=== PATIENT | female | born 1955 | race Caucasian/White ===

== ENCOUNTER 2022-04-11 09:14 | Emergency (ER) | payer MEDICARE, SELFPAY ==
[2022-04-11 09:29] VITALS: PULSE 70; RESP 18; TEMP 36.8; O2SAT 95
[2022-04-11 09:30] VITALS: BP 130/41; PULSE 67; RESP 17; O2SAT 93
[2022-04-11] MEDS: dexamethasone 10 mg/mL INJ IM (09:41)
[2022-04-11] MEDS: orphenadrine 30 mg/mL Inj 2 mL 60 MG IM (09:41)
[2022-04-11] MEDS: ketorolac 30 mg/mL INJ IM (09:41)
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
[2022-04-11 11:31] VITALS: BP 104/49; PULSE 55; RESP 16; O2SAT 93
[2022-04-11 11:36] VITALS: PULSE 64; RESP 16; O2SAT 97
--- NOTE | 2022-04-14 10:33 | DCPLANNER ---
education general manager had message to speak with patient about getting established with a primary care physician. education general manager unable to reach patient at this time.
== END 2022-04-11 11:38 | disposition home or self-care (01) ==
PROVIDERS: Emergency Provider Family Medicine
DX: S39.012A Strain of muscle, fascia and tendon of lower back, initial encounter (principal); X50.0XXA Overexertion from strenuous movement or load, initial encounter; Z87.891 Personal history of nicotine dependence
CPT/HCPCS: 96372; 99284; J1100; J1885; J2360

== ENCOUNTER 2022-04-13 01:51 | Inpatient (IN) | payer MEDICARE, OTHER, SELFPAY ==
[2022-04-13] VITALS (47 sets, daily range): BP systolic 67–132; BP diastolic 40–94; PULSE 38–93; RESP 8–24; TEMP 36.8; O2SAT 81–99; BMI 24.9
--- NOTE | 2022-04-13 01:52 | XRR_ITS ---
PROCEDURE INFORMATION: Exam: XR Chest Exam date and time: 04/13/2022 2:44 AM Age: 67 years old Clinical indication: Pain; Chest pressure; Additional info: Cp TECHNIQUE: Imaging protocol: Radiologic exam of the chest. Views: 1 view. COMPARISON: No relevant prior studies available. FINDINGS: Lungs: Suggestion of mild peribronchial cuffing. Scattered fluffy pulmonary infiltrates concerning for pneumonia or pulmonary lesions. Mild bibasilar opacities may represent superimposition of breast shadows, inflammation, or infection. Pleural spaces: No large pleural effusion. No pneumothorax. Heart/Mediastinum: The cardiomediastinal silhouette appears grossly unremarkable. Vasculature: The thoracic aorta is tortuous and atherosclerotic. Bones/joints: Unremarkable. Other findings: No consolidative opacity. XR/XR chest 1V portable [id number] IMPRESSION: 1. Suggestion of mild peribronchial cuffing. 2. Scattered pulmonary infiltrates may represent pneumonia or pulmonary lesions. 3. Otherwise, no acute radiographic findings in the chest.
--- NOTE | 2022-04-13 01:52 | ECG_ITS ---
[facility] Test Date: 2022-04-13 Pat Name: Tosha Perry Department: Room: Gender: Female Area Development Consultant: : 1955 Requested By: Coral Oconnor Order Number: [id number] Mirela MD: Sherine Greene M.D. Measurements Intervals [place] Rate: 73 P: 75 OR: 154 QRS: 64 QRSD: 90 T: 54 QT: 402 QTc: 444 Interpretive Statements SINUS RHYTHM WITH OCCASIONAL SUPRAVENTRICULAR PREMATURE COMPLEXES No previous ECG available for comparison Electronically Signed On 04-14-2022 9:22:31 INDUSTRIAL MANUFACTURING TECHNICIAN by Sherine Greene M.D. [id number]
--- NOTE | 2022-04-13 01:57 | ED_ITS ---
HPI - Chest Pain General: Chief Complaint: Chest Pain Stated Complaint: CP, SOB Time Seen by Provider: 04/13/22 01:51 Source: patient and EMS Mode of arrival: EMS Limitations: no limitations History of Present Illness: 67-year-old female who is here by EMS she states she had chest pain along with back pain and a slight cough she does have chronic back pain and recently moved here does not have any pain management here. She denies any worsening proving factors she had some slight hypoxia here she is writhing around in bed yelling and has pain everywhere its hard to really distinguish where her pains actually at. Associated symptoms: Reports dyspnea; Deny abdominal pain, fever(s), nausea or vomiting Review of Systems Const: Denies: fever(s), chills, body aches or change in appetite Eyes: Denies: blurry vision or eye discomfort ENMT: Denies: throat pain or dental pain Card: Reports: chest pain Resp: Reports: dyspnea and non-productive cough GI: Denies: abdominal pain, nausea, vomiting or diarrhea : Denies: dysuria Musc: Denies: neck pain or back pain Skin/Breast: Denies: rash Neuro: Denies: headache(s) Psych: Denies: depression Jl/Lymph: Denies: easy bruising All/Imm: Denies: urticaria PFSH ED PFSH: Medical History Chronic back pain Social History Smoking and tobacco status: former smoker Alcohol intake: current Alcohol intake frequency: holidays/special occasions only Physical Exam Const: COMMON NORMALS: no acute distress and patient oriented x3 GENERAL APPEARANCE: anxious and ill appearing HENMT: COMMON NORMALS: normocephalic and atraumatic HEAD & SCALP: normocephalic and atraumatic Eye: COMMON NORMALS: Equal, round and reactive pupils present and EOMs intact bilaterally PUPIL: Yes Equal, round and reactive pupils present Neck/C-Spine: COMMON NORMALS: full ROM and supple Chest: COMMONS NORMALS: normal inspection of the chest and normal palpation of entire chest wall Resp: COMMON NORMALS: No retractions and No use of accessory muscles EFFORT & INSPECTION: Yes labored AUSCULTATION: rales Cardio: COMMON NORMALS: regular rate, regular rhythm and No murmurs present (Cardio) RATE: regular rate RHYTHM: regular rhythm GI: COMMON NORMALS: Normal to inspection, nondistended, normoactive bowel sounds present, Soft to palpation, non-tender and no masses PALPATION: Yes Soft to palpation Extremity: COMMON NORMALS: normal to inspection and full ROM Neuro: COMMON NORMALS: patient oriented x3, moves all extremities and no focal motor deficits Psych: COMMON NORMALS: mental status grossly normal, Normal thought process present and cooperative THOUGHT PROCESS: Normal thought process present Skin: COMMON NORMALS: no rashes or lesions noted and no wounds GENERAL SKIN EXAM: no rashes or lesions noted Course Vital Signs: Vital signs: Vital Signs Pulse Rate 69 04/13/22 05:11 Respiratory Rate 22 H 04/13/22 05:11 Blood Pressure 67/40 04/13/22 05:11 Pulse Oximetry 94 04/13/22 05:11 Oxygen Delivery Me thod 04/13/22 05:11 Oxygen Flow Rate 6 04/13/22 05:11 MDM - Chest Pain Medical Decision Making Patient presents here with chest and back pain originally patient was flopping in the bed and was unable to stay still for any IV placement I did have to sedate her for IV placement and then billable CT scanner had to give her Haldol as she was still screaming and moving in the room CT scan shows a multifocal pneumonia she is COVID-positive likely causing this she does have hypoxia spoke to the hospitalist will admit to ICU. Lab Data 04/13/22 03:56 04/13/22 02:06 Radiology Impressions Chest X-Ray 04/13/22 01:52 IMPRESSION: 1. Suggestion of mild peribronchial cuffing. 2. Scattered pulmonary infiltrates may represent pneumonia or pulmonary lesions. 3. Otherwise, no acute radiographic findings in the chest. Chest/Abdomen/Pelvis CT 04/13/22 02:47 IMPRESSION: 1. Scattered pulmonary infiltrates in both lungs compatible with multifocal pneumonia. 2. Small nodular opacities are noted, more prominent in the left lower lobe measuring approximally 1.1 cm. A short-term follow-up within 3 months is recommended for further evaluation according to Fleischner criteria. 3. Coronary atherosclerosis and small pericardial effusion. 4. Cardiomegaly. IMPRESSION: 1. Status post cholecystectomy. 2. Gastric distension. Please correlate with prior imaging and endoscopy if clinically warranted. 3. Thickening of the duodenal and the proximal bowel mehta may represent duodenitis and or enteritis in the appropriate clinical setting. 4. Suspected small left adrenal nodule. 5. Atherosclerotic calcifications of the abdominal aorta and its branches. 6. Distended urinary bladder. 7. Post kyphoplasty of the L4 and L5 vertebral bodies. Laboratory Results WBC 5.2 10^3/uL (4.0-10.0) 04/13/22 04:49 Corrected WBC Cancelled 04/13/22 03:56 RBC 3.69 10^6/uL (4.1-5.3) L 04/13/22 04:49 Hgb 9.0 g/dL (11.5-15.3) L 04/13/22 04:49 Hct 29.8 % (37.0-47.0) L 04/13/22 04:49 MCV 80.8 fl (81-99) L 04/13/22 04:49 MCH 24.4 pg (28.0-34.0) L 04/13/22 04:49 MCHC 30.2 g/dL (30.0-36.0) 04/13/22 04:49 RDW 17.7 % (12.1-15.1) H 04/13/22 04:49 Plt Count 257 10^3/cmm (130-400) 04/13/22 04:49 MPV 9.7 fL (7.4-10.4) 04/13/22 04:49 Gran % Cancelled 04/13/22 03:56 Neut % (Auto) 79.7 % 04/13/22 04:49 Lymph % (Auto) 16.4 % 04/13/22 04:49 [place] % (Auto) 3.5 % 04/13/22 04:49 Eos % (Auto) 0.2 % 04/13/22 04:49 Baso % (Auto) 0.0 % 04/13/22 04:49 Neut # (Auto) 4.14 10^3/uL (1.8-7.7) 04/13/22 04:49 Lymph # (Auto) 0.9 10^3/uL (0.8-4.8) 04/13/22 04:49 [place] # (Auto) 0.2 10^3/uL (0.2-0.9) 04/13/22 04:49 Eos # (Auto) 0.0 10^3/uL (0.0-0.8) 04/13/22 04:49 Baso # (Auto) 0.0 10^3/uL (0.0-0.1) 04/13/22 04:49 Absolute Gran (auto) Cancelled 04/13/22 03:56 Nucleated RBC % (auto) 0 % 04/13/22 04:49 Nucleated RBCs # 0.0 /100WBC 04/13/22 04:49 PT 12.50 SECONDS (12.1-14.9) 04/13/22 03:56 INR 0.90 (0.8-1.2) 04/13/22 03:56 Specimen Type Arterial 04/13/22 04:51 Sample Site Brachial, right 04/13/22 04:51 ABG pH 7.37 (7.35-7.45) 04/13/22 04:51 ABG pCO2 42.1 mmHg (35-45) 04/13/22 04:51 ABG pO2 62.8 mmHg (80.0-100.0) L 04/13/22 04:51 ABG HCO3 24.3 mmol/L (22-26) 04/13/22 04:51 ABG Base Excess -1.0 mmol/L (-2.0-2.0) 04/13/22 04:51 Shahzad Test N/a 04/13/22 04:51 Hematocrit 26.4 % (37-47) L 04/13/22 04:51 O2 Delivery Device Nc 04/13/22 04:51 O2 Liters/Min 6.0 % 04/13/22 04:51 FiO2 45.0 % 04/13/22 04:51 Secondary School Registrar ID Alewe 04/13/22 04:51 Sodium 140 mmol/L (136-145) 04/13/22 02:06 Potassium 3.3 mmol/L (3.5-5.1) L 04/13/22 02:06 Chloride 101 mmol/L (98-107) 04/13/22 02:06 Carbon Dioxide 23 mmol/L (22-29) 04/13/22 02:06 Anion Gap 19.3 (5-19) H 04/13/22 02:06 BUN 45 mg/dL (8-23) H 04/13/22 02:06 Creatinine 2.4 mg/dL (0.5-0.9) H 04/13/22 02:06 GFR Calculation 20.1 mL/min (90-130) L 04/13/22 02:06 Glucose 95 mg/dL (65-115) 04/13/22 02:06 Calculated Osmolality 301 mOsm/kg (285-295) H 04/13/22 02:06 Calcium 8.4 mg/dL (8.5-10.5) L 04/13/22 02:06 Total Bilirubin 0.2 mg/dL (0.15-1.2) 04/13/22 02:06 AST 33 U/L (0-32) H 04/13/22 02:06 ALT 16 U/L (0-33) 04/13/22 02:06 Alkaline Phosphatase 99 U/L (35-105) 04/13/22 02:06 Troponin T Baseline 31 ng/L (0-10) H 04/13/22 02:06 NT-Pro-B Natriuret Pep 2247 pg/mL (0-125) H 04/13/22 02:56 Total Protein 7.1 g/dL (6.6-8.7) 04/13/22 02:06 Albumin 3.8 g/dL (3.5-5.2) 04/13/22 02:06 Globulin 3.3 g/dL (1.3-4.6) 04/13/22 02:06 Influenza Type A Ag negative (Negative) 04/13/22 04:15 Influenza Type B Ag negative (Negative) 04/13/22 04:15 SARS-CoV-2 Ag (Rapid) positive (Negative) 04/13/22 04:15 Critical Care Time Critical Care Time: Critical Care Time: Yes Total Critical Care Time: 35 Attestation: The high probability of a clinically significant, sudden or life threatening deterioration of the patient's resp system(s) required my full and direct attention, intervention and personal management. The critical care time is as shown. This time is in addition to time spent performing any reported procedures but includes the following: [x] Data and vital sign review and interpretation [x] Patient assessment, examination and intervention [x] Documentation [x] Medication orders and management Discharge Plan Discharge Patient Disposition: Admitted As Inpatient Admit Provider: Bernard Ray Clinical Impression: COVID-19, Acute respiratory failure with hypoxemia Condition: Stable Coding Level of Care Code ED Dietitian for Chg Fwd Exam Comprehensive
[2022-04-13] MEDS: LORazepam 2 mg/mL INJ 1 mL IM (02:11)
[2022-04-13] MEDS: ondansetron 2 mg/ML SDV 2 mL 4 MG IVP (02:19)
[2022-04-13] MEDS: HYDROmorphone 1 mg/mL INJ 1 mL 0.5 MG IVP (02:30)
[2022-04-13 02:33] LABS: Alanine Aminotransferase 16 U/L (0-33); Albumin Level 3.8 g/dL (3.5-5.2); Alkaline Phosphatase 99 U/L (35-105); Anion Gap 19.3 (5-19); Aspartate Amino Transferase 33 U/L (0-32); Blood Urea Nitrogen 45 mg/dL (8-23); Calcium 8.4 mg/dL (8.5-10.5); Carbon Dioxide 23 mmol/L (22-29); Chloride 101 mmol/L (98-107); Globulin 3.3 g/dL (1.3-4.6); Glomerular Filtration Rate 20.1 mL/min (90-130); Glucose 95 mg/dL (65-115); Osmolality Calculated 301 mOsm/kg (285-295); Potassium 3.3 mmol/L (3.5-5.1); Sodium 140 mmol/L (136-145); Total Bilirubin 0.2 mg/dL (0.15-1.2); Total Protein 7.1 g/dL (6.6-8.7)
[2022-04-13 02:35] LABS: Troponin(5th) Baseline 31 ng/L (0-10)
--- NOTE | 2022-04-13 02:47 | CTR_ITS ---
PROCEDURE INFORMATION: Exam: CT Chest Without Contrast; Diagnostic Exam date and time: 04/13/2022 3:00 AM Age: 67 years old Clinical indication: Abdominal pain; Generalized; Chest pressure; Patient HX: W/o contrast - creat 2.4. PT sedated due to combativeness. New PT - HX unknown; Additional info: Cp TECHNIQUE: Imaging protocol: Diagnostic computed tomography of the chest without contrast. Radiation optimization: All CT scans at this facility use at least one of these dose optimization techniques: automated exposure control; mA and/or kV adjustment per patient size (includes targeted exams where dose is matched to clinical indication); or iterative reconstruction. COMPARISON: CR (CHEST, ) 04/13/2022 2:44 AM RADIATION DOSE METRICS: Total DLP (mGy-cm): 817.12 FINDINGS: Lungs: Diffuse small pulmonary infiltrates throughout both lungs compatible with multifocal pneumonia. There is a more prominent nodular opacity in the left lower lobe measuring approximately 1.1 cm, (series 3, image 36). Pleural spaces: Unremarkable. No pneumothorax. No pleural effusion. Heart: Small pericardial effusion measuring 4 mm, (series 3, image 38). There is cardiomegaly and left atrial enlargement. Coronary arteries: Extensive atherosclerotic disease of the coronary arteries. Lymph nodes: Small mediastinal lymph nodes are nonspecific. Vasculature: There are atherosclerotic calcifications of the aortic arch and origin of the arch vessels. Mild calcifications of the aortic root and aortic valve leaflets. The thoracic aorta is tortuous and atherosclerotic. Bones/joints: There are degenerative changes of the thoracic spine. There are degenerative changes of the shoulder joints. Soft tissues: Unremarkable. PROCEDURE INFORMATION: Exam: CT Abdomen And Pelvis Without Contrast Exam date and time: 04/13/2022 3:00 AM Age: 67 years old Clinical indication: Abdominal pain; Generalized; Chest pressure; Patient HX: W/o contrast - creat 2.4. PT sedated due to combativeness. New PT - HX unknown; Additional info: Cp TECHNIQUE: Imaging protocol: Computed tomography of the abdomen and pelvis without contrast. Radiation optimization: All CT scans at this facility use at least one of these dose optimization techniques: automated exposure control; mA and/or kV adjustment per patient size (includes targeted exams where dose is matched to clinical indication); or iterative reconstruction. COMPARISON: CR (CHEST, ) 04/13/2022 2:44 AM RADIATION DOSE METRICS: Total DLP (mGy-cm): 817.12 FINDINGS: Liver: Mild fatty changes of the liver. No hepatic focal lesions. Gallbladder and bile ducts: Status post cholecystectomy. Pancreas: Mild atrophy of the pancreas. Spleen: The spleen appears grossly unremarkable. Adrenal glands: The adrenal glands appear grossly unremarkable although there is a suspected left adrenal nodule measuring approximately 1.6 by 1.1 cm, (series 9, image 44). Kidneys and ureters: Normal. No hydronephrosis. Stomach and bowel: The stomach is distended with food particles and fluid. The proximal small bowel contains fluid but no evidence of significant small-bowel dilation. Mild thickening of the duodenal mehta. Mild thickening of the proximal bowel mehta. The large bowel is nondistended. Appendix: No evidence of appendicitis. Intraperitoneal space: Unremarkable. No free air. No significant fluid collection. Vasculature: There are atherosclerotic calcifications of the abdominal aorta and its branches. Lymph nodes: Unremarkable. No enlarged lymph nodes. Urinary bladder: Markedly distended urinary bladder. Reproductive: The uterus is not visualized. Bones/joints: There are advanced degenerative changes of the lumbar spine, worse at L2-L3 where there is mild retrolisthesis of L2 on L3 and decreased disc space height and disc vacuum phenomenon. Kyphoplasty changes noted at L4 and L5 vertebral bodies. Soft tissues: Unremarkable. CT/[place] [id number] IMPRESSION: 1. Scattered pulmonary infiltrates in both lungs compatible with multifocal pneumonia. 2. Small nodular opacities are noted, more prominent in the left lower lobe measuring approximally 1.1 cm. A short-term follow-up within 3 months is recommended for further evaluation according to Fleischner criteria. 3. Coronary atherosclerosis and small pericardial effusion. 4. Cardiomegaly. IMPRESSION: 1. Status post cholecystectomy. 2. Gastric distension. Please correlate with prior imaging and endoscopy if clinically warranted. 3. Thickening of the duodenal and the proximal bowel mehta may represent duodenitis and or enteritis in the appropriate clinical setting. 4. Suspected small left adrenal nodule. 5. Atherosclerotic calcifications of the abdominal aorta and its branches. 6. Distended urinary bladder. 7. Post kyphoplasty of the L4 and L5 vertebral bodies.
[2022-04-13] MEDS: sodium chloride 0.9% 1,000 ML 999 ML IV (03:00)
[2022-04-13] MEDS: haloperidol inj 5 mg/mL INJ 1 mL IVP (03:00)
[2022-04-13 03:55] LABS: NT Pro B Type Natriuretic Pept 2247 pg/mL (0-125)
--- NOTE | 2022-04-13 04:32 | ECG_ITS ---
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 Measurements Intervals [place] Rate: 77 P: 79 MI: 150 QRS: 77 QRSD: 88 T: 73 QT: 378 QTc: 428 Interpretive Statements SINUS RHYTHM WITH SINUS ARRHYTHMIA Compared to ECG 04/13/2022 02:08:45 No significant changes Electronically Signed On 04-14-2022 20:39:16 ASPHALT DISTRIBUTOR OPERATOR by Sherine Greene M.D. [email or web address] ohio regional [email or web address]/store/OM/[id number]
[2022-04-13 04:39] LABS: Influenza A by IFA negative (Negative); Influenza B by IFA negative (Negative)
[2022-04-13 04:40] LABS: SARS Covid-2 Antigen positive (Negative)
[2022-04-13 04:55] LABS: Eosinophils % 0.2 %; Hematocrit 29.8 % (37.0-47.0); Lymphocytes # 0.9 10^3/uL (0.8-4.8); Lymphocytes % 16.4 %; Mean Corpuscular HGB Conc 30.2 g/dL (30.0-36.0); Mean Corpuscular Hemoglobin 24.4 pg (28.0-34.0); Mean Corpuscular Volume 80.8 fl (81-99); Mean Platelet Volume 9.7 fL (7.4-10.4); Monocytes # 0.2 10^3/uL (0.2-0.9); Monocytes % 3.5 %; Neutrophils # 4.14 10^3/uL (1.8-7.7); Neutrophils % 79.7 %; Nucleated Red Blood Cells % 0 %; Platelet Count 257 10^3/cmm (130-400); Red Blood Count 3.69 10^6/uL (4.1-5.3); Red Cell Distribution Width 17.7 % (12.1-15.1); White Blood Count 5.2 10^3/uL (4.0-10.0)
[2022-04-13] MEDS: cefTRIAXone 1,000 MG in sodium chloride 0.9% (plus) 50 ML 100 MG IV (05:02)
[2022-04-13 05:03] LABS: ABG PCO2 42.1 mmHg (35-45); ABG PH Result 7.37 (7.35-7.45); Arterial Blood Gas Hematocrit 26.4 % (37-47); Blood Gas Sample Site Brachial, right; Blood Gas Sample Type Arterial; HCO3 ABG 24.3 mmol/L (22-26); Oxygen Device NC; PO2 ABG 62.8 mmHg (80.0-100.0)
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
[2022-04-13] MEDS: azithromycin 500 MG in sodium chloride 0.9% 250 ML 250 MG IV (05:59)
[2022-04-13 06:08] LABS: NT Pro B Type Natriuretic Pept 2121 pg/mL (0-125); Procalcitonin 0.37 ng/mL (0-0.5)
[2022-04-13 06:18] LABS: C Reactive Protein 10.4 mg/L (0.0-4.9)
[2022-04-13 06:40] LABS: Troponin 5 2HR 32.12 ng/L (0-10)
[2022-04-13 06:42] LABS: Troponin 5 2HR Delta 1.12 ABS# (0-10)
[2022-04-13 06:54] LABS: Erythrocyte Sedimentation Rate 35 mm/hr (0-15)
[2022-04-13 07:12] LABS: Chol HDL Ratio 4.13 mg/dL (0.0-4.40); Cholesterol 223 mg/dL (0-200); Ferritin 62 ng/mL (15-150); HDL Cholesterol 54 mg/dL (60-100); Iron 14 ug/dL (37-145); LDL Cholesterol Calculated 135 mg/dL (50-129); Percent Saturation 3.9 % (20-50); Total Iron Binding Capacity 358 mcg/dl; Triglycerides 170 mg/dL (0-150); Unsaturated Iron Binding 344 ug/dL (112-347); Vitamin B12 727 pg/mL (232-1245)
[2022-04-13 07:13] LABS: Acetaminophen < 5.0 ug/mL (10-30); Alcohol Level < 10 mg/dL (0-10); Salicylate < 0.3 mg/dL (3-10)
[2022-04-13 07:29] LABS: Estmated Average Glucose 120; Hemoglobin A1C 5.8 % (4.0-6.0)
[2022-04-13] MEDS: dexamethasone 10 mg/mL INJ 6 MG IVP (07:32)
[2022-04-13] MEDS: pantoprazole 40 mg SDV IVP (07:32)
[2022-04-13] MEDS: sodium chloride 0.9% 1,000 ML 125 ML IV ×3 (07:33→23:41)
[2022-04-13 07:37] LABS: Folate Level > 20.0 ng/mL (4.8-37.3)
[2022-04-13] MEDS: albuterol 2.5 mg/3 mL Neb 3 MG INHALATION ×5 (08:20→23:57)
[2022-04-13] MEDS: budesonide 0.5 mg/2 mL Neb INHALATION ×2 (08:20→19:52)
[2022-04-13] MEDS: ipratropium 0.5 mg/2.5 mL Neb 3 MG INHALATION ×5 (08:21→23:58)
[2022-04-13 08:32] LABS: Add Urine Microscopic? NO; Charge for UA Resulting for Rev
--- NOTE | 2022-04-13 08:32 | ECG_ITS ---
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 Measurements Intervals [place] Rate: 75 P: 0 OR: 0 QRS: 69 QRSD: 88 T: 62 QT: 405 QTc: 455 Interpretive Statements Multifocal atrial rhythm ABNORMAL RHYTHM ECG Compared to ECG 04/13/2022 04:32:57 Sinus rhythm no longer present Sinus arrhythmia no longer present Electronically Signed On 04-14-2022 20:39:41 TRADE SALES ASSISTANT by Sherine Greene M.D. [id number]
[2022-04-13 08:40] LABS: Urine Appearance Clear (CLEAR); Urine Color Colorless (Yellow); pH Urine 6 (5-7)
[2022-04-13 08:41] LABS: Bilirubin Urine Neg (Negative); Blood Urine Neg (Negative); Glucose Urine UA Norm (Normal); Ketones Urine Negative (Negative); Leukocyte Esterase Urine Negative (Negative); Nitrate Urine Negative (Negative); Protein Urine Neg (Negative); Urobilinogen Urine Norm (Negative)
[2022-04-13 08:48] LABS: Amphetamines Screen Urine Negative (Negative); Barbiturates Screen Urine Negative (Negative); Benzodiazepines Screen Urine Negative (Negative); Cocaine Screen Urine Negative (Negative); Opiate Screen Urine Positive (Negative); PCP Screen Urine Negative (Negative); THC Screen Urine Positive (Negative)
[2022-04-13] MEDS: enoxaparin 40 mg/0.4 mL Syringe SUBCUT (08:52)
--- NOTE | 2022-04-13 09:02 | PC.PHAR ---
pt, pts boyfriend and [facility]ts medications-pt states she was taking 80mg lasix daily [facility] 04/06/22 40mg daily pt didnt have medication bottle with her-pt brought in med bottle dated 01/15/22 14d/s for doxycycline mono 100mg bid states she restarted taking it-pt didnt bring in med bottle for kcl 10meq bid prn [facility] states last filled 04/03/22 30d/s and prozac 20mg daily last filled 04/03/22-[facility] states they filled a oxycodone ir 5mg bid prn on 02/13/22 30d/s states not filled since-[facility] also states norco 5/325mg 1-2 tabs q4-6h prn states only dispensed 20 tabs-notes are made in the pharmacy comments
[2022-04-13] MEDS: dexmedetomidine 400 MCG in sodium chloride 0.9% (100 ml) 100 ML 11.97 MCG IV (09:43)
[2022-04-13 10:38] LABS: Lactate (Lactic Acid level) 1.6 mmol/L (0.5-2.2)
[2022-04-13 10:39] LABS: Troponin 5 6HR 30.18 ng/L (0-10)
[2022-04-13 10:40] LABS: Troponin 5 6HR Delta -0.82 ng/L (0-12)
[2022-04-13] MEDS: levothyroxine 100 mcg SDV 75 MCG IVP (11:10)
[2022-04-13] MEDS: LORazepam 2 mg/mL INJ 1 mL IVP ×2 (11:58→17:32)
--- NOTE | 2022-04-13 12:34 | PC.SLP ---
Multiple attempts made to assess patient per orders. Patient is unable to be aroused to participate in an evaluation. Will continue to monitor and assess when appropriate.
[2022-04-13] MEDS: lidocaine 1% 5 ML in potassium chloride premix 100 ML 50 ML IV (14:08)
--- NOTE | 2022-04-13 14:18 | PM.ACPR ---
Procedure/Consent Time out: Time Out Performed: Yes Consent: Consent for Procedure: Consent obtained from other (indicate) Acute Procedures Central Line Placement: Right Femoral: Time out performed: Yes Patient placed on monitor/pulse ox: Yes MD prep: mask, gown and gloves Central line prep: Chlorhexidine scrub and sterile drapes applied Local anesthesia used: lidocaine 1% Amount of anesthesia used (ml): 10 Ultrasound used for placement: Yes Central line lumen inserted: triple Post procedure: sutured in place, good blood return, all ports aspirated, flushed, capped and sterile dressing applied Patient tolerated procedure: well and no complications Complications: none Epistaxis Control: Time out performed: Yes
--- NOTE | 2022-04-13 14:21 | P.PN_ITS ---
Subjective Medications: Medication Review Details: Generic Name Dose Route Start Last Admin Trade Name Freq PRN Reason Stop Dose Admin Albuterol Sulfate 3 mg 04/13/22 08:00 04/13/22 11:17 Albuterol 2.5 Mg /3 Ml Neb INHALATION 3 mg Q4H.RESPIRATORY S CH Administration Budesonide 0.5 mg 04/13/22 08:00 04/13/22 08:20 Budesonide 0.5 M g/2 Ml Neb INHALATION 0.5 mg BID.RESPIRATORY S CH Administration Dexamethasone 6 mg 04/13/22 07:00 04/13/22 07:32 Dexamethasone 10 Mg/Ml Inj IVP 6 mg Q24H KIM Administration Enoxaparin Sodium 40 mg 04/13/22 08:00 04/13/22 08:52 Enoxaparin 40 Mg /0.4 Ml Syringe SUBCUT 40 mg Q24H KIM Administration Sodium Chloride 1,000 mls @ 75 ml s/hr 04/13/22 06:22 04/13/22 07:33 Sodium Chloride 0.9% IV 125 mls/hr .[id number] KIM Administration Dexmedetomidine HC l 400 mcg/ 104 mls @ 0 mls/h r 04/13/22 09:15 04/13/22 09:43 Sodium Chloride IV 0.7 mcg/kg/hr .Q0M KIM 11.97 mls/hr Administration Protocol Per Protocol Ipratropium Bromid e 3 mg 04/13/22 08:00 04/13/22 11:16 Ipratropium 0.5 Mg/2.5 Ml Neb INHALATION 3 mg Q4H.RESPIRATORY S CH Administration Levothyroxine Sodi um 75 mcg 04/13/22 09:15 04/13/22 11:10 Levothyroxine 10 0 Mcg Sdv IVP 75 mcg DAILY KIM Administration Lorazepam 2 mg 04/13/22 11:25 04/13/22 11:58 Lorazepam 2 Mg/M l Inj 1 Ml IVP 2 mg Q4H PRN Administration ANXIETY Pantoprazole Sodiu m 40 mg 04/13/22 07:00 04/13/22 07:32 Pantoprazole 40 Mg Sdv IVP 40 mg Q12H KIM Administration Sucralfate 1 gm 04/13/22 07:00 04/13/22 07:33 Sucralfate 1 Gm Tablet PO Not Given BIDAC KIM Vitals/I&O/Wt Last Vital Signs Temp 98.2 F 04/13/22 07:47 Pulse 47 L 04/13/22 14:00 Resp 15 04/13/22 14:00 BP 108/50 04/13/22 14:00 Pulse Ox 90 04/13/22 12:00 O2 Del Method 04/13/22 11:20 O2 Flow Rate 6 04/13/22 11:20 04/12/22 04/13/22 04/13/22 22:59 06:59 14:59 Intake Total 1311.811 / 1311.811 Output Total 3850 / 3850 Balance 1311.811 / 1311.811 -3850 / -3850 Weight last 48 hrs Weight 65.771 kg Physical Exam Narrative: Patient is currently sedated on precedex,as well as has received a dose of ativan. HENMT: COMMON NORMALS: normocephalic and atraumatic HEAD & SCALP: normocephalic and atraumatic Resp: COMMON NORMALS: clear to auscultation bilaterally EFFORT & INSPECTION: Yes symmetric chest movement AUSCULTATION: clear to auscultation bilaterally Cardio: COMMON NORMALS: regular rate, regular rhythm, S1 normal heart sound present, S2 normal heart sound present, No gallops present (Cardio), No murmurs present (Cardio), No rub (Cardio) and Peripheral pulses 2+ throughout RATE: regular rate RHYTHM: regular rhythm HEART SOUNDS: S1 normal heart sound present and S2 normal heart sound present PERIPHERAL PULSES: Peripheral pulses 2+ throughout GI: COMMON NORMALS: Normal to inspection, nondistended, normoactive bowel sounds present, Soft to palpation, non-tender, No hepatosplenomegaly present and no masses AUSCULTATION: Yes normoactive bowel sounds PALPATION: Yes Soft to palpation and Yes No hepatosplenomegaly present RECTAL EXAM: deferred Extremity: COMMON NORMALS: no clubbing, cyanosis or edema and no pedal edema Data 04/13/22 04:49 04/13/22 02:06 Micro: Microbiology 04/13/22 08:21 MRSA Culture - Final Nose 04/13/22 04:53 Blood Culture - Preliminary Blood SPECIMEN COLLECTED 04/13/22 04:50 Blood Culture - Preliminary Blood SPECIMEN COLLECTED A&P Assessment and plan (1) Multifocal pneumonia: (2) Hypotension: (3) AMS (altered mental status): (4) COVID-19: Plan 67 year old female with a past medical history of chronic low back pain, who presents to [facility] due to complaints of chest pain, shortness of breath.Patient was extremely restless when she came in for which she received 5 mg of Haldol, 2 mg of Ativan, 0.5 mg of Dilaudid.Which likely dropped her blood pressure.Patient received fluid bolus as well as was placed on levophed drip. On arrival she was alert and oriented, following commands, very restless, very agitated, complaining of back pain. Currently she is being managed for: Assessment : Acute Metabolic encephalopathy 2/2 Drug use, PNA,ZAHRA, Dehydration COVID -19-PNA Hypoxia secondary to COVID-19 pneumonia ZAHRA ON CKD likely Prerenal ZAHRA 2/2 Dehydration, currently in polyuric phase Dehydration Hypovolemic Shock 2/2 Dehydration Anemia Chronic Back Pain Lt Lower Lobe Pulmonary Nodule : 1.1 Cm: Follow Up repeat C.T Chest in 3 Months. Plan : CT chest abdpel wo?: Scattered pulmonary infiltrates in both lungs compatible with multifocal pneumonia. Small nodular opacities are noted, more prominent in the left lower lobe measuring approximally 1.1 cm. Blood Culture : D-dimer ESR:35 CRP: MRSA :PCR :Negative Sputum gram stain and culture TSH: 0.7 Will possibly do C/T Head without Contrast : Random urine sodium Random urine creatinine Random urine protein Fena Monitor x-ray chest Monitor ABG My clinical suspicion for sepsis is low: Hypotension is due to dehydration, ZAHRA as well, her lactic acid is normal, procalcitonin is normal, has no white count,AMS is likely due to medication effect as well as due to drug use: utox is positive for marijuana.With possible contributions from [facility]. Continue dexamethasone 6 milligrams IV daily Continue DuoNebs, budesonide inhaler, Currently on ceftriaxone azithromycin Continue levothyroxine IV for now, will switch to p.o. once he is able to take oral Continue IV hydration with normal saline 75 cc an hour Monitor intake output charting. Avoid nephrotoxic's. Patient had distended bladder on CT scan, post Brandt catheter placement, 900 cc urine was drained. Currently she is maintaining a robust urine output. Patient needed, Precedex as well as 1 dose of Ativan, for restlessness, and agitation.Precedex drip was later turned off As she became bradycardic, she had to also be given 0.5 mg atropine one-time dose, as the heart rate was dipping into the 30s, fortunately she was maintaining a decent MAP at that time.Post atropine dose heart rate picked up. CODE STATUS: Full code DVT prophylaxis on Lovenox Attestations Medical Necessity Statement*: Patient is to be in hospital for management of altered mental status. Time Spent in Patient Care: Greater than 35 minutes (>than 50% of time spent in counselling and/or direct pt care on unit) . Critical Care Time: The high probability of a clinically significant, sudden or life threatening deterioration of the patient's [] system(s) required my full and direct attention, intervention and personal management. The critical care time is as shown. This time is in addition to time spent performing any reported procedures but includes the following: [x] Data and vital sign review and interpretation [x] Patient assessment, examination and intervention [x] Documentation [x] Medication orders and management Critical Care Time (min): 60 Coding Level of Care Code Acute Big Data Developer for g Fwd Exam Detailed Diagnoses Multifocal pneumonia J18.9 Hypotension I95.9 AMS (altered mental status) R41.82 COVID-19 U07.1
[2022-04-13] MEDS: atropine 0.1 mg/mL Syr 10 mL 0.5 MG IVP (15:19)
[2022-04-13] MEDS: sodium chloride 0.9% 500 ML IV (15:19)
[2022-04-14] VITALS (40 sets, daily range): BP systolic 89–147; BP diastolic 44–84; PULSE 36–90; RESP 12–36; TEMP 35.8–36.7; O2SAT 84–100
[2022-04-14] MEDS: albuterol 2.5 mg/3 mL Neb 3 MG INHALATION ×3 (03:28→12:21)
[2022-04-14] MEDS: ipratropium 0.5 mg/2.5 mL Neb 3 MG INHALATION ×3 (03:28→12:20)
[2022-04-14 05:19] LABS: Hematocrit 27.3 % (37.0-47.0); Hemoglobin 8.3 g/dL (11.5-15.3); Mean Corpuscular HGB Conc 30.4 g/dL (30.0-36.0); Mean Corpuscular Hemoglobin 24.3 pg (28.0-34.0); Mean Corpuscular Volume 80.1 fl (81-99); Mean Platelet Volume 9.9 fL (7.4-10.4); Platelet Count 235 10^3/cmm (130-400); Red Blood Count 3.41 10^6/uL (4.1-5.3); Red Cell Distribution Width 17.8 % (12.1-15.1); White Blood Count 13.5 10^3/uL (4.0-10.0)
[2022-04-14] MEDS: azithromycin 500 MG in sodium chloride 0.9% 250 ML 250 MG IV (05:22)
[2022-04-14 05:26] LABS: D Dimer 2.97 ug/mIFEU (0-0.59)
[2022-04-14] MEDS: cefTRIAXone 1,000 MG in sodium chloride 0.9% (plus) 50 ML 100 MG IV (05:26)
[2022-04-14 05:33] LABS: Alanine Aminotransferase 12 U/L (0-33); Albumin Level 3.3 g/dL (3.5-5.2); Alkaline Phosphatase 89 U/L (35-105); Anion Gap 14.7 (5-19); Aspartate Amino Transferase 23 U/L (0-32); Blood Urea Nitrogen 33 mg/dL (8-23); C Reactive Protein 172.9 mg/L (0.0-4.9); Calcium 8.1 mg/dL (8.5-10.5); Carbon Dioxide 24 mmol/L (22-29); Chloride 116 mmol/L (98-107); Globulin 3.1 g/dL (1.3-4.6); Glomerular Filtration Rate 44.7 mL/min (90-130); Glucose 115 mg/dL (65-115); Osmolality Calculated 320 mOsm/kg (285-295); Potassium 3.7 mmol/L (3.5-5.1); Sodium 151 mmol/L (136-145); Total Bilirubin 0.2 mg/dL (0.15-1.2); Total Protein 6.4 g/dL (6.6-8.7)
[2022-04-14] MEDS: LORazepam 2 mg/mL INJ 1 mL IVP (05:36)
[2022-04-14 06:05] LABS: Absolute Segmented Neutrophil 11.2 10/cmm (1.6-7.1); Band Neutrophils Absolute 1.4 10^3/cmm (0.0-1.2); Eosinophils 0 %; Lymphocytes 4 %; Lymphocytes Absolute 0.5 10^3/cmm (1.2-3.4); Monocytes Absolute 0.4 10^3/cmm (0.1-0.6); Segmented Neutrophils 83 %; Total Cells Counted 100 (0-100)
[2022-04-14 06:06] LABS: Absolute Neutrophil 12.6 10^3/cmm (1.4-6.5); Anisocytosis 2+; Microcytosis 1+; Ovalocytes 1+; Platelet Estimate Normal (Normal)
[2022-04-14] MEDS: dexamethasone 10 mg/mL INJ 6 MG IVP (07:40)
[2022-04-14] MEDS: enoxaparin 40 mg/0.4 mL Syringe SUBCUT (07:40)
[2022-04-14] MEDS: levothyroxine 100 mcg SDV 75 MCG IVP (08:28)
[2022-04-14] MEDS: pantoprazole 40 mg SDV IVP (08:28)
[2022-04-14] MEDS: dextrose 5% 1,000 ML 100 ML IV ×2 (08:48→16:53)
[2022-04-14] MEDS: budesonide 0.5 mg/2 mL Neb INHALATION ×2 (09:09→21:26)
[2022-04-14] MEDS: gabapentin 100 mg Capsule 200 MG PO ×3 (09:39→23:32)
[2022-04-14] MEDS: fixodent 39 gm Tube 1 APPLIC DENTAL (10:27)
--- NOTE | 2022-04-14 12:26 | PC.CHAP ---
Pastoral Care Encounter/Spiritual Assessment Type of Contact [] Declined textile coating machine operator visit [] Patient/Family/Request visit [] Outpatient visit [] Follow-up visit [] Physician referral [] Code/Alert [x] Routine visit [] Staff referral [] Actively dying [] Patient sleeping [] Family support [] [] Out of room [] Palliative care [] [] Receiving care in room [] Pre-surgical visit [] Trauma [] Long length of stay [x] ICU visit [] Other: Relational/Emotional Strength [] Patient feels connected with others/family/visitors/staff [] Distress [] Loneliness/isolation [] Abandonment Spirituality of Patient [] Person of Shaina [] Attends Confucianist of their Shaina [] Believes in Prayer [] Reads Bible or Anglican materials [] There are Spiritual issues to be addressed Blade Grinder Interventions [x] Prayer [] Active listening [] Non-anxious presence [] Spiritual/emotional support [] Crisis/trauma care [] Spiritual counseling [] Bereavement support [] Provided bereavement packet [] Provided Bible/devotional materials [] Provided toy/stuffed animal, coloring book to patient or family member [] Provided Communion [] Anointing/Placida [] Salvation [x] Completed spiritual assessment [] Other: Impact on Illness or Injury [] Angry [] Fearful [] Anxious [] Often cries [] Exhaustion [] Unable to work [] Unable to attend judaism [] Unable to walk/stand [] Unable to read [] Unable to drive [] Unable to eat/drink [] Unable to sleep [] Unable to be with family [] Patient intubated [] Other: Summary Time spent with patient
[2022-04-14] MEDS: ipratropium-albuterol 3 mL Neb INHALATION ×2 (15:31→21:26)
[2022-04-14] MEDS: oxyCODONE-APAP 5-325 mg Tablet 1 TAB PO ×2 (15:35→23:33)
--- NOTE | 2022-04-14 16:13 | PC.NURSE ---
Transfer Note Patient transferred to med-surg room 258 from ICU via bed. Handoff report given to Kiley. Patient oriented to environment and equipment. Covering service notified. Orders reviewed and will continue to monitor. Family and/or registered representative notified. Patient alert/oriented on room air at time of transfer. No wounds or skin issues noted at this time. All belongings transferred with patient and placed at bedside.
[2022-04-14] MEDS: sucralfate 1 gm Tablet PO (16:53)
--- NOTE | 2022-04-14 17:40 | P.PN_ITS ---
Subjective Subjective: Patient was seen and examined this morning much more alert awake oriented holding good communication complaining of back pain wants her pain medication to be restarted. Robust urine output, hypernatremic this morning.Saturating well on minimal supplemental oxygen. Medications: Medication Review Details: Generic Name Dose Route Start Last Admin Trade Name Freq PRN Reason Stop Dose Admin Albuterol/Ipratrop ium 3 ml 04/14/22 16:00 04/14/22 15:31 Ipratropium-Albu terol 3 Ml Neb INHALATION 3 ml Q4H.RESPIRATORY S CH Administration Budesonide 0.5 mg 04/13/22 08:00 04/14/22 09:09 Budesonide 0.5 M g/2 Ml Neb INHALATION 0.5 mg BID.RESPIRATORY S CH Administration Denture Adhesive 1 applic 04/14/22 10:22 04/14/22 10:27 Fixodent 39 Gm T ube DENTAL 1 applic PRN PRN Administration denture adhesive Dexamethasone 6 mg 04/13/22 07:00 04/14/22 07:40 Dexamethasone 10 Mg/Ml Inj IVP 6 mg Q24H KIM Administration Enoxaparin Sodium 40 mg 04/13/22 08:00 04/14/22 07:40 Enoxaparin 40 Mg /0.4 Ml Syringe SUBCUT 40 mg Q24H KIM Administration Gabapentin 200 mg 04/14/22 09:00 04/14/22 15:35 Gabapentin 100 M g Capsule PO 200 mg TID KIM Administration Ceftriaxone Sodium 1,000 mg/ 50 mls @ 100 mls/ hr 04/14/22 06:00 04/14/22 06:31 Sodium Chloride IV Infused Q24H KIM Infusion Protocol Azithromycin 500 m g/ Sodium 250 mls @ 250 mls /hr 04/14/22 05:00 04/14/22 06:31 Chloride IV Infused Q24H KIM Infusion Protocol Dexmedetomidine HC l 400 mcg/ 104 mls @ 0 mls/h r 04/13/22 09:15 04/14/22 07:33 Sodium Chloride IV Infused .Q0M KIM Titration Protocol Per Protocol Dextrose 1,000 mls @ 100 m ls/hr 04/14/22 08:30 04/14/22 16:53 D5w IV 100 mls/hr .Q10H KIM Administration Levothyroxine Sodi um 75 mcg 04/13/22 09:15 04/14/22 08:28 Levothyroxine 10 0 Mcg Sdv IVP 75 mcg DAILY KIM Administration Lorazepam 2 mg 04/13/22 11:25 04/14/22 05:36 Lorazepam 2 Mg/M l Inj 1 Ml IVP 2 mg Q4H PRN Administration ANXIETY Oxycodone/Acetamin ophen 1 tab 04/14/22 12:23 04/14/22 15:35 Oxycodone-Apap 5 -325 Mg Tablet PO 1 tab Q6H PRN Administration MODERATE PAIN Pantoprazole Sodiu m 40 mg 04/14/22 09:00 04/14/22 08:28 Pantoprazole 40 Mg Sdv IVP 40 mg DAILY KIM Administration Sucralfate 1 gm 04/13/22 07:00 04/14/22 16:53 Sucralfate 1 Gm Tablet PO 1 gm BIDAC KIM Administration Vitals/I&O/Wt Last Vital Signs Temp 97.6 F 04/14/22 08:00 Pulse 70 04/14/22 15:40 Resp 16 04/14/22 15:35 BP 126/69 04/14/22 16:00 Pulse Ox 94 04/14/22 15:35 O2 Del Method 04/14/22 15:35 O2 Flow Rate 3 04/14/22 09:00 04/14/22 04/14/22 04/14/22 06:59 14:59 22:59 Intake Total 1300 / 3159.407 0 / 0 1108.333 / 1108.333 Output Total 900 / 6200 650 / 650 Balance 400 / -3040.593 0 / 0 458.333 / 458.333 Weight last 48 hrs Weight 65.771 kg Physical Exam Narrative: Much more alert awake oriented holding good conversation HENMT: COMMON NORMALS: normocephalic and atraumatic HEAD & SCALP: normocephalic and atraumatic Resp: COMMON NORMALS: clear to auscultation bilaterally EFFORT & INSPECTION: Yes symmetric chest movement AUSCULTATION: clear to auscultation bilaterally Cardio: COMMON NORMALS: regular rate, regular rhythm, S1 normal heart sound present, S2 normal heart sound present, No gallops present (Cardio), No murmurs present (Cardio), No rub (Cardio) and Peripheral pulses 2+ throughout RATE: regular rate RHYTHM: regular rhythm HEART SOUNDS: S1 normal heart sound present and S2 normal heart sound present PERIPHERAL PULSES: Peripheral pulses 2+ throughout GI: COMMON NORMALS: Normal to inspection, nondistended, normoactive bowel sounds present, Soft to palpation, non-tender, No hepatosplenomegaly present and no masses AUSCULTATION: Yes normoactive bowel sounds PALPATION: Yes Soft to palpation and Yes No hepatosplenomegaly present RECTAL EXAM: deferred Extremity: COMMON NORMALS: no clubbing, cyanosis or edema and no pedal edema Urinary Catheter Management: Brandt: Cath Placed During This Visit: no Reason for Continuing Indwelling Catheter: Accurate Measurement of Urinary Output in Critically Ill Patients Data 04/14/22 04:24 04/14/22 04:24 Micro: Microbiology 04/13/22 04:53 Blood Culture - Preliminary Blood NEGATIVE TO DATE 04/13/22 04:50 Blood Culture - Preliminary Blood 04/13/22 08:21 MRSA Culture - Final Nose A&P Assessment and plan (1) Multifocal pneumonia: (2) Hypotension: (3) AMS (altered mental status): (4) COVID-19: Plan 67 year old female with a past medical history of chronic low back pain, who presents to [facility] due to complaints of chest pain, shortness of breath.Patient was extremely restless when she came in for which she received 5 mg of Haldol, 2 mg of Ativan, 0.5 mg of Dilaudid.Which likely dropped her blood pressure.Patient received fluid bolus as well as was placed on levophed drip. On arrival she was alert and oriented, following commands, very restless, very agitated, complaining of back pain. Currently she is being managed for: Assessment : Acute Metabolic encephalopathy 2/2 Drug use, PNA,ZAHRA, Dehydration COVID -19-PNA Hypoxia secondary to COVID-19 pneumonia ZAHRA ON CKD likely Prerenal ZAHRA 2/2 Dehydration, currently in polyuric phase Dehydration Hypovolemic Shock 2/2 Dehydration Hypernatremia Anemia Chronic Back Pain Lt Lower Lobe Pulmonary Nodule : 1.1 Cm: Follow Up repeat C.T Chest in 3 Months. Plan : CT chest abdpel wo?: Scattered pulmonary infiltrates in both lungs compatible with multifocal pneumonia. Small nodular opacities are noted, more prominent in the left lower lobe measuring approximally 1.1 cm. Blood Culture : D-dimer ESR:35 CRP: MRSA :PCR :Negative Sputum gram stain and culture TSH: 0.7 Will possibly do C/T Head without Contrast : Random urine sodium Random urine creatinine Random urine protein Fena Monitor x-ray chest Monitor ABG My clinical suspicion for sepsis is low: Hypotension is due to dehydration, ZAHRA as well, her lactic acid is normal, procalcitonin is normal, has no white count,AMS is likely due to medication effect as well as due to drug use: utox is positive for marijuana.With possible contributions from [facility]. Continue dexamethasone 6 milligrams IV daily Continue DuoNebs, budesonide inhaler, Currently on ceftriaxone azithromycin Continue levothyroxine IV for now, will switch to p.o. once he is able to take oral Continue IV hydration with normal saline 75 cc an hour Monitor intake output charting. Avoid nephrotoxic's. Patient had distended bladder on CT scan, post Brandt catheter placement, 900 cc urine was drained. Currently she is maintaining a robust urine output. Patient needed, Precedex as well as 1 dose of Ativan, for restlessness, and agitation.Precedex drip was later turned off As she became bradycardic, she had to also be given 0.5 mg atropine one-time dose, as the heart rate was dipping into the 30s, fortunately she was maintaining a decent MAP at that time.Post atropine dose heart rate picked up. CODE STATUS: Full code DVT prophylaxis on Lovenox Attestations Medical Necessity Statement*: Patient is to be in hospital for continued IV fluids. Coding Level of Care Code Acute Triple Valve Mechanic for [facility] Fw Diagnoses Multifocal pneumonia J18.9 Hypotension I95.9 AMS (altered mental status) R41.82 COVID-19 U07.1
[2022-04-15] VITALS (8 sets, daily range): BP systolic 142–171; BP diastolic 68–82; PULSE 62–76; RESP 16–19; TEMP 36.5–37; O2SAT 92–98
[2022-04-15] MEDS: LORazepam 2 mg/mL INJ 1 mL IVP (01:53)
[2022-04-15] MEDS: dextrose 5% 1,000 ML 100 ML IV (02:42)
[2022-04-15 04:28] LABS: Basophils % 0.1 %; Eosinophils % 0.1 %; Hematocrit 26.3 % (37.0-47.0); Hemoglobin 8.1 g/dL (11.5-15.3); Lymphocytes # 1.1 10^3/uL (0.8-4.8); Lymphocytes % 7.9 %; Mean Corpuscular HGB Conc 30.8 g/dL (30.0-36.0); Mean Corpuscular Hemoglobin 24.3 pg (28.0-34.0); Mean Corpuscular Volume 78.7 fl (81-99); Mean Platelet Volume 10.4 fL (7.4-10.4); Monocytes # 0.5 10^3/uL (0.2-0.9); Monocytes % 3.9 %; Neutrophils # 12.11 10^3/uL (1.8-7.7); Neutrophils % 86.6 %; Nucleated Red Blood Cells % 0 %; Platelet Count 273 10^3/cmm (130-400); Red Blood Count 3.34 10^6/uL (4.1-5.3); Red Cell Distribution Width 18.3 % (12.1-15.1)
[2022-04-15] MEDS: azithromycin 500 MG in sodium chloride 0.9% 250 ML 250 MG IV (04:40)
[2022-04-15 04:47] LABS: Alanine Aminotransferase 12 U/L (0-33); Albumin Level 3.3 g/dL (3.5-5.2); Alkaline Phosphatase 78 U/L (35-105); Anion Gap 16.5 (5-19); Blood Urea Nitrogen 26 mg/dL (8-23); Calcium 8.3 mg/dL (8.5-10.5); Carbon Dioxide 23 mmol/L (22-29); Chloride 107 mmol/L (98-107); Globulin 3.2 g/dL (1.3-4.6); Glomerular Filtration Rate 55.1 mL/min (90-130); Glucose 125 mg/dL (65-115); Osmolality Calculated 302 mOsm/kg (285-295); Sodium 143 mmol/L (136-145); Total Bilirubin 0.2 mg/dL (0.15-1.2); Total Protein 6.5 g/dL (6.6-8.7)
[2022-04-15 04:48] LABS: Aspartate Amino Transferase 23 U/L (0-32); Potassium 3.5 mmol/L (3.5-5.1)
[2022-04-15] MEDS: cefTRIAXone 1,000 MG in sodium chloride 0.9% (plus) 50 ML 100 MG IV (06:40)
[2022-04-15] MEDS: dexamethasone 10 mg/mL INJ 6 MG IVP (07:00)
[2022-04-15] MEDS: sucralfate 1 gm Tablet PO (07:36)
[2022-04-15] MEDS: enoxaparin 40 mg/0.4 mL Syringe SUBCUT (08:09)
[2022-04-15] MEDS: gabapentin 100 mg Capsule 200 MG PO ×2 (08:10→15:49)
[2022-04-15] MEDS: levothyroxine 100 mcg SDV 75 MCG IVP (08:10)
[2022-04-15] MEDS: pantoprazole 40 mg SDV IVP (08:10)
--- NOTE | 2022-04-15 09:37 | USCV_ITS ---
Tosha Perry Age: 67 Gender: F : 1955 Exam Date: 04/15/2022 09:54 Ordering Phys: Puneet Go MD Technologist: BRISEYDA [place] [facility] [place]: R/O D[place] HISTORY: RT knee pain PROCEDURES: Venous duplex imaging was performed in bilateral lower extremities. The following venous structures were evaluated: common femoral vein, profunda vein, proximal portion of the greater saphenous vein, superficial femoral vein, and the popliteal vein. In addition, the posterior tibial and peroneal trunk were evaluated. Bilaterally, the common femoral, superficial femoral, profunda femoral, popliteal, posterior tibial, greater saphenous veins, and the peroneal trunk were identified and interrogated in the standard fashion. These veins were found to be easily compressible with spontaneous blood flow. No evidence of insufficiency or thrombus noted. Serial compression, augmentation maneuvers, and spectral Doppler flow evaluation were performed. FINDINGS: No evidence of DVT seen in any vessel visualized at this time. GSV is not seen at HC, BK in bilateral legs. GSV at RT ankle is seen with clot within. LT GSV ankle not visualized CONCLUSIONS No evidence of DVT Bilateral lower extremities Superficial thrombus visualized in the Right GSV at the ankle No other suspicious findings Notified Dr. Go at 1340 on 04/15/22 Medardo Agarwal MD (Electronically Signed) Final Date: 15 April 2022 13:41 S
--- NOTE | 2022-04-15 13:26 | PM.DCS ---
Discharge Providers Date of Admission: 04/13/22 05:13 Date of Discharge: April 15, 2022 Attending Provider at Admission: Bernard Ray MD Attending Provider at Discharge: Puneet Go MD Diagnoses at Discharge Discharge Diagnosis (1) Multifocal pneumonia: Status: Acute (2) Hypotension: Status: Acute (3) AMS (altered mental status): Status: Acute (4) COVID-19: Status: Acute Reason for Visit Reason for Visit: CP, SOB Hospital Course Hospital Course 67 year old female with a past medical history of chronic low back pain, who presents to [facility] due to complaints of chest pain, shortness of breath.Patient was extremely restless when she came in. She was admitted for the management of acute metabolic encephalopathy secondary to COVID-19 pneumonia ZAHRA dehydration, possible drug/polypharmacy, acute hypoxia secondary to COVID-19 pneumonia, hypovolemic shock secondary to dehydration, prerenal ZAHRA, hypernatremia, chronic low back pain, left lower lobe pulmonary nodule 1.1 cm which needs repeat follow-up CT chest in [address] chest abdomen pelvis done during hospital stay showed:?Scattered pulmonary infiltrates in both lungs compatible with multifocal pneumonia. Small nodular opacities are noted, more prominent in the left lower lobe measuring approximally 1.1 cm. Blood culture was negative, MRSA PCR was negative.Patient was kept on dexamethasone, empirically on ceftriaxone azithromycin, DuoNebs, budesonide inhaler, she was also kept on IV hydration, intake output was charted nephrotoxic's were avoided, patient responded well to above management, at the time of discharge, his kidney function had more or less normalized, hypotension was resolved, she was alert awake oriented x3, Brandt catheter was removed prior to discharge, She responded well to above medical management, at the time of discharge she was saturating well on room air. She was afebrile hemodynamically stable, she was discharged on p.o. Augmentin for additional 5 days, to complete the course of possible superimposed bacterial pneumonia.Patient was also discharged on albuterol inhaler as needed.Patient was also diagnosed with , Superficial thrombus visualized in the Right GSV at the ankle, she was discharged on p.o. aspirin for the same.Brandt was removed prior to the discharge, she voided prior to the discharge. Overall patient has responded well to above medical management, she will follow primary care physician as outpatient. Physical Exam Narrative: Alert awake oriented x3 HENMT: COMMON NORMALS: normocephalic and atraumatic HEAD & SCALP: normocephalic and atraumatic Resp: COMMON NORMALS: clear to auscultation bilaterally EFFORT & INSPECTION: Yes symmetric chest movement AUSCULTATION: clear to auscultation bilaterally Cardio: COMMON NORMALS: regular rate, regular rhythm, S1 normal heart sound present, S2 normal heart sound present, No gallops present (Cardio), No murmurs present (Cardio), No rub (Cardio) and Peripheral pulses 2+ throughout RATE: regular rate RHYTHM: regular rhythm HEART SOUNDS: S1 normal heart sound present and S2 normal heart sound present PERIPHERAL PULSES: Peripheral pulses 2+ throughout GI: COMMON NORMALS: Normal to inspection, nondistended, normoactive bowel sounds present, Soft to palpation, non-tender, No hepatosplenomegaly present and no masses AUSCULTATION: Yes normoactive bowel sounds PALPATION: Yes Soft to palpation and Yes No hepatosplenomegaly present RECTAL EXAM: deferred Extremity: COMMON NORMALS: no clubbing, cyanosis or edema and no pedal edema Urinary Catheter Management: Brandt: Cath Placed During This Visit: no Reason for Continuing Indwelling Catheter: Accurate Measurement of Urinary Output in Critically Ill Patients Discharge Data Studies Completed and Pending Completed Studies During Hospitalization Category [place] [id number] Stat Cat Scan 04/13/22 02:47 Completed XR chest 1V portable [id number] Stat Exams 04/13/22 01:52 Completed Pending at discharge Category Date Time Status Blood Culture Stat Lab 04/13/22 04:53 Results CBC Auto Diff [Complete Blood Count w/Auto] AM LABS Lab 04/16/22 04:00 Ordered CMP [Comprehensive Metabolic Panel] AM LABS Lab 04/16/22 04:00 Ordered Clostridioides Difficile PCR Routine Lab 04/13/22 06:22 Ordered Enteric Bacterial Panel by PCR Routine Lab 04/13/22 06:22 Ordered Enteric Parasite Panel by PCR Routine Lab 04/13/22 06:22 Ordered Immunochemical Fecal OCB Routine Lab 04/13/22 06:22 Ordered Lactoferrin Routine Lab 04/13/22 06:22 Ordered Sputum Culture and Gram Stain Stat Lab 04/13/22 08:27 Ordered US venous duplex lower extremity bilat [CV venous Ultrasound 04/15/22 09:37 [place] [id number]] Routine Radiology Impressions Chest X-Ray 04/13/22 01:52 IMPRESSION: 1. Suggestion of mild peribronchial cuffing. 2. Scattered pulmonary infiltrates may represent pneumonia or pulmonary lesions. 3. Otherwise, no acute radiographic findings in the chest. Chest/Abdomen/Pelvis CT 04/13/22 02:47 IMPRESSION: 1. Scattered pulmonary infiltrates in both lungs compatible with multifocal pneumonia. 2. Small nodular opacities are noted, more prominent in the left lower lobe measuring approximally 1.1 cm. A short-term follow-up within 3 months is recommended for further evaluation according to Fleischner criteria. 3. Coronary atherosclerosis and small pericardial effusion. 4. Cardiomegaly. IMPRESSION: 1. Status post cholecystectomy. 2. Gastric distension. Please correlate with prior imaging and endoscopy if clinically warranted. 3. Thickening of the duodenal and the proximal bowel mehta may represent duodenitis and or enteritis in the appropriate clinical setting. 4. Suspected small left adrenal nodule. 5. Atherosclerotic calcifications of the abdominal aorta and its branches. 6. Distended urinary bladder. 7. Post kyphoplasty of the L4 and L5 vertebral bodies. Laboratory Results WBC 14.0 10^3/uL (4.0-10.0) H 04/15/22 04:00 Corrected WBC Cancelled 04/13/22 03:56 RBC 3.34 10^6/uL (4.1-5.3) L 04/15/22 04:00 Hgb 8.1 g/dL (11.5-15.3) L 04/15/22 04:00 Hct 26.3 % (37.0-47.0) L 04/15/22 04:00 MCV 78.7 fl (81-99) L 04/15/22 04:00 MCH 24.3 pg (28.0-34.0) L 04/15/22 04:00 MCHC 30.8 g/dL (30.0-36.0) 04/15/22 04:00 RDW 18.3 % (12.1-15.1) H 04/15/22 04:00 Plt Count 273 10^3/cmm (130-400) 04/15/22 04:00 MPV 10.4 fL (7.4-10.4) 04/15/22 04:00 Gran % Cancelled 04/13/22 03:56 Neut % (Auto) 86.6 % 04/15/22 04:00 Lymph % (Auto) 7.9 % 04/15/22 04:00 [place] % (Auto) 3.9 % 04/15/22 04:00 Eos % (Auto) 0.1 % 04/15/22 04:00 Baso % (Auto) 0.1 % 04/15/22 04:00 Neut # (Auto) 12.11 10^3/uL (1.8-7.7) H 04/15/22 04:00 Lymph # (Auto) 1.1 10^3/uL (0.8-4.8) 04/15/22 04:00 [place] # (Auto) 0.5 10^3/uL (0.2-0.9) 04/15/22 04:00 Eos # (Auto) 0.0 10^3/uL (0.0-0.8) 04/15/22 04:00 Baso # (Auto) 0.0 10^3/uL (0.0-0.1) 04/15/22 04:00 Absolute Gran (auto) Cancelled 04/13/22 03:56 Nucleated RBC % (auto) 0 % 04/15/22 04:00 Total Counted 100 (0-100) 04/14/22 04:24 Atypical Lymphs % 0.0 % (0-5) 04/14/22 04:24 Absolute Neutrophils 12.6 10^3/cmm (1.4-6.5) H 04/14/22 04:24 Segmented Neutrophils 83 % 04/14/22 04:24 Abs Segm Neuts (Man) 11.2 10/cmm (1.6-7.1) H 04/14/22 04:24 Band Neutrophils 10.0 % 04/14/22 04:24 Abs Band Neuts (Man) 1.4 10^3/cmm (0.0-1.2) H 04/14/22 04:24 Absolute Lymphocytes 0.5 10^3/cmm (1.2-3.4) L 04/14/22 04:24 Lymphocytes (Manual) 4 % 04/14/22 04:24 Monocytes (Manual) 3.0 % 04/14/22 04:24 Absolute Monocytes 0.4 10^3/cmm (0.1-0.6) 04/14/22 04:24 Eosinophils (Manual) 0 % 04/14/22 04:24 Absolute Eosinophils 0.0 10^3/cmm (0.0-0.7) 04/14/22 04:24 Basophils (Manual) 0.0 % 04/14/22 04:24 Absolute Basophils 0.0 10^3/cmm (0.0-0.2) 04/14/22 04:24 Nucleated RBCs # 0.0 /100WBC 04/15/22 04:00 Platelet Estimate Normal (Normal) 04/14/22 04:24 Anisocytosis 2+ H 04/14/22 04:24 Microcytosis 1+ H 04/14/22 04:24 Ovalocytes 1+ H 04/14/22 04:24 ESR 35 mm/hr (0-15) H 04/13/22 04:50 PT 12.50 SECONDS (12.1-14.9) 04/13/22 03:56 INR 0.90 (0.8-1.2) 04/13/22 03:56 D-Dimer 2.97 ug/mIFEU (0-0.59) H 04/14/22 04:24 Specimen Type Arterial 04/13/22 04:51 Sample Site Brachial, right 04/13/22 04:51 ABG pH 7.37 (7.35-7.45) 04/13/22 04:51 ABG pCO2 42.1 mmHg (35-45) 04/13/22 04:51 ABG pO2 62.8 mmHg (80.0-100.0) L 04/13/22 04:51 ABG HCO3 24.3 mmol/L (22-26) 04/13/22 04:51 ABG Base Excess -1.0 mmol/L (-2.0-2.0) 04/13/22 04:51 Shahzad Test N/a 04/13/22 04:51 Hematocrit 26.4 % (37-47) L 04/13/22 04:51 O2 Delivery Device Nc 04/13/22 04:51 O2 Liters/Min 6.0 % 04/13/22 04:51 FiO2 45.0 % 04/13/22 04:51 Montessori Lead Teacher ID Shira 04/13/22 04:51 Sodium 143 mmol/L (136-145) 04/15/22 04:00 Potassium 3.5 mmol/L (3.5-5.1) 04/15/22 04:00 Chloride 107 mmol/L (98-107) 04/15/22 04:00 Carbon Dioxide 23 mmol/L (22-29) 04/15/22 04:00 Anion Gap 16.5 (5-19) 04/15/22 04:00 BUN 26 mg/dL (8-23) H 04/15/22 04:00 Creatinine 1.0 mg/dL (0.5-0.9) H 04/15/22 04:00 GFR Calculation 55.1 mL/min (90-130) L 04/15/22 04:00 Glucose 125 mg/dL (65-115) H 04/15/22 04:00 Estimat Average Glucose 120 04/13/22 04:50 Hemoglobin A1c 5.8 % (4.0-6.0) 04/13/22 04:50 Calculated Osmolality 302 mOsm/kg (285-295) H 04/15/22 04:00 Lactate 1.6 mmol/L (0.5-2.2) 04/13/22 10:01 Calcium 8.3 mg/dL (8.5-10.5) L 04/15/22 04:00 Iron 14 ug/dL (37-145) L 04/13/22 04:50 TIBC 358 mcg/dl 04/13/22 04:50 % Saturation 3.9 % (20-50) L 04/13/22 04:50 Unsat Iron Binding 344 ug/dL (112-347) 04/13/22 04:50 Ferritin 62 ng/mL (15-150) 04/13/22 04:50 Total Bilirubin 0.2 mg/dL (0.15-1.2) 04/15/22 04:00 AST 23 U/L (0-32) 04/15/22 04:00 ALT 12 U/L (0-33) 04/15/22 04:00 Alkaline Phosphatase 78 U/L (35-105) 04/15/22 04:00 Troponin T Baseline 31 ng/L (0-10) H 04/13/22 02:06 Troponin T 120 Minute 32.12 ng/L (0-10) H 04/13/22 04:50 Delta Troponin T 1.12 ABS# (0-10) 04/13/22 04:50 Troponin T Hi Sens 6Hr 30.18 ng/L (0-10) H 04/13/22 10:01 Troponin T Hi Sens 6Hr Delta -0.82 ng/L (0-12) L 04/13/22 10:01 C-Reactive Protein 172.9 mg/L (0.0-4.9) H 04/14/22 04:24 NT-Pro-B Natriuret Pep 2121 pg/mL (0-125) H 04/13/22 04:50 Total Protein 6.5 g/dL (6.6-8.7) L 04/15/22 04:00 Albumin 3.3 g/dL (3.5-5.2) L 04/15/22 04:00 Globulin 3.2 g/dL (1.3-4.6) 04/15/22 04:00 Triglycerides 170 mg/dL (0-150) H 04/13/22 04:50 Cholesterol 223 mg/dL (0-200) H 04/13/22 04:50 LDL Cholesterol, Calc 135 mg/dL (50-129) H 04/13/22 04:50 HDL Cholesterol 54 mg/dL (60-100) L 04/13/22 04:50 LDL/HDL Ratio 2.50 RATIO (0.00-3.22) 04/13/22 04:50 Cholesterol/HDL Ratio 4.13 mg/dL (0.0-4.40) 04/13/22 04:50 Vitamin B12 727 pg/mL (232-1245) 04/13/22 04:50 Folate > 20.0 ng/mL (4.8-37.3) 04/13/22 02:06 Procalcitonin 0.37 ng/mL (0-0.5) 04/13/22 04:50 TSH 0.70 uIU/mL (0.27-4.20) 04/13/22 04:50 Urine Color Colorless (Yellow) 04/13/22 08:21 Urine Appearance Clear (CLEAR) 04/13/22 08:21 Urine pH 6 (5-7) 04/13/22 08:21 Ur Specific [place] 1.010 (1.005-1.030) 04/13/22 08:21 Urine Protein Neg (Negative) 04/13/22 08:21 Urine Glucose (UA) Norm (Normal) 04/13/22 08:21 Urine Ketones Negative (Negative) 04/13/22 08:21 Urine Blood Neg (Negative) 04/13/22 08:21 Urine Nitrate Negative (Negative) 04/13/22 08:21 Urine Bilirubin Neg (Negative) 04/13/22 08:21 Urine Urobilinogen Norm mg/dL (Negative) 04/13/22 08:21 Ur Leukocyte Esterase Negative (Negative) 04/13/22 08:21 Salicylates < 0.3 mg/dL (3-10) L 04/13/22 04:50 Urine Opiates Screen Cancelled 04/13/22 08:21 Urine Opiates Screen Positive ng/mL (Negative) H 04/13/22 08:21 Acetaminophen < 5.0 ug/mL (10-30) L 04/13/22 04:50 Ur Barbiturates Screen Cancelled 04/13/22 08:21 Ur Barbiturates Screen Negative ng/mL (Negative) 04/13/22 08:21 Ur Phencyclidine Scrn Cancelled 04/13/22 08:21 Ur Phencyclidine Scrn Negative ng/mL (Negative) 04/13/22 08:21 Ur Amphetamines Screen Cancelled 04/13/22 08:21 Ur Amphetamines Screen Negative ng/mL (Negative) 04/13/22 08:21 U Benzodiazepines Scrn Cancelled 04/13/22 08:21 U Benzodiazepines Scrn Negative ng/mL (Negative) 04/13/22 08:21 Urine Cocaine Screen Cancelled 04/13/22 08:21 Urine Cocaine Screen Negative ng/mL (Negative) 04/13/22 08:21 U Marijuana (THC) Screen Cancelled 04/13/22 08:21 U Marijuana (THC) Screen Positive ng/mL (Negative) H 04/13/22 08:21 Ethyl Alcohol < 10 mg/dL (0-10) 04/13/22 04:50 Influenza Type A Ag negative (Negative) 04/13/22 04:15 Influenza Type B Ag negative (Negative) 04/13/22 04:15 SARS-CoV-2 Ag (Rapid) positive (Negative) 04/13/22 04:15 Vitals Last Vital Signs Temp 97.7 F 04/15/22 12:00 Pulse 62 04/15/22 12:00 Resp 17 04/15/22 12:00 BP 171/80 04/15/22 12:00 Pulse Ox 98 04/15/22 12:00 O2 Del Method 04/15/22 12:00 O2 Flow Rate 3 04/14/22 09:00 Discharge Plan Discharge Patient Disposition: Home Condition: Stable Prescriptions: New Augmentin 500-125 mg tablet 1 tab PO BID Qty: 10 0RF Proventil HFA 90 mcg/actuation HFA aerosol inhaler 1 inh inhalation Q6H PRN (Reason: shortness of breath or wheezing) Qty: 6.7 0RF aspirin 81 mg Tablet,Chewable 162 mg PO DAILY 30 Days Qty: 30 2RF Continued tizanidine 4 mg capsule 4 mg PO Q8H PRN (Reason: muscle spasticity) Qty: 30 0RF diclofenac sodium 75 mg tablet,delayed release (DR/EC) 75 mg PO Q12H PRN (Reason: pain) Qty: 20 0RF ondansetron HCl 4 mg Tablet 4 mg PO DAILY PRN (Reason: Nausea And Vomiting) clonazepam 1 mg Tablet 1 mg PO DAILY PRN (Reason: Anxiety) baclofen 10 mg Tablet 10 mg PO BID PRN (Reason: Muscle Spasm) Protonix 40 mg Tablet,Delayed Release (Dr/Ec) 40 mg PO DAILY gabapentin 300 mg Capsule 300 mg PO TID ropinirole 5 mg Tablet 5 mg PO TID PRN (Reason: Restless Leg(S)) Prozac 20 mg Capsule 20 mg PO DAILY levothyroxine 112 mcg Tablet 112 mcg PO QAM Held Lasix 40 mg Tablet 40 mg PO DAILY Hold Instructions: Resume on 04/29/22. potassium chloride 10 mEq Tablet Extended Release 10 meq PO BID PRN (Reason: unknown) Hold Instructions: Resume on 04/29/22. Discontinued prednisone 20 mg Tablet See Rx Instructions .ROUTE .COMPLEX Rx Instructions: 20mg po tid for 3 days, 20mg po bid for 2 days, 20mg po daily for 2 days doxycycline monohydrate 100 mg Capsule 100 mg PO BID Discharge Orders: Discharge Order (Routine); Ordered 04/15/22 Ordered By: Puneet Go Referrals: Jose Angel DO [Physician] - 04/22/22 1:00 pm Patient Instructions: Opioid Safety Discharge Attestations Time Spent in Discharge Care*: greater than 30 min Quality Metrics Clinical Quality Measures [ No reported AMI, CVA or VTE this stay] Coding Level of Care Code Acute Chg FW DC note Exam Detailed Diagnoses Multifocal pneumonia J18.9 Hypotension I95.9 AMS (altered mental status) R41.82 COVID-19 U07.1
[2022-04-15] MEDS: oxyCODONE-APAP 5-325 mg Tablet 1 TAB PO (15:49)
== END 2022-04-15 17:23 | disposition home or self-care (01) | DRG 177 ==
LOC: ER 04:56 → ICU 05:13 → MEDSURG 04-14 16:01
PROVIDERS: Admitting Provider Family Medicine; Emergency Provider Emergency Medicine; Visit Provider Internal Medicine
DX: U07.1 COVID-19 (principal); G93.41 Metabolic encephalopathy; J12.82 Pneumonia due to coronavirus disease 2019; J15.9 Unspecified bacterial pneumonia; J96.01 Acute respiratory failure with hypoxia; N17.9 Acute kidney failure, unspecified; I82.811 Embolism and thrombosis of superficial veins of right lower extremity; G89.29 Other chronic pain; M54.50 Low back pain, unspecified; E86.0 Dehydration; Z87.891 Personal history of nicotine dependence; I95.9 Hypotension, unspecified; D63.1 Anemia in chronic kidney disease; N18.9 Chronic kidney disease, unspecified; R91.8 Other nonspecific abnormal finding of lung field
CPT/HCPCS: 36415; 36592; 36600; 51702; 71045; 71250; 74176; 80053; 80061; 80306; 80307; 81003; 82607; 82728; 82746; 82803; 83036; 83540; 83550; 83605; 83880; 84145; 84443; 84484; 85007; 85025; 85378; 85610; 85651; 86140; 87040; 87205; 87426; 87641; 87804; 92523; 92610; 93005; 93970; 94640; 94760; 96365; 96367; 96372; 96375; 99284; 99285; C9113; J0456; J0461; J0696; J1100; J1170; J1630; J1650; J1885; J2060; J2360; J2405; J3480; J3490; J7030; J7040; J7050; J7060; J7070; J7613; J7626; J7644

== ENCOUNTER 2022-04-22 14:20 | Outpatient (CLI) | payer MEDICARE, OTHER, SELFPAY ==
[2022-04-22 15:30] LABS: Add Urine Microscopic? NO; Charge for UA Resulting for Rev
[2022-04-22 15:50] LABS: Bilirubin Urine Neg (Negative); Blood Urine Neg (Negative); Glucose Urine UA Norm (Normal); Ketones Urine Negative (Negative); Leukocyte Esterase Urine Negative (Negative); Nitrate Urine Negative (Negative); Protein Urine Neg (Negative); Urine Appearance Clear (CLEAR); Urine Color Yellow (Yellow); Urobilinogen Urine Norm (Negative); pH Urine 6 (5-7)
[2022-04-22 16:12] LABS: Basophils % 0.4 %; Eosinophils # 0.1 10^3/uL (0.0-0.8); Eosinophils % 1.1 %; Hematocrit 28.6 % (37.0-47.0); Hemoglobin 8.7 g/dL (11.5-15.3); Lymphocytes # 2.1 10^3/uL (0.8-4.8); Lymphocytes % 20.6 %; Mean Corpuscular HGB Conc 30.4 g/dL (30.0-36.0); Mean Platelet Volume 10.6 fL (7.4-10.4); Monocytes # 0.7 10^3/uL (0.2-0.9); Monocytes % 6.6 %; Neutrophils # 7.11 10^3/uL (1.8-7.7); Neutrophils % 69.9 %; Nucleated Red Blood Cells % 0 %; Platelet Count 457 10^3/cmm (130-400); Red Blood Count 3.62 10^6/uL (4.1-5.3); Red Cell Distribution Width 17.3 % (12.1-15.1); White Blood Count 10.2 10^3/uL (4.0-10.0)
[2022-04-22 16:44] LABS: Albumin Level 4.1 g/dL (3.5-5.2); Alkaline Phosphatase 130 U/L (35-105); Anion Gap 17.8 (5-19); Aspartate Amino Transferase 17 U/L (0-32); Blood Urea Nitrogen 18 mg/dL (8-23); C Reactive Protein 130.5 mg/L (0.0-4.9); Calcium 9.1 mg/dL (8.5-10.5); Carbon Dioxide 29 mmol/L (22-29); Chloride 93 mmol/L (98-107); Globulin 4.4 g/dL (1.3-4.6); Glomerular Filtration Rate 55.1 mL/min (90-130); Glucose 102 mg/dL (65-115); Osmolality Calculated 284 mOsm/kg (285-295); Potassium 3.8 mmol/L (3.5-5.1); Sodium 136 mmol/L (136-145); Total Bilirubin 0.3 mg/dL (0.15-1.2); Total Protein 8.5 g/dL (6.6-8.7)
[2022-04-22 17:21] LABS: Alanine Aminotransferase 10 U/L (0-33)
[2022-04-23 12:49] LABS: Cyclic Citrullinated Peptide >250 UNITS
[2022-04-23 15:55] LABS: Anti-Double Strand DNA AB 1 IU/mL; Jo-1 Antibody <1.0 NEG AI (<1.0 NEG); SM/RNP Antibodies <1.0 NEG AI (<1.0 NEG); SS-B/LA IGG <1.0 NEG AI (<1.0 NEG); Scleroderma Ab(Scl-70) Ab <1.0 NEG AI (<1.0 NEG); Ss-A/Ro Igg <1.0 NEG AI (<1.0 NEG)
[2022-04-28 15:20] LABS: Erythrocyte Sedimentation Rate 130 mm/hr (0-15)
== END 2022-04-22 14:21 | disposition home or self-care (01) ==
LOC: LAB 14:24
PROVIDERS: Visit Provider Family Medicine
DX: K21.00 Gastro-esophageal reflux disease with esophagitis, without bleeding (principal); K44.9 Diaphragmatic hernia without obstruction or gangrene; M06.9 Rheumatoid arthritis, unspecified
CPT/HCPCS: 36415; 80053; 81003; 85025; 85651; 86140; 86200; 86225; 86235; 86431

== ENCOUNTER → 2022-05-05 13:38 | Outpatient (BNVA) | payer MEDICARE, OTHER, SELFPAY | PROVIDERS: Referring Provider Family Medicine; Visit Provider Physician Assistant | DX: M43.16 Spondylolisthesis, lumbar region (principal); M48.062 Spinal stenosis, lumbar region with neurogenic claudication | CPT/HCPCS: 72110; 99203 ==

== ENCOUNTER 2022-05-08 10:41 | Outpatient (RCR) | payer MEDICARE, OTHER, SELFPAY | END 2022-05-12 23:59 | disposition home or self-care (01) | LOC: SPT 10:41 | PROVIDERS: Visit Provider Family Medicine | DX: M54.2 Cervicalgia (principal); G89.29 Other chronic pain; M54.9 Dorsalgia, unspecified | CPT/HCPCS: 97161 ==

== ENCOUNTER 2022-05-13 06:00 | Outpatient (RCR) | payer MEDICARE, OTHER, SELFPAY | END 2022-06-09 23:59 | disposition home or self-care (01) | LOC: SPT 06:00 | PROVIDERS: Visit Provider Family Medicine | DX: M54.2 Cervicalgia (principal); M54.9 Dorsalgia, unspecified; G89.29 Other chronic pain | CPT/HCPCS: 97110 ==

== ENCOUNTER → 2022-05-14 08:34 | Outpatient (BNVA) | payer MEDICARE, OTHER, SELFPAY | PROVIDERS: Referring Provider Family Medicine; Visit Provider Nurse Practitioner Family | DX: M25.512 Pain in left shoulder (principal); Z76.89 Persons encountering health services in other specified circumstances; G89.29 Other chronic pain | CPT/HCPCS: 73030; 99214 ==

== ENCOUNTER 2022-05-18 07:51 | Outpatient (CLI) | payer MEDICARE, OTHER, SELFPAY ==
--- NOTE | 2022-05-18 08:00 | MR_ITS ---
WS: [id number] MRI LUMBAR SPINE NONCONTRAST HISTORY: lower back pain COMPARISON: Radiograph 05/05/2022 TECHNIQUE: Sagittal and axial multisequence imaging is submitted. Mild degenerative disc disease at narrowing of the central cervical canal from C3-4 through C5-6. Mild increase in the lumbar lordosis. L2 retrolisthesis by 4 mm. L3 retrolisthesis by 2 mm and L4 ret rolisthesis by 3.5 mm. No marrow edema or fracture. Prior vertebroplasties at L4 and L5. Disc spaces are narrowed and desiccated most significant at L2-3. Vertebral body osteophytosis is mos t significant at L2-3. Conus terminates normally at L1-2 disc level. T11-12: Small central disc protrusion. L1-L2: Mild annular disc bulging with ligamentum flavum hypertrophy and facet arthritis. Mild bilater al subarticular recess encroachment, LEFT greater than RIGHT. L2-L3: Marked annular disc bulging. Disc is asymmetric to the LEFT and there is a LEFT subarticular r ecess disc protrusion. There is deformity of the thecal sac by the disc protrusion mild central steno sis. Moderate bilateral subarticular recess stenosis, LEFT greater than RIGHT with displacement of th e traversing LEFT L3 nerve root. Mild foraminal stenosis. L3-L4: Marked annular disc bulging with ligamentum flavum hypertrophy and facet arthritis. Disc exten ds asymmetrically to the LEFT there is likely a disc protrusion extending into the LEFT foramen causi ng significant stenosis and contacting the LEFT L3 and L4 nerve roots. Mild RIGHT subarticular recess and foraminal stenosis. Moderate central stenosis. L4-L5: Diffuse annular disc bulging with moderate ligamentum flavum hypertrophy and facet arthritis. Embedded within the RIGHT ligamentum flavum is an 11 x 7 mm T2 bright nodule which may be an osteophy te or complex facet joint cyst. Causing mass effect upon the RIGHT lateral thecal sac. Contributing t o moderate stenosis of the central canal and moderate bilateral subarticular recess and foraminal cindy nosis. L5-S1: Diffuse annular disc bulging with marked ligamentum flavum hypertrophy and facet arthritis. Mi ld bilateral foraminal stenosis. Atherosclerotic changes within the abdominal aorta. Small cortical renal cysts. MR/MR lumbar spine wo con* [id number] IMPRESSION: 1. Advanced degenerative disc and facet arthritis throughout the lumbar spine. 2. Prior vertebroplasties at L4 and L5. 3. Retrolisthesis of L2, L3 and L4. Most significant involving L2 by 4 mm. 4. Moderate central, bilateral subarticular recess and foraminal stenosis at L 4-5. Embedded within the RIGHT ligamentum flavum is an 11 x 7 mm mixed signal i ntensity nodule which may be facet joint cyst or osteophyte. This is contributi ng to the stenosis and deforming the RIGHT lateral thecal sac. 5. Diffuse annular disc bulging with a moderate-sized LEFT subarticular disc p rotrusion at L2-3. Moderate bilateral subarticular recess stenosis, LEFT greate r than RIGHT with encroachment upon the traversing LEFT L3 nerve root. Mild tang tral and bilateral foraminal stenosis. 6. LEFT foraminal stenosis with a disc protrusion contacting the LEFT L3 and L 4 nerve roots. Moderate central and RIGHT subarticular recess and foraminal cindy nosis at L3-4. 7. Mild bilateral foraminal stenosis at L5-S1. 8. Mild bilateral subarticular recess stenosis at L1-2.
== END 2022-05-18 07:52 | disposition home or self-care (01) ==
LOC: RAD 07:52
PROVIDERS: Visit Provider Physician Assistant
DX: G89.29 Other chronic pain (principal); M48.061 Spinal stenosis, lumbar region without neurogenic claudication; M48.07 Spinal stenosis, lumbosacral region; M47.816 Spondylosis without myelopathy or radiculopathy, lumbar region; M51.26 Other intervertebral disc displacement, lumbar region
CPT/HCPCS: 72148

== ENCOUNTER → 2022-05-28 14:44 | Outpatient (BNVA) | payer MEDICARE, OTHER, SELFPAY | PROVIDERS: PCP Family Medicine Adult Medicine; Visit Provider Physician Assistant | DX: M48.062 Spinal stenosis, lumbar region with neurogenic claudication (principal); M54.12 Radiculopathy, cervical region; M25.512 Pain in left shoulder | CPT/HCPCS: 72040; 99213 ==

== ENCOUNTER 2022-06-17 11:43 | Inpatient (IN) | payer MEDICARE, OTHER, SELFPAY ==
[2022-06-17] VITALS (12 sets, daily range): BP systolic 96–129; BP diastolic 43–66; PULSE 42–78; RESP 16–24; TEMP 36.4–37.7; O2SAT 94–98; BMI 24.0; BMI 25.2
--- NOTE | 2022-06-17 12:09 | ECG_ITS ---
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 Measurements Intervals [place] Rate: 75 P: 64 ID: [id number] QRS: 50 QRSD: 80 T: 57 QT: 386 QTc: 433 Interpretive Statements SINUS RHYTHM WITH OCCASIONAL SUPRAVENTRICULAR PREMATURE COMPLEXES LOW QRS VOLTAGE IN PRECORDIAL LEADS [QRS DEFLECTION < 1.0 mV IN CHEST LEADS] Compared to ECG 04/13/2022 08:32:15 Low QRS voltage now present Electronically Signed On 06-17-2022 15:07:20 PLUMBING DESIGNER by Feliciano Fields M.D. [email or web address]
--- NOTE | 2022-06-17 12:16 | ED_ITS ---
HPI - SOB/Dyspnea General: Chief Complaint: ER Hold Stated Complaint: sob Time Seen by Provider: 06/17/22 12:16 History of Present Illness: HPI Narrative: Ms. Perry is a 67-year-old lady with history of COVID in April, CKD, prediabetes, denies history of lung disease though room smells like cigarette smoke presented to the emergency department for shortness of breath and generalized malaise. She notes onset of symptoms over the past few days gradually with shortness of breath and productive cough. She has a frontal headache and denies frequent history of headaches. She reports fevers. Associated generalized malaise. Intensity symptoms is moderate to severe. Course has persisted. No other specific changes in health, exacerbating, or alleviating factors identified. Onset (ago): day(s) Timing: progressively worsening Severity: severe Exacerbating factors: exertion Associated symptoms: Reports chest congestion, cough, fever(s), nausea, vomiting and other Review of Systems General: Reports: 10 or more systems reviewed and unremarkable except in HPI and below Const: Reports: fever(s) Resp: Reports: chest congestion GI: Reports: nausea and vomiting PFSH ED PFSH: Medical History (Updated 06/29/22 @ 12:10 by Nick Pan MD) Abnormal movements Abnormal toxicological findings Acute encephalopathy Acute renal failure Acute respiratory failure with hypoxemia Adjustment insomnia ZAHRA (acute kidney injury) Altered mental status AMS (altered mental status) Anemia Anxiety about health Aspiration into airway Bilateral lower extremity edema Chronic back pain CKD (chronic kidney disease) stage 3, GFR 30-59 ml/min Coffee ground emesis COVID-19 Depression determined by examination Extrapyramidal and movement disorder High risk medication use Hyperlipidemia Hypokalemia Hypomagnesemia Hypothyroidism Immunization counseling Iron deficiency anemia Lung nodule, solitary Multifocal pneumonia Prediabetes Prolonged QT interval Rheumatoid arthritis Sepsis Seropositive rheumatoid arthritis of multiple sites Surgical History (Updated 06/29/22 @ 12:10 by Nick Pan MD) History of ankle surgery left History of appendectomy History of delivery History of cholecystectomy History of hysterectomy with bilateral oophorectomy Previous back surgery Social History Smoking and tobacco status: former smoker Alcohol intake: current Alcohol intake frequency: holidays/special occasions only Physical Exam Const: COMMON NORMALS: alert GENERAL APPEARANCE: cooperative, well developed and ill appearing HENMT: COMMON NORMALS: normocephalic and atraumatic HEAD & SCALP: normocephalic and atraumatic Eye: COMMON NORMALS: conjunctivae normal CONJUNCTIVA: Yes conjunctivae normal SCLERA: sclerae normal Neck/C-Spine: COMMON NORMALS: supple GENERAL: Yes trachea midline Resp: EFFORT & INSPECTION: Yes able to speak in complete sentences and Yes tachypneic AUSCULTATION: diminished lung sounds Cardio: COMMON NORMALS: regular rate and regular rhythm RATE: regular rate RHYTHM: regular rhythm GI: COMMON NORMALS: Soft to palpation PALPATION: Yes Soft to palpation and No Tenderness to palpation present (GI) PERCUSSION: normal to percussion Extremity: GENERAL: Yes normal exam except as noted and No edema Neuro: COMMON NORMALS: moves all extremities SENSORIUM/ORIENTATION: Yes alert and No Orientation impaired Psych: COMMON NORMALS: mental status grossly normal and Normal thought process present THOUGHT PROCESS: Normal thought process present Course Vital Signs: Vital signs: Vital Signs Temperature 99.6 F 06/21/22 12:26 Pulse Rate 72 06/21/22 12:26 Respiratory Rate 26 H 06/21/22 12:26 Blood Pressure 157/80 06/21/22 12:26 Pulse Oximetry 95 06/21/22 12:26 Oxygen Delivery Me thod 06/21/22 11:52 Oxygen Flow Rate 2 06/19/22 02:38 MDM - SOB/Dyspnea Medical Decision Making 67-year-old lady presenting with respiratory symptoms. Patient has new oxygen requirement. She is nontoxic in appearance. EKG notable for sinus rhythm, normal axis and intervals, no STEMI. Labs notable for leukocytosis, microcytic anemia, normal platelet count. Metabolic panel with mild evidence of intravascular dehydration, hypokalemia noted. Lactic acid is elevated negative range 2-hour delta troponin. ABG with hypoxemia and respiratory alkalosis. Chest x-ray with no lobar consolidation or pneumothorax. Overall unimpressive given severity of illness and additional imaging is felt to be appropriate. CT head negative for acute intracranial pathology.. CT chest abdomen pelvis with multifocal pneumonia. During ED course patient treated with steroids, analgesia, RT treatment, fluids, broad-spectrum antibiotics. Most likely etiology of patient's symptoms is pneumonia and sepsis. The results of ED evaluation were discussed with the patient including plan for admission due to requirement for level of care not available if discharged to prevent significant worsening/deterioration. Patient agreeable with plan. Discussed with hospitalist service who was agreeable to admit patient. Medical Records I reviewed the patient's medical records. Lab Data I reviewed the patient's lab results. 06/21/22 04:50 06/21/22 04:50 Labs/Radiology: Radiology Impressions Chest/Abdomen/Pelvis CT 06/17/22 14:26 IMPRESSION: 1. Progressed nodular infiltrates in the RIGHT lower lobe and about the RIGHT hilum have developed since the prior examination April 13, 2022 suspicious for multifocal pneumonia. Recommend follow-up to resolution to exclude metastatic disease. 2. Chronic emphysematous changes with interstitial thickening and diffuse nodular interstitial infiltrates in the RIGHT greater than LEFT upper lobe similar to previous. 3. Prominent LEFT AP window lymph node measuring 14 mm 4. No evidence of pulmonary embolus. 5. Moderate esophageal hiatal hernia appears progressed compared to previous. Suspected associated distal esophagitis with gastritis and duodenitis. 6. Cardiomegaly. 7. No acute findings in the abdomen or pelvis. Chest X-Ray 06/19/22 15:28 Impression: Atherosclerosis. Head CT 06/20/22 11:59 IMPRESSION: No acute intracranial abnormality. Laboratory Results WBC 19.8 10^3/uL (4.0-10.0) H 06/17/22 13:45 RBC 3.83 10^6/uL (4.1-5.3) L 06/17/22 13:45 Hgb 8.5 g/dL (11.5-15.3) L 06/17/22 13:45 Hct 28.4 % (37.0-47.0) L 06/17/22 13:45 MCV 74.2 fl (81-99) L 06/17/22 13:45 MCH 22.2 pg (28.0-34.0) L 06/17/22 13:45 MCHC 29.9 g/dL (30.0-36.0) L 06/17/22 13:45 RDW 16.9 % (12.1-15.1) H 06/17/22 13:45 Plt Count 322 10^3/cmm (130-400) 06/17/22 13:45 MPV 9.7 fL (7.4-10.4) 06/17/22 13:45 Neut % (Auto) 82.9 % 06/17/22 13:45 Lymph % (Auto) 8.3 % 06/17/22 13:45 Buchanan % (Auto) 7.9 % 06/17/22 13:45 Eos % (Auto) 0.0 % 06/17/22 13:45 Baso % (Auto) 0.3 % 06/17/22 13:45 Neut # (Auto) 16.38 10^3/uL (1.8-7.7) H 06/17/22 13:45 Lymph # (Auto) 1.6 10^3/uL (0.8-4.8) 06/17/22 13:45 Buchanan # (Auto) 1.6 10^3/uL (0.2-0.9) H 06/17/22 13:45 Eos # (Auto) 0.0 10^3/uL (0.0-0.8) 06/17/22 13:45 Baso # (Auto) 0.1 10^3/uL (0.0-0.1) 06/17/22 13:45 Nucleated RBC % (auto) 0 % 06/17/22 13:45 Nucleated RBCs # 0.0 /100WBC 06/17/22 13:45 ESR 40 mm/hr (0-15) H 06/17/22 13:35 Specimen Type Arterial 06/17/22 12:35 Sample Site Radial, left 06/17/22 12:35 ABG pH 7.54 (7.35-7.45) H 06/17/22 12:35 ABG pCO2 30.7 mmHg (35-45) L 06/17/22 12:35 ABG pO2 55.0 mmHg (80.0-100.0) L 06/17/22 12:35 ABG HCO3 26.0 mmol/L (22-26) 06/17/22 12:35 ABG Base Excess 3.4 mmol/L (-2.0-2.0) H 06/17/22 12:35 Shahzad Test Pos 06/17/22 12:35 Hematocrit 26.4 % (37-47) L 06/17/22 12:35 Hgb O2 Saturation 88.3 % (95-100) L 06/17/22 12:35 Carboxyhemoglobin 2.4 %THgb (0.4-20.1) 06/17/22 12:35 Methemoglobin 0.3 % (0.4-1.5) L 06/17/22 12:35 Total Hemoglobin 8.6 g/dL (12-16) L 06/17/22 12:35 O2 Delivery Device Room air 06/17/22 12:35 FiO2 21.0 % 06/17/22 12:35 Sales Representative Printing ID Cak 06/17/22 12:35 Sodium 134 mmol/L (136-145) L 06/17/22 13:45 Potassium 3.2 mmol/L (3.5-5.1) L 06/17/22 13:45 Chloride 94 mmol/L (98-107) L 06/17/22 13:45 Carbon Dioxide 24 mmol/L (22-29) 06/17/22 13:45 Anion Gap 19.2 (5-19) H 06/17/22 13:45 BUN 15 mg/dL (8-23) 06/17/22 13:45 Creatinine 1.1 mg/dL (0.5-0.9) H 06/17/22 13:45 GFR Calculation 49.4 mL/min (90-130) L 06/17/22 13:45 Glucose 127 mg/dL (65-115) H 06/17/22 13:45 Calculated Osmolality 280 mOsm/kg (285-295) L 06/17/22 13:45 Lactic Acid 2.9 mmol/L (0.5-2.2) H 06/17/22 13:45 Calcium 8.9 mg/dL (8.5-10.5) 06/17/22 13:45 Total Bilirubin 0.6 mg/dL (0.15-1.2) 06/17/22 13:45 AST 20 U/L (0-32) 06/17/22 13:45 ALT 7 U/L (0-33) 06/17/22 13:45 Alkaline Phosphatase 127 U/L (35-105) H 06/17/22 13:45 Troponin T Baseline 21 ng/L (0-10) H 06/17/22 13:45 Troponin T 120 Minute 22.30 ng/L (0-10) H 06/17/22 15:43 Delta Troponin T 1.30 ABS# (0-10) 06/17/22 15:43 C-Reactive Protein 75.8 mg/L (0.0-4.9) H 06/17/22 13:46 NT-Pro-B Natriuret Pep 1916 pg/mL (0-125) H 06/17/22 13:45 Total Protein 7.6 g/dL (6.6-8.7) 06/17/22 13:45 Albumin 3.7 g/dL (3.5-5.2) 06/17/22 13:45 Globulin 3.9 g/dL (1.3-4.6) 06/17/22 13:45 Vitamin B12 544 pg/mL (232-1245) 06/17/22 15:43 Folate 14.3 ng/mL (4.8-37.3) 06/17/22 13:30 Procalcitonin 35.02 ng/mL (0-0.5) H 06/17/22 13:46 Coronavirus 229E (PCR) Not detected (NOT DETECT) 06/17/22 12:55 SARS-CoV-2 (PCR) Not detected (NOT DETECT) 06/17/22 12:55 Discharge Plan Discharge Patient Disposition: Admitted As Inpatient Admit Provider: Claudy Castañeda Clinical Impression: Pneumonia, Sepsis Condition: Stable Discharge Diet: Cardiac Discharge Activity: Resume usual activity and Increase activity as tolerated Coding Level of Care Code ED Retail Assistant for Maribel Sweet
--- NOTE | 2022-06-17 12:24 | XR_ITS ---
WS: [id number] Portable AP upright chest, 06/17/2022 Clinical Data: sob Comparison: Portable chest, 04/13/2022 Findings: No nodules, masses or effusions are seen. The heart is normal. The pulmonary vascularity is not increased. No pneumonia or pneumothorax is seen. The aortic arch and descending thoracic aorta s how tortuosity. The patient is rotated to the right. XR/XR chest 1V portable [id number] Impression: Atherosclerosis.
--- NOTE | 2022-06-17 12:24 | ECG_ITS ---
[facility] Test Date: 2022-06-17 Pat Name: Tosha Perry Department: Room: Gender: Female Rn Hospice: : 1955 Requested By: Matty Ding Order Number: [id number] Mirela MD: Feliciano Fields M.D. Measurements Intervals [place] Rate: 72 P: 67 SC: 151 QRS: 60 QRSD: 99 T: 61 QT: 428 QTc: 471 Interpretive Statements SINUS RHYTHM WITH OCCASIONAL SUPRAVENTRICULAR PREMATURE COMPLEXES LOW QRS VOLTAGE IN PRECORDIAL LEADS [QRS DEFLECTION < 1.0 mV IN CHEST LEADS] Compared to ECG 06/17/2022 12:09:29 No significant changes Electronically Signed On 06-17-2022 15:07:44 HATCHERY SUPERVISOR by Feliciano Fields M.D. [id number]
[2022-06-17] MEDS: ipratropium-albuterol 3 mL Neb INHALATION ×2 (12:33→20:36)
--- NOTE | 2022-06-17 12:45 | PC.NURSE ---
pt on bedside alarm security or surveillance monitor
[2022-06-17 12:46] LABS: ABG PCO2 30.7 mmHg (35-45); ABG PH Result 7.54 (7.35-7.45); Arterial Blood Gas Hematocrit 26.4 % (37-47); Base Excess ABG 3.4 mmol/L (-2.0-2.0); Blood Gas Allen Test Pos; Blood Gas Operator Identificat CAK; Blood Gas Sample Site Radial, left; Blood Gas Sample Type Arterial; Carboxyhemoglobin 2.4 %THgb (0.4-20.1); HGB O2 Sat 88.3 % (95-100); Methemoglobin 0.3 % (0.4-1.5); Oxygen Device ROOM AIR; Total Hemoglobin 8.6 g/dL (12-16)
[2022-06-17] MEDS: acetaminophen 500 mg Tablet 1000 MG PO (13:13)
[2022-06-17] MEDS: ketorolac 30 mg/mL INJ 15 MG IVP (13:40)
--- NOTE | 2022-06-17 13:45 | PC.PHAR ---
Addendum entered by Sabra Gonzales 06/17/22 13:49: pt state the dr increased her lasix to 80mg daily prn ext med history shows last filled 05/03/22 90d/s 40mg daily prn Original Note: pt states she takes care of her own medications-pt states she has fluoxetine 40mg daily prn but doesnt really take ext med history shows last filled 04/28/22 90d/s for 40mg daily-pt states she no longer takes iron 324mg bid written on 05/25/22 pt states not taken for a month-notes are made in the pharmacy comments
[2022-06-17 13:57] LABS: Basophils # 0.1 10^3/uL (0.0-0.1); Basophils % 0.3 %; Hematocrit 28.4 % (37.0-47.0); Hemoglobin 8.5 g/dL (11.5-15.3); Lymphocytes # 1.6 10^3/uL (0.8-4.8); Lymphocytes % 8.3 %; Mean Corpuscular HGB Conc 29.9 g/dL (30.0-36.0); Mean Corpuscular Hemoglobin 22.2 pg (28.0-34.0); Mean Corpuscular Volume 74.2 fl (81-99); Mean Platelet Volume 9.7 fL (7.4-10.4); Monocytes # 1.6 10^3/uL (0.2-0.9); Monocytes % 7.9 %; Neutrophils # 16.38 10^3/uL (1.8-7.7); Neutrophils % 82.9 %; Nucleated Red Blood Cells % 0 %; Platelet Count 322 10^3/cmm (130-400); Red Blood Count 3.83 10^6/uL (4.1-5.3); Red Cell Distribution Width 16.9 % (12.1-15.1); White Blood Count 19.8 10^3/uL (4.0-10.0)
[2022-06-17] MEDS: sodium chloride 0.9% 1,000 ML 999 ML IV ×2 (14:20→16:17)
[2022-06-17 14:22] LABS: Lactic Sepsis W/Reflex 2.9 mmol/L (0.5-2.2)
--- NOTE | 2022-06-17 14:24 | ECG_ITS ---
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 Measurements Intervals [place] Rate: 70 P: 61 DE: 161 QRS: 31 QRSD: 110 T: 42 QT: 434 QTc: 468 Interpretive Statements SINUS RHYTHM WITH OCCASIONAL SUPRAVENTRICULAR PREMATURE COMPLEXES Compared to ECG 06/17/2022 13:06:16 No significant changes Electronically Signed On 06-17-2022 15:13:19 ALFALFA DEHYDRATOR OPERATOR by Feliciano Fields M.D. [id number]
--- NOTE | 2022-06-17 14:26 | CT_ITS ---
WS: [id number] CTA CHEST FOLLOWED BY ABDOMEN AND PELVIS TECHNIQUE: Contrast enhanced CTA of the chest and abdomen pelvis with coronal and sagittal reformatte d images and additional MIP Images. CLINICAL INFORMATION: sob, cough, SIRS, diarrhea ?source of infection COMPARISON: April 13, 2022 DLP: 795.[address] scans at [facility] use at least one of these dose optimization techniques: automated e xposure control; mA and/or kV adjustment per patient size (includes targeted exams where dose is matc hed to clinical indication); or iterative reconstruction. FINDINGS: Multifocal nodular infiltrates in the RIGHT lower lobe have progressed compared to previous. This ext ends about the RIGHT hilum. Diffuse interstitial infiltrates in both lungs similar to previous with n odularity. No significant pleural fluid. Recommend follow-up to resolution. Bronchovascular thickenin g along both anjali. A few reactive anterior mediastinal lymph nodes. Enlarged AP window lymph node samuel suring 1.4 CM. No axillary lymphadenopathy. Proximal main pulmonary arteries are normal. Normal segmental and subsegmental pulmonary arteries. No evidence of pulmonary embolus. Normal caliber thoracic aorta. Moderate esophageal hiatal hernia. Mod erate thoracic kyphosis. Diffuse fatty infiltration the liver. Hepatomegaly. Cholecystectomy. Normal portal vein and splenic v ein. Normal spleen. Fatty atrophy of the pancreas. Moderate esophageal hiatal hernia. Air-fluid level in the duodenum. No evidence of high-grade obstruction. Normal caliber abdominal aorta. Celiac and S MA are patent. Mild aortic calcification. No periaortic or peritoneal lymphadenopathy. Adrenal glands are normal. Normal renal parenchymal enhancement. No hydronephrosis. Tiny LEFT renal cyst. Sigmoid diverticulosis. No evidence of acute diverticulitis. Tiny fat-containing umbilical hernia. Ce liac and SMA are patent. Post kyphoplasty changes L4-L5.No acute findings in the abdomen or pelvis. CT/CT angio chest w abd pel w con IMPRESSION: 1. Progressed nodular infiltrates in the RIGHT lower lobe and about the RIGHT hilum have developed since the prior examination April 13, 2022 suspicious fo r multifocal pneumonia. Recommend follow-up to resolution to exclude metastatic disease. 2. Chronic emphysematous changes with interstitial thickening and diffuse nodu lar interstitial infiltrates in the RIGHT greater than LEFT upper lobe similar to previous. 3. Prominent LEFT AP window lymph node measuring 14 mm 4. No evidence of pulmonary embolus. 5. Moderate esophageal hiatal hernia appears progressed compared to previous. Suspected associated distal esophagitis with gastritis and duodenitis. 6. Cardiomegaly. 7. No acute findings in the abdomen or pelvis.
--- NOTE | 2022-06-17 14:26 | CT_ITS ---
WS: [id number] CT HEAD TECHNIQUE: Noncontrast CT of the head obtained from the skullbase to the vertex. CLINICAL INFORMATION: headache COMPARISON: None. DLP: 1092.[address] scans at [facility] use at least one of these dose optimization techniques: automated e xposure control; mA and/or kV adjustment per patient size (includes targeted exams where dose is matc hed to clinical indication); or iterative reconstruction. FINDINGS: No evidence of intracranial hemorrhage or mass effect. Ventricular system and basal cisterns are yeboah nt. Mild small vessel changes with mild parenchymal volume loss. Vascular calcification. Benign incid ental basal ganglia calcifications. No extra-axial fluid collections. No evidence of mass or mass eff ect. Paranasal sinuses and mastoid air cells are well aerated. .Normal visualized soft tissues. Normal pos terior nasopharynx. CT/CT head wo con* [id number] IMPRESSION: 1. No evidence of intracranial hemorrhage or mass effect. 2. No acute intracranial findings.
[2022-06-17 14:27] LABS: C Reactive Protein 75.8 mg/L (0.0-4.9)
[2022-06-17 14:32] LABS: Alanine Aminotransferase 7 U/L (0-33); Albumin Level 3.7 g/dL (3.5-5.2); Alkaline Phosphatase 127 U/L (35-105); Anion Gap 19.2 (5-19); Aspartate Amino Transferase 20 U/L (0-32); Blood Urea Nitrogen 15 mg/dL (8-23); Calcium 8.9 mg/dL (8.5-10.5); Carbon Dioxide 24 mmol/L (22-29); Chloride 94 mmol/L (98-107); Globulin 3.9 g/dL (1.3-4.6); Glomerular Filtration Rate 49.4 mL/min (90-130); Glucose 127 mg/dL (65-115); NT Pro B Type Natriuretic Pept 1916 pg/mL (0-125); Osmolality Calculated 280 mOsm/kg (285-295); Potassium 3.2 mmol/L (3.5-5.1); Sodium 134 mmol/L (136-145); Total Bilirubin 0.6 mg/dL (0.15-1.2); Total Protein 7.6 g/dL (6.6-8.7)
[2022-06-17 14:34] LABS: Procalcitonin 35.02 ng/mL (0-0.5)
[2022-06-17 14:47] LABS: Adenovirus Not Detected (NOT DETECT); Chlamydia Pneumoniae Not Detected (NOT DETECT); Coronavirus 229E,HKU1,NL63,OC4 Not Detected (NOT DETECT); Human Metapneumovirus Not Detected (NOT DETECT); Human Rhinovirus/Enterovirus Not Detected (NOT DETECT); Influenza A Not Detected (NOT DETECT); Influenza A H1 Not Detected (NOT DETECT); Influenza A H1-2009 Not Detected (NOT DETECT); Influenza A H3 Not Detected (NOT DETECT); Influenza B Not Detected (NOT DETECT); Mycoplasma Pneumoniae Not Detected (NOT DETECT); Parainfluenza Virus Type 1 Not Detected (NOT DETECT); Parainfluenza Virus Type 2 Not Detected (NOT DETECT); Parainfluenza Virus Type 3 Not Detected (NOT DETECT); Parainfluenza Virus Type 4 Not Detected (NOT DETECT); Respiratory Syncytial Virus A Not Detected (NOT DETECT); Respiratory Syncytial Virus B Not Detected (NOT DETECT); SARS-COV-2 Not Detected (NOT DETECT)
[2022-06-17] MEDS: piperacillin-tazobactam 4.5 GM in sodium chloride 0.9% (plus) 50 ML IV (14:49)
[2022-06-17] MEDS: morphine 4 mg/mL SDV 1 mL IVP (14:50)
[2022-06-17 15:15] LABS: Troponin(5th) Baseline 21 ng/L (0-10)
[2022-06-17] MEDS: iohexol 350 mg/mL 500 mL Btl (per mL) IV (15:34)
[2022-06-17 15:42] LABS: Reflex Lactate Order REFLEX LACTIC ORDERD
--- NOTE | 2022-06-17 16:53 | USCV_ITS ---
Tosha Perry Age: 67 Gender: F : 1955 Exam Date: 06/17/2022 19:27 Ordering Phys: Claudy Castañeda MD Technologist: LAILA [place] [facility] [place]ication: CHF SOB long-term smoker, continues smoking. No history of cardiac intervention per patient. BP: 96 / 43 HR: 48 Rhythm: Sinus bradycardia Technical Quality: Adequate MEASUREMENTS (Male / Female) Normal Values 2D ECHO LV Diastolic Diameter PLAX 3.8 cm 4.2 - 5.9 / 3.9 - 5.3 cm LV Systolic Diameter PLAX 2.4 cm IVS Diastolic Thickness 1.0 cm 0.6 - 1.0 / 0.6 - 0.9 cm IVS Systolic Thickness 1.8 cm LVPW Diastolic Thickness 1.2 cm 0.6 - 1.0 / 0.6 - 0.9 cm LVPW Systolic Thickness 1.1 cm LVOT Diameter 1.8 cm LV Ejection Fraction 2D Teich 66.8 % LV Ejection Fraction MOD 2C 61.1 % LV Ejection Fraction 2C AL 60.7 % LA Diameter 4.1 cm LA Width 3.3 cm LA Height 5.7 cm RA Width 4.0 cm RA Height 5.1 cm Aorta at Sinotubular Diameter 2.6 cm IVC Diameter 2.3 cm M-MODE Aortic Annulus Diameter 3.1 cm LA Ao Ratio MM 1.3 MV E Point Septal Separation 0.3 cm DOPPLER AV Peak Velocity 149.0 cm/s LVOT Peak Velocity 102.0 cm/s AV Area Cont Eq vti 1.8 cm squared AV Area Cont Eq pk 1.8 cm squared MV Peak Velocity 162.0 cm/s MV Area PHT 2.7 cm squared Mitral E to A Ratio 1.6 MV E' Velocity 79.0 cm/s Mitral E to MV E' Ratio 11.5 Mitral E to LV E' Lateral Ratio 10.9 Mitral E to LV E' Septal Ratio 12.2 TR Peak Velocity 287.3 cm/s TR Peak Gradient 33.0 mmHg TV Peak E Velocity 74.0 cm/s Right Atrial Pressure 10.0 mmHg Pulmonary Artery Systolic Pressu 43.0 mmHg PV Peak Velocity 97.0 cm/s RV Acceleration Time 0.2 s RV Ejection Time 0.4 s RV AcT/ET 0.4 FINDINGS Left Ventricle Normal left ventricular size and systolic function, EF 63 %. No regional wall motion abnormalities. Mild left ventricular hypertrophy. Right Ventricle The right ventricle is normal in size and function. Right Atrium The right atrium is normal in size. Left Atrium Mildly increased left atrial size. Mitral Valve Trace mitral valve regurgitation. Aortic Valve Thickened aortic valve. Tricuspid Valve Moderate tricuspid valve regurgitation. Mild pulmonary hypertension with estimated pulmonary artery peak systolic pressure of 43 mmHg Pulmonic Valve Trace pulmonary valve regurgitation. Pericardium Normal pericardium without effusion. Aorta Normal ascending aorta dimension. IVC Dilated IVC with decreased respiratory variation. CONCLUSIONS Normal left ventricular size and systolic function, EF 63 %. No regional wall motion abnormalities. Mild left ventricular hypertrophy. Mildly increased left atrial size. Moderate tricuspid valve regurgitation. Mild pulmonary hypertension with estimated pulmonary artery peak systolic pressure of 43 mmHg. Thickened aortic valve. Trace mitral valve regurgitation. There is no pericardial effusion. There are no intracardiac masses. No similar previous studies are available for comparison Dr Sherine Greene MD FACC (Electronically Signed) Final Date: 17 June 2022 23:08 S
--- NOTE | 2022-06-17 17:04 | P.HP_ITS ---
Providers/Chief Complaint Admitting Physician: Claudy Castañeda MD Primary Care Provider: Kaiser Lisa MD Chief Complaint: sob History of Present Illness Tosha Perry is a 67 year old female with past medical history of rheumatoid arthritis previously on methotrexate which she is not taking currently, CKD stage III with baseline creatinine of around 1-1.2 with recent history of COVID- 19 in April 2022 leading to hypoxic respiratory failure and hypovolemic shock requiring pressors and ICU, prediabetes, hypothyroidism who presents to the hospital because of difficulty in breathing along with cough and expectoration which is more than usual and high-grade fever for the last 2 days. Patient states she was at her baseline health with cough and expectoration still yesterday morning when her symptoms are aggravated. Right now she is also complaining of headache. Denies any sick contacts or recent travels. Complaining of nausea, vomiting and diarrhea. Blood work in the ER showed a white count 19,000, hemoglobin of 8.5, ABG showing a pH of 7.54 with PCO2 30, PO2 of 55, chemistry showing a sodium of 134, potassium 3.2, BUN of 15, creatinine of 1.1 with a lactate of 2.9, alkaline phosphatase of 127, baseline troponin of 21 with delta of 1.3 in 2 hours, CRP of 75 with proBNP of 1916 and procalcitonin of 35. Patient underwent CT chest abdomen pelvis with results as below. Review of Systems General: Reports: 10 or more systems reviewed and unremarkable except in HPI and below Const: Denies: fever(s), chills, body aches, change in appetite, change in we ight, malaise, night sweats, diaphoresis, change in sleep pattern, daytime sleepiness or snoring Eyes: Denies: change in vision, blurry vision, photophobia, eye discomfort or eye discharge ENMT: Denies: throat pain, enlarged tonsils, hoarseness, mouth pain, oral sores, dry mouth, tinnitus, nasal congestion or post nasal drip Card: Denies: chest pain, palpitations, irregular heart rhythm, edema, swelling of feet/ankles, lightheadedness, syncope, pre-syncope, dyspnea on exertion, orthopnea, leg pain with exertion or acrocyanosis Resp: Denies: dyspnea, productive cough, non-productive cough, wheezing, stridor, pain on inspiration, change in phlegm color, hemoptysis or chest congestion GI: Denies: abdominal pain, nausea, vomiting, hematemesis, coffee ground emesis, dysphagia, heartburn, diarrhea, constipation, bloating, GI cramping, change in bowel habits, pain on defecation, hematochezia or melena : Denies: flank pain, dysuria, urinary frequency, urinary urgency, urinary hesitancy, nocturia or hematuria Musc: Denies: neck pain, back pain, extremity pain, joint pain, joint sw elling, joint redness, joint stiffness or limited range of motion Neuro: Denies: headache(s), numbness in extremities, weakness in extremities, sensory changes, lack of coordination, difficulty walking, frequent falls, dizziness, vertigo, confusion, Slurred speech present, difficulty communicating thoughts or seizure-like activity Psych: Denies: anxiety, depression, mood swings, panic attacks, hopelessness or irritability Endo: Denies: polyuria, polydipsia, tired all the time, cold intolerance, excessive sweating, flushing or heat intolerance Jl/Lymph: Denies: easy bruising or easy bleeding All/Imm: Denies: tongue swelling, facial swelling or acute wheezing Medications/Allergies Home Medications Medication Instructions Recorded Confirmed Last Taken Type ondansetron HCl 4 mg tablet 4 mg PO DAILY PRN Nausea And 04/13/22 06/17/22 Unknown History Vomiting potassium chloride 10 mEq 10 meq PO BID PRN unknown 04/13/22 06/17/22 Unknown History tablet,extended release aspirin 81 mg chewable tablet 162 mg PO DAILY 30 days #30 tabs 04/15/22 06/17/22 06/16/22 Rx dexlansoprazole 30 mg 30 mg PO DAILY #90 caps 04/22/22 06/17/22 06/16/22 Rx capsule,biphase delayed release (Dexilant) albuterol sulfate 90 mcg/actuation 1 inh inhalation Q6H PRN shortness 04/27/22 06/17/22 Unknown Rx aerosol inhaler (Proventil HFA) of breath or wheezing #6.7 grams gabapentin 300 mg capsule 300 mg PO TID chronic pain #90 caps 04/27/22 06/17/22 06/16/22 Rx levothyroxine 112 mcg tablet 112 mcg PO QAM low thyroid #90 tabs 04/27/22 06/17/22 06/16/22 Rx ropinirole 5 mg tablet 5 mg PO TID PRN Restless Leg(S) 04/27/22 06/17/22 Unknown Rx #90 tabs tizanidine 4 mg capsule 4 mg PO Q8H PRN muscle spasticity 04/27/22 06/17/22 Unknown Rx #90 caps clonazepam 1 mg tablet 1 mg PO DAILY PRN Anxiety/sleep 30 05/04/22 06/17/22 06/16/22 Rx days #30 tabs oxycodone 5 mg tablet 5 mg PO TID PRN pain 30 days #90 05/29/22 06/17/22 Unknown Rx tabs fluoxetine 40 mg capsule 40 mg PO DAILY PRN mood 06/17/22 06/17/22 Unknown History furosemide 40 mg tablet (Lasix) 80 mg PO DAILY PRN edema 06/17/22 06/17/22 Unknown History latanoprost 0.005 % eye drops 1 drp ophthalmic (eye) QPM 06/17/22 06/17/22 Unknown History Allergies Allergy/AdvReac Type Severity Reaction Status Date / Time amitriptyline Allergy ADR-Agitate Verified 06/17/22 13:35 d diphenhydramine Allergy ADR-Agitate Verified 06/17/22 13:35 [From Benadryl] d PFSH Acute PFSH: Medical History Acute renal failure Acute respiratory failure with hypoxemia Adjustment insomnia AMS (altered mental status) Anxiety about health Bilateral lower extremity edema Chronic back pain CKD (chronic kidney disease) stage 3, GFR 30-59 ml/min COVID-19 Depression determined by examination Hyperlipidemia Hypothyroidism Iron deficiency anemia Lung nodule, solitary Multifocal pneumonia Prediabetes Sepsis Social History Smoking and tobacco status: former smoker Alcohol intake: current Alcohol intake frequency: holidays/special occasions only Vitals/I&O/Wt Last Vital Signs Temp 100 F H 06/17/22 13:17 Pulse 66 06/17/22 15:00 Resp 16 06/17/22 15:00 BP 107/52 06/17/22 15:00 Pulse Ox 98 06/17/22 15:00 O2 Del Method 06/17/22 15:00 06/17/22 06/17/22 06/17/22 06:59 14:59 22:59 Intake Total 1050 / 1050 Balance 1050 / 1050 Weight last 48 hrs Weight 63.503 kg Physical Exam Narrative: EXAM NARRATIVE: General: No acute distress, AO x3, NC oxygen supplementation, sick appearing HEENT: PERRLA, pupils bilaterally equal and reactive Chest: Normal vesicular breath sounds bilaterally all over lung [place], coarse crackles and rhonchi present in right upper and lower zone, mild decreased air entry bilaterally lower zone CVS: S1-S2 regular, no murmurs, no tachycardia, no gallops, no rubs Abdomen: Soft, nontender, no organomegaly, bowel sounds present, morbidly obese Neuro: No focal deficits, no facial deformity, AO x3, power 5/5 in all limbs Sepsis: Date exam was performed: 06/17/22 Time exam was performed: 17:41 Data 06/17/22 13:45 06/17/22 13:45 Micro: Microbiology 06/17/22 13:45 Blood Culture - Preliminary Blood SPECIMEN COLLECTED 06/17/22 13:45 Blood Culture - Preliminary Blood SPECIMEN COLLECTED A&P Assessment and plan (1) Acute respiratory failure with hypoxemia: Most likely secondary to multifocal pneumonia in setting of recent COVID-19 along with mild COPD exacerbation. Given history of rheumatoid arthritis not on methotrexate anymore cannot rule out rheumatoid lung. Patient does have significant nodules. Oxygen supplementation keeping oxygen saturation over 88%. DuoNebs every 6 hour, budesonide twice daily. Solu-Medrol 40 mg every 8 hourly. Strict and proper charting, daily weights. (2) Sepsis: Check blood culture, urine culture, urinalysis, urine Legionella, bacterial antigen, sputum culture, MRSA swab. Start patient empirically on vancomycin and Zosyn. Will de-escalate antibiotics as per culture results. Keep mean artery pressure over 65. Normal saline with 20 meq of potassium at 75 cc/h for 1 bag. (3) Multifocal pneumonia: As seen on CT chest. High concerns for aspiration pneumonia. Treatment as above. Pulmonary toilet with incentive spirometry. (4) CKD (chronic kidney disease) stage 3, GFR 30-59 ml/min: Medical reconstruction done for nephrotoxic drugs. Creatinine baseline. (5) Hyperlipidemia: (6) Iron deficiency anemia: Check iron panel, vitamin B12, folate level. Monitor hemoglobin daily. (7) Hypothyroidism: Continue home dose of levothyroxine. (8) Prediabetes: (9) Rheumatoid arthritis: Does have history of rheumatoid arthritis in the past. Not on methotrexate anymore. Cannot rule out rheumatoid lung. Check ESR, CRP. Steroid should help with the same. We will continue to monitor. If patient has prolonged hospital course or slow recovery can get pulmonology involved for possible lung biopsy through bronchoscopy. Qualifiers: Rheumatoid arthritis location: multiple sites Rheumatoid factor presence: with rheumatoid factor Qualified Code(s): M05.79 - Rheumatoid arthritis with rheumatoid factor of multiple sites without organ or systems involvement Plan Analgesia: Tylenol as needed, oxycodone IR 5 mg 3 times daily as needed as home dose Glycemic control: Not needed. Nutrition: Cardiac diet CODE STATUS: Full code PUD prophylaxis: Protonix DVT prophylaxis: Heparin 5000 every 12 hourly Discharge planning: Home with caregiver once medically stable. Admit to [facility] with telemetry. This documentation was created by [employer] office equipment technician software. Every effort was made to ensure accuracy of office equipment technician. Any obvious errors or omissions should be clarified with the author of the document. Attestations Medical Necessity Statement*: Admission for more than 2 midnights for management of sepsis secondary to multifocal pneumonia in a patient with recent COVID-19 with a high risk of bacterial pneumonia Diagnoses Acute respiratory failure with hypoxemia J96.01 Sepsis A41.9 Multifocal pneumonia J18.9 CKD (chronic kidney disease) stage 3, GFR 30-59 ml/min N18.30 Hyperlipidemia E78.5 Iron deficiency anemia D50.9 Hypothyroidism E03.9 Prediabetes R73.03 Rheumatoid arthritis M05.79 Rheumatoid arthritis location: multiple sites Rheumatoid factor presence: with rheumatoid factor
[2022-06-17 17:28] LABS: Erythrocyte Sedimentation Rate 40 mm/hr (0-15)
[2022-06-17 18:03] LABS: Vitamin B12 544 pg/mL (232-1245)
[2022-06-17 18:04] LABS: Folate Level 14.3 ng/mL (4.8-37.3)
[2022-06-17 18:17] LABS: Lactic Acid level (Lactate) 1.8 mmol/L (0.5-2.2)
[2022-06-17] MEDS: sodium chlor 0.9% + KCl 20 mEq 20 MEQ/1,000 ML BAG 75 MEQ IV (18:21)
[2022-06-17] MEDS: ferrous gluconate 324 mg Tablet PO (18:22)
[2022-06-17] MEDS: docusate sodium 100 mg Capsule PO (18:22)
[2022-06-17] MEDS: oxyCODONE 5 mg IR Tab/Cap PO (18:23)
[2022-06-17] MEDS: heparin 5,000 unit/mL INJ 1 mL 5000 UNIT SUBCUT (18:23)
--- NOTE | 2022-06-17 18:24 | ECG_ITS ---
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 Measurements Intervals [place] Rate: 58 P: 61 [place]: 160 QRS: 39 QRSD: 93 T: 35 QT: 467 QTc: 463 Interpretive Statements SINUS BRADYCARDIA LOW QRS VOLTAGE IN PRECORDIAL LEADS [QRS DEFLECTION < 1.0 mV IN CHEST LEADS] Compared to ECG 06/17/2022 14:42:08 Low QRS voltage now present Sinus rhythm no longer present Electronically Signed On 06-18-2022 23:45:26 METAL BONDING ASSEMBLER by Sherine Greene M.D. [email or web address] Technologiesnov[facility].[employer]/store/[id number]
--- NOTE | 2022-06-17 19:41 | PC.PHAR ---
Pharmacy to dose vancomycin (PolicyStat ID [id number]) Standard dosing requested (target trough 10-15) but diagnosis of sepsis usually requires higher values (15-20) Calculated dose (rounded) 20 mg/kg = 1500 mg but eval pt age, ht, wt used lower dose of 1250mg (17 mg/kg) Estimated frequency: q 24 hours is conservatively dosed to expected values higher than >13. more frequent doses may yield >20 Pt received dose of 2,000mg in ER, delayed start time until 1800 06/18/22 Trough values drawn before 3-5: entered before 4th dose 06/20/22@1700
[2022-06-17] MEDS: benzonatate 100 mg Capsule PO (20:05)
[2022-06-17] MEDS: sennosides 8.6 mg Tablet 17.2 MG PO (20:05)
[2022-06-17] MEDS: gabapentin 300 mg Capsule PO (20:06)
[2022-06-17] MEDS: piperacillin-tazobactam 3.375 GM in sodium chloride 0.9% (plus) 50 ML IV (20:06)
[2022-06-17] MEDS: ropinirole 2 mg Tablet 5 MG PO (20:10)
[2022-06-17 21:50] LABS: Troponin 5 6HR 15.75 ng/L (0-10)
[2022-06-17 22:03] LABS: Troponin 5 6HR Delta -5.25 ng/L (0-12)
[2022-06-18] VITALS (16 sets, daily range): BP systolic 112–126; BP diastolic 55–63; PULSE 40–70; RESP 15–23; TEMP 36.4–36.8; O2SAT 63–97
[2022-06-18] MEDS: ondansetron 2 mg/ML SDV 2 mL 4 MG IVP
[2022-06-18] MEDS: ipratropium-albuterol 3 mL Neb INHALATION ×3 (01:17→20:55)
[2022-06-18] MEDS: heparin 5,000 unit/mL INJ 1 mL 5000 UNIT SUBCUT ×3 (02:57→17:20)
[2022-06-18] MEDS: morphine 4 mg/mL SDV 1 mL 2 MG IVP ×2 (05:34)
[2022-06-18] MEDS: levothyroxine 112 mcg Tablet PO (05:34)
[2022-06-18 05:35] LABS: Basophils % 0.2 %; Hematocrit 27.1 % (37.0-47.0); Hemoglobin 7.8 g/dL (11.5-15.3); Lymphocytes # 1.1 10^3/uL (0.8-4.8); Lymphocytes % 5.7 %; Mean Corpuscular HGB Conc 28.8 g/dL (30.0-36.0); Mean Corpuscular Volume 76.3 fl (81-99); Mean Platelet Volume 10.3 fL (7.4-10.4); Monocytes # 0.4 10^3/uL (0.2-0.9); Neutrophils # 17.63 10^3/uL (1.8-7.7); Neutrophils % 90.8 %; Nucleated Red Blood Cells % 0 %; Platelet Count 293 10^3/cmm (130-400); Red Blood Count 3.55 10^6/uL (4.1-5.3); Red Cell Distribution Width 17.1 % (12.1-15.1); White Blood Count 19.4 10^3/uL (4.0-10.0)
[2022-06-18] MEDS: piperacillin-tazobactam 3.375 GM in sodium chloride 0.9% (plus) 50 ML IV ×3 (05:35→20:55)
[2022-06-18 05:52] LABS: Alanine Aminotransferase 9 U/L (0-33); Albumin Level 3.2 g/dL (3.5-5.2); Alkaline Phosphatase 119 U/L (35-105); Anion Gap 16.7 (5-19); Aspartate Amino Transferase 18 U/L (0-32); Blood Urea Nitrogen 21 mg/dL (8-23); Calcium 8.8 mg/dL (8.5-10.5); Carbon Dioxide 22 mmol/L (22-29); Chloride 99 mmol/L (98-107); Chol HDL Ratio 2.81 mg/dL (0.0-4.40); Cholesterol 160 mg/dL (0-200); Globulin 3.6 g/dL (1.3-4.6); Glomerular Filtration Rate 55.1 mL/min (90-130); Glucose 206 mg/dL (65-115); HDL Cholesterol 57 mg/dL (60-100); LDL Cholesterol Calculated 93 mg/dL (50-129); Magnesium 1.9 mg/dL (1.7-2.3); Osmolality Calculated 287 mOsm/kg (285-295); Phosphorus 2.7 mg/dL (2.5-4.5); Potassium 3.7 mmol/L (3.5-5.1); Sodium 134 mmol/L (136-145); Total Bilirubin 0.3 mg/dL (0.15-1.2); Total Protein 6.8 g/dL (6.6-8.7); Triglycerides 49 mg/dL (0-150); VLDL Cholestrol Calculation 10 mg/dL (0-30)
[2022-06-18 05:55] LABS: Estmated Average Glucose 105; Hemoglobin A1C 5.3 % (4.0-6.0)
--- NOTE | 2022-06-18 08:01 | ECG_ITS ---
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 Measurements Intervals [place] Rate: 38 P: 58 [place]: 167 QRS: 21 QRSD: 89 T: 13 QT: 560 QTc: 450 Interpretive Statements SINUS BRADYCARDIA PROLONGED QT INTERVAL CRITICAL TEST RESULT INTERPRETATION BASED ON A DEFAULT AGE OF 40 YEARS Compared to ECG 06/17/2022 18:12:23 Prolonged QT interval now present Electronically Signed On 06-18-2022 23:37:15 HEARING CONSULTANT by Sherine Greene M.D. [email or web address] grenadaINTERNET BUSINESS TRADERtrinity health system west campus.[employer]/store/NU/[id number] f
--- NOTE | 2022-06-18 08:24 | PC.RESP ---
Pt in consult with , having apparent cardiac issues,treatment requested to be held.
[2022-06-18] MEDS: promethazine 25 mg/mL SDV 1 mL 12.5 MG IM (08:29)
[2022-06-18] MEDS: magnesium sulfate premix 2 GM/50 ML PIGGYBACK IV (08:45)
[2022-06-18 08:54] LABS: Hemoglobin 7.7 g/dL (11.5-15.3)
[2022-06-18 09:13] LABS: Lactate (Lactic Acid level) 2.6 mmol/L (0.5-2.2); Troponin T (5th) Once 11 ng/L (0-10)
[2022-06-18] MEDS: pantoprazole DR 40 mg Tablet PO (09:14)
[2022-06-18] MEDS: gabapentin 300 mg Capsule PO (09:14)
[2022-06-18] MEDS: ferrous gluconate 324 mg Tablet PO ×2 (09:15→17:19)
[2022-06-18 09:22] LABS: Phosphorus 2.6 mg/dL (2.5-4.5); Thyroid Stimulating Hormone 0.55 uIU/mL (0.27-4.20)
--- NOTE | 2022-06-18 10:31 | PC.CHAP ---
Pastoral Care Encounter/Spiritual Assessment Type of Contact [] Declined tunnel elastic operator chainstitch visit [] Patient/Family/Request visit [] Outpatient visit [] Follow-up visit [] Physician referral [] Code/Alert [x] Routine visit [] Staff referral [] Actively dying [] Patient sleeping [] Family support [] [] Out of room [] Palliative care [] [x] Receiving care in room [] Pre-surgical visit [] Trauma [] Long length of stay [] ICU visit [] Other: Relational/Emotional Strength [x] Patient feels connected with others/family/visitors/staff [] Distress [] Loneliness/isolation [] Abandonment Spirituality of Patient [x] Person of Shaina [] Attends Adventist of their Shaina [x] Believes in Prayer [] Reads Bible or Amish materials [] There are Spiritual issues to be addressed Deboning Team Leader Interventions [x] Prayer [x] Active listening [x] Non-anxious presence [x] Spiritual/emotional support [] Crisis/trauma care [x] Spiritual counseling [] Bereavement support [] Provided bereavement packet [] Provided Bible/devotional materials [] Provided toy/stuffed animal, coloring book to patient or family member [] Provided Communion [] Anointing/Russian Mission [] Salvation [x] Completed spiritual assessment [] Other: Impact on Illness or Injury [] Angry [] Fearful [] Anxious [] Often cries [] Exhaustion [] Unable to work [] Unable to attend yazidi [] Unable to walk/stand [] Unable to read [] Unable to drive [] Unable to eat/drink [] Unable to sleep [] Unable to be with family [] Patient intubated [] Other: Summary senior heart had tests waiting results has a good attitude well go home Time spent with patient 10 mins
[2022-06-18] MEDS: oxyCODONE 5 mg IR Tab/Cap PO ×2 (13:09→20:50)
--- NOTE | 2022-06-18 13:36 | PC.NURSE ---
received from 2nd floor into room 108 at 1330.report recieved.pr is alert and oriented x 4.sinus paige on monitor.bp stable.denies pain at present.oriented to room environment.instructed to please ask for assistance when needs to get out of bed..and instructed to notify staff for any sob,cp,pain or for any concerns at all.pt verb understanding of instructions
[2022-06-18] MEDS: gabapentin 100 mg Capsule 200 MG PO ×2 (14:27→20:50)
[2022-06-18] MEDS: pantoprazole 40 mg SDV IVP (15:09)
--- NOTE | 2022-06-18 15:45 | P.PN_ITS ---
Subjective Subjective: Seen multiple times during the day. No acute events overnight. Earlier today morning got a call from nurse because of bradycardia. As per review it seems patient has been bradycardic with heart rate running in low 40s since last night. Patient denies any nausea, vomiting. States she is slightly sleepy more than usual. Complaining of dizziness but states dizziness has been ongoing since recent COVID. Complaining of mild fullness in the chest radiating to neck which she states is new today morning. Patient is awake and alert with family at bedside and able to have complete conversation. Complaining of headache. EKG was done which showed sinus bradycardia with prolonged QTc. Patient received 1 mg of IV magnesium after which heart rate improved to 50s. Troponin was checked which was reported to be 11. Patient has remained on 3 L and has remained afebrile. Vitals/I&O/Wt Last Vital Signs Temp 98.0 F 06/18/22 12:00 Pulse 50 L 06/18/22 13:56 Resp 16 06/18/22 13:56 BP 116/56 06/18/22 12:00 Pulse Ox 94 06/18/22 13:56 O2 Del Method 06/18/22 13:56 O2 Flow Rate 3 06/18/22 13:56 06/18/22 06/18/22 06/18/22 06:59 14:59 22:59 Intake Total 1368.75 / 4158.75 170 / 170 Balance 1368.75 / 4158.75 170 / 170 Weight last 48 hrs Weight 67.217 kg Weight 71.078 kg Weight 63.503 kg Physical Exam Narrative: EXAM NARRATIVE: General: No acute distress, AO x3, NC oxygen supplementation, sick appearing HEENT: PERRLA, pupils bilaterally equal and reactive Chest: Normal vesicular breath sounds bilaterally all over lung [place], coarse crackles and rhonchi present in right upper and lower zone, mild decreased air entry bilaterally lower zone CVS: S1-S2 regular, no murmurs, no tachycardia, no gallops, no rubs Abdomen: Soft, nontender, no organomegaly, bowel sounds present, morbidly obese Neuro: No focal deficits, no facial deformity, AO x3, power 5/5 in all limbs Data 06/18/22 08:39 06/18/22 05:22 Micro: Microbiology 06/17/22 16:53 Bacterial Antigens - Final Urine Kidney 06/17/22 13:45 Blood Culture - Preliminary Blood NEGATIVE TO DATE 06/17/22 13:45 Blood Culture - Preliminary Blood NEGATIVE TO DATE 06/18/22 06:40 Legionella Urinary Antigen - Final Unknown Source A&P Assessment and plan (1) Acute respiratory failure with hypoxemia: Most likely secondary to multifocal pneumonia in setting of recent COVID-19 along with mild COPD exacerbation. Given history of rheumatoid arthritis not on methotrexate anymore cannot rule out rheumatoid lung versus atypical infections like Aspergillus, histoplasma or coccidiomycosis especially given the significant lung nodules and hilar lymphadenopathy. Oxygen supplementation keeping oxygen saturation over 88%. DuoNebs every 6 hour, budesonide twice daily. Solu-Medrol 40 mg every 8 hourly. Strict intake and output charting, daily weights. (2) Sepsis: Check blood culture, urine culture, urinalysis, urine Legionella, bacterial antigen, sputum culture, MRSA swab. Check histoplasma urine antigen, Aspergillus serum antigen, histoplasma serum antibody, coccidio serum antibodies Start patient empirically on vancomycin and Zosyn. Will de-escalate antibiotics as per culture results. Keep mean artery pressure over 65. (3) Multifocal pneumonia: As seen on CT chest. High concerns for aspiration pneumonia. Treatment as above. Pulmonary toilet with incentive spirometry and flutter valve. Out of bed to chair. (4) Bradycardia: New. Significant. Possibly symptomatic though difficult to state as she is complaining of dizziness weakness since COVID earlier in the year. Does complain of sleepiness but patient did get morphine early in the morning. Continue to monitor. Telemetry. Repeat troponin in afternoon. Repeat EKG in AM. Medical reconciliation done for culprit medications. Keep magnesium around 2, potassium over 4. (5) Prolonged QT interval: (6) CKD (chronic kidney disease) stage 3, GFR 30-59 ml/min: Medical reconstruction done for nephrotoxic drugs. Creatinine baseline. (7) Hyperlipidemia: (8) Iron deficiency anemia: Check iron panel, vitamin B12, folate level. Monitor hemoglobin daily. (9) Hypothyroidism: Continue home dose of levothyroxine. (10) Prediabetes: (11) Rheumatoid arthritis: Does have history of rheumatoid arthritis in the past. Not on methotrexate anymore. Cannot rule out rheumatoid lung. Check ESR, CRP. Steroid should help with the same. We will continue to monitor. If patient has prolonged hospital course or slow recovery can get pulmonology involved for possible lung biopsy through bronchoscopy. Qualifiers: Rheumatoid arthritis location: multiple sites Rheumatoid factor presence: with rheumatoid factor Qualified Code(s): M05.79 - Rheumatoid arthritis with rheumatoid factor of multiple sites without organ or systems involvement (12) Head ache: Tramadol 50 as needed, Tylenol as needed. Hold off on morphine for now (13) Dizziness: Chronic. States has been going on since COVID-19. CT head negative for any stroke. ED evaluation. Out of bed to chair. Plan Analgesia: Tylenol as needed, oxycodone IR 5 mg 3 times daily as needed as home dose Glycemic control: Not needed. Nutrition: Cardiac diet CODE STATUS: Full code PUD prophylaxis: Protonix DVT prophylaxis: Heparin 5000 every 12 hourly Discharge planning: Home with caregiver once medically stable. Transfer to [facility]. Patient's care discussed in detail with patient and patient's family at bedside. Medical reconciliation done with the patient. She takes gabapentin 200 mg 3 times a day, Requip twice daily and tizanidine as needed. Medication changed in the system. States she does not take fluoxetine. Takes clonazepam once every 2 to 3 days as needed. This documentation was created by [employer] immigration investigator software. Every effort was made to ensure accuracy of immigration investigator. Any obvious errors or omissions should be clarified with the author of the document. Attestations Medical Necessity Statement*: Patient requires further hospitalization for management of hypoxic respiratory failure in setting of pneumonia with recent history of COVID-19, significant bradycardia with prolonged QT Coding Level of Care Code Critical Care >/= 30 minutes Critical care time (in minutes): 70 The high probability of a clinically significant, sudden or life threatening deterioration, as referenced in this documentation, required my full and direct attention, intervention and personal management. The critical care time shown is in addition to time spent performing any reported separately billable procedures and includes the following: [x] Data and vital sign review and interpretation [x ] Patient assessment, examination and intervention [x] Medication orders and management [x] Patient/Family updates as able [x] Care Coordination and Documentation. Diagnoses Acute respiratory failure with hypoxemia J96.01 Sepsis A41.9 Multifocal pneumonia J18.9 Bradycardia R00.1 Prolonged QT interval R94.31 CKD (chronic kidney disease) stage 3, GFR 30-59 ml/min N18.30 Hyperlipidemia E78.5 Iron deficiency anemia D50.9 Hypothyroidism E03.9 Prediabetes R73.03 Rheumatoid arthritis M05.79 Rheumatoid arthritis location: multiple sites Rheumatoid factor presence: with rheumatoid factor Head ache R51.9 Dizziness R42
--- NOTE | 2022-06-18 15:55 | ECG_ITS ---
[facility] Test Date: 2022-06-18 Pat Name: Tosha Perry Department: Room: 108 Gender: Female Administrator Health Care Facility: : 1955 Requested By: Claudy Castañeda Order Number: [id number] Mirela MD: Sherine Greene M.D. Measurements Intervals [place] Rate: 64 P: 72 [place]: 166 QRS: 39 QRSD: 92 T: 15 QT: 422 QTc: 437 Interpretive Statements SINUS RHYTHM WITH SINUS ARRHYTHMIA Compared to ECG 06/18/2022 07:58:49 Sinus bradycardia no longer present Prolonged QT interval no longer present Electronically Signed On 06-18-2022 23:55:23 ASSISTANT PROFESSOR OF BIOCHEMISTRY by Sherine Greene M.D. [email or web address].[employer]/store/[id number]
[2022-06-18] MEDS: TRAMadol 50 mg Tablet PO (16:10)
[2022-06-18 16:18] LABS: Troponin T (5th) Once 9 ng/L (0-10)
[2022-06-18 16:28] LABS: Add Urine Microscopic? YES; Bilirubin Urine Neg (Negative); Blood Urine Neg (Negative); Glucose Urine UA Norm (Normal); Ketones Urine Negative (Negative); Leukocyte Esterase Urine Negative (Negative); Nitrate Urine Negative (Negative); Protein Urine Neg (Negative); Specific Gravity, Urine 1.005 (1.005-1.030); Urine Appearance Hazy (CLEAR); Urine Color Yellow (Yellow); Urobilinogen Urine Neg (Negative); pH Urine 6.5 (5-7)
[2022-06-18 16:29] LABS: Add Urine Culture? No; Amorphous Sediment Urine 1+ /hpf; Bacteria Urine TRACE /hpf; Squamous Epithelial Cell Urine 0-4 /hpf (0-5); WBC Urine 0-4 /hpf (0-5)
[2022-06-18] MEDS: calcium carbonate 500 mg Chew Tablet 1000 MG PO (17:19)
[2022-06-18] MEDS: ropinirole 2 mg Tablet 5 MG PO (17:20)
[2022-06-18] MEDS: vancomycin 1,250 MG/250 ML PIGGYBACK 250 MG IV (17:20)
[2022-06-18] MEDS: docusate sodium 100 mg Capsule PO (17:21)
[2022-06-18] MEDS: sennosides 8.6 mg Tablet 17.2 MG PO (20:49)
[2022-06-18] MEDS: budesonide 0.5 mg/2 mL Neb INHALATION (20:55)
[2022-06-19] VITALS (116 sets, daily range): BP systolic 116–182; BP diastolic 60–89; PULSE 34–64; RESP 12–25; TEMP 36.1–37.2; O2SAT 89–98
[2022-06-19] MEDS: heparin 5,000 unit/mL INJ 1 mL 5000 UNIT SUBCUT ×3 (01:23→19:12)
[2022-06-19] MEDS: oxyCODONE 5 mg IR Tab/Cap PO ×3 (03:07→20:29)
[2022-06-19 05:16] LABS: Basophils % 0.1 %; Hematocrit 25.2 % (37.0-47.0); Hemoglobin 7.3 g/dL (11.5-15.3); Lymphocytes # 0.9 10^3/uL (0.8-4.8); Lymphocytes % 5.5 %; Mean Corpuscular Volume 75.9 fl (81-99); Mean Platelet Volume 10.6 fL (7.4-10.4); Monocytes # 0.7 10^3/uL (0.2-0.9); Monocytes % 4.1 %; Neutrophils # 14.93 10^3/uL (1.8-7.7); Nucleated Red Blood Cells % 0 %; Platelet Count 327 10^3/cmm (130-400); Red Blood Count 3.32 10^6/uL (4.1-5.3); Red Cell Distribution Width 17.3 % (12.1-15.1); White Blood Count 16.8 10^3/uL (4.0-10.0)
[2022-06-19] MEDS: levothyroxine 112 mcg Tablet PO (05:35)
[2022-06-19] MEDS: piperacillin-tazobactam 3.375 GM in sodium chloride 0.9% (plus) 50 ML IV ×3 (05:36→20:41)
[2022-06-19 05:41] LABS: Procalcitonin 17.88 ng/mL (0-0.5)
[2022-06-19 05:46] LABS: Alanine Aminotransferase 29 U/L (0-33); Albumin Level 3.3 g/dL (3.5-5.2); Alkaline Phosphatase 128 U/L (35-105); Anion Gap 17.9 (5-19); Aspartate Amino Transferase 54 U/L (0-32); Blood Urea Nitrogen 20 mg/dL (8-23); Calcium 9.2 mg/dL (8.5-10.5); Carbon Dioxide 21 mmol/L (22-29); Chloride 101 mmol/L (98-107); Globulin 3.4 g/dL (1.3-4.6); Glomerular Filtration Rate 55.1 mL/min (90-130); Glucose 179 mg/dL (65-115); Osmolality Calculated 289 mOsm/kg (285-295); Potassium 3.9 mmol/L (3.5-5.1); Sodium 136 mmol/L (136-145); Total Bilirubin 0.2 mg/dL (0.15-1.2); Total Protein 6.7 g/dL (6.6-8.7)
[2022-06-19 05:55] LABS: Magnesium 2.3 mg/dL (1.7-2.3)
[2022-06-19] MEDS: ferrous gluconate 324 mg Tablet PO ×2 (07:38→19:12)
[2022-06-19] MEDS: TRAMadol 50 mg Tablet PO (07:38)
[2022-06-19] MEDS: ondansetron 2 mg/ML SDV 2 mL 4 MG IVP ×2 (07:41→21:02)
--- NOTE | 2022-06-19 08:55 | ECG_ITS ---
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 Measurements Intervals [place] Rate: 34 P: 0 [place]: 0 QRS: 40 QRSD: 98 T: 25 QT: 541 QTc: 410 Interpretive Statements SUPRAVENTRICULAR BRADYCARDIA LOW QRS VOLTAGE IN PRECORDIAL LEADS [QRS DEFLECTION < 1.0 mV IN CHEST LEADS] CRITICAL TEST RESULT Compared to ECG 06/18/2022 16:49:14 Low QRS voltage now present Sinus rhythm no longer present Sinus arrhythmia no longer present Electronically Signed On 06-19-2022 15:13:04 QUALITY CONTROL INSPECTOR HEADING by Feliciano Fields M.D. [email or web address].[address]/store/[id number]
[2022-06-19] MEDS: docusate sodium 100 mg Capsule PO ×2 (09:34→19:12)
[2022-06-19] MEDS: pantoprazole DR 40 mg Tablet PO (09:34)
[2022-06-19] MEDS: aspirin 81 mg Chew Tablet PO (09:34)
[2022-06-19] MEDS: ropinirole 2 mg Tablet 5 MG PO ×2 (09:34→19:12)
[2022-06-19] MEDS: gabapentin 100 mg Capsule 200 MG PO ×3 (09:34→20:29)
--- NOTE | 2022-06-19 12:46 | PC.PT ---
Nursing requestes hold. HGB is below therapy cut off values. I followed up to see if this was chronic in nature and it was a new development. Nursing requests to hold on behalf of physician due to needing blood transfusions and having not recieved them yet.
[2022-06-19] MEDS: ipratropium-albuterol 3 mL Neb INHALATION (14:01)
--- NOTE | 2022-06-19 15:28 | XR_ITS ---
WS: [id number] Portable AP upright chest, 06/19/2022 Clinical Data: sob Comparison: Portable chest, 06/17/2022 Findings: No nodules, masses or effusions are seen. The heart is normal. The pulmonary vascularity is not increased. No pneumonia or pneumothorax is seen. The aortic arch and descending thoracic aorta s how minimal calcification and tortuosity. There are monitor leads on the chest wall. XR/XR chest 1V portable [id number] Impression: Atherosclerosis.
--- NOTE | 2022-06-19 15:29 | PM.PN ---
Subjective Subjective: Today morning seen in [facility]. Patient states she is feeling a lot better. Patient is off oxygen. Saturating well over 90%. She looks more active and alert. Denies any nausea, vomiting, headache. Overnight patient's heart rate has dipped down to mid 30s. Today morning on examination also patient's heart rate ranging from 38-42. During examination patient is having IV line placed and even with pain her heart rate is going up only to 45. Documented urine output of around 98 cc in last 24 hours. Patient states she is concerned that she is gaining weight and she is not getting her home dose of Lasix. Vitals/I&O/Wt Last Vital Signs Temp 97.1 F L 06/19/22 14:34 Pulse 54 L 06/19/22 14:34 Resp 19 H 06/19/22 14:34 BP 135/63 06/19/22 14:19 Pulse Ox 92 06/19/22 14:34 O2 Del Method 06/19/22 14:00 O2 Flow Rate 2 06/19/22 02:38 06/19/22 06/19/22 06/19/22 06:59 14:59 22:59 Intake Total 1010 / 2070 530 / 530 620 / 1150 Output Total 600 / 600 240 / 240 Balance 410 / 1470 530 / 530 380 / 910 Weight last 48 hrs Weight 70.505 kg Weight 70.171 kg Weight 67.217 kg Weight 71.078 kg Physical Exam Narrative: EXAM NARRATIVE: General: No acute distress, AO x3, NC oxygen supplementation, sick appearing HEENT: PERRLA, pupils bilaterally equal and reactive Chest: Normal vesicular breath sounds bilaterally all over lung [place], coarse crackles and rhonchi present in right upper and lower zone, mild decreased air entry bilaterally lower zone CVS: S1-S2 regular, no murmurs, no tachycardia, no gallops, no rubs Abdomen: Soft, nontender, no organomegaly, bowel sounds present, morbidly obese Neuro: No focal deficits, no facial deformity, AO x3, power 5/5 in all limbs Data 06/19/22 04:32 06/19/22 04:32 Micro: Microbiology 06/17/22 16:53 Bacterial Antigens - Final Urine Kidney 06/17/22 13:45 Blood Culture - Preliminary Blood NEGATIVE TO DATE 06/17/22 13:45 Blood Culture - Preliminary Blood NEGATIVE TO DATE A&P Assessment and plan (1) Acute respiratory failure with hypoxemia: Most likely secondary to multifocal pneumonia in setting of recent COVID-19 along with mild COPD exacerbation. Given history of rheumatoid arthritis not on methotrexate anymore cannot rule out rheumatoid lung versus atypical infections like Aspergillus, histoplasma or coccidiomycosis especially given the significant lung nodules and hilar lymphadenopathy. Oxygen supplementation keeping oxygen saturation over 88%. DuoNebs every 6 hour, budesonide twice daily. Wean down Solu-Medrol 40 mg daily. IV Lasix 40 mg 1 time per day. Strict intake and output charting, daily weights. (2) Sepsis: Present on admission. Source likely pneumonia with endorgan dysfunction of cardiac and pulmonary leading to bradycardia and hypoxia. Ruled in with leukocytosis, tachycardia, fever of 100 Fahrenheit. Blood cultures so far negative, urine Legionella, bacterial antigen negative. Sputum culture awaited. MRSA swab pending. Check histoplasma urine antigen, Aspergillus serum antigen, histoplasma serum antibody, coccidio serum antibodies Start patient empirically on vancomycin and Zosyn. Will de-escalate antibiotics as per culture results. If MRSA is negative can discontinue vancomycin. Keep mean artery pressure over 65. (3) Multifocal pneumonia: As seen on CT chest. High concerns for aspiration pneumonia. Treatment as above. Pulmonary toilet with incentive spirometry and flutter valve. Out of bed to chair. (4) Bradycardia: New. Significant. Possibly symptomatic though difficult to state as she is complaining of dizziness weakness since COVID earlier in the year. Does complain of sleepiness but patient did get morphine early in the morning. Continue to monitor. Telemetry. Patient continues to have bradycardia on telemetry. Still complaining of occasional episodes of dizziness and woozy. Keep magnesium around 2, potassium around 4. Will consult cardiology for further recommendations. Repeat EKG on 06/19 shows rate of 34 with QTc of 410. (5) Prolonged QT interval: Improving. Patient getting Lasix today we will monitor potassium. (6) CKD (chronic kidney disease) stage 3, GFR 30-59 ml/min: Medical reconstruction done for nephrotoxic drugs. Creatinine at baseline. (7) Hyperlipidemia: (8) Iron deficiency anemia: Iron panel appreciated. Started on oral iron supplementation. Vitamin B12 and folate levels within normal limits. Target hemoglobin around 8. Will transfuse 1 unit of PRBC today. Monitor hemoglobin daily for now. (9) Hypothyroidism: Continue home dose of levothyroxine. (10) Prediabetes: A1c checked at 5.3. Prediabetes rule out. (11) Rheumatoid arthritis: Does have history of rheumatoid arthritis in the past. Not on methotrexate anymore. Cannot rule out rheumatoid lung. Appreciate ESR to be slightly elevated. Steroid should help with the same. We will continue to monitor. If patient has prolonged hospital course or slow recovery can get pulmonology involved for possible lung biopsy through bronchoscopy. Qualifiers: Rheumatoid arthritis location: multiple sites Rheumatoid factor presence: with rheumatoid factor Qualified Code(s): M05.79 - Rheumatoid arthritis with rheumatoid factor of multiple sites without organ or systems involvement (12) Head ache: Tramadol 50 as needed, Tylenol as needed. Hold off on morphine for now (13) Dizziness: Chronic. States has been going on since COVID-19. Cannot rule out secondary to bradycardia. CT head negative for any stroke. PT evaluation. Out of bed to chair. Plan Analgesia: Tylenol as needed, oxycodone IR 5 mg 3 times daily as needed as home dose Glycemic control: Not needed. Nutrition: Cardiac diet CODE STATUS: Full code PUD prophylaxis: Protonix DVT prophylaxis: Heparin 5000 every 12 hourly Discharge planning: Home with caregiver once medically stable. Transfer to [facility]. Patient's care discussed in detail with patient and patient's family at bedside. Medical reconciliation done with the patient. She takes gabapentin 200 mg 3 times a day, Requip twice daily and tizanidine as needed. Medication changed in the system. States she does not take fluoxetine. Takes clonazepam once every 2 to 3 days as needed. This documentation was created by [employer] store clerk cashier software. Every effort was made to ensure accuracy of store clerk cashier. Any obvious errors or omissions should be clarified with the author of the document. Attestations Medical Necessity Statement*: Requires further hospitalization for management of sepsis in setting of multifocal pneumonia, symptomatic bradycardia while safe discharge planning is sought Diagnoses Acute respiratory failure with hypoxemia J96.01 Sepsis A41.9 Multifocal pneumonia J18.9 Bradycardia R00.1 Prolonged QT interval R94.31 CKD (chronic kidney disease) stage 3, GFR 30-59 ml/min N18.30 Hyperlipidemia E78.5 Iron deficiency anemia D50.9 Hypothyroidism E03.9 Prediabetes R73.03 Rheumatoid arthritis M05.79 Rheumatoid arthritis location: multiple sites Rheumatoid factor presence: with rheumatoid factor Head ache R51.9 Dizziness R42
[2022-06-19] MEDS: FUROsemide 10 mg/mL SDV 4mL 40 MG IVP (15:43)
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
[2022-06-19] MEDS: vancomycin 1,250 MG/250 ML PIGGYBACK 250 MG IV (19:13)
--- NOTE | 2022-06-19 20:02 | PC.NURSE ---
Bedside report given to Emilee Elise RN in room with patient alert and oriented.
[2022-06-19] MEDS: sennosides 8.6 mg Tablet 17.2 MG PO (20:29)
[2022-06-19] MEDS: CLONazepam 1 mg Tablet PO (20:34)
--- NOTE | 2022-06-19 23:10 | PC.NURSE ---
Patient reports continuing nausea and headache. Zofran given at 2100. Message sent to Dr. Octaviano chawla.
[2022-06-20] VITALS (13 sets, daily range): BP systolic 127–196; BP diastolic 63–89; PULSE 36–61; RESP 14–22; TEMP 36.5–37.3; O2SAT 91–100
[2022-06-20] MEDS: tizanidine 4 mg Tablet PO (01:39)
[2022-06-20] MEDS: heparin 5,000 unit/mL INJ 1 mL 5000 UNIT SUBCUT ×3 (01:39→17:29)
--- NOTE | 2022-06-20 02:47 | PC.NURSE ---
senior coldfusion developer called to report that protocol for CT chest with contrast dye is prohibited in patients with a history of nephrectomy. Msg sent to Dr. Brumfield.
[2022-06-20] MEDS: ondansetron 2 mg/ML SDV 2 mL 4 MG IVP ×3 (05:04→20:28)
[2022-06-20] MEDS: piperacillin-tazobactam 3.375 GM in sodium chloride 0.9% (plus) 50 ML IV ×3 (05:06→20:23)
[2022-06-20] MEDS: levothyroxine 112 mcg Tablet PO (06:05)
[2022-06-20 06:35] LABS: Basophils % 0.2 %; Hematocrit 38.6 % (37.0-47.0); Lymphocytes # 2.3 10^3/uL (0.8-4.8); Lymphocytes % 14.2 %; Mean Corpuscular HGB Conc 28.8 g/dL (30.0-36.0); Mean Corpuscular Volume 79.9 fl (81-99); Mean Platelet Volume 10.8 fL (7.4-10.4); Monocytes # 1.2 10^3/uL (0.2-0.9); Monocytes % 7.8 %; Neutrophils # 12.17 10^3/uL (1.8-7.7); Neutrophils % 76.9 %; Nucleated Red Blood Cells % 0 %; Platelet Count 333 10^3/cmm (130-400); Red Blood Count 4.83 10^6/uL (4.1-5.3); Red Cell Distribution Width 17.7 % (12.1-15.1); White Blood Count 15.8 10^3/uL (4.0-10.0)
[2022-06-20 06:40] LABS: Hemoglobin 11.1 g/dL (11.5-15.3)
[2022-06-20 07:06] LABS: Alanine Aminotransferase 38 U/L (0-33); Albumin Level 3.9 g/dL (3.5-5.2); Alkaline Phosphatase 156 U/L (35-105); Blood Urea Nitrogen 25 mg/dL (8-23); Calcium 9.7 mg/dL (8.5-10.5); Carbon Dioxide 20 mmol/L (22-29); Chloride 98 mmol/L (98-107); Creatinine Clr Calc Pharmacy 53.4534; Globulin 3.5 g/dL (1.3-4.6); Glomerular Filtration Rate 55.1 mL/min (90-130); Glucose 193 mg/dL (65-115); Magnesium 1.9 mg/dL (1.7-2.3); Osmolality Calculated 294 mOsm/kg (285-295); Sodium 137 mmol/L (136-145); Total Bilirubin 0.2 mg/dL (0.15-1.2); Total Protein 7.4 g/dL (6.6-8.7)
[2022-06-20 07:13] LABS: Anion Gap 22.7 (5-19); Aspartate Amino Transferase 51 U/L (0-32); Potassium 3.7 mmol/L (3.5-5.1)
[2022-06-20] MEDS: docusate sodium 100 mg Capsule PO ×2 (09:15→17:30)
[2022-06-20] MEDS: ropinirole 2 mg Tablet 5 MG PO ×2 (09:15→17:29)
[2022-06-20] MEDS: ferrous gluconate 324 mg Tablet PO ×2 (09:15→17:30)
[2022-06-20] MEDS: aspirin 81 mg Chew Tablet PO (09:16)
[2022-06-20] MEDS: pantoprazole DR 40 mg Tablet PO (09:16)
[2022-06-20] MEDS: gabapentin 100 mg Capsule 200 MG PO ×3 (09:16→20:23)
--- NOTE | 2022-06-20 09:24 | PC.SOCIAL ---
IMM update IMM updated with patient and . Verbalized an understanding. Copy PG 2 provided. Initialled, dated, timed, and placed in chart.
[2022-06-20] MEDS: atropine 1 mg/mL SDV 1 mL IVP (09:41)
--- NOTE | 2022-06-20 09:58 | PC.NURSE ---
1mg of atropine ordered per Dr. Greene, patient tolerated well. Patient went from mid 30s to mid 60s.
[2022-06-20] MEDS: amlodipine 5 mg Tablet PO (10:42)
--- NOTE | 2022-06-20 10:56 | PC.NURSE ---
Patient reporting severe nausea. Zofran given. She states this morning she felt like she was having a stroke because she was slurring her words. No sign of stroke present. She was given Zanaflex which made her very disoriented.
--- NOTE | 2022-06-20 11:46 | PM.PN ---
Subjective Subjective: Patient was found to be bradycardic with a heart rate in the upper 30s on the monitor. The patient was sleeping at that time. She responded appropriate to IV atropine. The rhythm was found to be sinus bradycardia with sinus arrhythmia and junctional escape. Medications: Medication Review Details: Current Medications Acetaminophen (Acetaminophen 325 Mg Tablet) 650 mg PO Q6H PRN PRN Reason: Mild/Mod Pain Or Temp >/= 101 Albuterol/Ipratropium (Ipratropium-Albuterol 3 Ml Neb) 3 ml INHALATION Q6H.RESP [facility] Last Admin: 06/20/22 08:27 Dose: Not Given Aspirin (Aspirin 81 Mg Chew Tablet) 81 mg PO DAILY [facility] Last Admin: 06/20/22 09:16 Dose: 81 mg Benzonatate (Benzonatate 100 Mg Capsule) 100 mg PO TID [facility] Last Admin: 06/20/22 09:16 Dose: Not Given Budesonide (Budesonide 0.5 Mg/2 Ml Neb) 0.5 mg INHALATION BID.RESPIRATORY [facility] Last Admin: 06/20/22 08:27 Dose: Not Given Calcium Carbonate (Calcium Carbonate 500 Mg Chew Tablet) 1,000 mg PO Q4H PRN PRN Reason: DYSPEPSI Last Admin: 06/18/22 17:19 Dose: 1,000 mg Clonazepam (Clonazepam 1 Mg Tablet) 1 mg PO DAILY PRN PRN Reason: Anxiety/sleep Last Admin: 06/19/22 20:34 Dose: 1 mg Docusate Sodium (Docusate Sodium 100 Mg Capsule) 100 mg PO BID [facility] Last Admin: 06/20/22 09:15 Dose: 100 mg Ferrous Gluconate (Ferrous Gluconate 324 Mg Tablet) 324 mg PO BIDWM [facility] Last Admin: 06/20/22 09:15 Dose: 324 mg Gabapentin (Gabapentin 100 Mg Capsule) 200 mg PO TID [facility] Last Admin: 06/20/22 09:16 Dose: 200 mg Heparin Sodium (Porcine) (Heparin 5,000 Unit/Ml Inj 1 Ml) 5,000 unit SUBCUT Q8H [facility] Last Admin: 06/20/22 10:42 Dose: 5,000 unit Piperacillin Sod/Tazobactam (Sod 3.375 gm/ Sodium Chloride) 50 mls @ 12.5 mls/hr IV Q8H [facility] Last Infusion: 06/20/22 10:57 Dose: Infused Vancomycin/PEG/NADA/Lysine/Water (Vancocin) 1,250 mg in 250 mls @ 250 mls/hr IV Q24H [facility] Last Infusion: 06/20/22 10:57 Dose: Infused Levothyroxine Sodium (Levothyroxine 112 Mcg Tablet) 112 mcg PO QAM [facility] Last Admin: 06/20/22 06:05 Dose: 112 mcg Methylprednisolone Sodium Succinate (Methylprednisolone Sod Succ 40 Mg/Ml Inj) 40 mg IVP DAILY [facility] Last Admin: 06/20/22 09:16 Dose: 40 mg Metoclopramide HCl (Metoclopramide 5 Mg/Ml Sdv 2 Ml) 5 mg IVP Q8H PRN PRN Reason: NAUSEA AND VOMITING Naloxone HCl (Naloxone 0.4 Mg/Ml Sdv) 0.1 mg IVP Q2M PRN PRN Reason: OPIATERV Ondansetron HCl (Ondansetron 2 Mg/Ml Sdv 2 Ml) 4 mg IVP Q8H PRN PRN Reason: vomiting, or N/V if npo Last Admin: 06/20/22 10:43 Dose: 4 mg Oxycodone HCl (Oxycodone 5 Mg Ir Tab/Cap) 5 mg PO TID PRN PRN Reason: SEVERE pain Last Admin: 06/19/22 20:29 Dose: 5 mg Pantoprazole Sodium (Pantoprazole Dr 40 Mg Tablet) 40 mg PO DAILY [facility] Last Admin: 06/20/22 09:16 Dose: 40 mg Ropinirole HCl (Ropinirole 2 Mg Tablet) 5 mg PO BID [facility] Last Admin: 06/20/22 09:15 Dose: 5 mg Senna (Sennosides 8.6 Mg Tablet) 17.2 mg PO BEDTIME [facility] Last Admin: 06/19/22 20:29 Dose: 17.2 mg Tizanidine HCl (Tizanidine 4 Mg Tablet) 4 mg PO QPM PRN PRN Reason: muscle spasticity Last Admin: 06/20/22 01:39 Dose: 4 mg Tramadol HCl (Tramadol 50 Mg Tablet) 50 mg PO Q6H PRN PRN Reason: MODERATE PAIN Last Admin: 06/19/22 07:38 Dose: 50 mg Vitals/I&O/Wt Last Vital Signs Temp 98.6 F 06/20/22 11:09 Pulse 57 L 06/20/22 11:09 Resp 18 06/20/22 11:09 BP 188/89 06/20/22 11:09 Pulse Ox 91 06/20/22 11:09 O2 Del Method 06/20/22 11:09 O2 Flow Rate 2 06/19/22 02:38 06/19/22 06/20/22 06/20/22 22:59 06:59 14:59 Intake Total 1670 / 2200 690 / 2890 500 / 500 Output Total 1560 / 1560 800 / 2360 Balance 110 / 640 -110 / 530 500 / 500 Weight last 48 hrs Weight 150 lb 8 oz Weight 155 lb 7 oz Weight 154 lb 11.2 oz Physical Exam Narrative: GENERAL: The patient is alert and oriented times three. Not in any acute distress. HEENT: No significant pallor, icterus or lymphadenopathy.Oral cavity: There are no mucous membrane lesions. NECK: Trachea appears to be central. No masses noted. No JVD or thyromegaly appreciated. RESPIRATORY: Chest is symmetrical. No intercostals muscle retraction or any accessory muscle activation. There is no chest wall tenderness. Breath sounds are heard bilaterally. No rales or rhonchi heard. No evidence of any consolidation. BREASTS: Deferred. HEART: The heart sounds are normal. No S3 or S4. No significant murmurs. No pericardial rub ABDOMEN: No vessel pulsations or distention. No tenderness. No organomegaly appreciated. Bowel sounds are normally heard. : Deferred. RECTAL: Deferred. LYMPHATIC: No lymphadenopathy noted in the neck. EXTREMITIES: No edema or cyanosis. No clubbing. MUSCULOSKELETAL: No acute joint deformities or swelling SKIN: There are no significant rashes or ecchymosis NEUROPSYCHIATRIC: The patient is alert and oriented x3. Appears to be in a good mood. No tremors or rigidity noted. Data 06/20/22 06:19 06/20/22 06:19 Other Labs: Laboratory Last Values WBC 15.8 10^3/uL (4.0-10.0) H 06/20/22 06:19 RBC 4.83 10^6/uL (4.1-5.3) 06/20/22 06:19 Hgb 11.1 g/dL (11.5-15.3) L D 06/20/22 06:19 Hct 38.6 % (37.0-47.0) D 06/20/22 06:19 MCV 79.9 fl (81-99) L D 06/20/22 06:19 MCH 23.0 pg (28.0-34.0) L 06/20/22 06:19 MCHC 28.8 g/dL (30.0-36.0) L 06/20/22 06:19 RDW 17.7 % (12.1-15.1) H 06/20/22 06:19 Plt Count 333 10^3/cmm (130-400) 06/20/22 06:19 MPV 10.8 fL (7.4-10.4) H 06/20/22 06:19 Neut % (Auto) 76.9 % 06/20/22 06:19 Lymph % (Auto) 14.2 % 06/20/22 06:19 [place] % (Auto) 7.8 % 06/20/22 06:19 Eos % (Auto) 0.0 % 06/20/22 06:19 Baso % (Auto) 0.2 % 06/20/22 06:19 Neut # (Auto) 12.17 10^3/uL (1.8-7.7) H 06/20/22 06:19 Lymph # (Auto) 2.3 10^3/uL (0.8-4.8) 06/20/22 06:19 [place] # (Auto) 1.2 10^3/uL (0.2-0.9) H 06/20/22 06:19 Eos # (Auto) 0.0 10^3/uL (0.0-0.8) 06/20/22 06:19 Baso # (Auto) 0.0 10^3/uL (0.0-0.1) 06/20/22 06:19 Nucleated RBC % (auto) 0 % 06/20/22 06:19 Nucleated RBCs # 0.0 /100WBC 06/20/22 06:19 ESR 40 mm/hr (0-15) H 06/17/22 13:35 Specimen Type Arterial 06/17/22 12:35 Sample Site Radial, left 06/17/22 12:35 ABG pH 7.54 (7.35-7.45) H 06/17/22 12:35 ABG pCO2 30.7 mmHg (35-45) L 06/17/22 12:35 ABG pO2 55.0 mmHg (80.0-100.0) L 06/17/22 12:35 ABG HCO3 26.0 mmol/L (22-26) 06/17/22 12:35 ABG Base Excess 3.4 mmol/L (-2.0-2.0) H 06/17/22 12:35 Shahzad Test Pos 06/17/22 12:35 Hematocrit 26.4 % (37-47) L 06/17/22 12:35 Hgb O2 Saturation 88.3 % (95-100) L 06/17/22 12:35 Carboxyhemoglobin 2.4 %THgb (0.4-20.1) 06/17/22 12:35 Methemoglobin 0.3 % (0.4-1.5) L 06/17/22 12:35 Total Hemoglobin 8.6 g/dL (12-16) L 06/17/22 12:35 O2 Delivery Device Room air 06/17/22 12:35 FiO2 21.0 % 06/17/22 12:35 Forepart [place] ID Cak 06/17/22 12:35 Sodium 137 mmol/L (136-145) 06/20/22 06:19 Potassium 3.7 mmol/L (3.5-5.1) 06/20/22 06:19 Chloride 98 mmol/L (98-107) 06/20/22 06:19 Carbon Dioxide 20 mmol/L (22-29) L 06/20/22 06:19 Anion Gap 22.7 (5-19) H 06/20/22 06:19 BUN 25 mg/dL (8-23) H 06/20/22 06:19 Creatinine 1.0 mg/dL (0.5-0.9) H 06/20/22 06:19 GFR Calculation 55.1 mL/min (90-130) L 06/20/22 06:19 Glucose 193 mg/dL (65-115) H 06/20/22 06:19 Estimat Average Glucose 105 06/18/22 05:22 Hemoglobin A1c 5.3 % (4.0-6.0) 06/18/22 05:22 Calculated Osmolality 294 mOsm/kg (285-295) 06/20/22 06:19 Lactic Acid 2.9 mmol/L (0.5-2.2) H 06/17/22 13:45 Lactic Acid (Sepsis) 1.8 mmol/L (0.5-2.2) 06/17/22 17:53 Lactate 2.6 mmol/L (0.5-2.2) H 06/18/22 08:39 Calcium 9.7 mg/dL (8.5-10.5) 06/20/22 06:19 Phosphorus 2.6 mg/dL (2.5-4.5) 06/18/22 08:39 Magnesium 1.9 mg/dL (1.7-2.3) 06/20/22 06:19 Total Bilirubin 0.2 mg/dL (0.15-1.2) 06/20/22 06:19 AST 51 U/L (0-32) H 06/20/22 06:19 ALT 38 U/L (0-33) H 06/20/22 06:19 Alkaline Phosphatase 156 U/L (35-105) H 06/20/22 06:19 Troponin T Gen 5 ng/L 9 ng/L (0-10) 06/18/22 15:40 Troponin T Baseline 21 ng/L (0-10) H 06/17/22 13:45 Troponin T 120 Minute 22.30 ng/L (0-10) H 06/17/22 15:43 Delta Troponin T 1.30 ABS# (0-10) 06/17/22 15:43 Troponin T Hi Sens 6Hr 15.75 ng/L (0-10) H 06/17/22 21:25 Troponin T Hi Sens 6Hr Delta -5.25 ng/L (0-12) L 06/17/22 21:25 C-Reactive Protein 75.8 mg/L (0.0-4.9) H 06/17/22 13:46 NT-Pro-B Natriuret Pep 1916 pg/mL (0-125) H 06/17/22 13:45 Total Protein 7.4 g/dL (6.6-8.7) 06/20/22 06:19 Albumin 3.9 g/dL (3.5-5.2) 06/20/22 06:19 Globulin 3.5 g/dL (1.3-4.6) 06/20/22 06:19 Triglycerides 49 mg/dL (0-150) 06/18/22 05:22 Cholesterol 160 mg/dL (0-200) 06/18/22 05:22 LDL Cholesterol, Calc 93 mg/dL (50-129) 06/18/22 05:22 Total VLDL Cholesterol 10 mg/dL (0-30) 06/18/22 05:22 HDL Cholesterol 57 mg/dL (60-100) L 06/18/22 05:22 Cholesterol/HDL Ratio 2.81 mg/dL (0.0-4.40) 06/18/22 05:22 Vitamin B12 544 pg/mL (232-1245) 06/17/22 15:43 Folate 14.3 ng/mL (4.8-37.3) 06/17/22 13:30 Procalcitonin 17.88 ng/mL (0-0.5) H 06/19/22 04:32 TSH 0.55 uIU/mL (0.27-4.20) 06/18/22 08:39 Urine Color Yellow (Yellow) 06/18/22 Unknown Urine Appearance Hazy (CLEAR) A 06/18/22 Unknown Urine pH 6.5 (5-7) 06/18/22 Unknown Ur Specific [place] 1.005 (1.005-1.030) 06/18/22 Unknown Urine Protein Neg (Negative) 06/18/22 Unknown Urine Glucose (UA) Norm (Normal) 06/18/22 Unknown Urine Ketones Negative (Negative) 06/18/22 Unknown Urine Blood Neg (Negative) 06/18/22 Unknown Urine Nitrate Negative (Negative) 06/18/22 Unknown Urine Bilirubin Neg (Negative) 06/18/22 Unknown Urine Urobilinogen Neg mg/dL (Negative) 06/18/22 Unknown Ur Leukocyte Esterase Negative (Negative) 06/18/22 Unknown Urine RBC None /hpf (0-2) 06/18/22 Unknown Urine WBC 0-4 /hpf (0-5) H 06/18/22 Unknown Ur Squamous Epith Cells 0-4 /hpf (0-5) H 06/18/22 Unknown Amorphous Sediment 1+ /hpf 06/18/22 Unknown Urine Bacteria Trace /hpf (NONE) 06/18/22 Unknown Coronavirus 229E (PCR) Not detected (NOT DETECT) 06/17/22 12:55 SARS-CoV-2 (PCR) Not detected (NOT DETECT) 06/17/22 12:55 Blood Type O Positive 06/18/22 08:39 Rho(D) Type Positive 06/18/22 08:39 Antibody Screen Not Reportable 06/18/22 08:39 PEG Antibody Screen Negative 06/18/22 08:39 Crossmatch See Detail 06/18/22 08:39 Micro: Microbiology 06/18/22 16:00 MRSA Culture - Final Nose A&P Assessment and plan (1) Bradycardia: Patient is currently asymptomatic. I may hold off on intervention at this point. Continue monitoring. (2) Multifocal pneumonia: Antibiotic management as per the primary. (3) Rheumatoid arthritis: May continue on the current treatment. Qualifiers: Rheumatoid arthritis location: multiple sites Rheumatoid factor presence: with rheumatoid factor Qualified Code(s): M05.79 - Rheumatoid arthritis with rheumatoid factor of multiple sites without organ or systems involvement (4) Acute respiratory failure with hypoxemia: The respiratory status seems to be improving. (5) Iron deficiency anemia: Patient may require a bone marrow study sometime down the line. She does not seem to have any obvious bleed. (6) Hypothyroidism: Her TSH was within normal limits, on 06/18/2022. Clinically seems to be euthyroid. Plan Her other problems are Chronic musculoskeletal pain Rheumatoid arthritis Dyslipidemia History of acute kidney injury, currently the kidney function seems to be almost back to baseline Moderate tricuspid regurgitation Mild pulmonary hypertension If the patient continues to remain stable, we may hold off on any intervention. she may go home with an event monitor. Based on the event monitor findings, further recommendations will be made. May encourage ambulation on telemetry before discharge Attestations Medical Necessity Statement*: Deferred to the primary Coding Level of Care Code 83832 Diagnoses Bradycardia R00.1 Multifocal pneumonia J18.9 Rheumatoid arthritis M05.79 Rheumatoid arthritis location: multiple sites Rheumatoid factor presence: with rheumatoid factor Acute respiratory failure with hypoxemia J96.01 Iron deficiency anemia D50.9 Hypothyroidism E03.9
--- NOTE | 2022-06-20 11:59 | CTR_ITS ---
PROCEDURE INFORMATION: Exam: CT Head Without Contrast Exam date and time: 06/20/2022 1:55 PM Age: 67 years old Clinical indication: Pain; Headache TECHNIQUE: Imaging protocol: Computed tomography of the head without contrast. Radiation optimization: All CT scans at this facility use at least one of these dose optimization techniques: automated exposure control; mA and/or kV adjustment per patient size (includes targeted exams where dose is matched to clinical indication); or iterative reconstruction. REPORTING DATA: Count of CT and Cardiac NM exams in prior 12 months: This patient has received 3 known CTs and 0 known cardiac nuclear medicine studies in the 12 months prior to the current study. COMPARISON: CT head wo con* [id number] 06/17/2022 3:06 PM RADIATION DOSE METRICS: Total DLP (mGy-cm): 1018.98 FINDINGS: Brain: No acute intracranial hemorrhage. No edema. No mass effect. No focal abnormality in brain parenchyma. Cerebral ventricles: No ventriculomegaly. Paranasal sinuses: Visualized sinuses are unremarkable. No fluid levels. Mastoid air cells: No mastoid effusion. Bones/joints: No acute fracture. No suspicious lytic or sclerotic bone lesions. Soft tissues: Unremarkable. CT/CT head wo con* [id number] IMPRESSION: No acute intracranial abnormality.
[2022-06-20] MEDS: hyDRALAzine 20 mg/mL INJ 1 mL 10 MG IVP (12:16)
[2022-06-20] MEDS: HYDROmorphone 1 mg/mL INJ 1 mL 0.4 MG IVP ×2 (12:23→19:40)
[2022-06-20] MEDS: ipratropium-albuterol 3 mL Neb INHALATION (14:29)
--- NOTE | 2022-06-20 17:54 | P.PN_ITS ---
Subjective Subjective: Today morning seen in [facility]. Patient remains off oxygen. Heart improving when awake but going to high 30 when sleeping. c/o headache with nausea but no vomiting. Blood pressure elevated today going [id number] systolics. Worked with PT. Vitals/I&O/Wt Last Vital Signs Temp 99.6 F 06/21/22 12:26 Pulse 72 06/21/22 12:26 Resp 26 H 06/21/22 12:26 BP 157/80 06/21/22 12:26 Pulse Ox 95 06/21/22 12:26 O2 Del Method 06/21/22 11:52 O2 Flow Rate 2 06/19/22 02:38 06/21/22 06/21/22 06/21/22 06:59 14:59 22:59 Intake Total 170 / 170 Output Total Balance 170 / 170 Weight last 48 hrs Weight 68.674 kg Weight 68.266 kg Physical Exam Narrative: General:In distress due to headache, AO x3, on room air HEENT: PERRLA, pupils bilaterally equal and reactive Chest: Normal vesicular breath sounds bilaterally all over lung [place], coarse crackles and rhonchi present in right upper and lower zone, mild decreased air entry bilaterally lower zone CVS: S1-S2 regular, no murmurs, no tachycardia, no gallops, no rubs Abdomen: Soft, nontender, no organomegaly, bowel sounds present, morbidly obese Neuro: No focal deficits, no facial deformity, AO x3, power 5/5 in all limbs Data 06/21/22 04:50 06/21/22 04:50 Micro: Microbiology 06/19/22 16:28 Gram Stain - Final Sputum - Expectorated Sputum Sputum Culture - Preliminary A&P Assessment and plan (1) Bradycardia: New. Significant. Possibly symptomatic though difficult to state as she is complaining of dizziness weakness since COVID earlier in the year. Does complain of sleepiness but patient did get morphine early in the morning. Continue to monitor. Telemetry. Patient continues to have bradycardia on telemetry. Still complaining of occasional episodes of dizziness and woozy. Keep magnesium around 2, potassium around 4. Will consult cardiology for further recommendations. Repeat EKG on 06/19 shows rate of 34 with QTc of 410. (2) Multifocal pneumonia: As seen on CT chest. High concerns for aspiration pneumonia. Treatment as above. Pulmonary toilet with incentive spirometry and flutter valve. Out of bed to chair. (3) Rheumatoid arthritis: Does have history of rheumatoid arthritis in the past. Not on methotrexate anymore. Cannot rule out rheumatoid lung. Appreciate ESR to be slightly elevated. Steroid should help with the same. We will continue to monitor. If patient has prolonged hospital course or slow recovery can get pulmonology involved for possible lung biopsy through bronchoscopy. Qualifiers: Rheumatoid arthritis location: multiple sites Rheumatoid factor presence: with rheumatoid factor Qualified Code(s): M05.79 - Rheumatoid arthritis with rheumatoid factor of multiple sites without organ or systems involvement (4) Acute respiratory failure with hypoxemia: Most likely secondary to multifocal pneumonia in setting of recent COVID-19 along with mild COPD exacerbation. Given history of rheumatoid arthritis not on methotrexate anymore cannot rule out rheumatoid lung versus atypical infections like Aspergillus, histoplasma or coccidiomycosis especially given the significant lung nodules and hilar lymphadenopathy. Oxygen supplementation keeping oxygen saturation over 88%. DuoNebs every 6 hour, budesonide twice daily. Wean down Solu-Medrol 40 mg daily. IV Lasix 40 mg 1 time per day. Strict intake and output charting, daily weights. (5) Iron deficiency anemia: Iron panel appreciated. Started on oral iron supplementation. Vitamin B12 and folate levels within normal limits. Target hemoglobin around 8. Will transfuse 1 unit of PRBC today. Monitor hemoglobin daily for now. (6) Hypothyroidism: Continue home dose of levothyroxine. Plan Analgesia: Tylenol as needed, oxycodone IR 5 mg 3 times daily as needed as home dose Glycemic control: Not needed. Nutrition: Cardiac diet CODE STATUS: Full code PUD prophylaxis: Protonix DVT prophylaxis: Heparin 5000 every 12 hourly Discharge planning: Home with caregiver once medically stable. Continue with [facility]SU. plan for the day: start on amlo 5 mg daily. hydralazine iv 10 q6h as needed for sbp of more than 170 ct head to r/on bleed telemetry PT. out of bed to chair c/w abx, O2 supplementation keeping over 90% Tramadol for headache Patient's care discussed in detail with patient and patient's family at bedside. Medical reconciliation done with the patient. She takes gabapentin 200 mg 3 times a day, Requip twice daily and tizanidine as needed. Medication changed in the system. States she does not take fluoxetine. Takes clonazepam once every 2 to 3 days as needed. This documentation was created by [employer] sheet metal shop helper software. Every effort was made to ensure accuracy of sheet metal shop helper. Any obvious errors or omissions should be clarified with the author of the document. Attestations Medical Necessity Statement*: needs to stay for sepsis with hypoxia, significant paige due to sepsis, high blood pressure while antihypertensive is started. Diagnoses Bradycardia R00.1 Multifocal pneumonia J18.9 Rheumatoid arthritis M05.79 Rheumatoid arthritis location: multiple sites Rheumatoid factor presence: with rheumatoid factor Acute respiratory failure with hypoxemia J96.01 Iron deficiency anemia D50.9 Hypothyroidism E03.9
[2022-06-20] MEDS: vancomycin 1,250 MG/250 ML PIGGYBACK 250 MG IV (19:23)
[2022-06-20] MEDS: CLONazepam 1 mg Tablet PO (20:22)
[2022-06-20] MEDS: sennosides 8.6 mg Tablet 17.2 MG PO (20:23)
[2022-06-20] MEDS: calcium carbonate 500 mg Chew Tablet 1000 MG PO (20:23)
[2022-06-21] VITALS (9 sets, daily range): BP systolic 126–157; BP diastolic 63–80; PULSE 46–72; RESP 16–26; TEMP 37.1–37.6; O2SAT 92–97
[2022-06-21] MEDS: heparin 5,000 unit/mL INJ 1 mL 5000 UNIT SUBCUT ×2 (03:35→10:14)
[2022-06-21] MEDS: piperacillin-tazobactam 3.375 GM in sodium chloride 0.9% (plus) 50 ML IV (04:29)
[2022-06-21 05:16] LABS: Basophils % 0.3 %; Eosinophils % 0.3 %; Hematocrit 34.7 % (37.0-47.0); Hemoglobin 10.6 g/dL (11.5-15.3); Lymphocytes # 2.4 10^3/uL (0.8-4.8); Lymphocytes % 21.2 %; Mean Corpuscular HGB Conc 30.5 g/dL (30.0-36.0); Mean Corpuscular Hemoglobin 23.4 pg (28.0-34.0); Mean Corpuscular Volume 76.6 fl (81-99); Monocytes % 9.1 %; Neutrophils # 7.23 10^3/uL (1.8-7.7); Neutrophils % 65.4 %; Nucleated Red Blood Cells % 0 %; Platelet Count 375 10^3/cmm (130-400); Red Blood Count 4.53 10^6/uL (4.1-5.3); Red Cell Distribution Width 17.8 % (12.1-15.1); White Blood Count 11.1 10^3/uL (4.0-10.0)
[2022-06-21] MEDS: levothyroxine 112 mcg Tablet PO (05:28)
[2022-06-21] MEDS: HYDROmorphone 1 mg/mL INJ 1 mL 0.4 MG IVP (05:28)
[2022-06-21 05:38] LABS: Alanine Aminotransferase 26 U/L (0-33); Albumin Level 3.4 g/dL (3.5-5.2); Alkaline Phosphatase 130 U/L (35-105); Anion Gap 16.8 (5-19); Aspartate Amino Transferase 21 U/L (0-32); Blood Urea Nitrogen 24 mg/dL (8-23); Calcium 9.4 mg/dL (8.5-10.5); Carbon Dioxide 23 mmol/L (22-29); Chloride 100 mmol/L (98-107); Globulin 3.7 g/dL (1.3-4.6); Glomerular Filtration Rate 49.4 mL/min (90-130); Glucose 102 mg/dL (65-115); Osmolality Calculated 286 mOsm/kg (285-295); Potassium 3.8 mmol/L (3.5-5.1); Sodium 136 mmol/L (136-145); Total Bilirubin 0.2 mg/dL (0.15-1.2); Total Protein 7.1 g/dL (6.6-8.7)
[2022-06-21] MEDS: ferrous gluconate 324 mg Tablet PO (08:17)
[2022-06-21] MEDS: gabapentin 100 mg Capsule 200 MG PO (08:18)
[2022-06-21] MEDS: pantoprazole DR 40 mg Tablet PO (08:18)
[2022-06-21] MEDS: aspirin 81 mg Chew Tablet PO (08:19)
[2022-06-21] MEDS: amlodipine 10 mg Tablet PO (08:19)
[2022-06-21] MEDS: ropinirole 2 mg Tablet 5 MG PO (08:19)
--- NOTE | 2022-06-21 11:36 | PM.DCS ---
Discharge Providers Date of Admission: 06/17/22 16:21 Date of Discharge: June 21, 2022 Attending Provider at Admission: Claudy Castañeda MD Attending Provider at Discharge: Claudy Castañeda MD Primary Care Provider: Kaiser Lisa MD Diagnoses at Discharge Discharge Diagnosis (1) Bradycardia: Status: Acute (2) Multifocal pneumonia: Status: Acute (3) Rheumatoid arthritis: Status: Acute Qualifiers: Rheumatoid arthritis location: multiple sites Rheumatoid factor presence: with rheumatoid factor Qualified Code(s): M05.79 - Rheumatoid arthritis with rheumatoid factor of multiple sites without organ or systems involvement (4) Acute respiratory failure with hypoxemia: Status: Acute (5) Iron deficiency anemia: Status: Acute (6) Hypothyroidism: Status: Acute Reason for Visit Reason for Visit: sob Hospital Course Hospital Course Tosha Perry is a 67 year old female with past medical history of rheumatoid arthritis previously on methotrexate which she is not taking currently, CKD stage III with baseline creatinine of around 1-1.2 with recent history of COVID-19 in April 2022 leading to hypoxic respiratory failure and hypovolemic shock requiring pressors and ICU, prediabetes, hypothyroidism who presents to the hospital because of difficulty in breathing along with cough and expectoration which is more than usual and high-grade fever for the last 2 days.? Patient states she was at her baseline health with cough and expectoration still yesterday morning when her symptoms are aggravated.? Right now she is also complaining of headache.? Denies any sick contacts or recent travels.? Complaining of nausea, vomiting and diarrhea. Blood work in the ER showed a white count 19,000, hemoglobin of 8.5, ABG showing a pH of 7.54 with PCO2 30, PO2 of 55, chemistry showing a sodium of 134, potassium 3.2, BUN of 15, creatinine of 1.1 with a lactate of 2.9, alkaline phosphatase of 127, baseline troponin of 21 with delta of 1.3 in 2 hours, CRP of 75 with proBNP of 1916 and procalcitonin of 35. Patient underwent CT chest abdomen pelvis with results as below. Patient was admitted to hospital for evaluation and management of sepsis and hypoxia in view of pneumonia. She was started on treatment with broad-spectrum empiric antibiotics along with inhalation treatment and IV steroids. On admission patient was found to be slightly dehydrated for which she started on IV fluids. Patient's hospitalization was complicated by her developing bradycardia which is symptomatic with patient developing dizziness, weakness along with episodes of hypertensive urgency. On admission and during hospitalization ACS was ruled out with negative troponins. Orthostatics were negative. She was started on antihypertensives after her blood pressures are well controlled. For symptomatic bradycardia cardiology was consulted and is believed her bradycardia is secondary to SA node dysfunction in view of sepsis. As her sepsis resolved her heart rate also steadily improved. Patient is not symptomatic anymore but heart rates are occasionally dipping down to high 40s. Patient is able to ambulate in the [place] without oxygen by herself. She has been discharged hemodynamically stable condition on new antihypertensives, oral Augmentin and Levaquin for next 5 days, steroid taper and event monitor for further evaluation and management of bradycardia. She is to follow-up with a primary care provider within next [address] Greene in next 1 month. She is to check her blood pressure daily at home and maintain a blood pressure diary. Care was discussed in detail with the patient and she verbalized understanding. Physical Exam Narrative: EXAM NARRATIVE: General: No acute distress, AO x3, on room air HEENT: PERRLA, pupils bilaterally equal and reactive Chest: Normal vesicular breath sounds bilaterally all over lung [place], coarse crackles and rhonchi present in right upper and lower zone, mild decreased air entry bilaterally lower zone CVS: S1-S2 regular, no murmurs, no tachycardia, no gallops, no rubs Abdomen: Soft, nontender, no organomegaly, bowel sounds present, morbidly obese Neuro: No focal deficits, no facial deformity, AO x3, power 5/5 in all limbs Discharge Data Studies Completed and Pending Completed Studies During Hospitalization Category Date Time Status CT head wo con* [id number] Routine Cat Scan 06/20/22 11:[address] head wo con* [id number] Stat Cat Scan 06/17/22 14:[address] abdomen pelvis [CT angio chest w abd pel w Cat Scan 06/17/22 14:26 Completed con] Stat XR chest 1V portable [id number] Routine Exams 06/19/22 15:28 Completed XR chest 1V portable [id number] Stat Exams 06/17/22 12:24 Completed CV. echo complete* [id number] Routine Ultrasound 06/17/22 16:53 Completed Pending at discharge Category Date Time Status Aspergillus AG,EIA,Serum Stat Lab 06/17/22 17:52 Received Blood Culture Stat Lab 06/17/22 13:45 Results Clostridioides Difficile PCR Routine Lab 06/19/22 04:57 Ordered Coccidioides AB Immunodiffusio Routine Lab 06/18/22 05:22 Received Enteric Bacterial Panel by PCR Routine Lab 06/19/22 04:57 Ordered Enteric Parasite Panel by PCR Routine Lab 06/19/22 04:57 Ordered Histoplasma Antibody Immunodif Routine Lab 06/18/22 08:39 Stop Req Histoplasma Quantitative AG Routine Lab 06/18/22 Received Immunochemical Fecal OCB Routine Lab 06/19/22 04:57 Ordered Lactoferrin Routine Lab 06/19/22 04:57 Ordered Pneumocystis PCP [Pneumocystis jiroveci Qual PCR] Lab 06/17/22 17:52 Received Routine Sputum Culture and Gram Stain Stat Lab 06/19/22 16:28 Results Vancomycin Trough Timed Lab 06/20/22 17:00 Ordered Radiology Impressions Chest/Abdomen/Pelvis CT 06/17/22 14:26 IMPRESSION: 1. Progressed nodular infiltrates in the RIGHT lower lobe and about the RIGHT hilum have developed since the prior examination April 13, 2022 suspicious for multifocal pneumonia. Recommend follow-up to resolution to exclude metastatic disease. 2. Chronic emphysematous changes with interstitial thickening and diffuse nodular interstitial infiltrates in the RIGHT greater than LEFT upper lobe similar to previous. 3. Prominent LEFT AP window lymph node measuring 14 mm 4. No evidence of pulmonary embolus. 5. Moderate esophageal hiatal hernia appears progressed compared to previous. Suspected associated distal esophagitis with gastritis and duodenitis. 6. Cardiomegaly. 7. No acute findings in the abdomen or pelvis. Chest X-Ray 06/19/22 15:28 Impression: Atherosclerosis. Head CT 06/20/22 11:59 IMPRESSION: No acute intracranial abnormality. Laboratory Results WBC 11.1 10^3/uL (4.0-10.0) H 06/21/22 04:50 RBC 4.53 10^6/uL (4.1-5.3) 06/21/22 04:50 Hgb 10.6 g/dL (11.5-15.3) L 06/21/22 04:50 Hct 34.7 % (37.0-47.0) L 06/21/22 04:50 MCV 76.6 fl (81-99) L 06/21/22 04:50 MCH 23.4 pg (28.0-34.0) L 06/21/22 04:50 MCHC 30.5 g/dL (30.0-36.0) D 06/21/22 04:50 RDW 17.8 % (12.1-15.1) H 06/21/22 04:50 Plt Count 375 10^3/cmm (130-400) 06/21/22 04:50 MPV 10.0 fL (7.4-10.4) 06/21/22 04:50 Neut % (Auto) 65.4 % 06/21/22 04:50 Lymph % (Auto) 21.2 % 06/21/22 04:50 [place] % (Auto) 9.1 % 06/21/22 04:50 Eos % (Auto) 0.3 % 06/21/22 04:50 Baso % (Auto) 0.3 % 06/21/22 04:50 Neut # (Auto) 7.23 10^3/uL (1.8-7.7) 06/21/22 04:50 Lymph # (Auto) 2.4 10^3/uL (0.8-4.8) 06/21/22 04:50 [place] # (Auto) 1.0 10^3/uL (0.2-0.9) H 06/21/22 04:50 Eos # (Auto) 0.0 10^3/uL (0.0-0.8) 06/21/22 04:50 Baso # (Auto) 0.0 10^3/uL (0.0-0.1) 06/21/22 04:50 Nucleated RBC % (auto) 0 % 06/21/22 04:50 Nucleated RBCs # 0.0 /100WBC 06/21/22 04:50 ESR 40 mm/hr (0-15) H 06/17/22 13:35 Specimen Type Arterial 06/17/22 12:35 Sample Site Radial, left 06/17/22 12:35 ABG pH 7.54 (7.35-7.45) H 06/17/22 12:35 ABG pCO2 30.7 mmHg (35-45) L 06/17/22 12:35 ABG pO2 55.0 mmHg (80.0-100.0) L 06/17/22 12:35 ABG HCO3 26.0 mmol/L (22-26) 06/17/22 12:35 ABG Base Excess 3.4 mmol/L (-2.0-2.0) H 06/17/22 12:35 Shahzad Test Pos 06/17/22 12:35 Hematocrit 26.4 % (37-47) L 06/17/22 12:35 Hgb O2 Saturation 88.3 % (95-100) L 06/17/22 12:35 Carboxyhemoglobin 2.4 %THgb (0.4-20.1) 06/17/22 12:35 Methemoglobin 0.3 % (0.4-1.5) L 06/17/22 12:35 Total Hemoglobin 8.6 g/dL (12-16) L 06/17/22 12:35 O2 Delivery Device Room air 06/17/22 12:35 FiO2 21.0 % 06/17/22 12:35 Nurses' Registry Director ID Cak 06/17/22 12:35 Sodium 136 mmol/L (136-145) 06/21/22 04:50 Potassium 3.8 mmol/L (3.5-5.1) 06/21/22 04:50 Chloride 100 mmol/L (98-107) 06/21/22 04:50 Carbon Dioxide 23 mmol/L (22-29) 06/21/22 04:50 Anion Gap 16.8 (5-19) 06/21/22 04:50 BUN 24 mg/dL (8-23) H 06/21/22 04:50 Creatinine 1.1 mg/dL (0.5-0.9) H 06/21/22 04:50 GFR Calculation 49.4 mL/min (90-130) L 06/21/22 04:50 Glucose 102 mg/dL (65-115) 06/21/22 04:50 Estimat Average Glucose 105 06/18/22 05:22 Hemoglobin A1c 5.3 % (4.0-6.0) 06/18/22 05:22 Calculated Osmolality 286 mOsm/kg (285-295) 06/21/22 04:50 Lactic Acid 2.9 mmol/L (0.5-2.2) H 06/17/22 13:45 Lactic Acid (Sepsis) 1.8 mmol/L (0.5-2.2) 06/17/22 17:53 Lactate 2.6 mmol/L (0.5-2.2) H 06/18/22 08:39 Calcium 9.4 mg/dL (8.5-10.5) 06/21/22 04:50 Phosphorus 2.6 mg/dL (2.5-4.5) 06/18/22 08:39 Magnesium 2.0 mg/dL (1.7-2.3) 06/21/22 04:50 Total Bilirubin 0.2 mg/dL (0.15-1.2) 06/21/22 04:50 AST 21 U/L (0-32) 06/21/22 04:50 ALT 26 U/L (0-33) 06/21/22 04:50 Alkaline Phosphatase 130 U/L (35-105) H 06/21/22 04:50 Troponin T Gen 5 ng/L 9 ng/L (0-10) 06/18/22 15:40 Troponin T Baseline 21 ng/L (0-10) H 06/17/22 13:45 Troponin T 120 Minute 22.30 ng/L (0-10) H 06/17/22 15:43 Delta Troponin T 1.30 ABS# (0-10) 06/17/22 15:43 Troponin T Hi Sens 6Hr 15.75 ng/L (0-10) H 06/17/22 21:25 Troponin T Hi Sens 6Hr Delta -5.25 ng/L (0-12) L 06/17/22 21:25 C-Reactive Protein 75.8 mg/L (0.0-4.9) H 06/17/22 13:46 NT-Pro-B Natriuret Pep 1916 pg/mL (0-125) H 06/17/22 13:45 Total Protein 7.1 g/dL (6.6-8.7) 06/21/22 04:50 Albumin 3.4 g/dL (3.5-5.2) L 06/21/22 04:50 Globulin 3.7 g/dL (1.3-4.6) 06/21/22 04:50 Triglycerides 49 mg/dL (0-150) 06/18/22 05:22 Cholesterol 160 mg/dL (0-200) 06/18/22 05:22 LDL Cholesterol, Calc 93 mg/dL (50-129) 06/18/22 05:22 Total VLDL Cholesterol 10 mg/dL (0-30) 06/18/22 05:22 HDL Cholesterol 57 mg/dL (60-100) L 06/18/22 05:22 Cholesterol/HDL Ratio 2.81 mg/dL (0.0-4.40) 06/18/22 05:22 Vitamin B12 544 pg/mL (232-1245) 06/17/22 15:43 Folate 14.3 ng/mL (4.8-37.3) 06/17/22 13:30 Procalcitonin 17.88 ng/mL (0-0.5) H 06/19/22 04:32 TSH 0.55 uIU/mL (0.27-4.20) 06/18/22 08:39 Urine Color Yellow (Yellow) 06/18/22 Unknown Urine Appearance Hazy (CLEAR) A 06/18/22 Unknown Urine pH 6.5 (5-7) 06/18/22 Unknown Ur Specific [place] 1.005 (1.005-1.030) 06/18/22 Unknown Urine Protein Neg (Negative) 06/18/22 Unknown Urine Glucose (UA) Norm (Normal) 06/18/22 Unknown Urine Ketones Negative (Negative) 06/18/22 Unknown Urine Blood Neg (Negative) 06/18/22 Unknown Urine Nitrate Negative (Negative) 06/18/22 Unknown Urine Bilirubin Neg (Negative) 06/18/22 Unknown Urine Urobilinogen Neg mg/dL (Negative) 06/18/22 Unknown Ur Leukocyte Esterase Negative (Negative) 06/18/22 Unknown Urine RBC None /hpf (0-2) 06/18/22 Unknown Urine WBC 0-4 /hpf (0-5) H 06/18/22 Unknown Ur Squamous Epith Cells 0-4 /hpf (0-5) H 06/18/22 Unknown Amorphous Sediment 1+ /hpf 06/18/22 Unknown Urine Bacteria Trace /hpf (NONE) 06/18/22 Unknown Random Vancomycin 24.0 ug/mL (20.0-40.0) 06/21/22 04:50 Coronavirus 229E (PCR) Not detected (NOT DETECT) 06/17/22 12:55 SARS-CoV-2 (PCR) Not detected (NOT DETECT) 06/17/22 12:55 Blood Type O Positive 06/18/22 08:39 Rho(D) Type Positive 06/18/22 08:39 Antibody Screen Not Reportable 06/18/22 08:39 PEG Antibody Screen Negative 06/18/22 08:39 Crossmatch See Detail 06/18/22 08:39 Vitals Last Vital Signs Temp 99.1 F 06/21/22 07:49 Pulse 64 06/21/22 07:49 Resp 21 H 06/21/22 07:49 BP 146/65 06/21/22 07:49 Pulse Ox 92 06/21/22 07:49 O2 Del Method 06/21/22 07:49 O2 Flow Rate 2 06/19/22 02:38 Discharge Plan Discharge Patient Disposition: Home Condition: Stable Prescriptions: New amlodipine 10 mg Tablet 10 mg PO DAILY Qty: 30 0RF ferrous gluconate 324 mg (37.5 mg iron) Tablet 324 mg PO BIDWM Qty: 60 0RF hydrochlorothiazide 12.5 mg tablet 12.5 mg PO DAILY Qty: 30 0RF amoxicillin-pot clavulanate 875-125 mg tablet 1 tab PO Q12H Qty: 10 0RF levofloxacin 750 mg tablet 750 mg PO Q24H 5 Days Qty: 5 0RF prednisone 10 mg tablet See Taper PO DIRECTED Qty: 30 0RF Taper: predniSONE 60-10 50 mg Daily for 2 Days and 0 Hour 40 mg Daily for 2 Days and 0 Hour 30 mg Daily for 2 Days and 0 Hour 20 mg Daily for 2 Days and 0 Hour 10 mg Daily for 2 Days and 0 Hour Rx Instructions: see taper instructions nystatin 100,000 unit/mL suspension 1 ml PO QID 14 Days Qty: 56 0RF Rx Instructions: swish and swallow Continued Proventil HFA 90 mcg/actuation HFA aerosol inhaler 1 inh inhalation Q6H PRN (Reason: shortness of breath or wheezing) Qty: 6.7 5RF tizanidine 4 mg capsule 4 mg PO Q8H PRN (Reason: muscle spasticity) Qty: 90 1RF ropinirole 5 mg tablet 5 mg PO TID PRN (Reason: Restless Leg(S)) Qty: 90 1RF levothyroxine 112 mcg tablet 112 mcg PO QAM Qty: 90 1RF gabapentin 300 mg capsule 300 mg PO TID Qty: 90 5RF dexlansoprazole [Dexilant] 30 mg capsule,biphase delayed releas 30 mg PO DAILY Qty: 90 1RF clonazepam 1 mg tablet 1 mg PO DAILY PRN (Reason: Anxiety/sleep) 30 Days Qty: 30 3RF oxycodone 5 mg tablet 5 mg PO TID PRN (Reason: pain) 30 Days Qty: 90 0RF Rx Instructions: Refill on or after 30-day interval. latanoprost 0.005 % drops 1 drp ophthalmic (eye) QPM fluoxetine 40 mg capsule 40 mg PO DAILY PRN (Reason: mood) Lasix 40 mg tablet 80 mg PO DAILY PRN (Reason: edema) ondansetron HCl 4 mg Tablet 4 mg PO DAILY PRN (Reason: Nausea And Vomiting) potassium chloride 10 mEq Tablet Extended Release 10 meq PO BID PRN (Reason: unknown) Hold Instructions: Resume on 04/29/22. aspirin 81 mg Tablet,Chewable 162 mg PO DAILY 30 Days Qty: 30 2RF Discharge Orders: Discharge Order (Routine); Ordered 06/21/22 Ordered By: Claudy Castañeda Other Ambulatory Orders: MCT/Event Monitor 21 Days (Routine) Timeframe: 1 Week Facility: [facility] - Location: Radiology Ordered By: Claudy Castañeda Referrals: [facility] [Provider Group] (Please call [facility] on Wednesday at [phone] to schedule an appointment for a 21 day event monitor. Thank you.) Kaiser Lisa MD [Primary Care Provider] - 1 week (Please call Dr. Gilbert's Office on Wednesday at [phone] to schedule a follow up appointment for 1 week. Thank you.) Discharge Diet: Cardiac Discharge Activity: Resume usual activity and Increase activity as tolerated Patient Instructions: Iron Supplements (By mouth) (Duofer, Fe-20, Bifera, Kash-Iron), Hydrochlorothiazide (By mouth) (Hydrocot, Microzide), Prednisone (By mouth) (predniSONE Intensol, Prednicot, Deltasone, Therese), Nystatin (By mouth) (First - Perry's Mouthwash, First - Cristel's..., Amoxicillin/Clavulanate Potassium (By mouth) (Augmentin, Augmentin..., Amlodipine (By mouth) (Hypertenipine-2.5, Norvasc, Norliqva), Levofloxacin (By mouth) (Levaquin, Levaquin Leva-priscilla), Opioid Safety Activity Restrictions/Additional Instructions: Take Augmentin and Levaquin which are the antibiotics for next 5 days. Augmentin is twice daily and Levaquin once daily. Please follow-up with a primary care provider within next 1 week for repeat BMP. Please check your blood pressure daily at home and maintain a blood pressure diary and follow-up with a primary care provider. You will be on prednisone which is to be taper as directed. You will also be on nystatin swish and swallow for the next 2 weeks. Please call the central scheduling tomorrow morning Wednesday for appointment for event monitor. Please follow-up with cardiology within next 1 month. Discharge Attestations Time Spent in Discharge Care*: greater than 30 min Specific Discharge Activities: educating patient, educating and/or supporting family/caregiver, discussing with pcp/other providers, discussing with registered nurse hh case manager/social workers/dc planners, documenting/other paperwork and evaluating patient/reviewing data Status at Discharge: Cognitive status at discharge: cognitively intact, Behavioral status at discharge: cooperative, Functional status at discharge: independent ambulation, Overall status at discharge: patient is back to baseline Quality Metrics Clinical Quality Measures [ No reported AMI, CVA or VTE this stay] Coding Level of Care Code 74800 Total time (in minutes) for Discharge: 65 Diagnoses Bradycardia R00.1 Multifocal pneumonia J18.9 Rheumatoid arthritis M05.79 Rheumatoid arthritis location: multiple sites Rheumatoid factor presence: with rheumatoid factor Acute respiratory failure with hypoxemia J96.01 Iron deficiency anemia D50.9 Hypothyroidism E03.9
--- NOTE | 2022-06-21 11:53 | PC.NURSE ---
Temp was 99.6 oral, retook and it was 98.7 oral retook one more time and it was 99.3 oral. Nurse alerted.
--- NOTE | 2022-06-21 12:42 | PM.PN ---
Subjective Subjective: The patient is feeling okay with no new symptoms. Vitals remained stable. Medications: Medication Review Details: Current Medications Acetaminophen (Acetaminophen 325 Mg Tablet) 650 mg PO Q6H PRN PRN Reason: Mild/Mod Pain Or Temp >/= 101 Albuterol/Ipratropium (Ipratropium-Albuterol 3 Ml Neb) 3 ml INHALATION Q6H.RESP [facility] Last Admin: 06/21/22 09:02 Dose: Not Given Amlodipine Besylate (Amlodipine 10 Mg Tablet) 10 mg PO DAILY [facility] Last Admin: 06/21/22 08:19 Dose: 10 mg Aspirin (Aspirin 81 Mg Chew Tablet) 81 mg PO DAILY [facility] Last Admin: 06/21/22 08:19 Dose: 81 mg Benzonatate (Benzonatate 100 Mg Capsule) 100 mg PO TID [facility] Last Admin: 06/21/22 08:25 Dose: Not Given Budesonide (Budesonide 0.5 Mg/2 Ml Neb) 0.5 mg INHALATION BID.RESPIRATORY [facility] Last Admin: 06/21/22 09:02 Dose: Not Given Calcium Carbonate (Calcium Carbonate 500 Mg Chew Tablet) 1,000 mg PO Q4H PRN PRN Reason: DYSPEPSI Last Admin: 06/20/22 20:23 Dose: 1,000 mg Clonazepam (Clonazepam 1 Mg Tablet) 1 mg PO DAILY PRN PRN Reason: Anxiety/sleep Last Admin: 06/20/22 20:22 Dose: 1 mg Docusate Sodium (Docusate Sodium 100 Mg Capsule) 100 mg PO BID [facility] Last Admin: 06/21/22 08:25 Dose: Not Given Ferrous Gluconate (Ferrous Gluconate 324 Mg Tablet) 324 mg PO BIDWM [facility] Last Admin: 06/21/22 08:17 Dose: 324 mg Gabapentin (Gabapentin 100 Mg Capsule) 200 mg PO TID [facility] Last Admin: 06/21/22 08:18 Dose: 200 mg Heparin Sodium (Porcine) (Heparin 5,000 Unit/Ml Inj 1 Ml) 5,000 unit SUBCUT Q8H [facility] Last Admin: 06/21/22 10:14 Dose: 5,000 unit Hydralazine HCl (Hydralazine 20 Mg/Ml Inj 1 Ml) 10 mg IVP Q4H PRN PRN Reason: pain scale 6-10 Last Admin: 06/20/22 12:16 Dose: 10 mg Hydromorphone HCl (Hydromorphone 1 Mg/Ml Inj 1 Ml) 0.4 mg IVP Q6H PRN PRN Reason: ps 6-10 Last Admin: 06/21/22 05:28 Dose: 0.4 mg Piperacillin Sod/Tazobactam (Sod 3.375 gm/ Sodium Chloride) 50 mls @ 12.5 mls/hr IV Q8H [facility] Last Infusion: 06/21/22 08:26 Dose: Infused Vancomycin/PEG/NADA/Lysine/Water (Vancocin) 1,250 mg in 250 mls @ 250 mls/hr IV Q24H [facility] Last Infusion: 06/20/22 20:29 Dose: Infused Levothyroxine Sodium (Levothyroxine 112 Mcg Tablet) 112 mcg PO QAM [facility] Last Admin: 06/21/22 05:28 Dose: 112 mcg Methylprednisolone Sodium Succinate (Methylprednisolone Sod Succ 40 Mg/Ml Inj) 40 mg IVP DAILY [facility] Last Admin: 06/21/22 08:20 Dose: 40 mg Metoclopramide HCl (Metoclopramide 5 Mg/Ml Sdv 2 Ml) 5 mg IVP Q8H PRN PRN Reason: NAUSEA AND VOMITING Naloxone HCl (Naloxone 0.4 Mg/Ml Sdv) 0.1 mg IVP Q2M PRN PRN Reason: OPIATERV Ondansetron HCl (Ondansetron 2 Mg/Ml Sdv 2 Ml) 4 mg IVP Q8H PRN PRN Reason: vomiting, or N/V if npo Last Admin: 06/20/22 20:28 Dose: 4 mg Oxycodone HCl (Oxycodone 5 Mg Ir Tab/Cap) 5 mg PO TID PRN PRN Reason: SEVERE pain Last Admin: 06/19/22 20:29 Dose: 5 mg Pantoprazole Sodium (Pantoprazole Dr 40 Mg Tablet) 40 mg PO DAILY [facility] Last Admin: 06/21/22 08:18 Dose: 40 mg Ropinirole HCl (Ropinirole 2 Mg Tablet) 5 mg PO BID [facility] Last Admin: 06/21/22 08:19 Dose: 5 mg Senna (Sennosides 8.6 Mg Tablet) 17.2 mg PO BEDTIME [facility] Last Admin: 06/20/22 20:23 Dose: 17.2 mg Tizanidine HCl (Tizanidine 4 Mg Tablet) 4 mg PO QPM PRN PRN Reason: muscle spasticity Last Admin: 06/20/22 01:39 Dose: 4 mg Tramadol HCl (Tramadol 50 Mg Tablet) 50 mg PO Q6H PRN PRN Reason: MODERATE PAIN Last Admin: 06/19/22 07:38 Dose: 50 mg Vitals/I&O/Wt Last Vital Signs Temp 99.6 F 06/21/22 12:26 Pulse 72 06/21/22 12:26 Resp 26 H 06/21/22 12:26 BP 157/80 06/21/22 12:26 Pulse Ox 95 06/21/22 12:26 O2 Del Method 06/21/22 11:52 O2 Flow Rate 2 06/19/22 02:38 06/20/22 06/21/22 06/21/22 21:59 06:59 14:59 Intake Total 170 / 170 Output Total Balance 170 / 170 Weight last 48 hrs Weight 151 lb 6.4 oz Weight 150 lb 8 oz Physical Exam Narrative: GENERAL: The patient is alert and oriented times three. Not in any acute distress. HEENT: No significant pallor, icterus or lymphadenopathy.Oral cavity: There are no mucous membrane lesions. NECK: Trachea appears to be central. No masses noted. No JVD or thyromegaly appreciated. RESPIRATORY: Chest is symmetrical. No intercostals muscle retraction or any accessory muscle activation. There is no chest wall tenderness. Breath sounds are heard bilaterally. No rales or rhonchi heard. No evidence of any consolidation. BREASTS: Deferred. HEART: The heart sounds are normal. No S3 or S4. No significant murmurs. No pericardial rub ABDOMEN: No vessel pulsations or distention. No tenderness. No organomegaly appreciated. Bowel sounds are normally heard. : Deferred. RECTAL: Deferred. LYMPHATIC: No lymphadenopathy noted in the neck. EXTREMITIES: No edema or cyanosis. No clubbing. MUSCULOSKELETAL: No acute joint deformities or swelling SKIN: There are no significant rashes or ecchymosis NEUROPSYCHIATRIC: The patient is alert and oriented x3. Appears to be in a good mood. No tremors or rigidity noted. Data 06/21/22 04:50 06/21/22 04:50 Other Labs: Laboratory Last Values WBC 11.1 10^3/uL (4.0-10.0) H 06/21/22 04:50 RBC 4.53 10^6/uL (4.1-5.3) 06/21/22 04:50 Hgb 10.6 g/dL (11.5-15.3) L 06/21/22 04:50 Hct 34.7 % (37.0-47.0) L 06/21/22 04:50 MCV 76.6 fl (81-99) L 06/21/22 04:50 MCH 23.4 pg (28.0-34.0) L 06/21/22 04:50 MCHC 30.5 g/dL (30.0-36.0) D 06/21/22 04:50 RDW 17.8 % (12.1-15.1) H 06/21/22 04:50 Plt Count 375 10^3/cmm (130-400) 06/21/22 04:50 MPV 10.0 fL (7.4-10.4) 06/21/22 04:50 Neut % (Auto) 65.4 % 06/21/22 04:50 Lymph % (Auto) 21.2 % 06/21/22 04:50 [place] % (Auto) 9.1 % 06/21/22 04:50 Eos % (Auto) 0.3 % 06/21/22 04:50 Baso % (Auto) 0.3 % 06/21/22 04:50 Neut # (Auto) 7.23 10^3/uL (1.8-7.7) 06/21/22 04:50 Lymph # (Auto) 2.4 10^3/uL (0.8-4.8) 06/21/22 04:50 [place] # (Auto) 1.0 10^3/uL (0.2-0.9) H 06/21/22 04:50 Eos # (Auto) 0.0 10^3/uL (0.0-0.8) 06/21/22 04:50 Baso # (Auto) 0.0 10^3/uL (0.0-0.1) 06/21/22 04:50 Nucleated RBC % (auto) 0 % 06/21/22 04:50 Nucleated RBCs # 0.0 /100WBC 06/21/22 04:50 ESR 40 mm/hr (0-15) H 06/17/22 13:35 Specimen Type Arterial 06/17/22 12:35 Sample Site Radial, left 06/17/22 12:35 ABG pH 7.54 (7.35-7.45) H 06/17/22 12:35 ABG pCO2 30.7 mmHg (35-45) L 06/17/22 12:35 ABG pO2 55.0 mmHg (80.0-100.0) L 06/17/22 12:35 ABG HCO3 26.0 mmol/L (22-26) 06/17/22 12:35 ABG Base Excess 3.4 mmol/L (-2.0-2.0) H 06/17/22 12:35 Shahzad Test Pos 06/17/22 12:35 Hematocrit 26.4 % (37-47) L 06/17/22 12:35 Hgb O2 Saturation 88.3 % (95-100) L 06/17/22 12:35 Carboxyhemoglobin 2.4 %THgb (0.4-20.1) 06/17/22 12:35 Methemoglobin 0.3 % (0.4-1.5) L 06/17/22 12:35 Total Hemoglobin 8.6 g/dL (12-16) L 06/17/22 12:35 O2 Delivery Device Room air 06/17/22 12:35 FiO2 21.0 % 06/17/22 12:35 Pharmacy Picking Technician ID Cak 06/17/22 12:35 Sodium 136 mmol/L (136-145) 06/21/22 04:50 Potassium 3.8 mmol/L (3.5-5.1) 06/21/22 04:50 Chloride 100 mmol/L (98-107) 06/21/22 04:50 Carbon Dioxide 23 mmol/L (22-29) 06/21/22 04:50 Anion Gap 16.8 (5-19) 06/21/22 04:50 BUN 24 mg/dL (8-23) H 06/21/22 04:50 Creatinine 1.1 mg/dL (0.5-0.9) H 06/21/22 04:50 GFR Calculation 49.4 mL/min (90-130) L 06/21/22 04:50 Glucose 102 mg/dL (65-115) 06/21/22 04:50 Estimat Average Glucose 105 06/18/22 05:22 Hemoglobin A1c 5.3 % (4.0-6.0) 06/18/22 05:22 Calculated Osmolality 286 mOsm/kg (285-295) 06/21/22 04:50 Lactic Acid 2.9 mmol/L (0.5-2.2) H 06/17/22 13:45 Lactic Acid (Sepsis) 1.8 mmol/L (0.5-2.2) 06/17/22 17:53 Lactate 2.6 mmol/L (0.5-2.2) H 06/18/22 08:39 Calcium 9.4 mg/dL (8.5-10.5) 06/21/22 04:50 Phosphorus 2.6 mg/dL (2.5-4.5) 06/18/22 08:39 Magnesium 2.0 mg/dL (1.7-2.3) 06/21/22 04:50 Total Bilirubin 0.2 mg/dL (0.15-1.2) 06/21/22 04:50 AST 21 U/L (0-32) 06/21/22 04:50 ALT 26 U/L (0-33) 06/21/22 04:50 Alkaline Phosphatase 130 U/L (35-105) H 06/21/22 04:50 Troponin T Gen 5 ng/L 9 ng/L (0-10) 06/18/22 15:40 Troponin T Baseline 21 ng/L (0-10) H 06/17/22 13:45 Troponin T 120 Minute 22.30 ng/L (0-10) H 06/17/22 15:43 Delta Troponin T 1.30 ABS# (0-10) 06/17/22 15:43 Troponin T Hi Sens 6Hr 15.75 ng/L (0-10) H 06/17/22 21:25 Troponin T Hi Sens 6Hr Delta -5.25 ng/L (0-12) L 06/17/22 21:25 C-Reactive Protein 75.8 mg/L (0.0-4.9) H 06/17/22 13:46 NT-Pro-B Natriuret Pep 1916 pg/mL (0-125) H 06/17/22 13:45 Total Protein 7.1 g/dL (6.6-8.7) 06/21/22 04:50 Albumin 3.4 g/dL (3.5-5.2) L 06/21/22 04:50 Globulin 3.7 g/dL (1.3-4.6) 06/21/22 04:50 Triglycerides 49 mg/dL (0-150) 06/18/22 05:22 Cholesterol 160 mg/dL (0-200) 06/18/22 05:22 LDL Cholesterol, Calc 93 mg/dL (50-129) 06/18/22 05:22 Total VLDL Cholesterol 10 mg/dL (0-30) 06/18/22 05:22 HDL Cholesterol 57 mg/dL (60-100) L 06/18/22 05:22 Cholesterol/HDL Ratio 2.81 mg/dL (0.0-4.40) 06/18/22 05:22 Vitamin B12 544 pg/mL (232-1245) 06/17/22 15:43 Folate 14.3 ng/mL (4.8-37.3) 06/17/22 13:30 Procalcitonin 17.88 ng/mL (0-0.5) H 06/19/22 04:32 TSH 0.55 uIU/mL (0.27-4.20) 06/18/22 08:39 Urine Color Yellow (Yellow) 06/18/22 Unknown Urine Appearance Hazy (CLEAR) A 06/18/22 Unknown Urine pH 6.5 (5-7) 06/18/22 Unknown Ur Specific [place] 1.005 (1.005-1.030) 06/18/22 Unknown Urine Protein Neg (Negative) 06/18/22 Unknown Urine Glucose (UA) Norm (Normal) 06/18/22 Unknown Urine Ketones Negative (Negative) 06/18/22 Unknown Urine Blood Neg (Negative) 06/18/22 Unknown Urine Nitrate Negative (Negative) 06/18/22 Unknown Urine Bilirubin Neg (Negative) 06/18/22 Unknown Urine Urobilinogen Neg mg/dL (Negative) 06/18/22 Unknown Ur Leukocyte Esterase Negative (Negative) 06/18/22 Unknown Urine RBC None /hpf (0-2) 06/18/22 Unknown Urine WBC 0-4 /hpf (0-5) H 06/18/22 Unknown Ur Squamous Epith Cells 0-4 /hpf (0-5) H 06/18/22 Unknown Amorphous Sediment 1+ /hpf 06/18/22 Unknown Urine Bacteria Trace /hpf (NONE) 06/18/22 Unknown Random Vancomycin 24.0 ug/mL (20.0-40.0) 06/21/22 04:50 Coronavirus 229E (PCR) Not detected (NOT DETECT) 06/17/22 12:55 SARS-CoV-2 (PCR) Not detected (NOT DETECT) 06/17/22 12:55 Blood Type O Positive 06/18/22 08:39 Rho(D) Type Positive 06/18/22 08:39 Antibody Screen Not Reportable 06/18/22 08:39 PEG Antibody Screen Negative 06/18/22 08:39 Crossmatch See Detail 06/18/22 08:39 Micro: Microbiology 06/19/22 16:28 Gram Stain - Final Sputum - Expectorated Sputum Sputum Culture - Preliminary A&P Assessment and plan (1) Bradycardia: Patient is currently asymptomatic. I may hold off any intervention at this point. Continue monitoring. (2) Multifocal pneumonia: Antibiotic management as per the primary. (3) Rheumatoid arthritis: May continue on the current treatment. Qualifiers: Rheumatoid arthritis location: multiple sites Rheumatoid factor presence: with rheumatoid factor Qualified Code(s): M05.79 - Rheumatoid arthritis with rheumatoid factor of multiple sites without organ or systems involvement (4) Acute respiratory failure with hypoxemia: The respiratory status seems to be improving. (5) Iron deficiency anemia: Patient may require a bone marrow study sometime down the line. She does not seem to have any obvious bleed. (6) Hypothyroidism: Her TSH was within normal limits, on 06/18/2022. Clinically seems to be euthyroid. Plan Her other problems are Chronic musculoskeletal pain Rheumatoid arthritis Dyslipidemia History of acute kidney injury, currently the kidney function seems to be almost back to baseline Moderate tricuspid regurgitation Mild pulmonary hypertension If the patient continues to remain stable, we may hold off on any intervention. she may go home with an event monitor. Based on the event monitor findings, further recommendations will be made. May encourage ambulation on telemetry before discharge Attestations Medical Necessity Statement*: Disposition as per the primary Coding Level of Care Code 79936 Diagnoses Bradycardia R00.1 Multifocal pneumonia J18.9 Rheumatoid arthritis M05.79 Rheumatoid arthritis location: multiple sites Rheumatoid factor presence: with rheumatoid factor Acute respiratory failure with hypoxemia J96.01 Iron deficiency anemia D50.9 Hypothyroidism E03.9
[2022-06-23 20:14] LABS: Aspergillus AG,EIA,Serum NOT DETECTED; Aspergillus Galactomannan Inde <0.50
[2022-06-25 07:10] LABS: Histoplasma Antigen (Quant) NONE DETECTED; Histoplasma Antigen Interpreta NEGATIVE; Histoplasma Antigen Specimen URINE
[2022-06-25 16:50] LABS: Histoplasma capsulatum H Ab NEGATIVE; Histoplasma capsulatum M Ab NEGATIVE
[2022-06-25 16:50] LABS: Coccidioides IgG Antibody NEGATIVE; Coccidioides IgM Antibody NEGATIVE
== END 2022-06-21 13:26 | disposition home health service (06) | DRG 871 ==
LOC: ER 16:31 → ER IP 16:40 → MEDSURG 16:53 → CSU 06-18 13:54
PROVIDERS: Family Medicine; Admitting Provider Student in an Organized Health Care Education/Training Program; Emergency Provider Emergency Medicine; PCP Family Medicine Adult Medicine; Visit Provider Student in an Organized Health Care Education/Training Program
DX: A41.9 Sepsis, unspecified organism (principal); J18.9 Pneumonia, unspecified organism; J96.01 Acute respiratory failure with hypoxia; J44.1 Chronic obstructive pulmonary disease with (acute) exacerbation; J44.0 Chronic obstructive pulmonary disease with (acute) lower respiratory infection; N17.9 Acute kidney failure, unspecified; E86.0 Dehydration; M05.9 Rheumatoid arthritis with rheumatoid factor, unspecified; R73.03 Prediabetes; N18.30 Chronic kidney disease, stage 3 unspecified; Z86.16 Personal history of COVID-19; E03.9 Hypothyroidism, unspecified; I16.0 Hypertensive urgency; Z79.51 Long term (current) use of inhaled steroids; Z79.82 Long term (current) use of aspirin; Z79.891 Long term (current) use of opiate analgesic; D50.9 Iron deficiency anemia, unspecified; F51.02 Adjustment insomnia; Z87.891 Personal history of nicotine dependence; I07.1 Rheumatic tricuspid insufficiency; R42 Dizziness and giddiness; E78.5 Hyperlipidemia, unspecified; G89.29 Other chronic pain; M54.9 Dorsalgia, unspecified; F06.4 Anxiety disorder due to known physiological condition; F32.A Depression, unspecified
CPT/HCPCS: 36415; 36430; 36600; 51701; 51702; 70450; 71045; 71275; 74177; 80053; 80061; 80202; 80306; 80307; 81001; 81003; 82274; 82550; 82607; 82746; 82805; 83036; 83605; 83630; 83735; 83880; 84100; 84145; 84443; 84484; 85018; 85025; 85651; 86140; 86403; 86635; 86698; 86850; 86900; 86920; 87040; 87070; 87205; 87305; 87385; 87449; 87493; 87506; 87635; 87641; 87798; 93005; 93306; 94640; 94664; 96365; 96367; 96372; 96375; 96376; 97116; 97162; 99285; A9270; C9113; G0378; J0360; J0461; J0515; J1170; J1450; J1630; J1644; J1885; J1940; J2060; J2270; J2405; J2543; J2550; J2920; J2930; J3010; J3370; J3475; J3480; J7030; J7040; J7120; J7626; P9016; Q9967

== ENCOUNTER 2022-06-23 18:57 | Inpatient (IN) | payer MEDICARE, OTHER, SELFPAY ==
[2022-06-23] VITALS (9 sets, daily range): BP systolic 96–153; BP diastolic 51–66; PULSE 62–90; RESP 14–20; TEMP 36.9–37.1; O2SAT 93–99; BMI 23.5
--- NOTE | 2022-06-23 18:58 | ED_ITS ---
HPI - Altered Mental Status General: Chief Complaint: Altered Mental Status Stated Complaint: AMS Time Seen by Provider: 06/23/22 18:58 History of Present Illness: Mr. Perry is a 67-year-old lady with recent hospitalization for sepsis with hypoxemia in the context of pneumonia with co mplex hospital course presenting to the emergency department for altered mental status. She provides somewhat limited history. Initially EMS was called for possible seizure-like activity. The patient seems agitated and is writhing around in bed. She was covered in stool and urine. EMS administered benzodiazepines without significant improvement. The patient herself reports pain everywhere but otherwise is unsure of the cause of her symptoms. Intensity is moderate to severe. No other specific changes in health, exacerbating, or alleviating factors identified. Onset (ago): unknown Severity: severe Consistency of symptoms: Unknown Review of Systems General: Reports: 10 or more systems reviewed and unremarkable except in HPI and below PFSH ED PFSH: Medical History Acute renal failure Acute respiratory failure with hypoxemia Adjustment insomnia AMS (altered mental status) Anxiety about health Bilateral lower extremity edema Chronic back pain CKD (chronic kidney disease) stage 3, GFR 30-59 ml/min COVID-19 Depression determined by examination Hyperlipidemia Hypothyroidism Iron deficiency anemia Lung nodule, solitary Multifocal pneumonia Prediabetes Rheumatoid arthritis Sepsis Social History Smoking and tobacco status: former smoker Alcohol intake: current Alcohol intake frequency: holidays/special occasions only Physical Exam Const: COMMON NORMALS: alert GENERAL APPEARANCE: cooperative and well developed HENMT: COMMON NORMALS: normocephalic and atraumatic HEAD & SCALP: n ormocephalic and atraumatic Eye: COMMON NORMALS: conjunctivae normal CONJUNCTIVA: Yes conjunctivae normal SCLERA: sclerae normal Neck/C-Spine: COMMON NORMALS: supple GENERAL: Yes trachea midline Resp: COMMON NORMALS: normal respiratory effort EFFORT & INSPECTION: Yes able to speak in complete sentences Cardio: COMMON NORMALS: regular rate and regular rhythm RATE: regular rate RHYTHM: regular rhythm GI: COMMON NORMALS: Soft to palpation PALPATION: Yes Soft to palpation and No Tenderness to palpation present (GI) PERCUSSION: normal to percussion Extremity: GENERAL: Yes normal exam except as noted and No edema Neuro: COMMON NORMALS: moves all extremities SENSORIUM/ORIENTATION: Yes alert and No Orientation impaired OTHER: Akathisia type movements Psych: COMMON NORMALS: mental status grossly normal and Normal thought process present THOUGHT PROCESS: Normal thought process present Course Vital Signs: Vital signs: Vital Signs Temperature 98.5 F 06/24/22 00:51 Pulse Rate 78 06/23/22 23:55 Respiratory Rate 19 H 06/23/22 23:55 Blood Pressure 96/52 06/23/22 23:55 Pulse Oximetry 93 06/23/22 23:55 Oxygen Delivery Me thod 06/23/22 23:37 MDM - Altered Mental Status Medical Decision Making 67-year-old lady with complex history including recent hospitalization presen ting for mental status change with questionable seizure like activity. Patient has nonfocal neurologic exam however does appear clinically abnormal with abnormal writhing motions. I do not appreciate any sort of rigidity. She reports that this is due to pain however appearance is certainly atypical. Labs notable for mild leukocytosis, near baseline microcytic anemia, normal platelet count. Metabolic panel with perhaps mild evidence of dehydration with hypokalemia and hypomagnesemia. Negative range 2-hour delta troponin. Urinalysis not concerning for urinary tract infection. Toxic ingestions are negative. UDS positive for THC and opioids. Chest x-ray improved from prior with no lobar consolidation or pneumothorax. Head CT negative for acute intracranial pathology. Initially attempted to treat the patient with benztropine as she has a diphenhydramine allergy listed. This did not improve symptoms particularly. Fentanyl had mild improvement and morphine had no improvement. Additional dose of fentanyl and low-dose haloperidol resulted in patient resting comfortably. In her sleep she does not have any abnormal movements. Most likely etiology of patient's symptoms is unclear however given lack of etiology identified on ED evaluation I believe the patient is appropriate for inpatient observation with possibility of adverse medication reaction being etiology of symptoms. The results of ED evaluation were discussed with the patient including plan for admission due to requirement for level of care not available if discharged to prevent significant worsening/deterioration. Patient agreeable with plan. Discussed with hospitalist service who was agreeable to admit patient. Medical Records I reviewed the patient's medical records. Lab Data I reviewed the patient's lab results. 06/23/22 19:17 06/23/22 19:17 Radiology Impressions Chest X-Ray 06/23/22 19:05 IMPRESSION: 1. No acute cardiopulmonary process. 2. Incidental/nonacute findings are listed in the report. Head CT 06/23/22 19:05 IMPRESSION: No acute intracranial abnormality. Laboratory Results WBC 14.2 10^3/uL (4.0-10.0) H 06/23/22 19:17 RBC 4.50 10^6/uL (4.1-5.3) 06/23/22 19:17 Hgb 10.5 g/dL (11.5-15.3) L 06/23/22 19:17 Hct 33.9 % (37.0-47.0) L 06/23/22 19:17 MCV 75.3 fl (81-99) L 06/23/22 19:17 MCH 23.3 pg (28.0-34.0) L 06/23/22 19:17 MCHC 31.0 g/dL (30.0-36.0) 06/23/22 19:17 RDW 17.9 % (12.1-15.1) H 06/23/22 19:17 Plt Count 369 10^3/cmm (130-400) 06/23/22 19:17 MPV 9.6 fL (7.4-10.4) 06/23/22 19:17 Neut % (Auto) 78.2 % 06/23/22 19:17 Lymph % (Auto) 9.5 % 06/23/22 19:17 [place] % (Auto) 8.7 % 06/23/22 19:17 Eos % (Auto) 1.1 % 06/23/22 19:17 Baso % (Auto) 0.1 % 06/23/22 19:17 Neut # (Auto) 11.08 10^3/uL (1.8-7.7) H 06/23/22 19:17 Lymph # (Auto) 1.4 10^3/uL (0.8-4.8) 06/23/22 19:17 [place] # (Auto) 1.2 10^3/uL (0.2-0.9) H 06/23/22 19:17 Eos # (Auto) 0.2 10^3/uL (0.0-0.8) 06/23/22 19:17 Baso # (Auto) 0.0 10^3/uL (0.0-0.1) 06/23/22 19:17 Nucleated RBC % (auto) 0 % 06/23/22 19:17 Nucleated RBCs # 0.0 /100WBC 06/23/22 19:17 Sodium 137 mmol/L (136-145) 06/23/22 19:17 Potassium 3.3 mmol/L (3.5-5.1) L 06/23/22 19:17 Chloride 96 mmol/L (98-107) L 06/23/22 19:17 Carbon Dioxide 25 mmol/L (22-29) 06/23/22 19:17 Anion Gap 19.3 (5-19) H 06/23/22 19:17 BUN 25 mg/dL (8-23) H 06/23/22 19:17 Creatinine 1.3 mg/dL (0.5-0.9) H 06/23/22 19:17 GFR Calculation 40.7 mL/min (90-130) L 06/23/22 19:17 Glucose 94 mg/dL (65-115) 06/23/22 19:17 Calculated Osmolality 288 mOsm/kg (285-295) 06/23/22 19:17 Calcium 9.1 mg/dL (8.5-10.5) 06/23/22 19:17 Magnesium 1.6 mg/dL (1.7-2.3) L 06/23/22 19:53 Total Bilirubin 0.4 mg/dL (0.15-1.2) 06/23/22 19:17 AST 14 U/L (0-32) 06/23/22 19:17 ALT 14 U/L (0-33) 06/23/22 19:17 Alkaline Phosphatase 129 U/L (35-105) H 06/23/22 19:17 Troponin T Baseline 16 ng/L (0-10) H 06/23/22 19:53 Troponin T 120 Minute 14.87 ng/L (0-10) H 06/23/22 22:00 Delta Troponin T -1.13 ABS# (0-10) L 06/23/22 22:00 Total Protein 7.2 g/dL (6.6-8.7) 06/23/22 19:17 Albumin 3.7 g/dL (3.5-5.2) 06/23/22 19:17 Globulin 3.5 g/dL (1.3-4.6) 06/23/22 19:17 TSH 1.19 uIU/mL (0.27-4.20) 06/23/22 19:17 Urine Color Yellow (Yellow) 06/23/22 20:54 Urine Appearance Clear (CLEAR) 06/23/22 20:54 Urine pH 6 (5-7) 06/23/22 20:54 Ur Specific [place] 1.010 (1.005-1.030) 06/23/22 20:54 Urine Protein Neg (Negative) 06/23/22 20:54 Urine Glucose (UA) Norm (Normal) 06/23/22 20:54 Urine Ketones Negative (Negative) 06/23/22 20:54 Urine Blood Neg (Negative) 06/23/22 20:54 Urine Nitrate Negative (Negative) 06/23/22 20:54 Urine Bilirubin Neg (Negative) 06/23/22 20:54 Urine Urobilinogen Norm mg/dL (Negative) 06/23/22 20:54 Ur Leukocyte Esterase Negative (Negative) 06/23/22 20:54 Salicylates < 0.3 mg/dL (3-10) L 06/23/22 19:17 Urine Opiates Screen Positive ng/mL (Negative) H 06/23/22 20:54 Acetaminophen < 5.0 ug/mL (10-30) L 06/23/22 19:17 Ur Barbiturates Screen Negative ng/mL (Negative) 06/23/22 20:54 Ur Phencyclidine Scrn Negative ng/mL (Negative) 06/23/22 20:54 Ur Amphetamines Screen Negative ng/mL (Negative) 06/23/22 20:54 U Benzodiazepines Scrn Negative ng/mL (Negative) 06/23/22 20:54 Urine Cocaine Screen Negative ng/mL (Negative) 06/23/22 20:54 U Marijuana (THC) Screen Positive ng/mL (Negative) H 06/23/22 20:54 Ethyl Alcohol < 10 mg/dL (0-10) 06/23/22 19:17 Discharge Plan Discharge Patient Disposition: Placed in Observation Admit Provider: Perico Gonzalez Clinical Impression: Altered mental status, Abnormal movements Coding Level of Care Code ED Photo Mask Processor for Maribel Sweet
--- NOTE | 2022-06-23 19:04 | ECG_ITS ---
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[id number] Requested By: Matty Ding Order Number: [id number] Reading MD: TESSA AZEVEDO Measurements Intervals [place] Rate: 76 P: 62 KS: 150 QRS: 15 QRSD: 90 T: 34 QT: 422 QTc: 476 Interpretive Statements SINUS RHYTHM WITH OCCASIONAL SUPRAVENTRICULAR PREMATURE COMPLEXES POSSIBLE LEFT ATRIAL ENLARGEMENT [-0.1mV P-WAVE IN V1/V2] LOW QRS VOLTAGE IN PRECORDIAL LEADS [QRS DEFLECTION < 1.0 mV IN CHEST LEADS] MINIMAL ST DEPRESSION [0.025+ mV ST DEPRESSION] Compared to ECG 06/19/2022 08:55:11 ST (T wave) deviation now present Electronically Signed On 06-24-2022 20:32:32 CDT by TESSA AZEVEDO [email or web address]
--- NOTE | 2022-06-23 19:05 | XRR_ITS ---
PROCEDURE INFORMATION: Exam: XR Chest Exam date and time: 06/23/2022 7:12 PM Age: 67 years old Clinical indication: Other: AMS TECHNIQUE: Imaging protocol: Radiologic exam of the chest. Views: 1 view. COMPARISON: CR XR chest 1V portable [id number] 06/19/2022 3:36 PM FINDINGS: Lungs: Lungs are clear bilaterally. Pleural spaces: No pleural effusion. No pneumothorax. Heart/Mediastinum: Stable moderate enlargement of the cardiac silhouette. Mediastinal contours are unremarkable. Vasculature: Stable vascular calcifications in the aorta. Bones/joints: Unremarkable for age. XR/XR chest 1V portable [id number] IMPRESSION: 1. No acute cardiopulmonary process. 2. Incidental/nonacute findings are listed in the report.
--- NOTE | 2022-06-23 19:05 | CTR_ITS ---
PROCEDURE INFORMATION: Exam: CT Head Without Contrast Exam date and time: 06/23/2022 8:42 PM Age: 67 years old Clinical indication: Altered mental status/memory loss; Confusion or disorientation; Additional info: AMS TECHNIQUE: Imaging protocol: Computed tomography of the head without contrast. Radiation optimization: All CT scans at this facility use at least one of these dose optimization techniques: automated exposure control; mA and/or kV adjustment per patient size (includes targeted exams where dose is matched to clinical indication); or iterative reconstruction. REPORTING DATA: Count of CT and Cardiac NM exams in prior 12 months: This patient has received 4 known CTs and 0 known cardiac nuclear medicine studies in the 12 months prior to the current study. COMPARISON: 1. CT head wo con* [id number] 2022-06-20 13:[address] head wo con* [id number] 2022-06-17 15:06 RADIATION DOSE METRICS: Total DLP (mGy-cm): 725.68 FINDINGS: Brain: Normal. No hemorrhage. Unremarkable white matter. No mass effect. Cerebral ventricles: No ventriculomegaly. Paranasal sinuses: Visualized sinuses are unremarkable. No fluid levels. Mastoid air cells: Visualized mastoid air cells are well aerated. Bones/joints: Unremarkable. No acute fracture. Soft tissues: Unremarkable. CT/CT head wo con* [id number] IMPRESSION: No acute intracranial abnormality.
[2022-06-23] MEDS: benztropine 1 mg/mL SDV 2 mL IM (19:17)
[2022-06-23] MEDS: fentaNYL 50 mcg/mL INJ 2mL 25 MCG IVP (19:51)
[2022-06-23 20:06] LABS: Basophils % 0.1 %; Eosinophils # 0.2 10^3/uL (0.0-0.8); Eosinophils % 1.1 %; Hematocrit 33.9 % (37.0-47.0); Hemoglobin 10.5 g/dL (11.5-15.3); Lymphocytes # 1.4 10^3/uL (0.8-4.8); Lymphocytes % 9.5 %; Mean Corpuscular Hemoglobin 23.3 pg (28.0-34.0); Mean Corpuscular Volume 75.3 fl (81-99); Mean Platelet Volume 9.6 fL (7.4-10.4); Monocytes # 1.2 10^3/uL (0.2-0.9); Monocytes % 8.7 %; Neutrophils # 11.08 10^3/uL (1.8-7.7); Neutrophils % 78.2 %; Nucleated Red Blood Cells % 0 %; Platelet Count 369 10^3/cmm (130-400); Red Cell Distribution Width 17.9 % (12.1-15.1); White Blood Count 14.2 10^3/uL (4.0-10.0)
[2022-06-23 20:27] LABS: Troponin(5th) Baseline 16 ng/L (0-10)
[2022-06-23 20:34] LABS: Alanine Aminotransferase 14 U/L (0-33); Albumin Level 3.7 g/dL (3.5-5.2); Alkaline Phosphatase 129 U/L (35-105); Anion Gap 19.3 (5-19); Aspartate Amino Transferase 14 U/L (0-32); Blood Urea Nitrogen 25 mg/dL (8-23); Calcium 9.1 mg/dL (8.5-10.5); Carbon Dioxide 25 mmol/L (22-29); Chloride 96 mmol/L (98-107); Globulin 3.5 g/dL (1.3-4.6); Glomerular Filtration Rate 40.7 mL/min (90-130); Glucose 94 mg/dL (65-115); Osmolality Calculated 288 mOsm/kg (285-295); Potassium 3.3 mmol/L (3.5-5.1); Sodium 137 mmol/L (136-145); Thyroid Stimulating Hormone 1.19 uIU/mL (0.27-4.20); Total Bilirubin 0.4 mg/dL (0.15-1.2); Total Protein 7.2 g/dL (6.6-8.7)
[2022-06-23 20:37] LABS: Acetaminophen < 5.0 ug/mL (10-30); Alcohol Level < 10 mg/dL (0-10); Salicylate < 0.3 mg/dL (3-10)
[2022-06-23] MEDS: morphine 4 mg/mL SDV 1 mL IVP (20:48)
[2022-06-23 20:59] LABS: Add Urine Microscopic? NO; Charge for UA Resulting for Rev
[2022-06-23 21:02] LABS: Bilirubin Urine Neg (Negative); Blood Urine Neg (Negative); Glucose Urine UA Norm (Normal); Ketones Urine Negative (Negative); Leukocyte Esterase Urine Negative (Negative); Nitrate Urine Negative (Negative); Protein Urine Neg (Negative); Urine Appearance Clear (CLEAR); Urine Color Yellow (Yellow); Urobilinogen Urine Norm (Negative); pH Urine 6 (5-7)
[2022-06-23 21:06] LABS: Magnesium 1.6 mg/dL (1.7-2.3)
[2022-06-23 21:14] LABS: Amphetamines Screen Urine Negative (Negative); Barbiturates Screen Urine Negative (Negative); Benzodiazepines Screen Urine Negative (Negative); Cocaine Screen Urine Negative (Negative); Opiate Screen Urine Positive (Negative); PCP Screen Urine Negative (Negative); THC Screen Urine Positive (Negative)
[2022-06-23] MEDS: haloperidol inj 5 mg/mL INJ 1 mL 1 MG IVP (21:36)
[2022-06-23] MEDS: fentaNYL 50 mcg/mL INJ 2mL IVP (21:36)
[2022-06-23] MEDS: magnesium sulfate premix 2 GM/50 ML PIGGYBACK IV (21:36)
[2022-06-23] MEDS: potassium chloride ER 20 mEq Tablet 40 MEQ PO (21:57)
[2022-06-23 22:44] LABS: Troponin 5 2HR 14.87 ng/L (0-10)
[2022-06-23 22:47] LABS: Troponin 5 2HR Delta -1.13 ABS# (0-10)
--- NOTE | 2022-06-23 23:08 | PC.NURSE ---
REPORT TAKEN FROM . PT RESTING IN BED WITH EYES CLOSED EVEN RESPIRATIONS. SITTER AT BEDSIDE.
--- NOTE | 2022-06-23 23:33 | PC.NURSE ---
REPORT CALLED TO FRANCHESCA ON MED SURG.
[2022-06-24] VITALS (11 sets, daily range): BP systolic 93–112; BP diastolic 56–68; PULSE 57–92; RESP 15–19; TEMP 36.7–37.6; O2SAT 93–97
--- NOTE | 2022-06-24 00:29 | PC.NURSE ---
Shortly after patient arrived to the floor, patient noted to have brown colored secretions on pillow by mouth. Upon further assessment, it appeared to be coffee ground secretions in mouth. Patient's suctioned. Dr. Gonzalez notified.
[2022-06-24] MEDS: pantoprazole 40 mg SDV IVP ×2 (00:37→11:38)
--- NOTE | 2022-06-24 00:48 | PC.NURSE ---
Dr. Gonzalez notified that patient's lung sounds very course. Ordered to keep patient NPO.
--- NOTE | 2022-06-24 01:04 | ECG_ITS ---
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[id number] Requested By: Matty Ding Order Number: [id number] Reading MD: TESSA AZEVEDO Measurements Intervals [place] Rate: 61 P: 60 LA: 162 QRS: 54 QRSD: 85 T: 69 QT: 444 QTc: 449 Interpretive Statements SINUS RHYTHM POSSIBLE LEFT ATRIAL ENLARGEMENT [-0.1mV P-WAVE IN V1/V2] NONSPECIFIC ST & T-WAVE ABNORMALITY Compared to ECG 06/23/2022 21:52:25 T-wave abnormality now present ST (T wave) deviation no longer present Electronically Signed On 06-24-2022 20:33:22 CDT by TESSA AZEVEDO [id number]
[2022-06-24] MEDS: fluconazole premix 200 MG/100 ML PREMIX 100 MG IV (01:18)
--- NOTE | 2022-06-24 01:28 | P.HP_ITS ---
Providers/Chief Complaint Admitting Physician: Perico Gonzalez Primary Care Provider: Kaisre Lisa MD Chief Complaint: AMS History of Present Illness 67-year-old lady recently admitted and treated for sepsis, pneumonia, received treatment with antibiotics and steroids, discharged on Levaquin, Augmentin, prednisone taper, was brought into ER for evaluation due to finding of alt eration of mental status, initially concern for possible seizure-like activity, but on finding the patient she was noted confused, agitated, writhing around in bed, covered in stool and urine. She received benzodiazepines in route. In ER reported found without any focal deficits, no seizure-like activity. Without meningeal signs. Additionally received benztropine at first, but without improvement, subsequently also received Haldol, as well as morphine and fentanyl. Subsequently sleeping. Currently moves around spontaneously in bed to voice, shoulder touch. Unable to provide any history or cooperate with exam. She is afebrile. Noted persistent leukocytosis 14.2. Received replacement for mild hypokalemia, and hypomagnesemia. Noted BUN 25, creatinine 1.3. Baseline troponin 16, 2-hour troponin 14.87. TSH 1.19. Liver parameters unremarkable apart from mild elevation of alk phos 129 although this does not appear new. Urine tox screen positive for opiates but also marijuana. CT head without acute abnormality. Chest x-ray with lungs clear bilaterally, stable moderate enlargement of cardiac silhouette. Stable vascular calcification in aorta. Review of Systems General: Reports: ROS unobtainable due to mental status Medications/Allergies Home Medications Medication Instructions Recorded Confirmed Last Taken Type ondansetron HCl 4 mg tablet 4 mg PO DAILY PRN Nausea And 04/13/22 06/22/22 Unknown History Vomiting potassium chloride 10 mEq 10 meq PO BID PRN unknown 04/13/22 06/22/22 Unknown History tablet,extended release aspirin 81 mg chewable tablet 162 mg PO DAILY 30 days #30 tabs 04/15/22 06/22/22 06/16/22 Rx dexlansoprazole 30 mg 30 mg PO DAILY #90 caps 04/22/22 06/24/22 06/16/22 Rx capsule,biphase delayed release (Dexilant) albuterol sulfate 90 mcg/actuation 1 inh inhalation Q6H PRN shortness 04/27/22 06/22/22 Unknown Rx aerosol inhaler (Proventil HFA) of breath or wheezing #6.7 grams gabapentin 300 mg capsule 300 mg PO TID chronic pain #90 caps 04/27/22 06/24/22 06/16/22 Rx levothyroxine 112 mcg tablet 112 mcg PO QAM low thyroid #90 tabs 04/27/22 06/24/22 06/16/22 Rx clonazepam 1 mg tablet 1 mg PO DAILY PRN Anxiety/sleep 30 05/04/22 06/24/22 06/16/22 Rx days #30 tabs oxycodone 5 mg tablet 5 mg PO TID PRN pain 30 days #90 05/29/22 06/24/22 Unknown Rx tabs fluoxetine 40 mg capsule 40 mg PO DAILY PRN mood 06/17/22 06/22/22 Unknown History furosemide 40 mg tablet (Lasix) 40 mg PO DAILY PRN edema 06/17/22 06/24/22 Unknown History latanoprost 0.005 % eye drops 1 drp ophthalmic (eye) QPM 06/17/22 06/22/22 Unknown History amlodipine 10 mg tablet 10 mg PO DAILY #30 tabs 06/21/22 06/24/22 Unknown Rx amoxicillin 875 mg-potassium 1 tab PO Q12H #10 tabs 06/21/22 06/24/22 Unknown Rx clavulanate 125 mg tablet ferrous gluconate 324 mg (37.5 mg 324 mg PO BIDWM #60 tabs 06/21/22 06/22/22 Unknown Rx iron) tablet hydrochlorothiazide 12.5 mg tablet 12.5 mg PO DAILY #30 tabs 06/21/22 06/24/22 Unknown Rx nystatin 100,000 unit/mL oral 1 ml PO QID 14 days #56 mL 06/21/22 06/24/22 Unknown Rx suspension prednisone 10 mg tablet See Taper PO DIRECTED #30 tabs 06/21/22 06/22/22 Unknown Rx tizanidine 4 mg capsule 4 mg PO Q8H PRN muscle spasticity 06/23/22 06/24/22 Unknown Rx #270 caps baclofen 10 mg tablet 10 mg PO BID PRN Muscle Spasm 06/24/22 06/24/22 Unknown History levofloxacin 750 mg tablet 750 mg PO DAILY 06/24/22 06/24/22 Unknown History ropinirole 5 mg tablet 5 mg PO TID 06/24/22 06/24/22 Unknown History Allergies Allergy/AdvReac Type Severity Reaction Status Date / Time amitriptyline Allergy ADR-Agitate Verified 06/17/22 13:35 d diphenhydramine Allergy ADR-Agitate Verified 06/17/22 13:35 [From Benadryl] d PFSH Acute PFSH: Medical History Acute renal failure Acute respiratory failure with hypoxemia Adjustment insomnia AMS (altered mental status) Anxiety about health Bilateral lower extremity edema Chronic back pain CKD (chronic kidney disease) stage 3, GFR 30-59 ml/min COVID-19 Depression determined by examination Hyperlipidemia Hypothyroidism Iron deficiency anemia Lung nodule, solitary Multifocal pneumonia Prediabetes Rheumatoid arthritis Sepsis Social History Smoking and tobacco status: former smoker Alcohol intake: current Alcohol intake frequency: holidays/special occasions only Vitals/I&O/Wt Last Vital Signs Temp 98.5 F 06/24/22 00:51 Pulse 78 06/23/22 23:55 Resp 19 H 06/23/22 23:55 BP 96/52 06/23/22 23:55 Pulse Ox 93 06/23/22 23:55 O2 Del Method 06/23/22 23:37 06/23/22 06/23/22 06/24/22 14:59 22:59 06:59 Intake Total 50 / 50 Balance 50 / 50 Weight last 48 hrs Weight 64.093 kg Weight 68.039 kg Physical Exam Const: COMMON NORMALS: negative for patient oriented x3 and negative for alert GENERAL APPEARANCE: not cooperative ORIENTATION/CONSCIOUSNESS: Yes confused and Yes lethargic HENMT: COMMON NORMALS: oropharynx normal Eye: OTHER: Pupils symmetric Neck/C-Spine: COMMON NORMALS: no JVD Resp: COMMON NORMALS: normal respiratory effort and clear to auscultation bilaterally AUSCULTATION: clear to auscultation bilaterally Cardio: COMMON NORMALS: no JVD, regular rhythm, S1 normal heart sound present, S2 normal heart sound present and No murmurs present (Cardio) RHYTHM: regular rhythm HEART SOUNDS: S1 normal heart sound present and S2 normal heart sound present GI: COMMON NORMALS: Normal to inspection, nondistended, normoactive bowel yamila nds present, Soft to palpation and non-tender PALPATION: Yes Soft to palp ation Extremity: COMMON NORMALS: no joint enlargement and no pedal edema Neuro: COMMON NORMALS: patient oriented x3 and moves all extremities SENSORIUM/ORIENTATION: Yes alert OTHER: No rigidity. No myoclonus. Skin: COMMON NORMALS: no rashes or lesions noted GENERAL SKIN EXAM: no rashes or lesions noted Data 06/23/22 19:17 06/23/22 19:17 A&P Assessment and plan (1) Acute encephalopathy: Acute encephalopathy, unclear etiology, suspected toxic encephalopathy possibly secondary to medications, is on ropinirole, tizanidine and baclofen at home, currently also with ZAHRA. Additionally could be steroid-induced psychosis. Additionally U tox tested positive for marijuana, unclear if could be some unintended admixture that could be contributing to this. At home patient is also on Klonopin as well as gabapentin. Oxycodone. Currently hold medications that may be contributing. Please review medications once her condition improves, consider tapering off nonessential medications due to significant polypharmacy with a number of high risk medications. Stop steroid. One-to-one sitter. Continuous pulse ox. NPO. Hold off additional meds patient's for now, she is currently with lethargy after Haldol, pain medications. Discussed with ER physician, history obtained from ER physician and records as she is unable to provide any history, no family at bedside, reviewed ER documentation. Reviewed prior admission summary documentation. Noted CT CT head without acute abnormality. TSH unremarkable. Sodium 137. Additionally recent pneumonia, and currently with possible additional asp iration. Empirically start Zosyn. Noted recent Kayley growth in sputum culture. Noted was discharged on nystatin swish and swallow, possibly secondary to thrush. For now Diflucan added empirically. (2) Aspiration into airway: Possible aspiration encephalopathy, have rhonchi. Continuous pulse ox. NPO. Empirically Zosyn. Chest x-ray clear, repeat imaging in the morning requested. (3) Coffee ground emesis: Noted some coffee-ground appearing secretions from her mouth by her nurse on medical surgical floor. Stop steroid. Add pantoprazole 40 mg IV every 12 hours. Follow-up hemoglobin requested. Hold aspirin for now. Possible upper GI bleeding. Follow blood counts. If otherwise recovering, consider further evaluation with endoscopy, timing may depend on her clinical condition course. (4) ZAHRA (acute kidney injury): Hold losartan. We will give gentle fluid challenge. Reassess renal function. (5) Hypokalemia: Received replacement. Follow-up potassium and magnesium levels. (6) Hypomagnesemia: Received replacement, follow-up magnesium level. (7) Abnormal toxicological findings: Marijuana on COVID-19 urine tox screen. If possible inadvertent administration, could be contributing to her current presentation. Plan Recent respiratory failure, pneumonia Given recent admission episode of bradycardia HTN: Hold antihypertensives for now as blood pressure soft. CKD Depression HLD Hypothyroidism SHAUNNA Prediabetes RA Other medical problems Attestations Medical Necessity Statement*: Admission of over 2 midnights is anticipated for assessment management of acute encephalopathy, possible aspiration, possible upper GI bleeding, ZAHRA, polypharmacy. Diagnoses Acute encephalopathy G93.40 Aspiration into airway T17.908A Coffee ground emesis K92.0 ZAHRA (acute kidney injury) N17.9 Hypokalemia E87.6 Hypomagnesemia E83.42 Abnormal toxicological findings R89.2
[2022-06-24 01:39] LABS: Troponin 5 6HR 14.45 ng/L (0-10)
[2022-06-24 01:40] LABS: Hemoglobin 10.3 g/dL (11.5-15.3); Troponin 5 6HR Delta -1.55 ng/L (0-12)
[2022-06-24] MEDS: piperacillin-tazobactam 3.375 GM in sodium chloride 0.9% (plus) 50 ML IV ×3 (03:05→20:28)
[2022-06-24 03:31] LABS: Creatine Phosphokinase 94 U/L (26-192)
[2022-06-24] MEDS: lactated ringers 1,000 ML 75 ML IV ×2 (04:16→18:53)
--- NOTE | 2022-06-24 04:50 | PC.NURSE ---
IV leaking and needs to be removed. IV fluids currently paused due to no IV access. IV access attempted by two RNs. ED nurse coming up to start US IV.
[2022-06-24 05:14] LABS: Basophils % 0.2 %; Eosinophils # 0.2 10^3/uL (0.0-0.8); Hematocrit 34.1 % (37.0-47.0); Hemoglobin 10.2 g/dL (11.5-15.3); Lymphocytes # 2.3 10^3/uL (0.8-4.8); Lymphocytes % 24.1 %; Mean Corpuscular HGB Conc 29.9 g/dL (30.0-36.0); Mean Corpuscular Hemoglobin 22.9 pg (28.0-34.0); Mean Corpuscular Volume 76.6 fl (81-99); Mean Platelet Volume 10.3 fL (7.4-10.4); Monocytes % 10.6 %; Neutrophils # 5.72 10^3/uL (1.8-7.7); Neutrophils % 60.2 %; Nucleated Red Blood Cells % 0 %; Platelet Count 373 10^3/cmm (130-400); Red Blood Count 4.45 10^6/uL (4.1-5.3); Red Cell Distribution Width 18.4 % (12.1-15.1); White Blood Count 9.5 10^3/uL (4.0-10.0)
[2022-06-24 05:36] LABS: Alanine Aminotransferase 15 U/L (0-33); Albumin Level 3.4 g/dL (3.5-5.2); Alkaline Phosphatase 117 U/L (35-105); Anion Gap 18.5 (5-19); Aspartate Amino Transferase 16 U/L (0-32); Blood Urea Nitrogen 22 mg/dL (8-23); Calcium 8.8 mg/dL (8.5-10.5); Carbon Dioxide 25 mmol/L (22-29); Chloride 103 mmol/L (98-107); Globulin 3.4 g/dL (1.3-4.6); Glomerular Filtration Rate 49.4 mL/min (90-130); Glucose 80 mg/dL (65-115); Osmolality Calculated 298 mOsm/kg (285-295); Potassium 3.5 mmol/L (3.5-5.1); Sodium 143 mmol/L (136-145); Total Bilirubin 0.4 mg/dL (0.15-1.2); Total Protein 6.8 g/dL (6.6-8.7)
--- NOTE | 2022-06-24 05:58 | PC.NURSE ---
Patient dry heaving and demanding pain medications. Charge nurse notified Dr. Gonzalez. Patient's US guided IV infiltrated. Patient currently does not have IV access. Patient refusing Zofran.
[2022-06-24] MEDS: morphine 4 mg/mL SDV 1 mL IM (06:57)
[2022-06-24] MEDS: ondansetron 2 mg/ML SDV 2 mL 4 MG IVP ×2 (08:31→22:07)
[2022-06-24] MEDS: LORazepam 2 mg/mL INJ 1 mL 0.5 MG IVP (10:01)
--- NOTE | 2022-06-24 10:51 | PM.MISC ---
Miscellaneous Note Note: Patient had a bradycardic event on this time her troponins are trending down Reviewed her medications She seems to have extrapyramidal symptoms We will give her diphenhydramine, Benadryl We will give her benzodiazepines Patient is very restless Choreoathetosis Abdomen soft Looks dehydrated Significant other at the bedside Currently on room air Patient complained of chest pain, troponins with negative delta EKG unremarkable Hemodynamically stable We will treat her for extrapyramidal symptoms, hold antipsychotics Will give Benadryl, benzodiazepines, diphenhydramine Patient is taking medical marijuana she is stating that her doctor in [place] prescribed marijuana for her Electrolytes: Replenished Possible aspiration pneumonia currently on antibiotics Patient is on room air, afebrile, might discontinue by tomorrow Start patient on mechanical soft diet
[2022-06-24] MEDS: gabapentin 300 mg Capsule PO ×2 (15:48→20:34)
[2022-06-24] MEDS: ropinirole 2 mg Tablet 4 MG PO (20:34)
[2022-06-24] MEDS: ropinirole 1 mg Tablet PO (20:34)
[2022-06-24] MEDS: oxyCODONE 5 mg IR Tab/Cap PO (21:48)
[2022-06-24] MEDS: baclofen 10 mg Tablet PO (21:59)
[2022-06-25] VITALS (9 sets, daily range): BP systolic 116–138; BP diastolic 65–73; PULSE 59–80; RESP 12–19; TEMP 36.7–37.2; O2SAT 93–98
[2022-06-25] MEDS: pantoprazole 40 mg SDV IVP (00:33)
[2022-06-25] MEDS: fluconazole premix 200 MG/100 ML PREMIX 100 MG IV (00:33)
[2022-06-25] MEDS: CLONazepam 1 mg Tablet PO (02:29)
[2022-06-25] MEDS: piperacillin-tazobactam 3.375 GM in sodium chloride 0.9% (plus) 50 ML IV (03:59)
[2022-06-25] MEDS: levothyroxine 112 mcg Tablet PO (05:37)
--- NOTE | 2022-06-25 05:45 | P.PN_ITS ---
Subjective Subjective: Patient still very anxious asking for dilaudid Vitals/I&O/Wt Last Vital Signs Temp 98.6 F 06/25/22 04:00 Pulse 65 06/25/22 04:00 Resp 17 06/25/22 04:00 BP 138/70 06/25/22 04:00 Pulse Ox 95 06/25/22 04:00 O2 Del Method 06/24/22 16:00 O2 Flow Rate 2 06/24/22 07:21 06/24/22 06/24/22 06/25/22 14:59 22:59 06:59 Intake Total 120 / 120 2009 270 / 2400 Output Total 1750 / 1750 Balance 120 / 120 260 / 380 270 / 650 Weight last 48 hrs Weight 67.631 kg Weight 64.093 kg Weight 68.039 kg Physical Exam Narrative: Patient is euvolemic On room air Hemodynamically stable Afebrile No signs of meningitis Nonfocal neuro exam S1, S2 Abdomen soft GCS 15 AOx3 Choreoathetoid movement Urinary Catheter Management: Brandt: Cath Placed During This Visit: yes Reason for Continuing Indwelling Catheter: Other Urinary Catheter Date of Insertion: 06/24/22 Data 06/24/22 04:24 06/24/22 04:24 A&P Assessment and plan (1) Abnormal toxicological findings: (2) Hypomagnesemia: (3) Hypokalemia: (4) ZAHRA (acute kidney injury): (5) Coffee ground emesis: (6) Aspiration into airway: (7) Acute encephalopathy: (8) Altered mental status: (9) Abnormal movements: (10) Prolonged QT interval: (11) Extrapyramidal and movement disorder: Plan 67-year-old female who was recently discharged from the hospital presented back with akathisia, metabolic encephalopathy, she was also on steroids, tested positive for marijuana patient is claiming she has been prescribed medical marijuana by a physician in [place], my suspicion is high for extrapyramidal symptoms, polypharmacy Extrapyramidal symptoms: She has been given Benadryl, diphenhydramine and antimuscarinic agents She has significant restless leg syndrome and requiring ropinirole 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 and use of dopaminergic agonist ropinirole Akathisia Benzodiazepines for now Metabolic encephalopathy: Resolved No signs of stroke Afebrile No signs of neuroleptic malignant syndrome Monitor QT interval Bradycardia on previous admission It was related to sinus node dysfunction due to sepsis She was diagnosed with pneumonia and was discharged on Levaquin She has history of rheumatoid arthritis finished methotrexate in the past Not on methotrexate because of chronic kidney disease anymore Only a couple of episode of bradycardia noted during this admission She has remained hemodynamically stable She contracted COVID-19 in April this year Polypharmacy with side effects Patient will need extensive discharge med rec Full code Cardiac diet DVT prophylaxis on board Attestations Medical Necessity Statement*: Continue hospitalization Diagnoses Abnormal toxicological findings R89.2 Hypomagnesemia E83.42 Hypokalemia E87.6 ZAHRA (acute kidney injury) N17.9 Coffee ground emesis K92.0 Aspiration into airway T17.908A Acute encephalopathy G93.40 Altered mental status R41.82 Abnormal movements R25.9 Prolonged QT interval R94.31 Extrapyramidal and movement disorder G25.9
[2022-06-25 07:08] LABS: Basophils % 0.3 %; Eosinophils # 0.5 10^3/uL (0.0-0.8); Eosinophils % 4.5 %; Hematocrit 33.6 % (37.0-47.0); Hemoglobin 10.4 g/dL (11.5-15.3); Lymphocytes # 2.3 10^3/uL (0.8-4.8); Lymphocytes % 23.3 %; Mean Corpuscular Hemoglobin 23.9 pg (28.0-34.0); Mean Corpuscular Volume 77.1 fl (81-99); Mean Platelet Volume 9.8 fL (7.4-10.4); Monocytes # 0.8 10^3/uL (0.2-0.9); Monocytes % 8.2 %; Neutrophils # 6.18 10^3/uL (1.8-7.7); Neutrophils % 62.2 %; Nucleated Red Blood Cells % 0 %; Platelet Count 382 10^3/cmm (130-400); Red Blood Count 4.36 10^6/uL (4.1-5.3); Red Cell Distribution Width 19.2 % (12.1-15.1)
[2022-06-25 07:27] LABS: Alanine Aminotransferase 16 U/L (0-33); Albumin Level 3.5 g/dL (3.5-5.2); Alkaline Phosphatase 107 U/L (35-105); Anion Gap 14.4 (5-19); Aspartate Amino Transferase 21 U/L (0-32); Blood Urea Nitrogen 19 mg/dL (8-23); Calcium 9.3 mg/dL (8.5-10.5); Carbon Dioxide 25 mmol/L (22-29); Chloride 103 mmol/L (98-107); Globulin 3.5 g/dL (1.3-4.6); Glomerular Filtration Rate 49.4 mL/min (90-130); Glucose 126 mg/dL (65-115); Magnesium 1.9 mg/dL (1.7-2.3); Osmolality Calculated 292 mOsm/kg (285-295); Potassium 3.4 mmol/L (3.5-5.1); Sodium 139 mmol/L (136-145); Total Bilirubin 0.3 mg/dL (0.15-1.2)
[2022-06-25] MEDS: ropinirole 2 mg Tablet 4 MG PO (07:59)
[2022-06-25] MEDS: gabapentin 300 mg Capsule PO ×3 (07:59→20:49)
[2022-06-25] MEDS: ropinirole 1 mg Tablet PO (07:59)
[2022-06-25] MEDS: oxyCODONE 5 mg IR Tab/Cap PO (07:59)
--- NOTE | 2022-06-25 10:26 | PC.CHAP ---
Pastoral Care Encounter/Spiritual Assessment Type of Contact [] Declined apprentice cosmetologist visit [] Patient/Family/Request visit [] Outpatient visit [] Follow-up visit [] Physician referral [] Code/Alert [x] Routine visit [] Staff referral [] Actively dying [] Patient sleeping [] Family support [] [] Out of room [] Palliative care [] [x] Receiving care in room [] Pre-surgical visit [] Trauma [] Long length of stay [] ICU visit [] Other: Relational/Emotional Strength [x] Patient feels connected with others/family/visitors/staff [] Distress [] Loneliness/isolation [] Abandonment Spirituality of Patient [x] Person of Shaina [] Attends Zoroastrianism of their Shaina [x] Believes in Prayer [] Reads Bible or Buddhist materials [] There are Spiritual issues to be addressed Lab Clerk Interventions [x] Prayer [x] Active listening [x] Non-anxious presence [x] Spiritual/emotional support [] Crisis/trauma care [x] Spiritual counseling [] Bereavement support [] Provided bereavement packet [] Provided Bible/devotional materials [] Provided toy/stuffed animal, coloring book to patient or family member [] Provided Communion [] Anointing/[place] [] Salvation [x] Completed spiritual assessment [] Other: Impact on Illness or Injury [] Angry [] Fearful [] Anxious [] Often cries [] Exhaustion [] Unable to work [] Unable to attend yazidism [] Unable to walk/stand [] Unable to read [] Unable to drive [] Unable to eat/drink [] Unable to sleep [] Unable to be with family [] Patient intubated [] Other: Summary senior kenney and heart Alia P is doing much better has a good attitude + 1 family well be going home Time spent with patient 10 mins
--- NOTE | 2022-06-25 13:37 | PC.NURSE ---
Patient insisted on sitting up in chair during bath. Patient left comfortable with call light and belongs with in their reach.
[2022-06-25] MEDS: LORazepam 2 mg/mL INJ 1 mL 1 MG IVP (17:13)
[2022-06-25] MEDS: ropinirole 2 mg Tablet 5 MG PO (20:49)
[2022-06-26 00:21] VITALS: BP 98/58; PULSE 64; RESP 19; TEMP 37.1; O2SAT 94
[2022-06-26] MEDS: pantoprazole 40 mg SDV IVP (00:47)
[2022-06-26] MEDS: LORazepam 2 mg/mL INJ 1 mL 1 MG IVP ×2 (01:12→08:23)
[2022-06-26 04:14] VITALS: BP 104/57; PULSE 60; RESP 19; TEMP 36.6; O2SAT 94
[2022-06-26 04:16] LABS: Basophils % 0.2 %; Eosinophils # 0.3 10^3/uL (0.0-0.8); Eosinophils % 3.3 %; Hematocrit 32.2 % (37.0-47.0); Hemoglobin 9.2 g/dL (11.5-15.3); Lymphocytes # 1.9 10^3/uL (0.8-4.8); Lymphocytes % 21.5 %; Mean Corpuscular HGB Conc 28.6 g/dL (30.0-36.0); Mean Corpuscular Hemoglobin 22.7 pg (28.0-34.0); Mean Corpuscular Volume 79.3 fl (81-99); Mean Platelet Volume 9.8 fL (7.4-10.4); Monocytes # 0.8 10^3/uL (0.2-0.9); Monocytes % 8.9 %; Neutrophils # 5.73 10^3/uL (1.8-7.7); Nucleated Red Blood Cells % 0 %; Platelet Count 338 10^3/cmm (130-400); Red Blood Count 4.06 10^6/uL (4.1-5.3); Red Cell Distribution Width 19.4 % (12.1-15.1); White Blood Count 8.8 10^3/uL (4.0-10.0)
[2022-06-26 04:37] LABS: Alanine Aminotransferase 13 U/L (0-33); Albumin Level 3.2 g/dL (3.5-5.2); Alkaline Phosphatase 90 U/L (35-105); Anion Gap 16.4 (5-19); Aspartate Amino Transferase 15 U/L (0-32); Blood Urea Nitrogen 11 mg/dL (8-23); Calcium 8.8 mg/dL (8.5-10.5); Carbon Dioxide 23 mmol/L (22-29); Chloride 104 mmol/L (98-107); Globulin 3.3 g/dL (1.3-4.6); Glomerular Filtration Rate 55.1 mL/min (90-130); Glucose 122 mg/dL (65-115); Osmolality Calculated 291 mOsm/kg (285-295); Potassium 3.4 mmol/L (3.5-5.1); Sodium 140 mmol/L (136-145); Total Bilirubin 0.4 mg/dL (0.15-1.2); Total Protein 6.5 g/dL (6.6-8.7)
[2022-06-26 04:52] VITALS: RESP 19; O2SAT 94
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
[2022-06-26 06:00] VITALS: PULSE 60
[2022-06-26] MEDS: levothyroxine 112 mcg Tablet PO (06:11)
[2022-06-26 08:00] VITALS: BP 118/69; PULSE 58; RESP 18; TEMP 36.6; O2SAT 93
[2022-06-26] MEDS: gabapentin 300 mg Capsule PO ×2 (08:23→14:20)
[2022-06-26 12:00] VITALS: BP 122/58; PULSE 64; RESP 18; TEMP 36.7; O2SAT 94
--- NOTE | 2022-06-26 13:00 | PM.DCS ---
Discharge Providers Date of Admission: 06/24/22 05:56 Date of Discharge: June 26, 2022 Attending Provider at Admission: Perico Gonzalez Attending Provider at Discharge: Bernard Ray MD Primary Care Provider: Kaiser Lisa MD Diagnoses at Discharge Discharge Diagnosis (1) Abnormal toxicological findings: Status: Acute (2) Hypomagnesemia: Status: Acute (3) Hypokalemia: Status: Acute (4) ZAHRA (acute kidney injury): Status: Acute (5) Coffee ground emesis: Status: Acute (6) Aspiration into airway: Status: Acute (7) Acute encephalopathy: Status: Acute (8) Altered mental status: Status: Acute (9) Abnormal movements: Status: Acute (10) Prolonged QT interval: Status: Acute (11) Extrapyramidal and movement disorder: Status: Acute Reason for Visit Reason for Visit: AMS Hospital Course Hospital Course 7-year-old lady recently admitted and treated for sepsis, pneumonia, received treatment with antibiotics and steroids, discharged on Levaquin, Augmentin, prednisone taper, was brought into ER for evaluation due to finding of alteration of mental status, initially concern for possible seizure-like activity, but on finding the patient she was noted confused, agitated, writhing around in bed, covered in stool and urine.? She received benzodiazepines in route.? In ER reported found without any focal deficits, no seizure-like activity.? Without meningeal signs.? Additionally received benztropine at first, but without improvement, subsequently also received Haldol, as well as morphine and fentanyl.? Subsequently sleeping.? Currently moves around spontaneously in bed to voice, shoulder touch.? Unable to provide any history or cooperate with exam. She is afebrile.? Noted persistent leukocytosis 14.2.? Received replacement for mild hypokalemia, and hypomagnesemia.? Noted BUN 25, creatinine 1.3. Baseline troponin 16, 2-hour troponin 14.87.? TSH 1.19.? Liver parameters unremarkable apart from mild elevation of alk phos 129 although this does not appear new.? Urine tox screen positive for opiates but also marijuana. CT head without acute abnormality. Chest x-ray with lungs clear bilaterally, stable moderate enlargement of cardiac silhouette.? Stable vascular calcification in aorta. Patient was admitted to [facility] for akathsia, metabolic encephalopathy, extraparametal symptoms, secondary to polypharmacy, altered mental status secondary polypharmacy. Her medications were adjusted here in the hospital, overall clinical condition improved, discharged home with close follow-up with primary care provider as outpatient In terms of her akathsia, overall her clinical condition improved, she tells me that her clonazepam does not help for her anxiety and sleep I have recommended against its use. She asked me if Ativan was an option as it worked here in the hospital, I strongly recommend against its use, due to polypharmacy, and morbidity and mortality associate with benzodiazepines. She voiced understanding, all questions answered, for now continue to monitor In terms of her medication doses, I have decreased her baclofen dose to 5 mg twice daily as needed for muscle spasms. She did admit, that her accidentally gave her tizanidine in addition to her baclofen. I have recommended for her to completely stop and discard tizanidine. In terms of her restless leg syndrome -I reviewed her blood work, her ferritin is low normal, and her iron levels are low -Likely iron deficiency anemia is the etiology behind her severe restless leg syndrome -I gave her a dose of IV iron here in the hospital -Continue p.o. iron as outpatient -However I am going to have her see hematology oncology as outpatient for consideration of IV iron replacement -In addition I will have her follow-up with general surgery for consideration of EGD and colonoscopy -Monitor for bloody or black stools, if so go to the emergency room -She has been hospitalized for multifocal pneumonia, sepsis, COVID this could be a reason why she is anemic, from bone marrow suppression but nonetheless follow-up with hematology oncology -She is on very high doses of ropinirole, 5 mg 3 times daily for restless leg syndrome, I advised her that the maximum daily dose for ropinirole for restless leg syndrome is 4 mg daily and that dose should be divided to minimize the risk of side effects and I have recommended against such a high dose use especially as she has been admitted for extraparametal symptoms, akathsia, and altered mental status second to polypharmacy. Due to her hospitalization I have decreased her dose of ropinirole to 1 mg nightly In terms of her pain control, she takes oxycodone 5 mg 3 times daily as needed, she was given 90 pills May 30, so she would be due for refill yesterday, she tells me that she only has 5 pills remaining, I am going to give her 4 days supply enough so that she can see pain management tomorrow. I have strongly advised her to use the medication as prescribed, do not drive or operate heavy machinery or drink taking medication, do not take with baclofen, or Requip, or any other medications, discussed morbidity and mortality associated with narcotic medications, she voiced understanding, all questions answered, agreed to proceed She had bradycardia during her last hospitalization, she had episodes of bradycardia in this hospitalization, asymptomatic, thought during her last hospitalization and secondary sinus node dysfunction, during this hospitalization likely secondary polypharmacy as above I have ordered an event monitor on discharge, follow-up with Dr. Greene I have been in detail going over all her medications with her -I have strongly implored her to not take any more medications than prescribed Physical Exam Const: COMMON NORMALS: no acute distress and patient oriented x3 Resp: COMMON NORMALS: normal respiratory effort, No retractions, No use of accessory muscles and clear to auscultation bilaterally AUSCULTATION: clear to auscultation bilaterally Cardio: COMMON NORMALS: regular rate, regular rhythm, S1 normal heart sound present and S2 normal heart sound present RATE: regular rate RHYTHM: regular rhythm HEART SOUNDS: S1 normal heart sound present and S2 normal heart sound present GI: COMMON NORMALS: Normal to inspection, nondistended, normoactive bowel sounds present and non-tender Extremity: COMMON NORMALS: no pedal edema Neuro: COMMON NORMALS: patient oriented x3 Psych: COMMON NORMALS: mental status grossly normal Urinary Catheter Management: Brandt: Cath Placed During This Visit: yes Reason for Continuing Indwelling Catheter: Other Urinary Catheter Date of Insertion: 06/24/22 Discharge Data Studies Completed and Pending Completed Studies During Hospitalization Category Date Time Status CT head wo con* [id number] Stat Cat Scan 06/23/22 19:05 Completed XR chest 1V portable [id number] Stat Exams 06/23/22 19:05 Completed Pending at discharge Category Date Time Status Complete Blood Count w/Auto AM LABS Lab 06/27/22 04:00 Ordered Comprehensive Metabolic Panel AM LABS Lab 06/27/22 04:00 Ordered Radiology Impressions Chest X-Ray 06/23/22 19:05 IMPRESSION: 1. No acute cardiopulmonary process. 2. Incidental/nonacute findings are listed in the report. Head CT 06/23/22 19:05 IMPRESSION: No acute intracranial abnormality. Laboratory Results WBC 8.8 10^3/uL (4.0-10.0) 06/26/22 03:59 RBC 4.06 10^6/uL (4.1-5.3) L 06/26/22 03:59 Hgb 9.2 g/dL (11.5-15.3) L 06/26/22 03:59 Hct 32.2 % (37.0-47.0) L 06/26/22 03:59 MCV 79.3 fl (81-99) L 06/26/22 03:59 MCH 22.7 pg (28.0-34.0) L 06/26/22 03:59 MCHC 28.6 g/dL (30.0-36.0) L D 06/26/22 03:59 RDW 19.4 % (12.1-15.1) H 06/26/22 03:59 Plt Count 338 10^3/cmm (130-400) 06/26/22 03:59 MPV 9.8 fL (7.4-10.4) 06/26/22 03:59 Neut % (Auto) 65.0 % 06/26/22 03:59 Lymph % (Auto) 21.5 % 06/26/22 03:59 [place] % (Auto) 8.9 % 06/26/22 03:59 Eos % (Auto) 3.3 % 06/26/22 03:59 Baso % (Auto) 0.2 % 06/26/22 03:59 Neut # (Auto) 5.73 10^3/uL (1.8-7.7) 06/26/22 03:59 Lymph # (Auto) 1.9 10^3/uL (0.8-4.8) 06/26/22 03:59 [place] # (Auto) 0.8 10^3/uL (0.2-0.9) 06/26/22 03:59 Eos # (Auto) 0.3 10^3/uL (0.0-0.8) 06/26/22 03:59 Baso # (Auto) 0.0 10^3/uL (0.0-0.1) 06/26/22 03:59 Nucleated RBC % (auto) 0 % 06/26/22 03:59 Nucleated RBCs # 0.0 /100WBC 06/26/22 03:59 Sodium 140 mmol/L (136-145) 06/26/22 03:59 Potassium 3.4 mmol/L (3.5-5.1) L 06/26/22 03:59 Chloride 104 mmol/L (98-107) 06/26/22 03:59 Carbon Dioxide 23 mmol/L (22-29) 06/26/22 03:59 Anion Gap 16.4 (5-19) 06/26/22 03:59 BUN 11 mg/dL (8-23) 06/26/22 03:59 Creatinine 1.0 mg/dL (0.5-0.9) H 06/26/22 03:59 GFR Calculation 55.1 mL/min (90-130) L 06/26/22 03:59 Glucose 122 mg/dL (65-115) H 06/26/22 03:59 Calculated Osmolality 291 mOsm/kg (285-295) 06/26/22 03:59 Calcium 8.8 mg/dL (8.5-10.5) 06/26/22 03:59 Magnesium 1.9 mg/dL (1.7-2.3) 06/25/22 06:38 Total Bilirubin 0.4 mg/dL (0.15-1.2) 06/26/22 03:59 AST 15 U/L (0-32) 06/26/22 03:59 ALT 13 U/L (0-33) 06/26/22 03:59 Alkaline Phosphatase 90 U/L (35-105) 06/26/22 03:59 Creatine Kinase 94 U/L (26-192) 06/24/22 01:17 Troponin T Baseline 16 ng/L (0-10) H 06/23/22 19:53 Troponin T 120 Minute 14.87 ng/L (0-10) H 06/23/22 22:00 Delta Troponin T -1.13 ABS# (0-10) L 06/23/22 22:00 Troponin T Hi Sens 6Hr 14.45 ng/L (0-10) H 06/24/22 01:17 Troponin T Hi Sens 6Hr Delta -1.55 ng/L (0-12) L 06/24/22 01:17 Total Protein 6.5 g/dL (6.6-8.7) L 06/26/22 03:59 Albumin 3.2 g/dL (3.5-5.2) L 06/26/22 03:59 Globulin 3.3 g/dL (1.3-4.6) 06/26/22 03:59 TSH 1.19 uIU/mL (0.27-4.20) 06/23/22 19:17 Urine Color Yellow (Yellow) 06/23/22 20:54 Urine Appearance Clear (CLEAR) 06/23/22 20:54 Urine pH 6 (5-7) 06/23/22 20:54 Ur Specific Stone 1.010 (1.005-1.030) 06/23/22 20:54 Urine Protein Neg (Negative) 06/23/22 20:54 Urine Glucose (UA) Norm (Normal) 06/23/22 20:54 Urine Ketones Negative (Negative) 06/23/22 20:54 Urine Blood Neg (Negative) 06/23/22 20:54 Urine Nitrate Negative (Negative) 06/23/22 20:54 Urine Bilirubin Neg (Negative) 06/23/22 20:54 Urine Urobilinogen Norm mg/dL (Negative) 06/23/22 20:54 Ur Leukocyte Esterase Negative (Negative) 06/23/22 20:54 Salicylates < 0.3 mg/dL (3-10) L 06/23/22 19:17 Urine Opiates Screen Positive ng/mL (Negative) H 06/23/22 20:54 Acetaminophen < 5.0 ug/mL (10-30) L 06/23/22 19:17 Ur Barbiturates Screen Negative ng/mL (Negative) 06/23/22 20:54 Ur Phencyclidine Scrn Negative ng/mL (Negative) 06/23/22 20:54 Ur Amphetamines Screen Negative ng/mL (Negative) 06/23/22 20:54 U Benzodiazepines Scrn Negative ng/mL (Negative) 06/23/22 20:54 Urine Cocaine Screen Negative ng/mL (Negative) 06/23/22 20:54 U Marijuana (THC) Screen Positive ng/mL (Negative) H 06/23/22 20:54 Ethyl Alcohol < 10 mg/dL (0-10) 06/23/22 19:17 Vitals Last Vital Signs Temp 98.0 F 06/26/22 12:00 Pulse 64 06/26/22 12:00 Resp 18 06/26/22 12:00 BP 122/58 06/26/22 12:00 Pulse Ox 94 06/26/22 12:00 O2 Del Method 06/26/22 12:00 O2 Flow Rate 2 06/24/22 07:21 Discharge Plan Discharge Patient Disposition: Home Health Service Condition: Stable Prescriptions: New ropinirole 1 mg tablet 1 mg PO .nightly 30 Days Qty: 30 0RF Continued Proventil HFA 90 mcg/actuation HFA aerosol inhaler 1 inh inhalation Q6H PRN (Reason: shortness of breath or wheezing) Qty: 6.7 5RF levothyroxine 112 mcg tablet 112 mcg PO QAM Qty: 90 1RF gabapentin 300 mg capsule 300 mg PO TID Qty: 90 5RF dexlansoprazole [Dexilant] 30 mg capsule,biphase delayed releas 30 mg PO DAILY Qty: 90 1RF latanoprost 0.005 % drops 1 drp ophthalmic (eye) QPM fluoxetine 40 mg capsule 40 mg PO DAILY PRN (Reason: mood) furosemide [Lasix] 40 mg tablet 40 mg PO DAILY PRN (Reason: edema) ferrous gluconate 324 mg (37.5 mg iron) Tablet 324 mg PO BIDWM Qty: 60 0RF hydrochlorothiazide 12.5 mg tablet 12.5 mg PO DAILY Qty: 30 0RF ondansetron HCl 4 mg Tablet 4 mg PO DAILY PRN (Reason: Nausea And Vomiting) potassium chloride 10 mEq Tablet Extended Release 10 meq PO BID PRN (Reason: unknown) Hold Instructions: Resume on 04/29/22. aspirin 81 mg Tablet,Chewable 162 mg PO DAILY 30 Days Qty: 30 2RF oxycodone 5 mg tablet 5 mg PO TID PRN (Reason: pain) 7 Days Qty: 21 0RF Rx Instructions: Refill on or after 30-day interval. Changed baclofen 10 mg Tablet 5 mg PO BID PRN (Reason: Muscle Spasm) 30 Days Qty: 30 0RF Discontinued clonazepam 1 mg tablet 1 mg PO DAILY PRN (Reason: Anxiety/sleep) 30 Days Qty: 30 3RF tizanidine 4 mg capsule 4 mg PO Q8H PRN (Reason: muscle spasticity) Qty: 270 1RF amlodipine 10 mg Tablet 10 mg PO DAILY Qty: 30 0RF amoxicillin-pot clavulanate 875-125 mg tablet 1 tab PO Q12H Qty: 10 0RF prednisone 10 mg tablet See Taper PO DIRECTED Qty: 30 0RF Taper: predniSONE 60-10 50 mg Daily for 2 Days and 0 Hour 40 mg Daily for 2 Days and 0 Hour 30 mg Daily for 2 Days and 0 Hour 20 mg Daily for 2 Days and 0 Hour 10 mg Daily for 2 Days and 0 Hour Rx Instructions: see taper instructions nystatin 100,000 unit/mL suspension 1 ml PO QID 14 Days Qty: 56 0RF Rx Instructions: swish and swallow for 14 days filled 12th levofloxacin 750 mg tablet 750 mg PO DAILY Rx Instructions: for 5 days filled 12th ropinirole 5 mg tablet 5 mg PO TID Discharge Orders: Discharge Order (Routine); Ordered 06/26/22 Ordered By: Bernard Ray Other Ambulatory Orders: MCT/Event Monitor 21 Days (Routine) Timeframe: 1 Day Facility: [facility] - Location: Radiology Ordered By: Bernard Ray Referrals: [facility] [place] Home Care ([facility]) [Outside] David Ruiz DO [Physician] - 1 month (colonoscopy for fe defeciency) Kaiser Lisa MD [Primary Care Provider] - 4-7 days Sherine Greene MD [Physician] - 7-10 days Ilda Stein MD [Staff Physician] - 2 weeks (fe defeciency, need iv iron,, due to severe rls) Discharge Diet: Cardiac Discharge Activity: Resume usual activity Patient Instructions: Opioid Safety Activity Restrictions/Additional Instructions: - Please take Requip as prescribed -Please take baclofen as prescribed -Please use oxycodone sparingly -Please follow-up with general surgery for consideration of EGD and colonoscopy in 1 month -Please follow-up with hematology for consideration of IV iron infusions Discharge Attestations Time Spent in Discharge Care*: greater than 30 min Status at Discharge: Cognitive status at discharge: cognitively intact, Behavioral status at discharge: cooperative, Quality Metrics Clinical Quality Measures [ No reported AMI, CVA or VTE this stay] Coding Level of Care Code 77369 Total time (in minutes) for Discharge: 50 Diagnoses Abnormal toxicological findings R89.2 Hypomagnesemia E83.42 Hypokalemia E87.6 ZAHRA (acute kidney injury) N17.9 Coffee ground emesis K92.0 Aspiration into airway T17.908A Acute encephalopathy G93.40 Altered mental status R41.82 Abnormal movements R25.9 Prolonged QT interval R94.31 Extrapyramidal and movement disorder G25.9
--- NOTE | 2022-06-26 13:59 | PC.NURSE ---
Discharge delayed pending Iron transfusion then patient may dc.
--- NOTE | 2022-06-26 14:55 | PC.NURSE ---
Per Dr. Ray patient can discharge without receiving iron infusion d/t infiltrated IV.
== END 2022-06-26 15:30 | disposition home health service (06) | DRG 91 ==
LOC: ER 23:23 → MEDSURG 23:36
PROVIDERS: Admitting Provider Internal Medicine; Emergency Provider Emergency Medicine; PCP Family Medicine Adult Medicine; Visit Provider Family Medicine
DX: G92.8 Other toxic encephalopathy (principal); G93.41 Metabolic encephalopathy; N17.9 Acute kidney failure, unspecified; G25.71 Drug induced akathisia; Z87.01 Personal history of pneumonia (recurrent); E87.6 Hypokalemia; E83.42 Hypomagnesemia; F12.90 Cannabis use, unspecified, uncomplicated; Z79.891 Long term (current) use of opiate analgesic; G25.81 Restless legs syndrome; D50.9 Iron deficiency anemia, unspecified; Z86.16 Personal history of COVID-19; Z79.51 Long term (current) use of inhaled steroids; Z79.82 Long term (current) use of aspirin; F06.4 Anxiety disorder due to known physiological condition; E03.9 Hypothyroidism, unspecified; R94.31 Abnormal electrocardiogram [ECG] [EKG]; F32.A Depression, unspecified; E11.22 Type 2 diabetes mellitus with diabetic chronic kidney disease; I12.9 Hypertensive chronic kidney disease with stage 1 through stage 4 chronic kidney disease, or unspecified chronic kidney disease; N18.9 Chronic kidney disease, unspecified; F09 Unspecified mental disorder due to known physiological condition; T38.0X5A Adverse effect of glucocorticoids and synthetic analogues, initial encounter; Z87.891 Personal history of nicotine dependence; M06.9 Rheumatoid arthritis, unspecified
CPT/HCPCS: 36415; 51701; 51702; 70450; 71045; 80053; 80306; 80307; 81003; 82550; 83735; 84443; 84484; 85018; 85025; 93005; 96365; 96372; 96375; 96376; 99285; C9113; G0378; J0515; J1450; J1630; J2060; J2270; J2405; J2543; J3010; J3475; J7120

== ENCOUNTER → 2022-06-29 10:25 | Outpatient (BNVA) | payer MEDICARE, OTHER, SELFPAY | PROVIDERS: PCP Family Medicine Adult Medicine; Visit Provider Internal Medicine Rheumatology | DX: M05.79 Rheumatoid arthritis with rheumatoid factor of multiple sites without organ or systems involvement (principal); Z79.899 Other long term (current) drug therapy; M19.90 Unspecified osteoarthritis, unspecified site; Z71.85 Encounter for immunization safety counseling; D64.9 Anemia, unspecified | CPT/HCPCS: 73130; 73630; 99204; 99205 ==

== ENCOUNTER → 2022-07-02 08:26 | Outpatient (BNVA) | payer MEDICARE, OTHER, SELFPAY | PROVIDERS: PCP Family Medicine Adult Medicine; Visit Provider Physician Assistant | DX: M75.41 Impingement syndrome of right shoulder (principal); M25.511 Pain in right shoulder | CPT/HCPCS: 20610; 73030; 99213; J1100; J2795; J3301 ==

== ENCOUNTER → 2022-07-09 12:53 | Outpatient (BNVA) | payer MEDICARE, OTHER, SELFPAY | PROVIDERS: PCP Family Medicine Adult Medicine; Visit Provider Anesthesiology Pain Medicine | DX: M54.16 Radiculopathy, lumbar region (principal); M48.062 Spinal stenosis, lumbar region with neurogenic claudication | CPT/HCPCS: 64483; 64484; J1100; J3490 ==

== ENCOUNTER → 2022-07-13 08:05 | Outpatient (BNVA) | payer MEDICARE, OTHER, SELFPAY | PROVIDERS: PCP Family Medicine Adult Medicine; Visit Provider Nurse Practitioner Family | DX: R00.1 Bradycardia, unspecified (principal) | CPT/HCPCS: 99213 ==

== ENCOUNTER 2022-07-22 06:56 | Outpatient (CLI) | payer MEDICARE, OTHER, SELFPAY ==
--- NOTE | 2022-07-22 07:11 | MR_ITS ---
WS: [id number] MRI CERVICAL SPINE NONCONTRAST HISTORY: M54.12 - Radiculopathy, cervical region COMPARISON: None available. Technique: Multiplanar, multisequence noncontrast imaging of the cervical spine. Very slight increase in cervical lordosis. Less than 2 mm retrolisthesis of C3. Disc spaces are narrowed throughout the cervical spine. Signal within the cord is normal. Craniocervical junction, C1 and C2 relationship, odontoid process and soft tissues are normal. C2-C3: Tiny central disc protrusion with no stenosis. C3-C4: Osteophytic ridging and mild facet arthritis. No disc protrusions. Osteophytes encroach upon t he ventral thecal sac. Moderate central and bilateral foraminal stenosis. C4-C5: Diffuse annular disc bulging with osteophytic ridging. There is a very small central disc prot rusion. Effacement of CSF resulting in moderate to severe central and RIGHT foraminal stenosis. Moder ate LEFT foraminal stenosis. Nerve root in the RIGHT foramen are being displaced posteriorly by osteo phyte disease. C5-C6: Diffuse mild annular disc bulging with osteophytic ridging. Mild facet joint arthritis. Modera te central with severe bilateral foraminal stenosis. C6-C7: Mild annular disc bulge and osteophytic ridging. Mild facet arthritis. Mild central with moder ate to severe bilateral foraminal stenosis. C7-T1: Normal. There are additional small disc protrusions and osteophytes at T1-2 and T2-3 which do not contact the thoracic cord. MR/MR cervical spin wo con* [id number] IMPRESSION: 1. 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 2. Moderate central and bilateral foraminal stenosis at C3-4. 3. Severe central and RIGHT foraminal stenosis at C4-5 and moderate LEFT christopher inal stenosis. RIGHT nerve roots are being displaced by osteophytes. 4. Moderate central with severe bilateral foraminal stenosis at C5-6. 5. Mild central with moderate to severe bilateral foraminal stenosis at C6-7. 6. No myelomalacia identified.
== END 2022-07-22 06:57 | disposition home or self-care (01) ==
LOC: RAD 06:59
PROVIDERS: PCP Family Medicine Adult Medicine; Visit Provider Physician Assistant
DX: M54.12 Radiculopathy, cervical region (principal); M48.02 Spinal stenosis, cervical region
CPT/HCPCS: 72141

== ENCOUNTER 2022-07-27 00:46 | Emergency (ER) | payer MEDICARE, OTHER, SELFPAY ==
[2022-07-27 00:48] VITALS: BP 122/75; PULSE 72; RESP 18; TEMP 36.3; O2SAT 96; BMI 21.9
--- NOTE | 2022-07-27 01:00 | CTR_ITS ---
PROCEDURE INFORMATION: Exam: CT Abdomen And Pelvis With Contrast Exam date and time: 07/27/2022 2:58 AM Age: 67 years old Clinical indication: Vomiting; Abdominal pain; Localized; Right; Prior surgery; Surgery date: 6+ months; Surgery type: Cholecystectomy, appendectomy, hysterectomy; Additional info: Abd pain, blood in emesis TECHNIQUE: Imaging protocol: Computed tomography of the abdomen and pelvis with contrast. Radiation optimization: All CT scans at this facility use at least one of these dose optimization techniques: automated exposure control; mA and/or kV adjustment per patient size (includes targeted exams where dose is matched to clinical indication); or iterative reconstruction. Contrast material: OMNI 350; Contrast volume: 75 ml; Contrast route: INTRAVENOUS (IV); REPORTING DATA: Count of CT and Cardiac NM exams in prior 12 months: This patient has received 5 known CTs and 0 known cardiac nuclear medicine studies in the 12 months prior to the current study. COMPARISON: [place] [id number] 04/13/2022 3:00 AM RADIATION DOSE METRICS: Total DLP (mGy-cm): 464.98 FINDINGS: Diaphragm: There is a small hiatal hernia present. Liver: Normal. No mass. Gallbladder and bile ducts: Status post cholecystectomy. Common bile duct is prominent measuring 14.5 mm in diameter is midportion tapering to normal caliber near the ampulla. Pancreas: Normal. No ductal dilation. Spleen: Normal. No splenomegaly. Adrenal glands: Normal. No mass. Kidneys and ureters: Normal. No hydronephrosis. Stomach and bowel: Unremarkable. No obstruction. No mucosal thickening. Appendix: Status post appendectomy. Intraperitoneal space: Unremarkable. No free air. No significant fluid collection. Vasculature: Unremarkable. No abdominal aortic aneurysm. Lymph nodes: Unremarkable. No enlarged lymph nodes. Urinary bladder: Unremarkable as visualized. Reproductive: Status post hysterectomy. Bones/joints: Severe loss of disc height is seen at the L2-L3 level with vacuum disc phenomenon present. There is posterior disc bulging seen left at this level. Status post vertebroplasty L4 and L5 vertebral bodies. Soft tissues: Unremarkable. CT/CT abdomen pelvis w con* [id number] IMPRESSION: 1. Small hiatal hernia 2. Prominent common bile duct measuring 14.5 mm in diameter is midportion likely compensatory to cholecystectomy.
--- NOTE | 2022-07-27 01:04 | ED_ITS ---
Documented by User: MALIK Kurtz 07/27/22 02:54 HPI - Abdominal Pain General: Chief Complaint: Abdominal Pain Stated Complaint: ABD Pain Time Seen by Provider: 07/27/22 01:00 History of Present Illness: 67-year-old female comes in today for complaints of some epigastric abdominal pain with 1 episode of emesis yesterday. Patient does have a history of recurrent abdominal pain. Patient appears nontoxic. Patient appears in mild to moderate pain. Patient did report a little bit of blood in her emesis yesterday. Patient reports that she has had a history of this before in the past. Patient has been scoped before in the past. Patient's had multiple abdominal surgeries with removal of her gallbladder, appendix, and and a hysterectomy, along with hernia repair and C-sections. Associated Symptoms: Reports constipation (Occasional), diarrhea (Occasional) and vomiting (X1); Denies fever(s) Review of Systems General: Reports: 10 or more systems reviewed and unremarkable except in HPI and below Const: Denies: fever(s) Eyes: Denies: change in vision ENMT: Denies: throat pain Card: Denies: chest pain Resp: Denies: dyspnea GI: Reports: abdominal pain, vomiting (X1), diarrhea (Occasional) and constipation (Occasional) Musc: Denies: extremity pain Skin/Breast: Denies: rash Neuro: Denies: headache(s) PFSH ED PFSH: Medical History Abnormal movements Abnormal toxicological findings Acute encephalopathy Acute renal failure Acute respiratory failure with hypoxemia Adjustment insomnia ZAHRA (acute kidney injury) Altered mental status AMS (altered mental status) Anemia Anxiety and depression Aspiration into airway Bilateral lower extremity edema Chronic back pain CKD (chronic kidney disease) stage 3, GFR 30-59 ml/min Coffee ground emesis COVID-19 Extrapyramidal and movement disorder High risk medication use Hyperlipidemia Hypokalemia Hypomagnesemia Hypothyroidism Immunization counseling Iron deficiency anemia Lung nodule, solitary Multifocal pneumonia Prediabetes Prolonged QT interval Rheumatoid arthritis Seropositive rheumatoid arthritis of multiple sites Substance or medication-induced sleep disorder, insomnia type Surgical History History of ankle surgery left History of appendectomy History of delivery History of cholecystectomy History of hysterectomy with bilateral oophorectomy Previous back surgery Social History Smoking and tobacco status: former smoker Alcohol intake: current Alcohol intake frequency: holidays/special occasions only Physical Exam Const: COMMON NORMALS: alert HENMT: COMMON NORMALS: normocephalic HEAD & SCALP: normocephalic Neck/C-Spine: COMMON NORMALS: full ROM Resp: COMMON NORMALS: normal respiratory effort and clear to auscultation bilaterally AUSCULTATION: clear to auscultation bilaterally Cardio: COMMON NORMALS: regular rate RATE: regular rate GI: COMMON NORMALS: Soft to palpation AUSCULTATION: Yes normoactive bowel sounds PALPATION: Yes Soft to palpation and Yes Tenderness to palpation present (GI) (Midepigastric) Extremity: COMMON NORMALS: full ROM Neuro: SENSORIUM/ORIENTATION: Yes alert Skin: COMMON NORMALS: turgor normal GENERAL SKIN EXAM: turgor normal Course ED course: 0255, patient reported some improvement of pain. Reviewed patient with Dr. Bragg who will assume care of my patient at the end of my shift. Vital Signs: Vital signs: Vital Signs Temperature 97.3 F L 07/27/22 00:48 Pulse Rate 72 07/27/22 00:48 Respiratory Rate 17 07/27/22 01:57 Blood Pressure 122/75 07/27/22 00:48 Pulse Oximetry 97 07/27/22 03:30 Oxygen Delivery Me thod Room Air 07/27/22 03:30 MDM - Abdominal Pain Medical Decision Making 67-year-old female comes in today for complaints of midepigastric abdominal pain for 2 to 3 days. Patient has a history of recurrent abdominal pain. Patient appears nontoxic. Abdomen soft with some midepigastric tenderness. Skin is warm and dry. Vital signs are normal. Differential diagnosis includes but not limited to gastritis, GERD, pancreatitis. Lab Data 07/27/22 02:18 07/27/22 02:18 Labs/Radiology: Radiology Impressions Abdomen/Pelvis CT 07/27/22 01:00 IMPRESSION: 1. Small hiatal hernia 2. Prominent common bile duct measuring 14.5 mm in diameter is midportion likely compensatory to cholecystectomy. Laboratory Results WBC 6.7 10^3/uL (4.0-10.0) 07/27/22 02:18 RBC 4.80 10^6/uL (4.1-5.3) 07/27/22 02:18 Hgb 11.3 g/dL (11.5-15.3) L 07/27/22 02:18 Hct 37.6 % (37.0-47.0) 07/27/22 02:18 MCV 78.3 fl (81-99) L 07/27/22 02:18 MCH 23.5 pg (28.0-34.0) L 07/27/22 02:18 MCHC 30.1 g/dL (30.0-36.0) 07/27/22 02:18 RDW 21.5 % (12.1-15.1) H 07/27/22 02:18 Plt Count 265 10^3/cmm (130-400) 07/27/22 02:18 MPV 8.8 fL (7.4-10.4) 07/27/22 02:18 Neut % (Auto) 62.9 % 07/27/22 02:18 Lymph % (Auto) 27.4 % 07/27/22 02:18 [place] % (Auto) 7.3 % 07/27/22 02:18 Eos % (Auto) 1.6 % 07/27/22 02:18 Baso % (Auto) 0.4 % 07/27/22 02:18 Neut # (Auto) 4.19 10^3/uL (1.8-7.7) 07/27/22 02:18 Lymph # (Auto) 1.8 10^3/uL (0.8-4.8) 07/27/22 02:18 [place] # (Auto) 0.5 10^3/uL (0.2-0.9) 07/27/22 02:18 Eos # (Auto) 0.1 10^3/uL (0.0-0.8) 07/27/22 02:18 Baso # (Auto) 0.0 10^3/uL (0.0-0.1) 07/27/22 02:18 Nucleated RBC % (auto) 0 % 07/27/22 02:18 Nucleated RBCs # 0.0 /100WBC 07/27/22 02:18 Sodium 134 mmol/L (136-145) L 07/27/22 02:18 Potassium 3.1 mmol/L (3.5-5.1) L 07/27/22 02:18 Chloride 90 mmol/L (98-107) L 07/27/22 02:18 Carbon Dioxide 32 mmol/L (22-29) H 07/27/22 02:18 Anion Gap 15.1 (5-19) 07/27/22 02:18 BUN 18 mg/dL (8-23) 07/27/22 02:18 Creatinine 1.0 mg/dL (0.5-0.9) H 07/27/22 02:18 GFR Calculation 55.1 mL/min (90-130) L 07/27/22 02:18 Glucose 97 mg/dL (65-115) 07/27/22 02:18 Calculated Osmolality 280 mOsm/kg (285-295) L 07/27/22 02:18 Calcium 8.9 mg/dL (8.5-10.5) 07/27/22 02:18 Total Bilirubin 0.2 mg/dL (0.15-1.2) 07/27/22 02:18 AST 21 U/L (0-32) 07/27/22 02:18 ALT 14 U/L (0-33) 07/27/22 02:18 Alkaline Phosphatase 112 U/L (35-105) H 07/27/22 02:18 Total Protein 7.2 g/dL (6.6-8.7) 07/27/22 02:18 Albumin 3.8 g/dL (3.5-5.2) 07/27/22 02:18 Globulin 3.4 g/dL (1.3-4.6) 07/27/22 02:18 Lipase 60 U/L (13-60) 07/27/22 02:18 Discharge Plan Discharge Patient Disposition: Home Clinical Impression: GERD with esophagitis Condition: Stable Prescriptions: New Carafate 1 gram tablet 1 g PO BID 28 Days Qty: 56 0RF No Action Proventil HFA 90 mcg/actuation HFA aerosol inhaler 1 inh inhalation Q6H PRN (Reason: shortness of breath or wheezing) Qty: 6.7 5RF levothyroxine 112 mcg tablet 112 mcg PO QAM Qty: 90 1RF gabapentin 300 mg capsule 300 mg PO TID Qty: 90 5RF ropinirole 1 mg tablet 5 mg PO TID dexlansoprazole [Dexilant] 30 mg capsule,biphase delayed releas 30 mg PO DAILY Qty: 90 1RF leflunomide 20 mg tablet 20 mg PO DAILY Qty: 30 3RF prednisone 10 mg tablet See Rx Instructions PO .COMPLEX Qty: 90 1RF Rx Instructions: 4tabs daily x3day take 3tabs daily x3days, then 2 tabs daily x5days, 1 tab daily x1week then stay on 0.5 tab daily baclofen 10 mg tablet 10 mg PO BID PRN (Reason: Muscle Spasm) 30 Days Qty: 30 0RF mirtazapine 15 mg tablet 15 mg PO .qhs Qty: 30 1RF Rx Instructions: 1/2 tab for 6 days then one at bedtime doxepin 6 mg tablet 6 mg PO .q hs PRN (Reason: sleep) Qty: 30 3RF oxycodone 5 mg tablet 5 mg PO TID PRN (Reason: pain) 30 Days Qty: 90 0RF Rx Instructions: Refill on or after 30-day interval. latanoprost 0.005 % drops 1 drp ophthalmic (eye) QPM furosemide [Lasix] 40 mg tablet 80 mg PO DAILY PRN (Reason: edema) ondansetron HCl 4 mg Tablet 4 mg PO DAILY PRN (Reason: Nausea And Vomiting) potassium chloride 10 mEq Tablet Extended Release 10 meq PO BID PRN (Reason: unknown) Hold Instructions: Resume on 04/29/22. Discharge Orders: Discharge ED (Routine); Ordered 07/27/22 Ordered By: Ty Bragg Referrals: Kaiser Lisa MD [Primary Care Provider] - 1-3 days Patient Instructions: GERD (Gastroesophageal Reflux Disease) (ED), Opioid Safety, Pain Management Activity Restrictions/Additional Instructions: Add new medication to your normal medications as directed use it 30 minutes prior to meals. Return for fever greater than 100, vomiting liquids or medications despite treatment, worsening pain despite treatment, other concerning symptoms Coding Level of Care Code ED Scientist Propagator for Maribel Sweet Documented by User: Ty Bragg DO 07/27/22 04:07 HPI - Abdominal Pain General: Chief Complaint: Abdominal Pain Stated Complaint: ABD Pain Time Seen by Provider: 07/27/22 01:00 [facility] ED PFSH: Medical History Abnormal movements Abnormal toxicological findings Acute encephalopathy Acute renal failure Acute respiratory failure with hypoxemia Adjustment insomnia ZAHRA (acute kidney injury) Altered mental status AMS (altered mental status) Anemia Anxiety and depression Aspiration into airway Bilateral lower extremity edema Chronic back pain CKD (chronic kidney disease) stage 3, GFR 30-59 ml/min Coffee ground emesis COVID-19 Extrapyramidal and movement disorder High risk medication use Hyperlipidemia Hypokalemia Hypomagnesemia Hypothyroidism Immunization counseling Iron deficiency anemia Lung nodule, solitary Multifocal pneumonia Prediabetes Prolonged QT interval Rheumatoid arthritis Seropositive rheumatoid arthritis of multiple sites Substance or medication-induced sleep disorder, insomnia type Surgical History History of ankle surgery left History of appendectomy History of delivery History of cholecystectomy History of hysterectomy with bilateral oophorectomy Previous back surgery Social History Smoking and tobacco status: former smoker Alcohol intake: current Alcohol intake frequency: holidays/special occasions only Course Vital Signs: Vital signs: Vital Signs Temperature 97.3 F L 07/27/22 00:48 Pulse Rate 72 07/27/22 00:48 Respiratory Rate 17 07/27/22 01:57 Blood Pressure 122/75 07/27/22 00:48 Pulse Oximetry 97 07/27/22 03:30 Oxygen Delivery Nj thod Room Air 07/27/22 03:30 MDM - Abdominal Pain Medical Decision Making 67-year-old female comes in today for complaints of midepigastric abdominal pain for 2 to 3 days. Patient has a history of recurrent abdominal pain. Patient appears nontoxic. Abdomen soft with some midepigastric tenderness. Skin is warm and dry. Vital signs are normal. Differential diagnosis includes but not limited to gastritis, GERD, pancreatitis. This patient was originally seen by MLAIK Saleem.? I agree with his history, evaluation, and treatment. Patient checked out to me at shift change. Patient has mild hypokalemia. Hemoglobin is 11. White blood cell count is normal. Liver enzymes are normal. Abdominal CT shows small hiatal hernia and a mildly prominent common bile duct likely the result of prior cholecystectomy. Patient is now asking to eat. She will be allowed discharge home. Lab Data 07/27/22 02:18 07/27/22 02:18 Labs/Radiology: Radiology Impressions Abdomen/Pelvis CT 07/27/22 01:00
[2022-07-27 01:57] VITALS: RESP 17; O2SAT 98
[2022-07-27] MEDS: ondansetron 2 mg/ML SDV 2 mL 4 MG IVP ×2 (02:19→04:39)
[2022-07-27] MEDS: sodium chloride 0.9% 500 ML 999 ML IV (02:19)
[2022-07-27] MEDS: morphine 4 mg/mL SDV 1 mL IVP ×2 (02:19→04:39)
[2022-07-27 02:27] LABS: Basophils % 0.4 %; Eosinophils # 0.1 10^3/uL (0.0-0.8); Eosinophils % 1.6 %; Hematocrit 37.6 % (37.0-47.0); Hemoglobin 11.3 g/dL (11.5-15.3); Lymphocytes # 1.8 10^3/uL (0.8-4.8); Lymphocytes % 27.4 %; Mean Corpuscular HGB Conc 30.1 g/dL (30.0-36.0); Mean Corpuscular Hemoglobin 23.5 pg (28.0-34.0); Mean Corpuscular Volume 78.3 fl (81-99); Mean Platelet Volume 8.8 fL (7.4-10.4); Monocytes # 0.5 10^3/uL (0.2-0.9); Monocytes % 7.3 %; Neutrophils # 4.19 10^3/uL (1.8-7.7); Neutrophils % 62.9 %; Nucleated Red Blood Cells % 0 %; Platelet Count 265 10^3/cmm (130-400); Red Cell Distribution Width 21.5 % (12.1-15.1); White Blood Count 6.7 10^3/uL (4.0-10.0)
[2022-07-27 02:43] LABS: Alanine Aminotransferase 14 U/L (0-33); Albumin Level 3.8 g/dL (3.5-5.2); Alkaline Phosphatase 112 U/L (35-105); Anion Gap 15.1 (5-19); Aspartate Amino Transferase 21 U/L (0-32); Blood Urea Nitrogen 18 mg/dL (8-23); Calcium 8.9 mg/dL (8.5-10.5); Carbon Dioxide 32 mmol/L (22-29); Chloride 90 mmol/L (98-107); Globulin 3.4 g/dL (1.3-4.6); Glomerular Filtration Rate 55.1 mL/min (90-130); Glucose 97 mg/dL (65-115); Lipase 60 U/L (13-60); Osmolality Calculated 280 mOsm/kg (285-295); Potassium 3.1 mmol/L (3.5-5.1); Sodium 134 mmol/L (136-145); Total Bilirubin 0.2 mg/dL (0.15-1.2); Total Protein 7.2 g/dL (6.6-8.7)
[2022-07-27] MEDS: iohexol 350 mg/mL 500 mL Btl (per mL) IV (03:01)
[2022-07-27 03:30] VITALS: O2SAT 97
[2022-07-27 04:16] VITALS: PULSE 56; RESP 16; O2SAT 96
== END 2022-07-27 04:49 | disposition home or self-care (01) ==
PROVIDERS: Nurse Practitioner Family; Emergency Provider Emergency Medicine; PCP Family Medicine Adult Medicine
DX: K21.00 Gastro-esophageal reflux disease with esophagitis, without bleeding (principal); Z87.891 Personal history of nicotine dependence; N18.30 Chronic kidney disease, stage 3 unspecified; E78.5 Hyperlipidemia, unspecified
CPT/HCPCS: 74177; 80053; 83690; 85025; 96361; 96374; 96375; 96376; 99285; J2270; J2405; J7040; Q9967

== ENCOUNTER 2022-08-02 09:56 | Observation (INO) | payer MEDICARE, OTHER, SELFPAY ==
[2022-08-02] VITALS (16 sets, daily range): BP systolic 87–148; BP diastolic 42–74; PULSE 51–75; RESP 10–22; TEMP 36.6–36.8; O2SAT 90–99; BMI 21.7
--- NOTE | 2022-08-02 10:52 | W.ED.ABDPA2 ---
Documented by User: Mario James DO 08/02/22 17:57 HPI - Abdominal Pain General: Chief Complaint: Abdominal Pain Stated Complaint: vomiting blood Time Seen by Provider: 08/02/22 10:10 History of Present Illness: Patient presents to the ER with complaints of right upper quadrant abdominal pain nausea vomiting, and even vomiting some blood yesterday. Patient said this been going on for about 3 weeks. She was seen here about a week ago where they did test and eventually sent her home. This never resolved with and started getting worse. Patient does have a history of this before. Patient has been scoped for and has had multiple abdominal surgeries with removal of her gallbladder appendix hysterectomy along with a hernia repair and MD elicited complaint: abdominal pain Pertinent past history: gastritis Onset (ago): week(s) (About 3 weeks ago) Pain Consistency: colicky Location: Epigastric and RUQ Severity: moderate Quality: aching Exacerbating factors: nothing Relieving factors: nothing Associated Symptoms: Reports nausea and vomiting; Denies chills, dysuria and fever(s) Review of Systems General: Reports: 10 or more systems reviewed and unremarkable except in HPI and below Const: Denies: fever(s) or chills Eyes: Denies: change in vision or photophobia ENMT: Denies: throat pain or odynophagia Card: Denies: chest pain, palpitations or irregular heart rhythm Resp: Denies: dyspnea, productive cough or non-productive cough GI: Reports: nausea and vomiting : Denies: flank pain, difficulty voiding or dysuria Musc: Denies: neck pain or back pain Skin/Breast: Denies: rash or pruritus Neuro: Denies: headache(s), numbness in extremities or weakness in extremities PFSH ED PFSH: Medical History Abnormal movements Abnormal toxicological findings Acute encephalopathy Acute renal failure Acute respiratory failure with hypoxemia Adjustment insomnia ZAHRA (acute kidney injury) Altered mental status AMS (altered mental status) Anemia Anxiety and depression Aspiration into airway Bilateral lower extremity edema Chronic back pain Chronic upper abdominal pain CKD (chronic kidney disease) stage 3, GFR 30-59 ml/min Coffee ground emesis COVID-19 Extrapyramidal and movement disorder High risk medication use Hyperlipidemia Hypokalemia Hypomagnesemia Hypothyroidism Iron deficiency anemia Lung nodule, solitary Multifocal pneumonia Prediabetes Prolonged QT interval Rheumatoid arthritis Seropositive rheumatoid arthritis of multiple sites Substance or medication-induced sleep disorder, insomnia type Surgical History History of ankle surgery left History of appendectomy History of delivery History of cholecystectomy History of hysterectomy with bilateral oophorectomy Previous back surgery Social History Smoking and tobacco status: former smoker Alcohol intake: current Alcohol intake frequency: holidays/special occasions only Physical Exam Const: COMMON NORMALS: no acute distress, average body habitus, patient oriented x3, no limitations, healthy appearing, alert and well nourished HENMT: COMMON NORMALS: normocephalic, atraumatic, hearing grossly normal bilaterally, external ears normal, Normal external nose present and moist oral mucous membranes HEAD & SCALP: normocephalic and atraumatic NOSE: Normal external nose present EXTERNAL EAR: Yes external ears normal Eye: COMMON NORMALS: Equal, round and reactive pupils present, EOMs intact bilaterally, conjunctivae normal and no scleral icterus CONJUNCTIVA: Yes conjunctivae normal PUPIL: Yes Equal, round and reactive pupils present Neck/C-Spine: COMMON NORMALS: full ROM, no lymphadenopathy, supple, no meningeal signs, no JVD and Thyroid normal THYROID: Thyroid normal Chest: COMMONS NORMALS: normal inspection of the chest and normal palpation of entire chest wall Resp: COMMON NORMALS: normal respiratory effort, No retractions, No use of accessory muscles and clear to auscultation bilaterally AUSCULTATION: clear to auscultation bilaterally Cardio: COMMON NORMALS: no JVD, regular rate, regular rhythm, S1 normal heart sound present and S2 normal heart sound present RATE: regular rate RHYTHM: regular rhythm HEART SOUNDS: S1 normal heart sound present and S2 normal heart sound present GI: OTHER: Soft nondistended positive bowel sounds all 4 quadrants no rebound guarding rigidity positive tenderness to palpation over epigastric and right upper quadrant regions. Neuro: COMMON NORMALS: patient oriented x3 SENSORIUM/ORIENTATION: Yes alert MENINGEAL SIGNS: Yes no meningeal signs Course Vital Signs: Vital signs: Vital Signs Temperature 98 F 08/02/22 09:58 Pulse Rate 72 08/02/22 18:10 Respiratory Rate 18 08/02/22 18:10 Blood Pressure 100/58 08/02/22 18:10 Pulse Oximetry 92 08/02/22 18:10 Oxygen Delivery Me thod Room Air 08/02/22 18:10 MDM - Abdominal Pain Medical Decision Making Patient presents to the ER with complaints of right upper quadrant pain. Patient was seen here recently had a CT scan lab work and was diagnosed with biliary colic. This is the same type of pain. Pain is 8 out of 10 that is intermittent. Patient was given several doses of narcotic pain medicine as well as fluid and Bentyl. Patient's lab work did reveal her potassium was low at 2.4 as well as sodium low 129. KUB was unremarkable. Patient will be discharged home on oral potassium, pain medicine, and antiemetic. Patient should follow-up with her primary care practitioner over the next week as needed. Differential Diagnosis Likely abdominal pain; Unlikely acute appendicitis, constipation, diverticulitis, pancreatitis or small bowel obstruction Medical Records I reviewed the patient's medical records. Lab Data I reviewed the patient's lab results. 08/02/22 11:05 08/02/22 11:05 Labs/Radiology: Radiology Impressions KUB X-Ray 08/02/22 15:26 IMPRESSION: 1. No acute GI abnormality. 2. Cholecystectomy 3. Lumbar spine kyphosis L4 and L5 Laboratory Results WBC 6.3 10^3/uL (4.0-10.0) 08/02/22 11:05 RBC 4.47 10^6/uL (4.1-5.3) 08/02/22 11:05 Hgb 10.7 g/dL (11.5-15.3) L 08/02/22 11:05 Hct 34.4 % (37.0-47.0) L 08/02/22 11:05 MCV 77.0 fl (81-99) L 08/02/22 11:05 MCH 23.9 pg (28.0-34.0) L 08/02/22 11:05 MCHC 31.1 g/dL (30.0-36.0) 08/02/22 11:05 RDW 21.4 % (12.1-15.1) H 08/02/22 11:05 Plt Count 285 10^3/cmm (130-400) 08/02/22 11:05 MPV 9.0 fL (7.4-10.4) 08/02/22 11:05 Neut % (Auto) 63.1 % 08/02/22 11:05 Lymph % (Auto) 24.3 % 08/02/22 11:05 [place] % (Auto) 10.0 % 08/02/22 11:05 Eos % (Auto) 2.1 % 08/02/22 11:05 Baso % (Auto) 0.3 % 08/02/22 11:05 Neut # (Auto) 4.00 10^3/uL (1.8-7.7) 08/02/22 11:05 Lymph # (Auto) 1.5 10^3/uL (0.8-4.8) 08/02/22 11:05 [place] # (Auto) 0.6 10^3/uL (0.2-0.9) 08/02/22 11:05 Eos # (Auto) 0.1 10^3/uL (0.0-0.8) 08/02/22 11:05 Baso # (Auto) 0.0 10^3/uL (0.0-0.1) 08/02/22 11:05 Nucleated RBC % (auto) 0 % 08/02/22 11:05 Nucleated RBCs # 0.0 /100WBC 08/02/22 11:05 PT 12.80 SECONDS (12.1-14.9) 08/02/22 11:05 INR 0.94 (0.8-1.2) 08/02/22 11:05 APTT 27.3 SECONDS (23.9-36.7) 08/02/22 11:05 Sodium 129 mmol/L (136-145) L 08/02/22 11:05 Potassium 2.4 mmol/L (3.5-5.1) L* 08/02/22 11:05 Chloride 87 mmol/L (98-107) L 08/02/22 11:05 Carbon Dioxide 33 mmol/L (22-29) H 08/02/22 11:05 Anion Gap 11.4 (5-19) 08/02/22 11:05 BUN 15 mg/dL (8-23) 08/02/22 11:05 Creatinine 0.9 mg/dL (0.5-0.9) 08/02/22 11:05 GFR Calculation 62.3 mL/min (90-130) L 08/02/22 11:05 Glucose 100 mg/dL (65-115) 08/02/22 11:05 Calculated Osmolality 269 mOsm/kg (285-295) L 08/02/22 11:05 Calcium 8.5 mg/dL (8.5-10.5) 08/02/22 11:05 Total Bilirubin 0.2 mg/dL (0.15-1.2) 08/02/22 11:05 AST 16 U/L (0-32) 08/02/22 11:05 ALT 10 U/L (0-33) 08/02/22 11:05 Alkaline Phosphatase 125 U/L (35-105) H 08/02/22 11:05 Total Protein 7.3 g/dL (6.6-8.7) 08/02/22 11:05 Albumin 3.9 g/dL (3.5-5.2) 08/02/22 11:05 Globulin 3.4 g/dL (1.3-4.6) 08/02/22 11:05 Lipase 34 U/L (13-60) 08/02/22 11:05 Urine Color Yellow (Yellow) 08/02/22 18:20 Urine Appearance Sl hazy (CLEAR) A 08/02/22 18:20 Urine pH 7 (5-7) 08/02/22 18:20 Ur Specific [place] 1.010 (1.005-1.030) 08/02/22 18:20 Urine Protein Neg (Negative) 08/02/22 18:20 Urine Glucose (UA) Norm (Normal) 08/02/22 18:20 Urine Ketones Negative (Negative) 08/02/22 18:20 Urine Blood Neg (Negative) 08/02/22 18:20 Urine Nitrate Negative (Negative) 08/02/22 18:20 Urine Bilirubin Neg (Negative) 08/02/22 18:20 Urine Urobilinogen Norm mg/dL (Negative) 08/02/22 18:20 Ur Leukocyte Esterase 1+ (Negative) H 08/02/22 18:20 Urine RBC 0-4 /hpf (0-2) H 08/02/22 18:20 Urine WBC 10-15 /hpf (0-5) H 08/02/22 18:20 Ur Squamous Epith Cells 10-15 /hpf (0-5) H 08/02/22 18:20 Amorphous Sediment Not Reportable 08/02/22 18:20 Urine Bacteria 1+ /hpf (NONE) H 08/02/22 18:20 Discharge Plan Discharge Patient Disposition: Admitted As Inpatient Clinical Impression: Colic, biliary, Acute hypokalemia, Nausea & vomiting Condition: Stable Prescriptions: New Pepcid 40 mg tablet 40 mg PO DAILY Qty: 30 0RF dicyclomine 20 mg tablet 20 mg PO TID PRN (Reason: pain ) Qty: 30 0RF ondansetron 4 mg tablet,disintegrating 4 mg PO TID PRN (Reason: nausea and vomiting) Qty: 30 0RF oxycodone 5 mg tablet 5 mg PO Q8H PRN (Reason: pain) Qty: 10 0RF No Action Proventil HFA 90 mcg/actuation HFA aerosol inhaler 1 inh inhalation Q6H PRN (Reason: shortness of breath or wheezing) Qty: 6.7 5RF levothyroxine 112 mcg tablet 112 mcg PO QAM Qty: 90 1RF gabapentin 300 mg capsule 300 mg PO TID Qty: 90 5RF baclofen 10 mg tablet 10 mg PO BID PRN (Reason: Muscle Spasm) 30 Days Qty: 30 0RF oxycodone 5 mg tablet 5 mg PO TID PRN (Reason: pain) 30 Days Qty: 90 0RF Rx Instructions: Refill on or after 30-day interval. latanoprost 0.005 % drops 1 drp ophthalmic (eye) QPM furosemide [Lasix] 40 mg tablet 80 mg PO DAILY PRN (Reason: edema) clonazepam 1 mg tablet 1 mg PO DAILY PRN (Reason: Anxiety) ropinirole 5 mg tablet 5 mg PO TID ondansetron 4 mg tablet,disintegrating 4 mg PO DAILY PRN (Reason: Nausea And Vomiting) prednisone 10 mg tablet 10 mg PO QAM leflunomide 20 mg tablet 20 mg PO QAM mirtazapine 15 mg tablet 15 mg PO BEDTIME Dexilant 30 mg capsule,biphase delayed releas 30 mg PO BEDTIME doxepin 6 mg tablet 6 mg PO BEDTIME PRN (Reason: sleep) potassium chloride 10 mEq Tablet Extended Release 20 meq PO DAILY PRN (Reason: when takes lasix) Hold Instructions: Resume on 04/29/22. sucralfate [Carafate] 1 gram tablet 1 g PO BID 28 Days Qty: 56 0RF Referrals: Kaiser Lisa MD [Primary Care Provider] - 1 week Patient Instructions: Abdominal Pain (ED), Opioid Safety, Pain Management Coding Level of Care Code ED Radio Mechanic for Chg Fwd Documented by User: Ty Bragg DO 08/02/22 20:29 HPI - Abdominal Pain General: Chief Complaint: Abdominal Pain Stated Complaint: vomiting blood Time Seen by Provider: 08/02/22 10:10 PFSH ED PFSH: Medical History Abnormal movements Abnormal toxicological findings Acute encephalopathy Acute renal failure Acute respiratory failure with hypoxemia Adjustment insomnia ZAHRA (acute kidney injury) Altered mental status AMS (altered mental status) Anemia Anxiety and depression Aspiration into airway Bilateral lower extremity edema Chronic back pain Chronic upper abdominal pain CKD (chronic kidney disease) stage 3, GFR 30-59 ml/min Coffee ground emesis COVID-19 Extrapyramidal and movement disorder High risk medication use Hyperlipidemia Hypokalemia Hypomagnesemia Hypothyroidism Iron deficiency anemia Lung nodule, solitary Multifocal pneumonia Prediabetes Prolonged QT interval Rheumatoid arthritis Seropositive rheumatoid arthritis of multiple sites Substance or medication-induced sleep disorder, insomnia type Surgical History History of ankle surgery left History of appendectomy History of delivery History of cholecystectomy History of hysterectomy with bilateral oophorectomy Previous back surgery Social History Smoking and tobacco status: former smoker Alcohol intake: current Alcohol intake frequency: holidays/special occasions only Course Consultations: Consultation #1: Flor Vital Signs: Vital signs: Vital Signs Temperature 98 F 08/02/22 09:58 Pulse Rate 72 08/02/22 18:10 Respiratory Rate 18 08/02/22 18:10 Blood Pressure 100/58 08/02/22 18:10 Pulse Oximetry 92 08/02/22 18:10 Oxygen Delivery Me thod Room Air 08/02/22 18:10 MDM - Abdominal Pain Medical Decision Making Patient presents to the ER with complaints of right upper quadrant pain. Patient was seen here recently had a CT scan lab work and was diagnosed with biliary colic. This is the same type of pain. Pain is 8 out of 10 that is intermittent. Patient was given several doses of narcotic pain medicine as well as fluid and Bentyl. Patient's lab work did reveal her potassium was low at 2.4 as well as sodium low 129. KUB was unremarkable. Patient will be discharged home on oral potassium, pain medicine, and antiemetic. Patient should follow-up with her primary care practitioner over the next week as needed. 67-year-old female checked out to me by the previous physician at shift change. This lady had failed her oral food challenge and fluid challenge here in the ER. Her potassium was 2.4, and she threw up her oral potassium. Her blood pressure is mildly low 90/50. She will be admitted for IV fluid resuscitation, potassium replacement, etc. Hospitalist has seen the patient in the ER. Lab Data 08/02/22 11:05 08/02/22 11:05 Labs/Radiology: Radiology Impressions KUB X-Ray 08/02/22 15:26 IMPRESSION: 1. No acute GI abnormality. 2. Cholecystectomy 3. Lumbar spine kyphosis L4 and L5 Laboratory Results WBC 6.3 10^3/uL (4.0-10.0) 08/02/22 11:05 RBC 4.47 10^6/uL (4.1-5.3) 08/02/22 11:05 Hgb 10.7 g/dL (11.5-15.3) L 08/02/22 11:05 Hct 34.4 % (37.0-47.0) L 08/02/22 11:05 MCV 77.0 fl (81-99) L 08/02/22 11:05 MCH 23.9 pg (28.0-34.0) L 08/02/22 11:05 MCHC 31.1 g/dL (30.0-36.0) 08/02/22 11:05 RDW 21.4 % (12.1-15.1) H 08/02/22 11:05 Plt Count 285 10^3/cmm (130-400) 08/02/22 11:05 MPV 9.0 fL (7.4-10.4) 08/02/22 11:05 Neut % (Auto) 63.1 % 08/02/22 11:05 Lymph % (Auto) 24.3 % 08/02/22 11:05 [place] % (Auto) 10.0 % 08/02/22 11:05 Eos % (Auto) 2.1 % 08/02/22 11:05 Baso % (Auto) 0.3 % 08/02/22 11:05 Neut # (Auto) 4.00 10^3/uL (1.8-7.7) 08/02/22 11:05 Lymph # (Auto) 1.5 10^3/uL (0.8-4.8) 08/02/22 11:05 [place] # (Auto) 0.6 10^3/uL (0.2-0.9) 08/02/22 11:05 Eos # (Auto) 0.1 10^3/uL (0.0-0.8) 08/02/22 11:05 Baso # (Auto) 0.0 10^3/uL (0.0-0.1) 08/02/22 11:05 Nucleated RBC % (auto) 0 % 08/02/22 11:05 Nucleated RBCs # 0.0 /100WBC 08/02/22 11:05 PT 12.80 SECONDS (12.1-14.9) 08/02/22 11:05 INR 0.94 (0.8-1.2) 08/02/22 11:05 APTT 27.3 SECONDS (23.9-36.7) 08/02/22 11:05 Sodium 129 mmol/L (136-145) L 08/02/22 11:05 Potassium 2.4 mmol/L (3.5-5.1) L* 08/02/22 11:05 Chloride 87 mmol/L (98-107) L 08/02/22 11:05 Carbon Dioxide 33 mmol/L (22-29) H 08/02/22 11:05 Anion Gap 11.4 (5-19) 08/02/22 11:05 BUN 15 mg/dL (8-23) 08/02/22 11:05 Creatinine 0.9 mg/dL (0.5-0.9) 08/02/22 11:05 GFR Calculation 62.3 mL/min (90-130) L 08/02/22 11:05 Glucose 100 mg/dL (65-115) 08/02/22 11:05 Calculated Osmolality 269 mOsm/kg (285-295) L 08/02/22 11:05 Calcium 8.5 mg/dL (8.5-10.5) 08/02/22 11:05 Total Bilirubin 0.2 mg/dL (0.15-1.2) 08/02/22 11:05 AST 16 U/L (0-32) 08/02/22 11:05 ALT 10 U/L (0-33) 08/02/22 11:05 Alkaline Phosphatase 125 U/L (35-105) H 08/02/22 11:05 Total Protein 7.3 g/dL (6.6-8.7) 08/02/22 11:05 Albumin 3.9 g/dL (3.5-5.2) 08/02/22 11:05 Globulin 3.4 g/dL (1.3-4.6) 08/02/22 11:05 Lipase 34 U/L (13-60) 08/02/22 11:05 Urine Color Yellow (Yellow) 08/02/22 18:20 Urine Appearance Sl hazy (CLEAR) A 08/02/22 18:20 Urine pH 7 (5-7) 08/02/22 18:20 Ur Specific [place] 1.010 (1.005-1.030) 08/02/22 18:20 Urine Protein Neg (Negative) 08/02/22 18:20 Urine Glucose (UA) Norm (Normal) 08/02/22 18:20 Urine Ketones Negative (Negative) 08/02/22 18:20 Urine Blood Neg (Negative) 08/02/22 18:20 Urine Nitrate Negative (Negative) 08/02/22 18:20 Urine Bilirubin Neg (Negative) 08/02/22 18:20 Urine Urobilinogen Norm mg/dL (Negative) 08/02/22 18:20 Ur Leukocyte Esterase 1+ (Negative) H 08/02/22 18:20 Urine RBC 0-4 /hpf (0-2) H 08/02/22 18:20 Urine WBC 10-15 /hpf (0-5) H 08/02/22 18:20 Ur Squamous Epith Cells 10-15 /hpf (0-5) H 08/02/22 18:20 Amorphous Sediment Not Reportable 08/02/22 18:20 Urine Bacteria 1+ /hpf (NONE) H 08/02/22 18:20 Discharge Plan Discharge Patient Disposition: Admitted As Inpatient Clinical Impression: Colic, biliary, Acute hypokalemia, Nausea & vomiting Condition: Stable Prescriptions: New Pepcid 40 mg tablet 40 mg PO DAILY Qty: 30 0RF dicyclomine 20 mg tablet 20 mg PO TID PRN (Reason: pain ) Qty: 30 0RF ondansetron 4 mg tablet,disintegrating 4 mg PO TID PRN (Reason: nausea and vomiting) Qty: 30 0RF oxycodone 5 mg tablet 5 mg PO Q8H PRN (Reason: pain) Qty: 10 0RF No Action Proventil HFA 90 mcg/actuation HFA aerosol inhaler 1 inh inhalation Q6H PRN (Reason: shortness of breath or wheezing) Qty: 6.7 5RF levothyroxine 112 mcg tablet 112 mcg PO QAM Qty: 90 1RF gabapentin 300 mg capsule 300 mg PO TID Qty: 90 5RF baclofen 10 mg tablet 10 mg PO BID PRN (Reason: Muscle Spasm) 30 Days Qty: 30 0RF oxycodone 5 mg tablet 5 mg PO TID PRN (Reason: pain) 30 Days Qty: 90 0RF Rx Instructions: Refill on or after 30-day interval. latanoprost 0.005 % drops 1 drp ophthalmic (eye) QPM furosemide [Lasix] 40 mg tablet 80 mg PO DAILY PRN (Reason: edema) clonazepam 1 mg tablet 1 mg PO DAILY PRN (Reason: Anxiety) ropinirole 5 mg tablet 5 mg PO TID ondansetron 4 mg tablet,disintegrating 4 mg PO DAILY PRN (Reason: Nausea And Vomiting) prednisone 10 mg tablet 10 mg PO QAM leflunomide 20 mg tablet 20 mg PO QAM mirtazapine 15 mg tablet 15 mg PO BEDTIME Dexilant 30 mg capsule,biphase delayed releas 30 mg PO BEDTIME doxepin 6 mg tablet 6 mg PO BEDTIME PRN (Reason: sleep) potassium chloride 10 mEq Tablet Extended Release 20 meq PO DAILY PRN (Reason: when takes lasix) Hold Instructions: Resume on 04/29/22. sucralfate [Carafate] 1 gram tablet 1 g PO BID 28 Days Qty: 56 0RF Referrals: Kaiser Lisa MD [Primary Care Provider] - 1 week Patient Instructions: Abdominal Pain (ED), Opioid Safety, Pain Management Coding Level of Care Code ED Radio Mechanic for Maribel Sweet
[2022-08-02 11:15] LABS: Basophils % 0.3 %; Eosinophils # 0.1 10^3/uL (0.0-0.8); Eosinophils % 2.1 %; Hematocrit 34.4 % (37.0-47.0); Hemoglobin 10.7 g/dL (11.5-15.3); Lymphocytes # 1.5 10^3/uL (0.8-4.8); Lymphocytes % 24.3 %; Mean Corpuscular HGB Conc 31.1 g/dL (30.0-36.0); Mean Corpuscular Hemoglobin 23.9 pg (28.0-34.0); Monocytes # 0.6 10^3/uL (0.2-0.9); Neutrophils % 63.1 %; Nucleated Red Blood Cells % 0 %; Platelet Count 285 10^3/cmm (130-400); Red Blood Count 4.47 10^6/uL (4.1-5.3); Red Cell Distribution Width 21.4 % (12.1-15.1); White Blood Count 6.3 10^3/uL (4.0-10.0)
[2022-08-02] MEDS: ondansetron 2 mg/ML SDV 2 mL 4 MG IVP ×2 (11:15→18:29)
[2022-08-02] MEDS: famotidine 20 mg/2 mL INJ 40 MG IVP (11:15)
[2022-08-02] MEDS: sodium chloride 0.9% 1,000 ML 999 ML IV ×2 (11:20→13:12)
[2022-08-02] MEDS: morphine 4 mg/mL SDV 1 mL IVP ×3 (11:26→18:27)
[2022-08-02 11:32] LABS: INR 0.94 (0.8-1.2)
[2022-08-02 11:33] LABS: Partial Thromboplastin Time 27.3 SECONDS (23.9-36.7)
[2022-08-02 11:44] LABS: Alanine Aminotransferase 10 U/L (0-33); Albumin Level 3.9 g/dL (3.5-5.2); Alkaline Phosphatase 125 U/L (35-105); Anion Gap 11.4 (5-19); Aspartate Amino Transferase 16 U/L (0-32); Blood Urea Nitrogen 15 mg/dL (8-23); Calcium 8.5 mg/dL (8.5-10.5); Carbon Dioxide 33 mmol/L (22-29); Chloride 87 mmol/L (98-107); Creatinine Clr Calc Pharmacy 56.7366; Globulin 3.4 g/dL (1.3-4.6); Glomerular Filtration Rate 62.3 mL/min (90-130); Glucose 100 mg/dL (65-115); Lipase 34 U/L (13-60); Osmolality Calculated 269 mOsm/kg (285-295); Sodium 129 mmol/L (136-145); Total Bilirubin 0.2 mg/dL (0.15-1.2); Total Protein 7.3 g/dL (6.6-8.7)
[2022-08-02 11:46] LABS: Potassium 2.4 mmol/L (3.5-5.1)
[2022-08-02] MEDS: potassium chloride ER 20 mEq Tablet 40 MEQ PO (12:19)
[2022-08-02] MEDS: lidocaine 2% viscous 15 ML, aluminum-mag hydrox-simethicon 30 ML, sucralfate oral liq 1 GM PO (12:51)
--- NOTE | 2022-08-02 15:26 | XRR_ITS ---
PROCEDURE INFORMATION: Exam: XR Abdomen Exam date and time: 08/02/2022 3:37 PM Age: 67 years old Clinical indication: Abdominal pain; Generalized; Prior surgery; Surgery type: Appy; Vanessa; C-sec; Hyst; Hernia; L-sp; Additional info: Abd pain TECHNIQUE: Imaging protocol: Radiologic exam of the abdomen. Views: Frontal supine view of the abdomen. 1 View. COMPARISON: CT abdomen pelvis w con* [id number] 07/27/2022 2:58 AM FINDINGS: Gastrointestinal tract: Normal. No bowel dilation. There is evidence of cholecystectomy. Bones/joints: Kyphoplasty is seen L4 and L5 vertebral bodies XR/XR KUB [id number] IMPRESSION: 1. No acute GI abnormality. 2. Cholecystectomy 3. Lumbar spine kyphosis L4 and L5
[2022-08-02] MEDS: oxyCODONE 5 mg IR Tab/Cap PO (15:32)
[2022-08-02] MEDS: dicyclomine 20 mg Tablet PO (15:32)
--- NOTE | 2022-08-02 17:21 | PC.PHAR ---
pt states she takes care of her own medications-pt states she hasnt taken prozac 40mg daily for a month ext shows last filled 07/22/22 90d/s-pt states the tizanidine 4mg q8h prn was dced ext shows last filled 07/23/22 90d/s-notes are made in the pharmacy comments
[2022-08-02 18:45] LABS: Add Urine Microscopic? YES; Bilirubin Urine Neg (Negative); Blood Urine Neg (Negative); Glucose Urine UA Norm (Normal); Ketones Urine Negative (Negative); Leukocyte Esterase Urine 1+ (Negative); Nitrate Urine Negative (Negative); Protein Urine Neg (Negative); Urine Appearance SL Hazy (CLEAR); Urine Color Yellow (Yellow); Urobilinogen Urine Norm (Negative); pH Urine 7 (5-7)
[2022-08-02 18:46] LABS: Bacteria Urine 1+ /hpf; RBC Urine 0-4 /hpf (0-2)
--- NOTE | 2022-08-02 18:58 | PC.NURSE ---
Recieved report from Kimberley CABRALES. Rounded on pt, pt lying in bed. Pt does not appear to be in apparent distress. Pt denies needs at this time.
[2022-08-02] MEDS: potassium chloride premix 100 ML 25 MEQ IV (19:15)
[2022-08-02] MEDS: sodium chloride 0.9% 500 ML 999 ML IV (20:34)
[2022-08-02] MEDS: HYDROmorphone 1 mg/mL INJ 1 mL 0.5 MG IVP (20:35)
--- NOTE | 2022-08-02 20:43 | CTR_ITS ---
PROCEDURE INFORMATION: Exam: CT Abdomen And Pelvis With Contrast Exam date and time: 08/02/2022 10:08 PM Age: 67 years old Clinical indication: Abdominal pain; Generalized; Prior surgery; Surgery date: 6+ months; Surgery type: Appendectomy, cholecystectomy, , kypoplasty x2; Additional info: Abdominal; Pain TECHNIQUE: Imaging protocol: Computed tomography of the abdomen and pelvis with contrast. Radiation optimization: All CT scans at this facility use at least one of these dose optimization techniques: automated exposure control; mA and/or kV adjustment per patient size (includes targeted exams where dose is matched to clinical indication); or iterative reconstruction. Contrast material: OMNI 350; Contrast volume: 75 ml; Contrast route: INTRAVENOUS (IV); REPORTING DATA: Count of CT and Cardiac NM exams in prior 12 months: This patient has received 6 known CTs and 0 known cardiac nuclear medicine studies in the 12 months prior to the current study. COMPARISON: CT abdomen pelvis w con* [id number] 07/27/2022 2:58 AM RADIATION DOSE METRICS: Total DLP (mGy-cm): 380.12 FINDINGS: Lungs: Bibasilar atelectasis. Diaphragm: Moderate hiatal hernia. Liver: Normal. No mass. Gallbladder and bile ducts: Common bile duct dilation, decreased compared to prior exam, may be secondary to prior cholecystectomy. Cholecystectomy. Pancreas: Normal. No ductal dilation. Spleen: Normal. No splenomegaly. Adrenal glands: Normal. No mass. Kidneys and ureters: Left kidney cyst, negative for follow-up advised. Stomach and bowel: Diverticulosis without diverticulitis. Constipation. Appendix: No evidence of appendicitis. Intraperitoneal space: Unremarkable. No free air. No significant fluid collection. Vasculature: Unremarkable. No abdominal aortic aneurysm. Lymph nodes: Unremarkable. No enlarged lymph nodes. Urinary bladder: Unremarkable as visualized. Reproductive: Unremarkable as visualized. Bones/joints: L4 and L5 vertebroplasty changes. Soft tissues: Unremarkable. CT/CT abdomen pelvis w con* [id number] IMPRESSION: 1. Negative for acute inflammatory process in the abdomen or pelvis. 2. Common bile duct dilation, decreased compared to prior exam, may be secondary to prior cholecystectomy. 3. Bibasilar atelectasis. 4. Moderate hiatal hernia. 5. Cholecystectomy. 6. Diverticulosis without diverticulitis. 7. Constipation. 8. L4 and L5 vertebroplasty changes. 9. Left kidney cyst, negative for follow-up advised.
--- NOTE | 2022-08-02 20:44 | PM.HP ---
Providers/Chief Complaint Admitting Physician: Bernard Ray MD Primary Care Provider: Kaiser Lisa MD Chief Complaint: vomiting blood History of Present Illness Tosha Perry is a 67 year old female with a past medical history of sepsis, pneumonia, history of extraparametal syndromes, history of chronic pain history of chronic renal failure, hyperlipidemia, hypothyroidism, iron deficiency anemia who presents [facility] due to 3-week history of nausea, vomiting, diarrhea, right upper quadrant pain. She tells me that she has chronic right upper quadrant pain, she has a history of chronic CBD dilatation and has had multiple MRCP's which potentially have shown stones but no surgeon has been able to retrieve them according to retrieve stone, she has been dealing this for a long time, but for the last 3 weeks she has had right upper quadrant pain, nausea, vomiting, which for the last 24 hours has become very severe she is not able to keep anything down Review of Systems Const: Denies: fever(s) or chills Card: Denies: chest pain Resp: Denies: dyspnea GI: Reports: abdominal pain, nausea, vomiting and diarrhea : Denies: flank pain or difficulty voiding Neuro: Denies: headache(s) Medications/Allergies Home Medications Medication Instructions Recorded Confirmed Last Taken Type potassium chloride 10 mEq 20 meq PO DAILY PRN when takes 04/13/22 08/02/22 Unknown History tablet,extended release lasix albuterol sulfate 90 mcg/actuation 1 inh inhalation Q6H PRN shortness 04/27/22 08/02/22 Unknown Rx aerosol inhaler (Proventil HFA) of breath or wheezing #6.7 grams gabapentin 300 mg capsule 300 mg PO TID chronic pain #90 caps 04/27/22 08/02/22 08/01/22 Rx levothyroxine 112 mcg tablet 112 mcg PO QAM low thyroid #90 tabs 04/27/22 08/02/22 08/01/22 Rx latanoprost 0.005 % eye drops 1 drp ophthalmic (eye) QPM 06/17/22 08/02/22 08/01/22 History baclofen 10 mg tablet 10 mg PO BID PRN Muscle Spasm 30 07/01/22 08/02/22 Unknown Rx days #30 tabs oxycodone 5 mg tablet 5 mg PO TID PRN pain 30 days #90 07/10/22 08/02/22 Unknown Rx tabs furosemide 40 mg tablet (Lasix) 80 mg PO DAILY PRN edema 07/13/22 08/02/22 Unknown History sucralfate 1 gram tablet (Carafate) 1 g PO BID 4 weeks #56 tabs 07/27/22 08/02/22 08/01/22 Rx clonazepam 1 mg tablet 1 mg PO DAILY PRN Anxiety 08/02/22 08/02/22 Unknown History dexlansoprazole 30 mg 30 mg PO BEDTIME 08/02/22 08/02/22 08/01/22 History capsule,biphase delayed release (Dexilant) dicyclomine 20 mg tablet 20 mg PO TID PRN pain #30 tabs 08/02/22 Unknown Rx doxepin 6 mg tablet 6 mg PO BEDTIME PRN sleep 08/02/22 08/02/22 Unknown History famotidine 40 mg tablet (Pepcid) 40 mg PO DAILY #30 tabs 08/02/22 Unknown Rx leflunomide 20 mg tablet 20 mg PO QAM 08/02/22 08/02/22 08/01/22 History mirtazapine 15 mg tablet 15 mg PO BEDTIME mental health 08/02/22 08/02/22 08/01/22 History ondansetron 4 mg disintegrating 4 mg PO DAILY PRN Nausea And 08/02/22 08/02/22 Unknown History tablet Vomiting ondansetron 4 mg disintegrating 4 mg PO TID PRN nausea and 08/02/22 Unknown Rx tablet vomiting #30 tabs oxycodone 5 mg tablet 5 mg PO Q8H PRN pain #10 tabs 08/02/22 Unknown Rx prednisone 10 mg tablet 10 mg PO QAM joint pain 08/02/22 08/02/22 08/01/22 History ropinirole 5 mg tablet 5 mg PO TID 08/02/22 08/02/22 08/01/22 History Allergies Allergy/AdvReac Type Severity Reaction Status Date / Time methotrexate Allergy Unknown Unknown Verified 08/02/22 17:10 tizanidine Allergy Unknown Unknown Verified 08/02/22 17:10 amitriptyline Allergy ADR-Agitate Verified 08/02/22 17:10 d diphenhydramine Allergy ADR-Agitate Verified 08/02/22 17:10 [From Benadryl] d PFSH Acute PFSH: Medical History Abnormal movements Abnormal toxicological findings Acute encephalopathy Acute renal failure Acute respiratory failure with hypoxemia Adjustment insomnia ZAHRA (acute kidney injury) Altered mental status AMS (altered mental status) Anemia Anxiety and depression Aspiration into airway Bilateral lower extremity edema Chronic back pain Chronic upper abdominal pain CKD (chronic kidney disease) stage 3, GFR 30-59 ml/min Coffee ground emesis COVID-19 Extrapyramidal and movement disorder High risk medication use Hyperlipidemia Hypokalemia Hypomagnesemia Hypothyroidism Iron deficiency anemia Lung nodule, solitary Multifocal pneumonia Prediabetes Prolonged QT interval Rheumatoid arthritis Seropositive rheumatoid arthritis of multiple sites Substance or medication-induced sleep disorder, insomnia type Surgical History History of ankle surgery left History of appendectomy History of delivery History of cholecystectomy History of hysterectomy with bilateral oophorectomy Previous back surgery Social History Smoking and tobacco status: former smoker Alcohol intake: current Alcohol intake frequency: holidays/special occasions only Vitals/I&O/Wt Last Vital Signs Temp 98 F 08/02/22 09:58 Pulse 61 08/02/22 19:01 Resp 22 H 08/02/22 19:01 BP 113/43 08/02/22 19:01 Pulse Ox 94 08/02/22 19:01 O2 Del Method Room Air 08/02/22 19:01 08/02/22 08/02/22 08/02/22 06:59 14:59 22:59 Intake Total 1999 Balance 1999 Weight last 48 hrs Weight 61.235 kg Physical Exam Const: COMMON NORMALS: no acute distress and patient oriented x3 HENMT: COMMON NORMALS: normocephalic HEAD & SCALP: normocephalic Eye: COMMON NORMALS: Equal, round and reactive pupils present and EOMs intact bilaterally Neck/C-Spine: COMMON NORMALS: no JVD Lymph: LYMPHATIC: no lymphadenopathy noted Resp: COMMON NORMALS: normal respiratory effort, No retractions, No use of accessory muscles and clear to auscultation bilaterally AUSCULTATION: clear to auscultation bilaterally Cardio: COMMON NORMALS: regular rate, regular rhythm, S1 normal heart sound present and S2 normal heart sound present RATE: regular rate RHYTHM: regular rhythm HEART SOUNDS: S1 normal heart sound present and S2 normal heart sound present GI: COMMON NORMALS: Normal to inspection, nondistended, normoactive bowel sounds present, Soft to palpation and non-tender PALPATION: Yes Soft to palpation : COMMON NORMALS: Yes no CVA tenderness Extremity: COMMON NORMALS: no pedal edema Neuro: COMMON NORMALS: patient oriented x3, CN's II-XII intact bilaterally, moves all extremities and no focal motor deficits Psych: COMMON NORMALS: mental status grossly normal Data 08/02/22 11:05 08/02/22 11:05 A&P Assessment and plan (1) Colic, biliary: (2) Acute hypokalemia: (3) Nausea & vomiting: Qualifiers: Vomiting type: unspecified Qualified Code(s): R11.2 - Nausea with vomiting, unspecified (4) Chronic upper abdominal pain: (5) Hyponatremia: (6) UTI (urinary tract infection): Plan Hyponatremia, likely secondary dehydration IV fluids Hypokalemia secondary to nausea, chronic diarrhea, IV replacement and recheck in a.m. Check magnesium levels, phosphorus levels Chronic right upper quadrant abdominal pain -We will repeat CT scan abdomen pelvis, consider MRCP UTI, Rocephin Blood cultures, TSH, GGT, amylase Full code Lovenox Attestations Medical Necessity Statement*: Patient requires hospitalization, outpatient with observation, hypokalemia, hyponatremia, dehydration, retching Diagnoses Colic, biliary K80.50 Acute hypokalemia E87.6 Nausea & vomiting R11.2 Vomiting type: unspecified Chronic upper abdominal pain R10.10; G89.29 Hyponatremia E87.1 UTI (urinary tract infection) N39.0
[2022-08-02 21:48] LABS: Estmated Average Glucose 123; Hemoglobin A1C 5.9 % (4.0-6.0)
[2022-08-02] MEDS: iohexol 350 mg/mL 500 mL Btl (per mL) IV (22:03)
[2022-08-02 22:06] LABS: Procalcitonin 0.07 ng/mL (0-0.5); Thyroid Stimulating Hormone 1.37 uIU/mL (0.27-4.20)
[2022-08-02 22:17] LABS: Amylase 78 U/L (28-100); C Reactive Protein 26.6 mg/L (0.0-4.9); Chol HDL Ratio 5.37 mg/dL (0.0-4.40); Cholesterol 263 mg/dL (0-200); Gamma Glutamyl Transferase 21 U/L (5-36); HDL Cholesterol 49 mg/dL (60-100); LDL Cholesterol Calculated 185 mg/dL (50-129); LDL HDL Ratio 3.78 RATIO (0.00-3.22); Magnesium 1.7 mg/dL (1.7-2.3); Phosphorus 2.2 mg/dL (2.5-4.5); Triglycerides 145 mg/dL (0-150)
[2022-08-02] MEDS: sucralfate 1 gm Tablet PO (22:25)
[2022-08-02] MEDS: mirtazapine 15 mg Tablet PO (22:26)
[2022-08-02] MEDS: gabapentin 300 mg Capsule PO (22:26)
[2022-08-02] MEDS: pantoprazole 40 mg SDV IVP (22:30)
[2022-08-02] MEDS: enoxaparin 40 mg/0.4 mL Syringe SUBCUT (22:30)
[2022-08-02] MEDS: morphine 4 mg/mL SDV 1 mL 2 MG IVP (23:41)
[2022-08-03] VITALS (9 sets, daily range): BP systolic 104–125; BP diastolic 63–67; PULSE 49–56; RESP 15–18; TEMP 36.5–36.9; O2SAT 94–97
[2022-08-03] MEDS: lidocaine 1% 5 ML in potassium chloride premix 100 ML 25 ML IV (00:08)
[2022-08-03] MEDS: ropinirole 2 mg Tablet 5 MG PO ×3 (00:19→14:48)
[2022-08-03] MEDS: cefTRIAXone 1,000 MG in sodium chloride 0.9% (plus) 50 ML 100 MG IV (00:21)
[2022-08-03] MEDS: dextrose 5%-sod chloride 0.9% 1,000 ML 125 ML IV ×2 (04:25→13:28)
[2022-08-03 04:53] LABS: Basophils % 0.5 %; Eosinophils # 0.2 10^3/uL (0.0-0.8); Eosinophils % 3.4 %; Hematocrit 28.3 % (37.0-47.0); Hemoglobin 8.7 g/dL (11.5-15.3); Lymphocytes # 1.4 10^3/uL (0.8-4.8); Lymphocytes % 31.3 %; Mean Corpuscular HGB Conc 30.7 g/dL (30.0-36.0); Mean Corpuscular Hemoglobin 24.4 pg (28.0-34.0); Mean Corpuscular Volume 79.5 fl (81-99); Mean Platelet Volume 9.1 fL (7.4-10.4); Monocytes # 0.5 10^3/uL (0.2-0.9); Monocytes % 11.5 %; Neutrophils # 2.35 10^3/uL (1.8-7.7); Neutrophils % 52.8 %; Nucleated Red Blood Cells % 0 %; Platelet Count 184 10^3/cmm (130-400); Red Blood Count 3.56 10^6/uL (4.1-5.3); Red Cell Distribution Width 21.7 % (12.1-15.1); White Blood Count 4.4 10^3/uL (4.0-10.0)
[2022-08-03] MEDS: levothyroxine 112 mcg Tablet PO (04:59)
[2022-08-03] MEDS: predniSONE 10 mg Tablet PO (05:00)
[2022-08-03 05:15] LABS: Alanine Aminotransferase 8 U/L (0-33); Albumin Level 2.7 g/dL (3.5-5.2); Alkaline Phosphatase 96 U/L (35-105); Blood Urea Nitrogen 7 mg/dL (8-23); Calcium 7.6 mg/dL (8.5-10.5); Carbon Dioxide 23 mmol/L (22-29); Chloride 106 mmol/L (98-107); Globulin 2.3 g/dL (1.3-4.6); Glomerular Filtration Rate 83.2 mL/min (90-130); Glucose 86 mg/dL (65-115); Magnesium 1.7 mg/dL (1.7-2.3); Osmolality Calculated 283 mOsm/kg (285-295); Phosphorus 1.9 mg/dL (2.5-4.5); Sodium 138 mmol/L (136-145); Total Bilirubin 0.2 mg/dL (0.15-1.2)
[2022-08-03 05:19] LABS: Lactic Sepsis W/Reflex 0.8 mmol/L (0.5-2.2)
[2022-08-03 05:22] LABS: Anion Gap 13.6 (5-19); Aspartate Amino Transferase 23 U/L (0-32); Potassium 4.6 mmol/L (3.5-5.1)
[2022-08-03] MEDS: morphine 4 mg/mL SDV 1 mL 2 MG IVP ×2 (07:34→11:50)
[2022-08-03 08:12] LABS: Basophils % 0.7 %; Eosinophils # 0.2 10^3/uL (0.0-0.8); Eosinophils % 4.3 %; Hematocrit 32.1 % (37.0-47.0); Hemoglobin 9.5 g/dL (11.5-15.3); Lymphocytes # 0.9 10^3/uL (0.8-4.8); Lymphocytes % 20.4 %; Mean Corpuscular HGB Conc 29.6 g/dL (30.0-36.0); Mean Corpuscular Hemoglobin 24.8 pg (28.0-34.0); Mean Corpuscular Volume 83.8 fl (81-99); Mean Platelet Volume 9.4 fL (7.4-10.4); Monocytes # 0.4 10^3/uL (0.2-0.9); Monocytes % 9.9 %; Neutrophils # 2.88 10^3/uL (1.8-7.7); Neutrophils % 64.5 %; Nucleated Red Blood Cells % 0 %; Platelet Count 210 10^3/cmm (130-400); Red Blood Count 3.83 10^6/uL (4.1-5.3); White Blood Count 4.5 10^3/uL (4.0-10.0)
[2022-08-03] MEDS: sucralfate 1 gm Tablet PO (08:55)
[2022-08-03] MEDS: magnesium hydroxide 30 mL UDC PO (08:55)
[2022-08-03] MEDS: gabapentin 300 mg Capsule PO ×2 (08:55→14:49)
[2022-08-03] MEDS: pantoprazole 40 mg SDV IVP (08:56)
[2022-08-03] MEDS: oxyCODONE 5 mg IR Tab/Cap PO (13:28)
--- NOTE | 2022-08-03 14:47 | PM.DCS ---
Discharge Providers Date of Admission: 08/02/22 20:31 Date of Discharge: August 03, 2022 Attending Provider at Admission: Bernard Ray MD Attending Provider at Discharge: Lisa No MD Primary Care Provider: Kaiser Lisa MD Diagnoses at Discharge Discharge Diagnosis (1) Colic, biliary: Details from hospital stay: Improved Status: Acute (2) Acute hypokalemia: Details from hospital stay: resolved Status: Resolved (3) Hyponatremia: Details from hospital stay: resolved Status: Resolved (4) Nausea & vomiting: Details from hospital stay: resolved Status: Resolved (5) Chronic upper abdominal pain: Details from hospital stay: chronic Status: Acute (6) UTI (urinary tract infection): Details from hospital stay: ruled out, contaminated specimen received rocephin empirically Status: Resolved (7) Constipation: Details from hospital stay: likely a contributor to #1 and #4 Status: Acute Reason for Visit Reason for Visit: vomiting blood Brief History: Per Dr Ray: Tosha Perry is a 67 year old female with a past medical history of sepsis, pneumonia, history of extraparametal syndromes, history of chronic pain history of chronic renal failure, hyperlipidemia, hypothyroidism, iron deficiency anemia who presents [facility] due to 3-week history of nausea, vomiting, diarrhea, right upper quadrant pain.? She tells me that she has chronic right upper quadrant pain, she has a history of chronic CBD dilatation and has had multiple MRCP's which potentially have shown stones but no surgeon has been able to retrieve them according to retrieve stone, she has been dealing this for a long time, but for the last 3 weeks she has had right upper quadrant pain, nausea, vomiting, which for the last 24 hours has become very severe she is not able to keep anything down Hospital Course Hospital Course Mrs. Perry was admitted to a medical bed. She received IV fluids, potassium replacement, antiemetics and pain medications. CT of the abdomen showed that the common bile duct was not as dilated as it had been previously. It did show significant amount of stooling. Discussed with patient fiber laxatives and prunes or prune juice which she states have worked well for her in the past. Labs normalized by the morning after admission. Patient's Lasix dose has been decreased from 80 mg daily to 40 mg when needed. Encourage patient to make sure she takes potassium when she does take Lasix also. There was some concern about possibility of urinary tract infection but specimen appeared contaminated. She did receive empiric treatment with Rocephin but no antibiotics have been continued at discharge. She is to follow-up with her primary care provider. Recommend repeat electrolytes in a week along with blood pressure. On the day of discharge patient was awake and alert. She tolerated advance diet and did not have significant abdominal pain. Vital signs were stable. Discharge Data Studies Completed and Pending Completed Studies During Hospitalization Category Date Time Status CT abdomen pelvis w con* [id number] Stat Cat Scan 08/02/22 20:43 Completed XR KUB [id number] Stat Exams 08/02/22 15:26 Completed Radiology Impressions KUB X-Ray 08/02/22 15:26 IMPRESSION: 1. No acute GI abnormality. 2. Cholecystectomy 3. Lumbar spine kyphosis L4 and L5 Abdomen/Pelvis CT 08/02/22 20:43 IMPRESSION: 1. Negative for acute inflammatory process in the abdomen or pelvis. 2. Common bile duct dilation, decreased compared to prior exam, may be secondary to prior cholecystectomy. 3. Bibasilar atelectasis. 4. Moderate hiatal hernia. 5. Cholecystectomy. 6. Diverticulosis without diverticulitis. 7. Constipation. 8. L4 and L5 vertebroplasty changes. 9. Left kidney cyst, negative for follow-up advised. Laboratory Results WBC 4.5 10^3/uL (4.0-10.0) 08/03/22 08:00 RBC 3.83 10^6/uL (4.1-5.3) L 08/03/22 08:00 Hgb 9.5 g/dL (11.5-15.3) L 08/03/22 08:00 Hct 32.1 % (37.0-47.0) L 08/03/22 08:00 MCV 83.8 fl (81-99) D 08/03/22 08:00 MCH 24.8 pg (28.0-34.0) L 08/03/22 08:00 MCHC 29.6 g/dL (30.0-36.0) L 08/03/22 08:00 RDW 22.0 % (12.1-15.1) H 08/03/22 08:00 Plt Count 210 10^3/cmm (130-400) 08/03/22 08:00 MPV 9.4 fL (7.4-10.4) 08/03/22 08:00 Neut % (Auto) 64.5 % 08/03/22 08:00 Lymph % (Auto) 20.4 % 08/03/22 08:00 Hardy % (Auto) 9.9 % 08/03/22 08:00 Eos % (Auto) 4.3 % 08/03/22 08:00 Baso % (Auto) 0.7 % 08/03/22 08:00 Neut # (Auto) 2.88 10^3/uL (1.8-7.7) 08/03/22 08:00 Lymph # (Auto) 0.9 10^3/uL (0.8-4.8) 08/03/22 08:00 Hardy # (Auto) 0.4 10^3/uL (0.2-0.9) 08/03/22 08:00 Eos # (Auto) 0.2 10^3/uL (0.0-0.8) 08/03/22 08:00 Baso # (Auto) 0.0 10^3/uL (0.0-0.1) 08/03/22 08:00 Nucleated RBC % (auto) 0 % 08/03/22 08:00 Nucleated RBCs # 0.0 /100WBC 08/03/22 08:00 PT 12.80 SECONDS (12.1-14.9) 08/02/22 11:05 INR 0.94 (0.8-1.2) 08/02/22 11:05 APTT 27.3 SECONDS (23.9-36.7) 08/02/22 11:05 Sodium 138 mmol/L (136-145) 08/03/22 04:45 Potassium 4.6 mmol/L (3.5-5.1) 08/03/22 04:45 Chloride 106 mmol/L (98-107) 08/03/22 04:45 Carbon Dioxide 23 mmol/L (22-29) 08/03/22 04:45 Anion Gap 13.6 (5-19) 08/03/22 04:45 BUN 7 mg/dL (8-23) L 08/03/22 04:45 Creatinine 0.7 mg/dL (0.5-0.9) 08/03/22 04:45 GFR Calculation 83.2 mL/min (90-130) L 08/03/22 04:45 Glucose 86 mg/dL (65-115) 08/03/22 04:45 Estimat Average Glucose 123 08/02/22 11:05 Hemoglobin A1c 5.9 % (4.0-6.0) 08/02/22 11:05 Calculated Osmolality 283 mOsm/kg (285-295) L 08/03/22 04:45 Lactic Acid 0.8 mmol/L (0.5-2.2) 08/03/22 04:45 Calcium 7.6 mg/dL (8.5-10.5) L 08/03/22 04:45 Phosphorus 1.9 mg/dL (2.5-4.5) L 08/03/22 04:45 Magnesium 1.7 mg/dL (1.7-2.3) 08/03/22 04:45 Total Bilirubin 0.2 mg/dL (0.15-1.2) 08/03/22 04:45 GGT 21 U/L (5-36) 08/02/22 11:07 AST 23 U/L (0-32) 08/03/22 04:45 ALT 8 U/L (0-33) 08/03/22 04:45 Alkaline Phosphatase 96 U/L (35-105) 08/03/22 04:45 C-Reactive Protein 26.6 mg/L (0.0-4.9) H 08/02/22 11:07 Total Protein 5.0 g/dL (6.6-8.7) L D 08/03/22 04:45 Albumin 2.7 g/dL (3.5-5.2) L 08/03/22 04:45 Globulin 2.3 g/dL (1.3-4.6) 08/03/22 04:45 Triglycerides 145 mg/dL (0-150) 08/02/22 11:07 Cholesterol 263 mg/dL (0-200) H 08/02/22 11:07 LDL Cholesterol, Calc 185 mg/dL (50-129) H 08/02/22 11:07 HDL Cholesterol 49 mg/dL (60-100) L 08/02/22 11:07 LDL/HDL Ratio 3.78 RATIO (0.00-3.22) H 08/02/22 11:07 Cholesterol/HDL Ratio 5.37 mg/dL (0.0-4.40) H 08/02/22 11:07 Amylase 78 U/L (28-100) 08/02/22 11:07 Lipase 34 U/L (13-60) 08/02/22 11:05 Procalcitonin 0.07 ng/mL (0-0.5) 08/02/22 11:07 TSH 1.37 uIU/mL (0.27-4.20) 08/02/22 11:07 Urine Color Yellow (Yellow) 08/02/22 18:20 Urine Appearance Sl hazy (CLEAR) A 08/02/22 18:20 Urine pH 7 (5-7) 08/02/22 18:20 Ur Specific Spelter 1.010 (1.005-1.030) 08/02/22 18:20 Urine Protein Neg (Negative) 08/02/22 18:20 Urine Glucose (UA) Norm (Normal) 08/02/22 18:20 Urine Ketones Negative (Negative) 08/02/22 18:20 Urine Blood Neg (Negative) 08/02/22 18:20 Urine Nitrate Negative (Negative) 08/02/22 18:20 Urine Bilirubin Neg (Negative) 08/02/22 18:20 Urine Urobilinogen Norm mg/dL (Negative) 08/02/22 18:20 Ur Leukocyte Esterase 1+ (Negative) H 08/02/22 18:20 Urine RBC 0-4 /hpf (0-2) H 08/02/22 18:20 Urine WBC 10-15 /hpf (0-5) H 08/02/22 18:20 Ur Squamous Epith Cells 10-15 /hpf (0-5) H 08/02/22 18:20 Amorphous Sediment Not Reportable 08/02/22 18:20 Urine Bacteria 1+ /hpf (NONE) H 08/02/22 18:20 Vitals Last Vital Signs Temp 98.3 F 08/03/22 12:00 Pulse 50 L 08/03/22 12:00 Resp 18 08/03/22 13:28 BP 125/67 08/03/22 12:00 Pulse Ox 97 08/03/22 12:00 O2 Del Method Room Air 08/03/22 12:00 Discharge Plan Discharge Patient Disposition: Home Condition: Stable Prescriptions: Continued Proventil HFA 90 mcg/actuation HFA aerosol inhaler 1 inh inhalation Q6H PRN (Reason: shortness of breath or wheezing) Qty: 6.7 5RF levothyroxine 112 mcg tablet 112 mcg PO QAM Qty: 90 1RF gabapentin 300 mg capsule 300 mg PO TID Qty: 90 5RF baclofen 10 mg tablet 10 mg PO BID PRN (Reason: Muscle Spasm) 30 Days Qty: 30 0RF oxycodone 5 mg tablet 5 mg PO TID PRN (Reason: pain) 30 Days Qty: 90 0RF Rx Instructions: Refill on or after 30-day interval. latanoprost 0.005 % drops 1 drp ophthalmic (eye) QPM prednisone 10 mg tablet 10 mg PO QAM leflunomide 20 mg tablet 20 mg PO QAM mirtazapine 15 mg tablet 15 mg PO BEDTIME Dexilant 30 mg capsule,biphase delayed releas 30 mg PO BEDTIME doxepin 6 mg tablet 6 mg PO BEDTIME PRN (Reason: sleep) ondansetron 4 mg tablet,disintegrating 4 mg PO DAILY PRN (Reason: Nausea And Vomiting) Qty: 20 0RF potassium chloride 10 mEq Tablet Extended Release 20 meq PO DAILY PRN (Reason: when takes lasix) Hold Instructions: Resume on 04/29/22. sucralfate [Carafate] 1 gram tablet 1 g PO BID 28 Days Qty: 56 0RF Changed Lasix 40 mg tablet 40 mg PO DAILY PRN (Reason: edema) Qty: 1 0RF Rx Instructions: only take 40 mg as needed for edema rather than 80mg No Action ropinirole 1 mg tablet 5 mg PO .q hs 30 Days Qty: 30 3RF ferrous sulfate 324 mg (65 mg iron) tablet,delayed release (DR/EC) 324 mg PO BID Qty: 60 2RF Discharge Orders: Discharge Order (Routine); Ordered 08/03/22 Ordered By: Lisa No Other Ambulatory Orders: Basic Metabolic Panel (Routine) Timeframe: 1 Week Facility: [facility] - Location: Lab - Main Lab Ordered By: Lisa No Referrals: Kaiser Lisa MD [Primary Care Provider] - 08/06/22 9:00 am Discharge Diet: Advance as tolerated Discharge Activity: Increase activity as tolerated Patient Instructions: Constipation (DC), Biliary Colic (GEN), Abdominal Pain (ED), Opioid Safety, Pain Management Activity Restrictions/Additional Instructions: You presented with abdominal pain, nausea and vomiting. CT of your abdomen actually showed your common bile duct was not as dilated as it has been in the past. You did have evidence of constipation. As we discussed consider fiber laxatives and prune juice or prunes to help you have regular bowel movements. You were admitted because you were dehydrated and had very low potassium. Labs have normalized at the time of discharge. I have recommended you decrease the usual as needed dose of Lasix that you take from 80 to 40 mg. Make sure you take potassium if you take Lasix. Your phosphorus is a little low but I expect that will improve as your appetite improves. There was concern you may have a urinary tract infection and you did receive a dose of Rocephin. There is no need to continue antibiotics at this time. Follow-up with your primary care provider as scheduled. Recommend repeating electrolytes in a week or so. Discharge Attestations Time Spent in Discharge Care*: greater than 30 min Status at Discharge: Cognitive status at discharge: cognitively intact, Behavioral status at discharge: cooperative, Quality Metrics Clinical Quality Measures [ No reported AMI, CVA or VTE this stay] Coding Level of Care Code 35254 Diagnoses Colic, biliary K80.50 Acute hypokalemia E87.6 Hyponatremia E87.1 Nausea & vomiting R11.2 Chronic upper abdominal pain R10.10; G89.29 UTI (urinary tract infection) N39.0 Constipation K59.00
== END 2022-08-03 15:40 | disposition home or self-care (01) ==
LOC: ER 20:29 → MEDSURG 20:46
PROVIDERS: Emergency Medicine; Admitting Provider Family Medicine; Emergency Provider Emergency Medicine; PCP Family Medicine Adult Medicine; Visit Provider Hospitalist
DX: K80.50 Calculus of bile duct without cholangitis or cholecystitis without obstruction (principal); E87.6 Hypokalemia; E87.1 Hypo-osmolality and hyponatremia; E86.0 Dehydration; R11.2 Nausea with vomiting, unspecified; R10.11 Right upper quadrant pain; G89.29 Other chronic pain; N39.0 Urinary tract infection, site not specified; E78.5 Hyperlipidemia, unspecified; N18.30 Chronic kidney disease, stage 3 unspecified; E03.9 Hypothyroidism, unspecified; R19.7 Diarrhea, unspecified; K59.00 Constipation, unspecified; Z79.899 Other long term (current) drug therapy; Z87.891 Personal history of nicotine dependence; Z86.16 Personal history of COVID-19
CPT/HCPCS: 36415; 74018; 74177; 80053; 80061; 81001; 82150; 82977; 83036; 83605; 83690; 83735; 84100; 84145; 84443; 85025; 85610; 85730; 86140; 94664; 96365; 96366; 96372; 96375; 96376; 99285; C9113; G0378; J0696; J1170; J1650; J2270; J2405; J3480; J3490; J7030; J7040; J7042; J7512; Q9967

== ENCOUNTER → 2022-08-20 13:37 | Outpatient (BNVA) | payer MEDICARE, OTHER, SELFPAY | PROVIDERS: PCP Family Medicine Adult Medicine; Visit Provider Orthopaedic Surgery | DX: M54.12 Radiculopathy, cervical region (principal); M47.12 Other spondylosis with myelopathy, cervical region | CPT/HCPCS: 99214 ==

== ENCOUNTER → 2022-09-09 12:57 | Outpatient (BNVA) | payer MEDICARE, OTHER, SELFPAY | PROVIDERS: PCP Family Medicine Adult Medicine; Visit Provider Internal Medicine Rheumatology | DX: M05.79 Rheumatoid arthritis with rheumatoid factor of multiple sites without organ or systems involvement (principal); Z79.899 Other long term (current) drug therapy; Z71.85 Encounter for immunization safety counseling | CPT/HCPCS: 99214 ==

== ENCOUNTER 2022-09-12 11:31 | Emergency (ER) | payer MEDICARE, OTHER, SELFPAY ==
[2022-09-12 11:37] VITALS: PULSE 77; RESP 18; TEMP 36.8; O2SAT 97
--- NOTE | 2022-09-12 12:00 | CTR_ITS ---
PROCEDURE INFORMATION: Exam: CT Abdomen And Pelvis With Contrast Exam date and time: 09/12/2022 1:48 PM Age: 67 years old Clinical indication: Abdominal pain; Localized; Right; Additional info: Right sided abdominal tenderness, n/v/d TECHNIQUE: Imaging protocol: Computed tomography of the abdomen and pelvis with contrast. Radiation optimization: All CT scans at this facility use at least one of these dose optimization techniques: automated exposure control; mA and/or kV adjustment per patient size (includes targeted exams where dose is matched to clinical indication); or iterative reconstruction. Contrast material: OMNI 350; Contrast volume: 100 ml; Contrast route: INTRAVENOUS (IV); REPORTING DATA: Count of CT and Cardiac NM exams in prior 12 months: This patient has received 7 known CTs and 0 known cardiac nuclear medicine studies in the 12 months prior to the current study. COMPARISON: 1. [place] [id number] 04/13/2022 3:[address] abdomen pelvis w con* [id number] 08/02/2022 10:08 PM RADIATION DOSE METRICS: Total DLP (mGy-cm): 378.53 FINDINGS: Lungs: There is subsegmental atelectasis in the right middle lobe. There are multiple noncalcified pulmonary nodules in the right lower lobe measuring up to 10 mm on series 4, image 17. The nodules are new since 04/13/2022 and stable since 08/02/2022. The ill-defined opacity in the mid to lower lungs seen on 04/13/2022 has resolved. Diaphragm: There is a moderate size sliding-type hiatal hernia. Liver: The liver is normal. Gallbladder and bile ducts: The gallbladder is absent. There is moderate dilation of the common bile duct and central intrahepatic ducts which may represent reservoir effect from cholecystectomy. Pancreas: The pancreas is unremarkable. Spleen: The spleen is unremarkable. Adrenal glands: The adrenal glands are unremarkable. Kidneys and ureters: The kidneys are unremarkable. No hydronephrosis or stones. No ureteral dilation. Stomach and bowel: The stomach is decompressed, preventing meaningful evaluation of wall thickness. There is mild fluid distention of proximal to mid small bowel gradually tapering distally to the decompressed terminal ileum. There is no transition point to suggest obstruction. There is mild diffuse mucosal hyperemia in the small bowel. No bowel wall thickening or perienteric edema. The colon is decompressed limiting assessment of wall thickness. The ascending and transverse colon contain a small volume of fluid. The descending and sigmoid colon are decompressed, limiting assessment of wall thickness. There is no sign of colonic inflammation. Appendix: The appendix is not visible. Intraperitoneal space: There is no free air or significant intraperitoneal free fluid. Vasculature: There is moderate aortic atherosclerotic disease. The portal, splenic and superior mesenteric veins are patent. Lymph nodes: There is no lymphadenopathy in the retroperitoneum, mesentery, pelvis or inguinal regions. Urinary bladder: The urinary bladder is unremarkable. Reproductive: The uterus is absent. There is no adnexal mass or large cyst. Bones/joints: There is moderate degenerative disease in the lower lumbar spine. There is a mild stable inferior endplate compression fracture at L4. There is vertebroplasty cement in the L4 and L5 vertebra. The pelvis and hips are unremarkable. Soft tissues: The abdominal wall is intact. CT/CT abdomen pelvis w con* [id number] IMPRESSION: 1. Nonspecific findings in the small bowel are suggestive of diffuse enteritis. There is no sign of obstruction. 2. Right lower lung nodules measuring up to 10 mm.For patients at low risk (minimal or absent history of smoking and of other known risk factors), recommend CT Chest at 3-6 months, then consider CT Chest at 18-24 months. For patients at high risk (history of smoking or of other known risk factors), recommend CT Chest at 3-6 months, then CT Chest at 18-24 months. (Reference: Ran) 3. Incidental findings above. REFERENCES: Ran Burciaga, et al. Guidelines for Management of Incidental Pulmonary Nodules Detected on CT Images: From the Fleischner Society 2017. Radiology. 2017;284(1):228-243.
--- NOTE | 2022-09-12 12:02 | ED_ITS ---
HPI - Abdominal Pain General: Chief Complaint: Abdominal Pain Stated Complaint: N/V/D Abd Pain Time Seen by Provider: 09/12/22 11:55 History of Present Illness: Patient is a 67-year-old female comes to the ED with abdominal pain. Patient has a past medical history of cholecystectomy, appendectomy and pancreatitis. Symptoms started at 4 AM this morning. She reports having intense abdominal pain on the right side of her abdomen. Endorses nausea vomiting and diarrhea as well. Patient says she has had symptoms like this before. Denies any fevers, dysuria or hematuria. Associated Symptoms: Reports diarrhea, nausea and vomiting; Denies chills, constipation, dysuria, fever(s), hematochezia and hematuria Review of Systems Const: Denies: fever(s), chills or fatigue Eyes: Denies: change in vision or eye discomfort ENMT: Denies: throat pain, odynophagia, nasal discharge or nasal congestion Card: Denies: chest pain, palpitations, edema, swelling of feet/ankles, dyspnea on exertion or orthopnea Resp: Denies: dyspnea, productive cough or non-productive cough GI: Reports: abdominal pain, nausea, vomiting and diarrhea; Denies: constipation or hematochezia : Denies: flank pain, dysuria or hematuria Musc: Denies: neck pain, back pain or extremity swelling Skin/Breast: Denies: rash or new lesions Neuro: Denies: headache(s), numbness in extremities or weakness in extremities PFS ED PFSH: Medical History Abnormal movements Abnormal toxicological findings Acute encephalopathy Acute renal failure Acute respiratory failure with hypoxemia Adjustment insomnia ZAHRA (acute kidney injury) Altered mental status AMS (altered mental status) Anemia Anxiety and depression Aspiration into airway Bilateral lower extremity edema Bradycardia Chronic back pain Chronic upper abdominal pain CKD (chronic kidney disease) stage 3, GFR 30-59 ml/min Coffee ground emesis COVID-19 Extrapyramidal and movement disorder High risk medication use Hyperlipidemia Hypokalemia Hypomagnesemia Hypothyroidism Iron deficiency anemia Lung nodule, solitary Multifocal pneumonia Prediabetes Prolonged QT interval Rheumatoid arthritis RLS (restless legs syndrome) Seropositive rheumatoid arthritis of multiple sites Substance or medication-induced sleep disorder, insomnia type Surgical History History of ankle surgery left History of appendectomy History of delivery History of cholecystectomy History of hysterectomy with bilateral oophorectomy Previous back surgery Social History Smoking and tobacco status: former smoker Alcohol intake: current Alcohol intake frequency: holidays/special occasions only Physical Exam Const: COMMON NORMALS: patient oriented x3 and alert GENERAL APPEARANCE: cooperative and comfortable HENMT: COMMON NORMALS: normocephalic HEAD & SCALP: normocephalic MOUTH: Normal oral and palatal mucosa present THROAT: posterior oropharynx normal and uvula midline Neck/C-Spine: COMMON NORMALS: supple GENERAL: Yes normal visual inspection Resp: COMMON NORMALS: normal respiratory effort, No retractions, No use of accessory muscles and clear to auscultation bilaterally AUSCULTATION: clear to auscultation bilaterally Cardio: COMMON NORMALS: regular rate, regular rhythm, S1 normal heart sound present, S2 normal heart sound present, No gallops present (Cardio), No clicks present (Cardio), No murmurs present (Cardio) and Peripheral pulses 2+ throughout RATE: regular rate RHYTHM: regular rhythm HEART SOUNDS: S1 normal heart sound present and S2 normal heart sound present PERIPHERAL PULS ES: Peripheral pulses 2+ throughout GI: COMMON NORMALS: Normal to inspection, nondistended, normoactive bowel sounds present, Soft to palpation and no masses PALPATION: Yes Soft to palpation and Yes Tenderness to palpation present (GI) Details: RLQ and RUQ : COMMON NORMALS: Yes no CVA tenderness BLADDER/KIDNEY EXAM: Yes no CVA tenderness Back/Pelvis: COMMON NORMALS: no CVA tenderness Extremity: COMMON NORMALS: normal to inspection Neuro: COMMON NORMALS: patient oriented x3 SENSORIUM/ORIENTATION: Yes alert GAIT: Yes Normal gait present Skin: GENERAL SKIN EXAM: dry skin Course Vital Signs: Vital signs: Vital Signs Temperature 98.2 F 09/12/22 11:37 Pulse Rate 56 L 09/12/22 13:32 Respiratory Rate 16 09/12/22 13:32 Blood Pressure 145/78 09/12/22 13:32 Pulse Oximetry 99 09/12/22 13:32 Oxygen Delivery Me thod Room Air 09/12/22 13:32 MDM - Abdominal Pain Medical Decision Making Patient is a 67-year-old female comes to the ED with abdominal pain. Patient has a past medical history of cholecystectomy, appendectomy and pancreatitis. Symptoms started at 4 AM this morning. She reports having intense abdominal pain on the right side of her abdomen. Endorses nausea vomiting and diarrhea as well. Patient says she has had symptoms like this before. Denies any fevers, dysuria or hematuria. Vitals are stable. Patient appears nontoxic in no acute distress. He has right-sided abdominal tenderness. Rest of exam is benign. CBC, CMP and lipase were all unremarkable. CT of abdomen pelvis is pending. Patient was given a liter of IV fluids and nausea and pain meds and her symptoms resolved. Patient was ready to go home and wanted to sign out AMA. I told patient that I do not have the CT results and that she could have something more serious going on and patient still wanted to leave and said she will sign AMA form. Patient was discharged home AMA and sent with a prescription for nausea med. Follow-up with PCP in the next week for reevaluation. Return ED precau tions given. Lab Data I reviewed the patient's lab results. 09/12/22 11:25 09/12/22 11:25 Labs/Radiology: Radiology Impressions Abdomen/Pelvis CT 09/12/22 12:00 IMPRESSION: 1. Nonspecific findings in the small bowel are suggestive of diffuse enteritis. There is no sign of obstruction. 2. Right lower lung nodules measuring up to 10 mm.For patients at low risk (minimal or absent history of smoking and of other known risk factors), recommend CT Chest at 3-6 months, then consider CT Chest at 18-24 months. For patients at high risk (history of smoking or of other known risk factors), recommend CT Chest at 3-6 months, then CT Chest at 18-24 months. (Reference: Ran) 3. Incidental findings above. REFERENCES: Ran Burciaga, et al. Guidelines for Management of Incidental Pulmonary Nodules Detected on CT Images: From the Fleischner Society 2017. Radiology. 2017;284(1):228-243. Laboratory Results WBC 6.2 10^3/uL (4.0-10.0) 09/12/22 11:25 RBC 4.42 10^6/uL (4.1-5.3) 09/12/22 11:25 Hgb 10.9 g/dL (11.5-15.3) L 09/12/22 11:25 Hct 35.5 % (37.0-47.0) L 09/12/22 11:25 MCV 80.3 fl (81-99) L 09/12/22 11:25 MCH 24.7 pg (28.0-34.0) L 09/12/22 11:25 MCHC 30.7 g/dL (30.0-36.0) 09/12/22 11:25 RDW 19.2 % (12.1-15.1) H 09/12/22 11:25 Plt Count 357 10^3/cmm (130-400) 09/12/22 11:25 MPV 9.8 fL (7.4-10.4) 09/12/22 11:25 Neut % (Auto) 59.7 % 09/12/22 11:25 Lymph % (Auto) 28.0 % 09/12/22 11:25 [place] % (Auto) 9.2 % 09/12/22 11:25 Eos % (Auto) 2.3 % 09/12/22 11:25 Baso % (Auto) 0.5 % 09/12/22 11:25 Neut # (Auto) 3.72 10^3/uL (1.8-7.7) 09/12/22 11:25 Lymph # (Auto) 1.7 10^3/uL (0.8-4.8) 09/12/22 11:25 [place] # (Auto) 0.6 10^3/uL (0.2-0.9) 09/12/22 11:25 Eos # (Auto) 0.1 10^3/uL (0.0-0.8) 09/12/22 11:25 Baso # (Auto) 0.0 10^3/uL (0.0-0.1) 09/12/22 11:25 Nucleated RBC % (auto) 0 % 09/12/22 11:25 Nucleated RBCs # 0.0 /100WBC 09/12/22 11:25 Sodium 138 mmol/L (136-145) 09/12/22 11:25 Potassium 3.3 mmol/L (3.5-5.1) L 09/12/22 11:25 Chloride 100 mmol/L (98-107) 09/12/22 11:25 Carbon Dioxide 24 mmol/L (22-29) 09/12/22 11:25 Anion Gap 17.3 (5-19) 09/12/22 11:25 BUN 13 mg/dL (8-23) 09/12/22 11:25 Creatinine 0.7 mg/dL (0.5-0.9) 09/12/22 11:25 GFR Calculation 83.2 mL/min (90-130) L 09/12/22 11:25 Glucose 85 mg/dL (65-115) 09/12/22 11:25 Calculated Osmolality 285 mOsm/kg (285-295) 09/12/22 11:25 Calcium 9.4 mg/dL (8.5-10.5) 09/12/22 11:25 Total Bilirubin 0.2 mg/dL (0.15-1.2) 09/12/22 11:25 AST 16 U/L (0-32) 09/12/22 11:25 ALT 7 U/L (0-33) 09/12/22 11:25 Alkaline Phosphatase 126 U/L (35-105) H 09/12/22 11:25 Total Protein 7.6 g/dL (6.6-8.7) 09/12/22 11:25 Albumin 3.8 g/dL (3.5-5.2) 09/12/22 11:25 Globulin 3.8 g/dL (1.3-4.6) 09/12/22 11:25 Lipase 74 U/L (13-60) H 09/12/22 11:25 Discharge Plan Discharge Patient Disposition: Left Against Medical Advice Clinical Impression: Abdominal pain, Nausea & vomiting Condition: Stable Prescriptions: New metoclopramide HCl 10 mg tablet 10 mg PO Q6H PRN (Reason: nausea and vomiting) Qty: 15 0RF No Action Proventil HFA 90 mcg/actuation HFA aerosol inhaler 1 inh inhalation Q6H PRN (Reason: shortness of breath or wheezing) Qty: 6.7 5RF levothyroxine 112 mcg tablet 112 mcg PO QAM Qty: 90 1RF gabapentin 300 mg capsule 300 mg PO TID Qty: 90 5RF dexlansoprazole [Dexilant] 30 mg capsule,biphase delayed releas 30 mg PO BEDTIME Qty: 90 1RF sulfasalazine 500 mg tablet 0.5 g PO BID Qty: 60 3RF Rx Instructions: Take 1 tab daily x1wk then stay on 1 tab twice daily.... give with food (meal/snack) leflunomide 20 mg tablet 20 mg PO QAM Qty: 90 0RF prednisone 10 mg tablet See Rx Instructions PO .COMPLEX Qty: 90 1RF Rx Instructions: take 3tabs QD x5days, then 2tabs QD x5days, 1.5tabs QD x5days, 1 tab QD [id number] then stay on 0.5tab daily orally; baclofen 10 mg tablet 10 mg PO BID PRN (Reason: Muscle Spasm) 30 Days Qty: 30 0RF ropinirole 1 mg tablet 5 mg PO .q hs 30 Days Qty: 30 3RF ferrous sulfate 324 mg (65 mg iron) tablet,delayed release (DR/EC) 324 mg PO BID Qty: 60 2RF ondansetron 4 mg tablet,disintegrating 4 mg PO DAILY PRN (Reason: Nausea And Vomiting) Qty: 30 2RF oxycodone 5 mg tablet 5 mg PO TID PRN (Reason: pain) 30 Days Qty: 90 0RF Rx Instructions: Refill on or after 30-day interval. latanoprost 0.005 % drops 1 drp ophthalmic (eye) QPM mirtazapine 15 mg tablet 15 mg PO BEDTIME doxepin 6 mg tablet 6 mg PO BEDTIME PRN (Reason: sleep) Lasix 40 mg tablet 40 mg PO DAILY PRN (Reason: edema) Qty: 1 0RF Rx Instructions: only take 40 mg as needed for edema rather than 80mg potassium chloride 10 mEq Tablet Extended Release 20 meq PO DAILY PRN (Reason: when takes lasix) Hold Instructions: Resume on 04/29/22. Referrals: Kaiser Lisa MD [Primary Care Provider] - Discharge Diet: Advance as tolerated Discharge Activity: Increase activity as tolerated Patient Instructions: Abdominal Pain (ED) Activity Restrictions/Additional Instructions: Follow-up with medical provider as directed. Take medications as prescribed. Return to the ER or your medical provider if condition worsens. Please read and understand discharge instructions. Thank you for choosing [facility] for your healthcare needs today. Please realize this is an emergency room and that we are providing you with a medical screening exam and this may not be complete and all inclusive of all the testing and or work up that you may need to determine your ailment or severity of your illness. It is very important that you follow up as instructed or that you return to the Emergency Department should you have concerns or if your condition changes or worsens in any way. Coding Level of Care Code ED Upholstery Covers Inspector for Maribel Sweet
[2022-09-12 12:29] VITALS: BP 145/78; PULSE 65; RESP 16; O2SAT 96
[2022-09-12 12:37] LABS: Basophils % 0.5 %; Eosinophils # 0.1 10^3/uL (0.0-0.8); Eosinophils % 2.3 %; Hematocrit 35.5 % (37.0-47.0); Hemoglobin 10.9 g/dL (11.5-15.3); Lymphocytes # 1.7 10^3/uL (0.8-4.8); Mean Corpuscular HGB Conc 30.7 g/dL (30.0-36.0); Mean Corpuscular Hemoglobin 24.7 pg (28.0-34.0); Mean Corpuscular Volume 80.3 fl (81-99); Mean Platelet Volume 9.8 fL (7.4-10.4); Monocytes # 0.6 10^3/uL (0.2-0.9); Monocytes % 9.2 %; Neutrophils # 3.72 10^3/uL (1.8-7.7); Neutrophils % 59.7 %; Nucleated Red Blood Cells % 0 %; Platelet Count 357 10^3/cmm (130-400); Red Blood Count 4.42 10^6/uL (4.1-5.3); Red Cell Distribution Width 19.2 % (12.1-15.1); White Blood Count 6.2 10^3/uL (4.0-10.0)
[2022-09-12 12:44] VITALS: RESP 18
[2022-09-12] MEDS: morphine 4 mg/mL SDV 1 mL IVP (12:44)
[2022-09-12] MEDS: sodium chloride 0.9% 1,000 ML 999 ML IV (12:44)
[2022-09-12] MEDS: metoclopramide 5 mg/mL SDV 2 mL 10 MG IVP (12:45)
[2022-09-12 13:32] VITALS: BP 145/78; PULSE 56; RESP 16; O2SAT 99
[2022-09-12 13:40] LABS: Alanine Aminotransferase 7 U/L (0-33); Albumin Level 3.8 g/dL (3.5-5.2); Alkaline Phosphatase 126 U/L (35-105); Anion Gap 17.3 (5-19); Aspartate Amino Transferase 16 U/L (0-32); Blood Urea Nitrogen 13 mg/dL (8-23); Calcium 9.4 mg/dL (8.5-10.5); Carbon Dioxide 24 mmol/L (22-29); Chloride 100 mmol/L (98-107); Globulin 3.8 g/dL (1.3-4.6); Glomerular Filtration Rate 83.2 mL/min (90-130); Glucose 85 mg/dL (65-115); Lipase 74 U/L (13-60); Osmolality Calculated 285 mOsm/kg (285-295); Potassium 3.3 mmol/L (3.5-5.1); Sodium 138 mmol/L (136-145); Total Bilirubin 0.2 mg/dL (0.15-1.2); Total Protein 7.6 g/dL (6.6-8.7)
== END 2022-09-12 14:36 | disposition left against medical advice (07) ==
PROVIDERS: Emergency Medicine; Emergency Provider Physician Assistant; PCP Family Medicine Adult Medicine
DX: R10.9 Unspecified abdominal pain (principal); R11.2 Nausea with vomiting, unspecified; Z53.21 Procedure and treatment not carried out due to patient leaving prior to being seen by health care provider; N18.30 Chronic kidney disease, stage 3 unspecified; E78.5 Hyperlipidemia, unspecified; Z87.891 Personal history of nicotine dependence
CPT/HCPCS: 74177; 80053; 83690; 85025; 96374; 96375; 99285; J2270; J2765; J7030; Q9967

== ENCOUNTER → 2022-09-21 10:31 | Outpatient (BNVA) | payer MEDICARE, OTHER, SELFPAY | PROVIDERS: PCP Family Medicine Adult Medicine; Visit Provider Anesthesiology Pain Medicine | DX: M48.062 Spinal stenosis, lumbar region with neurogenic claudication (principal); M54.12 Radiculopathy, cervical region; M25.512 Pain in left shoulder | CPT/HCPCS: 99214 ==

== ENCOUNTER 2022-10-06 07:44 | Outpatient (CLI) | payer MEDICARE, OTHER, SELFPAY ==
--- NOTE | 2022-10-06 07:56 | XR_ITS ---
WS: [id number] Exam: XR wrist RT min 3V* [id number] Date/Time of Exam: 10/06/2022 7:57 AM Reason For Exam: fall rt shoulder, rt wrist pain No acute fracture or dislocation noted. Degenerative change at the articulation of the scaphoid and g reater and lesser multangular as well as the CMC joint of the thumb. Soft tissue thickening along the ulnar aspect of the wrist and distal forearm. XR/XR wrist RT min 3V* [id number] IMPRESSION: 1. No acute fracture or dislocation. Degenerative changes as above. 2. Soft tissue thickening and/or edema along the ulnar aspect of the wrist and distal forearm.
--- NOTE | 2022-10-06 07:56 | XR_ITS ---
WS: [id number] Exam: XR shoulder RT min 2V* [id number] Date/Time of Exam: 10/06/2022 7:57 AM Reason For Exam: fall rt wrist and rt shoulder pain Comparison 07/02/2022. No acute fracture or dislocation. Mild degenerative change of the AC joint and glenohumeral joint. No rmal soft tissues. XR/XR shoulder RT min 2V* [id number] IMPRESSION: 1. Mild degenerative changes. No fracture or other significant finding.
== END 2022-10-06 07:45 | disposition home or self-care (01) ==
LOC: RAD 07:48
PROVIDERS: PCP Family Medicine Adult Medicine; Visit Provider Family Medicine Adult Medicine
DX: S49.91XA Unspecified injury of right shoulder and upper arm, initial encounter (principal); S69.91XA Unspecified injury of right wrist, hand and finger(s), initial encounter; W18.30XA Fall on same level, unspecified, initial encounter; Y93.9 Activity, unspecified; Y92.009 Unspecified place in unspecified non-institutional (private) residence as the place of occurrence of the external cause; Y99.9 Unspecified external cause status; M25.511 Pain in right shoulder; M25.531 Pain in right wrist
CPT/HCPCS: 73030; 73110

== ENCOUNTER → 2022-10-08 13:48 | Outpatient (BNVA) | payer MEDICARE, OTHER, SELFPAY | PROVIDERS: PCP Family Medicine Adult Medicine; Visit Provider Anesthesiology Pain Medicine | DX: M47.812 Spondylosis without myelopathy or radiculopathy, cervical region (principal); M54.12 Radiculopathy, cervical region; M25.512 Pain in left shoulder; M48.062 Spinal stenosis, lumbar region with neurogenic claudication | CPT/HCPCS: 64490; 64491; 64492; J3490 ==

== ENCOUNTER → 2022-10-27 13:11 | Outpatient (BNVA) | payer MEDICARE, OTHER, SELFPAY | PROVIDERS: PCP Family Medicine Adult Medicine; Visit Provider Nurse Practitioner Family | DX: M19.011 Primary osteoarthritis, right shoulder (principal); G56.21 Lesion of ulnar nerve, right upper limb | CPT/HCPCS: 20610; 99213; J1100; J2795; J3301 ==

== ENCOUNTER 2022-11-09 10:00 | Oncology outpatient (recurring) (ONCR) | payer MEDICARE, OTHER, SELFPAY ==
[2022-11-09 12:44] LABS: Basophils # 0.1 10^3/uL (0.0-0.1); Basophils % 0.5 %; Eosinophils # 0.2 10^3/uL (0.0-0.8); Eosinophils % 1.7 %; Lymphocytes # 1.5 10^3/uL (0.8-4.8); Lymphocytes % 15.6 %; Mean Corpuscular HGB Conc 31.3 g/dL (30.0-36.0); Mean Corpuscular Volume 83.1 fl (81-99); Mean Platelet Volume 9.2 fL (7.4-10.4); Monocytes % 10.1 %; Neutrophils # 6.96 10^3/uL (1.8-7.7); Neutrophils % 71.4 %; Nucleated Red Blood Cells % 0 %; Platelet Count 339 10^3/cmm (130-400); Red Blood Count 3.85 10^6/uL (4.1-5.3); Red Cell Distribution Width 17.7 % (12.1-15.1); White Blood Count 9.8 10^3/uL (4.0-10.0)
[2022-11-09 12:45] LABS: Reticulocyte % 1.5 % (0.5-2.0)
[2022-11-09 12:51] LABS: Erythrocyte Sedimentation Rate 47 mm/hr (0-15)
[2022-11-09 13:10] LABS: Alanine Aminotransferase 9 U/L (0-33); Alkaline Phosphatase 109 U/L (35-105); Anion Gap 14.7 (5-19); Aspartate Amino Transferase 17 U/L (0-32); Blood Urea Nitrogen 20 mg/dL (8-23); Calcium 9.4 mg/dL (8.5-10.5); Carbon Dioxide 28 mmol/L (22-29); Chloride 98 mmol/L (98-107); Ferritin 54 ng/mL (15-150); Globulin 2.8 g/dL (1.3-4.6); Glomerular Filtration Rate 83.2 mL/min (90-130); Glucose 94 mg/dL (65-115); Iron 30 ug/dL (37-145); Osmolality Calculated 286 mOsm/kg (285-295); Potassium 3.7 mmol/L (3.5-5.1); Sodium 137 mmol/L (136-145); Total Bilirubin 0.3 mg/dL (0.15-1.2); Total Protein 6.8 g/dL (6.6-8.7)
[2022-11-13 13:13] LABS: Soluble Transferrin Receptor 1.77 mg/L (0.76-1.76)
== END 2022-11-09 23:59 | disposition home or self-care (01) ==
PROVIDERS: Internal Medicine Medical Oncology; PCP Family Medicine Adult Medicine; Visit Provider Internal Medicine Medical Oncology
DX: D50.9 Iron deficiency anemia, unspecified (principal)
CPT/HCPCS: 36415; 80053; 82668; 82728; 83540; 84238; 85025; 85045; 85651; 99203

== ENCOUNTER → 2022-11-11 14:50 | Outpatient (BNVA) | payer MEDICARE, OTHER, SELFPAY | PROVIDERS: PCP Family Medicine Adult Medicine; Visit Provider Internal Medicine Rheumatology | DX: M05.79 Rheumatoid arthritis with rheumatoid factor of multiple sites without organ or systems involvement; Z79.899 Other long term (current) drug therapy; Z71.85 Encounter for immunization safety counseling; M79.641 Pain in right hand | CPT/HCPCS: 99214; J1885 ==

== ENCOUNTER 2022-11-12 08:29 | Emergency (ER) | payer MEDICARE, OTHER, SELFPAY ==
--- NOTE | 2022-11-12 08:33 | XR_ITS ---
WS: [id number] Right wrist, 3 views, 11/12/2022 Clinical Data: pain Comparison: Right wrist, 10/06/2022 Findings: No fractures or dislocations are seen. The carpal bones are intact. Mild osteoarthritis at the base o f the first metacarpal articulation with the trapezium is present. There is minimal soft tissue swell ing over the dorsal ulnar side of the right wrist. The distal radius and ulna are not remarkable. XR/XR wrist RT min 3V* [id number] Impression: 1. 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 2. Unchanged soft tissue swelling over the dorsal ulnar side of the wrist.
[2022-11-12 08:37] VITALS: BP 136/114; PULSE 63; RESP 18; TEMP 36.4; O2SAT 97
[2022-11-12] MEDS: HYDROcodone-acetaminophen 5-325 mg Tablet 1 TAB PO (09:04)
--- NOTE | 2022-11-12 09:07 | W.ED.EXTPRO ---
HPI - Extremity Problem General: Chief complaint: Extremity Injury, Upper Stated complaint: Right arm/wrist pain Time Seen by Provider: 11/12/22 08:30 Source: patient Mode of arrival: ambulatory History of Present Illness: 59-year-old female comes in complaining of right wrist pain. She had a garden tool fall as she was trying to lift it off of a rack and hit her wrist a couple of days ago she has a history of rheumatoid arthritis she has some bruising progressive worsening of discomfort last few days. Patient has a history of rheumatoid arthritis she actually fell in September and also had wrist pain x-ray at that time was negative MD Complaint: joint pain Onset (ago): minute(s) Pain Consistency: constant Location: left (wrist) and upper extremity Quality: sharp Radiation: proximal Relieving factors: immobilization Exacerbating factors: range of motion and palpation Associated symptoms: Deny chest pain, fever(s) or rash Review of Systems Const: Denies: fever(s), chills, body aches, change in appetite, fatigue or malaise ENMT: Denies: throat pain, ear or mastoid pain, nasal discharge or nasal congestion Card: Denies: chest pain, edema, dyspnea on exertion or orthopnea Resp: Denies: dyspnea, productive cough or non-productive cough GI: Denies: abdominal pain, nausea, vomiting, hematemesis, coffee ground emesis, diarrhea, constipation, bloating, hematochezia or melena : Denies: flank pain, difficulty voiding, dysuria, urinary frequency or urinary urgency Skin/Breast: Denies: rash or pruritus PFSH ED PFSH: Medical History Abnormal toxicological findings Acute encephalopathy Allergic rhinitis due to allergen Anxiety and depression Chronic back pain Chronic upper abdominal pain CKD (chronic kidney disease) stage 3, GFR 30-59 ml/min COVID-19 Extrapyramidal and movement disorder Fall as cause of accidental injury in home as place of occurrence Hand injury High risk medication use Hyperlipidemia Hypothyroidism Iron deficiency anemia Lung nodule, solitary Prediabetes Prolonged QT interval RLS (restless legs syndrome) Seropositive rheumatoid arthritis of multiple sites Strain of muscle, fascia and tendon at neck level, initial encounter Substance or medication-induced sleep disorder, insomnia type Surgical History History of ankle surgery left History of appendectomy History of delivery History of cholecystectomy History of hysterectomy with bilateral oophorectomy Previous back surgery Social History Smoking and tobacco status: former smoker Quit status (tobacco): has quit using tobacco Year quit tobacco: 2009 Former quit date comment: Smoked for 9 months Alcohol intake: current Alcohol intake frequency: holidays/special occasions only Substance/Drug Use: never Physical Exam Const: COMMON NORMALS: no acute distress GENERAL APPEARANCE: cooperative and comfortable ORIENTATION/CONSCIOUSNESS: Yes awake, Yes oriented to person, Yes oriented to place and Yes oriented to time HENMT: COMMON NORMALS: normocephalic, atraumatic and hearing grossly normal bilaterally HEAD & SCALP: normocephalic and atraumatic Resp: COMMON NORMALS: normal respiratory effort, No retractions, No use of accessory muscles and clear to auscultation bilaterally AUSCULTATION: clear to auscultation bilaterally Cardio: COMMON NORMALS: regular rate, regular rhythm and No murmurs present (Cardio) RATE: regular rate RHYTHM: regular rhythm GI: COMMON NORMALS: Soft to palpation and No hepatosplenomegaly present AUSCULTATION: Yes normoactive bowel sounds PALPATION: Yes Soft to palpation, No Tenderness to palpation present (GI), No Guarding due to palpation present (GI) and Yes No hepatosplenomegaly present Extremity: OTHER: Mild swelling and ecchymosis over the right wrist. Mildly deformed patient reports previous fracture to that wrist. Neurovascularly intact examination of the elbow and shoulder on the right are normal when isolating out the wrist. Neuro: SENSORIUM/ORIENTATION: Yes oriented to person, Yes oriented to place and Yes oriented to time Skin: COMMON NORMALS: no rashes or lesions noted GENERAL SKIN EXAM: no rashes or lesions noted Course Vital Signs: Vital signs: Vital Signs Temperature 97.5 F L 11/12/22 08:37 Pulse Rate 64 11/12/22 10:57 Respiratory Rate 18 11/12/22 08:37 Blood Pressure 143/70 11/12/22 10:57 Pulse Oximetry 96 11/12/22 10:57 Oxygen Delivery Me thod Room Air 11/12/22 08:37 MDM - Extremity (Nontraumatic) Medical Decision Making No acute fracture. Patient was seen yesterday in rheumatology office given ketorolac. She is demanding narcotics for the pain. Intermittently she demands to be admitted and knocked out . Contacted Dr. Panchal's office, they did not feel they had anything more to offer the patient than what they had instructed her yesterday. Patient is very angry at her narcotics were not refilled and that she has not been giving narcotics now. Gave her a short course of oxycodone increased her steroids and have her follow-up with rheumatology or her primary care doctor. Explained to the patient they were increasing the dose steroids compared to what she was on previously. Medical Records I reviewed the patient's medical records. Lab Data I reviewed the patient's lab results. Radiology Impressions Wrist X-Ray 11/12/22 08:33 Impression: 1. 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 2. Unchanged soft tissue swelling over the dorsal ulnar side of the wrist. Discharge Plan Discharge Patient Disposition: Home Clinical Impression: Sprain and strain of wrist, Rheumatoid arthritis flare Condition: Stable Prescriptions: New prednisone 20 mg tablet 20 mg PO TID Qty: 15 0RF Rx Instructions: 1 p.o. 3 times daily x3 days, 1 p.o. twice daily x2 days, 1 p.o. daily x2 days oxycodone 5 mg tablet 5 mg PO TID PRN (Reason: pain) Qty: 15 0RF No Action Proventil HFA 90 mcg/actuation HFA aerosol inhaler 1 inh inhalation Q6H PRN (Reason: shortness of breath or wheezing) Qty: 6.7 5RF dexlansoprazole [Dexilant] 30 mg capsule,biphase delayed releas 30 mg PO BEDTIME Qty: 90 1RF leflunomide 20 mg tablet 20 mg PO DAILY Qty: 30 3RF prednisone 5 mg tablet See Rx Instructions PO DAILY Qty: 90 0RF Rx Instructions: alternate 10mg today c 5mg the next day for 10 days then stay on 5mg daily orally daily; baclofen 10 mg tablet 10 mg PO BID PRN (Reason: Muscle Spasm) 30 Days Qty: 30 0RF gabapentin 300 mg capsule 300 mg PO TID Qty: 90 5RF Lasix 40 mg tablet 40 mg PO DAILY PRN (Reason: edema) 30 Days Qty: 30 5RF Rx Instructions: only take 40 mg as needed for edema ropinirole 1 mg tablet 4 mg PO TID ondansetron 4 mg tablet,disintegrating 4 mg PO DAILY PRN (Reason: Nausea And Vomiting) Qty: 30 2RF oxycodone 5 mg tablet 5 mg PO TID PRN (Reason: pain) 30 Days Qty: 90 0RF Rx Instructions: Refill on or after 30-day interval. mirtazapine 15 mg tablet 15 mg PO BEDTIME Qty: 30 1RF levothyroxine 112 mcg tablet 112 mcg PO QAM Qty: 90 1RF latanoprost 0.005 % drops 1 drp ophthalmic (eye) QPM doxepin 6 mg tablet 6 mg PO BEDTIME PRN (Reason: sleep) potassium chloride 10 mEq Tablet Extended Release 20 meq PO DAILY PRN (Reason: when takes lasix) Hold Instructions: Resume on 04/29/22. Discharge Orders: Discharge ED (Routine); Ordered 11/12/22 Ordered By: Sammy Plaza Referrals: Kaiser Lisa MD [Primary Care Provider] - Discharge Diet: Usual diet Discharge Activity: Increase activity as tolerated Patient Instructions: Opioid Safety, Pain Management Coding Level of Care Code ED Senior It Specialist for Maribel Sweet
[2022-11-12 09:36] VITALS: BP 143/70; PULSE 64; O2SAT 96
[2022-11-12] MEDS: dexamethasone 10 mg/mL INJ IM (09:53)
[2022-11-12] MEDS: ondansetron 2 mg/ML SDV 2 mL 4 MG IM (10:35)
[2022-11-12] MEDS: morphine 4 mg/mL SDV 1 mL IM (10:35)
[2022-11-12 10:57] VITALS: BP 143/70; PULSE 64; O2SAT 96
== END 2022-11-12 10:58 | disposition home or self-care (01) ==
PROVIDERS: Emergency Provider Family Medicine; PCP Family Medicine Adult Medicine
DX: S63.501A Unspecified sprain of right wrist, initial encounter (principal); S66.911A Strain of unspecified muscle, fascia and tendon at wrist and hand level, right hand, initial encounter; M06.9 Rheumatoid arthritis, unspecified; N18.30 Chronic kidney disease, stage 3 unspecified; E78.5 Hyperlipidemia, unspecified; Z87.891 Personal history of nicotine dependence; W20.8XXA Other cause of strike by thrown, projected or falling object, initial encounter
CPT/HCPCS: 73110; 96372; 99284; J1100; J2270; J2405

== ENCOUNTER 2022-11-27 05:00 | Emergency (ER) | payer MEDICARE, OTHER, SELFPAY ==
[2022-11-27] VITALS (49 sets, daily range): BP systolic 112–185; BP diastolic 49–101; PULSE 62–78; RESP 7–35; TEMP 36.4; O2SAT 94–100; BMI 21.6
[2022-11-27] MEDS: sodium chloride 0.9% 1,000 ML 999 ML IV (05:34)
[2022-11-27] MEDS: ondansetron 2 mg/ML SDV 2 mL 4 MG IVP (05:34)
[2022-11-27 05:59] LABS: Basophils % 0.5 %; Hematocrit 36.2 % (37.0-47.0); Hemoglobin 11.6 g/dL (11.5-15.3); Lymphocytes % 12.9 %; Mean Platelet Volume 9.7 fL (7.4-10.4); Monocytes # 0.8 10^3/uL (0.2-0.9); Monocytes % 11.4 %; Neutrophils # 5.48 10^3/uL (1.8-7.7); Neutrophils % 74.8 %; Nucleated Red Blood Cells % 0 %; Platelet Count 356 10^3/cmm (130-400); Red Blood Count 4.47 10^6/uL (4.1-5.3); Red Cell Distribution Width 17.2 % (12.1-15.1); White Blood Count 7.3 10^3/uL (4.0-10.0)
[2022-11-27 06:16] LABS: Alanine Aminotransferase 8 U/L (0-33); Albumin Level 3.9 g/dL (3.5-5.2); Alkaline Phosphatase 142 U/L (35-105); Aspartate Amino Transferase 16 U/L (0-32); Blood Urea Nitrogen 13 mg/dL (8-23); Calcium 9.6 mg/dL (8.5-10.5); Carbon Dioxide 24 mmol/L (22-29); Globulin 3.7 g/dL (1.3-4.6); Glomerular Filtration Rate 62.3 mL/min (90-130); Glucose 165 mg/dL (65-115); Lipase 29 U/L (13-60); Total Bilirubin 0.3 mg/dL (0.15-1.2); Total Protein 7.6 g/dL (6.6-8.7)
[2022-11-27] MEDS: morphine 4 mg/mL SDV 1 mL IVP ×2 (06:23→09:43)
[2022-11-27 06:27] LABS: Anion Gap 20.7 (5-19); Chloride 98 mmol/L (98-107); Osmolality Calculated 294 mOsm/kg (285-295); Sodium 140 mmol/L (136-145)
--- NOTE | 2022-11-27 06:27 | CTR_ITS ---
PROCEDURE INFORMATION: Exam: CT Abdomen And Pelvis With Contrast Exam date and time: 11/27/2022 6:40 AM Age: 67 years old Clinical indication: Abdominal pain; Prior surgery; Surgery date: 6+ months; Surgery type: Gb hysto appy; Patient HX: Smoked weed at 0400 and then ate fried chicken. She then became nauseated and vomited, shes having pain in the chest and back. Has cardiac HX. Pain started last night around 2200; Additional info: Severe abdominal pain TECHNIQUE: Imaging protocol: Computed tomography of the abdomen and pelvis with contrast. Radiation optimization: All CT scans at this facility use at least one of these dose optimization techniques: automated exposure control; mA and/or kV adjustment per patient size (includes targeted exams where dose is matched to clinical indication); or iterative reconstruction. Contrast material: OMNI 350; Contrast volume: 100 ml; Contrast route: INTRAVENOUS (IV); REPORTING DATA: Count of CT and Cardiac NM exams in prior 12 months: This patient has received 8 known CTs and 0 known cardiac nuclear medicine studies in the 12 months prior to the current study. COMPARISON: CT abdomen pelvis w con* [id number] 09/12/2022 1:48 PM RADIATION DOSE METRICS: Total DLP (mGy-cm): 368.23 FINDINGS: Lungs: Hyperinflation with pleuroparenchymal scarring/thickening of lower lungs. 0.5 cm nodule right lung at the fissural confluence. Diaphragm: Hiatal hernia with questionable distal esophageal wall thickening. Gastric wall thickening versus nondistention. Liver: Normal. No mass. Gallbladder and bile ducts: Postoperative cholecystectomy. Pancreas: Normal. No ductal dilation. Spleen: Normal. No splenomegaly. Adrenal glands: Normal. No mass. Kidneys and ureters: Small cyst within the left kidney. Stomach and bowel: Colonic minor diverticulosis distally. Partial fluid-filled small bowel. Appendix: No evidence of appendicitis. Intraperitoneal space: Unremarkable. No free air. No significant fluid collection. Vasculature: On the uppermost image acquired there is concern for potential subtle vascular dissection at the lower thoracic aorta with adjacent eccentric calcification although focal non calcified plaque could be a consideration. Prominent pelvic branching vascular calcification. Lymph nodes: Unremarkable. No enlarged lymph nodes. Urinary bladder: Unremarkable as visualized. Reproductive: Postoperative hysterectomy. Bones/joints: Degenerative change of the spine. Prior L4 and L5 vertebroplasty. Soft tissues: Unremarkable. CT/CT abdomen pelvis w con* [id number] IMPRESSION: 1. Equivocal linear eccentric vascular dissection appearance versus shelf like noncalcified plaque within the distal thoracic aorta. Irregular artifact is a consideration. Consider CTA of the aorta for complete exclusion of dissection. 2. Prominent pelvic branching atherosclerotic vascular calcification. 3. Distal esophageal wall thickening and small hiatal hernia. 4. Accentuation of the gastric wall which could be on the basis of thickening or nondistention. 5. Left renal cyst. No follow-up is required. 6. Accentuated paraspinal branching hyperdense serpiginous structures which could reflect partial extravasation of material secondary to L4 and L5 vertebroplasty with linear branch extension to the inferior vena cava. 7. Fluid-filled small bowel which may reflect reactive ileus or enteritis. 8. Nodule right lower lung.For patients at low risk (minimal or absent history of smoking and of other known risk factors), no routine follow-up is indicated. For patients at high risk (history of smoking or of other known risk factors), consider optional CT Chest at 12 months. (Reference: Ran) COMMENTS: Consistent with the [employer]'s Incidental Findings Committee white paper (J Am Ananth Radiol 2018): Any incidental renal lesion less than 1 cm or classified as too small to characterize, or any incidental cystic renal lesion characterized as simple-appearing, is likely benign. No follow-up imaging is recommended for these lesions per consensus recommendations based on imaging criteria. REFERENCES: Ran Burciaga et al. Guidelines for Management of Incidental Pulmonary Nodules Detected on CT Images: From the Fleischner Society 2017. Radiology. 2017;284(1):228-243.
[2022-11-27 06:29] LABS: Potassium 2.7 mmol/L (3.5-5.1)
[2022-11-27] MEDS: iohexol 350 mg/mL 500 mL Btl (per mL) IV ×2 (06:44→08:26)
--- NOTE | 2022-11-27 07:14 | W.ED.NAVMDI ---
HPI - Nausea/Vomiting/Diarrhea General: Chief complaint: Nausea/Vomiting/Diarrhea Stated complaint: N/V Time Seen by Provider: 11/27/22 05:10 History of Present Illness: 67 years old female presents emergency room with nausea, vomiting, diarrhea and abdominal pain that started around 10 PM yesterday. Describes the abdominal pain as cramping sensation with severity of 7/10 diffusely denies any sick contact or recent foreign travel. Fever, chills, dysuria, hematuria urine frequency. Associated nausea: Yes Associated symtoms: Reports nausea; Denies fecal incontinence Review of Systems General: Reports: 10 or more systems reviewed and unremarkable except in HPI and below GI: Reports: abdominal pain, nausea, vomiting and diarrhea; Denies: hematemesis, GI cramping, belching, excessive flatus or fecal incontinence [facility] ED PFSH: Medical History Abnormal toxicological findings Acute encephalopathy Allergic rhinitis due to allergen Anxiety and depression Chronic back pain Chronic upper abdominal pain CKD (chronic kidney disease) stage 3, GFR 30-59 ml/min COVID-19 Extrapyramidal and movement disorder Fall as cause of accidental injury in home as place of occurrence Hand injury High risk medication use Hyperlipidemia Hypothyroidism Iron deficiency anemia Lung nodule, solitary Prediabetes Prolonged QT interval RLS (restless legs syndrome) Seropositive rheumatoid arthritis of multiple sites Strain of muscle, fascia and tendon at neck level, initial encounter Substance or medication-induced sleep disorder, insomnia type Surgical History History of ankle surgery left History of appendectomy History of delivery History of cholecystectomy History of hysterectomy with bilateral oophorectomy Previous back surgery Social History Smoking and tobacco status: former smoker Quit status (tobacco): has quit using tobacco Year quit tobacco: 2009 Former quit date comment: Smoked for 9 months Alcohol intake: current Alcohol intake frequency: holidays/special occasions only Substance/Drug Use: never Physical Exam Const: COMMON NORMALS: no acute distress, average body habitus, patient oriented x3, no limitations, healthy appearing, alert and well nourished HENMT: COMMON NORMALS: normocephalic, atraumatic, hearing grossly normal bilaterally, external ears normal, EAC's normal, TM's normal bilaterally, Normal external nose present, Normal nasal mucous membranes and turbinates present, moist oral mucous membranes, oropharynx normal, dentition normal and gingiva normal HEAD & SCALP: normocephalic and atraumatic NOSE: Normal external nose present and Normal nasal mucous membranes and turbinates present EXTERNAL EAR: Yes external ears normal EXTERNAL AUDITORY CANAL: EAC's normal TYMPANIC MEMBRANE: TM's normal bilaterally Neck/C-Spine: COMMON NORMALS: no JVD Chest: COMMONS NORMALS: normal inspection of the chest, normal palpation of entire chest wall, normal inspection of the breasts and normal palpation of the breasts Breast/axilla inspection: Yes normal inspection of the breasts BREAST/AXILLA PALPATION: Yes normal palpation of the breasts Resp: COMMON NORMALS: normal respiratory effort, No retractions, No use of accessory muscles, clear to auscultation bilaterally and percussion normal AUSCULTATION: clear to auscultation bilaterally PERCUSSION: percussion normal Cardio: COMMON NORMALS: no JVD, regular rate, regular rhythm, S1 normal heart sound present, S2 normal heart sound present, No gallops present (Cardio), No clicks present (Cardio), No murmurs present (Cardio), No rub (Cardio) and Peripheral pulses 2+ throughout RATE: regular rate RHYTHM: regular rhythm HEART SOUNDS: S1 normal heart sound present and S2 normal heart sound present PERIPHERAL PULSES: Peripheral pulses 2+ throughout GI: COMMON NORMALS: Soft to palpation INSPECTION: Yes normal to inspection AUSCULTATION: Yes normoactive bowel sounds PALPATION: Yes Soft to palpation and Yes Tenderness to palpation present (GI) (Diffuse tenderness on palpation. No guarding or rebound tenderness.) Neuro: COMMON NORMALS: patient oriented x3 SENSORIUM/ORIENTATION: Yes alert Course Reevaluation(s): Reevaluation #1: Patient was found to be hypokalemic and was started some IV potassium. Consultations: Consultation #1: At 7:[address] finding with the radiologist. Reviewed possible abnormalities of the CT and recommended CT a chest and abdomen to rule out dissection. Vital Signs: Vital signs: Vital Signs Temperature 97.6 F 11/27/22 05:01 Pulse Rate 68 11/27/22 07:13 Respiratory Rate 16 11/27/22 07:13 Blood Pressure 112/49 11/27/22 07:13 Pulse Oximetry 99 11/27/22 07:13 Oxygen Delivery Me thod Room Air 11/27/22 07:13 MDM - Nausea/Vomiting/Diarrhea Medical Decision Making Patient made comfortable emergency room. Patient was given IV fluid, IV pain medication, IV nausea medication, scan, CBC CMP and lipase ordered. Discussed patient with radiologist. Care transferred to Dr. Nice pending CT scan and disposition. Differential Diagnosis Likely traveler's diarrhea, food poisoning, gastroenteritis, clostridium difficile infection, drug-induced nausea and vomiting and dehydration Lab Data 11/27/22 05:53 11/27/22 05:53 Laboratory Results WBC 7.3 10^3/uL (4.0-10.0) 11/27/22 05:53 RBC 4.47 10^6/uL (4.1-5.3) 11/27/22 05:53 Hgb 11.6 g/dL (11.5-15.3) 11/27/22 05:53 Hct 36.2 % (37.0-47.0) L 11/27/22 05:53 MCV 81.0 fl (81-99) 11/27/22 05:53 MCH 26.0 pg (28.0-34.0) L 11/27/22 05:53 MCHC 32.0 g/dL (30.0-36.0) 11/27/22 05:53 RDW 17.2 % (12.1-15.1) H 11/27/22 05:53 Plt Count 356 10^3/cmm (130-400) 11/27/22 05:53 MPV 9.7 fL (7.4-10.4) 11/27/22 05:53 Neut % (Auto) 74.8 % 11/27/22 05:53 Lymph % (Auto) 12.9 % 11/27/22 05:53 [place] % (Auto) 11.4 % 11/27/22 05:53 Eos % (Auto) 0.0 % 11/27/22 05:53 Baso % (Auto) 0.5 % 11/27/22 05:53 Neut # (Auto) 5.48 10^3/uL (1.8-7.7) 11/27/22 05:53 Lymph # (Auto) 1.0 10^3/uL (0.8-4.8) 11/27/22 05:53 [place] # (Auto) 0.8 10^3/uL (0.2-0.9) 11/27/22 05:53 Eos # (Auto) 0.0 10^3/uL (0.0-0.8) 11/27/22 05:53 Baso # (Auto) 0.0 10^3/uL (0.0-0.1) 11/27/22 05:53 Nucleated RBC % (auto) 0 % 11/27/22 05:53 Nucleated RBCs # 0.0 /100WBC 11/27/22 05:53 Sodium 140 mmol/L (136-145) 11/27/22 05:53 Potassium 2.7 mmol/L (3.5-5.1) L* 11/27/22 05:53 Chloride 98 mmol/L (98-107) 11/27/22 05:53 Carbon Dioxide 24 mmol/L (22-29) 11/27/22 05:53 Anion Gap 20.7 (5-19) H 11/27/22 05:53 BUN 13 mg/dL (8-23) 11/27/22 05:53 Creatinine 0.9 mg/dL (0.5-0.9) 11/27/22 05:53 GFR Calculation 62.3 mL/min (90-130) L 11/27/22 05:53 Glucose 165 mg/dL (65-115) H 11/27/22 05:53 Calculated Osmolality 294 mOsm/kg (285-295) 11/27/22 05:53 Calcium 9.6 mg/dL (8.5-10.5) 11/27/22 05:53 Total Bilirubin 0.3 mg/dL (0.15-1.2) 11/27/22 05:53 AST 16 U/L (0-32) 11/27/22 05:53 ALT 8 U/L (0-33) 11/27/22 05:53 Alkaline Phosphatase 142 U/L (35-105) H 11/27/22 05:53 Total Protein 7.6 g/dL (6.6-8.7) 11/27/22 05:53 Albumin 3.9 g/dL (3.5-5.2) 11/27/22 05:53 Globulin 3.7 g/dL (1.3-4.6) 11/27/22 05:53 Lipase 29 U/L (13-60) 11/27/22 05:53 Critical Care Time Critical Care Time: Critical Care Time: Yes Total Critical Care Time: 45 Attestation: Patient was given IV potassium. He was monitored here for several hours and reexamined after each treatment. Time spent discussing patient with radiologist time spent reviewing past medical history and records. Discharge Plan Discharge Clinical Impression: Nausea vomiting and diarrhea, Acute hypokalemia, Abdominal pain Condition: Stable Prescriptions: No Action Proventil HFA 90 mcg/actuation HFA aerosol inhaler 1 inh inhalation Q6H PRN (Reason: shortness of breath or wheezing) Qty: 6.7 5RF leflunomide 20 mg tablet 20 mg PO DAILY Qty: 30 3RF prednisone 5 mg tablet See Rx Instructions PO DAILY Qty: 90 0RF Rx Instructions: alternate 10mg today c 5mg the next day for 10 days then stay on 5mg daily orally daily; baclofen 10 mg tablet 10 mg PO BID PRN (Reason: Muscle Spasm) 30 Days Qty: 30 0RF gabapentin 300 mg capsule 300 mg PO TID Qty: 90 5RF ropinirole 1 mg tablet 4 mg PO TID ondansetron 4 mg tablet,disintegrating 4 mg PO DAILY PRN (Reason: Nausea And Vomiting) Qty: 30 2RF oxycodone 5 mg tablet 5 mg PO TID PRN (Reason: pain) 30 Days Qty: 90 0RF Rx Instructions: Refill on or after 30-day interval. mirtazapine 15 mg tablet 15 mg PO BEDTIME Qty: 30 1RF levothyroxine 112 mcg tablet 112 mcg PO QAM Qty: 90 1RF Lasix 40 mg tablet 40 mg PO DAILY PRN (Reason: edema) 30 Days Qty: 90 1RF Rx Instructions: only take 40 mg as needed for edema dexlansoprazole [Dexilant] 30 mg capsule,biphase delayed releas 30 mg PO BEDTIME Qty: 90 1RF latanoprost 0.005 % drops 1 drp ophthalmic (eye) QPM doxepin 6 mg tablet 6 mg PO BEDTIME PRN (Reason: sleep) prednisone 20 mg tablet 20 mg PO TID Qty: 15 0RF Rx Instructions: 1 p.o. 3 times daily x3 days, 1 p.o. twice daily x2 days, 1 p.o. daily x2 days oxycodone 5 mg tablet 5 mg PO TID PRN (Reason: pain) Qty: 15 0RF potassium chloride 10 mEq Tablet Extended Release 20 meq PO DAILY PRN (Reason: when takes lasix) Hold Instructions: Resume on 04/29/22. Referrals: Kaiser Lisa MD [Primary Care Provider] - Patient Instructions: Abdominal Pain (ED) Coding Level of Care Code ED [facility] for Maribel Sweet
--- NOTE | 2022-11-27 07:30 | CTR_ITS ---
PROCEDURE INFORMATION: Exam: CTA Chest With Contrast CTA Abdomen and Pelvis With Contrast Exam date and time: 11/27/2022 8:17 AM Age: 67 years old Clinical indication: Abdominal pain; Generalized; Prior surgery; Surgery date: 6+ months; Surgery type: Gb hysto; Additional info: Abnormal CT to rule out dissection TECHNIQUE: Imaging protocol: Computed tomographic angiography of the chest with contrast. Exam focused on the arteries. Computed tomographic angiography of the abdomen and pelvis with contrast. Exam focused on the arteries. 3D rendering (Not supervised by radiologist): MIP and/or 3D reconstructed images were created by the technologist. Radiation optimization: All CT scans at this facility use at least one of these dose optimization techniques: automated exposure control; mA and/or kV adjustment per patient size (includes targeted exams where dose is matched to clinical indication); or iterative reconstruction. Contrast material: OMNI 350; Contrast volume: 100 ml; Contrast route: INTRAVENOUS (IV); REPORTING DATA: Count of CT and Cardiac NM exams in prior 12 months: This patient has received 8 known CTs and 0 known cardiac nuclear medicine studies in the 12 months prior to the current study. COMPARISON: CT angio chest w abd pel w con 06/17/2022 3:10 PM RADIATION DOSE METRICS: Total DLP (mGy-cm): 948.16 FINDINGS: VASCULATURE: Pulmonary arteries: No visualized pulmonary embolus. Aorta: Thoracic aorta vascular calcification. Small focal irregular most likely eccentric noncalcified plaque in the distal aorta with a rim of mural thrombus. No definite intravascular dissection. No aneurysmal dilatation. Celiac trunk and mesenteric arteries: No occlusion or significant stenosis. Renal arteries: Atherosclerotic plaque with mild to moderate narrowing of the non ostial proximal right main renal artery. Right iliac arteries: No occlusion or significant stenosis. Left iliac arteries: No occlusion or significant stenosis. Extensive venous collateral vasculature within the upper chest and right chest wall suggest significant central venous occlusion or stenosis. CHEST: Lungs: Subpleural 0.2 cm nodule right upper lobe posteriorly. 0.6 cm nodule right upper lobe medially. Nodule right lower lobe measures 0.7 cm. Nodules right lower lobe medially measure 0.7 and 0.5 cm. Hyperinflation. Minor pleuroparenchymal scarring throughout both lungs. Pleural spaces: Unremarkable. No pneumothorax. No pleural effusion. Heart: Normal right to left ventricular ratio. Minimal pericardial effusion. Coronary arteries: Calcification distribution of coronary arteries. Mediastinal space: Mid to distal esophageal wall thickening. Small hiatal hernia. ABDOMEN AND PELVIS: Liver: No mass. Gallbladder and bile ducts: Postoperative cholecystectomy. Mildly accentuated extrahepatic bile ducts which may be on the basis of cholecystectomy. Pancreas: Unremarkable. No mass. No ductal dilation. Spleen: Unremarkable. No splenomegaly. Adrenal glands: Unremarkable. No mass. Kidneys and ureters: Cyst left kidney. Excretion within collecting structures of both kidneys without hydronephrosis. Stomach and bowel: Accentuation of the gastric wall. Appendix: No evidence of appendicitis. Intraperitoneal space: Unremarkable. No free air. No significant fluid collection. Urinary bladder: Unremarkable. No mass. Reproductive: Unremarkable as visualized. Lymph nodes: Small mediastinal lymph nodes. Bones/joints: Degenerative change of the spine. Prior vertebroplasty L4 and L5. Soft tissues: Unremarkable. Other findings: Prominent pelvic branching vascular calcification. CT/CT [facility] [id number] IMPRESSION: 1. Diffuse atherosclerosis thoracic and abdominal aorta without dissection. Finding on CT of the abdomen and pelvis within the distal thoracic aorta most likely reflects focal irregular noncalcified plaque within adjacent rim of mural thrombus. 2. Non ostial mild to moderate narrowing of the proximal dominant right main renal artery. 3. Mid to distal esophageal wall thickening with small hiatal hernia. 4. Accentuation of the gastric wall which could reflect wall thickening or nondistention. 5. Cyst left kidney. No follow-up is required. 6. Multiple bilateral pulmonary nodules largest measuring 0.7 cm.For patients at low risk (minimal or absent history of smoking and of other known risk factors), recommend CT Chest at 3-6 months, then consider CT Chest at 18-24 months. For patients at high risk (history of smoking or of other known risk factors), recommend CT Chest at 3-6 months, then CT Chest at 18-24 months. (Reference: Ran) 7. Extensive venous collateral vasculature within the chest most noted on the right suggestive of significant central venous vascular stenosis or occlusion. COMMENTS: Consistent with the [place] [employer]'s Incidental Findings Committee white paper (J Am Ananth Radiol 2018): Any incidental renal lesion less than 1 cm or classified as too small to characterize, or any incidental cystic renal lesion characterized as simple-appearing, is likely benign. No follow-up imaging is recommended for these lesions per consensus recommendations based on imaging criteria. REFERENCES: Ran Burciaga, et al. Guidelines for Management of Incidental Pulmonary Nodules Detected on CT Images: From the Fleischner Society 2017. Radiology. 2017;284(1):228-243.
[2022-11-27] MEDS: HYDROmorphone 1 mg/mL INJ 1 mL IVP (07:46)
[2022-11-27] MEDS: potassium chloride premix 100 ML 50 MEQ IV (07:52)
[2022-11-27] MEDS: sodium chloride 0.9% 500 ML 999 ML IV ×2 (08:04→09:42)
[2022-11-27] MEDS: haloperidol inj 5 mg/mL INJ 1 mL 2 MG IVP (08:08)
[2022-11-27] MEDS: lidocaine 1% INJ 10 mL (per mL) 5 ML XX (08:31)
--- NOTE | 2022-11-27 09:04 | PC.PHAR ---
pt states she takes care of her own medications-pt states she is still taking her 5mg daily prednisone and the titrating dose of prednisone filled 11/25/22 5d/s-
[2022-11-27] MEDS: potassium chloride oral liq 20 mEq/15 mL UDC 40 MEQ PO (09:42)
== END 2022-11-27 11:30 | disposition home or self-care (01) ==
PROVIDERS: Family Medicine; Emergency Provider Family Medicine; PCP Family Medicine Adult Medicine
DX: R11.2 Nausea with vomiting, unspecified (principal); R19.7 Diarrhea, unspecified; E87.6 Hypokalemia; R10.9 Unspecified abdominal pain; Z87.891 Personal history of nicotine dependence; N18.30 Chronic kidney disease, stage 3 unspecified; E78.5 Hyperlipidemia, unspecified
CPT/HCPCS: 71275; 74174; 74177; 80053; 83690; 85025; 96374; 96375; 96376; 99285; J1170; J1630; J2270; J2405; J2765; J3480; J7030; J7040; Q9967

== ENCOUNTER 2022-12-03 09:40 | Inpatient (IN) | payer MEDICARE, OTHER, SELFPAY ==
[2022-12-03] VITALS (59 sets, daily range): BP systolic 98–154; BP diastolic 55–79; PULSE 52–81; RESP 13–35; TEMP 36.6–37.3; O2SAT 91–99
--- NOTE | 2022-12-03 11:06 | ED_ITS ---
HPI - Nausea/Vomiting/Diarrhea General: Chief complaint: Nausea/Vomiting/Diarrhea Stated complaint: vomiting, diarrea, weakness Time Seen by Provider: 12/03/22 10:08 Source: patient Mode of arrival: ambulatory History of Present Illness: 67-year-old female presents emergency room with complaint of hematemesis and coffee-ground emesis began this morning around 430. She had several episodes of coffee-ground emesis and then some bright red blood and some darker blood she had been seen last week with complaints of nausea vomiting and no blood at that time work-up was negative. MD elicited complaint: nausea and vomiting Onset (ago): hour(s) Description of vomiting: bloody and coffee grounds Associated nausea: Yes Associated abdominal pain: Yes Location of pain: Epigastric and RUQ Severity: moderate Quality: stabbing Exacerbating factors: none Relieving factors: none Associated symtoms: Reports fatigue, anorexia, malaise and nausea; Denies altered mental status, anxiety, bloating, change in vision, chest pain, cough, diaphoresis, decreased urine output, dizziness, dysuria, epistaxis, fecal incontinence, fevers/chills, headache(s), myalgias, numbness, palpitations, rash, short of breath, syncope, tenesmus, tinnitus or weakness Review of Systems Const: Reports: fatigue and malaise; Denies: fever(s), chills or diaphoresis Eyes: Denies: change in vision ENMT: Denies: tinnitus or epistaxis Card: Denies: chest pain, palpitations or syncope Resp: Denies: dyspnea, productive cough or non-productive cough GI: Reports: abdominal pain, nausea, vomiting, hematemesis and coffee ground emesis; Denies: bloating or fecal incontinence : Denies: dysuria, urinary frequency or urinary urgency Skin/Breast: Denies: rash or pruritus Neuro: Denies: headache(s) or dizziness Psych: Denies: anxiety PFSH ED PFSH: Medical History Abnormal toxicological findings Acute encephalopathy Allergic rhinitis due to allergen Anxiety and depression Chronic back pain Chronic upper abdominal pain CKD (chronic kidney disease) stage 3, GFR 30-59 ml/min COVID-19 Extrapyramidal and movement disorder Fall as cause of accidental injury in home as place of occurrence Hand injury High risk medication use Hyperlipidemia Hypothyroidism Iron deficiency anemia Lung nodule, solitary Prediabetes Prolonged QT interval RLS (restless legs syndrome) Seropositive rheumatoid arthritis of multiple sites Strain of muscle, fascia and tendon at neck level, initial encounter Substance or medication-induced sleep disorder, insomnia type Surgical History History of ankle surgery left History of appendectomy History of delivery History of cholecystectomy History of hysterectomy with bilateral oophorectomy Previous back surgery Social History Smoking and tobacco status: former smoker Quit status (tobacco): has quit using tobacco Year quit tobacco: 2009 Former quit date comment: Smoked for 9 months Alcohol intake: current Alcohol intake frequency: holidays/special occasions only Substance/Drug Use: never Physical Exam Const: COMMON NORMALS: no acute distress EXAM LIMITATIONS: no altered mental status GENERAL APPEARANCE: cooperative and comfortable ORIENTATION/CONSCIOUSNESS: Yes awake, Yes oriented to person, Yes oriented to place and Yes oriented to time HENMT: COMMON NORMALS: normocephalic, atraumatic and hearing grossly normal bilaterally HEAD & SCALP: normocephalic and atraumatic Resp: COMMON NORMALS: normal respiratory effort, No retractions, No use of accessory muscles and clear to auscultation bilaterally AUSCULTATION: clear to auscultation bilaterally Cardio: COMMON NORMALS: regular rate, regular rhythm and No murmurs present (Cardio) RATE: regular rate RHYTHM: regular rhythm GI: COMMON NORMALS: No hepatosplenomegaly present AUSCULTATION: Yes normoactive bowel sounds PALPATION: Yes Tenderness to palpation present (GI) Details: RUQ, No Guarding due to palpation present (GI) and Yes No hepatosplenomegaly present Extremity: COMMON NORMALS: normal to inspection, capillary refill normal, no clubbing, cyanosis or edema, no calf tenderness and no pedal edema Neuro: SENSORIUM/ORIENTATION: Yes oriented to person, Yes oriented to place and Yes oriented to time Skin: COMMON NORMALS: no rashes or lesions noted GENERAL SKIN EXAM: no rashes or lesions noted Course Vital Signs: Vital signs: Vital Signs Temperature 98.3 F 12/03/22 09:46 Pulse Rate 61 12/03/22 14:30 Respiratory Rate 20 H 12/03/22 14:30 Blood Pressure 154/75 12/03/22 14:30 Pulse Oximetry 93 12/03/22 14:25 Oxygen Delivery Me thod Room Air 12/03/22 13:08 MDM - Nausea/Vomiting/Diarrhea Medical Decision Making Labs and imaging reviewed no acute findings on the CT hemoglobin is actually imani e out patient is reporting bright red blood vomitus several times earlier today. She is given Protonix she developed chest and abdominal pain later in the visit EKGs did not show any acute changes troponins trending normal. She had several visits for abdominal pain will place on observation consult surgery for possible EGD in the morning patient n.p.o. for that now. Medical Records I reviewed the patient's medical records. Lab Data I reviewed the patient's lab results. 12/03/22 11:36 12/03/22 11:36 Radiology Impressions Abdomen/Pelvis CT 12/03/22 11:06 IMPRESSION: 1. No acute findings within the abdomen or pelvis. 2. Prior cholecystectomy with stable dilatation the common bile duct. 3. Additional chronic findings as above. COMMENTS: For patients with an IVC filter, recommend assessment for a management plan for the patient's IVC filter. If there is no established management plan, recommend referral to an interventional clinician on a nonemergent basis for evaluation. Laboratory Results WBC 8.77 10^3/uL (3.29-11.43) 12/03/22 11:36 RBC 4.86 10^6/uL (3.85-5.65) 12/03/22 11:36 Hgb 12.50 g/dL (11.27-16.99) 12/03/22 11:36 Hct 39.3 % (36-47) 12/03/22 11:36 MCV 80.9 fl (85-98) L 12/03/22 11:36 MCH 25.7 pg (27-33) L 12/03/22 11:36 MCHC 31.8 g/dL (30-55) 12/03/22 11:36 RDW 17.1 % (12.1-15.1) H 12/03/22 11:36 Plt Count 447 10^3/cmm (157-399) H 12/03/22 11:36 MPV 9.3 fL (7.4-10.4) 12/03/22 11:36 Neut % (Auto) 71.2 % 12/03/22 11:36 Lymph % (Auto) 17.7 % 12/03/22 11:36 [place] % (Auto) 10.0 % 12/03/22 11:36 Eos % (Auto) 0.3 % 12/03/22 11:36 Baso % (Auto) 0.5 % 12/03/22 11:36 Neut # (Auto) 6.24 10^3/uL (1.8-7.7) 12/03/22 11:36 Lymph # (Auto) 1.6 10^3/uL (0.8-4.8) 12/03/22 11:36 [place] # (Auto) 0.9 10^3/uL (0.2-0.9) 12/03/22 11:36 Eos # (Auto) 0.0 10^3/uL (0.0-0.8) 12/03/22 11:36 Baso # (Auto) 0.0 10^3/uL (0.0-0.1) 12/03/22 11:36 Nucleated RBC % (auto) 0 % 12/03/22 11:36 Nucleated RBCs # 0.0 /100WBC 12/03/22 11:36 PT 13.40 SECONDS (12.1-14.9) 12/03/22 11:36 INR 0.99 (0.8-1.2) 12/03/22 11:36 APTT 32.4 SECONDS (23.9-36.7) 12/03/22 11:36 Sodium 139 mmol/L (136-145) 12/03/22 11:36 Potassium 2.9 mmol/L (3.5-5.1) L 12/03/22 11:36 Chloride 96 mmol/L (98-107) L 12/03/22 11:36 Carbon Dioxide 29 mmol/L (22-29) 12/03/22 11:36 Anion Gap 16.9 (5-19) 12/03/22 11:36 BUN 14 mg/dL (8-23) 12/03/22 11:36 Creatinine 0.8 mg/dL (0.5-0.9) 12/03/22 11:36 GFR Calculation 71.3 mL/min (90-130) L 12/03/22 11:36 Glucose 127 mg/dL (65-115) H 12/03/22 11:36 Calculated Osmolality 290 mOsm/kg (285-295) 12/03/22 11:36 Calcium 9.7 mg/dL (8.5-10.5) 12/03/22 11:36 Total Bilirubin 0.2 mg/dL (0.15-1.2) 12/03/22 11:36 AST 15 U/L (0-32) 12/03/22 11:36 ALT 7 U/L (0-33) 12/03/22 11:36 Alkaline Phosphatase 140 U/L (35-105) H 12/03/22 11:36 Troponin T Baseline 13 ng/L (0-10) H 12/03/22 11:36 Troponin T 120 Minute 14.34 ng/L (0-10) H 12/03/22 14:12 Delta Troponin T 1.34 ABS# (0-10) 12/03/22 14:12 Total Protein 8.1 g/dL (6.6-8.7) 12/03/22 11:36 Albumin 4.4 g/dL (3.5-5.2) 12/03/22 11:36 Globulin 3.7 g/dL (1.3-4.6) 12/03/22 11:36 Lipase 15 U/L (13-60) 12/03/22 11:36 Urine Color Yellow (Yellow) 12/03/22 11:07 Urine Appearance Cloudy (CLEAR) A 12/03/22 11:07 Urine pH 6 (5-7) 12/03/22 11:07 Ur Specific [place] 1.020 (1.005-1.030) 12/03/22 11:07 Urine Protein 2+ (Negative) H 12/03/22 11:07 Urine Glucose (UA) Norm (Normal) 12/03/22 11:07 Urine Ketones 1+ (Negative) H 12/03/22 11:07 Urine Blood Trace (Negative) H 12/03/22 11:07 Urine Nitrate Negative (Negative) 12/03/22 11:07 Urine Bilirubin 1+ (Negative) H 12/03/22 11:07 Urine Urobilinogen 1 mg/dL (Negative) H 12/03/22 11:07 Ur Leukocyte Esterase 2+ (Negative) H 12/03/22 11:07 Urine RBC 0-4 /hpf (0-2) H 12/03/22 11:07 Urine WBC 25-40 /hpf (0-5) H 12/03/22 11:07 Ur Squamous Epith Cells 0-4 /hpf (0-5) H 12/03/22 11:07 Amorphous Sediment 1+ /hpf 12/03/22 11:07 Urine Bacteria 2+ /hpf (NONE) H 12/03/22 11:07 Urine Mucus 4+ /hpf 12/03/22 11:07 Discharge Plan Discharge Condition: Stable Prescriptions: No Action Proventil HFA 90 mcg/actuation HFA aerosol inhaler 1 inh inhalation Q6H PRN (Reason: shortness of breath or wheezing) Qty: 6.7 5RF baclofen 10 mg tablet 10 mg PO BID PRN (Reason: Muscle Spasm) 30 Days Qty: 30 0RF gabapentin 300 mg capsule 300 mg PO TID Qty: 90 5RF ondansetron 4 mg tablet,disintegrating 4 mg PO DAILY PRN (Reason: Nausea And Vomiting) Qty: 30 2RF oxycodone 5 mg tablet 5 mg PO TID PRN (Reason: pain) 30 Days Qty: 90 0RF Rx Instructions: Refill on or after 30-day interval. mirtazapine 15 mg tablet 15 mg PO BEDTIME Qty: 30 1RF levothyroxine 112 mcg tablet 112 mcg PO QAM Qty: 90 1RF dexlansoprazole [Dexilant] 30 mg capsule,biphase delayed releas 30 mg PO BEDTIME Qty: 90 1RF latanoprost 0.005 % drops 1 drp ophthalmic (eye) QPM doxepin 6 mg tablet 6 mg PO BEDTIME PRN (Reason: sleep) ropinirole 5 mg tablet 5 mg PO TID PRN (Reason: Restless Leg(S)) leflunomide 20 mg tablet 20 mg PO QAM promethazine 25 mg tablet 25 mg PO Q6H PRN (Reason: nausea and vomiting) Qty: 20 0RF potassium chloride 20 mEq tablet extended release 20 meq PO DAILY Qty: 7 0RF prednisone 10 mg tablet 10 mg PO TID Referrals: Kaiser Lisa MD [Primary Care Provider] - Coding Level of Care Code ED Care Management Specialist for Ch[facility] Micki
--- NOTE | 2022-12-03 11:06 | CTR_ITS ---
PROCEDURE INFORMATION: Exam: CT Abdomen And Pelvis With Contrast Exam date and time: 12/03/2022 12:52 PM Age: 67 years old Clinical indication: Abdominal pain; Additional info: Abd pain TECHNIQUE: Imaging protocol: Computed tomography of the abdomen and pelvis with contrast. Radiation optimization: All CT scans at this facility use at least one of these dose optimization techniques: automated exposure control; mA and/or kV adjustment per patient size (includes targeted exams where dose is matched to clinical indication); or iterative reconstruction. Contrast material: OMNI 350; Contrast volume: 100 ml; Contrast route: INTRAVENOUS (IV); REPORTING DATA: Count of CT and Cardiac NM exams in prior 12 months: This patient has received 10 known CTs and 0 known cardiac nuclear medicine studies in the 12 months prior to the current study. COMPARISON: CT abdomen pelvis w con* [id number] 11/27/2022 6:40 AM Jasmine annually 2022 RADIATION DOSE METRICS: Total DLP (mGy-cm): 393.09 FINDINGS: Lungs: Lung bases are clear. Diaphragm: Small hiatal hernia. Liver: Normal. No mass. Gallbladder and bile ducts: Gallbladder has been removed. There is moderate dilatation of the common bile duct unchanged. Pancreas: Unremarkable. Main pancreatic duct is not significantly dilated. Spleen: Normal. No splenomegaly. Adrenal glands: Normal. No mass. Kidneys and ureters: There are few small cortical cysts both kidneys too small to adequately characterize otherwise kidneys are unremarkable. Stomach and bowel: Scattered diverticuli large bowel without evidence of diverticulitis. Appendix: No evidence of appendicitis. Intraperitoneal space: Unremarkable. No free air. No significant fluid collection. Vasculature: Abdominal aorta and iliac vessels are diffusely calcified. There is no aortic aneurysm. There is again demonstrated a linear shaped density that may be metallic in nature extending from the infrarenal portion of the IVC medially adjacent to the anterior margin of L4 vertebral body crossing the midline, unchanged from April 2022 etiology of which is unclear. It may have represented a migrated IVC filter which should be correlated with patient's history. Lymph nodes: Unremarkable. No enlarged lymph nodes. Urinary bladder: Unremarkable as visualized. Reproductive: Uterus has been removed. Bones/joints: Moderate degenerative endplate changes L2-L3, stable. Chronic compression fracture L4 treated with vertebroplasty unchanged. Additional vertebroplasty L5 unchanged. No acute bony abnormalities. Soft tissues: Unremarkable. Other findings: TheLung bases are clear. CT/CT abdomen pelvis w con* [id number] IMPRESSION: 1. No acute findings within the abdomen or pelvis. 2. Prior cholecystectomy with stable dilatation the common bile duct. 3. Additional chronic findings as above. COMMENTS: For patients with an IVC filter, recommend assessment for a management plan for the patient's IVC filter. If there is no established management plan, recommend referral to an interventional clinician on a nonemergent basis for evaluation.
[2022-12-03 11:48] LABS: Basophils % 0.5 %; Eosinophils % 0.3 %; Hematocrit 39.3 % (36-47); Lymphocytes # 1.6 10^3/uL (0.8-4.8); Lymphocytes % 17.7 %; Mean Corpuscular HGB Conc 31.8 g/dL (30-55); Mean Corpuscular Hemoglobin 25.7 pg (27-33); Mean Corpuscular Volume 80.9 fl (85-98); Mean Platelet Volume 9.3 fL (7.4-10.4); Monocytes # 0.9 10^3/uL (0.2-0.9); Neutrophils # 6.24 10^3/uL (1.8-7.7); Neutrophils % 71.2 %; Nucleated Red Blood Cells % 0 %; Platelet Count 447 10^3/cmm (157-399); Red Blood Count 4.86 10^6/uL (3.85-5.65); Red Cell Distribution Width 17.1 % (12.1-15.1); White Blood Count 8.77 10^3/uL (3.29-11.43)
[2022-12-03 12:00] LABS: Urine Appearance Cloudy (CLEAR); Urine Color Yellow (Yellow); pH Urine 6 (5-7)
[2022-12-03 12:01] LABS: Add Urine Microscopic? YES; Bilirubin Urine 1+ (Negative); Blood Urine Trace (Negative); Glucose Urine UA Norm (Normal); Ketones Urine 1+ (Negative); Leukocyte Esterase Urine 2+ (Negative); Nitrate Urine Negative (Negative); Protein Urine 2+ (Negative); Urobilinogen Urine 1 mg/dL (Negative)
[2022-12-03 12:02] LABS: INR 0.99 (0.8-1.2)
[2022-12-03 12:02] LABS: Add Urine Culture? Yes; Amorphous Sediment Urine 1+ /hpf; Bacteria Urine 2+ /hpf; Mucus Urine 4+ /hpf; RBC Urine 0-4 /hpf (0-2); Squamous Epithelial Cell Urine 0-4 /hpf (0-5); WBC Urine 25-40 /hpf (0-5)
[2022-12-03 12:03] LABS: Partial Thromboplastin Time 32.4 SECONDS (23.9-36.7)
[2022-12-03 12:10] LABS: Alanine Aminotransferase 7 U/L (0-33); Albumin Level 4.4 g/dL (3.5-5.2); Alkaline Phosphatase 140 U/L (35-105); Anion Gap 16.9 (5-19); Aspartate Amino Transferase 15 U/L (0-32); Blood Urea Nitrogen 14 mg/dL (8-23); Calcium 9.7 mg/dL (8.5-10.5); Carbon Dioxide 29 mmol/L (22-29); Chloride 96 mmol/L (98-107); Globulin 3.7 g/dL (1.3-4.6); Glomerular Filtration Rate 71.3 mL/min (90-130); Glucose 127 mg/dL (65-115); Lipase 15 U/L (13-60); Osmolality Calculated 290 mOsm/kg (285-295); Sodium 139 mmol/L (136-145); Total Bilirubin 0.2 mg/dL (0.15-1.2); Total Protein 8.1 g/dL (6.6-8.7)
[2022-12-03 12:14] LABS: Potassium 2.9 mmol/L (3.5-5.1)
[2022-12-03] MEDS: pantoprazole 40 mg SDV IVP ×2 (12:36→19:42)
[2022-12-03] MEDS: cefTRIAXone 1,000 MG in sodium chloride 0.9% (plus) 50 ML 100 MG IV (12:36)
[2022-12-03] MEDS: morphine 4 mg/mL SDV 1 mL 2 MG IVP ×3 (12:46→19:42)
[2022-12-03] MEDS: iohexol 350 mg/mL 500 mL Btl (per mL) IV (12:58)
--- NOTE | 2022-12-03 14:13 | ECG_ITS ---
[facility] Test Date: 2022-12-03 Pat Name: Tosha Perry Department: Room: Gender: Female Cook Manager: : 1955 Requested By: Sammy Khoury Order Number: [id number] Mirela MD: Chava Mckinley M.D. Measurements Intervals [place] Rate: 53 P: 0 WI: 0 QRS: 33 QRSD: 83 T: 32 QT: 449 QTc: 423 Interpretive Statements ATRIAL FIBRILLATION WITH SLOW VENTRICULAR RESPONSE ST DEVIATION AND MODERATE T-WAVE ABNORMALITY, CONSIDER ANTEROLATERAL ISCHEMIA [-0.1+ mV T-WAVE IN V3-V6] Compared to ECG 06/24/2022 03:17:38 Possible ischemia now present Sinus rhythm no longer present T-wave abnormality still present Electronically Signed On 12-03-2022 15:15:25 CDT by Chava Mckinley M.D. [email or web address]
[2022-12-03 14:36] LABS: Troponin(5th) Baseline 13 ng/L (0-10)
[2022-12-03 14:39] LABS: Troponin 5 2HR 14.34 ng/L (0-10)
[2022-12-03 14:43] LABS: Troponin 5 2HR Delta 1.34 ABS# (0-10)
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
--- NOTE | 2022-12-03 17:47 | PM.HP ---
Providers/Chief Complaint Admitting Physician: Althea Brumfield MD Primary Care Provider: Kaiser Lisa MD Chief Complaint: vomiting, diarrea, weakness History of Present Illness Tosha Perry is a 67 year old female with a past medical history of seropositive rheumatoid arthritis, currently on leflunomide prednisone 10 mg daily, she has had 3 ER visits in the past month due to complaints of recurrent nausea vomiting diarrhea and abdominal pain. On 818 she had presented to the emergency room with the above symptoms. CT of the chest abdomen and pelvis was performed on this day which showed no evidence of dissection, mid to distal esophageal wall thickening with a small hiatal hernia, accentuation of the gastric wall which could reflect wall thickening or nondistention and multiple bilateral subcentimeter lung nodules. Extensive venous collateral vasculature was noted within the chest on the right side suggestive of significant central venous vascular stenosis or occlusion. Patient is known to have a chronically dilated biliary duct. She was diagnosed with possible traveler's diarrhea versus gastroenteritis, received supportive treatment and was discharged home. She returns today complaining of hematemesis and coffee-ground emesis that began this morning at around 2:30 AM. Initially she saw coffee-ground emesis and thereafter saw more bright red blood and was concerned to present to the emergency room. Hemoglobin today stable at 12.5. Noted again his hypokalemia as on previous visits. CT of the abdomen pelvis was negative for any acute findings. Review of Systems General: Reports: 10 or more systems reviewed and unremarkable except in HPI and below Const: Denies: fever(s), chills or body aches Eyes: Denies: change in vision, blurry vision or photophobia ENMT: Reports: hoarseness; Denies: throat pain, enlarged tonsils, odynophagia or nasal congestion Card: Denies: chest pain, palpitations, irregular heart rhythm, edema, swelling of feet/ankles, lightheadedness, pre-syncope, dyspnea on exertion or orthopnea Resp: Denies: dyspnea, productive cough, non-productive cough, wheezing, stridor, pain on inspiration, change in phlegm color, hemoptysis or chest congestion GI: Denies: abdominal pain, nausea, vomiting, hematemesis, coffee ground emesis, dysphagia, heartburn, diarrhea, constipation, GI cramping, change in stool character, hematochezia or melena : Denies: flank pain, difficulty voiding, dysuria, urinary frequency, urinary urgency, urinary hesitancy or hematuria Musc: Denies: neck pain, back pain, extremity pain, joint swelling, joint warmth or deformity Neuro: Denies: headache(s), numbness in extremities, weakness in extremities, sensory changes, difficulty walking, frequent falls, dizziness, vertigo, behavioral changes, Slurred speech present or seizure-like activity Psych: Denies: anxiety, depression, suicidal ideation or homicidal ideation Endo: Denies: polyuria, polydipsia, tired all the time, cold intolerance or hot flashes Jl/Lymph: Denies: easy bruising or easy bleeding Medications/Allergies Home Medications Medication Instructions Recorded Confirmed Last Taken Type albuterol sulfate 90 mcg/actuation 1 inh inhalation Q6H PRN shortness 04/27/22 12/03/22 Unknown Rx aerosol inhaler (Proventil HFA) of breath or wheezing #6.7 grams latanoprost 0.005 % eye drops 1 drp ophthalmic (eye) QPM 06/17/22 12/03/22 11/11/22 History doxepin 6 mg tablet 6 mg PO BEDTIME PRN sleep 08/02/22 12/03/22 Unknown History ondansetron 4 mg disintegrating 4 mg PO DAILY PRN Nausea And 08/13/22 12/03/22 12/02/22 Rx tablet Vomiting #30 tabs oxycodone 5 mg tablet 5 mg PO TID PRN pain 30 days #90 10/07/22 12/03/22 Unknown Rx tabs mirtazapine 15 mg tablet 15 mg PO BEDTIME mental health #30 10/14/22 12/03/22 11/11/22 Rx tabs levothyroxine 112 mcg tablet 112 mcg PO QAM low thyroid #90 tabs 10/15/22 12/03/22 11/12/22 Rx baclofen 10 mg tablet 10 mg PO BID PRN Muscle Spasm 30 10/22/22 12/03/22 Unknown Rx days #30 tabs gabapentin 300 mg capsule 300 mg PO TID chronic pain #90 caps 10/22/22 12/03/22 11/11/22 Rx dexlansoprazole 30 mg 30 mg PO BEDTIME #90 caps 11/26/22 12/03/22 Unknown Rx capsule,biphase delayed release (Dexilant) leflunomide 20 mg tablet 20 mg PO QAM 11/27/22 12/03/22 Unknown History potassium chloride 20 mEq 20 meq PO DAILY #7 tabs 11/27/22 12/03/22 Unknown Rx tablet,extended release promethazine 25 mg tablet 25 mg PO Q6H PRN nausea and 11/27/22 12/03/22 12/02/22 Rx vomiting #20 tabs ropinirole 5 mg tablet 5 mg PO TID PRN Restless Leg(S) 11/27/22 12/03/22 Unknown History prednisone 10 mg tablet 10 mg PO TID 12/03/22 12/03/22 Unknown History Allergies Allergy/AdvReac Type Severity Reaction Status Date / Time methotrexate Allergy Unknown Unknown Verified 12/03/22 09:54 tizanidine Allergy Unknown Unknown Verified 12/03/22 09:54 amitriptyline Allergy ADR-Agitate Verified 12/03/22 09:54 d diphenhydramine Allergy ADR-Agitate Verified 12/03/22 09:54 [From Benadryl] d sulfasalazine AdvReac Intermediate ADR-Nausea Verified 12/03/22 09:54 and acid reflux PFSH Acute PFSH: Medical History Abnormal toxicological findings Acute encephalopathy Allergic rhinitis due to allergen Anxiety and depression Chronic back pain Chronic upper abdominal pain CKD (chronic kidney disease) stage 3, GFR 30-59 ml/min COVID-19 Extrapyramidal and movement disorder Fall as cause of accidental injury in home as place of occurrence Hand injury High risk medication use Hyperlipidemia Hypothyroidism Iron deficiency anemia Lung nodule, solitary Prediabetes Prolonged QT interval RLS (restless legs syndrome) Seropositive rheumatoid arthritis of multiple sites Strain of muscle, fascia and tendon at neck level, initial encounter Substance or medication-induced sleep disorder, insomnia type Surgical History History of ankle surgery left History of appendectomy History of delivery History of cholecystectomy History of hysterectomy with bilateral oophorectomy Previous back surgery Social History Smoking and tobacco status: former smoker Quit status (tobacco): has quit using tobacco Year quit tobacco: 2009 Former quit date comment: Smoked for 9 months Alcohol intake: current Alcohol intake frequency: holidays/special occasions only Substance/Drug Use: never Vitals/I&O/Wt Last Vital Signs Temp 98.3 F 12/03/22 09:46 Pulse 73 12/03/22 17:30 Resp 21 H 12/03/22 17:30 BP 128/55 12/03/22 17:30 Pulse Ox 94 12/03/22 17:30 O2 Del Method Room Air 12/03/22 13:08 12/03/22 12/03/22 12/03/22 06:59 14:59 22:59 Intake Total 50 / 50 Balance 50 / 50 Weight last 48 hrs Weight 57.153 kg Physical Exam Narrative: General: No acute distress, AO x3 HEENT: PERRLA, pupils bilaterally equal and reactive, pallors not present Chest: Normal vesicular breath sounds, no added sounds, equal good air entry bilaterally CVS: S1-S2 regular, no murmurs, no tachycardia, no gallops, no rubs Abdomen: Soft, nontender, no organomegaly, bowel sounds present Neuro: No focal deficits, no facial deformity, AO x3, power 5/5 in all limbs Data 12/03/22 11:36 12/03/22 11:36 Other Labs: Radiology Impressions Abdomen/Pelvis CT 12/03/22 11:06 IMPRESSION: 1. No acute findings within the abdomen or pelvis. 2. Prior cholecystectomy with stable dilatation the common bile duct. 3. Additional chronic findings as above. COMMENTS: For patients with an IVC filter, recommend assessment for a management plan for the patient's IVC filter. If there is no established management plan, recommend referral to an interventional clinician on a nonemergent basis for evaluation. Laboratory Results WBC 8.77 10^3/uL (3.29-11.43) 12/03/22 11:36 RBC 4.86 10^6/uL (3.85-5.65) 12/03/22 11:36 Hgb 12.50 g/dL (11.27-16.99) 12/03/22 11:36 Hct 39.3 % (36-47) 12/03/22 11:36 MCV 80.9 fl (85-98) L 12/03/22 11:36 MCH 25.7 pg (27-33) L 12/03/22 11:36 MCHC 31.8 g/dL (30-55) 12/03/22 11:36 RDW 17.1 % (12.1-15.1) H 12/03/22 11:36 Plt Count 447 10^3/cmm (157-399) H 12/03/22 11:36 MPV 9.3 fL (7.4-10.4) 12/03/22 11:36 Neut % (Auto) 71.2 % 12/03/22 11:36 Lymph % (Auto) 17.7 % 12/03/22 11:36 [place] % (Auto) 10.0 % 12/03/22 11:36 Eos % (Auto) 0.3 % 12/03/22 11:36 Baso % (Auto) 0.5 % 12/03/22 11:36 Neut # (Auto) 6.24 10^3/uL (1.8-7.7) 12/03/22 11:36 Lymph # (Auto) 1.6 10^3/uL (0.8-4.8) 12/03/22 11:36 [place] # (Auto) 0.9 10^3/uL (0.2-0.9) 12/03/22 11:36 Eos # (Auto) 0.0 10^3/uL (0.0-0.8) 12/03/22 11:36 Baso # (Auto) 0.0 10^3/uL (0.0-0.1) 12/03/22 11:36 Nucleated RBC % (auto) 0 % 12/03/22 11:36 Nucleated RBCs # 0.0 /100WBC 12/03/22 11:36 PT 13.40 SECONDS (12.1-14.9) 12/03/22 11:36 INR 0.99 (0.8-1.2) 12/03/22 11:36 APTT 32.4 SECONDS (23.9-36.7) 12/03/22 11:36 Sodium 139 mmol/L (136-145) 12/03/22 11:36 Potassium 2.9 mmol/L (3.5-5.1) L 12/03/22 11:36 Chloride 96 mmol/L (98-107) L 12/03/22 11:36 Carbon Dioxide 29 mmol/L (22-29) 12/03/22 11:36 Anion Gap 16.9 (5-19) 12/03/22 11:36 BUN 14 mg/dL (8-23) 12/03/22 11:36 Creatinine 0.8 mg/dL (0.5-0.9) 12/03/22 11:36 GFR Calculation 71.3 mL/min (90-130) L 12/03/22 11:36 Glucose 127 mg/dL (65-115) H 12/03/22 11:36 Calculated Osmolality 290 mOsm/kg (285-295) 12/03/22 11:36 Calcium 9.7 mg/dL (8.5-10.5) 12/03/22 11:36 Total Bilirubin 0.2 mg/dL (0.15-1.2) 12/03/22 11:36 AST 15 U/L (0-32) 12/03/22 11:36 ALT 7 U/L (0-33) 12/03/22 11:36 Alkaline Phosphatase 140 U/L (35-105) H 12/03/22 11:36 Troponin T Baseline 13 ng/L (0-10) H 12/03/22 11:36 Troponin T 120 Minute 14.34 ng/L (0-10) H 12/03/22 14:12 Delta Troponin T 1.34 ABS# (0-10) 12/03/22 14:12 Total Protein 8.1 g/dL (6.6-8.7) 12/03/22 11:36 Albumin 4.4 g/dL (3.5-5.2) 12/03/22 11:36 Globulin 3.7 g/dL (1.3-4.6) 12/03/22 11:36 Lipase 15 U/L (13-60) 12/03/22 11:36 Urine Color Yellow (Yellow) 12/03/22 11:07 Urine Appearance Cloudy (CLEAR) A 12/03/22 11:07 Urine pH 6 (5-7) 12/03/22 11:07 Ur Specific [place] 1.020 (1.005-1.030) 12/03/22 11:07 Urine Protein 2+ (Negative) H 12/03/22 11:07 Urine Glucose (UA) Norm (Normal) 12/03/22 11:07 Urine Ketones 1+ (Negative) H 12/03/22 11:07 Urine Blood Trace (Negative) H 12/03/22 11:07 Urine Nitrate Negative (Negative) 12/03/22 11:07 Urine Bilirubin 1+ (Negative) H 12/03/22 11:07 Urine Urobilinogen 1 mg/dL (Negative) H 12/03/22 11:07 Ur Leukocyte Esterase 2+ (Negative) H 12/03/22 11:07 Urine RBC 0-4 /hpf (0-2) H 12/03/22 11:07 Urine WBC 25-40 /hpf (0-5) H 12/03/22 11:07 Ur Squamous Epith Cells 0-4 /hpf (0-5) H 12/03/22 11:07 Amorphous Sediment 1+ /hpf 12/03/22 11:07 Urine Bacteria 2+ /hpf (NONE) H 12/03/22 11:07 Urine Mucus 4+ /hpf 12/03/22 11:07 A&P Assessment and plan (1) Upper GI bleed: Presenting as hematemesis today. On recent CTA of the chest abdomen and pelvis there was noted to be mid to lower esophageal thickening. Suspect cause may be related to esophagitis versus gastritis related to chronic steroid or KCl use. Given persistent of symptoms would likely be prudent to proceed with endoscopic evaluation General surgery has been consulted from the emergency room. Currently hemodynamically stable Hemoglobin is at 12. Hypokalemia with potassium of 2.9, supplement with 40 mEq IV, likely related to GI losses. Holding steroid and NSAIDs for now. (2) Nausea vomiting and diarrhea: As needed Zofran, promethazine for symptomatic management. (3) Acute hypokalemia: Related to GI losses Replete with IV as above Plan DVT prophylaxis: SCDs only, no anticoagulation given GI bleeding Full code This documentation was created by [employer] document image technician software. Every effort was made to ensure accuracy of document image technician. Any obvious errors or omissions should be clarified with the author of the document. Attestations Medical Necessity Statement*: Anticipate greater than 2 midnight admission for upper GI bleed, close monitoring, anticipate endoscopic evaluation Coding Level of Care Code Acute Code for Chg Fwd Diagnoses Upper GI bleed K92.2 Nausea vomiting and diarrhea R11.2; R19.7 Acute hypokalemia E87.6
[2022-12-03] MEDS: D5-NS 0.45% + KCL 20 mEq 20 MEQ/1,000 ML BAG 125 MEQ IV (18:05)
[2022-12-03] MEDS: lidocaine 1% 5 ML in potassium chloride premix 100 ML 26.25 ML IV (19:07)
--- NOTE | 2022-12-03 19:51 | ECG_ITS ---
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 Measurements Intervals [place] Rate: 62 P: 72 WI: 163 QRS: 18 QRSD: 92 T: 31 QT: 429 QTc: 438 Interpretive Statements SINUS RHYTHM WITH FREQUENT SUPRAVENTRICULAR PREMATURE COMPLEXES MODERATE T-WAVE ABNORMALITY, CONSIDER ANTEROLATERAL ISCHEMIA [-0.1+ mV T-WAVE IN V3-V6] MODERATE T-WAVE ABNORMALITY, CONSIDER INFERIOR ISCHEMIA [-0.1+ mV T-WAVE IN II/aVF] Compared to ECG 12/03/2022 14:13:41 Atrial fibrillation no longer present T-wave abnormality still present Possible ischemia still present Electronically Signed On 12-04-2022 18:18:42 CDT by Sherine Greene M.D. [id number]
[2022-12-03 19:55] LABS: Troponin 5 6HR 14.13 ng/L (0-10)
[2022-12-03 20:02] LABS: Troponin 5 6HR Delta 1.13 ng/L (0-12)
[2022-12-03] MEDS: ropinirole 2 mg Tablet 4 MG PO (20:07)
[2022-12-03] MEDS: mirtazapine 15 mg Tablet PO (20:07)
[2022-12-03] MEDS: gabapentin 300 mg Capsule PO (20:07)
[2022-12-03] MEDS: ropinirole 1 mg Tablet PO (20:08)
[2022-12-03] MEDS: oxyCODONE 5 mg IR Tab/Cap PO (23:14)
[2022-12-04] VITALS (21 sets, daily range): BP systolic 88–139; BP diastolic 55–79; PULSE 50–101; RESP 14–18; TEMP 36.3–37.2; O2SAT 91–97
[2022-12-04] MEDS: morphine 4 mg/mL SDV 1 mL 2 MG IVP (01:19)
[2022-12-04] MEDS: D5-NS 0.45% + KCL 20 mEq 20 MEQ/1,000 ML BAG 125 MEQ IV ×3 (02:20→22:20)
[2022-12-04] MEDS: HYDROmorphone 1 mg/mL INJ 1 mL 0.5 MG IVP ×5 (05:13→23:34)
[2022-12-04] MEDS: levothyroxine 112 mcg Tablet PO (05:15)
[2022-12-04 05:32] LABS: Basophils % 0.4 %; Eosinophils # 0.1 10^3/uL (0.0-0.8); Eosinophils % 2.1 %; Hematocrit 34.3 % (36-47); Lymphocytes # 1.9 10^3/uL (0.8-4.8); Lymphocytes % 32.7 %; Mean Corpuscular HGB Conc 30.9 g/dL (30-55); Mean Corpuscular Hemoglobin 25.6 pg (27-33); Mean Corpuscular Volume 82.9 fl (85-98); Mean Platelet Volume 9.7 fL (7.4-10.4); Monocytes # 0.6 10^3/uL (0.2-0.9); Monocytes % 10.8 %; Neutrophils # 3.03 10^3/uL (1.8-7.7); Neutrophils % 53.6 %; Nucleated Red Blood Cells % 0 %; Platelet Count 335 10^3/cmm (157-399); Red Blood Count 4.14 10^6/uL (3.85-5.65); Red Cell Distribution Width 17.4 % (12.1-15.1); White Blood Count 5.65 10^3/uL (3.29-11.43)
[2022-12-04 05:50] LABS: Alanine Aminotransferase < 5 U/L (0-33); Albumin Level 3.5 g/dL (3.5-5.2); Alkaline Phosphatase 116 U/L (35-105); Anion Gap 12.4 (5-19); Aspartate Amino Transferase 15 U/L (0-32); Blood Urea Nitrogen 10 mg/dL (8-23); Calcium 8.5 mg/dL (8.5-10.5); Carbon Dioxide 28 mmol/L (22-29); Chloride 105 mmol/L (98-107); Globulin 3.1 g/dL (1.3-4.6); Glomerular Filtration Rate 71.3 mL/min (90-130); Glucose 119 mg/dL (65-115); Osmolality Calculated 294 mOsm/kg (285-295); Potassium 3.4 mmol/L (3.5-5.1); Sodium 142 mmol/L (136-145); Total Bilirubin 0.2 mg/dL (0.15-1.2); Total Protein 6.6 g/dL (6.6-8.7)
[2022-12-04] MEDS: ropinirole 2 mg Tablet 4 MG PO ×2 (08:31→19:09)
[2022-12-04] MEDS: oxyCODONE 5 mg IR Tab/Cap PO ×2 (08:36→19:09)
[2022-12-04] MEDS: gabapentin 300 mg Capsule PO ×3 (08:38→20:29)
[2022-12-04] MEDS: pantoprazole 40 mg SDV IVP ×2 (08:56→20:29)
--- NOTE | 2022-12-04 09:02 | PC.CHAP ---
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 [] Patient/Family/Request visit [] Outpatient visit [] Follow-up visit [] Physician referral [] Code/Alert [x] Routine visit [] Staff referral [] Actively dying [] Patient sleeping [x] Family support [] [] Out of room [] Palliative care [] [] Receiving care in room [] Pre-surgical visit [] Trauma [] Long length of stay [] ICU visit [] Other: Relational/Emotional Strength [x] Patient feels connected with others/family/visitors/staff [] Distress [] Loneliness/isolation [] Abandonment Spirituality of Patient [x] Person of Shaina [] Attends Church of their Shaina [x] Believes in Prayer [] Reads Bible or Sabianism materials [] There are Spiritual issues to be addressed Bill Collector Interventions [x Prayer [x] Active listening [] Non-anxious presence [x] Spiritual/emotional support [] Crisis/trauma care [] Spiritual counseling [] Bereavement support [] Provided bereavement packet [] Provided Bible/devotional materials [] Provided toy/stuffed animal, coloring book to patient or family member [] Provided Communion [] Anointing/[place] [] Salvation [x] Completed spiritual assessment [] Other: Impact on Illness or Injury [] Angry [] Fearful [] Anxious [] Often cries [] Exhaustion [] Unable to work [] Unable to attend yarsanism [] Unable to walk/stand [] Unable to read [] Unable to drive [] Unable to eat/drink [] Unable to sleep [] Unable to be with family [] Patient intubated [] Other: Summary Time spent with patient 5 min
[2022-12-04] MEDS: sodium chloride 0.9% 1,000 ML 30 ML IV (10:18)
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
--- NOTE | 2022-12-04 15:09 | ANE.PACU2 ---
Inpatient post-anesthesia follow up: Airway intact: Yes Vital signs: Temperature 97.4 F Pulse Rate 61 Respiratory Rate 17 Blood Pressure 139/67 Pulse Oximetry 97 Oxygen Delivery Me thod Room Air Oxygen Flow Rate Fraction of Inspir ed Oxygen Hydration adequate: Yes Nausea and vomiting: No Pain level: 1 Mental status: Baseline
--- NOTE | 2022-12-04 16:40 | PM.PN ---
Subjective Subjective: No further episodes of hematemesis. Completed endoscopy this morning which showed thickening at the pylorus for which biopsy was taken. Also evidence of esophagitis without any active bleeding. Pylorus was unable to be traversed through the regular scope, will likely lead additional endoscopy as an outpatient with pediatric scopes. We will give her an outpatient referral to GI since otherwise appears to have stabilized today. Complains of some persisting nausea today, and also has some abdominal epigastric discomfort. Does not feel comfortable going to home today. Medications: Reviewed: Yes Vitals/I&O/Wt Last Vital Signs Temp 97.4 F L 12/04/22 12:20 Pulse 60 12/04/22 14:00 Resp 17 12/04/22 14:09 BP 139/67 12/04/22 12:20 Pulse Ox 97 12/04/22 12:20 O2 Del Method Room Air 12/04/22 12:20 12/04/22 12/04/22 12/04/22 06:59 14:59 22:59 Intake Total 998.75 / 1136.25 1200 / 1200 Balance 998.75 / 1136.25 1200 / 1200 Weight last 48 hrs Weight 57.153 kg Physical Exam Narrative: General: No acute distress, AO x3 HEENT: PERRLA, pupils bilaterally equal and reactive, pallors not present Chest: Normal vesicular breath sounds, no added sounds, equal good air entry bilaterally CVS: S1-S2 regular, no murmurs, no tachycardia, no gallops, no rubs Abdomen: Soft, nontender, no organomegaly, bowel sounds present Neuro: No focal deficits, no facial deformity, AO x3, power 5/5 in all limbs Data 12/04/22 05:20 12/04/22 05:20 Micro: Microbiology 12/03/22 11:07 Urine Culture - Preliminary Urine,Clean Catch A&P Assessment and plan (1) Upper GI bleed: Presenting as hematemesis status post endoscopy , findings as above endoscopic evaluation 10, down from Hemoglobin is at 10, down from 12. Hypokalemia improving Continue protonix today and start carafate 1g BID trend Hb in am as dropped today 12--10 , if stable anticipate discharge in am (2) Nausea vomiting and diarrhea: As needed Zofran, promethazine for symptomatic management. (3) Acute hypokalemia: Related to GI losses Replete with IV as above Plan DVT prophylaxis: SCDs only, no anticoagulation given GI bleeding Full code This documentation was created by [employer] glaze supervisor software. Every effort was made to ensure accuracy of glaze supervisor. Any obvious errors or omissions should be clarified with the author of the document. Attestations Medical Necessity Statement*: Status post endoscopy today, add Carafate, pain management, anticipate discharge over the next 24 hours if hemoglobin remains stable Coding Level of Care Code Acute Code for Chg Fwd Diagnoses Upper GI bleed K92.2 Nausea vomiting and diarrhea R11.2; R19.7 Acute hypokalemia E87.6
[2022-12-04] MEDS: aluminum-mag hydrox-simethicon 30 ML, sucralfate oral liq 1 GM PO (17:27)
[2022-12-04] MEDS: baclofen 10 mg Tablet PO (19:09)
[2022-12-04] MEDS: sucralfate 1 gm Tablet PO (20:29)
[2022-12-04] MEDS: mirtazapine 15 mg Tablet PO (20:29)
[2022-12-05] VITALS (14 sets, daily range): BP systolic 107–126; BP diastolic 54–71; PULSE 48–65; RESP 15–53; TEMP 36.4–36.9; O2SAT 94–96
[2022-12-05 05:47] LABS: Basophils % 0.7 %; Eosinophils # 0.1 10^3/uL (0.0-0.8); Eosinophils % 2.4 %; Hematocrit 31.9 % (36-47); Lymphocytes # 1.8 10^3/uL (0.8-4.8); Mean Corpuscular HGB Conc 30.1 g/dL (30-55); Mean Corpuscular Hemoglobin 25.4 pg (27-33); Mean Corpuscular Volume 84.4 fl (85-98); Mean Platelet Volume 9.7 fL (7.4-10.4); Monocytes # 0.5 10^3/uL (0.2-0.9); Monocytes % 11.9 %; Neutrophils % 41.3 %; Nucleated Red Blood Cells % 0 %; Platelet Count 287 10^3/cmm (157-399); Red Blood Count 3.78 10^6/uL (3.85-5.65); Red Cell Distribution Width 17.8 % (12.1-15.1); White Blood Count 4.12 10^3/uL (3.29-11.43)
[2022-12-05] MEDS: ondansetron 2 mg/ML SDV 2 mL 4 MG IVP (05:47)
[2022-12-05] MEDS: levothyroxine 112 mcg Tablet PO (05:55)
[2022-12-05] MEDS: oxyCODONE 5 mg IR Tab/Cap 7.5 MG PO ×3 (05:55→23:49)
[2022-12-05] MEDS: sucralfate 1 gm Tablet PO ×4 (05:59→21:14)
--- NOTE | 2022-12-05 06:00 | PC.NURSE ---
Patient was requesting dilaudid but heart rate was 45-50, patient refused oxycodone 5. Patient was stating she was in severe pain and that wouldn't help. Dr. Ray notified and order received for oxycodone 7.5 TID.
[2022-12-05] MEDS: D5-NS 0.45% + KCL 20 mEq 20 MEQ/1,000 ML BAG 125 MEQ IV (06:10)
[2022-12-05 06:12] LABS: Alanine Aminotransferase < 5 U/L (0-33); Albumin Level 3.2 g/dL (3.5-5.2); Alkaline Phosphatase 101 U/L (35-105); Anion Gap 12.4 (5-19); Aspartate Amino Transferase 14 U/L (0-32); Blood Urea Nitrogen 7 mg/dL (8-23); Calcium 8.7 mg/dL (8.5-10.5); Carbon Dioxide 23 mmol/L (22-29); Chloride 105 mmol/L (98-107); Globulin 2.7 g/dL (1.3-4.6); Glomerular Filtration Rate 83.2 mL/min (90-130); Glucose 117 mg/dL (65-115); Osmolality Calculated 283 mOsm/kg (285-295); Potassium 3.4 mmol/L (3.5-5.1); Sodium 137 mmol/L (136-145); Total Bilirubin 0.2 mg/dL (0.15-1.2); Total Protein 5.9 g/dL (6.6-8.7)
[2022-12-05] MEDS: pantoprazole 40 mg SDV IVP (08:11)
[2022-12-05] MEDS: gabapentin 300 mg Capsule PO ×3 (08:11→20:37)
[2022-12-05] MEDS: HYDROmorphone 1 mg/mL INJ 1 mL 0.5 MG IVP ×2 (09:10→13:31)
--- NOTE | 2022-12-05 09:52 | ECG_ITS ---
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 Measurements Intervals [place] Rate: 50 P: 64 [place]: 180 QRS: 10 QRSD: 72 T: 25 QT: 404 QTc: 371 Interpretive Statements SINUS BRADYCARDIA WITH OCCASIONAL SUPRAVENTRICULAR PREMATURE COMPLEXES LOW QRS VOLTAGE IN PRECORDIAL LEADS [QRS DEFLECTION < 1.0 mV IN CHEST LEADS] Compared to ECG 12/03/2022 18:34:11 Low QRS voltage now present Sinus rhythm no longer present T-wave abnormality no longer present Possible ischemia no longer present Electronically Signed On 12-05-2022 14:41:30 CDT by Chava Mckinley M.D. [id number]
[2022-12-05 11:03] LABS: Troponin(5th) Baseline 11 ng/L (0-10)
--- NOTE | 2022-12-05 11:09 | PC.NURSE ---
Patients spouse brought a [employer] breakfast sandwich to eat. Not compliant with diet
[2022-12-05] MEDS: baclofen 10 mg Tablet PO (11:57)
--- NOTE | 2022-12-05 12:13 | ECG_ITS ---
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 Measurements Intervals [place] Rate: 68 P: 51 [place]: 159 QRS: 5 QRSD: 89 T: 16 QT: 391 QTc: 417 Interpretive Statements SINUS RHYTHM WITH FREQUENT SUPRAVENTRICULAR PREMATURE COMPLEXES LOW QRS VOLTAGE IN PRECORDIAL LEADS [QRS DEFLECTION < 1.0 mV IN CHEST LEADS] Compared to ECG 12/05/2022 10:04:10 Sinus bradycardia no longer present Electronically Signed On 12-05-2022 14:45:04 CDT by Chava Mckinley M.D. [email or web address] [facility] [email or web address].[employer]/store/[id number]
[2022-12-05 12:49] LABS: D Dimer 2.31 ug/mLFEU (0-0.59)
[2022-12-05 13:10] LABS: Troponin 5 2HR 11.48 ng/L (0-10)
[2022-12-05 13:13] LABS: Troponin 5 2HR Delta 0.48 ABS# (0-10)
--- NOTE | 2022-12-05 16:13 | ECG_ITS ---
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 Measurements Intervals [place] Rate: 57 P: -2 [place]: 166 QRS: 37 QRSD: 89 T: 36 QT: 397 QTc: 387 Interpretive Statements SINUS BRADYCARDIA LOW QRS VOLTAGE IN PRECORDIAL LEADS [QRS DEFLECTION < 1.0 mV IN CHEST LEADS] Compared to ECG 12/05/2022 12:12:01 Sinus rhythm no longer present Electronically Signed On 12-05-2022 17:11:48 CDT by Chava Mckinley M.D. [email or web address].The [address]/store/[id number]
--- NOTE | 2022-12-05 17:13 | P.PN_ITS ---
Subjective Subjective: Patient complaining of persisting pain in the back, additionally reports worsened chest pain today. Overnight heart rate baseline with sinus bradycardia 55 bpm, did not receive doses of IV Dilaudid overnight. She is quite upset this morning about the same. Medications: Reviewed: Yes Vitals/I&O/Wt Last Vital Signs Temp 98.0 F 12/05/22 15:47 Pulse 65 12/05/22 15:47 Resp 17 12/05/22 15:47 BP 107/60 12/05/22 15:47 Pulse Ox 96 12/05/22 15:47 O2 Del Method Room Air 12/05/22 08:00 12/05/22 12/05/22 12/05/22 06:59 14:59 22:59 Intake Total 979.167 / 3419.167 360 / 360 Balance 979.167 / 3419.167 360 / 360 Physical Exam Narrative: General: No acute distress, AO x3 HEENT: PERRLA, pupils bilaterally equal and reactive, pallors not present Chest: Normal vesicular breath sounds, no added sounds, equal good air entry bilaterally CVS: S1-S2 regular, no murmurs, no tachycardia, no gallops, no rubs Abdomen: Soft, nontender, no organomegaly, bowel sounds present Neuro: No focal deficits, no facial deformity, AO x3, power 5/5 in all limbs Data 12/05/22 05:32 12/05/22 05:32 Micro: Microbiology 12/03/22 11:07 Urine Culture - Final Urine,Clean Catch A&P Assessment and plan (1) Upper GI bleed: Presenting as hematemesis Hemoglobin currently at 9.6, down from 12 upon admission. No further episodes of hematemesis. Likely as a result of the hematemesis episode that occurred on day of admission. status post endoscopy , findings of esophagitis. Continue protonix 40mg iv q12h and continue carafate 1g BID (2) Chest pain: Patient complains of chest pain and upper back discomfort today. This has been somewhat of a chronic complaint for her and likely related to the esophagitis that has now been discovered on endoscopy evaluation. However there is severe anxiety related to this. Check EKG and troponin series. Baseline EKG does not show any acute ST-T wave changes. Baseline troponin currently at 11, 2-hour trend at 11.48, delta is not significant. Low concern for cardiac event. She has a remote history of lower extremity DVT. States that she had a severe reaction to anticoagulation, though unable to specify the nature of this yuliet ction. She has an IVC filter in place, appears to be surprised to learn about this. Low suspicion for PE, however given pertinent past history of DVT, she was screened with a D-dimer. D-dimer returned at 2.31, down from 2.97 in April this year. Recent CTA of the chest on November 27, 2022 when she had presented with similar complaints had shown no evidence of PE or dissection. Diffuse atherosclerosis was noted. Low suspicion for PE currently. She is saturating well on room air, she is not tachypneic or dyspneic. Able to talk in complete sentences. She is asking for increased dose of opiates and wanting to continue this as IV. Discussed with her extensively that she needs optimization of her pain medication regimen as outpatient including opiates, however optimization of pain medication is limited on an inpatient stay due to lack of availability at availability of pain management services inpatient at the hospital. We will provide her with appropriate referrals at discharge. Also discussed with her that we would like to start replicating her home medication regimen while in the hospital which cannot include IV opiates therefore would use it very minimally. Discussed adding Cymbalta. She is not willing to try other SSRIs as previously she did not react well to fluoxetine again unable to tell me the exact reaction. (3) Nausea vomiting and diarrhea: now resolved (4) Acute hypokalemia: Related to GI losses Plan DVT prophylaxis: SCDs only, no anticoagulation given GI bleeding Full code This documentation was created by [employer] extraction supervisor software. Every effort was made to ensure accuracy of extraction supervisor. Any obvious errors or omissions should be clarified with the author of the document. Attestations Medical Necessity Statement*: Optimize pain regimen today. Oxycodone increased to 7.5 mg 3 times daily overnight. We will continue same. Add Cymbalta. Coding Level of Care Code Acute Code for Chg Fwd Diagnoses Upper GI bleed K92.2 Chest pain R07.9 Nausea vomiting and diarrhea R11.2; R19.7 Acute hypokalemia E87.6
--- NOTE | 2022-12-05 18:08 | PC.NURSE ---
Carafate late due to starting an IV two other patients.
[2022-12-05 20:28] LABS: Troponin 5 6HR 10.23 ng/L (0-10)
[2022-12-05 20:31] LABS: Troponin 5 6HR Delta -0.77 ng/L (0-12)
[2022-12-05] MEDS: ropinirole 1 mg Tablet PO (20:37)
[2022-12-05] MEDS: ropinirole 2 mg Tablet 4 MG PO (20:37)
[2022-12-05] MEDS: oxyCODONE 5 mg IR Tab/Cap 3.75 MG PO ×2 (20:38→21:14)
[2022-12-05] MEDS: mirtazapine 15 mg Tablet PO (20:38)
--- NOTE | 2022-12-05 20:57 | PC.NURSE ---
Patient lost IV access, multiple attempts between day shift and night time nanny, night time nanny charge nurse and warehouse foreman attempted and were unsuccessful. Patient is complaining of severe pain Po oxycodone not avaliable yet. Dr. Ray contacted regarding alternate pain medication options. Order received for 3.75 Oxycodone one time.Patient recieved dose but is complaining of severe pain and would like to take something else. Dr. Ray contacted again and told that IV access is still unsuccessful and patient is requesting dilaudid. Dr. Ray said do not give any dilaudid, order recieved for an additional dose of 3.75 oxycodone and then give her oxycodone as ordered and to monitor for respiratiory depression and signs of opioid overdose.
[2022-12-06] VITALS (7 sets, daily range): BP systolic 111–149; BP diastolic 66–78; PULSE 52–58; RESP 16–18; TEMP 36.5–36.8; O2SAT 93–96
[2022-12-06] MEDS: levothyroxine 112 mcg Tablet PO (06:03)
[2022-12-06] MEDS: sucralfate 1 gm Tablet PO (06:03)
[2022-12-06] MEDS: oxyCODONE 5 mg IR Tab/Cap 7.5 MG PO (08:01)
[2022-12-06] MEDS: baclofen 10 mg Tablet PO (08:32)
[2022-12-06] MEDS: gabapentin 300 mg Capsule PO (08:32)
[2022-12-06] MEDS: duloxetine 30 mg Capsule PO (08:33)
[2022-12-06] MEDS: ropinirole 1 mg Tablet PO (08:38)
[2022-12-06] MEDS: ropinirole 2 mg Tablet 4 MG PO (08:38)
--- NOTE | 2022-12-06 10:28 | ECG_ITS ---
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 Measurements Intervals [place] Rate: 54 P: 0 [place]: 0 QRS: 18 QRSD: 75 T: 33 QT: 400 QTc: 380 Interpretive Statements SINUS BRADYCARDIA WITH 2:1 AV block LOW QRS VOLTAGE IN PRECORDIAL LEADS [QRS DEFLECTION < 1.0 mV IN CHEST LEADS] Compared to ECG 12/05/2022 16:28:47 No significant changes Electronically Signed On 12-06-2022 15:15:34 CDT by Chava Mckinley M.D. [email or web address].[employer]store/[id number]
--- NOTE | 2022-12-06 18:59 | PM.DCS ---
Discharge Providers Date of Admission: 12/03/22 15:20 Date of Discharge: December 06, 2022 Attending Provider at Admission: Althea Brumfield MD Attending Provider at Discharge: Althea Brumfield MD Primary Care Provider: Kaiser Lisa MD Diagnoses at Discharge Discharge Diagnosis (1) Upper GI bleed: Status: Acute (2) Chest pain: Status: Acute (3) Nausea vomiting and diarrhea: Status: Inactive (4) Acute hypokalemia: Status: Inactive Reason for Visit Reason for Visit: vomiting, diarrea, weakness Brief History: Tosha Perry is a 67 year old female with a past medical history of seropositive rheumatoid arthritis, currently on leflunomide prednisone 10 mg daily, she has had 3 ER visits in the past month due to complaints of recurrent nausea vomiting diarrhea and abdominal pain.?Currently she was admitted on 12/03 with hematemesis. Hospital course as below: (1) Upper GI bleed: Presenting as hematemesis Hemoglobin stabilized at 9.6 No further episodes of hematemesis in the hospital.? status post endoscopy , findings of esophagitis and thickened pylorus. Scope was unable to be traversed through the pylorus. Will need further endoscopic evaluation. Referral has been provided to Dr. Guzman, from gastroenterology in [place]. Continue protonix 40mg po q12h and?add carafate 1g BID (2) Chest pain on 12/05: Patient had transient c/o chest pain and upper back discomfort on 12/05.? This has been somewhat of a chronic complaint for her and likely related to the esophagitis that has now been discovered on endoscopy evaluation. troponin series without any remarkable trend 11--> 11--> 10 Baseline EKG does not show any acute ST-T wave changes. Intermittently on telemetry patient was noted to have what appeared to be multiple VPCs versus intermittent 2 is to 1 AV block. 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 She had an event monitor placed in July which had shown a baseline sinus rhythm with average heart rate of 68 bpm. There was 39% episodes of sinus bradycardia noted to be occasional ventricular ectopics and frequent supraventricular ectopics. She had bradycardia recorded down to 37 bpm at its lowest point. She has an upcoming appointment with Dr. Greene in early December to review results of this event monitor. Her chest pain is completely resolved on 12/06/2022 after increasing oxycodone from 5 mg 3 times daily to 7.5 mg 3 times daily. She feels well today on the day of discharge and wishes to return home. Low suspicion for PE, however given pertinent past history of DVT, she was screened with a D-dimer.? D-dimer returned at 2.31, down from 2.97 in April this year. She remained on room air, no complaints of dyspnea or tachypnea. Recent CTA of the chest on November 27, 2022 when she had presented with similar complaints had shown no evidence of PE or dissection.? Diffuse atherosclerosis was noted.? Low suspicion for PE currently.? Discussed with her extensively that she needs optimization of her pain medication regimen as outpatient including opiates, however optimization of pain medication is limited on an inpatient stay due to lack of availability of pain management services inpatient at the hospital.? She already follows with Dr. Powell from pain management, however specifically would like to be set up with pain management for opiate management. I am uncertain if Dr. Powell' office offers opiate management services, since today is the weekend (Wednesday), unable to place calls to the office to verify the same. She is encouraged to call the office on Wednesday. Additional local resources provided regarding Suboxone clinic should patient wish to wean off opiates. Discussed adding Cymbalta, however deferred for now since she is already on doxepin- defer to PCP regarding change in medications.? (3) Nausea vomiting and diarrhea: now resolved (4) Acute hypokalemia: Related to GI losses, improved, K resumed at discharge alongside proronix and carafate Physical Exam Narrative: General: No acute distress, AO x3 HEENT: PERRLA, pupils bilaterally equal and reactive, pallors not present Chest: Normal vesicular breath sounds, no added sounds, equal good air entry bilaterally CVS: S1-S2 regular, no murmurs, no tachycardia, no gallops, no rubs Abdomen: Soft, nontender, no organomegaly, bowel sounds present Neuro: No focal deficits, no facial deformity, AO x3, power 5/5 in all limbs Discharge Data Studies Completed and Pending Completed Studies During Hospitalization Category Date Time Status CT abdomen pelvis w con* [id number] Stat Cat Scan 12/03/22 11:06 Completed Pending at discharge Category Date Time Status Gastricult Occult BLD Stat Lab 12/03/22 11:05 Ordered Pathology: Surgical [PTH] Routine Pth 12/04/22 11:57 Received Radiology Impressions Abdomen/Pelvis CT 12/03/22 11:06 IMPRESSION: 1. No acute findings within the abdomen or pelvis. 2. Prior cholecystectomy with stable dilatation the common bile duct. 3. Additional chronic findings as above. COMMENTS: For patients with an IVC filter, recommend assessment for a management plan for the patient's IVC filter. If there is no established management plan, recommend referral to an interventional clinician on a nonemergent basis for evaluation. Laboratory Results WBC 4.12 10^3/uL (3.29-11.43) 12/05/22 05:32 RBC 3.78 10^6/uL (3.85-5.65) L 12/05/22 05:32 Hgb 9.60 g/dL (11.27-16.99) L 12/05/22 05:32 Hct 31.9 % (36-47) L 12/05/22 05:32 MCV 84.4 fl (85-98) L 12/05/22 05:32 MCH 25.4 pg (27-33) L 12/05/22 05:32 MCHC 30.1 g/dL (30-55) 12/05/22 05:32 RDW 17.8 % (12.1-15.1) H 12/05/22 05:32 Plt Count 287 10^3/cmm (157-399) 12/05/22 05:32 MPV 9.7 fL (7.4-10.4) 12/05/22 05:32 Neut % (Auto) 41.3 % 12/05/22 05:32 Lymph % (Auto) 43.0 % 12/05/22 05:32 Brantley % (Auto) 11.9 % 12/05/22 05:32 Eos % (Auto) 2.4 % 12/05/22 05:32 Baso % (Auto) 0.7 % 12/05/22 05:32 Neut # (Auto) 1.70 10^3/uL (1.8-7.7) L 12/05/22 05:32 Lymph # (Auto) 1.8 10^3/uL (0.8-4.8) 12/05/22 05:32 Br[place]ley # (Auto) 0.5 10^3/uL (0.2-0.9) 12/05/22 05:32 Eos # (Auto) 0.1 10^3/uL (0.0-0.8) 12/05/22 05:32 Baso # (Auto) 0.0 10^3/uL (0.0-0.1) 12/05/22 05:32 Nucleated RBC % (auto) 0 % 12/05/22 05:32 Nucleated RBCs # 0.0 /100WBC 12/05/22 05:32 PT 13.40 SECONDS (12.1-14.9) 12/03/22 11:36 INR 0.99 (0.8-1.2) 12/03/22 11:36 APTT 32.4 SECONDS (23.9-36.7) 12/03/22 11:36 D-Dimer 2.31 ug/mLFEU (0-0.59) H 12/05/22 05:32 Sodium 137 mmol/L (136-145) 12/05/22 05:32 Potassium 3.4 mmol/L (3.5-5.1) L 12/05/22 05:32 Chloride 105 mmol/L (98-107) 12/05/22 05:32 Carbon Dioxide 23 mmol/L (22-29) 12/05/22 05:32 Anion Gap 12.4 (5-19) 12/05/22 05:32 BUN 7 mg/dL (8-23) L 12/05/22 05:32 Creatinine 0.7 mg/dL (0.5-0.9) 12/05/22 05:32 GFR Calculation 83.2 mL/min (90-130) L 12/05/22 05:32 Glucose 117 mg/dL (65-115) H 12/05/22 05:32 Calculated Osmolality 283 mOsm/kg (285-295) L 12/05/22 05:32 Calcium 8.7 mg/dL (8.5-10.5) 12/05/22 05:32 Total Bilirubin 0.2 mg/dL (0.15-1.2) 12/05/22 05:32 AST 14 U/L (0-32) 12/05/22 05:32 ALT < 5 U/L (0-33) 12/05/22 05:32 Alkaline Phosphatase 101 U/L (35-105) 12/05/22 05:32 Troponin T Baseline 11 ng/L (0-10) H 12/05/22 10:29 Troponin T 120 Minute 11.48 ng/L (0-10) H 12/05/22 12:35 Delta Troponin T 0.48 ABS# (0-10) 12/05/22 12:35 Troponin T Hi Sens 6Hr 10.23 ng/L (0-10) H 12/05/22 19:50 Troponin T Hi Sens 6Hr Delta -0.77 ng/L (0-12) L 12/05/22 19:50 Total Protein 5.9 g/dL (6.6-8.7) L 12/05/22 05:32 Albumin 3.2 g/dL (3.5-5.2) L 12/05/22 05:32 Globulin 2.7 g/dL (1.3-4.6) 12/05/22 05:32 Lipase 15 U/L (13-60) 12/03/22 11:36 Urine Color Yellow (Yellow) 12/03/22 11:07 Urine Appearance Cloudy (CLEAR) A 12/03/22 11:07 Urine pH 6 (5-7) 12/03/22 11:07 Ur Specific [place] 1.020 (1.005-1.030) 12/03/22 11:07 Urine Protein 2+ (Negative) H 12/03/22 11:07 Urine Glucose (UA) Norm (Normal) 12/03/22 11:07 Urine Ketones 1+ (Negative) H 12/03/22 11:07 Urine Blood Trace (Negative) H 12/03/22 11:07 Urine Nitrate Negative (Negative) 12/03/22 11:07 Urine Bilirubin 1+ (Negative) H 12/03/22 11:07 Urine Urobilinogen 1 mg/dL (Negative) H 12/03/22 11:07 Ur Leukocyte Esterase 2+ (Negative) H 12/03/22 11:07 Urine RBC 0-4 /hpf (0-2) H 12/03/22 11:07 Urine WBC 25-40 /hpf (0-5) H 12/03/22 11:07 Ur Squamous Epith Cells 0-4 /hpf (0-5) H 12/03/22 11:07 Amorphous Sediment 1+ /hpf 12/03/22 11:07 Urine Bacteria 2+ /hpf (NONE) H 12/03/22 11:07 Urine Mucus 4+ /hpf 12/03/22 11:07 Vitals Last Vital Signs Temp 97.8 F 12/06/22 12:23 Pulse 56 L 12/06/22 12:23 Resp 16 12/06/22 12:23 BP 111/68 12/06/22 12:23 Pulse Ox 95 12/06/22 12:23 O2 Del Method Room Air 12/06/22 10:55 Discharge Plan Discharge Patient Disposition: Home Condition: Stable Prescriptions: New sucralfate 1 gram Tablet 1 g PO AC&BEDTIME 30 Days Qty: 60 0RF Protonix 40 mg tablet,delayed release (DR/EC) 40 mg PO Q12H 30 Days Qty: 60 0RF oxycodone 5 mg tablet 7.5 mg PO TID PRN (Reason: pain) 7 Days Qty: 21 0RF Continued Proventil HFA 90 mcg/actuation HFA aerosol inhaler 1 inh inhalation Q6H PRN (Reason: shortness of breath or wheezing) Qty: 6.7 5RF baclofen 10 mg tablet 10 mg PO BID PRN (Reason: Muscle Spasm) 30 Days Qty: 30 0RF gabapentin 300 mg capsule 300 mg PO TID Qty: 90 5RF ondansetron 4 mg tablet,disintegrating 4 mg PO DAILY PRN (Reason: Nausea And Vomiting) Qty: 30 2RF mirtazapine 15 mg tablet 15 mg PO BEDTIME Qty: 30 1RF levothyroxine 112 mcg tablet 112 mcg PO QAM Qty: 90 1RF latanoprost 0.005 % drops 1 drp ophthalmic (eye) QPM doxepin 6 mg tablet 6 mg PO BEDTIME PRN (Reason: sleep) ropinirole 5 mg tablet 5 mg PO TID PRN (Reason: Restless Leg(S)) leflunomide 20 mg tablet 20 mg PO QAM promethazine 25 mg tablet 25 mg PO Q6H PRN (Reason: nausea and vomiting) Qty: 20 0RF potassium chloride 20 mEq tablet extended release 20 meq PO DAILY Qty: 7 0RF prednisone 10 mg tablet 10 mg PO TID Discontinued oxycodone 5 mg tablet 5 mg PO TID PRN (Reason: pain) 30 Days Qty: 90 0RF Rx Instructions: Refill on or after 30-day interval. dexlansoprazole [Dexilant] 30 mg capsule,biphase delayed releas 30 mg PO BEDTIME Qty: 90 1RF Discharge Orders: Discharge Order (Routine); Ordered 12/06/22 Ordered By: Althea Brumfield Referrals: Paxton Guzman Sr., MD [Other] - 3 weeks Kaiser Lisa MD [Primary Care Provider] - 7-10 days Discharge Diet: Usual diet Patient Instructions: Sucralfate (By mouth), Pantoprazole (By mouth) (Protonix), GI Discharge Instructions, Opioid Safety Activity Restrictions/Additional Instructions: Potential opiate management clinics [facility] [address] , [place] [address] [facility] [address] [place], [place] [id number] Discharge Attestations Time Spent in Discharge Care*: greater than 30 min Status at Discharge: Cognitive status at discharge: cognitively intact, Behavioral status at discharge: cooperative, Quality Metrics Clinical Quality Measures [ No reported AMI, CVA or VTE this stay] Coding Level of Care Code Acute Code for [facility] Fwd Diagnoses Upper GI bleed K92.2 Chest pain R07.9 Nausea vomiting and diarrhea R11.2; R19.7 Acute hypokalemia E87.6
== END 2022-12-06 12:12 | disposition home or self-care (01) | DRG 379 ==
LOC: ER 11:10 → MEDSURG 16:34
PROVIDERS: Surgery; Admitting Provider Student in an Organized Health Care Education/Training Program; Emergency Provider Family Medicine; PCP Family Medicine Adult Medicine; Visit Provider Student in an Organized Health Care Education/Training Program
PROC: 0DJ08ZZ Inspection of Upper Intestinal Tract, Via Natural or Artificial Opening Endoscopic (ICD-10-PCS; CPT 43235; principal; 2022-12-04 10:40)
DX: K92.0 Hematemesis (principal); M05.9 Rheumatoid arthritis with rheumatoid factor, unspecified; Z79.52 Long term (current) use of systemic steroids; K20.90 Esophagitis, unspecified without bleeding; Z95.828 Presence of other vascular implants and grafts; F41.9 Anxiety disorder, unspecified; F32.A Depression, unspecified; N18.30 Chronic kidney disease, stage 3 unspecified; Z86.16 Personal history of COVID-19; E78.5 Hyperlipidemia, unspecified; E03.9 Hypothyroidism, unspecified; D50.9 Iron deficiency anemia, unspecified; D63.1 Anemia in chronic kidney disease; G25.81 Restless legs syndrome; Z87.891 Personal history of nicotine dependence; E87.6 Hypokalemia; G89.29 Other chronic pain; M54.9 Dorsalgia, unspecified; I25.10 Atherosclerotic heart disease of native coronary artery without angina pectoris; Z86.718 Personal history of other venous thrombosis and embolism
CPT/HCPCS: 36415; 43235; 74177; 76937; 80053; 81001; 83690; 84484; 85025; 85378; 85610; 85730; 87086; 88305; 93005; 96365; 96375; 96376; 99285; C9113; J0696; J1170; J2270; J2405; J2704; J3480; J7030; Q9967

== ENCOUNTER → 2023-01-21 13:49 | Outpatient (BNVA) | payer MEDICARE, OTHER, SELFPAY | PROVIDERS: PCP Family Medicine Adult Medicine; Visit Provider Orthopaedic Surgery | DX: M47.12 Other spondylosis with myelopathy, cervical region (principal); M48.02 Spinal stenosis, cervical region | CPT/HCPCS: 36415; 72040; 80053; 81001; 85025; 87086; 99214 ==

== ENCOUNTER → 2023-02-03 10:00 | Outpatient (BNVA) | payer MEDICARE, OTHER, SELFPAY | PROVIDERS: PCP Family Medicine Adult Medicine; Visit Provider Family Medicine | DX: Z01.818 Encounter for other preprocedural examination (principal); Z79.899 Other long term (current) drug therapy | CPT/HCPCS: 80048; 81003; 87086 ==

== ENCOUNTER 2023-02-08 14:30 | Inpatient (IN) | payer MEDICARE, OTHER, SELFPAY ==
[2023-02-08] VITALS (22 sets, daily range): BP systolic 92–150; BP diastolic 51–77; PULSE 54–73; RESP 10–25; TEMP 36–36.6; O2SAT 93–100; BMI 21.3
--- NOTE | 2023-02-08 | XR_ITS ---
WS: [id number] C-ARM RADIOGRAPHS CERVICAL SPINE; 6 IMAGES HISTORY: C3-7 ACDF, or pic COMPARISON: None available. Intraoperative imaging during anterior cervical fusion. Cervical hardware extends from C3-C7. Patient is intubated. IMPRESSION: Intraoperative imaging during anterior cervical fusion.
[2023-02-08] MEDS: scopolamine 1.5 Patch 1 PATCH TRANSDERMA (10:10)
--- NOTE | 2023-02-08 10:34 | W.PM.OPSUD ---
Surgery/Procedure H&P Update DATE OF PROCEDURE: February 08, 2023 DATE H&P PERFORMED: 02/03/23 H&P UPDATE INFORMATION: I have reviewed H&P completed within last 30 days, I have examined patient prior to procedure and No changes to prior documentation PREOP DIAGNOSIS: DDD cervical, Cervical Spondylosis w/Myelopathy PLANNED PROCEDURE: Operation Date: 02/08/23 11:20 Proposed Procedures p Anterior Cervical Discectomy & Fusion ACDF w/ Anterior Interbody Fusion w/ Cage w/ Instrumentation w/ Allograft w/ Navigation(Not Applicable) - Ryan Hung DO
[2023-02-08] MEDS: sodium chloride 0.9% 1,000 ML 30 ML IV (11:04)
[2023-02-08] MEDS: ondansetron 2 mg/ML SDV 2 mL 4 MG IVP (11:06)
--- NOTE | 2023-02-08 11:15 | ANES.PREANE2 ---
Pre-Anesthetic Assessment Height/Weight: Height 1.68 m Weight 59.874 kg Temp Pulse Resp BP Pulse Ox O2 Del Method 97 F L 71 18 107/51 98 Room Air 02/08/23 10:26 02/08/23 10:26 02/08/23 10:26 02/08/23 10:26 02/08/23 10:26 02/08/23 10:32 Preop Diagnosis: DDD cervical, Cervical Spondylosis w/Myelopathy Operation Date: 02/08/23 11:20 Proposed Procedures p Anterior Cervical Discectomy & Fusion ACDF w/ Anterior Interbody Fusion w/ Cage w/ Instrumentation w/ Allograft w/ Navigation(Not Applicable) - Ryan Hung, DO Familial anesthetic complications: Occassional PONV Was Beta Karlos taken within 24 hours: N/A Was Clonidine taken within 24 hours: N/A Last intake: Intake Last Liquid Date 02/07/23 Last Liquid Time 23:59 Last Solid Date 02/07/23 Last Solid Time 23:59 Social No alcohol and No tobacco Exam alert, oriented x 3, clear to auscultation bilaterally and regular rate & rhythm Airway Mallampati: Class III Dentition: false Pulmonary hx frequent pneumonia Chronic Renal Insufficiency GI Gastroesophageal Reflux Disease Gi bleed Metabolic Thyroid Disease pre DM [facility] Rheumatoid Arthritis (on prednisone) Neuropsych Seizure Anesthetic Plan ASA status: 3 Anesthesia: General Risk of > 500 ml blood loss (7ml/kg in children): No Medications/Allergies Home Medications Medication Instructions Recorded Confirmed Last Taken Type latanoprost 0.005 % eye drops 1 drp ophthalmic (eye) QPM 06/17/22 02/05/23 02/07/23 History doxepin 6 mg tablet 6 mg PO BEDTIME PRN sleep 08/02/22 02/05/23 02/07/23 History ondansetron 4 mg disintegrating 4 mg PO DAILY PRN Nausea And 08/13/22 02/05/23 12/02/22 Rx tablet Vomiting #30 tabs mirtazapine 15 mg tablet 15 mg PO BEDTIME mental health #30 10/14/22 02/05/23 02/07/23 Rx tabs levothyroxine 112 mcg tablet 112 mcg PO QAM low thyroid #90 tabs 10/15/22 02/05/23 02/08/23 08:30 Rx gabapentin 300 mg capsule 300 mg PO TID chronic pain #90 caps 10/22/22 02/05/23 02/07/23 Rx leflunomide 20 mg tablet 20 mg PO QAM 11/27/22 02/05/23 02/08/23 08:30 History albuterol sulfate 90 mcg/actuation 1 inh inhalation Q6H PRN shortness 12/22/22 02/05/23 02/07/23 Rx aerosol inhaler (Proventil HFA) of breath or wheezing #6.7 grams baclofen 10 mg tablet 10 mg PO BID PRN Muscle Spasm 30 01/20/23 02/05/23 02/07/23 Rx days #30 tabs ropinirole 5 mg tablet 5 mg PO TID PRN Restless Leg(S) 01/21/23 02/05/23 02/07/23 Rx #270 tabs Bone growth stimulator #1 ea 01/22/23 Unknown Rx oxycodone 5 mg tablet 7.5 mg PO TID PRN pain 30 days #60 02/03/23 02/05/23 02/07/23 Rx tabs prednisone 10 mg tablet 10 mg PO DAILY 02/03/23 02/05/23 02/07/23 History Bone growth stimulator #1 ea 02/05/23 Unknown Rx furosemide 40 mg tablet 40 mg PO DAILY PRN Edema 02/08/23 02/08/23 02/07/23 History Allergies Allergy/AdvReac Type Severity Reaction Status Date / Time methotrexate Allergy Unknown Unknown Verified 02/03/23 10:14 tizanidine Allergy Unknown Unknown Verified 02/03/23 10:14 amitriptyline Allergy ADR-Agitate Verified 02/03/23 10:14 d diphenhydramine Allergy ADR-Agitate Verified 02/03/23 10:14 [From Benadryl] d sulfasalazine AdvReac Intermediate ADR-Nausea Verified 02/03/23 10:14 and acid reflux Current Medications Generic Name Dose Route Start Last Admin Trade Name Freq PRN Reason Stop Dose Admin Sodium Chloride 1,000 mls @ 30 mls/hr 02/08/23 09:45 02/08/23 11:04 Sodium Chloride 0.9% IV 02/09/23 09:44 30 mls/hr .Q24H KIM Administration Ondansetron HCl 4 mg 02/08/23 09:42 02/08/23 11:06 Ondansetron 2 Mg/Ml Sdv 2 Ml IVP 4 mg ONCE PRN Administration NAUSEA AND VOMITING PFSH Anesthesia Medical History Allergic rhinitis due to allergen Anxiety and depression CKD (chronic kidney disease) stage 3, GFR 30-59 ml/min Extrapyramidal and movement disorder High risk medication use Hyperlipidemia Hypothyroidism Iron deficiency anemia Lung nodule, solitary Prediabetes RLS (restless legs syndrome) Seropositive rheumatoid arthritis of multiple sites Substance or medication-induced sleep disorder, insomnia type Surgical History History of ankle surgery left History of appendectomy History of delivery History of cholecystectomy History of hysterectomy with bilateral oophorectomy Previous back surgery Social History Smoking and tobacco/nicotine status: former use of tobacco/nicotine Quit status (tobacco/nicotine): has quit using Year quit tobacco: 2009 Former quit date comment: Smoked for 9 months Alcohol intake: current Alcohol intake frequency: holidays/special occasions only Substance/Drug Use: never Data Anesthesia Cardiac Studies: Echocardiogram 06/17/22 Cardiac Event Monitor 07/13/22
[2023-02-08] MEDS: ceFAZolin 2,000 MG in sodium chloride 0.9% (plus) 50 ML 100 MG IV (11:47)
[2023-02-08] MEDS: ceFAZolin 1,000 MG in sodium chloride 0.9% (plus) 50 ML 100 MG IV (12:37)
[2023-02-08] MEDS: lidocaine-epi 2% 20 mL INJ INJECTION (12:54)
--- NOTE | 2023-02-08 14:31 | P.OP_ITS ---
Operative Report Date of procedure: February 08, 2023 Pre-op diagnosis: Cervical spondylosis with radiculopathy Post-op diagnosis: same Procedure done: 1. anterior diskectomy C3/4 2. anterior diskectomy C4/5 3. Anterior diskectomy C5/6 4. Anterior discectomy C6/7 5. Insertion of cage C3/4 6. Insertion of cage C4/5 7. Insertion of cage C5/6 8. Insertion of Cage C6/7 9. Instrumentation with anterior plate from C3-C7 10. Use of allograft Surgeon: Ryan Hung DO Recreation Therapy Aides Teacher: Delano Miguel Recreation Therapy Aides Teacher: The critical care physician assistant, Delano Miguel, PAC was needed for his expertise under the microscope. He was important and necessary throughout the procedure to complete in a safe and timely manner. He assisted with patient positioning prepping and draping tissue retraction suctioning of the operative field protection of the dural sac and tissue closure Estimated blood loss (mL): 50 Procedure: 1. anterior diskectomy C3/4 2. anterior diskectomy C4/5 3. Anterior diskectomy C5/6 4. Anterior discectomy C6/7 5. Insertion of cage C3/4 6. Insertion of cage C4/5 7. Insertion of cage C5/6 8. Insertion of Cage C6/7 9. Instrumentation with anterior plate from C3-C7 10. Use of allograft The patient was taken to the operating room, where he underwent general endotracheal anesthesia without complications. He was then positioned supine on the operating table, and all areas of impingement were well padded. The arms were carefully padded and tucked at his sides. A roll was placed between the shoulder blades.. An x-ray was done to determine the appropriate level for the skin incision. The entire neck was then sterilely prepped and draped in the usual fashion. Neuromonitoring was attached prior to prepping. A transverse skin incision was made and carried down to the platysma muscle. This was then split in line with its fibers. Blunt dissection was carried down medial to the carotid sheath and lateral to the trachea and esophagus until the anterior cervical spine was visualized. A needle was placed into a disc and an x-ray was done to determine its location. The longus colli muscles were then elevated bilaterally with the electrocautery unit. Self-retaining retractors were placed deep to the longus colli muscle. Attention was brought to the C3/4 level that was confirmed on x-ray. A caspar pin was placed into the C3 vertebrae and the C4 vertebrae. The disk space was then distracted. The microscope was then brought in. A radical anterior discectomies were performed at C3/4. This included complete removal of the anterior annulus, nucleus, and posterior annulus. The posterior longitudinal ligament was removed as were the posterior osteophytes. Foraminotomies were then accomplished bilaterally. This was done using a high speed demetrice, kerrison rongeurs and curretes Once all of this was accomplished, the curved currette was used to check for any residual compression. The central canal was wide open as were the foramen. A high-speed bur was used to remove the cartilaginous endplates above and below the interspace. Bleeding cancellous bone was exposed. The disc space were measured and appropriate size cage were placed sterilely onto the field. Allograft graft was packed into the cages. The cage was then placed and there was good juxtaposition against the bleeding decorticated surfaces and good distraction of each interspace. Attention was brought to the next interspace. The [place] pins were removed. Bone wax was used to prevent any bleeding from occurring at the pin sites. Attention was brought to the C4/5 level that was confirmed on x-ray. A caspar pin was placed into the C4 vertebrae and the C5 vertebrae. The disk space was then distracted. The microscope was then brought in. A radical anterior discectomies were performed at C4/5. This included complete removal of the anterior annulus, nucleus, and posterior annulus. The posterior longitudinal ligament was removed as were the posterior osteophytes. Foraminotomies were then accomplished bilaterally. This was done using a high speed demetrice, kerrison rongeurs and curretes Once all of this was accomplished, the curved currette was used to check for any residual compression. The central canal was wide open as were the foramen. A high-speed bur was used to remove the cartilaginous endplates above and below the interspace. Bleeding cancellous bone was exposed. The disc space were measured and appropriate size cage were placed sterilely onto the field. Allograft graft was packed into the cages. The cage was then placed and there was good juxtaposition against the bleeding decorticated surfaces and good distraction of each interspace. Attention was brought to the next interspace. The [place] pins were removed. Bone wax was used to prevent any bleeding from occurring at the pin sites. Attention was brought to the C5/6 level that was confirmed on x-ray. A caspar pin was placed into the C5 vertebrae and the C6 vertebrae. The disk space was then distracted. The microscope was then brought in. A radical anterior discectomies were performed at C5/6. This included complete removal of the anterior annulus, nucleus, and posterior annulus. The posterior longitudinal ligament was removed as were the posterior osteophytes. Foraminotomies were then accomplished bilaterally. This was done using a high speed demetrice, kerrison rongeurs and curretes Once all of this was accomplished, the curved currette was used to check for any residual compression. The central canal was wide open as were the foramen. A high-speed bur was used to remove the cartilaginous endplates above and below the interspace. Bleeding cancellous bone was exposed. The disc space were measured and appropriate size cage were placed sterilely onto the field. Allograft graft was packed into the cages. The cage was then placed and there was good juxtaposition against the bleeding decorticated surfaces and good distraction of each interspace. Attention was brought to the next interspace. The [place] pins were removed. Bone wax was used to prevent any bleeding from occurring at the pin sites. Attention was brought to the C6/7 level that was confirmed on x-ray. A caspar pin was placed into the C6 vertebrae and the C7 vertebrae. The disk space was then distracted. The microscope was then brought in. A radical anterior discectomies were performed at C6/7. This included complete removal of the anterior annulus, nucleus, and posterior annulus. The posterior longitudinal ligament was removed as were the posterior osteophytes. Foraminotomies were then accomplished bilaterally. This was done using a high speed demetrice, kerrison rongeurs and curretes Once all of this was accomplished, the curved currette was used to check for any residual compression. The central canal was wide open as were the foramen. A high-speed bur was used to remove the cartilaginous endplates above and below the interspace. Bleeding cancellous bone was exposed. The disc space were measured and appropriate size cage were placed sterilely onto the field. Allograft graft was packed into the cages. The cage was then placed and there was good juxtaposition against the bleeding decorticated surfaces and good distraction of each interspace. Attention was brought to the next interspace. The [place] pins were removed. Bone wax was used to prevent any bleeding from occurring at the pin sites. The appropriate size anterior cervical locking plate was chosen and bent into gentle lordosis. Two screws were then placed into each of the vertebral bodies at C3, C4, C5, C6 and C7. There was excellent purchase. A final x-ray was done confirming good position of the hardware and Cages. The locking screws were then applied, also with excellent purchase. Following a final copious irrigation, there was good hemostasis and no dural leaks. The carotid pulse was strong. The wounds were then closed in layers using 2-0 Vicryl suture for the platysma muscle, 2-0 Vicryl suture for the subcutaneous tissue, and 4-0 monocryl suture in a subcuticular skin closure. Glue was placed followed by application of a sterile dressing. The drain was hooked to bulb suction. A soft collar was applied. The patient was then carefully returned to the supine position on his hospital bed where he was reversed and extubated and taken to the recovery room having tolerated the procedure well.
[2023-02-08] MEDS: fentaNYL 50 mcg/mL INJ 2mL IVP ×2 (14:47→15:09)
--- NOTE | 2023-02-08 15:04 | PC.NURSE ---
0504 - ANKLE BRACELET GIVEN TO PER THIS NURSE
--- NOTE | 2023-02-08 15:20 | ANE.PACU2 ---
Inpatient post-anesthesia follow up: Airway intact: Yes Vital signs: Temperature 98.2 F Pulse Rate 51 Respiratory Rate 17 Blood Pressure 117/65 Pulse Oximetry 96 Oxygen Delivery Me thod Room Air Oxygen Flow Rate 1 Fraction of Inspir ed Oxygen Hydration adequate: Yes Nausea and vomiting: No Mental status: Baseline
[2023-02-08] MEDS: oxyCODONE-APAP 10-325 mg Tablet PO ×2 (17:38→21:36)
[2023-02-08] MEDS: ketorolac 30 mg/mL INJ IVP (17:39)
[2023-02-08] MEDS: gabapentin 300 mg Capsule PO ×2 (17:39→21:04)
[2023-02-08] MEDS: lactated ringers 1,000 ML 90 ML IV (17:48)
[2023-02-08] MEDS: docusate sodium 100 mg Capsule PO (17:49)
[2023-02-08] MEDS: baclofen 10 mg Tablet PO (19:17)
[2023-02-08] MEDS: mirtazapine 15 mg Tablet PO (21:04)
[2023-02-09] VITALS (14 sets, daily range): BP systolic 97–120; BP diastolic 52–65; PULSE 49–68; RESP 15–18; TEMP 36.6–36.8; O2SAT 94–98
[2023-02-09] MEDS: oxyCODONE-APAP 10-325 mg Tablet PO ×4 (01:51→17:24)
[2023-02-09] MEDS: ketorolac 30 mg/mL INJ IVP ×2 (04:34→22:33)
[2023-02-09] MEDS: HYDROmorphone 1 mg/mL INJ 1 mL 0.5 MG IVP (05:47)
[2023-02-09] MEDS: levothyroxine 112 mcg Tablet PO (05:57)
[2023-02-09] MEDS: ondansetron 2 mg/ML SDV 2 mL 4 MG IVP ×2 (06:20→19:00)
--- NOTE | 2023-02-09 07:41 | P.PN_ITS ---
Subjective Subjective: POD 1 Patient resting comfortably. States the arms have improved. Denies swallowing difficulties or voice changes. Denies chest pain shortness of breath or headaches. Vitals/I&O/Wt Last Vital Signs Temp 98.2 F 02/09/23 07:10 Pulse 51 L 02/09/23 07:10 Resp 17 02/09/23 07:10 BP 117/65 02/09/23 07:10 Pulse Ox 96 02/09/23 07:10 O2 Del Method Room Air 02/09/23 07:10 O2 Flow Rate 1 02/08/23 16:50 02/08/23 02/09/23 02/09/23 22:59 06:59 14:59 Intake Total 121.5 / 271.5 50 / 321.5 Output Total 600 / 650 200 / 850 Balance -478.5 / -378.5 -150 / -528.5 Weight last 48 hrs Weight 132 lb Physical Exam Narrative: Patient is alert and oriented x3 with a good general appearance normal mood and affect. Nontender with palpation about the incisional site. Incision appears to be clean and dry with Hemovac drain intact without signs of erythema or drainage. No signs of infection. Good motor strength throughout both upper extremities. Appears to fire in all motor groups with 5/5 strength. Hands are warm good cap refill in all digits. Normal sensation to light touch in all dermatomal areas. Urinary Catheter Management: Brandt: Cath Placed During This Visit: yes Reason for Continuing Indwelling Catheter: Acute Urinary Retention or Obstruction Urinary Catheter Date of Insertion: 02/08/23 Urinary Catheter Time of Insertion: 12:20 A&P Assessment and plan (1) Status post cervical spinal fusion: Discussed with the nurse to discontinue Hemovac drain and Brandt catheter. Patient is wanting health social work professor for evaluation of going to rehab. Encouraged her to continue walking program. Continue incentive spirometer for pulmonary toilet. Attestations Medical Necessity Statement*: Patient is wanting to go to a rehab Coding Level of Care Code Acute Code for Chg Fwd Diagnoses Status post cervical spinal fusion Z98.1
[2023-02-09] MEDS: ceFAZolin 2,000 MG in sodium chloride 0.9% (plus) 50 ML 100 MG IV ×3 (08:03→16:59)
[2023-02-09] MEDS: docusate sodium 100 mg Capsule PO ×2 (08:04→17:25)
[2023-02-09] MEDS: predniSONE 10 mg Tablet PO (08:04)
[2023-02-09] MEDS: gabapentin 300 mg Capsule PO ×2 (08:04→16:59)
[2023-02-09] MEDS: ropinirole 2 mg Tablet 5 MG PO ×2 (08:48→17:25)
--- NOTE | 2023-02-09 08:56 | PC.CHAP ---
Pastoral Care Encounter/Spiritual Assessment Type of Contact [] Declined performance reporter visit [] Patient/Family/Request visit [] Outpatient visit [] Follow-up visit [] Physician referral [] Code/Alert [x] Routine visit [] Staff referral [] Actively dying [] Patient sleeping [x] Family support [] [] Out of room [] Palliative care [] [] Receiving care in room [] Pre-surgical visit [] Trauma [] Long length of stay [] ICU visit [] Other: Relational/Emotional Strength [x] Patient feels connected with others/family/visitors/staff [] Distress [] Loneliness/isolation [] Abandonment Spirituality of Patient [x] Person of Shaina [] Attends Christian of their Shaina [x] Believes in Prayer [] Reads Bible or Spiritism materials [] There are Spiritual issues to be addressed It Security Analyst Interventions [x] Prayer [x] Active listening [] Non-anxious presence [x] Spiritual/emotional support [] Crisis/trauma care [] Spiritual counseling [] Bereavement support [] Provided bereavement packet [] Provided Bible/devotional materials [] Provided toy/stuffed animal, coloring book to patient or family member [] Provided Communion [] Anointing/[place] [] Salvation [x] Completed spiritual assessment [] Other: Impact on Illness or Injury [] Angry [] Fearful [] Anxious [] Often cries [] Exhaustion [] Unable to work [] Unable to attend buddhist [] Unable to walk/stand [] Unable to read [] Unable to drive [] Unable to eat/drink [] Unable to sleep [] Unable to be with family [] Patient intubated [] Other: Summary Time spent with patient 5 min
--- NOTE | 2023-02-09 09:57 | PC.NURSE ---
Hemovac drain discontinued at this time. Drain intact. New Silverlon dressing applied to anterior neck.
[2023-02-09] MEDS: lactated ringers 1,000 ML 90 ML IV ×2 (10:34→23:32)
[2023-02-09] MEDS: latanoprost 0.005% Op Soln 2.5 mL Btl 1 DROP EYE-BOTH (17:24)
--- NOTE | 2023-02-09 18:28 | PC.NURSE ---
Pt. unable to void after kim removed. Pt. sat on the toilet for some time attempting to void with no success. SHIV Page notified with orders received to bladder scan and straight cath if indicated. Bladder scan shows 243 residual. Straight cath performed with 250ml clear yellow urine evacuated from bladder.
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
[2023-02-09] MEDS: promethazine 25 mg/mL SDV 1 mL IM (20:18)
[2023-02-09] MEDS: HYDROmorphone 1 mg/mL INJ 1 mL IVP (20:34)
[2023-02-10] VITALS (16 sets, daily range): BP systolic 107–157; BP diastolic 54–72; PULSE 56–80; RESP 16–20; TEMP 36.1–36.8; O2SAT 93–100
[2023-02-10] MEDS: HYDROmorphone 1 mg/mL INJ 1 mL IVP ×5 (00:32→20:40)
--- NOTE | 2023-02-10 00:57 | PC.NURSE ---
bladder scan showed 230 ml, straight cath with 275 output
[2023-02-10] MEDS: levothyroxine 112 mcg Tablet PO (05:02)
--- NOTE | 2023-02-10 06:59 | PM.PN ---
Subjective Subjective: POD 2 Patient complaining of nausea through the night states she was throwing up blood. Vitals/I&O/Wt Last Vital Signs Temp 97.8 F 02/10/23 04:19 Pulse 66 02/10/23 04:19 Resp 16 02/10/23 04:51 BP 132/68 02/10/23 04:19 Pulse Ox 94 02/10/23 04:19 O2 Del Method Room Air 02/10/23 04:19 O2 Flow Rate 1 02/08/23 16:50 02/09/23 02/09/23 02/10/23 14:59 22:59 06:59 Intake Total 1408.5 / 1408.5 1760 / 3168.5 30 / 3198.5 Output Total 0 / 0 275 / 275 Balance 1408.5 / 1408.5 1760 / 3168.5 -245 / 2923.5 Weight last 48 hrs Weight 132 lb Physical Exam Narrative: Patient is alert and oriented x3 with a good general appearance normal mood and affect.? Nontender with palpation about the incisional site.? Incision appears to be clean and dry with Hemovac drain intact without signs of erythema or drainage.? No signs of infection.? Good motor strength throughout both upper extremities.? Appears to fire in all motor groups with 5/5 strength.? Hands are warm good cap refill in all digits.? Normal sensation to light touch in all dermatomal areas. Urinary Catheter Management: Brandt: Cath Placed During This Visit: yes, but has since been removed by the nurse Reason for Continuing Indwelling Catheter: Perioperative Use in Selected Surgeries Urinary Catheter Date of Insertion: 02/08/23 Urinary Catheter Time of Insertion: 12:20 Date Urinary Catheter Removed: 02/09/23 Time Urinary Catheter Discontinued: 09:56 A&P Assessment and plan (1) Status post cervical spinal fusion: Confirm with the nurse she stated that there was coffee-ground emesis. Patient has a history of pancreatitis. Continue to work on mobilization. We will consult GI. building services coordinator to continue to work with placement. Physical therapy to continue to mobilize. High risk of bleeding will continue with SCDs for DVT prophylaxis. Attestations Medical Necessity Statement*: Await consultation based on GI bleed Coding Level of Care Code Acute Code for Chg Fwd Diagnoses Status post cervical spinal fusion Z98.1
[2023-02-10] MEDS: albuterol 2.5 mg/3 mL Neb INHALATION (08:22)
[2023-02-10] MEDS: docusate sodium 100 mg Capsule PO ×2 (08:34→17:29)
[2023-02-10] MEDS: predniSONE 10 mg Tablet PO (08:34)
[2023-02-10] MEDS: gabapentin 300 mg Capsule PO ×2 (08:34→20:28)
[2023-02-10] MEDS: ondansetron 2 mg/ML SDV 2 mL 4 MG IVP (09:21)
[2023-02-10] MEDS: sodium chloride 0.9% 1,000 ML 30 ML IV (11:33)
--- NOTE | 2023-02-10 11:40 | P.ANESASSM_ITS ---
Pre-Anesthetic Assessment Height/Weight: Height 1.68 m Weight 59.874 kg Temp Pulse Resp BP Pulse Ox O2 Del Method O2 Flow Rate 98.2 F 64 17 148/72 93 Room Air 1 02/10/23 11:22 02/10/23 11:22 02/10/23 11:22 02/10/23 11:22 02/10/23 11:22 02/10/23 11:22 02/08/23 16:50 Preop Diagnosis: GI Bleed Operation Date: 02/08/23 11:20 Proposed Procedures p Anterior Cervical Discectomy & Fusion ACDF w/ Anterior Interbody Fusion w/ Cage w/ Instrumentation w/ Allograft w/ Navigation(Not Applicable) - Ryan Hung DO Operation Date: 02/10/23 12:15 Proposed Procedures p EGD(Not Applicable) - David Ruiz, Familial anesthetic complications: PONV ACDF on 02/08/[address] Last intake: Intake Last Liquid Date 02/07/23 Last Liquid Time 23:59 Last Solid Date 02/07/23 Last Solid Time 23:59 Social No alcohol vape cannibas Exam alert, oriented x 3, clear to auscultation bilaterally and regular rate & rhythm Airway Submandibular: within normal limits Cervical ROM: Other (cervical collar in place recent ACDF) Mallampati: Class III Dentition: false Pulmonary Chronic Obstructive Pulmonary Disease CV/HEM Congestive Heart Failure, Deep Vein Thrombosis (UE 2009) and Palpitations Chronic Renal Insufficiency Hepatic None reported GI Gastroesophageal Reflux Disease FREQUENT GI BLEEDS. KNOWN STOMACH MASS PER PATIENT. she reported moving here from [place] and not following up surgical intervention advised previously. Metabolic Diabetes Mellitus (prediabetic), Hyperlipidemia and Thyroid Disease [facility] [place] Osteoarthritis/DJD and Rheumatoid Arthritis Neuropsych Anxiety, Depression and Seizure (2014, no antiseizure meds pt. says concussion caused it.) Anesthetic Plan ASA status: 3 Anesthesia: General Other: RSI- with glidescope Medications/Allergies Home Medications Medication Instructions Recorded Confirmed Last Taken Type latanoprost 0.005 % eye drops 1 drp ophthalmic (eye) QPM 06/17/22 02/05/23 02/07/23 History doxepin 6 mg tablet 6 mg PO BEDTIME PRN sleep 08/02/22 02/05/23 02/07/23 History ondansetron 4 mg disintegrating 4 mg PO DAILY PRN Nausea And 08/13/22 02/05/23 12/02/22 Rx tablet Vomiting #30 tabs mirtazapine 15 mg tablet 15 mg PO BEDTIME mental health #30 10/14/22 02/05/23 02/07/23 Rx tabs levothyroxine 112 mcg tablet 112 mcg PO QAM low thyroid #90 tabs 10/15/22 02/05/23 02/08/23 08:30 Rx gabapentin 300 mg capsule 300 mg PO TID chronic pain #90 caps 10/22/22 02/05/23 02/07/23 Rx leflunomide 20 mg tablet 20 mg PO QAM 11/27/22 02/05/23 02/08/23 08:30 History albuterol sulfate 90 mcg/actuation 1 inh inhalation Q6H PRN shortness 12/22/22 02/05/23 02/07/23 Rx aerosol inhaler (Proventil HFA) of breath or wheezing #6.7 grams ropinirole 5 mg tablet 5 mg PO TID PRN Restless Leg(S) 01/21/23 02/05/23 02/07/23 Rx #270 tabs Bone growth stimulator #1 ea 01/22/23 02/09/23 Unknown Rx oxycodone 5 mg tablet 7.5 mg PO TID PRN pain 30 days #60 02/03/23 02/05/23 02/07/23 Rx tabs prednisone 10 mg tablet 10 mg PO DAILY 02/03/23 02/05/23 02/07/23 History Bone growth stimulator #1 ea 02/05/23 02/09/23 Unknown Rx furosemide 40 mg tablet 40 mg PO DAILY PRN Edema 02/08/23 02/08/23 02/07/23 History baclofen 10 mg tablet 10 mg PO BID PRN Muscle Spasm 30 02/10/23 Unknown Rx days #30 tabs Allergies Allergy/AdvReac Type Severity Reaction Status Date / Time methotrexate Allergy Unknown Unknown Verified 02/03/23 10:14 tizanidine Allergy Unknown Unknown Verified 02/03/23 10:14 amitriptyline Allergy ADR-Agitate Verified 02/03/23 10:14 d diphenhydramine Allergy ADR-Agitate Verified 02/03/23 10:14 [From Benadryl] d sulfasalazine AdvReac Intermediate ADR-Nausea Verified 02/03/23 10:14 and acid reflux Current Medications Generic Name Dose Route Start Last Admin Trade Name Freq PRN Reason Stop Dose Admin Albuterol Sulfate 2.5 mg 02/08/23 15:33 02/10/23 08:22 Albuterol 2.5 Mg/3 Ml Neb INHALATION 2.5 mg Q6H PRN Administration shortness of breath or wheezing Baclofen 10 mg 02/08/23 14:28 02/08/23 19:17 Baclofen 10 Mg Tablet PO 10 mg BID PRN Administration Muscle Spasm Docusate Sodium 100 mg 02/08/23 18:00 02/10/23 08:34 Docusate Sodium 100 Mg Capsule PO 100 mg BID KIM Administration Gabapentin 300 mg 02/08/23 15:00 02/10/23 08:34 Gabapentin 300 Mg Capsule PO 300 mg TID KIM Administration Hydromorphone HCl 1 mg 02/09/23 19:59 02/10/23 09:14 Hydromorphone 1 Mg/Ml Inj 1 Ml IVP 1 mg Q4H PRN Administration SEVERE PAIN Lactated Ringer's 1,000 mls @ 90 mls/hr 02/08/23 14:30 02/09/23 23:32 Lactated Ringers IV 90 mls/hr .Q11H7M KIM Administration Sodium Chloride 1,000 mls @ 30 mls/hr 02/10/23 11:15 02/10/23 11:33 Sodium Chloride 0.9% IV 02/11/23 11:14 30 mls/hr .Q24H KIM Administration Ketorolac Tromethamine 30 mg 02/08/23 14:26 02/09/23 22:33 Ketorolac 30 Mg/Ml Inj IVP 30 mg Q6H PRN Administration BREAKTHROUGH PAIN Latanoprost 1 drop 02/08/23 18:00 02/09/23 17:24 Latanoprost 0.005% Op Soln 2.5 Ml Btl EYE-BOTH 1 drop QPM KIM Administration Levothyroxine Sodium 112 mcg 02/09/23 06:00 02/10/23 05:02 Levothyroxine 112 Mcg Tablet PO 112 mcg QAM KIM Administration Mirtazapine 15 mg 02/08/23 21:00 02/09/23 22:25 Mirtazapine 15 Mg Tablet PO Not Given BEDTIME KIM Non-Formulary Medication 20 mg 02/09/23 06:00 02/10/23 05:02 Leflunomide PO Not Given QAM KIM Ondansetron HCl 4 mg 02/08/23 14:26 02/10/23 09:21 Ondansetron 2 Mg/Ml Sdv 2 Ml IVP 4 mg Q6H PRN Administration NAUSEA AND VOMITING Oxycodone/Acetaminophen 1 - 2 tab 02/08/23 14:26 02/09/23 17:24 Oxycodone-Apap 10-325 Mg Tablet PO 2 tab Q4H PRN Administration MODERATE TO SEVERE PAIN Prednisone 10 mg 02/09/23 09:00 02/10/23 08:34 Prednisone 10 Mg Tablet PO 10 mg DAILY KIM Administration Promethazine HCl 25 mg 02/09/23 20:00 02/09/23 20:18 Promethazine 25 Mg/Ml Sdv 1 Ml IM 25 mg Q6H PRN Administration NAUSEA Ropinirole HCl 5 mg 02/09/23 08:10 02/09/23 17:25 Ropinirole 2 Mg Tablet PO 5 mg TID PRN Administration Restless Leg(S) [facility] Anesthesia Medical History Allergic rhinitis due to allergen Anxiety and depression CKD (chronic kidney disease) stage 3, GFR 30-59 ml/min Extrapyramidal and movement disorder High risk medication use Hyperlipidemia Hypothyroidism Iron deficiency anemia Lung nodule, solitary Prediabetes RLS (restless legs syndrome) Seropositive rheumatoid arthritis of multiple sites Substance or medication-induced sleep disorder, insomnia type Surgical History History of ankle surgery left History of appendectomy History of delivery History of cholecystectomy History of hysterectomy with bilateral oophorectomy Previous back surgery Social History Smoking and tobacco/nicotine status: former use of tobacco/nicotine Quit status (tobacco/nicotine): has quit using Year quit tobacco: 2009 Former quit date comment: Smoked for 9 months Alcohol intake: current Alcohol intake frequency: holidays/special occasions only Substance/Drug Use: never Data Anesthesia Cardiac Studies: Echocardiogram 06/17/22 Cardiac Event Monitor 07/13/22
--- NOTE | 2023-02-10 12:33 | PC.SOCIAL ---
IMM Update pg 2 of IMM updated and reviewed w/ patient. Copy provided and Copy dated, initialed and placed in chart.
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
--- NOTE | 2023-02-10 15:10 | ANE.PACU2 ---
Inpatient post-anesthesia follow up: Airway intact: Yes Vital signs: Temperature 97.6 F Pulse Rate 59 Respiratory Rate 16 Blood Pressure 184/73 Pulse Oximetry 99 Oxygen Delivery Me thod Room Air Oxygen Flow Rate 1 Fraction of Inspir ed Oxygen Hydration adequate: Yes Nausea and vomiting: No Pain level: 1 Mental status: Baseline
[2023-02-10] MEDS: ropinirole 2 mg Tablet 5 MG PO ×2 (16:00→21:19)
[2023-02-10] MEDS: lactated ringers 1,000 ML 90 ML IV (16:02)
[2023-02-10] MEDS: pantoprazole 40 mg SDV IVP (17:21)
[2023-02-10] MEDS: latanoprost 0.005% Op Soln 2.5 mL Btl 1 DROP EYE-BOTH (17:29)
[2023-02-10] MEDS: sucralfate 1 gm Tablet PO (17:29)
[2023-02-10] MEDS: mirtazapine 15 mg Tablet PO (20:27)
[2023-02-11 00:39] VITALS: RESP 20
[2023-02-11] MEDS: oxyCODONE-APAP 10-325 mg Tablet PO ×2 (00:39→05:03)
[2023-02-11] MEDS: pantoprazole 40 mg SDV IVP (03:36)
[2023-02-11 05:03] VITALS: RESP 20
[2023-02-11] MEDS: levothyroxine 112 mcg Tablet PO (05:03)
[2023-02-11 05:11] VITALS: BP 184/73; PULSE 59; RESP 16; TEMP 36.4; O2SAT 99
[2023-02-11 05:47] LABS: SARS Covid-2 Antigen negative (Negative)
[2023-02-11 06:00] VITALS: BP 158/81; PULSE 65; RESP 17; TEMP 37.1; O2SAT 97
[2023-02-11] MEDS: sucralfate 1 gm Tablet PO (06:14)
--- NOTE | 2023-02-11 07:13 | P.PN_ITS ---
Subjective Subjective: POD 3 Patient reports feeling much better today. Mild neck pain. Denies shortness of breath or chest pain. Vitals/I&O/Wt Last Vital Signs Temp 97.6 F 02/11/23 05:11 Pulse 59 L 02/11/23 05:11 Resp 16 02/11/23 05:11 BP 184/73 02/11/23 05:11 Pulse Ox 99 02/11/23 05:11 O2 Del Method Room Air 02/11/23 05:11 O2 Flow Rate 1 02/08/23 16:50 02/10/23 02/11/23 02/11/23 22:59 06:59 14:59 Intake Total 2484.5 Output Total 0 / 375 Balance 2109. Physical Exam Narrative: Patient is alert and oriented x3 with a good general appearance normal mood and affect.? Nontender with palpation about the incisional site.? Incision appears to be clean and dry without signs of erythema or drainage.? No signs of infection.? Good motor strength throughout both upper extremities.? Appears to fire in all motor groups with 5/5 strength.? Hands are warm good cap refill in all digits.? Normal sensation to light touch in all dermatomal areas. Urinary Catheter Management: Brandt: Cath Placed During This Visit: yes, but has since been removed by the nurse Reason for Continuing Indwelling Catheter: Perioperative Use in Selected Surgeries Urinary Catheter Date of Insertion: 02/08/23 Urinary Catheter Time of Insertion: 12:20 Date Urinary Catheter Removed: 02/09/23 Time Urinary Catheter Discontinued: 09:56 A&P Assessment and plan (1) Status post cervical spinal fusion: Patient ready for discharge. Continue incentive spirometer for pulmonary toilet. Continue [place] J collar. We will see her back in the office in 1 week's time for wound check. Attestations Medical Necessity Statement*: Discharge to [place] today. Coding Level of Care Code Acute Code for Chg Fwd Diagnoses Status post cervical spinal fusion Z98.1
[2023-02-11] MEDS: docusate sodium 100 mg Capsule PO (08:42)
[2023-02-11] MEDS: predniSONE 10 mg Tablet PO (08:42)
[2023-02-11] MEDS: gabapentin 300 mg Capsule PO (08:42)
[2023-02-11] MEDS: baclofen 10 mg Tablet PO (08:42)
--- NOTE | 2023-02-12 11:06 | PM.DCS ---
Discharge Providers Date of Admission: 02/08/23 14:30 Date of Discharge: February 11, 2023 Attending Provider at Admission: Ryan Hung DO Attending Provider at Discharge: Ryan Hung DO Primary Care Provider: Kaiser Lisa MD Diagnoses at Discharge Discharge Diagnosis (1) Status post cervical spinal fusion: Status: Acute Reason for Visit Reason for Visit: M47.12, M54.2 Physical Exam Urinary Catheter Management: Brandt: Cath Placed During This Visit: yes, but has since been removed by the nurse Reason for Continuing Indwelling Catheter: Perioperative Use in Selected Surgeries Urinary Catheter Date of Insertion: 02/08/23 Urinary Catheter Time of Insertion: 12:20 Date Urinary Catheter Removed: 02/09/23 Time Urinary Catheter Discontinued: 09:56 Discharge Data Studies Completed and Pending Completed Studies During Hospitalization Category Date Time Status XR cervical spine 3V* [id number] Routine Exams 02/08/23 Completed Pending at discharge Category Date Time Status Pathology: Surgical [PTH] Routine Pth 02/10/23 14:37 Received Laboratory Results SARS-CoV-2 Ag (Rapid) negative (Negative) 02/11/23 05:23 Vitals Last Vital Signs Temp 98.7 F 02/11/23 06:00 Pulse 65 02/11/23 06:00 Resp 17 02/11/23 06:00 BP 158/81 02/11/23 06:00 Pulse Ox 97 02/11/23 06:00 O2 Del Method Room Air 02/11/23 05:11 O2 Flow Rate 1 02/08/23 16:50 Discharge Plan Discharge Patient Disposition: Xfer SNF Condition: Stable Prescriptions: New oxycodone 5 mg tablet 5 mg PO Q4H PRN (Reason: pain) 7 Days Qty: 40 0RF oxycodone 5 mg tablet 5 mg PO Q4H PRN (Reason: pain) 7 Days Qty: 40 0RF Continued gabapentin 300 mg capsule 300 mg PO TID Qty: 90 5RF ondansetron 4 mg tablet,disintegrating 4 mg PO DAILY PRN (Reason: Nausea And Vomiting) Qty: 30 2RF mirtazapine 15 mg tablet 15 mg PO BEDTIME Qty: 30 1RF levothyroxine 112 mcg tablet 112 mcg PO QAM Qty: 90 1RF Proventil HFA 90 mcg/actuation HFA aerosol inhaler 1 inh inhalation Q6H PRN (Reason: shortness of breath or wheezing) Qty: 6.7 5RF ropinirole 5 mg tablet 5 mg PO TID PRN (Reason: Restless Leg(S)) Qty: 270 0RF (DME) Bone growth stimulator See Rx Instructions .Route .MEDSUPPLY Qty: 1 0RF Rx Instructions: As directed oxycodone 5 mg tablet 7.5 mg PO TID PRN (Reason: pain) 30 Days Qty: 60 0RF (DME) Bone growth stimulator See Rx Instructions .Route .MEDSUPPLY Qty: 1 0RF Rx Instructions: As directed baclofen 10 mg tablet 10 mg PO BID PRN (Reason: Muscle Spasm) 30 Days Qty: 30 0RF latanoprost 0.005 % drops 1 drp ophthalmic (eye) QPM doxepin 6 mg tablet 6 mg PO BEDTIME PRN (Reason: sleep) leflunomide 20 mg tablet 20 mg PO QAM prednisone 10 mg tablet 10 mg PO DAILY furosemide 40 mg tablet 40 mg PO DAILY PRN (Reason: Edema) Discharge Orders: Discharge Order (Routine); Ordered 02/11/23 Ordered By: Delano Miguel Referrals: [facility] [Outside] Ryan Hung DO [Physician] - 02/16/23 3:30 pm Discharge Diet: Advance as tolerated Discharge Activity: Limit activity as instructed Patient Instructions: Oxycodone, Rapid Release (By mouth), Gastrointestinal Bleeding (DC), Upper Endoscopy (DC), Anterior Cervical Discectomy (DC), Opioid Safety Activity Restrictions/Additional Instructions: Thank you for choosing [facility] for your care! The following is a list of instructions, from your provider, to follow upon your discharge to ensure you have the optimal recovery from your recent injury or surgery. Anterior Cervical Discectomy and Fusion: What to Expect at Home Your Recovery Follow-up care is a rapp part of your treatment and safety. Be sure to make and go to all appointments, and call your doctor if you are having problems. If you do not already have a follow-up appointment made, call office in the next 1-3 days to make follow up appointment for 1-2 weeks at [phone]. It is also a good idea to know your test results and keep a list of the medicines you take. You can expect your neck to feel stiff or sore after surgery. This should improve in the weeks after surgery. But it may take 4 to 6 months for you to get better completely. You may have trouble sitting or standing in one position for very long and may need pain medicine in the weeks after your surgery. It may take 4 to 6 weeks to get back to your usual activities, but it may depend on what kind of surgery you had. Your throat will feel sore and it may be difficult to swallow for the first 3 days after your surgery. As long as you can get liquids down without difficulty, this should slowly improve, otherwise call our office or seek medical attention if it becomes increasingly difficult to get anything down including liquids. Avoid hot liquids for first 3-5 days. Soothing foods/liquids such as jello, pudding, and luke warm soups are recommended until swallowing improves. Staying elevated will also help, it's advised you keep propped up at while sleeping to help reduce the swelling. You may use an ice pack directly on your incision or around it on the front of your neck, using a cloth to protect your skin; and a heating pad to the back of your neck as needed. Do not use over the counter anti-inflammatory medications (Ibuprofen, Motrin, Aleve, Advil, etc) Taking these meds after having a fusion can delay fusion rates, we recommend you avoid them for the first 3 months after your surgery[address] Dr. Hung may advise you to work with a physical therapist to strengthen the muscles around your neck and back - this will be discussed at your follow - up appointments. The pain or numbness you were having in your arms before surgery should get better or go away completely. This care sheet gives you a general idea about how long it will take for you to recover. But each person recovers at a different pace. Follow the steps below to get better as quickly as possible. How can you care for yourself at home? Activity ? Rest when you feel tired. Getting enough sleep will help you recover. ? Try to walk each day. Start by walking a little more than you did the day before. Bit by bit, increase the amount you walk. Walking boosts blood flow and helps prevent pneumonia and constipation. Walking may also decrease your muscle soreness after surgery. ? No lifting anything that is more that 5 pounds. This may include heavy grocery bags and milk containers, a heavy briefcase or backpack, cat litter or dog food bags, a child, or a vacuum paper cleaner. ? Avoid strenuous activities, such as bicycle riding, jogging, weightlifting, or aerobic exercise, until your doctor says it is okay. ? Do not drive until your follow-up visit after your surgery, or until your doctor says it isokay. ? Avoid taking long car trips for 2 to 4 weeks after surgery. Your neck may become tired and painful from sitting too long in one position. ? You will probably need to take 4 to 6 weeks off from work. It depends on the type of work you do and how you feel. ? You may have sex as soon as you feel able, but avoid positions that put stress on your neck or cause pain. Diet ? You can eat your normal diet. If your stomach is upset, try bland, low-fat foods like plain rice, broiled chicken, toast, and yogurt ? Drink plenty of fluids. If you have kidney, heart, or liver disease and have to limit fluids, talk with your doctor before you increase the amount of fluids you drink. ? You may notice that your bowel movements are not regular right after your surgery. This is common. Try to avoid constipation and straining with bowel movements. You may want to take a fiber supplement every day. If you have not had a bowel movement after a couple of days, ask your doctor about taking a mild laxative. Medicines ? Take pain medicines exactly as directed. 1. If Dr. Hung gave you a prescription medicine for pain, take lt as prescribed. 2. Do not take two or more pain medicines at the same time unless the doctor told you to. Many pain medicines have acetaminophen, which is Tylenol. Too much acetaminophen {Tylenol) can be harmful. 3. If you think your pain pill is making you sick to your stomach: 4. Take your pills after meals (unless your doctor has told you not to). 5. Ask your Dr. for a different pain pill. Incisioncare ? Remove your dressing 48 hours after your surgery. Ok to shower and get the incision wet. Do not overtly wash your incision. When done, pad dry, leave open to air thereafter. Avoid creams and ointments directly on your incision. ? Your sutures in the incision will dissolve and fall out on their own. ? Keep the area clean and dry. You may cover it with a gauze bandage if it weeps or rubs against clothing; if you choose to do this, change the dressing everyday. Other instructions ? Use a heating pad, hot water bottle, or gentle massage on your back to reduce stiffness. Avoid putting heat on your incision When should you call for help? ? Call 911 anytime you think you may need emergency care. For example, call if: ? You pass out (lose consciousness). ? You have sudden chest pain and shortness of breath, or you cough upblood. ? You cannot swallow. ? You have severe pain in your neck or back. ? Call your Dr. or seek immediate medical care if: ? You have pain that does not get better after you take pain pills. ? You have loose stitches, or your incision comes open. ? You have blood or fluid draining from the incision. ? You have signs of infection, such as: 1. Increased pain, swelling, warmth, or redness. 2. Red streaks leading from the site. 3. Pus draining from the site. 4. Swollen lymph nodes in your neck or armpits. 5. A fever. ? You have severe pain in your arms. ? You have new or increased weakness or numbness in your arms. ? Watch closely for any changes in your health, and be sure to contact your doctor if: ? You do not have a bowel movement after taking a laxative. Discharge Attestations Time Spent in Discharge Care*: less than 30 min Status at Discharge: Cognitive status at discharge: cognitively intact, Behavioral status at discharge: cooperative, Quality Metrics Clinical Quality Measures [ No reported AMI, CVA or VTE this stay] Coding Level of Care Code Acute Code for Chg Fwd Diagnoses Status post cervical spinal fusion Z98.1
== END 2023-02-11 09:50 | disposition skilled nursing facility (03) | DRG 471 ==
LOC: MEDSURG 14:33
PROVIDERS: Surgery; Admitting Provider Orthopaedic Surgery; PCP Family Medicine Adult Medicine; Visit Provider Orthopaedic Surgery
PROC: 0RB30ZZ Excision of Cervical Vertebral Disc, Open Approach (ICD-10-PCS; CPT 22551; principal; 2023-02-08 11:10)
PROC: 0DJ08ZZ Inspection of Upper Intestinal Tract, Via Natural or Artificial Opening Endoscopic (ICD-10-PCS; CPT 43235; principal; 2023-02-10 12:15)
DX: M47.12 Other spondylosis with myelopathy, cervical region (principal); K25.4 Chronic or unspecified gastric ulcer with hemorrhage; M50.11 Cervical disc disorder with radiculopathy, high cervical region; Z79.891 Long term (current) use of opiate analgesic; F41.9 Anxiety disorder, unspecified; F32.A Depression, unspecified; N18.30 Chronic kidney disease, stage 3 unspecified; E78.5 Hyperlipidemia, unspecified; E03.9 Hypothyroidism, unspecified; G25.81 Restless legs syndrome; M05.9 Rheumatoid arthritis with rheumatoid factor, unspecified; G47.00 Insomnia, unspecified; Z87.891 Personal history of nicotine dependence; Z11.52 Encounter for screening for COVID-19; K29.80 Duodenitis without bleeding
CPT/HCPCS: 43239; 51702; 51798; 72040; 76000; 76937; 87426; 88305; 88342; 94640; 96372; 97110; 97116; 97161; 97530; C1713; C1763; C9113; C9359; J0330; J0690; J1100; J1170; J1885; J2405; J2550; J2704; J2710; J3010; J3490; J7030; J7120; J7512; J7613

== ENCOUNTER → 2023-02-16 14:59 | Outpatient (BNVA) | payer OTHER, SELFPAY | PROVIDERS: PCP Family Medicine Adult Medicine; Visit Provider Orthopaedic Surgery | DX: Z98.1 Arthrodesis status (principal); Z47.89 Encounter for other orthopedic aftercare | CPT/HCPCS: 72040; 99024 ==

== ENCOUNTER 2023-02-27 16:25 | Emergency (ER) | payer MEDICARE, OTHER, SELFPAY ==
[2023-02-27 16:32] VITALS: BP 122/75; PULSE 86; RESP 18; TEMP 37.3; O2SAT 95; BMI 21.7
[2023-02-27 19:19] VITALS: BP 111/62; PULSE 77; RESP 16; O2SAT 98
--- NOTE | 2023-02-27 19:19 | XRR_ITS ---
PROCEDURE INFORMATION: Exam: XR Chest Exam date and time: 02/27/2023 7:45 PM Age: 68 years old Clinical indication: Cough and fever; Prior surgery; Surgery date: 1-6 months; Surgery type: Cervical fusion 2022; Patient HX: Cough with fever; Additional info: Fever cough post op TECHNIQUE: Imaging protocol: Radiologic exam of the chest. Views: 1 view. COMPARISON: [facility] [id number] 11/27/2022 8:17 AM FINDINGS: Lungs: No consolidation. Pleural spaces: No large pleural effusion. No pneumothorax. Heart/Mediastinum: Unremarkable cardiomediastinal silhouette. Bones/joints: Partially imaged ACDF hardware. XR/XR chest 1V portable [id number] IMPRESSION: No acute findings.
--- NOTE | 2023-02-27 19:19 | CTR_ITS ---
PROCEDURE INFORMATION: Exam: CT Abdomen And Pelvis With Contrast Exam date and time: 02/27/2023 7:53 PM Age: 68 years old Clinical indication: Fever and nausea and vomiting; Abdominal pain; Generalized; Prior surgery; Surgery date: 6+ months; Surgery type: Kyphoplasty. Gb. Appy. Full hysto. Csection. Patient HX: Abd pain with n/v and fever. ; Additional info: Abd pain, vomiting, fever TECHNIQUE: Imaging protocol: Computed tomography of the abdomen and pelvis with contrast. Radiation optimization: All CT scans at this facility use at least one of these dose optimization techniques: automated exposure control; mA and/or kV adjustment per patient size (includes targeted exams where dose is matched to clinical indication); or iterative reconstruction. Contrast material: OMNI 350; Contrast volume: 75 ml; Contrast route: INTRAVENOUS (IV); REPORTING DATA: Count of CT and Cardiac NM exams in prior 12 months: This patient has received 11 known CTs and 0 known cardiac nuclear medicine studies in the 12 months prior to the current study. COMPARISON: CT abdomen pelvis w con* [id number] 12/03/2022 12:52 PM RADIATION DOSE METRICS: Total DLP (mGy-cm): 377.9 FINDINGS: Lungs: Streaky subsegmental pleural-based opacity in the anterior right middle lobe, most likely atelectasis, but superimposed aspiration not excluded. Diaphragm: Small hiatal hernia. Liver: Unremarkable. Gallbladder and bile ducts: Cholecystectomy. Pancreas: Pancreatic atrophy. No main duct dilation. Spleen: Unremarkable. Adrenal glands: Unremarkable. Kidneys and ureters: Subcentimeter renal hypodensities, too small to characterize.No hydronephrosis or hydroureter. No renal or ureteral calculi. Stomach and bowel: Scattered colonic diverticula without evidence of acute diverticulitis. No bowel obstruction. Appendix: Status post appendectomy. Intraperitoneal space: Unremarkable. No free air. No significant fluid collection. Vasculature: Atherosclerosis. No aortic aneurysm. Lymph nodes: No enlarged lymph nodes. Urinary bladder: Unremarkable as visualized. Reproductive: Hysterectomy. Bones/joints: L4 and L5 kyphoplasty with some intravascular embolization of cement material at the L4 level extending partially into the IVC, unchanged. No acute fracture. Soft tissues: Unremarkable. CT/CT abdomen pelvis w con* [id number] IMPRESSION: 1. No acute findings in the abdomen/pelvis. 2. Streaky subsegmental pleural-based opacity in the anterior right middle lobe, could represent atelectasis and/or aspiration. COMMENTS: Consistent with the [employer]'s Incidental Findings Committee white paper (J Am Ananth Radiol 2018): Any incidental renal lesion less than 1 cm or classified as too small to characterize, or any incidental cystic renal lesion characterized as simple-appearing, is likely benign. No follow-up imaging is recommended for these lesions per consensus recommendations based on imaging criteria.
[2023-02-27] MEDS: iohexol 350 mg/mL 500 mL Btl (per mL) IV (19:56)
[2023-02-27 20:01] LABS: Basophils % 0.1 %; Eosinophils # 0.2 10^3/uL (0.0-0.8); Eosinophils % 2.2 %; Hematocrit 26.9 % (36-47); Lymphocytes # 1.2 10^3/uL (0.8-4.8); Lymphocytes % 15.3 %; Mean Corpuscular HGB Conc 30.5 g/dL (30-55); Mean Corpuscular Hemoglobin 25.8 pg (27-33); Mean Corpuscular Volume 84.6 fl (85-98); Mean Platelet Volume 9.5 fL (7.4-10.4); Monocytes # 0.8 10^3/uL (0.2-0.9); Monocytes % 9.6 %; Neutrophils # 5.72 10^3/uL (1.8-7.7); Neutrophils % 72.5 %; Nucleated Red Blood Cells % 0 %; Platelet Count 269 10^3/cmm (157-399); Red Blood Count 3.18 10^6/uL (3.85-5.65); Red Cell Distribution Width 16.9 % (12.1-15.1); White Blood Count 7.89 10^3/uL (3.29-11.43)
--- NOTE | 2023-02-27 20:17 | ECG_ITS ---
[facility] Test Date: 2023-02-27 Pat Name: Tosha Perry Department: Room: Gender: Female [employer] Machine: : [id number] Requested By: Ty Fall Order Number: [id number] Mirela MD: Sherine Greene M.D. Measurements Intervals [employer] Rate: 70 P: 59 VA: 162 QRS: 36 QRSD: 90 T: 61 QT: 366 QTc: 396 Interpretive Statements SINUS RHYTHM Compared to ECG 12/06/2022 10:33:25 Sinus bradycardia no longer present 2:1 AV block no longer present Electronically Signed On 02-28-2023 22:01:48 [employer] by Sherine Greene M.D. [email or web address]
[2023-02-27 20:19] LABS: Alanine Aminotransferase < 5 U/L (0-33); Albumin Level 3.4 g/dL (3.5-5.2); Alkaline Phosphatase 117 U/L (35-105); Anion Gap 15.1 (5-19); Aspartate Amino Transferase 15 U/L (0-32); Blood Urea Nitrogen 11 mg/dL (8-23); C Reactive Protein 72.8 mg/L (0.0-4.9); Calcium 8.7 mg/dL (8.5-10.5); Carbon Dioxide 22 mmol/L (22-29); Chloride 106 mmol/L (98-107); Globulin 3.6 g/dL (1.3-4.6); Glomerular Filtration Rate 71.1 mL/min (90-130); Glucose 96 mg/dL (65-115); Lipase 22 U/L (13-60); Osmolality Calculated 287 mOsm/kg (285-295); Potassium 4.1 mmol/L (3.5-5.1); Sodium 139 mmol/L (136-145); Total Bilirubin 0.2 mg/dL (0.15-1.2)
[2023-02-27 20:21] LABS: Add Urine Microscopic? YES; Bilirubin Urine 1+ (Negative); Blood Urine 2+ (Negative); Glucose Urine UA 3+ (Normal); Ketones Urine 1+ (Negative); Leukocyte Esterase Urine 2+ (Negative); Nitrate Urine Negative (Negative); Protein Urine Trace (Negative); Specific Gravity, Urine 1.005 (1.005-1.030); Urine Appearance Cloudy (CLEAR); Urine Color Yellow (Yellow); Urobilinogen Urine 1 mg/dL (Negative); WBC Urine >100 /hpf (0-5); pH Urine 7 (5-7)
[2023-02-27 20:22] LABS: Add Urine Culture? Yes; Amorphous Sediment Urine 1+ /hpf; Bacteria Urine 2+ /hpf
[2023-02-27] MEDS: ondansetron 2 mg/ML SDV 2 mL 4 MG IVP (20:36)
[2023-02-27] MEDS: sodium chloride 0.9% 1,000 ML 999 ML IV (20:37)
[2023-02-27] MEDS: HYDROmorphone 1 mg/mL INJ 1 mL IM (20:43)
[2023-02-27 20:48] VITALS: BP 96/52; PULSE 69; RESP 16; O2SAT 92
[2023-02-27 20:48] LABS: Lactic Sepsis W/Reflex 1.1 mmol/L (0.5-2.2)
[2023-02-27 21:00] VITALS: BP 101/55; PULSE 77; RESP 16; O2SAT 95
--- NOTE | 2023-02-27 21:11 | ED_ITS ---
HPI - Nausea/Vomiting/Diarrhea General: Chief complaint: Nausea/Vomiting/Diarrhea Stated complaint: reported fever, throwing up blood,cough Time Seen by Provider: 02/27/23 18:30 History of Present Illness: 68-year-old female here with vomiting, fever, and abdominal pain. She also has urinary tract symptoms, such as dysuria and frequency. She had surgery on her neck last month. Vomited a black substance night before last. She has not done this since. MD elicited complaint: nausea, vomiting and abdominal pain Associated nausea: Yes Associated symtoms: Reports nausea; Denies change in vision, chest pain or palpitations Review of Systems Const: Reports: fever(s), chills and body aches Eyes: Denies: change in vision ENMT: Denies: throat pain Card: Denies: chest pain or palpitations Resp: Reports: non-productive cough GI: Reports: abdominal pain, nausea and vomiting; Denies: diarrhea PFSH ED PFSH: Medical History Allergic rhinitis due to allergen Anxiety and depression CKD (chronic kidney disease) stage 3, GFR 30-59 ml/min Extrapyramidal and movement disorder High risk medication use Hyperlipidemia Hypothyroidism Iron deficiency anemia Lung nodule, solitary Prediabetes RLS (restless legs syndrome) Seropositive rheumatoid arthritis of multiple sites Substance or medication-induced sleep disorder, insomnia type Surgical History History of ankle surgery left History of appendectomy History of delivery History of cholecystectomy History of hysterectomy with bilateral oophorectomy Previous back surgery Social History Smoking and tobacco/nicotine status: former use of tobacco/nicotine Quit status (tobacco/nicotine): has quit using Year quit tobacco: 2009 Former quit date comment: Smoked for 9 months Alcohol intake: current Alcohol intake frequency: holidays/special occasions o nly Substance/Drug Use: never Physical Exam Const: COMMON NORMALS: no acute distress GENERAL APPEARANCE: cooperative and ill appearing (Mildly); not frail appearing ORIENTATION/CONSCIOUSNESS: Yes awake HENMT: COMMON NORMALS: normocephalic, atraumatic and Normal external nose present HEAD & SCALP: normocephalic and atraumatic FACE & SINUS: normal facial exam and face symmetric NOSE: Normal external nose present Eye: COMMON NORMALS: Equal, round and reactive pupils present and EOMs intact bilaterally PUPIL: Yes Equal, round and reactive pupils present Neck/C-Spine: GENERAL: Yes trachea midline Chest: CHEST: Yes Symmetrical chest wall rise Resp: COMMON NORMALS: normal respiratory effort, No retractions, No use of accessory muscles and clear to auscultation bilaterally AUSCULTATION: clear to auscultation bilaterally Cardio: COMMON NORMALS: regular rate and regular rhythm RATE: regular rate RHYTHM: regular rhythm GI: COMMON NORMALS: Normal to inspection, nondistended, normoactive bowel sounds present Extremity: COMMON NORMALS: no pedal edema Neuro: DORA COMA SCALE: document GCS findings [place] coma scale eye opening: Spontaneous Dora coma scale verbal response: Orientated Dora coma scale motor response: Obey commands [place] coma scale total score: 15 SENSORY EXAM: Yes extremities (intact) Psych: COMMON NORMALS: speech normal SPEECH: Yes normal speech Skin: COMMON NORMALS: no rashes or lesions noted GENERAL SKIN EXAM: no rashes or lesions noted Course Vital Signs: Vital signs: Vital Signs Temperature 99.2 F 02/27/23 23:55 Pulse Rate 77 02/27/23 23:55 Respiratory Rate 16 02/27/23 23:55 Blood Pressure 101/55 02/27/23 23:55 Pulse Oximetry 95 02/27/23 23:55 Oxygen Delivery Me thod Room Air 02/27/23 19:19 MDM - Nausea/Vomiting/Diarrhea Medical Decision Making 68-year-old female with multiple symptoms. Hemoglobin is 8.2, down from 10.2, but that was before her surgical spine surgery. CBC and BMP are otherwise not remarkable. C-reactive protein is 73, but this is chronically elevated in this patient. Patient is urinalysis shows greater than 100 whites, 2+ leukocyte Estrace, and 5-10 reds. 2+ bacteria. She is nitrate negative. CT shows no acute abnormality of the abdomen and pelvis with some streaky subsegmental pleural-based opacities in the right anterior middle lobe suggesting atelectasis. She is given IV Rocephin here for the urinary tract infection. She is stable otherwise. She will be placed on antibiotics and allowed home. She became upset on discharge, stating that she did not necessarily feel safe going home. She asked for pain medication. She was given pain medication twice while in the ER. She was informed that medically, we do not have a reason to keep her in the emergency department or in the hospital, as her condition is able to be treated as an outpatient. Lab Data 02/27/23 19:51 02/27/23 19:51 Radiology Impressions Abdomen/Pelvis CT 02/27/23 19:19 IMPRESSION: 1. No acute findings in the abdomen/pelvis. 2. Streaky subsegmental pleural-based opacity in the anterior right middle lobe, could represent atelectasis and/or aspiration. COMMENTS: Consistent with the [employer]'s Incidental Findings Committee white paper (J Am Ananth Radiol 2018): Any incidental renal lesion less than 1 cm or classified as too small to characterize, or any incidental cystic renal lesion characterized as simple-appearing, is likely benign. No follow-up imaging is recommended for these lesions per consensus recommendations based on imaging criteria. Chest X-Ray 02/27/23 19:19 IMPRESSION: No acute findings. Laboratory Results WBC 7.89 10^3/uL (3.29-11.43) 02/27/23 19:51 RBC 3.18 10^6/uL (3.85-5.65) L 02/27/23 19:51 Hgb 8.20 g/dL (11.27-16.99) L 02/27/23 19:51 Hct 26.9 % (36-47) L 02/27/23 19:51 MCV 84.6 fl (85-98) L 02/27/23 19:51 MCH 25.8 pg (27-33) L 02/27/23 19:51 MCHC 30.5 g/dL (30-55) 02/27/23 19:51 RDW 16.9 % (12.1-15.1) H 02/27/23 19:51 Plt Count 269 10^3/cmm (157-399) 02/27/23 19:51 MPV 9.5 fL (7.4-10.4) 02/27/23 19:51 Neut % (Auto) 72.5 % 02/27/23 19:51 Lymph % (Auto) 15.3 % 02/27/23 19:51 Simpson % (Auto) 9.6 % 02/27/23 19:51 Eos % (Auto) 2.2 % 02/27/23 19:51 Baso % (Auto) 0.1 % 02/27/23 19:51 Neut # (Auto) 5.72 10^3/uL (1.8-7.7) 02/27/23 19:51 Lymph # (Auto) 1.2 10^3/uL (0.8-4.8) 02/27/23 19:51 Simpson # (Auto) 0.8 10^3/uL (0.2-0.9) 02/27/23 19:51 Eos # (Auto) 0.2 10^3/uL (0.0-0.8) 02/27/23 19:51 Baso # (Auto) 0.0 10^3/uL (0.0-0.1) 02/27/23 19:51 Nucleated RBC % (auto) 0 % 02/27/23 19:51 Nucleated RBCs # 0.0 /100WBC 02/27/23 19:51 Sodium 139 mmol/L (136-145) 02/27/23 19:51 Potassium 4.1 mmol/L (3.5-5.1) 02/27/23 19:51 Chloride 106 mmol/L (98-107) 02/27/23 19:51 Carbon Dioxide 22 mmol/L (22-29) 02/27/23 19:51 Anion Gap 15.1 (5-19) 02/27/23 19:51 BUN 11 mg/dL (8-23) 02/27/23 19:51 Creatinine 0.8 mg/dL (0.5-0.9) 02/27/23 19:51 GFR Calculation 71.1 mL/min (90-130) L 02/27/23 19:51 Glucose 96 mg/dL (65-115) 02/27/23 19:51 Calculated Osmolality 287 mOsm/kg (285-295) 02/27/23 19:51 Lactic Acid 1.1 mmol/L (0.5-2.2) 02/27/23 20:17 Calcium 8.7 mg/dL (8.5-10.5) 02/27/23 19:51 Total Bilirubin 0.2 mg/dL (0.15-1.2) 02/27/23 19:51 AST 15 U/L (0-32) 02/27/23 19:51 ALT < 5 U/L (0-33) 02/27/23 19:51 Alkaline Phosphatase 117 U/L (35-105) H 02/27/23 19:51 C-Reactive Protein 72.8 mg/L (0.0-4.9) H 02/27/23 19:51 Total Protein 7.0 g/dL (6.6-8.7) 02/27/23 19:51 Albumin 3.4 g/dL (3.5-5.2) L 02/27/23 19:51 Globulin 3.6 g/dL (1.3-4.6) 02/27/23 19:51 Lipase 22 U/L (13-60) 02/27/23 19:51 Urine Color Yellow (Yellow) 02/27/23 19:25 Urine Appearance Cloudy (CLEAR) A 02/27/23 19:25 Urine pH 7 (5-7) 02/27/23 19:25 Ur Specific [place] 1.005 (1.005-1.030) 02/27/23 19:25 Urine Protein Trace (Negative) 02/27/23 19:25 Urine Glucose (UA) 3+ (Normal) H 02/27/23 19:25 Urine Ketones 1+ (Negative) H 02/27/23 19: Urine Blood 2+ (Negative) H 02/27/23 19:25 Urine Nitrate Negative (Negative) 02/27/23 19:25 Urine Bilirubin 1+ (Negative) H 02/27/23 19:25 Urine Urobilinogen 1 mg/dL (Negative) H 02/27/23 19:25 Ur Leukocyte Esterase 2+ (Negative) H 02/27/23 19:25 Urine RBC 5-10 /hpf (0-2) H 02/27/23 19:25 Urine WBC >100 /hpf (0-5) H 02/27/23 19:25 Ur Squamous Epith Cells 5-10 /hpf (0-5) H 02/27/23 19:25 Amorphous Sediment 1+ /hpf 02/27/23 19:25 Urine Bacteria 2+ /hpf (NONE) H 02/27/23 19:25 SARS-CoV-2 Ag (Rapid) negative (Negative) 02/27/23 20:45 All radiology interpretation(s) finalized by discharge Discharge Plan Discharge Patient Disposition: Home Clinical Impression: Urinary tract infection Condition: Stable Prescriptions: New ondansetron 4 mg film 4 mg PO DAILY PRN (Reason: nausea and vomiting) Qty: 15 0RF cefdinir 300 mg capsule 300 mg PO BID Qty: 14 0RF No Action gabapentin 300 mg capsule 300 mg PO TID Qty: 90 5RF oxycodone 5 mg tablet 7.5 mg PO TID PRN (Reason: pain) 30 Days Qty: 60 0RF ondansetron 4 mg tablet,disintegrating 4 mg PO DAILY PRN (Reason: Nausea And Vomiting) Qty: 30 2RF mirtazapine 15 mg tablet 15 mg PO BEDTIME Qty: 30 1RF levothyroxine 112 mcg tablet 112 mcg PO QAM Qty: 90 1RF Proventil HFA 90 mcg/actuation HFA aerosol inhaler 1 inh inhalation Q6H PRN (Reason: shortness of breath or wheezing) Qty: 6.7 5RF ropinirole 5 mg tablet 5 mg PO TID PRN (Reason: Restless Leg(S)) Qty: 270 0RF (DME) Bone growth stimulator See Rx Instructions .Route .MEDSUPPLY Qty: 1 0RF Rx Instructions: As directed (DME) Bone growth stimulator See Rx Instructions .Route .MEDSUPPLY Qty: 1 0RF Rx Instructions: As directed baclofen 10 mg tablet 10 mg PO BID PRN (Reason: Muscle Spasm) 30 Days Qty: 30 0RF latanoprost 0.005 % drops 1 drp ophthalmic (eye) QPM doxepin 6 mg tablet 6 mg PO BEDTIME PRN (Reason: sleep) leflunomide 20 mg tablet 20 mg PO QAM prednisone 10 mg tablet 10 mg PO DAILY furosemide 40 mg tablet 40 mg PO DAILY PRN (Reason: Edema) Discharge Orders: Discharge ED (Routine); Ordered 02/27/23 Ordered By: Ty Bragg Referrals: Kaiser Lisa MD [Primary Care Provider] - Patient Instructions: Urinary Tract Infection in Women (ED), Opioid Safety, Pain Management Activity Restrictions/Additional Instructions: Antibiotics as directed. Take nausea medication scheduled every 4 hours while awake for the first 24 hours, then as needed following. Follow a liquid diet for the first 12 hours, may increase as tolerated if no vomiting. Return for fever despite 2-3 doses of antibiotics, worsening pain despite treatment, vomiting liquids or medications, other concerning symptoms. Coding Level of Care Code ED Noc Engineer for Maribel Sweet
[2023-02-27] MEDS: cefTRIAXone 1,000 MG in sodium chloride 0.9% (plus) 50 ML 100 MG IV (21:12)
--- NOTE | 2023-02-27 21:21 | PC.NURSE ---
MD ordered 1 mg dilaudid. verbally informed RN to give 1/2 mg of dilaudid initially, wait 30 minutes, then administer the other 1/2 of dilaudid. At this time, 1 mg of dilaudid already drawn up in syringe. clinical specialist medical device informed. 1/2 of dilaudid administered at time indicated in JUN. 1/2 mg in syringe held and verified by smelter charger. At 2104, pt reported pain was at a 7/10. MD informed. instructed RN to administered other 1/2 of dilaudid. 1/2 mg of dilaudid administered at 2114. clinical specialist medical device informed.
[2023-02-27 21:34] LABS: SARS Covid-2 Antigen negative (Negative)
[2023-02-27 23:55] VITALS: BP 101/55; PULSE 77; RESP 16; TEMP 37.3; O2SAT 95
== END 2023-02-27 23:59 | disposition home or self-care (01) ==
PROVIDERS: Physician Assistant; Emergency Provider Emergency Medicine; PCP Family Medicine Adult Medicine
DX: N39.0 Urinary tract infection, site not specified (principal); Z11.52 Encounter for screening for COVID-19; N18.30 Chronic kidney disease, stage 3 unspecified; E78.5 Hyperlipidemia, unspecified; Z87.891 Personal history of nicotine dependence
CPT/HCPCS: 36415; 71045; 74177; 80053; 81001; 83605; 83690; 85025; 86140; 87040; 87086; 87426; 93005; 96365; 96366; 96375; 99285; J0696; J1170; J2405; J7030; Q9967

== ENCOUNTER 2023-03-01 08:00 | Emergency (ER) | payer MEDICARE, OTHER, SELFPAY ==
[2023-03-01] VITALS (8 sets, daily range): BP systolic 111–128; BP diastolic 47–82; PULSE 59–76; RESP 16–18; TEMP 37; O2SAT 94–99; BMI 20.8
--- NOTE | 2023-03-01 08:01 | XRR_ITS ---
PROCEDURE INFORMATION: Exam: XR Right Hip Exam date and time: 03/01/2023 8:17 AM Age: 68 years old Clinical indication: Injury or trauma; Fall; Blunt trauma (contusions or hematomas); Right; Hip TECHNIQUE: Imaging protocol: Radiologic exam of the right hip. Views: 1 view hip with pelvis when performed. COMPARISON: CT abdomen pelvis w con* [id number] 02/27/2023 7:53 PM FINDINGS: Bones/joints: Unremarkable. No acute fracture. No lytic or sclerotic bone lesion. Lower lumbar kyphoplasty. Soft tissues: Unremarkable. XR/XR hip RT 2-3V wo/w pel* [id number] IMPRESSION: No acute findings.
--- NOTE | 2023-03-01 08:06 | CT_ITS ---
WS: [id number] CT CERVICAL SPINE HISTORY: trauma TECHNIQUE: Contiguous 2.0 mm axial imaging performed through the entire cervical spine. Sagittal and coronal reformats also performed. All CT scans at [facility] use at least one of these dose o ptimization techniques: automated exposure control; mA and/or kV adjustment per patient size (include s targeted exams where dose is matched to clinical indication); or iterative reconstruction. DLP: 1317.08 mGy.cm COMPARISON: Radiograph 02/16/2023 Recent anterior cervical fusion extends from C3-C7 with interbody spacers. Very slight retraction of the C7 vertebral screw but also similar as identified on the prior radiographs. Does not appear to romeo ve changed as compared to 02/16/2023 radiograph. Craniocervical junction is normal. No acute vertebral body fracture. No hardware fracture. Facets are normally aligned. C2-C3: Normal. C3-C4: Facet arthritis. Mild to moderate foraminal stenosis. Mild central stenosis. C4-C5: Mild RIGHT foraminal stenosis due to osteophyte. C5-C6: Vertebral body osteophytes and facet arthritis. Moderate foraminal stenosis. C6-C7: Moderate foraminal stenosis due to osteophytes. C7-T1: Normal. Lung apices are clear. IMPRESSION: 1. Anterior cervical fusion with interbody spacers from C3-C7 appears intact. Slight retraction of th e C7 vertebral body screws. The radiograph from 02/16/2023 demonstrate a similar finding. 2. No fractures. 3. Multilevel foraminal narrowing predominately due to osteophyte disease.
--- NOTE | 2023-03-01 08:07 | CT_ITS ---
WS: [id number] CT HEAD NONCONTRAST HISTORY: trauma TECHNIQUE: Contiguous axial imaging performed through the brain in 2.5 mm imaging. Bone and soft tiss ue windows. Sagittal and coronal reformats reviewed. All CT scans at [facility] use at least one of these dose optimization techniques: automated exposure control; mA and/or kV adjustment per pa tient size (includes targeted exams where dose is matched to clinical indication); or iterative recon struction. DLP: 1317.08 mGy.cm COMPARISON: 06/23/2022 No acute intracranial hemorrhage, midline shift or mass effect. Mild atrophy and mild small vessel ischemic disease. Similar to the prior study. Benign calcification s in the basal ganglia. Ventricles: Ventricles are very mildly prominent on the basis of atrophy. No inferior displacement of the cerebellar tonsils. Moderate to severe distal vertebral and intracran ial carotid artery calcification. Paranasal sinuses: As visualized are clear. Mastoid air cells: Well pneumatized. Calvarium and scalp: Skull is intact with no soft tissue edema or swelling. IMPRESSION: 1. No acute intracranial hemorrhage or edema. 2. Mild cerebral atrophy and ventriculomegaly. 3. No skull fracture.
--- NOTE | 2023-03-01 08:08 | ED_ITS ---
HPI - General Adult General: Chief complaint: Fall Stated complaint: R hip pain/ Fall Time Seen by Provider: 03/01/23 08:01 Source: patient Mode of arrival: ambulatory History of Present Illness: 68-year-old female presents emergency room after a fall at home. She did mechanical ground-level fall. She earlier this month she had a ACDF she is still wearing a collar. She is not on any anticoagulants she is unsure whether or not she hit her head or lost consciousness there is no obvious injury to her head she does not tell the medics she hit her head when the medics said she actually denied it when I talked her she said she had. Denies any neck pain is complaining mostly of right hip pain. She was seen 2 days ago in the emergency room for a bladder infection and treated as an outpatient. No chest or abdominal pain at this time she did complain of abdominal pain when she was seen 2 days ago. Onset (ago): minute(s) Location: head and neck Relieving factors: none Exacerbating factors: none Associated symptoms: Deny chest pain, confusion, cough, diaphoresis, decreased appetite, dyspnea, fevers/chills, headache(s), malaise, nausea, rash, palpitations, seizures, short of breath, syncope, vomiting or weakness Review of Systems Const: Denies: fever(s), chills, fatigue, malaise or diaphoresis Card: Denies: chest pain, palpitations or syncope Resp: Denies: dyspnea GI: Denies: abdominal pain, nausea or vomiting : Denies: flank pain, dysuria, urinary frequency or urinary urgency Musc: Reports: joint pain; Denies: neck pain or back pain Skin/Breast: Denies: rash Neuro: Denies: headache(s) or confusion PFS ED PFSH: Medical History Allergic rhinitis due to allergen Anxiety and depression CKD (chronic kidney disease) stage 3, GFR 30-59 ml/min Extrapyramidal and movement disorder High risk medication use Hyperlipidemia Hypothyroidism Iron deficiency anemia Lung nodule, solitary Prediabetes RLS (restless legs syndrome) Seropositive rheumatoid arthritis of multiple sites Substance or medication-induced sleep disorder, insomnia type Surgical History History of ankle surgery left History of appendectomy History of delivery History of cholecystectomy History of hysterectomy with bilateral oophorectomy Previous back surgery Social History Smoking and tobacco/nicotine status: former use of tobacco/nicotine Quit status (tobacco/nicotine): has quit using Year quit tobacco: 2009 Former quit date comment: Smoked for 9 months Alcohol intake: current Alcohol intake frequency: holidays/special occasions only Substance/Drug Use: never Physical Exam Const: COMMON NORMALS: no acute distress GENERAL APPEARANCE: cooperative and comfortable ORIENTATION/CONSCIOUSNESS: Yes awake, Yes oriented to person, Yes oriented to place and Yes oriented to time HENMT: COMMON NORMALS: normocephalic, atraumatic and hearing grossly normal bilaterally HEAD & SCALP: normocephalic and atraumatic Resp: COMMON NORMALS: normal respiratory effort, No retractions, No use of accessory muscles and clear to auscultation bilaterally AUSCULTATION: clear to auscultation bilaterally Cardio: COMMON NORMALS: regular rate, regular rhythm and No murmurs present (Cardio) RATE: regular rate RHYTHM: regular rhythm GI: COMMON NORMALS: Soft to palpation and No hepatosplenomegaly present AUSCULTATION: Yes normoactive bowel sounds PALPATION: Yes Soft to palpation, No Tenderness to palpation present (GI), No Guarding due to palpation present (GI) and Yes No hepatosplenomegaly present Extremity: COMMON NORMALS: normal to inspection, capillary refill normal, no clubbing, cyanosis or edema, no calf tenderness and no pedal edema Neuro: SENSORIUM/ORIENTATION: Yes oriented to person, Yes oriented to place and Yes oriented to time Skin: COMMON NORMALS: no rashes or lesions noted GENERAL SKIN EXAM: no rashes or lesions noted Course Vital Signs: Vital signs: Vital Signs Temperature 98.6 F 03/01/23 08:06 Pulse Rate 61 03/01/23 13:00 Respiratory Rate 16 03/01/23 11:12 Blood Pressure 125/75 03/01/23 13:00 Pulse Oximetry 94 03/01/23 13:00 Oxygen Delivery Me thod Room Air 03/01/23 11:00 [facility] - General Adult Medical Decision Making CT of her head neck lumbar spine hip were all negative plain x-rays are unremarkable. She had a cystitis for looks like she pries chronic cystitis she grew out multiple contaminants again the most recent culture. I talked to Dr. Hung he did not really have anything reviewed admit her for reviewing her chart she recently had increased dose of oxycodone. At this point we do not have anything to admit for acute inpatient stay we did have case management and nursing work on getting her to the residential but there is some ingestible issues because of prior source and ultimately she decided not to go to the residential patient be discharged home continue same medications and re strictions as previously put in place by Dr. Hung follow-up with Dr. Hung primary care doctor. Medical Records I reviewed the patient's medical records. Lab Data I reviewed the patient's lab results. 03/01/23 08:45 03/01/23 08:45 Radiology Impressions Hip/Pelvis X-Ray 03/01/23 08:01 IMPRESSION: No acute findings. Laboratory Results WBC 3.63 10^3/uL (3.29-11.43) 03/01/23 08:45 RBC 3.31 10^6/uL (3.85-5.65) L 03/01/23 08:45 Hgb 8.40 g/dL (11.27-16.99) L 03/01/23 08:45 Hct 27.6 % (36-47) L 03/01/23 08:45 MCV 83.4 fl (85-98) L 03/01/23 08:45 MCH 25.4 pg (27-33) L 03/01/23 08:45 MCHC 30.4 g/dL (30-55) 03/01/23 08:45 RDW 16.5 % (12.1-15.1) H 03/01/23 08:45 Plt Count 261 10^3/cmm (157-399) 03/01/23 08:45 MPV 9.3 fL (7.4-10.4) 03/01/23 08:45 Neut % (Auto) 66.9 % 03/01/23 08:45 Lymph % (Auto) 17.6 % 03/01/23 08:45 [place] % (Auto) 13.8 % 03/01/23 08:45 Eos % (Auto) 1.1 % 03/01/23 08:45 Baso % (Auto) 0.3 % 03/01/23 08:45 Neut # (Auto) 2.43 10^3/uL (1.8-7.7) 03/01/23 08:45 Lymph # (Auto) 0.6 10^3/uL (0.8-4.8) L 03/01/23 08:45 [place] # (Auto) 0.5 10^3/uL (0.2-0.9) 03/01/23 08:45 Eos # (Auto) 0.0 10^3/uL (0.0-0.8) 03/01/23 08:45 Baso # (Auto) 0.0 10^3/uL (0.0-0.1) 03/01/23 08:45 Nucleated RBC % (auto) 0 % 03/01/23 08:45 Nucleated RBCs # 0.0 /100WBC 03/01/23 08:45 Sodium 136 mmol/L (136-145) 03/01/23 08:45 Potassium 3.5 mmol/L (3.5-5.1) 03/01/23 08:45 Chloride 102 mmol/L (98-107) 03/01/23 08:45 Carbon Dioxide 23 mmol/L (22-29) 03/01/23 08:45 Anion Gap 14.5 (5-19) 03/01/23 08:45 BUN 12 mg/dL (8-23) 03/01/23 08:45 Creatinine 1.1 mg/dL (0.5-0.9) H 03/01/23 08:45 GFR Calculation 49.2 mL/min (90-130) L 03/01/23 08:45 Glucose 113 mg/dL (65-115) 03/01/23 08:45 Calculated Osmolality 283 mOsm/kg (285-295) L 03/01/23 08:45 Calcium 9.1 mg/dL (8.5-10.5) 03/01/23 08:45 Total Bilirubin 0.2 mg/dL (0.15-1.2) 03/01/23 08:45 AST 18 U/L (0-32) 03/01/23 08:45 ALT < 5 U/L (0-33) 03/01/23 08:45 Alkaline Phosphatase 117 U/L (35-105) H 03/01/23 08:45 Total Protein 7.1 g/dL (6.6-8.7) 03/01/23 08:45 Albumin 3.7 g/dL (3.5-5.2) 03/01/23 08:45 Globulin 3.4 g/dL (1.3-4.6) 03/01/23 08:45 All radiology interpretation(s) finalized by discharge Discharge Plan Discharge Patient Disposition: Home Clinical Impression: Acute pain of right hip, Lung nodule, solitary, Seropositive rheumatoid arthritis of multiple sites, Urinary tract infection, Chronic low back pain Condition: Stable Prescriptions: No Action gabapentin 300 mg capsule 300 mg PO TID Qty: 90 5RF mirtazapine 15 mg tablet 15 mg PO BEDTIME Qty: 30 1RF levothyroxine 112 mcg tablet 112 mcg PO QAM Qty: 90 1RF (DME) Bone growth stimulator See Rx Instructions .Route .MEDSUPPLY Qty: 1 0RF Rx Instructions: As directed (DME) Bone growth stimulator See Rx Instructions .Route .MEDSUPPLY Qty: 1 0RF Rx Instructions: As directed baclofen 10 mg tablet 10 mg PO BID PRN (Reason: Muscle Spasm) 30 Days Qty: 30 0RF latanoprost 0.005 % drops 1 drp ophthalmic (eye) QPM doxepin 6 mg tablet 6 mg PO BEDTIME PRN (Reason: sleep) leflunomide 20 mg tablet 20 mg PO QAM cefdinir 300 mg capsule 300 mg PO BID Qty: 14 0RF Rx Instructions: rx written 02/27/23-pt didnt slate picker prednisone 10 mg tablet 5 mg PO DAILY furosemide 40 mg tablet 40 mg PO DAILY PRN (Reason: Edema) ondansetron HCl 4 mg tablet 4 mg PO Q8H PRN (Reason: Nausea And Vomiting) alprazolam 0.5 mg tablet 0.5 mg PO BID PRN (Reason: Anxiety) dexlansoprazole 30 mg capsule,biphase delayed releas 30 mg PO BEDTIME Ventolin HFA 90 mcg/actuation HFA aerosol inhaler 1 inh inhalation Q6H PRN (Reason: shortness of breath or wheezing) ropinirole 5 mg tablet 5 mg PO TID Bactrim DS 800-160 mg Tablet 1 tab PO BID Rx Instructions: rx filled 02/04/23 5d/s oxycodone 5 mg tablet 10 mg PO Q6H PRN (Reason: pain) Discharge Orders: Discharge ED (Routine); Ordered 03/01/23 Ordered By: Sammy Plaza Referrals: Kaiser Lisa MD [Primary Care Provider] - Discharge Diet: Usual diet Discharge Activity: Increase activity as tolerated Patient Instructions: Opioid Safety, Pain Management Activity Restrictions/Additional Instructions: Thank you for choosing [facility] for your healthcare needs today. Please realize this is an emergency room and that we are providing you with a medical screening exam and this may not be complete and all inclusive of all the testing and or work up that you may need to determine your ailment or severity of your illness. It is very important that you follow up as instructed or that you return to the Emergency Department should you have concerns or if your condition changes or worsens in any way. Extensive evaluation in the emergency room CT of your head neck lumbar spine and hip showed no acute fractures. There are changes of chronic arthritis and the recent surgery in your neck. There are old lumbar spine fractures which you had kyphoplasty. The urine culture that was done 2 days ago when you are in the emergency room shows contamination with no distinct bacteria. You should continue the antibiotics you are previously prescribed. We discussed your case with Dr. Hung who did your neck surgery at this point there is no new interventions to perform. Continue previously advised postop instructions and use previously prescribed pain medications. Complete the course of antibiotics Dr. Bragg given you. Coding Level of Care Code ED Flight Operation Coordinator for Maribel Sweet
[2023-03-01 08:57] LABS: Basophils % 0.3 %; Eosinophils % 1.1 %; Hematocrit 27.6 % (36-47); Lymphocytes # 0.6 10^3/uL (0.8-4.8); Lymphocytes % 17.6 %; Mean Corpuscular HGB Conc 30.4 g/dL (30-55); Mean Corpuscular Hemoglobin 25.4 pg (27-33); Mean Corpuscular Volume 83.4 fl (85-98); Mean Platelet Volume 9.3 fL (7.4-10.4); Monocytes # 0.5 10^3/uL (0.2-0.9); Monocytes % 13.8 %; Neutrophils # 2.43 10^3/uL (1.8-7.7); Neutrophils % 66.9 %; Nucleated Red Blood Cells % 0 %; Platelet Count 261 10^3/cmm (157-399); Red Blood Count 3.31 10^6/uL (3.85-5.65); Red Cell Distribution Width 16.5 % (12.1-15.1); White Blood Count 3.63 10^3/uL (3.29-11.43)
[2023-03-01 09:20] LABS: Alanine Aminotransferase < 5 U/L (0-33); Albumin Level 3.7 g/dL (3.5-5.2); Alkaline Phosphatase 117 U/L (35-105); Anion Gap 14.5 (5-19); Aspartate Amino Transferase 18 U/L (0-32); Blood Urea Nitrogen 12 mg/dL (8-23); Calcium 9.1 mg/dL (8.5-10.5); Carbon Dioxide 23 mmol/L (22-29); Chloride 102 mmol/L (98-107); Globulin 3.4 g/dL (1.3-4.6); Glomerular Filtration Rate 49.2 mL/min (90-130); Glucose 113 mg/dL (65-115); Osmolality Calculated 283 mOsm/kg (285-295); Potassium 3.5 mmol/L (3.5-5.1); Sodium 136 mmol/L (136-145); Total Bilirubin 0.2 mg/dL (0.15-1.2); Total Protein 7.1 g/dL (6.6-8.7)
--- NOTE | 2023-03-01 09:28 | CT_ITS ---
WS: [id number] CT LUMBAR SPINE, noncontrast. HISTORY: trauma TECHNIQUE: Contiguous 2.0 mm axial imaging are performed. Sagittal and coronal reformats are submitte d and reviewed. All CT scans at [facility] use at least one of these dose optimization techni ques: automated exposure control; mA and/or kV adjustment per patient size (includes targeted exams w here dose is matched to clinical indication); or iterative reconstruction. IV contrast: None DLP: 755.05 mGy.cm COMPARISON: 12/03/2022 CT Retrolisthesis of L2 and L3. Most significant retrolisthesis at L2 by 3.8 mm. Methylmethacrylate in L 4 and L5. No acute compression fractures. Disc spaces are narrowed and desiccated. L1-2: Diffuse annular disc bulging encroaching upon the thecal sac and foramina. L2-3: Mild retrolisthesis of L2 encroaching upon the ventral thecal sac with advanced diffuse disc bu lging and osteophytosis. Moderate central and bilateral subarticular recess stenosis. Most significan t disc encroachment extending into the LEFT subarticular recess and foramina. There is significant co ntact on the LEFT traversing L3 nerve root. L3-4: Marked annular disc bulging, ligamentum flavum and facet arthritis. Disc encroaches into the bernabe barticular recess. Severe central, bilateral subarticular recess and foraminal stenosis, LEFT greater than RIGHT. Disc protrudes inferior and posterior to L4. L4-5: Marked annular disc bulging with ligamentum flavum and facet arthritis. Severe central, bilater al subarticular recess and foraminal stenosis. L5-S1: Marked annular disc bulging with mild disc encroachment upon the S1 nerve roots. Heavy calcification in the aorta. No adrenal mass. Splenic artery calcification. IMPRESSION: 1. No acute lumbar spine fracture. 2. Prior vertebroplasties at L4 and L5. 3. Multilevel areas of central, bilateral foraminal and subarticular recess stenosis. 4. Most significant stenoses from L2-3 through L4-5. Severe central, subarticular recess and foramina l stenosis at L3-4 and L4-5. More moderate at L2-3. Disc protrusions and osteophyte contribute to the stenosis. 5. Disc protrusion extends into the LEFT subarticular recess and foramina at L2-3.
--- NOTE | 2023-03-01 09:28 | CT_ITS ---
WS: [id number] CT RIGHT HIP, NONCONTRAST. HISTORY: trauma Technique: All CT scans at [facility] use at least one of these dose optimization techniques: automated exposure control; mA and/or kV adjustment per patient size (includes targeted exams where dose is matched to clinical indication); or iterative reconstruction. DLP: 755.05 mGy.cm COMPARISON: None available. No fracture or dislocation involving the RIGHT hip. Normal symphysis pubis. No soft tissue mass or he matoma. Scattered calcifications in the femoral artery. IMPRESSION: No RIGHT hip fracture.
[2023-03-01] MEDS: morphine 4 mg/mL SDV 1 mL 2 MG IVP (09:43)
[2023-03-01] MEDS: ketorolac 30 mg/mL INJ 15 MG IVP (09:44)
--- NOTE | 2023-03-01 10:41 | PC.PHAR ---
pt states she is taking care of her own medications-pt states she never filled the cefdinir 300mg bid written 02/27/23 [facility] the [facility]-pt states she has been taking an old rx of bactrim ds 1 tab bid [facility] 02/04/23 #10 5d/s-pt states the dr increased to 10mg po q6h prn [facility] last /14/23 30d/s 7.5mg po tid prn-pt states she is still taking prednisone 10mg tab takes 1/2 tab 5mg daily rx written 02/03/23 10mg daily-notes are made in the pharmacy notes
[2023-03-01] MEDS: oxyCODONE 5 mg IR Tab/Cap PO (11:12)
--- NOTE | 2023-03-01 13:52 | PC.NURSE ---
PT STATES SHE IS UNABLE TO STAND OR BE ON HER FEET. PT FOUND STANDING IN HER ROOM KNOCKING ON ROOM DOOR ASKING FOR SANDWHICH. PT AMBULATES APPROPRIATELY WITHOUT HELP.
--- NOTE | 2023-03-01 14:24 | PC.SOCIAL ---
Medical Office Clerk Vi from ER calls to discuss patient as patient is requesting NH placement. DENISE reviewed previous record and patient was DC'd to [facility]. Provided Vi w/ [facility] phone number and she called and spoke to Maricarmen. Maricarmen reports that patient does have skilled days left and they would accept patient back. She reports that patient was doing better and chose to DC home w/ . New referral faxed to [facility] @ this time.
--- NOTE | 2023-03-01 15:18 | PC.SOCIAL ---
Social Service Maricarmen calls back and reports that after reviewing the documentation they do not feel that patient has skillable need and she would have to come private pay. She reports she has called the patient and patient reports she cannot walk. Maricarmen is requesting to talk w/ nursing to further discuss the patients current condition. DENISE called ER and provided [facility] phone number and requested that they call and speak to Maricarmen to discuss patients current level of functioning.
--- NOTE | 2023-03-01 15:58 | PC.SOCIAL ---
[employer] DENISE called and spoke to Maricarmen @ [facility] who reports that after discussing w/ the patient care nurse patient is not skillable if she would want SNF she would have to private pay. DENISE then called ER and spoke to Chantelle and updated so they could discuss w/ patient and if patient wants to private pay they can call [facility] back. She verbalized understanding.
--- NOTE | 2023-03-01 17:19 | PC.NURSE ---
I ASSISTED DR DAMON HIS WITNESS WHEN HE TOLD PT THERE WAS NOTHING ACUTELY WRONG WITH HER CONDITION FOR HER TO BE ADMITTED AND EVERYTHING WAS CHRONIC FROM THE PAST WITH A MIXTURE OF RA. PT REQUESTED TO GO TO [facility] SO DR DAMON ATTEMPTED TO GET HER SENT TO [facility]. THROUGHOUT STAY, WAITING TO HEAR FROM [facility], PT WAS ON HER CALL LIGHT SEVERAL TIMES REQUESTING VARIOUS THINGS. WHILE NURSES WERE CHARTING/BUSY WITH OTHER PATIENTS PT HAD HIT HER CALL LIGHT THEN STOOD UP AND WALKED TO HER ROOM DOOR TO KNOCK ON IT TO LET US KNOW SHE HAD HIT HER CALL LIGHT. PT WAS VERY RUDE DURING EVERY ENCOUNTER WITH MULTIPLE DIFFERENT NURSES INCLUDING FINANCIAL RETIREMENT PLAN SPECIALIST. PT YELLED AND SHOUTED AT ME PERSONALLY TELLING ME WHAT I WAS GOING TO DO FOR HER. ONE OF THE NURSES HELPING TAKE CARE OF HER HAD TALKED TO THE [facility] AND ANSWERED THEIR QUESTIONS ABOUT HER CARE. WHEN NURSE WAS ASKED IF SHE WAS AMBULATORY THE NURSE ANSWERED YES SINCE SHE HAD GOTTEN UP AND WALKED FROM HER BED TO THE ROOM DOOR. PT WAS THEN TOLD MULTIPLE TIMES THAT THE [facility] WILL ACCEPT HER IF SHE PRIVATE PAYS. PT DECLINED AND CONTINUED TO DEMAND TO SEE THE DOCTOR AND REFUSED TO LEAVE/ BE DISCHARGED BEFORE GOING HOME.
== END 2023-03-01 16:40 | disposition home or self-care (01) ==
PROVIDERS: Emergency Provider Family Medicine; PCP Family Medicine Adult Medicine
DX: G89.29 Other chronic pain (principal); M54.50 Low back pain, unspecified; M25.551 Pain in right hip; R91.1 Solitary pulmonary nodule; M05.9 Rheumatoid arthritis with rheumatoid factor, unspecified; N39.0 Urinary tract infection, site not specified; Z87.891 Personal history of nicotine dependence; N18.30 Chronic kidney disease, stage 3 unspecified; E78.5 Hyperlipidemia, unspecified
CPT/HCPCS: 70450; 72125; 72131; 73502; 73700; 80053; 85025; 96374; 96375; 99285; 99291; J1885; J2270

== ENCOUNTER → 2023-03-02 10:55 | Outpatient (BNVA) | payer MEDICARE, OTHER, SELFPAY | PROVIDERS: PCP Family Medicine Adult Medicine; Visit Provider Orthopaedic Surgery | DX: Z98.1 Arthrodesis status; Z47.89 Encounter for other orthopedic aftercare | CPT/HCPCS: 72040; 99024 ==

== ENCOUNTER → 2023-03-16 08:18 | Outpatient (BNVA) | payer MEDICARE, OTHER, SELFPAY | PROVIDERS: PCP Family Medicine Adult Medicine; Visit Provider Orthopaedic Surgery | DX: Z98.1 Arthrodesis status (principal); Z47.89 Encounter for other orthopedic aftercare; T84.216A Breakdown (mechanical) of internal fixation device of vertebrae, initial encounter; Y79.2 Prosthetic and other implants, materials and accessory orthopedic devices associated with adverse incidents | CPT/HCPCS: 72040; 99024 ==

== ENCOUNTER → 2023-04-08 10:50 | Outpatient (BNVA) | payer MEDICARE, OTHER, SELFPAY | PROVIDERS: PCP Family Medicine Adult Medicine; Visit Provider Physician Assistant | DX: Z47.89 Encounter for other orthopedic aftercare (principal); Z98.1 Arthrodesis status | CPT/HCPCS: 72040; 99213 ==

== ENCOUNTER 2023-04-22 14:33 | Outpatient (CLI) | payer MEDICARE, OTHER, SELFPAY ==
--- NOTE | 2023-04-22 15:00 | CTR_ITS ---
PROCEDURE INFORMATION: Exam: CT Cervical Spine Without Contrast Exam date and time: 04/22/2023 4:55 PM Age: 68 years old Clinical indication: Pain; Cervicalgia; Prior surgery; Surgery date: 1-6 months; Surgery type: Cspine in jan 2023. ; Additional info: Cervical pain TECHNIQUE: Imaging protocol: Computed tomography of the cervical spine without contrast. Radiation optimization: All CT scans at this facility use at least one of these dose optimization techniques: automated exposure control; mA and/or kV adjustment per patient size (includes targeted exams where dose is matched to clinical indication); or iterative reconstruction. COMPARISON: CT cervical spin wo con* [id number] 03/01/2023 8:27 AM RADIATION DOSE METRICS: Total DLP (mGy-cm): 185.87 FINDINGS: Bones/joints: C3 through C7 anterior fusion. Lucency surrounding the C3 screws is noted within the C3 vertebral body. This was not present on the prior study. The more left-sided C7 vertebral body screw is not flush with the screw plate as seen on the prior study. Slight retrolisthesis at C3-C4 and C4-C5 as seen on prior study. No acute fracture. Interbody grafts are located anteriorly within the disc spaces at C3-C4 and C4-C5 as previously. No bony canal stenosis. Multi level neural foraminal narrowing which is mild secondary to uncovertebral and facet hypertrophy. Lungs: Lung apices are normal. Soft tissues: Unremarkable. CT/CT cervical spin wo con* [id number] IMPRESSION: C3 through C7 fusion. There is a new finding of lucency surrounding the screws at C3 raising question of ongoing motion. Persistence slight retraction left-sided C7 screw. No canal stenosis. Scattered degenerative changes.
== END 2023-04-22 14:34 | disposition home or self-care (01) ==
LOC: RAD 14:34
PROVIDERS: PCP Family Medicine Adult Medicine; Visit Provider Physician Assistant
DX: Z98.1 Arthrodesis status (principal)
CPT/HCPCS: 72125

== ENCOUNTER → 2023-04-27 08:50 | Outpatient (BNVA) | payer MEDICARE, OTHER, SELFPAY | PROVIDERS: PCP Physician Assistant; Visit Provider Orthopaedic Surgery | DX: Z98.1 Arthrodesis status (principal); Z47.89 Encounter for other orthopedic aftercare; T84.216A Breakdown (mechanical) of internal fixation device of vertebrae, initial encounter; Y79.2 Prosthetic and other implants, materials and accessory orthopedic devices associated with adverse incidents | CPT/HCPCS: 36415; 80053; 81001; 85025; 99024 ==

== ENCOUNTER → 2023-05-04 14:05 | Outpatient (BNVA) | payer MEDICARE, OTHER, SELFPAY | PROVIDERS: PCP Physician Assistant; Visit Provider Internal Medicine Rheumatology | DX: Z79.899 Other long term (current) drug therapy (principal); M05.79 Rheumatoid arthritis with rheumatoid factor of multiple sites without organ or systems involvement; Z71.85 Encounter for immunization safety counseling | CPT/HCPCS: 99214 ==

== ENCOUNTER 2023-05-12 14:47 | Inpatient (IN) | payer MEDICARE, OTHER, SELFPAY ==
[2023-05-12] VITALS (22 sets, daily range): BP systolic 93–146; BP diastolic 54–90; PULSE 63–82; RESP 12–25; TEMP 36.3–36.9; O2SAT 90–99; BMI 20.4
[2023-05-12] MEDS: scopolamine 1.5 Patch 1 PATCH TRANSDERMA (09:34)
[2023-05-12] MEDS: sodium chloride 0.9% 1,000 ML 30 ML IV (09:34)
[2023-05-12] MEDS: fentaNYL 50 mcg/mL INJ 2mL IVP ×3 (10:48→15:11)
--- NOTE | 2023-05-12 10:48 | ANES.PREANE2 ---
Pre-Anesthetic Assessment Height/Weight: Height 1.63 m Weight 53.977 kg Temp Pulse Resp BP Pulse Ox O2 Del Method 98.1 F 80 16 137/77 97 Room Air 05/12/23 09:20 05/12/23 09:20 05/12/23 09:20 05/12/23 09:20 05/12/23 09:20 05/12/23 09:25 Preop Diagnosis: Loosening of cervical hardware Operation Date: 05/12/23 10:55 Proposed Procedures p Hardware Removal Cervical(Not Applicable) - Ryan Hung, DO Familial anesthetic complications: PONV Was Beta Karlos taken within 24 hours: N/A Was Clonidine taken within 24 hours: N/A Last intake: Intake Last Liquid Date 05/11/23 Last Liquid Time 23:00 Last Solid Date 05/11/23 Last Solid Time 23:00 Social Tobacco and No alcohol vapes Exam alert, oriented x 3, clear to auscultation bilaterally and regular rate & rhythm Airway Mallampati: Class II Dentition: false Comments: Comments: Cervical fusion C3-C7, Glidsescope RSI in past CV/HEM Congestive Heart Failure and Deep Vein Thrombosis Chronic Renal Insufficiency GI Gastroesophageal Reflux Disease stomach mass Metabolic Diabetes Mellitus and Thyroid Disease [facility] Rheumatoid Arthritis Neuropsych Seizure Anesthetic Plan ASA status: 3 Anesthesia: General Risk of > 500 ml blood loss (7ml/kg in children): No Medications/Allergies Home Medications Medication Instructions Recorded Confirmed Last Taken Type latanoprost 0.005 % eye drops 1 drp ophthalmic (eye) QPM 06/17/22 05/11/23 05/10/23 History levothyroxine 112 mcg tablet 112 mcg PO QAM low thyroid #90 tabs 10/15/22 05/11/23 05/12/23 02:00 Rx gabapentin 300 mg capsule 300 mg PO TID chronic pain #90 caps 10/22/22 05/11/23 05/11/23 Rx Bone growth stimulator #1 ea 01/22/23 05/04/23 Unknown Rx prednisone 10 mg tablet 5 mg PO DAILY 02/03/23 05/11/23 04/21/23 History Bone growth stimulator #1 ea 02/05/23 05/04/23 Unknown Rx furosemide 40 mg tablet 40 mg PO DAILY PRN Edema 02/08/23 05/12/23 05/05/23 History albuterol sulfate 90 mcg/actuation 1 inh inhalation Q6H PRN shortness 03/01/23 05/12/23 05/11/23 History aerosol inhaler (Ventolin HFA) of breath or wheezing ondansetron HCl 4 mg tablet 4 mg PO Q8H PRN Nausea And Vomiting 03/01/23 05/12/23 05/10/23 History ropinirole 5 mg tablet 5 mg PO TID 03/01/23 05/11/23 05/12/23 02:00 History baclofen 10 mg tablet 10 mg PO BID PRN Muscle Spasm 30 03/10/23 05/12/23 05/12/23 02:00 Rx days #30 tabs diazepam 5 mg tablet (Valium) 5 mg PO BID PRN anxiety #14 tabs 04/27/23 05/12/23 05/11/23 Rx folic acid 1 mg tablet 1 mg PO DAILY #90 tabs 05/04/23 05/11/23 05/11/23 Rx insulin syringes (disposable) 1 mL #25 ea 05/04/23 05/04/23 Unknown Rx methotrexate sodium 25 mg/mL 20 mg (0.8 mL) SUBCUT .Q7days #10 05/04/23 05/11/23 Unknown Rx injection solution mL oxycodone 5 mg tablet 10 mg (2 x 5 mg) PO Q6H PRN pain 7 05/04/23 05/12/23 05/12/23 02:00 Rx days #40 tabs promethazine 12.5 mg tablet 12.5 mg PO BID 05/04/23 05/11/23 05/11/23 History dexlansoprazole 30 mg See Rx Instructions .Route 05/12/23 05/12/23 04/28/23 Rx capsule,biphase delayed release .COMPLEX #90 caps Allergies Allergy/AdvReac Type Severity Reaction Status Date / Time tizanidine Allergy Unknown Unknown Verified 05/12/23 09:17 amitriptyline Allergy ADR-Agitate Verified 05/12/23 09:17 d diphenhydramine Allergy ADR-Agitate Verified 05/12/23 09:17 [From Benadryl] d prochlorperazine Allergy Unknown Verified 05/12/23 09:17 [From Compazine] leflunomide AdvReac Intermediate GI adverse Verified 05/12/23 09:17 reactions sulfasalazine AdvReac Intermediate ADR-Nausea Verified 05/12/23 09:17 and acid reflux Current Medications Generic Name Dose Route Start Last Admin Trade Name Christina PRN Reason Stop Dose Admin Sodium Chloride 1,000 mls @ 30 mls/hr 05/12/23 09:15 05/12/23 09:34 Sodium Chloride 0.9% IV 05/13/23 09:14 30 mls/hr .Q24H KIM Administration PFSH Anesthesia Medical History Allergic rhinitis due to allergen RLS (restless legs syndrome) Substance or medication-induced sleep disorder, insomnia type Anxiety and depression High risk medication use Seropositive rheumatoid arthritis of multiple sites Extrapyramidal and movement disorder CKD (chronic kidney disease) stage 3, GFR 30-59 ml/min Lung nodule, solitary Prediabetes Hyperlipidemia Iron deficiency anemia Hypothyroidism Surgical History History of cholecystectomy History of appendectomy History of delivery History of hysterectomy with bilateral oophorectomy History of ankle surgery left Previous back surgery Social History Smoking and tobacco/nicotine status: former use of tobacco/nicotine Quit status (tobacco/nicotine): has quit using Year quit tobacco: 2009 Former quit date comment: Smoked for 9 months Alcohol intake: current Alcohol intake frequency: holidays/special occasions only Substance/Drug Use: never Data Anesthesia Cardiac Studies: Echocardiogram 06/17/22 Cardiac Event Monitor 07/13/22
--- NOTE | 2023-05-12 11:03 | W.PM.OPSUD ---
Surgery/Procedure H&P Update DATE OF PROCEDURE: May 12, 2023 DATE H&P PERFORMED: 04/27/23 H&P UPDATE INFORMATION: I have reviewed H&P completed within last 30 days, I have examined patient prior to procedure and No changes to prior documentation PREOP DIAGNOSIS: Loosening of cervical hardware PLANNED PROCEDURE: Operation Date: 05/12/23 10:55 Proposed Procedures p Hardware Removal Cervical(Not Applicable) - Ryan Hung, DO
[2023-05-12] MEDS: ceFAZolin 2,000 MG in sodium chloride 0.9% (plus) 50 ML 100 MG IV ×2 (11:59→20:45)
[2023-05-12] MEDS: lidocaine-epi 1% 20 mL INJ INJECTION (12:40)
--- NOTE | 2023-05-12 14:51 | CTR_ITS ---
PROCEDURE INFORMATION: Exam: CT Cervical Spine Without Contrast Exam date and time: 05/12/2023 4:30 PM Age: 68 years old Clinical indication: Device placement; Internal orthopedic prosthetic device, implant or graft of neck; Prior surgery; Surgery date: Post-operative (0-2 days); Surgery type: C spine TECHNIQUE: Imaging protocol: Computed tomography of the cervical spine without contrast. Radiation optimization: All CT scans at this facility use at least one of these dose optimization techniques: automated exposure control; mA and/or kV adjustment per patient size (includes targeted exams where dose is matched to clinical indication); or iterative reconstruction. COMPARISON: CT cervical spin wo con* [id number] 04/22/2023 4:55 PM RADIATION DOSE METRICS: Total DLP (mGy-cm): 160.72 FINDINGS: Tubes, catheters and devices: . A surgical drain is present entering in the anterolateral right mid cervical level with the tip terminating in the prevertebral tissues at the level of the larynx. Mild to moderate surrounding soft tissue edema without obvious large fluid collection. Expected small amount of postsurgical air in the subcutaneous tissues of the right lower neck and supraclavicular region. Bones/joints: Interval revision and removal/replacement of anterior fusion hardware since 04/22/2023 CT. Vertebral body screws at C3, C4 and C5. The tip of the C4 and C5 screws project posterior to the margin of the vertebral body by up to 1 and 2 mm, respectively. Disc devices present at C5-C6 and C6-C7. Other anterior fusion hardware screws and plates have been removed from C5-C6 and C6-C7 . Portions of the disc spacer devices also appear to have been removed from C3-C4 and C4-C5. There is mild fragmentation/interval osseous resection of C3 and C4 vertebra compared to prior. Mild retrolisthesis of C3 over C4 is unchanged. No new vertebral height loss or wedge compression. No facet malalignment. No acute fracture identified in the pedicles or posterior elements. Moderate multilevel uncovertebral spurring is again demonstrated resulting in moderate foraminal stenosis at C3-C4, C4-C5 and C5-C6 bilaterally. Lungs: Lung apices are normal. Soft tissues: See Tubes, catheters and devices finding. CT/CT cervical spin wo con* [id number] IMPRESSION: 1. Interval anterior fusion hardware revision/replacement since 04/22/2023, hardware placement as described above. Slight protrusion of C4 on C5 screws beyond the posterior vertebral margin by 1-2 mm. 2. Surgical drain terminating in the right lower neck prevertebral tissues with mild surrounding edema but no large fluid collection.
--- NOTE | 2023-05-12 14:56 | PM.OP ---
Operative Report Date of procedure: May 12, 2023 Pre-op diagnosis: Nonunion cervical spine Post-op diagnosis: same Procedure done: 1. revision Anterior diskectomy C3/4 2. revision Anterior discectomy C4/5 3. Insertion of cage C3/4 4. Insertion of Cage C4/5 5. Instrumentation from C3-5 6. Use of allograft 7. Removal of plate from C3-C7 Surgeon: Ryan Hung DO Estimated blood loss (mL): 50 Procedure: 1. revision Anterior diskectomy C3/4 2. revision Anterior discectomy C4/5 3. Insertion of cage C3/4 4. Insertion of Cage C4/5 5. Instrumentation from C3-5 6. Use of allograft 7. Removal of plate from C3-C7 The patient was taken to the operating room, where he underwent general endotracheal anesthesia without complications. He was then positioned supine on the operating table, and all areas of impingement were well padded. The arms were carefully padded and tucked at his sides. A roll was placed between the shoulder blades.. An x-ray was done to determine the appropriate level for the skin incision. The entire neck was then sterilely prepped and draped in the usual fashion. A transverse skin incision was made and carried down to the platysma muscle. This there was significant scar tissue throughout the approach. This was then split in line with its fibers. Blunt dissection was carried down medial to the carotid sheath and lateral to the trachea and esophagus until the anterior cervical spine was visualized. A needle was placed into a disc and an x-ray was done to determine its location. The longus colli muscles were then elevated bilaterally with the electrocautery unit. Self-retaining retractors were placed deep to the longus colli muscle. The plate was identified. The tissue was taken down off of the plate. Screws were removed screw all the screws were significantly loose. Plate was removed. Then cages were tested the 3 4 and 4 5 cage were significantly loose this point I took them out. The 5 6 and 6 7 I had some stability to them therefore left of these in. At this point then started revising the ACDF's at C3-4 and C4-5 Attention was brought to the C3-4 level that was confirmed on x-ray. . The microscope was then brought in. A radical anterior discectomies were performed at C3-4 there is a lot of fibrous tissue for the cage had been. This was all drilled out.The posterior longitudinal ligament was removed that was left and had scar on it. Foramen were open with curved curettes and Kerrison rongeurs as were the posterior osteophytes. Foraminotomies were then accomplished bilaterally. This was done using a high speed demetrice, kerrison rongeurs and curretes Once all of this was accomplished, the curved currette was used to check for any residual compression. The central canal was wide open as were the foramen. A high-speed bur was used to remove the cartilaginous endplates above and below the interspace. Bleeding cancellous bone was exposed. The disc space were measured and appropriate size cage were placed sterilely onto the field. Allograft graft was packed into the cages. The cage was then placed and there was good juxtaposition against the bleeding decorticated surfaces and good distraction of each interspace. Attention was brought to the next interspace. Attention was brought to the C4/5 level that was confirmed on x-ray. The microscope was then brought in. Scar tissue was taken down C/5. This included complete removal of the anterior scar and bone was drilled down to the posterior longitudinal ligament the posterior longitudinal ligament was removed as were the posterior osteophytes. Foraminotomies were then accomplished bilaterally. This was done using a high speed demetrice, kerrison rongeurs and curretes Once all of this was accomplished, the curved currette was used to check for any residual compression. The central canal was wide open as were the foramen. A high-speed bur was used to remove the cartilaginous endplates above and below the interspace. Bleeding cancellous bone was exposed. The disc space were measured and appropriate size cage were placed sterilely onto the field. Allograft graft was packed into the cages. The cage was then placed and there was good juxtaposition against the bleeding decorticated surfaces and good distraction of each interspace. The appropriate size screws were placed into the cages both in C3-C4-C5 Two screws were then placed into each of the vertebral bodies at 1 screw was placed at C3. 2 screws were placed at C4 1 screw at C5. There was excellent purchase. A final x-ray was done confirming good position of the hardware and Cages. The locking screws were then applied, also with excellent purchase. Following a final copious irrigation, there was good hemostasis and no dural leaks. The carotid pulse was strong. The wounds were then closed in layers using 2-0 Vicryl suture for the platysma muscle, 2-0 Vicryl suture for the subcutaneous tissue, and 4-0 monocryl suture in a subcuticular skin closure. Glue was placed followed by application of a sterile dressing. The drain was hooked to bulb suction. A soft collar was applied. The patient was then carefully returned to the supine position on his hospital bed where he was reversed and extubated and taken to the recovery room having tolerated the procedure well.
--- NOTE | 2023-05-12 15:25 | ANE.PACU2 ---
Inpatient post-anesthesia follow up: Airway intact: Yes Vital signs: Temperature 98.4 F Pulse Rate 73 Respiratory Rate 18 Blood Pressure 132/64 Pulse Oximetry 97 Oxygen Delivery Me thod Room Air Oxygen Flow Rate Fraction of Inspir ed Oxygen Hydration adequate: Yes Nausea and vomiting: No Pain level: 1 Mental status: Baseline
[2023-05-12] MEDS: oxyCODONE-APAP 10-325 mg Tablet PO (15:59)
[2023-05-12] MEDS: gabapentin 300 mg Capsule PO ×2 (15:59→20:46)
[2023-05-12] MEDS: lactated ringers 1,000 ML 90 ML IV (15:59)
[2023-05-12] MEDS: latanoprost 0.005% Op Soln 2.5 mL Btl 1 DROP EYE-BOTH (16:52)
[2023-05-12] MEDS: promethazine 25 mg Tablet 12.5 MG PO (16:52)
[2023-05-12] MEDS: docusate sodium 100 mg Capsule PO (16:52)
[2023-05-12] MEDS: ropinirole 2 mg Tablet 5 MG PO (20:45)
[2023-05-12] MEDS: oxyCODONE 5 mg IR Tab/Cap PO (20:46)
[2023-05-12] MEDS: HYDROmorphone 1 mg/mL INJ 1 mL 0.5 MG IVP (22:59)
[2023-05-12] MEDS: ondansetron 2 mg/ML SDV 2 mL 4 MG IVP (22:59)
[2023-05-13] VITALS (25 sets, daily range): BP systolic 93–176; BP diastolic 45–87; PULSE 61–75; RESP 13–23; TEMP 37–37.8; O2SAT 92–98
--- NOTE | 2023-05-13 | XR_ITS ---
WS: [id number] Cervical spine, C-arm fluoroscopy views, 05/12/2023 Clinical Data: OR pic, cervical revision Comparison: Cervical spine, 04/08/2023 Findings: Dr. Hung revised the anterior cervical disc fusion. Impression: Revision of anterior cervical disc fusion.
[2023-05-13] MEDS: oxyCODONE 5 mg IR Tab/Cap PO ×2 (02:53→12:32)
[2023-05-13] MEDS: ketorolac 30 mg/mL INJ IVP ×2 (02:54→15:34)
[2023-05-13] MEDS: lactated ringers 1,000 ML 90 ML IV ×2 (02:55→12:33)
[2023-05-13] MEDS: ceFAZolin 2,000 MG in sodium chloride 0.9% (plus) 50 ML 100 MG IV ×3 (03:04→12:31)
[2023-05-13] MEDS: levothyroxine 112 mcg Tablet PO (05:20)
--- NOTE | 2023-05-13 07:50 | PM.PN ---
Subjective Subjective: Patient sitting up eating breakfast. Pain controlled. Discussed with the surgery told her that we need to do a posterior fusion to provide stability for her spine. I do want her to leave the hospital to get this stabilized. The bone quality anteriorly was poor the grafts were loose not fused at all. At this point need to stabilize her posteriorly to provide stability. I had an open and honest discussion with the patient about the risks, benefits and alternatives to both surgical and nonsurgical treatment. The patient verbalized understanding of the inherent unpredictability associated with surgery. Risk of surgery were discussed including, but not limited to, infection, bleeding, temporary and permanent nerve damage, continued pain, stiffness, incomplete healing, need for revision surgery, blood clot and other complications. The patient verbalized understanding that there is spine is elective in nature and if they find any of these risks to be unacceptable then they should choose not to have the surgery. The patient verbalized understanding of these risks and elected to proceed with the surgery. Vitals/I&O/Wt Last Vital Signs Temp 98.6 F 05/13/23 07:41 Pulse 62 05/13/23 07:41 Resp 17 05/13/23 07:41 BP 97/61 05/13/23 07:41 Pulse Ox 94 05/13/23 07:41 O2 Del Method Room Air 05/13/23 07:41 05/12/23 05/13/23 05/13/23 22:59 06:59 14:59 Intake Total 230 / 2029 1154 / 3184 Output Total 20 / 70 20 / 90 Balance 210 / 1960 1134 / 3094 Weight last 48 hrs Weight 119 lb Weight 119 lb Weight 119 lb Physical Exam Narrative: Numbness and tingling she was having before is improved. A&P Assessment and plan (1) Status post cervical spinal fusion: Patient is postop day #1 anterior fusion. Plan is to go tomorrow and do a posterior fusion to provide stability. Attestations Medical Necessity Statement*: Unstable cervical spine Coding Level of Care Code Acute Code for Chg Fwd Diagnoses Status post cervical spinal fusion Z98.1
[2023-05-13] MEDS: promethazine 25 mg Tablet 12.5 MG PO ×2 (08:55→18:00)
[2023-05-13] MEDS: folic acid 1 mg Tablet PO (08:56)
[2023-05-13] MEDS: predniSONE 10 mg Tablet 5 MG PO (08:56)
[2023-05-13] MEDS: gabapentin 300 mg Capsule PO ×2 (08:56→15:34)
[2023-05-13] MEDS: docusate sodium 100 mg Capsule PO ×2 (08:56→18:00)
[2023-05-13] MEDS: ropinirole 2 mg Tablet 5 MG PO ×2 (08:56→15:34)
[2023-05-13] MEDS: HYDROmorphone 1 mg/mL INJ 1 mL 0.5 MG IVP ×2 (08:58→13:50)
[2023-05-13] MEDS: diazePAM 5 mg Tablet PO (09:07)
--- NOTE | 2023-05-13 10:15 | MR_ITS ---
WS: [id number] MRI CERVICAL SPINE NONCONTRAST TECHNIQUE: Sagittal T1, T2 and STIR imaging. Axial T2, gradient, and fiesta imaging. CLINICAL INFORMATION: post surgical COMPARISON: CT 04/22/2023 and 05/12/2023 FINDINGS: Interval revision of the previously described anterior fusion described on the 04/22/2023 CT. Recent postoperative changes anterior fusion C3-C5 with interbody fusion grafts at C3-C4 C4-C5 C5-C6 and C6- C7. Hardware better evaluated and described on the recent CT from yesterday. Cord signal appears norm al. No visualized epidural hematoma or drainable fluid collection. Postoperative changes in the RIGHT anterior neck. Fluid in the posterior nasopharynx and hypopharynx. Mild residual central canal steno sis C3-C4 C4-C5 and C5-C6. Small shallow disc protrusions in the upper thoracic spine at T1-2 and T2-3. IMPRESSION: Susceptibly artifact from hardware degrades some images. 1. Recent postoperative changes interval revision of the previously described anterior fusion. Hardw are better evaluated on the CT from 05/12/2023. 2. Cord signal appears normal. No evidence of epidural hematoma. No evidence of drainable abscess or fluid collection. 3. Mild residual central canal stenosis C3-C5. 4. Postoperative prevertebral soft tissue edema from recent surgery. 5. No other new findings.
[2023-05-13] MEDS: latanoprost 0.005% Op Soln 2.5 mL Btl 1 DROP EYE-BOTH (18:00)
[2023-05-13] MEDS: HYDROmorphone 1 mg/mL INJ 1 mL IVP ×3 (18:01→21:51)
--- NOTE | 2023-05-13 19:42 | XRR_ITS ---
PROCEDURE INFORMATION: Exam: XR Chest Exam date and time: 05/13/2023 8:16 PM Age: 68 years old Clinical indication: Shortness of breath TECHNIQUE: Imaging protocol: Radiologic exam of the chest. Views: 1 view. COMPARISON: CR XR chest 1V portable [id number] 02/27/2023 7:45 PM FINDINGS: Lungs: Unremarkable. No consolidation. Pleural spaces: Unremarkable. No pleural effusion. No pneumothorax. Heart/Mediastinum: Unremarkable. No cardiomegaly. Bones/joints: Unremarkable. XR/XR chest 1V portable [id number] IMPRESSION: No acute findings.
--- NOTE | 2023-05-13 19:44 | ECG_ITS ---
[facility] Test Date: 2023-05-13 Pat Name: Tosha Perry Department: Room: 257 Gender: Female [employer] Supervisor: : 1955 Requested By: Bernard Ray Order Number: [id number] Mirela MD: Chava Mckinley M.D. 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 [id number]
--- NOTE | 2023-05-13 19:46 | USR_ITS ---
PROCEDURE INFORMATION: Exam: US Duplex Lower Extremity Veins, Bilateral Exam date and time: 05/13/2023 7:59 PM Age: 68 years old Clinical indication: Pain; Leg, lower; Right; Additional info: SOB TECHNIQUE: Imaging protocol: Real-time duplex ultrasound of the bilateral extremities with 2-D ayala scale, color Doppler flow and spectral waveform analysis including responses to compression and other maneuvers (when performed) with image documentation. Complete exam focused on the lower extremity veins. COMPARISON: CT hip RT wo con* [id number] 03/01/2023 9:59 AM FINDINGS: Right deep veins: Nonocclusive DVT seen within the mid and distal superficial femoral vein and popliteal vein. The common femoral, deep femoral, and visualized calf veins are patent. Left deep veins: Unremarkable. The common femoral, femoral, proximal profunda femoral and popliteal veins are patent without thrombus. Normal Doppler waveforms. Normal compressibility and/or augmentation response. Superficial veins: Bilateral saphenofemoral junctions are patent without thrombus. Soft tissues: Unremarkable. US/CV venous duplex [facility] [id number] IMPRESSION: Nonocclusive DVT within the mid and distal right superficial femoral vein and popliteal vein.
[2023-05-13 19:53] LABS: ABG PCO2 36.2 mmHg (35-45); ABG PH Result 7.43 (7.35-7.45); Alveolar-Arterial Oxygen Gradi 5.7 mmHg (5-10); Arterial Blood Gas Hematocrit 26.2 % (37-47); Base Excess ABG 0.1 mmol/L (-2.0-2.0); Blood Gas Allen Test Pos; Blood Gas Sample Site Radial, right; Blood Gas Sample Type Arterial; Carboxyhemoglobin 1.8 %THgb (0.4-20.1); HCO3 ABG 24.2 mmol/L (22-26); HGB O2 Sat 90.8 % (95-100); Ionized Calcium Level - ABG 1.2 mmol/L (1.1-1.4); Methemoglobin 0.9 % (0.4-1.5); Oxygen Saturation ABG 93.3; PO2 ABG 60.1 mmHg (80.0-100.0); PO2 FiO2 Ratio Arterial Blood 0; Potassium Level - ABG 3.7 mmol/L (3.5-5.0); Total Hemoglobin 8.5 g/dL (12-16)
--- NOTE | 2023-05-13 19:58 | PC.NURSE ---
Called report to SAMRA Cortez in ICU. zoning technician at bedside performing venous duplex.
[2023-05-13 20:08] LABS: Basophils % 0.4 %; Eosinophils % 0.6 %; Lymphocytes # 1.3 10^3/uL (0.8-4.8); Lymphocytes % 18.5 %; Mean Corpuscular HGB Conc 29.4 g/dL (30-55); Mean Corpuscular Hemoglobin 23.3 pg (27-33); Mean Corpuscular Volume 79.5 fl (85-98); Mean Platelet Volume 10.6 fL (7.4-10.4); Monocytes # 0.9 10^3/uL (0.2-0.9); Monocytes % 11.9 %; Neutrophils # 4.95 10^3/uL (1.8-7.7); Neutrophils % 68.3 %; Nucleated Red Blood Cells % 0 %; Platelet Count 267 10^3/cmm (157-399); Red Cell Distribution Width 17.9 % (12.1-15.1); White Blood Count 7.24 10^3/uL (3.29-11.43)
--- NOTE | 2023-05-13 20:21 | PC.NURSE ---
This nurse and SAMRA Clemente to bedside to perform bedside report at 1900. Tosha was sitting comfortably in bed, watching TV, and stated she had no complaints or concerns at the time. The patient was slightly hoarse but stated she had no trouble breathing. This nurse updated the whiteboard, ensured call light was in reach, and left the room with Chyna. At 1930 this nurse returned to Tosha's room to answer her call light. Tosha was throwing up repeatedly, gagging, and gasping for air. She stated multiple times that she felt like she couldn't breathe and that her throat was swelling. The emesis was rust colored in nature, then turning clear and frothy. Rapid response was called at 193. Vital signs were as follows: Spo2 94% on room air, systolic blood pressure 171 , RR 15(labored, gasping). Oxygen tubing and suction were set up in the room. Dr Ray arrived at bedside and gave verbal orders for 4mg zofran IVP now, 1mg dilaudid IVP now, NPO, stat chest xray, stat venous duplex, stat ekg, continuous pulse oximetry, stat labs, stat respiratory panel, 6mg decadron IVP Q24, Q4H breathing treatments, transfer to ICU.
[2023-05-13 20:24] LABS: Troponin(5th) Baseline 14 ng/L (0-10)
[2023-05-13 20:31] LABS: NT Pro B Type Natriuretic Pept 1075 pg/mL (0-125); Procalcitonin 0.06 ng/mL (0-0.5)
[2023-05-13] MEDS: dexamethasone 10 mg/mL INJ 6 MG IVP (20:34)
[2023-05-13] MEDS: pantoprazole 40 mg SDV IVP (20:34)
[2023-05-13 20:42] LABS: Alanine Aminotransferase < 5 U/L (0-33); Albumin Level 3.3 g/dL (3.5-5.2); Alkaline Phosphatase 104 U/L (35-105); Anion Gap 18.9 (5-19); Aspartate Amino Transferase 15 U/L (0-32); Blood Urea Nitrogen 12 mg/dL (8-23); Calcium 8.9 mg/dL (8.5-10.5); Carbon Dioxide 20 mmol/L (22-29); Chloride 103 mmol/L (98-107); Creatine Phosphokinase 40 U/L (26-192); Globulin 3.6 g/dL (1.3-4.6); Glucose 108 mg/dL (65-115); Magnesium 1.7 mg/dL (1.7-2.3); Osmolality Calculated 286 mOsm/kg (285-295); Potassium 3.9 mmol/L (3.5-5.1); Sodium 138 mmol/L (136-145); Total Bilirubin 0.2 mg/dL (0.15-1.2); Total Protein 6.9 g/dL (6.6-8.7)
--- NOTE | 2023-05-13 20:53 | CTR_ITS ---
PROCEDURE INFORMATION: Exam: CTA Chest With Contrast Exam date and time: 05/13/2023 10:00 PM Age: 68 years old Clinical indication: Shortness of breath; Additional info: SOB TECHNIQUE: Imaging protocol: Computed tomographic angiography of the chest with contrast. Exam focused on the arteries. 3D rendering (Not supervised by radiologist): MIP and/or 3D reconstructed images were created by the technologist. Radiation optimization: All CT scans at this facility use at least one of these dose optimization techniques: automated exposure control; mA and/or kV adjustment per patient size (includes targeted exams where dose is matched to clinical indication); or iterative reconstruction. Contrast material: OMNI 350; Contrast volume: 100 ml; Contrast route: INTRAVENOUS (IV); COMPARISON: CT ang ches abdpe [id number] 11/27/2022 8:17 AM RADIATION DOSE METRICS: Total DLP (mGy-cm): 411.72 FINDINGS: Pulmonary arteries: Normal. No pulmonary emboli. Aorta: No aortic aneurysm. No aortic dissection. Lungs: Curvilinear atelectasis or scarring at the lung bases. No consolidation. No masses. Pleural spaces: Unremarkable. No pneumothorax. No pleural effusion. Heart: Unremarkable. No cardiomegaly. No pericardial effusion. Lymph nodes: Unremarkable. No enlarged lymph nodes. Bones/joints: Unremarkable. No acute fracture. Soft tissues: Unremarkable. CT/CT angio chest PE protcl [id number] IMPRESSION: Negative for pulmonary embolism. No acute findings.
--- NOTE | 2023-05-13 20:53 | CTR_ITS ---
PROCEDURE INFORMATION: Exam: CT Neck Without Contrast Exam date and time: 05/13/2023 10:04 PM Age: 68 years old Clinical indication: Other: Swelling in neck TECHNIQUE: Imaging protocol: Computed tomography of the neck without contrast. Radiation optimization: All CT scans at this facility use at least one of these dose optimization techniques: automated exposure control; mA and/or kV adjustment per patient size (includes targeted exams where dose is matched to clinical indication); or iterative reconstruction. COMPARISON: MR cervical spin wo con* [id number] 05/13/2023 11:01 AM RADIATION DOSE METRICS: Total DLP (mGy-cm): 164.27 FINDINGS: Pharynx: Unremarkable. No significant tonsillar enlargement. Larynx: Unremarkable. Epiglottis is normal. Prevertebral and retropharyngeal spaces: Unremarkable. Salivary glands: Normal. Glands are normal in size. Thyroid: Normal. No enlarged or calcified nodules. Lymph nodes: Unremarkable. No lymphadenopathy. Trachea: Visualized trachea is unremarkable. Lungs: Unremarkable as visualized. Bones/joints: There is a loculated fluid collection extending along the prevertebral space extending from C3 through C7 measuring at least 7.2 x 1.9 x 3.7 cm concerning for abscess until proven otherwise. This has a enhancing thickened rim. There is bony resorption of the central inferior endplate of C3, C4 and central superior endplate of C5 concerning for osteomyelitis. Postsurgical changes along the anterior neck from recent anterior fusion C3-C4, C4-C5 and disc replacements at C5-C6 and C6-C7. Soft tissues: Unremarkable. No significant soft tissue swelling. CT/CT neck wo con [id number] IMPRESSION: 1. There is a loculated fluid collection with a thickened enhancing rim extending along the prevertebral space extending from C3 through C7 measuring at least 7.2 x 1.9 x 3.7 cm concerning for abscess until proven otherwise. 2. There is bony resorption of the central inferior endplate of C3, C4 and central superior endplate of C5 concerning for osteomyelitis. 3. Postsurgical changes along the anterior neck from recent anterior fusion C3-C4, C4-C5 and disc replacements at C5-C6 and C6-C7.
[2023-05-13] MEDS: ipratropium-albuterol 3 mL Neb INHALATION (21:06)
--- NOTE | 2023-05-13 21:06 | PC.NURSE ---
Patient transferred to ICU10 at 2054 by this nurse and LUCERO Sterling. SAMRA Cortez present at bedside, all questions answered. Attempted to contact Juan Macdonald to give update per patient request, left voicemail.
[2023-05-13] MEDS: scopolamine 1.5 Patch 1 PATCH TRANSDERMA (21:37)
--- NOTE | 2023-05-13 21:38 | PC.NURSE ---
Arrival to ICU 10: Pt arrived to ICU @2047. 2 episodes of black vomiting since arrival. 1 episode of frothy red tinged sputum. Dr. Ray made aware. New order to hold off on starting Heparin drip. Trip to CT delayed by need for IV access. Pt is NPO, no PO medications given at this time, Dr. Ray aware. Suction set up at bedside. Pt reporting 7/10 pain in her neck. Voice is horse, swelling in neck noted.
--- NOTE | 2023-05-13 22:02 | P.CONIM_ITS ---
Providers/Reason For Consult 2 Consulting Physician/Specialty*: orthopedic Reason for Consult*: Rapid response, hematemesis, shortness of breath, right lower extremity DVT, cervical hematoma Attending Physician: Ryan Hung DO Primary Care Provider: Diana Garcia History of Present Illness History of Present Illness Tosha Perry is a 68 year old female history of GI bleed, history of gastric ulcer, history of DVT, history of hypothyroidism, who presents to [facility] status post cervical spinal fusion, postop day 1, rapid response was called at roughly 7:20 PM, as patient was acutely short of breath, with hematemesis. During my examination, patient was alert oriented x 3, following all commands, normotensive, on room air, no active hemoptysis, she saturating in the high 90s on room air, she tells me that she feels very nauseous, she feels like she needs to vomit, she was complaining of feeling as if her neck was swollen, trouble catching her breath, no chest pain, no palpitations -ABG pH 7.43, pCO2 36.2, pO2 60.1 -Chest x-ray no focal consolidation, BNP elevated at thousand, patient did not appear to be fluid overloaded, lactic within normal limits -Patient was moved down to the ICU -Venous ultrasound was positive for right lower extremity DVT she has had DVT in the past, plan was to start anticoagulation until the CT of her neck and chest came back, as she has a history of GI bleeds, and she in the ICU continued to have episodes of hematemesis -CT angiogram of the chest was negative for PE -Spoke to Kamille about CT of the neck -Nurses advises me that patient's cervical drain accidentally got removed CT/CT neck wo con [id number] IMPRESSION: 1. There is a loculated fluid collection with a thickened enhancing rim extending along the prevertebral space extending from C3 through C7 measuring at least 7.2 x 1.9 x 3.7 cm concerning for abscess until proven otherwise. 2. There is bony resorption of the central inferior endplate of C3, C4 and central superior endplate of C5 concerning for osteomyelitis. 3. Postsurgical changes along the anterior neck from recent anterior fusion C3-C4, C4-C5 and disc replacements at C5-C6 and C6-C7. -Spoke spoke to V rad's, there were concerns for thick rim enhancement, patient had surgery about 24 hours ago, differential includes seroma versus hematoma versus abscess ? Will continue to monitor surgical site, placed on broad-spectrum antibiotic therapy vancomycin, Zosyn, ? Patient has a DVT of the right lower extremities CT angiogram is negative for PE however as there is concern for hematoma of the cervical spine and worried about what enhancement and enlargement of the hematoma if indeed that is what it proves to be, compromising her airway, so we will hold off on anticoagulation for now -Continue to monitor respiratory status closely in ICU, low threshold for intubation if she develops worsening respiratory failure neck pain ? As patient continues to have episodes of hematemesis, scant hemoptysis, nurses tell me that some of the hemoptysis is black and tarry this could be a GI bleed, given her hemoglobin down to 7.7, Protonix, Carafate, monitor hemoglobin closely, hold off on any blood thinners, monitor respiratory status closely, monitor hemoglobin closely Review of Systems 2 Const: Denies: fever(s) or chills Card: Denies: chest pain Resp: Reports: dyspnea GI: Reports: abdominal pain : Denies: flank pain Musc: Reports: neck pain Medications/Allergies Home Medications Medication Instructions Recorded Confirmed Last Taken Type latanoprost 0.005 % eye drops 1 drp ophthalmic (eye) QPM 06/17/22 05/13/23 05/10/23 History levothyroxine 112 mcg tablet 112 mcg PO QAM low thyroid #90 tabs 10/15/22 05/13/23 05/12/23 02:00 Rx gabapentin 300 mg capsule 300 mg PO TID chronic pain #90 caps 10/22/22 05/13/23 05/11/23 Rx Bone growth stimulator #1 ea 01/22/23 05/13/23 Unknown Rx prednisone 10 mg tablet 5 mg PO DAILY 02/03/23 05/11/23 04/21/23 History Bone growth stimulator #1 ea 02/05/23 05/13/23 Unknown Rx furosemide 40 mg tablet 40 mg PO DAILY PRN Edema 02/08/23 05/13/23 05/05/23 History albuterol sulfate 90 mcg/actuation 1 inh inhalation Q6H PRN shortness 03/01/23 05/13/23 05/11/23 History aerosol inhaler (Ventolin HFA) of breath or wheezing ropinirole 5 mg tablet 5 mg PO TID 03/01/23 05/13/23 05/12/23 02:00 History baclofen 10 mg tablet 10 mg PO BID PRN Muscle Spasm 30 03/10/23 05/13/23 05/12/23 02:00 Rx days #30 tabs diazepam 5 mg tablet (Valium) 5 mg PO BID PRN anxiety #14 tabs 04/27/23 05/13/23 05/11/23 Rx folic acid 1 mg tablet 1 mg PO DAILY #90 tabs 05/04/23 05/13/23 05/11/23 Rx insulin syringes (disposable) 1 mL #25 ea 05/04/23 05/13/23 Unknown Rx methotrexate sodium 25 mg/mL 20 mg (0.8 mL) SUBCUT .Q7days #10 05/04/23 05/11/23 Unknown Rx injection solution mL oxycodone 5 mg tablet 10 mg (2 x 5 mg) PO Q6H PRN pain 7 05/04/23 05/13/23 05/12/23 02:00 Rx days #40 tabs promethazine 12.5 mg tablet 12.5 mg PO BID 05/04/23 05/13/23 05/11/23 History dexlansoprazole 30 mg See Rx Instructions .Route 05/13/23 Unknown Rx capsule,biphase delayed release .COMPLEX #90 caps ondansetron 8 mg disintegrating 8 mg PO Q8H PRN nausea/vomiting 05/13/23 05/13/23 Unknown History tablet Allergies Allergy/AdvReac Type Severity Reaction Status Date / Time tizanidine Allergy Unknown Unknown Verified 05/12/23 09:17 amitriptyline Allergy ADR-Agitate Verified 05/12/23 09:17 d diphenhydramine Allergy ADR-Agitate Verified 05/12/23 09:17 [From Benadryl] d prochlorperazine Allergy Unknown Verified 05/12/23 09:17 [From Compazine] leflunomide AdvReac Intermediate GI adverse Verified 05/12/23 09:17 reactions sulfasalazine AdvReac Intermediate ADR-Nausea Verified 05/12/23 09:17 and acid reflux Current Medications Generic Name Dose Route Start Last Admin Trade Name Freq PRN Reason Stop Dose Admin Albuterol/Ipratropium 3 ml 05/13/23 20:00 05/13/23 21:06 Ipratropium-Albuterol 3 Ml Neb INHALATION 3 ml Q4H.RESPIRATORY KIM Administration Dexamethasone 6 mg 05/13/23 20:00 05/13/23 20:34 Dexamethasone 10 Mg/Ml Inj IVP 6 mg Q24H KIM Administration Diazepam 5 mg 05/12/23 14:49 05/13/23 09:07 Diazepam 5 Mg Tablet PO 5 mg BID PRN Administration anxiety Docusate Sodium 100 mg 05/12/23 18:00 05/13/23 18:00 Docusate Sodium 100 Mg Capsule PO 100 mg BID KIM Administration Folic Acid 1 mg 05/13/23 09:00 05/13/23 08:56 Folic Acid 1 Mg Tablet PO 1 mg DAILY KIM Administration Gabapentin 300 mg 05/12/23 15:00 05/13/23 21:21 Gabapentin 300 Mg Capsule PO Not Given TID KIM Hydromorphone HCl 1 mg 05/13/23 17:04 05/13/23 21:51 Hydromorphone 1 Mg/Ml Inj 1 Ml IVP 1 mg Q4H PRN Administration PAIN Lactated Ringer's 1,000 mls @ 90 mls/hr 05/12/23 15:00 05/13/23 21:17 Lactated Ringers IV 90 mls/hr .Q11H7M KIM Infusion Latanoprost 1 drop 05/12/23 18:00 05/13/23 18:00 Latanoprost 0.005% Op Soln 2.5 Ml Btl EYE-BOTH 1 drop QPM KIM Administration Levothyroxine Sodium 112 mcg 05/13/23 06:00 05/13/23 05:20 Levothyroxine 112 Mcg Tablet PO 112 mcg QAM KIM Administration Ondansetron HCl 4 mg 05/12/23 14:47 05/12/23 22:59 Ondansetron 2 Mg/Ml Sdv 2 Ml IVP 4 mg Q6H PRN Administration NAUSEA AND VOMITING Oxycodone HCl 5 - 10 mg 05/12/23 15:49 05/13/23 12:32 Oxycodone 5 Mg Ir Tab/Cap PO 10 mg Q6H PRN Administration MODERATE PAIN Pantoprazole Sodium 40 mg 05/13/23 20:00 05/13/23 20:34 Pantoprazole 40 Mg Sdv IVP 40 mg Q12H KIM Administration Prednisone 5 mg 05/13/23 09:00 05/13/23 08:56 Prednisone 10 Mg Tablet PO 5 mg DAILY KIM Administration Ropinirole HCl 5 mg 05/12/23 21:00 05/13/23 21:21 Ropinirole 2 Mg Tablet PO Not Given TID KIM Scopolamine 1 patch 05/13/23 21:30 05/13/23 21:37 Scopolamine 1.5 Patch TRANSDERMA 1 patch Q3D KIM Administration Sucralfate 1 gm 05/13/23 20:00 05/13/23 21:21 Sucralfate 1 Gm/10 Ml Oral Liq Udc PO Not Given Q6H KIM PFSH Acute 2 PFSH: Medical History Allergic rhinitis due to allergen RLS (restless legs syndrome) Substance or medication-induced sleep disorder, insomnia type Anxiety and depression High risk medication use Seropositive rheumatoid arthritis of multiple sites Extrapyramidal and movement disorder CKD (chronic kidney disease) stage 3, GFR 30-59 ml/min Lung nodule, solitary Prediabetes Hyperlipidemia Iron deficiency anemia Hypothyroidism Surgical History History of cholecystectomy History of appendectomy History of delivery History of hysterectomy with bilateral oophorectomy History of ankle surgery left Previous back surgery Social History Smoking and tobacco/nicotine status: former use of tobacco/nicotine Quit status (tobacco/nicotine): has quit using Year quit tobacco: 2009 Former quit date comment: Smoked for 9 months Alcohol intake: current Alcohol intake frequency: holidays/special occasions only Substance/Drug Use: never Vitals/I&O/Wt Last Vital Signs Temp 100.0 F H 05/13/23 16:24 Pulse 72 05/13/23 21:37 Resp 15 05/13/23 21:51 BP 116/80 05/13/23 21:37 Pulse Ox 93 05/13/23 21:51 O2 Del Method Room Air 05/13/23 21:11 05/13/23 05/13/23 05/13/23 06:59 14:59 22:59 Intake Total 1154 / 3184 1087 / 1087 1025 / 2112 Output Total Balance 1134 / 3094 1087 / 1087 1025 / 2112 Weight last 48 hrs Weight 53.977 kg Weight 53.977 kg Weight 53.977 kg Physical Exam 2 Const: COMMON NORMALS: no acute distress and patient oriented x3 Lymph: LYMPHATIC: no lymphadenopathy noted Resp: COMMON NORMALS: normal respiratory effort, No retractions, No use of accessory muscles and clear to auscultation bilaterally AUSCULTATION: clear to auscultation bilaterally Cardio: COMMON NORMALS: regular rate, regular rhythm, S1 normal heart sound present and S2 normal heart sound present RATE: regular rate RHYTHM: r egular rhythm HEART SOUNDS: S1 normal heart sound present and S2 normal heart sound present GI: COMMON NORMALS: Normal to inspection, nondistended, normoactive bowel sounds present and non-tender Extremity: COMMON NORMALS: no calf tenderness and no pedal edema Neuro: COMMON NORMALS: patient oriented x3, CN's II-XII intact bilaterally and moves all extremities Psych: COMMON NORMALS: mental status grossly normal Data 05/13/23 23:03 05/13/23 19:50 A&P Assessment and plan (1) Hypothyroidism: (2) Hyperlipidemia: (3) CKD (chronic kidney disease) stage 3, GFR 30-59 ml/min: (4) GI bleed: (5) Cervical adenopathy: (6) Hematoma complicating a procedure: (7) Acute anemia: (8) Pneumonia: Plan Upper GI bleed -History of upper GI bleed, EGD in February 2023, showed an antral gastric ulcer, nonbleeding -With hematemesis -Hemoglobin down to 7.7 -Here patient is not receiving any blood thinners, did receive Toradol, Plan -Given persistent episodes of hematemesis we will monitor in the ICU -Monitor hemoglobin every 4 hours -Transfuse if hemoglobin less than 4 -Protonix 40 IV twice daily, Carafate 1 g every 6 hours -Will keep n.p.o. -IV fluids Intractable nausea and vomiting -Please scopolamine patch -Reglan, Zofran, promethazine Acute anemia -As above Shortness of breath -Likely secondary to aspiration with upper GI bleed -CT angiogram negative for PE -Does have elevated BNP no significant radiographic evidence of pulmonary edema -Nonetheless we will place on Zosyn Right lower extremity DVT US/[place] [id number] IMPRESSION: Nonocclusive DVT within the mid and distal right superficial femoral vein and popliteal vein. -Has a history of DVT -Cannot anticoagulate given acute anemia, concerns for GI bleed, and cervical hematoma -Will will need to discuss with Dr. Jonas or cardiology in the morning about IVC filter placement Neck pain, neck swelling, shortness of breath -Patient is status post Procedure: 1. revision Anterior diskectomy C3/4 2. revision Anterior discectomy C4/5 3. Insertion of cage C3/4 4. Insertion of Cage C4/5 5. Instrumentation from C3-5 6. Use of allograft 7. Removal of plate from C3-C7 -Postop day 2 CT/CT neck wo con [id number] IMPRESSION: 1. There is a loculated fluid collection with a thickened enhancing rim extending along the prevertebral space extending from C3 through C7 measuring at least 7.2 x 1.9 x 3.7 cm concerning for abscess until proven otherwise. 2. There is bony resorption of the central inferior endplate of C3, C4 and central superior endplate of C5 concerning for osteomyelitis. -Spoke to Tad whitman, concerns for abscess versus seroma versus hematoma -CRP 81, Pro-Juan Carlos within normal limits -Spoke to Dr. Hnug, Plan -Monitor respiratory status closely in ICU, low threshold for intubation -For now hold off on anticoagulant therapy due to concerns of hematoma expansion of hematoma and compromise Dacian of airway -Monitor hemoglobin, INR -For now continue vancomycin, Zosyn -Keep n.p.o., for possible surgical invention in the morning Coding Level of Care Code Critical Care >/= 30 minutes Critical care time (in minutes): 45 The high probability of a clinically significant, sudden or life threatening deterioration, as referenced in this documentation, required my full and direct attention, intervention and personal management. The critical care time shown is in addition to time spent performing any reported separately billable procedures and includes the following: [x] Data and vital sign review and interpretation [x ] Patient assessment, examination and intervention [x] Medication orders and management [x] Patient/Family updates as able [x] Care Coordination and Documentation. Diagnoses Hypothyroidism E03.9 Hyperlipidemia E78.5 CKD (chronic kidney disease) stage 3, GFR 30-59 ml/min N18.30 GI bleed K92.2 Cervical adenopathy R59.0 Hematoma complicating a procedure Acute anemia D64.9 Pneumonia J18.9
[2023-05-13] MEDS: iohexol 350 mg/mL 500 mL Btl (per mL) IV (22:11)
[2023-05-13 22:19] LABS: INR 1.18 (0.8-1.2)
[2023-05-13 22:22] LABS: D Dimer 2.34 ug/mLFEU (0-0.59)
[2023-05-13 22:27] LABS: Troponin 5 2HR 12.36 ng/L (0-10); Troponin 5 2HR Delta -1.64 ABS# (0-10)
[2023-05-13 22:29] LABS: Lactic Sepsis W/Reflex 1.4 mmol/L (0.5-2.2)
[2023-05-13 23:32] LABS: Adenovirus Not Detected (NOT DETECT); Chlamydia Pneumoniae Not Detected (NOT DETECT); Coronavirus 229E,HKU1,NL63,OC4 Not Detected (NOT DETECT); Human Metapneumovirus Not Detected (NOT DETECT); Human Rhinovirus/Enterovirus Not Detected (NOT DETECT); Influenza A Not Detected (NOT DETECT); Influenza A H1 Not Detected (NOT DETECT); Influenza A H1-2009 Not Detected (NOT DETECT); Influenza A H3 Not Detected (NOT DETECT); Influenza B Not Detected (NOT DETECT); Mycoplasma Pneumoniae Not Detected (NOT DETECT); Parainfluenza Virus Type 1 Not Detected (NOT DETECT); Parainfluenza Virus Type 2 Not Detected (NOT DETECT); Parainfluenza Virus Type 3 Not Detected (NOT DETECT); Parainfluenza Virus Type 4 Not Detected (NOT DETECT); Respiratory Syncytial Virus A Not Detected (NOT DETECT); Respiratory Syncytial Virus B Not Detected (NOT DETECT); SARS-COV-2 Not Detected (NOT DETECT)
[2023-05-14] VITALS (55 sets, daily range): BP systolic 93–159; BP diastolic 56–117; PULSE 56–102; RESP 10–97; TEMP 36.3–36.6; O2SAT 90–100
[2023-05-14] MEDS: lactated ringers 1,000 ML 90 ML IV (00:07)
[2023-05-14] MEDS: vancomycin 1,000 MG in sodium chloride 0.9% 250 ML 250 MG IV ×2 (00:12→23:13)
[2023-05-14] MEDS: piperacillin-tazobactam 3.375 GM in sodium chloride 0.9% (plus) 50 ML IV ×3 (01:19→18:21)
[2023-05-14] MEDS: ipratropium-albuterol 3 mL Neb INHALATION ×2 (01:44→20:20)
[2023-05-14] MEDS: HYDROmorphone 1 mg/mL INJ 1 mL IVP ×7 (02:12→22:00)
--- NOTE | 2023-05-14 02:17 | PC.NURSE ---
Addendum entered by Paige Goodson RN 05/14/23 02:59: Crackles in lungs noted. Called Dr. Ray @1806. New order to place kim catheter and give 40mg IVP Lasix ONCE NOW. Original Note: Hoarse Voice: Pt hit call light and reported 10/10 neck pain. Pts voice is noted to be significantly more hoarse that earlier in the shift and seems slightly short of breath. Dr. Ray notified @0214. New order to continue to monitor respiratory status and to D/C IV fluids.
[2023-05-14 02:29] LABS: Basophils % 0.1 %; Hematocrit 24.9 % (36-47); Lymphocytes # 0.7 10^3/uL (0.8-4.8); Lymphocytes % 9.9 %; Mean Corpuscular HGB Conc 30.1 g/dL (30-55); Mean Corpuscular Hemoglobin 23.7 pg (27-33); Mean Corpuscular Volume 78.8 fl (85-98); Mean Platelet Volume 10.2 fL (7.4-10.4); Monocytes # 0.2 10^3/uL (0.2-0.9); Monocytes % 2.4 %; Neutrophils % 87.3 %; Nucleated Red Blood Cells % 0 %; Platelet Count 244 10^3/cmm (157-399); Red Blood Count 3.16 10^6/uL (3.85-5.65); White Blood Count 6.99 10^3/uL (3.29-11.43)
[2023-05-14 02:44] LABS: Troponin 5 6HR 10.91 ng/L (0-10)
[2023-05-14 02:45] LABS: Lactate (Lactic Acid level) 0.9 mmol/L (0.5-2.2); Troponin 5 6HR Delta -3.09 ng/L (0-12)
[2023-05-14 02:48] LABS: Alanine Aminotransferase < 5 U/L (0-33); Alkaline Phosphatase 93 U/L (35-105); Aspartate Amino Transferase 12 U/L (0-32); Blood Urea Nitrogen 18 mg/dL (8-23); Calcium 8.4 mg/dL (8.5-10.5); Carbon Dioxide 19 mmol/L (22-29); Chloride 107 mmol/L (98-107); Globulin 2.5 g/dL (1.3-4.6); Glucose 156 mg/dL (65-115); Magnesium 1.6 mg/dL (1.7-2.3); Osmolality Calculated 289 mOsm/kg (285-295); Phosphorus 2.9 mg/dL (2.5-4.5); Sodium 137 mmol/L (136-145); Total Bilirubin 0.2 mg/dL (0.15-1.2); Total Protein 5.5 g/dL (6.6-8.7)
[2023-05-14 03:04] LABS: Add Urine Microscopic? NO; Charge for UA Resulting for Rev
[2023-05-14 03:05] LABS: Bilirubin Urine Neg (Negative); Blood Urine Neg (Negative); Glucose Urine UA Norm (Normal); Ketones Urine Negative (Negative); Leukocyte Esterase Urine Negative (Negative); Nitrate Urine Negative (Negative); Protein Urine Neg (Negative); Specific Gravity, Urine 1.005 (1.005-1.030); Urine Appearance Clear (CLEAR); Urine Color Yellow (Yellow); Urobilinogen Urine Neg (Negative); pH Urine 7 (5-7)
[2023-05-14] MEDS: FUROsemide 10 mg/mL SDV 4mL 40 MG IVP (03:14)
--- NOTE | 2023-05-14 04:06 | PC.NURSE ---
Dr. aRy messaged to obtain ICU orders. Orders not received as of this time 0400
[2023-05-14 05:40] LABS: Creatine Phosphokinase 32 U/L (26-192); NT Pro B Type Natriuretic Pept 1124 pg/mL (0-125)
--- NOTE | 2023-05-14 06:30 | PC.NURSE ---
Dr. Hung at bedside to see pt, new order to change Dilaudid from Q4H to Q2H.
[2023-05-14] MEDS: pantoprazole 40 mg SDV IVP ×2 (07:18→19:56)
[2023-05-14 07:19] LABS: Hematocrit 26.2 % (36-47)
--- NOTE | 2023-05-14 07:26 | P.CONIM_ITS ---
Providers/Reason For Consult 2 Consulting Physician/Specialty*: Chava Mckinley MD/ Interventional cardiology Reason for Consult*: IVC filter placement/ cardiac clearance for spine surgery Requesting Physician: Dr Ray Attending Physician: Ryan Hung DO Primary Care Provider: Diana Garcia History of Present Illness History of Present Illness Tosha Perry is a 68 year old female with past medical history of DVT intolerant to anticoagulation, hypothyroidism who had spine surgery performed yesterday. She had blood loss and possible hematoma. She was found to have right lower extremity DVT and SFV and popliteal vein. As anticoagulation could not be given, we were consulted for IVC filter placement. Yesterday she also had chest discomfort. Troponin levels are not elevated. Primary team has asked for cardiac clearance for spine surgery. EKG not showing acute ST-T wave changes. Review of Systems 2 Const: Denies: fever(s) or chills Card: Denies: chest pain Resp: Reports: dyspnea GI: Reports: abdominal pain : Denies: flank pain Musc: Reports: neck pain Medications/Allergies Home Medications Medication Instructions Recorded Confirmed Last Taken Type latanoprost 0.005 % eye drops 1 drp ophthalmic (eye) QPM 06/17/22 05/13/23 05/10/23 History levothyroxine 112 mcg tablet 112 mcg PO QAM low thyroid #90 tabs 10/15/22 05/13/23 05/12/23 02:00 Rx gabapentin 300 mg capsule 300 mg PO TID chronic pain #90 caps 10/22/22 05/13/23 05/11/23 Rx Bone growth stimulator #1 ea 01/22/23 05/13/23 Unknown Rx prednisone 10 mg tablet 5 mg PO DAILY 02/03/23 05/11/23 04/21/23 History Bone growth stimulator #1 ea 02/05/23 05/13/23 Unknown Rx furosemide 40 mg tablet 40 mg PO DAILY PRN Edema 02/08/23 05/13/23 05/05/23 History albuterol sulfate 90 mcg/actuation 1 inh inhalation Q6H PRN shortness 03/01/23 05/13/23 05/11/23 History aerosol inhaler (Ventolin HFA) of breath or wheezing ropinirole 5 mg tablet 5 mg PO TID 03/01/23 05/13/23 05/12/23 02:00 History baclofen 10 mg tablet 10 mg PO BID PRN Muscle Spasm 30 03/10/23 05/13/23 05/12/23 02:00 Rx days #30 tabs diazepam 5 mg tablet (Valium) 5 mg PO BID PRN anxiety #14 tabs 04/27/23 05/13/23 05/11/23 Rx folic acid 1 mg tablet 1 mg PO DAILY #90 tabs 05/04/23 05/13/23 05/11/23 Rx insulin syringes (disposable) 1 mL #25 ea 05/04/23 05/13/23 Unknown Rx methotrexate sodium 25 mg/mL 20 mg (0.8 mL) SUBCUT .Q7days #10 05/04/23 05/11/23 Unknown Rx injection solution mL oxycodone 5 mg tablet 10 mg (2 x 5 mg) PO Q6H PRN pain 7 05/04/23 05/13/23 05/12/23 02:00 Rx days #40 tabs promethazine 12.5 mg tablet 12.5 mg PO BID 05/04/23 05/13/23 05/11/23 History dexlansoprazole 30 mg See Rx Instructions .Route 05/13/23 Unknown Rx capsule,biphase delayed release .COMPLEX #90 caps ondansetron 8 mg disintegrating 8 mg PO Q8H PRN nausea/vomiting 05/13/23 05/13/23 Unknown History tablet Allergies Allergy/AdvReac Type Severity Reaction Status Date / Time tizanidine Allergy Unknown Unknown Verified 05/12/23 09:17 amitriptyline Allergy ADR-Agitate Verified 05/12/23 09:17 d diphenhydramine Allergy ADR-Agitate Verified 05/12/23 09:17 [From Benadryl] d prochlorperazine Allergy Unknown Verified 05/12/23 09:17 [From Compazine] sucralfate [From Carafate] Allergy ALGY-Hives Verified 05/14/23 20:40 leflunomide AdvReac Intermediate GI adverse Verified 05/12/23 09:17 reactions sulfasalazine AdvReac Intermediate ADR-Nausea Verified 05/12/23 09:17 and acid reflux Current Medications Generic Name Dose Route Start Last Admin Trade Name Freq PRN Reason Stop Dose Admin Albuterol/Ipratropium 3 ml 05/13/23 20:00 05/14/23 04:09 Ipratropium-Albuterol 3 Ml Neb INHALATION Not Given Q4H.RESPIRATORY KIM Dexamethasone 6 mg 05/13/23 20:00 05/13/23 20:34 Dexamethasone 10 Mg/Ml Inj IVP 6 mg Q24H KIM Administration Diazepam 5 mg 05/12/23 14:49 05/13/23 09:07 Diazepam 5 Mg Tablet PO 5 mg BID PRN Administration anxiety Docusate Sodium 100 mg 05/12/23 18:00 05/13/23 18:00 Docusate Sodium 100 Mg Capsule PO 100 mg BID KIM Administration Folic Acid 1 mg 05/13/23 09:00 05/13/23 08:56 Folic Acid 1 Mg Tablet PO 1 mg DAILY KIM Administration Gabapentin 300 mg 05/12/23 15:00 05/13/23 21:21 Gabapentin 300 Mg Capsule PO Not Given TID KIM Vancomycin HCl 1,000 mg/ 250 mls @ 250 mls/hr 05/13/23 23:45 05/14/23 01:12 Sodium Chloride IV Infused Q24H [facility] Infusion Piperacillin Sod/Tazobactam 50 mls @ 12.5 mls/hr 05/14/23 02:00 05/14/23 05:50 Sod 3.375 gm/ Sodium Chloride IV Infused Q8H [facility] Infusion Latanoprost 1 drop 05/12/23 18:00 05/13/23 18:00 Latanoprost 0.005% Op Soln 2.5 Ml Btl EYE-BOTH 1 drop QPM KIM Administration Levothyroxine Sodium 112 mcg 05/13/23 06:00 05/14/23 05:11 Levothyroxine 112 Mcg Tablet PO Not Given QAM [facility] Ondansetron HCl 4 mg 05/12/23 14:47 05/12/23 22:59 Ondansetron 2 Mg/Ml Sdv 2 Ml IVP 4 mg Q6H PRN Administration NAUSEA AND VOMITING Oxycodone HCl 5 - 10 mg 05/12/23 15:49 05/13/23 12:32 Oxycodone 5 Mg Ir Tab/Cap PO 10 mg Q6H PRN Administration MODERATE PAIN Pantoprazole Sodium 40 mg 05/13/23 20:00 05/13/23 20:34 Pantoprazole 40 Mg Sdv IVP 40 mg Q12H [facility] Administration Prednisone 5 mg 02/01/24 09:00 05/13/23 08:56 Prednisone 10 Mg Tablet PO 5 mg DAILY KIM Administration Ropinirole HCl 5 mg 05/12/23 21:00 05/13/23 21:21 Ropinirole 2 Mg Tablet PO Not Given TID KIM Scopolamine 1 patch 05/13/23 21:30 05/13/23 21:37 Scopolamine 1.5 Patch TRANSDERMA 1 patch Q3D KIM Administration Sucralfate 1 gm 05/13/23 20:00 05/14/23 01:01 Sucralfate 1 Gm/10 Ml Oral Liq Udc PO Not Given Q6H KIM PFSH Acute 2 PFSH: Medical History Allergic rhinitis due to allergen RLS (restless legs syndrome) Substance or medication-induced sleep disorder, insomnia type Anxiety and depression High risk medication use Seropositive rheumatoid arthritis of multiple sites Extrapyramidal and movement disorder CKD (chronic kidney disease) stage 3, GFR 30-59 ml/min Lung nodule, solitary Prediabetes Hyperlipidemia Iron deficiency anemia Hypothyroidism Surgical History History of cholecystectomy History of appendectomy History of delivery History of hysterectomy with bilateral oophorectomy History of ankle surgery left Previous back surgery Social History Smoking and tobacco/nicotine status: former use of tobacco/nicotine Quit status (tobacco/nicotine): has quit using Year quit tobacco: 2009 Former quit date comment: Smoked for 9 months Alcohol intake: current Alcohol intake frequency: holidays/special occasions only Substance/Drug Use: never Vitals/I&O/Wt Last Vital Signs Temp 97.8 F 05/14/23 04:30 Pulse 64 05/14/23 06:00 Resp 16 05/14/23 06:00 BP 109/58 05/14/23 06:00 Pulse Ox 94 05/14/23 06:00 O2 Del Method Room Air 05/14/23 06:00 05/13/23 05/14/23 05/14/23 22:59 06:59 14:59 Intake Total 1026 / 2113 714 / 2827 Output Total 2400 / 2400 Balance 1026 / 2113 -1686 / 427 Weight last 48 hrs Weight 131 lb 1.6 oz Weight 132 lb 3.2 oz Weight 119 lb Weight 119 lb Weight 119 lb Physical Exam 2 Narrative: GENERAL: Patient is alert[] NECK: post op [] HEENT: No cyanosis. No icterus. No pallor. [] HEART: Regular S1 and S2. No murmur, rub or gallop. [] LUNGS: Clear to auscultate bilaterally. [] CENTRAL NERVOUS SYSTEM: Grossly nonfocal. [] EXTREMITIES: Lower extremities with no edema Urinary Catheter Management: Brandt: Cath Placed During This Visit: yes Reason for Continuing Indwelling Catheter: Accurate Measurement of Urinary Output in Critically Ill Patients Urinary Catheter Date of Insertion: 05/14/23 Urinary Catheter Time of Insertion: 02:58 Data 05/15/23 04:00 05/15/23 04:00 A&P Assessment and plan (1) DVT (deep venous thrombosis): (2) Pre-operative clearance: Plan Patient cannot be anticoagulated. Has a DVT in SFV and popliteal vein. Will proceed with IVC filter placement Will obtain echocardiogram. If EF is normal, with no active chest pain, normal troponin elevation and EKG without significant ischemic changes, she will be at acceptable cardiac risk to proceed with the surgery. Thank you for involving us with care of this patient. Will continue to follow. Please call with questions. Consult Attestations 2 Medical Necessity Statement: Care expected to cross 2 midnights. Coding Level of Care Code [facility] (deep [facility] thrombosis) I82.409 Pre-operative clearance Z01.818
--- NOTE | 2023-05-14 08:45 | USCV_ITS ---
Tosha Perry Age: 68 Gender: F : 1955 Exam Date: 05/14/2023 10:22 Ordering Phys: Bernard Ray MD Technologist: CT Exam Location: [facility] [place]_ Indication: cp, pre op BP: 130 / 79 HR: 61 Rhythm: Sinus Technical Quality: Adequate MEASUREMENTS (Male / Female) Normal Values 2D ECHO LVOT Diameter 2.0 cm LV Ejection Fraction MOD 2C 53.0 % LV Ejection Fraction 2C AL 52.6 % LA Diameter 4.2 cm Aorta at Sinotubular Diameter 2.5 cm IVC Diameter 1.3 cm M-MODE Aortic Annulus Diameter 3.4 cm LA Ao Ratio MM 1.4 MV E Point Septal Separation 0.6 cm DOPPLER AV Peak Velocity 166.0 cm/s LVOT Peak Velocity 94.0 cm/s AV Area Cont Eq vti 1.9 cm squared AV Area Cont Eq pk 1.9 cm squared MV Peak Velocity 89.0 cm/s MV E' Velocity 7.0 cm/s TR Peak Velocity 89.0 cm/s TR Peak Gradient 3.2 mmHg TV Peak E Velocity 77.0 cm/s Right Atrial Pressure 3.0 mmHg Pulmonary Artery Systolic Pressu 6.2 mmHg PV Peak Velocity 89.0 cm/s FINDINGS Left Ventricle Left ventricle is normal in size. LV systolic function is normal with EF 55 to 60%. No regional wall motion abnormalities are seen. Right Ventricle Normal in size and function Right Atrium Normal in size Left Atrium Normal in size Mitral Valve Mild mitral annular calcification is seen. Trace mitral regurgitation Aortic Valve Structurally normal aortic valve. No significant stenosis or regurgitation. Tricuspid Valve Mild tricuspid regurgitation. Insufficient TR jet to calculate RVSP. Pulmonic Valve Not well visualized Pericardium Normal Aorta Normal in size IVC Appears to be normal CONCLUSIONS LV systolic function is normal with EF 55 to 60%. Mild tricuspid regurgitation Mild mitral annular calcification is seen. Compared to prior echocardiogram from 2022, no significant changes are seen Chava Mckinley MD (Electronically Signed) Final Date: 14 May 2023 14:17 S
--- NOTE | 2023-05-14 08:49 | ECG_ITS ---
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 Measurements Intervals [place] Rate: 68 P: 70 WI: 165 QRS: 30 QRSD: 88 T: 46 QT: 420 QTc: 447 Interpretive Statements SINUS RHYTHM LOW QRS VOLTAGE IN PRECORDIAL LEADS [QRS DEFLECTION < 1.0 mV IN CHEST LEADS] Compared to ECG 05/13/2023 20:12:30 No significant changes Electronically Signed On 05-15-2023 23:15:40 RESEARCH ENVIRONMENTAL ENGINEER by Chvaa Mckinley M.D. [id number]
[2023-05-14] MEDS: docusate sodium 100 mg Capsule PO ×2 (09:25→21:08)
[2023-05-14] MEDS: predniSONE 10 mg Tablet 5 MG PO (09:25)
[2023-05-14] MEDS: folic acid 1 mg Tablet PO (09:25)
[2023-05-14] MEDS: gabapentin 300 mg Capsule PO ×2 (09:26→21:09)
[2023-05-14] MEDS: ropinirole 2 mg Tablet 5 MG PO ×2 (09:26→19:26)
[2023-05-14] MEDS: sucralfate 1 gm/10 mL Oral Liq UDC PO (09:28)
[2023-05-14] MEDS: LORazepam 2 mg/mL INJ 10 mL MDV 0.5 MG IVP ×3 (09:32→22:41)
[2023-05-14 10:14] LABS: Troponin(5th) Baseline 12 ng/L (0-10)
--- NOTE | 2023-05-14 10:49 | ECG_ITS ---
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 Measurements Intervals [place] Rate: 82 P: 74 MA: 178 QRS: 48 QRSD: 81 T: 35 QT: 384 QTc: 449 Interpretive Statements SINUS RHYTHM LOW QRS VOLTAGE IN PRECORDIAL LEADS [QRS DEFLECTION < 1.0 mV IN CHEST LEADS] NONSPECIFIC ST & T-WAVE ABNORMALITY Compared to ECG 05/14/2023 09:40:00 T-wave abnormality now present Electronically Signed On 05-15-2023 23:27:40 SPLICER HELPER by Chava Mckinley M.D. [id number]
[2023-05-14 11:09] LABS: Hematocrit 26.4 % (36-47)
--- NOTE | 2023-05-14 12:35 | W.PM.OPSFHP ---
Same Day Surgery H&P Indication for Procedure/HPI DATE OF PROCEDURE: May 14, 2023 CHIEF COMPLAINT/INDICATIONFOR SURGICAL PROCEDURE: Instability of cervical spine PREOP DIAGNOSIS: Loosening of cervical hardware PLANNED PROCEDURE: Operation Date: 05/12/23 10:55 Proposed Procedures p Hardware Removal Cervical(Not Applicable) - Ryan Hung DO Operation Date: 05/14/23 12:00 Proposed Procedures p cervical 2 to thoracic 2 posterior fusion w/ decompression(Not Applicable) - Ryan Hung DO Patient is being brought back to surgery due to the instability of her cervical spine. This past Wednesday I removed the hardware and the cages were still loose. I revised C3-4 and C4-5. C5-6 and C6-7 still had some stability to them however they are not fused. At this point I am doing posterior surgery in order to provide stability to her cervical spine. As well as decompress the stenosis distal present tween C3-C5. Medications/Allergies* Home Medications Medication Instructions Recorded Confirmed Type latanoprost 0.005 % eye drops 1 drp ophthalmic (eye) QPM 06/17/22 05/13/23 History prednisone 10 mg tablet 5 mg PO DAILY 02/03/23 05/11/23 History furosemide 40 mg tablet 40 mg PO DAILY PRN Edema 02/08/23 05/13/23 History albuterol sulfate 90 mcg/actuation 1 inh inhalation Q6H PRN shortness 03/01/23 05/13/23 History aerosol inhaler (Ventolin HFA) of breath or wheezing ropinirole 5 mg tablet 5 mg PO TID 03/01/23 05/13/23 History promethazine 12.5 mg tablet 12.5 mg PO BID 05/04/23 05/13/23 History ondansetron 8 mg disintegrating 8 mg PO Q8H PRN nausea/vomiting 05/13/23 05/13/23 History tablet Allergies/Adverse Reactions Allergy/AdvReac Type Severity Reaction Status Date / Time tizanidine Allergy Unknown Unknown Verified 05/12/23 09:17 amitriptyline Allergy ADR-Agitate Verified 05/12/23 09:17 d diphenhydramine Allergy ADR-Agitate Verified 05/12/23 09:17 [From Benadryl] d prochlorperazine Allergy Unknown Verified 05/12/23 09:17 [From Compazine] leflunomide AdvReac Intermediate GI adverse Verified 05/12/23 09:17 reactions sulfasalazine AdvReac Intermediate ADR-Nausea Verified 05/12/23 09:17 and acid reflux Current Medications: Generic Name Dose Route Start Last Admin Trade Name Freq PRN Reason Stop Dose Admin Albuterol/Ipratropium 3 ml 05/13/23 20:00 05/14/23 11:19 Ipratropium-Albuterol 3 Ml Neb INHALATION Not Given Q4H.RESPIRATORY KIM Dexamethasone 6 mg 05/13/23 20:00 05/13/23 20:34 Dexamethasone 10 Mg/Ml Inj IVP 6 mg Q24H KIM Administration Diazepam 5 mg 05/12/23 14:49 05/13/23 09:07 Diazepam 5 Mg Tablet PO 5 mg BID PRN Administration anxiety Docusate Sodium 100 mg 05/12/23 18:00 05/14/23 09:25 Docusate Sodium 100 Mg Capsule PO 100 mg BID KIM Administration Folic Acid 1 mg 05/13/23 09:00 05/14/23 09:25 Folic Acid 1 Mg Tablet PO 1 mg DAILY KIM Administration Gabapentin 300 mg 05/12/23 15:00 05/14/23 09:26 Gabapentin 300 Mg Capsule PO 300 mg TID KIM Administration Hydromorphone HCl 1 mg 05/14/23 06:30 05/14/23 10:57 Hydromorphone 1 Mg/Ml Inj 1 Ml IVP 1 mg Q2H PRN Administration PAIN Vancomycin HCl 1,000 mg/ 250 mls @ 250 mls/hr 05/13/23 23:45 05/14/23 01:12 Sodium Chloride IV Infused Q24H KIM Infusion Piperacillin Sod/Tazobactam 50 mls @ 12.5 mls/hr 05/14/23 02:00 05/14/23 09:33 Sod 3.375 gm/ Sodium Chloride IV 12.5 mls/hr Q8H KIM Administration Latanoprost 1 drop 05/12/23 18:00 05/13/23 18:00 Latanoprost 0.005% Op Soln 2.5 Ml Btl EYE-BOTH 1 drop QPM KIM Administration Levothyroxine Sodium 112 mcg 05/13/23 06:00 05/14/23 05:11 Levothyroxine 112 Mcg Tablet PO Not Given QAM KIM Lorazepam 0.5 mg 05/14/23 08:51 05/14/23 09:32 Lorazepam 2 Mg/Ml Inj 10 Ml Mdv IVP 0.5 mg TID PRN Administration ANXIETY Ondansetron HCl 4 mg 05/12/23 14:47 05/12/23 22:59 Ondansetron 2 Mg/Ml Sdv 2 Ml IVP 4 mg Q6H PRN Administration NAUSEA AND VOMITING Oxycodone HCl 5 - 10 mg 05/12/23 15:49 05/13/23 12:32 Oxycodone 5 Mg Ir Tab/Cap PO 10 mg Q6H PRN Administration MODERATE PAIN Pantoprazole Sodium 40 mg 05/13/23 20:00 05/14/23 07:18 Pantoprazole 40 Mg Sdv IVP 40 mg Q12H KIM Administration Prednisone 5 mg 05/13/23 09:00 05/14/23 09:25 Prednisone 10 Mg Tablet PO 5 mg DAILY KIM Administration Ropinirole HCl 5 mg 05/12/23 21:00 05/14/23 09:26 Ropinirole 2 Mg Tablet PO 5 mg TID KIM Administration Scopolamine 1 patch 05/13/23 21:30 05/13/23 21:37 Scopolamine 1.5 Patch TRANSDERMA 1 patch Q3D KIM Administration Sucralfate 1 gm 05/13/23 20:00 05/14/23 09:28 Sucralfate 1 Gm/10 Ml Oral Liq Udc PO 1 gm Q6H KIM Administration Pertinent History/Comorbid Conditions* Medical History (Updated 05/14/23 @ 00:55 by Bernard Ray MD) Allergic rhinitis due to allergen RLS (restless legs syndrome) Substance or medication-induced sleep disorder, insomnia type Anxiety and depression High risk medication use Seropositive rheumatoid arthritis of multiple sites Extrapyramidal and movement disorder CKD (chronic kidney disease) stage 3, GFR 30-59 ml/min Lung nodule, solitary Prediabetes Hyperlipidemia Iron deficiency anemia Hypothyroidism Surgical History (Updated 02/09/23 @ 07:42 by Delano Miguel PA-C) History of cholecystectomy History of appendectomy History of delivery History of hysterectomy with bilateral oophorectomy History of ankle surgery left Previous back surgery Social History Smoking and tobacco/nicotine status: former use of tobacco/nicotine Quit status (tobacco/nicotine): has quit using Year quit tobacco: 2009 Former quit date comment: Smoked for 9 months Alcohol intake: current Alcohol intake frequency: holidays/special occasions only Substance/Drug Use: never Pertinent Exam Findings alert and oriented x 3 Recommendations Surgery/Procedure today Coding Level of Care Code Acute Code for Chg Micki
[2023-05-14 12:41] LABS: Troponin 5 2HR 11.41 ng/L (0-10); Troponin 5 2HR Delta -0.59 ABS# (0-10)
--- NOTE | 2023-05-14 13:21 | PC.SOCIAL ---
IMM Update pg 2 of IMM updated and reviewed w/ patient. Copy provided and copy dated, initialed and placed in chart.
--- NOTE | 2023-05-14 13:24 | P.ANESASSM_ITS ---
Pre-Anesthetic Assessment Height/Weight: Height 1.63 m Weight 59.466 kg Temp Pulse Resp BP Pulse Ox O2 Del Method O2 Flow Rate 97.5 F L 89 14 115/69 95 Nasal Cannula 2 05/14/23 08:00 05/14/23 10:00 05/14/23 10:57 05/14/23 10:00 05/14/23 10:57 05/14/23 08:00 05/14/23 08:00 Preop Diagnosis: Loosening of cervical hardware Operation Date: 05/12/23 10:55 Proposed Procedures p Hardware Removal Cervical(Not Applicable) - Ryan Hung DO Operation Date: 05/14/23 12:00 Proposed Procedures p cervical 2 to thoracic 2 posterior fusion w/ decompression(Not Applicable) - Ryan Hung DO Last intake: Intake Last Liquid Date 05/13/23 Last Liquid Time 18:00 Last Solid Date 05/13/23 Last Solid Time 18:00 Exam alert and oriented x 3 weakness in shoulders and arms bilat Airway Cervical ROM: Other (c-collar in place) Mallampati: Class II CV/HEM None reported Neuropsych Anxiety Anesthetic Plan ASA status: 4 Anesthesia: Anesthesia Evaluation (possible post op vent. Arterial line discussed) and General Risk of > 500 ml blood loss (7ml/kg in children): Yes, adequate IV access and fluids planned Medications/Allergies Home Medications Medication Instructions Recorded Confirmed Last Taken Type latanoprost 0.005 % eye drops 1 drp ophthalmic (eye) QPM 06/17/22 05/13/23 05/10/23 History levothyroxine 112 mcg tablet 112 mcg PO QAM low thyroid #90 tabs 10/15/22 05/13/23 05/12/23 02:00 Rx gabapentin 300 mg capsule 300 mg PO TID chronic pain #90 caps 10/22/22 05/13/23 05/11/23 Rx Bone growth stimulator #1 ea 01/22/23 05/13/23 Unknown Rx prednisone 10 mg tablet 5 mg PO DAILY 02/03/23 05/11/23 04/21/23 History Bone growth stimulator #1 ea 02/05/23 05/13/23 Unknown Rx furosemide 40 mg tablet 40 mg PO DAILY PRN Edema 02/08/23 05/13/23 05/05/23 History albuterol sulfate 90 mcg/actuation 1 inh inhalation Q6H PRN shortness 03/01/23 05/13/23 05/11/23 History aerosol inhaler (Ventolin HFA) of breath or wheezing ropinirole 5 mg tablet 5 mg PO TID 03/01/23 05/13/23 05/12/23 02:00 History baclofen 10 mg tablet 10 mg PO BID PRN Muscle Spasm 30 03/10/23 05/13/23 05/12/23 02:00 Rx days #30 tabs diazepam 5 mg tablet (Valium) 5 mg PO BID PRN anxiety #14 tabs 04/27/23 05/13/23 05/11/23 Rx folic acid 1 mg tablet 1 mg PO DAILY #90 tabs 05/04/23 05/13/23 05/11/23 Rx insulin syringes (disposable) 1 mL #25 ea 05/04/23 05/13/23 Unknown Rx methotrexate sodium 25 mg/mL 20 mg (0.8 mL) SUBCUT .Q7days #10 05/04/23 05/11/23 Unknown Rx injection solution mL oxycodone 5 mg tablet 10 mg (2 x 5 mg) PO Q6H PRN pain 7 05/04/23 05/13/23 05/12/23 02:00 Rx days #40 tabs promethazine 12.5 mg tablet 12.5 mg PO BID 05/04/23 05/13/23 05/11/23 History dexlansoprazole 30 mg See Rx Instructions .Route 05/13/23 Unknown Rx capsule,biphase delayed release .COMPLEX #90 caps ondansetron 8 mg disintegrating 8 mg PO Q8H PRN nausea/vomiting 05/13/23 05/13/23 Unknown History tablet Allergies Allergy/AdvReac Type Severity Reaction Status Date / Time tizanidine Allergy Unknown Unknown Verified 05/12/23 09:17 amitriptyline Allergy ADR-Agitate Verified 05/12/23 09:17 d diphenhydramine Allergy ADR-Agitate Verified 05/12/23 09:17 [From Benadryl] d prochlorperazine Allergy Unknown Verified 05/12/23 09:17 [From Compazine] leflunomide AdvReac Intermediate GI adverse Verified 05/12/23 09:17 reactions sulfasalazine AdvReac Intermediate ADR-Nausea Verified 05/12/23 09:17 and acid reflux Current Medications Generic Name Dose Route Start Last Admin Trade Name Freq PRN Reason Stop Dose Admin Albuterol/Ipratropium 3 ml 05/13/23 20:00 05/14/23 11:19 Ipratropium-Albuterol 3 Ml Neb INHALATION Not Given Q4H.RESPIRATORY KIM Dexamethasone 6 mg 05/13/23 20:00 05/13/23 20:34 Dexamethasone 10 Mg/Ml Inj IVP 6 mg Q24H KIM Administration Diazepam 5 mg 05/12/23 14:49 05/13/23 09:07 Diazepam 5 Mg Tablet PO 5 mg BID PRN Administration anxiety Docusate Sodium 100 mg 05/12/23 18:00 05/14/23 09:25 Docusate Sodium 100 Mg Capsule PO 100 mg BID KIM Administration Folic Acid 1 mg 05/13/23 09:00 05/14/23 09:25 Folic Acid 1 Mg Tablet PO 1 mg DAILY KIM Administration Gabapentin 300 mg 05/12/23 15:00 05/14/23 09:26 Gabapentin 300 Mg Capsule PO 300 mg TID KIM Administration Hydromorphone HCl 1 mg 05/14/23 06:30 05/14/23 10:57 Hydromorphone 1 Mg/Ml Inj 1 Ml IVP 1 mg Q2H PRN Administration PAIN Vancomycin HCl 1,000 mg/ 250 mls @ 250 mls/hr 05/13/23 23:45 05/14/23 01:12 Sodium Chloride IV Infused Q24H KIM Infusion Piperacillin Sod/Tazobactam 50 mls @ 12.5 mls/hr 05/14/23 02:00 05/14/23 09:33 Sod 3.375 gm/ Sodium Chloride IV 12.5 mls/hr Q8H KIM Administration Latanoprost 1 drop 05/12/23 18:00 05/13/23 18:00 Latanoprost 0.005% Op Soln 2.5 Ml Btl EYE-BOTH 1 drop QPM KIM Administration Levothyroxine Sodium 112 mcg 05/13/23 06:00 05/14/23 05:11 Levothyroxine 112 Mcg Tablet PO Not Given QAM KIM Lorazepam 0.5 mg 05/14/23 08:51 05/14/23 09:32 Lorazepam 2 Mg/Ml Inj 10 Ml Mdv IVP 0.5 mg TID PRN Administration ANXIETY Ondansetron HCl 4 mg 05/12/23 14:47 05/12/23 22:59 Ondansetron 2 Mg/Ml Sdv 2 Ml IVP 4 mg Q6H PRN Administration NAUSEA AND VOMITING Oxycodone HCl 5 - 10 mg 05/12/23 15:49 05/13/23 12:32 Oxycodone 5 Mg Ir Tab/Cap PO 10 mg Q6H PRN Administration MODERATE PAIN Pantoprazole Sodium 40 mg 05/13/23 20:00 05/14/23 07:18 Pantoprazole 40 Mg Sdv IVP 40 mg Q12H KIM Administration Prednisone 5 mg 05/13/23 09:00 05/14/23 09:25 Prednisone 10 Mg Tablet PO 5 mg DAILY KIM Administration Ropinirole HCl 5 mg 05/12/23 21:00 05/14/23 09:26 Ropinirole 2 Mg Tablet PO 5 mg TID KIM Administration Scopolamine 1 patch 05/13/23 21:30 05/13/23 21:37 Scopolamine 1.5 Patch TRANSDERMA 1 patch Q3D KIM Administration Sucralfate 1 gm 05/13/23 20:00 05/14/23 09:28 Sucralfate 1 Gm/10 Ml Oral Liq Udc PO 1 gm Q6H KIM Administration PFSH Anesthesia Medical History Allergic rhinitis due to allergen RLS (restless legs syndrome) Substance or medication-induced sleep disorder, insomnia type Anxiety and depression High risk medication use Seropositive rheumatoid arthritis of multiple sites Extrapyramidal and movement disorder CKD (chronic kidney disease) stage 3, GFR 30-59 ml/min Lung nodule, solitary Prediabetes Hyperlipidemia Iron deficiency anemia Hypothyroidism Surgical History History of cholecystectomy History of appendectomy History of delivery History of hysterectomy with bilateral oophorectomy History of ankle surgery left Previous back surgery Social History Smoking and tobacco/nicotine status: former use of tobacco/nicotine Quit status (tobacco/nicotine): has quit using Year quit tobacco: 2009 Former quit date comment: Smoked for 9 months Alcohol intake: current Alcohol intake frequency: holidays/special occasions only Substance/Drug Use: never Data Anesthesia 05/14/23 09:31 05/14/23 02:09 Short CBC 05/13/23 05/13/23 05/14/23 Range/Units 19:50 23:03 02:09 WBC 7.24 6.99 (3.29-11.43) 10^3/uL Hgb 9.10 L 7.70 L 7.50 L (11.27-16.99) g/dL Hct 31.0 L 26.0 L 24.9 L (36-47) % MCV 79.5 L 78.8 L (85-98) fl Plt Count 267 244 (157-399) 10^3/cmm Neut % (Auto) 68.3 87.3 % Neut # (Auto) 4.95 6.10 (1.8-7.7) 10^3/uL 05/14/23 05/14/23 Range/Units 07:03 09:31 WBC (3.29-11.43) 10^3/uL Hgb 8.20 L 8.20 L (11.27-16.99) g/dL Hct 26.2 L 26.4 L (36-47) % MCV (85-98) fl Plt Count (157-399) 10^3/cmm Neut % (Auto) % Neut # (Auto) (1.8-7.7) 10^3/uL BMP 05/13/23 05/14/23 19:50 02:09 Sodium 138 137 Potassium 3.9 4.0 Chloride 103 107 Carbon Dioxide 20 L 19 L BUN 12 18 Creatinine 1.0 H 1.0 H Glucose 108 156 H Calcium 8.9 8.4 L Cardiac Enzymes 05/13/23 05/13/23 05/14/23 Range/Units 19:50 21:49 02:09 Creatine Kinase 40 32 (26-192) U/L Troponin T Baseline 14 H (0-10) ng/L Troponin T 120 Minute 12.36 H (0-10) ng/L Delta Troponin T -1.64 L (0-10) ABS# Troponin T Hi Sens 6Hr 10.91 H (0-10) ng/L Troponin T Hi Sens 6Hr Delta -3.09 L (0-12) ng/L NT-Pro-B Natriuret Pep 1075 H 1124 H (0-125) pg/mL 05/14/23 05/14/23 Range/Units 09:31 12:14 Creatine Kinase (26-192) U/L Troponin T Baseline 12 H (0-10) ng/L Troponin T 120 Minute 11.41 H (0-10) ng/L Delta Troponin T -0.59 L (0-10) ABS# Troponin T Hi Sens 6Hr (0-10) ng/L Troponin T Hi Sens 6Hr Delta (0-12) ng/L NT-Pro-B Natriuret Pep (0-125) pg/mL Liver Function 05/13/23 05/14/23 Range/Units 19:50 02:09 Total Bilirubin 0.2 0.2 (0.15-1.2) mg/dL AST 15 12 (0-32) U/L ALT < 5 < 5 (0-33) U/L Alkaline Phosphatase 104 93 (35-105) U/L Albumin 3.3 L 3.0 L (3.5-5.2) g/dL Urine 05/14/23 Range/Units 02:59 Urine Color Yellow (Yellow) Urine Appearance Clear (CLEAR) Urine pH 7 (5-7) Ur Specific [place] 1.005 (1.005-1.030) Urine Protein Neg (Negative) Urine Glucose (UA) Norm (Normal) Urine Ketones Negative (Negative) Urine Nitrate Negative (Negative) Urine Bilirubin Neg (Negative) Ur Leukocyte Esterase Negative (Negative) COVID Results 05/13/23 21:34 Coronavirus 229E (PCR) Not detected SARS-CoV-2 (PCR) Not detected Coags 05/13/23 05/13/23 05/14/23 19:50 21:49 02:09 PT 15.40 H 15.70 H INR 1.18 1.20 D-Dimer 2.34 H C-Reactive Protein 81.0 H ABG 05/13/23 19:43 Specimen Type Arterial Sample Site Radial, right ABG pH 7.43 ABG pCO2 36.2 ABG pO2 60.1 L ABG PO2/FiO2 Ratio 0 ABG HCO3 24.2 ABG O2 Saturation 93.3 ABG Base Excess 0.1 A-a O2 Gradient 5.7 O2 Delivery Device None FiO2 21.0 Cardiac Studies: 2 Echocardiogram 06/17/22 Cardiac Event Monitor 07/13/22
--- NOTE | 2023-05-14 14:19 | P.PN_ITS ---
Subjective 2 Subjective: Echo unremarkable Troponin with negative delta Patient going for surgery today with Dr. Hung Plan for IV CBC placement Dr. Mckinley tomorrow Hemoglobin stable at 8.2 Patient seems very anxious Given IV Ativan Vitals/I&O/Wt Last Vital Signs Temp 97.6 F 05/14/23 13:00 Pulse 79 05/14/23 13:00 Resp 21 H 05/14/23 13:00 BP 135/75 05/14/23 13:00 Pulse Ox 98 05/14/23 13:00 O2 Del Method Mechanical Ventilation 05/14/23 13:00 O2 Flow Rate 2 05/14/23 08:00 FiO2 35 05/14/23 13:00 05/13/23 05/14/23 05/14/23 22:59 06:59 14:59 Intake Total 1026 / 2113 714 / 2827 0 / 0 Output Total 2400 / 2400 2200 / 2200 Balance 1026 / 2113 -1686 / 427 -2200 / -2200 Weight last 48 hrs Weight 59.466 kg Weight 59.965 kg Weight 53.977 kg Weight 53.977 kg Physical Exam 2 Narrative: Awake and alert Dehydrated GCS 8 Abdomen soft Neck collar in place Hemodynamically stable Currently on room air Nonfocal neuroexam Urinary Catheter Management: Brandt: Cath Placed During This Visit: yes Reason for Continuing Indwelling Catheter: Accurate Measurement of Urinary Output in Critically Ill Patients Urinary Catheter Date of Insertion: 05/14/23 Urinary Catheter Time of Insertion: 02:58 Data 05/14/23 09:31 05/14/23 02:09 A&P Assessment and plan (1) Anxiety and depression: (2) Hypothyroidism: (3) GERD with esophagitis: (4) GI bleed: (5) CKD (chronic kidney disease) stage 3, GFR 30-59 ml/min: (6) Iron deficiency anemia: (7) Acute anemia: (8) Seropositive rheumatoid arthritis of multiple sites: (9) Osteoarthritis, shoulder: (10) Pneumonia: (11) Cervical adenopathy: (12) Hematoma complicating a procedure: Plan Patient has history of right arm DVT with a PICC line, she was on Coumadin at some point which was discontinued secondary to GI bleed Hematemesis Hemoglobin stable so far Not a candidate to be on anticoagulating agent with current DVT Dr. Ibarra to do IVC filter by tomorrow Patient is going for hematoma evacuation with Dr. Hung We will let her eat until midnight Agree with continuation of Decadron for swelling she is currently on antibiotics no active signs of meningitis Continue ICU management Monitor for any worsening of hematemesis Cardiac clearance was obtained for surgery today Spoke with Dr. Fred Hung Spoke with ICU nurse Attestations 2 Medical Necessity Statement*: Continue management in ICU Diagnoses Anxiety and depression F41.9; F32.A Hypothyroidism E03.9 Gastroesophageal reflux disease with esophagitis without hemorrhage K21.00 GI bleed K92.2 CKD (chronic kidney disease) stage 3, GFR 30-59 ml/min N18.30 Iron deficiency anemia D50.9 Acute anemia D64.9 Seropositive rheumatoid arthritis of multiple sites M05.79 Osteoarthritis, shoulder M19.019 Pneumonia J18.9 Cervical adenopathy R59.0 Hematoma complicating a procedure
[2023-05-14] MEDS: vancomycin 1,000 MG SDV 1000 MG INTRA-ARTI (14:25)
[2023-05-14] MEDS: lidocaine-epi 1% 20 mL INJ INJECTION (14:25)
--- NOTE | 2023-05-14 14:34 | SUR.OPER ---
called S.O. notified him of surgical start and progress.
--- NOTE | 2023-05-14 15:27 | SUR.OPER ---
S.O. notified of surgical progress.
--- NOTE | 2023-05-14 16:56 | P.OP_ITS ---
Operative Report Date of procedure: May 14, 2023 Pre-op diagnosis: Nonunion cervical spine Post-op diagnosis: same Procedure done: 1. C2-T2 posterior spine fusion 2. C2- T2 posterior instrumentation 3. C3/4 laminectomy with partial facetectomy 4. C4-5 laminectomy with partial facetectomy 5. C5-6 laminectomy with partial facetectomy 6. C6-7 laminectomy with partial facetectomy 7. Use of computer navigation stereotactic for spine. 8. Use of autograft 9. Use of allograft Surgeon: Ryan Hung DO Estimated blood loss (mL): 225 Procedure: 1. C2-T2 posterior spine fusion 2. C2- T2 posterior instrumentation 3. C3/4 laminectomy with partial facetectomy 4. C4-5 laminectomy with partial facetectomy 5. C5-6 laminectomy with partial facetectomy 6. C6-7 laminectomy with partial facetectomy 7. Use of computer navigation stereotactic for spine. 8. Use of autograft 9. Use of allograft Patient brought the operative suite after undergoing anesthesia was placed in the prone position. All areas impingement well-padded. Patient was prepped draped normal sterile fashion. Skin incision made midline from C2 down to T2. Subperiosteal dissection was made out to the lateral masses from C2 down to C7. And up to the transverse processes of T1 and T2. Once the exposure was complete Attention was then brought to the placement of the fiducial for the computer navigation. This was done using a clamp onto the T3 spinous process. The clamp was placed followed by placing the fiducial followed by bringing the C-arm. C- arm was brought in on the patient. The information from serum was then used to place the screws navigated. Next tension was brought to placing the CT to prior screws. This was done by using the computer navigated drill placing it up in through the pars. Avoiding the vertebral artery. This was done incrementally with a drill. Up to 18 mm. This was done bilaterally. And then the 18 mm screw was used. Next the lateral mass screws were placed. This was done by drilling from the center of the lateral mass out to the upper corner into the lateral mass this was done drilling then followed by the pedicle feeler. Followed by placement of screw. The screws were all size 14. This was done at C3 bilaterally, C4 bilaterally, C5 bilaterally, and C6 bilaterally. Attention was brought to placing the thoracic pedicle screws. This was done by drilling over the apex of the transverse process. Followed by using the computer navigated all. Followed by using the pedicle feeler followed by placement of screw. This was done at T1 and T2 bilaterally these are all size 28 screws. Next tension was brought to placing the rods. Rods were placed from C2 down through all the screws at C3 C4-C5-C6 T1 and T2. This was done bilaterally. Caps were then torqued and the place. Locked down. This was done bilaterally. She was brought to performing the laminectomies and partial facetectomies. Attention was first brought to the C5 lamina. High-speed bur was used to cut through the lamina bilaterally then this was done at C4 bilaterally. And then C3 bilaterally. The lamina were then pulled up after cutting the ligamentum flavum distally. And then the lamina were taken off as a whole at C5 C4 and C3. And then the ligamentum flavum was cut superiorly. The 3 laminas were then used for bone graft. Next attention was brought to the C3-4 facet joint. This was taken down medially bilaterally using Kerrison rongeur. This process was repeated at C4-5 C5-6 and C6-7 bilaterally. Completing the laminectomies and partial facetectomies at C3-4, C4-5, C5-6. The dura floated back and I felt that C6 need to be taken down. This point a laminectomy was performed at C6 as well. This was done by using the high-speed bur cutting the lamina bilaterally. And then taking down the medial aspect of the facet joint at C6-7 bilaterally. Completing the 4 level laminectomy with partial facetectomies. Next tension was brought to decorticating the lateral gutter with a high-speed bur as well as the lamina of C7-T1 and T2. OsteoMed bone graft was packed in the lateral gutters as well as around the thoracic lamina and lateral gutters. The allograft was packed on top of this. A deep drain was placed vancomycin powder was placed and the wound was closed in a layered fashion with 0 Vicryl 2- 0 Vicryl and Monocryl suture. Sterile dressings were applied and patient was transferred back to the ICU in stable condition.
[2023-05-14] MEDS: ondansetron 2 mg/ML SDV 2 mL 4 MG IVP (18:20)
[2023-05-14] MEDS: ceFAZolin 2,000 MG in sodium chloride 0.9% (plus) 50 ML 100 MG IV (18:23)
[2023-05-14] MEDS: ketorolac 30 mg/mL INJ IVP (18:34)
[2023-05-14] MEDS: latanoprost 0.005% Op Soln 2.5 mL Btl 1 DROP EYE-BOTH (18:36)
--- NOTE | 2023-05-14 19:04 | PC.NURSE ---
REceived patient from OR staff 171. Patient is lethargic, but oriented to person, place, time, and situation. 75mL of bloody drainage emptied from hemovac upon arrival. BP: 120/68, HR: 102, RR: 14, SPO2: 98%, Temp: 97.8. Patient is reporting pain 10/10, but has been easy to control with PRN hydrocodone, and a 1 time dose of toradol, and ativan for anxiety. Patient does have PO pain medication available, which she wants to use instead of the IV pain medication after her neck/throat pain is under control and it is easier for her to swallow.
[2023-05-14] MEDS: diazePAM 5 mg Tablet PO (19:26)
[2023-05-14] MEDS: dexamethasone 10 mg/mL INJ 6 MG IVP (19:56)
[2023-05-14 20:52] LABS: Troponin 5 6HR 21.51 ng/L (0-10)
[2023-05-14 21:05] LABS: Troponin 5 6HR Delta 9.51 ng/L (0-12)
[2023-05-14] MEDS: oxyCODONE 5 mg IR Tab/Cap PO (21:08)
[2023-05-14] MEDS: baclofen 10 mg Tablet PO (23:13)
[2023-05-15] VITALS (60 sets, daily range): BP systolic 94–170; BP diastolic 52–143; PULSE 61–90; RESP 10–28; TEMP 36.1–36.8; O2SAT 92–100; BMI 23.1
[2023-05-15] MEDS: ipratropium-albuterol 3 mL Neb INHALATION ×4 (00:15→11:55)
[2023-05-15] MEDS: ceFAZolin 2,000 MG in sodium chloride 0.9% (plus) 50 ML 100 MG IV ×2 (00:32→08:37)
[2023-05-15] MEDS: HYDROmorphone 1 mg/mL INJ 1 mL IVP ×5 (00:33→23:00)
[2023-05-15] MEDS: piperacillin-tazobactam 3.375 GM in sodium chloride 0.9% (plus) 50 ML IV ×3 (01:07→17:19)
[2023-05-15 01:08] LABS: Glucose Point of Care 150 mg/dL (70-110)
[2023-05-15] MEDS: oxyCODONE 5 mg IR Tab/Cap PO ×3 (03:32→19:37)
[2023-05-15 04:25] LABS: Basophils % 0.1 %; Hematocrit 24.7 % (36-47); Lymphocytes # 0.5 10^3/uL (0.8-4.8); Lymphocytes % 6.9 %; Mean Corpuscular HGB Conc 30.8 g/dL (30-55); Mean Corpuscular Volume 74.8 fl (85-98); Mean Platelet Volume 10.3 fL (7.4-10.4); Monocytes # 0.3 10^3/uL (0.2-0.9); Monocytes % 4.5 %; Neutrophils # 6.11 10^3/uL (1.8-7.7); Neutrophils % 87.9 %; Nucleated Red Blood Cells % 0 %; Platelet Count 241 10^3/cmm (157-399); Red Cell Distribution Width 18.8 % (12.1-15.1); White Blood Count 6.95 10^3/uL (3.29-11.43)
[2023-05-15 04:47] LABS: Alanine Aminotransferase < 5 U/L (0-33); Albumin Level 2.9 g/dL (3.5-5.2); Alkaline Phosphatase 96 U/L (35-105); Anion Gap 15.6 (5-19); Aspartate Amino Transferase 31 U/L (0-32); Blood Urea Nitrogen 18 mg/dL (8-23); Calcium 7.7 mg/dL (8.5-10.5); Carbon Dioxide 20 mmol/L (22-29); Chloride 111 mmol/L (98-107); Glucose 156 mg/dL (65-115); Osmolality Calculated 301 mOsm/kg (285-295); Potassium 3.6 mmol/L (3.5-5.1); Sodium 143 mmol/L (136-145); Total Bilirubin 0.2 mg/dL (0.15-1.2); Total Protein 5.9 g/dL (6.6-8.7)
--- NOTE | 2023-05-15 07:41 | XACV_ITS ---
Exam Room: [facility] Gender: Female : 1955 Any Known Allergies: Other Exam Priority: Routine Procedure(s): Procedure Description: Peripheral vascular Intervention Procedure Description: PV IVC Filter Placement Abdominal Interventional Findings INDICATION: DVT/ Contraindication to anticoagulation. Procedure details: IVC filter placement: We obtained access in left common femoral vein. 6 Pashto pigtail catheter was used to perform IVC venogram. Renal veins were identified. We then proceeded with placement of Cook Celect IVC filter under fluoroscopic guidance below the renal veins. At this time, sheath was removed and pressure was held to attain hemostasis.. Conclusions Successful placement of IVC filter under fluoroscopic guidance. Recommendations Transfer back to ICU. Outpatient cardiology follow up. Clinical Evaluation EBL: 5mL-10mL Procedural Details Pre-Procedure Time Out. Identified patient by full name and date of as verbalized by the patient/guarantor. Does the consent match the physician's order: Yes. Accurate & Complete Informed Consent: Yes. Inpatient/Outpatient History & Physical on Chart: Yes. If H&P is completed, is and addenduem needed: No; If yes, is the addendum complete: N/A. Visualize and Verify Site with Patient/Guarantor: N/A. Relevant Radiology Images available: Yes. Pre-op teaching completed and patient verbalized understanding. The risks, benefits, and alternatives of sedation and/or procedure were discussed by physician. The patient agrees to continue. Procedure started. Correct patient, site and procedure confirmed by cath team. PERRLA. Strong, equal hand physician office nurse bilaterally. Lungs clear x 5 lobes. Oxygen started at 2liters/min via nasal canula. bilateral groins was prepped with chloroprep then draped in the usual sterile fashion. Baseline sample Acquired. HR: 72 BPM. Physician arrived. Physician scrubbed in. Immediate Pre-Procedure Time Out. Correct Patient: Yes; Correct Procedure: Yes; Correct Site: Yes; Correct Patient Position: Yes; Correct Supplies: Yes; Dried Flammable Prep: Yes; Blood Products Available: N/A;. Procedure Delay: The P[place]ape[place] C-Arm wouldn't move. Had to reboot the system. Lidocaine 1% infiltrated to the left groin. Venous access obtained with a micropuncture set. A 5 prydeinig Angled Pig catheter in over wire. Abdominal aortogram performed in AP @ 10 mL/sec for a total of 30 mL. Catheter removed over the standard wire. The 6Fr sheath removed OTW. IVC filter sheath inserted OTW. IVC filter inserted and advanced. IVC filter sucessfully deployed. Deployment system removed. Lot# [id number]. Sheath(s) removed and manual pressure held until hemostasis was achieved. Sterile 4x4 and Op-site applied to the puncture site. No oozing or hematoma noted. Post sheath removal instructions were given and the patient verbalized understanding. Post Procedure: Pulses reassessed and unchanged. PERRLA. Strong, equal hand physician office nurse bilaterally. No VTE prophylaxis required. Medication's Wasted: Heparin = 1000 units. Total IV fluids: 35 mL. Complications: None. Estimated blood loss: 5mL-10mL. Responsiveness - Normal response to verbal stimuli; alert and oriented, PERRLA. Airway - Unaffected, no intervention required; spontaneous ventilation. Circulation: W/N/L, pulses unchanged. Nausea/Vomiting: No. Procedure completed. Patient transferred by bed to ICU. Vital chart was stopped. Access Site Site: Left Femoral vein Sheath Size: 6 Fr Hemostasis Success: Unsuccessful Procedure Medications Start: 9:28 AM Stop: 9:28 AM Medication: Versed Amount: 1 mg Route: I.V. Start: 9:29 AM Stop: 9:29 AM Medication: Fentanyl Amount: 50 mcg Route: I.V. Start: 9:37 AM Stop: 9:37 AM Medication: Versed Amount: 1 mg Route: I.V. Start: 9:43 AM Stop: 9:43 AM Medication: Fentanyl Amount: 50 mcg Route: I.V. I, the attending physician, have reviewed and verified all procedure medications. Yes, all medications given per verbal order History/Risk Factors Dyslipidemia: No Peripheral Arterial Disease (PAD): No Myocardial Infarction (PA): No Obesity: No Renal Disease: No Prior Interventions PCI: No CABG: No Valve Surgery: No Report Signatures Finalized by Chava Mckinley MD on 05/24/2023 12:31 PM
[2023-05-15] MEDS: pantoprazole 40 mg SDV IVP ×2 (07:44→19:35)
--- NOTE | 2023-05-15 09:26 | PC.NURSE ---
pt impulsive this am aware of where she is and of what is filter procedure for and doctor but anxious and restless attempt to remove brace and pull on drain redirects easily ... attempts to get out of bed sitter placed at bedside for assist
--- NOTE | 2023-05-15 09:28 | W.PM.OPSUD ---
Surgery/Procedure H&P Update DATE OF PROCEDURE: May 15, 2023 DATE H&P PERFORMED: 05/14/23 H&P UPDATE INFORMATION: I have reviewed H&P completed within last 30 days, I have examined patient prior to procedure and No changes to prior documentation PREOP DIAGNOSIS: Contraindication to anticoagulation/DVT PRIMARY INDICATION FOR PROCEDURE: Contraindication to anticoagulation/DVT PLANNED PROCEDURE: IVC filter placement PATIENT REASSESSED PRIOR TO SEDATION, WITH NO CHANGE NOTED: Yes PHYSICAL EXAM: alert, oriented x 3, clear to auscultation bilaterally and regular rate & rhythm AIRWAY EVAL/ANESTHESIA PLAN: normal airway, ASA III, Local Anesthesia, Risks, benefits & alternatives of sedation and/or procedure discussed and Patient agrees to continue as planned ADDITIONAL INFORMATION: Moderate sedation
--- NOTE | 2023-05-15 10:06 | P.PN_ITS ---
Subjective 2 Subjective: Patient had spine surgery yesterday. Got IVC filter today. Stable. Vitals/I&O/Wt Last Vital Signs Temp 97.6 F 05/15/23 08:00 Pulse 76 05/15/23 08:00 Resp 17 05/15/23 08:00 BP 131/67 05/15/23 08:00 Pulse Ox 95 05/15/23 08:00 O2 Del Method Room Air 05/15/23 07:47 O2 Flow Rate 2 05/14/23 18:30 FiO2 35 05/14/23 13:00 05/14/23 05/15/23 05/15/23 22:59 06:59 14:59 Intake Total 450 / 500 350 / 350 Output Total 600 / 2800 300 / 3100 Balance -150 / -2300 -300 / -2600 350 / 350 Weight last 48 hrs Weight 135 lb Weight 131 lb 1.6 oz Weight 132 lb 3.2 oz Physical Exam 2 Narrative: GENERAL: Patient is alert[] NECK: post op [] HEENT: No cyanosis. No icterus. No pallor. [] HEART: Regular S1 and S2. No murmur, rub or gallop. [] LUNGS: Clear to auscultate bilaterally. [] CENTRAL NERVOUS SYSTEM: Grossly nonfocal. [] EXTREMITIES: Lower extremities with no edema Urinary Catheter Management: Brandt: Cath Placed During This Visit: yes Reason for Continuing Indwelling Catheter: Accurate Measurement of Urinary Output in Critically Ill Patients Urinary Catheter Date of Insertion: 05/14/23 Urinary Catheter Time of Insertion: 02:58 Data 05/15/23 04:00 05/15/23 04:00 A&P Assessment and plan (1) DVT (deep venous thrombosis): (2) Pre-operative clearance: Plan IVC filter successfully placed. She may need stress test as outpatient. Medical management for now. Hgb is low. Monitor and transfuse as needed Thank you for involving us with care of this patient. Please call with questions. Attestations 2 Medical Necessity Statement*: Care expected to cross 2 midnights. Coding Level of Care Code Acute Code for [facility] Fwd Diagnoses DVT (deep venous thrombosis) I82.409 Pre-operative clearance Z01.818
--- NOTE | 2023-05-15 10:06 | PM.PROC ---
Procedure Note: Date of procedure: 05/15/23 Pre-procedure diagnosis: DVT/Severe anemia/contraindication to anticoagulation Post-procedure diagnosis: other (DVT/Severe anemia/contraindication to anticoagulation) Procedure: IVC filter placement: We obtained access in left common femoral vein.? 6 [place] pigtail catheter was used to perform IVC venogram.? Renal veins were identified.? We then proceeded with placement of Cook Celect IVC filter under fluoroscopic guidance below the renal veins. At this time, sheath was removed and pressure was held to attain hemostasis. Op report anesthesia: Local and Other (Moderate sedation) Performing Provider: Chava Mckinley Estimated blood loss (mL): 5 Complications: None Condition: stable Disposition: ICU Coding Level of Care Code Acute Code for [facility]
--- NOTE | 2023-05-15 10:20 | PC.NURSE ---
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
[2023-05-15 10:52] LABS: Hematocrit 24.1 % (36-47)
[2023-05-15] MEDS: predniSONE 10 mg Tablet 5 MG PO (12:04)
[2023-05-15] MEDS: docusate sodium 100 mg Capsule PO ×2 (12:04→17:41)
[2023-05-15] MEDS: gabapentin 300 mg Capsule PO ×2 (12:04→20:45)
[2023-05-15] MEDS: folic acid 1 mg Tablet PO (12:05)
[2023-05-15] MEDS: ropinirole 2 mg Tablet 5 MG PO ×2 (12:06→20:45)
--- NOTE | 2023-05-15 12:06 | P.PN_ITS ---
Subjective 2 Subjective: Patient is in bed little bit confused she has a sitter in the room. At this point pain is controlled. Vitals/I&O/Wt Last Vital Signs Temp 97.6 F 05/15/23 08:00 Pulse 68 05/15/23 11:56 Resp 17 05/15/23 11:45 BP 141/61 05/15/23 10:14 Pulse Ox 96 05/15/23 11:45 O2 Del Method Room Air 05/15/23 11:45 O2 Flow Rate 2 05/14/23 18:30 FiO2 35 05/14/23 13:00 05/14/23 05/15/23 05/15/23 22:59 06:59 14:59 Intake Total 450 / 500 400 / 400 Output Total 600 / 2800 300 / 3100 Balance -150 / -2300 -300 / -2600 400 / 400 Weight last 48 hrs Weight 135 lb Weight 131 lb 1.6 oz Weight 132 lb 3.2 oz Physical Exam 2 Narrative: Moving all extremities. Is able to swallow. Drain had about 75 out of it. Will keep in today. Urinary Catheter Management: Brandt: Cath Placed During This Visit: yes Reason for Continuing Indwelling Catheter: Accurate Measurement of Urinary Output in Critically Ill Patients Urinary Catheter Date of Insertion: 05/14/23 Urinary Catheter Time of Insertion: 02:58 Data 05/15/23 10:15 05/15/23 04:00 A&P Assessment and plan (1) Status post cervical spinal fusion: Patient is postop day #1 posterior cervical spine fusion. Attestations 2 Medical Necessity Statement*: Per primary service Coding Level of Care Code Acute Code for [facility] Fwd Diagnoses Status post cervical spinal fusion Z98.1
[2023-05-15] MEDS: levothyroxine 112 mcg Tablet PO (12:07)
--- NOTE | 2023-05-15 12:47 | P.PN_ITS ---
Subjective 2 Subjective: Patient is going for IVC filter placement today very anxious Repeat H&H which is showing hemoglobin 7.5 Will give her another unit of blood Creatinine 1.0 Adequate urine output Will keep her in ICU for today Vitals/I&O/Wt Last Vital Signs Temp 97.6 F 05/15/23 08:00 Pulse 68 05/15/23 11:56 Resp 17 05/15/23 11:45 BP 141/61 05/15/23 10:14 Pulse Ox 96 05/15/23 11:45 O2 Del Method Room Air 05/15/23 11:45 O2 Flow Rate 2 05/14/23 18:30 FiO2 35 05/14/23 13:00 05/14/23 05/15/23 05/15/23 22:59 06:59 14:59 Intake Total 450 / 500 400 / 400 Output Total 600 / 2800 300 / 3100 Balance -150 / -2300 -300 / -2600 400 / 400 Weight last 48 hrs Weight 61.235 kg Weight 59.466 kg Weight 59.965 kg Physical Exam 2 Narrative: Hemovac showing 100 mL Hemodynamically stable DC 50 Currently on room air Neck collar in place Very anxious S1, S2 No active shortness of breath Urinary Catheter Management: Brandt: Cath Placed During This Visit: yes Reason for Continuing Indwelling Catheter: Accurate Measurement of Urinary Output in Critically Ill Patients Urinary Catheter Date of Insertion: 05/14/23 Urinary Catheter Time of Insertion: 02:58 Data 05/15/23 10:15 05/15/23 04:00 A&P Assessment and plan (1) Pre-operative clearance: (2) RLS (restless legs syndrome): (3) Cervical spondylosis with myelopathy: (4) Seropositive rheumatoid arthritis of multiple sites: (5) CKD (chronic kidney disease) stage 3, GFR 30-59 ml/min: (6) GI bleed: (7) DVT (deep venous thrombosis): Plan I will give her 1 unit PRBC today Continue with DVT prophylaxis with SCDs Hemodynamic stable Currently on room air Anxiolytics for anxiety IVC filter placement Full code She will stay in ICU for next 24 hours Will follow along with cardiology and orthopedic service Continue bowel regimen along opioids Attestations 2 Medical Necessity Statement*: Continue ICU management Diagnoses Pre-operative clearance Z01.818 RLS (restless legs syndrome) G25.81 Cervical spondylosis with myelopathy M47.12 Seropositive rheumatoid arthritis of multiple sites M05.79 CKD (chronic kidney disease) stage 3, GFR 30-59 ml/min N18.30 GI bleed K92.2 DVT (deep venous thrombosis) I82.409
[2023-05-15] MEDS: sucralfate 1 gm/10 mL Oral Liq UDC PO ×2 (13:39→19:35)
--- NOTE | 2023-05-15 17:00 | PC.NURSE ---
pt awaken very loud and very agitated raising up in bed pulling lines demanding her boyfriend be here that he has not been here all day reminded that he was here twice today and had fed her lunch have called boyfriend several times yelling called doctor had given ativan and got order for zyprexa given
[2023-05-15] MEDS: latanoprost 0.005% Op Soln 2.5 mL Btl 1 DROP EYE-BOTH (17:42)
[2023-05-15] MEDS: OLANZapine 10 mg VIAL 5 MG IM ×2 (17:56→18:28)
--- NOTE | 2023-05-15 18:59 | PC.NURSE ---
Patient is behaving anxious and erratic stating that they are a drug dealer and that this nurse stole their stash of marijuana and vape pen. Second nurse and sitter where in room when the patient stated this.
[2023-05-15] MEDS: dexamethasone 10 mg/mL INJ 6 MG IVP (19:35)
[2023-05-15] MEDS: LORazepam 2 mg/mL INJ 10 mL MDV 0.5 MG IVP (19:36)
--- NOTE | 2023-05-15 20:35 | PC.NURSE ---
Patient is very anxious stating that they can hear their name being mentioned outside and that there is a lot of giggling. The patient states that they will get out of the bed and tell them that they should say it to their face . Patient verbally de escalated and explained to that there is no one making fun of her and if they are talking about her that is from a medical perspective. Patient understood and is more calm.
--- NOTE | 2023-05-15 21:14 | PC.NURSE ---
Addendum entered by Shelli Varela RN 05/16/23 00:40: Medication securement witnessed with SAMRA Skelton. Requip, oxycodone- 3 pills, and baclofen wrapped with tamper resistant tape, placed in a ziploc and locked in pyxis. Original Note: Patient was behaving very anxious stating that her medication was missing and that it was stolen. This nurse verbally de escalated the situation and helped them look through their purse. The medication was found and this nurse along with Barbara (RN) looked at the medication and placed it in the Pixys for securement. Patient was educated about where it was going to be and that it will be returned when they are discharged. Home medication was wrapped in tampering tape and zip locked and placed in the Pixys. Home medication listed below: Ropinirole Oxycodone- 3 pills Baclofen
[2023-05-15] MEDS: baclofen 10 mg Tablet PO (22:59)
[2023-05-15] MEDS: vancomycin 1,000 MG in sodium chloride 0.9% 250 ML 250 MG IV (22:59)
[2023-05-16] VITALS (38 sets, daily range): BP systolic 113–166; BP diastolic 53–104; PULSE 62–89; RESP 10–25; TEMP 36.3–36.7; O2SAT 94–100; BMI 24.0
[2023-05-16] MEDS: sucralfate 1 gm/10 mL Oral Liq UDC PO ×4 (01:55→19:41)
[2023-05-16] MEDS: piperacillin-tazobactam 3.375 GM in sodium chloride 0.9% (plus) 50 ML IV ×3 (01:55→17:32)
[2023-05-16] MEDS: HYDROmorphone 1 mg/mL INJ 1 mL IVP ×8 (01:55→19:41)
[2023-05-16 02:22] LABS: Basophils % 0.2 %; Hematocrit 26.4 % (36-47); Lymphocytes # 0.5 10^3/uL (0.8-4.8); Lymphocytes % 7.8 %; Mean Corpuscular HGB Conc 30.7 g/dL (30-55); Mean Corpuscular Hemoglobin 23.6 pg (27-33); Mean Platelet Volume 9.7 fL (7.4-10.4); Monocytes # 0.2 10^3/uL (0.2-0.9); Monocytes % 3.9 %; Neutrophils # 5.17 10^3/uL (1.8-7.7); Neutrophils % 87.4 %; Nucleated Red Blood Cells % 0 %; Platelet Count 264 10^3/cmm (157-399); Red Blood Count 3.43 10^6/uL (3.85-5.65); Red Cell Distribution Width 19.2 % (12.1-15.1); White Blood Count 5.91 10^3/uL (3.29-11.43)
--- NOTE | 2023-05-16 02:31 | PC.NURSE ---
There was a smell of marijuana coming from the patient's room. Patient stated that they had some marijuana in their purse along a vape pen. The patient stated that this nurse along another nurse Barbara could check their purse. There was a substance rolled in paper that was found along with a vape pen, 2 oxycodones, and one fluconazole pill. Patricia (housekeeping aid) and Michael (Security) were contacted and they both came down. The rolled up substance was flushed down the toilet by patricia and michael. The pills and vape pen were placed in the patient's pixys. Patient was educated about were their medication was and when they would be getting it back. Patient understood.
[2023-05-16] MEDS: ipratropium-albuterol 3 mL Neb INHALATION ×2 (03:30→07:46)
[2023-05-16 05:18] LABS: Alanine Aminotransferase < 5 U/L (0-33); Albumin Level 2.9 g/dL (3.5-5.2); Alkaline Phosphatase 89 U/L (35-105); Anion Gap 15.5 (5-19); Aspartate Amino Transferase 21 U/L (0-32); Blood Urea Nitrogen 16 mg/dL (8-23); Calcium 8.2 mg/dL (8.5-10.5); Carbon Dioxide 21 mmol/L (22-29); Chloride 111 mmol/L (98-107); Creatinine Clr Calc Pharmacy 60.0503; Globulin 3.1 g/dL (1.3-4.6); Glomerular Filtration Rate 71.1 mL/min (90-130); Glucose 216 mg/dL (65-115); Osmolality Calculated 306 mOsm/kg (285-295); Potassium 3.5 mmol/L (3.5-5.1); Sodium 144 mmol/L (136-145); Total Bilirubin 0.2 mg/dL (0.15-1.2)
[2023-05-16] MEDS: oxyCODONE 5 mg IR Tab/Cap PO ×2 (05:54→22:32)
[2023-05-16] MEDS: FUROsemide 40 mg Tablet PO (05:54)
[2023-05-16] MEDS: LORazepam 2 mg/mL INJ 10 mL MDV 0.5 MG IVP (05:55)
[2023-05-16] MEDS: levothyroxine 112 mcg Tablet PO (05:55)
[2023-05-16] MEDS: potassium chloride ER 20 mEq Tablet PO (06:35)
[2023-05-16] MEDS: pantoprazole 40 mg SDV IVP ×2 (08:46→19:40)
[2023-05-16] MEDS: gabapentin 300 mg Capsule PO ×3 (08:46→21:25)
[2023-05-16] MEDS: docusate sodium 100 mg Capsule PO ×2 (08:46→17:32)
[2023-05-16] MEDS: ropinirole 2 mg Tablet 5 MG PO ×3 (08:46→21:25)
[2023-05-16] MEDS: predniSONE 10 mg Tablet 5 MG PO (08:46)
[2023-05-16] MEDS: folic acid 1 mg Tablet PO (08:46)
--- NOTE | 2023-05-16 09:01 | P.PN_ITS ---
Subjective 2 Subjective: Patient is stable. No access site abnormalities. Vitals/I&O/Wt Last Vital Signs Temp 97.8 F 05/16/23 04:30 Pulse 83 05/16/23 08:00 Resp 22 H 05/16/23 08:00 BP 143/71 05/16/23 08:00 Pulse Ox 99 05/16/23 07:40 O2 Del Method Room Air 05/16/23 07:40 O2 Flow Rate 2 05/14/23 18:30 FiO2 35 05/14/23 13:00 05/15/23 05/16/23 05/16/23 22:59 06:59 14:59 Intake Total 450 / 1200 1020 / 2220 120 / 120 Output Total 1475 / 1475 275 / 1750 Balance -1025 / -275 745 / 470 120 / 120 Weight last 48 hrs Weight 140 lb Weight 135 lb Physical Exam 2 Narrative: GENERAL: Patient is alert[] NECK: post op [] HEENT: No cyanosis. No icterus. No pallor. [] HEART: Regular S1 and S2. No murmur, rub or gallop. [] LUNGS: Clear to auscultate bilaterally. [] CENTRAL NERVOUS SYSTEM: Grossly nonfocal. [] EXTREMITIES: Lower extremities with no edema Urinary Catheter Management: Brandt: Cath Placed During This Visit: yes Reason for Continuing Indwelling Catheter: Accurate Measurement of Urinary Output in Critically Ill Patients Urinary Catheter Date of Insertion: 05/14/23 Urinary Catheter Time of Insertion: 02:58 Data 05/17/23 04:54 05/17/23 04:54 A&P Assessment and plan (1) DVT (deep venous thrombosis): (2) Pre-operative clearance: Plan Status post successful IVC filter placement. No access site abnormalities. Thank you for involving us with care of this patient. Please call with questions. Attestations 2 Medical Necessity Statement*: Care expected to cross 2 midnights. Coding Level of Care Code Acute Code for [facility] Diagnoses DVT (deep venous thrombosis) I82.409 Pre-operative clearance Z01.818
--- NOTE | 2023-05-16 11:19 | PC.NURSE ---
Dr Hung here exam pt ... drain removed back of neck whole intact .. dressing intact
--- NOTE | 2023-05-16 11:20 | PM.PN ---
Subjective Subjective: Patient is doing well pain controlled. [facility] Vitals/I&O/Wt Last Vital Signs Temp 97.8 F 05/16/23 04:30 Pulse 75 05/16/23 10:00 Resp 14 05/16/23 10:00 BP 143/71 05/16/23 08:00 Pulse Ox 99 05/16/23 07:40 O2 Del Method Room Air 05/16/23 07:40 O2 Flow Rate 2 05/14/23 18:30 FiO2 35 05/14/23 13:00 05/15/23 05/16/23 05/16/23 22:59 06:59 14:59 Intake Total 450 / 1200 1020 / 2220 120 / 120 Output Total 1475 / 1475 275 / 1750 Balance -1025 / -275 745 / 470 120 / 120 Weight last 48 hrs Weight 140 lb Weight 135 lb Physical Exam Narrative: Wound clean dry and intact. Drain was pulled at bedside. Patient stated that her hands are feeling much better. Urinary Catheter Management: Brandt: Cath Placed During This Visit: yes Reason for Continuing Indwelling Catheter: Accurate Measurement of Urinary Output in Critically Ill Patients Urinary Catheter Date of Insertion: 05/14/23 Urinary Catheter Time of Insertion: 02:58 Data 05/16/23 02:03 05/16/23 04:36 A&P Assessment and plan (1) Status post cervical spinal fusion: Postop day #2 posterior cervical spine fusion. [facility] Discharge planning to shelter. Attestations Medical Necessity Statement*: Per primary service Coding Level of Care Code Acute Code for [facility] Fwd Diagnoses Status post cervical spinal fusion Z98.1
--- NOTE | 2023-05-16 13:10 | P.PN_ITS ---
Subjective 2 Subjective: Patient is doing much better today Anxiety improved She did not receive any blood yesterday Hemoglobin is 8.1 Stable No need of EGD or colonoscopy as of now I can transfer out of ICU to [facility] Vitals/I&O/Wt Last Vital Signs Temp 98.1 F 05/16/23 12:00 Pulse 66 05/16/23 12:00 Resp 24 H 05/16/23 12:45 BP 156/73 05/16/23 12:00 Pulse Ox 99 05/16/23 07:40 O2 Del Method Room Air 05/16/23 07:40 O2 Flow Rate 2 05/14/23 18:30 FiO2 35 05/14/23 13:00 05/15/23 05/16/23 05/16/23 22:59 06:59 14:59 Intake Total 450 / 1200 1020 / 2220 120 / 120 Output Total 1475 / 1475 275 / 1750 Balance -1025 / -275 745 / 470 120 / 120 Weight last 48 hrs Weight 63.503 kg Weight 61.235 kg Physical Exam 2 Narrative: Doing much better Euvolemic GCS 15 Currently on room air Pleasant cooperative Hemodynamically stable Abdomen soft Lower extremity no edema Hemovac in place Urinary Catheter Management: Brandt: Cath Placed During This Visit: yes Reason for Continuing Indwelling Catheter: Accurate Measurement of Urinary Output in Critically Ill Patients Urinary Catheter Date of Insertion: 05/14/23 Urinary Catheter Time of Insertion: 02:58 Data 05/16/23 02:03 05/16/23 04:36 A&P Assessment and plan (1) Anxiety and depression: (2) DVT (deep venous thrombosis): (3) GERD with esophagitis: (4) GI bleed: (5) CKD (chronic kidney disease) stage 3, GFR 30-59 ml/min: (6) Iron deficiency anemia: (7) Acute anemia: (8) Seropositive rheumatoid arthritis of multiple sites: (9) Osteoarthritis, shoulder: (10) Cervical spondylosis with myelopathy: Plan Hemoglobin has remained stable She did not receive blood yesterday Avoid DVT prophylaxis secondary to recent episode of GI bleed Can be transferred out of ICU to [facility] Currently doing well on room air I have discontinued her diazepam, would use Xanax for her anxiety Patient does use marijuana at home Patient endorsing feeling much better today Status post IVC filter placement DisContinue Decadron SCDs for DVT prophylaxis Continue vancomycin along Zosyn for now which can be de-escalated in next 24 to 48 hours Attestations 2 Medical Necessity Statement*: Transfer out of ICU to [facility] Diagnoses Anxiety and depression F41.9; F32.A DVT (deep venous thrombosis) I82.409 Gastroesophageal reflux disease with esophagitis without hemorrhage K21.00 GI bleed K92.2 CKD (chronic kidney disease) stage 3, GFR 30-59 ml/min N18.30 Iron deficiency anemia D50.9 Acute anemia D64.9 Seropositive rheumatoid arthritis of multiple sites M05.79 Osteoarthritis, shoulder M19.019 Cervical spondylosis with myelopathy M47.12
--- NOTE | 2023-05-16 15:06 | PC.NURSE ---
medication sent home with significant other per pt and his request signiture of both in room as he took meds to go home
--- NOTE | 2023-05-16 15:17 | PC.NURSE ---
report called and transfered to room 258
[2023-05-16] MEDS: pantoprazole DR 40 mg Tablet PO (17:32)
[2023-05-16] MEDS: latanoprost 0.005% Op Soln 2.5 mL Btl 1 DROP EYE-BOTH (17:56)
[2023-05-16] MEDS: baclofen 10 mg Tablet PO (19:41)
[2023-05-16] MEDS: sucralfate 1 gm Tablet PO (21:25)
[2023-05-16] MEDS: scopolamine 1.5 Patch 1 PATCH TRANSDERMA (21:29)
[2023-05-16 23:55] LABS: Vancomycin Trough 11.1 ug/mL (10-15)
[2023-05-17] VITALS (11 sets, daily range): BP systolic 171–186; BP diastolic 69–83; PULSE 73–88; RESP 16–20; TEMP 36.5–36.7; O2SAT 93–98
[2023-05-17] MEDS: vancomycin 1,000 MG in sodium chloride 0.9% 250 ML 250 MG IV (00:34)
[2023-05-17] MEDS: piperacillin-tazobactam 3.375 GM in sodium chloride 0.9% (plus) 50 ML IV ×2 (02:14→10:20)
[2023-05-17] MEDS: sucralfate 1 gm/10 mL Oral Liq UDC PO ×3 (03:18→16:06)
[2023-05-17] MEDS: HYDROmorphone 1 mg/mL INJ 1 mL IVP ×3 (03:19→15:01)
[2023-05-17] MEDS: LORazepam 2 mg/mL INJ 10 mL MDV 0.5 MG IVP (04:43)
[2023-05-17 05:48] LABS: Basophils % 0.3 %; Eosinophils # 0.2 10^3/uL (0.0-0.8); Hematocrit 26.2 % (36-47); Lymphocytes # 1.8 10^3/uL (0.8-4.8); Lymphocytes % 29.5 %; Mean Corpuscular HGB Conc 30.9 g/dL (30-55); Mean Corpuscular Volume 77.5 fl (85-98); Mean Platelet Volume 9.6 fL (7.4-10.4); Monocytes # 0.8 10^3/uL (0.2-0.9); Neutrophils # 3.35 10^3/uL (1.8-7.7); Neutrophils % 53.7 %; Nucleated Red Blood Cells % 0 %; Platelet Count 266 10^3/cmm (157-399); Red Blood Count 3.38 10^6/uL (3.85-5.65); Red Cell Distribution Width 19.3 % (12.1-15.1); White Blood Count 6.24 10^3/uL (3.29-11.43)
[2023-05-17] MEDS: levothyroxine 112 mcg Tablet PO (06:08)
[2023-05-17] MEDS: sucralfate 1 gm Tablet PO ×2 (06:08→11:43)
[2023-05-17] MEDS: oxyCODONE 5 mg IR Tab/Cap PO ×2 (06:08→10:21)
[2023-05-17 06:13] LABS: Blood Urea Nitrogen 12 mg/dL (8-23); Calcium 8.4 mg/dL (8.5-10.5); Carbon Dioxide 25 mmol/L (22-29); Chloride 106 mmol/L (98-107); Glucose 111 mg/dL (65-115); Osmolality Calculated 292 mOsm/kg (285-295); Sodium 141 mmol/L (136-145)
[2023-05-17 06:47] LABS: Anion Gap 12.8 (5-19); Potassium 2.8 mmol/L (3.5-5.1)
--- NOTE | 2023-05-17 06:47 | P.PN_ITS ---
Subjective 2 Subjective: Patient stated that she is having pain in the back of her neck when she moves it. Which is common shoulder with this type of surgery. Patient also stated that the vegetable grower wanted to stay in the hospital till Wednesday because of the IVC filter. Vitals/I&O/Wt Last Vital Signs Temp 98.1 F 05/17/23 00:00 Pulse 75 05/17/23 00:00 Resp 16 05/17/23 06:08 BP 177/69 05/17/23 00:00 Pulse Ox 98 05/17/23 00:00 O2 Del Method Room Air 05/17/23 00:00 O2 Flow Rate 2 05/14/23 18:30 FiO2 35 05/14/23 13:00 05/16/23 05/16/23 05/17/23 14:59 22:59 06:59 Intake Total 590 / 590 390 / 980 300 / 1280 Output Total 2500 / 2500 600 / 3100 450 / 3550 Balance -1910 / -1910 -210 / -2120 -150 / -2270 Weight last 48 hrs Weight 129 lb 9 oz Weight 140 lb Physical Exam 2 Narrative: Patient doing well sitting up in bed. Urinary Catheter Management: Brandt: Cath Placed During This Visit: yes Reason for Continuing Indwelling Catheter: Required Immobilization for Trauma or Surgery or Anesthesia Urinary Catheter Date of Insertion: 05/14/23 Urinary Catheter Time of Insertion: 02:58 Data 05/17/23 04:54 05/17/23 04:54 A&P Assessment and plan (1) Status post cervical spinal fusion: Postop day #3 history of spine fusion. Okay to discharge from orthopedic standpoint to retirement. Attestations 2 Medical Necessity Statement*: Per cardiology Coding Level of Care Code Acute Code for Chg Fwd Diagnoses Status post cervical spinal fusion Z98.1
[2023-05-17] MEDS: potassium chloride ER 20 mEq Tablet 40 MEQ PO (07:19)
--- NOTE | 2023-05-17 10:05 | W.PM.EVENTAC ---
Event Note Event Note: Hemoglobin is stable Brandt catheter removed Patient has been cleared from orthostatic standpoint to be discharged I will put in my discharge instructions and orders I will recommend 7 days of antibiotics, patient does not have any signs of infection or meningitis She will resume her sucralfate and Protonix for next 6 weeks at least Her opioids and anxiolytics could be resumed She is seen home Please note orthopedic service is the primary and we were consulted on this case Status post IVC filter
[2023-05-17] MEDS: lidocaine 1% 5 ML in potassium chloride premix 100 ML 26.25 ML IV (10:18)
[2023-05-17] MEDS: pantoprazole 40 mg SDV IVP (10:20)
[2023-05-17] MEDS: ropinirole 2 mg Tablet 5 MG PO ×2 (10:21→16:06)
[2023-05-17] MEDS: pantoprazole DR 40 mg Tablet PO (10:22)
[2023-05-17] MEDS: predniSONE 10 mg Tablet 5 MG PO (10:22)
[2023-05-17] MEDS: docusate sodium 100 mg Capsule PO (10:22)
[2023-05-17] MEDS: gabapentin 300 mg Capsule PO ×2 (10:23→16:06)
[2023-05-17] MEDS: folic acid 1 mg Tablet PO (10:23)
--- NOTE | 2023-05-17 11:17 | PC.SOCIAL ---
IMM Update pg 2 of IMM updated and reviewed w/ patient. Copy provided and copy dated, initialed and placed in chart.
--- NOTE | 2023-05-17 11:25 | PC.NURSE ---
Pt demanding IV K+, Dr. Bianchi changed order to po.
[2023-05-17] MEDS: potassium chloride ER 20 mEq Tablet 80 MEQ PO (11:43)
[2023-05-17] MEDS: baclofen 10 mg Tablet PO (11:43)
[2023-05-17 11:58] LABS: SARS Covid-2 Antigen negative (Negative)
--- NOTE | 2023-05-19 13:30 | P.DS_ITS ---
Discharge Providers Date of Admission: 05/12/23 14:47 Date of Discharge: May 17, 2023 Attending Provider at Admission: Ryan Hung DO Attending Provider at Discharge: Ryan Hung DO Primary Care Provider: Diana Garcia Diagnoses at Discharge Discharge Diagnosis (1) Status post cervical spinal fusion: Status: Inactive Reason for Visit Reason for Visit: Z98.1 Physical Exam Urinary Catheter Management: Brandt: Cath Placed During This Visit: yes Reason for Continuing Indwelling Catheter: Required Immobilization for Trauma or Surgery or Anesthesia Urinary Catheter Date of Insertion: 05/14/23 Urinary Catheter Time of Insertion: 02:58 Discharge Data Studies Completed and Pending Completed Studies During Hospitalization Category Date Time Status CT angio chest PE protcl [id number] Stat Cat Scan 05/13/23 20:[address] cervical spine wo con [CT cervical spin wo con* Cat Scan 05/12/23 14:51 Completed [id number]] Routine CT neck wo con [id number] Stat Cat Scan 05/13/23 20:53 Completed CXRP [XR chest 1V portable [id number]] Stat Exams 05/13/23 19:42 Completed XR cervical spine 3V* [id number] Routine Exams 05/13/23 Completed MR cervical spin wo con* [id number] Routine MRI 05/13/23 10:15 [place] [id number] Routine Ultrasound 05/13/23 19:46 Completed CV. echo complete* [id number] Stat Ultrasound 05/14/23 08:45 Completed Pending at discharge Category Date Time Status GRAIN ELEVATOR AGENT request for service Routine Exams 05/15/23 07:41 Taken Radiology Impressions Cervical Spine CT 05/12/23 14:51 IMPRESSION: 1. Interval anterior fusion hardware revision/replacement since 04/22/2023, hardware placement as described above. Slight protrusion of C4 on C5 screws beyond the posterior vertebral margin by 1-2 mm. 2. Surgical drain terminating in the right lower neck prevertebral tissues with mild surrounding edema but no large fluid collection. Chest X-Ray 05/13/23 19:42 IMPRESSION: No acute findings. Venous Duplex 05/13/23 19:46 IMPRESSION: Nonocclusive DVT within the mid and distal right superficial femoral vein and popliteal vein. Chest CTA 05/13/23 20:53 IMPRESSION: Negative for pulmonary embolism. No acute findings. Neck CT 05/13/23 20:53 IMPRESSION: 1. There is a loculated fluid collection with a thickened enhancing rim extending along the prevertebral space extending from C3 through C7 measuring at least 7.2 x 1.9 x 3.7 cm concerning for abscess until proven otherwise. 2. There is bony resorption of the central inferior endplate of C3, C4 and central superior endplate of C5 concerning for osteomyelitis. 3. Postsurgical changes along the anterior neck from recent anterior fusion C3-C4, C4-C5 and disc replacements at C5-C6 and C6-C7. ADDENDUM: 05/13/23 6950 THIS REPORT CONTAINS FINDINGS THAT MAY BE CRITICAL TO PATIENT CARE. The findings were verbally communicated via telephone conference with AMANDA Omalley at 10:53 PM CONTROL SYSTEMS DRAFTING OFFICER on 05/13/2023. The findings were acknowledged and understood. This loculated fluid collection measures 26 Hounsfield units which is inconsistent with CSF (10 Hounsfield units or less) and inconsistent with blood (typically over 35 Hounsfield units). A postoperative seroma typically has simple fluid attenuation (less than 20 Hounsfield units). Laboratory Results WBC 6.24 10^3/uL (3.29-11.43) 05/17/23 04:54 RBC 3.38 10^6/uL (3.85-5.65) L 05/17/23 04:54 Hgb 8.10 g/dL (11.27-16.99) L 05/17/23 04:54 Hct 26.2 % (36-47) L 05/17/23 04:54 MCV 77.5 fl (85-98) L 05/17/23 04:54 MCH 24.0 pg (27-33) L 05/17/23 04:54 MCHC 30.9 g/dL (30-55) 05/17/23 04:54 RDW 19.3 % (12.1-15.1) H 05/17/23 04:54 Plt Count 266 10^3/cmm (157-399) 05/17/23 04:54 MPV 9.6 fL (7.4-10.4) 05/17/23 04:54 Neut % (Auto) 53.7 % 05/17/23 04:54 Lymph % (Auto) 29.5 % 05/17/23 04:54 Todd % (Auto) 13.0 % 05/17/23 04:54 Eos % (Auto) 3.0 % 05/17/23 04:54 Baso % (Auto) 0.3 % 05/17/23 04:54 Neut # (Auto) 3.35 10^3/uL (1.8-7.7) 05/17/23 04:54 Lymph # (Auto) 1.8 10^3/uL (0.8-4.8) 05/17/23 04:54 Todd # (Auto) 0.8 10^3/uL (0.2-0.9) 05/17/23 04:54 Eos # (Auto) 0.2 10^3/uL (0.0-0.8) 05/17/23 04:54 Baso # (Auto) 0.0 10^3/uL (0.0-0.1) 05/17/23 04:54 Nucleated RBC % (auto) 0 % 05/17/23 04:54 Nucleated RBCs # 0.0 /100WBC 05/17/23 04:54 PT 15.70 SECONDS (12.1-14.9) H 05/14/23 02:09 INR 1.20 (0.8-1.2) 05/14/23 02:09 D-Dimer 2.34 ug/mLFEU (0-0.59) H 05/13/23 21:49 Specimen Type Arterial 05/13/23 19:43 Sample Site Radial, right 05/13/23 19:43 ABG pH 7.43 (7.35-7.45) 05/13/23 19:43 ABG pCO2 36.2 mmHg (35-45) 05/13/23 19:43 ABG pO2 60.1 mmHg (80.0-100.0) L 05/13/23 19:43 ABG PO2/FiO2 Ratio 0 05/13/23 19:43 ABG HCO3 24.2 mmol/L (22-26) 05/13/23 19:43 ABG O2 Saturation 93.3 05/13/23 19:43 ABG Base Excess 0.1 mmol/L (-2.0-2.0) 05/13/23 19:43 Shahzad Test Pos 05/13/23 19:43 A-a O2 Gradient 5.7 mmHg (5-10) 05/13/23 19:43 Hematocrit 26.2 % (37-47) L 05/13/23 19:43 Hgb O2 Saturation 90.8 % (95-100) L 05/13/23 19:43 Carboxyhemoglobin 1.8 %THgb (0.4-20.1) 05/13/23 19:43 Methemoglobin 0.9 % (0.4-1.5) 05/13/23 19:43 Total Hemoglobin 8.5 g/dL (12-16) L 05/13/23 19:43 Sodium 141.0 mmol/L (131-143) 05/13/23 19:43 Potassium 3.7 mmol/L (3.5-5.0) 05/13/23 19:43 Glucose 118.0 mg/dL (70-115) H 05/13/23 19:43 Ionized Calcium 1.2 mmol/L (1.1-1.4) 05/13/23 19:43 O2 Delivery Device None 05/13/23 19:43 FiO2 21.0 % 05/13/23 19:43 Casino Cage Supervisor ID [email or web address] 05/13/23 19:43 Sodium 141 mmol/L (136-145) 05/17/23 04:54 Potassium 2.8 mmol/L (3.5-5.1) L* 05/17/23 04:54 Chloride 106 mmol/L (98-107) 05/17/23 04:54 Carbon Dioxide 25 mmol/L (22-29) 05/17/23 04:54 Anion Gap 12.8 (5-19) 05/17/23 04:54 BUN 12 mg/dL (8-23) 05/17/23 04:54 Creatinine 0.7 mg/dL (0.5-0.9) 05/17/23 04:54 GFR Calculation 83.0 mL/min (90-130) L 05/17/23 04:54 Glucose 111 mg/dL (65-115) 05/17/23 04:54 POC Glucose 150 mg/dL (70-110) H 05/15/23 00:54 Calculated Osmolality 292 mOsm/kg (285-295) 05/17/23 04:54 Lactic Acid 1.4 mmol/L (0.5-2.2) 05/13/23 21:49 Lactate 0.9 mmol/L (0.5-2.2) 05/14/23 02:09 Calcium 8.4 mg/dL (8.5-10.5) L 05/17/23 04:54 Phosphorus 2.9 mg/dL (2.5-4.5) 05/14/23 02:09 Magnesium 1.6 mg/dL (1.7-2.3) L 05/14/23 02:09 Total Bilirubin 0.2 mg/dL (0.15-1.2) 05/16/23 04:36 AST 21 U/L (0-32) 05/16/23 04:36 ALT < 5 U/L (0-33) 05/16/23 04:36 Alkaline Phosphatase 89 U/L (35-105) 05/16/23 04:36 Creatine Kinase 32 U/L (26-192) 05/14/23 02:09 Troponin T Baseline 12 ng/L (0-10) H 05/14/23 09:31 Troponin T 120 Minute 11.41 ng/L (0-10) H 05/14/23 12:14 Delta Troponin T -0.59 ABS# (0-10) L 05/14/23 12:14 Troponin T Hi Sens 6Hr 21.51 ng/L (0-10) H 05/14/23 20:12 Troponin T Hi Sens 6Hr Delta 9.51 ng/L (0-12) 05/14/23 20:12 C-Reactive Protein 81.0 mg/L (0.0-4.9) H 05/13/23 19:50 NT-Pro-B Natriuret Pep 1124 pg/mL (0-125) H 05/14/23 02:09 Total Protein 6.0 g/dL (6.6-8.7) L 05/16/23 04:36 Albumin 2.9 g/dL (3.5-5.2) L 05/16/23 04:36 Globulin 3.1 g/dL (1.3-4.6) 05/16/23 04:36 Procalcitonin 0.06 ng/mL (0-0.5) 05/13/23 19:50 Urine Color Yellow (Yellow) 05/14/23 02:59 Urine Appearance Clear (CLEAR) 05/14/23 02:59 Urine pH 7 (5-7) 05/14/23 02:59 Ur Specific [place] 1.005 (1.005-1.030) 05/14/23 02:59 Urine Protein Neg (Negative) 05/14/23 02:59 Urine Glucose (UA) Norm (Normal) 05/14/23 02:59 Urine Ketones Negative (Negative) 05/14/23 02:59 Urine Blood Neg (Negative) 05/14/23 02:59 Urine Nitrate Negative (Negative) 05/14/23 02:59 Urine Bilirubin Neg (Negative) 05/14/23 02:59 Urine Urobilinogen Neg mg/dL (Negative) 05/14/23 02:59 Ur Leukocyte Esterase Negative (Negative) 05/14/23 02:59 Vancomycin Trough 11.1 ug/mL (10-15) 05/16/23 23:28 Adenovirus (PCR) Not detected (NOT DETECT) 05/13/23 21:34 C. pneumoniae DNA (PCR) Not detected (NOT DETECT) 05/13/23 21:34 Coronavirus 229E (PCR) Not detected (NOT DETECT) 05/13/23 21:34 Human Metapneumovir PCR Not detected (NOT DETECT) 05/13/23 21:34 Influenza A (H1) PCR Not detected (NOT DETECT) 05/13/23 21:34 Influ A (H1/09) PCR Not detected (NOT DETECT) 05/13/23 21:34 Influenza A (H3) PCR Not detected (NOT DETECT) 05/13/23 21:34 Influenza Type A (PCR) Not detected (NOT DETECT) 05/13/23 21:34 Influenza Type B (PCR) Not detected (NOT DETECT) 05/13/23 21:34 M. pneumoniae (PCR) Not detected (NOT DETECT) 05/13/23 21:34 Parainfluenza 1 (PCR) Not detected (NOT DETECT) 05/13/23 21:34 Parainfluenza 2 (PCR) Not detected (NOT DETECT) 05/13/23 21:34 Parainfluenza 3 (PCR) Not detected (NOT DETECT) 05/13/23 21:34 Parainfluenza 4 (PCR) Not detected (NOT DETECT) 05/13/23 21:34 RSV Type A (PCR) Not detected (NOT DETECT) 05/13/23 21:34 RSV Type B (PCR) Not detected (NOT DETECT) 05/13/23 21:34 Entero/Rhino (PCR) Not detected (NOT DETECT) 05/13/23 21:34 SARS-CoV-2 (PCR) Not detected (NOT DETECT) 05/13/23 21:34 SARS-CoV-2 Ag (Rapid) negative (Negative) 05/17/23 11:00 Blood Type O Positive 05/14/23 12:14 Rho(D) Type Rh positive 05/14/23 12:14 Antibody Screen Negative 05/14/23 12:14 Crossmatch See Detail 05/14/23 12:14 Vitals Last Vital Signs Temp 97.8 F 05/17/23 12:19 Pulse 73 05/17/23 12:19 Resp 17 05/17/23 16:22 BP 186/74 05/17/23 12:19 Pulse Ox 98 05/17/23 12:19 O2 Del Method Room Air 05/17/23 12:19 O2 Flow Rate 2 05/14/23 18:30 FiO2 35 05/14/23 13:00 Discharge Plan Discharge Patient Disposition: Xfer SNF Condition: Stable Prescriptions: New sucralfate 1 gram Tablet 1 g PO AC&BEDTIME Qty: 120 0RF pantoprazole 40 mg Tablet,Delayed Release (Dr/Ec) 40 mg PO BID Qty: 112 1RF doxycycline hyclate 100 mg tablet 100 mg PO BID 7 Days Qty: 14 0RF amoxicillin-pot clavulanate 875-125 mg tablet 1 tab PO BID Qty: 14 0RF magnesium 200 mg tablet 200 mg PO DAILY Qty: 10 0RF potassium chloride 10 mEq tablet extended release 10 meq PO DAILY Qty: 30 0RF escitalopram oxalate 20 mg tablet 20 mg PO DAILY Qty: 60 0RF Xanax 0.5 mg tablet 0.25 mg PO BID PRN (Reason: anxiety) Qty: 30 0RF Continued gabapentin 300 mg capsule 300 mg PO TID Qty: 90 5RF promethazine 12.5 mg tablet 12.5 mg PO BID methotrexate sodium 25 mg/mL solution 20 mg SUBCUT .Q7days Qty: 10 1RF folic acid 1 mg tablet 1 mg PO DAILY Qty: 90 3RF (DME) insulin syringes (disposable) 1 mL syringe See Rx Instructions .ROUTE .MEDSUPPLY Qty: 25 1RF Rx Instructions: As directed levothyroxine 112 mcg tablet 112 mcg PO QAM Qty: 90 1RF (DME) Bone growth stimulator See Rx Instructions .Route .MEDSUPPLY Qty: 1 0RF Rx Instructions: As directed (DME) Bone growth stimulator See Rx Instructions .Route .MEDSUPPLY Qty: 1 0RF Rx Instructions: As directed baclofen 10 mg tablet 10 mg PO BID PRN (Reason: Muscle Spasm) 30 Days Qty: 30 0RF oxycodone 5 mg tablet 10 mg PO Q6H PRN (Reason: pain) 7 Days Qty: 40 0RF latanoprost 0.005 % drops 1 drp ophthalmic (eye) QPM prednisone 10 mg tablet 5 mg PO DAILY furosemide 40 mg tablet 40 mg PO DAILY PRN (Reason: Edema) albuterol sulfate [Ventolin HFA] 90 mcg/actuation HFA aerosol inhaler 1 inh inhalation Q6H PRN (Reason: shortness of breath or wheezing) ropinirole 5 mg tablet 5 mg PO TID ondansetron 8 mg tablet,disintegrating 8 mg PO Q8H PRN (Reason: nausea/vomiting) Discontinued diazepam [Valium] 5 mg tablet 5 mg PO BID PRN (Reason: anxiety) Qty: 14 0RF Discharge Orders: Discharge Order (Routine); Ordered 05/17/23 Ordered By: Rika Bianchi Referrals: [facility] [Outside] Ryan Hung DO [Physician] - 05/28/23 9:15 am Discharge Diet: Advance as tolerated Discharge Activity: Limit activity as instructed Patient Instructions: Opioid Safety Activity Restrictions/Additional Instructions: Thank you for choosing [facility] for your care! The following is a list of instructions, from your provider, to follow upon your discharge to ensure you have the optimal recovery from your recent injury or surgery. Anterior Cervical Discectomy and Fusion: What to Expect at Home Your Recovery Follow-up care is a rapp part of your treatment and safety. Be sure to make and go to all appointments, and call your doctor if you are having problems. If you do not already have a follow-up appointment made, call office in the next 1-3 days to make follow up appointment for 2 weeks at [phone]. It is also a good idea to know your test results and keep a list of the medicines you take. You can expect your neck to feel stiff or sore after surgery. This should improve in the weeks after surgery. But it may take 4 to 6 months for you to get better completely. You may have trouble sitting or standing in one position for very long and may need pain medicine in the weeks after your surgery. It may take 4 to 6 weeks to get back to your usual activities, but it may depend on what kind of surgery you had. Your throat will feel sore and it may be difficult to swallow for the first 3 days after your surgery. As long as you can get liquids down without difficulty, this should slowly improve, otherwise call our office or seek medical attention if it becomes increasingly difficult to get anything down including liquids. Avoid hot liquids for first 3-5 days. Soothing foods/liquids such as jello, pudding, and luke warm soups are recommended until swallowing improves. Staying elevated will also help, it's advised you keep propped up at while sleeping to help reduce the swelling. You may use an ice pack directly on your incision or around it on the front of your neck, using a cloth to protect your skin; and a heating pad to the back of your neck as needed. Do not use over the counter anti-inflammatory medications (Ibuprofen, Motrin, Aleve, Advil, etc) Taking these meds after having a fusion can delay fusion rates, we recommend you avoid them for the first 3 months after your surgery[address] Dr. Hung may advise you to work with a physical therapist to strengthen the muscles around your neck and back - this will be discussed at your follow - up appointments. The pain or numbness you were having in your arms before surgery should get better or go away completely. This care sheet gives you a general idea about how long it will take for you to recover. But each person recovers at a different pace. Follow the steps below to get better as quickly as possible. How can you care for yourself at home? Activity ? Rest when you feel tired. Getting enough sleep will help you recover. ? Try to walk each day. Start by walking a little more than you did the day before. Bit by bit, increase the amount you walk. Walking boosts blood flow and helps prevent pneumonia and constipation. Walking may also decrease your muscle soreness after surgery. ? No lifting anything that is more that 5 pounds. This may include heavy grocery bags and milk containers, a heavy briefcase or backpack, cat litter or dog food bags, a child, or a vacuum finish cleaner. ? Avoid strenuous activities, such as bicycle riding, jogging, weightlifting, or aerobic exercise, until your doctor says it is okay. ? Do not drive until your follow-up visit after your surgery, or until your doctor says it isokay. ? Avoid taking long car trips for 2 to 4 weeks after surgery. Your neck may become tired and painful from sitting too long in one position. ? You will probably need to take 4 to 6 weeks off from work. It depends on the type of work you do and how you feel. ? You may have sex as soon as you feel able, but avoid positions that put stress on your neck or cause pain. Diet ? You can eat your normal diet. If your stomach is upset, try bland, l ow-fat foods like plain rice, broiled chicken, toast, and yogurt ? Drink plenty of fluids. If you have kidney, heart, or liver disease and have to limit fluids, talk with your doctor before you increase the amount of fluids you drink. ? You may notice that your bowel movements are not regular right after your surgery. This is common. Try to avoid constipation and straining with bowel movements. You may want to take a fiber supplement every day. If you have not had a bowel movement after a couple of days, ask your doctor about taking a mild laxative. Medicines ? Take pain medicines exactly as directed. 1. If Dr. Hung gave you a prescription medicine for pain, take lt as prescribed. 2. Do not take two or more pain medicines at the same time unless the doctor told you to. Many pain medicines have acetaminophen, which is Tylenol. Too much acetaminophen {Tylenol) can be harmful. 3. If you think your pain pill is making you sick to your stomach: 4. Take your pills after meals (unless your doctor has told you not to). 5. Ask your Dr. for a different pain pill. Incisioncare ? Remove your dressing 48hours after your surgery. Ok to shower and get the incision wet. Do not overtly wash your incision. When done, pad dry, leave open to air thereafter. Avoid creams and ointments directly on your incision. ? Your sutures in the incision will dissolve and fall out on their own. ? Keep the area clean and dry. You may cover it with a gauze bandage if it weeps or rubs against clothing; if you choose to do this, change the dressing everyday. Other instructions ? Use a heating pad, hot water bottle, or gentle massage on your back to reduce stiffness. Avoid putting heat on your incision When should you call for help? ? Call 911 anytime you think you may need emergency care. For example, call if: ? You pass out (lose consciousness). ? You have sudden chest pain and shortness of breath, or you cough upblood. ? You cannot swallow. ? You have severe pain in your neck or back. ? Call your Dr. or seek immediate medical care if: ? You have pain that does not get better after you take pain pills. ? You have loose stitches, or your incision comes open. ? You have blood or fluid draining from the incision. ? You have signs of infection, such as: 1. Increased pain, swelling, warmth, or redness. 2. Red streaks leading from the site. 3. Pus draining from the site. 4. Swollen lymph nodes in your neck or armpits. 5. A fever. ? You have severe pain in your arms. ? You have new or increased weakness or numbness in your arms. ? Watch closely for any changes in your health, and be sure to contact your doctor if: ? You do not have a bowel movement after taking a laxative. Discharge Attestations Time Spent in Discharge Care*: less than 30 min Status at Discharge: Cognitive status at discharge: cognitively intact , Behavioral status at discharge: cooperative , Quality Metrics Clinical Quality Measures [ No reported AMI, CVA or VTE this stay] Coding Level of Care Code Acute Code for Chg Fwd Diagnoses Status post cervical spinal fusion Z98.1
== END 2023-05-17 16:24 | disposition skilled nursing facility (03) | DRG 460 ==
LOC: MEDSURG 14:59 → ICU 05-13 20:43 → MEDSURG 05-16 15:25
PROVIDERS: Family Medicine; Internal Medicine; Admitting Provider Orthopaedic Surgery; PCP Physician Assistant; Visit Provider Orthopaedic Surgery
PROC: 0RG20A0 Fusion of 2 or more Cervical Vertebral Joints with Interbody Fusion Device, Anterior Approach, Anterior Column, Open Approach (ICD-10-PCS; principal; 2023-05-12 10:45)
PROC: 0RG607J Fusion of Thoracic Vertebral Joint with Autologous Tissue Substitute, Posterior Approach, Anterior Column, Open Approach (ICD-10-PCS; principal; 2023-05-14 11:30)
PROC: 06H03DZ Insertion of Intraluminal Device into Inferior Vena Cava, Percutaneous Approach (ICD-10-PCS; CPT 37191; principal; 2023-05-15 09:30)
DX: T84.226A Displacement of internal fixation device of vertebrae, initial encounter (principal); I82.411 Acute embolism and thrombosis of right femoral vein; M96.842 Postprocedural seroma of a musculoskeletal structure following a musculoskeletal system procedure; I82.431 Acute embolism and thrombosis of right popliteal vein; Y79.8 Miscellaneous orthopedic devices associated with adverse incidents, not elsewhere classified; K21.9 Gastro-esophageal reflux disease without esophagitis; E11.22 Type 2 diabetes mellitus with diabetic chronic kidney disease; N18.30 Chronic kidney disease, stage 3 unspecified; E03.9 Hypothyroidism, unspecified; M05.89 Other rheumatoid arthritis with rheumatoid factor of multiple sites; G25.81 Restless legs syndrome; F41.9 Anxiety disorder, unspecified; F32.A Depression, unspecified; E78.5 Hyperlipidemia, unspecified; D50.9 Iron deficiency anemia, unspecified; Z86.718 Personal history of other venous thrombosis and embolism; Z11.52 Encounter for screening for COVID-19; Z87.11 Personal history of peptic ulcer disease; Z87.891 Personal history of nicotine dependence
CPT/HCPCS: 36010; 36415; 36416; 37191; 51702; 70490; 71045; 71275; 72040; 72125; 72141; 76000; 80048; 80051; 80053; 80202; 81003; 82330; 82550; 82805; 82962; 83605; 83735; 83880; 84100; 84145; 84484; 85014; 85018; 85025; 85378; 85610; 86140; 86850; 86900; 86920; 87426; 87486; 87581; 87633; 93005; 93306; 93970; 94640; 96372; 96376; 97116; 97162; 97163; 97530; 99152; 99153; C1713; C1769; C1880; C1887; C1894; C9113; C9359; J0131; J0690; J1100; J1170; J1644; J1885; J1940; J2060; J2250; J2371; J2405; J2543; J2704; J3010; J3370; J3480; J3490; J7030; J7050; J7120; J7512; P9016; Q0169; Q9967

== ENCOUNTER → 2023-05-25 10:48 | Outpatient (BNVA) | payer MEDICARE, OTHER, SELFPAY | PROVIDERS: PCP Physician Assistant; Visit Provider Orthopaedic Surgery | DX: Z98.1 Arthrodesis status (principal); Z47.89 Encounter for other orthopedic aftercare; G89.18 Other acute postprocedural pain | CPT/HCPCS: 99024 ==

== ENCOUNTER 2023-05-29 08:51 | Emergency (ER) | payer MEDICARE, OTHER, SELFPAY ==
[2023-05-29 08:52] VITALS: BP 102/56; PULSE 79; RESP 16; TEMP 36.9; O2SAT 92
--- NOTE | 2023-05-29 08:55 | CTR_ITS ---
PROCEDURE INFORMATION: Exam: CT Head Without Contrast Exam date and time: 05/29/2023 9:16 AM Age: 68 years old Clinical indication: Injury or trauma; Fall; Blunt trauma (contusions or hematomas); Prior surgery; Surgery date: 1-6 months; Surgery type: Neck; Patient HX: Seizure; Additional info: Fall, head injury TECHNIQUE: Imaging protocol: Computed tomography of the head without contrast. Radiation optimization: All CT scans at this facility use at least one of these dose optimization techniques: automated exposure control; mA and/or kV adjustment per patient size (includes targeted exams where dose is matched to clinical indication); or iterative reconstruction. COMPARISON: CT head wo con* [id number] 03/01/2023 8:27 AM RADIATION DOSE METRICS: Total DLP (mGy-cm): 1053.08 FINDINGS: Brain: Mineralization of bilateral basal ganglia, age-related. Mild form of chronic ischemic small vessel disease. No intracranial bleed. No large territorial infarct. Cerebral ventricles: No ventriculomegaly. Pituitary gland and sella: There is a partially empty sella. Paranasal sinuses: Visualized sinuses are unremarkable. No fluid levels. Mastoid air cells: Visualized mastoid air cells are well aerated. Bones/joints: Unremarkable. No acute fracture. Soft tissues: Unremarkable. Vasculature: There are calcifications of the vertebral arteries and internal carotid arteries. Other findings: There is mild diffuse volume loss, age-related. CT/CT head wo con* [id number] IMPRESSION: No intracranial posttraumatic changes.
--- NOTE | 2023-05-29 08:55 | XRR_ITS ---
PROCEDURE INFORMATION: Exam: XR Abdomen Exam date and time: 05/29/2023 9:18 AM Age: 68 years old Clinical indication: Constipation; Prior surgery; Surgery date: 1-6 months; Surgery type: Neck and back; Additional info: Abdominal pain TECHNIQUE: Imaging protocol: Radiologic exam of the abdomen. Views: 3 or more views. COMPARISON: CT abdomen pelvis w con* [id number] 02/27/2023 7:53 PM FINDINGS: Gastrointestinal tract: Above average fecal loading in the colon. Intraperitoneal space: Normal. No free air. Organs: Cholecystectomy clips. Vasculature: IVC stent. Bones/joints: Cervical spine orthopedic hardware. Post vertebroplasty at L4 and L5. XR/XR acute abdomen series [id number] IMPRESSION: Above average fecal loading in the colon, suggestive of constipation. No bowel obstruction.
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
[2023-05-29 09:31] LABS: SARS Covid-2 Antigen negative (Negative)
[2023-05-29 09:34] LABS: Influenza A by IFA negative (Negative); Influenza B by IFA negative (Negative)
[2023-05-29 10:37] LABS: Basophils % 0.3 %; Eosinophils # 0.2 10^3/uL (0.0-0.8); Eosinophils % 2.8 %; Lymphocytes # 1.2 10^3/uL (0.8-4.8); Lymphocytes % 16.6 %; Mean Corpuscular HGB Conc 30.4 g/dL (30-55); Mean Corpuscular Hemoglobin 23.9 pg (27-33); Mean Corpuscular Volume 78.6 fl (85-98); Mean Platelet Volume 9.7 fL (7.4-10.4); Monocytes # 0.5 10^3/uL (0.2-0.9); Neutrophils # 5.38 10^3/uL (1.8-7.7); Neutrophils % 72.9 %; Nucleated Red Blood Cells % 0 %; Platelet Count 429 10^3/cmm (157-399); Red Blood Count 3.18 10^6/uL (3.85-5.65); Red Cell Distribution Width 18.6 % (12.1-15.1); White Blood Count 7.39 10^3/uL (3.29-11.43)
[2023-05-29 10:58] LABS: Alanine Aminotransferase < 5 U/L (0-33); Albumin Level 3.4 g/dL (3.5-5.2); Alkaline Phosphatase 130 U/L (35-105); Aspartate Amino Transferase 15 U/L (0-32); Blood Urea Nitrogen 12 mg/dL (8-23); C Reactive Protein 11.8 mg/L (0.0-4.9); Calcium 9.1 mg/dL (8.5-10.5); Carbon Dioxide 33 mmol/L (22-29); Chloride 96 mmol/L (98-107); Globulin 3.6 g/dL (1.3-4.6); Glomerular Filtration Rate 71.1 mL/min (90-130); Glucose 116 mg/dL (65-115); Lactic Sepsis W/Reflex 1.7 mmol/L (0.5-2.2); Osmolality Calculated 287 mOsm/kg (285-295); Sodium 138 mmol/L (136-145); Total Bilirubin 0.2 mg/dL (0.15-1.2)
[2023-05-29 11:30] VITALS: BP 103/57; PULSE 62; O2SAT 90
[2023-05-29] MEDS: ketorolac 30 mg/mL INJ 15 MG IVP (11:42)
[2023-05-29 12:00] VITALS: BP 104/60; PULSE 66; O2SAT 94
[2023-05-29 12:00] LABS: Urine Color Light yellow (Yellow)
[2023-05-29 12:01] LABS: Add Urine Culture? No; Bacteria Urine TRACE /hpf; Bilirubin Urine Neg (Negative); Blood Urine Neg (Negative); Glucose Urine UA Norm (Normal); Ketones Urine Negative (Negative); Leukocyte Esterase Urine Negative (Negative); Nitrate Urine Negative (Negative); Protein Urine Neg (Negative); Squamous Epithelial Cell Urine RARE /hpf (0-5); Sulfosalicylic Acid Urine Negative (Negative); Urine Appearance Clear (CLEAR); Urobilinogen Urine Norm (Negative); WBC Urine RARE /hpf (0-5); pH Urine 8 (5-7)
[2023-05-29] MEDS: HYDROmorphone 1 mg/mL INJ 1 mL IVP (12:17)
[2023-05-29] MEDS: LORazepam 2 mg/mL INJ 10 mL MDV 1 MG IV (12:17)
[2023-05-29 12:23] VITALS: BP 112/60; PULSE 61; O2SAT 91
[2023-05-29 12:31] VITALS: BP 112/60; PULSE 58; O2SAT 94
== END 2023-05-29 12:34 | disposition home or self-care (01) ==
PROVIDERS: Emergency Provider Emergency Medicine; PCP Physician Assistant
DX: R56.9 Unspecified convulsions (principal); K59.00 Constipation, unspecified; Z11.52 Encounter for screening for COVID-19; N18.30 Chronic kidney disease, stage 3 unspecified; E78.5 Hyperlipidemia, unspecified; Z87.891 Personal history of nicotine dependence
CPT/HCPCS: 51702; 70450; 74022; 80053; 81001; 83605; 85025; 86140; 87426; 87804; 96374; 96375; 99285; J1170; J1885; J2060

== ENCOUNTER 2023-05-31 02:01 | Emergency (ER) | payer MEDICARE, OTHER, SELFPAY ==
[2023-05-31 02:03] VITALS: BP 114/65; PULSE 74; RESP 16; TEMP 37.1; O2SAT 96; BMI 21.6
--- NOTE | 2023-05-31 02:15 | ECG_ITS ---
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 [email or web address]
--- NOTE | 2023-05-31 02:16 | W.ED.SEIZURE ---
HPI - Seizure General: Chief Complaint: Seizure Stated Complaint: SEIZURE Time Seen by Provider: 05/31/23 02:06 Source: patient and EMS Mode of arrival: EMS Limitations: no limitations History of Present Illness: HPI Narrative: 68-year-old female history of neck surgery on the to remove loose screws from a fall. Patient's been in rehab detention since then she has had chronic neck pain since then as well. Patient was seen recently for constipation she is brought here from the detention for possible seizure when EMS arrived she had no seizure-like activity she had a tremor which she has here as well she complains of neck pain denies any other headache or fever. Associated symptoms: Deny chest pain, chills or fever(s) Review of Systems Const: Denies: fever(s), chills, body aches or change in appetite Eyes: Denies: blurry vision or eye discomfort ENMT: Denies: throat pain or dental pain Card: Denies: chest pain Resp: Denies: dyspnea GI: Reports: constipation; Denies: abdominal pain, nausea, vomiting or diarrhea Musc: Reports: neck pain; Denies: back pain Skin/Breast: Denies: rash Neuro: Denies: headache(s) Psych: Denies: depression Jl/Lymph: Denies: easy bruising All/Imm: Denies: urticaria PFSH ED PFSH: Medical History Allergic rhinitis due to allergen RLS (restless legs syndrome) Substance or medication-induced sleep disorder, insomnia type Anxiety and depression High risk medication use Seropositive rheumatoid arthritis of multiple sites Extrapyramidal and movement disorder CKD (chronic kidney disease) stage 3, GFR 30-59 ml/min Lung nodule, solitary Prediabetes Hyperlipidemia Iron deficiency anemia Hypothyroidism Surgical History History of cholecystectomy History of appendectomy History of delivery History of hysterectomy with bilateral oophorectomy History of ankle surgery left Previous back surgery Social History Smoking and tobacco/nicotine status: former use of tobacco/nicotine Quit status (tobacco/nicotine): has quit using Year quit tobacco: 2009 Former quit date comment: Smoked for 9 months Alcohol intake: current Alcohol intake frequency: holidays/special occasions only Substance/Drug Use: never Physical Exam Const: COMMON NORMALS: no acute distress, patient oriented x3 and healthy appearing HENMT: COMMON NORMALS: normocephalic and atraumatic HEAD & SCALP: normocephalic and atraumatic Eye: COMMON NORMALS: Equal, round and reactive pupils present and EOMs intact bilaterally PUPIL: Yes Equal, round and reactive pupils present Neck/C-Spine: COMMON NORMALS: full ROM and supple Chest: COMMONS NORMALS: normal inspection of the chest and normal palpation of entire chest wall Resp: COMMON NORMALS: normal respiratory effort, No retractions, No use of accessory muscles and clear to auscultation bilaterally AUSCULTATION: clear to auscultation bilaterally Cardio: COMMON NORMALS: regular rate, regular rhythm and No murmurs present (Cardio) RATE: regular rate RHYTHM: regular rhythm GI: COMMON NORMALS: Normal to inspection, nondistended, normoactive bowel sounds present, Soft to palpation, non-tender and no masses PALPATION: Yes Soft to palpation Extremity: COMMON NORMALS: normal to inspection and full ROM Neuro: COMMON NORMALS: patient oriented x3, moves all extremities and no focal motor deficits Psych: COMMON NORMALS: mental status grossly normal, Normal thought process present and cooperative THOUGHT PROCESS: Normal thought process present Skin: COMMON NORMALS: no rashes or lesions noted and no wounds GENERAL SKIN EXAM: no rashes or lesions noted Course Vital Signs: Vital signs: Vital Signs Temperature 98.7 F 05/31/23 02:03 Pulse Rate 70 05/31/23 04:00 Respiratory Rate 17 05/31/23 04:00 Blood Pressure 99/65 05/31/23 04:00 Pulse Oximetry 93 05/31/23 04:00 Oxygen Delivery Me thod Room Air 05/31/23 04:00 MDM - Seizure MDM Narrative Medical decision making narrative: Patient presents with postop pain possible seizure-like activity in the detention she had no signs of seizure she did have a tremor her blood work here is normal she is stable for discharge back to the detention Lab Data 05/31/23 02:40 05/31/23 02:40 Labs: Laboratory Results WBC 6.24 10^3/uL (3.29-11.43) 05/31/23 02:40 RBC 3.09 10^6/uL (3.85-5.65) L 05/31/23 02:40 Hgb 7.30 g/dL (11.27-16.99) L 05/31/23 02:40 Hct 24.5 % (36-47) L 05/31/23 02:40 MCV 79.3 fl (85-98) L 05/31/23 02:40 MCH 23.6 pg (27-33) L 05/31/23 02:40 MCHC 29.8 g/dL (30-55) L 05/31/23 02:40 RDW 19.1 % (12.1-15.1) H 05/31/23 02:40 Plt Count 400 10^3/cmm (157-399) H 05/31/23 02:40 MPV 9.7 fL (7.4-10.4) 05/31/23 02:40 Neut % (Auto) 59.0 % 05/31/23 02:40 Lymph % (Auto) 29.0 % 05/31/23 02:40 [place] % (Auto) 8.7 % 05/31/23 02:40 Eos % (Auto) 2.7 % 05/31/23 02:40 Baso % (Auto) 0.3 % 05/31/23 02:40 Neut # (Auto) 3.68 10^3/uL (1.8-7.7) 05/31/23 02:40 Lymph # (Auto) 1.8 10^3/uL (0.8-4.8) 05/31/23 02:40 [place] # (Auto) 0.5 10^3/uL (0.2-0.9) 05/31/23 02:40 Eos # (Auto) 0.2 10^3/uL (0.0-0.8) 05/31/23 02:40 Baso # (Auto) 0.0 10^3/uL (0.0-0.1) 05/31/23 02:40 Nucleated RBC % (auto) 0 % 05/31/23 02:40 Nucleated RBCs # 0.0 /100WBC 05/31/23 02:40 Sodium 140 mmol/L (136-145) 05/31/23 02:40 Potassium 4.2 mmol/L (3.5-5.1) 05/31/23 02:40 Chloride 102 mmol/L (98-107) 05/31/23 02:40 Carbon Dioxide 29 mmol/L (22-29) 05/31/23 02:40 Anion Gap 13.2 (5-19) 05/31/23 02:40 BUN 15 mg/dL (8-23) 05/31/23 02:40 Creatinine 0.9 mg/dL (0.5-0.9) 05/31/23 02:40 GFR Calculation 62.1 mL/min (90-130) L 05/31/23 02:40 Glucose 103 mg/dL (65-115) 05/31/23 02:40 Calculated Osmolality 291 mOsm/kg (285-295) 05/31/23 02:40 Calcium 8.8 mg/dL (8.5-10.5) 05/31/23 02:40 Total Bilirubin 0.2 mg/dL (0.15-1.2) 05/31/23 02:40 AST 12 U/L (0-32) 05/31/23 02:40 ALT < 5 U/L (0-33) 05/31/23 02:40 Alkaline Phosphatase 118 U/L (35-105) H 05/31/23 02:40 Total Protein 6.6 g/dL (6.6-8.7) 05/31/23 02:40 Albumin 3.2 g/dL (3.5-5.2) L 05/31/23 02:40 Globulin 3.4 g/dL (1.3-4.6) 05/31/23 02:40 No radiology studies performed this visit EKG Data EKG 1: Attestation: I personally reviewed and interpreted this EKG as follows: EKG interpretation date: 05/31/23 EKG interpretation time: 03:16 Interpretation: nsr hr [address] or t wave abnormalities qrs 82 qtc 388 Discharge Plan Discharge Patient Disposition: Home Clinical Impression: Neck pain Condition: Stable Prescriptions: No Action gabapentin 300 mg capsule 300 mg PO TID Qty: 90 5RF promethazine 12.5 mg tablet 12.5 mg PO BID methotrexate sodium 25 mg/mL solution 20 mg SUBCUT .Q7days Qty: 10 1RF Rx Instructions: ON MONDAYS (DME) insulin syringes (disposable) 1 mL syringe See Rx Instructions .ROUTE .MEDSUPPLY Qty: 25 1RF Rx Instructions: As directed levothyroxine 112 mcg tablet 112 mcg PO QAM Qty: 90 1RF (DME) Bone growth stimulator See Rx Instructions .Route .MEDSUPPLY Qty: 1 0RF Rx Instructions: As directed (DME) Bone growth stimulator See Rx Instructions .Route .MEDSUPPLY Qty: 1 0RF Rx Instructions: As directed baclofen 10 mg tablet 10 mg PO BID PRN (Reason: Muscle Spasm) 30 Days Qty: 30 0RF ropinirole 5 mg tablet 5 mg PO TID Qty: 270 0RF latanoprost 0.005 % drops 1 drp ophthalmic (eye) BEDTIME albuterol sulfate [Ventolin HFA] 90 mcg/actuation HFA aerosol inhaler 1 inh inhalation Q6H PRN (Reason: shortness of breath or wheezing) ondansetron 8 mg tablet,disintegrating 8 mg PO Q8H PRN (Reason: nausea/vomiting) sucralfate 1 gram Tablet 1 g PO AC&BEDTIME Qty: 120 0RF pantoprazole 40 mg Tablet,Delayed Release (Dr/Ec) 40 mg PO BID Qty: 112 1RF acetaminophen 325 mg Tablet 650 mg PO Q6H PRN (Reason: pain/increased temp) prednisone 5 mg Tablet 5 mg PO DAILY Milk of Magnesia 400 mg/5 mL Suspension See Rx Instructions .ROUTE .COMPLEX PRN (Reason: Constipation) Rx Instructions: Take 30 mL orally every 72 hours as needed if no bm in 3 days. Do not give to renal patients, go to dulcolax orders. Dulcolax (bisacodyl) 10 mg Suppository See Rx Instructions .ROUTE .COMPLEX PRN (Reason: Constipation) Rx Instructions: Give 10 mg rectally daily as needed,if can't take tablets by mouth if no results from milk of magnesia. Fleet Enema 19-7 gram/118 mL Enema See Rx Instructions .ROUTE .COMPLEX PRN (Reason: Constipation) Rx Instructions: Give 118 mL rectally once daily as needed if no results from milk of magnesia or dulcolax. morphine 15 mg tablet extended release 15 mg PO BID Dulcolax (bisacodyl) 5 mg Tablet,Delayed Release (Dr/Ec) See Rx Instructions .ROUTE .COMPLEX PRN (Reason: Constipation) Rx Instructions: Take 10 mg by mouth daily as needed if no results from milk of magnesia. scopolamine base 1 mg over 3 days patch 3 day 1 patch topical Q3D PRN (Reason: nausea/motinon sickness) dexlansoprazole 30 mg capsule,biphase delayed releas 30 mg PO BEDTIME Xanax 0.5 mg tablet 0.5 mg PO BID PRN (Reason: anxiety) oxycodone 5 mg tablet 10 mg PO Q4H PRN (Reason: pain) folic acid 1 mg tablet 1 mg PO DAILY magnesium citrate Solution 296 ml PO ONCE Qty: 296 0RF Miralax 17 gram/dose powder 17 g PO DAILY Qty: 510 0RF Rx Instructions: Take 1-2 scoops daily for the next 3 months to keep stools soft glycerin (adult) Suppository 1 supp DC DAILY PRN (Reason: constipation) Qty: 12 0RF Discharge Orders: Discharge ED (Routine); Ordered 05/31/23 Ordered By: Coral Oconnor Referrals: Diana Garcia PA [Primary Care Provider] - 4-7 days Discharge Diet: Advance as tolerated Discharge Activity: Resume usual activity Patient Instructions: Neck Pain (ED) Coding Level of Care Code ED Jigger Machine Operator for Maribel Sweet
[2023-05-31 02:48] LABS: Basophils % 0.3 %; Eosinophils # 0.2 10^3/uL (0.0-0.8); Eosinophils % 2.7 %; Hematocrit 24.5 % (36-47); Lymphocytes # 1.8 10^3/uL (0.8-4.8); Mean Corpuscular HGB Conc 29.8 g/dL (30-55); Mean Corpuscular Hemoglobin 23.6 pg (27-33); Mean Corpuscular Volume 79.3 fl (85-98); Mean Platelet Volume 9.7 fL (7.4-10.4); Monocytes # 0.5 10^3/uL (0.2-0.9); Monocytes % 8.7 %; Neutrophils # 3.68 10^3/uL (1.8-7.7); Nucleated Red Blood Cells % 0 %; Platelet Count 400 10^3/cmm (157-399); Red Blood Count 3.09 10^6/uL (3.85-5.65); Red Cell Distribution Width 19.1 % (12.1-15.1); White Blood Count 6.24 10^3/uL (3.29-11.43)
[2023-05-31] MEDS: ondansetron 2 mg/ML SDV 2 mL 4 MG IVP (02:56)
[2023-05-31] MEDS: morphine 4 mg/mL SDV 1 mL IVP (03:02)
[2023-05-31 03:03] VITALS: BP 110/65; PULSE 67; RESP 20; O2SAT 95
[2023-05-31 03:10] LABS: Alanine Aminotransferase < 5 U/L (0-33); Albumin Level 3.2 g/dL (3.5-5.2); Alkaline Phosphatase 118 U/L (35-105); Aspartate Amino Transferase 12 U/L (0-32); Blood Urea Nitrogen 15 mg/dL (8-23); Calcium 8.8 mg/dL (8.5-10.5); Carbon Dioxide 29 mmol/L (22-29); Chloride 102 mmol/L (98-107); Globulin 3.4 g/dL (1.3-4.6); Glomerular Filtration Rate 62.1 mL/min (90-130); Glucose 103 mg/dL (65-115); Osmolality Calculated 291 mOsm/kg (285-295); Sodium 140 mmol/L (136-145); Total Bilirubin 0.2 mg/dL (0.15-1.2); Total Protein 6.6 g/dL (6.6-8.7)
[2023-05-31 03:13] LABS: Anion Gap 13.2 (5-19); Potassium 4.2 mmol/L (3.5-5.1)
[2023-05-31 04:00] VITALS: BP 99/65; PULSE 70; RESP 17; O2SAT 93
[2023-05-31] MEDS: HYDROmorphone 1 mg/mL INJ 1 mL 0.5 MG IVP (04:02)
[2023-05-31 05:00] VITALS: BP 114/93; PULSE 73; RESP 13; O2SAT 95
== END 2023-05-31 05:02 | disposition home or self-care (01) ==
PROVIDERS: Emergency Provider Emergency Medicine; PCP Physician Assistant
DX: M54.2 Cervicalgia (principal); Z87.891 Personal history of nicotine dependence; N18.30 Chronic kidney disease, stage 3 unspecified; E78.5 Hyperlipidemia, unspecified
CPT/HCPCS: 80053; 85025; 93005; 96374; 96375; 99284; J1170; J2270; J2405

== ENCOUNTER → 2023-06-08 12:46 | Outpatient (BNVA) | payer MEDICARE, OTHER, SELFPAY | PROVIDERS: PCP Physician Assistant; Visit Provider Orthopaedic Surgery | DX: Z98.1 Arthrodesis status (principal); Z47.89 Encounter for other orthopedic aftercare | CPT/HCPCS: 72040; 99024 ==

== ENCOUNTER 2023-06-13 08:55 | Emergency (ER) | payer MEDICARE, OTHER, SELFPAY ==
[2023-06-13 09:02] VITALS: BP 134/84; PULSE 70; TEMP 37.1; O2SAT 94; BMI 20.9
--- NOTE | 2023-06-13 09:11 | ED_ITS ---
HPI - Neck Pain/Injury 2 General: Chief Complaint: Neck Pain/Injury Stated Complaint: NECK PAIN S/P SURGERY Time Seen by Provider: 06/13/23 08:58 History of Present Illness: Patient presents to the ER with complaints of severe neck pain possible seizures today. Upon me entering the room patient is sound asleep with her at bedside. Patient's says she may have missed her nighttime dose of her oxycodone and took it about 7 AM this morning he thinks it may have to start kicking in now as she is sleeping. He says she does have a history of seizures about 3 weeks ago but they thought it was due to the morphine not agreeing with her otherwise she has no history of epileptic seizures. Upon my entering the room patient is lying on her right side sleeping soundly with her neck collar on. Review of Systems 2 General: Reports: 10 or more systems reviewed and unremarkable except in HPI and below PFSH ED 2 PFSH: Medical History Pre-operative clearance DVT (deep venous thrombosis) Pneumonia Acute anemia Hematoma complicating a procedure Cervical adenopathy GI bleed Osteoarthritis, shoulder Cervical spondylosis with myelopathy GERD with esophagitis Allergic rhinitis due to allergen RLS (restless legs syndrome) Substance or medication-induced sleep disorder, insomnia type Anxiety and depression High risk medication use Seropositive rheumatoid arthritis of multiple sites Extrapyramidal and movement disorder CKD (chronic kidney disease) stage 3, GFR 30-59 ml/min Lung nodule, solitary Prediabetes Hyperlipidemia Iron deficiency anemia Hypothyroidism Surgical History Status post cervical spinal fusion History of cholecystectomy History of appendectomy History of delivery History of hysterectomy with bilateral oophorectomy History of ankle surgery left Previous back surgery Social History Smoking and tobacco/nicotine status: former use of tobacco/nicotine Quit status (tobacco/nicotine): has quit using Year quit tobacco: 2009 Former quit date comment: Smoked for 9 months Alcohol intake: current Alcohol intake frequency: holidays/special occasions only Substance/Drug Use: never Physical Exam 2 Const: COMMON NORMALS: no acute distress, average body habitus, patient oriented x3, no limitations, healthy appearing, alert and well nourished HENMT: COMMON NORMALS: normocephalic, atraumatic, hearing grossly normal bilaterally, external ears normal, EAC's normal, Normal external nose present and moist oral mucous membranes HEAD & SCALP: normocephalic and atraumatic NOSE: Normal external nose present EXTERNAL EAR: Yes external ears normal EXTERNAL AUDITORY CANAL: EAC's normal Neck/C-Spine: COMMON NORMALS: no JVD OTHER: In cervical collar Chest: COMMONS NORMALS: normal inspection of the chest and normal palpation of entire chest wall Resp: COMMON NORMALS: normal respiratory effort, No retractions, No use of accessory muscles and clear to auscultation bilaterally AUSCULTATION: clear to auscultation bilaterally Cardio: COMMON NORMALS: no JVD, regular rate, regular rhythm, S1 normal heart sound present, S2 normal heart sound present, No gallops present (Cardio), No clicks present (Cardio), No murmurs present (Cardio) and No rub (Cardio) R ATE: regular rate RHYTHM: regular rhythm HEART SOUNDS: S1 normal heart sound present and S2 normal heart sound present GI: COMMON NORMALS: Normal to inspection, nondistended, normoactive bowel sounds present, Soft to palpation, non-tender, No hepatosplenomegaly present and no masses PALPATION: Yes Soft to palpation and Yes No hepatosplenomegaly present Neuro: COMMON NORMALS: patient oriented x3 SENSORIUM/ORIENTATION: Yes alert Course 2 ED course: Both times I went in to evaluate the patient she was sound asleep in no acute distress. The second time I went in there I did wake her up to perform a physical evaluation which then she started moaning and carrying on saying she was in 10 out of 10 pain that she just wants some pain medicine that she cannot swallow the pills and that the pills are not working and if were not going to do anything forward just to send her back to the [place] [facility]. Patient previously refused pain medicine when the nurse was in there and she was awake. Vital Signs: Vital signs: Vital Signs Temperature 98.8 F 06/13/23 09:02 Pulse Rate 88 06/13/23 11:10 Blood Pressure 134/84 06/13/23 09:02 Pulse Oximetry 96 06/13/23 11:10 Oxygen Delivery Me thod Room Air 06/13/23 09:02 MDM - Neck Pain/Injury Medical Decision Making Lab work was obtained that included CBC CMP magnesium and prolactin all of which was essentially benign. Patient was offered pain medicine several times but kept declining and asking for Dilaudid by name. Patient was sound asleep both times I went in there to perform physical exam and when woke up she began to carry on how she was in 10 out of 10 pain and none of her pain medicine has been working. Patient then said if you are not going to do anything for me just send me back to the [place] [facility]. Patient will be discharged back to the [place] [facility]. Per record review patient seen Dr. Phillip in approximately 06/08/2023 and he increased her pain medicine and muscle relaxer medicines back to presurgical dosages. Differential Diagnosis Unlikely vertebral artery dissection, torticollis, cervical spondylosis or strain of neck muscle Medical Records I reviewed the patient's medical records. Lab Data I reviewed the patient's lab results. 06/13/23 09:45 06/13/23 09:45 Laboratory Results WBC 6.24 10^3/uL (3.29-11.43) 06/13/23 09:45 RBC 3.43 10^6/uL (3.85-5.65) L 06/13/23 09:45 Hgb 8.00 g/dL (11.27-16.99) L 06/13/23 09:45 Hct 26.8 % (36-47) L 06/13/23 09:45 MCV 78.1 fl (85-98) L 06/13/23 09:45 MCH 23.3 pg (27-33) L 06/13/23 09:45 MCHC 29.9 g/dL (30-55) L 06/13/23 09:45 RDW 18.8 % (12.1-15.1) H 06/13/23 09:45 Plt Count 307 10^3/cmm (157-399) 06/13/23 09:45 MPV 9.6 fL (7.4-10.4) 06/13/23 09:45 Neut % (Auto) 58.2 % 06/13/23 09:45 Lymph % (Auto) 28.7 % 06/13/23 09:45 [place] % (Auto) 8.0 % 06/13/23 09:45 Eos % (Auto) 3.7 % 06/13/23 09:45 Baso % (Auto) 0.6 % 06/13/23 09:45 Neut # (Auto) 3.63 10^3/uL (1.8-7.7) 06/13/23 09:45 Lymph # (Auto) 1.8 10^3/uL (0.8-4.8) 06/13/23 09:45 [place] # (Auto) 0.5 10^3/uL (0.2-0.9) 06/13/23 09:45 Eos # (Auto) 0.2 10^3/uL (0.0-0.8) 06/13/23 09:45 Baso # (Auto) 0.0 10^3/uL (0.0-0.1) 06/13/23 09:45 Nucleated RBC % (auto) 0 % 06/13/23 09:45 Nucleated RBCs # 0.0 /100WBC 06/13/23 09:45 Sodium 140 mmol/L (136-145) 06/13/23 09:45 Potassium 3.8 mmol/L (3.5-5.1) 06/13/23 09:45 Chloride 103 mmol/L (98-107) 06/13/23 09:45 Carbon Dioxide 28 mmol/L (22-29) 06/13/23 09:45 Anion Gap 12.8 (5-19) 06/13/23 09:45 BUN 15 mg/dL (8-23) 06/13/23 09:45 Creatinine 0.9 mg/dL (0.5-0.9) 06/13/23 09:45 GFR Calculation 62.1 mL/min (90-130) L 06/13/23 09:45 Glucose 90 mg/dL (65-115) 06/13/23 09:45 Calculated Osmolality 290 mOsm/kg (285-295) 06/13/23 09:45 Calcium 9.3 mg/dL (8.5-10.5) 06/13/23 09:45 Magnesium 1.7 mg/dL (1.7-2.3) 06/13/23 09:45 Total Bilirubin 0.2 mg/dL (0.15-1.2) 06/13/23 09:45 AST 17 U/L (0-32) 06/13/23 09:45 ALT 7 U/L (0-33) 06/13/23 09:45 Alkaline Phosphatase 102 U/L (35-105) 06/13/23 09:45 Creatine Kinase 26 U/L (26-192) 06/13/23 09:45 Total Protein 6.8 g/dL (6.6-8.7) 06/13/23 09:45 Albumin 3.4 g/dL (3.5-5.2) L 06/13/23 09:45 Globulin 3.4 g/dL (1.3-4.6) 06/13/23 09:45 Prolactin 1.65 ng/mL (4.8-23.3) L 06/13/23 09:45 No radiology studies performed this visit Discharge Plan Discharge Patient Disposition: Home Clinical Impression: Neck pain Condition: Stable Prescriptions: No Action gabapentin 300 mg capsule 300 mg PO TID Qty: 90 5RF promethazine 12.5 mg tablet 12.5 mg PO BID methotrexate sodium 25 mg/mL solution 20 mg SUBCUT .Q7days Qty: 10 1RF Rx Instructions: ON MONDAYS (DME) insulin syringes (disposable) 1 mL syringe See Rx Instructions .ROUTE .MEDSUPPLY Qty: 25 1RF Rx Instructions: As directed levothyroxine 112 mcg tablet 112 mcg PO QAM Qty: 90 1RF (DME) Bone growth stimulator See Rx Instructions .Route .MEDSUPPLY Qty: 1 0RF Rx Instructions: As directed (DME) Bone growth stimulator See Rx Instructions .Route .MEDSUPPLY Qty: 1 0RF Rx Instructions: As directed baclofen 10 mg tablet 10 mg PO BID PRN (Reason: Muscle Spasm) 30 Days Qty: 30 0RF ropinirole 5 mg tablet 5 mg PO TID Qty: 270 0RF albuterol sulfate 90 mcg/actuation HFA aerosol inhaler See Rx Instructions .ROUTE .COMPLEX Qty: 8.5 5RF Dose Instruction: INHALE 1 PUFF BY MOUTH EVERY 6 HOURS NEEDED FOR SHORTNESS OF BREATH/WHEEZING Rx Instructions: INHALE 1 PUFF BY MOUTH EVERY 6 HOURS NEEDED FOR SHORTNESS OF BREATH/WHEEZING latanoprost 0.005 % drops 1 drp ophthalmic (eye) BEDTIME ondansetron 8 mg tablet,disintegrating 8 mg PO Q8H PRN (Reason: nausea/vomiting) sucralfate 1 gram Tablet 1 g PO AC&BEDTIME Qty: 120 0RF pantoprazole 40 mg Tablet,Delayed Release (Dr/Ec) 40 mg PO BID Qty: 112 1RF prednisone 5 mg Tablet 5 mg PO DAILY Milk of Magnesia 400 mg/5 mL Suspension See Rx Instructions .ROUTE .COMPLEX PRN (Reason: Constipation) Rx Instructions: Take 30 mL orally every 72 hours as needed if no bm in 3 days. Do not give to renal patients, go to dulcolax orders. Dulcolax (bisacodyl) 10 mg Suppository See Rx Instructions .ROUTE .COMPLEX PRN (Reason: Constipation) Rx Instructions: Give 10 mg rectally daily as needed,if can't take tablets by mouth if no results from milk of magnesia. Fleet Enema 19-7 gram/118 mL Enema See Rx Instructions .ROUTE .COMPLEX PRN (Reason: Constipation) Rx Instructions: Give 118 mL rectally once daily as needed if no results from milk of magnesia or dulcolax. Dulcolax (bisacodyl) 5 mg Tablet,Delayed Release (Dr/Ec) See Rx Instructions .ROUTE .COMPLEX PRN (Reason: Constipation) Rx Instructions: Take 10 mg by mouth daily as needed if no results from milk of magnesia. scopolamine base 1 mg over 3 days patch 3 day 1 patch topical Q3D PRN (Reason: nausea/motinon sickness) dexlansoprazole 30 mg capsule,biphase delayed releas 30 mg PO BEDTIME Xanax 0.5 mg tablet 0.5 mg PO BID PRN (Reason: anxiety) oxycodone 5 mg tablet 10 mg PO Q4H PRN (Reason: pain) folic acid 1 mg tablet 1 mg PO DAILY magnesium citrate Solution 296 ml PO ONCE Qty: 296 0RF Miralax 17 gram/dose powder 17 g PO DAILY Qty: 510 0RF Rx Instructions: Take 1-2 scoops daily for the next 3 months to keep stools soft glycerin (adult) Suppository 1 supp DC DAILY PRN (Reason: constipation) Qty: 12 0RF Discharge Orders: Discharge ED (Routine); Ordered 06/13/23 Ordered By: Mario James Referrals: Diana Garcia PA [Primary Care Provider] - 1 week Patient Instructions: Neck Pain (ED) Activity Restrictions/Additional Instructions: Please take all your pain medicine as directed. Please call Dr. Hung's office and discuss this postsurgical neck pain with him. Otherwise please follow-up with your family practice physician for further evaluation and treatment. Coding Level of Care Code ED It Business Analyst for Maribel Sweet
[2023-06-13 09:51] LABS: Basophils % 0.6 %; Eosinophils # 0.2 10^3/uL (0.0-0.8); Eosinophils % 3.7 %; Hematocrit 26.8 % (36-47); Lymphocytes # 1.8 10^3/uL (0.8-4.8); Lymphocytes % 28.7 %; Mean Corpuscular HGB Conc 29.9 g/dL (30-55); Mean Corpuscular Hemoglobin 23.3 pg (27-33); Mean Corpuscular Volume 78.1 fl (85-98); Mean Platelet Volume 9.6 fL (7.4-10.4); Monocytes # 0.5 10^3/uL (0.2-0.9); Neutrophils # 3.63 10^3/uL (1.8-7.7); Neutrophils % 58.2 %; Nucleated Red Blood Cells % 0 %; Platelet Count 307 10^3/cmm (157-399); Red Blood Count 3.43 10^6/uL (3.85-5.65); Red Cell Distribution Width 18.8 % (12.1-15.1); White Blood Count 6.24 10^3/uL (3.29-11.43)
--- NOTE | 2023-06-13 09:59 | PC.NURSE ---
Addendum entered by Usha Leonard RN 06/13/23 10:02: notified Original Note: PT requesting pain medication. PT was offered pain med orally and refused stating I cant swollow pills PT takes pills daily at [facility]. PT was offered IM morphine and refused stating I can only take diladid.
[2023-06-13 10:21] LABS: Alanine Aminotransferase 7 U/L (0-33); Albumin Level 3.4 g/dL (3.5-5.2); Alkaline Phosphatase 102 U/L (35-105); Anion Gap 12.8 (5-19); Aspartate Amino Transferase 17 U/L (0-32); Blood Urea Nitrogen 15 mg/dL (8-23); Calcium 9.3 mg/dL (8.5-10.5); Carbon Dioxide 28 mmol/L (22-29); Chloride 103 mmol/L (98-107); Creatine Phosphokinase 26 U/L (26-192); Creatinine Clr Calc Pharmacy 55.1036; Globulin 3.4 g/dL (1.3-4.6); Glomerular Filtration Rate 62.1 mL/min (90-130); Glucose 90 mg/dL (65-115); Magnesium 1.7 mg/dL (1.7-2.3); Osmolality Calculated 290 mOsm/kg (285-295); Potassium 3.8 mmol/L (3.5-5.1); Prolactin 1.65 ng/mL (4.8-23.3); Sodium 140 mmol/L (136-145); Total Bilirubin 0.2 mg/dL (0.15-1.2); Total Protein 6.8 g/dL (6.6-8.7)
[2023-06-13 10:41] VITALS: PULSE 55; O2SAT 96
--- NOTE | 2023-06-13 11:08 | PC.NURSE ---
pt refused to sign DC paperwork
[2023-06-13 11:10] VITALS: PULSE 88; O2SAT 96
== END 2023-06-13 11:41 | disposition home or self-care (01) ==
PROVIDERS: Emergency Provider Emergency Medicine; PCP Physician Assistant
DX: M54.2 Cervicalgia (principal); Z87.891 Personal history of nicotine dependence; N18.9 Chronic kidney disease, unspecified; E78.5 Hyperlipidemia, unspecified
CPT/HCPCS: 36415; 80053; 82550; 83735; 84146; 85025; 99283

== ENCOUNTER 2023-06-14 11:08 | Emergency (ER) | payer MEDICARE, OTHER, SELFPAY ==
[2023-06-14] VITALS (9 sets, daily range): BP systolic 108–144; BP diastolic 71–93; PULSE 51–90; RESP 16–18; TEMP 36.3; O2SAT 87–98; BMI 17.7
--- NOTE | 2023-06-14 11:14 | XRR_ITS ---
PROCEDURE INFORMATION: Exam: XR Chest Exam date and time: 06/14/2023 11:33 AM Age: 68 years old Clinical indication: Injury or trauma; Fall; Blunt trauma (contusions or hematomas) TECHNIQUE: Imaging protocol: Radiologic exam of the chest. Views: 1 view. COMPARISON: CT angio chest PE protcl [id number] 05/13/2023 10:00 PM FINDINGS: Lungs: No acute infiltrate detected. Pleural spaces: No significant pleural fluid. No pneumothorax detected. Heart/Mediastinum: Heart size is stable compared to prior exams. No pulmonary vascular congestion. Diaphragm: Very subtle elevation of left hemidiaphragm represents change from prior studies, nonspecific. Bones/joints: The bones appear diffusely osteopenic. Nondisplaced fracture may not be detectable. XR/XR chest 1V portable [id number] IMPRESSION: No focal consolidation or vascular congestion. Nonspecific subtle elevation of left hemidiaphragm compared to prior exams.
--- NOTE | 2023-06-14 11:14 | CT_ITS ---
WS: [id number] CT CERVICAL TRAUMA TECHNIQUE: Noncontrast CT of the cervical spine with coronal and sagittal reformatted images. CLINICAL INFORMATION: fall COMPARISON: CT 05/12/2023 and MRI 05/13/2023 DLP: 159.[address] scans at [facility] use at least one of these dose optimization techniques: automated e xposure control; mA and/or kV adjustment per patient size (includes targeted exams where dose is matc hed to clinical indication); or iterative reconstruction. FINDINGS: Images degraded due to beam hardening artifact from extensive hardware fusion. Alignment appears unchanged compared to the recent studies. Postoperative changes ACDF C3-C6. Dorsal pedicle screws and interconnecting rods extending from C2-T2. Interconnecting rods appear intact. Alden migue laminectomy defects C3-C6. Dorsal fusion is new since 05/12/2023. Previously described fluid colle ction in the anterior neck has essentially resolved. Expected postoperative changes in the laminectom y defects. Spinal canal appears patent where visualized. Lung apices are well aerated. Mastoid air cells are well aerated. Normal CT lung ring. Normal dens. IMPRESSION: No evidence of acute fracture or dislocation.
--- NOTE | 2023-06-14 11:26 | ED_ITS ---
HPI - Anxiety 2 General: Chief Complaint: Anxiety Stated Complaint: anxiety Time Seen by Provider: 06/14/23 11:09 Source: patient and EMS Mode of arrival: EMS Limitations: no limitations History of Present Illness: 68-year-old female who is here from a [facility] [place] [facility] she is status post cervical spine fusion month ago patient states she had a fall yesterday at the [place] [facility] she been having right rib pain and neck pain since that fall. She rates the pain a 9 out of 10 denies any head injury Associated symptoms: Reports chest pain; Deny chills, fever(s), headache(s), nausea or vomiting Review of Systems 2 Const: Denies: fever(s), chills, body aches or change in appetite ENMT: Denies: throat pain or dental pain Card: Reports: chest pain Resp: Denies: dyspnea GI: Denies: abdominal pain, nausea, vomiting or diarrhea Musc: Reports: neck pain; Denies: back pain Skin/Breast: Denies: rash Neuro: Denies: headache(s) PFSH ED 2 PFSH: Medical History Pre-operative clearance DVT (deep venous thrombosis) Pneumonia Acute anemia Hematoma complicating a procedure Cervical adenopathy GI bleed Osteoarthritis, shoulder Cervical spondylosis with myelopathy GERD with esophagitis Allergic rhinitis due to allergen RLS (restless legs syndrome) Substance or medication-induced sleep disorder, insomnia type Anxiety and depression High risk medication use Seropositive rheumatoid arthritis of multiple sites Extrapyramidal and movement disorder CKD (chronic kidney disease) stage 3, GFR 30-59 ml/min Lung nodule, solitary Prediabetes Hyperlipidemia Iron deficiency anemia Hypothyroidism Surgical History Status post cervical spinal fusion History of cholecystectomy History of appendectomy History of delivery History of hysterectomy with bilateral oophorectomy History of ankle surgery left Previous back surgery Social History Smoking and tobacco/nicotine status: former use of tobacco/nicotine Quit status (tobacco/nicotine): has quit using Year quit tobacco: 2009 Former quit date comment: Smoked for 9 months Alcohol intake: current Alcohol intake frequency: holidays/special occasions only Substance/Drug Use: never Physical Exam 2 Const: COMMON NORMALS: no acute distress, patient oriented x3 and healthy appearing HENMT: COMMON NORMALS: normocephalic and atraumatic HEAD & SCALP: n ormocephalic and atraumatic Eye: COMMON NORMALS: Equal, round and reactive pupils present and EOMs intact bilaterally PUPIL: Yes Equal, round and reactive pupils present Neck/C-Spine: OTHER: Patient's in c-collar from her surgery Chest: COMMONS NORMALS: normal inspection of the chest OTHER: Tenderness over right chest wall Resp: COMMON NORMALS: normal respiratory effort, No retractions, No use of accessory muscles and clear to auscultation bilaterally AUSCULTATION: clear to auscultation bilaterally Cardio: COMMON NORMALS: regular rate, regular rhythm and No murmurs present (Cardio) RATE: regular rate RHYTHM: regular rhythm GI: COMMON NORMALS: Normal to inspection, nondistended, normoactive bowel sounds present, Soft to palpation, non-tender and no masses PALPATION: Yes Soft to palpation Extremity: COMMON NORMALS: normal to inspection and full ROM Neuro: COMMON NORMALS: patient oriented x3, moves all extremities and no focal motor deficits Psych: COMMON NORMALS: mental status grossly normal, Normal thought process present and cooperative THOUGHT PROCESS: Normal thought process present Skin: COMMON NORMALS: no rashes or lesions noted and no wounds GENERAL SKIN EXAM: no rashes or lesions noted Course 2 Vital Signs: Vital signs: Vital Signs Temperature 97.4 F L 06/14/23 18:17 Pulse Rate 51 L 06/14/23 18:17 Respiratory Rate 16 06/14/23 18:17 Blood Pressure 108/93 06/14/23 18:17 Pulse Oximetry 98 06/14/23 18:17 Oxygen Delivery Me thod Room Air 06/14/23 16:49 MDM - Anxiety Medical Decision Making Patient presents with neck pain is chronic in nature she also some chest wall pain from a fall imaging here is normal blood work is normal she is stable for discharge back to the [place] [facility] she is follow-up with PCP and return if worsening. Medical Records I reviewed the patient's medical records. Lab Data I reviewed the patient's lab results. 06/14/23 12:32 06/14/23 12:48 Radiology Impressions Chest X-Ray 06/14/23 11:14 IMPRESSION: No focal consolidation or vascular congestion. Nonspecific subtle elevation of left hemidiaphragm compared to prior exams. Laboratory Results WBC 7.70 10^3/uL (3.29-11.43) 06/14/23 12:32 RBC 3.31 10^6/uL (3.85-5.65) L 06/14/23 12:32 Hgb 7.70 g/dL (11.27-16.99) L 06/14/23 12:32 Hct 26.4 % (36-47) L 06/14/23 12:32 MCV 79.8 fl (85-98) L 06/14/23 12:32 MCH 23.3 pg (27-33) L 06/14/23 12:32 MCHC 29.2 g/dL (30-55) L 06/14/23 12:32 RDW 18.8 % (12.1-15.1) H 06/14/23 12:32 Plt Count 306 10^3/cmm (157-399) 06/14/23 12:32 MPV 9.3 fL (7.4-10.4) 06/14/23 12:32 Neut % (Auto) 79.1 % 06/14/23 12:32 Lymph % (Auto) 13.5 % 06/14/23 12:32 [place] % (Auto) 5.1 % 06/14/23 12:32 Eos % (Auto) 1.2 % 06/14/23 12:32 Baso % (Auto) 0.6 % 06/14/23 12:32 Neut # (Auto) 6.09 10^3/uL (1.8-7.7) 06/14/23 12:32 Lymph # (Auto) 1.0 10^3/uL (0.8-4.8) 06/14/23 12:32 [place] # (Auto) 0.4 10^3/uL (0.2-0.9) 06/14/23 12:32 Eos # (Auto) 0.1 10^3/uL (0.0-0.8) 06/14/23 12:32 Baso # (Auto) 0.1 10^3/uL (0.0-0.1) 06/14/23 12:32 Nucleated RBC % (auto) 0 % 06/14/23 12:32 Nucleated RBCs # 0.0 /100WBC 06/14/23 12:32 Sodium 143 mmol/L (136-145) 06/14/23 12:48 Potassium 4.5 mmol/L (3.5-5.1) 06/14/23 12:48 Chloride 104 mmol/L (98-107) 06/14/23 12:48 Carbon Dioxide 26 mmol/L (22-29) 06/14/23 12:48 Anion Gap 17.5 (5-19) 06/14/23 12:48 BUN 16 mg/dL (8-23) 06/14/23 12:48 Creatinine 1.2 mg/dL (0.5-0.9) H 06/14/23 12:48 GFR Calculation 44.5 mL/min (90-130) L 06/14/23 12:48 Glucose 115 mg/dL (65-115) 06/14/23 12:48 Calculated Osmolality 298 mOsm/kg (285-295) H 06/14/23 12:48 Calcium 9.3 mg/dL (8.5-10.5) 06/14/23 12:48 Total Bilirubin 0.2 mg/dL (0.15-1.2) 06/14/23 12:48 AST 18 U/L (0-32) 06/14/23 12:48 ALT 8 U/L (0-33) 06/14/23 12:48 Alkaline Phosphatase 111 U/L (35-105) H 06/14/23 12:48 Total Protein 7.2 g/dL (6.6-8.7) 06/14/23 12:48 Albumin 3.6 g/dL (3.5-5.2) 06/14/23 12:48 Globulin 3.6 g/dL (1.3-4.6) 06/14/23 12:48 Lipase 16 U/L (13-60) 06/14/23 12:48 All radiology interpretation(s) finalized by discharge EKG Data EKG 1: I personally reviewed and interpreted this EKG as follows: EKG interpretation date: 06/14/23 EKG interpretation time: 13:59 Interpretation: Chest X-Ray 06/14/23 11:14 IMPRESSION: No focal consolidation or vascular congestion. Nonspecific subtle elevation of left hemidiaphragm compared to prior exams. nsr hr [address] or t wave abnormalities qrs 84 qtc 401 Other EKG comments: Chest X-Ray 06/14/23 11:14 IMPRESSION: No focal consolidation or vascular congestion. Nonspecific subtle elevation of left hemidiaphragm compared to prior exams. Discharge Plan Discharge Patient Disposition: Home Clinical Impression: Neck pain, Chest wall pain, Fall Condition: Stable Prescriptions: No Action promethazine 12.5 mg tablet 12.5 mg PO BID (DME) insulin syringes (disposable) 1 mL syringe See Rx Instructions .ROUTE .MEDSUPPLY Qty: 25 1RF Rx Instructions: As directed levothyroxine 112 mcg tablet 112 mcg PO QAM Qty: 90 1RF (DME) Bone growth stimulator See Rx Instructions .Route .MEDSUPPLY Qty: 1 0RF Rx Instructions: As directed (DME) Bone growth stimulator See Rx Instructions .Route .MEDSUPPLY Qty: 1 0RF Rx Instructions: As directed ropinirole 5 mg tablet 5 mg PO TID Qty: 270 0RF latanoprost 0.005 % drops 1 drp ophthalmic (eye) BEDTIME gabapentin 600 mg Tablet 600 mg PO TID baclofen 10 mg tablet 10 mg PO Q6H PRN (Reason: Muscle Spasm) albuterol sulfate 90 mcg/actuation HFA aerosol inhaler 1 puff inhalation Q6H PRN (Reason: Shortness Of Breath) Tylenol 325 mg Tablet 650 mg PO Q6H PRN (Reason: Pain) Percocet 5-325 mg Tablet 1 tab PO Q4H PRN (Reason: only utilize if out of oxycodone) lorazepam 2 mg/mL Syringe 0.5 mg IM .STAT ONE TIME ondansetron 8 mg tablet,disintegrating 8 mg PO Q8H PRN (Reason: nausea/vomiting) sucralfate 1 gram Tablet 1 g PO AC&BEDTIME Qty: 120 0RF pantoprazole 40 mg Tablet,Delayed Release (Dr/Ec) 40 mg PO BID Qty: 112 1RF prednisone 5 mg Tablet 5 mg PO DAILY magnesium hydroxide [Milk of Magnesia] 400 mg/5 mL Suspension See Rx Instructions .ROUTE .COMPLEX PRN (Reason: Constipation) Rx Instructions: Take 30 mL orally every 72 hours as needed if no bm in 3 days. Do not give to renal patients, go to dulcolax orders. bisacodyl [Dulcolax (bisacodyl)] 10 mg Suppository See Rx Instructions .ROUTE .COMPLEX PRN (Reason: Constipation) Rx Instructions: Give 10 mg rectally daily as needed,if can't take tablets by mouth if no results from milk of magnesia. Fleet Enema 19-7 gram/118 mL Enema See Rx Instructions .ROUTE .COMPLEX PRN (Reason: Constipation) Rx Instructions: Give 118 mL rectally once daily as needed if no results from milk of magnesia or dulcolax. bisacodyl [Dulcolax (bisacodyl)] 5 mg Tablet,Delayed Release (Dr/Ec) See Rx Instructions .ROUTE .COMPLEX PRN (Reason: Constipation) Rx Instructions: Take 10 mg by mouth daily as needed if no results from milk of magnesia. scopolamine base 1 mg over 3 days patch 3 day 1 patch topical Q3D PRN (Reason: nausea/motinon sickness) dexlansoprazole 30 mg capsule,biphase delayed releas 30 mg PO BEDTIME alprazolam [Xanax] 0.5 mg tablet 0.5 mg PO Q4H PRN (Reason: anxiety) oxycodone 5 mg tablet 5 - 10 mg PO Q4H PRN (Reason: pain) folic acid 1 mg tablet 1 mg PO DAILY polyethylene glycol 3350 [Miralax] 17 gram/dose powder 17 g PO DAILY Qty: 510 0RF Rx Instructions: Take 1-2 scoops daily for the next 3 months to keep stools soft glycerin (adult) Suppository 1 supp [place] DAILY PRN (Reason: constipation) Qty: 12 0RF Discharge Orders: Discharge ED (Routine); Ordered 06/14/23 Ordered By: Coral Oconnor Referrals: Diana Garcia PA [Primary Care Provider] - 1-3 days Discharge Diet: Advance as tolerated Discharge Activity: Resume usual activity Patient Instructions: Fall Prevention (ED), Chest Wall Pain (ED) Coding Level of Care Code ED Criminal Judge for Maribel Sweet
[2023-06-14] MEDS: HYDROmorphone 1 mg/mL INJ 1 mL IM (11:36)
[2023-06-14] MEDS: ondansetron 2 mg/ML SDV 2 mL 4 MG IM (11:38)
[2023-06-14 12:40] LABS: Basophils # 0.1 10^3/uL (0.0-0.1); Basophils % 0.6 %; Eosinophils # 0.1 10^3/uL (0.0-0.8); Eosinophils % 1.2 %; Hematocrit 26.4 % (36-47); Lymphocytes % 13.5 %; Mean Corpuscular HGB Conc 29.2 g/dL (30-55); Mean Corpuscular Hemoglobin 23.3 pg (27-33); Mean Corpuscular Volume 79.8 fl (85-98); Mean Platelet Volume 9.3 fL (7.4-10.4); Monocytes # 0.4 10^3/uL (0.2-0.9); Monocytes % 5.1 %; Neutrophils # 6.09 10^3/uL (1.8-7.7); Neutrophils % 79.1 %; Nucleated Red Blood Cells % 0 %; Platelet Count 306 10^3/cmm (157-399); Red Blood Count 3.31 10^6/uL (3.85-5.65); Red Cell Distribution Width 18.8 % (12.1-15.1)
--- NOTE | 2023-06-14 13:24 | PC.PHAR ---
pt is from [facility] medications entered are from the pts mar and tar that was sent
[2023-06-14 13:25] LABS: Alanine Aminotransferase 8 U/L (0-33); Albumin Level 3.6 g/dL (3.5-5.2); Alkaline Phosphatase 111 U/L (35-105); Anion Gap 17.5 (5-19); Aspartate Amino Transferase 18 U/L (0-32); Blood Urea Nitrogen 16 mg/dL (8-23); Calcium 9.3 mg/dL (8.5-10.5); Carbon Dioxide 26 mmol/L (22-29); Chloride 104 mmol/L (98-107); Globulin 3.6 g/dL (1.3-4.6); Glomerular Filtration Rate 44.5 mL/min (90-130); Glucose 115 mg/dL (65-115); Lipase 16 U/L (13-60); Osmolality Calculated 298 mOsm/kg (285-295); Potassium 4.5 mmol/L (3.5-5.1); Sodium 143 mmol/L (136-145); Total Bilirubin 0.2 mg/dL (0.15-1.2); Total Protein 7.2 g/dL (6.6-8.7)
[2023-06-14] MEDS: HYDROmorphone 1 mg/mL INJ 1 mL IVP (13:26)
[2023-06-14] MEDS: haloperidol inj 5 mg/mL INJ 1 mL IVP (13:51)
== END 2023-06-14 18:17 | disposition home or self-care (01) ==
PROVIDERS: Emergency Provider Emergency Medicine; PCP Physician Assistant
DX: M54.2 Cervicalgia (principal); R07.89 Other chest pain; N18.30 Chronic kidney disease, stage 3 unspecified; E78.5 Hyperlipidemia, unspecified; Z87.891 Personal history of nicotine dependence; W19.XXXA Unspecified fall, initial encounter; Y92.129 Unspecified place in nursing home as the place of occurrence of the external cause
CPT/HCPCS: 36415; 71045; 72125; 80053; 83690; 85025; 96372; 96374; 96375; 99285; J1170; J1630; J2405

== ENCOUNTER → 2023-07-06 14:00 | Outpatient (BNVA) | payer MEDICARE, OTHER, SELFPAY | PROVIDERS: PCP Physician Assistant; Visit Provider Orthopaedic Surgery | DX: Z98.1 Arthrodesis status (principal) | CPT/HCPCS: 72040; 99024 ==

== ENCOUNTER → 2023-08-17 08:07 | Outpatient (BNVA) | payer MEDICARE, OTHER, SELFPAY | PROVIDERS: PCP Physician Assistant; Visit Provider Orthopaedic Surgery | DX: Z98.1 Arthrodesis status (principal) | CPT/HCPCS: 72040; 99024 ==

== ENCOUNTER 2023-09-02 14:29 | Emergency (ER) | payer MEDICARE, OTHER, SELFPAY ==
[2023-09-02 14:38] VITALS: BP 128/59; PULSE 62; RESP 17; TEMP 36.3; O2SAT 100; BMI 21.8
--- NOTE | 2023-09-02 15:36 | W.ED.GENADLT ---
HPI - General Adult General: Chief complaint: General Medical Stated complaint: jose peterson Time Seen by Provider: 09/02/23 15:34 History of Present Illness: 68-year-old female comes in today for complaints of increased neck pain, bilateral leg pain, vomiting since yesterday, and white stools with abdominal cramping. Patient reports history of neck surgery in May and a diagnosis of DVT. Patient is unable to take anticoagulants due to history of GI bleed and has IVC screening in place. Patient's other surgeries include gallbladder, appendix removal, hysterectomy, hiatal hernia repair, and orthopedic surgeries rating to the back and neck. Patient has been a previous tobacco user but reports stopping in 2009. Patient does occasionally drink alcohol on special occasions. Associated symptoms: Reports nausea and vomiting; Deny dyspnea Review of Systems General: Reports: 10 or more systems reviewed and unremarkable except in HPI and below Const: Denies: fever(s) Resp: Denies: dyspnea GI: Reports: nausea, vomiting and change in stool character : Denies: difficulty voiding PFS ED PFSH: Medical History GERD (gastroesophageal reflux disease) Pre-operative clearance DVT (deep venous thrombosis) Pneumonia Acute anemia Hematoma complicating a procedure Cervical adenopathy GI bleed Osteoarthritis, shoulder Cervical spondylosis with myelopathy GERD with esophagitis Allergic rhinitis due to allergen RLS (restless legs syndrome) Substance or medication-induced sleep disorder, insomnia type Anxiety and depression High risk medication use Seropositive rheumatoid arthritis of multiple sites Extrapyramidal and movement disorder CKD (chronic kidney disease) stage 3, GFR 30-59 ml/min Lung nodule, solitary Prediabetes Hyperlipidemia Iron deficiency anemia Hypothyroidism Surgical History Status post cervical spinal fusion History of cholecystectomy History of appendectomy History of delivery History of hysterectomy with bilateral oophorectomy History of ankle surgery left Previous back surgery Social History Smoking and tobacco/nicotine status: former use of tobacco/nicotine Quit status (tobacco/nicotine): has quit using Year quit tobacco: 2009 Former quit date comment: Smoked for 9 months Alcohol intake: current Alcohol intake frequency: holidays/special occasions only Substance/Drug Use: never Physical Exam Const: COMMON NORMALS: alert HENMT: COMMON NORMALS: normocephalic HEAD & SCALP: normocephalic Neck/C-Spine: CERVICAL SPINE: Yes Paracervical muscle tenderness Resp: COMMON NORMALS: normal respiratory effort and clear to auscultation bilaterally AUSCULTATION: clear to auscultation bilaterally Cardio: COMMON NORMALS: regular rate RATE: regular rate GI: COMMON NORMALS: Soft to palpation PALPATION: Yes Soft to palpation Back/Pelvis: COMMON NORMALS: thoracic and lumbar spine normal to inspection Extremity: COMMON NORMALS: no pedal edema Neuro: SENSORIUM/ORIENTATION: Yes alert Skin: COMMON NORMALS: turgor normal GENERAL SKIN EXAM: turgor normal Course Vital Signs: Vital signs: Vital Signs Temperature 97.4 F L 09/02/23 14:38 Pulse Rate 53 L 09/02/23 17:11 Respiratory Rate 18 09/02/23 17:11 Blood Pressure 137/50 09/02/23 17:11 Pulse Oximetry 100 09/02/23 17:11 Oxygen Delivery Me thod Room Air 09/02/23 14:38 [facility] - General Adult Medical Decision Making 68-year-old female comes in today for complaints of neck pain, abdominal pain, and lower leg pain. Patient has a chronic history of neck and back pain. Patient reports today she has had some nausea and change in her stool character. Patient reports her stools are white. Patient has a history of DVT in the lower extremity but it is managed with IVC filter due to her poor tolerance for anticoagulation due to history of GI bleeding. Patient appears nontoxic. Patient appears in moderate pain. Vital signs are normal. Differential diagnosis includes not limited to bowel obstruction, viral syndrome, constipation, bowel obstruction, exacerbation of chronic pain, malingering. CBC noted a hemoglobin 9.1 which is actually better than her prior exams. CMP is normal. Except for a potassium of 3.4. KUB noted no bowel obstruction or significant abnormalities. Bilateral lower extremities and have no increased swelling or redness. Patient was given Zofran, 1 L of IV fluid, and 25 mics of fentanyl with minimal relief of pain. Patient was then medicated with 1 mg of hydromorphone with better control of pain. No sign of severe illness or injury was noted. Patient was stable. Patient did admit that her pain specialist take off her medication for pain and half and since then she has been unable to tolerate her chronic pain. I recommended following up with primary care or pain care trainer for further management. Lab Data 09/02/23 14:45 09/02/23 14:45 Radiology Impressions KUB X-Ray 09/02/23 15:48 IMPRESSION: No acute findings. COMMENTS: For patients with an IVC filter, recommend assessment for a management plan for the patient's IVC filter. If there is no established management plan, recommend referral to an interventional clinician on a nonemergent basis for evaluation. Laboratory Results WBC 6.73 10^3/uL (3.29-11.43) 09/02/23 14:45 RBC 4.04 10^6/uL (3.85-5.65) 09/02/23 14:45 Hgb 9.10 g/dL (11.27-16.99) L 09/02/23 14:45 Hct 30.3 % (36-47) L 09/02/23 14:45 MCV 75.0 fl (85-98) L 09/02/23 14:45 MCH 22.5 pg (27-33) L 09/02/23 14:45 MCHC 30.0 g/dL (30-55) 09/02/23 14:45 RDW 16.7 % (12.1-15.1) H 09/02/23 14:45 Plt Count 318 10^3/cmm (157-399) 09/02/23 14:45 MPV 9.3 fL (7.4-10.4) 09/02/23 14:45 Neut % (Auto) 55.3 % 09/02/23 14:45 Lymph % (Auto) 31.5 % 09/02/23 14:45 [place] % (Auto) 8.6 % 09/02/23 14:45 Eos % (Auto) 3.7 % 09/02/23 14:45 Baso % (Auto) 0.6 % 09/02/23 14:45 Neut # (Auto) 3.72 10^3/uL (1.8-7.7) 09/02/23 14:45 Lymph # (Auto) 2.1 10^3/uL (0.8-4.8) 09/02/23 14:45 [place] # (Auto) 0.6 10^3/uL (0.2-0.9) 09/02/23 14:45 Eos # (Auto) 0.3 10^3/uL (0.0-0.8) 09/02/23 14:45 Baso # (Auto) 0.0 10^3/uL (0.0-0.1) 09/02/23 14:45 Nucleated RBC % (auto) 0 % 09/02/23 14:45 Nucleated RBCs # 0.0 /100WBC 09/02/23 14:45 Sodium 136 mmol/L (136-145) 09/02/23 14:45 Potassium 3.4 mmol/L (3.5-5.1) L 09/02/23 14:45 Chloride 103 mmol/L (98-107) 09/02/23 14:45 Carbon Dioxide 22 mmol/L (22-29) 09/02/23 14:45 Anion Gap 14.4 (5-19) 09/02/23 14:45 BUN 13 mg/dL (8-23) 09/02/23 14:45 Creatinine 0.9 mg/dL (0.5-0.9) 09/02/23 14:45 GFR Calculation 62.1 mL/min (90-130) L 09/02/23 14:45 Glucose 83 mg/dL (65-115) 09/02/23 14:45 Calculated Osmolality 281 mOsm/kg (285-295) L 09/02/23 14:45 Calcium 9.0 mg/dL (8.5-10.5) 09/02/23 14:45 Total Bilirubin 0.2 mg/dL (0.15-1.2) 09/02/23 14:45 AST 37 U/L (0-32) H 09/02/23 14:45 ALT 23 U/L (0-33) 09/02/23 14:45 Alkaline Phosphatase 124 U/L (35-105) H 09/02/23 14:45 Total Protein 7.6 g/dL (6.6-8.7) 09/02/23 14:45 Albumin 3.9 g/dL (3.5-5.2) 09/02/23 14:45 Globulin 3.7 g/dL (1.3-4.6) 09/02/23 14:45 Lipase 38 U/L (13-60) 09/02/23 14:45 All radiology interpretation(s) finalized by discharge Discharge Plan Discharge Patient Disposition: Home Clinical Impression: Chronic neck and back pain Condition: Stable Prescriptions: No Action promethazine 12.5 mg tablet 12.5 mg PO BID (DME) insulin syringes (disposable) 1 mL syringe See Rx Instructions .ROUTE .MEDSUPPLY Qty: 25 1RF Rx Instructions: As directed alprazolam [Xanax] 0.5 mg tablet 0.5 mg PO Q4H PRN (Reason: anxiety) 7 Days Qty: 42 0RF levothyroxine 112 mcg tablet 112 mcg PO QAM Qty: 90 1RF (DME) Bone growth stimulator See Rx Instructions .Route .MEDSUPPLY Qty: 1 0RF Rx Instructions: As directed (DME) Bone growth stimulator See Rx Instructions .Route .MEDSUPPLY Qty: 1 0RF Rx Instructions: As directed methotrexate sodium 25 mg/mL solution 20 mg SUBCUT .Q7days Qty: 10 1RF Rx Instructions: ON MONDAYS oxycodone 5 mg capsule 5 mg PO Q4H MDD 6 PRN (Reason: pain) 14 Days Qty: 80 0RF ropinirole 5 mg tablet 5 mg PO TID Qty: 270 0RF omeprazole 40 mg capsule,delayed release(DR/EC) 40 mg PO BID Qty: 60 3RF latanoprost 0.005 % drops 1 drp ophthalmic (eye) BEDTIME gabapentin 600 mg Tablet 600 mg PO TID baclofen 10 mg tablet 10 mg PO Q6H PRN (Reason: Muscle Spasm) albuterol sulfate 90 mcg/actuation HFA aerosol inhaler 1 puff inhalation Q6H PRN (Reason: Shortness Of Breath) Tylenol 325 mg Tablet 650 mg PO Q6H PRN (Reason: Pain) lorazepam 2 mg/mL Syringe 0.5 mg IM .STAT ONE TIME ondansetron 8 mg tablet,disintegrating 8 mg PO Q8H PRN (Reason: nausea/vomiting) sucralfate 1 gram Tablet 1 g PO AC&BEDTIME Qty: 120 0RF prednisone 5 mg Tablet 5 mg PO DAILY magnesium hydroxide [Milk of Magnesia] 400 mg/5 mL Suspension See Rx Instructions .ROUTE .COMPLEX PRN (Reason: Constipation) Rx Instructions: Take 30 mL orally every 72 hours as needed if no bm in 3 days. Do not give to renal patients, go to dulcolax orders. bisacodyl [Dulcolax (bisacodyl)] 10 mg Suppository See Rx Instructions .ROUTE .COMPLEX PRN (Reason: Constipation) Rx Instructions: Give 10 mg rectally daily as needed,if can't take tablets by mouth if no results from milk of magnesia. Fleet Enema 19-7 gram/118 mL Enema See Rx Instructions .ROUTE .COMPLEX PRN (Reason: Constipation) Rx Instructions: Give 118 mL rectally once daily as needed if no results from milk of magnesia or dulcolax. bisacodyl [Dulcolax (bisacodyl)] 5 mg Tablet,Delayed Release (Dr/Ec) See Rx Instructions .ROUTE .COMPLEX PRN (Reason: Constipation) Rx Instructions: Take 10 mg by mouth daily as needed if no results from milk of magnesia. scopolamine base 1 mg over 3 days patch 3 day 1 patch topical Q3D PRN (Reason: nausea/motinon sickness) folic acid 1 mg tablet 1 mg PO DAILY polyethylene glycol 3350 [Miralax] 17 gram/dose powder 17 g PO DAILY Qty: 510 0RF Rx Instructions: Take 1-2 scoops daily for the next 3 months to keep stools soft glycerin (adult) Suppository 1 supp MD DAILY PRN (Reason: constipation) Qty: 12 0RF Discharge Orders: Discharge ED (Routine); Ordered 09/02/23 Ordered By: Paxton Camarillo Referrals: Diana Garcia PA [Primary Care Provider] - Discharge Diet: Usual diet Discharge Activity: Increase activity as tolerated Patient Instructions: Opioid Safety, Pain Management Activity Restrictions/Additional Instructions: Follow-up with pain care trainer or primary care for further recommendations of treatment and adjusting medicines for appropriate care to maintain better control of your pain. Return to ER for fever greater than 100.4, increased shortness of breath, or new concerns. Coding Level of Care Code ED Client Relations Representative for Maribel Sweet
--- NOTE | 2023-09-02 15:48 | XRR_ITS ---
PROCEDURE INFORMATION: Exam: XR Abdomen Exam date and time: 09/02/2023 3:58 PM Age: 68 years old Clinical indication: Abdominal pain; Generalized; Additional info: HX of bowel obstruction, change in stool TECHNIQUE: Imaging protocol: Radiologic exam of the abdomen. Views: Frontal supine view of the abdomen. 1 View. COMPARISON: CR XR acute abdomen series [id number] 05/29/2023 9:18 AM FINDINGS: Gastrointestinal tract: Normal. No bowel dilation. Normal stool amount. Vasculature: An IVC filter is noted in good position. Bones/joints: Old compression fractures at L4 and L5 undergone kyphoplasty. No acute bony abnormality noted. XR/XR KUB [id number] IMPRESSION: No acute findings. COMMENTS: For patients with an IVC filter, recommend assessment for a management plan for the patient's IVC filter. If there is no established management plan, recommend referral to an interventional clinician on a nonemergent basis for evaluation.
[2023-09-02 17:02] LABS: Basophils % 0.6 %; Eosinophils # 0.3 10^3/uL (0.0-0.8); Eosinophils % 3.7 %; Hematocrit 30.3 % (36-47); Lymphocytes # 2.1 10^3/uL (0.8-4.8); Lymphocytes % 31.5 %; Mean Corpuscular Hemoglobin 22.5 pg (27-33); Mean Platelet Volume 9.3 fL (7.4-10.4); Monocytes # 0.6 10^3/uL (0.2-0.9); Monocytes % 8.6 %; Neutrophils # 3.72 10^3/uL (1.8-7.7); Neutrophils % 55.3 %; Nucleated Red Blood Cells % 0 %; Platelet Count 318 10^3/cmm (157-399); Red Blood Count 4.04 10^6/uL (3.85-5.65); Red Cell Distribution Width 16.7 % (12.1-15.1); White Blood Count 6.73 10^3/uL (3.29-11.43)
[2023-09-02] MEDS: sodium chloride 0.9% 1,000 ML 999 ML IV (17:08)
[2023-09-02 17:11] VITALS: BP 137/50; PULSE 53; RESP 18; O2SAT 100
[2023-09-02] MEDS: fentaNYL 50 mcg/mL INJ 2mL 25 MCG IVP (17:11)
[2023-09-02] MEDS: ondansetron 2 mg/ML SDV 2 mL 4 MG IVP (17:11)
[2023-09-02 17:18] LABS: Alanine Aminotransferase 23 U/L (0-33); Albumin Level 3.9 g/dL (3.5-5.2); Alkaline Phosphatase 124 U/L (35-105); Anion Gap 14.4 (5-19); Aspartate Amino Transferase 37 U/L (0-32); Blood Urea Nitrogen 13 mg/dL (8-23); Carbon Dioxide 22 mmol/L (22-29); Chloride 103 mmol/L (98-107); Creatinine Clr Calc Pharmacy 52.0262; Globulin 3.7 g/dL (1.3-4.6); Glomerular Filtration Rate 62.1 mL/min (90-130); Glucose 83 mg/dL (65-115); Lipase 38 U/L (13-60); Osmolality Calculated 281 mOsm/kg (285-295); Potassium 3.4 mmol/L (3.5-5.1); Sodium 136 mmol/L (136-145); Total Bilirubin 0.2 mg/dL (0.15-1.2); Total Protein 7.6 g/dL (6.6-8.7)
[2023-09-02 18:14] LABS: Add Urine Microscopic? NO; Charge for UA Resulting for Rev
[2023-09-02 18:46] LABS: Bilirubin Urine Neg (Negative); Blood Urine Neg (Negative); Glucose Urine UA Norm (Normal); Ketones Urine Negative (Negative); Leukocyte Esterase Urine Negative (Negative); Nitrate Urine Negative (Negative); Protein Urine Neg (Negative); Specific Gravity, Urine 1.005 (1.005-1.030); Urine Appearance Clear (CLEAR); Urine Color Yellow (Yellow); Urobilinogen Urine Norm (Negative); pH Urine 7 (5-7)
[2023-09-02 19:00] VITALS: PULSE 56; RESP 18; O2SAT 97
[2023-09-02 19:14] VITALS: RESP 20; O2SAT 97
[2023-09-02] MEDS: HYDROmorphone 1 mg/mL INJ 1 mL IVP (19:14)
[2023-09-02 19:31] VITALS: BP 132/67; PULSE 52; RESP 15; O2SAT 97
== END 2023-09-02 19:18 | disposition home or self-care (01) ==
PROVIDERS: Emergency Medicine; Emergency Provider Nurse Practitioner Family; PCP Physician Assistant
DX: G89.29 Other chronic pain (principal); M54.2 Cervicalgia; M54.9 Dorsalgia, unspecified; N18.30 Chronic kidney disease, stage 3 unspecified; E78.5 Hyperlipidemia, unspecified; Z87.891 Personal history of nicotine dependence
CPT/HCPCS: 74018; 80053; 81003; 83690; 85025; 96374; 96375; 99284; J1170; J2405; J3010; J7030

== ENCOUNTER → 2023-09-09 14:24 | Outpatient (BNVA) | payer MEDICARE, OTHER, SELFPAY | PROVIDERS: PCP Physician Assistant; Visit Provider Orthopaedic Surgery | DX: M54.2 Cervicalgia (principal); M54.9 Dorsalgia, unspecified; G89.29 Other chronic pain | CPT/HCPCS: 72040; 99024 ==

== ENCOUNTER 2023-09-27 04:06 | Inpatient (IN) | payer MEDICARE, OTHER, SELFPAY ==
[2023-09-27] VITALS (23 sets, daily range): BP systolic 104–167; BP diastolic 49–83; PULSE 41–85; RESP 8–21; TEMP 36.4–36.6; O2SAT 91–100; BMI 22.4
--- NOTE | 2023-09-27 04:23 | XRR_ITS ---
PROCEDURE INFORMATION: Exam: XR Complete Acute Abdomen Series Including Chest Exam date and time: 09/27/2023 4:29 AM Age: 68 years old Clinical indication: Prior surgery; Surgery date: 6+ months; Surgery type: Cervical fusion. Gb. Appy. Kyphoplasty. Ivc filter. Csection. Hysterectomy. Patient HX: Cough with SOB and hypoxia. C/O of constipation. ; Additional info: Cough, constipation TECHNIQUE: Imaging protocol: Radiologic exam. Complete acute abdomen series, including 2 or more views of the abdomen and a single view chest. COMPARISON: CR XR KUB [id number] 09/02/2023 3:58 PM FINDINGS: Lungs: Interstitial prominence. Pleural spaces: Normal. No pleural effusions. No pneumothorax. Heart/Mediastinum: Hiatal hernia. Gastrointestinal tract: Nonspecific bowel gas pattern. Intraperitoneal space: Normal. No free air. Organs: Cholecystectomy. Vasculature: IVC filter. Mild cardiomegaly and uncoiling of the thoracic aorta. Bones/joints: Multilevel lumbar kyphoplasty. Posterior cervical fusion. Soft tissues: Normal. XR/XR acute abdomen series [id number] IMPRESSION: No acute findings. COMMENTS: For patients with an IVC filter, recommend assessment for a management plan for the patient's IVC filter. If there is no established management plan, recommend referral to an interventional clinician on a nonemergent basis for evaluation.
--- NOTE | 2023-09-27 04:23 | CTR_ITS ---
PROCEDURE INFORMATION: Exam: CT Head Without Contrast Exam date and time: 09/27/2023 5:18 AM Age: 68 years old Clinical indication: Alteration of consciousness; Somnolence (drowsiness); Patient HX: Patient very lethargic. ; Additional info: AMS TECHNIQUE: Imaging protocol: Computed tomography of the head without contrast. Radiation optimization: All CT scans at this facility use at least one of these dose optimization techniques: automated exposure control; mA and/or kV adjustment per patient size (includes targeted exams where dose is matched to clinical indication); or iterative reconstruction. COMPARISON: CT head wo con* [id number] 05/29/2023 9:16 AM RADIATION DOSE METRICS: Total DLP (mGy-cm): 1039.6 FINDINGS: Brain: Normal. No hemorrhage. Unremarkable white matter. No mass effect. Basal ganglion calcifications on each side. Cerebral ventricles: No ventriculomegaly. Mild ventricular prominence proportionate to the degree of atrophy observed. Paranasal sinuses: Visualized sinuses are unremarkable. No fluid levels. Mastoid air cells: Visualized mastoid air cells are well aerated. Bones: Unremarkable. No acute fracture. Soft tissues: Unremarkable. CT/CT head wo con* [id number] IMPRESSION: No acute intracranial abnormality.
--- NOTE | 2023-09-27 04:25 | ECG_ITS ---
[facility] Test Date: 2023-09-27 Pat Name: Tosha Perry Department: Room: Gender: Female Purchaser: : 1955 Requested By: Ty Fall Order Number: [id number] Dietz MD: Chava Mckinley M.D. Measurements Intervals [place] Rate: 45 P: 62 AL: 176 QRS: 30 QRSD: 92 T: 43 QT: 486 QTc: 421 Interpretive Statements SINUS BRADYCARDIA LOW QRS VOLTAGE IN PRECORDIAL LEADS [QRS DEFLECTION < 1.0 mV IN CHEST LEADS] Compared to ECG 05/31/2023 03:16:03 Low QRS voltage now present Sinus rhythm no longer present Electronically Signed On 09-27-2023 8:27:01 CDT by Chava Mckinley M.D. [id number]
[2023-09-27] MEDS: lactated ringers 1,000 ML 999 ML IV (04:38)
[2023-09-27] MEDS: fentaNYL 50 mcg/mL INJ 2mL IVP (04:41)
[2023-09-27 04:43] LABS: Erythrocyte Sedimentation Rate 33 mm/hr (0-15)
[2023-09-27 04:45] LABS: Basophils % 0.6 %; Eosinophils # 0.3 10^3/uL (0.0-0.8); Eosinophils % 3.9 %; Hematocrit 25.2 % (36-47); Lymphocytes # 1.6 10^3/uL (0.8-4.8); Lymphocytes % 22.3 %; Mean Corpuscular HGB Conc 29.4 g/dL (30-55); Mean Platelet Volume 9.5 fL (7.4-10.4); Monocytes # 0.8 10^3/uL (0.2-0.9); Monocytes % 11.7 %; Neutrophils # 4.43 10^3/uL (1.8-7.7); Neutrophils % 61.4 %; Nucleated Red Blood Cells % 0 %; Platelet Count 340 10^3/cmm (157-399); Red Blood Count 3.36 10^6/uL (3.85-5.65); Red Cell Distribution Width 17.9 % (12.1-15.1); White Blood Count 7.21 10^3/uL (3.29-11.43)
--- NOTE | 2023-09-27 05:04 | ED_ITS ---
HPI - Neck Pain/Injury 2 General: Chief Complaint: Neck Pain/Injury Stated Complaint: neck pain Time Seen by Provider: 09/27/23 04:09 History of Present Illness: 68-year-old female with chronic neck [place] n. She had surgery on her neck in May, C2-T2 fusion. She has had ongoing neck pain. She denies fever. She states that she is constipated. She was hurting worse last night, and took medication at home. She is evidently on oxycodone, baclofen, and has recently been prescribed alprazolam. She is still writhing and crying out in pain. She notes the pain is mainly on her right arm. She has spasms in the area. She has pain in both legs as well. She denies fever. No chills. Associated symptoms: Reports headache(s) and nausea Review of Systems 2 Const: Denies: fever(s) ENMT: Denies: throat pain Card: Denies: chest pain Resp: Denies: dyspnea GI: Reports: nausea; Denies: abdominal pain or vomiting Musc: Reports: neck pain Skin/Breast: Denies: rash Neuro: Reports: headache(s) Psych: Reports: anxiety PFSH ED 2 PFSH: Medical History GERD (gastroesophageal reflux disease) Pre-operative clearance DVT (deep venous thrombosis) Pneumonia Acute anemia Hematoma complicating a procedure Cervical adenopathy GI bleed Osteoarthritis, shoulder Cervical spondylosis with myelopathy GERD with esophagitis Allergic rhinitis due to allergen RLS (restless legs syndrome) Substance or medication-induced sleep disorder, insomnia type Anxiety and depression High risk medication use Seropositive rheumatoid arthritis of multiple sites Extrapyramidal and movement disorder CKD (chronic kidney disease) stage 3, GFR 30-59 ml/min Lung nodule, solitary Prediabetes Hyperlipidemia Iron deficiency anemia Hypothyroidism Surgical History Status post cervical spinal fusion History of cholecystectomy History of appendectomy History of delivery History of hysterectomy with bilateral oophorectomy History of ankle surgery left Previous back surgery Social History Smoking and tobacco/nicotine status: former use of tobacco/nicotine Quit status (tobacco/nicotine): has quit using Year quit tobacco: 2009 Former quit date comment: Smoked for 9 months Alcohol intake: current Alcohol intake frequency: holidays/special occasions only Substance/Drug Use: never Physical Exam 2 Const: GENERAL APPEARANCE: cooperative, lethargic and frail appearing (Mildly) ORIENTATION/CONSCIOUSNESS: Yes lethargic HENMT: COMMON NORMALS: normocephalic, hearing grossly normal bilaterally and Normal external nose present HEAD & SCALP: normocephalic FACE & SINUS: n ormal facial exam and face symmetric NOSE: Normal external nose present Eye: COMMON NORMALS: Equal, round and reactive pupils present and EOMs intact bilaterally PUPIL: Yes Equal, round and reactive pupils present Neck/C-Spine: GENERAL: Yes trachea midline CERVICAL SPINE: Yes pain with cervical ROM, Yes loss of normal cervical lordosis and Yes Cervical spine tenderness (Diffuse) Chest: CHEST: Yes Symmetrical chest wall rise Resp: COMMON NORMALS: normal respiratory effort, No use of accessory muscles and clear to auscultation bilaterally AUSCULTATION: clear to auscultation bilaterally Cardio: COMMON NORMALS: regular rate and regular rhythm RATE: regular rate RHYTHM: regular rhythm GI: COMMON NORMALS: Soft to palpation PALPATION: Yes Soft to palpation Neuro: DORA COMA SCALE: document GCS findings Aurora coma scale eye opening: To sound Dora coma scale verbal response: Orientated Dora coma scale motor response: Obey commands Aurora coma scale total score: 14 S ENSORIUM/ORIENTATION: Yes lethargic Course 2 Vital Signs: Vital signs: Vital Signs Temperature 97.5 F L 09/27/23 04:08 Pulse Rate 45 L 09/27/23 05:30 Respiratory Rate 10 L 09/27/23 05:30 Blood Pressure 108/59 09/27/23 05:30 Pulse Oximetry 100 09/27/23 05:30 Oxygen Delivery Me thod Nasal Cannula 09/27/23 05:30 Oxygen Flow Rate 4 09/27/23 05:30 MDM - Neck Pain/Injury Medical Decision Making Hemoglobin is 7.4. She is chronically anemic. Vitals have been stable. Acute abdominal series shows significant constipation. Creatinine is 1.3. CRP is only 6.6. Sed rate is 33, which is the lowest it has been. Lactic is 1.4. CT shows hardware is intact. No critical spinal stenosis. Head CT is negative. She is resting comfortably. Blood pressure is 108 systolic, heart rate is 45, she is satting 100%. She will be allowed home. Lab Data 09/27/23 04:39 09/27/23 04:[address] 09/27/23 04:23 IMPRESSION: No acute intracranial abnormality. Cervical Spine CT 09/27/23 05:37 IMPRESSION: Extensive postoperative findings. The Laboratory Results WBC 7.21 10^3/uL (3.29-11.43) 09/27/23 04:39 RBC 3.36 10^6/uL (3.85-5.65) L 09/27/23 04:39 Hgb 7.40 g/dL (11.27-16.99) L 09/27/23 04:39 Hct 25.2 % (36-47) L 09/27/23 04:39 MCV 75.0 fl (85-98) L 09/27/23 04:39 MCH 22.0 pg (27-33) L 09/27/23 04:39 MCHC 29.4 g/dL (30-55) L 09/27/23 04:39 RDW 17.9 % (12.1-15.1) H 09/27/23 04:39 Plt Count 340 10^3/cmm (157-399) 09/27/23 04:39 MPV 9.5 fL (7.4-10.4) 09/27/23 04:39 Neut % (Auto) 61.4 % 09/27/23 04:39 Lymph % (Auto) 22.3 % 09/27/23 04:39 Faulkner % (Auto) 11.7 % 09/27/23 04:39 Eos % (Auto) 3.9 % 09/27/23 04:39 Baso % (Auto) 0.6 % 09/27/23 04:39 Neut # (Auto) 4.43 10^3/uL (1.8-7.7) 09/27/23 04:39 Lymph # (Auto) 1.6 10^3/uL (0.8-4.8) 09/27/23 04:39 Faulkner # (Auto) 0.8 10^3/uL (0.2-0.9) 09/27/23 04:39 Eos # (Auto) 0.3 10^3/uL (0.0-0.8) 09/27/23 04:39 Baso # (Auto) 0.0 10^3/uL (0.0-0.1) 09/27/23 04:39 Nucleated RBC % (auto) 0 % 09/27/23 04:39 Nucleated RBCs # 0.0 /100WBC 09/27/23 04:39 ESR 33 mm/hr (0-15) H 09/27/23 04:39 Sodium 138 mmol/L (136-145) 09/27/23 04:39 Potassium 3.6 mmol/L (3.5-5.1) 09/27/23 04:39 Chloride 98 mmol/L (98-107) 09/27/23 04:39 Carbon Dioxide 29 mmol/L (22-29) 09/27/23 04:39 Anion Gap 14.6 (5-19) 09/27/23 04:39 BUN 28 mg/dL (8-23) H 09/27/23 04:39 Creatinine 1.3 mg/dL (0.5-0.9) H 09/27/23 04:39 GFR Calculation 40.6 mL/min (90-130) L 09/27/23 04:39 Glucose 99 mg/dL (65-115) 09/27/23 04:39 Calculated Osmolality 292 mOsm/kg (285-295) 09/27/23 04:39 Lactic Acid 1.4 mmol/L (0.5-2.2) 09/27/23 04:39 Calcium 9.3 mg/dL (8.5-10.5) 09/27/23 04:39 Total Bilirubin 0.2 mg/dL (0.15-1.2) 09/27/23 04:39 AST 21 U/L (0-32) 09/27/23 04:39 ALT 16 U/L (0-33) 09/27/23 04:39 Alkaline Phosphatase 130 U/L (35-105) H 09/27/23 04:39 Creatine Kinase 57 U/L (26-192) 09/27/23 04:39 C-Reactive Protein 6.6 mg/L (0.0-4.9) H 09/27/23 04:39 Total Protein 7.5 g/dL (6.6-8.7) 09/27/23 04:39 Albumin 3.8 g/dL (3.5-5.2) 09/27/23 04:39 Globulin 3.7 g/dL (1.3-4.6) 09/27/23 04:39 XR interpretation done by ED provider, pending radiology final review Discharge Plan Discharge Patient Disposition: Home Clinical Impression: Status post cervical spinal fusion, Chronic neck pain, Anemia, Constipation Condition: Stable Prescriptions: No Action promethazine 12.5 mg tablet 12.5 mg PO BID (DME) insulin syringes (disposable) 1 mL syringe See Rx Instructions .ROUTE .MEDSUPPLY Qty: 25 1RF Rx Instructions: As directed alprazolam [Xanax] 0.5 mg tablet 0.5 mg PO Q4H PRN (Reason: anxiety) 7 Days Qty: 42 0RF oxycodone 5 mg tablet 5 mg PO Q4H PRN (Reason: pain) 14 Days Qty: 84 0RF levothyroxine 112 mcg tablet 112 mcg PO QAM Qty: 90 1RF (DME) Bone growth stimulator See Rx Instructions .Route .MEDSUPPLY Qty: 1 0RF Rx Instructions: As directed (DME) Bone growth stimulator See Rx Instructions .Route .MEDSUPPLY Qty: 1 0RF Rx Instructions: As directed methotrexate sodium 25 mg/mL solution 20 mg SUBCUT .Q7days Qty: 10 1RF Rx Instructions: ON MONDAYS ropinirole 5 mg tablet 5 mg PO TID Qty: 270 0RF omeprazole 40 mg capsule,delayed release(DR/EC) 40 mg PO BID Qty: 60 3RF latanoprost 0.005 % drops 1 drp ophthalmic (eye) BEDTIME gabapentin 600 mg Tablet 600 mg PO TID baclofen 10 mg tablet 10 mg PO Q6H PRN (Reason: Muscle Spasm) albuterol sulfate 90 mcg/actuation HFA aerosol inhaler 1 puff inhalation Q6H PRN (Reason: Shortness Of Breath) Tylenol 325 mg Tablet 650 mg PO Q6H PRN (Reason: Pain) lorazepam 2 mg/mL Syringe 0.5 mg IM .STAT ONE TIME ondansetron 8 mg tablet,disintegrating 8 mg PO Q8H PRN (Reason: nausea/vomiting) sucralfate 1 gram Tablet 1 g PO AC&BEDTIME Qty: 120 0RF prednisone 5 mg Tablet 5 mg PO DAILY magnesium hydroxide [Milk of Magnesia] 400 mg/5 mL Suspension See Rx Instructions .ROUTE .COMPLEX PRN (Reason: Constipation) Rx Instructions: Take 30 mL orally every 72 hours as needed if no bm in 3 days. Do not give to renal patients, go to dulcolax orders. bisacodyl [Dulcolax (bisacodyl)] 10 mg Suppository See Rx Instructions .ROUTE .COMPLEX PRN (Reason: Constipation) Rx Instructions: Give 10 mg rectally daily as needed,if can't take tablets by mouth if no results from milk of magnesia. Fleet Enema 19-7 gram/118 mL Enema See Rx Instructions .ROUTE .COMPLEX PRN (Reason: Constipation) Rx Instructions: Give 118 mL rectally once daily as needed if no results from milk of magnesia or dulcolax. bisacodyl [Dulcolax (bisacodyl)] 5 mg Tablet,Delayed Release (Dr/Ec) See Rx Instructions .ROUTE .COMPLEX PRN (Reason: Constipation) Rx Instructions: Take 10 mg by mouth daily as needed if no results from milk of magnesia. scopolamine base 1 mg over 3 days patch 3 day 1 patch topical Q3D PRN (Reason: nausea/motinon sickness) folic acid 1 mg tablet 1 mg PO DAILY polyethylene glycol 3350 [Miralax] 17 gram/dose powder 17 g PO DAILY Qty: 510 0RF Rx Instructions: Take 1-2 scoops daily for the next 3 months to keep stools soft glycerin (adult) Suppository 1 supp MI DAILY PRN (Reason: constipation) Qty: 12 0RF Discharge Orders: Discharge ED (Routine); Ordered 09/27/23 Ordered By: Ty Bragg Patient Instructions: Chronic Neck Pain (DC), Opioid Safety, Pain Management Activity Restrictions/Additional Instructions: Call your doctor later today if your pain remains uncontrolled. Return to the emergency room for significant fever, greater than 100.4, worsening weakness, syncope or passing out, other concerning symptoms. Coding Level of Care Code ED Project Geophysicist for Maribel Sweet
[2023-09-27 05:05] LABS: Alanine Aminotransferase 16 U/L (0-33); Albumin Level 3.8 g/dL (3.5-5.2); Alkaline Phosphatase 130 U/L (35-105); Anion Gap 14.6 (5-19); Aspartate Amino Transferase 21 U/L (0-32); Blood Urea Nitrogen 28 mg/dL (8-23); C Reactive Protein 6.6 mg/L (0.0-4.9); Calcium 9.3 mg/dL (8.5-10.5); Carbon Dioxide 29 mmol/L (22-29); Chloride 98 mmol/L (98-107); Creatine Phosphokinase 57 U/L (26-192); Creatinine Clr Calc Pharmacy 36.4862; Globulin 3.7 g/dL (1.3-4.6); Glomerular Filtration Rate 40.6 mL/min (90-130); Glucose 99 mg/dL (65-115); Osmolality Calculated 292 mOsm/kg (285-295); Potassium 3.6 mmol/L (3.5-5.1); Sodium 138 mmol/L (136-145); Total Bilirubin 0.2 mg/dL (0.15-1.2); Total Protein 7.5 g/dL (6.6-8.7)
[2023-09-27 05:06] LABS: Lactic Sepsis W/Reflex 1.4 mmol/L (0.5-2.2)
--- NOTE | 2023-09-27 05:37 | CTR_ITS ---
PROCEDURE INFORMATION: Exam: CT Cervical Spine Without Contrast Exam date and time: 09/27/2023 5:20 AM Age: 68 years old Clinical indication: Neck pain and radicular pain (radiculopathy); Cervical region; Prior surgery; Surgery date: 1-6 months; Surgery type: Cervical thoracic fusion 05/2023; Patient HX: C/O severe neck pain with radiculopathy to RT extremity. ; Additional info: Neck pain, radicular left. HX of neck surgery 05/2023 TECHNIQUE: Imaging protocol: Computed tomography of the cervical spine without contrast. Radiation optimization: All CT scans at this facility use at least one of these dose optimization techniques: automated exposure control; mA and/or kV adjustment per patient size (includes targeted exams where dose is matched to clinical indication); or iterative reconstruction. COMPARISON: CT cervical spine w con [id number] 09/27/2023 5:20 AM RADIATION DOSE METRICS: Total DLP (mGy-cm): 719.17 FINDINGS: Tubes, catheters and devices: Image quality is degraded by patient motion and artifact caused by the large amount of hardware. Bones: No acute fracture. Anterior fusion C3 through C7 including multilevel laminectomy. Posterior fusion C2 through T2 pleural. Anatomic alignment. The hardware appears intact. Normal alignment. No significant disc bulge or herniation. No severe spinal canal stenosis. Multilevel foraminal narrowing. Lungs: Lung apices are normal. Soft tissues: Unremarkable. CT/CT cervical spin wo con* [id number] IMPRESSION: Extensive postoperative findings. The
[2023-09-27] MEDS: dexamethasone 10 mg/mL INJ IVP ×3 (06:16→16:40)
[2023-09-27] MEDS: magnesium citrate Btl 296 mL PO (06:16)
--- NOTE | 2023-09-27 07:12 | W.ED.NECK ---
HPI - Neck Pain/Injury General: Chief Complaint: Neck Pain/Injury Stated Complaint: neck pain Time Seen by Provider: 09/27/23 04:09 Source: patient Mode of arrival: EMS History of Present Illness: 68-year-old female who had presented to the emergency room earlier this morning when I came on shift Dr. Danielson had if seen her evaluate her medicated her for her neck pain CT was done as well as other x-rays she was found to be extremely constipated she is anemic with a hemoglobin of 7.4 but her vital signs of all been stable. She has a history of GI bleed. She also was noted to have a DVT in her right leg on 09/21/2013. In May of this year she had an extensive neck surgery -patient had a posterior fusion from C2-T2 with instrumentation. Dr. Bragg had done a CT instrumentation appears to be intact there is no fractures of any screws or rods or the apparent loosening on the CT. Patient has had difficulty with pain control as well as chronic constipation from regular narcotics use. According to notes from Dr. Hung's office visits he had begun managing her pain control on 09/09/2023. She is clinic complaining of persistent swelling in her right leg particularly as the day progresses it gets better when she gets her leg up. She is concerned because this is occurring despite using Lasix. Additionally she reports having acholic stools and having blood on them occasionally. Patient is chronically anemic Her hemoglobin today is 7.4 on 09/01 it was 9.1. She has on several occasions been in the range of 7 in the last few months. Reviewed in chart. She was transfused on May 15. Her vital signs today at the time when Dr. Bragg had arranged for discharge were all very stable she had a relative bradycardia blood pressure is normal at 124/80 and her oxygen sat has been stable. At times we are getting readings in the 80s but there is not a good waveform and believe it is fully accurate when she is awake and active and there is a good waveform or consistently getting sats in the mid to upper 90s. She does not develop any tachycardia during this. Patient was sleeping comfortably when aroused to be discharged when her arrived she began writhing in pain stating that if she was discharged home she was convinced that she would . I went and reevaluated the patient her exam does not show any signs acute. I reviewed her chart and work that been done up to this point with Dr. Bragg had seen her. complaint: neck pain and other (Right arm pain) Radiation: right upper extremity Associated symptoms: Reports nausea; Denies fevers/chills Review of Systems Const: Denies: fever(s) or chills Card: Denies: chest pain Resp: Denies: dyspnea GI: Reports: abdominal pain, nausea, constipation and hematochezia : Denies: dysuria, urinary frequency or urinary urgency Musc: Denies: neck pain or back pain Skin/Breast: Denies: rash PFSH ED PFSH: Medical History GERD (gastroesophageal reflux disease) Pre-operative clearance DVT (deep venous thrombosis) Pneumonia Acute anemia Hematoma complicating a procedure Cervical adenopathy GI bleed Osteoarthritis, shoulder Cervical spondylosis with myelopathy GERD with esophagitis Allergic rhinitis due to allergen RLS (restless legs syndrome) Substance or medication-induced sleep disorder, insomnia type Anxiety and depression High risk medication use Seropositive rheumatoid arthritis of multiple sites Extrapyramidal and movement disorder CKD (chronic kidney disease) stage 3, GFR 30-59 ml/min Lung nodule, solitary Prediabetes Hyperlipidemia Iron deficiency anemia Hypothyroidism Surgical History Status post cervical spinal fusion History of cholecystectomy History of appendectomy History of delivery History of hysterectomy with bilateral oophorectomy History of ankle surgery left Previous back surgery Social History Smoking and tobacco/nicotine status: former use of tobacco/nicotine Quit status (tobacco/nicotine): has quit using Year quit tobacco: 2009 Former quit date comment: Smoked for 9 months Alcohol intake: current Alcohol intake frequency: holidays/special occasions only Substance/Drug Use: never Physical Exam Const: GENERAL APPEARANCE: disheveled ORIENTATION/CONSCIOUSNESS: Yes awake, Yes oriented to person, Yes oriented to place and Yes oriented to time HENMT: COMMON NORMALS: normocephalic, atraumatic and hearing grossly normal bilaterally HEAD & SCALP: normocephalic and atraumatic Resp: COMMON NORMALS: normal respiratory effort, No retractions, No use of accessory muscles and clear to auscultation bilaterally AUSCULTATION: clear to auscultation bilaterally Cardio: COMMON NORMALS: regular rhythm and No murmurs present (Cardio) RATE: bradycardic RHYTHM: regular rhythm GI: COMMON NORMALS: No hepatosplenomegaly present AUSCULTATION: Yes normoactive bowel sounds PALPATION: Yes Tenderness to palpation present (GI) (Diffuse nonspecific), No Guarding due to palpation present (GI) and Yes No hepatosplenomegaly present : COMMON NORMALS: Yes no CVA tenderness BLADDER/KIDNEY EXAM: Yes no CVA tenderness Back/Pelvis: COMMON NORMALS: no CVA tenderness Extremity: COMMON NORMALS: normal to inspection, capillary refill normal, no clubbing, cyanosis or edema, no calf tenderness and no pedal edema Neuro: SENSORIUM/ORIENTATION: Yes oriented to person, Yes oriented to place and Yes oriented to time Skin: COMMON NORMALS: no rashes or lesions noted GENERAL SKIN EXAM: no rashes or lesions noted Course Vital Signs: Vital signs: Vital Signs Temperature 97.5 F L 09/27/23 04:08 Pulse Rate 45 L 09/27/23 06:00 Respiratory Rate 13 09/27/23 06:00 Blood Pressure 109/56 09/27/23 06:00 Pulse Oximetry 100 09/27/23 06:00 Oxygen Delivery Me thod Nasal Cannula 09/27/23 06:00 Oxygen Flow Rate 2 09/27/23 06:00 MDM - Neck Pain/Injury Medical Decision Making Patient continues to complain of severe pain in her neck and in her arm. Obviously the CT is somewhat limited previous CT neck done on May 13, 2023 noted a fluid collection anterior to C3-C7, this was shortly after surgery and was suspected to be a seroma. Subsequent CT of the cervical spine on June 14, 2023 showed resolution of that fluid collection. Today's CT shows extensive postsurgical changes and hardware with anterior fusion as well as posterior fusion. Good anatomical alignment and no disruption of the instrumentation. She is anemic but this is chronic typically with her vital signs stable and the known history of chronic anemia we will transfuse her as an outpatient. She is currently on omeprazole 40 twice a day. Believe her leg swelling is due to the DVT. She has no signs of acute congestive heart failure. She is significantly constipated. Because of her previous GI bleeds she has not been started on anticoagulation and has not IVC filter this was placed in May. I discussed her case with Dr. Hung who had done her surgery. He has agreed to place patient on observation for pain control. We did draw for a type and screen for possible transfusion. Patient will need a recheck of hemoglobin. Dr. Hung anticipates short hospital stay for pain control her anemia could be addressed on an outpatient basis. Reviewing her chart I do not see that she has had a colonoscopy I do find a previous EGD that did not show any signs of active bleeding. She has a pretty significant microcytic anemia and has been chronically anemic for some time now with her vital signs stable this could be managed as an outpatient. I did talk to her primary care provider Diana Garcia of [facility] she believes they may have had a colonoscopy done on her about 9 or 10 months ago she is going to check the records. There is a oncology visit to workup her anemia but it does not look like there is any follow-through on that suspect this patient will need iron infusions which is alluded to in the oncology note with the caveat that because of her RA and treatment for RA that her anemia is not likely to completely resolve. Discussed with Diana Garcia so that she can arrange for further outpatient follow-up after this hospitalization for pain control. Observation to Dr. Hung for pain control. Differential Diagnosis Likely cervical radiculopathy and strain of neck muscle Medical Records I reviewed the patient's medical records. Lab Data I reviewed the patient's lab results. 09/27/23 04:39 09/27/23 04:39 Radiology Impressions Chest/Abdomen X-ray 09/27/23 04:23 IMPRESSION: No acute findings. COMMENTS: For patients with an IVC filter, recommend assessment for a management plan for the patient's IVC filter. If there is no established management plan, recommend referral to an interventional clinician on a nonemergent basis for evaluation. Head CT 09/27/23 04:23 IMPRESSION: No acute intracranial abnormality. Cervical Spine CT 09/27/23 05:37 IMPRESSION: Extensive postoperative findings. The Laboratory Results WBC 7.21 10^3/uL (3.29-11.43) 09/27/23 04:39 RBC 3.36 10^6/uL (3.85-5.65) L 09/27/23 04:39 Hgb 7.40 g/dL (11.27-16.99) L 09/27/23 04:39 Hct 25.2 % (36-47) L 09/27/23 04:39 MCV 75.0 fl (85-98) L 09/27/23 04:39 MCH 22.0 pg (27-33) L 09/27/23 04:39 MCHC 29.4 g/dL (30-55) L 09/27/23 04:39 RDW 17.9 % (12.1-15.1) H 09/27/23 04:39 Plt Count 340 10^3/cmm (157-399) 09/27/23 04:39 MPV 9.5 fL (7.4-10.4) 09/27/23 04:39 Neut % (Auto) 61.4 % 09/27/23 04:39 Lymph % (Auto) 22.3 % 09/27/23 04:39 [place] % (Auto) 11.7 % 09/27/23 04:39 Eos % (Auto) 3.9 % 09/27/23 04:39 Baso % (Auto) 0.6 % 09/27/23 04:39 Neut # (Auto) 4.43 10^3/uL (1.8-7.7) 09/27/23 04:39 Lymph # (Auto) 1.6 10^3/uL (0.8-4.8) 09/27/23 04:39 [place] # (Auto) 0.8 10^3/uL (0.2-0.9) 09/27/23 04:39 Eos # (Auto) 0.3 10^3/uL (0.0-0.8) 09/27/23 04:39 Baso # (Auto) 0.0 10^3/uL (0.0-0.1) 09/27/23 04:39 Nucleated RBC % (auto) 0 % 09/27/23 04:39 Nucleated RBCs # 0.0 /100WBC 09/27/23 04:39 ESR 33 mm/hr (0-15) H 09/27/23 04:39 Sodium 138 mmol/L (136-145) 09/27/23 04:39 Potassium 3.6 mmol/L (3.5-5.1) 09/27/23 04:39 Chloride 98 mmol/L (98-107) 09/27/23 04:39 Carbon Dioxide 29 mmol/L (22-29) 09/27/23 04:39 Anion Gap 14.6 (5-19) 09/27/23 04:39 BUN 28 mg/dL (8-23) H 09/27/23 04:39 Creatinine 1.3 mg/dL (0.5-0.9) H 09/27/23 04:39 GFR Calculation 40.6 mL/min (90-130) L 09/27/23 04:39 Glucose 99 mg/dL (65-115) 09/27/23 04:39 Calculated Osmolality 292 mOsm/kg (285-295) 09/27/23 04:39 Lactic Acid 1.4 mmol/L (0.5-2.2) 09/27/23 04:39 Calcium 9.3 mg/dL (8.5-10.5) 09/27/23 04:39 Total Bilirubin 0.2 mg/dL (0.15-1.2) 09/27/23 04:39 AST 21 U/L (0-32) 09/27/23 04:39 ALT 16 U/L (0-33) 09/27/23 04:39 Alkaline Phosphatase 130 U/L (35-105) H 09/27/23 04:39 Creatine Kinase 57 U/L (26-192) 09/27/23 04:39 C-Reactive Protein 6.6 mg/L (0.0-4.9) H 09/27/23 04:39 Total Protein 7.5 g/dL (6.6-8.7) 09/27/23 04:39 Albumin 3.8 g/dL (3.5-5.2) 09/27/23 04:39 Globulin 3.7 g/dL (1.3-4.6) 09/27/23 04:39 All radiology interpretation(s) finalized by discharge Discharge Plan Discharge Patient Disposition: Placed in Observation Clinical Impression: Status post cervical spinal fusion, Chronic neck pain, Anemia, Constipation, Acute deep vein thrombosis (DVT) of right lower extremity Coding Level of Care Code ED [employer] Supervisor for Maribel Sweet
[2023-09-27] MEDS: HYDROmorphone 1 mg/mL INJ 1 mL 0.5 MG IVP ×3 (07:23→18:13)
--- NOTE | 2023-09-27 07:42 | PC.NURSE ---
At shift change, fast food shift supervisor nurse SAMRA Mota attempted to discharge patient and patient stated that she was not leaving due to she was still in pain and that Dr. Bragg had not figured out why she could not move her right arm. fast food shift supervisor charge nurse, Ella Lozano, spoke with Dr. Plaza (day shift doctor) in regards to him seeing the patient. Dr. Plaza asked me to join him in room 6 while he did his exam. While Dr. Plaza was attempting to do his exam patient continued to interrupt the physician stating I'm in pain, I can't use my arm, call Dr. Hung . Almost every time that Dr. Plaza tried to listen to the patients lungs or heart the patient would not stop talking and would talk over him. Dr. Plaza asked the patient several times to please stop talking so he could listen to her. The longer that Dr. Plaza was in the room, the more things the patient stated was wrong with her. The patient stated that she has been having blood in her stool and that she has double ear infections recently and that her legs have been swelling horribly. Dr. Plaza asked the patient if she had told Dr. Bragg any of these symptoms and she stated no, he wasn't in here long enough and because I was in too much pain . Patient kept repeating to Dr. Plaza I need dilaudid for the pain, I can't lift my arm, I need you to fix my arm . Dr. Plaza suggested that the patient might need to go to the detention for rehab and she stated that she needed a 3 night stay in the hospital to go to the detention and Dr. Plaza stated that was not true. Patient then stated that she really did not want to go to a detention she just wanted her arm fixed and her pain under control.
[2023-09-27 09:15] LABS: Add Urine Microscopic? NO; Charge for UA Resulting for Rev
[2023-09-27 09:20] LABS: Bilirubin Urine Neg (Negative); Blood Urine Neg (Negative); Glucose Urine UA Norm (Normal); Ketones Urine Negative (Negative); Leukocyte Esterase Urine Negative (Negative); Nitrate Urine Negative (Negative); Protein Urine Neg (Negative); Specific Gravity, Urine 1.005 (1.005-1.030); Urine Appearance Clear (CLEAR); Urine Color Yellow (Yellow); Urobilinogen Urine Neg (Negative); pH Urine 7 (5-7)
[2023-09-27 10:32] LABS: Amphetamines Screen Urine Negative (Negative); Barbiturates Screen Urine Negative (Negative); Benzodiazepines Screen Urine Positive (Negative); Cocaine Screen Urine Negative (Negative); Opiate Screen Urine Negative (Negative); PCP Screen Urine Negative (Negative); THC Screen Urine Positive (Negative)
[2023-09-27] MEDS: HYDROmorphone 1 mg/mL INJ 1 mL IVP (11:48)
--- NOTE | 2023-09-27 16:07 | P.HP_ITS ---
Providers/Chief Complaint 2 Admitting Physician: Ryan Hung DO Chief Complaint: neck pain History of Present Illness 68 female had posterior cervical fusion done approximately 3 months ago. At this point she is complaining of severe pain in her right arm and neck. CT scan of the neck shows hardware in good position no evidence of any compression. At this point however we will get an MRI to see if there is any further issues. Review of Systems 2 Const: Denies: fever(s) or chills Card: Denies: chest pain Resp: Denies: dyspnea GI: Reports: abdominal pain, nausea, constipation and hematochezia : Denies: dysuria, urinary frequency or urinary urgency Musc: Denies: neck pain or back pain Skin/Breast: Denies: rash Medications/Allergies Home Medications Medication Instructions Recorded Confirmed Last Taken Type levothyroxine 112 mcg tablet 112 mcg PO QAM low thyroid #90 tabs 10/15/22 09/27/23 05/29/23 Rx Bone growth stimulator #1 ea 01/22/23 09/27/23 Unknown Rx Bone growth stimulator #1 ea 02/05/23 09/27/23 Unknown Rx insulin syringes (disposable) 1 mL #25 ea 05/04/23 09/27/23 Unknown Rx promethazine 12.5 mg tablet 12.5 mg PO BID PRN Nausea 05/04/23 09/27/23 05/29/23 History ondansetron 8 mg disintegrating 8 mg PO Q8H PRN nausea/vomiting 05/13/23 09/27/23 05/29/23 History tablet sucralfate 1 gram tablet 1 g PO AC&BEDTIME #120 tabs 05/17/23 09/27/23 05/29/23 Rx bisacodyl 10 mg rectal suppository See Rx Instructions .Route 05/29/23 09/27/23 Unknown History (Dulcolax (bisacodyl)) .COMPLEX PRN Constipation bisacodyl 5 mg tablet,delayed See Rx Instructions .Route 05/29/23 09/27/23 05/28/23 History release (Dulcolax (bisacodyl)) .COMPLEX PRN Constipation folic acid 1 mg tablet 1 mg PO DAILY 05/29/23 09/27/23 05/29/23 History glycerin (adult) 1 supp ID DAILY PRN constipation 05/29/23 09/27/23 Unknown Rx #12 ea magnesium hydroxide 400 mg/5 mL See Rx Instructions .Route 05/29/23 09/27/23 Unknown History oral suspension (Milk of Magnesia) .COMPLEX PRN Constipation polyethylene glycol 3350 17 17 g PO DAILY #510 grams 05/29/23 09/27/23 Unknown Rx gram/dose oral powder (Miralax) sodium phosphates 19 gram-7 See Rx Instructions .Route 05/29/23 09/27/23 Unknown History gram/118 mL enema (Fleet Enema) .COMPLEX PRN Constipation acetaminophen 325 mg tablet 650 mg PO Q6H PRN Pain 06/14/23 09/27/23 Unknown History (Tylenol) albuterol sulfate 90 mcg/actuation 1 puff inhalation Q6H PRN 06/14/23 09/27/23 Unknown History aerosol inhaler Shortness Of Breath baclofen 10 mg tablet 10 mg PO Q6H PRN Muscle Spasm 06/14/23 09/27/23 Unknown History alprazolam 0.5 mg tablet (Xanax) 0.5 mg PO Q4H PRN anxiety 7 days 07/06/23 09/27/23 Unknown Rx #42 tabs methotrexate sodium 25 mg/mL 20 mg (0.8 mL) SUBCUT .Q7days #10 07/07/23 09/27/23 Unknown Rx injection solution mL omeprazole 40 mg capsule,delayed 40 mg PO BID #60 caps 08/10/23 09/27/23 Unknown Rx release ropinirole 5 mg tablet 5 mg PO TID #270 tabs 08/10/23 09/27/23 Unknown Rx oxycodone 5 mg tablet 5 mg PO Q4H PRN pain 14 days #84 09/09/23 09/27/23 Unknown Rx tabs fluticasone propionate 50 1 spray intranasal BID 09/27/23 09/27/23 Unknown History mcg/actuation nasal spray,suspension furosemide 40 mg tablet 40 mg PO DAILY PRN Edema 09/27/23 09/27/23 Unknown History gabapentin 300 mg capsule 300 mg PO TID 09/27/23 09/27/23 Unknown History Allergies Allergy/AdvReac Type Severity Reaction Status Date / Time ibuprofen Allergy Unknown ADR-Anxiety Verified 09/09/23 15:32 tizanidine Allergy Unknown Unknown Verified 09/09/23 15:32 acetaminophen Allergy ADR-Anxiety Verified 09/09/23 15:32 amitriptyline Allergy ADR-Agitate Verified 09/09/23 15:32 d diphenhydramine Allergy ADR-Agitate Verified 09/09/23 15:32 [From Benadryl] d morphine Allergy ADR-Halluci Verified 09/09/23 15:32 nating prochlorperazine Allergy Unknown Verified 09/09/23 15:32 [From Compazine] sucralfate [From Carafate] Allergy ALGY-Hives Verified 09/09/23 15:32 leflunomide AdvReac Intermediate GI adverse Verified 09/09/23 15:32 reactions sulfasalazine AdvReac Intermediate ADR-Nausea Verified 09/09/23 15:32 and acid reflux PFSH Acute 2 PFSH: Medical History GERD (gastroesophageal reflux disease) Pre-operative clearance DVT (deep venous thrombosis) Pneumonia Acute anemia Hematoma complicating a procedure Cervical adenopathy GI bleed Osteoarthritis, shoulder Cervical spondylosis with myelopathy GERD with esophagitis Allergic rhinitis due to allergen RLS (restless legs syndrome) Substance or medication-induced sleep disorder, insomnia type Anxiety and depression High risk medication use Seropositive rheumatoid arthritis of multiple sites Extrapyramidal and movement disorder CKD (chronic kidney disease) stage 3, GFR 30-59 ml/min Lung nodule, solitary Prediabetes Hyperlipidemia Iron deficiency anemia Hypothyroidism Surgical History Status post cervical spinal fusion History of cholecystectomy History of appendectomy History of delivery History of hysterectomy with bilateral oophorectomy History of ankle surgery left Previous back surgery Social History Smoking and tobacco/nicotine status: former use of tobacco/nicotine Quit status (tobacco/nicotine): has quit using Year quit tobacco: 2009 Former quit date comment: Smoked for 9 months Alcohol intake: current Alcohol intake frequency: holidays/special occasions only Substance/Drug Use: never Vitals/I&O/Wt Last Vital Signs Temp 97.5 F L 09/27/23 04:08 Pulse 56 L 09/27/23 11:30 Resp 17 09/27/23 13:59 BP 161/56 09/27/23 11:30 Pulse Ox 95 09/27/23 11:48 O2 Del Method Nasal Cannula 09/27/23 13:33 O2 Flow Rate 2 09/27/23 06:00 09/27/23 09/27/23 09/27/23 06:59 14:59 22:59 Intake Total 1000 / 1000 Balance 1000 / 1000 Weight last 48 hrs Weight 131 lb Weight 131 lb Physical Exam 2 Narrative: attempted to move her arm. Tricep is intact at point that she would not let me move her arm cannot get a good exam patient was not cooperative due to pain. Data 09/27/23 04:39 09/27/23 04:39 A&P Assessment and plan (1) Status post cervical spinal fusion: At this point we will get an MRI to see if there is anything compressing on the nerve to give this symptom of right arm pain. Attestations 2 Medical Necessity Statement*: Pain control Coding Level of Care Code Acute Code for Chg Fwd Diagnoses Status post cervical spinal fusion Z98.1
[2023-09-27] MEDS: oxyCODONE 5 mg IR Tab/Cap PO ×2 (16:39→21:12)
[2023-09-27] MEDS: lactated ringers 1,000 ML 90 ML IV (16:40)
[2023-09-27] MEDS: ALPRAZolam 0.5 mg Tablet PO (16:47)
--- NOTE | 2023-09-27 17:17 | P.CONIM_ITS ---
Providers/Reason For Consult 2 Consulting Physician/Specialty*: Pain management Reason for Consult*: Hospitalist Attending Physician: Ryan Hung, DO History of Present Illness History of Present Illness Tosha Perry is a 68 year old female with history of opiate dependence for significant back pain, currently is in the hospital for pain management, Dr. Hung has consulted hospital service as well because patient was complaining of seizure related activity. Patient was evaluated in the 276 room on [facility], she is eating her dinner there is no sign of seizure at all, I requested prolactin level she is already on high-dose opioids, she is suffering from opioid-induced constipation her last bowel movement was 10 days ago I have added lactulose. She is stating that right now her pain is under control, stating that earlier today she had couple episode of nausea and vomiting related to intractable pain. Patient is stating that she is following up with pain management clinic at [facility] for lidocaine injection and Dr. Hung is taking care of oral opioids prescription every 2 weeks Review of Systems 2 Const: Denies: fever(s) Eyes: Denies: change in vision ENMT: Denies: throat pain Card: Denies: chest pain Resp: Denies: dyspnea GI: Denies: abdominal pain : Denies: flank pain Medications/Allergies Home Medications Medication Instructions Recorded Confirmed Last Taken Type levothyroxine 112 mcg tablet 112 mcg PO QAM low thyroid #90 tabs 10/15/22 09/27/23 05/29/23 Rx Bone growth stimulator #1 ea 01/22/23 09/27/23 Unknown Rx Bone growth stimulator #1 ea 02/05/23 09/27/23 Unknown Rx insulin syringes (disposable) 1 mL #25 ea 05/04/23 09/27/23 Unknown Rx promethazine 12.5 mg tablet 12.5 mg PO BID PRN Nausea 05/04/23 09/27/23 05/29/23 History ondansetron 8 mg disintegrating 8 mg PO Q8H PRN nausea/vomiting 05/13/23 09/27/23 05/29/23 History tablet sucralfate 1 gram tablet 1 g PO AC&BEDTIME #120 tabs 05/17/23 09/27/23 05/29/23 Rx bisacodyl 10 mg rectal suppository See Rx Instructions .Route 05/29/23 09/27/23 Unknown History (Dulcolax (bisacodyl)) .COMPLEX PRN Constipation bisacodyl 5 mg tablet,delayed See Rx Instructions .Route 05/29/23 09/27/23 05/28/23 History release (Dulcolax (bisacodyl)) .COMPLEX PRN Constipation folic acid 1 mg tablet 1 mg PO DAILY 05/29/23 09/27/23 05/29/23 History glycerin (adult) 1 supp [place] DAILY PRN constipation 05/29/23 09/27/23 Unknown Rx #12 ea magnesium hydroxide 400 mg/5 mL See Rx Instructions .Route 05/29/23 09/27/23 Unknown History oral suspension (Milk of Magnesia) .COMPLEX PRN Constipation polyethylene glycol 3350 17 17 g PO DAILY #510 grams 05/29/23 09/27/23 Unknown Rx gram/dose oral powder (Miralax) sodium phosphates 19 gram-7 See Rx Instructions .Route 05/29/23 09/27/23 Unknown History gram/118 mL enema (Fleet Enema) .COMPLEX PRN Constipation acetaminophen 325 mg tablet 650 mg PO Q6H PRN Pain 06/14/23 09/27/23 Unknown History (Tylenol) albuterol sulfate 90 mcg/actuation 1 puff inhalation Q6H PRN 06/14/23 09/27/23 Unknown History aerosol inhaler Shortness Of Breath baclofen 10 mg tablet 10 mg PO Q6H PRN Muscle Spasm 06/14/23 09/27/23 Unknown History alprazolam 0.5 mg tablet (Xanax) 0.5 mg PO Q4H PRN anxiety 7 days 07/06/23 09/27/23 Unknown Rx #42 tabs methotrexate sodium 25 mg/mL 20 mg (0.8 mL) SUBCUT .Q7days #10 07/07/23 09/27/23 Unknown Rx injection solution mL omeprazole 40 mg capsule,delayed 40 mg PO BID #60 caps 08/10/23 09/27/23 Unknown Rx release ropinirole 5 mg tablet 5 mg PO TID #270 tabs 08/10/23 09/27/23 Unknown Rx oxycodone 5 mg tablet 5 mg PO Q4H PRN pain 14 days #84 09/09/23 09/27/23 Unknown Rx tabs fluticasone propionate 50 1 spray intranasal BID 09/27/23 09/27/23 Unknown History mcg/actuation nasal spray,suspension furosemide 40 mg tablet 40 mg PO DAILY PRN Edema 09/27/23 09/27/23 Unknown History gabapentin 300 mg capsule 300 mg PO TID 09/27/23 09/27/23 Unknown History Allergies Allergy/AdvReac Type Severity Reaction Status Date / Time ibuprofen Allergy Unknown ADR-Anxiety Verified 09/09/23 15:32 tizanidine Allergy Unknown Unknown Verified 09/09/23 15:32 acetaminophen Allergy ADR-Anxiety Verified 09/09/23 15:32 amitriptyline Allergy ADR-Agitate Verified 09/09/23 15:32 d diphenhydramine Allergy ADR-Agitate Verified 09/09/23 15:32 [From Benadryl] d morphine Allergy ADR-Halluci Verified 09/09/23 15:32 nating prochlorperazine Allergy Unknown Verified 09/09/23 15:32 [From Compazine] sucralfate [From Carafate] Allergy ALGY-Hives Verified 09/09/23 15:32 leflunomide AdvReac Intermediate GI adverse Verified 09/09/23 15:32 reactions sulfasalazine AdvReac Intermediate ADR-Nausea Verified 09/09/23 15:32 and acid reflux Current Medications Generic Name Dose Route Start Last Admin Trade Name Freq PRN Reason Stop Dose Admin Alprazolam 0.5 mg 09/27/23 16:01 09/27/23 16:47 Alprazolam 0.5 Mg Tablet PO 0.5 mg Q4H PRN Administration anxiety Dexamethasone 10 mg 09/27/23 16:00 09/27/23 16:40 Dexamethasone 10 Mg/Ml Inj IVP 10 mg Q6H KIM Administration Hydromorphone HCl 0.5 mg 09/27/23 13:50 09/27/23 13:59 Hydromorphone 1 Mg/Ml Inj 1 Ml IVP 0.5 mg Q4H PRN Administration SEVERE PAIN Lactated Ringer's 1,000 mls @ 90 mls/hr 09/27/23 16:00 09/27/23 16:40 Lactated Ringers IV 90 mls/hr .Q11H7M KIM Administration Oxycodone HCl 5 - 10 mg 09/27/23 15:58 09/27/23 16:39 Oxycodone 5 Mg Ir Tab/Cap PO 10 mg Q4H PRN Administration MODERATE PAIN PFSH Acute 2 PFSH: Medical History GERD (gastroesophageal reflux disease) Pre-operative clearance DVT (deep venous thrombosis) Pneumonia Acute anemia Hematoma complicating a procedure Cervical adenopathy GI bleed Osteoarthritis, shoulder Cervical spondylosis with myelopathy GERD with esophagitis Allergic rhinitis due to allergen RLS (restless legs syndrome) Substance or medication-induced sleep disorder, insomnia type Anxiety and depression High risk medication use Seropositive rheumatoid arthritis of multiple sites Extrapyramidal and movement disorder CKD (chronic kidney disease) stage 3, GFR 30-59 ml/min Lung nodule, solitary Prediabetes Hyperlipidemia Iron deficiency anemia Hypothyroidism Surgical History Status post cervical spinal fusion History of cholecystectomy History of appendectomy History of delivery History of hysterectomy with bilateral oophorectomy History of ankle surgery left Previous back surgery Social History Smoking and tobacco/nicotine status: former use of tobacco/nicotine Quit status (tobacco/nicotine): has quit using Year quit tobacco: 2009 Former quit date comment: Smoked for 9 months Alcohol intake: current Alcohol intake frequency: holidays/special occasions only Substance/Drug Use: never Vitals/I&O/Wt Last Vital Signs Temp 97.9 F 09/27/23 16:15 Pulse 66 09/27/23 16:15 Resp 18 09/27/23 16:39 BP 145/70 09/27/23 16:15 Pulse Ox 91 09/27/23 16:15 O2 Del Method Room Air 09/27/23 16:15 O2 Flow Rate 2 09/27/23 06:00 09/27/23 09/27/23 09/27/23 06:59 14:59 22:59 Intake Total 1000 / 1000 Balance 1000 / 1000 Weight last 48 hrs Weight 59.421 kg Weight 59.421 kg Physical Exam 2 Narrative: Patient is pleasant cooperative Eating her dinner Nonfocal neuroexam No sign of seizure On sign of postictal confusion Nonfocal neuroexam S1, S2 Euvolemic Mild right ankle swelling Currently she is on room air doing well is at the bedside Urinary Catheter Management: Brandt: Cath Placed During This Visit: yes Urinary Catheter Date of Insertion: 09/27/23 Urinary Catheter Time of Insertion: 13:55 Data 09/27/23 04:39 09/27/23 04:39 A&P Assessment and plan (1) Spinal stenosis, lumbar region, with neurogenic claudication: (2) Ulnar nerve abnormality: (3) Status post cervical spinal fusion: (4) Bilateral lower extremity edema: (5) Constipation: (6) Anemia: (7) Prediabetes: Plan Opioid-induced side effects such as constipation Patient is on high-dose steroids Would recommend de-escalating the dose of Decadron I will continue her current opiate regimen There is no sign of seizure or syncope Discontinue IV fluids she is tolerating her diet For right ankle swelling she is already on Lasix Continue anxiolytics as well Added lactulose for opioid-induced constipation, may benefit from methylnaltrexone/Relistor Full code Regular diet Consult Attestations 2 Medical Necessity Statement: As per orthopedics Diagnoses Spinal stenosis, lumbar region, with neurogenic claudication M48.062 Ulnar nerve abnormality G56.20 Status post cervical spinal fusion Z98.1 Bilateral lower extremity edema R60.0 Constipation K59.00 Anemia D64.9 Prediabetes R73.03
[2023-09-27] MEDS: sucralfate 1 gm Tablet PO ×2 (18:13→21:12)
[2023-09-27] MEDS: docusate sodium 100 mg Capsule PO (18:13)
[2023-09-27] MEDS: fluticasone nasal spray 16gm Btl 1 SPRAY INTRANASAL (18:14)
[2023-09-27] MEDS: Fleet Enema 133 mL Enema PR (18:25)
--- NOTE | 2023-09-27 18:33 | XRR_ITS ---
PROCEDURE INFORMATION: Exam: XR Abdomen Exam date and time: 09/27/2023 6:44 PM Age: 68 years old Clinical indication: Other: PT vomited; Additional info: Vomit TECHNIQUE: Imaging protocol: Radiologic exam of the abdomen. Views: Frontal supine view of the abdomen. 1 View. COMPARISON: CR (ABDOMEN, ) 09/27/2023 4:29 AM FINDINGS: Gastrointestinal tract: Moderate to severe constipation without bowel dilation to indicate obstruction. Intraperitoneal space: Right upper quadrant surgical clips. Vasculature: Inferior vena cava filter. Bones/joints: Vertebroplasty changes. XR/XR KUB portable [id number] IMPRESSION: 1. Moderate to severe constipation without bowel dilation to indicate obstruction. 2. Right upper quadrant surgical clips. 3. Inferior vena cava filter. 4. Vertebroplasty changes. COMMENTS: For patients with an IVC filter, recommend assessment for a management plan for the patient's IVC filter. If there is no established management plan, recommend referral to an interventional clinician on a nonemergent basis for evaluation.
[2023-09-27 20:46] LABS: Prolactin 0.593 ng/mL (4.8-23.3)
[2023-09-27] MEDS: gabapentin 300 mg Capsule PO (21:12)
[2023-09-27] MEDS: ropinirole 2 mg Tablet 5 MG PO (21:13)
[2023-09-27] MEDS: lactulose oral liq 20 gm/30 mL UDC PO (21:13)
[2023-09-28] VITALS (17 sets, daily range): BP systolic 111–145; BP diastolic 56–75; PULSE 50–60; RESP 16–20; TEMP 36.3–36.8; O2SAT 93–97
[2023-09-28] MEDS: ondansetron 2 mg/ML SDV 2 mL 4 MG IVP ×2 (01:11→23:02)
[2023-09-28] MEDS: HYDROmorphone 1 mg/mL INJ 1 mL 0.5 MG IVP ×4 (01:12→23:51)
[2023-09-28] MEDS: ALPRAZolam 0.5 mg Tablet PO ×4 (01:58→20:24)
[2023-09-28] MEDS: promethazine 25 mg Tablet 12.5 MG PO (04:48)
[2023-09-28 05:25] LABS: Basophils % 0.2 %; Lymphocytes # 0.8 10^3/uL (0.8-4.8); Lymphocytes % 14.9 %; Mean Corpuscular HGB Conc 28.8 g/dL (30-55); Mean Corpuscular Hemoglobin 21.8 pg (27-33); Mean Corpuscular Volume 75.6 fl (85-98); Mean Platelet Volume 10.3 fL (7.4-10.4); Monocytes # 0.4 10^3/uL (0.2-0.9); Monocytes % 7.8 %; Neutrophils # 4.21 10^3/uL (1.8-7.7); Neutrophils % 76.7 %; Nucleated Red Blood Cells % 0 %; Platelet Count 331 10^3/cmm (157-399); Red Blood Count 3.44 10^6/uL (3.85-5.65); Red Cell Distribution Width 17.9 % (12.1-15.1); White Blood Count 5.49 10^3/uL (3.29-11.43)
[2023-09-28] MEDS: levothyroxine 112 mcg Tablet PO (05:32)
[2023-09-28] MEDS: baclofen 10 mg Tablet PO (05:32)
[2023-09-28 05:47] LABS: Alanine Aminotransferase 12 U/L (0-33); Albumin Level 3.7 g/dL (3.5-5.2); Alkaline Phosphatase 129 U/L (35-105); Aspartate Amino Transferase 16 U/L (0-32); Blood Urea Nitrogen 27 mg/dL (8-23); Calcium 9.1 mg/dL (8.5-10.5); Carbon Dioxide 25 mmol/L (22-29); Chloride 102 mmol/L (98-107); Globulin 3.4 g/dL (1.3-4.6); Glomerular Filtration Rate 49.2 mL/min (90-130); Glucose 145 mg/dL (65-115); Osmolality Calculated 300 mOsm/kg (285-295); Sodium 141 mmol/L (136-145); Total Bilirubin 0.2 mg/dL (0.15-1.2); Total Protein 7.1 g/dL (6.6-8.7)
[2023-09-28 05:52] LABS: Anion Gap 17.7 (5-19); Creatinine Clr Calc Pharmacy 44.9864; Potassium 3.7 mmol/L (3.5-5.1)
[2023-09-28] MEDS: sucralfate 1 gm Tablet PO ×4 (06:16→20:20)
[2023-09-28] MEDS: ropinirole 2 mg Tablet 5 MG PO ×3 (08:06→20:20)
[2023-09-28] MEDS: lactulose oral liq 20 gm/30 mL UDC PO ×2 (08:06→20:20)
[2023-09-28] MEDS: dexamethasone 4 mg Tablet PO ×2 (08:07→13:17)
[2023-09-28] MEDS: fluticasone nasal spray 16gm Btl 1 SPRAY INTRANASAL ×2 (08:07→17:15)
[2023-09-28] MEDS: folic acid 1 mg Tablet PO (08:07)
[2023-09-28] MEDS: polyethylene glycol 3350 Pkt 17 gm PO (08:07)
[2023-09-28] MEDS: gabapentin 300 mg Capsule PO ×3 (08:07→20:19)
[2023-09-28] MEDS: pantoprazole DR 40 mg Tablet PO ×2 (08:07→17:16)
[2023-09-28] MEDS: docusate sodium 100 mg Capsule PO ×2 (08:07→17:16)
[2023-09-28] MEDS: methylnaltrexone 12 /0.6 mL INJ 12 MG SUBCUT (09:06)
--- NOTE | 2023-09-28 09:58 | PC.CHAP ---
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 [] Patient/Family/Request visit [] Outpatient visit [] Follow-up visit [] Physician referral [] Code/Alert [] Routine visit [] Staff referral [] Actively dying [] Patient sleeping [] Family support [] [] Out of room [] Palliative care [] [x] Receiving care in room [] Pre-surgical visit [] Trauma [] Long length of stay [] ICU visit [] Other: Relational/Emotional Strength [] Patient feels connected with others/family/visitors/staff [] Distress [] Loneliness/isolation [] Abandonment Spirituality of Patient [] Person of Shaina [] Attends Restorationism of their Shaina [] Believes in Prayer [] Reads Bible or Christian materials [] There are Spiritual issues to be addressed 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 Interventions [] Prayer [] Active listening [] Non-anxious presence [] Spiritual/emotional support [] Crisis/trauma care [] Spiritual counseling [] Bereavement support [] Provided bereavement packet [] Provided Bible/devotional materials [] Provided toy/stuffed animal, coloring book to patient or family member [] Provided Communion [] Anointing/Mcd[place]al [] Salvation [] Completed spiritual assessment [] Other: Impact on Illness or Injury [] Angry [] Fearful [] Anxious [] Often cries [] Exhaustion [] Unable to work [] Unable to attend jain [] Unable to walk/stand [] Unable to read [] Unable to drive [] Unable to eat/drink [] Unable to sleep [] Unable to be with family [] Patient intubated [] Other: Summary Time spent with patient
[2023-09-28] MEDS: oxyCODONE 5 mg IR Tab/Cap PO ×2 (11:42→20:31)
--- NOTE | 2023-09-28 12:55 | PM.DCS ---
Discharge Providers Date of Admission: 09/27/23 11:47 Date of Discharge: September 28, 2023 Attending Provider at Admission: Ryan Hung DO Attending Provider at Discharge: Ryan Hung DO Diagnoses at Discharge Discharge Diagnosis (1) Spinal stenosis, lumbar region, with neurogenic claudication: Status: Acute (2) Ulnar nerve abnormality: Status: Acute (3) Status post cervical spinal fusion: Status: Acute (4) Bilateral lower extremity edema: Status: Acute (5) Constipation: Status: Acute (6) Anemia: Status: Acute (7) Prediabetes: Status: Resolved Reason for Visit Reason for Visit: neck pain Physical Exam Narrative: Patient resting comfortably in bed Urinary Catheter Management: Brandt: Cath Placed During This Visit: yes Reason for Continuing Indwelling Catheter: Acute Urinary Retention or Obstruction Urinary Catheter Date of Insertion: 09/27/23 Urinary Catheter Time of Insertion: 13:55 Discharge Data Studies Completed and Pending Completed Studies During Hospitalization Category Date Time Status CT cervical spin wo con* [id number] Stat Cat Scan 09/27/23 05:[address] head wo con* [id number] Stat Cat Scan 09/27/23 04:23 Completed XR KUB portable [id number] Routine Exams 09/27/23 18:33 Completed XR acute abdomen series [id number] Stat Exams 09/27/23 04:23 Completed Pending at discharge Category Date Time Status CT cervical spine w con [id number] Stat Cat Scan 09/27/23 04:23 Taken Antibody Identification Routine Lab 09/27/23 07:25 Results Antigen Typing Patient Routine Lab 09/27/23 07:25 Results Leukocyte Reduced RBC Routine Lab 09/27/23 07:25 Results Type and Screen Routine Lab 09/27/23 07:25 Results Urinalysis Stat Lab 09/27/23 04:23 Uncollected MR cervical spin wo con* [id number] Routine MRI 09/28/23 09:30 Ordered Radiology Impressions Chest/Abdomen X-ray 09/27/23 04:23 IMPRESSION: No acute findings. COMMENTS: For patients with an IVC filter, recommend assessment for a management plan for the patient's IVC filter. If there is no established management plan, recommend referral to an interventional clinician on a nonemergent basis for evaluation. Head CT 09/27/23 04:23 IMPRESSION: No acute intracranial abnormality. Cervical Spine CT 09/27/23 05:37 IMPRESSION: Extensive postoperative findings. The KUB X-Ray 09/27/23 18:33 IMPRESSION: 1. Moderate to severe constipation without bowel dilation to indicate obstruction. 2. Right upper quadrant surgical clips. 3. Inferior vena cava filter. 4. Vertebroplasty changes. COMMENTS: For patients with an IVC filter, recommend assessment for a management plan for the patient's IVC filter. If there is no established management plan, recommend referral to an interventional clinician on a nonemergent basis for evaluation. Laboratory Results WBC 5.49 10^3/uL (3.29-11.43) 09/28/23 04:55 RBC 3.44 10^6/uL (3.85-5.65) L 09/28/23 04:55 Hgb 7.50 g/dL (11.27-16.99) L 09/28/23 04:55 Hct 26.0 % (36-47) L 09/28/23 04:55 MCV 75.6 fl (85-98) L 09/28/23 04:55 MCH 21.8 pg (27-33) L 09/28/23 04:55 MCHC 28.8 g/dL (30-55) L 09/28/23 04:55 RDW 17.9 % (12.1-15.1) H 09/28/23 04:55 Plt Count 331 10^3/cmm (157-399) 09/28/23 04:55 MPV 10.3 fL (7.4-10.4) 09/28/23 04:55 Neut % (Auto) 76.7 % 09/28/23 04:55 Lymph % (Auto) 14.9 % 09/28/23 04:55 [place] % (Auto) 7.8 % 09/28/23 04:55 Eos % (Auto) 0.0 % 09/28/23 04:55 Baso % (Auto) 0.2 % 09/28/23 04:55 Neut # (Auto) 4.21 10^3/uL (1.8-7.7) 09/28/23 04:55 Lymph # (Auto) 0.8 10^3/uL (0.8-4.8) 09/28/23 04:55 [place] # (Auto) 0.4 10^3/uL (0.2-0.9) 09/28/23 04:55 Eos # (Auto) 0.0 10^3/uL (0.0-0.8) 09/28/23 04:55 Baso # (Auto) 0.0 10^3/uL (0.0-0.1) 09/28/23 04:55 Nucleated RBC % (auto) 0 % 09/28/23 04:55 Nucleated RBCs # 0.0 /100WBC 09/28/23 04:55 ESR 33 mm/hr (0-15) H 09/27/23 04:39 Sodium 141 mmol/L (136-145) 09/28/23 04:55 Potassium 3.7 mmol/L (3.5-5.1) 09/28/23 04:55 Chloride 102 mmol/L (98-107) 09/28/23 04:55 Carbon Dioxide 25 mmol/L (22-29) 09/28/23 04:55 Anion Gap 17.7 (5-19) 09/28/23 04:55 BUN 27 mg/dL (8-23) H 09/28/23 04:55 Creatinine 1.1 mg/dL (0.5-0.9) H 09/28/23 04:55 GFR Calculation 49.2 mL/min (90-130) L 09/28/23 04:55 Glucose 145 mg/dL (65-115) H 09/28/23 04:55 Calculated Osmolality 300 mOsm/kg (285-295) H 09/28/23 04:55 Lactic Acid 1.4 mmol/L (0.5-2.2) 09/27/23 04:39 Calcium 9.1 mg/dL (8.5-10.5) 09/28/23 04:55 Total Bilirubin 0.2 mg/dL (0.15-1.2) 09/28/23 04:55 AST 16 U/L (0-32) 09/28/23 04:55 ALT 12 U/L (0-33) 09/28/23 04:55 Alkaline Phosphatase 129 U/L (35-105) H 09/28/23 04:55 Creatine Kinase 57 U/L (26-192) 09/27/23 04:39 C-Reactive Protein 6.6 mg/L (0.0-4.9) H 09/27/23 04:39 Total Protein 7.1 g/dL (6.6-8.7) 09/28/23 04:55 Albumin 3.7 g/dL (3.5-5.2) 09/28/23 04:55 Globulin 3.4 g/dL (1.3-4.6) 09/28/23 04:55 Prolactin 0.593 ng/mL (4.8-23.3) L 09/27/23 04:39 Urine Color Yellow (Yellow) 09/27/23 08:19 Urine Appearance Clear (CLEAR) 09/27/23 08:19 Urine pH 7 (5-7) 09/27/23 08:19 Ur Specific [place] 1.005 (1.005-1.030) 09/27/23 08:19 Urine Protein Neg (Negative) 09/27/23 08:19 Urine Glucose (UA) Norm (Normal) 09/27/23 08:19 Urine Ketones Negative (Negative) 09/27/23 08:19 Urine Blood Neg (Negative) 09/27/23 08:19 Urine Nitrate Negative (Negative) 09/27/23 08:19 Urine Bilirubin Neg (Negative) 09/27/23 08:19 Urine Urobilinogen Neg mg/dL (Negative) 09/27/23 08:19 Ur Leukocyte Esterase Negative (Negative) 09/27/23 08:19 Urine Opiates Screen Negative ng/mL (Negative) 09/27/23 08:19 Ur Barbiturates Screen Negative ng/mL (Negative) 09/27/23 08:19 Ur Phencyclidine Scrn Negative ng/mL (Negative) 09/27/23 08:19 Ur Amphetamines Screen Negative ng/mL (Negative) 09/27/23 08:19 U Benzodiazepines Scrn Positive ng/mL (Negative) H 09/27/23 08:19 Urine Cocaine Screen Negative ng/mL (Negative) 09/27/23 08:19 U Marijuana (THC) Screen Positive ng/mL (Negative) H 09/27/23 08:19 Blood Type O Positive 09/27/23 07:25 Rho(D) Type Rh positive 09/27/23 07:25 Antibody Screen Positive 09/27/23 07:25 Antibody Identification Anti-K 09/27/23 07:25 Antigen Identification K Antigen - NEGATIVE 09/27/23 07:25 Crossmatch See Detail 09/27/23 07:25 Vitals Last Vital Signs Temp 97.3 F L 09/28/23 11:50 Pulse 57 L 09/28/23 11:50 Resp 18 09/28/23 11:50 BP 145/75 09/28/23 11:50 Pulse Ox 97 09/28/23 11:50 O2 Del Method Room Air 09/28/23 08:50 O2 Flow Rate 2 09/27/23 06:00 Discharge Plan Discharge Patient Disposition: Home Condition: Stable Prescriptions: New oxycodone 5 mg tablet 5 mg PO Q4H PRN (Reason: pain) 7 Days Qty: 40 0RF Continued promethazine 12.5 mg tablet 12.5 mg PO BID PRN (Reason: Nausea) (DME) insulin syringes (disposable) 1 mL syringe See Rx Instructions .ROUTE .MEDSUPPLY Qty: 25 1RF Rx Instructions: As directed alprazolam [Xanax] 0.5 mg tablet 0.5 mg PO Q4H PRN (Reason: anxiety) 7 Days Qty: 42 0RF oxycodone 5 mg tablet 5 mg PO Q4H PRN (Reason: pain) 14 Days Qty: 84 0RF levothyroxine 112 mcg tablet 112 mcg PO QAM Qty: 90 1RF (DME) Bone growth stimulator See Rx Instructions .Route .MEDSUPPLY Qty: 1 0RF Rx Instructions: As directed (DME) Bone growth stimulator See Rx Instructions .Route .MEDSUPPLY Qty: 1 0RF Rx Instructions: As directed methotrexate sodium 25 mg/mL solution 20 mg SUBCUT .Q7days Qty: 10 1RF Rx Instructions: ON MONDAYS ropinirole 5 mg tablet 5 mg PO TID Qty: 270 0RF omeprazole 40 mg capsule,delayed release(DR/EC) 40 mg PO BID Qty: 60 3RF baclofen 10 mg tablet 10 mg PO Q6H PRN (Reason: Muscle Spasm) albuterol sulfate 90 mcg/actuation HFA aerosol inhaler 1 puff inhalation Q6H PRN (Reason: Shortness Of Breath) acetaminophen [Tylenol] 325 mg Tablet 650 mg PO Q6H PRN (Reason: Pain) ondansetron 8 mg tablet,disintegrating 8 mg PO Q8H PRN (Reason: nausea/vomiting) sucralfate 1 gram Tablet 1 g PO AC&BEDTIME Qty: 120 0RF magnesium hydroxide [Milk of Magnesia] 400 mg/5 mL Suspension See Rx Instructions .ROUTE .COMPLEX PRN (Reason: Constipation) Rx Instructions: Take 30 mL orally every 72 hours as needed if no bm in 3 days. Do not give to renal patients, go to dulcolax orders. bisacodyl [Dulcolax (bisacodyl)] 10 mg Suppository See Rx Instructions .ROUTE .COMPLEX PRN (Reason: Constipation) Rx Instructions: Give 10 mg rectally daily as needed,if can't take tablets by mouth if no results from milk of magnesia. Fleet Enema 19-7 gram/118 mL Enema See Rx Instructions .ROUTE .COMPLEX PRN (Reason: Constipation) Rx Instructions: Give 118 mL rectally once daily as needed if no results from milk of magnesia or dulcolax. bisacodyl [Dulcolax (bisacodyl)] 5 mg Tablet,Delayed Release (Dr/Ec) See Rx Instructions .ROUTE .COMPLEX PRN (Reason: Constipation) Rx Instructions: Take 10 mg by mouth daily as needed if no results from milk of magnesia. folic acid 1 mg tablet 1 mg PO DAILY polyethylene glycol 3350 [Miralax] 17 gram/dose powder 17 g PO DAILY Qty: 510 0RF Rx Instructions: Take 1-2 scoops daily for the next 3 months to keep stools soft glycerin (adult) Suppository 1 supp DE DAILY PRN (Reason: constipation) Qty: 12 0RF gabapentin 300 mg capsule 300 mg PO TID furosemide 40 mg tablet 40 mg PO DAILY PRN (Reason: Edema) fluticasone propionate 50 mcg/actuation spray,suspension 1 spray INTRANASAL BID Discharge Orders: Discharge Order (Routine); Ordered 09/28/23 Ordered By: Ryan Hung Discharge Diet: Advance as tolerated Discharge Activity: Limit activity as instructed Patient Instructions: Chronic Neck Pain (DC), Opioid Safety, Pain Management Activity Restrictions/Additional Instructions: Call your doctor later today if your pain remains uncontrolled. Return to the emergency room for significant fever, greater than 100.4, worsening weakness, syncope or passing out, other concerning symptoms. Discharge Attestations Time Spent in Discharge Care*: less than 30 min Status at Discharge: Cognitive status at discharge: cognitively intact, Behavioral status at discharge: cooperative, Quality Metrics Clinical Quality Measures [ No reported AMI, CVA or VTE this stay] Coding Level of Care Code Acute Code for Chg Fwd Diagnoses Spinal stenosis, lumbar region, with neurogenic claudication M48.062 Ulnar nerve abnormality G56.20 Status post cervical spinal fusion Z98.1 Bilateral lower extremity edema R60.0 Constipation K59.00 Anemia D64.9 Prediabetes R73.03
--- NOTE | 2023-09-28 13:51 | P.PN_ITS ---
Subjective 2 Subjective: Patient doing well on current opioid regimen Give her 1 unit PRBC after MRI Will give her Relistor for opioid-induced constipation Send constipation noted on KUB Vitals/I&O/Wt Last Vital Signs Temp 98.3 F 09/28/23 12:50 Pulse 55 L 09/28/23 12:50 Resp 18 09/28/23 12:50 BP 111/60 09/28/23 12:50 Pulse Ox 95 09/28/23 12:50 O2 Del Method Room Air 09/28/23 08:50 O2 Flow Rate 2 09/27/23 06:00 09/27/23 09/28/23 09/28/23 22:59 06:59 14:59 Intake Total 309.5 / 309.5 480 / 789.5 180 / 180 Output Total 350 / 350 250 / 600 Balance -40.5 / -40.5 230 / 189.5 180 / 180 Weight last 48 hrs Weight 65.544 kg Weight 59.421 kg Weight 59.421 kg Physical Exam 2 Narrative: Awake and alert Poor IV access GCS 15 Nonfocal neuroexam No active distress No active chest pain Abdomen soft Hemodynamically stable Currently on room air Urinary Catheter Management: Brandt: Cath Placed During This Visit: yes Reason for Continuing Indwelling Catheter: Acute Urinary Retention or Obstruction Urinary Catheter Date of Insertion: 09/27/23 Urinary Catheter Time of Insertion: 13:55 Data 09/28/23 04:55 09/28/23 04:55 A&P Assessment and plan (1) Postoperative anemia: (2) Prediabetes: (3) GERD (gastroesophageal reflux disease): (4) Constipation: (5) Anemia: (6) Chronic neck pain: (7) Spinal stenosis, lumbar region, with neurogenic claudication: (8) Status post cervical spinal fusion: (9) Bilateral lower extremity edema: Plan Postoperative anemia Will give 1 unit PRBC Patient is asking for long-term/rehab placement Chronic neck pain, opiate dependent, gets IV lidocaine ejection at [facility], Dr. Hung has been prescribing her oral opioids Currently doing well on current opioid regimen Opioid-induced constipation: No signs of obstruction Give her Relistor today Case management updated Full code Regular diet Attestations 2 Medical Necessity Statement*: Orthopedics Diagnoses Postoperative anemia D64.9 Prediabetes R73.03 GERD (gastroesophageal reflux disease) K21.9 Constipation K59.00 Anemia D64.9 Chronic neck pain M54.2; G89.29 Spinal stenosis, lumbar region, with neurogenic claudication M48.062 Status post cervical spinal fusion Z98.1 Bilateral lower extremity edema R60.0
[2023-09-29] VITALS (11 sets, daily range): BP systolic 111–159; BP diastolic 54–74; PULSE 47–58; RESP 16–20; TEMP 36.4–36.7; O2SAT 95–97
[2023-09-29] MEDS: promethazine 25 mg Tablet 12.5 MG PO (00:18)
[2023-09-29] MEDS: oxyCODONE 5 mg IR Tab/Cap PO ×4 (03:08→21:07)
[2023-09-29] MEDS: levothyroxine 112 mcg Tablet PO (06:02)
[2023-09-29] MEDS: sucralfate 1 gm Tablet PO ×3 (06:03→21:08)
[2023-09-29] MEDS: ropinirole 2 mg Tablet 5 MG PO ×3 (08:11→21:08)
[2023-09-29] MEDS: pantoprazole DR 40 mg Tablet PO ×2 (08:11→18:40)
[2023-09-29] MEDS: polyethylene glycol 3350 Pkt 17 gm PO (08:11)
[2023-09-29] MEDS: docusate sodium 100 mg Capsule PO ×2 (08:12→18:40)
[2023-09-29] MEDS: folic acid 1 mg Tablet PO (08:12)
[2023-09-29] MEDS: lactulose oral liq 20 gm/30 mL UDC PO ×2 (08:13→21:09)
[2023-09-29] MEDS: gabapentin 300 mg Capsule PO ×3 (08:21→21:09)
[2023-09-29] MEDS: fluticasone nasal spray 16gm Btl 1 SPRAY INTRANASAL ×2 (08:21→18:40)
[2023-09-29] MEDS: ondansetron 2 mg/ML SDV 2 mL 4 MG IVP ×3 (09:40→22:44)
--- NOTE | 2023-09-29 09:57 | CTR_ITS ---
PROCEDURE INFORMATION: Exam: CT Abdomen And Pelvis Without Contrast Exam date and time: 09/29/2023 10:23 AM Age: 68 years old Clinical indication: Nausea and vomiting; Prior surgery; Surgery date: 6+ months; Surgery type: Gb, back; Additional info: Vomit TECHNIQUE: Imaging protocol: Computed tomography of the abdomen and pelvis without contrast. Radiation optimization: All CT scans at this facility use at least one of these dose optimization techniques: automated exposure control; mA and/or kV adjustment per patient size (includes targeted exams where dose is matched to clinical indication); or iterative reconstruction. COMPARISON: CT abdomen pelvis w con* [id number] 02/27/2023 7:53 PM RADIATION DOSE METRICS: Total DLP (mGy-cm): 475.14 FINDINGS: Lungs: Bibasilar consolidations. Heart: Hypoattenuation of the cardiac blood pool relative to the myocardium, as can be seen in the setting of anemia. Diaphragm: Moderate hiatal hernia. Liver: Normal appearance of the liver. Gallbladder and bile ducts: Status post cholecystectomy. Pancreas: No ductal dilation. Spleen: Unremarkable. Adrenal glands: Unremarkable. Kidneys and ureters: No hydronephrosis. Stomach and bowel: No obstruction. No mucosal thickening. Appendix: No evidence of appendicitis. Intraperitoneal space: No free air. No significant fluid collection. Vasculature: IVC filter in place. Moderate atherosclerotic calcifications. Lymph nodes: No enlarged lymph nodes. Urinary bladder: The urinary bladder is decompressed with a Brandt catheter. Reproductive: Unremarkable as visualized. Bones/joints: L4 and L5 vertebroplasty. Soft tissues: Unremarkable. CT/CT abdomen pelvis wo con [id number] IMPRESSION: 1. Bibasilar consolidations, concerning for infection or aspiration. 2. No acute intraabdominal findings. COMMENTS: For patients with an IVC filter, recommend assessment for a management plan for the patient's IVC filter. If there is no established management plan, recommend referral to an interventional clinician on a nonemergent basis for evaluation.
[2023-09-29] MEDS: promethazine 25 mg/mL SDV 1 mL 12.5 MG IM (10:37)
[2023-09-29] MEDS: ALPRAZolam 0.5 mg Tablet PO ×2 (10:51→22:44)
[2023-09-29 10:59] LABS: Basophils % 0.3 %; Eosinophils # 0.1 10^3/uL (0.0-0.8); Eosinophils % 0.8 %; Hematocrit 30.1 % (36-47); Lymphocytes # 2.2 10^3/uL (0.8-4.8); Mean Corpuscular HGB Conc 29.2 g/dL (30-55); Mean Corpuscular Hemoglobin 22.9 pg (27-33); Mean Corpuscular Volume 78.4 fl (85-98); Mean Platelet Volume 9.8 fL (7.4-10.4); Monocytes # 0.7 10^3/uL (0.2-0.9); Monocytes % 9.1 %; Neutrophils # 4.75 10^3/uL (1.8-7.7); Neutrophils % 61.2 %; Nucleated Red Blood Cells % 0 %; Platelet Count 289 10^3/cmm (157-399); Red Blood Count 3.84 10^6/uL (3.85-5.65); Red Cell Distribution Width 18.6 % (12.1-15.1); White Blood Count 7.76 10^3/uL (3.29-11.43)
[2023-09-29 11:11] LABS: Alanine Aminotransferase 9 U/L (0-33); Albumin Level 3.5 g/dL (3.5-5.2); Alkaline Phosphatase 114 U/L (35-105); Anion Gap 15.4 (5-19); Aspartate Amino Transferase 15 U/L (0-32); Blood Urea Nitrogen 23 mg/dL (8-23); Calcium 8.8 mg/dL (8.5-10.5); Carbon Dioxide 23 mmol/L (22-29); Chloride 106 mmol/L (98-107); Creatinine Clr Calc Pharmacy 55.2366; Globulin 3.2 g/dL (1.3-4.6); Glomerular Filtration Rate 62.1 mL/min (90-130); Glucose 114 mg/dL (65-115); Osmolality Calculated 297 mOsm/kg (285-295); Potassium 3.4 mmol/L (3.5-5.1); Sodium 141 mmol/L (136-145); Total Bilirubin 0.2 mg/dL (0.15-1.2); Total Protein 6.7 g/dL (6.6-8.7)
--- NOTE | 2023-09-29 11:25 | PC.SOCIAL ---
IMM Update pg 2 of IMM updated and reviewed w/ patient. Copy provided and copy dated, initialed and placed in chart.
[2023-09-29] MEDS: baclofen 10 mg Tablet PO (12:33)
--- NOTE | 2023-09-29 13:15 | P.PN_ITS ---
Subjective 2 Subjective: Hemoglobin 8.8 Patient had couple bowel movements yesterday Complaining of nausea and vomiting today I requested CT abdomen pelvis on stat basis which did not show any sign of perforation Bibasilar atelectasis versus pneumonia No leukocytosis, afebrile Could not go for MRI because patient was experiencing some dizziness which I think are neuro conversion disorder related symptoms she did not have typical seizure related changes or syncopal events Patient was concerned that previous ear infection is probably causing this I do not see any active drainage around her right ear, right ear is nontender on examination Vitals/I&O/Wt Last Vital Signs Temp 98.1 F 09/29/23 12:00 Pulse 58 L 09/29/23 12:00 Resp 18 09/29/23 12:32 BP 111/67 09/29/23 12:00 Pulse Ox 96 09/29/23 12:00 O2 Del Method Room Air 09/29/23 08:18 O2 Flow Rate 2 09/27/23 06:00 09/28/23 09/29/23 09/29/23 22:59 06:59 14:59 Intake Total 300 / 480 700 / 1180 480 / 480 Output Total 900 / 900 Balance 300 / 480 -200 / 280 480 / 480 Weight last 48 hrs Weight 66.224 kg Weight 65.544 kg Weight 59.421 kg Physical Exam 2 Narrative: Awake and alert Vomiting improved Euvolemic Abdomen soft Hemodynamically stable Sinus bradycardia Awake and alert Nonfocal neuroexam No drainage noted around right ear Urinary Catheter Management: Brandt: Cath Placed During This Visit: yes Reason for Continuing Indwelling Catheter: Acute Urinary Retention or Obstruction Urinary Catheter Date of Insertion: 09/27/23 Urinary Catheter Time of Insertion: 13:55 Data 09/29/23 10:47 09/29/23 10:47 A&P Assessment and plan (1) High risk medication use: (2) GERD (gastroesophageal reflux disease): (3) Constipation: (4) Anemia: (5) Postoperative anemia: (6) Chronic neck pain: (7) Spinal stenosis, lumbar region, with neurogenic claudication: (8) Lung nodule, solitary: (9) Bilateral lower extremity edema: Plan Recurrent nausea vomiting No signs of perforation Had 2 bowel movement yesterday Opioid-induced constipation relieved with Relistor CT abdomen pelvis unremarkable other than bibasilar atelectasis, she is not requiring oxygen, afebrile, no leukocytosis I will put her on Augmentin for possible pneumonia Postoperative anemia: Improved after 1 unit PRBC The regimen prescribed by Dr. 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 I do not believe her syncope or presyncopal events are organic at this point Patient is hemodynamically stable I do not suspect any stroke related changes She does have CBD dilation MRCP requested which patient did not complete because of her: Possible syncopal event Add DVT prophylaxis Postop anemia: Resolved Attestations 2 Medical Necessity Statement*: Continue medical management Diagnoses High risk medication use Z79.899 GERD (gastroesophageal reflux disease) K21.9 Constipation K59.00 Anemia D64.9 Postoperative anemia D64.9 Chronic neck pain M54.2; G89.29 Spinal stenosis, lumbar region, with neurogenic claudication M48.062 Lung nodule, solitary R91.1 Bilateral lower extremity edema R60.0
--- NOTE | 2023-09-29 13:18 | P.PN_ITS ---
Subjective 2 Subjective: Patient seems more comfortable today when I walked in the room. Although she was sleeping yesterday when I walked in the room. At this point she went down the attempt to get an MRI but medical technologist prn felt she was passing out. At this point nothing further to add from the case. Vitals/I&O/Wt Last Vital Signs Temp 98.1 F 09/29/23 12:00 Pulse 58 L 09/29/23 12:00 Resp 18 09/29/23 12:32 BP 111/67 09/29/23 12:00 Pulse Ox 96 09/29/23 12:00 O2 Del Method Room Air 09/29/23 08:18 O2 Flow Rate 2 09/27/23 06:00 09/28/23 09/29/23 09/29/23 22:59 06:59 14:59 Intake Total 300 / 480 700 / 1180 480 / 480 Output Total 900 / 900 Balance 300 / 480 -200 / 280 480 / 480 Weight last 48 hrs Weight 146 lb Weight 144 lb 8 oz Weight 131 lb Physical Exam 2 Narrative: Patient sitting in bed comfortable Urinary Catheter Management: Brandt: Cath Placed During This Visit: yes Reason for Continuing Indwelling Catheter: Acute Urinary Retention or Obstruction Urinary Catheter Date of Insertion: 09/27/23 Urinary Catheter Time of Insertion: 13:55 Data 09/29/23 10:47 09/29/23 10:47 A&P Assessment and plan (1) Status post cervical spinal fusion: Patient's pain seems to be well-controlled. At this point if they can get the MRI done today she can get it done as an outpatient. She can discharge and follow-up in the clinic as an outpatient I have nothing further to add to the case. Attestations 2 Medical Necessity Statement*: Okay to discharge Coding Level of Care Code Acute Code for Chg Fwd Diagnoses Status post cervical spinal fusion Z98.1
[2023-09-29] MEDS: heparin 5,000 unit/mL INJ 1 mL 5000 UNIT SUBCUT (15:19)
[2023-09-29] MEDS: HYDROmorphone 1 mg/mL INJ 1 mL 0.5 MG IVP (16:37)
[2023-09-29] MEDS: amoxicillin-clav 875-125 mg Tablet 1 TAB PO (18:40)
[2023-09-30] VITALS (8 sets, daily range): BP systolic 103–172; BP diastolic 49–79; PULSE 50–60; RESP 16–18; TEMP 36.4–36.8; O2SAT 96–99; BMI 25.7
[2023-09-30] MEDS: HYDROmorphone 1 mg/mL INJ 1 mL 0.5 MG IVP (01:39)
[2023-09-30] MEDS: heparin 5,000 unit/mL INJ 1 mL 5000 UNIT SUBCUT (01:40)
[2023-09-30] MEDS: sucralfate 1 gm Tablet PO ×2 (05:40→11:29)
[2023-09-30] MEDS: oxyCODONE 5 mg IR Tab/Cap PO ×2 (05:40→11:18)
[2023-09-30] MEDS: levothyroxine 112 mcg Tablet PO (05:41)
[2023-09-30 06:20] LABS: Basophils # 0.1 10^3/uL (0.0-0.1); Basophils % 0.8 %; Eosinophils # 0.2 10^3/uL (0.0-0.8); Eosinophils % 3.5 %; Lymphocytes # 2.5 10^3/uL (0.8-4.8); Lymphocytes % 40.3 %; Mean Corpuscular HGB Conc 29.4 g/dL (30-55); Mean Corpuscular Hemoglobin 23.1 pg (27-33); Mean Corpuscular Volume 78.6 fl (85-98); Mean Platelet Volume 9.6 fL (7.4-10.4); Monocytes # 0.6 10^3/uL (0.2-0.9); Monocytes % 8.9 %; Neutrophils # 2.85 10^3/uL (1.8-7.7); Nucleated Red Blood Cells % 0 %; Platelet Count 266 10^3/cmm (157-399); Red Blood Count 4.07 10^6/uL (3.85-5.65)
[2023-09-30 06:37] LABS: Anion Gap 14.7 (5-19); Blood Urea Nitrogen 19 mg/dL (8-23); Calcium 8.5 mg/dL (8.5-10.5); Carbon Dioxide 23 mmol/L (22-29); Chloride 106 mmol/L (98-107); Glucose 108 mg/dL (65-115); Osmolality Calculated 293 mOsm/kg (285-295); Potassium 3.7 mmol/L (3.5-5.1); Sodium 140 mmol/L (136-145)
[2023-09-30 06:39] LABS: Creatinine Clr Calc Pharmacy 50.3215
--- NOTE | 2023-09-30 08:06 | P.PN_ITS ---
Subjective 2 Subjective: Patient is sleeping Vitals/I&O/Wt Last Vital Signs Temp 97.9 F 09/30/23 04:00 Pulse 50 L 09/30/23 04:00 Resp 17 09/30/23 05:40 BP 103/58 09/30/23 04:00 Pulse Ox 97 09/30/23 04:00 O2 Del Method Room Air 09/30/23 04:00 O2 Flow Rate 2 09/27/23 06:00 09/29/23 09/30/23 09/30/23 22:59 06:59 14:59 Intake Total 600 / 1080 360 / 1440 Output Total 900 / 900 Balance 600 / 1080 -540 / 540 Weight last 48 hrs Weight 150 lb Weight 146 lb Physical Exam 2 Narrative: Patient is sleeping Urinary Catheter Management: Brandt: Cath Placed During This Visit: yes Reason for Continuing Indwelling Catheter: Acute Urinary Retention or Obstruction Urinary Catheter Date of Insertion: 09/27/23 Urinary Catheter Time of Insertion: 13:55 Data 09/30/23 06:15 09/30/23 06:15 A&P Assessment and plan (1) Status post cervical spinal fusion: Okay to discharge She does not need to get a new MRI on this visit. She can get the MRI on outpatient basis. Attestations 2 Medical Necessity Statement*: Okay to discharge Coding Level of Care Code Acute Code for Chg Fwd Diagnoses Status post cervical spinal fusion Z98.1
[2023-09-30] MEDS: ondansetron 2 mg/ML SDV 2 mL 4 MG IVP (08:50)
[2023-09-30 09:35] LABS: SARS Covid-2 Antigen negative (Negative)
[2023-09-30] MEDS: baclofen 10 mg Tablet PO (10:41)
[2023-09-30] MEDS: ropinirole 2 mg Tablet 5 MG PO (10:41)
[2023-09-30] MEDS: polyethylene glycol 3350 Pkt 17 gm PO (10:42)
[2023-09-30] MEDS: folic acid 1 mg Tablet PO (10:42)
[2023-09-30] MEDS: amoxicillin-clav 875-125 mg Tablet 1 TAB PO (10:42)
[2023-09-30] MEDS: pantoprazole DR 40 mg Tablet PO (10:42)
[2023-09-30] MEDS: docusate sodium 100 mg Capsule PO (10:42)
[2023-09-30] MEDS: gabapentin 300 mg Capsule PO (10:42)
[2023-09-30] MEDS: lactulose oral liq 20 gm/30 mL UDC PO (10:43)
[2023-09-30] MEDS: ALPRAZolam 0.5 mg Tablet PO (11:29)
== END 2023-09-30 13:33 | disposition skilled nursing facility (03) | DRG 92 ==
LOC: ER 07:38 → MEDSURG 13:34
PROVIDERS: Emergency Medicine; Internal Medicine; Admitting Provider Orthopaedic Surgery; Emergency Provider Family Medicine; Visit Provider Orthopaedic Surgery
DX: G89.29 Other chronic pain (principal); F11.20 Opioid dependence, uncomplicated; M54.2 Cervicalgia; Z98.1 Arthrodesis status; K21.9 Gastro-esophageal reflux disease without esophagitis; Z86.718 Personal history of other venous thrombosis and embolism; G25.81 Restless legs syndrome; F41.9 Anxiety disorder, unspecified; F32.A Depression, unspecified; N18.30 Chronic kidney disease, stage 3 unspecified; R73.03 Prediabetes; E78.5 Hyperlipidemia, unspecified; E03.9 Hypothyroidism, unspecified; Z87.891 Personal history of nicotine dependence; D50.9 Iron deficiency anemia, unspecified; K59.03 Drug induced constipation; T40.2X5A Adverse effect of other opioids, initial encounter; M48.062 Spinal stenosis, lumbar region with neurogenic claudication; G56.20 Lesion of ulnar nerve, unspecified upper limb; R91.1 Solitary pulmonary nodule; R60.0 Localized edema
CPT/HCPCS: 36415; 51702; 70450; 72125; 72126; 74018; 74022; 74176; 80048; 80053; 80306; 80503; 81003; 82550; 83605; 84146; 85025; 85651; 86140; 86850; 86870; 86900; 86902; 86920; 87426; 93005; 96372; 96374; 96375; 96376; 97110; 97116; 97161; 99285; J1100; J1170; J1644; J2212; J2405; J2550; J3010; J7120; J8540; P9016; Q0169

== ENCOUNTER 2023-10-15 06:43 | Emergency (ER) | payer MEDICARE, OTHER, SELFPAY ==
[2023-10-15 06:47] VITALS: BP 140/69; PULSE 67; RESP 18; TEMP 36.7; O2SAT 94
--- NOTE | 2023-10-15 07:13 | ED_ITS ---
HPI - Nausea/Vomiting/Diarrhea 2 General: Chief complaint: Nausea/Vomiting/Diarrhea Stated complaint: constipation/N/V Time Seen by Provider: 10/15/23 06:47 History of Present Illness: This patient is a 68 year old presenting with abdominal pain, nausea, vomiting, constipation. 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 Since then she has not been able to have a bowel movement. The [facility] staff have been giving her everything but the kitchen sick and last night they did a suppository. This did result in a small bowel movement but she feels like the stool is hung up in there and she needs an enema. She says that she has an enlarged bile duct from an abdominal trauma in the past. She has had her gallbladder removed, a c section, tubal , appendix and hiatal hernia repair. She is from [place] and those surgeries were done there. She also notes that the NH ran out of her usual pain medicine and gave her hydrocodone instead. She also reports a history of pancreatitis and says that she has had a bowel obstruction in the past. PFSH ED 2 PFSH: Medical History GERD (gastroesophageal reflux disease) Pre-operative clearance DVT (deep venous thrombosis) Pneumonia Acute anemia Hematoma complicating a procedure Cervical adenopathy GI bleed Osteoarthritis, shoulder Cervical spondylosis with myelopathy GERD with esophagitis Allergic rhinitis due to allergen RLS (restless legs syndrome) Substance or medication-induced sleep disorder, insomnia type Anxiety and depression High risk medication use Seropositive rheumatoid arthritis of multiple sites Extrapyramidal and movement disorder CKD (chronic kidney disease) stage 3, GFR 30-59 ml/min Lung nodule, solitary Prediabetes Hyperlipidemia Iron deficiency anemia Hypothyroidism Surgical History Status post cervical spinal fusion History of cholecystectomy History of appendectomy History of delivery History of hysterectomy with bilateral oophorectomy History of ankle surgery left Previous back surgery Social History Smoking and tobacco/nicotine status: former use of tobacco/nicotine Quit status (tobacco/nicotine): has quit using Year quit tobacco: 2009 Former quit date comment: Smoked for 9 months Alcohol intake: current Alcohol intake frequency: holidays/special occasions only Substance/Drug Use: never Physical Exam 2 Const: OTHER: uncomfortable, sitting with a neck pillow, an emesis bag tucked into the pillow. Falling asleep during the history HENMT: HEAD & SCALP: normal to inspection FACE & SINUS: normal facial exam Eye: GENERAL EYE: appearance normal, both eyes and all related structures Neck/C-Spine: COMMON NORMALS: supple, no meningeal signs and no JVD Chest: COMMONS NORMALS: normal inspection of the chest Resp: COMMON NORMALS: normal respiratory effort, No use of accessory muscles and clear to auscultation bilaterally AUSCULTATION: clear to auscultation bilaterally Cardio: COMMON NORMALS: no JVD, regular rate, regular rhythm and No murmurs present (Cardio) RATE: regular rate RHYTHM: regular rhythm GI: AUSCULTATION: Yes Hypoactive bowel sounds present PALPATION: Yes Tenderness to palpation present (GI) (diffuse, but most in the RUQ and epigastric area) Details: RUQ Back/Pelvis: COMMON NORMALS: thoracic and lumbar spine normal to inspection Extremity: COMMON NORMALS: normal to inspection Neuro: COMMON NORMALS: moves all extremities, no focal motor deficits and no sensory deficits noted MENINGEAL SIGNS: Yes no meningeal signs Psych: COMMON NORMALS: mental status grossly normal, cooperative and normal affect Skin: COMMON NORMALS: no rashes or lesions noted and turgor normal GENERAL SKIN EXAM: no rashes or lesions noted and turgor normal Course 2 Vital Signs: Vital signs: Vital Signs Temperature 98.1 F 10/15/23 06:47 Pulse Rate 78 10/15/23 10:06 Respiratory Rate 16 10/15/23 08:16 Blood Pressure 112/58 10/15/23 10:06 Pulse Oximetry 91 10/15/23 10:06 Oxygen Delivery Me thod Room Air 10/15/23 06:47 MDM - Nausea/Vomiting/Diarrhea Medical Decision Making extensive medical and surgical history. Recent admission here was apparently for right arm pain - not actually paralysis. She believes that she was told the right shoulder pain was due to an enlarged common bile duct. On review of H and P, consult and discharge summary, I don't see any mention of her CBD. She did have mention of constipation related to opiate use. She has a history of neurogenic claudication and spinal stenosis - chronic pain - prior neck surgery. She had an MRI on her cervical spine while in hospital. Labs, consider CT for work up of abdominal pain. Reveiwed recent CT and US. With normal LFTs and WBC, I don't think she needs imaging. Enema given with decent results. She has follow up set up with GI in [place] next week. Lab Data 10/15/23 07:47 10/15/23 07:47 Laboratory Results WBC 5.20 10^3/uL (3.29-11.43) 10/15/23 07:47 RBC 3.89 10^6/uL (3.85-5.65) 10/15/23 07:47 Hgb 9.00 g/dL (11.27-16.99) L 10/15/23 07:47 Hct 30.1 % (36-47) L 10/15/23 07:47 MCV 77.4 fl (85-98) L 10/15/23 07:47 MCH 23.1 pg (27-33) L 10/15/23 07:47 MCHC 29.9 g/dL (30-55) L 10/15/23 07:47 RDW 19.1 % (12.1-15.1) H 10/15/23 07:47 Plt Count 356 10^3/cmm (157-399) 10/15/23 07:47 MPV 9.4 fL (7.4-10.4) 10/15/23 07:47 Neut % (Auto) 52.3 % 10/15/23 07:47 Lymph % (Auto) 27.5 % 10/15/23 07:47 Randolph % (Auto) 14.2 % 10/15/23 07:47 Eos % (Auto) 5.2 % 10/15/23 07:47 Baso % (Auto) 0.2 % 10/15/23 07:47 Neut # (Auto) 2.72 10^3/uL (1.8-7.7) 10/15/23 07:47 Lymph # (Auto) 1.4 10^3/uL (0.8-4.8) 10/15/23 07:47 Randolph # (Auto) 0.7 10^3/uL (0.2-0.9) 10/15/23 07:47 Eos # (Auto) 0.3 10^3/uL (0.0-0.8) 10/15/23 07:47 Baso # (Auto) 0.0 10^3/uL (0.0-0.1) 10/15/23 07:47 Nucleated RBC % (auto) 0 % 10/15/23 07:47 Nucleated RBCs # 0.0 /100WBC 10/15/23 07:47 Sodium 135 mmol/L (136-145) L 10/15/23 07:47 Potassium 4.0 mmol/L (3.5-5.1) 10/15/23 07:47 Chloride 99 mmol/L (98-107) 10/15/23 07:47 Carbon Dioxide 26 mmol/L (22-29) 10/15/23 07:47 Anion Gap 14.0 (5-19) 10/15/23 07:47 BUN 25 mg/dL (8-23) H 10/15/23 07:47 Creatinine 1.1 mg/dL (0.5-0.9) H 10/15/23 07:47 GFR Calculation 49.2 mL/min (90-130) L 10/15/23 07:47 Glucose 103 mg/dL (65-115) 10/15/23 07:47 Calculated Osmolality 285 mOsm/kg (285-295) 10/15/23 07:47 Lactic Acid 1.1 mmol/L (0.5-2.2) 10/15/23 07:47 Calcium 9.3 mg/dL (8.5-10.5) 10/15/23 07:47 Total Bilirubin 0.2 mg/dL (0.15-1.2) 10/15/23 07:47 AST 19 U/L (0-32) 10/15/23 07:47 ALT 6 U/L (0-33) 10/15/23 07:47 Alkaline Phosphatase 112 U/L (35-105) H 10/15/23 07:47 Ammonia 25 umol/L (11-51) 10/15/23 07:47 Total Protein 7.3 g/dL (6.6-8.7) 10/15/23 07:47 Albumin 3.5 g/dL (3.5-5.2) 07/05/24 07:47 Globulin 3.8 g/dL (1.3-4.6) 10/15/23 07:47 Lipase 29 U/L (13-60) 10/15/23 07:47 No radiology studies performed this visit Discharge Plan Discharge Patient Disposition: er [facility] Clinical Impression: Constipation, Chronic neck pain, Status post cervical spinal fusion, High risk medication use, Spinal stenosis, lumbar region, with neurogenic claudication Condition: Stable Discharge Orders: Discharge ED (Routine); Ordered 10/15/23 Ordered By: Deborah Saavedra Discharge Diet: Advance as tolerated Discharge Activity: Limit activity as instructed Coding Level of Care Code ED Equipment Detailer for Diamondg Micki
--- NOTE | 2023-10-15 07:15 | PC.PHAR ---
PT IS FROM [facility]
[2023-10-15 07:56] LABS: Basophils % 0.2 %; Eosinophils # 0.3 10^3/uL (0.0-0.8); Eosinophils % 5.2 %; Hematocrit 30.1 % (36-47); Lymphocytes # 1.4 10^3/uL (0.8-4.8); Lymphocytes % 27.5 %; Mean Corpuscular HGB Conc 29.9 g/dL (30-55); Mean Corpuscular Hemoglobin 23.1 pg (27-33); Mean Corpuscular Volume 77.4 fl (85-98); Mean Platelet Volume 9.4 fL (7.4-10.4); Monocytes # 0.7 10^3/uL (0.2-0.9); Monocytes % 14.2 %; Neutrophils # 2.72 10^3/uL (1.8-7.7); Neutrophils % 52.3 %; Nucleated Red Blood Cells % 0 %; Platelet Count 356 10^3/cmm (157-399); Red Blood Count 3.89 10^6/uL (3.85-5.65); Red Cell Distribution Width 19.1 % (12.1-15.1)
[2023-10-15] MEDS: fentaNYL 50 mcg/mL INJ 2mL IVP (08:13)
[2023-10-15] MEDS: sodium chloride 0.9% 500 ML 999 ML IV (08:13)
[2023-10-15] MEDS: ondansetron 2 mg/ML SDV 2 mL 4 MG IVP (08:13)
[2023-10-15 08:16] VITALS: BP 138/65; PULSE 70; RESP 16; O2SAT 99
[2023-10-15 08:17] LABS: Alanine Aminotransferase 6 U/L (0-33); Albumin Level 3.5 g/dL (3.5-5.2); Alkaline Phosphatase 112 U/L (35-105); Aspartate Amino Transferase 19 U/L (0-32); Blood Urea Nitrogen 25 mg/dL (8-23); Calcium 9.3 mg/dL (8.5-10.5); Carbon Dioxide 26 mmol/L (22-29); Chloride 99 mmol/L (98-107); Globulin 3.8 g/dL (1.3-4.6); Glomerular Filtration Rate 49.2 mL/min (90-130); Glucose 103 mg/dL (65-115); Lipase 29 U/L (13-60); Osmolality Calculated 285 mOsm/kg (285-295); Sodium 135 mmol/L (136-145); Total Bilirubin 0.2 mg/dL (0.15-1.2); Total Protein 7.3 g/dL (6.6-8.7)
[2023-10-15 08:18] LABS: Ammonia 25 umol/L (11-51); Lactic Sepsis W/Reflex 1.1 mmol/L (0.5-2.2)
[2023-10-15] MEDS: Fleet Enema 133 mL Enema PR (09:03)
[2023-10-15 10:06] VITALS: BP 112/58; PULSE 78; O2SAT 91
== END 2023-10-15 11:05 ==
PROVIDERS: Emergency Provider Emergency Medicine
DX: K59.00 Constipation, unspecified (principal); M54.2 Cervicalgia; M48.062 Spinal stenosis, lumbar region with neurogenic claudication; G89.29 Other chronic pain; E78.5 Hyperlipidemia, unspecified; N18.30 Chronic kidney disease, stage 3 unspecified; Z79.899 Other long term (current) drug therapy; Z86.718 Personal history of other venous thrombosis and embolism; Z87.891 Personal history of nicotine dependence; Z98.1 Arthrodesis status
CPT/HCPCS: 80053; 82140; 83605; 83690; 85025; 96361; 96374; 96375; 99284; J2405; J3010; J7040

== ENCOUNTER 2023-10-24 08:21 | Emergency (ER) | payer MEDICARE, OTHER, SELFPAY ==
[2023-10-24 08:24] VITALS: BP 154/75; PULSE 74; RESP 16; TEMP 37.4; O2SAT 93; BMI 23.1
--- NOTE | 2023-10-24 08:38 | ECG_ITS ---
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 Measurements Intervals [place] Rate: 67 P: 64 [place]: 165 QRS: 48 QRSD: 87 T: 66 QT: 371 QTc: 394 Interpretive Statements SINUS RHYTHM LOW QRS VOLTAGE IN PRECORDIAL LEADS [QRS DEFLECTION < 1.0 mV IN CHEST LEADS] INTERPRETATION BASED ON A DEFAULT AGE OF 40 YEARS Compared to ECG 09/27/2023 05:33:49 Sinus bradycardia no longer present Electronically Signed On 10-24-2023 13:21:38 CDT by Jasmin Elsie M.D. [email or web address]
--- NOTE | 2023-10-24 08:40 | W.ED.ABDPA2 ---
HPI - Abdominal Pain General: Chief Complaint: Abdominal Pain Stated Complaint: CHEST PAIN Time Seen by Provider: 10/24/23 08:24 Source: patient Mode of arrival: EMS Limitations: no limitations History of Present Illness: This patient presents to our emergency department from her home. She states that she had upper and lower endoscopy performed at [facility] in [place] on Wednesday. She states that last night she started having nausea and vomiting and continues to have abdominal pain. She denies any bloody emesis. She denies any blood or dark tarry stools. She states she has had previous episodes of upper GI bleeding. She states that she takes hydrocodone that she uses every 4 hours. She denies any known fevers or chills. She states that she has episodes where she goes in and out and feels like she goes on a trip. Had past medical history of medication overuse and requiring increased amounts of pain medication in the emergency department and requesting other interventions per previous medical records. MD elicited complaint: abdominal pain Associated Symptoms: Reports chills, nausea and vomiting; Denies dysuria and fever(s) Review of Systems Const: Reports: chills; Denies: fever(s) Eyes: Denies: change in vision ENMT: Denies: throat pain, odynophagia, nasal discharge, nasal congestion or nasal obstruction Card: Denies: chest pain, palpitations or irregular heart rhythm Resp: Denies: dyspnea, productive cough or non-productive cough GI: Reports: abdominal pain, nausea and vomiting : Denies: flank pain, difficulty voiding or dysuria Musc: Denies: neck pain, back pain or extremity pain Skin/Breast: Denies: rash Neuro: Denies: headache(s), numbness in extremities or weakness in extremities Psych: Denies: anxiety Jl/Lymph: Denies: easy bruising or easy bleeding PFS ED PFSH: Medical History GERD (gastroesophageal reflux disease) Pre-operative clearance DVT (deep venous thrombosis) Pneumonia Acute anemia Hematoma complicating a procedure Cervical adenopathy GI bleed Osteoarthritis, shoulder Cervical spondylosis with myelopathy GERD with esophagitis Allergic rhinitis due to allergen RLS (restless legs syndrome) Substance or medication-induced sleep disorder, insomnia type Anxiety and depression High risk medication use Seropositive rheumatoid arthritis of multiple sites Extrapyramidal and movement disorder CKD (chronic kidney disease) stage 3, GFR 30-59 ml/min Lung nodule, solitary Prediabetes Hyperlipidemia Iron deficiency anemia Hypothyroidism Surgical History Status post cervical spinal fusion History of cholecystectomy History of appendectomy History of delivery History of hysterectomy with bilateral oophorectomy History of ankle surgery left Previous back surgery Social History Smoking and tobacco/nicotine status: former use of tobacco/nicotine Quit status (tobacco/nicotine): has quit using Year quit tobacco: 2009 Former quit date comment: Smoked for 9 months Alcohol intake: current Alcohol intake frequency: holidays/special occasions only Substance/Drug Use: never Physical Exam Narrative: EXAM NARRATIVE: She makes eye contact intermittently but will intermittently close her eyes and then jerk. She does not answer questions in a goal-directed fashion when prompted. Const: COMMON NORMALS: patient oriented x3 and alert NUTRITIONAL APPEARANCE: overweight HENMT: COMMON NORMALS: normocephalic, Normal nasal mucous membranes and turbinates present, moist oral mucous membranes and oropharynx normal HEAD & SCALP: normocephalic NOSE: Normal nasal mucous membranes and turbinates present Eye: COMMON NORMALS: Equal, round and reactive pupils present, EOMs intact bilaterally, conjunctivae normal and normal visual [place] by confrontation CONJUNCTIVA: Yes conjunctivae normal PUPIL: Yes Equal, round and reactive pupils present Neck/C-Spine: COMMON NORMALS: full ROM and no lymphadenopathy Chest: COMMONS NORMALS: normal inspection of the chest Resp: COMMON NORMALS: normal respiratory effort, No retractions and clear to auscultation bilaterally AUSCULTATION: clear to auscultation bilaterally Cardio: COMMON NORMALS: regular rate, regular rhythm, No murmurs present (Cardio) and Peripheral pulses 2+ throughout RATE: regular rate RHYTHM: regular rhythm PERIPHERAL PULSES: Peripheral pulses 2+ throughout GI: OTHER: She complains of discomfort when palpated in any region of her abdomen. Goal to elici whether she has any significant objective tenderness given her subjective response. No palpable masses. : COMMON NORMALS: Yes no CVA tenderness BLADDER/KIDNEY EXAM: Yes no CVA tenderness Back/Pelvis: COMMON NORMALS: no CVA tenderness, thoraco-lumbar ROM normal and straight leg raise negative bilaterally Extremity: COMMON NORMALS: normal to inspection, full ROM, no calf tenderness and no pedal edema Neuro: COMMON NORMALS: patient oriented x3, moves all extremities and no focal motor deficits SENSORIUM/ORIENTATION: Yes alert Skin: COMMON NORMALS: no rashes or lesions noted and no wounds GENERAL SKIN EXAM: no rashes or lesions noted Course Reevaluation(s): Reevaluation #1: ABIs obtained her MADONNA on her right leg is 0.98 on her left leg is 0.70 Time: 13:00 Reevaluation #2: I have read examined the patient. She is much more comfortable and not complaining of abdominal pain her repeat examination reveals a few crackles at the bases. She has a soft nontender abdomen at this time. Her is now present states that she has been coughing for the last couple of days and he wonders if she might have a pneumonia. She has not had any fevers that he is aware. Time: 13:05 Reevaluation #3: Patient remains clinically stable. She does have chest x-ray findings that may suggest pneumonia which would go along with her clinical features of cough and congestion. She is certainly not hypoxic tachycardic or otherwise suggested that she requires inpatient care at this time-her pneumonia severity and port 65 score both put her at low risk and suitable for outpatient therapy. Her CT scan results were shared with her and she apparently has a vascular surgery appointment pending being arranged by her primary care doctor. No indication for additional treatment of this condition at this time and it is not compromised to limb threatening or other serious level at this time. Time: 14:54 Vital Signs: Vital signs: Vital Signs Temperature 99.4 F 10/24/23 08:24 Pulse Rate 64 10/24/23 13:30 Respiratory Rate 16 10/24/23 08:24 Blood Pressure 120/56 10/24/23 13:30 Pulse Oximetry 90 10/24/23 13:30 Oxygen Delivery Me thod Room Air 10/24/23 13:30 MDM - Abdominal Pain Medical Decision Making This patient presented to the emergency department as noted in the history of present illness. She had had recent both upper and lower endoscopy on Wednesday at [facility]. She has a history of recurrent abdominal pain as well as chronic deep feet venous thrombosis and is had recently had a Morris filter placed for that condition. Differential for her current presentation included possible acute intra-abdominal process related to her most recent endoscopy such as perforation etc. Certainly other intra-abdominal pathology such as bowel obstruction, acute surgical condition etc. also were considered. Laboratories and imaging were ordered to work through that differential. Patient also had abdominal pain but also apparently has a history of opiate overuse. For that reason we are reluctant to give her any opiates in the emergency department and controlled her symptoms with haloperidol quite well. She showed continued improvement, received hydration and laboratories were reassuring. She has chronic anemia and that is unchanged from previous laboratories. She also had incidental hypokalemia and she was orally repleted while in the emergency department. Later in the course her arrived and related that she has been coughing over the past several days and he was concerned about a possible lung infection. This information had not been relayed to us by the patient early in her course and therefore chest x-ray was obtained which showed potential lower lobe infiltrates. She had a low-grade temperature because of these 2 concomitant findings she was given antibiotics empirically IV and continued on oral antibiotics. She had a low risk pneumonia severity score and was suitable to be managed as an outpatient. She is currently clinically stable symptoms controlled and suitable for outpatient follow-up. She has a vascular surgery consult working according to her admission from her primary care doctor and there is no need to expedite that at this time. Lab Data I reviewed the patient's lab results. 10/24/23 10:08 10/24/23 10:08 Labs/Radiology: Radiology Impressions Abdomen/Pelvis CT 10/24/23 08:45 IMPRESSION: 1. Small pleural effusions with bibasilar infiltrates likely inflammatory. 2. Mild intra and extrahepatic biliary ductal dilatation. While this may be post cholecystectomy in nature, recommend clinical correlation. If there is a clinical concern for a ductal stone or ductal obstruction, recommend correlation with ERCP or MRCP. 3. Trace free fluid within the pelvis. No free air is identified. COMMENTS: 1. For patients with an IVC filter, recommend assessment for a management plan for the patient's IVC filter. If there is no established management plan, recommend referral to an interventional clinician on a nonemergent basis for evaluation. 2. Consistent with the [employer]'s Incidental Findings Committee white paper (J Am Ananth Radiol 2018): Any incidental renal lesion less than 1 cm or classified as too small to characterize, or any incidental cystic renal lesion characterized as simple-appearing, is likely benign. No follow-up imaging is recommended for these lesions per consensus recommendations based on imaging criteria. ADDENDUM: 10/24/23 1139 COMMENT: THIS REPORT CONTAINS FINDINGS THAT MAY BE CRITICAL TO PATIENT CARE. The exam findings were verbally communicated by me to JAMES BROWN via telephone conference at 11:37 AM CDT on 10/24/2023. The findings were acknowledged and understood. Chest X-Ray 10/24/23 13:05 IMPRESSION: Pulmonary vascular prominence with patchy hazy infiltrates which may be due to heart failure and edema though superimposed pneumonia should also be considered. Laboratory Results WBC 11.19 10^3/uL (3.29-11.43) 10/24/23 10:08 RBC 3.56 10^6/uL (3.85-5.65) L 10/24/23 10:08 Hgb 8.30 g/dL (11.27-16.99) L 10/24/23 10:08 Hct 27.6 % (36-47) L 10/24/23 10:08 MCV 77.5 fl (85-98) L 10/24/23 10:08 MCH 23.3 pg (27-33) L 10/24/23 10:08 MCHC 30.1 g/dL (30-55) 10/24/23 10:08 RDW 19.1 % (12.1-15.1) H 10/24/23 10:08 Plt Count 361 10^3/cmm (157-399) 10/24/23 10:08 MPV 9.7 fL (7.4-10.4) 10/24/23 10:08 Neut % (Auto) 78.2 % 10/24/23 10:08 Lymph % (Auto) 8.0 % 10/24/23 10:08 [place] % (Auto) 11.4 % 10/24/23 10:08 Eos % (Auto) 0.7 % 10/24/23 10:08 Baso % (Auto) 0.4 % 10/24/23 10:08 Neut # (Auto) 8.74 10^3/uL (1.8-7.7) H 10/24/23 10:08 Lymph # (Auto) 0.9 10^3/uL (0.8-4.8) 10/24/23 10:08 [place] # (Auto) 1.3 10^3/uL (0.2-0.9) H 10/24/23 10:08 Eos # (Auto) 0.1 10^3/uL (0.0-0.8) 10/24/23 10:08 Baso # (Auto) 0.0 10^3/uL (0.0-0.1) 10/24/23 10:08 Nucleated RBC % (auto) 0 % 10/24/23 10:08 Nucleated RBCs # 0.0 /100WBC 10/24/23 10:08 Sodium 139 mmol/L (136-145) 10/24/23 10:08 Potassium 2.9 mmol/L (3.5-5.1) L 10/24/23 10:08 Chloride 100 mmol/L (98-107) 10/24/23 10:08 Carbon Dioxide 24 mmol/L (22-29) 10/24/23 10:08 Anion Gap 17.9 (5-19) 10/24/23 10:08 BUN 18 mg/dL (8-23) 10/24/23 10:08 Creatinine 1.0 mg/dL (0.5-0.9) H 10/24/23 10:08 GFR Calculation 55.0 mL/min (90-130) L 10/24/23 10:08 Glucose 113 mg/dL (65-115) 10/24/23 10:08 Calculated Osmolality 291 mOsm/kg (285-295) 10/24/23 10:08 Calcium 8.7 mg/dL (8.5-10.5) 10/24/23 10:08 Total Bilirubin 0.3 mg/dL (0.15-1.2) 10/24/23 10:08 AST 17 U/L (0-32) 10/24/23 10:08 ALT 7 U/L (0-33) 10/24/23 10:08 Alkaline Phosphatase 105 U/L (35-105) 10/24/23 10:08 Total Protein 7.1 g/dL (6.6-8.7) 10/24/23 10:08 Albumin 3.2 g/dL (3.5-5.2) L 10/24/23 10:08 Globulin 3.9 g/dL (1.3-4.6) 10/24/23 10:08 Lipase 11 U/L (13-60) L 10/24/23 10:08 All radiology interpretation(s) finalized by discharge EKG Data EKG 1: I personally reviewed and interpreted this EKG as follows: Interpretation: Patient resting EKG was contemporaneously reviewed. She has a ventricular rate of 67 bpm. Normal [place] interval, normal QRS duration, normal corrected QT interval. Normal axis. He has low voltage across the precordial leads. These findings are essentially unchanged from prior tracings within the system. No acute ST-T wave changes. Discharge Plan Discharge Patient Disposition: Home Clinical Impression: Abdominal pain Qualifiers: Abdominal location: unspecified location Qualified Code(s): R10.9 - Unspecified abdominal pain Pneumonia Qualifiers: Pneumonia type: due to unspecified organism Laterality: bilateral Lung location: lower lobe of lung Qualified Code(s): J18.9 - Pneumonia, unspecified organism Chronic deep vein thrombosis (DVT) Qualifiers: DVT location: lower extremity Laterality: unspecified laterality Condition: Stable Prescriptions: New doxycycline hyclate 100 mg capsule 100 mg PO BID 7 Days Qty: 14 0RF Effer-K 20 mEq tablet, effervescent 20 meq PO DAILY Qty: 7 0RF No Action promethazine 12.5 mg tablet 12.5 mg PO BID PRN (Reason: Nausea) (DME) insulin syringes (disposable) 1 mL syringe See Rx Instructions .ROUTE .MEDSUPPLY Qty: 25 1RF Rx Instructions: As directed levothyroxine 112 mcg tablet 112 mcg PO QAM Qty: 90 1RF (DME) Bone growth stimulator See Rx Instructions .Route .MEDSUPPLY Qty: 1 0RF Rx Instructions: As directed (DME) Bone growth stimulator See Rx Instructions .Route .MEDSUPPLY Qty: 1 0RF Rx Instructions: As directed methotrexate sodium 25 mg/mL solution 20 mg SUBCUT .Q7days Qty: 10 1RF Rx Instructions: ON MONDAYS ropinirole 5 mg tablet 5 mg PO TID Qty: 270 0RF omeprazole 40 mg capsule,delayed release(DR/EC) 40 mg PO BID Qty: 60 3RF baclofen 10 mg tablet 10 mg PO Q6H PRN (Reason: Muscle Spasm) albuterol sulfate 90 mcg/actuation HFA aerosol inhaler 1 puff inhalation Q6H PRN (Reason: Shortness Of Breath) ondansetron 8 mg tablet,disintegrating 8 mg PO Q8H PRN (Reason: nausea/vomiting) sucralfate 1 gram Tablet 1 g PO AC&BEDTIME Qty: 120 0RF magnesium hydroxide [Milk of Magnesia] 400 mg/5 mL Suspension See Rx Instructions .ROUTE .COMPLEX PRN (Reason: Constipation) Rx Instructions: Take 30 mL orally every 72 hours as needed if no bm in 3 days. Do not give to renal patients, go to dulcolax orders. bisacodyl [Dulcolax (bisacodyl)] 10 mg Suppository See Rx Instructions .ROUTE .COMPLEX PRN (Reason: Constipation) Rx Instructions: Give 10 mg rectally daily as needed, if can't take tablets by mouth if no results from milk of magnesia. Fleet Enema 19-7 gram/118 mL Enema See Rx Instructions .ROUTE .COMPLEX PRN (Reason: Constipation) Rx Instructions: Give 118 mL rectally once daily as needed if no results from milk of magnesia or dulcolax. bisacodyl [Dulcolax (bisacodyl)] 5 mg Tablet,Delayed Release (Dr/Ec) See Rx Instructions .ROUTE .COMPLEX PRN (Reason: Constipation) Rx Instructions: Take 10 mg by mouth daily as needed if no results from milk of magnesia. folic acid 1 mg tablet 1 mg PO DAILY gabapentin 300 mg capsule 300 mg PO TID furosemide 40 mg tablet 40 mg PO DAILY fluticasone propionate 50 mcg/actuation spray,suspension 1 spray INTRANASAL BID lactulose 10 gram/15 mL solution 20 g PO DAILY Qty: 473 0RF Rx Instructions: (30ML) ondansetron HCl 4 mg tablet 4 mg PO DAILY Qty: 30 0RF Colace 100 mg Capsule 200 mg PO DAILY PRN (Reason: Constipation) nitrofurantoin monohyd/m-cryst 100 mg capsule 100 mg PO BID oxycodone-acetaminophen 5-325 mg tablet 1 - 2 tab PO Q4H PRN (Reason: Pain) Rx Instructions: UTILIZE ONLY WHEN OUT OF OXYCODONE 5MG promethazine 25 mg/mL solution 25 mg IM TID PRN (Reason: Nausea And Vomiting) Miralax 17 gram/dose powder 17 - 34 g PO DAILY Rx Instructions: Take 1-2 scoops daily for the next 3 months to keep stools soft oxycodone 5 mg tablet 5 - 10 mg PO Q4H PRN (Reason: pain) Discharge Orders: Discharge ED (Routine); Ordered 10/24/23 Ordered By: James Brown Discharge Diet: Usual diet Discharge Activity: Increase activity as tolerated Patient Instructions: Abdominal Pain (ED), Opioid Safety, Pain Management Activity Restrictions/Additional Instructions: As we discussed while you are in the emergency department your CT scan did not show any evidence of bowel obstruction, perforation or other concerning results. Your chest x-ray did suggest a possible lower lobe pneumonia and therefore we have started you on an IV antibiotic in the emergency department and were continuing an oral antibiotic for the next week. Your potassium was also slightly low in the emergency department we have given you oral potassium in the emergency department but also recommend that you take a dose of potassium over the next week. You also have the chronic clots in your legs that you are of your filter for but also need additional evaluation by vascular surgery. According to the information you provided in the emergency department your doctor is working towards that and we recommend that you have that follow-up done. If it anytime you have any new or worsening symptoms you are welcome to return to the emergency department at any time for reevaluation. Coding Level of Care Code ED Industrial Engineering Manager for Maribel Sweet
--- NOTE | 2023-10-24 08:45 | CTR_ITS ---
PROCEDURE INFORMATION: Exam: CT Abdomen And Pelvis With Contrast Exam date and time: 10/24/2023 10:57 AM Age: 68 years old Clinical indication: Abdominal pain; Generalized; Prior surgery; Surgery date: 6+ months; Surgery type: Back, ivc filter, gb; Additional info: Generalized pain and S/P upper+lower endo Wednesday TECHNIQUE: Imaging protocol: Computed tomography of the abdomen and pelvis with contrast. Radiation optimization: All CT scans at this facility use at least one of these dose optimization techniques: automated exposure control; mA and/or kV adjustment per patient size (includes targeted exams where dose is matched to clinical indication); or iterative reconstruction. Contrast material: OMNI 350; Contrast volume: 100 ml; Contrast route: INTRAVENOUS (IV); COMPARISON: CT abdomen pelvis wo con [id number] 09/29/2023 10:23 AM RADIATION DOSE METRICS: Total DLP (mGy-cm): 430.96 FINDINGS: Lungs: There are trace pleural effusions. Pleural spaces: There are trace pleural effusions with bibasilar infiltrates likely inflammatory in origin. There is a degree of nodularity involving the lung bases which was not present on prior exam and is likely inflammatory. Liver: Normal. No mass. Gallbladder and biliary ducts: There are surgical clips within the gallbladder fossa. There is mild intra and extrahepatic biliary ductal dilatation. The common bile duct measures a proximally 11 mm in size. This may be post cholecystectomy in nature. However, recommend clinical correlation and correlation with laboratory values. Previously the common bile duct measured 8.5 mm in size. Pancreas: Normal. No ductal dilation. Spleen: Normal. No splenomegaly. Adrenal glands: Normal. No mass. Kidneys and ureters: There are tiny benign-appearing renal cysts. No renal calculi are identified. No hydronephrosis is noted. Stomach and bowel: There are scattered colonic diverticula. No bowel wall thickening is appreciated. No dilated loops of large or small bowel is appreciated. Appendix: The appendix is not definitely identified. Intraperitoneal space: Small amount of nonspecific free fluid is seen within the pelvis. No free air is identified. Vasculature: The aorta is normal in caliber. There is calcified plaque involving the aorta and its branch vessels. There is an IVC filter present. The left common femoral artery 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 There also appears to be thrombus within the right common femoral vein. Lymph nodes: Unremarkable. No enlarged lymph nodes. Urinary bladder: Unremarkable as visualized. Reproductive: Unremarkable as visualized. Bones/joints: Post vertebroplasty changes are noted involving L4 and L5. No blastic or lytic bony lesions are appreciated.. Soft tissues: There is a small fat filled periumbilical hernia. CT/CT abdomen pelvis w con* [id number] IMPRESSION: 1. Small pleural effusions with bibasilar infiltrates likely inflammatory. 2. Mild intra and extrahepatic biliary ductal dilatation. While this may be post cholecystectomy in nature, recommend clinical correlation. If there is a clinical concern for a ductal stone or ductal obstruction, recommend correlation with ERCP or MRCP. 3. Trace free fluid within the pelvis. No free air is identified. COMMENTS: 1. For patients with an IVC filter, recommend assessment for a management plan for the patient's IVC filter. If there is no established management plan, recommend referral to an interventional clinician on a nonemergent basis for evaluation. 2. Consistent with the [employer] [employer]'s Incidental Findings Committee white paper (J Am Ananth Radiol 2018): Any incidental renal lesion less than 1 cm or classified as too small to characterize, or any incidental cystic renal lesion characterized as simple-appearing, is likely benign. No follow-up imaging is recommended for these lesions per consensus recommendations based on imaging criteria.
[2023-10-24] MEDS: sodium chloride 0.9% 1,000 ML 999 ML IV (09:36)
[2023-10-24 10:01] VITALS: PULSE 65; O2SAT 94
[2023-10-24 10:13] LABS: Basophils % 0.4 %; Eosinophils # 0.1 10^3/uL (0.0-0.8); Eosinophils % 0.7 %; Hematocrit 27.6 % (36-47); Lymphocytes # 0.9 10^3/uL (0.8-4.8); Mean Corpuscular HGB Conc 30.1 g/dL (30-55); Mean Corpuscular Hemoglobin 23.3 pg (27-33); Mean Corpuscular Volume 77.5 fl (85-98); Mean Platelet Volume 9.7 fL (7.4-10.4); Monocytes # 1.3 10^3/uL (0.2-0.9); Monocytes % 11.4 %; Neutrophils # 8.74 10^3/uL (1.8-7.7); Neutrophils % 78.2 %; Nucleated Red Blood Cells % 0 %; Platelet Count 361 10^3/cmm (157-399); Red Blood Count 3.56 10^6/uL (3.85-5.65); Red Cell Distribution Width 19.1 % (12.1-15.1); White Blood Count 11.19 10^3/uL (3.29-11.43)
[2023-10-24 10:30] VITALS: BP 123/64; PULSE 55; O2SAT 92
[2023-10-24 10:34] LABS: Alanine Aminotransferase 7 U/L (0-33); Albumin Level 3.2 g/dL (3.5-5.2); Alkaline Phosphatase 105 U/L (35-105); Anion Gap 17.9 (5-19); Aspartate Amino Transferase 17 U/L (0-32); Blood Urea Nitrogen 18 mg/dL (8-23); Calcium 8.7 mg/dL (8.5-10.5); Carbon Dioxide 24 mmol/L (22-29); Chloride 100 mmol/L (98-107); Globulin 3.9 g/dL (1.3-4.6); Glucose 113 mg/dL (65-115); Lipase 11 U/L (13-60); Osmolality Calculated 291 mOsm/kg (285-295); Sodium 139 mmol/L (136-145); Total Bilirubin 0.3 mg/dL (0.15-1.2); Total Protein 7.1 g/dL (6.6-8.7)
[2023-10-24 10:48] LABS: Creatinine Clr Calc Pharmacy 48.0403
[2023-10-24 10:49] LABS: Potassium 2.9 mmol/L (3.5-5.1)
[2023-10-24] MEDS: potassium bicarb 25 mEq Tablet 50 MEQ PO (11:08)
[2023-10-24] MEDS: lactated ringers 1,000 ML 999 ML IV (11:09)
[2023-10-24] MEDS: haloperidol inj 5 mg/mL INJ 1 mL 2.5 MG IVP (11:11)
[2023-10-24 12:30] VITALS: BP 123/59; PULSE 63; O2SAT 92
--- NOTE | 2023-10-24 13:05 | XRR_ITS ---
PROCEDURE INFORMATION: Exam: XR Chest Exam date and time: 10/24/2023 1:29 PM Age: 68 years old Clinical indication: Cough; Prior surgery; Surgery date: 6+ months; Surgery type: Cervical fusion; Patient HX: PT arrives via EMS with complaints of chest pain, abdominal pain, and back pain. PT had an upper and lower gi done on Wednesday at [facility]. PT has chronic nausea. PT has thick clear secreations. PT bg 127. PT states abdomen is sore to the touch. TECHNIQUE: Imaging protocol: Radiologic exam of the chest. Views: 1 view. COMPARISON: CR (ABDOMEN, ) 09/27/2023 4:29 AM FINDINGS: Lungs: There is pulmonary vascular prominence with patchy hazy perihilar and basilar infiltrates. Pulmonary findings may be due to edema from heart failure though superimposed pneumonia is not excluded. Pleural spaces: Unremarkable. No pleural effusion. No pneumothorax. Heart/Mediastinum: The cardiac silhouette is enlarged but unchanged. Bones/joints: Metal hardware is present in the cervical spine from surgical fusion. XR/XR chest 1V portable [id number] IMPRESSION: Pulmonary vascular prominence with patchy hazy infiltrates which may be due to heart failure and edema though superimposed pneumonia should also be considered.
[2023-10-24 13:30] VITALS: BP 120/56; PULSE 64; O2SAT 90
[2023-10-24] MEDS: cefTRIAXone 1,000 mg SDV 1000 MG IVP (14:56)
[2023-10-24 15:16] VITALS: BP 135/65; PULSE 77; O2SAT 92
== END 2023-10-24 15:45 | disposition home or self-care (01) ==
PROVIDERS: Emergency Provider Emergency Medicine
DX: R10.9 Unspecified abdominal pain (principal); J18.9 Pneumonia, unspecified organism; I82.409 Acute embolism and thrombosis of unspecified deep veins of unspecified lower extremity; N18.30 Chronic kidney disease, stage 3 unspecified; E03.9 Hypothyroidism, unspecified; Z79.899 Other long term (current) drug therapy; Z79.4 Long term (current) use of insulin; Z87.891 Personal history of nicotine dependence
CPT/HCPCS: 71045; 74177; 80053; 83690; 85025; 93005; 96361; 96374; 96375; 99285; J0696; J1630; J7030; J7120; Q9967

== ENCOUNTER → 2023-11-04 13:17 | Outpatient (BNVA) | payer MEDICARE, OTHER, SELFPAY | PROVIDERS: Visit Provider Orthopaedic Surgery | DX: M54.2 Cervicalgia (principal); M54.9 Dorsalgia, unspecified; G89.29 Other chronic pain; Z98.1 Arthrodesis status | CPT/HCPCS: 72040; 99213 ==

== ENCOUNTER 2023-11-11 07:38 | Oncology outpatient (recurring) (ONCR) | payer MEDICARE, OTHER, SELFPAY ==
[2023-11-11 08:04] VITALS: BP 117/68; PULSE 61; RESP 16; TEMP 36.4; O2SAT 96
[2023-11-11] MEDS: sodium chloride 0.9% 250 ML 75 ML IV (08:11)
[2023-11-11] MEDS: ferric carboxy (PYXIS) 750 MG in sodium chloride 0.9% (100 ml) 100 ML 345 MG IV (08:12)
[2023-11-11 09:07] VITALS: BP 117/64; PULSE 46; RESP 16; TEMP 36.4; O2SAT 94
== END 2023-12-16 08:51 | disposition home or self-care (01) ==
PROVIDERS: Visit Provider Physician Assistant
DX: D64.9 Anemia, unspecified (principal); Z79.899 Other long term (current) drug therapy
CPT/HCPCS: 96365; J1439; J7050

== ENCOUNTER 2023-11-18 08:20 | Emergency (ER) | payer MEDICARE, OTHER, SELFPAY ==
[2023-11-18] VITALS (18 sets, daily range): BP systolic 116–147; BP diastolic 58–73; PULSE 55–87; RESP 12–25; TEMP 36.1; O2SAT 95–99; BMI 22.6
--- NOTE | 2023-11-18 08:21 | CT_ITS ---
WS: [id number] CT HEAD NONCONTRAST HISTORY: Symptoms of acute stroke TECHNIQUE: Contiguous axial imaging performed through the brain in 2.5 mm imaging. Bone and soft tiss ue windows. Sagittal and coronal reformats reviewed. All CT scans at [facility] use at least one of these dose optimization techniques: automated exposure control; mA and/or kV adjustment per pa tient size (includes targeted exams where dose is matched to clinical indication); or iterative recon struction. DLP: 1091.18 mGy COMPARISON: 09/27/2023, 05/29/2023 No acute intracranial hemorrhage, midline shift or mass effect. Mild atrophy and mild small vessel disease. No acute infarct. Ventricles: Normal size with no hydrocephalus. No inferior displacement of the cerebellar tonsils. Paranasal sinuses: Mild mucoperiosteal thickening in the ethmoid air cells. Mastoid air cells: Well pneumatized. Calvarium and scalp: Skull is intact with no soft tissue edema or swelling. Dense calcification to the cavernous carotid arteries. CT/CT head thrombolytic [id number] IMPRESSION: 1. No acute intracranial hemorrhage or edema. 2. Mild atrophy and small vessel disease.
--- NOTE | 2023-11-18 08:21 | ECG_ITS ---
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 Measurements Intervals Burgess Rate: 67 P: 61 PA: 169 QRS: 45 QRSD: 94 T: 44 QT: 420 QTc: 446 Interpretive Statements SINUS RHYTHM Compared to ECG 10/24/2023 08:38:14 No significant changes Electronically Signed On 11-18-2023 9:56:56 CDT by Chava Mckinley M.D. [email or web address] mississippiWit Dot [employer] Incmercy health allen hospitalRipple Commerce/store/[id number]
--- NOTE | 2023-11-18 08:22 | ED_ITS ---
HPI - Neuro Symptoms/Deficit 2 General: Chief Complaint: Neuro Symptoms/Deficit Stated Complaint: stroke Time Seen by Provider: 11/18/23 08:20 History of Present Illness: Patient seen prior to arrival time in the chart because the wrong patient was first entered. I seen patient after they had moved here from the ambulance cot to the CT gurney in the CT suite at around 0816. 68-year-old female presents emergency ro om via EMS as a stroke alert from home. Her last known well was around 1130 last night she woke up this morning with left-sided deficits weakness and facial weakness. She is awake and answers questions. She is complaining of weakness on the left side her face or arm and leg. She does not participate significantly in stroke score testing. She denies any chest pain. She is outside the window for thrombolysis. Initially she has a history of acute/subacute DVT on 09/22/2023 was done as an outpatient but I do not see in her medicine list that she is ever started on any anticoagulants or contacting her doctor's office to see if they prescribed there are none [facility] clinic. Associated symptoms: Deny chest pain Review of Systems 2 Const: Denies: fever(s) or chills Card: Denies: chest pain Resp: Denies: dyspnea GI: Denies: abdominal pain : Denies: dysuria, urinary frequency or urinary urgency Musc: Denies: neck pain or back pain Skin/Breast: Denies: rash PFSH ED 2 PFSH: Medical History History of deep vein thrombosis GERD (gastroesophageal reflux disease) Pre-operative clearance DVT (deep venous thrombosis) Pneumonia Acute anemia Hematoma complicating a procedure Cervical adenopathy GI bleed Osteoarthritis, shoulder Cervical spondylosis with myelopathy GERD with esophagitis Allergic rhinitis due to allergen RLS (restless legs syndrome) Substance or medication-induced sleep disorder, insomnia type Anxiety and depression High risk medication use Seropositive rheumatoid arthritis of multiple sites Extrapyramidal and movement disorder CKD (chronic kidney disease) stage 3, GFR 30-59 ml/min Lung nodule, solitary Prediabetes Hyperlipidemia Iron deficiency anemia Hypothyroidism Surgical History S/P insertion of IVC (inferior vena caval) filter Status post cervical spinal fusion History of cholecystectomy History of appendectomy History of delivery History of hysterectomy with bilateral oophorectomy History of ankle surgery left Previous back surgery Social History Smoking and tobacco/nicotine status: never used tobacco/nicotine Quit status (tobacco/nicotine): has quit using Year quit tobacco: 2009 Former quit date comment: Smoked for 9 months Alcohol intake: current Alcohol intake frequency: holidays/special occasions only Substance/Drug Use: never NIH stroke score 2 NIHSS: Level Of Consciousness - 1a: 0 Level Of Consciousness Questions - 1b: Both Correct Level Of Consciousness Commands - 1c: Both Correct Best Gaze - 2: Normal Visual Castillo - 3: No Visual Loss Facial Palsy - 4: N ormal Motor Arm Right - 5: No Drift Motor Arm Left - 5: Drift Motor Leg Right - 6: No Drift Motor Leg Left - 6: No Effort Against [place] Limb Ataxia - 7: Present In One Limb Sensory - 8: Mild To Moderate Loss Best Language - 9: No Aphasia Dysarthia - 10: Normal Extinction And Inattention - 11: 0 Score: Total Score: 6 Physical Exam 2 Const: GENERAL APPEARANCE: cooperative ORIENTATION/CONSCIOUSNESS: Yes awake, Yes oriented to person, Yes oriented to place and Yes oriented to time HENMT: COMMON NORMALS: normocephalic, atraumatic and hearing grossly normal bilaterally HEAD & SCALP: normocephalic and atraumatic Resp: COMMON NORMALS: normal respiratory effort, No retractions, No use of accessory muscles and clear to auscultation bilaterally AUSCULTATION: clear to auscultation bilaterally Cardio: COMMON NORMALS: regular rate, regular rhythm and No murmurs present (Cardio) RATE: regular rate RHYTHM: regular rhythm GI: COMMON NORMALS: Soft to palpation and No hepatosplenomegaly present A USCULTATION: Yes normoactive bowel sounds PALPATION: Yes Soft to palpation, No Tenderness to palpation present (GI), No Guarding due to palpation present (GI) and Yes No hepatosplenomegaly present Extremity: COMMON NORMALS: normal to inspection, capillary refill normal, no clubbing, cyanosis or edema, no calf tenderness and no pedal edema Neuro: SENSORIUM/ORIENTATION: Yes oriented to person, Yes oriented to place and Yes oriented to time Skin: COMMON NORMALS: no rashes or lesions noted GENERAL SKIN EXAM: no rashes or lesions noted Course 2 Vital Signs: Vital signs: Vital Signs Temperature 97.0 F L 11/18/23 08:21 Pulse Rate 65 11/18/23 11:50 Respiratory Rate 19 H 11/18/23 11:50 Blood Pressure 146/63 11/18/23 11:50 Pulse Oximetry 98 11/18/23 11:50 Oxygen Delivery Me thod Room Air 11/18/23 08:21 MDM - Neuro Symptoms/Deficit Medical Decision Making All of your symptoms have resolved. She is no findings on repeat exam. She ambulates without difficulty. She was hospitalized recently had a similar episode determined to be a functional symptoms. Will go ahead and discharge the patient home. She is anemic with some mild chronic kidney disease follow-up with her primary care doctor regarding this. Reviewing her chart also found that she had previously had a DVT she is not on any anticoagulants but she did have an IVC placed shortly after the finding of the advanced of her DVT in her right leg. Medical Records I reviewed the patient's medical records. Lab Data I reviewed the patient's lab results. 11/18/23 08:44 11/18/23 08:[address] 11/18/23 08:21 IMPRESSION: 1. No acute intracranial hemorrhage or edema. 2. Mild atrophy and small vessel disease. Head/Neck CTA 11/18/23 08:33 IMPRESSION: 1. Less than 50% cervical carotid artery stenosis. 2. 50% stenosis, bilateral cavernous carotid arteries. 3. No [place] aneurysm or occlusion. No stenosis in the [place]. 4. Pulmonary nodules noted in the central lungs on a few images included on the CT angiogram. Suspect tree-in-bud airspace disease. Consider follow-up chest CT evaluation. 5. Unremarkable [place] of Kat. Laboratory Results WBC 6.92 10^3/uL (3.29-11.43) 11/18/23 08:44 RBC 3.89 10^6/uL (3.85-5.65) 11/18/23 08:44 Hgb 9.40 g/dL (11.27-16.99) L 11/18/23 08:44 Hct 31.2 % (36-47) L 11/18/23 08:44 MCV 80.2 fl (85-98) L 11/18/23 08:44 MCH 24.2 pg (27-33) L 11/18/23 08:44 MCHC 30.1 g/dL (30-55) 11/18/23 08:44 RDW 21.9 % (12.1-15.1) H 11/18/23 08:44 Plt Count 284 10^3/cmm (157-399) 11/18/23 08:44 MPV 9.2 fL (7.4-10.4) 11/18/23 08:44 Neut % (Auto) 58.3 % 11/18/23 08:44 Lymph % (Auto) 23.8 % 11/18/23 08:44 Runnels % (Auto) 10.4 % 11/18/23 08:44 Eos % (Auto) 7.1 % 11/18/23 08:44 Baso % (Auto) 0.3 % 11/18/23 08:44 Neut # (Auto) 4.03 10^3/uL (1.8-7.7) 11/18/23 08:44 Lymph # (Auto) 1.7 10^3/uL (0.8-4.8) 11/18/23 08:44 Runnels # (Auto) 0.7 10^3/uL (0.2-0.9) 11/18/23 08:44 Eos # (Auto) 0.5 10^3/uL (0.0-0.8) 11/18/23 08:44 Baso # (Auto) 0.0 10^3/uL (0.0-0.1) 11/18/23 08:44 Nucleated RBC % (auto) 0 % 11/18/23 08:44 Nucleated RBCs # 0.0 /100WBC 11/18/23 08:44 PT 13.90 SECONDS (12.1-14.9) 11/18/23 08:44 INR 1.04 (0.8-1.2) 11/18/23 08:44 APTT 37.7 SECONDS (23.9-36.7) H 11/18/23 08:44 Sodium 138 mmol/L (136-145) 11/18/23 08:44 Potassium 3.6 mmol/L (3.5-5.1) 11/18/23 08:44 Chloride 100 mmol/L (98-107) 11/18/23 08:44 Carbon Dioxide 25 mmol/L (22-29) 11/18/23 08:44 Anion Gap 16.6 (5-19) 11/18/23 08:44 BUN 17 mg/dL (8-23) 11/18/23 08:44 Creatinine 1.4 mg/dL (0.5-0.9) H 11/18/23 08:44 GFR Calculation 37.3 mL/min (90-130) L 11/18/23 08:44 Glucose 134 mg/dL (65-115) H 11/18/23 08:44 POC Glucose 129 mg/dL (70-110) H 11/18/23 08:33 Calculated Osmolality 290 mOsm/kg (285-295) 11/18/23 08:44 Calcium 9.4 mg/dL (8.5-10.5) 11/18/23 08:44 Total Bilirubin 0.3 mg/dL (0.15-1.2) 11/18/23 08:44 AST 18 U/L (0-32) 11/18/23 08:44 ALT 6 U/L (0-33) 11/18/23 08:44 Alkaline Phosphatase 126 U/L (35-105) H 11/18/23 08:44 Total Protein 7.9 g/dL (6.6-8.7) 11/18/23 08:44 Albumin 3.5 g/dL (3.5-5.2) 11/18/23 08:44 Globulin 4.4 g/dL (1.3-4.6) 11/18/23 08:44 Urine Color Yellow (Yellow) 11/18/23 10:11 Urine Appearance Clear (CLEAR) 11/18/23 10:11 Urine pH 8.0 (5-7) A 11/18/23 10:11 Ur Specific [place] 1.020 (1.005-1.030) 11/18/23 10:11 Urine Protein 1+ (Negative) A 11/18/23 10:11 Urine Glucose (UA) Negative (Normal) 11/18/23 10:11 Urine Ketones Negative (Negative) 11/18/23 10:11 Urine Blood Negative (Negative) 11/18/23 10:11 Urine Nitrate Negative (Negative) 11/18/23 10:11 Urine Bilirubin Negative (Negative) 11/18/23 10:11 Urine Urobilinogen 1.0 mg/dL (Negative) 11/18/23 10:11 Ur Leukocyte Esterase Negative (Negative) 11/18/23 10:11 Urine RBC 0-2 /hpf (0-2) 11/18/23 10:11 Urine WBC 0-5 /hpf (0-5) 11/18/23 10:11 Ur Squamous Epith Cells 0-5 /hpf (0-5) 11/18/23 10:11 Amorphous Sediment Not Reportable 11/18/23 10:11 Urine Bacteria None seen /hpf (NONE) 11/18/23 10:11 Hyaline Casts 0.40 /lpf 11/18/23 10:11 Salicylates < 0.3 mg/dL (3-10) L 11/18/23 08:44 Urine Opiates Screen Positive ng/mL (Negative) H 11/18/23 10:11 Acetaminophen < 5.0 ug/mL (10-30) L 11/18/23 08:44 Ur Barbiturates Screen Negative ng/mL (Negative) 11/18/23 10:11 Ur Phencyclidine Scrn Negative ng/mL (Negative) 11/18/23 10:11 Ur Amphetamines Screen Negative ng/mL (Negative) 11/18/23 10:11 U Benzodiazepines Scrn Positive ng/mL (Negative) H 11/18/23 10:11 Urine Cocaine Screen Negative ng/mL (Negative) 11/18/23 10:11 U Marijuana (THC) Screen Positive ng/mL (Negative) H 11/18/23 10:11 Ethyl Alcohol < 10 mg/dL (0-10) 11/18/23 08:44 All radiology interpretation(s) finalized by discharge Discharge Plan Discharge Patient Disposition: Home Clinical Impression: Neurologic complaint, functional, History of deep vein thrombosis, S/P insertion of IVC (inferior vena caval) filter Condition: Stable Prescriptions: No Action promethazine 12.5 mg tablet 12.5 mg PO BID PRN (Reason: Nausea) (DME) insulin syringes (disposable) 1 mL syringe See Rx Instructions .ROUTE .MEDSUPPLY Qty: 25 1RF Rx Instructions: As directed levothyroxine 112 mcg tablet 112 mcg PO QAM Qty: 90 1RF (DME) Bone growth stimulator See Rx Instructions .Route .MEDSUPPLY Qty: 1 0RF Rx Instructions: As directed (DME) Bone growth stimulator See Rx Instructions .Route .MEDSUPPLY Qty: 1 0RF Rx Instructions: As directed methotrexate sodium 25 mg/mL solution 20 mg SUBCUT .Q7days Qty: 10 1RF Rx Instructions: ON MONDAYS ropinirole 5 mg tablet 5 mg PO TID Qty: 270 0RF baclofen 10 mg tablet 10 mg PO Q6H PRN (Reason: Muscle Spasm) albuterol sulfate 90 mcg/actuation HFA aerosol inhaler 1 puff inhalation Q6H PRN (Reason: Shortness Of Breath) pantoprazole 40 mg tablet,delayed release (DR/EC) 40 mg PO BID Simbrinza 1-0.2 % drops,suspension 1 drp ophthalmic (eye) BID lactulose 10 gram/15 mL solution 30 ml PO DAILY PRN (Reason: Constipation) Effer-K 20 mEq tablet, effervescent 20 meq PO DAILY PRN (Reason: WHILE TAKING LASIX) oxycodone 10 mg tablet 10 mg PO Q8H PRN (Reason: Pain) ondansetron 8 mg tablet,disintegrating 8 mg PO Q8H PRN (Reason: nausea/vomiting) sucralfate 1 gram Tablet 1 g PO AC&BEDTIME Qty: 120 0RF bisacodyl [Dulcolax (bisacodyl)] 5 mg Tablet,Delayed Release (Dr/Ec) 10 mg PO DAILY PRN (Reason: Constipation) folic acid 1 mg tablet 1 mg PO DAILY gabapentin 300 mg capsule 300 mg PO TID furosemide 40 mg tablet 40 mg PO DAILY fluticasone propionate 50 mcg/actuation spray,suspension 1 spray INTRANASAL BID polyethylene glycol 3350 [Miralax] 17 gram/dose powder 17 - 34 g PO DAILY Rx Instructions: Take 1-2 scoops daily for the next 3 months to keep stools soft Discharge Orders: Discharge ED (Routine); Ordered 11/18/23 Ordered By: Sammy Plaza Discharge Diet: Usual diet Discharge Activity: Increase activity as tolerated Patient Instructions: Opioid Safety, Pain Management Activity Restrictions/Additional Instructions: Thank you for choosing [facility] for your healthcare needs today. It is very important that you follow up as instructed or that you return to the Emergency Department should you have concerns or if your condition changes or worsens in any way. Follow-up your primary care doctor within the next week. Coding Level of Care Code ED Advance Agent for Maribel Sweet
--- NOTE | 2023-11-18 08:33 | CT_ITS ---
WS: [id number] CT ANGIOGRAM CEREBRAL AND CAROTID ARTERIES HISTORY: acute left sided weakness TECHNIQUE: CT angiogram is performed of the carotid and cerebral arteries. During arterial injection imaging is obtained from the skull vertex to the aortic arch in 1.25 mm imaging. Coronal and sagittal reformats are submitted. Additional multi planar reformats of the carotid and cerebral arteries are submitted, MIP imaging also reviewed. NASCET criteria utilized. All CT scans at [employer] us e at least one of these dose optimization techniques: automated exposure control; mA and/or kV adjust ment per patient size (includes targeted exams where dose is matched to clinical indication); or iter ative reconstruction. CONTRAST: Omnipaque 350; 100 mL IV. DLP: 459.62 mGy.cm COMPARISON: CT head 11/18/2023 Carotid Angiogram: Right carotid: Common carotid artery: Arises normally from the innominate artery. No significant plaque or stenosis. Internal carotid artery: Very mild plaque. Mild intimal thickening with no stenosis. External carotid artery: Patent. Left carotid: Common carotid artery: Arises normally from the aorta. No significant plaque or stenosis. Internal carotid artery: Plaque and intimal thickening is slightly greater on the LEFT than the RIGHT at the bifurcation. No high-grade stenosis. External carotid artery: Patent. Right vertebral artery: Mild scattered plaque. Patent. Left vertebral artery: Normally arises from the LEFT subclavian artery. LEFT vertebral artery is mild ly dominant. Subclavian arteries: No stenosis or significant abnormality. Upper thorax: Hyperinflated lungs. There is small bilateral nodular opacifications noted in the centr al lungs seen on the first few images at the lung bases. Suspect this is probably tree-in-bud airspac e disease and nodular opacification from endobronchial pneumonia due to the branching pattern. Mild a therosclerosis aorta. Thyroid gland: Normal. Osseous structures: Extensive thoracic spine fusion hardware. CEREBRAL ANGIOGRAM: Intracranial vertebral arteries: Dominant LEFT vertebral artery. Both vertebral arteries are patent. Basilar artery: No significant stenosis or occlusion. No aneurysm. Intracranial Internal carotid arteries: Intracranial carotid artery calcification with stenosis estim ated near 50% bilaterally. Middle cerebral arteries: Normal. Anterior cerebral arteries and ACOM: Normal. Posterior cerebral arteries and PCOM's: Normal. Dural venous sinuses are normally enhancing. Mastoid air cells: Normal. Paranasal sinuses: Normal. Calvarium: Normal. CT/CT angio headneck* [id number] IMPRESSION: 1. Less than 50% cervical carotid artery stenosis. 2. 50% stenosis, bilateral cavernous carotid arteries. 3. No [place] of Kat aneurysm or occlusion. No stenosis in the [place] of [place] lis. 4. Pulmonary nodules noted in the central lungs on a few images included on e CT angiogram. Suspect tree-in-bud airspace disease. Consider follow-up chest CT evaluation. 5. Unremarkable [place] of Kat.
[2023-11-18 08:38] LABS: Glucose Point of Care 129 mg/dL (70-110)
[2023-11-18 08:51] LABS: Basophils % 0.3 %; Eosinophils # 0.5 10^3/uL (0.0-0.8); Eosinophils % 7.1 %; Hematocrit 31.2 % (36-47); Lymphocytes # 1.7 10^3/uL (0.8-4.8); Lymphocytes % 23.8 %; Mean Corpuscular HGB Conc 30.1 g/dL (30-55); Mean Corpuscular Hemoglobin 24.2 pg (27-33); Mean Corpuscular Volume 80.2 fl (85-98); Mean Platelet Volume 9.2 fL (7.4-10.4); Monocytes # 0.7 10^3/uL (0.2-0.9); Monocytes % 10.4 %; Neutrophils # 4.03 10^3/uL (1.8-7.7); Neutrophils % 58.3 %; Nucleated Red Blood Cells % 0 %; Platelet Count 284 10^3/cmm (157-399); Red Blood Count 3.89 10^6/uL (3.85-5.65); Red Cell Distribution Width 21.9 % (12.1-15.1); White Blood Count 6.92 10^3/uL (3.29-11.43)
[2023-11-18 09:00] LABS: INR 1.04 (0.8-1.2)
[2023-11-18 09:01] LABS: Partial Thromboplastin Time 37.7 SECONDS (23.9-36.7)
[2023-11-18 09:06] LABS: Alanine Aminotransferase 6 U/L (0-33); Albumin Level 3.5 g/dL (3.5-5.2); Alkaline Phosphatase 126 U/L (35-105); Anion Gap 16.6 (5-19); Aspartate Amino Transferase 18 U/L (0-32); Blood Urea Nitrogen 17 mg/dL (8-23); Calcium 9.4 mg/dL (8.5-10.5); Carbon Dioxide 25 mmol/L (22-29); Chloride 100 mmol/L (98-107); Globulin 4.4 g/dL (1.3-4.6); Glomerular Filtration Rate 37.3 mL/min (90-130); Glucose 134 mg/dL (65-115); Osmolality Calculated 290 mOsm/kg (285-295); Potassium 3.6 mmol/L (3.5-5.1); Sodium 138 mmol/L (136-145); Total Bilirubin 0.3 mg/dL (0.15-1.2); Total Protein 7.9 g/dL (6.6-8.7)
[2023-11-18 09:10] LABS: Acetaminophen < 5.0 ug/mL (10-30); Alcohol Level < 10 mg/dL (0-10); Creatinine Clr Calc Pharmacy 35.2494; Salicylate < 0.3 mg/dL (3-10)
--- NOTE | 2023-11-18 09:35 | PC.NURSE ---
pt had intermittent episodes of 32bpm on playground monitor, ZOLL pads placed on pt, adjusted cardiac leads, Dr. Plaza notified. pt HR currently 66bpm, returned to baseline before able to manually palpate pulse.
--- NOTE | 2023-11-18 09:39 | PC.PHAR ---
PT IS NO LONGER RESIDENT AT [facility]. 11/18/23
[2023-11-18] MEDS: iohexol 350 mg/mL 500 mL Btl (per mL) IV (10:03)
[2023-11-18 10:28] LABS: Charge for UA Resulting for Rev
[2023-11-18 10:32] LABS: Bilirubin Urine Negative (Negative); Blood Urine Negative (Negative); Glucose Urine UA Negative (Normal); Ketones Urine Negative (Negative); Leukocyte Esterase Urine Negative (Negative); Nitrate Urine Negative (Negative); Protein Urine 1+ (Negative); Urine Appearance Clear (CLEAR); Urine Color Yellow (Yellow)
[2023-11-18 10:34] LABS: Bacteria Urine None Seen /hpf; RBC Urine 0-2 /hpf (0-2); Squamous Epithelial Cell Urine 0-5 /hpf (0-5); WBC Urine 0-5 /hpf (0-5)
[2023-11-18 10:39] LABS: Amphetamines Screen Urine Negative (Negative); Barbiturates Screen Urine Negative (Negative); Benzodiazepines Screen Urine Positive (Negative); Cocaine Screen Urine Negative (Negative); Opiate Screen Urine Positive (Negative); PCP Screen Urine Negative (Negative); THC Screen Urine Positive (Negative)
== END 2023-11-18 12:00 | disposition home or self-care (01) ==
PROVIDERS: Emergency Provider Family Medicine
DX: F44.4 Conversion disorder with motor symptom or deficit (principal); Z86.718 Personal history of other venous thrombosis and embolism; Z98.890 Other specified postprocedural states; Z87.891 Personal history of nicotine dependence; N18.30 Chronic kidney disease, stage 3 unspecified; E78.5 Hyperlipidemia, unspecified
CPT/HCPCS: 36416; 70450; 70496; 70498; 80053; 80306; 80307; 81003; 81015; 82962; 85025; 85610; 85730; 93005; 99285; Q9967

== ENCOUNTER 2023-12-16 08:52 | Oncology outpatient (recurring) (ONCR) | payer MEDICARE, OTHER, SELFPAY ==
--- OUTSIDE RECORDS SUMMARY | 2023-12-18 08:04 | XMS_ITS | Patient Health Record ---
Author Name Unknown Organization [facility] Address [address] [place] [address] Care Team Providers Care Outreach Counselor Name Role Phone KareemMikeas Unavailable [phone] Andrea Bashir Unavailable [phone] Corby Mena Unavailable [phone] Judah Shelton Unavailable [phone] Reason For Referral Reason PVD - OZH 10/24/2023 : The left common femoral artery 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 Also thrombus within the right common femoral vein (IVC filter in place) Diagnosis 1 Peripheral vascular disease (I73.9) Referring Provider First Name Mode Referring Provider Last Name Irineo Referring Provider Speciality Interventi onal Pain Medicine Referred Organization [facility] [employer] Referred Provider Corby Mena Referred Address [address],[address],[place] Referred Provider Specialty Vascular [employer] General Notes Pamella Marlow 11/23/19 04:10:15 PM >Please schedule with Dr. Shelton or Wilmer Mena Brittany M 11/23/2023 04:37:14 PM >Called patient LVMWilmer Brittany M 11/29/2023 02:10:10 PM >Appointment scheduled on 12/01 @ 2[place] 12/09/2023 08:14:16 AM >patient canceled due to being sick and will rescheduleWilmer Brittany M 12/09/2023 11:24:41 AM >Called patient LVM Clinical Notes Hermelinda Genao 03:39:32 PM >More information to come, Hermelinda Genao 11/05/2023 09:04:39 AM >US and CT shows thrombus in right common femoral vein and IVC filter in place, 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 Referral Priority Routine Problems Problem Type SNOMED Code ICD Code Onset Dates Problem Status W/U Status Risk Notes Problem [id number] Peripheral vascular disease (I73.9) Active confirmed Encounters Encounter Location Date Provider Diagnosis [facility] [address] [place] [address] 12/09/2023 Judah Shelton [facility] [address] [place] [address] 11/05/2023 Andrea Bashir [facility] [address] [place] [address] 11/23/2023 Corby Mena Plan Of Treatment No Information Insurance Providers Payer Name Payer Address Payer Phone Subscriber Number Group Number Insured Name Patient Relationship to Insured Coverage Start Date Coverage End Date [place] [address] [place] [phone] [id number] Tosha Perry Self - patient is the insured [place] of [address] [employer] [place] [id number] Tosha Perry Self - patient is the insured
--- OUTSIDE RECORDS SUMMARY | 2023-12-18 08:04 | XMS_ITS ---
Author Name Unknown Organization [facility] Address [address] [place] [address] Care Team Providers Care Planning Associate Name Role Phone Rajesh Serna Unavailable [phone] Judah Shelton Unavailable [phone] REASON FOR VISIT Schedule appointment Encounters Encounter Location Date Provider Diagnosis [facility] [address] [place] [address] [address] [place] [address] 12/09/2023 Judah Shelton Plan Of Treatment No Information Progress Notes * Alireza VANB:1955 (68 yo F)Acc No.[id number]:12/09/2023 Patient:?Gray VANander :1955???Age:68 Y???Sex:Female Address:[address], [place], [address] * * Date:?
--- OUTSIDE RECORDS SUMMARY | 2023-12-18 08:04 | XMS_ITS ---
Author Name Unknown Organization [facility] Address [address] [place] [address] Care Team Providers Care [employer] Inspector Name Role Phone Rajesh Serna Unavailable [phone] Judah Shelton Unavailable [phone] REASON FOR VISIT PVD - OZH CT abd/pelvis 10/24/2023: The left common femoral artery 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 Also thrombus within the right common femoral vein (IVC filter in place) Encounters Encounter Location Date Provider Diagnosis [facility] [address] [place] [address] 12/02/2023 Judah Shelton Plan Of Treatment No Information Progress Notes * Carmen PERRYaDOB:1955 (68 yo F)Acc No.[id number]:12/02/2023 Progress Notes Patient:?Tosha PERRY Provider:?Judah Shelton MD :1955???Age:68 Y???Sex:Female D ate:12/02/2023 Address:[address], [place] Subjective: * Chief Complaints: * ???1. PVD - OZH CT abd/pelvi s 10/24/2023: The left common femoral artery 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 Also thrombus within the right common femoral vein (IVC filter in place). * Medical History:? Objective: * Vitals:? Assessment: Plan: * Treatment: Care Plan: * Problems:? * Billing Information: * Visit Code:? * Procedure Codes:? * Electronic signature of Trent Shelton MD on 12/18/2023 at 08:04 AM CDT Sign off status: Pending * Provider:?Judah Shelton MD Date:?12/01 Generated for Shen lindo/Sindy/Chandler on:?12/18/2023 08:04 AM CDT
--- OUTSIDE RECORDS SUMMARY | 2023-12-18 08:04 | XMS_ITS | Continuity of Care Document ---
Author Name Unknown Organization [facility] Address [address] [place] [address]- Care Team Providers Care Cellophaner Name Role Phone Diana Galvan Primary Care Physician Encounter [employer] Number [id number] Date(s): 11/29/23 - 11/29/23 [facility] [address] [place] [address] [phone] Encounter Diagnosis Chirinos's esophagus(Discharge Diagnosis) - 11/29/23 Discharge Disposition: .Discharge to Home (Routine) Attending Physician: Sofía Odell MD Admitting Physician: Sofía Odell MD Allergies, Adverse Reactions, Alerts Substance Reaction Severity Status sulfa drugs increased activity Mild Active ibuprofen gastric ulcer Moderate Active acetaminophen messes with my restless legs Mild Active Morphine Sulfate makes me nuts Mild Active prochlorperazine restless Mild Active amitriptyline hallucination Moderate Active Assessment and Plan Extracted from: Title:H&P Note Author:Sofía Odell MD Date: Orders: Sodium Chloride 0.9% intravenous solution 1,000 mL, Route: IV, Routine, Start Date: 11/29/23 11:45:00 CDT, 90 Days, Stop date 02/27/24 11:44:00 [employer], Rate= 15 ml/hr, hr, Total Vol ml = 1,000, Disp Location: [facility] PACU, Populate Charting Weight From Order sodium chloride flush, 5 mL, INJ, Route: IVP, Q12H, Start Date: 11/29/23 11:45:00 CDT, Duration: 90 Days, Stop date: 02/26/24 21:00:00 [employer], Routine, Disp Location: [facility] PACU, GEN DISP sodium chloride flush, 5 mL, INJ, Route: IVP, Q10Min, PRN, See Comment Note, Start Date: 11/29/23 11:45:00 CDT, Duration: 90 Days, Stop date: 02/27/24 10:44:00 [employer], Routine, Disp Location: [facility] PACU, GEN DISP Consent, Gastroscopy with possible dilatation and biopsies (Add RFA and EMR consent if needed) Consent, gastroscopy with possible dilatation and/or biopsy (add feeding tube placement as needed) Initiate Plan, Gastroscopy OP Pre Admit 1 Initiate Plan, Gastroscopy OP Pre Admit 2 Initiate Plan, Gastroscopy OP Pre Procedure Initiate Plan, IV Device Maintenance Protocol Adult IV Device Maintenance Protocol - Adult, Initiate IV Insertion, Place 20g cathlon. If patient has a port, access with appropriate needle. Notify Provider Nursing Communication Order, Initiate Anesthesia Pre/Post Orders (for MAC to General Anesthesia) Nursing Communication Order, If Anesthesia involved Initiate Anesthesia Pre- Admission 1 orders Nursing Communication Order, If Anesthesia involved Initiate Anesthesia Pre- Admission 2 orders Nursing Communication Order, If on Coumadin (Warfarin) in last 5 days, obtain STAT Protime. Order a urine test on all women between the ages of 10-55 unless the patient has had a hysterectomy, sterilization or has completed menopause/ceased menses for one calendar year. ?? 1. Esophagitis 2. Chirinos's esophagus ?? Proceed with EGD. Pending EGD will make??recommendations??on dosing of??PPI. ?? Risk of procedure including sedation related complication, bleeding perforation??were discussed with patient, and she agreed to proceed. ? Future Scheduled Tests Radiology* US VL Venous LE Bilateral 11/29/23 Medications albuterol 90 mcg/inh inhalation powder 2 puff, Inhalation, Q6H, Refill(s) 0 Start Date: 11/09/23 Status: Ordered ALPRAZolam 0.5 mg, By mouth, QID, PRN Anxiety, 30 tab, 0, Substitution Permitted Start Date: 10/07/23 Status: Ordered baclofen 10 mg oral tablet 10 mg = 1 tab, By mouth, Q6H, as needed, Refill(s) 0 Start Date: 10/07/23 Status: Ordered Dulcolax Laxative 5 mg oral tablet 10 mg = 2 tab, By mouth, Daily, as needed if no results from MOM, Refill(s) 0 Start Date: 10/11/23 Status: Ordered fluticasone 50 mcg/inh inhalation powder Inhalation, BID, Refill(s) 0 Start Date: 10/07/23 Status: Ordered folic acid 1 mg oral tablet 1 mg = 1 tab, By mouth, Daily, # 30 tab, Refill(s) 0 Start Date: 10/07/23 Status: Ordered gabapentin 300 mg oral capsule 300 mg = 1 cap, By mouth, TID, # 270 cap, Refill(s) 0 Start Date: 10/07/23 Status: Ordered Lasix 40 mg oral tablet 40 mg = 1 tab, By mouth, Daily, # 30 tab, Refill(s) 0 Start Date: 10/07/23 Status: Ordered levothyroxine 112 mcg (0.112 mg) oral capsule 112 mcg = 1 cap, By mouth, Daily, # 30 cap, Refill(s) 0 Start Date: 10/07/23 Status: Ordered methotrexate 25 mg/mL injectable solution 20 mg, SubQ, QMonday, # 10 mL, Refill(s) 0 Start Date: 10/11/23 Status: Ordered Movantik 12.5 mg oral tablet 12.5 mg = 1 tab, By mouth, QAM, # 30 tab, Refill(s) 1, Pharmacy: [facility]/pharmacy #[id number], [id number], 1 tab By mouth QAM, 61.4, 10/22/23 10:29:00 CDT, kg, Weight (kg) (Clinical) Start Date: 10/22/23 Status: Ordered oxyCODONE 1 mg, By mouth, Q8H, 0, 0, Substitution Permitted Start Date: 11/29/23 Status: Ordered oxyCODONE 5 mg oral capsule 10 mg, = 2 cap, By mouth, Q4H, PRN for pain, 1-2 cap as needed, 0, 0, Substitution Permitted Start Date: 10/07/23 Status: Ordered pantoprazole 40 mg oral delayed release tablet 40 mg = 1 tab, By mouth, BID, Take on empty stomach half hour before meals, # 180 tab, Refill(s) 2,Pharmacy: [facility]/pharmacy #[id number], [id number], 1 tab By mouth BID,x60 Days,Instr:Take on empty stomach half hour before meals, 61... Start Date: 10/22/23 Stop Date: 04/19/24 Status: Ordered potassium chloride 10 mEq oral capsule, extended release 10 mEq = 1 cap, By mouth, BID, Refill(s) 0 Start Date: 11/09/23 Status: Ordered promethazine 12.5 mg oral tablet 12.5 mg = 1 tab, By mouth, BID, as needed, Refill(s) 0 Start Date: 10/07/23 Status: Ordered rOPINIRole 5 mg oral tablet 5 mg = 1 tab, By mouth, TID, Refill(s) 0 Start Date: 10/07/23 Status: Ordered Problem List Condition Confirmation Course Effective Dates Status Health St atus Informant Ex-smoker Confirmed Active patient Procedures Procedure Date Related Diagnosis Body Site Status EGD TRANSORAL BIOPSY SINGLE/MULTIPLE 11/29/23 Completed Esophagogastroduodenoscopy - Endo with Anesthesia 1 11/29/23 Completed Esophagogastroduodenoscopy/C olonoscopy - Endo with Anesthesia (Biopsy) 2 10/22/23 Completed cervical fusion 05/17/23 Completed appendectomy Completed Completed cholecystectomy Completed hysterectomy Completed IVC filter Completed left ankle Completed 1auto-populated from documented surgical case 2auto-populated from documented surgical case Results Laboratory List Name Date BMP 11/29/23 Hemogram 11/29/23 Most recent to oldest [Reference Range]: 1 Anion Gap [2-15 mEq/L] 7 mEq/L (11/29/23 12:19 PM) eGFR CKD-EPI [>=61 mL/min/1.73 m2] 51 mL /min/1.73 m2 *LOW* (11/29/23 12:19 PM) Glucose, Serum/Plasma [70-100 mg/dL] 88 mg/dL (11/29/23 12:19 PM) WBC [4.8-10.8 Thous/mm3] 6.0 Thous/mm3 (11/29/23 12:19 PM) Hct [37.0-47.0 %] 32.3 % *LOW* (11/29/23 12:19 PM) Hgb [12.0-16.0 g/dL] 10.0 g/dL *LOW* (11/29/23 12:19 PM) RBC [4.20-5.40 Million/mm3] 3.98 Million /mm3 *LOW* (11/29/23 12:19 PM) MCV [80.0-100.0 fl] 81.2 fl (11/29/23 12: PM) MCH [26.0-34.0 pg] 25.1 pg *LOW* (11/29/23: PM) MCHC [31.0-36.5 g/dL] 31.0 g/dL (11/29/23 12:19 PM) RDW [10.4-14.4 %] 23.7 % *HI* (11/29/23: PM) Platelets [130-440 Thous/mm3] 367 Thous/ mm3 (11/29/23:19 PM) MPV [9.4-12.4 fl] 9.0 fl *LOW* (11/29/23: PM) Sodium [136-145 mEq/L] 142 mEq/L (11/29/23:19 PM) Potassium [3.5-5.1 mEq/L] 3.3 mEq/L *LOW* (11/29/23: PM) Chloride [98-107 mEq/L] 104 mEq/L (11/29/23: PM) CO2 [20-31 mEq/L] 31 mEq/L (11/29/23 12:19 PM) BUN [7-18 mg/dL] 17 mg/dL (11/29/23 12: PM) Creatinine [0.55-1.02 mg/dL] 1.16 mg/dL *HI* (11/29/23 12:19 PM) Calcium [8.3-10.6 mg/dL] 9.3 mg/dL (11/29/23 12:19 PM) Vital Signs Most recent to oldest [Reference Range]: 1 2 Blood Pressure 116/51mmHg (11/29/23 1:40 PM) Blood Pressure 87/48 *<LLOW* (11/29/23 1:21 PM) 96/50 (11/29/23 1:15 PM) Height (inches) (Clinical) 64 in (11/29/23 11:35 AM) Weight (kg) (Clinical) 60.5 kg (11/29/23 11:35 AM) BMI (Clinical) 22.8 kg/m2 (11/29/23 11:35 AM) Scale Type Standing (11/29/23 11:35 AM) Social History Social History Type Response Smoking Status Former smoker; Smoke less tobacco use: Never; Former smoker last 30 days Former smoker > 30 days; Has the patient smoked in the last 365 days, even once? No entered on: 10/13/23 Sex Female Surgical operation note * Sofía Odell MD: PERFORM Sofía Odell MD: PERFORM, SIGN Sofía Odell MD: SIGN, VERIFY Sofía Odell MD: VERIFY Event Display: Operative Report Authored Date: [id number] Patient: BARRY VAN Age: 68 years Sex: Female : 1955 Associated Diagnoses: None Author: Sofía Odell MD Images EGD Procedure note: DATE 11/29/2023 OPERATION/PROCEDURE Esophagogastroduodenoscopy INDICATIONS Esophagitis REFERRING PROVIDER Diana Garcia CONSENT FOR OPERATION OR PROCEDURE The risks, benefits, and alternatives of the procedure and sedation were discussed with the patient in detail today and all questions were answered. The patient elects to proceed with the procedure and sedation as outlined. HISTORY OF PRESENT ILLNESS See H&P ASA CATEGORY III PREOPERATIVE ANESTHESIA ASSESSMENT The sedation plan was discussed with the patient today and they are a satisfactory candidate to proceed with intravenous sedation. PROCEDURAL MEDICATIONS Per anesthesia DESCRIPTION OF OPERATION/PROCEDURE Prior to proceeding, the patient???s name, date of , and procedure to be undertaken was verified with a time out. The patient was then placed in the left lateral decubitus position. The patient was monitored continuously with pulse oximetry, blood pressure monitoring, and direct observations A bite-block was placed. An adult Olympus endoscope was then placed in the oropharynx and advanced.The?? esophagus was easily intubated. The endoscope was advanced to the third portion of the duodenum and then slowly withdrawn. The esophagus appeared endoscopically normal except for 1 cm salmon mucosal tongues extending between 29 and 30 cm, and circumferential salmon mucosa immediately proximal extending between 30-37 cm. No ulceration or nodularities. Top of the gastric folds were at 37 cm from the incisors. Diaphragmatic hiatus was at 39 cm. 2 cm hiatal hernia. Previously noted esophagitis appeared to have completelyhealed. The gastric body and retroflexed view of the fundus revealed no abnormalities. The antrum was normal. The pylorus was normal. The duodenum appeared endoscopically normal. Excess air was removed and the endoscope withdrawn. The patient was assessed and was in satisfactory condition at the termination of the procedure, then transferred to the recovery area. PHOTOGRAPHS Yes BIOPSY No COMPLICATIONS None immediately. IMPRESSION Complete healing of previously noted esophagitis. Endoscopic evidence for Chirinos's esophagus (Redmond [id number]), without ulceration or nodularity. Biopsies were not repeated as these were obtained recently PLAN Daily PPI therapy lifelong. Strict antireflux measures. Repeat surveillance EGD in 3 years for Chirinos's esophagus. Electronically signed by:Sofía Odell MD 11/29/23 13:25 History and physical note * Sofía Odell MD: PERFORM Event Display: History and Physicals Authored Date: [id number] Chief Complaint EGD WITH [facility] Team Primary Care Physician??- Jose CHANEY, Diana Jorge Admitting Physician - Sofía Odell MD Attending Physician - Sofía Odell MD Arrival Date/Time??- 11/29/2023 11:02:00 History of Present Illness Patient with nausea, vomiting, bowel habit??changes was seen??in clinic recently, and was??scheduled for EGD and colonoscopy.?? EGD??showed LA??grade??C esophagitis??as??well as long??segment Barretts esophagus. ?? Biopsies from Chirinos's??mucosa??revealed no dysplasia.?? She has be on b.i.d.??PPI,and??her nausea??has resolved.?? She is feeling??better, constipation has also??resolved on Movantik.?She is here??for repeat EGD to ensure healing??of esophagitis.? Review of Systems See HPI. All other ROS reviewed as negative or not pertinent. Physical Exam Vitals & Measurements T:??96.3?F?? HR:??61?? RR:??20?? BP:??116/70?? SpO2:??97%?? WT:??60.5??kg?? General: In no acute distress.?? HEENT: No scleral icterus, PERRLA CV: Regular rate and rhythm?? Chest: Respirations even and unlabored.?? No wheezing. Abdomen: No tenderness, non distended Skin: Warm and dry Musculoskeletal: no large joint swelling Neuro: AAOX3 ?? Assessment/Plan Orders: Sodium Chloride 0.9% intravenous solution 1,000 mL, Route: IV, Routine, Start Date: 11/29/23 11:45:00 CDT, 90 Days, Stop date 02/27/24 11:44:00 [employer], Rate= 15 ml/hr, hr, Total Vol ml = 1,000, Disp Location: [facility] - PACU, Populate Charting Weight From Order sodium chloride flush, 5 mL, INJ, Route: IVP, Q12H, Start Date: 11/29/23 11:45:00 CDT, Duration: 90Days, Stop date: 02/26/24 21:00:00 [employer], Routine, [facility], GEN DISP sodium chloride flush, 5 mL, INJ, Route: IVP, Q10Min, PRN, See Comment Note, Start Date: 11/29/23 11:45:00 CDT, Duration: 90 Days, Stop date: 02/27/24 10:44:00 [employer], Routine, Disp Location: [facility] - PACU, GEN DISP Consent, Gastroscopy with possible dilatation and biopsies (Add RFA and EMR consent if needed) Consent, gastroscopy with possible dilatation and/or biopsy (add feeding tube placement as needed) Initiate Plan, Gastroscopy OP Pre Admit 1 Initiate Plan, Gastroscopy OP Pre Admit 2 Initiate Plan, Gastroscopy OP Pre Procedure Initiate Plan, IV Device Maintenance Protocol Adult IV Device Maintenance Protocol - Adult, Initiate IV Insertion, Place 20g cathlon. If patient has a port, access with appropriate needle. Notify Provider Nursing Communication Order, Initiate Anesthesia Pre/Post Orders (for MAC to General Anesthesia) Nursing Communication Order, If Anesthesia involved Initiate Anesthesia Pre- Admission 1 orders Nursing Communication Order, If Anesthesia involved Initiate Anesthesia Pre- Admission 2 orders Nursing Communication Order, If on Coumadin (Warfarin) in last 5 days, obtain STAT Protime. Order aurine test on all women between the ages of 10-55 unless the patient has had a hysterectomy, sterilization or has completed menopause/ceased menses for one calendar year. ?? 1. Esophagitis 2. Chirinos's esophagus ?? Proceed with EGD. Pending EGD will make??recommendations??on dosing of??PPI. ?? Risk of procedure including sedation related complication, bleeding perforation??were discussed with patient, and she agreed to proceed. ?? Problem List/Past Medical History Ongoing Ex-smoker Historical No qualifying data Procedure/Surgical History ???Esophagogastroduodenoscopy/Colonoscopy - Endo with Anesthesia (Biopsy) (10/22/2023)???cervical fusion (05/17/2023)???appendectomy???c- section???cholecystectomy???hysterectomy???IVC filter???left ankle Medications Home Medications (17) Active albuterol 90 mcg/inh inhalation powder??2 puff, Inhalation, Q6H ALPRAZolam??0.5 mg, PRN, By mouth, QID baclofen 10 mg oral tablet??10 mg = 1 tab, By mouth, Q6H Dulcolax Laxative 5 mg oral tablet??10 mg = 2 tab, By mouth, Daily fluticasone 50 mcg/inh inhalation powder??, Inhalation, BID folic acid 1 mg oral tablet??1 mg = 1 tab, By mouth, Daily gabapentin 300 mg oral capsule??300 mg = 1 cap, By mouth, TID Lasix 40 mg oral tablet??40 mg = 1 tab, By mouth, Daily levothyroxine 112 mcg (0.112 mg) oral capsule??112 mcg = 1 cap, By mouth, Daily methotrexate 25 mg/mL injectable solution??20 mg, SubQ, QMonday Movantik 12.5 mg oral tablet??12.5 mg = 1 tab, By mouth, QAM oxyCODONE??1 mg, By mouth, Q8H oxyCODONE 5 mg oral capsule??10 mg = 2 cap, PRN, By mouth, Q4H pantoprazole 40 mg oral delayed release tablet??40 mg = 1 tab, By mouth, BID potassium chloride 10 mEq oral capsule, extended release??10 mEq = 1 cap, By mouth, BID promethazine 12.5 mg oral tablet??12.5 mg = 1 tab, By mouth, BID rOPINIRole 5 mg oral tablet??5 mg = 1 tab, By mouth, TID Allergies amitriptyline??(hallucination) ibuprofen??(gastric ulcer) Morphine Sulfate??( makes me nuts ) acetaminophen??( messes with my restless legs ) prochlorperazine??(restless) sulfa drugs??(increased activity) Social History Social History Alcohol ??Current, 1-2 times per year Substance Abuse ??Current, Type: Marijuana. ??Several times per day Tobacco ??Smoking Status: Former smoker. ??Smokeless tobacco use: Never. ??Former smoker last 30 days: Former smoker > 30 days. Family History Breast cancer: PGM. Diabetes mellitus: BROTHER. Heart disease: MOTHER, BROTHER, AUNT, MGM, PGF, PGM and UNCLE. Hypertension: MOTHER, BROTHER and MGM. Stroke: PGF and UNCLE. Lab Results Labs??(Last two charted values on this encounter) WBC 6.0 ??(NOV 28) ?? Hgb 10.0 ??(NOV 28) ?? Hct 32.3 ??(NOV 28) ?? Platelets 367 ??(NOV 28) ?? Diagnostic Results No clinical data available for specified time frame. Electronically signed by:Sofía Odell MD 11/29/23 12:59 Patient Care team information Care Team Personnel Name: Diana Galvan Position: 2 Restricted Providers Member Role: Primary Care Physician Address: Address: [address] [place] [address]- Name: Sofía Odell MD Position: PX Physician - Gastroenterology Med Service: Gastroenterology Member Role: Admitting Physician Address: [facility] [address] [place] [address]- Care Team Related Persons Name: SRIRAM Watson Name: SRIRAM TORRES Name: NONE, GIVEN
--- OUTSIDE RECORDS SUMMARY | 2023-12-18 08:04 | XMS_ITS | Continuity of Care Document ---
Author Name Unknown Organization [facility] Address [address] 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 Ballroom Dancer Name Role Phone Diana Galvan Primary Care Physician Encounter [employer] Number [id number] Date(s): 10/22/23 - 10/22/23 [facility] [address] [place] [phone] Encounter Diagnosis Colon cancer screening(Discharge Diagnosis) - 10/22/23 Gastric ulcer(Discharge Diagnosis) - 10/22/23 Discharge Disposition: .Discharge to Home (Routine) Attending Physician: Sofía Odell MD Admitting Physician: Sofía Odell MD Allergies, Adverse Reactions, Alerts Substance Reaction Severity Status sulfa drugs increased activity Mild Active ibuprofen gastric ulcer Moderate Active acetaminophen messes with my restless legs Mild Active amitriptyline hallucination Moderate Active prochlorperazine restless Mild Active Morphine Sulfate makes me nuts Mild Active Medications ALPRAZolam 0.5 mg, By mouth, QID, PRN Anxiety, 30 tab, 0, Substitution Permitted Start Date: 10/07/23 Status: Ordered baclofen 10 mg oral tablet 10 mg = 1 tab, By mouth, Q6H, as needed, Refill(s) 0 Start Date: 10/07/23 Status: Ordered Dulcolax Laxative 10 mg rectal suppository 10 mg = 1 supp, Rectally, Daily, PRN for constipation, # 10 supp, Refill(s) 0 Start Date: 10/07/23 Status: Ordered Dulcolax Laxative 5 mg oral tablet 10 mg = 2 tab, By mouth, Daily, as needed if no results from MOM, Refill(s) 0 Start Date: 10/11/23 Status: Ordered Fleet Enema Rectally, Daily, if no results from MOM or dulcolax, Refill(s) 0 Start Date: 10/07/23 Status: Ordered fluticasone 50 mcg/inh inhalation powder Inhalation, BID, Refill(s) 0 Start Date: 10/07/23 Status: Ordered folic acid 1 mg oral tablet 1 mg = 1 tab, By mouth, Daily, # 30 tab, Refill(s) 0 Start Date: 10/07/23 Status: Ordered gabapentin 300 mg oral capsule 300 mg = 1 cap, By mouth, TID, # 270 cap, Refill(s) 0 Start Date: 10/07/23 Status: Ordered lactulose 10 g/15 mL oral syrup 20 g = 30 mL, By mouth, Daily, # 480 mL, Refill(s) 6 Start Date: 10/07/23 Status: Ordered Lasix 40 [...] Refill(s) 0 Start Date: 10/11/23 Status: Ordered Milk of Magnesia 2,400 = mg, By mouth, Q3D, as needed if no BM in 3 days, Refill(s) 0 Start Date: 10/07/23 Status: Ordered Movantik 12.5 mg oral tablet 12.5 mg = 1 tab, By mouth, QAM, # 30 tab, Refill(s) 1, Pharmacy: [facility]/pharmacy #[id number], [id number], 1 tab By mouth QAM, 61.4, 10/22/23 10:29:00 CDT, kg, Weight (kg) (Clinical) Start Date: 10/22/23 Status: Ordered ondansetron 4 mg oral tablet 4 mg = 1 tab, By mouth, Daily, # 10 tab, Refill(s) 0 Start Date: 10/11/23 Status: Ordered ondansetron 4 mg oral tablet 8 mg = 2 tab, By mouth, Q8H, as needed n/v, Refill(s) 0 Start Date: 10/07/23 Status: Ordered oxyCODONE 5 mg oral capsule 5 mg, = 1 cap, By mouth, Q4H, PRN for pain, 1-2 cap as needed, 0, 0, Substitution Permitted Start Date: 10/07/23 Status: Ordered pantoprazole 40 mg oral delayed release tablet 40 mg = 1 tab, By mouth, BID, Take on empty stomach half hour before meals, # 180 tab, Refill(s) 2,Pharmacy: [facility]/pharmacy #[id number], [id number], 1 tab By mouth BID,x60 Days,Instr:Take on empty stomach half hour before meals, 61... Start Date: 10/22/23 Stop Date: 04/19/24 Status: Ordered Percocet 5/325 oral tablet 1 tab, By mouth, Q4H, PRN Pain Moderate, 1-2 tab as needed, 15 tab, 0, 0, Substitution Permitted Start Date: 10/11/23 Stop Date: 10/16/23 Status: Ordered polyethylene glycol 3350 (Miralax) 17 = g, By mouth, Daily, 1-2 scoops, Refill(s) 0 Start Date: 10/07/23 Status: Ordered promethazine 12.5 mg oral tablet 12.5 mg = 1 tab, By mouth, BID, as needed, Refill(s) 0 Start Date: 10/07/23 Status: Ordered rOPINIRole 5 mg oral tablet 5 mg = 1 tab, By mouth, TID, Refill(s) 0 Start Date: 10/07/23 Status: Ordered sucralfate 1 g oral tablet 1 g = 1 tab, By mouth, ACHS (before meals and at bedtime), Refill(s) 0 Start Date: 10/07/23 Status: Ordered Problem List Condition Confirmation Course Effective Dates Status [facility] Informant Ex-smoker Confirmed Active patient Procedures Procedure Date Related Diagnosis Body Site Status COLONOSCOPY FLX DX W/COLLJ S PEC WHEN PFRMD 10/22/23 Completed EGD ABLATE TUMOR POLYP/LESIO N W/DILATION& WIRE 10/22/23 Completed EGD TRANSORAL BIOPSY SINGLE/MULTIPLE 10/22/23 Completed Esophagogastroduodenoscopy/C olonoscopy - Endo with Anesthesia (Biopsy) 1 10/22/23 Completed cervical fusion 05/17/23 Completed appendectomy Completed Completed cholecystectomy Completed hysterectomy Completed IVC filter Completed left ankle Completed 1auto-populated from documented surgical case Results Laboratory List Name Date BMP 10/22/23 Hemogram 10/22/23 Most recent to oldest [Reference Range]: 1 iAnion Gap 15 1 (10/22/23 11:29 AM) iChloride 98 mEq/L 2 (10/22/23 11:29 AM) iCreatinine 2.0 mg/dL 3 (10/22/23 11:29 AM) iGlucose 145 mg/dL 4 (10/22/23 11:29 AM) iHematocrit 26.0 % 5 (10/22/23 11:29 AM) iHemoglobin 8.8 g/dL 6 (10/22/23 11:29 AM) iPotassium 2.9 mEq/L 7 (10/22/23 11:29 AM) iSodium 141 mEq/L 8 (10/22/23 11:29 AM) iBUN 31 mg/dL 9 (10/22/23 11:29 AM) Anion Gap [2-15 mEq/L] 9 mEq/L (10/22/23 11:29 AM) eGFR CKD-EPI [>=61 mL/min/1.73 m2] 32 mL /min/1.73 m2 *LOW* (10/22/23 11:29 AM) Glucose, Serum/Plasma [70-100 mg/dL] 139 mg/dL *HI* (10/22/23 11:29 AM) WBC [4.8-10.8 Thous/mm3] 9.4 Thous/mm3 (10/22/23 11:29 AM) Hct [37.0-47.0 %] 26.2 % *LOW* (10/22/23 11:29 AM) Hgb [12.0-16.0 g/dL] 8.1 g/dL *LOW* (10/22/23 11:29 AM) RBC [4.20-5.40 Million/mm3] 3.48 Million /mm3 *LOW* (10/22/23 11:29 AM) MCV [80.0-100.0 fl] 75.3 fl *LOW* (10/22/23 11: AM) MCH [26.0-34.0 pg] 23.3 pg *LOW* (10/22/23 AM) MCHC [31.0-36.5 g/dL] 30.9 g/dL *LOW* (10/22/23 11: AM) RDW [10.4-14.4 %] 19.1 % *HI* (10/22/23 AM) Platelets [130-440 Thous/mm3] 415 Thous/ mm3 (10/22/23 11: AM) MPV [9.4-12.4 fl] 9.7 fl (10/22/23: AM) Sodium [136-145 mEq/L] 141 mEq/L (10/22/23: AM) Potassium [3.5-5.1 mEq/L] 2.8 mEq/L *LOW* (10/22/23 AM) Chloride [98-107 mEq/L] 100 mEq/L (10/22/23: AM) CO2 [20-31 mEq/L] 32 mEq/L *HI* (10/22/23 11: AM) BUN [7-18 mg/dL] 33 mg/dL *HI* (10/22/23: AM) Creatinine [0.55-1.02 mg/dL] 1.71 mg/dL *HI* (10/22/23 11: AM) Calcium [8.3-10.6 mg/dL] 9.0 mg/dL (10/22/23 11: AM) 1Result Comment: Performed at:[facility], [facility] [place], [address] 2Result Comment: Performed at:[place] [address] [place], [address] Reference Ranges: 98 - 107 mEq/L 3Result Comment: Performed at:[facility], [facility] [place], [address] Reference Ranges: Males: 0.6 - 1.3 mg/dL Females: 0.6 - 1.2 mg/dL 4Result Comment: Performed at:[facility], [facility] [place], [address] Reference Ranges: Age 0 - 24 hours: 45 - 115 mg/dL Age 24 hours - 30 days: 55 - 115 mg/dL Age > 30 days: 70 - 100 mg/dL Critical Results Requiring Immediate Notification: Age <72 Hours: <40 or >350 mg/dL Age >72 Hours: <50 or >400 mg/dL 5Result Comment: Performed at:[place] [address] [place], [address] Reference Ranges: 38 - 51 % 6Result Comment: Performed at:[place] [address] [place], [address] Reference Ranges: 12 - 17 g/dL 7Result Comment: Performed at:[address], [address] Reference Ranges: 3.5 - 5.1 mEq/L 8Result Comment: Performed at:[place] [address] [facility] [address] Reference Ranges: 136 - 145 mEq/L 9Result Comment: Performed at:[place] [address] [place], [address] Reference Ranges: 7 - 18 mg/dL Vital Signs Most recent to oldest [Reference Range]: 1 2 3 Blood Pressure 122/74 (10/22/23 3:00 PM) 124/76 (10/22/23 2:30 PM) 113/70 (10/22/23 1:28 PM) Height (inches) (Clinical) 64 in (10/22/23 11:12 AM) 64 in (10/22/23 10:29 AM) Weight (kg) (Clinical) 61.4 kg (10/22/23 10:29 AM) BMI (Clinical) 0 kg/m2 (10/22/23 11:12 AM) 23.2 kg/m2 (10/22/23 10:29 AM) Scale Type Standing (10/22/23 10:29 AM) Social History Social History Type Response [...] VERIFY Event Display: Operative Report Authored Date: Patient: BARRY VAN Age: 68 years Sex: Female : 1955 Associated Diagnoses: None Author: Sofía Odell MD Images EGD and Colonoscopy Procedure Note Procedure Date: 10/22/2023 Procedure: 1. EGD with biopsies and ablation 2. Colonoscopy Indications: Esophagitis, history of gastric ulcer, high-risk screening due to history of polyps Referring Physician: Sofía Dixon Consent: The risks, benefits, indications, potential complications, and alternatives were explained to the patient and informed consent obtained. HISTORY: Family history of CRC or advanced adenomas: None Personal history of adenomas: Unknown Previous colonoscopy: (date/findings): Reportedly several years ago, at a different facility, records unavailable Interval history: Change in bowel habits, worsening constipation Preoperative Anesthesia Assessment: Based on the pre-procedure assessment, including review of the patient's medical history, medications, allergies, and review of systems, patient had been deemed not to be an appropriate candidate forconscious sedation; patient was therefore sedated with the medications listed below. Procedural Medications: Per Anesthesia Description of Procedure: The patient was placed in the left lateral decubitus position. The patient was monitored continuously with pulse oximetry, blood pressure monitoring, and direct observations. A bite-block was placed.An adult Olympus endoscope was then placed in the oropharynx and advanced. The esophagus was easilyintubated. The endoscope was advanced to the third portion of the duodenum and then slowly withdrawn. Excess air was removed and the endoscope withdrawn. Findings and interventions are described below. Patient was then repositioned for colonoscopy. A rectal examination was performed. The pediatric Olympus colonoscope was inserted into the rectum and advanced under direct vision to the cecum identified by ileocecal valve and appendiceal orifice. A careful inspection was made as the colonoscope was withdrawn, including a retroflexed view of the rectum; findings and interventions are described below. Quality of bowel preparation: Poor, lavaged to fair CECUM INTUBATED: Yes Withdrawal time: >8 minutes Photographs: Appropriate photodocumentation was obtained. Findings: The esophagus appeared endoscopically normal except for 1 cm salmon mucosal tongues extending between 29 and 30 cm, and circumferential salmon mucosa immediately proximal extending between 30-37 cm. No ulceration or nodularities. Biopsies were obtained from 30, 32, 34 and 36 cm. Top of the gastric folds were at 37 cm from the incisors. Diaphragmatic hiatus was at 39 cm. 2 cm hiatal hernia. There was moderate (LA grade C) esophagitis proximal to the Chirinos's mucosa. The gastric body and retroflexed view of the fundus revealed no abnormalities. The antrum was normal. Biopsies were obtained to rule out H pylori The pylorus was normal. The duodenum appeared endoscopically normal. There were 2 small angiectasias in the descending duodenal, 1 was actively bleeding, these were treated with APC Cecum: No abnormalities in the visualized mucosa Ascending colon: No abnormalities in the visualized mucosa Transverse colon: No abnormalities in the visualized mucosa Descending colon: No abnormalities in the visualized mucosa Sigmoid colon: Tortuous colon with diverticulosis. No abnormalities in the visualized mucosa Rectum: No mucosal abnormalities Complications: The patient tolerate the procedure well and no immediate complications were noted. Biopsy/Specimens: Yes Anatomic Pathology Results: PENDING Impression: Endoscopy evidence for Chirinos's esophagus ([place] C7M8), biopsies were obtained LA grade C esophagitis. No gastric ulcer or inflammation, biopsies were obtained to rule out H pylori. Duodenal angiectasias, treated with APC. Poor prep in the colon, lavaged to fair, no large mass or growth, sigmoid colon diverticulosis withtortuosity. Plan: Will send a script for Movantik for her chronic constipation. Continue rest of her bowel regimen. Ppi b.i.d. for 2 months then daily. Await histology. She will need a repeat colonoscopy in 3 years with 2 day bowel prep. Signature Electronically signed by:Sofía Odell MD 10/22/23 13:24 Patient Care team information Care Team Personnel Name: Diana Galvan Position: 2 Restricted Providers Member Role: Primary Care Physician Address: Address: [address] [place] [address]- Care Team Related Persons Name: SRIRAM TORRES
--- OUTSIDE RECORDS SUMMARY | 2023-12-18 08:04 | XMS_ITS ---
Author Name Unknown Organization [facility] Address [address] [facility] [place] [address] Care Team Providers Care Accountant Tax Name Role Phone Rajesh Serna Unavailable [phone] Corby Mena Unavailable [phone] REASON FOR VISIT Schedule appointment Encounters Encounter Location Date Provider Diagnosis [facility] [address] [place] [address] 11/23/2023 Corby Mena Plan Of Treatment No Information Progress Notes * MARGETAMIE CarmenaDOB:1955 (68 yo F)Acc No.[id number]:11/23/2023 Patient:?Tosha PERRY :1955???Age:68 Y???Sex:Female Address:[address], [place], [address] * true * Date:? Generated for Printi [email or web address]/[email or web address]/eTransmitting on:?12/18/2023 08:04 AM CDT
== END 2024-01-10 23:59 | disposition home or self-care (01) ==
LOC: ONCMED 12-17 06:15
PROVIDERS: PCP Physician Assistant; Visit Provider Physician Assistant
DX: M54.2 Cervicalgia; G89.29 Other chronic pain; Z98.1 Arthrodesis status
CPT/HCPCS: 72040; 99213

== ENCOUNTER 2023-12-29 09:50 | Inpatient (IN) | payer MEDICARE, OTHER, SELFPAY ==
[2023-12-29] VITALS (10 sets, daily range): BP systolic 89–145; BP diastolic 49–62; PULSE 52–67; RESP 16–20; TEMP 36.6–36.7; O2SAT 91–96; BMI 23.0; BMI 23.1
--- NOTE | 2023-12-29 09:54 | XRR_ITS ---
PROCEDURE INFORMATION: Exam: XR Right Shoulder Exam date and time: 12/29/2023 10:10 AM Age: 68 years old Clinical indication: Injury or trauma; Fall; Blunt trauma (contusions or hematomas); Shoulder; Right; Prior surgery; Surgery date: 6+ months; Surgery type: C-spine TECHNIQUE: Imaging protocol: Radiologic exam of the right shoulder. Views: 2 or more views. Total images: 3 COMPARISON: CR XR chest 1V portable [id number] 10/24/2023 1:29 PM FINDINGS: Bones/joints: Partially visualized spinal fusion hardware noted. No acute fracture nor subluxation. No osseous erosion nor periosteal reaction. Vasculature: Mild atherosclerotic disease burden is evident. Soft tissues: Normal. XR/XR shoulder RT min 2V* [id number] IMPRESSION: No acute osseous pathology.
--- NOTE | 2023-12-29 10:16 | USCV_ITS ---
Tosha Perry Age: 68 Gender: F : 1955 Exam Date: 12/29/2023 11:01 Ordering Phys: Coral Oconnor MD Technologist: Exam [place] [facility] [place]ication: rt arm pain and swelling PROCEDURES: Venous duplex imaging was performed in only the right upper extremity. The following venous structures were evaluated: internal jugular vein, subclavian vein, axillary vein, and brachial veins. In addition, the basilic vein, cephalic vein, radial vein, and ulnar vein. FINDINGS: No evidence of deep vein thrombosis or superficial thrombophlebitis in the right upper extremity. All other veins of the right upper extremity demonstrate normal flow dynamics with no evidence of deep vein thrombosis or superficial thrombophlebitis. CONCLUSIONS No right upper extremity DVT. Dr. Asia Duran DO (Electronically Signed) Final Date: 29 December 2023 13:34 S
--- NOTE | 2023-12-29 10:16 | CT_ITS ---
WS: [id number] CT ABDOMEN AND PELVIS NONCONTRAST HISTORY: abd pain TECHNIQUE: Imaging performed through the abdomen and pelvis. Coronal and sagittal reformats are submi tted. All CT scans at [facility] use at least one of these dose optimization techniques: auto mated exposure control; mA and/or kV adjustment per patient size (includes targeted exams where dose is matched to clinical indication); or iterative reconstruction. DLP: 458.39 mGy.cm COMPARISON: 10/24/2023 Lower thorax: Bibasilar mild atelectasis and mild bronchiectasis. Mild tree-in-bud airspace disease h as nearly completely resolved since 10/23/2013. Mild cardiomegaly. Large hiatal hernia. Liver: Artifact through the liver from patient's arms being placed across the abdomen. Gallbladder: Prior cholecystectomy. Common bile duct is mildly enlarged but probably on the basis of the cholecystectomy. Pancreas: Atrophy. Spleen: Normal. Adrenal glands: Normal. No mass. Right kidney: Normal size kidney with no mass or hydronephrosis. Left kidney: Normal size kidney with no mass or hydronephrosis. Aorta: Mild atherosclerosis abdominal aorta with no aneurysm. IVC filter is noted. No free fluid, intraperitoneal air or significant lymphadenopathy. GI tract: Prior appendectomy. Stomach is not distended. No small bowel obstruction. No colon obstruct ion or colitis. Abdominal wall: Negative. No hernia. Pelvis: Well-distended urinary bladder. No free fluid. Osseous structures: Osteopenia. Prior vertebroplasty at L4 and L5. CT/CT abdomen pelvis wo con [id number] IMPRESSION: 1. Prior cholecystectomy and hysterectomy. 2. Prior appendectomy. 3. No renal obstruction. 4. Moderate hiatal hernia. 5. Near complete resolution of the tree-in-bud airspace disease at the [facility] since 10/23/2013. 6. No GI tract obstruction.
--- NOTE | 2023-12-29 10:18 | XRR_ITS ---
PROCEDURE INFORMATION: Exam: XR Chest Exam date and time: 12/29/2023 10:23 AM Age: 68 years old Clinical indication: Injury or trauma; Fall; Blunt trauma (contusions or hematomas); Prior surgery; Surgery date: 6+ months; Surgery type: C-spine; Additional info: Cough TECHNIQUE: Imaging protocol: Radiologic exam of the chest. Views: 1 view. COMPARISON: CR XR chest 1V portable [id number] 10/24/2023 1:29 PM FINDINGS: Lungs: Chronic interstitial prominence. Hypoventilatory changes at the lung bases. Pleural spaces: Unremarkable. No pleural effusion. No pneumothorax. Heart/Mediastinum: Small hiatal hernia. Vasculature: Mild cardiomegaly and uncoiling of the thoracic aorta. Bones/joints: Anterior and posterior cervical and upper thoracic fusion. XR/XR chest 1V portable [id number] IMPRESSION: Bibasilar atelectasis.
--- NOTE | 2023-12-29 10:23 | ED_ITS ---
HPI - Extremity Problem 2 General: Chief complaint: Extremity Injury, Upper Stated complaint: rt. shoulder inj Time Seen by Provider: 12/29/23 09:54 Source: patient Mode of arrival: ambulatory Limitations: no limitations History of Present Illness: 68-year-old female with a history of chr onic neck pain states she been having right shoulder neck pain started last few days. States that pain sharp much worse with movement and palpation. States she has had some swelling in that limb as well as had a DVT is currently on blood thinners. States she is also had some pelvic pain. She denies any fever she has had a mild cough. Associated symptoms: Deny chest pain, fever(s) or rash Related Data Home Medications Medication Instructions Recorded Confirmed promethazine 12.5 mg tablet 12.5 mg PO BID PRN Nausea 05/04/23 12/29/23 ondansetron 8 mg disintegrating 8 mg PO Q8H PRN nausea/vomiting 05/13/23 12/29/23 tablet folic acid 1 mg tablet 1 mg PO DAILY PRN Edema 05/29/23 12/29/23 baclofen 10 mg tablet 10 mg PO Q6H PRN Muscle Spasm 06/14/23 12/29/23 fluticasone propionate 50 1 spray intranasal BID 09/27/23 12/29/23 mcg/actuation nasal spray,suspension furosemide 40 mg tablet 40 mg PO DAILY PRN Edema 09/27/23 12/29/23 gabapentin 300 mg capsule 300 mg PO TID 09/27/23 12/29/23 brinzolamide 1 %-brimonidine 0.2 % 1 drp ophthalmic (eye) BID 11/18/23 12/29/23 eye drops,suspension (Simbrinza) pantoprazole 40 mg tablet,delayed 40 mg PO BID 11/18/23 12/29/23 release potassium bicarbonate-citric acid 20 meq PO DAILY PRN WHILE TAKING 11/18/23 12/29/23 20 mEq effervescent tablet LASIX (Effer-K) alprazolam 0.5 mg tablet (Xanax) 0.5 mg PO BEDTIME 12/29/23 12/29/23 apixaban 2.5 mg tablet (Eliquis) 2.5 mg PO BID 12/29/23 12/29/23 naloxegol 12.5 mg tablet (Movantik) 12.5 mg PO QAM 12/29/23 12/29/23 oxycodone 10 mg tablet 10 mg PO Q8H PRN Pain 12/29/23 12/29/23 Previous Rx's Medication Instructions Recorded levothyroxine 112 mcg tablet 112 mcg PO QAM low thyroid #90 tabs 10/15/22 Bone growth stimulator #1 ea 01/22/23 Bone growth stimulator #1 ea 02/05/23 insulin syringes (disposable) 1 mL #25 ea 05/04/23 methotrexate sodium 25 mg/mL 20 mg (0.8 mL) SUBCUT .Q7days #10 07/07/23 injection solution mL ropinirole 5 mg tablet 5 mg PO TID #270 tabs 08/10/23 tens unit for cervical #1 ea 12/16/23 albuterol sulfate 90 mcg/actuation 1 puff inhalation Q6H PRN 12/20/23 aerosol inhaler Shortness Of Breath #6.7 grams Allergies Allergy/AdvReac Type Severity Reaction Status Date / Time ibuprofen Allergy Unknown ADR-Anxiety Verified 12/29/23 10:07 tizanidine Allergy Unknown Unknown Verified 12/29/23 10:07 acetaminophen Allergy ADR-Anxiety Verified 12/29/23 10:07 amitriptyline Allergy ADR-Agitate Verified 12/29/23 10:07 d diphenhydramine Allergy ADR-Agitate Verified 12/29/23 10:07 [From Benadryl] d morphine Allergy ADR-Halluci Verified 12/29/23 10:07 nating prochlorperazine Allergy Unknown Verified 12/29/23 10:07 [From Compazine] sucralfate [From Carafate] Allergy ALGY-Hives Verified 12/29/23 10:07 leflunomide AdvReac Intermediate GI adverse Verified 12/29/23 10:07 reactions sulfasalazine AdvReac Intermediate ADR-Nausea Verified 12/29/23 10:07 and acid reflux Review of Systems 2 Const: Denies: fever(s), chills, body aches or change in appetite ENMT: Denies: throat pain or dental pain Card: Denies: chest pain Resp: Denies: dyspnea GI: Reports: abdominal pain; Denies: nausea, vomiting or diarrhea Musc: Reports: neck pain; Denies: back pain Skin/Breast: Denies: rash Neuro: Denies: headache(s) PFSH ED 2 PFSH: Medical History (Updated 12/29/23 @ 17:53 by Claudy Castañeda MD) Acute GI bleeding History of deep vein thrombosis GERD (gastroesophageal reflux disease) Pre-operative clearance DVT (deep venous thrombosis) Pneumonia Acute anemia Hematoma complicating a procedure Cervical adenopathy GI bleed Osteoarthritis, shoulder Cervical spondylosis with myelopathy GERD with esophagitis Allergic rhinitis due to allergen RLS (restless legs syndrome) Substance or medication-induced sleep disorder, insomnia type Anxiety and depression High risk medication use Seropositive rheumatoid arthritis of multiple sites Extrapyramidal and movement disorder CKD (chronic kidney disease) stage 3, GFR 30-59 ml/min Lung nodule, solitary Prediabetes Hyperlipidemia Iron deficiency anemia Hypothyroidism Surgical History S/P insertion of IVC (inferior vena caval) filter Status post cervical spinal fusion History of cholecystectomy History of appendectomy History of delivery History of hysterectomy with bilateral oophorectomy History of ankle surgery left Previous back surgery Social History Smoking and tobacco/nicotine status: never used tobacco/nicotine Quit status (tobacco/nicotine): has quit using Year quit tobacco: 2009 Former quit date comment: Smoked for 9 months Alcohol intake: current Alcohol intake frequency: holidays/special occasions only Substance/Drug Use: never Course 2 Vital Signs: Vital signs: Vital Signs Temperature 97.8 F 12/29/23 10:07 Pulse Rate 62 12/29/23 17:00 Respiratory Rate 16 12/29/23 17:58 Blood Pressure 89/51 12/29/23 17:00 Pulse Oximetry 95 12/29/23 17:58 MDM - Extremity (Nontraumatic) Medical Decision Making Patient presents here with neck pain she is also had intractable vomiting here as well. Blood work CT abdomen here are normal she is continue with pain and vomiting spoke to the hospitalist will admit at this time. Medical Records I reviewed the patient's medical records. Lab Data I reviewed the patient's lab results. 12/29/23 18:40 12/29/23 12:00 Radiology Impressions Shoulder X-Ray 12/29/23 09:54 IMPRESSION: No acute osseous pathology. Abdomen/Pelvis CT 12/29/23 10:16 IMPRESSION: 1. Prior cholecystectomy and hysterectomy. 2. Prior appendectomy. 3. No renal obstruction. 4. Moderate hiatal hernia. 5. Near complete resolution of the tree-in-bud airspace disease at the lung bases since 10/23/2013. 6. No GI tract obstruction. Chest X-Ray 12/29/23 10:18 IMPRESSION: Bibasilar atelectasis. Laboratory Results WBC 4.42 10^3/uL (3.29-11.43) 12/29/23 12:00 RBC 4.76 10^6/uL (3.85-5.65) 12/29/23 12:00 Hgb 12.00 g/dL (11.27-16.99) 12/29/23 18:40 Hct 40.2 % (36-47) 12/29/23 18:40 MCV 84.9 fl (85-98) L 12/29/23 12:00 MCH 26.7 pg (27-33) L 12/29/23 12:00 MCHC 31.4 g/dL (30-55) 12/29/23 12:00 RDW 21.2 % (12.1-15.1) H 12/29/23 12:00 Plt Count 298 10^3/cmm (157-399) 12/29/23 12:00 MPV 10.3 fL (7.4-10.4) 12/29/23 12:00 Neut % (Auto) 42.8 % 12/29/23 12:00 Lymph % (Auto) 36.4 % 12/29/23 12:00 [place] % (Auto) 12.0 % 12/29/23 12:00 Eos % (Auto) 7.9 % 12/29/23 12:00 Baso % (Auto) 0.7 % 12/29/23 12:00 Neut # (Auto) 1.89 10^3/uL (1.8-7.7) 12/29/23 12:00 Lymph # (Auto) 1.6 10^3/uL (0.8-4.8) 12/29/23 12:00 [place] # (Auto) 0.5 10^3/uL (0.2-0.9) 12/29/23 12:00 Eos # (Auto) 0.4 10^3/uL (0.0-0.8) 12/29/23 12:00 Baso # (Auto) 0.0 10^3/uL (0.0-0.1) 12/29/23 12:00 Nucleated RBC % (auto) 0 % 12/29/23 12:00 Nucleated RBCs # 0.0 /100WBC 12/29/23 12:00 D-Dimer 2.48 ug/mLFEU (0-0.59) H 12/29/23 12:00 Sodium 139 mmol/L (136-145) 12/29/23 12:00 Potassium 3.8 mmol/L (3.5-5.1) 12/29/23 12:00 Chloride 97 mmol/L (98-107) L 12/29/23 12:00 Carbon Dioxide 30 mmol/L (22-29) H 12/29/23 12:00 Anion Gap 15.8 (5-19) 12/29/23 12:00 BUN 28 mg/dL (8-23) H 12/29/23 12:00 Creatinine 1.3 mg/dL (0.5-0.9) H 12/29/23 12:00 GFR Calculation 40.6 mL/min (90-130) L 12/29/23 12:00 Glucose 80 mg/dL (65-115) 12/29/23 12:00 Calculated Osmolality 292 mOsm/kg (285-295) 12/29/23 12:00 Calcium 9.9 mg/dL (8.5-10.5) 12/29/23 12:00 Iron 66 ug/dL (37-145) 12/29/23 12:00 TIBC 288 mcg/dl 12/29/23 12:00 % Saturation 22.9 % (20-50) 12/29/23 12:00 Unsat Iron Binding 222 ug/dL (112-347) 12/29/23 12:00 Total Bilirubin 0.4 mg/dL (0.15-1.2) 12/29/23 12:00 AST 27 U/L (0-32) 12/29/23 12:00 ALT 13 U/L (0-33) 12/29/23 12:00 Alkaline Phosphatase 167 U/L (35-105) H 12/29/23 12:00 Total Protein 8.9 g/dL (6.6-8.7) H 12/29/23 12:00 Albumin 4.1 g/dL (3.5-5.2) 12/29/23 12:00 Globulin 4.8 g/dL (1.3-4.6) H 12/29/23 12:00 Lipase 25 U/L (13-60) 12/29/23 12:00 Vitamin B12 320 pg/mL (232-1245) 12/29/23 12:00 Procalcitonin 0.09 ng/mL (0-0.5) 12/29/23 12:00 TSH 4.50 uIU/mL (0.27-4.20) H 12/29/23 12:00 Urine Color Yellow (Yellow) 12/29/23 13:36 Urine Appearance Clear (CLEAR) 12/29/23 13:36 Urine pH 7 (5-7) 12/29/23 13:36 Ur Specific [place] 1.005 (1.005-1.030) 12/29/23 13:36 Urine Protein Neg (Negative) 12/29/23 13:36 Urine Glucose (UA) Norm (Normal) 12/29/23 13:36 Urine Ketones Negative (Negative) 12/29/23 13:36 Urine Blood Neg (Negative) 12/29/23 13:36 Urine Nitrate Negative (Negative) 12/29/23 13:36 Urine Bilirubin Neg (Negative) 12/29/23 13:36 Urine Urobilinogen Norm mg/dL (Negative) 12/29/23 13:36 Ur Leukocyte Esterase Negative (Negative) 12/29/23 13:36 Amorphous Sediment Not Reportable 12/29/23 13:36 Gastric Occult Blood Positive (Negative) H 12/29/23 18:02 All radiology interpretation(s) finalized by discharge EKG Data EKG 1: I personally reviewed and interpreted this EKG as follows: EKG interpretation date: 12/29/23 EKG interpretation time: 15:07 Interpretation: nsr hr [address] elevation qrs 86 qtc 425 Discharge Plan Discharge Patient Disposition: Placed in Observation Admit Provider: Claudy Castañeda Clinical Impression: Neck pain, Abdominal pain Discharge Diet: Advance as tolerated Discharge Activity: Resume usual activity Coding Level of Care Code ED Traveling Passenger Agent for [facility] Micki
[2023-12-29] MEDS: ondansetron 2 mg/ML SDV 2 mL 4 MG IVP ×2 (11:39→12:28)
[2023-12-29] MEDS: HYDROmorphone 1 mg/mL INJ 1 mL 0.5 MG IVP ×3 (11:40→17:58)
[2023-12-29 13:09] LABS: Basophils % 0.7 %; Eosinophils # 0.4 10^3/uL (0.0-0.8); Eosinophils % 7.9 %; Hematocrit 40.4 % (36-47); Lymphocytes # 1.6 10^3/uL (0.8-4.8); Lymphocytes % 36.4 %; Mean Corpuscular HGB Conc 31.4 g/dL (30-55); Mean Corpuscular Hemoglobin 26.7 pg (27-33); Mean Corpuscular Volume 84.9 fl (85-98); Mean Platelet Volume 10.3 fL (7.4-10.4); Monocytes # 0.5 10^3/uL (0.2-0.9); Neutrophils # 1.89 10^3/uL (1.8-7.7); Neutrophils % 42.8 %; Nucleated Red Blood Cells % 0 %; Platelet Count 298 10^3/cmm (157-399); Red Blood Count 4.76 10^6/uL (3.85-5.65); Red Cell Distribution Width 21.2 % (12.1-15.1); White Blood Count 4.42 10^3/uL (3.29-11.43)
[2023-12-29 13:33] LABS: Alanine Aminotransferase 13 U/L (0-33); Albumin Level 4.1 g/dL (3.5-5.2); Alkaline Phosphatase 167 U/L (35-105); Anion Gap 15.8 (5-19); Aspartate Amino Transferase 27 U/L (0-32); Blood Urea Nitrogen 28 mg/dL (8-23); Calcium 9.9 mg/dL (8.5-10.5); Carbon Dioxide 30 mmol/L (22-29); Chloride 97 mmol/L (98-107); Globulin 4.8 g/dL (1.3-4.6); Glomerular Filtration Rate 40.6 mL/min (90-130); Glucose 80 mg/dL (65-115); Lipase 25 U/L (13-60); Osmolality Calculated 292 mOsm/kg (285-295); Potassium 3.8 mmol/L (3.5-5.1); Sodium 139 mmol/L (136-145); Total Bilirubin 0.4 mg/dL (0.15-1.2); Total Protein 8.9 g/dL (6.6-8.7)
[2023-12-29 13:47] LABS: Add Urine Microscopic? NO
[2023-12-29 13:56] LABS: Bilirubin Urine Neg (Negative); Blood Urine Neg (Negative); Glucose Urine UA Norm (Normal); Ketones Urine Negative (Negative); Leukocyte Esterase Urine Negative (Negative); Nitrate Urine Negative (Negative); Protein Urine Neg (Negative); Specific Gravity, Urine 1.005 (1.005-1.030); Urine Appearance Clear (CLEAR); Urine Color Yellow (Yellow); Urobilinogen Urine Norm (Negative); pH Urine 7 (5-7)
[2023-12-29 13:57] LABS: Charge for UA Resulting for Rev
--- NOTE | 2023-12-29 14:58 | ECG_ITS ---
[facility] Test Date: 2023-12-29 Pat Name: Tosha Perry Department: Room: Gender: Female Hod Carrier: : 1955 Requested By: Coral Oconnor Order Number: [id number] Mirela MD: Sherine Greene M.D. Measurements Intervals [place] Rate: 66 P: 53 KS: 178 QRS: 17 QRSD: 86 T: 31 QT: 412 QTc: 432 Interpretive Statements SINUS RHYTHM Compared to ECG 11/18/2023 08:46:07 No significant changes Electronically Signed On 12-30-2023 0:22:27 CDT by Sherine Greene M.D. [id number]
[2023-12-29] MEDS: LORazepam 2 mg/mL INJ 1 mL 1 MG IVP (15:43)
--- NOTE | 2023-12-29 17:04 | CTR_ITS ---
PROCEDURE INFORMATION: Exam: CT Cervical Spine Without Contrast Exam date and time: 12/29/2023 6:14 PM Age: 68 years old Clinical indication: Neck pain; Additional info: Post cervical fusion shoulder pain TECHNIQUE: Imaging protocol: Computed tomography of the cervical spine without contrast. Radiation optimization: All CT scans at this facility use at least one of these dose optimization techniques: automated exposure control; mA and/or kV adjustment per patient size (includes targeted exams where dose is matched to clinical indication); or iterative reconstruction. COMPARISON: CT cervical spin wo con* [id number] 09/27/2023 5:20 AM RADIATION DOSE METRICS: Total DLP (mGy-cm): 156 FINDINGS: Bones: Postsurgical change is seen related to posterior fusion C3 through T2 and with previous anterior fusion C3 through C7, as seen with prior exam. Some straightening of the cervical curvature noted and alignment is otherwise unremarkable. No acute fracture or vertebral compression deformity is seen. Disc space above the level of fusion at the C2-C3 level appears maintained. Disc space narrowing noted T1-T2 level. Spondylotic change of the facets. No severe spinal stenosis is seen. Multilevel neural foraminal narrowing is seen. Lungs: Visualized lung apices appear unremarkable. Vasculature: Carotid vascular calcification noted. Soft tissues: Paravertebral soft tissues show no significant abnormality. CT/CT cervical spin wo con* [id number] IMPRESSION: Extensive postoperative or postsurgical changes of the cervical spine, as noted above. No significant change or stable appearance with prior exam 09/27/2023.
--- NOTE | 2023-12-29 17:04 | CTR_ITS ---
PROCEDURE INFORMATION: Exam: CT Right Upper Extremity Without Contrast, Shoulder Exam date and time: 12/29/2023 6:17 PM Age: 68 years old Clinical indication: Pain; Shoulder; Right; Additional info: Pain, unable to move post op TECHNIQUE: Imaging protocol: Computed tomography of the right upper extremity without contrast. Exam focused on the shoulder. Radiation optimization: All CT scans at this facility use at least one of these dose optimization techniques: automated exposure control; mA and/or kV adjustment per patient size (includes targeted exams where dose is matched to clinical indication); or iterative reconstruction. COMPARISON: CR (CHEST, ) 12/29/2023 10:10 AM RADIATION DOSE METRICS: Total DLP (mGy-cm): 218 FINDINGS: Bones/joints: No fracture or dislocation is seen. Mild degenerative change about the right shoulder. No abnormal widening or separation of the right AC joint. No bone erosion or destruction or periosteal bone reaction. A subtle tiny calcification is seen adjacent to the superolateral humeral head, best seen on the coronal and sagittal reconstruction images. This could indicate minimal chronic calcific tendinitis. No significant fluid density or effusion. Soft tissues: No significant soft tissue abnormality. CT/CT shoulder RT wo con* [id number] IMPRESSION: 1. Mild degenerative change right shoulder and with subtle tiny calcification adjacent to the superolateral humeral head (on the coronal and sagittal reconstruction images) suggesting minimal chronic calcific tendinitis. 2. No fracture or dislocation or acute osseous abnormality.
--- NOTE | 2023-12-29 17:05 | PM.HP ---
Providers/Chief Complaint Primary Care Provider: Diana Garcia Chief Complaint: rt. shoulder inj History of Present Illness Tosha Perry is a 68 year old female with past medical history of upper GI bleed, lower limb DVT, neck pain post cervical disc fusion in May 2023, prediabetes who presented [facility] the [facility] at [facility] because of right shoulder pain. It seems patient has been having right shoulder pain getting worse since the operation for which she saw Dr. Iyer on 12/15 for which she was asked to continue with her physical therapy. Last physical therapy was over a week ago. Patient missed her therapy on Wednesday. For last 3 days her right shoulder pain has been getting worse. She is not able to lift her arm above 45 degrees without pain. She has been experiencing swelling in her fingers and she thinks this is from a blood clot in the arm. She gives history of blood clot in the lower limb after her neck surgery for which she was on Eliquis which was discontinued because of upper GI bleed. As per her she had an endoscopy done at [facility] 4 weeks ago after which her Eliquis was withheld and she was started on Protonix twice daily along with Carafate. She had repeat endoscopy around 2 weeks ago which showed healing of the ulcer and she was started back on Eliquis 2.5 mcg twice daily. In the ER multiple imagings were done which ruled out DVT of the arm, x-ray of the shoulder was negative. Patient complained of abdominal pain with episode of vomiting for which CT abdomen pelvis was done which showed no obstructive nephropathy or diverticulitis. On examination now patient is also complaining of coffee-ground emesis which has happened for the first time since starting her Eliquis. She is complaining of burning pain in her lower abdomen which is ongoing all the way from right to left. She denies any dysuria or diarrhea. Review of Systems General: Reports: 10 or more systems reviewed and unremarkable except in HPI and below Const: Denies: fever(s), chills, body aches, change in appetite, change in weight, malaise, night sweats, diaphoresis, change in sleep pattern, daytime sleepiness or snoring Eyes: Denies: change in vision, blurry vision, photophobia, eye discomfort or eye discharge ENMT: Denies: throat pain, enlarged tonsils, hoarseness, mouth pain, oral sores, dry mouth, tinnitus, nasal congestion or post nasal drip Card: Denies: chest pain, palpitations, irregular heart rhythm, edema, swelling of feet/ankles, lightheadedness, syncope, pre-syncope, dyspnea on exertion, orthopnea, leg pain with exertion or acrocyanosis Resp: Denies: dyspnea, productive cough, non-productive cough, wheezing, stridor, pain on inspiration, change in phlegm color, hemoptysis or chest congestion GI: Denies: abdominal pain, nausea, vomiting, hematemesis, coffee ground emesis, dysphagia, heartburn, diarrhea, constipation, bloating, GI cramping, change in bowel habits, pain on defecation, hematochezia or melena : Denies: flank pain, dysuria, urinary frequency, urinary urgency, urinary hesitancy, nocturia or hematuria Musc: Denies: neck pain, back pain, extremity pain, joint pain, joint swelling, joint redness, joint stiffness or limited range of motion Neuro: Denies: headache(s), numbness in extremities, weakness in extremities, sensory changes, lack of coordination, difficulty walking, frequent falls, dizziness, vertigo, confusion, Slurred speech present, difficulty communicating thoughts or seizure-like activity Psych: Denies: anxiety, depression, mood swings, panic attacks, hopelessness or irritability Endo: Denies: polyuria, polydipsia, tired all the time, cold intolerance, excessive sweating, flushing or heat intolerance Jl/Lymph: Denies: easy bruising or easy bleeding All/Imm: Denies: tongue swelling, facial swelling or acute wheezing Medications/Allergies Home Medications Medication Instructions Recorded Confirmed Last Taken Type levothyroxine 112 mcg tablet 112 mcg PO QAM low thyroid #90 tabs 10/15/22 12/29/23 12/29/23 Rx Bone growth stimulator #1 ea 01/22/23 12/29/23 Unknown Rx Bone growth stimulator #1 ea 02/05/23 12/29/23 Unknown Rx insulin syringes (disposable) 1 mL #25 ea 05/04/23 12/29/23 Unknown Rx promethazine 12.5 mg tablet 12.5 mg PO BID PRN Nausea 05/04/23 12/29/23 10/14/23 History ondansetron 8 mg disintegrating 8 mg PO Q8H PRN nausea/vomiting 05/13/23 12/29/23 10/06/23 History tablet folic acid 1 mg tablet 1 mg PO DAILY PRN Edema 05/29/23 12/29/23 11/17/23 History baclofen 10 mg tablet 10 mg PO Q6H PRN Muscle Spasm 06/14/23 12/29/23 10/15/23 History methotrexate sodium 25 mg/mL 20 mg (0.8 mL) SUBCUT .Q7days #10 07/07/23 12/29/23 10/11/23 Rx injection solution mL ropinirole 5 mg tablet 5 mg PO TID #270 tabs 08/10/23 12/29/23 12/29/23 Rx fluticasone propionate 50 1 spray intranasal BID 09/27/23 12/29/23 12/29/23 History mcg/actuation nasal spray,suspension furosemide 40 mg tablet 40 mg PO DAILY PRN Edema 09/27/23 12/29/23 10/14/23 History gabapentin 300 mg capsule 300 mg PO TID 09/27/23 12/29/23 12/29/23 History brinzolamide 1 %-brimonidine 0.2 % 1 drp ophthalmic (eye) BID 11/18/23 12/29/23 12/29/23 History eye drops,suspension (Simbrinza) pantoprazole 40 mg tablet,delayed 40 mg PO BID 11/18/23 12/29/23 12/29/23 History release potassium bicarbonate-citric acid 20 meq PO DAILY PRN WHILE TAKING 11/18/23 12/29/23 Unknown History 20 mEq effervescent tablet LASIX (Effer-K) tens unit for cervical #1 ea 12/16/23 12/29/23 Unknown Rx albuterol sulfate 90 mcg/actuation 1 puff inhalation Q6H PRN 12/20/23 12/29/23 Unknown Rx aerosol inhaler Shortness Of Breath #6.7 grams alprazolam 0.5 mg tablet (Xanax) 0.5 mg PO BEDTIME 12/29/23 12/29/23 12/28/23 History apixaban 2.5 mg tablet (Eliquis) 2.5 mg PO BID 12/29/23 12/29/23 12/29/23 History naloxegol 12.5 mg tablet (Movantik) 12.5 mg PO QAM 12/29/23 12/29/23 12/29/23 History oxycodone 10 mg tablet 10 mg PO Q8H PRN Pain 12/29/23 12/29/23 12/29/23 History Allergies Allergy/AdvReac Type Severity Reaction Status Date / Time ibuprofen Allergy Unknown ADR-Anxiety Verified 12/29/23 10:07 tizanidine Allergy Unknown Unknown Verified 12/29/23 10:07 acetaminophen Allergy ADR-Anxiety Verified 12/29/23 10:07 amitriptyline Allergy ADR-Agitate Verified 12/29/23 10:07 d diphenhydramine Allergy ADR-Agitate Verified 12/29/23 10:07 [From Benadryl] d morphine Allergy ADR-Halluci Verified 12/29/23 10:07 nating prochlorperazine Allergy Unknown Verified 12/29/23 10:07 [From Compazine] sucralfate [From Carafate] Allergy ALGY-Hives Verified 12/29/23 10:07 leflunomide AdvReac Intermediate GI adverse Verified 12/29/23 10:07 reactions sulfasalazine AdvReac Intermediate ADR-Nausea Verified 12/29/23 10:07 and acid reflux PFSH Acute PFSH: Medical History (Updated 12/29/23 @ 17:53 by Claudy Castañeda MD) Acute GI bleeding History of deep vein thrombosis GERD (gastroesophageal reflux disease) Pre-operative clearance DVT (deep venous thrombosis) Pneumonia Acute anemia Hematoma complicating a procedure Cervical adenopathy GI bleed Osteoarthritis, shoulder Cervical spondylosis with myelopathy GERD with esophagitis Allergic rhinitis due to allergen RLS (restless legs syndrome) Substance or medication-induced sleep disorder, insomnia type Anxiety and depression High risk medication use Seropositive rheumatoid arthritis of multiple sites Extrapyramidal and movement disorder CKD (chronic kidney disease) stage 3, GFR 30-59 ml/min Lung nodule, solitary Prediabetes Hyperlipidemia Iron deficiency anemia Hypothyroidism Surgical History S/P insertion of IVC (inferior vena caval) filter Status post cervical spinal fusion History of cholecystectomy History of appendectomy History of delivery History of hysterectomy with bilateral oophorectomy History of ankle surgery left Previous back surgery Social History Smoking and tobacco/nicotine status: never used tobacco/nicotine Quit status (tobacco/nicotine): has quit using Year quit tobacco: 2009 Former quit date comment: Smoked for 9 months Alcohol intake: current Alcohol intake frequency: holidays/special occasions only Substance/Drug Use: never Vitals/I&O/Wt Last Vital Signs Temp 97.8 F 12/29/23 10:07 Pulse 66 12/29/23 15:00 Resp 16 12/29/23 13:25 BP 129/62 12/29/23 15:00 Pulse Ox 94 12/29/23 15:00 Weight last 48 hrs Weight 60.781 kg Physical Exam Narrative: General: In distress because of shoulder pain, dehydrated, anxious, tearful HEENT: PERRLA, pupils bilaterally equal and reactive Chest: Normal vesicular breath sounds, no added sounds, equal good air entry bilaterally CVS: S1-S2 regular, no murmurs, no tachycardia, no gallops, no rubs Abdomen: Soft, nontender, no organomegaly, bowel sounds present Neuro: No focal deficits, no facial deformity, AO x3, power 5/5 in all limbs Data 12/29/23 12:00 12/29/23 12:00 A&P Assessment and plan (1) Right shoulder pain: Post cervical fusion. Patient has been on and off compliant with physical therapy. Follows up with Dr. Hung as an outpatient. Patient is currently requesting MRI of the shoulder for further evaluation. Appreciate x-ray of the shoulder done in the ER. Doppler negative for DVT. Will check CT shoulder for further evaluation. High concerns of frozen shoulder. Continue with home medication of 10 mg of oxycodone every 8 hours as needed. Add Dilaudid 0.4 mg every 4 hours as needed. Will try fentanyl patch 12.5 mg one-time. Physical therapy. (2) Status post cervical spinal fusion: Follows up with Dr. Hung as an outpatient. She states she is unable to move her arm. Will check CT of the cervical spine. Patient is requesting an MRI but for now we will hold off. (3) Nausea & vomiting: Recent history of upper GI bleed. Had endoscopy 6 weeks and 2 weeks ago at [facility]. 2 weeks ago she was told that her ulcer has healed up and she was started back on Eliquis. First episode of vomiting in the ER. Coffee ground in nature. Will check occult blood. Clear liquid diet Zofran and Phenergan as needed. Hold off on Eliquis. Protonix 40 mg twice daily. Add Carafate before meals and at bedtime. Did discuss with patient if occult blood is positive and hemoglobin is trending down patient might need to have a repeat endoscopy. Hemoglobin so far stable. Currently 12.7. On previous presentation to the ER it was 9.7. For now we will check hemoglobin and hematocrit every 6 hours. (4) GERD (gastroesophageal reflux disease): (5) Acute deep vein thrombosis (DVT) of right lower extremity: Recheck lower limb Dopplers for DVT. Patient also with history of peripheral vascular disease and a possible arterial thrombus. Will check lower limb arterial duplex. Check D-dimer. Eliquis plan as above. Plan Full code Clear liquid diet Protonix will be sufficient for PUD prophylaxis SCD for DVT prophylaxis Had a detailed discussion with the patient regarding treatment of plan. We discussed that there is a high concern for rebleeding from the ulcer for which we need to stop the anticoagulation and recheck the hemoglobin. We also discussed that the hemoglobin is trending down patient might need a repeat endoscopy. We also discussed while doing the same there is a concern and possibility of developing a PE. Patient verbalizes understanding and is okay with the above plan. She thinks she would want to be transferred to [facility] if needed for endoscopy. Also discussed about CT imaging of the shoulder. Discussed if CT imaging is negative most likely she will need to continue with physical therapy with pain control for improvement. Patient verbalized understanding and is agreeable. Attestations Medical Necessity Statement*: Admission for more than 2 midnights for management of nausea and vomiting with high concerns for upper GI bleed in a patient with recent upper GI bleed on Eliquis for lower limb DVT, right shoulder pain in a patient post cervical spinal fusion Diagnoses Right shoulder pain M25.511 Status post cervical spinal fusion Z98.1 Nausea & vomiting R11.2 GERD (gastroesophageal reflux disease) K21.9 Acute deep vein thrombosis (DVT) of right lower extremity I82.401
--- NOTE | 2023-12-29 17:07 | USCV_ITS ---
Tosha Perry Age: 68 Gender: F : 1955 Exam Date: 12/29/2023 17:28 Ordering Phys: Claudy Castañeda MD Technologist: LAILA [place]am Location[place] [facility] [place]: PROCEDURES: The venous duplex Doppler examination of both lower extremities was performed in the standard fashion. FINDINGS: Normal 2-D Doppler and augmentation and compressibility throughout the lower extremity venous structures. Additional imaging through the proximal calf veins also reveals no thrombus. Limited evaluation of the greater saphenous vein is patent with no thrombus. CONCLUSIONS No DVT bilateral lower extremities. Dr. Asia Duran DO (Electronically Signed) Final Date: 30 December 2023 14:15 S
[2023-12-29 17:19] LABS: D Dimer 2.48 ug/mLFEU (0-0.59)
[2023-12-29] MEDS: sodium chloride 0.9% 1,000 ML 75 ML IV (17:29)
[2023-12-29 17:40] LABS: Procalcitonin 0.09 ng/mL (0-0.5); Vitamin B12 320 pg/mL (232-1245)
[2023-12-29 17:50] LABS: Iron 66 ug/dL (37-145); Percent Saturation 22.9 % (20-50); Total Iron Binding Capacity 288 mcg/dl; Unsaturated Iron Binding 222 ug/dL (112-347)
--- NOTE | 2023-12-29 17:53 | CTR_ITS ---
PROCEDURE INFORMATION: Exam: CT Chest Without Contrast; Diagnostic Exam date and time: 12/29/2023 6:20 PM Age: 68 years old Clinical indication: Other: Hypoxia TECHNIQUE: Imaging protocol: Diagnostic computed tomography of the chest without contrast. Radiation optimization: All CT scans at this facility use at least one of these dose optimization techniques: automated exposure control; mA and/or kV adjustment per patient size (includes targeted exams where dose is matched to clinical indication); or iterative reconstruction. COMPARISON: CT angio chest PE protcl [id number] 05/13/2023 10:00 PM RADIATION DOSE METRICS: Total DLP (mGy-cm): 476 FINDINGS: Lungs: Lung windows demonstrate patchy infiltrate with nodular appearance mid and posterior mid and lower right lung and posterior mid and lower left lung. A component of basilar atelectasis also suggested. No significant consolidation. Pleural spaces: No pleural effusion or pneumothorax. Heart: No significant cardiomegaly. Extensive coronary artery calcification is seen. No pericardial effusion. Lymph nodes: No significant lymph node enlargement or lymphadenopathy. Vasculature: Arteriosclerosis of the thoracic aorta with mild tortuosity. Thoracic aorta and pulmonary arteries appear unremarkable otherwise for unenhanced exam. Diaphragm: [id number] hiatal hernia. Liver: Images through the visualized upper abdomen demonstrate previous cholecystectomy with prominence of the common hepatic/bile duct post cholecystectomy and partially visualized inferior vena cava filter. Bones/joints: Bone windows demonstrate spondylotic change within the visualized spine and partially visualized postsurgical fusion hardware lower cervical/upper thoracic spine posteriorly. Soft tissues: Unremarkable. CT/CT chest con [id number] IMPRESSION: 1. Lung windows demonstrate patchy infiltrate with nodular appearance mid and posterior mid and lower right lung plus posterior mid and lower left lung, along with basilar atelectasis. Findings suggest bilateral pneumonia. Given the nodular appearance, follow-up suggested. 2. Arteriosclerosis with mild tortuosity thoracic aorta and coronary artery calcification. 3. Phva-im-rhhkkyzt hiatal hernia.
--- NOTE | 2023-12-29 18:10 | PC.NURSE ---
pt requested pain medication, this RN informed patient that she had a fentanyl patch ordered and pt stated 'that shit dont work on me! dilaudid is the only thing that works'. this nurse educated the patient that she was having episodes where her oxygen would drop to 85% or 90%, i did not feel comfortable giving pt 1 mg of dilaudid d/t O2 dropping periodically. Dr. Tatum called in regards to the patient. provider was informed about pts O2 saturation dropping and nurse not feeling comfortable giving 1mg of dilaudid. provider edited order to 0.5mg and ordered nurse to give supplemental O2 to patient. patient given 0.5mg of dilaudid, respirations were 16 and even and 95% on 2L at the time of administration.
[2023-12-29 18:20] LABS: Gastricult Occult Blood Positive (Negative)
[2023-12-29 18:51] LABS: Hematocrit 40.2 % (36-47)
[2023-12-29] MEDS: pantoprazole 40 mg SDV IVP (19:14)
[2023-12-29] MEDS: promethazine 25 mg/mL SDV 1 mL 12.5 MG IM (19:19)
[2023-12-29] MEDS: ropinirole 1 mg Tablet 5 MG PO (21:26)
[2023-12-29] MEDS: fentaNYL 12 mcg Patch 1 PATCH TRANSDERMA (21:26)
[2023-12-29] MEDS: sucralfate 1 gm/10 mL Oral Liq UDC PO (21:26)
[2023-12-29] MEDS: gabapentin 300 mg Capsule PO (21:26)
--- OUTSIDE RECORDS SUMMARY | 2023-12-29 21:33 | XMS_ITS ---
Author Name Unknown Organization [facility] Address [address] [place] [address], [place] [address] Care Team Providers Care Crm Business Analyst Name Role Phone KareemMike servinas Unavailable [phone] Judah Shelton Unavailable [phone] REASON FOR VISIT Schedule appointment Encounters Encounter Location Date Provider Diagnosis [facility] [address] [place] [address] 12/09/2023 Judah Shelton Plan Of Treatment Next Appt Details Provider Name:Judah Shelton , 01/13/2024 02:30:00 PM, [address] [place] [address] [address], [place], [address], Progress Notes * Carmen PERRYaDOB:1955 (68 yo F)Acc No.[id number]:12/09/2023 Patient:?Tosha PERRY :1955???Age:68 Y???Sex:Female Address:[address], [place], [address] * true * Date:? Generated for Printi ng/Fabkg/eTransmitting on:?12/29/2023 09:33 PM CDT
--- OUTSIDE RECORDS SUMMARY | 2023-12-29 21:33 | XMS_ITS ---
Author Name Unknown Organization [facility] Address [address] [place] [address] Care Team Providers Care White Spooler Name Role Phone Rajesh Serna Unavailable [phone] Judah Shelton Unavailable [phone] REASON FOR VISIT PVD - OZH CT abd/pelvis 10/24/2023: The left common femoral artery 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 Also thrombus within the right common femoral vein (IVC filter in place) Encounters Encounter Location Date Provider Diagnosis [facility] [address] [place] [address] 12/02/2023 Judah Shelton Plan Of Treatment Next Appt Details Provider Name:Judah Shelton , 01/13/2024 02:30:00 PM, [address] [place] [address] [address], [place], [address], Progress Notes * Carmen PERRYaDOB:1955 (68 yo F)Acc No.[id number]:12/02/2023 Progress Notes Patient:?Tosha PERRY Provider:?Judah Shelton MD :1955???Age:68 Y???Sex:Female D ate:12/02/2023 Address:[address], [place] Subjective: * Chief Complaints: * ???1. PVD [...] Electronic signature of Trent Shelton MD on 12/29/2023 at 09:33 PM CDT Sign off status: Pending * Provider:?Judah Shelton MD Date:?12/01 Generated for Shen lindo/Sindy/Chandler on:?12/29/2023 09:33 PM CDT
--- OUTSIDE RECORDS SUMMARY | 2023-12-29 21:34 | XMS_ITS | Patient Health Record ---
Author Name Unknown Organization [facility] Address [address] [place] [address] Care Team Providers Care Theater Projectionist Name Role Phone Rajesh Serna Unavailable [phone] Andrea Bashir Unavailable [phone] Corby Mena Unavailable [phone] Judah Shelton Unavailable [phone] Reason For Referral No Information Problems Problem Type SNOMED Code ICD Code Onset Dates Problem Status W/U Status Risk Notes Problem 712921369 Peripheral vascular disease (I73.9) Active confirmed Encounters Encounter Location Date Provider Diagnosis [facility] [address] [place] [address] 11/05/2023 Andrea Bashir [facility] [address] [place] [address] 11/23/2023 Corby Mena [facility] [address] [place] [address] 12/09/2023 Judah Shelton Plan Of Treatment Next Appt Details Provider Name:Judah Shelton , 01/13/2024 02:30:00 PM, [address] [place] [address] [place], [address], Insurance Providers Payer Name Payer Address Payer Phone Subscriber Number Group Number Insured Name Patient Relationship to Insured Coverage Start Date Coverage End Date [place] Medicare [address] [place] [phone] [id number] Tosha Perry Self - patient is the insured [employer] [place] [address] [employer] [place] [id number] Tosha Perry Self - patient is the insured
--- OUTSIDE RECORDS SUMMARY | 2023-12-29 21:34 | XMS_ITS ---
Author Name Unknown Organization [facility] Address [address] [place] [address], [place] [address] Care Team Providers Care Nursing Home Director Name Role Phone Rajesh Serna Unavailable [phone] Corby Mena Unavailable [phone] REASON FOR VISIT Schedule appointment Encounters Encounter Location Date Provider Diagnosis [facility] [address] [place] [address] 11/23/2023 Corby Mena Plan Of Treatment Next Appt Details Provider Name:Judah Shelton , 01/13/2024 02:30:00 PM, [address] [place] [address] [address], [place], [address], Progress Notes * Carmen PERRYKaiB:1955 (68 yo F)Acc No.[id number]:11/23/2023 Patient:?Tosha PERRY :1955???Age:68 Y???Sex:Female Address:[address], [place], [address] * true * Date:? Generated for Printi ng/Faxing/eTransmitting on:?12/29/2023 09:33 PM CDT
--- NOTE | 2023-12-29 22:45 | PC.NURSE ---
Pt was administered a fentanyl 12mcg to left shoulder per orders from ER. Patient had initially refused the order stating that Fentanyl didn't resolve her pain. Charge explained that the fentanyl patch in conjunction with the hydromorphone might do well to relieve her pain and patient stated that she would try it.
[2023-12-30] VITALS (15 sets, daily range): BP systolic 92–169; BP diastolic 51–81; PULSE 52–76; RESP 12–18; TEMP 36.3–36.8; O2SAT 92–98; BMI 25.1
--- NOTE | 2023-12-30 00:05 | PC.NURSE ---
Fentanyl Patch: ER nurse called to say that the patient refused the fentanyl patch in the ER but they were unable to return it in the pyxis due to pharmacy having delivered the patch before they left for the day. Fentanyl patch was then placed in the [employer] [facility]. Shortly after arriving to the floor the patient spoke to financial underwriter and stated that she changed her mind about the patch. [facility] met [facility] was [facility] to the [facility].
[2023-12-30 01:23] LABS: Hematocrit 36.6 % (36-47)
[2023-12-30] MEDS: HYDROmorphone 1 mg/mL INJ 1 mL 0.5 MG IVP ×4 (01:23→15:37)
[2023-12-30] MEDS: ALPRAZolam 0.5 mg Tablet PO ×2 (02:59→20:52)
[2023-12-30] MEDS: pantoprazole 40 mg SDV IVP ×2 (05:34→17:07)
[2023-12-30] MEDS: levothyroxine 112 mcg Tablet PO (05:34)
[2023-12-30] MEDS: sucralfate 1 gm/10 mL Oral Liq UDC PO ×4 (06:21→20:52)
[2023-12-30 06:26] LABS: Basophils % 0.7 %; Eosinophils # 0.4 10^3/uL (0.0-0.8); Eosinophils % 7.9 %; Hematocrit 34.6 % (36-47); Lymphocytes # 1.6 10^3/uL (0.8-4.8); Lymphocytes % 35.4 %; Mean Corpuscular HGB Conc 31.5 g/dL (30-55); Mean Corpuscular Volume 85.9 fl (85-98); Mean Platelet Volume 9.6 fL (7.4-10.4); Monocytes # 0.6 10^3/uL (0.2-0.9); Monocytes % 13.5 %; Neutrophils # 1.94 10^3/uL (1.8-7.7); Neutrophils % 42.3 %; Nucleated Red Blood Cells % 0 %; Platelet Count 261 10^3/cmm (157-399); Red Blood Count 4.03 10^6/uL (3.85-5.65); White Blood Count 4.58 10^3/uL (3.29-11.43)
[2023-12-30 06:38] LABS: Estmated Average Glucose 114; Hemoglobin A1C 5.6 % (4.0-6.0)
[2023-12-30 06:43] LABS: Alanine Aminotransferase 10 U/L (0-33); Albumin Level 3.5 g/dL (3.5-5.2); Alkaline Phosphatase 138 U/L (35-105); Aspartate Amino Transferase 21 U/L (0-32); Blood Urea Nitrogen 23 mg/dL (8-23); Calcium 9.4 mg/dL (8.5-10.5); Carbon Dioxide 28 mmol/L (22-29); Chloride 102 mmol/L (98-107); Creatinine Clr Calc Pharmacy 34.7489; Globulin 3.9 g/dL (1.3-4.6); Glomerular Filtration Rate 37.3 mL/min (90-130); Glucose 108 mg/dL (65-115); Magnesium 1.9 mg/dL (1.7-2.3); Osmolality Calculated 296 mOsm/kg (285-295); Phosphorus 4.6 mg/dL (2.5-4.5); Sodium 141 mmol/L (136-145); Total Bilirubin 0.3 mg/dL (0.15-1.2); Total Protein 7.4 g/dL (6.6-8.7)
[2023-12-30 06:44] LABS: Cholesterol 228 mg/dL (0-200); HDL Cholesterol 43 mg/dL (60-100); LDL Cholesterol Calculated 160 mg/dL (50-129); LDL HDL Ratio 3.72 RATIO (0.00-3.22); Triglycerides 124 mg/dL (0-150)
[2023-12-30 07:07] LABS: Folate Level > 20.0 ng/mL (4.8-37.3)
[2023-12-30] MEDS: gabapentin 300 mg Capsule PO ×3 (08:30→20:52)
[2023-12-30] MEDS: ropinirole 1 mg Tablet 5 MG PO ×3 (08:31→20:51)
[2023-12-30] MEDS: sodium chloride 0.9% 1,000 ML 75 ML IV ×2 (10:40→23:56)
--- NOTE | 2023-12-30 11:38 | P.DS_ITS ---
Discharge Providers Date of Admission: 12/29/23 18:49 Date of Discharge: December 30, 2023 Attending Provider at Admission: Claudy Castañeda MD Attending Provider at Discharge: Claudy Castañeda MD Primary Care Provider: Diana Garcia Diagnoses at Discharge Discharge Diagnosis (1) Right shoulder pain: Status: Acute (2) Status post cervical spinal fusion: Status: Acute (3) Nausea & vomiting: Status: Acute (4) GERD (gastroesophageal reflux disease): Status: Acute (5) Acute deep vein thrombosis (DVT) of right lower extremity: Status: Acute Reason for Visit Reason for Visit: rt. shoulder inj Hospital Course Hospital Course Tosha Perry is a 68 year old female with past medical history of upper GI bleed, lower limb DVT, neck pain post cervical disc fusion in May 2023, prediabetes who [facility] at [facility] because of right shoulder p ain. It seems patient has been having right shoulder pain getting worse since the operation for which she saw Dr. Iyer on 12/15 for which she was asked to continue with her physical therapy. Last physical therapy was over a week ago. Patient missed her therapy on Wednesday. For last 3 days her right shoulder pain has been getting worse. She is not able to lift her arm above 45 degrees without pain. She has been experiencing swelling in her fingers and she thinks this is from a blood clot in the arm. She gives history of blood clot in the lower limb after her neck surgery for which she was on Eliquis which was discontinued because of upper GI bleed. As per her she had an endoscopy done at [facility] 4 weeks ago after which her Eliquis was withheld and she was started on Protonix twice daily along with Carafate. She had repeat endoscopy around 2 weeks ago which showed healing of the ulcer and she was started back on Eliquis 2.5 mcg twice daily. In the ER multiple imagings were done which ruled out DVT of the arm, x-ray of the shoulder was negative. Patient complained of abdominal pain with episode of vomiting for which CT abdomen pelvis was done which showed no obstructive nephropathy or diverticulitis. On examination now patient is also complaining of coffee-ground emesis which has happened for the first time since starting her Eliquis. She is complaining of burning pain in her lower abdomen which is ongoing all the way from right to left. She denies any dysuria or diarrhea. Patient was admitted to the hospital further evaluation and management. Multiple imaging were done which were consistent with calcific tendinitis of the right shoulder for which she is advised to follow-up with orthopedics as an outpatient and continue with extensive physical therapy. Patient might need a steroid injection in her shoulder if she does not improve with her physical therapy next 2 weeks. During hospitalization patient did not have any further episodes of nausea and vomiting. Her hemoglobin was checked every 6 hour and had trended down to 10.9 which is stable better than her baseline of 9.4. As patient did not have any further episode of nausea and vomiting and has been tolerating liquid diet well decision was made to continue with Protonix twice daily and Carafate 4 times a day while holding off on Eliquis. Upper limb duplex was negative for DVT. Lower limb duplex has been reported to be negative though formal report is currently not available. She has been advised to follow-up with a primary care provider within next 1 week while holding off on Eliquis, taking Carafate and Protonix as prescribed for repeat CBC. She is to follow-up with her outpatient senior principal process engineer and vascular surgeon as an outpatient at [facility]. She is to follow-up with orthopedic surgery within next 2 weeks if shoulder pain is not improving. She is to continue with extensive physical therapy as an outpatient. All discharge plan were discussed in detail with the patient and she was agreeable and verbalized understanding. Physical Exam Narrative: General: AOx3, not in acute distress today, not tearful, more relaxed HEENT: PERRLA, pupils bilaterally equal and reactive Chest: Normal vesicular breath sounds, no added sounds, equal good air entry bilaterally CVS: S1-S2 regular, no murmurs, no tachycardia, no gallops, no rubs Abdomen: Soft, nontender, no organomegaly, bowel sounds present Neuro: No focal deficits, no facial deformity, AO x3, power 5/5 in all limbs Discharge Data Studies Completed and Pending Completed Studies During Hospitalization Category Date Time Status CT abdomen pelvis wo con [id number] Stat Cat Scan 12/29/23 10:[address] cervical spin wo con* [id number] Stat Cat Scan 12/29/23 17:[address] chest wo con [id number] Stat Cat Scan 12/29/23 17:[address] shoulder RT wo con* [id number] Stat Cat Scan 12/29/23 17:04 Completed CXRP [XR chest 1V portable [id number]] Stat Exams 12/29/23 10:18 Completed XR shoulder RT min 2V* [id number] Stat Exams 12/29/23 09:54 Completed US venous duplex upper extremity RT [CV venous duplex Ultrasound 12/29/23 10:[place] [id number]] Stat Pending at discharge Category [place] [id number] Stat Ultrasound 12/30/23 17:07 [place] [id number] Stat Ultrasound 12/29/23 17:07 Taken Radiology Impressions Shoulder X-Ray 12/29/23 09:54 IMPRESSION: No acute osseous pathology. Abdomen/Pelvis CT 12/29/23 10:16 IMPRESSION: 1. Prior cholecystectomy and hysterectomy. 2. Prior appendectomy. 3. No renal obstruction. 4. Moderate hiatal hernia. 5. Near complete resolution of the tree-in-bud airspace disease at the lung bases since 10/23/2013. 6. No GI tract obstruction. Chest X-Ray 12/29/23 10:18 IMPRESSION: Bibasilar atelectasis. Cervical Spine CT 12/29/23 17:04 IMPRESSION: Extensive postoperative or postsurgical changes of the cervical spine, as noted above. No significant change or stable appearance with prior exam 09/27/2023. Shoulder CT 12/29/23 17:04 IMPRESSION: 1. Mild degenerative change right shoulder and with subtle tiny calcification adjacent to the superolateral humeral head (on the coronal and sagittal reconstruction images) suggesting minimal chronic calcific tendinitis. 2. No fracture or dislocation or acute osseous abnormality. Chest CT 12/29/23 17:53 IMPRESSION: 1. Lung windows demonstrate patchy infiltrate with nodular appearance mid and posterior mid and lower right lung plus posterior mid and lower left lung, along with basilar atelectasis. Findings suggest bilateral pneumonia. Given the nodular appearance, follow-up suggested. 2. Arteriosclerosis with mild tortuosity thoracic aorta and coronary artery calcification. 3. [id number] hiatal hernia. Laboratory Results WBC 4.58 10^3/uL (3.29-11.43) 12/30/23 06:16 RBC 4.03 10^6/uL (3.85-5.65) 12/30/23 06:16 Hgb 10.90 g/dL (11.27-16.99) L 12/30/23 06:16 Hct 34.6 % (36-47) L 12/30/23 06:16 MCV 85.9 fl (85-98) 12/30/23 06:16 MCH 27.0 pg (27-33) 12/30/23 06:16 MCHC 31.5 g/dL (30-55) 12/30/23 06:16 RDW 21.0 % (12.1-15.1) H 12/30/23 06:16 Plt Count 261 10^3/cmm (157-399) 12/30/23 06:16 MPV 9.6 fL (7.4-10.4) 12/30/23 06:16 Neut % (Auto) 42.3 % 12/30/23 06:16 Lymph % (Auto) 35.4 % 12/30/23 06:16 Walton % (Auto) 13.5 % 12/30/23 06:16 Eos % (Auto) 7.9 % 12/30/23 06:16 Baso % (Auto) 0.7 % 12/30/23 06:16 Neut # (Auto) 1.94 10^3/uL (1.8-7.7) 12/30/23 06:16 Lymph # (Auto) 1.6 10^3/uL (0.8-4.8) 12/30/23 06:16 Walton # (Auto) 0.6 10^3/uL (0.2-0.9) 12/30/23 06:16 Eos # (Auto) 0.4 10^3/uL (0.0-0.8) 12/30/23 06:16 Baso # (Auto) 0.0 10^3/uL (0.0-0.1) 12/30/23 06:16 Nucleated RBC % (auto) 0 % 12/30/23 06:16 Nucleated RBCs # 0.0 /100WBC 12/30/23 06:16 D-Dimer 2.48 ug/mLFEU (0-0.59) H 12/29/23 12:00 Sodium 141 mmol/L (136-145) 12/30/23 06:16 Potassium 4.0 mmol/L (3.5-5.1) 12/30/23 06:16 Chloride 102 mmol/L (98-107) 12/30/23 06:16 Carbon Dioxide 28 mmol/L (22-29) 12/30/23 06:16 Anion Gap 15.0 (5-19) 12/30/23 06:16 BUN 23 mg/dL (8-23) 12/30/23 06:16 Creatinine 1.4 mg/dL (0.5-0.9) H 12/30/23 06:16 GFR Calculation 37.3 mL/min (90-130) L 12/30/23 06:16 Glucose 108 mg/dL (65-115) 12/30/23 06:16 Estimat Average Glucose 114 12/30/23 06:16 Hemoglobin A1c 5.6 % (4.0-6.0) 12/30/23 06:16 Calculated Osmolality 296 mOsm/kg (285-295) H 12/30/23 06:16 Calcium 9.4 mg/dL (8.5-10.5) 12/30/23 06:16 Phosphorus 4.6 mg/dL (2.5-4.5) H 12/30/23 06:16 Magnesium 1.9 mg/dL (1.7-2.3) 12/30/23 06:16 Iron 66 ug/dL (37-145) 12/29/23 12:00 TIBC 288 mcg/dl 12/29/23 12:00 % Saturation 22.9 % (20-50) 12/29/23 12:00 Unsat Iron Binding 222 ug/dL (112-347) 12/29/23 12:00 Total Bilirubin 0.3 mg/dL (0.15-1.2) 12/30/23 06:16 AST 21 U/L (0-32) 12/30/23 06:16 ALT 10 U/L (0-33) 12/30/23 06:16 Alkaline Phosphatase 138 U/L (35-105) H 12/30/23 06:16 Total Protein 7.4 g/dL (6.6-8.7) 12/30/23 06:16 Albumin 3.5 g/dL (3.5-5.2) 12/30/23 06:16 Globulin 3.9 g/dL (1.3-4.6) 12/30/23 06:16 Triglycerides 124 mg/dL (0-150) 12/30/23 06:16 Cholesterol 228 mg/dL (0-200) H 12/30/23 06:16 LDL Cholesterol, Calc 160 mg/dL (50-129) H 12/30/23 06:16 HDL Cholesterol 43 mg/dL (60-100) L 12/30/23 06:16 LDL/HDL Ratio 3.72 RATIO (0.00-3.22) H 12/30/23 06:16 Cholesterol/HDL Ratio 5.30 mg/dL (0.0-4.40) H 12/30/23 06:16 Lipase 25 U/L (13-60) 12/29/23 12:00 Vitamin B12 320 pg/mL (232-1245) 12/29/23 12:00 Folate > 20.0 ng/mL (4.8-37.3) 12/30/23 06:16 Procalcitonin 0.09 ng/mL (0-0.5) 12/29/23 12:00 TSH 4.50 uIU/mL (0.27-4.20) H 12/29/23 12:00 Urine Color Yellow (Yellow) 12/29/23 13:36 Urine Appearance Clear (CLEAR) 12/29/23 13:36 Urine pH 7 (5-7) 12/29/23 13:36 Ur Specific [place] 1.005 (1.005-1.030) 12/29/23 13:36 Urine Protein Neg (Negative) 12/29/23 13:36 Urine Glucose (UA) Norm (Normal) 12/29/23 13:36 Urine Ketones Negative (Negative) 12/29/23 13:36 Urine Blood Neg (Negative) 12/29/23 13:36 Urine Nitrate Negative (Negative) 12/29/23 13:36 Urine Bilirubin Neg (Negative) 12/29/23 13:36 Urine Urobilinogen Norm mg/dL (Negative) 12/29/23 13:36 Ur Leukocyte Esterase Negative (Negative) 12/29/23 13:36 Amorphous Sediment Not Reportable 12/29/23 13:36 Gastric Occult Blood Positive (Negative) H 12/29/23 18:02 Vitals Last Vital Signs Temp 98.3 F 12/30/23 07:54 Pulse 58 L 12/30/23 10:53 Resp 17 12/30/23 10:34 BP 108/68 12/30/23 07:54 Pulse Ox 92 12/30/23 10:53 O2 Del Method Room Air 12/30/23 10:53 O2 Flow Rate 2 12/30/23 02:15 Discharge Plan Discharge Patient Disposition: Home Condition: Stable Prescriptions: New sucralfate 100 mg/mL Suspension 1 g PO AC&BEDTIME 28 Days Qty: 1000 0RF Continued (DME) tens unit for cervical See Rx Instructions .Route .MEDSUPPLY Qty: 1 0RF Rx Instructions: As directed promethazine 12.5 mg tablet 12.5 mg PO BID PRN (Reason: Nausea) (DME) insulin syringes (disposable) 1 mL syringe See Rx Instructions .ROUTE .MEDSUPPLY Qty: 25 1RF Rx Instructions: As directed levothyroxine 112 mcg tablet 112 mcg PO QAM Qty: 90 1RF (DME) Bone growth stimulator See Rx Instructions .Route .MEDSUPPLY Qty: 1 0RF Rx Instructions: As directed (DME) Bone growth stimulator See Rx Instructions .Route .MEDSUPPLY Qty: 1 0RF Rx Instructions: As directed methotrexate sodium 25 mg/mL solution 20 mg SUBCUT .Q7days Qty: 10 1RF Rx Instructions: ON MONDAYS ropinirole 5 mg tablet 5 mg PO TID Qty: 270 0RF albuterol sulfate 90 mcg/actuation HFA aerosol inhaler 1 puff inhalation Q6H PRN (Reason: Shortness Of Breath) Qty: 6.7 0RF baclofen 10 mg tablet 10 mg PO Q6H PRN (Reason: Muscle Spasm) Simbrinza 1-0.2 % drops,suspension 1 drp ophthalmic (eye) BID Effer-K 20 mEq tablet, effervescent 20 meq PO DAILY PRN (Reason: WHILE TAKING LASIX) oxycodone 10 mg tablet 10 mg PO Q8H PRN (Reason: Pain) Movantik 12.5 mg tablet 12.5 mg PO QAM Xanax 0.5 mg tablet 0.5 mg PO BEDTIME pantoprazole 40 mg tablet,delayed release (DR/EC) 40 mg PO BID Qty: 60 0RF ondansetron 8 mg tablet,disintegrating 8 mg PO Q8H PRN (Reason: nausea/vomiting) folic acid 1 mg tablet 1 mg PO DAILY PRN (Reason: Edema) gabapentin 300 mg capsule 300 mg PO TID furosemide 40 mg tablet 40 mg PO DAILY PRN (Reason: Edema) fluticasone propionate 50 mcg/actuation spray,suspension 1 spray INTRANASAL BID Discontinued Eliquis 2.5 mg tablet 2.5 mg PO BID Discharge Orders: Discharge Order (Routine); Ordered 12/30/23 Ordered By: Claudy Castañeda Referrals: Diana Garcia PA [Primary Care Provider] - 01/06/24 10:40 am (You have an appointment to see Dr. Garcia on January 05 at 1040 am. ) Ryan Hung DO [Physician] - 2 weeks Discharge Diet: Advance as tolerated Discharge Activity: Resume usual activity Patient Instructions: Abdominal Pain (ED), Neck Pain (ED), Opioid Safety Activity Restrictions/Additional Instructions: Follow-up with a primary care provider within next 1 week for repeat CBC. Do not take Eliquis for now. Take Protonix twice daily along with Carafate 4 times a day. He should follow-up with your outpatient senior principal process engineer and vascular surgeon at the earliest. Continue with physical therapy of shoulder as prescribed before. Follow-up with Dr. Hung as an outpatient for possible steroid injection in the shoulder. Discharge Attestations Time Spent in Discharge Care*: greater than 30 min Specific Discharge Activities: educating patient, discussing with pcp/other providers, discussing with block and case maker/social workers/dc planners, documenting/other paperwork and evaluating patient/reviewing data Status at Discharge: Cognitive status at discharge: cognitively intact , Behavioral status at discharge: cooperative , Functional status at discharge: independent ambulation , Overall status at discharge: patient is back to baseline Quality Metrics Clinical Quality Measures [ No reported AMI, CVA or VTE this stay] Coding Level of Care Code 19643 Total time (in minutes) for Discharge: 60 Diagnoses Right shoulder pain M25.511 Status post cervical spinal fusion Z98.1 Nausea & vomiting R11.2 GERD (gastroesophageal reflux disease) K21.9 Acute deep vein thrombosis (DVT) of right lower extremity I82.401
[2023-12-30] MEDS: promethazine 25 mg/mL SDV 1 mL 12.5 MG IM (13:46)
--- NOTE | 2023-12-30 17:07 | USCV_ITS ---
Tosha Perry Age: 68 Gender: F : 1955 Exam Date: 12/30/2023 03:51 Ordering Phys: Claudy Castañeda MD Technologist: LAILA Exam Location: [facility] [place] Indication: pvd Patient is poor historian. Admits to smoking up until 2004 when she switched to vaping. Denies DM. Risk Factors: pvd Patient is poor historian. Admits to smoking up until 2004 when she switched to vaping. Denies DM. Previous Vascular Surgery: None RIGHT LEFT BP: / BP: 115.0/ 67.00 0 Waveform Velocity (cm/s) Velocity (cm/s) Waveform Triphasic 152.0 Iliac Prox 138.0 Biphasic Triphasic 167.0 Iliac Mid 131.0 Triphasic Triphasic 160.0 Iliac Distal 110.0 Triphasic Triphasic 126.0 MIDDLE SCHOOL PROFESSIONAL 122.0 Triphasic Triphasic 119.0 SFA Prox 27.0 Monophasic Triphasic 136.0 SFA Mid 39.0 Biphasic Triphasic 120.0 SFA Dist 26.0 Monophasic Triphasic 84.0 POP 45.0 Biphasic Monophasic 23.0 DEBONE SUPERVISOR 49.0 Biphasic Biphasic 61.0 DPA 23.0 Monophasic 1.1 MADONNA 0.8 FINDINGS Minimal scattered plaques in the iliac, femoral and popliteal arteries on the right side. Low amplitude monophasic waveform in the right posterior tibial artery. Monophasic and monophasic low amplitude waveforms at and below the level of distal SFA on the left side Moderate heterogenous diffuse plaques in the left popliteal artery CONCLUSIONS 1. Normal resting MADONNA 1.1 on the right side. 2. Diminished resting MADONNA of 0.8 on the left side, suggesting mild to moderate peripheral artery disease. 3. Abnormal Doppler waveforms suggesting hemodynamically significant stenosis at the level of the distal SFA on the left side and posterior tibial artery on the right side . 4. Recommend CTA or peripheral angiogram, to better evaluate the peripheral arteries. No similar previous studies are available for comparison Dr Sherine Greene MD [facility] (Electronically Signed) Final Date: 31 December 2023 08:32 S
[2023-12-30] MEDS: oxyCODONE 5 mg IR Tab/Cap 10 MG PO (17:36)
[2023-12-30] MEDS: HYDROmorphone 1 mg/mL INJ 1 mL 0.2 MG IVP (21:09)
[2023-12-31] VITALS (8 sets, daily range): BP systolic 102–127; BP diastolic 58–64; PULSE 56–72; RESP 16–18; TEMP 36.4–37; O2SAT 90–96; BMI 25.3
[2023-12-31] MEDS: oxyCODONE 5 mg IR Tab/Cap 10 MG PO ×2 (01:41→10:29)
[2023-12-31] MEDS: pantoprazole 40 mg SDV IVP (04:58)
--- NOTE | 2023-12-31 05:09 | PC.NURSE ---
Nurse was in another patients room when DOPE HEATER came to get the nurse for assistance. DOPE HEATER told the nurse that a vape pen fell out of the patients bed. Nurse picked it up and it said marijuana on the side of the vape pen. Charge nurse Zoila was notified and vat house laborer was also notified. Nurse and charge nurse spoke with the patient and the patient denied ever using it while in the hospital and stated that is almost empty. Charge nurse is currently speaking with the vat house laborer where to put the vape pen at this moment in time.
[2023-12-31 05:27] LABS: Basophils % 0.4 %; Eosinophils # 0.4 10^3/uL (0.0-0.8); Eosinophils % 8.3 %; Hematocrit 36.1 % (36-47); Lymphocytes # 1.4 10^3/uL (0.8-4.8); Lymphocytes % 32.2 %; Mean Corpuscular HGB Conc 30.5 g/dL (30-55); Mean Corpuscular Volume 88.7 fl (85-98); Mean Platelet Volume 9.8 fL (7.4-10.4); Monocytes # 0.6 10^3/uL (0.2-0.9); Monocytes % 13.9 %; Neutrophils # 2.01 10^3/uL (1.8-7.7); Nucleated Red Blood Cells % 0 %; Platelet Count 220 10^3/cmm (157-399); Red Blood Count 4.07 10^6/uL (3.85-5.65); Red Cell Distribution Width 20.5 % (12.1-15.1); White Blood Count 4.47 10^3/uL (3.29-11.43)
[2023-12-31] MEDS: HYDROmorphone 1 mg/mL INJ 1 mL 0.2 MG IVP (05:27)
[2023-12-31 05:50] LABS: Alanine Aminotransferase 9 U/L (0-33); Albumin Level 3.4 g/dL (3.5-5.2); Alkaline Phosphatase 133 U/L (35-105); Anion Gap 12.6 (5-19); Aspartate Amino Transferase 20 U/L (0-32); Blood Urea Nitrogen 16 mg/dL (8-23); Carbon Dioxide 26 mmol/L (22-29); Chloride 103 mmol/L (98-107); Creatinine Clr Calc Pharmacy 46.3689; Globulin 3.8 g/dL (1.3-4.6); Glomerular Filtration Rate 49.2 mL/min (90-130); Glucose 93 mg/dL (65-115); Osmolality Calculated 287 mOsm/kg (285-295); Potassium 3.6 mmol/L (3.5-5.1); Sodium 138 mmol/L (136-145); Total Bilirubin 0.3 mg/dL (0.15-1.2); Total Protein 7.2 g/dL (6.6-8.7)
[2023-12-31] MEDS: sucralfate 1 gm/10 mL Oral Liq UDC PO ×2 (05:58→11:47)
[2023-12-31] MEDS: levothyroxine 112 mcg Tablet PO (05:58)
[2023-12-31] MEDS: gabapentin 300 mg Capsule PO (08:44)
[2023-12-31] MEDS: ropinirole 1 mg Tablet 5 MG PO (08:44)
--- NOTE | 2023-12-31 16:44 | PM.PN ---
Subjective Subjective: Patient was discharged yesterday but she refused and declined discharge. Today morning seen laying comfortably in bed. Denies any nausea, ting, headache. Does complain of mild difficulty in breathing but has remained more than 95% on room air and hemodynamically stable. Able to tolerate oral diet. Asking for more solid food. Vitals/I&O/Wt Last Vital Signs Temp 98.6 F 12/31/23 13:06 Pulse 58 L 12/31/23 13:06 Resp 16 12/31/23 13:06 BP 127/62 12/31/23 13:06 Pulse Ox 96 12/31/23 13:06 O2 Del Method Room Air 12/31/23 00:00 O2 Flow Rate 2 12/30/23 02:15 12/31/23 12/31/23 12/31/23 06:59 14:59 22:59 Intake Total 1000 / 1480 860 / 860 Balance 1000 / 1480 860 / 860 Weight last 48 hrs Weight 67.041 kg Weight 70.08 kg Weight 66.497 kg Weight 63.049 kg Weight 61.235 kg Physical Exam Narrative: General: AOx3, not in acute distress today, not tearful, more relaxed HEENT: PERRLA, pupils bilaterally equal and reactive Chest: Normal vesicular breath sounds, no added sounds, equal good air entry bilaterally CVS: S1-S2 regular, no murmurs, no tachycardia, no gallops, no rubs Abdomen: Soft, nontender, no organomegaly, bowel sounds present Neuro: No focal deficits, no facial deformity, AO x3, power 5/5 in all limbs Data 12/31/23 04:54 12/31/23 04:54 A&P Assessment and plan (1) Right shoulder pain: Post cervical fusion. Patient has been on and off compliant with physical therapy. Follows up with Dr. Hung as an outpatient. Patient is currently requesting MRI of the shoulder for further evaluation. Appreciate x-ray of the shoulder done in the ER. Doppler negative for DVT. Will check CT shoulder for further evaluation. High concerns of frozen shoulder. Continue with home medication of 10 mg of oxycodone every 8 hours as needed. Add Dilaudid 0.4 mg every 4 hours as needed. Will try fentanyl patch 12.5 mg one-time. Physical therapy. (2) Status post cervical spinal fusion: Follows up with Dr. Hung as an outpatient. She states she is unable to move her arm. Will check CT of the cervical spine. Patient is requesting an MRI but for now we will hold off. (3) Nausea & vomiting: Recent history of upper GI bleed. Had endoscopy 6 weeks and 2 weeks ago at [facility]. 2 weeks ago she was told that her ulcer has healed up and she was started back on Eliquis. First episode of vomiting in the ER. Coffee ground in nature. Will check occult blood. Clear liquid diet Zofran and Phenergan as needed. Hold off on Eliquis. Protonix 40 mg twice daily. Add Carafate before meals and at bedtime. Did discuss with patient if occult blood is positive and hemoglobin is trending down patient might need to have a repeat endoscopy. Hemoglobin so far stable. Currently 12.7. On previous presentation to the ER it was 9.7. For now we will check hemoglobin and hematocrit every 6 hours. (4) GERD (gastroesophageal reflux disease): (5) Acute deep vein thrombosis (DVT) of right lower extremity: Recheck lower limb Dopplers for DVT. Patient also with history of peripheral vascular disease and a possible arterial thrombus. Will check lower limb arterial duplex. Check D-dimer. Eliquis plan as above. Plan Full code Clear liquid diet Protonix will be sufficient for PUD prophylaxis SCD for DVT prophylaxis We discussed in detail that her hemoglobin has remained stable and currently at 11. She has not had any further episodes of vomiting so there is a very low concern for ongoing GI bleed. We also discussed during examination she has had multiple duplexes which is ruled out DVT of bilateral lower limb and right upper limb. Discussed for now most likely she does not need to be on Eliquis. Discussed that she needs to be on Protonix twice daily along with Carafate ACHS for next 4 weeks and follow-up with outpatient radial drill press operator for plastic. Patient states she has a biliary duct obstruction for which she needs to have a stenting. Again we discussed that as an outpatient procedure for now she does not have any acute tenderness because of the reduction obstruction and her liver function for now stable for which she will need to follow-up as an outpatient with a radial drill press operator for plastic. Also discussed arterial duplex showed diminished MADONNA on the left side suggesting of mild to moderate peripheral artery disease but for that she is to follow-up with vascular surgeon for injections. Appointment in February for further treatment. Discussed she has chronic calcific tendinitis of the shoulder for which she will need to follow-up as an outpatient with extensive physical therapy and with an orthopedist and for possible steroid shots. Discussed long-term she will need to be on oral pain medications and IV pain medications will not help her. She states her PCP Diana Garcia is not able to provide her with her long-term Xanax which she takes 3 times a day along with pain pills. For last 1 month they will being refilled by her orthopedist and with unfortunately she cannot get medications from them anymore which is causing her to move stress. We discussed I cannot give her more than 10-day supply of the pain medications and Xanax 1 time as needed but for that going forward she will have to have further medications from her PCP if they deem it necessary. She requested transfer to SNF but we again discussed for now I do not have any medical reason for her to stay in the hospital but she can again discuss the same with her PCP for possible placement. Patient verbalized understanding and is agreeable for discharge. Plan: Patient is good for discharge. Will add Advair for evaluation treatment for possible COPD. Will request PFT with her outpatient physician. Xanax 0.5 nightly as needed. Continue with current pain medications add tramadol 50 mg every 6 hours as needed for 14 tablets. Attestations Medical Necessity Statement*: Patient has been discharged Diagnoses Right shoulder pain M25.511 Status post cervical spinal fusion Z98.1 Nausea & vomiting R11.2 GERD (gastroesophageal reflux disease) K21.9 Acute deep vein thrombosis (DVT) of right lower extremity I82.401
== END 2023-12-31 13:00 | disposition home or self-care (01) | DRG 558 ==
LOC: ER 16:14 → MEDSURG 21:04
PROVIDERS: Admitting Provider Student in an Organized Health Care Education/Training Program; Emergency Provider Emergency Medicine; PCP Physician Assistant; Visit Provider Student in an Organized Health Care Education/Training Program
DX: M75.31 Calcific tendinitis of right shoulder (principal); K21.9 Gastro-esophageal reflux disease without esophagitis; G25.81 Restless legs syndrome; E78.5 Hyperlipidemia, unspecified; E03.9 Hypothyroidism, unspecified; N18.30 Chronic kidney disease, stage 3 unspecified; F41.9 Anxiety disorder, unspecified; I73.9 Peripheral vascular disease, unspecified; F32.A Depression, unspecified; Z98.1 Arthrodesis status; Z79.01 Long term (current) use of anticoagulants; Z79.899 Other long term (current) drug therapy; Z79.890 Hormone replacement therapy; Z79.4 Long term (current) use of insulin; Z88.5 Allergy status to narcotic agent; Z88.8 Allergy status to other drugs, medicaments and biological substances; Z87.01 Personal history of pneumonia (recurrent); Z87.891 Personal history of nicotine dependence; Z86.718 Personal history of other venous thrombosis and embolism
CPT/HCPCS: 36415; 71045; 71250; 72125; 73030; 73200; 74176; 80053; 80061; 81003; 82271; 82607; 82746; 83036; 83540; 83550; 83690; 83735; 84100; 84145; 84443; 85014; 85018; 85025; 85378; 93005; 93925; 93970; 93971; 94664; 96372; 96374; 96375; 96376; 99285; J1170; J2060; J2405; J2470; J2550; J7030

== ENCOUNTER 2024-02-03 07:55 | Outpatient (CLI) | payer MEDICARE, OTHER, SELFPAY ==
--- NOTE | 2024-02-03 08:00 | MR_ITS ---
WS: [id number] MRI CERVICAL SPINE NONCONTRAST HISTORY: CERVICAL RADICULOPATHY COMPARISON: CT cervical spine 12/29/2023, MRI 05/13/2023 Technique: Multiplanar, multisequence noncontrast imaging of the cervical spine. Extensive postsurgical changes are noted throughout the cervical spine. Posterior fusion from C3-T2. Prior anterior fusion from C3-C7. Interbody spacers at C3-4, C4-5, C5-6 and C6-7. Signal within the cervical cord is normal. Visualized posterior fossa is unremarkable. Craniocervical junction, C1 and C2 relationship, odontoid process and soft tissues are normal. Extensive artifact throughout the cervical spine obscuring the central canal and foramina. C2-C3: No stenosis. C3-C4: Mild disc bulging. No stenosis. C4-C5: Poorly visualized foramina. No central stenosis. C5-C6: Poorly visualized foramina. No central stenosis. C6-C7: Poorly visualized foramina. No central stenosis. C7-T1: Normal. T2-3: Small central disc protrusion. Paraspinal soft tissue are normal. MR/MR cervical spin wo con* [id number] IMPRESSION: 1. Status post extensive anterior and posterior cervical fusion with interbody disc spacers. No interval change since the CT of 12/29/2023 is apparent by MRI. 2. Foramina at multiple levels are being obscured by artifact. 3. No signal abnormality within the cord. 4. No central stenosis.
== END 2024-02-03 07:56 | disposition home or self-care (01) ==
LOC: RAD 07:56
PROVIDERS: PCP Physician Assistant; Visit Provider Physician Assistant
DX: M54.12 Radiculopathy, cervical region (principal); M43.22 Fusion of spine, cervical region
CPT/HCPCS: 72141

== ENCOUNTER → 2024-02-09 14:30 | Outpatient (BNVA) | payer MEDICARE, OTHER, SELFPAY | PROVIDERS: PCP Physician Assistant; Referring Provider Physician Assistant; Visit Provider Internal Medicine Rheumatology | DX: Z79.899 Other long term (current) drug therapy (principal); M05.79 Rheumatoid arthritis with rheumatoid factor of multiple sites without organ or systems involvement; Z71.85 Encounter for immunization safety counseling | CPT/HCPCS: 99214 ==

== ENCOUNTER 2024-03-23 22:38 | Emergency (ER) | payer MEDICARE, OTHER, SELFPAY ==
[2024-03-23 22:46] VITALS: BP 136/60; PULSE 66; RESP 14; TEMP 36.6; O2SAT 97; BMI 28.8
--- NOTE | 2024-03-23 22:50 | XRR_ITS ---
PROCEDURE INFORMATION: Exam: XR Chest Exam date and time: 03/23/2024 11:05 PM Age: 69 years old Clinical indication: Shortness of breath; Prior surgery; Surgery date: 6+ months; Surgery type: Neck TECHNIQUE: Imaging protocol: Radiologic exam of the chest. Views: 1 view. COMPARISON: CT chest con [id number] 12/29/2023 6:20 PM FINDINGS: Tubes, catheters and devices: Posterior instrumentation hardware of the lower cervical spine. Lungs: Bibasilar atelectasis. No focal consolidation. Pleural spaces: Unremarkable. No pleural effusion. No pneumothorax. Heart/Mediastinum: There is cardiomegaly. Vasculature: Aortic arch calcifications. Unfolding of the thoracic aorta. Bones/joints: Chronic fracture deformity of the right 8th rib. XR/XR chest 1V portable [id number] IMPRESSION: No acute cardiopulmonary process.
--- NOTE | 2024-03-23 22:50 | XRR_ITS ---
PROCEDURE INFORMATION: Exam: XR Cervical Spine Exam date and time: 03/23/2024 11:07 PM Age: 69 years old Clinical indication: Cervicalgia and neck pain and radicular pain (radiculopathy); Cervical region; Prior surgery; Surgery date: 6+ months; Additional info: Pain no trauma history of surgeries TECHNIQUE: Imaging protocol: Radiologic exam of the cervical spine. Views: 2 or 3 views. COMPARISON: MR cervical spin wo con* [id number] 02/03/2024 8:11 AM FINDINGS: Tubes, catheters and devices: Posterior cervical instrumentation hardware at C2-T2 levels and ACDF hardware at C3-C4 and C4-C5 levels. Bones/joints: There is a 1 mm lucency surrounding bilateral T2 screws. No hardware fracture. Disc cage seen at C5-C6 level. Soft tissues: Unremarkable. XR/XR cervical spine 3V* [id number] IMPRESSION: Post cervical spine instrumentation with no hardware complications.
--- NOTE | 2024-03-23 22:53 | ED_ITS ---
HPI - Neck Pain/Injury 2 General: Chief Complaint: Neck Pain/Injury Stated Complaint: Resp Distress Time Seen by Provider: 03/23/24 22:42 History of Present Illness: EMS brought patient in with initial complaint shortness of breath however she was satting 99% on room air and her complaints of them was neck pain it feels like a shooting electrical shocks down into her fingers. She has chronic neck pain has had multiple neck surgeries. She takes oxycodone and prednisone for this. She has not missed any doses. Denies any injury. Also complains of bilateral leg pain. Patient appears in no acute distress and is nontoxic in appearance upon arrival Related Data Home Medications Medication Instructions Recorded Confirmed promethazine 12.5 mg tablet 12.5 mg PO BID PRN Nausea 05/04/23 02/09/24 baclofen 10 mg tablet 10 mg PO Q6H PRN Muscle Spasm 06/14/23 02/09/24 fluticasone propionate 50 1 spray intranasal BID 09/27/23 02/09/24 mcg/actuation nasal spray,suspension furosemide 40 mg tablet 40 mg PO DAILY PRN Edema 09/27/23 02/09/24 gabapentin 300 mg capsule 300 mg PO TID 09/27/23 02/09/24 brinzolamide 1 %-brimonidine 0.2 % 1 drp ophthalmic (eye) BID 11/18/23 02/09/24 eye drops,suspension (Simbrinza) potassium bicarbonate-citric acid 20 meq PO DAILY PRN WHILE TAKING 11/18/23 02/09/24 20 mEq effervescent tablet LASIX (Effer-K) naloxegol 12.5 mg tablet (Movantik) 12.5 mg PO QAM 12/29/23 02/09/24 oxycodone 10 mg tablet 10 mg PO Q8H PRN Pain 12/29/23 02/09/24 Previous Rx's Medication Instructions Recorded levothyroxine 112 mcg tablet 112 mcg PO QAM low thyroid #90 tabs 10/15/22 Bone growth stimulator #1 ea 01/22/23 Bone growth stimulator #1 ea 02/05/23 ropinirole 5 mg tablet 5 mg PO TID #270 tabs 08/10/23 tens unit for cervical #1 ea 12/16/23 albuterol sulfate 90 mcg/actuation 1 puff inhalation Q6H PRN 12/20/23 aerosol inhaler Shortness Of Breath #6.7 grams pantoprazole 40 mg tablet,delayed 40 mg PO BID #60 tabs 12/30/23 release fluticasone furoate 100 1 inh inhalation DAILY #60 ea 12/31/23 mcg-vilanterol 25 mcg/dose inhalation powder (Breo Ellipta) folic acid 1 mg tablet 1 mg PO DAILY PRN Edema #90 tabs 02/09/24 insulin syringes (disposable) 1 mL #25 ea 02/09/24 prednisone 20 mg tablet See Rx Instructions PO .COMPLEX 02/09/24 PRN joint pain flare #30 tabs methotrexate sodium 25 mg/mL 20 mg (0.8 mL) SUBCUT .Q7days #10 02/28/24 injection solution mL Allergies Allergy/AdvReac Type Severity Reaction Status Date / Time ibuprofen Allergy Unknown ADR-Anxiety Verified 03/23/24 22:50 tizanidine Allergy Unknown Unknown Verified 03/23/24 22:50 acetaminophen Allergy ADR-Anxiety Verified 03/23/24 22:50 amitriptyline Allergy ADR-Agitate Verified 03/23/24 22:50 d diphenhydramine Allergy ADR-Agitate Verified 03/23/24 22:50 [From Benadryl] d morphine Allergy ADR-Halluci Verified 03/23/24 22:50 nating prochlorperazine Allergy Unknown Verified 03/23/24 22:50 [From Compazine] leflunomide AdvReac Intermediate GI adverse Verified 03/23/24 22:50 reactions sulfasalazine AdvReac Intermediate ADR-Nausea Verified 03/23/24 22:50 and acid reflux Review of Systems 2 General: Reports: 10 or more systems reviewed and unremarkable except in HPI and below PFSH ED 2 PFSH: Medical History Acute GI bleeding History of deep vein thrombosis GERD (gastroesophageal reflux disease) Pre-operative clearance DVT (deep venous thrombosis) Pneumonia Acute anemia Hematoma complicating a procedure Cervical adenopathy GI bleed Osteoarthritis, shoulder Cervical spondylosis with myelopathy GERD with esophagitis Allergic rhinitis due to allergen RLS (restless legs syndrome) Substance or medication-induced sleep disorder, insomnia type Anxiety and depression High risk medication use Seropositive rheumatoid arthritis of multiple sites Extrapyramidal and movement disorder CKD (chronic kidney disease) stage 3, GFR 30-59 ml/min Lung nodule, solitary Prediabetes Hyperlipidemia Iron deficiency anemia Hypothyroidism Surgical History S/P insertion of IVC (inferior vena caval) filter Status post cervical spinal fusion History of cholecystectomy History of appendectomy History of delivery History of hysterectomy with bilateral oophorectomy History of ankle surgery left Previous back surgery Social History Smoking and tobacco/nicotine status: never used tobacco/nicotine Quit status (tobacco/nicotine): has quit using Year quit tobacco: 2009 Former quit date comment: Smoked for 9 months Alcohol intake: current Alcohol intake frequency: holidays/special occasions only Substance/Drug Use: never Physical Exam 2 Const: COMMON NORMALS: no acute distress, patient oriented x3, no limitations, healthy appearing, alert and well nourished HENMT: COMMON NORMALS: normocephalic, atraumatic, hearing grossly normal bilaterally, external ears normal, Normal external nose present and moist oral mucous membranes HEAD & SCALP: normocephalic and atraumatic NOSE: Normal external nose present EXTERNAL EAR: Yes external ears normal Neck/C-Spine: COMMON NORMALS: full ROM, no lymphadenopathy, supple, no meningeal signs, no JVD and Thyroid normal THYROID: Thyroid normal Chest: COMMONS NORMALS: normal inspection of the chest and normal palpation of entire chest wall Resp: COMMON NORMALS: normal respiratory effort, No retractions, No use of accessory muscles and clear to auscultation bilaterally AUSCULTATION: clear to auscultation bilaterally Cardio: COMMON NORMALS: no JVD, regular rate, regular rhythm, S1 normal heart sound present, S2 normal heart sound present, No gallops present (Cardio), No clicks present (Cardio) and No murmurs present (Cardio) RATE: regular rate RHYTHM: regular rhythm HEART SOUNDS: S1 normal heart sound present and S2 normal heart sound present GI: COMMON NORMALS: Normal to inspection, nondistended, normoactive bowel sounds present, Soft to palpation, non-tender and no masses PALPATION: Yes Soft to palpation Neuro: COMMON NORMALS: patient oriented x3 SENSORIUM/ORIENTATION: Yes alert MENINGEAL SIGNS: Yes no meningeal signs Course 2 Vital Signs: Vital signs: Vital Signs Temperature 97.8 F 12/12/24 22:46 Pulse Rate 54 L 03/23/24 23:33 Respiratory Rate 16 03/23/24 23:33 Blood Pressure 100/52 03/23/24 23:33 Pulse Oximetry 94 03/23/24 23:33 Oxygen Delivery Me thod Room Air 03/23/24 23:33 MDM - Neck Pain/Injury Medical Decision Making Lab work was obtained which was similar to past lab work except potassium low at 3.1, C-spine x-ray and chest x-ray were negative, patient was given 40 mEq of oral potassium here patient is already on potassium at home. Patient will be discharged follow-up with PCP within next 7 days for further eval and treatment Medical Records I reviewed the patient's medical records. Lab Data I reviewed the patient's lab results. 03/23/24 23:25 03/23/24 23:25 Radiology Impressions Cervical Spine X-Ray 03/23/24 22:50 IMPRESSION: Post cervical spine instrumentation with no hardware complications. Chest X-Ray 03/23/24 22:50 IMPRESSION: No acute cardiopulmonary process. Laboratory Results WBC 5.27 10^3/uL (3.29-11.43) 03/23/24 23:25 RBC 3.82 10^6/uL (3.85-5.65) L 03/23/24 23:25 Hgb 10.90 g/dL (11.27-16.99) L 03/23/24 23:25 Hct 34.5 % (36-47) L 03/23/24 23:25 MCV 90.3 fl (85-98) 03/23/24 23:25 MCH 28.5 pg (27-33) 03/23/24 23:25 MCHC 31.6 g/dL (30-55) 03/23/24 23:25 RDW 14.8 % (12.1-15.1) 03/23/24 23:25 Plt Count 290 10^3/cmm (157-399) 03/23/24 23:25 MPV 9.5 fL (7.4-10.4) 03/23/24 23:25 Neut % (Auto) 53.4 % 03/23/24 23:25 Lymph % (Auto) 26.4 % 03/23/24 23:25 [place] % (Auto) 12.9 % 03/23/24 23:25 Eos % (Auto) 6.3 % 03/23/24 23:25 Baso % (Auto) 0.6 % 03/23/24 23:25 Neut # (Auto) 2.82 10^3/uL (1.8-7.7) 03/23/24 23:25 Lymph # (Auto) 1.4 10^3/uL (0.8-4.8) 03/23/24 23:25 [place] # (Auto) 0.7 10^3/uL (0.2-0.9) 03/23/24 23:25 Eos # (Auto) 0.3 10^3/uL (0.0-0.8) 03/23/24 23:25 Baso # (Auto) 0.0 10^3/uL (0.0-0.1) 03/23/24 23:25 Nucleated RBC % (auto) 0 % 03/23/24 23:25 Nucleated RBCs # 0.0 /100WBC 03/23/24 23:25 Sodium 142 mmol/L (136-145) 03/23/24 23:25 Potassium 3.1 mmol/L (3.5-5.1) L 03/23/24 23:25 Chloride 100 mmol/L (98-107) 03/23/24 23:25 Carbon Dioxide 29 mmol/L (22-29) 03/23/24 23:25 Anion Gap 16.1 (5-19) 03/23/24 23:25 BUN 15 mg/dL (8-23) 03/23/24 23:25 Creatinine 1.4 mg/dL (0.5-0.9) H 03/23/24 23:25 GFR Calculation 37.2 mL/min (90-130) L 03/23/24 23:25 Glucose 107 mg/dL (65-115) 03/23/24 23:25 Calculated Osmolality 295 mOsm/kg (285-295) 03/23/24 23:25 Calcium 9.4 mg/dL (8.5-10.5) 03/23/24 23:25 Total Bilirubin 0.2 mg/dL (0.15-1.2) 03/23/24 23:25 AST 19 U/L (0-32) 12/12/24 23:25 ALT 9 U/L (0-33) 03/23/24 23:25 Alkaline Phosphatase 157 U/L (35-105) H 03/23/24 23:25 Total Protein 7.4 g/dL (6.6-8.7) 03/23/24 23:25 Albumin 3.9 g/dL (3.5-5.2) 03/23/24 23:25 Globulin 3.5 g/dL (1.3-4.6) 03/23/24 23:25 All radiology interpretation(s) finalized by discharge Discharge Plan Discharge Patient Disposition: Home Clinical Impression: Acute hypokalemia, Acute neck pain Condition: Stable Prescriptions: No Action (DME) tens unit for cervical See Rx Instructions .Route .MEDSUPPLY Qty: 1 0RF Rx Instructions: As directed folic acid 1 mg tablet 1 mg PO DAILY PRN (Reason: Edema) Qty: 90 1RF (DME) insulin syringes (disposable) 1 mL syringe See Rx Instructions .ROUTE .MEDSUPPLY Qty: 25 3RF Rx Instructions: As directed prednisone 20 mg tablet See Rx Instructions PO .COMPLEX PRN (Reason: joint pain flare) Qty: 30 1RF Rx Instructions: take 1 or 2 tab daily for up to 7 days as needed for arthritis flare PO PRN; promethazine 12.5 mg tablet 12.5 mg PO BID PRN (Reason: Nausea) levothyroxine 112 mcg tablet 112 mcg PO QAM Qty: 90 1RF (DME) Bone growth stimulator See Rx Instructions .Route .MEDSUPPLY Qty: 1 0RF Rx Instructions: As directed (DME) Bone growth stimulator See Rx Instructions .Route .MEDSUPPLY Qty: 1 0RF Rx Instructions: As directed ropinirole 5 mg tablet 5 mg PO TID Qty: 270 0RF albuterol sulfate 90 mcg/actuation HFA aerosol inhaler 1 puff inhalation Q6H PRN (Reason: Shortness Of Breath) Qty: 6.7 0RF methotrexate sodium 25 mg/mL solution 20 mg SUBCUT .Q7days Qty: 10 1RF Rx Instructions: ON MONDAYS baclofen 10 mg tablet 10 mg PO Q6H PRN (Reason: Muscle Spasm) Simbrinza 1-0.2 % drops,suspension 1 drp ophthalmic (eye) BID Effer-K 20 mEq tablet, effervescent 20 meq PO DAILY PRN (Reason: WHILE TAKING LASIX) oxycodone 10 mg tablet 10 mg PO Q8H PRN (Reason: Pain) Movantik 12.5 mg tablet 12.5 mg PO QAM pantoprazole 40 mg tablet,delayed release (DR/EC) 40 mg PO BID Qty: 60 0RF Breo Ellipta 100-25 mcg/dose blister with device 1 inh inhalation DAILY Qty: 60 0RF gabapentin 300 mg capsule 300 mg PO TID furosemide 40 mg tablet 40 mg PO DAILY PRN (Reason: Edema) fluticasone propionate 50 mcg/actuation spray,suspension 1 spray INTRANASAL BID Discharge Orders: Discharge ED (Routine); Ordered 03/24/24 Ordered By: Mario James Referrals: Diana Garcia PA [Primary Care Provider] - 1 week Patient Instructions: Hypokalemia, Acute Neck Pain (ED) Activity Restrictions/Additional Instructions: Your evaluation in the ER that included x-rays of your neck your chest and lab work revealed your potassium is low at 3.1. We gave you additional dose of potassium. Please continue taking the potassium you are currently on. Please follow-up with your family practitioner in the next 7 days for recheck of your potassium and further evaluation and treatment. Coding Level of Care Code ED Gut Puller for Maribel Sweet
[2024-03-23 23:33] VITALS: BP 100/52; PULSE 54; RESP 16; O2SAT 94
[2024-03-23 23:36] LABS: Basophils % 0.6 %; Eosinophils # 0.3 10^3/uL (0.0-0.8); Eosinophils % 6.3 %; Hematocrit 34.5 % (36-47); Lymphocytes # 1.4 10^3/uL (0.8-4.8); Lymphocytes % 26.4 %; Mean Corpuscular HGB Conc 31.6 g/dL (30-55); Mean Corpuscular Hemoglobin 28.5 pg (27-33); Mean Corpuscular Volume 90.3 fl (85-98); Mean Platelet Volume 9.5 fL (7.4-10.4); Monocytes # 0.7 10^3/uL (0.2-0.9); Monocytes % 12.9 %; Neutrophils # 2.82 10^3/uL (1.8-7.7); Neutrophils % 53.4 %; Nucleated Red Blood Cells % 0 %; Platelet Count 290 10^3/cmm (157-399); Red Blood Count 3.82 10^6/uL (3.85-5.65); Red Cell Distribution Width 14.8 % (12.1-15.1); White Blood Count 5.27 10^3/uL (3.29-11.43)
[2024-03-23 23:51] LABS: Alanine Aminotransferase 9 U/L (0-33); Albumin Level 3.9 g/dL (3.5-5.2); Alkaline Phosphatase 157 U/L (35-105); Anion Gap 16.1 (5-19); Aspartate Amino Transferase 19 U/L (0-32); Blood Urea Nitrogen 15 mg/dL (8-23); Calcium 9.4 mg/dL (8.5-10.5); Carbon Dioxide 29 mmol/L (22-29); Chloride 100 mmol/L (98-107); Creatinine Clr Calc Pharmacy 40.1727; Globulin 3.5 g/dL (1.3-4.6); Glomerular Filtration Rate 37.2 mL/min (90-130); Glucose 107 mg/dL (65-115); Osmolality Calculated 295 mOsm/kg (285-295); Potassium 3.1 mmol/L (3.5-5.1); Sodium 142 mmol/L (136-145); Total Bilirubin 0.2 mg/dL (0.15-1.2); Total Protein 7.4 g/dL (6.6-8.7)
[2024-03-24] MEDS: potassium chloride ER 20 mEq Tablet 40 MEQ PO (00:37)
[2024-03-24 00:48] VITALS: BP 115/51; PULSE 65; RESP 16; O2SAT 93
== END 2024-03-24 00:51 | disposition home or self-care (01) ==
PROVIDERS: Emergency Provider Emergency Medicine; PCP Physician Assistant
DX: E87.6 Hypokalemia (principal); M54.2 Cervicalgia; Z87.891 Personal history of nicotine dependence; N18.30 Chronic kidney disease, stage 3 unspecified; E78.5 Hyperlipidemia, unspecified
CPT/HCPCS: 36415; 71045; 72040; 80053; 85025; 99284

== ENCOUNTER 2024-08-03 21:04 | Emergency (ER) | payer MEDICARE, OTHER, SELFPAY ==
--- NOTE | 2024-08-03 21:07 | ECG_ITS ---
[facility] Test Date: 2024-08-03 Pat Name: Tosha Perry Department: Room: Gender: Female Foam Tank Laminator: : 1955 Requested By: John Muñoz Order Number: [id number] Mirela MD: Sherine Greene M.D. Measurements Intervals [place] Rate: 92 P: 66 OR: 172 QRS: 44 QRSD: 90 T: 44 QT: 352 QTc: 436 Interpretive Statements SINUS RHYTHM POSSIBLE LEFT ATRIAL ENLARGEMENT [-0.1mV P-WAVE IN V1/V2] LOW QRS VOLTAGE IN PRECORDIAL LEADS [QRS DEFLECTION < 1.0 mV IN CHEST LEADS] INTERPRETATION BASED ON A DEFAULT AGE OF 40 YEARS Compared to ECG 12/29/2023 15:07:57 Low QRS voltage now present Electronically Signed On 08-04-2024 10:40:48 CDT by Sherine Greene M.D. [id number]
[2024-08-03 21:15] VITALS: BP 150/51; PULSE 92; RESP 16; TEMP 36.9; O2SAT 98; BMI 24.2
--- NOTE | 2024-08-03 21:39 | XRR_ITS ---
PROCEDURE INFORMATION: Exam: XR Chest Exam date and time: 08/03/2024 9:52 PM Age: 69 years old Clinical indication: Chest pressure and chest wall pain; Additional info: Chest pain TECHNIQUE: Imaging protocol: Radiologic exam of the chest. Views: 1 view. COMPARISON: CR XR chest 1V portable [id number] 03/23/2024 11:05 PM FINDINGS: Lungs: Unremarkable. No consolidation. Pleural spaces: Unremarkable. No pleural effusion. No pneumothorax. Heart/Mediastinum: Unremarkable. No cardiomegaly. Bones/joints: Unremarkable. XR/XR chest 1V portable [id number] IMPRESSION: No acute findings.
[2024-08-03 21:48] LABS: Basophils % 0.4 %; Eosinophils % 0.4 %; Hematocrit 30.9 % (36-47); Lymphocytes # 2.2 10^3/uL (0.8-4.8); Lymphocytes % 23.2 %; Mean Corpuscular HGB Conc 32.4 g/dL (30-55); Mean Corpuscular Hemoglobin 26.5 pg (27-33); Mean Corpuscular Volume 81.7 fl (85-98); Monocytes # 1.1 10^3/uL (0.2-0.9); Monocytes % 11.6 %; Neutrophils # 5.99 10^3/uL (1.8-7.7); Neutrophils % 64.1 %; Nucleated Red Blood Cells % 0 %; Platelet Count 394 10^3/cmm (157-399); Red Blood Count 3.78 10^6/uL (3.85-5.65); White Blood Count 9.35 10^3/uL (3.29-11.43)
[2024-08-03] MEDS: haloperidol inj 5 mg/mL INJ 1 mL 10 MG IVP (21:53)
--- NOTE | 2024-08-03 21:55 | ECG_ITS ---
[facility] Test Date: 2024-08-03 Pat Name: Tosha Perry Department: Room: Gender: Female Manager Of International: : 1955 Requested By: John uMñoz Order Number: [id number] Mirela MD: Sherine Greene M.D. Measurements Intervals [place] Rate: 82 P: 75 ND: 180 QRS: 56 QRSD: 93 T: 60 QT: 386 QTc: 453 Interpretive Statements SINUS RHYTHM LOW QRS VOLTAGE IN PRECORDIAL LEADS [QRS DEFLECTION < 1.0 mV IN CHEST LEADS] Compared to ECG 12/29/2023 15:07:57 Low QRS voltage now present Electronically Signed On 08-04-2024 10:34:53 CDT by Sherine Greene M.D. [email or web address] [id number]
[2024-08-03 21:57] LABS: D Dimer 0.96 ug/mLFEU (0-0.59)
[2024-08-03 21:59] LABS: Troponin(5th) Baseline 12 ng/L (0-10)
[2024-08-03 22:00] VITALS: BP 146/90; PULSE 84; O2SAT 92
[2024-08-03 22:00] LABS: Alanine Aminotransferase 11 U/L (0-33); Albumin Level 4.6 g/dL (3.5-5.2); Alkaline Phosphatase 232 U/L (35-105); Anion Gap 19.9 (5-19); Aspartate Amino Transferase 22 U/L (0-32); Blood Urea Nitrogen 34 mg/dL (8-23); Calcium 9.3 mg/dL (8.5-10.5); Carbon Dioxide 26 mmol/L (22-29); Chloride 95 mmol/L (98-107); Creatinine Clr Calc Pharmacy 32.4335; Globulin 3.4 g/dL (1.3-4.6); Glomerular Filtration Rate 31.9 mL/min (90-130); Glucose 131 mg/dL (65-115); Lipase 20 U/L (13-60); Osmolality Calculated 293 mOsm/kg (285-295); Potassium 3.9 mmol/L (3.5-5.1); Sodium 137 mmol/L (136-145); Total Bilirubin 0.4 mg/dL (0.15-1.2)
[2024-08-03 22:01] LABS: Alcohol Level < 10 mg/dL (0-10)
[2024-08-03 22:06] VITALS: BP 147/70; PULSE 75; RESP 21; O2SAT 94
[2024-08-03 22:16] LABS: Amphetamines Screen Urine Negative (Negative); Barbiturates Screen Urine Negative (Negative); Benzodiazepines Screen Urine Negative (Negative); Cocaine Screen Urine Negative (Negative); Opiate Screen Urine Negative (Negative); PCP Screen Urine Negative (Negative); THC Screen Urine Positive (Negative)
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
[2024-08-03 22:20] VITALS: BP 147/70; PULSE 72; O2SAT 95
[2024-08-03 23:58] VITALS: PULSE 60; RESP 16; O2SAT 99
[2024-08-04 00:19] VITALS: BP 100/63; PULSE 62; RESP 16; O2SAT 98
[2024-08-04 00:29] LABS: Troponin 5 2HR 12.14 ng/L (0-10); Troponin 5 2HR Delta 0.14 ABS# (0-10)
[2024-08-04 00:34] VITALS: BP 122/57; PULSE 58; RESP 16; O2SAT 99
[2024-08-04 01:00] VITALS: BP 122/57; PULSE 59; O2SAT 95
== END 2024-08-04 01:01 | disposition home or self-care (01) ==
PROVIDERS: Emergency Provider Student in an Organized Health Care Education/Training Program; PCP Physician Assistant
DX: M79.604 Pain in right leg (principal); F41.9 Anxiety disorder, unspecified; Z87.891 Personal history of nicotine dependence; E78.5 Hyperlipidemia, unspecified; N18.30 Chronic kidney disease, stage 3 unspecified
CPT/HCPCS: 71045; 80053; 80306; 80307; 83690; 84484; 85025; 85378; 93005; 96374; 96375; 99285; J1630

== ENCOUNTER → 2024-09-07 15:08 | Outpatient (BNVA) | payer MEDICARE, OTHER, SELFPAY | PROVIDERS: PCP Physician Assistant; Visit Provider Internal Medicine | DX: R07.9 Chest pain, unspecified (principal); Z86.718 Personal history of other venous thrombosis and embolism; Z87.891 Personal history of nicotine dependence | CPT/HCPCS: 99214 ==

== ENCOUNTER 2024-09-23 03:36 | Emergency (ER) | payer MEDICARE, OTHER, SELFPAY ==
[2024-09-23 03:44] VITALS: BP 155/60; PULSE 56; RESP 16; TEMP 36.9; O2SAT 96; BMI 20.9
[2024-09-23 03:53] VITALS: BP 115/70; PULSE 53; O2SAT 94
--- NOTE | 2024-09-23 04:19 | CTR_ITS ---
PROCEDURE INFORMATION: Exam: CT Head Without Contrast Exam date and time: 09/23/2024 5:10 AM Age: 69 years old Clinical indication: Pain; C/O severe diffuse headache. ; Additional info: Bad headache TECHNIQUE: Imaging protocol: Computed tomography of the head without contrast. Radiation optimization: All CT scans at this facility use at least one of these dose optimization techniques: automated exposure control; mA and/or kV adjustment per patient size (includes targeted exams where dose is matched to clinical indication); or iterative reconstruction. COMPARISON: CT angio headneck* [id number] 11/18/2023 9:51 AM RADIATION DOSE METRICS: Total DLP (mGy-cm): 1717.48 FINDINGS: Brain: There is no evidence of acute parenchymal hemorrhage, extra-axial collection, or acute infarction. There is no mass effect, midline shift, or downward herniation. Cerebral ventricles: No ventriculomegaly. Paranasal sinuses: Visualized sinuses are unremarkable. No fluid levels. Mastoid air cells: Visualized mastoid air cells are well aerated. Bones: Unremarkable. No acute fracture. Soft tissues: Unremarkable. CT/CT head wo con* [id number] IMPRESSION: No acute intracranial abnormality.
--- NOTE | 2024-09-23 04:21 | W.ED.HA ---
HPI - Headache General: Chief Complaint: Headache Stated Complaint: Headache, weakness Time Seen by Provider: 09/23/24 04:10 History of Present Illness: Patient presents with complaint of severe headache described as exploding. The headache is accompanied by nausea. Patient reports this is the worst headache they have experienced in some time. Patient also reports neck pain, which is noted to be chronic following neck surgery approximately two years ago. Patient mentions they were scheduled for a GI scope yesterday. Patient arrived via ambulance, and there have been difficulties establishing IV access due to what the patient describes as hard veins. Patient appears to be in significant discomfort during the encounter. Related Data Home Medications ?Medication ?Instructions ?Recorded ?Confirmed promethazine 12.5 mg tablet 12.5 mg PO BID PRN Nausea 05/04/23 09/07/24 baclofen 10 mg tablet 10 mg PO Q6H PRN Muscle Spasm 06/14/23 09/07/24 fluticasone propionate 50 1 spray intranasal BID 09/27/23 09/07/24 mcg/actuation nasal spray,suspension furosemide 40 mg tablet 40 mg PO DAILY PRN Edema 09/27/23 09/07/24 gabapentin 300 mg capsule 300 mg PO TID 09/27/23 09/07/24 brinzolamide 1 %-brimonidine 0.2 % 1 drp ophthalmic (eye) BID 11/18/23 09/07/24 eye drops,suspension (Simbrinza) potassium bicarbonate-citric acid 20 meq PO DAILY PRN WHILE TAKING 11/18/23 09/07/24 20 mEq effervescent tablet LASIX (Effer-K) naloxegol 12.5 mg tablet (Movantik) 12.5 mg PO QAM 12/29/23 09/07/24 oxycodone 10 mg tablet 10 mg PO Q8H PRN Pain 12/29/23 09/07/24 Previous Rx's ?Medication ?Instructions ?Recorded levothyroxine 112 mcg tablet 112 mcg PO QAM low thyroid #90 tabs 10/15/22 Bone growth stimulator #1 ea 01/22/23 Bone growth stimulator #1 ea 02/05/23 ropinirole 5 mg tablet 5 mg PO TID #270 tabs 08/10/23 tens unit for cervical #1 ea 12/16/23 albuterol sulfate 90 mcg/actuation 1 puff inhalation Q6H PRN 12/20/23 aerosol inhaler Shortness Of Breath #6.7 grams pantoprazole 40 mg tablet,delayed 40 mg PO BID #60 tabs 12/30/23 release fluticasone furoate 100 1 inh inhalation DAILY #60 ea 12/31/23 mcg-vilanterol 25 mcg/dose inhalation powder (Breo Ellipta) folic acid 1 mg tablet 1 mg PO DAILY PRN Edema #90 tabs 02/09/24 prednisone 20 mg tablet See Rx Instructions PO .COMPLEX 02/09/24 PRN joint pain flare #30 tabs insulin syringes (disposable) 1 mL #25 ea 05/30/24 methotrexate sodium 25 mg/mL 20 mg (0.8 mL) SUBCUT .Q7days #10 05/30/24 injection solution mL Allergies Allergy/AdvReac Type Severity Reaction Status Date / Time ibuprofen Allergy Unknown ADR-Anxiety Verified 09/23/24 04:24 tizanidine Allergy Unknown Unknown Verified 09/23/24 04:24 acetaminophen Allergy ADR-Anxiety Verified 09/23/24 04:24 amitriptyline Allergy ADR-Agitate Verified 09/23/24 04:24 d diphenhydramine (From Allergy ADR-Agitate Verified 09/23/24 04:24 Benadryl) d morphine Allergy ADR-Halluci Verified 09/23/24 04:24 nating prochlorperazine (From Allergy Unknown Verified 09/23/24 04:24 Compazine) leflunomide AdvReac Intermediate GI adverse Verified 09/23/24 04:24 reactions sulfasalazine AdvReac Intermediate ADR-Nausea Verified 09/23/24 04:24 and acid reflux Review of Systems General: Reports: 10 or more systems reviewed and unremarkable except in HPI and below PFS ED PFSH: Medical History (Updated 09/23/24 @ 06:01 by Indio Jesus DO) DVT (deep venous thrombosis) Acute GI bleeding History of deep vein thrombosis GERD (gastroesophageal reflux disease) Pre-operative clearance Pneumonia Acute anemia Hematoma complicating a procedure Cervical adenopathy GI bleed Osteoarthritis, shoulder Cervical spondylosis with myelopathy GERD with esophagitis Allergic rhinitis due to allergen RLS (restless legs syndrome) Substance or medication-induced sleep disorder, insomnia type Anxiety and depression High risk medication use Seropositive rheumatoid arthritis of multiple sites Extrapyramidal and movement disorder CKD (chronic kidney disease) stage 3, GFR 30-59 ml/min Lung nodule, solitary Prediabetes Hyperlipidemia Iron deficiency anemia Hypothyroidism Surgical History S/P insertion of IVC (inferior vena caval) filter Status post cervical spinal fusion History of cholecystectomy History of appendectomy History of delivery History of hysterectomy with bilateral oophorectomy History of ankle surgery left Previous back surgery Social History Smoking and tobacco/nicotine status: former use of tobacco/nicotine Quit status (tobacco/nicotine): has quit using Year quit tobacco: 2009 Former quit date comment: Smoked for 9 months Alcohol intake: current Alcohol intake frequency: holidays/special occasions only Substance/Drug Use: never Physical Exam Const: COMMON NORMALS: no acute distress, patient oriented x3, alert and well nourished HENMT: COMMON NORMALS: normocephalic HEAD & SCALP: normocephalic Eye: COMMON NORMALS: Equal, round and reactive pupils present, EOMs intact bilaterally and conjunctivae normal CONJUNCTIVA: Yes conjunctivae normal PUPIL: Yes Equal, round and reactive pupils present Neck/C-Spine: COMMON NORMALS: full ROM, no lymphadenopathy, supple, no meningeal signs, no JVD and Thyroid normal THYROID: Thyroid normal Chest: COMMONS NORMALS: normal inspection of the chest and normal palpation of entire chest wall Resp: COMMON NORMALS: normal respiratory effort, No retractions, No use of accessory muscles, clear to auscultation bilaterally and percussion normal AUSCULTATION: clear to auscultation bilaterally PERCUSSION: percussion normal Cardio: COMMON NORMALS: no JVD GI: COMMON NORMALS: Normal to inspection, nondistended, normoactive bowel sounds present, Soft to palpation, non-tender, No hepatosplenomegaly present, no masses and no bruits PALPATION: Yes Soft to palpation and Yes No hepatosplenomegaly present Extremity: COMMON NORMALS: normal to inspection, full ROM, capillary refill normal, no joint enlargement, no clubbing, cyanosis or edema, no calf tenderness and no pedal edema Neuro: COMMON NORMALS: patient oriented x3 SENSORIUM/ORIENTATION: Yes alert MENINGEAL SIGNS: Yes no meningeal signs Skin: COMMON NORMALS: no rashes or lesions noted, turgor normal and no jaundice GENERAL SKIN EXAM: no rashes or lesions noted and turgor normal Course Vital Signs: Vital signs: Vital Signs Temperature 98.4 F 09/23/24 03:44 Pulse Rate 57 L 09/23/24 05:00 Respiratory Rate 16 09/23/24 03:44 Blood Pressure 143/66 09/23/24 05:00 Pulse Oximetry 96 09/23/24 05:00 Oxygen Delivery Me thod Room Air 09/23/24 05:00 MDM - Headache Medical Decision Making 1. Acute Severe Headache: - Concerning for potential secondary headache given severity described as exploding and associated symptoms - Consider CT head to rule out intracranial pathology, check labs including ESR - Administer parenteral analgesics for pain control once IV access established - Consider antiemetics for associated nausea 2. Chronic Neck Pain: - History of neck surgery two years ago - Not new or changed - Consider relationship between neck pain and headache (possible cervicogenic component) 3. Nausea: - Likely secondary to severe headache - Administer antiemetics once IV access established 4. Difficult IV Access: - Consider ultrasound-guided IV placement - Alternative routes of medication administration if IV access cannot be established 5. Recent GI Procedure: - Obtain records from recent GI scope performed yesterday - Assess for any potential relationship to current symptoms Will continue to monitor patient closely and adjust treatment plan as needed based on clinical response and diagnostic findings. Patient is allergic to a variety of different medications many of which are commonly used for headaches she says the only thing that works for her is morphine or Dilaudid although she does list morphine as an allergy as well. She is very insistent on Phenergan and morphine or Dilaudid for headache. The workup here was for the most part nondiagnostic or unremarkable her head CT was showing no acute findings her sed rate and other labs were normal or nondiagnostic ultimately it was decided that we do a trial of intramuscular Phenergan and a small dose of Dilaudid and we would be able to discharge patient if she had response or partial response it did not appear that there was any sort of life-threatening or serious type of condition tonight. Return precautions follow-up instructions were given. Lab Data 09/23/24 04:29 09/23/24 04:[address] 09/23/24 04:19 IMPRESSION: No acute intracranial abnormality. Laboratory Results WBC 6.10 10^3/uL (3.29-11.43) 09/23/24 04: RBC 3.58 10^6/uL (3.85-5.65) L 09/23/24 04:29 Hgb 9.00 g/dL (11.27-16.99) L 09/23/24 04:29 Hct 29.6 % (36-47) L 09/23/24 04: MCV 82.7 fl (85-98) L 09/23/24 04:29 MCH 25.1 pg (27-33) L 09/23/24 04: MCHC 30.4 g/dL (30-55) 09/23/24 04: RDW 16.3 % (12.1-15.1) H 09/23/24 04:29 Plt Count 303 10^3/cmm (157-399) 09/23/24 04:29 MPV 9.9 fL (7.4-10.4) 09/23/24 04:29 Neut % (Auto) 51.3 % 09/23/24 04:29 Lymph % (Auto) 27.0 % 09/23/24 04:29 [place] % (Auto) 15.4 % 09/23/24 04:29 Eos % (Auto) 4.9 % 09/23/24 04:29 Baso % (Auto) 0.7 % 09/23/24 04:29 Neut # (Auto) 3.13 10^3/uL (1.8-7.7) 09/23/24 04:29 Lymph # (Auto) 1.7 10^3/uL (0.8-4.8) 09/23/24 04:29 [place] # (Auto) 0.9 10^3/uL (0.2-0.9) 09/23/24 04:29 Eos # (Auto) 0.3 10^3/uL (0.0-0.8) 09/23/24 04:29 Baso # (Auto) 0.0 10^3/uL (0.0-0.1) 09/23/24 04:29 Nucleated RBC % (auto) 0 % 09/23/24 04:29 Nucleated RBCs # 0.0 /100WBC 09/23/24 04:29 ESR 34 mm/hr (0-15) H 09/23/24 04:29 Sodium 143 mmol/L (136-145) 09/23/24 04:29 Potassium 3.3 mmol/L (3.5-5.1) L 09/23/24 04:29 Chloride 102 mmol/L (98-107) 09/23/24 04:29 Carbon Dioxide 27 mmol/L (22-29) 09/23/24 04:29 Anion Gap 17.3 (5-19) 09/23/24 04:29 BUN 18 mg/dL (8-23) 09/23/24 04:29 Creatinine 1.3 mg/dL (0.5-0.9) H 09/23/24 04:29 GFR Calculation 40.5 mL/min (90-130) L 09/23/24 04:29 Glucose 97 mg/dL (65-115) 09/23/24 04:29 Calculated Osmolality 298 mOsm/kg (285-295) H 09/23/24 04:29 Calcium 9.2 mg/dL (8.5-10.5) 09/23/24 04:29 All radiology interpretation(s) finalized by discharge ED provider radiology interpretation(s): No acute findings Discharge Plan Discharge Patient Disposition: Home Clinical Impression: Headache, Chronic neck pain Condition: Stable Prescriptions: No Action (DME) tens unit for cervical See Rx Instructions .Route .MEDSUPPLY Qty: 1 0RF Rx Instructions: As directed folic acid 1 mg tablet 1 mg PO DAILY PRN (Reason: Edema) Qty: 90 1RF prednisone 20 mg tablet See Rx Instructions PO .COMPLEX PRN (Reason: joint pain flare) Qty: 30 1RF Rx Instructions: take 1 or 2 tab daily for up to 7 days as needed for arthritis flare PO PRN; promethazine 12.5 mg tablet 12.5 mg PO BID PRN (Reason: Nausea) levothyroxine 112 mcg tablet 112 mcg PO QAM Qty: 90 1RF (DME) Bone growth stimulator See Rx Instructions .Route .MEDSUPPLY Qty: 1 0RF Rx Instructions: As directed (DME) Bone growth stimulator See Rx Instructions .Route .MEDSUPPLY Qty: 1 0RF Rx Instructions: As directed ropinirole 5 mg tablet 5 mg PO TID Qty: 270 0RF albuterol sulfate 90 mcg/actuation HFA aerosol inhaler 1 puff inhalation Q6H PRN (Reason: Shortness Of Breath) Qty: 6.7 0RF (DME) insulin syringes (disposable) 1 mL syringe See Rx Instructions .ROUTE .MEDSUPPLY Qty: 25 3RF Rx Instructions: As directed methotrexate sodium 25 mg/mL solution 20 mg SUBCUT .Q7days Qty: 10 1RF Rx Instructions: ON MONDAYS baclofen 10 mg tablet 10 mg PO Q6H PRN (Reason: Muscle Spasm) Simbrinza 1-0.2 % drops,suspension 1 drp ophthalmic (eye) BID Effer-K 20 mEq tablet, effervescent 20 meq PO DAILY PRN (Reason: WHILE TAKING LASIX) oxycodone 10 mg tablet 10 mg PO Q8H PRN (Reason: Pain) Movantik 12.5 mg tablet 12.5 mg PO QAM pantoprazole 40 mg tablet,delayed release (DR/EC) 40 mg PO BID Qty: 60 0RF Breo Ellipta 100-25 mcg/dose blister with device 1 inh inhalation DAILY Qty: 60 0RF gabapentin 300 mg capsule 300 mg PO TID furosemide 40 mg tablet 40 mg PO DAILY PRN (Reason: Edema) fluticasone propionate 50 mcg/actuation spray,suspension 1 spray INTRANASAL BID Discharge Orders: Discharge ED (Routine); Ordered 09/23/24 Ordered By: Indio Jesus Referrals: Diana Garcia PA [Primary Care Provider, [facility]] Discharge Diet: Advance as tolerated Discharge Activity: Resume usual activity Patient Instructions: Opioid Safety, Pain Management Activity Restrictions/Additional Instructions: 1. Rest, fluids take home medications as directed. Use Tylenol as directed continue to avoid NSAIDs. Follow-up with primary care for treatment and management of headaches. 2. Return to the emergency department for fever, intractable pain or vomiting or other new or worrisome symptoms. Print Language: Guyanese Coding Level of Care Code ED Resistor Testing Machine Operator for Maribel Sweet
[2024-09-23 04:46] LABS: Basophils % 0.7 %; Eosinophils # 0.3 10^3/uL (0.0-0.8); Eosinophils % 4.9 %; Hematocrit 29.6 % (36-47); Lymphocytes # 1.7 10^3/uL (0.8-4.8); Mean Corpuscular HGB Conc 30.4 g/dL (30-55); Mean Corpuscular Hemoglobin 25.1 pg (27-33); Mean Corpuscular Volume 82.7 fl (85-98); Mean Platelet Volume 9.9 fL (7.4-10.4); Monocytes # 0.9 10^3/uL (0.2-0.9); Monocytes % 15.4 %; Neutrophils # 3.13 10^3/uL (1.8-7.7); Neutrophils % 51.3 %; Nucleated Red Blood Cells % 0 %; Platelet Count 303 10^3/cmm (157-399); Red Blood Count 3.58 10^6/uL (3.85-5.65); Red Cell Distribution Width 16.3 % (12.1-15.1)
[2024-09-23 04:52] LABS: Anion Gap 17.3 (5-19); Blood Urea Nitrogen 18 mg/dL (8-23); Calcium 9.2 mg/dL (8.5-10.5); Carbon Dioxide 27 mmol/L (22-29); Chloride 102 mmol/L (98-107); Creatinine Clr Calc Pharmacy 37.6114; Glomerular Filtration Rate 40.5 mL/min (90-130); Glucose 97 mg/dL (65-115); Osmolality Calculated 298 mOsm/kg (285-295); Potassium 3.3 mmol/L (3.5-5.1); Sodium 143 mmol/L (136-145)
[2024-09-23 05:00] VITALS: BP 143/66; PULSE 57; O2SAT 96
[2024-09-23 05:02] LABS: Erythrocyte Sedimentation Rate 34 mm/hr (0-15)
--- NOTE | 2024-09-23 05:24 | PC.NURSE ---
Pt. is angry and refused morphine because she is allergic, allergic to benadryl , reglan upsets her restless legs. Pt. states I need a doctor , an actual damn good doctor Tell him if he isn't going to give me something for pain I will be angry . When offered toradol patient gets angry and states I have a GI bleeding problem , can he not read my fucking chart, He's just trying to do the bare minimum to get me out.
[2024-09-23] MEDS: HYDROmorphone 0.5 MG/0.5 ML INJ IVP (06:07)
[2024-09-23] MEDS: promethazine 25 mg/mL SDV 1 mL 50 MG IM ×2 (06:08→06:09)
[2024-09-23 06:31] VITALS: BP 86/45; PULSE 47; O2SAT 90
== END 2024-09-23 06:39 | disposition home or self-care (01) ==
PROVIDERS: Emergency Provider Family Medicine; PCP Physician Assistant
DX: R51.9 Headache, unspecified (principal); M54.2 Cervicalgia; Z87.891 Personal history of nicotine dependence; E78.5 Hyperlipidemia, unspecified; N18.9 Chronic kidney disease, unspecified
CPT/HCPCS: 70450; 80048; 85025; 85651; 96372; 96374; 99285; J1171; J2550

== ENCOUNTER 2024-10-23 14:42 | Observation (INO) | payer MEDICARE, OTHER, SELFPAY ==
--- OUTSIDE RECORDS SUMMARY | 2024-07-17 04:30 | XMS_ITS ---
Author Organization [facility] Address [address] [place] [address] Care Team Providers Care Vocational Rehabilitation Consultant Name Role Phone Diana Galvan Primary Care Provider Mode Leavitt Unavailable [phone] Paxton Nobles Unavailable [phone] REASON FOR VISIT wants new mri Encounters Encounter Location Date Provider Diagnosis [facility] [place] [address] [place] [address] 07/17/2024 Paxton Nobles Plan Of Treatment Next Appt Details Provider Name:Mode Cabello, 12/06/2024 09:40:00 AM, [address] [place], [address], Progress Notes * BARRY VAN SDOB:[birth year] (69 yo F)Acc No.[id number]:07/17/2024 Progress Notes Patient: BARRY LIVINGSTON Provider: Rosalia Nobles APRN :1955 A ge:69 Y S ex:Female Date:07/17/2024 Address:[address] [place] [address] [place] [phone] Pcp:SHIV Chong Subjective: * Chief Complaints: * W ants new mri Billing Information: * Procedure Codes: Care Plan Details* * Electronic signature of MALIK Alcazar on 10/23/2024 at 02:47 PM CDT Sign off status: Pending * Provider: Rosalia Nobles APRN Date: 0 07/17/2024 Generated for Shen Faith/Chandler on: 0 10/23/2024 02:47 PM CDT
[2024-10-23] VITALS (11 sets, daily range): BP systolic 105–151; BP diastolic 55–89; PULSE 45–60; RESP 16–18; TEMP 36.9; O2SAT 90–98; BMI 22.4
--- NOTE | 2024-10-23 14:42 | XR_ITS ---
WS: [id number] XR chest 1V portable [id number] REASON FOR EXAM: ams FINDINGS: Except for suboptimal inspiratory effort, the chest is unchanged compared to the examination of 08/03/2024. Presumed new medical tech overlying the left chest. There is moderate tortuosity and ectasia of the thoracic aorta. Heart size is at the upper limits of normal. No acute pulmonary parenchymal or pleural abnormality is seen. XR/XR chest 1V portable [id number] IMPRESSION: Stable chest without acute abnormality.
--- NOTE | 2024-10-23 14:42 | CTR_ITS ---
PROCEDURE INFORMATION: Exam: CT Head Without Contrast Exam date and time: 10/23/2024 4:25 PM Age: 69 years old Clinical indication: Other: Seizure activity; Prior surgery; Surgery date: 6+ months; Surgery type: Cervical fusion; Additional info: AMS TECHNIQUE: Imaging protocol: Computed tomography of the head without contrast. Radiation optimization: All CT scans at this facility use at least one of these dose optimization techniques: automated exposure control; mA and/or kV adjustment per patient size (includes targeted exams where dose is matched to clinical indication); or iterative reconstruction. COMPARISON: CT head wo con* [id number] 09/23/2024 5:10 AM RADIATION DOSE METRICS: Total DLP (mGy-cm): 1016.6 FINDINGS: Brain: Normal. No hemorrhage. Unremarkable white matter. No mass effect. Cerebral ventricles: No ventriculomegaly. Paranasal sinuses: Visualized sinuses are unremarkable. No fluid levels. Mastoid air cells: Visualized mastoid air cells are well aerated. Bones: Unremarkable. No acute fracture. Soft tissues: Unremarkable. CT/CT head wo con* [id number] IMPRESSION: No acute intracranial abnormality.
--- OUTSIDE RECORDS SUMMARY | 2024-10-23 14:47 | XMS_ITS | Patient Health Record ---
Author Organization [facility] [employer] Address [address] [facility] [address] [place] [address] Support Name Relationship Address Phone BARRY VAN Guarantor Unknown [phone] Allergies Allergen (clinical drug ingredient) Drug/Non Drug Allergy documented on EMR Reaction Allergy Type Onset Date Status diphenhydramine Benadryl Unknown Drug Allergy A ctive sumatriptan Imitrex Unknown Drug Allergy Activ e Compazine Unknown Drug Allergy Active Reason For Referral No Information Medications Medication SIG (Take, Route, Frequency, Duration) Notes Start Date End Date Status Potassium Chloride ER 10 MEQ TAKE 1 TABLET BY MOUTH TWICE A DAY WITH FOOD FOR 30 DAYS for 30 Active Levothyroxine Sodium 112 MCG TAKE 1 TABLET IN THE MORNING ON AN EMPTY STOMACH ORALLY ONCE A DAY for 30 Active Ondansetron HCl 4 MG TAKE 1 TABLET BY MO UTH EVERY DAY NEEDED FOR 30 DAYS for 30 Active clonazePAM 1 MG 1 tablet Orally Once a day Not-Taking FLUoxetine HCl 20 MG TAKE 1 CAPSULE BY MOUTH EVERY DAY for 30 Active Baclofen 10 MG TAKE 1 TABLET BY ANTHONY TH TWICE A DAY NEEDED FOR 30 DAYS Active Gabapentin 300 MG TAKE ONE CAPSULE BY MOUTH 3 TIMES A DAY for 30 Active oxyCODONE HCl 5 MG 1 tablet as needed Orally One bid Active rOPINIRole HCl 3 MG 1 tablet 1 to 3 hour s before bedtime Orally Once a day Active Furosemide 40 MG TAKE 1 TABLET BY ANTHONY TH EVERY DAY for 30 Active Pantoprazole Sodium 40 MG TAKE 1 TABLET BY MOUTH EVERY DAY FOR 30 DAYS for 90 Active Social History Tobacco Use: Social History Observation Description Date Details (start date - stop date) Never Smoker NA - NA Tobacco Use/Smoking Question Answer Notes Are you a nonsmoker Alcohol Screen (Audit-C) Question Answer Notes Did you have a drink containing alcohol in the p ast year? No Points 0 Interpretation Negative Problems Problem Type SNOMED Code ICD Code Onset Dates Problem Status W/U Status Risk Notes Problem 73770827 Other specified hypothyroidism (E03.8) Active confirmed Problem 239350873 Other chronic pancreatitis (K86.1) Active confirmed Problem 833278275424999 Lumbago with sciatica, right side (M54.41) Active confirmed Problem 049373825 Lumbago with sciatica, left side (M54.42) Active confirmed Problem 68233645 Anxiety (F41.9) Active confirmed Problem 09254430 PTSD (post-traumatic stress disorder) (F43.10) Active confirmed Problem 50747020 Other congestive heart failure (I50.9) Active confirmed Problem 153477274 Chronic pain aft er traumatic injury (G89.21) Active confirmed Plan Of Treatment Future Test Test Name Order Date Thyroxine (T4) Free, Direct, S 3 TSH 05/20/2022 CBC With Differential/Platelet 3 Triiodothyronine (T3), Free 05/20/2022 Lipid Panel With LDL/HDL Ratio 3 Comp. Metabolic Panel (14) 05/20/2022 Insurance Providers Payer Name Payer Address Payer Phone Subscriber Number Group Number Insured Name Patient Relationship to Insured Coverage Start Date Coverage End Date [place], [place] [address] [address] GABI BRIZUELA [phone] [id number] BARRY VAN Self - patient is the insured [employer] [address] [place] [address] [place] [id number] MARGEBARRY WILLETT Self - patient is the insured Medical (General) History Medical History History ICD Code Hypothyroidism head injury with seizures multiple traumatic injuries from [facility] back surgery pancreatitis cataract pneumonia depression GERD Surgical History Surgery Date(Month/Year) back surgery 2015 Hospitalization History Reason Date(Month/Year) Pneumonia and hand infection. 11/2021
--- OUTSIDE RECORDS SUMMARY | 2024-10-23 14:47 | XMS_ITS | Clinical Summary ---
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
--- OUTSIDE RECORDS SUMMARY | 2024-10-23 14:47 | XMS_ITS | Data Portability ---
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 Plan of Treatment Reminders Order Date Submit Date Provider Last Modified By Organization Details Last Modified Time Details Appointments None recorded. Lab vitamin B12, serum 2019 020 [email or web address] [facility], [address] [place] [address], [address], 0 22:21:02 HbA1c (hemoglobi n A1c), blood 2019 020 [email or web address] [facility], [address] [place] [address], [address], 0 22:21:18 spep + immunoglob ulins, serum 2019 020 [email or web address] [facility], [address] [place] [address], [address], 0 22:21:18 vitamin B6 (pyridoxin e), QL, blood 2019 020 [email or web address] [facility], [address] [place] [address], [address], 0 22:21:18 cryoglobul in, immunofixa tion, serum 2019 020 [facility], [address] [facility], [place], [address], 0 22:21:18 iron + TIBC + ferritin, serum 2019 [email or web address] [facility], [address] [facility], [address], [place], [address], 0 22:21:18 Referral None recorded. Procedures None recorded. Surgeries None recorded. Imaging None recorded. Medication Orders Requip 5 mg tablet 2019 INTERFACE [facility], [address] [place] [address], [address], 0 11:06:57 Neurontin 300 mg capsule 2019 INTERFACE [facility], [address] [place] [address], [address], 0 11:06:54 Requip 5 mg tablet 2019 INTERFACE [facility], [address] [place] [address], [address], 0 12:04:10 Neurontin 300 mg capsule 2019 INTERFACE [facility], [address] [place] [address], [address], 0 12:04:06 Patient TargetsNo targets recorded. Patient Instructions Encounter Date Encounter Id Patient Instructions Last Modified By Organization Details Last Modified Time 11/20/2019 [id number] Maintain proper hydration, sleep and nutrition. Avoid smoking, excessive caffeine and alcohol consumption. Any worsening symptoms or new symptoms advised to seek immediate medical attention. Fall precaution. [email or web address] Not available 11/20/2019 11:06:06 Reason for Referral None Reported. Results Created Date Observation Date Name Description Value Unit Range Abnormal Flag Note LastModifiedBy Organization Detail LastModifiedTime 11/17/19 20 12/04/2017 MRI, brain , w/wo contr ast No observ ation record ed. [email or web address] Not Available 2019 11:05:02 Result Notes None recorded. Problems Name Problem SNOMED Code Status Onset Date Resolution Date Notes Provider Name and Address Organization Details Recorded Time Chronic back pain 932868485 Active 2019 Mirta gustafson [place] - [facility] 0 10:56:11 Pain in bilateral legs 583690693147 53503 Active 2019 Mirta gustafson [place] - [facility] 0 10:56:19 Problem Notes None recorded. Procedures Surgical History Date Name Laterality Status Provider Name and Address Organization Details Recorded Time biopsy of breast completed Mirta VALENCIA - [facility] 05/19/2019 09:21:25 Cataract Surgery completed Mirta VALENCIA - [facility] 05/19/2019 09:21:39 Cholecystectomy completed Mirta VALENCIA - [facility] 05/19/2019 09:21:44 Hemorrhoidectomy completed Mirta VALENCIA - [facility] 05/19/2019 09:21:54 Hysterectomy completed Mirta VALENCIA - [facility] 05/19/2019 09:22:00 oophorectomy completed Mirta VALENCIA - [facility] 05/19/2019 09:22:09 Unlisted px accessory sinus completed Mirta VALENCIA - [facility] 05/19/2019 09:22:20 anal fissurectomy completed Mirta VALENCIA - [facility] 05/19/2019 09:22:32 Appendectomy completed Mirta VALENCIA - [facility] 05/19/2019 09:22:38 Caesarean Section completed Mirta VALENCIA - [facility] 05/19/2019 09:22:48 Dilation and Curettage completed Mirta VALENCIA - [facility] 05/19/2019 09:22:56 Imaging Results None recorded. Procedure Notes None recorded. Medical Equipment None Reported. Allergies Allergen ID Allergen Name Allergen Category Reaction Reaction Severity Criticality Documentation Date Start Date Code Code System Note Provider Name and Address Organization Details Recorded Time 3539 Imitrex medicatio n Not available Not available Not available 05/19/2019 08278 3 RxNorm Mirta gustafson [place] - [facility] 0 09:19:13 3540 Benadryl medicatio n Not available Not available Not available 05/19/201945355 7 RxNorm Mirta Jones janay, [facility] 0 09:19:18 3541 Reglan medicatio n Not available Not available Not available 05/19/2019 9230 RxNorm Mirta Jones janay, [facility] 0 09:19:25 3542 amitripty line medicatio n Not available Not available Not available 05/19/2019 704 RxNorm Mirta Jones janay, [facility] 0 09:19:29 Medications Name Sig Start Date Stop Date Status Note LastModified by Organization Details LastModified Time cyclobenzap rine 10 mg tablet Take 1 tablet every 8 hours by oral route as needed for 30 days. 07/30 completed Not Available Not Available Not Available amoxicillin 500 mg capsule 05/19 completed Not Available Not Available Not Available prednisone 10 mg tablet 05/19 completed Not Available Not Available Not Available gabapentin 600 mg tablet 05/19 completed Not Available Not Available Not Available alprazolam 1 mg tablet 05/19 completed Not Available Not Available Not Available tizanidine 4 mg tablet 05/19 completed Not Available Not Available Not Available hydrocodone 5 mg-acetamin ophen 325 mg tablet 11/19 completed Not Available Not Available Not Available Lasix 40 mg tablet Take 1 tablet every day by oral route. 11/19 completed Not Available Not Available Not Available prednisone 20 mg tablet 05/19 completed Not Available Not Available Not Available ropinirole 3 mg tablet Take 1 tablet 3 times a day by oral route for 30 days. 11/19 completed Not Available Not Available Not Available prednisone 5 mg tablet 05/19 completed Not Available Not Available Not Available potassium chloride ER 10 mEq tablet,exte nded release 05/19 completed Not Available Not Available Not Available acetaminoph en 300 mg-codeine 30 mg tablet 05/19 completed Not Available Not Available Not Available divalproex 500 mg tablet,carmen yed release 05/19 completed Not Available Not Available Not Available hydrocodone 10 mg-acetamin ophen 325 mg tablet 05/19 completed Not Available Not Available Not Available peg-electro lyte solution 420 gram oral solution 05/19 completed Not Available Not Available Not Available omeprazole 40 mg capsule,del ayed release 05/19 completed Not Available Not Available Not Available tramadol 50 mg tablet 05/19 completed Not Available Not Available Not Available ondansetron 8 mg disintegrat ing tablet 11/19 completed Not Available Not Available Not Available alprazolam 0.5 mg tablet 05/19 completed Not Available Not Available Not Available cephalexin 500 mg capsule 05/19 completed Not Available Not Available Not Available pantoprazol e 40 mg tablet,carmen yed release 11/19 completed Not Available Not Available Not Available simvastatin 20 mg tablet 05/19 completed Not Available Not Available Not Available promethazin e 25 mg tablet 05/19 completed Not Available Not Available Not Available gabapentin 300 mg capsule Take 2 capsules 3 times a day by oral route for 30 days. active Not Available Not Available No t Available folic acid 1 mg tablet 05/19 completed Not Available Not Available Not Available Synthroid 112 mcg tablet Take 1 tablet every day by oral route. active Not Available Not Available No t Available BD Tuberculin Syringe 1 mL 25 gauge x 08/17 completed Not Available Not Available Not Available ibuprofen 600 mg tablet 11/19 completed Not Available Not Available Not Available oxycodone-a cetaminophe n 7.5 mg-325 mg tablet 11/19 completed Not Available Not Available Not Available ropinirole 5 mg tablet Take 1 tablet 3 times a day by oral route for 30 days. active Not Available Not Available No t Available dicyclomine 10 mg capsule 11/19 completed Not Available Not Available Not Available naproxen 500 mg tablet 05/19 completed Not Available Not Available Not Available methotrexat e sodium (PF) 25 mg/mL injection solution as directed 07/30 completed Not Available Not Available Not Available Topamax 50 mg tablet Take 1 tablet twice a day by oral route. 07/30 completed Not Available Not Available Not Available nitrofurant oin monohydrate /macrocryst als 100 mg capsule 05/19 completed Not Available Not Available Not Available levetiracet am 1,000 mg tablet 05/19 completed Not Available Not Available Not Available ferrous sulfate 324 mg (65 mg iron) tablet,carmen yed release 05/19 completed Not Available Not Available Not Available Voltaren 1 % topical gel 05/19 completed Not Available Not Available Not Available Dexilant 60 mg capsule, delayed release Take 1 capsule every day by oral route for 7 days. 11/19 completed Not Available Not Available Not Available Vitals Date Recorded Body height Body mass index (BMI) Body weight Provider Name and Address Organization Details Last Updated DateTime 07/31/2019 167.64 cm 21 kg/m2 88540.01 g Mirta Jones [facility] 07/31/2019 11:39:03 Date Recorded Body height Body mass index (BMI) Body weight Heart rate Systolic And Diastolic Provider Name and Address Organization Details Last Updated DateTime 11/20/2019 167.64 cm 21 kg/m2 79491.01 g 85 /min 150/86 mm[Hg] Juliette Ashford [facility] 0 10:47:58 Social History Question Answer Notes LastModified by [employer] Details LastModified Time Tobacco Smoking Status Former Smoker Mirta gustafson [facility] [employer] 05/19/2019 10:56:27 What Is Your Level Of Caffeine Consumption? Moderate [email or web address] Information not available 05/19/2019 How Much Tobacco Do You Chew? None [email or web address] Information not available 05/19/2019 What Was The Date Of Your Most Recent Tobacco Screening? 11/20/2019 [email or web address] Information not available 11/20/2019 How Much Tobacco Do You Smoke? No [email or web address] Information not available 05/19/2019 On What Date Was Tobacco Cessation Counseling Provided? 11/20/2019 [email or web address] Information not available 11/20/2019 How Many Years Have You Smoked Tobacco? 1 Information not available 05/19/2019 Sex: Unknown Functional Status Question Answer Note LastModified by [employer] Details LastModified Time What is your level of alcohol consumption? None [email or web address] Information not available 05/19/2019 Do you or have you ever used smokeless tobacco? Never used smokeless tobacco [email or web address] Information not available 05/19/2019 Do you or have you ever used e-cigarettes or vape? Never used electronic cigarettes Information not available 05/19/2019 Mental Status None recorded. Family History Relationship Description Onset Age of this Age Resolved Age Notes LastModified by Organization Details LastModified Time Unspecified Relation Diabetes mellitus [email or web address] Not available 2019 10:58:42 Medical History Condition Response Anxiety Disorder Y Diabetes Y Arthritis Y Seizures/Epilepsy Y Hyperlipidemia Y Cancer N Stroke N Thyroid Problems Y Depression Y Epilepsy/Seizures Y Ulcers Y Heart Attack ([place]) N Headaches Y Hypertension Y Gynecological HistoryNo gynecological history recorded. Obstetrics History GPAL:G 0 P 0 0 0 0 Immunizations Vaccine Type Date Status Note Provider Nam e and Address Organization Details Recorded Time pneumococcal, unspecified formulation 0 [facility] 07/31/2019 11:45:23 Past Encounters Encounter ID Performer Location Encounter Start Date Encounter Closed Date Diagnosis/Indication Diagnosis SNOMED-CT Code Diagnosis ICD10 Code Diagnosis Note [id number] Monty Maharaj MD [address], [address] [place] [address] 05/19/2019 10:38:03 05/19/2019 11:28:20 Pain in lower limb 08482958 M79.604 M79.605 Pain in upper limb 62405 6003 M79.601 M79.602 Dizziness 035384836 R42 Syncope 472030274 R55 Restless legs 24836227 G 25.81 [id number] Monty Maharaj MD [address], [address] [place] [address] 05/22/2019 14:05:37 05/22/2019 15:23:16 Dizziness 045349976 R42 Benign par oxysmal positional vertigo 536629180 H81.12 [id number] Monty Maharaj MD [address], [address] [place] [address] 05/22/2019 14:07:24 05/22/2019 15:23:30 Dizziness 123459910 R42 Advised to see PCP for irregular heart rhythm. [id number] 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 Pain in lower limb 91088 006 M79.605 Neurontin changed to 2 tabs po tid. Polyneuropathy 43525677 G62.9 Moderate to severe axonal motor and sensory Dizziness 794470771 R42 Advised to see PCP for irregular heart rhythm. Benign par oxysmal positional vertigo 292007527 H81.12 PT recommende d. Restless legs 14393961 G 25.81 Requip changed to 5mg. [id number] Monty Maharaj MD [address], [address] [place] [address] 11/20/2019 10:37:24 11/20/2019 11:15:23 Dizziness 694524718 R42 Advised to see PCP for irregular heart rhythm. Benign par oxysmal positional vertigo 617271198 H81.12 PT recommende d. Ulnar neur opathy of left arm 6204313165 07381 G56.22 Sensory. Pain in lower limb 57020 006 M79.605 Neurontin changed to 2 tabs po tid. Polyneuropathy 61066748 G62.9 Moderate to severe axonal motor and sensory. Restless legs 13968725 G 25.81 Requip changed to 5mg. Health Concerns Section Related Observation LastModified by Organization Detai ls LastModified Time None Recorded Concern Status LastModified by Organization Details LastModified Time None Recorded Advance Directives Directive None Recorded Payers Insurance Date Sequence Insurance Name Policy Number Policy Rivera Covered Member ID Rivera Member ID Guarantor Name 07/07/2018 2 [place] Grayinda S Ranew [id number] Darinda S Ranew 05/18/2019 1 [employer] (MEDICARE REPLACEMENT/ ADVANTAGE - PPO) Darinda S Ranew [id number] Grayinda S Ranew 12/19/2019 1 [employer] (MEDICARE REPLACEMENT/ ADVANTAGE - PPO) [id number] Grayinda S Ranew [id number] Grayinda S Ranew Notes Date Note Type Note Provider Name and Address Organization Details Recorded Time 07/31/2019 text/html Due to COVID-19 national health emergency, social distancing guideline and governor Perez issued snf in place order the patient requested Telehealth visit which was performed today via Video and audio for the patient's safety, ongoing health care need and treatment. 64 year old came with upper, lower limb pain and numbness. Symptoms have been going on for months. The pain is dull, sharp, intermittent. Symptoms are intermittent, aggravates with exertion, walking, standing. Pain relieved with rest. bowel or bladder incontinence. Denies trauma. Dizziness has been going on for months. Since onset, symptoms have progressed. Dizziness is intermittent, moderate. Symptoms aggravates with standing, moving in certain position, relieved with lying down, associated with nausea. The patient denies fall, trauma, change in medicine. No syncope and seizure.RLS symptoms are better on requip. Monty Maharaj MD [address] [place], [address], [facility] - [facility] 07/31/2019 12:04:12 11/20/2019 text/html 64 year old came with upper, lower limb pain and numbness. Symptoms have been going on for months. The pain is dull, sharp, intermittent. Symptoms are intermittent, aggravates with exertion, walking, standing. Pain relieved with rest. bowel or bladder incontinence.RLS symptoms are better on requip.Dizziness has been going on for months. Dizziness is intermittent, moderate. Symptoms aggravates with standing, moving in certain position, relieved with lying down, associated with nausea. The patient denies fall, trauma, change in medicine. No syncope and seizure. Monty Maharaj MD [address] [place] [address], [address], [facility] - [facility] 11/20/2019 11:10:24 OBGyn Episode No OBEpisode recorded.
--- OUTSIDE RECORDS SUMMARY | 2024-10-23 14:47 | XMS_ITS | Patient Health Record ---
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 then SCS trial pending psych eval The patient continues with chronic pain requiring treatment to help restore function and improve quality of life. Risks of opioid therapy as well as interaction of opioids with alcohol, illicit drugs, muscle relaxers, and other sedative medications are reviewed briefly with patient again today. The patient has trialed all other reasonable treatment options and uses the medication to alleviate pain in order to remain active and rest with less pain. No clinically relevant medication side effects are noted. Last UDS and AR GRANT WRITER reviewed today. Patient is advised that best long-term goals include increased activity, core strengthening, proper weight management, coping strategies, avoidance of painful triggers, and targeted interventional therapy. We will see the patient for routine follow up in accordance with all clinic policies. We did remind patient today of current guidelines to decrease opioid when possible. We will continue to stress nonopioid treatment. 05/24/2024 Other cervical disc degeneration, unspecified cervical region (ICD-10 - M50.30) 06/05/2024 Other spondylosis with radiculopathy, cervical region (ICD-10 - M47.22) 06/22/2024 Chronic pain syndrome (ICD-10 - G89.4) I had a nice discussion with the patient today regarding her chronic pain complaints. She continues to await cervical spinal cord stimulator trial. We will check on this for her today. She had a rough time as the pharmacy messed something up with her medication last month but she did finally get it straightened out. She is following with a vascular surgeon due to a lot of swelling in her legs. She will keep us updated on that. She denies any other changes since we last seen her any untoward side effects of the medication. She will continue her medication at present level and return to clinic in 2 months to monitor for treatment effectiveness and compliance. 06/22/2024 Chronic pain syndrome (ICD-10 - G89.4) 08/24/2024 Chronic pain syndrome (ICD-10 - G89.4) I had a nice discussion with the patient today regarding her chronic pain complaints. She states she has been having some increased pain in her neck and shoulders lately. She states this has been going on for couple of days. Her last MRI was in January and she may want to discuss repeating another MRI. She states she has not been able to start her physical therapy as she has been too busy. Also discussed she is scheduled for her cervical spinal cord stimulator trial next week on the . After a long discussion of treatment options, the patient would like to go ahead and to proceed with a cervical spinal cord stimulator trial next week and see how that goes. If this does not help then she may want to look into things further. She is doing reasonably well on her current medication regimen so she will continue that at present level. She will return to clinic after procedure to monitor for treatment effectiveness and compliance. 08/24/2024 Other spondylosis with radiculopathy, cervical region (ICD-10 - M47.22) 01/31/2024 Arthrodesis status (ICD-10 - Z98.1) 01/31/2024 Cervical pain (neck) (ICD-10 - M54.2) 02/15/2024 Cervical radiculopathy (ICD-10 - M54.12) 02/15/2024 Cervical paraspinal muscle spasm (ICD-10 - M62.838) 03/30/2024 Chronic pain syndrome (ICD-10 - G89.4) I had a nice discussion with the patient today regarding her chronic pain complaints. She continues to have a lot of neck pain and is following with Dr. Serna. She states that she is scheduled for NCV/EMG soon and then is supposed to follow-up with Dr. Serna on April 17. She will keep us updated with all this. She had stent placement in her legs a couple of months ago. She reports she has been having a lot of lower extremity edema. I did advise her to get this looked into. Her feet and legs are very swollen today. One of her main complaint is she is experiencing severe anxiety lately and went to the ER due to anxiety. She states she was given Ativan in the ER. She is wanting to be able to take something for her anxiety. I did explain that she would need to talk to her PCP about something not in the benzodiazepine family. I did explain those types of medications in the benzodiazepine family can be a dangerous combination with her pain medication. She is doing well on her current medication regimen as far as her pain so we will continue that at present level and she will return to clinic in 1 month to monitor for treatment effectiveness and compliance. Note: She would like to see Dr. Cabello next time as she wants him to know how bad her anxiety has been lately. 03/30/2024 Other cervical disc degeneration, unspecified cervical region (ICD-10 - M50.30) 08/24/2024 Other spondylosis with radiculopathy, cervical region (ICD-10 - M47.22) 10/05/2024 Chronic pain syndrome (ICD-10 - G89.4) I had a nice discussion with the patient today regarding her chronic pain complaints. She continues with neck pain as well as radicular symptoms. She had to cancel her spinal cord stimulator due to being in the hospital in the ICU. She states she had a bleed in her esophagus. She also reports an esophageal stent. She states her heart rate dropped to 20 and she was taken to ICU. She reports she also continues to have these syncopal episodes. Sounds like they are doing a multitude of testing on her right now. She will keep us updated on everything. I did discuss we will hold off on the spinal cord stimulator until she gets her other health issues figured out. She is doing reasonably well on her current medication regimen so she will continue that at present level for now. She denies any other changes since we last seen her any untoward side effects the medication. I did discuss lifestyle modifications as well as a bowel regimen. She will return to clinic in 2 months to monitor for treatment effectiveness and compliance as well as for biannual appointment with Dr. Cabello. 10/05/2024 Other spondylosis with radiculopathy, cervical region (ICD-10 - M47.22) 10/05/2024 Other spondylosis with radiculopathy, cervical region (ICD-10 - M47.22) 08/24/2024 Myalgia of auxiliary muscles, head and neck (ICD-10 - M79.12) 02/15/2024 Arthrodesis status (ICD-10 - Z98.1) 03/30/2024 Other spondylosis with radiculopathy, cervical region (ICD-10 - M47.22) 01/31/2024 Degenerative disc disease, cervical (ICD-10 - M50.30) 06/22/2024 Other spondylosis with radiculopathy, cervical region (ICD-10 - M47.22) 05/04/2024 Degenerative disc disease, cervical (ICD-10 - M50.30) 06/22/2024 Other cervical disc degeneration, unspecified cervical region (ICD-10 - M50.30) 05/24/2024 Other spondylosis with radiculopathy, cervical region (ICD-10 - M47.22) 04/10/2024 Cervical radiculopathy (ICD-10 - M54.12) 04/26/2024 Other cervical disc degeneration, unspecified cervical region (ICD-10 - M50.30) 04/26/2024 Myalgia of auxiliary muscles, head and neck (ICD-10 - M79.12) 05/04/2024 Cervical radiculopathy (ICD-10 - M54.12) 05/24/2024 Myalgia of auxiliary muscles, head and neck (ICD-10 - M79.12) 06/22/2024 Other spondylosis with radiculopathy, cervical region (ICD-10 - M47.22) 08/24/2024 Unspecified abnormalities of gait and mobility (ICD-10 - R26.9) 01/31/2024 Facet arthropathy, cervical (ICD-10 - M46.92) 02/15/2024 Pain in right upper arm (ICD-10 - M79.621) 04/10/2024 Pain in left upper arm (ICD-10 - M79.622) 03/30/2024 Postlaminectomy syndrome, not elsewhere classified (ICD-10 - M96.1) 10/05/2024 Myalgia of auxiliary muscles, head and neck (ICD-10 - M79.12) 10/05/2024 Unspecified abnormalities of gait and mobility (ICD-10 - R26.9) 03/30/2024 Myalgia of auxiliary muscles, head and neck (ICD-10 - M79.12) 04/10/2024 Pain in right upper arm (ICD-10 - M79.621) 02/15/2024 Pain in left upper arm (ICD-10 - M79.622) 01/31/2024 Paraspinal muscle spasm (ICD-10 - M62.830) 06/22/2024 Myalgia of auxiliary muscles, head and neck (ICD-10 - M79.12) 08/24/2024 Postlaminectomy syndrome, not elsewhere classified (ICD-10 - M96.1) 05/24/2024 Postlaminectomy syndrome, not elsewhere classified (ICD-10 - M96.1) RECOMMEND SPINAL CORD STIMULATOR TRIAL A percutaneous spinal cord stimulator (SCS) trial is recommended for this patient who has failed all reasonable therapies, both operative and nonoperative, as noted in prior records. The patient has met all diagnostic criteria for consideration of this device, as above. We will schedule SCS trial after successful completion of a psychological evaluation by psychologist or psychiatrist. A thorough review of the indications and risks of spinal cord stimulator implantation has been discussed with the patient. If greater than 50-60% reduction in pain is achieved during the trial, a permanent implant will be considered. The trial period is five days as an outpatient. The procedure and risks were discussed with the patient including but not limited to infection, bleeding, neurological complications, side effects from medications, no change in pain, worsening of pain, or even . We also discussed conservative options, surgical options, and medical management with patient as well. The patient indicates understanding and wishes to proceed with the recommended treatment approach. The patient was given written information about the procedure and all questions were answered. 04/26/2024 Postlaminectomy syndrome, not elsewhere classified (ICD-10 - M96.1) 05/04/2024 Arthrodesis status (ICD-10 - Z98.1) 04/26/2024 Unspecified abnormalities of gait and mobility (ICD-10 - R26.9) 05/24/2024 Unspecified abnormalities of gait and mobility (ICD-10 - R26.9) 08/24/2024 Other cervical disc degeneration, unspecified cervical region (ICD-10 - M50.30) 06/22/2024 Postlaminectomy syndrome, not elsewhere classified (ICD-10 - M96.1) 02/15/2024 Loosening of hardware in spine (ICD-10 - T84.498A) 03/30/2024 Unspecified abnormalities of gait and mobility (ICD-10 - R26.9) 10/05/2024 Postlaminectomy syndrome, not elsewhere classified (ICD-10 - M96.1) 10/05/2024 Other cervical disc degeneration, unspecified cervical region (ICD-10 - M50.30) 03/30/2024 group home (current) use of opiate analgesic (ICD-10 - Z79.891) 06/22/2024 Unspecified abnormalities of gait and mobility (ICD-10 - R26.9) 08/24/2024 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 Risks of opioid therapy as well as interaction of opioids with alcohol, illicit drugs, muscle relaxers, and other sedative medications are reviewed briefly with patient again today. The patient has trialed all other reasonable treatment options and uses the medication to alleviate pain in order to remain active and rest with less pain. No clinically relevant medication side effects are noted. Last UDS and AR GRANT WRITER reviewed today. Patient is advised that best long-term goals include increased activity, core strengthening, proper weight management, coping strategies, avoidance of painful triggers, and targeted interventional therapy. We will see the patient for routine follow up in accordance with all clinic policies. We did remind patient today of current guidelines to decrease opioid when possible. We will continue to stress nonopioid treatment. RECOMMEND URINE TESTING TODAY Urine drug screening will be performed today to monitor compliance with opioid therapy or to serve as a baseline screen for a patient who may be a candidate for opioid therapy in the future, pending UDS results. We will monitor with in-office testing (rapid testing) today and review the results prior to dispensing prescription. All positive results will be sent for quantitative analysis to ensure accuracy and quantify amounts. Any expected positive results that return negative will also be sent for quantitative analysis. Any questionable read or any medication we cannot test for in the office confidently will be sent for quantitative analysis, as well. Patient has been made aware of this policy and agrees to abide by our urine testing policy. 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 We will monitor with in-office testing (rapid testing) today and review the results prior to dispensing prescription. All positive results will be sent for quantitative analysis to ensure accuracy and quantify amounts. Any expected positive results that return negative will also be sent for quantitative analysis. Any questionable read or any medication we cannot test for in the office confidently will be sent for quantitative analysis, as well. Patient has been made aware of this policy and agrees to abide by our urine testing policy. 10/05/2024 group home (current) use of opiate analgesic (ICD-10 - Z79.891) 01/31/2024 Other 63 minutes spent with over 50% spent in consultation and coordination of care. Patient with overall complicated surgical history with multiple cervical spine surgeries. Patient with primary complaint of neck pain radiating to her bilateral upper extremities. She has advanced imaging of MRI scheduled for later this week. We we will obviously need to review this before making any decisions related to treatment. In the interim patient states that she has sufficient medications at home as well as current order for physical therapy. We will also plan to obtain cervical spine x-ray prior to her next appointment. She will plan to follow-up in [place] as per her request in approximately 2 weeks, patient is in agreement with this plan. 02/15/2024 Other The patient's symptoms and clinical findings were reviewed. The has a history of extensive cervical surgery. She is having increased neck pain, bilateral upper extremity pain and paraspinal muscle spasms. The MRI of the cervical spine was reviewed and discussed with the patient. The screws at T1 and T2 appear to be loosening, otherwise the anterior and posterior fusion appears stable.The patient appears in obvious discomfort sitting in the exam room. I had a discussion with the patient concerning the surgery she's had. I explained the symptoms she is experiencing is not uncommon with a posterior surgery. The recovery is long and difficult due to the muscle distraction that takes place. I will order an EMG/NCV study of the bilateral upper extremities to assess the muscles and the nerves for additional information. She was encouraged not to roll her shoulder forward. I will write the patient a prescription today for a bilateral clavicle brace to assist in keeping her shoulder back. I recommended heat twice a day. I will see her back for a follow-up after the nerve conductions study is completed. I will make further recommendations at that time. The patient was reassured that if there is something I can help with, we will discuss on her follow up. She is in agreement. Of note, the patient says she is on blood thinners per Dr. Abhishek Canela, Vacular Surgeon in [place] after stent placement in the lower extremities. ROS reviewed I Alissa Mcconnell LPN am scribing for, and in the presence of Rajesh Serna MD. I, Rajesh Serna, personally performed the services described in this documentation, as scribed by Alissa Mcconnell LPN in my presence, and it is both accurate and complete. 04/26/2024 Other I, Michael Payne, am scribing for Dr. Mode Cabello. I, Dr. Mode Cabello, personally performed the services described in this documentation, as scribed by Michael Payne, and it is both accurate and complete. 05/04/2024 Other The patient continues with increased posterior neck pain and muscle spasms. The cervical imaging shows stable anterior and posterior fusions without hardware complications. I explained to the patient that the symptoms she is having are common with the posterior fusion. The pain she is having is from the muscle distraction. I recommended the patient discuss with Dr. Cabello the possibility of getting back on Gabapentin. She says he stopped the medication but wasn't sure why. We discussed treatment option. The patient has two options in my opinion. I can go back in with surgery to re-approximate the muscles and have her wear the clavicle brace for 8 weeks after to try and prevent further muscle distraction. The second option is for a cervical spinal cord stimulator. I recommended a referral back to the pain clinic for an evaluation for a cervical SCS. I told the patient that I believe she would be best served with a stimulator verses surgery. The process for the evaluation, trial and placement of the SCS was explained. Questions were asked and answered to the patient's satisfaction. SHe states her understanding and is in agreement to the referral to the pain clinic for the cervical spinal cord stimulator. If a stimulator proves not to be an option for her, she will call and return for another discussion. ROS reviewed I Alissa Mcconnell LPN am scribing for, and in the presence of Rajesh Serna MD. I, Rajesh Serna, personally performed the services described in this documentation, as scribed by Alissa Mcconnell LPN in my presence, and it is both accurate and complete. 05/24/2024 Other I, Michael Payne, am scribing for Dr. Mode Cabello. I, Dr. Mode Cabello, personally performed the services described in this documentation, as scribed by Michael Payne, and it is both accurate and complete. Plan Of Treatment Pending Test Test Name Order Date Cervical Spine AP/Lat 2-3 [id number] zzzCT Outside CD 06/20/2024 Schedule Confirmation 03/06/2024 Schedule Confirmation 03/06/2024 Schedule Confirmation 04/25/2024 Schedule Confirmation 04/25/2024 Future Test Test Name Order Date Implant Spinal Cord Stimulator Trial - 6 [id number] 05/25/2024 Next Appt Details Provider Name:Mode Cabello, 12/06/2024 09:40:00 AM, [address] [place], [address], Insurance Providers Payer Name Payer Address Payer Phone Subscriber Number Group Number Insured Name Patient Relationship to Insured Coverage Start Date Coverage End Date [place] [address] [place] [id number] BARRY VAN Self - patient is the insured [employer] [place] [address] [place] [id number] [phone] [id number] BARRY VAN Self - patient is the [place] [address] [address] [place] [address] [phone] [id number] BARRY VAN Self - patient is the insured Medical (General) History Surgical History Surgery Date(Month/Year) appendectomy Breast biopsy section Hernia surgery Hysterectomy Jaw surgeries left ankle surgery Neck surgeries
--- OUTSIDE RECORDS SUMMARY | 2024-10-23 14:47 | XMS_ITS | Data Portability ---
Author Organization [facility], *[id number] Address [address] [place] [address] Care Team Providers Care Packaging Designer Name Role Phone GARTH WARD Referring Provider SHARON PATEL Primary Care Provider Assessment Encounter Date Assessment Date Assessment LastModified by Organization Details LastModified Time 08/18/2018 08/18/2018 Radiologic evaluation shows retrolisthesis of L2-3 and L3-4 as well as multilevel degenerative changes I will have the patient increase her gabapentin to 300 mg 3 times daily and bring her MRIs from [facility]. She will return for follow-up in [address] Melgoza after she obtains her imaging and have advised her to call with worsening symptoms. [email or web address] Not available 08/18/2018 16:23:17 02/06/2019 02/06/2019 Radiologic evaluation: MRI of the lumbar spine performed at [facility] shows severe degenerative disc disease at L to 3 with a grade 1 spondylolisthesis . There is mild to moderate bilateral foraminal narrowing at this level. In regards to the patient's significant degenerative changes in the spine, I have discussed facet injections with pain management physician and the patient has shown interest in this. In regards to her radiculopathy, I do not see on MRI with the cause of this may be done like to go ahead and order a bilateral lower extremity EMG. I will go ahead and have her discontinue the Flexeril and prescribe tizanidine. She will follow-up with Dr. Melgoza after the EMG is complete. [email or web address] Not available 02/06/2019 16:31:47 Plan of Treatment Reminders Order Date Submit Date Provider Last Modified By Organization Details Last Modified Time Details Appointments None recorded. Lab None recorded. Referral None recorded. Procedures None recorded. Surgeries None recorded. Imaging XR, lumbosacra l spine, 4 or more view 2018 019 [email or web address] [facility], [address] [place], [address], 9 16:20:48 Medication Orders tizanidine 4 mg tablet 2018 INTERFACE [facility], [address] [place] [address], [address], 16:34:10 gabapentin 300 mg capsule 2018 019 INTERFACE [facility], [address] [place] [address], [address], 9 16:31:29 Patient TargetsNo targets recorded. Patient InstructionsNo instructions recorded. Reason for Referral None Reported. Results Created Date Observation Date Name Description Value Unit Range Abnormal Flag Note LastModifiedBy Organization Detail LastModifiedTime 08/19/19 19 08/18/2018 XR, lumbo sacra l spine , 4 or more view No observ ation record ed. INTERFACE [facility] [address] [place], [address], 08/18/2018 15:59:41 02/09/20 19 06/04/2018 MRI, lumba r spine , w/o contr ast No observ ation record ed. [email or web address] Not Available 2018 16:43:44 06/06/19 20 elect romyo gram + nerve condu ction study No observ ation record ed. [email or web address] [facility] [address] [place], [address], 06/06/2019 16:26:41 Result Notes None recorded. Problems Name Problem SNOMED Code Status Onset Date Resolution Date Notes Provider Name and Address Organization Details Recorded Time Localized, primary osteoarthriti s of the ankle and/or foot 751435106 Active 2014 Not Available [facility] 8 12:40:29 Tibial nerve lesion 030477581 Active 2014 Not Available [facility] 8 12:40:29 Plantar nerve lesion 425166967 Active 2014 Not Available [facility] 8 02:16:31 Primary osteoarthriti s of ankle 060136169 Active 2014 Not Available [facility] 8 02:16:31 Problem Notes None recorded. Procedures Surgical History Date Name Laterality Status Provider Name and Address Organization Details Recorded Time General Surgery completed SHIV BLANC [address], [place], [address], [facility] 08/18/2018 15:48:03 Ankle/Foot Surgery completed SHIV WATSON [address], [place], [address], [facility] 08/18/2018 15:48:03 Appendectomy completed SHIV WATSON [address], [place], [address], [facility] 08/18/2018 15:48:04 Gallbladder Surgery completed SHIV WATSON [address], [place], [address], [facility] 08/18/2018 15:48:04 Fracture Surgery completed SHIV BIRD [address], [place], [address], [facility] 08/18/2018 15:48:04 Imaging Results None recorded. Procedure Notes None recorded. Medical Equipment None Reported. Allergies Allergen ID Allergen Name Allergen Category Reaction Reaction Severity Criticality Documentation Date Start Date Code Code System Note Provider Name and Address Organization Details Recorded Time [id number] amitripty line hydrochlo ride medicatio n Not available Not available Not available 05/28/2017201416 8 RxNorm Sever ity: Unkno wn; Not Available [facility] 8 03:09:39 025901 Benadryl medicatio n Not available Not available Not available 05/28/2017201445 7 RxNorm Sever ity: Unkno wn; Not Available [facility] 8 03:09:39 086638 Celebrex medicatio n Not available Not available Not available 05/28/20172014 59907 7 RxNorm Sever ity: Unkno wn; Not Available [facility] 8 03:09:39 362883 Imitrex medicatio n Not available Not available Not available 05/28/20172014 25911 3 RxNorm Sever ity: Unkno wn; Not Available [facility] 8 03:09:39 252792 amitripty line / perphenaz ine medicatio n Not available Not available Not available 10/26/20172014 76951 60 RxNorm Sever ity: Unkno wn; Not Available [facility] 8 11:17:13 Medications Name Sig Start Date Stop Date Status Note LastModified by Organization Details LastModified Time cyclobenzaprine 10 mg tablet active Not Available Not Available Not Available amoxicillin 500 mg capsule active Not Available Not Available N ot Available furosemide 40 mg tablet Take 1 tablet every day by oral route. active Not Available Not Available No t Available prednisone 10 mg tablet active Not Available Not Available No t Available gabapentin 600 mg tablet active Not Available Not Available No t Available alprazolam 1 mg tablet active Not Available Not Available Not Available tizanidine 4 mg tablet Take 1 tablet(s ) EVERY 8 HOURS by oral route prn spasm active Not Available Not Available No t Available hydrocodone 5 mg-acetaminophe n 325 mg tablet active Not Available Not Availa ble Not Available ondansetron HCl 4 mg tablet active Not Available Not Available Not Available prednisone 20 mg tablet active Not Available Not Available No t Available ropinirole 3 mg tablet Take 1 tablet 3 times a day by oral route. active Not Available Not Available No t Available prednisone 5 mg tablet Take 1 tablet every day by oral route. active Not Available Not Available No t Available Zocor 10 mg tablet Take 1 tablet every day by oral route. active Not Available Not Available No t Available potassium chloride ER 10 mEq tablet,extended release active Not Available Not Available Not Available acetaminophen 300 mg-codeine 30 mg tablet active Not Available Not Available Not Available divalproex 500 mg tablet,delayed release active Not Available Not Available Not Available peg-electrolyte solution 420 gram oral solution active Not Available Not Available Not Available omeprazole 40 mg capsule,delayed release active Not Available Not Available Not Available tramadol 50 mg tablet active Not Available Not Available Not Available spironolactone 25 mg tablet active Not Available Not Available Not Available oxycodone-aceta minophen 5 mg-325 mg tablet active Not Available Not Available Not Available alprazolam 0.5 mg tablet active Not Available Not Available No t Available oxycodone-aceta minophen 10 mg-325 mg tablet active Not Available Not Available Not Available dicyclomine 20 mg tablet active Not Available Not Available No t Available cephalexin 500 mg capsule active Not Available Not Available N ot Available pantoprazole 40 mg tablet,delayed release active Not Available Not Available Not Available simvastatin 20 mg tablet active Not Available Not Available No t Available promethazine 25 mg tablet active Not Available Not Available No t Available gabapentin 300 mg capsule Take 1 capsule 3 times a day by oral route as directed . active Not Available Not Available No t Available folic acid 1 mg tablet Take 1 tablet every day by oral route. active Not Available Not Available No t Available BD Tuberculin Syringe 1 mL 25 gauge x 5/8 active Not Available Not Available Not Available methylprednisol one 4 mg tablets in a dose pack active Not Available Not Available No t Available naproxen 500 mg tablet active Not Available Not Available Not Available levothyroxine 112 mcg tablet Take 1 tablet every day by oral route. active Not Available Not Available No t Available methotrexate sodium (PF) 25 mg/mL injection solution active Not Available Not Available Not Available topiramate 50 mg tablet active Not Available Not Available No t Available nitrofurantoin monohydrate/mac rocrystals 100 mg capsule active Not Available Not Available N ot Available methotrexate active Not Available Not Available Not Available levetiracetam 1,000 mg tablet active Not Available Not Availa ble Not Available ferrous sulfate 324 mg (65 mg iron) tablet,delayed release active Not Available Not Available Not Available Dexilant 60 mg capsule, delayed release Take 1 capsule every day by oral route for 56 days. active Not Available Not Available No t Available Vitals None Recorded Social History Question Answer Notes LastModified by Organizat ion Details LastModified Time Tobacco Smoking Status Former Smoker [facility] 08/18/2018 15:08:33 How Much Tobacco Do You Chew? None [email or web address] Information not available 08/18/2018 Which Of Your Hands Is Dominant? Right [email or web address] Information not available 08/18/2018 Marital Status [email or web address] Informatio n not available 08/18/2018 What Was The Date Of Your Most Recent Tobacco Screening? 08/18/2018 Information not available 11/03/2018 Has Tobacco Cessation Counseling Been Provided? No [email or web address] Information not available 08/18/2018 Sex: Unknown Functional Status Question Answer Note LastModified by Organization D etails LastModified Time What is your level of alcohol consumption? None [email or web address] Information not available 08/18/2018 Are you able to walk? NODEP [email or web address] Information not available 08/18/2018 Are you able to care for yourself? Yes [email or web address] Information n ot available 08/18/2018 Mental Status None recorded. Family History Relationship Description Onset Age of this Age Resolved Age Notes LastModified by Organization Details LastModified Time Mother Disorder of thyroid gland [email or web address] Not available 08/18 15:47:01 Mother Arthritis [email or web address] Not availa ble 08/18/2018 15:47:01 Mother Back problem Not [email or web address] ilable 08/18/2018 15:47:01 Medical History Condition Response Coronary Artery Disease N Anxiety/Depression N sports induced asthma N Thyroid Disease N Blood Transfusion N COPD N Anemia N Anesthesia Complications N Headaches/Migraines N Diabetes N Bleeding Disorder N Arthritis N Head Injury/Concussion N Blood Clot N AIDS/HIV N Cancer N Stroke N High Cholesterol/Hyperlipidemia N Gout/Fibromyalgia N Asthma N Peripheral Vascular Disease N Epilepsy/Seizures Y Polio N Heart Attack ([place])/Heart Arrhythmia/Heart Disease N Liver Disease N Rheumatoid Arthritis N Pulmonary Embolism N Hypertension N Osteoporosis N Kidney Disease N Gynecological HistoryNo gynecological history recorded. Obstetrics History GPAL:G 0 P 0 0 0 0 Past Encounters Encounter ID Performer Location Encounter Start Date Encounter Closed Date Diagnosis/Indication Diagnosis SNOMED-CT Code Diagnosis ICD10 Code Diagnosis Note [id number] MD MERISSA WARREN [facility] [address] [place] [address] 08/18/2018 15:10:42 08/18/2018 16:20:48 Low back pain 162648639 M54.5 Lumbar radiculopathy 128 264711 M54.16 [id number] MD MERISSA WARREN [facility] [address] [address] 02/06/2019 14:42:18 02/06/2019 17:13:16 Lumbar radiculopathy 963584104 M54.16 Health Concerns Section Related Observation LastModified by Organization Detai ls LastModified Time None Recorded Concern Status LastModified by Organization Details LastModified Time None Recorded Advance Directives Directive None Recorded Payers Insurance Date Sequence Insurance Name Policy Number Policy Rivera Covered Member ID Rivera Member ID Guarantor Name 08/21/2021 [employer] - GOLD [employer]US (MEDICARE REPLACEMENT/A DVANTAGE - HMO) Darinda S Ranew [id number] Darinda S Ranew 08/21/2021 [employer] (MEDICARE REPLACEMENT/A DVANTAGE - PPO) Darinda S Ranew [id number] Darinda S Ranew 08/21/2021 1 [place] Darinda S Ranew [id number] Darinda S Ranew 08/21/2021 1 [place] Darinda S Ranew [id number] Darinda S Ranew 08/21/2021 1 [employer] (PPO) Darinda S Ranew [id number] Darinda S Ranew Notes Date Note Type Note Provider Name and Address Organization Details Recorded Time 08/18/2018 text/html The patient presents with a 1 year history of pain located in her back that radiates down bilaterally into the posterior and anterior thighs and legs. She states is severe in nature and worse with prolonged standing or walking. She is tried gabapentin 300 mg nightly without relief. She is seen Dr. Russell who suggested a surgery, but she declined SHIV WATSON [address] [place], [address], [facility] 08/18/2018 16:30:13 02/06/2019 text/html The patient returns for follow-up for her lower back pain and left S1 radiculopathy. The patient's has not been able to follow-up due to a recent 1 month hospital stay for an abdominal issue. She follows up today with the MRI of the lumbar spine. SHIV WATSON [address] [place], [address], [facility] 02/06/2019 16:32:20 OBGyn Episode No OBEpisode recorded.
--- OUTSIDE RECORDS SUMMARY | 2024-10-23 14:47 | XMS_ITS | Continuity of Care Document ---
Author Organization [employer] ([facility]) Address [address] [place] [address] Insurance Providers Payer Plan Claims Address Claims Phone Policy Number Group Number Relation Employer Guarantor Name Guarantor Guarantor Address Guarantor Phone Medic are Osmel knowles [address], [place] [address] tel:[phone] Self Tosha Perry [address] [place] [address] [facility] SUPPL EMENT [address] [place] [address] tel:[phone] Self Tosha Perry [address] [place] [address] Problems Condition ICD9 code ICD10 code SNOMED code Start Date End Date S tatus Spinal stenosis, lumbar region with neurogenic claudication M48.062 09/30/2023 Active Lesion of ulnar nerve, unspecified upper limb G56.20 09/30/2023 Ac tive Rheumatoid arthritis with rheumatoid factor of multiple sites without organ or systems involvement M05.79 09/30/2023 Active Muscle weakness (generalized) M62.81 10/01/2023 Active prison (current) use of antimetabolite agent Z79.631 09/30/2023 A ctive Fusion of spine, cervical region M43.22 09/30/2023 Active Iron deficiency anemia, unspecified D50.9 09/30/2023 Active Urinary tract infection, site not specified N39.0 10/13/2023 Active Unspecified Escherichia coli [E. coli] as the cause of diseases classified elsewhere B96.20 10/13/2023 Acti ve Hyperlipidemia, unspecified E78.5 09/30/2023 Active Chronic kidney disease, stage 3 unspecified N18.30 09/30/2023 Activ e Hypothyroidism, unspecified E03.9 09/30/2023 Active Restless legs syndrome G25.81 09/30/2023 Active Anxiety disorder, unspecified F41.9 09/30/2023 Active Acute embolism and thrombosis of unspecified deep veins of right lower extremity I82.401 09/30/2023 Active Presence of other vascular implants and grafts Z95.828 09/30/2023 Active Prediabetes R73.03 09/30/2023 Active Drug induced constipation K59.03 09/30/2023 Active Adverse effect of other opioids, subsequent encounter T40.2X5D 09/30/2023 Active Allergic rhinitis, unspecified J30.9 09/30/2023 Active prison (current) use of inhaled steroids Z79.51 09/30/2023 Activ e Gastro-esophageal reflux disease with esophagitis, without bleeding K21.00 09/30/2023 Active Nausea with vomiting, unspecified R11.2 10/13/2023 Active Solitary pulmonary nodule R91.1 09/30/2023 Active Results No Results Allergies, adverse reactions, alerts Substance Reaction Date Status Type acetaminophen 10/02/2023 Non Drug sulfasalazine 05/17/2023 Non Drug Morphine Sulfate (MS) 09/30/2023 Non Drug amitriptyline 05/17/2023 Non Drug ibuprofen 09/30/2023 Non Drug prochlorperazine 05/17/2023 Non Drug Immunizations Vaccine Route Date Status COVID-19 Vaccine Unassigned Route of Administration Completed Influenza Vaccine Unassigned Route of Administration 0 05/18/2023 Refused RSV Vaccine Unassigned Route of Administration 2023 Completed Medications Medication Instructions Route Dosage Frequency Start Date Stop Date Indications Status acetaminophen 325 mg tablet (acetaminophen ) 2, oral, Every 6 Hours - PRN, Clinical Indication: Pain oral 1.0 6.0 h 10/01 Active albuterol sulfate 90 mcg/actuation HFA aerosol inhaler (albuterol sulfate) 1 puff, inhalation, Every 6 Hours - PRN, Clinical Indication: Dyspnea inhalation 1.0 6.0 h 10/01 Active alprazolam 0.5 mg tablet (alprazolam) 1, oral, Every 4 Hours - PRN, Clinical Indication: Anxiety oral 1.0 4.0 h 10/19 Active alprazolam 0.5 mg tablet (alprazolam) 1, oral, As Needed, Take 1 tab PO Q4 hours PRN Clinical Indication: Anxiety oral 1.0 1.0 d 10/19 Active baclofen 10 mg tablet (baclofen) 1, oral, Every 6 Hours - PRN, Clinical Indication: Muscle spasm oral 1.0 6.0 h 10/19 Active Calmoseptine (menthol-zinc oxide) 0.44-20.6 % ointment (Calmoseptine (menthol-zinc oxide)) 1 gm, topical, Twice A Day, Use baby oil to remove old calmoseptine, apply new BID to sacrum. topical 1.0 12.0 h 10/19 Active cefdinir 300 mg capsule (cefdinir) 1, oral, Twice A Day, Take one tablet PO BID x 5 days oral 1.0 12.0 h 10/12 Active Colace (docusate sodium) 100 mg capsule (Colace (docusate sodium)) 100mg, oral, Once - One Time, Colace 100mg give 2 caps x 1 now oral 1.0 10/19 Active Dulcolax (bisacodyl) (bisacodyl) 5 mg tablet,delayed release (DR/EC) (Dulcolax (bisacodyl) (bisacodyl)) 2 tabs/10mg, oral, Once A Day - PRN, Give if no results from MOM oral 1.0 1.0 d 10/19 Active Dulcolax (bisacodyl) (bisacodyl) 10 mg suppository (Dulcolax (bisacodyl) (bisacodyl)) 1 suppository, rectal, Once A Day - PRN, Give rectally if can't take p/o, if no results from MOM rectal 1.0 1.0 d 10/19 Active Fleet Enema (sodium phosphates) 19-7 gram/118 mL enema (Fleet Enema (sodium phosphates)) 1 application, rectal, Once A Day - PRN, Give fleets if no results from MOM and Dulcolax rectal 1.0 1.0 d 10/19 Active fluticasone propionate 50 mcg/actuation spray,suspensi on (fluticasone propionate) 1 spray, nasal, Twice A Day, 1 spray each nostril nasal 1.0 12.0 h 10/19 Active folic acid 1 mg tablet (folic acid) 1, oral, Once A Day oral 1.0 1.0 d 10/19 Active gabapentin 300 mg capsule (gabapentin) 1, oral, Three Times A Day oral 1.0 8.0 h 10/19 Active hydrocodone /apap 10/325 10/325mg tablet (hydrocodone /apap 10/325) 10/325mg, oral, Once - One Time oral 1.0 10/19 Active lactulose 10 gram/15 mL solution (lactulose) 30mL, oral, Once A Day, Take 30mL daily oral 1.0 1.0 d 10/19 Active Lasix (furosemide) 40 mg tablet (Lasix (furosemide)) 1, oral, Once A Day oral 1.0 1.0 d 10/19 Active levothyroxine 112 mcg capsule (levothyroxine ) 1, oral, Once A Day oral 1.0 1.0 d 10/19 Active Macrobid (nitrofurantoi n monohyd/m-abhay t) 100 mg capsule (Macrobid (nitrofurantoi n monohyd/m-abhay t)) 1, oral, Twice A Day oral 1.0 12.0 h 10/12 Active Macrobid (nitrofurantoi n monohyd/m-abhay t) 100 mg capsule (Macrobid (nitrofurantoi n monohyd/m-abhay t)) 1, oral, Twice A Day oral 1.0 12.0 h 10/19 Active methotrexate sodium 25 mg/mL solution (methotrexate sodium) 20mg, injection, Once A Day on Mon 1.0 1.0 d 10/19 Active Milk of Magnesia (magnesium hydroxide) 400 mg/5 mL suspension (Milk of Magnesia (magnesium hydroxide)) 30 ml, oral, Every 72 Hours - PRN, if no BM in 3 daysDO NOT GIVE TO RENAL PATIENTS--GO TO DULCOLAX ORDERS oral 1.0 72.0 h 10/19 Active omeprazole 40 mg capsule,delaye d release(DR/EC) (omeprazole) 1, oral, Twice A Day oral 1.0 12.0 h 10/19 Active ondansetron 8 mg tablet,disinte grating (ondansetron) 1, oral, Every 8 Hours - PRN, Clinical Indication: N/V oral 1.0 8.0 h 10/02 Active ondansetron 8 mg tablet,disinte grating (ondansetron) 1, oral, Every 8 Hours - PRN, Clinical Indication: N/V oral 1.0 8.0 h 10/19 Active ondansetron HCl 4 mg tablet (ondansetron HCl) 1 tab, oral, Once A Day, Take 1 tab PO daily for N/V oral 1.0 1.0 d 10/19 Active oxycodone 5 mg tablet (oxycodone) 1, oral, Every 4 Hours - PRN, Clinical Indication: Pain oral 1.0 4.0 h 09/30 Active oxycodone 5 mg tablet (oxycodone) 1-2, oral, As Needed, Take 1-2 tabs Q4 hours for moderate/ney re pain. oral 1.0 1.0 d 10/19 Active oxycodone-acet aminophen 5-325 mg tablet (oxycodone-viral taminophen) 1-2, oral, As Needed, 1-2 TABS Q4 HRS PRN. ONLY UTILIZE IF OUT OF OXY IR. USE CAUTIOUS WITH TYLENOL USAGE oral 1.0 1.0 d 10/19 Active polyethylene glycol 3350 17 gram/dose powder (polyethylene glycol 3350) 17 gram, oral, Once A Day, 1-2 scoops daily for the next 3 months to keep stools loose oral 1.0 1.0 d 10/19 Active promethazine 12.5 mg tablet (promethazine) 1, oral, Twice A Day - PRN, Clinical Indication N/V oral 1.0 12.0 h 10/19 Active promethazine 25 mg/mL solution (promethazine) 1 inj, injection, Three Times A Day - PRN, Clinical Indication: Nausea/vomiti ng 1.0 8.0 h 10/14 Active promethazine 25 mg/mL solution (promethazine) 1 ml, injection, Three Times A Day - PRN, Clinical Indication: Nausea/vomiti ng 1.0 8.0 h 10/19 Active ropinirole 5 mg tablet (ropinirole) 1, oral, Three Times A Day oral 1.0 8.0 h 10/19 Active sucralfate 1 gram tablet (sucralfate) 1, oral, Before Meals and At Bedtime oral 1.0 10/19 Active Tubersol (tuberculin ppd) 5 tub. unit /0.1 mL solution (Tubersol (tuberculin ppd)) 0.1ml, intradermal, Once - One Time, Administer the morning after admission intradermal 1.0 10/19 Active Tubersol (tuberculin ppd) 5 tub. unit /0.1 mL solution (Tubersol (tuberculin ppd)) 0.1ml, intradermal, Once - One Time, Administer on the day shift intradermal 1.0 10/19 Active Vital Signs Date Vital Result Comment 10/01/2023 02:08 PM Body Weight (08833-7) 144 [lb_av] Body Mass Index (92202-3) 23.96 kg/m2 10/05/2023 03:39 PM Body Height (8302-2) 65 [in_us] 10/06/2023 11:59 AM Body Weight (31701-0) 134 [lb_av] Body Mass Index (51416-3) 22.3 kg/m2 10/16/2023 01:13 AM Temperature (8310-5) 97.8 [degF] 10/19/2023 02:55 PM Temperature (8310-5) 97.7 [degF] Oxygen Saturation (41585-9) 96 % Respiratory Rate (9279-1) 19 /min Heart Rate (8867-4) 77 /min Blood Pressure Systolic (8480-6) 123 mm[Hg] Blood Pressure Diastolic (8462-4) 61 mm[Hg] 10/20/2023 07:12 AM Temperature (8310-5) 97 [degF] Oxygen Saturation (72663-8) 96 % Respiratory Rate (9279-1) 15 /min Heart Rate (8867-4) 79 /min Blood Pressure Systolic (8480-6) 124 mm[Hg] Blood Pressure Diastolic (8462-4) 68 mm[Hg] 10/16/2023 09:16 AM Temperature (8310-5) 99 [degF] Oxygen Saturation (78920-0) 98 % Respiratory Rate (9279-1) 18 /min Heart Rate (8867-4) 72 /min Blood Pressure Systolic (8480-6) 144 mm[Hg] Blood Pressure Diastolic (8462-4) 79 mm[Hg] 10/11/2023 03:07 PM Body Weight (80149-4) 135.8 [lb_av ] Body Mass Index (37751-5) 22.6 kg/m2 10/18/2023 08:35 PM Temperature (8310-5) 97.9 [degF] Oxygen Saturation (58481-6) 91 % Respiratory Rate (9279-1) 14 /min Heart Rate (8867-4) 71 /min Blood Pressure Systolic (8480-6) 118 mm[Hg] Blood Pressure Diastolic (8462-4) 64 mm[Hg] 10/18/2023 09:52 AM Temperature (8310-5) 98.8 [degF] Oxygen Saturation (32146-0) 93 % Respiratory Rate (9279-1) 17 /min Heart Rate (8867-4) 75 /min Blood Pressure Systolic (8480-6) 143 mm[Hg] Blood Pressure Diastolic (8462-4) 60 mm[Hg] 10/17/2023 09:22 AM Temperature (8310-5) 97.4 [degF] Oxygen Saturation (27177-7) 96 % Respiratory Rate (9279-1) 16 /min Heart Rate (8867-4) 60 /min Blood Pressure Systolic (8480-6) 137 mm[Hg] Blood Pressure Diastolic (8462-4) 68 mm[Hg] 10/17/2023 09:10 PM Temperature (8310-5) 99.3 [degF] Oxygen Saturation (33940-9) 97 % Respiratory Rate (9279-1) 21 /min Heart Rate (8867-4) 96 /min Blood Pressure Systolic (8480-6) 142 mm[Hg] Blood Pressure Diastolic (8462-4) 64 mm[Hg] 10/19/2023 08:17 PM Temperature (8310-5) 97.9 [degF] Oxygen Saturation (80574-5) 99 % Respiratory Rate (9279-1) 19 /min Heart Rate (8867-4) 84 /min Blood Pressure Systolic (8480-6) 140 mm[Hg] Blood Pressure Diastolic (8462-4) 75 mm[Hg] 10/13/2023 01:21 PM Body Weight (11267-2) 137 [lb_av] Body Mass Index (49008-0) 22.8 kg/m2 10/03/2023 01:26 PM Body Weight (76675-7) 136.8 [lb_av ] Body Mass Index (24482-2) 22.76 kg/m2 10/02/2023 01:03 PM Body Weight (14018-0) 142.2 [lb_av ] Body Mass Index (96896-7) 23.66 kg/m2 10/15/2023 11:03 PM Oxygen Saturation (24690-4) 97 % Respiratory Rate (9279-1) 16 /min Heart Rate (8867-4) 74 /min Blood Pressure Systolic (8480-6) 99 mm[Hg] Blood Pressure Diastolic (8462-4) 43 mm[Hg] 10/16/2023 10:36 PM Temperature (8310-5) 98.2 [degF] Oxygen Saturation (20369-9) 96 % Respiratory Rate (9279-1) 17 /min Heart Rate (8867-4) 67 /min Blood Pressure Systolic (8480-6) 115 mm[Hg] Blood Pressure Diastolic (8462-4) 65 mm[Hg] 09/30/2023 04:38 PM Body Weight (07417-2) 135.6 [lb_av ] Body Mass Index (22524-5) 22.56 kg/m2 Social History No smoking Hx information available Encounters Type CPT Code Date Location Provider Indication s encounter report 09/30/2023 03:4 3 PM - 10/20/2023 09:46 AM SRIRAM SOLIS MD 02 Advance Directives Directive Description Verification Date Supporting Document(s) Other Directive
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
--- OUTSIDE RECORDS SUMMARY | 2024-10-23 14:48 | XMS_ITS | Data Portability ---
Author Organization AL Yonis Thorne [facility], Job, [facility] Address [address] [facility] [address] [place] [address] Care Team Providers Care Bracelet Former Name Role Phone BOO GARCIA Primary Care Provider Unavailabl e Assessment No assessment recorded. Plan of Treatment Reminders Order Date Submit Date Provider Last Modified By Organization Details Last Modified Time Details Appointments HOSPITAL F/U 20 2024 10:00A Anny GARCIA PA-C Not available Not available Not available Lab BMP, serum or plasma 2024 025 [email or web address] [facility], [address] [facility] [address], [address], 06/08/2024 07:16:43 Referral cardiolog ist referral 2024 025 [place] [address] [facility], [address] [facility] [address], [address], 08/06/2024 16:58:39 physical therapist referral 2024 025 [facility], [address], [address], 07/18/2024 16:12:28 Procedures None recorded. Surgeries None recorded. Imaging XR, abdomen - KUB [address] ([facility]), [address] [place], [address], 05/25/2024 08:57:21 Medication Orders albuterol sulfate HFA 90 mcg/actua tion aerosol inhaler 2024 [facility][id number], [address], [place], [place], [id number], 07/24/2024 12:04:49 prednison e 20 mg tablet 2024 025 [facility] #[id number], [address], [place], [place], [id number], 08/10/2024 17:54:17 doxycycli ne hyclate 100 mg capsule 2024 025 [facility] #[id number], [address], [place], [place], [id number], 08/10/2024 17:54:06 ropinirol e 3 mg tablet [address] [place] [address] [facility] #99249, [address], [place], [place], [id number], 06/30/2024 14:07:29 prednison e 20 mg tablet [address] [place] [address] [facility] #55896, [address], [place], [place], [id number], 08/10/2024 17:54:06 furosemid e 80 mg tablet 2024 025 [facility] #[id number], [address], [facility], [place], [address], 05/24/2024 15:46:09 potassium chloride ER 20 mEq tablet,ex tended release 2024 025 [facility] #[id number], [address], [facility], [place], [address], 05/24/2024 15:46:10 ramelteon 8 mg tablet 2024 025 [id number], [address] [facility] [address], [address], 05/24/2024 15:46:10 ropinirol e 5 mg tablet 2024 025 [id number], [address] [facility] [address], [address], 05/24/2024 15:46:10 betametha sone valerate 0.1 % topical cream 2024 025 [id number], [address], [facility], [place], [address], 05/24/2024 15:46:10 Patient TargetsNo targets recorded. Patient InstructionsNo instructions recorded. 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 [email or web address] [facility] (Scheduling Orders) [address] [place], [address], 05/12/2024 16:39:58 05/25/1905/24/2024 XR, abdom en No observ ation record ed. [email or web address] [facility] [address] [place], [address], 05/25/2024 17:14:47 Result Notes None recorded. Problems Name Problem SNOMED Code Status Onset Date Resolution Date Notes Provider Name and Address Organization Details Recorded Time Hand pain 77441876 Completed 202205/14/2024 NICOLE CRANE null, [facility] 5 07:55:21 Hand pain 72362235 Completed 202205/14/2024 NICOLE CRANE null, [facility] 5 07:55:15 Low back pain 347902035 Completed 202305/14/2024 NICOLE CRANE null, [facility] 5 18:20:21 Chronic pain 59478419 Active 2023 NICOLE gustafson, [facility] 5 07:54:43 Deep venous thrombosi s of lower extremity 669337896 Completed 202305/14/2024 at [facility] non occlusi ve. IVC placed due to no able to take blood thinner s. NICOLE gustafson, [facility] 5 07:54:08 Hospital inpatient stay within past 30 days [id number] 06 Completed 202305/14/2024 NICOLE gustafson, [facility] 5 07:55:38 History of cervical spine fusion 68681572739 01 Completed 202305/14/2024 NICOLE CRANE null, [facility] 5 07:55:29 Hypothyro idism 83874278 Active 2023 NICOLE gustafson, [facility] 5 07:55:43 Depressiv e disorder 20708010 Active 2023 NICOLE gustafson, [facility] 5 07:54:53 Gastroeso phageal reflux disease without esophagit is 413761586 Active 2023 NICOLE HAEFFNER null, [facility] 5 07:55:09 Anxiety 58156858 Active 2023 NICOLE HAEFFNER null, [facility] 5 07:54:40 Rib pain 680183866 Completed 202305/14/2024 NICOLE HAEFFNER null, [facility] 5 07:57:21 Nausea 158285225 Completed 202305/14/2024 NICOLE HAEFFNER null, [facility] 5 07:55:56 Peptic ulcer 82722260 Completed 202305/14/2024 NICOLE HAEFFNER null, [facility] 5 07:57:13 Abdominal pain 38470242 Active 2023 NICOLE HAEFFNER null, [facility] 5 20:29:14 Pain in bilateral legs 60194363512 401841 Completed 202305/14/2024 NICOLE HAEFFNER null, [facility] 5 07:56:52 Pain in left lower limb 231207679 Completed 202305/14/2024 NICOLE HAEFFNER null, [facility] 5 07:57:01 Acquired dilation of bile duct 83932934808 18762 Completed 202305/14/2024 NICOLE HAEFFNER null, [facility] 5 07:54:30 Deep venous thrombosi s 676086587 Completed 202305/14/2024 NICOLE HADENISE null, [facility] 5 07:54:50 Anemia 925851044 Active 2023 NICOLE HAEFEMORY null, [facility] 5 07:54:37 Pain in right arm 565197002 Completed 202305/14/2024 NICOLE HALESLYFEDD null, [facility] 5 07:57:07 Right upper quadrant pain 915804872 Completed 202305/14/2024 NICOLE HADENISE null, [facility] 5 07:57:36 Nausea and vomiting 36729753 Completed 202305/14/2024 NICOLE HADENISE null, [facility] 5 07:56:02 Edema 939608880 Completed 202305/14/2024 NICOLE HADENISE null, [facility] 5 07:54:58 Rheumatoi d arthritis 87270188 Active 2024 NICOLE HADENISE null, [facility] 5 08:03:54 Chronic deep venous thrombosi s of lower extremity 49970651963 9106 Active 2024 NICOLE HALESLYFEDD null, [facility] 5 08:05:04 Low back pain 896659139 Active 2024 NICOLE HADENISE null, [facility] 5 18:20:21 Restless legs 40435841 Active 2024 NICOLE HALESLYFEDD null, [facility] 5 18:20:23 Chronic insomnia 420323021 Active 2024 [facility] 5 18:31:19 Problem Notes None recorded. Procedures Surgical History Date Name Laterality Status Provider Name and Address Organization Details Recorded Time 2023 insertion of arterial stent completed JER GARCIA PA-C [address] [place], [address], [facility] 4 15:12:39 2023 colonoscopy completed BOO GARCIA PA-C [address] [place], [address], [facility] 4 17:29:05 2023 esophagogastroduodenoscopy completed BOO GARCIA PA-C [address] [place], [address], [facility] 4 17:08:01 2023 ultrasonography of liver completed NICOLE CRANE [facility] 4 16:43:05 2023 primary posterior decompression cervical cord and fusion completed BOO GARCIA PA-C [address] [place], [address], [facility] 4 13:58:12 2023 insertion of inferior vena caval filter completed BOO GARCIA PA-C [address] [place], [address], [facility] 4 13:58:28 2022 primary fusion of cervical spine completed BOO GARCIA PA-C [address] [place], [address], [facility] 3 12:50:26 Imaging Results None recorded. Procedure Notes None recorded. Medical Equipment None Reported. Allergies Allergen ID Allergen Name Allergen Category Reaction Reaction Severity Criticality Documentation Date Start Date Code Code System Note Provider Name and Address Organization Details Recorded Time 34093 Benadryl medicatio n Not available Not available Not available 03/12/2023 00532 7 RxNorm NICOLE ROSA MARIA gusatfson [facility] 3 12:01:01 40708 amitripty line medicatio n Not available Not available Not available 03/12/2023 704 RxNorm NICOLE ROSA MARIA gustafson [facility] 3 12:01:37 27882 tizanidin e medicatio n Not available Not available Not available 03/12/2023 26201 RxNorm NICOLE gustafson [facility] 3 12:08:21 01097 morphine medicatio n confusion Not available [facility] 09/02/2023 7052 RxNorm BOO GARCIA PA-C [address] [place] [address], [address], [facility] 4 15:15:03 Medications Name Sig Start Date Stop Date Status Note LastModified by Organization Details LastModified Time fluoxetine 40 mg capsule TAKE 1 CAPSULE BY MOUTH EVERY MORNING 03/12 completed Not Available Not Available Not Available furosemide 40 mg tablet Take 1 tablet every day by oral route as needed. 05/24 completed Not Available Not Available Not Available latanopros t 0.005 % eye drops PLACE 1 DROP INTO BOTH EYES AT BEDTIME 12/13 completed Not Available Not Available Not Available fluconazol e 100 mg tablet TAKE 1 TABLET BY MOUTH EVERY DAY FOR 14 DAYS 06/02 completed Not Available Not Available Not Available prednisone 10 mg tablet 1 qod 04/15 completed Not Available Not Available Not Available venlafaxin e ER 75 mg capsule,ex tended release 24 hr TAKE 1 CAPSULE BY MOUTH DAILY ANXIETY AND CATAPLEXY active Not Available Not Available No t Available gabapentin 600 mg tablet 1 tid 08/02 completed Not Available Not Available Not Available doxycyclin e hyclate 100 mg capsule TAKE 1 CAPSULE BY MOUTH TWICE DAILY FOR 7 DAYS 08/10 completed Not Available Not Available Not Available ropinirole 1 mg tablet TAKE ONE TABLET BY MOUTH EVERY EVENING 03/12 completed Not Available Not Available Not Available sulfasalaz ine 500 mg tablet 03/12 completed Not Available Not Available Not Available tizanidine 4 mg tablet TAKE 1 TABLET BY MOUTH EVERY 8 HOURS NEEDED FOR MUSCLE SPASTICIT Y 03/12 completed Not Available Not Available Not Available sucralfate 100 mg/mL oral suspension 03/14 completed Not Available Not Available Not Available lorazepam 2 mg/mL injection solution 07/01 completed Not Available Not Available Not Available sucralfate 1 gram tablet TAKE 1 TABLET BY MOUTH BEFORE MEALS AND AT BEDTIME 10/25 completed Not Available Not Available Not Available promethazi ne 12.5 mg tablet TAKE 1 TABLET BY MOUTH EVERY 8 HOURS NEEDED active Not Available Not Available No t Available ondansetro n HCl 4 mg tablet TAKE 1 TABLET BY MOUTH EVERY 8 HOURS NEEDED FOR NAUSEA 10/25 completed Not Available Not Available Not Available famotidine 40 mg tablet TAKE 1 TABLET BY MOUTH DAILY 03/12 completed Not Available Not Available Not Available prednisone 20 mg tablet TAKE 2 TABLETS BY MOUTH EVERY DAY FOR 5 DAYS 08/10 completed Not Available Not Available Not Available ropinirole 3 mg tablet TAKE 1 TABLET BY MOUTH TWICE DAILY 06/30 completed Not Available Not Available Not Available prednisone 5 mg tablet 06/23 completed Not Available Not Available Not Available clonazepam 1 mg tablet TAKE 1 TABLET BY MOUTH EVERY DAY NEEDED 03/12 completed Not Available Not Available Not Available meclizine 12.5 mg tablet TAKE 1 TABLET BY MOUTH THREE TIMES DAILY NEEDED 10/25 completed Not Available Not Available Not Available potassium chloride ER 10 mEq tablet,ext ended release 04/11 completed Not Available Not Available Not Available clopidogre l 75 mg tablet TAKE 1 TABLET BY MOUTH DAILY active Not Available Not Available No t Available methotrexa te sodium 25 mg/mL injection solution INJECT 20 MG (0.8 ML) SUBCUTANE OUSLY EVERY 7 DAYS ON MONDAYS active Not Available Not Available No t Available sulfametho xazole 800 mg-trimeth oprim 160 mg tablet TAKE 1 TABLET BY MOUTH TWICE A DAY FOR 5 DAYS 03/12 completed Not Available Not Available Not Available hydrocodon e 10 mg-acetami nophen 325 mg tablet TAKE 1 TABLET BY MOUTH EVERY 4 HOURS NEEDED 12/13 completed Not Available Not Available Not Available omeprazole 40 mg capsule,de layed release 12/13 completed Not Available Not Available Not Available leflunomid e 20 mg tablet TAKE 1 TABLET BY MOUTH EVERY DAY 07/01 completed Not Available Not Available Not Available tramadol 50 mg tablet 02/07 completed Not Available Not Available Not Available triamcinol one acetonide 0.1 % topical cream APPLY THIN COAT TO AFFECTED AREA TWICE DAILY active Not Available Not Available No t Available ondansetro n 8 mg disintegra ting tablet Place 1 tablet every 8 hours by transling ual route as needed. 10/25 completed Not Available Not Available Not Available pantoprazo le 20 mg tablet,del ayed release 06/23 completed Not Available Not Available Not Available oxycodone- acetaminop hen 5 mg-325 mg tablet 1 TO 2 TAB ORALLY EVERY 4 HOURS NEEDED. *USE FROM EKIT* 10/25 completed Not Available Not Available Not Available alprazolam 0.5 mg tablet Take 1 tablet 3 times a day by oral route as needed for 30 days. 04/11 completed Not Available Not Available Not Available amoxicilli n 875 mg tablet TAKE 1 TABLET BY MOUTH EVERY 12 HOURS FOR 7 DAYS 09/19 completed Not Available Not Available Not Available alprazolam 0.25 mg tablet TAKE 1 TABLET BY MOUTH EVERY 8 HOURS NEEDED FOR ANXIETY FOR 3 DAY active Not Available Not Available No t Available furosemide 80 mg tablet TAKE 1 TABLET BY MOUTH EVERY DAY active Not Available Not Available No t Available dicyclomin e 20 mg tablet TAKE 1 TABLET BY MOUTH THREE TIMES DAILY NEEDED FOR PAIN 04/15 completed Not Available Not Available Not Available betamethas one valerate 0.1 % topical cream APPLY A THIN LAYER TO THE AFFECTED AREA(S) BY TOPICAL ROUTE ONCE DAILY 2024 active Not Available Not Available Not Avai lable baclofen 10 mg tablet TAKE 1 TABLET BY MOUTH THREE TIMES DAILY NEEDED active Not Available Not Available No t Available pantoprazo le 40 mg tablet,del ayed release Take 1 tablet every day by oral route. active Not Available Not Available No t Available levothyrox ine 125 mcg tablet TAKE 1 TABLET BY MOUTH EVERY DAY 2024 active Not Available Not Available Not Avai lable promethazi ne 25 mg/mL injection solution 10/25 completed Not Available Not Available Not Available promethazi ne 25 mg tablet 06/23 completed Not Available Not Available Not Available brimonidin e 0.2 % eye drops active Not Available Not Available No t Available BD Luer-Eloise Syringe 3 mL 25 gauge x 1 DIRECTED active Not Available Not Available No t Available docusate sodium 100 mg capsule 12/13 completed Not Available Not Available Not Available gabapentin 300 mg capsule TAKE 1 CAPSULE BY MOUTH THREE TIMES DAILY active Not Available Not Available No t Available omeprazole 20 mg capsule,de layed release 10/25 completed Not Available Not Available Not Available folic acid 1 mg tablet TAKE 1 TABLET BY MOUTH EVERY DAY NEEDED FOR EDEMA active Not Available Not Available No t Available morphine ER 15 mg tablet,ext ended release Take by oral route for 30 days. 07/01 completed Not Available Not Available Not Available mirtazapin e 15 mg tablet TAKE 1 TABLET BY MOUTH EVERYDAY AT BEDTIME active Not Available Not Available No t Available scopolamin e 1 mg over 3 days transderma l patch 07/01 completed Not Available Not Available Not Available albuterol sulfate HFA 90 mcg/actuat ion aerosol inhaler INHALE 2 PUFFS BY MOUTH EVERY 4 HOURS NEEDED active Not Available Not Available No t Available ropinirole 5 mg tablet TAKE 1 TABLET BY MOUTH TWICE DAILY 2024 active Not Available Not Available Not Avai lable ondansetro n 4 mg disintegra ting tablet DISSOLVE ONE TABLET BY MOUTH EVERY DAY NEEDED FOR NAUSEA AND VOMITING 03/12 completed Not Available Not Available Not Available cefdinir 300 mg capsule TAKE 1 CAPSULE BY MOUTH EVERY 12 HOURS F8D 02/07 completed Not Available Not Available Not Available fluticason e propionate 50 mcg/actuat ion nasal spray,susp ension INSTILL ONE (1) SPRAY IN EACH NOSTRIL TWICE DAILY active Not Available Not Available No t Available doxycyclin e hyclate 100 mg tablet 06/23 completed Not Available Not Available Not Available diazepam 5 mg tablet TAKE 1 TABLET BY MOUTH TWICE A DAY NEEDED FOR ANXIETY 06/30 completed Not Available Not Available Not Available levothyrox ine 112 mcg tablet Take 1 tablet every day by oral route for 90 days. 04/13 completed Not Available Not Available Not Available amoxicilli n 875 mg-potassi um clavulanat e 125 mg tablet 06/02 completed Not Available Not Available Not Available oxycodone 5 mg tablet TAKE 1 TO 2 TABLETS BY MOUTH EVERY 4 HOURS NEEDED FOR PAIN 02/07 completed Not Available Not Available Not Available Laxative (bisacodyl ) 5 mg tablet,del ayed release TAKE PER COLON PREP INSTRUCTI ONS 10/25 completed Not Available Not Available Not Available Fleet Glycerin (Adult) rectal suppositor y 06/30 completed Not Available Not Available Not Available nitrofuran toin monohydrat e/macrocry stals 100 mg capsule Take 1 capsule every 12 hours by oral route for 7 days. 10/25 completed Not Available Not Available Not Available lactulose 10 gram/15 mL oral solution Take 30 mL every 4 hours by oral route as needed for 30 days. 2024 active Not Available Not Available Not Avai lable ramelteon 8 mg tablet TAKE 1 TABLET BY MOUTH EVERY DAY AT BEDTIME active Not Available Not Available No t Available oxycodone 10 mg tablet TAKE 1 TABLET BY MOUTH EVERY 8 HOURS NEEDED. DO NOT EXCEED 3 PER DAY 30 DAYS active Not Available Not Available No t Available dexlansopr azole 30 mg capsule,bi phase delayed release TAKE 1 CAPSULE BY MOUTH AT BEDTIME 06/30 completed Not Available Not Available Not Available GaviLyte-G 236 gram-22.74 gram-6.74 gram-5.86 gram oral solution TAKE PER COLON PREP INSTRUCTI ONS 10/25 completed Not Available Not Available Not Available Calmosepti ne 0.44 %-20.6 % topical ointment 10/25 completed Not Available Not Available Not Available Dexilant 60 mg capsule, delayed release Take 1 capsule every day by oral route for 56 days. 12/13 completed Not Available Not Available Not Available doxepin 6 mg tablet TAKE 1 TABLET BY MOUTH EVERY DAY AT BEDTIME NEEDED FOR SLEEP 04/15 completed Not Available Not Available Not Available Eliquis 2.5 mg tablet TAKE 1 TABLET BY MOUTH TWICE DAILY 07/06 completed Not Available Not Available Not Available BD Insulin Syringe Ultra-Fine 1 mL 31 gauge x 5/16 USE DIRECTED active Not Available Not Available No t Available Simbrinza 1 %-0.2 % eye drops,susp ension 05/24 completed eyes swell Not Available Not Available Not Available potassium chloride ER 20 mEq tablet,ext ended release TAKE 1 TABLET BY MOUTH EVERY DAY FOR 30 DAYS active Not Available Not Available No t Available Movantik 12.5 mg tablet TAKE 1 TABLET BY MOUTH EVERY DAY IN THE MORNING 04/11 completed Not Available Not Available Not Available Movantik 25 mg tablet TAKE 1 TABLET BY MOUTH EVERY DAY active Not Available Not Available No t Available Vitals Date Recorded Body height Body mass index (BMI) Body weight Oxygen saturation Oxygen saturation in Arterial blood by Pulse oximetry Heart rate Respiratory rate Body temperature Systolic And Diastolic Provider Name and Address Organization Details Last Updated DateTime 5 163.83 cm 26 kg/m2 48543.2 2 g 97 % 97 % 78 /min 20 /min 97.7 [degF] 130/70 mm[Hg] [facility] 5 14:54:15 Date Recorded Body height Body mass index (BMI) Body weight Oxygen saturation Oxygen saturation in Arterial blood by Pulse oximetry Heart rate Respiratory rate Body temperature Systolic And Diastolic Provider Name and Address Organization Details Last Updated DateTime 5 163.83 cm 25.7 kg/m2 38057.0 4 g 98 % 98 % 80 /min 18 /min 98 [degF] 136/80 mm[Hg] [facility] 5 13:09:27 Date Recorded Body height Body mass index (BMI) Body weight Oxygen saturation Oxygen saturation in Arterial blood by Pulse oximetry Heart rate Respiratory rate Body temperature Systolic And Diastolic Provider Name and Address Organization Details Last Updated DateTime 5 163.83 cm 25.5 kg/m2 53557.4 5 g 95 % 95 % 78 /min 18 /min 97.9 [degF] 138/80 mm[Hg] [facility] 5 14:51:17 Date Recorded Body height Body mass index (BMI) Body weight Oxygen saturation Oxygen saturation in Arterial blood by Pulse oximetry Heart rate Respiratory rate Systolic And Diastolic Provider Name and Address Organization Details Last Updated DateTime 5 163.83 cm 24.5 kg/m2 31613.8 9 g 99 % 99 % 62 /min 19 /min 130/80 mm[Hg] MALENA VACA [facility] 5 11:50:04 Date Recorded Body height Body mass index (BMI) Body weight Oxygen saturation Oxygen saturation in Arterial blood by Pulse oximetry Heart rate Respiratory rate Body temperature Systolic And Diastolic Provider Name and Address Organization Details Last Updated DateTime 5 163.83 cm 23.8 kg/m2 91634.5 2 g 99 % 99 % 76 /min 18 /min 97 [degF] 136/80 mm[Hg] [facility] 5 14:52:39 Social History None recorded. Functional Status None recorded. Mental Status None recorded. Family History Nothing Reported. Medical History No medical history recorded. Gynecological HistoryNo gynecological history recorded. Obstetrics History GPAL:G 0 P 0 0 0 0 Immunizations Vaccine Type Date Status Note Provider Nam e and Address Organization Details Recorded Time COVID-19, mRNA, LNP-S, PF, errol-sucrose, 30 mcg/0.3 mL 4 completed [facility] 11/12/2023 15:11:33 Influenza, split virus, trivalent, PF 4 completed [facility] Available [facility] 08/23/[facility]24 14:47:59 Pneumococcal conjugate PCV20, polysaccharide LXT331 conjugate, adjuvant, PF 5 completed NICOLE CRANE [facility], Job 05/24/2024 16:17:51 Past Encounters Encounter ID Performer Location Encounter Start Date Encounter Closed Date Diagnosis/Indication Diagnosis SNOMED-CT Code Diagnosis ICD10 Code Diagnosis Note [id number] BOO GARCIA PA-C [facility] ([facility]) [address] [place] [address] 03/12/2023 11:51:10 03/15/2023 10:06:45 Pain in right hand 6389744489 84175 M79.641 Ganglion c yst of right wrist 2213966223 10274 M67.431 Acute urin albert tract infection 664864093 N39.0 Cervical spondylosis 387 225208 M47.812 C3/[address] Hung Feb 01 Chronic low back pain 27 1084710 M54.50 Gallstone pancreatitis 71585486 K85.10 Has enlarge CBD on CT 14.5 mm. GB is absent Administra tion of viral vaccine 22832424 Z23 Rheumatoid arthritis [address] Crabtree [employer] form filled out during today's office visit [id number] BOO GARCIA PA-C [facility] ([facility]) [address] [place] [address] 04/15/2023 14:41:58 04/15/2023 16:52:11 Neuropathy 370997770 G62.9 Candidiasis of mouth 797 58188 B37.0 will tx with oral meds with suspiscion she may have some esophageal candidiasi s. Nausea and vomiting 1692 1999 R11.2 Iron defic iency anemia 20229954 D50.9 Hypothyroidism 65106514 E03.9 Rheumatoid arthritis [address] Crabtree CCA form filled out during today's office visit Low back pain [id number] M54.50 [id number] BOO GARCIA PA-C [facility] ([facility]) [address] [place] [address] [phone] 5 05/19/2023 13:23:55 05/25/2023 12:39:49 History of cervical spine fusion [id number] 101 Z98.1 2.2.24 Posterior C2-T1 with Dr. Hung (3 neck surgeries in total) Upper gastrointestinal bleeding 65885209 K92.89 scope 03/[address] Ruiz. Deep venou s thrombosis 407400281 I82.409 found 2.2.24 not a candidate for anticoat due to recent GI bleed so IVC placed. Generalize d anxiety disorder 41853506 F41.1 monitor Benzo requests. Has several rxes xanax, valium and clonazepam from [facility] PCP, Dr. Hung ortho, and Dr. Gomes saw in SNF. Chronic pain syndrome 37 2450954 G89.4 Oxcontin 7.[address] Lisa. Recently increased to 10mg q 4 hrs from recent surgery. (temporary rx for [place] given waiting for Oxy to come in then d/margaret 2.8.24 KM) Anemia 175613998 D64.9 cbc, cmp on Wednesday [id number] Srinivasan Gomes DO [facility]) [address] [place] [address] 5 05/25/2023 08:03:34 05/31/2023 12:19:42 Hospital inpatient stay within past 30 days [id number] 106 Z76.89 History of cervical spine fusion 6088477770 101 Z98.1 Hypothyroidism 06676004 E03.9 Chronic pain 85270221 G8 9.29 Depressive disorder 3548 9007 F32.A Gastroesop hageal reflux disease without esophagitis 868635999 K21.9 [id number] Srinivasan Gomes DO [facility]) [address] [place] [address] [id number] 5 06/01/2023 09:36:24 06/09/2023 06:46:40 Anxiety 92720176 F41.9 Chronic pain 54494136 G8 9.29 History of cervical spine fusion 2417986639 101 Z98.1 [id number] Srinivasan Gomes DO [facility]) [address] [place] [address] 5 06/08/2023 08:37:13 06/10/2023 16:36:08 History of cervical spine fusion 2157775807 101 Z98.1 Anxiety 77669810 F41.9 Chronic pain 10783265 G8 9.29 Depressive disorder 3548 9007 F32.A [id number] Srinivasan Gomes DO [facility] ([facility]) [address] [place] [address] 68317-913 5 06/15/2023 09:21:43 06/28/2023 15:09:18 History of cervical spine fusion 9478428488 101 Z98.1 Low back pain 161901607 M54.50 Depressive disorder 0320 9964 F32.A [id number] Ulysses Rivera MD [facility] ([facility]) [address] [place] [address] [id number] 5 06/24/2023 12:59:38 06/27/2023 18:03:54 Anxiety 56928085 F41.9 Refill provided for medication . Rib pain 615489019 R07.8 1 Patient has pain along her right ribs. The patient has had workup through the emergency room for fractured ribs and x-rays were negative. However patient was informed that mild undisplace d rib fractures may be difficult to see. Encouraged patient to continue to use pain management , deep inspiratio ns, and relative rest. Anticipate that this will improve over the next 4 to 8 weeks. [id number] BOO GARCIA PA-C [facility] ([facility]) [address] [place] [address] 03363-059 5 07/02/2023 09:48:49 07/02/2023 10:43:55 Spinal stenosis in cervical region 56106706 M48.02 Hospital i npatient stay within past 30 days 5021159291 106 Z76.89 Generalize d anxiety disorder 87035024 F41.1 monitor Benzo requests. Has several rxes xanax, valium and clonazepam from [facility], Dr. Hung ortho, and Dr. Gomes saw in SNF. Opioid dependence 350234 00 F11.20 post cervical surgery 06/05. Getting in to Dr. Hung. [id number] BOO GARCIA PA-C [facility] ([facility]) [address] [place] [address] [id number] 5 08/03/2023 15:31:05 08/07/2023 08:56:13 Peptic ulcer 39536624 K27.9 EGD 11.1.23 neg H.pylori then Deep venou s thrombosis 305540028 I82.409 found 2.2.24 not a candidate for anticoat due to recent GI bleed so IVC placed. Abdominal pain 72022220 R10.9 Anemia 623769371 D64.9 Chronic pain 29285375 G8 9.29 dose drops from 600 to 300 to see if helps with her nausea [id number] BOO GARCIA PA-C [facility] ([facility]) [address] [place] [address] [id number] 5 09/02/2023 14:20:34 09/02/2023 17:34:26 Abdominal pain 75247970 R10.9 since pt is in the worst pain of her life I recommend she go to ER to get work up of her abd pain and get pain control for her chronic cervical stenosis with recent surgery that so far has not been helpful. Spinal cindy nosis in cervical region 37705450 M48.02 [id number] MALIK BRUSH [facility] ([facility]) [address] [place] [address] [id number] 5 09/05/2023 15:44:16 09/06/2023 13:27:43 Middle ear effusion 4911208763 H74.8X9 Discussed use of antibiotic the full 7 days. May take tylenol/mo rima for discomfort .Return if you develop worsening pain, drainage from the ear or concerns arise. Vertigo 371908960 R42 [id number] BOO GARCIA PA-C [facility] ([facility]) [address] [place] [address] [phone] 5 09/20/2023 11:54:13 09/20/2023 16:12:14 [id number] Williams Valerio DO [facility] ([facility]) [address] [place] [address] [phone] 5 09/20/2023 12:40:32 09/20/2023 13:56:13 Anxiety 66895595 F41.9 Acute sero us otitis media of bilateral ears 2376159510 579068 H65.03 [id number] BOO GARCIA PA-C [facility] ([facility]) [address] [place] [address] [phone] 5 09/22/2023 11:55:06 09/23/2023 12:29:54 [id number] Srinivasan Gomes DO [facility] ([facility]) [address] [place] [address] 5 10/05/2023 08:21:33 10/06/2023 08:39:15 [id number] BOO GARCIA PA-C [facility] ([facility]) [address] [place] [address] [id number] 5 10/06/2023 12:17:06 10/20/2023 08:37:19 Pain in right arm 164393542 M79.[address] HENRY, MRI , Anemia 279944810 D64.9 HEMOCCULT x3 due to persistant anemia. GI appt TOMORROW in [facility] Right uppe r quadrant pain 851878836 R10.11 [id number] CLAIRE KILLIAN APRN [facility] ([facility]) [address] [place] [address] [phone] 5 10/09/2023 14:01:50 10/09/2023 14:43:26 Dysuria 87896647 R30.0 Acute urin albert tract infection 065180935 N39.0 [id number] BOO GARCIA PA-C [facility] ([facility]) [address] [place] [address] 32904-153 5 10/13/2023 14:26:50 11/02/2023 17:06:17 Nausea and vomiting 88391574 R11.2 will see what GI finds on scopes Anemia 688968736 D64.9 INJECTIFER 750MG X 2, Acute urin albert tract infection 134645094 N39.0 MACROBID 100MG BID [id number] BOO GARCIA PA-C [facility] ([facility]) [address] [place] [address] [phone] 5 10/20/2023 11:55:15 10/20/2023 14:08:06 Low back pain 522098104 M54.50 d/c to home with current meds and out pt ordersF/U with me in office next week. Constipation 02417989 K5 9.00 Obstructio n of common bile duct 992767530 K83.1 thickening of CMB no CT and U/S. intermitan t emesis with white stools. [id number] BOO GARCIA PA-C [facility] ([facility]) [address] [place] [address] [phone] 5 10/26/2023 15:17:52 10/26/2023 17:51:16 Peripheral arterial occlusive disease 273470291 I73.9 Left common femoral artery occluded on CT scan with MADONNA .7 on the LeftHas an IVC filter in place.Toda y no evidence of critical limb ischemia. To ER if increased pain/numbn ess in leg, change in temperatur e or color Deep venou s thrombosis of lower extremity 208547045 I82.409 thrombus in R common femoral vein . IVC filter in place. Pt with recent GI bleed.Not able to anticoagul ate at this time. Iron defic iency anemia 49991282 D50.9 INJECTIFER 750MG X 2 doses 7 days apart.Hgb 8.3 at [facility] 7..24. recent EGD/colono scopy 10.22.23 with lavern Blanchard. Acute gastrointestinal hemorrhage 13504218 K92.2 cauterizat ion in small intestine on last EGD? per waiting on notes. Chronic pain 34761982 G8 9.29 Chronic neck pain 372974 6590 107 M54.2 Hospital i npatient stay within past 30 days 9926057301 106 Z76.89 meds reconciled . non changed today last ER records CT and labs reviewedSp juanita with Faith Morris MA and she is to fax us her records and we are to fax her last CT, U/S liver and labs. [id number] BOO GARCIA PA-C [facility] ([facility]) [address] [place] [address] 11/03/2023 14:57:45 11/03/2023 17:25:44 Iron deficiency anemia 18358658 D50.9 INJECTIFER 750MG X 2 doses 7 days apart.Hgb 8.3 at [facility] 7..24. recent EGD/colono scopy 10.22.23 with lavern Blanchard. Dysuria 68830068 R30.0 Tinnitus o f vascular origin 536107631 H93.A9 Deep venou s thrombosis of lower extremity 894375960 I82.409 thrombus in R common femoral vein . IVC filter in place. Pt with recent GI bleed.Not able to anticoagul ate at this time. Peripheral arterial occlusive disease 057443527 I73.9 Left common femoral artery occluded on CT scan with MADONNA .7 on the LeftHas an IVC filter in place.Toda y no evidence of critical limb ischemia. To ER if increased pain/numbn ess in leg, change in temperatur e or color [id number] BOO GARCIA PA-C [facility] ([facility]) [address] [place] [address] [phone] 5 11/09/2023 13:55:02 12/14/2023 07:04:25 Acquired cystic dilatation of common bile duct 501442061 K83.5 Iron defic iency anemia 81938757 D50.9 Set up for injectafer on for first dose.Hgb 8.3 at [facility] 7.14.24. recent EGD/colono scopy 10.22.23 with lavern Blanchard. [id number] BOO GARCIA PA-C [facility] ([facility]) [address] [place] [address] [phone] 5 11/10/2023 12:49:56 11/10/2023 17:31:37 [id number] BOO GARCIA PA-C [facility] ([facility]) [address] [place] [address] [id number] 5 11/25/2023 14:58:08 12/14/2023 07:10:16 Deep venous thrombosis of lower extremity 581111017 I82.409 thrombus in R common femoral vein . IVC filter in place. Pt with recent GI bleed Hgb are rising.I will have her to a hemoccult card. If Hgb going up and hemoccult Neg I think if ok with vascular, it would be time to try anticoagul ation with close monitoring of cbcs Iron defic iency anemia 25924494 D50.9 Set up for injectafer Hgb 8.3 at [facility] 7.14.24. recent EGD/colono scopy 10.22.23 with lavern Blanchard. [id number] BOO GARCIA PA-C [facility] ([facility]) [address] [place] [address] [id number] 5 12/14/2023 15:13:11 12/14/2023 17:27:18 Anemia 688672267 D64.9 Had one iron infusion needs to schedule her next one. Deep venou s thrombosis 717799988 I82.409 started Eliquis .. Restless legs 41678490 G 25.81 Hypothyroidism 41330798 E03.9 [id number] BOO GARCIA PA-C [facility] ([facility]) [address] [place] [address] [phone] 5 01/11/2024 11:50:16 01/17/2024 09:34:21 Cervical radiculitis 74084815 M54.12 Pain of ri ght shoulder joint 6379812930 4691252 M25.511 Peripheral vascular disease 387092681 I73.9 Dr. Dawn moreno managing her arterial disease on the L leg, her chronic DVT on the R leg and her richelle filter.1o. 05.05 he still wants her on low dose Eliquis Iron defic iency anemia 10357104 D50.9 Her injectafer is helping Last HGb 10.3 at [facility] 01/06/24.re cent EGD/colono scopy 10.22.23 with lavern Blanchard. fixed upper GI bleed. Repeat eGD 2 months later was resolved. Hospital i npatient stay within past 30 days 3315036329 106 Z76.89 meds reconciled . her eliquis was restarted. [id number] Ulysses Rivera MD [facility] ([facility]) [address] [place] [address] [phone] 5 01/20/2024 16:13:53 01/20/2024 16:54:14 [id number] BOO GARCIA PA-C [facility] ([facility]) [address] [place] [address] 34455-633 5 02/08/2024 14:21:48 02/08/2024 15:38:37 Hematemesis 6770141 K92.0 Peripheral vascular disease 501805629 I73.9 Dr. Dawn moreno managing her arterial disease on the L leg, her chronic DVT on the R leg and her richelle filter.keron faith stented her L left. check right leg. no clots. left filter in place and wants her on the Eliquis. Pneumonia 205173252 J18. 9 Hospital i npatient stay within past 30 days 1134382326 106 Z76.89 meds reconciled . her eliquis was restarted. Iron defic iency anemia 99684671 D50.9 Her injectafer is helping Last HGb 10.3 at [facility] 01/06/24.re cent EGD/colono scopy 10.22.23 with lavern Blanchard. fixed upper GI bleed. Repeat eGD 2 months later was resolved. [id number] BOO GARCIA PA-C [facility] ([facility]) [address] [place] [address] [phone] 5 03/14/2024 12:48:46 04/04/2024 12:28:10 Anemia 335439880 D64.9 Had one iron infusion needs to schedule her next one. Acquired d ilation of bile duct 9036720761 042500 K83.8 Peripheral vascular disease 328187009 I73.9 Dr. Dawn moreno managing her arterial disease on the L leg, her chronic DVT on the R leg and her richelle filter.keron cuevas stented her L left. check right leg. no clots. left filter in place and wants her on the Eliquis. Spinal cindy nosis in cervical region 92562682 M48.02 [id number] BOO GARCIA PA-C [facility] ([facility]) [address] [place] [address] 33808-485 5 04/11/2024 11:03:08 04/13/2024 12:31:09 Stasis dermatitis of lower limb due to chronic peripheral venous hypertension 669298777 I87.399 Drug-induc ed constipation 14965049 K59.03 Edema 197061750 R60.9 Idiopathic peripheral neuropathy 80321646 G60.9 Hypothyroidism 93874315 E03.9 [id number] BOO GARCIA PA-C [facility] ([facility]) [address] [place] [address] 15151-430 5 04/19/2024 14:34:02 04/24/2024 09:23:08 Obstruction of common bile duct 956088782 K83.1 thickening of CMB no CT and U/S. intermitan t emesis with white stools. Rheumatoid arthritis [address] Crabtree [employer] form filled out during today's office visit Opioid dependence 603515 00 F11.20 post cervical surgery 06/05. Getting in to Dr. Hung. Anemia 134170324 D64.9 Had one iron infusion needs to schedule her next one. Hypothyroidism 33696858 E03.9 Anxiety disorder 2885515 06 F41.9 Chronic pain syndrome 37 2177339 G89.4 Oxcontin 7.[address] Lisa. Recently increased to 10mg q 4 hrs from recent surgery. (temporary rx for [place] given waiting for Oxy to come in then d/margaret 2.8.24 KM) Peripheral vascular disease 383599427 I73.9 Dr. Dawn moreno managing her arterial disease on the L leg, her chronic DVT on the R leg and her richelle filter.keron faith stented her L left. check right leg. no clots. left filter in place and wants her on the Eliquis. [id number] BOO GARCIA PA-C [facility] ([facility]) [address] [place] [address] 93569-966 5 05/24/2024 14:51:15 05/24/2024 16:00:13 Chronic neck pain 8435726663 107 M54.2 getting nerve stim with DR. Grider in Jun 06 Atopic dermatitis 291812 01 L20.9 Obstructio n of common bile duct 924615387 K83.1 thickening of CMB no CT and U/S. intermitan t emesis with white stools. Administra tion of pneumococcal vaccine 12064391 Z23 Edema 175569008 R60.9 Restless legs 11038331 G 25.81 I looked up meds that can cause formicatio n and her requip is listed which she is on very high doses of. She agrees to back down from tid to bid. Chronic insomnia 6630629 04 F51.04 [id number] BOO GARCIA PA-C [facility] ([facility]) [address] [place] [address] [phone] 5 06/13/2024 12:25:24 06/16/2024 11:56:31 Atopic dermatitis 96133891 L20.9 lower legs. likely from venous stasus Restless legs 76204268 G 25.81 I looked up meds that can cause formicatio n and her requip is listed which she is on very high doses of. She agrees to back down from 5 mg tid to bid.06/13/24 drop her from 5 mg bid to 3 mg po bid. [id number] BOO GARCIA PA-C [facility] ([facility]) [address] [place] [address] 5 07/06/2024 14:47:05 07/10/2024 15:08:00 Peripheral venous insufficiency 84297024 I87.2 Lavern Tate Chronic neck pain 299832 5122 107 M54.2 getting nerve stim with DR. Grider Chest pain 66207608 R07. 9 Hx PAD. will refer to cardiology for consult and testing to see of she has CAD and stable angina [id number] MALIK BRUSH [facility] ([facility]) [address] [place] [address] 5 07/24/2024 11:36:22 07/24/2024 14:50:48 Wheezing 52188019 R06.2 Discussed use of prescribed medication s. VSS. If you develop new/worsen ing s/s then return for re-evaluat ion. [id number] BOO GARCIA PA-C [facility] ([facility]) [address] [place] [address] 5 08/23/2024 14:47:46 08/23/2024 15:42:54 Acute thoracic back pain 512541879 M54.6 30 min spent with pt Chronic neck pain 657167 2934 107 M54.2 G89.29 getting nerve stim with DR. Madison Grider tomorrow 08/24/24 Gastrointe stinal hemorrhage 67029215 K25.4 seeing GI next week for scopy and ERCP Dr. Chava puckett. Health Concerns Section Related Observation LastModified by Organization Detai ls LastModified Time None Recorded Concern Status LastModified by Organization Details LastModified Time None Recorded Advance Directives Directive None Recorded Payers Insurance Date Sequence Insurance Name Policy Number Policy Rivera Covered Member ID Rivera Member ID Guarantor Name 10/15/2024 [place]AB - [place] - [place] A - [facility] (MEDICARE) Tosha Perry [id number] Tosha Perry 10/16/2024 2 [employer] (MEDICARE SUPPLEMENT) Tosha Perry [id number] Tosha Perry 10/15/2024 1 [place] Tosha Perry [id number] Tosha Perry Notes Date Note Type Note Provider Name and Address Organization Details Recorded Time 05/24/2024 text/html Abdominal PainReported bypatient.Location:ge neralized Quality:aching;dull Severity:moderate Duration:intermittent Onset/Timing:sudden; wax/wane Aggravating Factors:movement; eating and drinking Associated Symptoms:no fever; no chills;nausea Dr Hester did MRCP with stent. Sludge built up in the ducts. Wants an x ray done over my pancreas (kub) to check on the stent he put in. eating and drinking. having normal BM I am taking 2 lasix every day can we make it 80mg? Dr. Grider wants to put a nerve stimulator in her neck. Jun 05 Psych eval first. Rash on ankles. I have a feeling of bugs crawling on me all the time and it is driving me crazy. Dr. Patterson put in a neuro referal for her. BOO GARCIA PA-C [address] [place], [address], [facility], L.LHarjeetCHarjeet 05/24/2024 15:52:07 06/13/2024 text/html Musculoskeletal PainReported bypatient.Location:bi lateral neck Quality:sharp;tinglin g;dull Severity:interferes with sleep;interferes with work/school Duration:present <1 month Timing:constant; pain at night Alleviating Factors:changing position Aggravating factors:movement/posi tioning; bending over; twisting having her pacreatic stent this friSeeing vascular surgeon next weekFeeling much better on the dose reduction of Requip. less twitchy and feeling like skin is crawling. BOO GARCIA PA-C [address] [place], [address], [facility], Do. 06/16/2024 10:53:56 07/06/2024 text/html DyspneaReported bypatient.Quality:pre ssure;can't catch breath;breathlessness ;inability to take a deep breath Severity:moderate Onset/Timing:with exertion Context:anxiety Alleviating Factors:rest; sitting up Aggravating Factors:activity Associated Symptoms:fatigue;weak ness;decrease in exercise capacityNotes:has been diuresising more the last 2 daysoccasional sharp mid chest pain.Noticing more dyspnea on exertion and decrease in exercise toleratnce. I have a new vascular surgeon with [facility]. Tate she stopped the eliquis. I am taking baclofen tid instead of bid boo said that was okVenous reflux CBD stent put in. clamped some varices and pantoprazole. Goes back in August. no cancer. sludge cleaned out of CBD BOO GARCIA PA-C [address] [place], [address], [facility], Job 07/10/2024 12:12:56 07/24/2024 text/html CoughReported bypatient.Severity:wo rsening; severe Onset/Timing:sudden Associated Symptoms:no fever;chest pain;wheezing;shortne ss of breath Patient presents with c/o cough and sob/wheezing that started yesterday. Has been using her inhalers and neb treatments at home. Feels like she can't get a full breath. Her chest hurts when coughing. Cough is mostly dry but sometimes productive of yellow sputum. denies fever. MALIK BRUSH [address] [place], [address], [facility], Job 07/24/2024 16:08:07 08/23/2024 text/html CoughReported bypatient.Quality:pro ductive Severity:worsening;pa in with cough; moderate Duration:subacute (3-8 weeks) Onset/Timing:sudden Context:history of bronchitis Associated Symptoms:agitation;wh eezing;shortness of breath;throat clearing;tiredness;de pressionMusculoskelet al PainReported bypatient.Location:bi lateral neck Quality:sharp;tinglin g;dull Severity:worsening Duration:present <1 month Timing:constant; pain at night; gradual Aggravating factors:movement/posi tioning; bending over; twisting Associated Symptoms:weak limbs ADLs Affected:walking; sweeping; mopping; bathing; dressing; climbing stairs HOSPITAL FOLLOW UP [facility], HAS AN APPT FOR COLONOSCOPY ON 09-01-24 IN [place], WORE BRACE FROM DR HENRY AND FELT SOMETHIING POP IN NECK NOW NECK HURTS.JUST FINISHED ANTIBIOTICS FROM THEM DOXY? seeing vascular 08/30seeing GI to check on clip in [place] 09/01 and be scoped again. lavern GARCIA PA-C [address] [place], [address], [facility] 08/23/2024 15:38:13 OBGyn Episode No OBEpisode recorded.
--- OUTSIDE RECORDS SUMMARY | 2024-10-23 14:48 | XMS_ITS | Data Portability ---
Author Organization [place], [place] In[facility] Address [address] [place] [address] Care Team Providers Care Waistline Joiner Overlock Name Role Phone FELIX KEN Referring Provider [facility] Care Provider PJ BERGERON Neurologist Assessment No assessment recorded. Plan of Treatment Reminders Order Date Submit Date Provider Last Modified By Organization Details Last Modified Time Details Appointments None recorded. Lab clostridium difficile Ag + toxin, stool 2019 020 CHRISTIANO [facility] (Lab), [address] [facility]/[place], [address], 1 05:33:25 Referral None recorded. Procedures None recorded. Surgeries None recorded. Imaging None recorded. Medication Orders None recorded. Patient TargetsNo targets recorded. Patient InstructionsNo instructions recorded. Reason for Referral None Reported. Results Created Date Observation Date Name Description Value Unit Range Abnormal Flag Note LastModifiedBy Organization Detail LastModifiedTime 09/18/19 20 09/15/2019 [place], modif ied jenn grace ow study No observ ation record ed. BARCODE Not Available 2019 09:51:11 Result Notes None recorded. Problems Name Problem SNOMED Code Status Onset Date Resolution Date Notes Provider Name and Address Organization Details Recorded Time Restless legs 04178922 Active Von gustafson, [facility] 0 14:41:51 Bradycardia 94181596 Active Von Jordan null, [facility] 0 14:41:51 Nausea and vomiting 65128981 Active Von Jordan null, [facility] 0 14:41:51 Hypomagnesemia 020114383 Active Von Alfaroner null, [facility] 0 14:41:52 Neuropathy 987785007 Active Von Alfaroner null, [facility] 0 14:41:52 Fracture of hand 47924021 Active Von Jordan null, [facility] 0 14:41:52 Discharge status 733500515 Active Von Jordan null, [facility] 0 14:41:52 Fall Active Von Alfaroner null, [facility] 0 14:41:52 Tremor 55626980 Active Von Jordan null, [facility] 0 14:41:52 Hypophosphatem ia 5437889 Active Von Jordan null, [facility] 0 14:41:52 Chronic pancreatitis 217138267 Active Von Jordan null, [facility] 0 14:41:52 Erosive esophagitis 58037888 Active Von Jordan null, [facility] 0 14:41:52 Acute renal impairment 541479033 Active Von Jordan null, [facility] 0 14:41:52 Nausea, vomiting and diarrhea 1850327 Active Von Jordan null, [facility] 0 14:41:52 Generalized anxiety disorder 42648304 Active Von Jordan null, [facility] 0 14:41:52 Anemia 398808572 Active Von Jordan null, [facility] 0 14:41:52 Moderate protein energy malnutrition 484140500 Active Von Jordan null, [facility] 0 14:41:52 Asthenia 37465138 Active Von Jordan null, [facility] 0 14:41:52 Pain in right lower limb 253395546 Active Von Jordan null, [facility] 0 14:41:52 Sprain of shoulder 5996831 Active Von Jordan null, [facility] 0 14:41:52 Chronic constipation 077052263 Active Von Jordan null, [facility] 0 14:41:52 Iron deficiency anemia 63171178 Active Von Jordan null, [facility] 0 14:41:52 Urinary tract infectious disease 95905253 Active Von Jordan null, [facility] 0 14:41:52 Sprain of wrist 34060520 Active Von Jordan null, [facility] 0 14:41:52 Headache disorder 850545158 Active Von Jordan null, [facility] 0 14:41:52 Hiatal hernia 51419545 Active Von Jordan null, [facility] 0 14:41:52 Epilepsy 73777924 Active Von Jordan null, [facility] 0 14:41:53 Seizure disorder 382473015 Active Von Jordan null, [facility] 0 14:41:53 Abdominal pain - cause unknown 081211896 Active Von Jordan null, [facility] 0 14:41:53 Low blood pressure 67717998 Active Von Jordan null, [facility] 0 14:41:53 Gastroesophage al reflux disease 083009507 Active Von Jordan null, [facility] 0 14:41:53 Fever 381976683 Active Von Jordan null, [facility] 0 14:41:53 Hypokalemia 91622282 Active Von Jordan null, [facility] 0 14:41:53 Epigastric pain 64888238 Active Von Jordan null, [facility] 0 14:41:53 Herpes labialis 8080660 Active Von Jordan null, [facility] 0 14:41:53 Hypothyroidism 22293310 Active Von Jordan null, [facility] 0 14:41:53 Paraesophageal hernia 1394333 Active [address], [place], [address], [facility] 0 15:20:43 Acute diarrhea 040494223 Active [address], [place], [address], [facility] 0 15:20:53 Problem Notes None recorded. Procedures Surgical History Date Name Laterality Status Provider Name and Address Organization Details Recorded Time Hysterectomy - Total completed [facility] 10/04/2019 15:10:57 section completed [facility] 10/04/2019 15:11:04 Ectopic completed [facility] 10/04/2019 15:11:22 Appendectomy completed [facility] 10/04/2019 15:11:32 Cholecystectomy (Gallbladder) completed [facility] 10/04/2019 15:11:39 procedure on ankle completed [facility] 10/04/2019 15:11:49 Breast Biopsy completed [facility] 10/04/2019 15:12:13 cataract surgery completed [facility] 10/04/2019 15:12:27 hernia repair completed [facility] 10/04/2019 15:13:15 Imaging Results None recorded. Procedure Notes None recorded. Medical Equipment None Reported. Allergies Allergen ID Allergen Name Allergen Category Reaction Reaction Severity Criticality Documentation Date Start Date Code Code System Note Provider Name and Address Organization Details Recorded Time 2248481 Benadryl medicatio n other Not available Not available 10/04/2019 58850 7 RxNorm restl ess legs Vonrosamaria Jordan [facility] 0 15:06:00 8456428 amitripty line medicatio n other Not available Not available 10/04/2019 704 RxNorm Restl ess legs Von Jordan [facility] 0 15:06:25 Medications Name Sig Start Date Stop Date Status Note LastModified by Organization Details LastModified Time cyclobenzap rine 10 mg tablet TK 1 T PO BID PRF MUSCLE SPASMS 10/03 completed Not Available Not Available Not Available furosemide 40 mg tablet 40 mg by oral route. 09/20 completed Not Available Not Available Not Available gabapentin 600 mg tablet 600 mg by oral route. 2018 active Not Available Not Available Not Avai lable alprazolam 1 mg tablet Take 1 mg by oral route. 10/03 completed Not Available Not Available Not Available hydrocodone 5 mg-acetamin ophen 325 mg tablet 1 tablet by oral route. 08/22 completed Not Available Not Available Not Available promethazin e 12.5 mg tablet 25 mg by oral route. 12/11 completed Not Available Not Available Not Available ropinirole 3 mg tablet TK 1 T PO TID 10/03 completed Not Available Not Available Not Available divalproex 500 mg tablet,carmen yed release TK 1 T PO BID 10/03 completed Not Available Not Available Not Available ondansetron 8 mg disintegrat ing tablet 8 mg by oral route. 2019 active Not Available Not Available Not Avai lable Zofran 4 mg tablet 4 mg by oral route. 12/11 completed Not Available Not Available Not Available oxycodone-a cetaminophe n 10 mg-325 mg tablet 1 tablet by oral route. 12/11 completed Not Available Not Available Not Available dicyclomine 20 mg tablet 20 mg by oral route. 12/11 completed Not Available Not Available Not Available pantoprazol e 40 mg tablet,carmen yed release 40 mg by oral route. 2019 active Not Available Not Available Not Avai lable levothyroxi ne 125 mcg tablet 0.125 mg by oral route. 2019 active Not Available Not Available Not Avai lable gabapentin 300 mg capsule 10/03 completed Not Available Not Available Not Available ibuprofen 600 mg tablet active Not Available Not Available Not Available oxycodone-a cetaminophe n 7.5 mg-325 mg tablet active Not Available Not Available Not Available ropinirole 5 mg tablet 5 mg by oral route. 2019 active Not Available Not Available Not Avai lable dicyclomine 10 mg capsule 10/03 completed Not Available Not Available Not Available levothyroxi ne 112 mcg tablet 112 microgram s by oral route. 09/20 completed Not Available Not Available Not Available topiramate 50 mg tablet TK 1 T PO BID 10/03 completed Not Available Not Available Not Available nitrofurant oin monohydrate /macrocryst als 100 mg capsule 100 mg by oral route. 12/21 completed Not Available Not Available Not Available levetiracet am 1,000 mg tablet 1000 mg by oral route. 12/21 completed Not Available Not Available Not Available dexlansopra zole 60 mg capsule,bip hase delayed release 60 mg by oral route. 09/20 completed Not Available Not Available Not Available lactulose 10 gram/15 mL (15 mL) oral solution 15 mL by oral route. 12/21 completed Not Available Not Available Not Available lipase-prot ease-amylas e 20,000-63,0 00-84,000 unit capsule, delayed rel 78989 unitss by oral route. 2019 active Not Available Not Available Not Avai lable Vitals Date Recorded Body height Body mass index (BMI) Body weight Oxygen saturation Oxygen saturation in Arterial blood by Pulse oximetry Heart rate Systolic And Diastolic Provider Name and Address Organization Details Last Updated DateTime 0 166.37 cm 22.8 kg/m2 58454.3 4 g 97 % 97 % 73 /min 112/72 mm[Hg] Von Alfaroner [employer] 0 15:15:36 Social History Question Answer Notes LastModified by Organizat ion Details LastModified Time Tobacco Smoking Status Former Smoker Von gustafson, [employer] 10/04/2019 15:09:56 Marital Status [email or web address] Informatio n not available 10/04/2019 How Many Years Have You Smoked Tobacco? 2 [email or web address] Information not available 10/04/2019 Sex: Unknown Functional Status Question Answer Note LastModified by Organizat ion Details LastModified Time What is your level of alcohol consumption? None [email or web address] Information not available 10/04/2019 Are you currently employed? No Information not available 10/04/2019 What is your occupation? Retired [employer] [email or web address] Information not available 10/04/2019 Mental Status None recorded. Family History Nothing Reported. Medical History No medical history recorded. Gynecological HistoryNo gynecological history recorded. Obstetrics History GPAL:G 0 P 0 0 0 0 Past Encounters Encounter ID Performer Location Encounter Start Date Encounter Closed Date Diagnosis/Indication Diagnosis SNOMED-CT Code Diagnosis ICD10 Code Diagnosis Note [id number] Stu Pickering MD [facility] [address] [facility] [address] [place] [address] 10/04/2019 14:25:56 10/04/2019 15:27:43 Paraesophageal hernia 1374485 K44.9 I have instructed the patient to resume normal activities and follow up with myself on an as needed basis. Patient states understand ing and agreement with the above plan. Patient is extremely pleased with their surgical care and results. Acute diarrhea 639646999 R19.7 Health Concerns Section Related Observation LastModified by Organization Detai ls LastModified Time None Recorded Concern Status LastModified by Organization Details LastModified Time None Recorded Advance Directives Directive None Recorded Payers Insurance Date Sequence Insurance Name Policy Number Policy Rivera Covered Member ID Rivera Member ID Guarantor Name 12/04/2021 1 [employer] ([employer] [id number] Tosha Perry [id number] Tosha Perry Notes Date Note Type Note Provider Name and Address Organization Details Recorded Time 10/04/2019 text/html Patient is statu s post laparoscopic paraesophageal hernia repair 09/20/2019. She presents for routine follow-up. She is doing well. She is eating normally. She does report belching at night and complains of diarrhea since being discharged from the hospital. Patient also complains of a large amount of flatulence. Her nausea and abdominal pain that she had prior to surgery have completely resolved. Stu Pickering MD [address], [place], [address], [facility] 10/04/2019 17:35:50 OBGyn Episode No OBEpisode recorded.
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
--- OUTSIDE RECORDS SUMMARY | 2024-10-23 14:49 | XMS_ITS | Patient Health Record ---
Author Organization [facility] Address [address] [place] [address] Care Team Providers Care Controls Designer Name Role Phone Desiree Gaming MD Primary Care Provider Unavailab Srinivasan Wilcox Unavailable [phone] Reason For Referral No Information Medications Medication SIG (Take, Route, Frequency, Duration) Notes Start Date End Date Status Ondansetron 8 MG Tablet Disintegrating TAKE 1 TABLET EVERY 6-8 HOURS PRN nausea Oral Active Omeprazole-Sodium Bicarbonate 40-1100 MG Capsule TK 1 C PO QD OES Oral 04/06/2017 Active Dexilant 60 MG Capsule Delayed Release TAKE 1 CAPSULE DAILY Oral 02/10/2018 Active Vimpat 50 MG Tablet Oral 03/23/2017 Active Creon 20242 UNIT Capsule Delayed Release Particles Oral 04/07/2017 Active Creon 93223 UNIT Capsule Delayed Release Particles Oral 02/18/2017 Active Omeprazole 40 MG Capsule Delayed Release Oral 02/11/2017 Active Gabapentin 600 MG Tablet TK 1 T PO TID Oral 09/02/2016 Active Nitrofurantoin Monohyd Macro 100 MG Capsule Oral 12/09/2017 Active BD TB Syringe 25G X 5/8 1 ML Does Not Apply *please review for potential update for e-prescription and drug interaction check* 02/03/2018 Active Gabapentin 300 MG Capsule TAKE 1 CAPSULE 3 TIMES DAILY. Oral Active rOPINIRole HCl 5 MG Tablet Oral 10/05/2019 Active Furosemide 40 MG Tablet Oral 03/02/2017 Active rOPINIRole HCl 3 MG Tablet TAKE 1 TABLET 3 TIMES DAILY. Oral Active Folic Acid 1 MG Tablet TAKE 1 TABLET DAILY. Oral Active Voltaren 1 % Gel Transdermal 07/13/2017 Active Ferrous Sulfate 324 (65 Fe) MG Tablet Delayed Release Oral 01/11/2018 Active Ferrous Sulfate 325 (65 Fe) MG Tablet TAKE 1 TABLET TWICE DAILY Oral Active Doxycycline Hyclate 100 MG Capsule Oral 05/23/2017 Active Naproxen 500 MG Tablet TK 1 T PO Q 8 H PRN P Oral 08/23/2017 Active methylPREDNISolone 4 MG Tablet Therapy Pack Oral 09/30/2018 Active Lumigan 0.01 % Solution Ophthalmic 06/28/2017 Active Levothyroxine Sodium 112 MCG Tablet TAKE 1 TABLET DAILY DIRECTED. Oral Active traMADol HCl 50 MG Tablet TAKE 1 TABLET BY MOUTH EVERY 6 HOURS NEEDED FOR PAIN Oral Active Divalproex Sodium 500 MG Tablet Delayed Release Oral 11/04/2017 Activ e Dicyclomine HCl 10 MG Capsule TAKE 1 CAPSULE EVERY 6 HOURS NEEDED. Oral 08/15/2019 Active Topiramate 50 MG Tablet TAKE 1 TABLET TWICE DAILY. Oral Active Dicyclomine HCl 20 MG Tablet Oral 11/25/2018 Active Depakote 500 MG Tablet Delayed Release TAKE 1 TABLET TWICE DAILY WITH MEALS. Oral Active tiZANidine HCl 4 MG Tablet TK 1 T PO TID PRN FOR MUSCLE SPASMS Oral 08/23/2017 Active Cyclobenzaprine HCl 10 MG Tablet TAKE 1 TABLET TWICE DAILY NEEDED. Oral Active Clindamycin HCl 300 MG Capsule Oral 06/21/2017 Active Citalopram Hydrobromide 40 MG Tablet Oral 03/02/2017 Active Cephalexin 500 MG Capsule Oral 07/13/2018 Active Spironolactone 25 MG Tablet Oral 03/02/2017 Active Simvastatin 20 MG Tablet TAKE 1/2 TABLET DAILY. Oral Active Azithromycin 250 MG Tablet Oral 04/20/2017 Active Atorvastatin Calcium 40 MG Tablet Oral 03/02/2017 Active Promethazine HCl 25 MG Tablet TAKE 1 TABLET EVERY 8 HOURS PRN nausea Oral Active predniSONE 5 MG Tablet Oral 06/02/2018 Active Amoxicillin 500 MG Capsule Oral 03/07/2018 Active predniSONE 10 MG Tablet Oral 02/03/2018 Active ALPRAZolam 0.5 MG Tablet Oral 11/04/2017 Active ALPRAZolam 1 MG Tablet TAKE 1 TABLET EVERY 12 HOURS NEEDED. Oral Active levETIRAcetam 1000 MG Tablet Oral 02/17/2017 Active predniSONE 20 MG Tablet Oral 05/23/2017 Active levETIRAcetam 500 MG Tablet Oral 02/11/2017 Active Lasix 40 MG Tablet TAKE 1 TABLET DAILY. Oral Active Allopurinol 300 MG Tablet Oral 03/02/2017 Active Ibuprofen 600 MG Tablet Oral 08/23/2019 Active Potassium Chloride 10 MEQ Tablet Extended Release TAKE 1 TABLET DAILY WITH FOOD. Oral *please review for potential update for e-prescription and drug interaction check* Active Phenytoin Sodium Extended 100 MG Capsule Oral 03/02/2017 Acti ve PEG 3350-KCl-Na Bicarb-NaCl 420 GM Solution Reconstituted Oral 05/06/2017 Activ e Pantoprazole Sodium 40 MG Tablet Delayed Release Oral 01/11/2018 Active Acetaminophen-Codeine #3 300-30 MG Tablet TK 1 T PO Q 6 H PRN P Oral 08/23/2017 Active oxyCODONE-Acetaminophen 7.5-325 MG Tablet Oral 09/21/2019 Active oxyCODONE-Acetaminophen 10-325 MG Tablet Oral 03/23/2017 Active Ondansetron HCl 4 MG Tablet Oral 11/25/2018 Active Ondansetron 4 MG Tablet Disintegrating Oral 04/06/2017 Active HYDROcodone-Acetaminophe n 5-325 MG Tablet Oral 07/08/2017 Active Potassium Chloride ER 10 MEQ Tablet Extended Release Oral 01/20/2018 Active HYDROcodone-Acetaminophe n 10-325 MG Tablet Oral 06/15/2017 Active Methotrexate Sodium (PF) 50 MG/2ML Solution Injection 02/03/2018 Active Plan Of Treatment No Information Insurance Providers Payer Name Payer Address Payer Phone Subscriber Number Group Number Insured Name Patient Relationship to Insured Coverage Start Date Coverage End Date Medicare [place] MC01 [address] [place] [address] [id number] BARRY VAN Self - patient is the insured Medical (General) History Surgical History Surgery Date(Month/Year) Hysterectomy ,Status : Resolved Breast Surgery ,Status : Resolved Gastric Surgery ,Status : Resolved Eye Surgery ,Status : Resolved Cholecystectomy ,Status : Resolved Appendectomy ,Status : Resolved Foot Surgery ,Status : Resolved Cataract Surgery ,Status : Resolved
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
--- OUTSIDE RECORDS SUMMARY | 2024-10-23 14:49 | XMS_ITS | Patient Health Record ---
Author Organization [facility] D[facility] Address [address] [place] [address] Care Team Providers Care Thermoforming Operator Name Role Phone VeeMadeline myersne Primary Care Provider El Brewer [phone] Allergies Allergen (clinical drug ingredient) Drug/Non Drug Allergy documented on EMR Reaction Allergy Type Onset Date Status IV Contrast (uncoded) Uticaria Allergy Active diphenhydramine Benadryl Hyperactivity Drug Allergy Active amitriptyline Amitriptyline Hyperactivity Drug Allergy Active Reason For Referral No Information Medications Medication SIG (Take, Route, Frequency, Duration) Notes Start Date End Date Status clonazePAM 0.5 MG 1 tablet by mouth tw ice a day as needed; Duration: 30 days Active Atorvastatin Calcium 40 MG 1 tablet by m outh once a day; Duration: 90 days Active Potassium Chloride ER 20 MEQ 1 tablet with a meal by mouth twice a day; Duration: 90 days Active Furosemide 80 MG 1 TABLET EVERY MORNI NG BY MOUTH ONCE A DAY; Duration: 90 Active Baclofen 5 MG 1 tablet as needed b y mouth Once a day Active oxyCODONE-Acetaminophen 5-325 MG 1 tablet by mouth every 6 hrs as needed Active Vitamin B-12 1000 MCG 1 tablet by mouth once a day; Duration: 30 day(s) 12/05/2020 Active rOPINIRole HCl 5 MG 1 TABLET BY MOUTH TH REE TIMES A DAY 30 DAYS by mouth every night, 1-3 hours before bedtime; Duration: 30 day(s) Active Gabapentin 300 MG 1 capsule by mouth t hree times a day Active Methotrexate 20 MG/0.8ML 0.8 Subcutaneou s once a month 10/25/2020 Active Social History Tobacco Use: Social History Observation Description Date Details (start date - stop date) Former Smoker NA - NA Tobacco Use/Smoking Question Answer Notes Are you a former smoker Problems Problem Type SNOMED Code ICD Code Onset Dates Problem Status W/U Status Risk Notes Problem Shortness of breath (576992663) Shortness of breath (R06.02) Active confirmed Problem Anxiety (09580274) Anxiety (F41.9) Active confirmed Problem Abnormal PFT: MV V reduced disproportionate to FEV1 (R94.2) Active confirmed Problem Peripheral edema (83363768) Peripheral edema (R60.9) Active confirmed Problem Restless legs syndrome (62226743) Restless leg syndrome (G25.81) Active confirmed Problem Pulmonary hypertension (38687133) Pulmonary hypertension (I27.20) Active confirmed Problem Benign neoplasm of cerebral meninges (28166326) Meningioma (D32.9) Active confirmed Problem Hypokalemia (73370766) 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) Active confirmed Problem 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 Plan Of Treatment Pending Test Test Name Order Date JAMES IFA SCREEN W/REFL TO KENY CABRALES, DAYANA 10/25/2020 Split Night Sleep Study 10/25/2020 Split Night Sleep Study 11/28/2020 Split Night Sleep Study 02/18/2021 Split Night Sleep Study 06/18/2021 MRI Brain with and without IV contrast 0 11/28/2020 Insurance Providers Payer Name Payer Address Payer Phone Subscriber Number Group Number Insured Name Patient Relationship to Insured Coverage Start Date Coverage End Date [employer] [place] [employer] [address] [address] [place], [place] [id number] [phone] [id number] Tosha Perry Self - [place] [address] [phone] [id number] Tosha Perry Self - patient is the insured Medical (General) History Medical History History ICD Code Allergies (seasonal type) Anemia Bronchiectasis Congestive heart failure (CHF) Glaucoma Gastroesophageal reflux disease (GERD) Hypothyroidism Hyperlipidemia Hypertension History of tobacco use Meningioma, right parietal lobe, with ri ght-sided hearing loss Pulmonary hypertension ? Pneumonia Restless leg syndrome Rheumatoid arthritis (RA) Surgical History Surgery Date(Month/Year) Appendectomy Cholecystectomy Hysterectomy Hospitalization History Reason Date(Month/Year) [facility]: Dysuria 01/2021
--- NOTE | 2024-10-23 15:04 | W.ED.SEIZURE ---
HPI - Seizure General: Chief Complaint: Seizure Stated Complaint: seizure activity Time Seen by Provider: 10/23/24 14:42 Source: patient, family and EMS Mode of arrival: EMS Limitations: no limitations History of Present Illness: HPI Narrative: 69-year-old female has been having episodes of jerking and tonic-clonic like movements over the last 3 to 4 weeks she had recently been admitted at [facility] for the same. Primus patient was having those episodes today with some unresponsiveness patient currently is awake does have some jerking states she is having some slight chest pain and headaches as well. She denies any fevers denies any vomiting. Seizure History: No Associated symptoms: Reports chest pain; Deny chills or fever(s) Related Data Home Medications ?Medication ?Instructions ?Recorded ?Confirmed promethazine 12.5 mg tablet 12.5 mg PO BID PRN Nausea 05/04/23 09/07/24 baclofen 10 mg tablet 10 mg PO Q6H PRN Muscle Spasm 06/14/23 09/07/24 fluticasone propionate 50 1 spray intranasal BID 09/27/23 09/07/24 mcg/actuation nasal spray,suspension furosemide 40 mg tablet 40 mg PO DAILY PRN Edema 09/27/23 09/07/24 gabapentin 300 mg capsule 300 mg PO TID 09/27/23 09/07/24 brinzolamide 1 %-brimonidine 0.2 % 1 drp ophthalmic (eye) BID 11/18/23 09/07/24 eye drops,suspension (Simbrinza) potassium bicarbonate-citric acid 20 meq PO DAILY PRN WHILE TAKING 11/18/23 09/07/24 20 mEq effervescent tablet LASIX (Effer-K) naloxegol 12.5 mg tablet (Movantik) 12.5 mg PO QAM 12/29/23 09/07/24 oxycodone 10 mg tablet 10 mg PO Q8H PRN Pain 12/29/23 09/07/24 Previous Rx's ?Medication ?Instructions ?Recorded levothyroxine 112 mcg tablet 112 mcg PO QAM low thyroid #90 tabs 10/15/22 Bone growth stimulator #1 ea 01/22/23 Bone growth stimulator #1 ea 02/05/23 ropinirole 5 mg tablet 5 mg PO TID #270 tabs 08/10/23 tens unit for cervical #1 ea 12/16/23 albuterol sulfate 90 mcg/actuation 1 puff inhalation Q6H PRN 12/20/23 aerosol inhaler Shortness Of Breath #6.7 grams pantoprazole 40 mg tablet,delayed 40 mg PO BID #60 tabs 12/30/23 release fluticasone furoate 100 1 inh inhalation DAILY #60 ea 12/31/23 mcg-vilanterol 25 mcg/dose inhalation powder (Breo Ellipta) folic acid 1 mg tablet 1 mg PO DAILY PRN Edema #90 tabs 02/09/24 prednisone 20 mg tablet See Rx Instructions PO .COMPLEX 02/09/24 PRN joint pain flare #30 tabs insulin syringes (disposable) 1 mL #25 ea 05/30/24 methotrexate sodium 25 mg/mL 20 mg (0.8 mL) SUBCUT .Q7days #10 05/30/24 injection solution mL Allergies Allergy/AdvReac Type Severity Reaction Status Date / Time ibuprofen Allergy Unknown ADR-Anxiety Verified 09/23/24 04:24 tizanidine Allergy Unknown Unknown Verified 09/23/24 04:24 acetaminophen Allergy ADR-Anxiety Verified 09/23/24 04:24 amitriptyline Allergy ADR-Agitate Verified 09/23/24 04:24 d diphenhydramine (From Allergy ADR-Agitate Verified 09/23/24 04:24 Benadryl) d morphine Allergy ADR-Halluci Verified 09/23/24 04:24 nating prochlorperazine (From Allergy Unknown Verified 09/23/24 04:24 Compazine) leflunomide AdvReac Intermediate GI adverse Verified 09/23/24 04:24 reactions sulfasalazine AdvReac Intermediate ADR-Nausea Verified 09/23/24 04:24 and acid reflux Review of Systems Const: Denies: fever(s), chills, body aches or change in appetite Eyes: Denies: blurry vision or eye discomfort ENMT: Denies: throat pain or dental pain Card: Reports: chest pain Resp: Denies: dyspnea GI: Denies: abdominal pain, nausea, vomiting or diarrhea Musc: Denies: neck pain or back pain Skin/Breast: Denies: rash Neuro: Reports: headache(s) PFS ED PFSH: Medical History (Updated 10/23/24 @ 21:26 by Coral Oconnor MD) DVT (deep venous thrombosis) Acute GI bleeding History of deep vein thrombosis GERD (gastroesophageal reflux disease) Pre-operative clearance Pneumonia Acute anemia Hematoma complicating a procedure Cervical adenopathy GI bleed Osteoarthritis, shoulder Cervical spondylosis with myelopathy GERD with esophagitis Allergic rhinitis due to allergen RLS (restless legs syndrome) Substance or medication-induced sleep disorder, insomnia type Anxiety and depression High risk medication use Seropositive rheumatoid arthritis of multiple sites Extrapyramidal and movement disorder CKD (chronic kidney disease) stage 3, GFR 30-59 ml/min Lung nodule, solitary Prediabetes Hyperlipidemia Iron deficiency anemia Hypothyroidism Surgical History S/P insertion of IVC (inferior vena caval) filter Status post cervical spinal fusion History of cholecystectomy History of appendectomy History of delivery History of hysterectomy with bilateral oophorectomy History of ankle surgery left Previous back surgery Social History Smoking and tobacco/nicotine status: former use of tobacco/nicotine Quit status (tobacco/nicotine): has quit using Year quit tobacco: 2009 Former quit date comment: Smoked for 9 months Alcohol intake: current Alcohol intake frequency: holidays/special occasions only Substance/Drug Use: never Physical Exam Const: COMMON NORMALS: no acute distress, patient oriented x3 and healthy appearing HENMT: COMMON NORMALS: normocephalic and atraumatic HEAD & SCALP: normocephalic and atraumatic Eye: COMMON NORMALS: Equal, round and reactive pupils present and EOMs intact bilaterally PUPIL: Yes Equal, round and reactive pupils present Neck/C-Spine: COMMON NORMALS: full ROM and supple Chest: COMMONS NORMALS: normal inspection of the chest and normal palpation of entire chest wall Resp: COMMON NORMALS: normal respiratory effort, No retractions, No use of accessory muscles and clear to auscultation bilaterally AUSCULTATION: clear to auscultation bilaterally Cardio: COMMON NORMALS: regular rate, regular rhythm and No murmurs present (Cardio) RATE: regular rate RHYTHM: regular rhythm GI: COMMON NORMALS: Normal to inspection, nondistended, normoactive bowel sounds present, Soft to palpation, non-tender and no masses PALPATION: Yes Soft to palpation Extremity: COMMON NORMALS: normal to inspection and full ROM Neuro: COMMON NORMALS: patient oriented x3, moves all extremities and no focal motor deficits Psych: COMMON NORMALS: mental status grossly normal, Normal thought process present and cooperative THOUGHT PROCESS: Normal thought process present Skin: COMMON NORMALS: no rashes or lesions noted and no wounds GENERAL SKIN EXAM: no rashes or lesions noted Course Vital Signs: Vital signs: Vital Signs Temperature 98.4 F 10/23/24 14:44 Pulse Rate 45 L 10/23/24 21:17 Respiratory Rate 16 10/23/24 20:49 Blood Pressure 105/55 10/23/24 20:49 Pulse Oximetry 92 10/23/24 20:49 Oxygen Delivery Me thod Room Air 10/23/24 17:44 MDM - Seizure MDM Narrative Medical decision making narrative: Patient presents here with syncopal events also having some generalized weakness. She has had some tremors here no seizure-like activity spoke to hospitalist will admit for her syncopal events. Lab Data 10/23/24 15:41 10/23/24 15:41 Labs: Radiology Impressions Chest X-Ray 10/23/24 14:42 IMPRESSION: Stable chest without acute abnormality. Head CT 10/23/24 14:42 IMPRESSION: No acute intracranial abnormality. Laboratory Results WBC 5.18 10^3/uL (3.29-11.43) 10/23/24 15:41 RBC 3.71 10^6/uL (3.85-5.65) L 10/23/24 15:41 Hgb 9.90 g/dL (11.27-16.99) L 10/23/24 15:41 Hct 31.5 % (36-47) L 10/23/24 15:41 MCV 84.9 fl (85-98) L 10/23/24 15:41 MCH 26.7 pg (27-33) L 10/23/24 15:41 MCHC 31.4 g/dL (30-55) 10/23/24 15:41 RDW 19.0 % (12.1-15.1) H 10/23/24 15:41 Plt Count 255 10^3/cmm (157-399) 10/23/24 15:41 MPV 9.5 fL (7.4-10.4) 10/23/24 15:41 Neut % (Auto) 65.7 % 10/23/24 15:41 Lymph % (Auto) 21.0 % 10/23/24 15:41 [place] % (Auto) 8.3 % 10/23/24 15:41 Eos % (Auto) 4.2 % 10/23/24 15:41 Baso % (Auto) 0.4 % 10/23/24 15:41 Neut # (Auto) 3.40 10^3/uL (1.8-7.7) 10/23/24 15:41 Lymph # (Auto) 1.1 10^3/uL (0.8-4.8) 10/23/24 15:41 [place] # (Auto) 0.4 10^3/uL (0.2-0.9) 10/23/24 15:41 Eos # (Auto) 0.2 10^3/uL (0.0-0.8) 10/23/24 15:41 Baso # (Auto) 0.0 10^3/uL (0.0-0.1) 10/23/24 15:41 Nucleated RBC % (auto) 0 % 10/23/24 15:41 Nucleated RBCs # 0.0 /100WBC 10/23/24 15:41 Sodium 142 mmol/L (136-145) 10/23/24 15:41 Potassium 3.5 mmol/L (3.5-5.1) 10/23/24 15:41 Chloride 100 mmol/L (98-107) 10/23/24 15:41 Carbon Dioxide 26 mmol/L (22-29) 10/23/24 15:41 Anion Gap 19.5 (5-19) H 10/23/24 15:41 BUN 21 mg/dL (8-23) 10/23/24 15:41 Creatinine 1.3 mg/dL (0.5-0.9) H 10/23/24 15:41 GFR Calculation 40.5 mL/min (90-130) L 10/23/24 15:41 Glucose 111 mg/dL (65-115) 10/23/24 15:41 POC Glucose 123 mg/dL (70-110) H 10/23/24 16:06 Calculated Osmolality 298 mOsm/kg (285-295) H 10/23/24 15:41 Calcium 9.6 mg/dL (8.5-10.5) 10/23/24 15:41 Magnesium 2.4 mg/dL (1.7-2.3) H 10/23/24 15:41 Total Bilirubin 0.3 mg/dL (0.15-1.2) 10/23/24 15:41 AST 28 U/L (0-32) 10/23/24 15:41 ALT 15 U/L (0-33) 10/23/24 15:41 Alkaline Phosphatase 156 U/L (35-105) H 10/23/24 15:41 Troponin T Baseline 13 ng/L (0-10) H 10/23/24 15:41 Troponin T 120 Minute 11.83 ng/L (0-10) H 10/23/24 17:31 Delta Troponin T -1.17 ABS# (0-10) L 10/23/24 17:31 Total Protein 7.4 g/dL (6.6-8.7) 10/23/24 15:41 Albumin 4.3 g/dL (3.5-5.2) 10/23/24 15:41 Globulin 3.1 g/dL (1.3-4.6) 10/23/24 15:41 Urine Color Yellow (Yellow) 10/23/24 16:20 Urine Appearance Clear (CLEAR) 10/23/24 16:20 Urine pH 6.5 (5-7) 10/23/24 16:20 Ur Specific [place] 1.015 (1.005-1.030) 10/23/24 16:20 Urine Protein Trace (Negative) A 10/23/24 16:20 Urine Glucose (UA) Negative (Normal) 10/23/24 16:20 Urine Ketones Negative (Negative) 10/23/24 16:20 Urine Blood Negative (Negative) 10/23/24 16:20 Urine Nitrate Negative (Negative) 10/23/24 16:20 Urine Bilirubin Negative (Negative) 10/23/24 16:20 Urine Urobilinogen 0.2 mg/dL (Negative) 10/23/24 16:20 Ur Leukocyte Esterase Negative (Negative) 10/23/24 16:20 Urine RBC 0-2 /hpf (0-2) 10/23/24 16:20 Urine WBC 0-5 /hpf (0-5) 10/23/24 16:20 Ur Squamous Epith Cells 0-5 /hpf (0-5) 10/23/24 16:20 Amorphous Sediment Not Reportable 10/23/24 16:20 Urine Bacteria None seen /hpf (NONE) 10/23/24 16:20 Hyaline Casts 4.95 /lpf 10/23/24 16:20 All radiology interpretation(s) finalized by discharge EKG Data EKG 1: Attestation: I personally reviewed and interpreted this EKG as follows: EKG interpretation date: 10/23/24 EKG interpretation time: 15:08 Interpretation: sinus paige hr [address] elevation qrs 86 qtc 405 Discharge Plan Discharge Patient Disposition: Admitted As Inpatient Clinical Impression: Syncope Condition: Stable Discharge Diet: Advance as tolerated Discharge Activity: Resume usual activity Coding Level of Care Code ED Human Services Program Specialist for Maribel Sweet
--- NOTE | 2024-10-23 15:08 | ECG_ITS ---
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 Measurements Intervals [place] Rate: 56 P: 71 [place]: 174 QRS: 27 QRSD: 86 T: 52 QT: 412 QTc: 401 Interpretive Statements SINUS BRADYCARDIA MINIMAL ST DEPRESSION [0.025+ mV ST DEPRESSION] Compared to ECG 08/03/2024 21:55:36 ST (T wave) deviation now present Sinus rhythm no longer present Heavy baseline artifacts; Need to repeat the study. Electronically Signed On 10-24-2024 09:50:41 CDT by Sherine Greene M.D. [email or web address]
[2024-10-23 15:52] LABS: Hematocrit 31.5 % (36-47); Hemoglobin 9.90 g/dL (11.27-16.99); Mean Corpuscular HGB Conc 31.4 g/dL (30-55); Mean Corpuscular Hemoglobin 26.7 pg (27-33); Mean Corpuscular Volume 84.9 fl (85-98); Nucleated Red Blood Cells % 0 %; Platelet Count 255 10^3/cmm (157-399); Red Blood Count 3.71 10^6/uL (3.85-5.65); White Blood Count 5.18 10^3/uL (3.29-11.43)
[2024-10-23 16:19] LABS: Alanine Aminotransferase 15 U/L (0-33); Albumin Level 4.3 g/dL (3.5-5.2); Alkaline Phosphatase 156 U/L (35-105); Anion Gap 19.5 (5-19); Aspartate Amino Transferase 28 U/L (0-32); Blood Urea Nitrogen 21 mg/dL (8-23); Calcium 9.6 mg/dL (8.5-10.5); Carbon Dioxide 26 mmol/L (22-29); Chloride 100 mmol/L (98-107); Creatinine Clr Calc Pharmacy 38.4879; Globulin 3.1 g/dL (1.3-4.6); Glucose 111 mg/dL (65-115); Magnesium 2.4 mg/dL (1.7-2.3); Osmolality Calculated 298 mOsm/kg (285-295); Potassium 3.5 mmol/L (3.5-5.1); Sodium 142 mmol/L (136-145); Total Protein 7.4 g/dL (6.6-8.7)
[2024-10-23 16:21] LABS: Troponin(5th) Baseline 13 ng/L (0-10)
[2024-10-23 16:33] LABS: Glucose Urine UA Negative (Normal); Nitrate Urine Negative (Negative); Specific Gravity, Urine 1.015 (1.005-1.030)
[2024-10-23 16:38] LABS: Add Urine Microscopic? YES
[2024-10-23] MEDS: HYDROmorphone 0.5 MG/0.5 ML INJ IVP (17:44)
--- NOTE | 2024-10-23 17:44 | ECG_ITS ---
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 Measurements Intervals [place] Rate: 54 P: 56 [place]: 168 QRS: 24 QRSD: 97 T: 44 QT: 470 QTc: 449 Interpretive Statements SINUS BRADYCARDIA Compared to ECG 10/23/2024 15:08:38 ST (T wave) deviation no longer present Electronically Signed On 10-24-2024 15:02:42 CDT by Chava Mckinley M.D. [email or web address]
[2024-10-23 17:59] LABS: Troponin 5 2HR 11.83 ng/L (0-10)
[2024-10-23 18:02] LABS: Troponin 5 2HR Delta -1.17 ABS# (0-10)
--- NOTE | 2024-10-23 20:09 | PM.HP ---
Providers/Chief Complaint Primary Care Provider: iDana Garcia Chief Complaint: seizure activity History of Present Illness Tosha Perry is a 69 year old patient with chronic kidney disease, prediabetes, hyperlipidemia, prior DVT, anemia, GERD, allergic rhinitis, anxiety/depression, seropositive rheumatoid arthritis, hypothyroidism, and restless leg syndrome presenting after several weeks of intermittent jerking episodes, light-headedness, and a collapse after showering today (while sitting up on a couch). They report new right-sided chest pain described as ?an elephant sitting,? worsened by deep inspiration and associated with cough producing brown sputum. The patient also endorses an excruciating headache, dry heaves, and prior dark-malodorous urine though current urinalysis is clear. Recent admission at [facility] evaluated similar events. CT head today is normal. Chest X-ray is without acute abnormality. Initial vitals: BP 122/76 mmHg, HR 48 bpm, T 98.4 ?F, SpO? 98% on room air. Labs: Hb 9.9 g/dL, creatinine 1.3 mg/dL, potassium 3.5 mEq/L, Alk Phos 156 U/L, remainder unremarkable. Home alprazolam (0.5 mg q8h) was stopped 48 h ago; the patient normally takes oxycodone for pain. They deny current alcohol use and quit smoking five years ago (previously ~1 pack every three weeks). Review of Systems Const: Denies: fever(s), chills, body aches or malaise ENMT: Denies: throat pain Card: Reports: chest pain; Denies: edema, pre-syncope or dyspnea on exertion Resp: Reports: dyspnea, productive cough and change in phlegm color; Denies: hemoptysis GI: Reports: nausea and other (Dry heaving); Denies: abdominal pain, vomiting, diarrhea, constipation, hematochezia or melena : Denies: flank pain, urinary frequency or hematuria Musc: Denies: back pain, joint swelling or joint redness Skin/Breast: Denies: rash or new lesions Neuro: Reports: headache(s) and involuntary movements; Denies: confusion Medications/Allergies Home Medications ?Medication ?Instructions ?Recorded ?Confirmed ?Last Taken ?Type levothyroxine 112 mcg tablet 112 mcg PO QAM low thyroid #90 tabs 10/15/22 09/07/24 12/29/23 Rx Bone growth stimulator #1 ea 01/22/23 09/07/24 Unknown Rx Bone growth stimulator #1 ea 02/05/23 09/07/24 Unknown Rx promethazine 12.5 mg tablet 12.5 mg PO BID PRN Nausea 05/04/23 09/07/24 10/14/23 History baclofen 10 mg tablet 10 mg PO Q6H PRN Muscle Spasm 06/14/23 09/07/24 10/15/23 History ropinirole 5 mg tablet 5 mg PO TID #270 tabs 08/10/23 09/07/24 12/29/23 Rx fluticasone propionate 50 1 spray intranasal BID 09/27/23 09/07/24 12/29/23 History mcg/actuation nasal spray,suspension furosemide 40 mg tablet 40 mg PO DAILY PRN Edema 09/27/23 09/07/24 10/14/23 History gabapentin 300 mg capsule 300 mg PO TID 09/27/23 09/07/24 12/29/23 History brinzolamide 1 %-brimonidine 0.2 % 1 drp ophthalmic (eye) BID 11/18/23 09/07/24 12/29/23 History eye drops,suspension (Simbrinza) potassium bicarbonate-citric acid 20 meq PO DAILY PRN WHILE TAKING 11/18/23 09/07/24 Unknown History 20 mEq effervescent tablet LASIX (Effer-K) tens unit for cervical #1 ea 12/16/23 09/07/24 Unknown Rx albuterol sulfate 90 mcg/actuation 1 puff inhalation Q6H PRN 12/20/23 09/07/24 Unknown Rx aerosol inhaler Shortness Of Breath #6.7 grams naloxegol 12.5 mg tablet (Movantik) 12.5 mg PO QAM 12/29/23 09/07/24 12/29/23 History oxycodone 10 mg tablet 10 mg PO Q8H PRN Pain 12/29/23 09/07/24 12/29/23 History pantoprazole 40 mg tablet,delayed 40 mg PO BID #60 tabs 12/30/23 09/07/24 Unknown Rx release fluticasone furoate 100 1 inh inhalation DAILY #60 ea 12/31/23 09/07/24 Unknown Rx mcg-vilanterol 25 mcg/dose inhalation powder (Breo Ellipta) folic acid 1 mg tablet 1 mg PO DAILY PRN Edema #90 tabs 02/09/24 09/07/24 Unknown Rx prednisone 20 mg tablet See Rx Instructions PO .COMPLEX 02/09/24 09/07/24 Unknown Rx PRN joint pain flare #30 tabs insulin syringes (disposable) 1 mL #25 ea 05/30/24 09/07/24 Unknown Rx methotrexate sodium 25 mg/mL 20 mg (0.8 mL) SUBCUT .Q7days #10 05/30/24 09/07/24 Unknown Rx injection solution mL Allergies Allergy/AdvReac Type Severity Reaction Status Date / Time ibuprofen Allergy Unknown ADR-Anxiety Verified 09/23/24 04:24 tizanidine Allergy Unknown Unknown Verified 09/23/24 04:24 acetaminophen Allergy ADR-Anxiety Verified 09/23/24 04:24 amitriptyline Allergy ADR-Agitate Verified 09/23/24 04:24 d diphenhydramine (From Allergy ADR-Agitate Verified 09/23/24 04:24 Benadryl) d morphine Allergy ADR-Halluci Verified 09/23/24 04:24 nating prochlorperazine (From Allergy Unknown Verified 09/23/24 04:24 Compazine) leflunomide AdvReac Intermediate GI adverse Verified 09/23/24 04:24 reactions sulfasalazine AdvReac Intermediate ADR-Nausea Verified 09/23/24 04:24 and acid reflux PFSH Acute PFSH: Medical History DVT (deep venous thrombosis) Acute GI bleeding History of deep vein thrombosis GERD (gastroesophageal reflux disease) Pre-operative clearance Pneumonia Acute anemia Hematoma complicating a procedure Cervical adenopathy GI bleed Osteoarthritis, shoulder Cervical spondylosis with myelopathy GERD with esophagitis Allergic rhinitis due to allergen RLS (restless legs syndrome) Substance or medication-induced sleep disorder, insomnia type Anxiety and depression High risk medication use Seropositive rheumatoid arthritis of multiple sites Extrapyramidal and movement disorder CKD (chronic kidney disease) stage 3, GFR 30-59 ml/min Lung nodule, solitary Prediabetes Hyperlipidemia Iron deficiency anemia Hypothyroidism Surgical History S/P insertion of IVC (inferior vena caval) filter Status post cervical spinal fusion History of cholecystectomy History of appendectomy History of delivery History of hysterectomy with bilateral oophorectomy History of ankle surgery left Previous back surgery Social History Smoking and tobacco/nicotine status: former use of tobacco/nicotine Quit status (tobacco/nicotine): has quit using Year quit tobacco: 2009 Former quit date comment: Smoked for 9 months Alcohol intake: current Alcohol intake frequency: holidays/special occasions only Substance/Drug Use: never Vitals/I&O/Wt Last Vital Signs Temp 98.4 F 10/23/24 14:44 Pulse 48 L 10/23/24 19:20 Resp 18 10/23/24 19:20 BP 122/76 10/23/24 19:20 Pulse Ox 98 10/23/24 19:20 O2 Del Method Room Air 10/23/24 17:44 10/23/24 10/23/24 10/23/24 06:59 14:59 22:59 Intake Total 1000 / 1000 Balance 1000 / 1000 Weight last 48 hrs Weight 62.414 kg Physical Exam Narrative: Accompanied by her Const: COMMON NORMALS: patient oriented x3 GENERAL APPEARANCE: cooperative ORIENTATION/CONSCIOUSNESS: Yes awake OTHER: Response with eyes closed. Shifting about in bed, trying to find a comfortable position. Intermittently holding onto the right side lower chest wall. HENMT: COMMON NORMALS: oropharynx normal Neck/C-Spine: COMMON NORMALS: no JVD Resp: COMMON NORMALS: normal respiratory effort and clear to auscultation bilaterally AUSCULTATION: clear to auscultation bilaterally Cardio: COMMON NORMALS: no JVD, regular rhythm, S1 normal heart sound present, S2 normal heart sound present and No murmurs present (Cardio) RHYTHM: regular rhythm HEART SOUNDS: S1 normal heart sound present and S2 normal heart sound present GI: COMMON NORMALS: Normal to inspection, nondistended, normoactive bowel sounds present, Soft to palpation and non-tender PALPATION: Yes Soft to palpation Extremity: COMMON NORMALS: no joint enlargement and no pedal edema Neuro: COMMON NORMALS: patient oriented x3 and moves all extremities SENSORIUM/ORIENTATION: Yes alert OTHER: Reviewed briefly with eyes closed falling asleep versus unresponsive, waking up shortly after with a single jerk of both arms. Responding right afterward. Heart rate on the monitor with sinus bradycardia without any pauses. Blood pressure varying between 115 and 96 systolic. Skin: COMMON NORMALS: no rashes or lesions noted GENERAL SKIN EXAM: no rashes or lesions noted Data 10/23/24 15:41 10/23/24 15:41 A&P Assessment and plan 1. Syncope and collapse: Recurrent light-headedness with standing/walking; BP 122/76 but bradycardic at 48 bpm; plan to assess for orthostatic hypotension and cardiac causes. Reviewed vitals, CBC, CMP, magnesium, troponin, UA, chest x-ray, head CT, EKG, ED provider note, discussed with ED provider. - Obtain orthostatic vital signs (lying, sitting, standing). - Repeat ECG and monitor telemetry. Complete troponin series. - Echocardiogram ordered to evaluate cardiac function. -Further assessment with D-dimer as below with history of DVT. - Requested records to be obtained from recent hospitalization at [facility] with discharge last Wednesday. - Fall precautions, bedrest to start pending further evaluation and reassessment. 2. Jerking movements of extremities: Episodes of jerking movements of the arms some episodes of unresponsiveness. Recent hospitalization, possible but patient has been stated these were unaddressed. She was started on a psychiatric medication for her anxiety at that time. However, she also states that she used to be consistently taking Xanax 0.5 mg 3 times daily but stopped 48 hours ago. Possible medication related encephalopathy versus withdrawal from Xanax. Brief episode in the ER with eyes closed woke up and had a single jerk of both arms. No pause on telemetry at the time. Blood pressure varying between left and systolic and 96 systolic. Resume Xanax at a lower dose 0.25 mg twice daily. Monitor CIWA protocol. Long-term will benefit from weaning down and off of Xanax as per discussion of risks of continued benzodiazepine especially in conjunction with opioid (she takes oxycodone), including risk of respiratory depression, risk of tolerance, dependence, withdrawal, other complications. This does not appear like seizure, but in case of very frequent or protracted episodes consider EEG. - Observe overnight on telemetry. - Review current/home medications for pro-convulsant effects. 3. Right-sided chest pain: Right-sided chest pain, rule out pulmonary embolism : Pleuritic right-sided pain in patient with prior DVT; cough with brown sputum; chest X-ray normal; PE considered. - Ordered D-dimer. - If D-dimer elevated, proceed to CT chest with contrast to evaluate for PE question with her and her . - Viral swab if infectious etiology suspected. With possible bronchitis will add flutter block, expectorant with Mucinex. No evidence for pneumonia. Rib injury/chest wall pain : Pain over right rib cage after recent fall; worsened with deep breaths; no obvious fracture on X-ray. - Apply lidocaine patch to affected area. - Provide incentive spirometer and instruct use every hour (goal >=200?300 mL) to prevent hypoventilation and pneumonia. - Resume home oxycodone for analgesia; avoid acetaminophen due to intolerance. 4. Severe headache: Excruciating headache; CT head negative; partial relief with ED medication. - She is intolerant of acetaminophen due to worsening restless leg syndrome. Continue analgesia with oxycodone as needed. - Monitor neurological status; reassess if headache worsens or focal deficits develop. 5. Benzodiazepine dependence: Home alprazolam 0.5 mg TID stopped 48 h ago; risk of withdrawal-related symptoms including seizures. - Restart alprazolam at a reduced dose (exact taper to be determined) to mitigate withdrawal. - Develop gradual taper schedule and coordinate with outpatient provider. 6. Chronic pain: Baseline pain managed with oxycodone at home; currently acute exacerbation due to rib injury. - Resume home oxycodone dosing while inpatient with monitoring. - Avoid combination with high-dose benzodiazepines; school adjustment counselor on risks. 7. Anemia: Baseline Hb 9.9 g/dL; prior iron therapy for presumed deficiency; etiology likely chronic disease with prior GI bleed. - Trend CBC during hospitalization. - Obtain records from [facility]. Patient reports that she has previously had upper and lower endoscopy done at [facility] within the last year. She had finding of several ulcers. Plan: History of biliary stent placed at [facility] one of the prior hospitalizations. Reviewed CMP, noted mild elevation of alk phos. Repeat. Will need to follow-up. Chest pain appears to be at the right side chest wall over the rib cage, reproducible with tenderness on even gentle palpation, more likely related to syncope and collapse possibly cough. Repeat CMP. Sinus bradycardia: Monitor on telemetry. She denies any jaz blocking medications. Avoid. PDMP PDMP Reviewed: Not Reviewed Attestations Medical Necessity Statement*: Place in observation for additional assessment management of episodes of unresponsiveness/syncope, collapse, jerking movements, right-sided chest pain, possible medication withdrawal, additional medical problems as above. and High MDM includes amount and/or complexity of data reviewed/ordered [ previous or external records, resulted lab(s)/test(s), ordered lab(s)/test(s), independent historian and other healthcare professional discussion] and described risk of complication, morbidity or mortality of management as documented Diagnoses Syncope and collapse R55 Jerking movements of extremities R25.2 Right-sided chest pain R07.9 Severe headache R51.9 Benzodiazepine dependence F13.20 Chronic pain G89.29 Anemia D64.9
--- NOTE | 2024-10-23 20:22 | USCV_ITS ---
Tosha Perry Age: 69 Gender: F : 1955 Exam Date: 10/23/2024 22:10 Ordering Phys: Perico Gonzalez MD Technologist: LAILA [place] [facility] [place]: syncopal episodes, chest pain BP: 122 / 76 HR: 47 Rhythm: Sinus bradycardia Technical Quality: Adequate MEASUREMENTS (Male / Female) Normal Values 2D ECHO LV Diastolic Diameter PLAX 3.6 cm 4.2 - 5.9 / 3.9 - 5.3 cm IVS Diastolic Thickness 1.3 cm 0.6 - 1.0 / 0.6 - 0.9 cm IVS Systolic Thickness 1.8 cm LVPW Diastolic Thickness 1.4 cm 0.6 - 1.0 / 0.6 - 0.9 cm LVPW Systolic Thickness 1.3 cm LVOT Diameter 1.8 cm LV Ejection Fraction 2D Teich 67.2 % LV Ejection Fraction MOD 4C 60.4 % LV Ejection Fraction MOD 2C 65.2 % LV Ejection Fraction 2C AL 65.7 % LA Diameter 3.5 cm Aorta at Sinotubular Diameter 2.8 cm IVC Diameter 2.1 cm M-MODE LA Ao Ratio MM 1.2 AV Cusp Separation MM 1.7 cm DOPPLER AV Peak Velocity 169.0 cm/s LVOT Peak Velocity 110.0 cm/s AV Area Cont Eq vti 1.7 cm squared AV Area Cont Eq pk 1.6 cm squared MV Peak Velocity 128.0 cm/s MV Area PHT 3.3 cm squared Mitral E to A Ratio 1.3 TV Peak Velocity 267.5 cm/s TR Peak Velocity 274.0 cm/s TR Peak Gradient 30.0 mmHg TV Peak E Velocity 53.0 cm/s PV Peak Velocity 95.0 cm/s FINDINGS Left Ventricle Normal left ventricular size and systolic function, EF 60%mild left ventricular hypertrophy. No regional wall motion abnormalities. Grade III/IV diastolic dysfunction (restrictive filling pattern), severely elevated filling pressures. Right Ventricle The right ventricle is normal in size and function. Right Atrium The right atrium is normal in size. Left Atrium Mildly increased left atrial size. Mitral Valve Thickened mitral valve. Mild mitral annular calcification. Aortic Valve Thickened aortic valve. Tricuspid Valve Mild tricuspid valve regurgitation. Estimated pulmonary artery peak systolic pressure 33 mmHg Pulmonic Valve No gross abnormalities noted Pericardium Normal pericardium without effusion. Aorta Normal ascending aorta dimension. IVC Normal inferior vena cava. CONCLUSIONS Normal left ventricular size and systolic function, EF 60%mild left ventricular hypertrophy. No regional wall motion abnormalities. Grade III/IV diastolic dysfunction (restrictive filling pattern), severely elevated filling pressures. Mildly increased left atrial size. Thickened mitral valve. Mild mitral annular calcification. Thickened aortic valve. Mild tricuspid valve regurgitation. Estimated pulmonary artery peak systolic pressure 33 mmHg. There is no pericardial effusion. There are no intracardiac masses. No similar previous studies are available for comparison Dr Sherine Greene MD [facility] (Electronically Signed) Final Date: 25 October 2024 00:42 S
--- NOTE | 2024-10-23 21:11 | ECG_ITS ---
[facility] Test Date: 2024-10-23 Pat Name: Tosha Perry Department: Room: Gender: Female Sampler Pickup: : 1955 Requested By: Coral Oconnor Order Number: [id number] Mirela MD: Chava Mckinley M.D. Measurements Intervals Parker Rate: 48 P: 38 GA: 193 QRS: 30 QRSD: 86 T: 39 QT: 436 QTc: 392 Interpretive Statements SINUS BRADYCARDIA Electronically Signed On 10-24-2024 15:02:32 CDT by Chava Mckinley M.D. [id number]
[2024-10-23 22:56] LABS: Troponin 5 6HR 12.16 ng/L (0-10)
[2024-10-23 22:57] LABS: Troponin 5 6HR Delta -0.84 ng/L (0-12)
[2024-10-23] MEDS: oxyCODONE 5 mg IR Tab/Cap 10 MG PO (23:35)
[2024-10-24] VITALS (11 sets, daily range): BP systolic 110–127; BP diastolic 50–66; PULSE 54–90; RESP 16–18; TEMP 36.3–37.3; O2SAT 92–97
[2024-10-24 01:32] LABS: Coronavirus 229E,HKU1,NL63,OC4 Not Detected (NOT DETECT); Parainfluenza Virus Type 1 Not Detected (NOT DETECT); Parainfluenza Virus Type 2 Not Detected (NOT DETECT); Parainfluenza Virus Type 3 Not Detected (NOT DETECT); Parainfluenza Virus Type 4 Not Detected (NOT DETECT); SARS-COV-2 Not Detected (NOT DETECT)
[2024-10-24 06:17] LABS: Hematocrit 28.1 % (36-47); Hemoglobin 8.60 g/dL (11.27-16.99); Mean Corpuscular HGB Conc 30.6 g/dL (30-55); Mean Corpuscular Hemoglobin 26.0 pg (27-33); Mean Corpuscular Volume 84.9 fl (85-98); Nucleated Red Blood Cells % 0 %; Platelet Count 226 10^3/cmm (157-399); Red Blood Count 3.31 10^6/uL (3.85-5.65); White Blood Count 3.99 10^3/uL (3.29-11.43)
[2024-10-24 06:36] LABS: Alanine Aminotransferase 11 U/L (0-33); Albumin Level 3.4 g/dL (3.5-5.2); Alkaline Phosphatase 124 U/L (35-105); Anion Gap 16.3 (5-19); Aspartate Amino Transferase 22 U/L (0-32); Blood Urea Nitrogen 14 mg/dL (8-23); Calcium 8.6 mg/dL (8.5-10.5); Carbon Dioxide 24 mmol/L (22-29); Chloride 103 mmol/L (98-107); Creatinine Clr Calc Pharmacy 50.5443; Globulin 3.0 g/dL (1.3-4.6); Glucose 130 mg/dL (65-115); Magnesium 2.0 mg/dL (1.7-2.3); Osmolality Calculated 292 mOsm/kg (285-295); Potassium 3.3 mmol/L (3.5-5.1); Sodium 140 mmol/L (136-145); Total Protein 6.4 g/dL (6.6-8.7)
[2024-10-24] MEDS: oxyCODONE 5 mg IR Tab/Cap 10 MG PO ×2 (08:35→16:58)
--- NOTE | 2024-10-24 09:10 | PC.CHAP ---
Pastoral Care Encounter/Spiritual Assessment Type of Contact [] Declined cost consultant visit [] Patient/Family/Request visit [] Outpatient visit [] Follow-up visit [] Physician referral [] Code/Alert [] Routine visit [] Staff referral [] Actively dying [x] Patient sleeping [] Family support [] [] Out of room [] Palliative care [] [] Receiving care in room [] Pre-surgical visit [] Trauma [] Long length of stay [] ICU visit [] Other: Relational/Emotional Strength [] Patient feels connected with others/family/visitors/staff [] Distress [] Loneliness/isolation [] Abandonment Spirituality of Patient [] Person of Shaina [] Attends Druze of their Shaina [] Believes in Prayer [] Reads Bible or Amish materials [] There are Spiritual issues to be addressed 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 Machine 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 Interventions [] Prayer [] Active listening [] Non-anxious presence [] Spiritual/emotional support [] Crisis/trauma care [] Spiritual counseling [] Bereavement support [] Provided bereavement packet [] Provided Bible/devotional materials [] Provided toy/stuffed animal, coloring book to patient or family member [] Provided Communion [] Anointing/[place] [] Salvation [] Completed spiritual assessment [] Other: Impact on Illness or Injury [] Angry [] Fearful [] Anxious [] Often cries [] Exhaustion [] Unable to work [] Unable to attend oriental orthodox [] Unable to walk/stand [] Unable to read [] Unable to drive [] Unable to eat/drink [] Unable to sleep [] Unable to be with family [] Patient intubated [] Other: Summary Time spent with patient
[2024-10-24] MEDS: fluticasone nasal spray 16gm Btl 1 SPRAY INTRANASAL (17:51)
--- NOTE | 2024-10-24 19:00 | PM.PN ---
Subjective Subjective: 69-year-old female with severe case of restless leg syndrome comes in with syncope. She states she will just be talking to somebody and then passed out. She hit her head and had to have's stitches once. She states she was admitted at [facility] recently and the other doctor thought she was on too many medications that were sedating and started her on Effexor. Taking the Effexor she was not passing out anymore but then she forgot to take it on Wednesday and passed out on Wednesday presenting here. Patient states that she was recently started on ramelteon and that was about when she started having the drop attacks. Vitals/I&O/Wt Last Vital Signs Temp 97.7 F 10/24/24 15:27 Pulse 62 10/24/24 15:27 Resp 17 10/24/24 16:58 BP 113/55 10/24/24 15:27 Pulse Ox 97 10/24/24 15:27 O2 Del Method Room Air 10/24/24 15:27 10/24/24 10/24/24 10/24/24 06:59 14:59 22:59 Intake Total 1000 / 2000 600 / 600 120 / 720 Balance 1000 / 2000 600 / 600 120 / 720 Weight last 48 hrs Weight 63.957 kg Weight 63.049 kg Weight 62.414 kg Physical Exam Narrative: General well-developed well-nourished female in no acute cardiopulmonary stress CV regular rate and rhythm Lungs clear to auscultation in the upper lung [place] crackles in the bases with deep breaths left side lung crackles resolved right side diminished but still present in the right base Abdomen positive bowel tones soft nontender Calves no tenderness cords pretrip edema Data 10/24/24 06:05 10/24/24 06:05 A&P Assessment and plan 1. Syncope and collapse: Patient was on too many psychoactive medications including baclofen, ramelteon, ropinirole. She is on only ropinirole 5 mg twice a day at 2 PM and 8 PM now but states that if she does not take it she gets severe restless legs. Ramelteon she is agreeable to stopping and baclofen she is agreeable to decreasing to 3 times a day. It is held for now 2. Jerking movements of extremities: Agree with restarting and weaning down the Xanax. Meds restarted selectively see orders 3. Right-sided chest pain: Right-sided chest pain, rule out pulmonary embolism : Pleuritic right-sided pain in patient with prior DVT; cough with brown sputum; chest X-ray normal; PE considered. - Ordered D-dimer. - If D-dimer elevated, proceed to CT chest with contrast to evaluate for PE question with her and her . - Viral swab if infectious etiology suspected. With possible bronchitis will add flutter block, expectorant with Mucinex. No evidence for pneumonia. Rib injury/chest wall pain : Pain over right rib cage after recent fall; worsened with deep breaths; no obvious fracture on X-ray. - Apply lidocaine patch to affected area. - Provide incentive spirometer and instruct use every hour (goal >=200?300 mL) to prevent hypoventilation and pneumonia. - Resume home oxycodone for analgesia; avoid acetaminophen due to intolerance. 4. Severe headache: Excruciating headache; CT head negative; partial relief with ED medication. - She is intolerant of acetaminophen due to worsening restless leg syndrome. Continue analgesia with oxycodone as needed. - Monitor neurological status; reassess if headache worsens or focal deficits develop. 5. Benzodiazepine dependence: Home alprazolam 0.5 mg TID stopped 48 h ago; risk of withdrawal-related symptoms including seizures. - Restart alprazolam at a reduced dose (exact taper to be determined) to mitigate withdrawal. - Develop gradual taper schedule and coordinate with outpatient provider. 6. Chronic pain: Baseline pain managed with oxycodone at home; currently acute exacerbation due to rib injury. - Resume home oxycodone dosing while inpatient with monitoring. - Avoid combination with high-dose benzodiazepines; awake overnight counselor on risks. 7. Anemia: Baseline Hb 9.9 g/dL; prior iron therapy for presumed deficiency; etiology likely chronic disease with prior GI bleed. - Trend CBC during hospitalization. - Obtain records from [facility]. Patient reports that she has previously had upper and lower endoscopy done at [facility] within the last year. She had finding of several ulcers. Plan: History of biliary stent placed at [facility] one of the prior hospitalizations. Reviewed CMP, noted mild elevation of alk phos. Repeat. Will need to follow-up. Chest pain appears to be at the right side chest wall over the rib cage, reproducible with tenderness on even gentle palpation, more likely related to syncope and collapse possibly cough. Repeat CMP. Sinus bradycardia: Monitor on telemetry. She denies any jaz blocking medications. Avoid. PDMP PDMP Reviewed: Not Reviewed Attestations Medical Necessity Statement*: Patient will be observed another night in the hospital and start physical therapy bradycardia improving Coding Level of Care Code 95781 Diagnoses Syncope and collapse R55 Jerking movements of extremities R25.2 Right-sided chest pain R07.9 Severe headache R51.9 Benzodiazepine dependence F13.20 Chronic pain G89.29 Anemia D64.9 Time Spent (min) 35
[2024-10-25] VITALS (8 sets, daily range): BP systolic 118–132; BP diastolic 59–78; PULSE 52–66; RESP 15–18; TEMP 36.6–37.2; O2SAT 94–98
[2024-10-25] MEDS: oxyCODONE 5 mg IR Tab/Cap 10 MG PO ×2 (05:52→14:19)
--- NOTE | 2024-10-25 09:44 | PC.CHAP ---
Pastoral Care Encounter/Spiritual Assessment Type of Contact [] Declined landing man visit [] Patient/Family/Request visit [] Outpatient visit [] Follow-up visit [] Physician referral [] Code/Alert [x] Routine visit [] Staff referral [] Actively dying [] Patient sleeping [] Family support [] [] Out of room [] Palliative care [] [] Receiving care in room [] Pre-surgical visit [] Trauma [] Long length of stay [] ICU visit [] Other: Relational/Emotional Strength [x] Patient feels connected with others/family/visitors/staff [x] Distress [] Loneliness/isolation [] Abandonment Spirituality of Patient [x] Person of Shaina [] Attends Yarsanism of their Shaina [x] Believes in Prayer [] Reads Bible or Congregation materials [] There are Spiritual issues to be addressed Tannery Gummer Interventions [x] Prayer [x] Active listening [x] Non-anxious presence [x] Spiritual/emotional support [] Crisis/trauma care [] Spiritual counseling [] Bereavement support [] Provided bereavement packet [] Provided Bible/devotional materials [] Provided toy/stuffed animal, coloring book to patient or family member [] Provided Communion [] Anointing/[place] [] Salvation [x] Completed spiritual assessment [] Other: Impact on Illness or Injury [] Angry [] Fearful [] Anxious [] Often cries [] Exhaustion [] Unable to work [] Unable to attend latter-day [] Unable to walk/stand [] Unable to read [] Unable to drive [] Unable to eat/drink [] Unable to sleep [] Unable to be with family [] Patient intubated [] Other: Summary Time spent with patient 5 min
[2024-10-25] MEDS: fluticasone nasal spray 16gm Btl 1 SPRAY INTRANASAL (10:17)
[2024-10-25] MEDS: venlafaxine ER (24HR) 75 mg Capsule PO (10:18)
--- NOTE | 2024-10-25 14:56 | P.DS_ITS ---
Discharge Providers Date of Admission: 10/23/24 22:08 Date of Discharge: October 25, 2024 Attending Provider at Admission: Perico Gonzalez Attending Provider at Discharge: Medardo Montgomery MD Primary Care Provider: Diana Garcia Diagnoses at Discharge Discharge Diagnosis 1. Syncope and collapse: Details from hospital stay: Attributable to overmedication with baclofen 10 mg 4 times a day, gabapentin, ramelteon and ropinirole. Ramelteon was stopped and baclofen was decreased to 5 mg 4 times a day. She is already taking ropinirole at 2 times a day 5 mg. 2. Jerking movements of extremities: Details from hospital stay: I think this related to the baclofen 3. Severe headache: Details from hospital stay: Treated with oxycodone here patient does not tolerate acetaminophen or ibuprofen 4. Benzodiazepine dependence: Details from hospital stay: She has been stopped on this medication prior to admission 5. Chronic pain: Details from hospital stay: Resume home meds 6. Anemia: Details from hospital stay: Follow-up with PCP for EGD and colonoscopy start PPI Reason for Visit Reason for Visit: seizure activity Brief History: Tosha Perry is a 69 year old patient with chronic kidney disease, prediabetes, hyperlipidemia, prior DVT, anemia, GERD, allergic rhinitis, anxiety/depression, seropositive rheumatoid arthritis, hypothyroidism, and restless leg syndrome presenting after several weeks of intermittent jerking episodes, light-headedness, and a collapse after showering today (while sitting up on a couch). They report new right-sided chest pain described as ?an elephant sitting,? worsened by deep inspiration and associated with cough producing brown sputum. The patient also endorses an excruciating headache, dry heaves, and prior dark-malodorous urine though current urinalysis is clear. Recent admission at [facility] evaluated similar events. CT head today is normal. Chest X-ray is without acute abnormality. Initial vitals: BP 122/76 mmHg, HR 48 bpm, T 98.4 ?F, SpO? 98% on room air. Labs: Hb 9.9 g/dL, creatinine 1.3 mg/dL, potassium 3.5 mEq/L, Alk Phos 156 U/L, remainder unremarkable. Home alprazolam (0.5 mg q8h) was stopped 48 h ago; the patient normally takes oxycodone for pain. They deny current alcohol use and quit smoking five years ago (previously ~1 pack every three weeks). Hospital Course Hospital Course Patient had telemetry which showed no worrisome pauses but she did have bradycardia 55-65. She did have 3 beat run of V. tach that was not sustained. She has been improved with no further syncope. She states she did not take her Effexor the day before her syncopal episode and that was started to prevent the absence type events. I counseled her that her multiple medications were sedating and caused syncope and dizziness. Patient was agreeable to discontinuing ramelteon and decreasing baclofen. Her ropinirole she is already only taking 5 mg at 2 PM and 8 PM but notably does her pretty big doses. She cannot do without it as her legs are restless to the point of rubbing blisters versus her bedsheet. Patient has had a headache that is not unusual for her but has not had neurologic symptoms Physical Exam Narrative: General well-developed well-nourished female in no acute cardiopulmonary stress CV regular rate and rhythm Lungs clear to auscultation bilaterally Abdomen positive bowel tones soft nontender Calves no tenderness cords pretrip edema Discharge Data Studies Completed and Pending Completed Studies During Hospitalization Category Date Time Status CT head wo con* [id number] Stat Cat Scan 10/23/24 14:42 Completed XR chest 1V portable [id number] Stat Exams 10/23/24 14:42 Completed CV. echo complete* [id number] Routine Ultrasound 10/23/24 20:22 Completed Radiology Impressions Chest X-Ray 10/23/24 14:42 IMPRESSION: Stable chest without acute abnormality. Head CT 10/23/24 14:42 IMPRESSION: No acute intracranial abnormality. Laboratory Results WBC 3.99 10^3/uL (3.29-11.43) 10/24/24 06:05 RBC 3.31 10^6/uL (3.85-5.65) L 10/24/24 06:05 Hgb 8.60 g/dL (11.27-16.99) L 10/24/24 06:05 Hct 28.1 % (36-47) L 10/24/24 06:05 MCV 84.9 fl (85-98) L 10/24/24 06:05 MCH 26.0 pg (27-33) L 10/24/24 06:05 MCHC 30.6 g/dL (30-55) 10/24/24 06:05 RDW 18.8 % (12.1-15.1) H 10/24/24 06:05 Plt Count 226 10^3/cmm (157-399) 10/24/24 06:05 MPV 9.6 fL (7.4-10.4) 10/24/24 06:05 Neut % (Auto) 59.3 % 10/24/24 06:05 Lymph % (Auto) 26.6 % 10/24/24 06:05 [place] % (Auto) 7.8 % 10/24/24 06:05 Eos % (Auto) 5.3 % 10/24/24 06:05 Baso % (Auto) 0.5 % 10/24/24 06:05 Neut # (Auto) 2.37 10^3/uL (1.8-7.7) 10/24/24 06:05 Lymph # (Auto) 1.1 10^3/uL (0.8-4.8) 10/24/24 06:05 [place] # (Auto) 0.3 10^3/uL (0.2-0.9) 10/24/24 06:05 Eos # (Auto) 0.2 10^3/uL (0.0-0.8) 10/24/24 06:05 Baso # (Auto) 0.0 10^3/uL (0.0-0.1) 10/24/24 06:05 Nucleated RBC % (auto) 0 % 10/24/24 06:05 Nucleated RBCs # 0.0 /100WBC 10/24/24 06:05 D-Dimer 1.26 ug/mLFEU (0-0.59) H 10/24/24 06:05 Sodium 140 mmol/L (136-145) 10/24/24 06:05 Potassium 3.3 mmol/L (3.5-5.1) L 10/24/24 06:05 Chloride 103 mmol/L (98-107) 10/24/24 06:05 Carbon Dioxide 24 mmol/L (22-29) 10/24/24 06:05 Anion Gap 16.3 (5-19) 10/24/24 06:05 BUN 14 mg/dL (8-23) 10/24/24 06:05 Creatinine 1.0 mg/dL (0.5-0.9) H 10/24/24 06:05 GFR Calculation 54.8 mL/min (90-130) L 10/24/24 06:05 Glucose 130 mg/dL (65-115) H 10/24/24 06:05 POC Glucose 123 mg/dL (70-110) H 10/23/24 16:06 Calculated Osmolality 292 mOsm/kg (285-295) 10/24/24 06:05 Calcium 8.6 mg/dL (8.5-10.5) 10/24/24 06:05 Magnesium 2.0 mg/dL (1.7-2.3) 10/24/24 06:05 Total Bilirubin 0.2 mg/dL (0.15-1.2) 10/24/24 06:05 AST 22 U/L (0-32) 10/24/24 06:05 ALT 11 U/L (0-33) 10/24/24 06:05 Alkaline Phosphatase 124 U/L (35-105) H 10/24/24 06:05 Troponin T Baseline 13 ng/L (0-10) H 10/23/24 15:41 Troponin T 120 Minute 11.83 ng/L (0-10) H 10/23/24 17:31 Delta Troponin T -1.17 ABS# (0-10) L 10/23/24 17:31 Troponin T Hi Sens 6Hr 12.16 ng/L (0-10) H 10/23/24 22:15 Troponin T Hi Sens 6Hr Delta -0.84 ng/L (0-12) L 10/23/24 22:15 Total Protein 6.4 g/dL (6.6-8.7) L 10/24/24 06:05 Albumin 3.4 g/dL (3.5-5.2) L 10/24/24 06:05 Globulin 3.0 g/dL (1.3-4.6) 10/24/24 06:05 Urine Color Yellow (Yellow) 10/23/24 16:20 Urine Appearance Clear (CLEAR) 10/23/24 16:20 Urine pH 6.5 (5-7) 10/23/24 16:20 Ur Specific [place] 1.015 (1.005-1.030) 10/23/24 16:20 Urine Protein Trace (Negative) A 10/23/24 16:20 Urine Glucose (UA) Negative (Normal) 10/23/24 16:20 Urine Ketones Negative (Negative) 10/23/24 16:20 Urine Blood Negative (Negative) 10/23/24 16:20 Urine Nitrate Negative (Negative) 10/23/24 16:20 Urine Bilirubin Negative (Negative) 10/23/24 16:20 Urine Urobilinogen 0.2 mg/dL (Negative) 10/23/24 16:20 Ur Leukocyte Esterase Negative (Negative) 10/23/24 16:20 Urine RBC 0-2 /hpf (0-2) 10/23/24 16:20 Urine WBC 0-5 /hpf (0-5) 10/23/24 16:20 Ur Squamous Epith Cells 0-5 /hpf (0-5) 10/23/24 16:20 Amorphous Sediment Not Reportable 10/23/24 16:20 Urine Bacteria None seen /hpf (NONE) 10/23/24 16:20 Hyaline Casts 4.95 /lpf 10/23/24 16:20 Adenovirus (PCR) Not detected (NOT DETECT) 10/23/24 23:40 C. pneumoniae DNA (PCR) Not detected (NOT DETECT) 10/23/24 23:40 Coronavirus 229E (PCR) Not detected (NOT DETECT) 10/23/24 23:40 Human Metapneumovir PCR Not detected (NOT DETECT) 10/23/24 23:40 Influenza A (H1) PCR Not detected (NOT DETECT) 10/23/24 23:40 Influ A (H1/09) PCR Not detected (NOT DETECT) 10/23/24 23:40 Influenza A (H3) PCR Not detected (NOT DETECT) 10/23/24 23:40 Influenza Type A (PCR) Not detected (NOT DETECT) 10/23/24 23:40 Influenza Type B (PCR) Not detected (NOT DETECT) 10/23/24 23:40 M. pneumoniae (PCR) Not detected (NOT DETECT) 10/23/24 23:40 Parainfluenza 1 (PCR) Not detected (NOT DETECT) 10/23/24 23:40 Parainfluenza 2 (PCR) Not detected (NOT DETECT) 10/23/24 23:40 Parainfluenza 3 (PCR) Not detected (NOT DETECT) 10/23/24 23:40 Parainfluenza 4 (PCR) Not detected (NOT DETECT) 10/23/24 23:40 RSV Type A (PCR) Not detected (NOT DETECT) 10/23/24 23:40 RSV Type B (PCR) Not detected (NOT DETECT) 10/23/24 23:40 Entero/Rhino (PCR) Not detected (NOT DETECT) 10/23/24 23:40 SARS-CoV-2 (PCR) Not detected (NOT DETECT) 10/23/24 23:40 Vitals Last Vital Signs Temp 97.9 F 10/25/24 10:37 Pulse 54 L 10/25/24 10:37 Resp 16 10/25/24 14:19 BP 132/67 10/25/24 10:37 Pulse Ox 98 10/25/24 10:37 O2 Del Method Room Air 10/25/24 10:37 Discharge Plan Discharge Patient Disposition: Home Condition: Stable Prescriptions: New omeprazole 40 mg capsule,delayed release(DR/EC) 40 mg PO DAILY 28 Days Qty: 30 0RF Continued (DME) tens unit for cervical See Rx Instructions .Route .MEDSUPPLY Qty: 1 0RF Rx Instructions: As directed folic acid 1 mg tablet 1 mg PO DAILY PRN (Reason: Edema) Qty: 90 1RF levothyroxine 112 mcg tablet 112 mcg PO QAM Qty: 90 1RF (DME) Bone growth stimulator See Rx Instructions .Route .MEDSUPPLY Qty: 1 0RF Rx Instructions: As directed (DME) Bone growth stimulator See Rx Instructions .Route .MEDSUPPLY Qty: 1 0RF Rx Instructions: As directed albuterol sulfate 90 mcg/actuation HFA aerosol inhaler 1 puff inhalation Q6H PRN (Reason: Shortness Of Breath) Qty: 6.7 0RF (DME) insulin syringes (disposable) 1 mL syringe See Rx Instructions .ROUTE .MEDSUPPLY Qty: 25 3RF Rx Instructions: As directed methotrexate sodium 25 mg/mL solution 20 mg SUBCUT .Q7days Qty: 10 1RF Rx Instructions: ON MONDAYS Simbrinza 1-0.2 % drops,suspension 1 drp ophthalmic (eye) BID oxycodone 10 mg tablet 10 mg PO Q8H PRN (Reason: Pain) furosemide 80 mg tablet 80 mg PO DAILY venlafaxine 75 mg capsule,extended release 24hr 75 mg PO DAILY gabapentin 300 mg capsule 300 mg PO TID fluticasone propionate 50 mcg/actuation spray,suspension 1 spray INTRANASAL BID Changed baclofen 10 mg tablet 5 mg PO Q6H PRN (Reason: Muscle Spasm) Qty: 30 0RF ropinirole 5 mg tablet 5 mg PO BID Qty: 270 0RF potassium chloride 20 mEq tablet extended release 40 meq PO DAILY Qty: 30 0RF Rx Instructions: take with your furosemide 80 mg Discontinued ramelteon 8 mg tablet 8 mg PO BEDTIME Discharge Order = DC NOW: Discharge Order (Routine); Ordered 10/25/24 Ordered By: Medardo Montgomery Referrals: Diana Garcia PA [Primary Care Provider, [facility]] - 11/02/24 1:40 pm Discharge Diet: Advance as tolerated Discharge Activity: Resume usual activity Patient Instructions: Syncope (GEN), Opioid Safety, Patient Portal & Cece Instructions, Seizures Activity Restrictions/Additional Instructions: Your ramelteon, ropinirole, gabapentin, baclofen and oxycodone all contribute to lethargy dizziness and potentially syncope which is losing consciousness while standing that you experience when you presented to the hospital. Your telemetry shows no worrisome arrhythmias. I recommend stop ramelteon completely and decrease ropinirole to 5 mg at 2 PM and 8 PM for restless legs. Decrease baclofen to 5 mg 4 times a day. Additionally your TSH is a little bit high in the past but we did not check it today and your heart rate runs low which suggest that your thyroid level is a little bit low. If you have not had this adjusted recently please discuss this with your primary care physician and have your TSH and free T4 checked Discharge Attestations Time Spent in Discharge Care*: greater than 30 min Status at Discharge: Cognitive status at discharge: cognitively intact , Behavioral status at discharge: cooperative , Quality Metrics Clinical Quality Measures [ No reported AMI, CVA or VTE this stay] Coding Level of Care Code 39910 Diagnoses Syncope and collapse R55 Jerking movements of extremities R25.2 Severe headache R51.9 Benzodiazepine dependence F13.20 Chronic pain G89.29 Anemia D64.9 Time Spent (min) 35
== END 2024-10-25 15:55 | disposition home or self-care (01) ==
LOC: ER 21:26 → MEDSURG 22:09
PROVIDERS: Admitting Provider Internal Medicine; Emergency Provider Emergency Medicine; PCP Physician Assistant; Visit Provider Internal Medicine
DX: R25.2 Cramp and spasm (principal); R55 Syncope and collapse; R51.9 Headache, unspecified; F13.20 Sedative, hypnotic or anxiolytic dependence, uncomplicated; G89.29 Other chronic pain; N18.30 Chronic kidney disease, stage 3 unspecified; Z86.718 Personal history of other venous thrombosis and embolism; R73.03 Prediabetes; E78.5 Hyperlipidemia, unspecified; D50.9 Iron deficiency anemia, unspecified; E03.9 Hypothyroidism, unspecified; M05.9 Rheumatoid arthritis with rheumatoid factor, unspecified; R91.1 Solitary pulmonary nodule; Z87.891 Personal history of nicotine dependence; R00.1 Bradycardia, unspecified; K21.9 Gastro-esophageal reflux disease without esophagitis
CPT/HCPCS: 36415; 36416; 70450; 71045; 80053; 81001; 82962; 83735; 84484; 85025; 85378; 87486; 87581; 87633; 93005; 93306; 96372; 96374; 97116; 97161; 97165; 99285; G0378; J1171; J1650; J7030; J9999

== ENCOUNTER 2024-11-04 03:45 | Inpatient (IN) | payer MEDICARE, OTHER, SELFPAY ==
--- OUTSIDE RECORDS SUMMARY | 2024-07-17 04:30 | XMS_ITS ---
Author Organization [facility] Address [address] [place] [address] Care Team Providers Care Medical Care Manager Name Role Phone Diana Galvan Primary Care Provider Mode Leavitt Unavailable [phone] Paxton Nobles Unavailable [phone] REASON FOR VISIT wants new mri Encounters Encounter Location Date Provider Diagnosis Replaced By [facility] [place] [address] [place] [address] 07/17/2024 Paxton Nobles Plan Of Treatment Next Appt Details Provider Name:Mode Cabello, 12/06/2024 09:40:00 AM, [address] [place], [address], Progress Notes * BARRY VAN SDOB:[birth year] (69 yo F)Acc No.[id number]:07/17/2024 Progress Notes Patient: BARRY LIVINGSTON Provider: Rosalia Nobles APRN :1955 A ge:69 Y S ex:Female Date:07/17/2024 Address:[address] [place] [address] [place] [phone] Pcp:SHIV Chong Subjective: * Chief Complaints: * W ants new mri Billing Information: * Procedure Codes: Care Plan Details* * Electronic signature of Will MALIK Donald on 11/04/2024 at 04:05 AM CDT Sign off status: Pending * Provider: Rosalia Nobles APRN Date: 0 07/17/2024 Generated for Shen lindo/Sindy/Chandler on: 0 11/04/2024 04:05 AM CDT
[2024-11-04] VITALS (25 sets, daily range): BP systolic 86–180; BP diastolic 33–118; PULSE 45–157; RESP 12–27; TEMP 36.3–36.9; O2SAT 92–99; BMI 23.1; BMI 23.3
--- NOTE | 2024-11-04 03:56 | ECG_ITS ---
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 Measurements Intervals [place] Rate: 68 P: 63 SD: 178 QRS: 33 QRSD: 89 T: 46 QT: 415 QTc: 442 Interpretive Statements SINUS RHYTHM WITH OCCASIONAL VENTRICULAR PREMATURE COMPLEXES LOW QRS VOLTAGE [QRS DEFLECTION < 0.5/1.0 mV IN LIMB/CHEST LEADS] Compared to ECG 10/23/2024 21:57:14 Ventricular premature complex(es) now present Low QRS voltage now present Sinus bradycardia no longer present Electronically Signed On 11-04-2024 08:40:48 CDT by Chava Mckinley M.D. [id number]
--- OUTSIDE RECORDS SUMMARY | 2024-11-04 04:05 | XMS_ITS | Patient Health Record ---
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) Active confirmed Problem Effusion, right wrist (M25.431) Active confirmed Problem 033558765 Dyslipidemia (E78.5) Active confirmed Problem 52802512 Seizures (R56.9) Active confirmed Problem 10807194 Heart murmur (R01.1) Active confirmed Problem 585209350 Diabetes mellitu s type 2 in nonobese (E11.9) Active confirmed Problem 141222116 GERD without esophagitis (K21.9) Active confirmed Problem 475145894 Hypothyroidism (acquired) (E03.9) Active confirmed Problem 5538731159613 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) Active confirmed Problem 89081603 Depression, unspecified depression type (F32.9) Active confirmed Problem 716398387 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) Active confirmed Problem 567973196 Cataract of left eye, unspecified cataract type (H26.9) Active confirmed Plan Of Treatment Pending Test Test Name Order Date Hemoglobin A1c ([id number]) 11/12/2016 MRI- BRAIN WO CONTRAST (22179)([facility]-BRA [facility]) 01/22/2017 XRAY- ABDOMEN-KUB 1V (85938)([facility]-ABDK1 ) 01/21/2017 Insurance Providers Payer Name Payer Address Payer Phone Subscriber Number Group Number Insured Name Patient Relationship to Insured Coverage Start Date Coverage End Date MEDICARE [place] PART B [address] [facility] [employer] [id number] Tosha Perry Self - patient is the insured [address] [place] [address] SUPPLEMENT [id number] [place], [place] [id number] Tosha Perry Self - patient is the [...]
--- OUTSIDE RECORDS SUMMARY | 2024-11-04 04:05 | XMS_ITS | Data Portability ---
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 Plan of Treatment Reminders Order Date Submit Date Provider Last Modified By Organization Details Last Modified Time Details Appointments None recorded. Lab vitamin B12, serum 2019 020 [email or web address] [facility], [address] [place] [address], [address], 0 22:21:02 HbA1c (hemoglobi n A1c), blood 2019 020 [email or web address] [facility], [address] [place] [address], [address], 0 22:21:18 spep + immunoglob ulins, serum 2019 020 [email or web address] [facility], [address] [place] [address], [address], 0 22:21:18 vitamin B6 (pyridoxin e), QL, blood 2019 020 [facility], [address] [place] [address], [address], 0 22:21:18 cryoglobul in, immunofixa tion, serum 2019 020 [facility], [address], [place], [address], 0 22:21:18 iron + TIBC + ferritin, serum 2019 [email or web address] [facility], [address], [place], [address], 0 22:21:18 Referral None recorded. Procedures None recorded. Surgeries None recorded. Imaging None recorded. Medication Orders Requip 5 mg tablet 2019 INTERFACE [facility], [address] [place] [address], [address], 0 11:06:57 Neurontin 300 mg capsule 2019 INTERFACE [facility], [address] [place] [address], [address], 0 11:06:54 Requip 5 mg tablet 2019 INTERFACE [facility], [address] [place] [address], [address], 0 12:04:10 Neurontin 300 mg capsule 2019 INTERFACE [facility], [address] [place] [address], [address], 0 12:04:06 Patient TargetsNo targets recorded. Patient Instructions Encounter Date Encounter Id Patient Instructions Last Modified By Organization Details Last Modified Time 11/20/2019 [id number] Maintain proper hydration, sleep and nutrition. Avoid smoking, excessive caffeine and alcohol consumption. Any worsening symptoms or new symptoms advised to seek immediate medical attention. Fall precaution. [email or web address] Not available 11/20/2019 11:06:06 Reason for Referral None Reported. Results Created Date Observation Date Name Description Value Unit Range Abnormal Flag Note LastModifiedBy Organization Detail LastModifiedTime 11/17/19 20 12/04/2017 MRI, brain , w/wo contr ast No observ ation record ed. [email or web address] Not Available 2019 11:05:02 Result Notes None recorded. Problems Name Problem SNOMED Code Status Onset Date Resolution Date Notes Provider Name and Address Organization Details Recorded Time Chronic back pain 757669182 Active 2019 Mirta gustafson [place] - [facility] 0 10:56:11 Pain in bilateral legs 313742380825 08223 Active 2019 Mirta gustafson [place] - Neurology [...] completed Mirta VALENCIA - [facility] 05/19/2019 09:21:54 Hysterectomy completed Mirta VALENCIA - [facility] 05/19/2019 09:22:00 oophorectomy completed Mirta VALENCIA - [facility] 05/19/2019 09:22:09 Unlisted px accessory sinus completed Mirta VALENCIA - [facility] 05/19/2019 09:22:20 anal fissurectomy completed Mirta VALENCIA - [facility] 05/19/2019 09:22:32 Appendectomy completed Mirta VALENCIA - [facility] 05/19/2019 09:22:38 Caesarean Section completed Mirta VALENCIA - [facility] 05/19/2019 09:22:48 Dilation and Curettage completed Mirta VALENCIA - [facility] 05/19/2019 09:22:56 Imaging Results None recorded. Procedure Notes None recorded. Medical Equipment None Reported. Allergies Allergen ID Allergen Name Allergen Category Reaction Reaction Severity Criticality Documentation Date Start Date Code Code System Note Provider Name and Address Organization Details Recorded Time 3539 Imitrex medicatio n Not available Not available Not available 05/19/2019 49053 3 RxNorm Mirta gustafson [place] - [facility] 0 09:19:13 3540 Benadryl medicatio n Not available Not available Not available 05/19/201931063 7 RxNorm Mirta Jones janay, [facility] 0 09:19:18 3541 Reglan medicatio n Not available Not available Not available 05/19/2019 9230 RxNorm Mirta Jones janay, [facility] 0 09:19:25 3542 amitripty line medicatio n Not available Not available Not available 05/19/2019 704 RxNorm Mirta Jones janay, [facility] 0 09:19:29 Medications Name Sig Start [...] Updated DateTime 07/31/2019 167.64 cm 21 kg/m2 78685.01 g Mirta Jones [facility] 07/31/2019 11:39:03 Date Recorded Body height Body mass index (BMI) Body weight Heart rate Systolic And Diastolic Provider Name and Address Organization Details Last Updated DateTime 11/20/2019 167.64 cm 21 kg/m2 07076.01 g 85 /min 150/86 mm[Hg] Juliette Ashford [facility] 0 10:47:58 Social History Question Answer Notes LastModified by Zaranga Details LastModified Time Tobacco Smoking Status Former Smoker Mirta gustafson [facility] 05/19/2019 10:56:27 What Is Your Level Of Caffeine Consumption? Moderate [email or web address] Information not available 05/19/2019 How Much Tobacco Do You Chew? None Information not available 05/19/2019 What Was The Date Of Your Most Recent Tobacco Screening? 11/20/2019 [email or web address] Information not available 11/20/2019 How Much Tobacco Do You Smoke? No [email or web address] Information not available 05/19/2019 On What Date Was Tobacco Cessation Counseling Provided? 11/20/2019 [email or web address] Information not available 11/20/2019 How Many Years Have You Smoked Tobacco? 1 [email or web address] Information not available 05/19/2019 Sex: Unknown Functional Status Question Answer Note LastModified by Zaranga Details LastModified Time What is your level of alcohol consumption? None [email or web address] Information not available 05/19/2019 Do you or have you ever used smokeless tobacco? Never used smokeless tobacco [email or web address] Information not available 05/19/2019 Do you or have you ever used e-cigarettes or vape? Never used electronic cigarettes [email or web address] Information not available 05/19/2019 Mental Status None recorded. Family History Relationship Description Onset Age of this Age Resolved Age Notes LastModified by Organization Details LastModified Time Unspecified Relation Diabetes mellitus Not available 2019 10:58:42 Medical History Condition Response Depression Y Anxiety Disorder Y Arthritis Y Cancer N Stroke N Headaches Y Ulcers Y Thyroid Problems Y Heart Attack (MD) N Diabetes Y Seizures/Epilepsy Y Hyperlipidemia Y Epilepsy/Seizures Y Hypertension Y Gynecological HistoryNo gynecological history recorded. Obstetrics History GPAL:G 0 P 0 0 0 0 Immunizations Vaccine Type Date Status Note Provider Nam e and Address Organization Details Recorded Time pneumococcal, unspecified formulation 0 completed [facility] 07/31/2019 11:45:23 Past Encounters Encounter ID Performer Location Encounter Start Date Encounter Closed Date Diagnosis/Indication Diagnosis SNOMED-CT Code Diagnosis ICD10 Code Diagnosis Note [id number] Monty Maharaj MD [address], [address] [place] [address] 05/19/2019 10:38:03 05/19/2019 11:28:20 Pain in lower limb 78730909 M79.604 M79.605 Pain in upper limb 80194 6003 M79.601 M79.602 Dizziness 835180360 R42 Syncope 445448313 R55 Restless legs 32941497 G 25.81 [id number] Monty Maharaj MD [address], [address] [place] [address] 05/22/2019 14:05:37 05/22/2019 15:23:16 Dizziness 162971774 R42 Benign par oxysmal positional vertigo 224415794 H81.12 [id number] Monty Maharaj MD [address], [address] [place] [address] 05/22/2019 14:07:24 05/22/2019 15:23:30 Dizziness 808855437 R42 Advised to see PCP for irregular heart rhythm. 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 Pain in lower limb 89546 006 M79.605 Neurontin changed to 2 tabs po tid. Polyneuropathy 18467978 G62.9 Moderate to severe axonal motor and sensory Dizziness 926264143 R42 Advised to see PCP for irregular heart rhythm. Benign par oxysmal positional vertigo 737818881 H81.12 PT recommende d. Restless legs 08430192 G 25.81 Requip changed to 5mg. [id number] Monty Maharaj MD [address], [address] [place] [address] 11/20/2019 10:37:24 11/20/2019 11:15:23 Dizziness 450480403 R42 Advised to see PCP for irregular heart rhythm. Benign par oxysmal positional vertigo 060618920 H81.12 PT recommende d. Ulnar neur opathy of left arm 7050756691 69530 G56.22 Sensory. Pain in lower limb 21443 006 M79.605 Neurontin changed to 2 tabs po tid. Polyneuropathy 17322216 G62.9 Moderate to severe axonal motor and sensory. Restless legs 05546434 G 25.81 Requip changed to 5mg. Health Concerns Section Related Observation LastModified by Organization Detai ls LastModified Time None Recorded Concern Status LastModified by Organization Details LastModified Time None Recorded Advance Directives Directive None Recorded Payers Insurance Date Sequence Insurance Name Policy Number Policy Rivera Covered Member ID Rivera Member ID Guarantor Name 07/07/2018 2 [place] Grayinda S Ranew [id number] Darinda S Ranew 05/18/2019 1 [employer] (MEDICARE REPLACEMENT/ ADVANTAGE - PPO) Darinda S Ranew [id number] Grayinda S Ranew 12/19/2019 1 [employer] (MEDICARE REPLACEMENT/ ADVANTAGE - PPO) [id number] Grayinda S Ranew [id number] Grayinda S Ranew Notes Date Note Type [...] better on requip. Monty Maharaj MD [address] [place], [address], [facility] 07/31/2019 12:04:12 [...] No syncope and seizure. Monty Maharaj MD [address] [place] [address], [address], [facility] - [facility] 11/20/2019 11:10:24 OBGyn Episode No OBEpisode recorded.
--- OUTSIDE RECORDS SUMMARY | 2024-11-04 04:05 | XMS_ITS | Patient Health Record ---
Author Organization [facility] [employer] Address [address] [facility] [address] [place] [address] Support Name Relationship Address Phone BARRY VAN Guarantor Unknown [phone] Allergies Allergen (clinical drug ingredient) Drug/Non Drug [...] Problem Status W/U Status Risk Notes Problem 10511898 Other specified hypothyroidism (E03.8) Active confirmed Problem 005695586 Other chronic pancreatitis (K86.1) Active confirmed Problem 589290132448971 Lumbago with sciatica, right side (M54.41) Active confirmed Problem 470821796 Lumbago with sciatica, left side (M54.42) Active confirmed Problem 40764791 Anxiety (F41.9) Active confirmed Problem 55764916 PTSD (post-traumatic stress disorder) (F43.10) Active confirmed Problem 82448905 Other congestive heart failure (I50.9) Active confirmed Problem 762670889 Chronic pain aft er traumatic injury (G89.21) [...] Date [place]ARE [place], [place] [address] [address] [place] [address] [phone] [id number] BARRY VAN Self - patient is the insured [employer] [address] [place] [address] [place] [id number] MARGEBARRY WILLETT Self - patient is the insured Medical (General) History Medical History History ICD Code Hypothyroidism head injury with seizures multiple traumatic injuries from [facility] back surgery pancreatitis cataract pneumonia depression GERD Surgical History Surgery Date(Month/Year) back surgery 2015 Hospitalization History Reason Date(Month/Year) Pneumonia and hand infection. 11/2021
--- OUTSIDE RECORDS SUMMARY | 2024-11-04 04:05 | XMS_ITS | Clinical Summary ---
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
--- OUTSIDE RECORDS SUMMARY | 2024-11-04 04:05 | XMS_ITS | Patient Health Record ---
Author Organization [facility] Address [address] [place] [address] Care Team Providers Care Technology Program Manager Name Role Phone Diana Galvan Primary Care Provider UnavailMode Estevez Unavailable [phone] Rajesh Serna Unavailable [phone] Paxton Nobles Unavailable [phone] Migration, Provider Unavailable Unavailable Andrea Bashir Unavailable [phone] Corby Mena Unavailable [phone] Judah Shelton Unavailable [phone] Desiree Cox Unavailable [phone] Deedee Villarreal Unavailable [phone] Allergies Allergen (clinical drug ingredient) Drug/Non Drug Allergy documented on EMR Reaction Allergy Type Onset Date Status diphenhydramine Benadryl Unknown Drug Allergy A ctive sumatriptan Imitrex Unknown Drug Allergy Activ e Results Component Value Reference Range Flag Notes Urine Drug Screen (cup read) - 99300 Reviewed date:06/22/2024 01:19:32 PM Interpretation:Positive Performing Lab: Notes/Report: Positive OXY + Urine Confirmation Panel (in strument) - 02628 Reviewed date:06/28/2024 02:49:57 PM Interpretation: Performing Lab: [...] the U.S. Food and Drug Administration. Gabapentin >81552 <225 ng/mL > This test was developed [...] by the U.S. Food and Drug Administration. Schedule Confirmation (Not y et reviewed by provider) Interpretation: Performing Lab: Notes/Report: Schedule Confirmation (Not y et reviewed by provider) Interpretation: Performing Lab: Notes/Report: IPMA Saliva Drug Screen Reviewed date:09/01/2024 10:27:02 AM Interpretation: Performing Lab: Notes/Report: Urine Drug Screen (cup read) - 31629 Reviewed date:10/05/2024 10:34:03 AM Interpretation: Performing Lab: Notes/Report: BZO + OPI + zzzUrine Drug Screen (confir mation by instrument) - 37458 Reviewed date:04/06/2024 12:03:00 PM Interpretation: Performing Lab: Notes/Report: Urine Drug Screen (cup read) - 86461 Reviewed date:03/30/2024 03:52:14 PM Interpretation: Performing Lab: Notes/Report: OXY + Tox Results Reviewed date:06/28/2024 02:49:57 PM Interpretation: Performing Lab: Notes/Report: zzzCT Outside CD (Not yet re viewed by provider) Interpretation: Performing Lab: Notes/Report: [id number] Schedule Confirmation (Not y et reviewed by provider) Interpretation: Performing Lab: Notes/Report: Schedule Confirmation (Not y et reviewed by provider) Interpretation: Performing Lab: Notes/Report: Reason For Referral Reason PVD - OZH 10/24/2023 : The left common femoral artery 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 Also thrombus within the right common femoral vein (IVC filter in place) Diagnosis 1 Peripheral vascular disease (I73.9) Referring Provider First Name Mode Referring Provider Last Name Irineo Referring Provider Speciality Interventi onal Pain Medicine Referred Organization [facility] Referred Provider Corby Mena Referred Address [address] [place] [address] [address], [place],[address], Referred Provider Specialty Vascular [employer] General Notes Pamella Marlow 11/23/19 24 04:10:15 PM >Please schedule with Dr. Shelton [...] 07:57:51 AM >being followed by a in [place] Clinical Notes Hermelinda Genao 03:39:32 PM >More information to come, Hermelinda Genao 11/05/2023 09:04:39 AM >US and CT shows thrombus in right common femoral vein and IVC filter in place, 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 Referral Priority Routine Reason Please order cervica l spine x-ray in [place] Diagnosis 1 Arthrodesis status ( Z98.1) Referral Organization [facility] [place] Referring Provider First Name Paxton Referring Provider Last Name Giuliano Referring Provider Speciality Neurosurge ry Referral Priority Routine Reason Dr Garcia / Sam Spine x ray Diagnosis 1 Cervical pain (neck) (M54.2) Referral Organization [facility] Referring Provider First Name Paxton Referring Provider Last Name Giuliano Referring Provider Speciality Neurosurge ry Referral Priority Routine Reason EMG/NCV study of the bilateral upper extremities Diagnosis 1 Pain in right upper arm (M79.621) Diagnosis 2 Pain in left upper a rm (M79.622) Diagnosis 3 Cervical radiculopat hy (M54.12) Diagnosis 4 Cervical paraspinal muscle spasm (M62.838) Referral Organization [facility] Referring Provider First Name Rajesh Referring Provider Last Name Kareem Referring Provider Speciality Neurosurge ry Referred Provider [facility] ([facility]) Referred Provider Specialty Physical The rapist Referral Priority Routine Reason EMG/NCV Bilateral Up per Extremities Diagnosis 1 Pain in right upper arm (M79.621) Diagnosis 2 Pain in left upper a rm (M79.622) Diagnosis 3 Cervical radiculopat hy (M54.12) Diagnosis 4 Degenerative disc di sease, cervical (M50.30) Diagnosis 5 Cervical paraspinal muscle spasm (M62.838) Referral Organization [facility] Referring Provider First Name Rajesh Referring Provider Last Name Kareem Referring Provider Speciality Neurosurge ry Referred Provider [facility] ([facility]) Referred Provider Specialty Physical The rapist Referral Priority Routine Reason Evaluation of a cerv ical spinal cord stimulator Diagnosis 1 Cervical paraspinal muscle spasm (M62.838) Diagnosis 2 Chronic pain syndrom e (G89.4) Diagnosis 3 Arthrodesis status ( Z98.1) Referring Provider First Name Rajesh Referring Provider Last Name Kareem Referring Provider Speciality Neurosurge tahmina Referred Organization [facility] Referred Provider Mode Cabello Referred Address [address] [place] [address],[place],[address], General Notes Alissa Myrick 0 05/19/2024 03:03:09 PM >ATC to schedule. Referral Priority Routine Reason Evaluation of a cerv ical spinal cord stimulator Diagnosis 1 Chronic pain syndrom e (G89.4) Diagnosis 2 Cervical paraspinal muscle spasm (M62.838) Diagnosis 3 Arthrodesis status ( Z98.1) Referral Organization [facility] Referring Provider First Name Rajesh Referring Provider [...] Status Risk Notes Problem Chronic pain syndrome (301355341) Chronic pain syndrome (G89.4) 09/15/19 Active confirmed Problem Cervical spondylosis without myelopathy (133911666) Other spondylosis with radiculopathy, cervical region (M47.22) 09/15/19 Active confirmed Problem Degeneration of cervical intervertebral disc (98126618) Other cervical disc degeneration, unspecified cervical region (M50.30) 09/15/19 Active confirmed Problem Post-laminectomy syndrome (44625870) Postlaminectomy syndrome, not elsewhere classified (M96.1) 09/15/19 Active confirmed Problem Abnormal gait (55339701) Unspecified abnormalities of gait and mobility (R26.9) 09/15/19 Active confirmed Problem High risk drug monitoring status (658985390) 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 (Z79.891) 09/15/19 Active confirmed Problem Cervical radiculopathy (04267530) Cervical radiculopathy (M54.12) Active confirmed Problem Degeneration of cervical intervertebral disc (55866515) Degenerative disc disease, cervical (M50.30) Active confirmed Problem 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29 kg/m2 10/05/2024 Encounters Encounter Location Date Provider Diagnosis [facility] [place] [address] [place] [address] 02/17/2024 Deedee Villarreal [facility] [place] [address] [place] [address] 10/05/2024 Deedee Villarreal Chronic pain syndrom e G89.4 ; Other spondylosis with radiculopathy, cervical region M47.22 ; Myalgia of auxiliary muscles, head and neck M79.12 ; Unspecified abnormalities of gait and mobility R26.9 ; Postlaminectomy syndrome, not elsewhere classified M96.1 ; Other cervical disc degeneration, unspecified cervical region M50.30 and 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 Z79.891 [facility] [place] [address] [place] [address] 08/24/2024 Deedee Villarreal Chronic pain syndrom e G89.4 ; Other spondylosis with radiculopathy, cervical region M47.22 ; Myalgia of auxiliary muscles, head and neck M79.12 ; Unspecified abnormalities of gait and mobility R26.9 ; Postlaminectomy syndrome, not elsewhere classified M96.1 ; Other cervical disc degeneration, unspecified cervical region M50.30 and 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 Z79.891 [facility] [place] [address] [place] [address] 06/22/2024 Deedee Villarreal Chronic pain syndrom e G89.4 ; Other cervical disc degeneration, unspecified cervical region M50.30 ; Other spondylosis with radiculopathy, cervical region M47.22 ; Myalgia of auxiliary muscles, head and neck M79.12 ; Postlaminectomy syndrome, not elsewhere classified M96.1 ; Unspecified abnormalities of gait and mobility R26.9 and 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 Z79.891 [facility] [place] [address] [place] [address] 05/24/2024 Mode Cabello Chronic pain syndrom e G89.4 ; Other cervical disc degeneration, unspecified cervical region M50.30 ; Other spondylosis with radiculopathy, cervical region M47.22 ; Myalgia of auxiliary muscles, head and neck M79.12 ; Postlaminectomy syndrome, not elsewhere classified M96.1 ; Unspecified abnormalities of gait and mobility R26.9 and 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 Z79.891 [facility] [address] [address] 05/04/2024 Rajesh Serna Cervical paraspinal muscle spasm M62.838 ; Chronic pain syndrome G89.4 ; Degenerative disc disease, cervical M50.30 ; Cervical radiculopathy M54.12 and Arthrodesis status Z98.1 [facility] [place] [address] [place] [address] 04/26/2024 Mode Cabello Chronic pain syndrom e G89.4 ; Other spondylosis with radiculopathy, cervical region M47.22 ; Other cervical disc degeneration, unspecified cervical region M50.30 ; Myalgia of auxiliary muscles, head and neck M79.12 ; Postlaminectomy syndrome, not elsewhere classified M96.1 ; Unspecified abnormalities of gait and mobility R26.9 and 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 Z79.891 [facility] [place] [address] [place] [address] 03/30/2024 Deedee Villarreal Chronic pain syndrom e G89.4 ; Other cervical disc degeneration, unspecified cervical region M50.30 ; Other spondylosis with radiculopathy, cervical region M47.22 ; Postlaminectomy syndrome, not elsewhere classified M96.1 ; Myalgia of auxiliary muscles, head and neck M79.12 ; Unspecified abnormalities of gait and mobility R26.9 and 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 Z79.891 [facility] [place] [address] [place] [address] 02/15/2024 Rajesh Serna Cervical radiculopathy M54.12 ; Cervical paraspinal muscle spasm M62.838 ; Arthrodesis status Z98.1 ; Pain in right upper arm M79.621 ; Pain in left upper arm M79.622 and Loosening of hardware in spine T84.498A [facility] [place] [address] [place] [address] 01/13/2024 Deedee [facility] [place] [address] [place] [address] 12/22/2023 Mode Poolmichelle [facility] [place] [address] [address] 01/31/2024 Paxton Nobles Arthrodesis status Z98.1 ; Cervical pain (neck) M54.2 ; Degenerative disc disease, cervical M50.30 ; Facet arthropathy, cervical M46.92 and Paraspinal muscle spasm M62.830 [facility] [place] [address] [place] [address] 11/25/2023 Deedee Villarreal [facility] [place] [address] [address] 04/10/2024 Rajesh Serna Cervical paraspinal muscle spasm M62.838 ; Degenerative disc disease, cervical M50.30 ; Cervical radiculopathy M54.12 ; Pain in left upper arm M79.622 and Pain in right upper arm M79.621 [facility] [address] [place] [address] 03/30/2024 Mode Cabello [facility] [address] [address] 03/30/2024 Rajesh Kareem [facility] [place] [address] [address] 02/08/2024 Paxton Nobles [facility] [address] [place] [address] 01/11/2024 Judah Shelton [facility] [address] [place] [address] 12/09/2023 Judah Shelton [facility] [address] [place] [address] 11/23/2023 Corby Mena [facility] [address] [place] [address] 11/05/2023 Andrea Nachtigal [facility] 0 0 02/06/2024 Provider Migration [facility] 0 0 02/05/2024 Provider Migration [facility] [address] [place] [place] [address] 05/30/2024 Deedee Villarreal [facility] [place] [address] [place] [place] [address] 04/14/2024 Mode Cabello [facility] [place] [address] [place] [address] 10/05/2024 Desiree [place] Other spondylosis with radiculopathy, cervical region M47.22 [facility] [place] [address] [place] [address] 08/24/2024 Mode Cabello Other spondylosis with radiculopathy, cervical region M47.22 [facility] [address] [place] [place] [address] 08/17/2024 Mode Cabello [facility] [place] [address] [place] [address] 07/10/2024 Deedee Villarreal [facility] [place] [address] [place] [address] 06/22/2024 Mode Cabello Chronic pain syndrom e G89.4 and Other spondylosis with radiculopathy, cervical region M47.22 [facility] [place] [address] [place] [place] [address] 06/05/2024 Mode Cabello Other spondylosis with radiculopathy, cervical region M47.22 [facility] [place] [address] [place] [place] [address] 05/17/2024 Mode Cabello Assessments Encounter Date Diagnosis (ICD Code) Assessment [...] Degenerative disc disease, cervical (ICD-10 - M50.30) 01/31/2024 Cervical pain (neck) (ICD-10 - M54.2) 02/15/2024 Cervical radiculopathy (ICD-10 - M54.12) 02/15/2024 Cervical paraspinal muscle spasm (ICD-10 - M62.838) 01/31/2024 Arthrodesis status (ICD-10 - Z98.1) 05/04/2024 Chronic pain syndrome (ICD-10 - G89.4) 05/04/2024 Cervical paraspinal muscle spasm (ICD-10 - M62.838) 08/24/2024 Other spondylosis with radiculopathy, cervical region [...] radiculopathy, cervical region (ICD-10 - M47.22) 08/24/2024 Chronic pain syndrome (ICD-10 - G89.4) [...] 06/22/2024 Chronic pain syndrome (ICD-10 - G89.4) 06/22/2024 Chronic pain syndrome (ICD-10 - G89.4) [...] to monitor for treatment effectiveness and compliance. 05/24/2024 Other cervical disc degeneration, unspecified cervical region (ICD-10 - M50.30) 06/05/2024 Other spondylosis with radiculopathy, cervical region (ICD-10 - M47.22) 05/24/2024 Chronic pain syndrome (ICD-10 - G89.4) [...] the cervical trial. This will be a RFinitytr[employer] device as we will try the closed-loop [...] effects are noted. Last UDS and [place] COMPOSER TEACHING ARTIST reviewed today. Patient is advised that best long-term goals include increased activity, core strengthening, proper weight management, coping strategies, avoidance of painful triggers, and targeted interventional therapy. We will see the patient for routine follow up in accordance with all clinic policies. We did remind patient today of current guidelines to decrease opioid when possible. We will continue to stress nonopioid treatment. 03/30/2024 Other cervical disc degeneration, unspecified cervical region (ICD-10 - M50.30) 03/30/2024 Chronic pain syndrome (ICD-10 - G89.4) [...] her anxiety has been lately. 03/30/2024 Other spondylosis with radiculopathy, cervical region (ICD-10 - M47.22) 05/24/2024 Other spondylosis with radiculopathy, cervical region (ICD-10 - M47.22) 06/22/2024 Other cervical disc degeneration, unspecified cervical region (ICD-10 - M50.30) 06/22/2024 Other spondylosis with radiculopathy, cervical region (ICD-10 - M47.22) 08/24/2024 Myalgia of auxiliary muscles, head and neck (ICD-10 - M79.12) 10/05/2024 Other spondylosis with radiculopathy, cervical region (ICD-10 - M47.22) 05/04/2024 Degenerative disc disease, cervical (ICD-10 - M50.30) 01/31/2024 Degenerative disc disease, cervical (ICD-10 - M50.30) 02/15/2024 Arthrodesis status (ICD-10 - Z98.1) 04/10/2024 Cervical radiculopathy (ICD-10 - M54.12) 04/26/2024 Other cervical disc degeneration, unspecified cervical region (ICD-10 - M50.30) 04/10/2024 Pain in left upper arm (ICD-10 - M79.622) 04/26/2024 Myalgia of auxiliary muscles, head and neck (ICD-10 - M79.12) 02/15/2024 Pain in right upper arm (ICD-10 - M79.621) 01/31/2024 Facet arthropathy, cervical (ICD-10 - M46.92) 05/04/2024 Cervical radiculopathy (ICD-10 - M54.12) 10/05/2024 Myalgia of auxiliary muscles, head and neck (ICD-10 - M79.12) 08/24/2024 Unspecified abnormalities of gait and mobility (ICD-10 - R26.9) 06/22/2024 Other spondylosis with radiculopathy, cervical region (ICD-10 - M47.22) 05/24/2024 Myalgia of auxiliary muscles, head and neck (ICD-10 - M79.12) 03/30/2024 Postlaminectomy syndrome, not elsewhere classified (ICD-10 - M96.1) 06/22/2024 Myalgia of auxiliary muscles, head and neck (ICD-10 - M79.12) 03/30/2024 Myalgia of auxiliary muscles, head and [...] the procedure and all questions were answered. 10/05/2024 Unspecified abnormalities of gait and mobility (ICD-10 - R26.9) 05/04/2024 Arthrodesis status (ICD-10 - Z98.1) 02/15/2024 Pain in left upper arm (ICD-10 - M79.622) 01/31/2024 Paraspinal muscle spasm (ICD-10 - M62.830) 04/10/2024 Pain in right upper arm (ICD-10 - M79.621) 04/26/2024 Postlaminectomy syndrome, not elsewhere classified (ICD-10 - M96.1) 04/26/2024 Unspecified abnormalities of gait and mobility (ICD-10 - R26.9) 02/15/2024 Loosening of hardware in spine (ICD-10 - T84.498A) 10/05/2024 Postlaminectomy syndrome, not elsewhere classified (ICD-10 - M96.1) 08/24/2024 Other cervical disc degeneration, unspecified cervical region (ICD-10 - M50.30) 05/24/2024 Unspecified abnormalities of gait and mobility (ICD-10 - R26.9) 06/22/2024 Postlaminectomy syndrome, not elsewhere classified (ICD-10 - M96.1) 03/30/2024 Unspecified abnormalities of gait and mobility (ICD-10 - R26.9) 03/30/2024 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 Last UDS and AR COMPOSER TEACHING ARTIST reviewed today. Patient is advised that best [...] abide by our urine testing policy. 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 01/31/2024 Other 63 minutes spent with over [...] appointment. She will plan to follow-up in [place] as per her request in approximately 2 [...] per Dr. Abhishek Canela, Vacular Surgeon in [place] after stent placement in the lower extremities. [...] Name Order Date Cervical Spine AP/Lat 2-3 Views-[id number] zzzCT Outside CD 06/20/2024 Schedule Confirmation 03/06/2024 Schedule Confirmation 03/06/2024 Schedule Confirmation 04/25/2024 Schedule Confirmation 04/25/2024 Future Test Test Name Order Date Implant Spinal Cord Stimulator Trial - 6 3650 05/25/2024 Next Appt Details Provider Name:Mode Cabello, 12/06/2024 09:40:00 AM, [address] [place], [address], Insurance Providers Payer Name Payer Address Payer Phone Subscriber Number Group Number Insured Name Patient Relationship to Insured Coverage Start Date Coverage End Date [place] Medicare [address] [place] [phone] [id number] BARRY VAN Self - patient is the insured [employer] [place] [address] [place] [address] [phone] [id number] BARRY VAN Self - patient is the insured [place] Medicare [address] [address] [place] [address] [phone] [id number] BARRY VAN Self - patient is the insured Medical (General) History Surgical History Surgery Date(Month/Year) Neck surgeries left ankle surgery Jaw surgeries Hysterectomy Hernia surgery section Breast biopsy appendectomy
--- OUTSIDE RECORDS SUMMARY | 2024-11-04 04:06 | XMS_ITS | Data Portability ---
Author Organization [place] [place] Address [address] [place] [address] Care Team Providers Care Switching Clerk Name Role Phone FELIX KEN Referring Provider [phone] [employer] Care Provider PJ BERGERON Neurologist Assessment No assessment recorded. Plan of Treatment Reminders Order Date Submit Date Provider Last Modified By Organization Details Last Modified Time Details Appointments None recorded. Lab clostridium difficile Ag + toxin, stool 2019 020 CHRISTIANO [facility] (Lab), [address] [facility]/[place], [address], 1 05:33:25 Referral None recorded. Procedures None [...] Address Organization Details Recorded Time Restless legs 89185149 Active Von gustafson, [facility] 0 14:41:51 Bradycardia 44067302 Active Von Jordan null, [facility] 0 14:41:51 Nausea and vomiting 43444095 Active Von Jordan null, [facility] 0 14:41:51 Hypomagnesemia 061620224 Active Von Alfaroner null, [facility] 0 14:41:52 Neuropathy 839193654 Active Von Alfaroner null, [facility] 0 14:41:52 Fracture of hand 21679597 Active Von Jordan null, [facility] 0 14:41:52 Discharge status 123600479 Active Von Jordan null, [facility] 0 14:41:52 Fall Active Von Alfaroner null, [facility] 0 14:41:52 Tremor 50956678 Active Von Jordan null, [facility] 0 14:41:52 Hypophosphatem ia 6339317 Active Von Jordan null, [facility] 0 14:41:52 Chronic pancreatitis 235418362 Active Von Jordan null, [facility] 0 14:41:52 Erosive esophagitis 83079015 Active Von Jordan null, [facility] 0 14:41:52 Acute renal impairment 613277948 Active Von Jordan null, [facility] 0 14:41:52 Nausea, vomiting and diarrhea 0733650 Active Von Jordan null, [facility] 0 14:41:52 Generalized anxiety disorder 67940719 Active Von Jordan null, [facility] 0 14:41:52 Anemia 331769201 Active Von Jordan null, [facility] 0 14:41:52 Moderate protein energy malnutrition 988427934 Active Von Jordan null, [facility] 0 14:41:52 Asthenia 64841955 Active Von Jordan null, [facility] 0 14:41:52 Pain in right lower limb 404378319 Active Von Jordan null, [facility] 0 14:41:52 Sprain of shoulder 5763009 Active Von Jordan null, [facility] 0 14:41:52 Chronic constipation 544403927 Active Von Jordan null, [facility] 0 14:41:52 Iron deficiency anemia 28866429 Active Von Jordan null, [facility] 0 14:41:52 Urinary tract infectious disease 10077394 Active Von Jordan null, [facility] 0 14:41:52 Sprain of wrist 68372381 Active Von Jordan null, [facility] 0 14:41:52 Headache disorder 278932240 Active Von Jordan null, [facility] 0 14:41:52 Hiatal hernia 02806444 Active Von Jordan null, [facility] 0 14:41:52 Epilepsy 25213263 Active Von Jordan null, [facility] 0 14:41:53 Seizure disorder 153880627 Active Von Jordan null, [facility] 0 14:41:53 Abdominal pain - cause unknown 916583785 Active Von Jordan null, [facility] 0 14:41:53 Low blood pressure 52323236 Active Von Jordan null, [facility] 0 14:41:53 Gastroesophage al reflux disease 173201686 Active Von Jordan null, [facility] 0 14:41:53 Fever 063919341 Active Von Jordan null, [facility] 0 14:41:53 Hypokalemia 84401095 Active Von Jordan null, [facility] 0 14:41:53 Epigastric pain 25344888 Active Von Jordan null, [facility] 0 14:41:53 Herpes labialis 5560356 Active Von Jordan null, [facility] 0 14:41:53 Hypothyroidism 03219422 Active Von Jordan null, [facility] 0 14:41:53 Paraesophageal hernia 6277533 Active [address], [place], [address], [facility] 0 15:20:43 Acute diarrhea 563718746 Active [address], [place], [address], [facility] 0 15:20:53 Problem Notes None recorded. Procedures Surgical History Date Name Laterality Status Provider Name and Address Organization Details Recorded Time Hysterectomy - Total completed [facility] 10/04/2019 15:10:57 section completed [facility] 10/04/2019 15:11:04 Ectopic completed [facility] 10/04/2019 15:11:22 Appendectomy completed [facility] 10/04/2019 15:11:32 Cholecystectomy (Gallbladder) completed [facility] 10/04/2019 15:11:39 procedure on ankle completed [facility] 10/04/2019 15:11:49 Breast Biopsy completed [facility] 10/04/2019 15:12:13 cataract surgery completed [facility] 10/04/2019 15:12:27 hernia repair completed [facility] 10/04/2019 15:13:15 Imaging Results None recorded. Procedure Notes None recorded. Medical Equipment None Reported. Allergies Allergen ID Allergen Name Allergen Category Reaction Reaction Severity Criticality Documentation Date Start Date Code Code System Note Provider Name and Address Organization Details Recorded Time 8720205 Benadryl medicatio n other Not available Not available 10/04/2019 01059 7 RxNorm restl ess legs Vonrosamaria Jordan [facility] 0 15:06:00 6074328 amitripty line medicatio n other Not available Not available 10/04/2019 704 RxNorm Restl ess legs Von Jordan [facility] 0 15:06:25 Medications Name Sig Start Date [...] e 20,000-63,0 00-84,000 [place] [address] unitss by oral route. 2019 active Not Available Not Available Not Avai lable Vitals Date Recorded Body height Body mass index (BMI) Body weight Oxygen saturation Oxygen saturation in Arterial blood by Pulse oximetry Heart rate Systolic And Diastolic Provider Name and Address Organization Details Last Updated DateTime 0 166.37 cm 22.8 kg/m2 00262.3 4 g 97 % 97 % 73 /min 112/72 mm[Hg] Von Alfaroner [email or web address] 0 15:15:36 Social History Question Answer Notes LastModified by Organizat ion Details LastModified Time Tobacco Smoking Status Former Smoker Von gsutafson, [email or web address] 10/04/2019 15:09:56 Marital Status [email or web address] Informatio n not available 10/04/2019 How Many Years Have You Smoked Tobacco? 2 [email or web address] Information not available 10/04/2019 Sex: Unknown Functional Status Question Answer Note LastModified by Organizat ion Details LastModified Time What is your level of alcohol consumption? None [email or web address] Information not available 10/04/2019 Are you currently employed? 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 Family History Nothing Reported. Medical History No medical history recorded. Gynecological HistoryNo gynecological history recorded. Obstetrics History GPAL:G 0 P 0 0 0 0 Past Encounters Encounter ID Performer Location Encounter Start Date Encounter Closed Date Diagnosis/Indication Diagnosis SNOMED-CT Code Diagnosis ICD10 Code Diagnosis Note [id number] Stu Pickering MD [facility] [address] [facility] [address] [place] [address] 10/04/2019 14:25:56 10/04/2019 15:27:43 Paraesophageal hernia 9336734 K44.9 I have instructed the patient to resume normal activities and follow up with myself on an as needed basis. Patient states understand ing and agreement with the above plan. Patient is extremely pleased with their surgical care and results. Acute diarrhea 074097784 R19.7 Health Concerns Section Related Observation LastModified by Organization Detai ls LastModified Time None Recorded Concern Status LastModified by Organization Details LastModified Time None Recorded Advance Directives Directive None Recorded Payers Insurance Date Sequence Insurance Name Policy Number Policy Rivera Covered Member ID Rivera Member ID Guarantor Name 12/04/2021 1 [employer] [id number] Tosha Perry [id number] Tosha Perry Notes Date Note Type Note Provider Name and Address Organization Details Recorded Time 10/04/2019 text/html ROS as noted in the HPI Patient is status post laparoscopic paraesophageal hernia repair 09/20/2019. She [...] Pickering MD [address], [place], [address], [facility] 10/04/2019 17:35:50 OBGyn Episode No OBEpisode recorded.
--- OUTSIDE RECORDS SUMMARY | 2024-11-04 04:06 | XMS_ITS | Data Portability ---
Author Organization [facility] [place] Mati [facility], Job, [facility] Address [address] [place] [address] Care Team Providers Care Restrooms Or Lounges Maid Name Role Phone BOO GARCIA Primary Care Provider Unavailabl e Assessment No assessment recorded. Plan of Treatment Reminders Order Date Submit Date Provider Last Modified By Organization Details Last Modified Time Details Appointments OFFICE VISIT 2024 01:40P Anny GARCIA PA-C Not available Not available Not available Lab None recorded. Referral cardiolog ist referral 2024 025 [place] [address] [facility], [address] [place] [address], [address], 08/06/2024 16:58:39 physical therapist referral 2024 025 [email or web address], [address], [address], 07/18/2024 16:12:28 Procedures None recorded. Surgeries None recorded. Imaging None recorded. Medication Orders albuterol sulfate HFA 90 mcg/actua tion aerosol inhaler 2024 025 [id number], [address], [place], [place], [id number], 07/24/2024 12:04:49 prednison e 20 mg tablet 2024 025 [id number], [address], [place], [place], [id number], 08/10/2024 17:54:17 doxycycli ne hyclate 100 mg capsule 2024 025 [facility][id number], [address], [place], [place], [id number], 08/10/2024 17:54:06 ropinirol e 3 mg tablet [address] [facility][id number], [address], [place], [place], [id number], 06/30/2024 14:07:29 prednison e 20 mg tablet [address] [id number], [address], [place], [place], [id number], 08/10/2024 17:54:06 Patient TargetsNo targets recorded. Patient InstructionsNo instructions recorded. Reason for Referral Physical Therapist Referral for Chronic neck pain Referring Physician: [facility], Encounter Date: 07/06/2024 [employer] Referral for Ch est pain Referring Physician: [facility], Encounter Date: 07/06/2024 Results Created Date Observation Date Name Description Value Unit Range Abnormal Flag Note LastModifiedBy Organization Detail LastModifiedTime 05/25/1905/24/2024 XR, abdom en No observ ation record ed. [address] [place], [address], 05/25/2024 17:14:47 Result Notes None recorded. Problems Name Problem SNOMED Code Status Onset Date Resolution Date Notes Provider Name and Address Organization Details Recorded Time Hand pain 67633564 Completed 202205/14/2024 [facility] Hand pain 86669970 Completed 202205/14/2024 NICOLE gustafson, [facility] 5 07:55:15 Low back pain 817492217 Completed 202305/14/2024 NICOEL gustafson, [facility] 5 18:20:21 Deep venous thrombosi s of lower extremity 172137608 Completed 202305/14/2024 at [facility] non occlusi ve. IVC placed due to no able to take blood thinner s. NICOLE gustafson, [facility] 5 07:54:08 Chronic pain 86861267 Active 2023 NICOLE gustafson, [facility] 5 07:54:43 Hospital inpatient stay within past 30 days 48842157444 06 Completed 202305/14/2024 NICOLE gustafson, [facility] 5 07:55:38 History of cervical spine fusion 50041023545 01 Completed 202305/14/2024 [facility] 5 07:55:29 Hypothyro idism 71224855 Active 2023 NICOLE gustafson, [facility] 5 07:55:43 Depressiv e disorder 00921492 Active 2023 NICOLE gustafson, [facility] 5 07:54:53 Gastroeso phageal reflux disease without esophagit is 321532875 Active 2023 NICOLE gustafson, [facility] 5 07:55:09 Anxiety 34789408 Active 2023 NICOLE HAEFFNER null, [facility] 5 07:54:40 Rib pain 357523531 Completed 202305/14/2024 NICOLE HAEFFNER null, [facility] 5 07:57:21 Nausea 462062330 Completed 202305/14/2024 NICOLE HAEFFNER null, [facility] 5 07:55:56 Peptic ulcer 49431820 Completed 202305/14/2024 NICOLE HAEFFEDD null, [facility] 5 07:57:13 Pain in bilateral legs 93404044043 191174 Completed 202305/14/2024 NICOLE HALESLYFEDD null, [facility] 5 07:56:52 Pain in left lower limb 209487281 Completed 202305/14/2024 NICOLE HAEFFNER null, [facility] 5 07:57:01 Acquired dilation of bile duct 30313207798 95867 Completed 202305/14/2024 NICOLE HALESLYFEDD null, [facility] 5 07:54:30 Deep venous thrombosi s 014749341 Completed 202305/14/2024 NICOLE HAEFFNER null, [facility] 5 07:54:50 Anemia 790149134 Active 2023 NICOLE HAEFFNER null, [facility] 5 07:54:37 Pain in right arm 486854662 Completed 202305/14/2024 NICOLE HAEFFNER null, [facility] 5 07:57:07 Right upper quadrant pain 752498411 Completed 202305/14/2024 NICOLE gustafson, [facility] 5 07:57:36 Nausea and vomiting 80951424 Completed 202305/14/2024 NICOLE gustafson, [facility] 5 07:56:02 Edema 090381871 Completed 202305/14/2024 NICOLE gustafson, [facility] 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 5 08:05:04 Low back pain 141567068 Active 2024 NICOLE gustafson, [facility] 5 18:20:21 Restless legs 45177998 Active 2024 NICOLE CRANE null, [facility] 5 18:20:23 Chronic insomnia 410242241 Active 2024 NICOLE gustafson, [facility] 5 18:31:19 Problem Notes None recorded. Procedures Surgical History Date Name Laterality Status Provider Name and Address Organization Details Recorded Time 2023 insertion of arterial stent completed JER GARCIA PA-C [address] [place] [address], [address], [facility] 4 15:12:39 2023 colonoscopy completed BOO GARCIA PA-C [address] [place], [address], [facility] 4 17:29:05 2023 esophagogastroduodenoscopy completed BOO GARCIA PA-C [address] [place], [address], [facility] 4 17:08:01 2023 ultrasonography of liver completed NICOLE CRANE [facility] 4 16:43:05 2023 primary posterior decompression cervical cord and fusion completed BOO GARCIA PA-C [address] [place], [address], [facility] 4 13:58:12 2023 insertion of inferior vena caval filter completed BOO GARCIA PA-C [address] [place], [address], [facility] 4 13:58:28 2022 primary fusion of cervical spine completed BOO GARCIA PA-C [address] [place], [address], [facility] 3 12:50:26 Imaging Results None recorded. Procedure Notes None recorded. Medical Equipment None Reported. Allergies Allergen ID Allergen Name Allergen Category Reaction Reaction Severity Criticality Documentation Date Start Date Code Code System Note Provider Name and Address Organization Details Recorded Time 72712 Benadryl medicatio n Not available Not available Not available 03/12/2023 11409 7 RxNorm NICOLE CRANE [facility] 3 12:01:01 58253 amitripty line medicatio n Not available Not available Not available 03/12/2023 704 RxNorm NICOLE gustafson [facility] 3 12:01:37 92160 tizanidin e medicatio n Not available Not available Not available 03/12/2023 78901 RxNorm NICOLE gustafson [facility] 3 12:08:21 93271 morphine medicatio n confusion Not available [facility] 09/02/2023 7052 RxNorm BOO GARCIA PA-C [address] [place] [address], [address], [facility] 4 15:15:03 Medications Name Sig Start Date [...] Available Not Available meclizine 12.5 mg tablet Take 1 tablet 3 times a day by oral route as needed. 2024 active Not Available Not Available Not Avai lable potassium chloride ER 10 mEq tablet,ext ended [...] HOURS NEEDED FOR ANXIETY FOR 3 DAY 10/30 completed Not Available Not Available Not Available furosemide 80 mg tablet TAKE 1 [...] TABLET BY MOUTH EVERY DAY AT BEDTIME 11/02 completed Not Available Not Available Not Available oxycodone 10 mg tablet TAKE [...] Syringe Ultra-Fine 1 mL 31 gauge x 08/25 USE DIRECTED active Not Available Not Available No t Available Simbrinza 1 %-0.2 % eye drops,susp ension 05/24 completed eyes swell Not Available Not Available Not Available potassium chloride ER 20 mEq tablet,ext ended release Take 1 tablet every day by oral route for 30 days. 2024 active Not Available Not Available Not Avai lable Movantik 12.5 mg tablet TAKE 1 TABLET BY MOUTH EVERY DAY IN THE MORNING 04/11 completed Not Available Not Available Not Available Movantik 25 mg tablet TAKE 1 TABLET BY MOUTH EVERY DAY 11/02 completed Not Available Not Available Not Available Vitals Date Recorded Body height Body mass index (BMI) Body weight Oxygen saturation Oxygen saturation in Arterial blood by Pulse oximetry Heart rate Respiratory rate Body temperature Systolic And Diastolic Provider Name and Address Organization Details Last Updated DateTime 5 163.83 cm 25.7 kg/m2 56219.0 4 g 98 % 98 % 80 /min 18 /min 98 [degF] 136/80 mm[Hg] NICOLE [facility] 5 13:09:27 Date Recorded Body height Body mass index (BMI) Body weight Oxygen saturation Oxygen saturation in Arterial blood by Pulse oximetry Heart rate Respiratory rate Body temperature Systolic And Diastolic Provider Name and Address Organization Details Last Updated DateTime 5 163.83 cm 25.5 kg/m2 40483.4 5 g 95 % 95 % 78 /min 18 /min 97.9 [degF] 138/80 mm[Hg] [facility] 14:51:17 Date Recorded Body height Body mass index (BMI) Body weight Oxygen saturation Oxygen saturation in Arterial blood by Pulse oximetry Heart rate Respiratory rate Systolic And Diastolic Provider Name and Address Organization Details Last Updated DateTime 5 163.83 cm 24.5 kg/m2 07327.8 9 g 99 % 99 % 62 /min 19 /min 130/80 mm[Hg] MALENA VACA [facility] 5 11:50:04 Date Recorded Body height Body mass index (BMI) Body weight Oxygen saturation Oxygen saturation in Arterial blood by Pulse oximetry Heart rate Respiratory rate Body temperature Systolic And Diastolic Provider Name and Address Organization Details Last Updated DateTime 163.83 cm 23.8 kg/m2 84163.5 2 g 99 % 99 % 76 /min 18 /min 97 [degF] 136/80 mm[Hg] NICOLE CRANE [facility] 14:52:39 Date Recorded Body height Body mass index (BMI) Body weight Oxygen saturation Oxygen saturation in Arterial blood by Pulse oximetry Heart rate Respiratory rate Body temperature Systolic And Diastolic Provider Name and Address Organization Details Last Updated DateTime 163.83 cm 24.2 kg/m2 97751.7 1 g 94 % 94 % 82 /min 20 /min 96.4 [degF] 114/60 mm[Hg] Meera Bowden [facility] 14:33:12 Social History Question Answer Notes LastModified by [place] Details LastModified Time Tobacco Smoking Status Former Smoker [facility] 09/05/2023 15:56:32 Which Illicit Or Recreational Drugs Have You Used? Leilani [email or web address] Information not available 11/02/2024 What Was The Date Of Your Most Recent Tobacco Screening? 11/02/2024 [email or web address] Information not available 11/02/2024 At What Age Did You Start Smoking Tobacco? 49 For 3 Weeks Only [email or web address] Information not available 11/02/2024 Sex: Unknown Functional Status Question Answer Note LastModified by [employer]at [employer] Details LastModified Time Do you use any illicit or recreational drugs? Yes [email or web address] Information not available 11/02/2024 What is your level of alcohol consumption? None [email or web address] Information not available 11/02/2024 Mental Status None recorded. Family History Nothing Reported. Medical History No medical history recorded. Gynecological HistoryNo gynecological history recorded. Obstetrics History GPAL:G 0 P 0 0 0 0 Immunizations Vaccine Type Date Status Note Provider Nam e and Address Organization Details Recorded Time COVID-19, mRNA, LNP-S, PF, errol-sucrose, 30 mcg/0.3 mL 4 completed Gracie gustafson, [facility] 11/12/2023 15:11:33 Influenza, split virus, trivalent, PF 4 completed [facility] Available [facility] 11/02/2024 14:26:27 Pneumococcal conjugate PCV20, polysaccharide [id number] conjugate, adjuvant, PF 5 completed NICOLE gustafson, [facility] 05/24/2024 16:17:51 Past Encounters Encounter ID Performer Location Encounter Start Date Encounter Closed Date Diagnosis/Indication Diagnosis SNOMED-CT Code Diagnosis ICD10 Code Diagnosis Note [id number] BOO GARCIA PA-C [facility] [address] [place] [phone] 03/12/2023 11:51:10 03/15/2023 10:06:45 Pain in right hand 1468833057 91950 M79.641 Ganglion c yst of right wrist 3329452059 65164 M67.431 Acute urin albert tract infection 455995752 N39.0 Cervical spondylosis 387 280948 M47.812 C3/[address] Hung Feb 01 Chronic low back pain 27 8043281 M54.50 Gallstone pancreatitis 49905802 K85.10 Has enlarge CBD on CT 14.5 mm. GB is absent Administra tion of viral vaccine 15480812 Z23 Rheumatoid arthritis [address] Crabtree CCA form filled out during today's office visit [id number] BOO GARCIA PA-C [facility] ([facility] [address] [place] [phone] 04/15/2023 14:41:58 04/15/2023 16:52:11 Neuropathy 976736165 G62.9 Candidiasis of mouth 797 00236 B37.0 will tx with oral meds with suspiscion she may have some esophageal candidiasi s. Nausea and vomiting 1691999 R11.2 Iron defic iency anemia 53841161 D50.9 Hypothyroidism 31316434 E03.9 Rheumatoid arthritis [address] Crabtree CCA form filled out during today's office visit Low back pain 983560272 M54.50 [id number] BOO GARCIA PA-C [facility] ([facility]) [address] [place] [phone] 05/19/2023 13:23:55 05/25/2023 12:39:49 History of cervical spine fusion 0304571668 101 Z98.1 2.2.24 Posterior C2-T1 with Dr. Hung (3 neck surgeries in total) Upper gastrointestinal bleeding 27546591 K92.89 scope 03/[address] Ruiz. Deep venou s thrombosis 199226564 I82.409 found 2.2.24 not a candidate for anticoat due to recent GI bleed so IVC placed. Generalize d anxiety disorder 61764303 F41.1 monitor Benzo requests. Has several rxes xanax, valium and clonazepam from [facility] PCP, Dr. Hung ortho, and Dr. Gomes saw in SNF. Chronic pain syndrome 37 0634766 G89.4 Oxcontin 7.[address] Lisa. Recently increased to 10mg q 4 hrs from recent surgery. (temporary rx for [place] given waiting for Oxy to come in then d/margaret 2.8.24 KM) Anemia 812750356 D64.9 cbc, cmp on Wednesday [id number] Srinivasan Gomes DO [facility] [address] [place] [phone] 05/25/2023 08:03:34 05/31/2023 12:19:42 Hospital inpatient stay within past 30 days 4019701974 106 Z76.89 History of cervical spine fusion 3089518385 101 Z98.1 Hypothyroidism 19844162 E03.9 Chronic pain 54320187 G8 9.29 Depressive disorder 3548 9007 F32.A Gastroesop hageal reflux disease without esophagitis 922679615 K21.9 [id number] Srinivasan Gomes DO [facility] [address] [place] [phone] 06/01/2023 09:36:24 06/09/2023 06:46:40 Anxiety 87107577 F41.9 Chronic pain 47554253 G8 9.29 History of cervical spine fusion 5174924755 101 Z98.1 [id number] Srinivasan Gomes DO [facility] [address] [place] [phone] 06/08/2023 08:37:13 06/10/2023 16:36:08 History of cervical spine fusion 0677760467 101 Z98.1 Anxiety 76775908 F41.9 Chronic pain 60208979 G8 9.29 Depressive disorder 3548 9007 F32.A [id number] Srinivasan Gomes DO [facility] [address] [place] [phone] 06/15/2023 09:21:43 06/28/2023 15:09:18 History of cervical spine fusion 9605318982 101 Z98.1 Low back pain 825563147 M54.50 Depressive disorder 3548 9007 F32.A [id number] Ulysses Rivera MD [facility] [address] [place] [phone] 06/24/2023 12:59:38 06/27/2023 18:03:54 Anxiety 65394505 F41.9 Refill provided for medication . Rib pain 272382393 R07.8 1 Patient has pain along her [...] over the next 4 to 8 weeks. [id number] BOO GARCIA PA-C [facility] [address] [place] [phone] 07/02/2023 09:48:49 07/02/2023 10:43:55 Spinal stenosis in cervical region 15360093 M48.02 Hospital i npatient stay within past 30 days 7388833186 106 Z76.89 Generalize d anxiety disorder 94902852 F41.1 monitor Benzo requests. Has several rxes xanax, valium and clonazepam from [facility] PCP, Dr. Anabell house, and Dr. Gomes saw in SNF. Opioid dependence 149486 00 F11.20 post cervical surgery 06/05. Getting in to Dr. Hung. [id number] BOO GARCIA PA-C [facility] [address] [place] [address] 08/03/2023 15:31:05 08/07/2023 08:56:13 Peptic ulcer 75903265 K27.9 EGD 11.1.23 neg H.pylori then Deep venou s thrombosis 583925003 I82.409 found 2.2.24 not a candidate for anticoat due to recent GI bleed so IVC placed. Abdominal pain 82359711 R10.9 Anemia 616100114 D64.9 Chronic pain 51709258 G8 9.29 dose drops from 600 to 300 to see if helps with her nausea [id number] BOO GARCIA PA-C [facility] [address] [place] [phone] 09/02/2023 14:20:34 09/02/2023 17:34:26 Abdominal pain 23115443 R10.9 since pt is in the worst pain of her life I recommend she go to ER to get work up of her abd pain and get pain control for her chronic cervical stenosis with recent surgery that so far has not been helpful. Spinal cindy nosis in cervical region 86558228 M48.02 [id number] MALIK BRUSH [facility] [address] [place] [id number] 09/05/2023 15:44:16 09/06/2023 13:27:43 Middle ear effusion 3057432574 H74.8X9 Discussed use of antibiotic the full 7 days. May take tylenol/mo rima for discomfort .Return if you develop worsening pain, drainage from the ear or concerns arise. Vertigo 581296772 R42 [id number] BOO GARCIA PA-C [facility] [address] [place] [phone] 09/20/2023 11:54:13 09/20/2023 16:12:14 [id number] Williams Valerio DO [facility] [address] [place] [phone] 09/20/2023 12:40:32 09/20/2023 13:56:13 Anxiety 71761554 F41.9 Acute sero us otitis media of bilateral ears 6308048785 591661 H65.03 [id number] BOO GARCIA PA-C [facility] [address] [place] [phone] 09/22/2023 11:55:06 09/23/2023 12:29:54 [id number] Srinivasan Gomes DO [facility] [address] [place] [phone] 10/05/2023 08:21:33 10/06/2023 08:39:15 [id number] BOO GARCIA PA-C [facility] [address] [place], [place] [phone] 10/06/2023 12:17:06 10/20/2023 08:37:19 Pain in right arm 751731467 M79.[address] HENRY, [facility] , Anemia 196591195 D64.9 HEMOCCULT x3 due to persistant anemia. GI appt TOMORROW in [facility] Right uppe r quadrant pain 687703445 R10.11 [id number] CLAIRE KILLIAN APRN [facility] [address] [place] [address] 10/09/2023 14:01:50 10/09/2023 14:43:26 Dysuria 42174147 R30.0 Acute urin albert tract infection 021108434 N39.0 [id number] BOO GARCIA PA-C [facility] [address] [place] [phone] 10/13/2023 14:26:50 11/02/2023 17:06:17 Nausea and vomiting 12003661 R11.2 will see what GI finds on scopes Anemia 893327660 D64.9 INJECTIFER 750MG X 2, Acute urin albert tract infection 589149679 N39.0 MACROBID 100MG BID [id number] BOO GARCIA PA-C [facility] [address] [place] [address] 10/20/2023 11:55:15 10/20/2023 14:08:06 Low back pain 432630296 M54.50 d/c to home with current meds and out pt ordersF/U with me in office next week. Constipation 53218278 K5 9.00 Obstructio n of common bile duct 089678563 K83.1 thickening of CMB no CT and U/S. intermitan t emesis with white stools. [id number] BOO GARCIA PA-C [facility] [address] [place] [phone] 10/26/2023 15:17:52 10/26/2023 17:51:16 Peripheral arterial occlusive disease 162401301 I73.9 Left common femoral artery occluded on CT scan with MADONNA .7 on the LeftHas an IVC filter in place.Toda y no evidence of critical limb ischemia. To ER if increased pain/numbn ess in leg, change in temperatur e or color Deep venou s thrombosis of lower extremity 274284369 I82.409 thrombus in R common femoral vein . IVC filter in place. Pt with recent GI bleed.Not able to anticoagul ate at this time. Iron defic iency anemia 59841846 D50.9 INJECTIFER 750MG X 2 doses 7 days apart.Hgb 8.3 at [facility] 7.24. recent EGD/colono scopy 7 with lavern Blanchard. Acute gastrointestinal hemorrhage 29219169 K92.2 cauterizat ion in small intestine on last EGD? per waiting on notes. Chronic pain 01494284 G8 9.29 Chronic neck pain 151443 3885 107 M54.2 Hospital i npatient stay within past 30 days 1169275129 106 Z76.89 meds reconciled . non changed today last ER records CT and labs reviewedSp juanita with Faith Morris MA and she is to fax us her records and we are to fax her last CT, U/S liver and labs. [id number] BOO GARCIA PA-C [facility] [address] [place] [phone] 11/03/2023 14:57:45 11/03/2023 17:25:44 Iron deficiency anemia 28571293 D50.9 INJECTIFER 750MG X 2 doses 7 days apart.Hgb 8.3 at [facility] 10.24.23. recent EGD/colono scopy 10.22.23 with lavern Blanchard. Dysuria 46589459 R30.0 Tinnitus o f vascular origin 349937766 H93.A9 Deep venou s thrombosis of lower extremity 506284373 I82.409 thrombus in R common femoral vein . IVC filter in place. Pt with recent GI bleed.Not able to anticoagul ate at this time. Peripheral arterial occlusive disease 293650155 I73.9 Left common femoral artery occluded on CT scan with MADONNA .7 on the LeftHas an IVC filter in place.Toda y no evidence of critical limb ischemia. To ER if increased pain/numbn ess in leg, change in temperatur e or color [id number] BOO GARCIA PA-C [facility] [address] [place] [phone] 11/09/2023 13:55:02 12/14/2023 07:04:25 Acquired cystic dilatation of common bile duct 435330938 K83.5 Iron defic iency anemia 03973753 D50.9 Set up for injectafer on for first dose.Hgb 8.3 at [facility] 10.24.23. recent EGD/colono scopy 10.22.23 with lavern Blanchard. [id number] BOO GARCIA PA-C [facility] [address] [place] [address] 11/10/2023 12:49:56 11/10/2023 17:31:37 [id number] BOO GARCIA PA-C [facility] ([facility] [address] [place] [address] 11/25/2023 14:58:08 12/14/2023 07:10:16 Deep venous thrombosis of lower extremity 619257006 I82.409 thrombus in R common femoral vein . IVC filter in place. Pt with recent GI bleed Hgb are rising.I will have her to a hemoccult card. If Hgb going up and hemoccult Neg I think if ok with vascular, it would be time to try anticoagul ation with close monitoring of cbcs Iron defic iency anemia 20109947 D50.9 Set up for injectafer Hgb 8.3 at [place] 10.24.23. recent EGD/colono scopy 10.22.23 with lavern Blanchard. [id number] BOO GARCIA PA-C [facility] ([facility]) [address] [place] [address] [phone] 5 12/14/2023 15:13:11 12/14/2023 17:27:18 Anemia 272531965 D64.9 Had one iron infusion needs to schedule her next one. Deep venou s thrombosis 017951385 I82.409 started Eliquis 11.30.23 Restless legs 16012530 G 25.81 Hypothyroidism 20200606 E03.9 [id number] BOO GARCIA PA-C [facility] ([facility]) [address] [place] [address] [phone] 5 01/11/2024 11:50:16 01/17/2024 09:34:21 Cervical radiculitis 50851428 M54.12 Pain of ri ght shoulder joint 1132370437 0194718 M25.511 Peripheral vascular disease 636317129 I73.9 Dr. Dawn moreno managing her arterial disease on the L leg, her chronic DVT on the R leg and her richelle filter.1o05.05 he still wants her on low dose Eliquis Iron defic iency anemia 36194481 D50.9 Her injectafer is helping Last HGb 10.3 at [place] 01/06/24.re cent EGD/colono scopy 10.22.23 with lavern Blanchard. fixed upper GI bleed. Repeat eGD 2 months later was resolved. Hospital i npatient stay within past 30 days [id number] 106 Z76.89 meds reconciled . her eliquis was restarted. [id number] Ulysses Rivera MD [facility] ([facility]) [address] [place] [address] [phone] 5 01/20/2024 16:13:53 01/20/2024 16:54:14 [id number] BOO GARCIA PA-C [facility] ([facility]) [address] [place] [address] [phone] 5 02/08/2024 14:21:48 02/08/2024 15:38:37 Hematemesis 9858358 K92.0 Peripheral vascular disease 707605360 I73.9 Dr. Dawn moreno managing her arterial disease on the L leg, her chronic DVT on the R leg and her richelle filter.keron faith stented her L left. check right leg. no clots. left filter in place and wants her on the Eliquis. Pneumonia 346073960 J18. 9 Hospital i npatient stay within past 30 days 3547071815 106 Z76.89 meds reconciled . her eliquis was restarted. Iron defic iency anemia 51376045 D50.9 Her injectafer is helping Last HGb 10.3 at [place] 01/06/24.re cent EGD/colono scopy 10.22.23 with lavern Blanchard. fixed upper GI bleed. Repeat eGD 2 months later was resolved. [id number] BOO GARCIA PA-C [facility] ([facility]) [address] [place] [address] [phone] 5 03/14/2024 12:48:46 04/04/2024 12:28:10 Anemia 290305579 D64.9 Had one iron infusion needs to schedule her next one. Acquired d ilation of bile duct [id number] 315730 K83.8 Peripheral vascular disease 184678666 I73.9 Dr. Dawn moreno managing her arterial disease on the L leg, her chronic DVT on the R leg and her richelle filter.keron faith stented her L left. check right leg. no clots. left filter in place and wants her on the Eliquis. Spinal cindy nosis in cervical region 32363977 M48.02 [id number] BOO GARCIA PA-C [facility] ([facility]) [address] [place] [address] 45497-755 5 04/11/2024 11:03:08 04/13/2024 12:31:09 Stasis dermatitis of lower limb due to chronic peripheral venous hypertension 369333750 I87.399 Drug-induc ed constipation 22442972 K59.03 Edema 723812716 R60.9 Idiopathic peripheral neuropathy 73421759 G60.9 Hypothyroidism 17673561 E03.9 [id number] BOO GARCIA PA-C [facility] ([facility]) [address] [place] [address] [phone] 5 04/19/2024 14:34:02 04/24/2024 09:23:08 Obstruction of common bile duct 500762681 K83.[address] and U/S. intermitan t emesis with white stools. Rheumatoid arthritis [address] Crabtree [employer] form filled out during today's office visit Opioid dependence 678195 00 F11.20 post cervical surgery 06/05. Getting in to Dr. Hung. Anemia 528408569 D64.9 Had one iron infusion needs to schedule her next one. Hypothyroidism 30787939 E03.9 Anxiety disorder 5601969 06 F41.9 Chronic pain syndrome 37 9370730 G89.4 Oxcontin 7.[address] Lisa. Recently increased to 10mg q 4 hrs from recent surgery. (temporary rx for [place] given waiting for Oxy to come in then d/margaret 2.8.24 KM) Peripheral vascular disease 403051028 I73.9 Dr. Dawn moreno managing her arterial disease on the L leg, her chronic DVT on the R leg and her richelle filter.keron faith stented her L left. check right leg. no clots. left filter in place [facility] [id number] BOO GARCIA PA-C [facility] ([facility]) [address] [place] [address] [phone] 5 05/24/2024 14:51:15 05/24/2024 16:00:13 Chronic neck pain 3010749967 107 M54.2 getting nerve stim with DR. Grider in Jun 06 Atopic dermatitis 887939 01 L20.9 Obstructio n of common bile duct 399760853 K83.[address] CT and U/S. intermitan t emesis with white stools. Administra tion of pneumococcal vaccine 70422687 Z23 Edema 672848484 R60.9 Restless legs 68189879 G 25.81 I looked up meds that can cause formicatio n and her requip is listed which she is on very high doses of. She agrees to back down from tid to bid. Chronic insomnia 4934188 04 F51.04 [id number] BOO GARCIA PA-C [facility] ([facility]) [address] [place] [address] [phone] 5 06/13/2024 12:25:24 06/16/2024 11:56:31 Atopic dermatitis 99125608 L20.9 lower legs. likely from venous stasus Restless legs 07175153 G 25.81 I looked up meds that can cause formicatio n and her requip is listed which she is on very high doses of. She agrees to back down from 5 mg tid to bid.06/13/24 drop her from 5 mg bid to 3 mg po bid. [id number] BOO GARCIA PA-C [facility] ([facility]) [address] [place] [address] [phone] 5 07/06/2024 14:47:05 07/10/2024 15:08:00 Peripheral venous insufficiency 18528722 I87.[address] Tate Chronic neck pain 091013 5221 107 M54.2 getting nerve stim with DR. Grider Chest pain 40897506 R07. 9 Hx PAD. will refer to cardiology for consult and testing to see of she has CAD and stable angina [id number] MALIK BRUSH [facility] ([facility]) [address] [place] [address] [phone] 5 07/24/2024 11:36:22 07/24/2024 14:50:48 Wheezing 41009045 R06.2 Discussed use of prescribed medication s. VSS. If you develop new/worsen ing s/s then return for re-evaluat ion. [id number] BOO GARCIA PA-C [facility] ([facility]) [address] [place] [address] [phone] 5 08/23/2024 14:47:46 08/23/2024 15:42:54 Acute thoracic back pain 689888702 M54.6 30 min spent with pt Chronic neck pain 019732 1184 107 M54.2 G89.29 getting nerve stim with DR. Madison Grider tomorrow 08/24/24 Gastrointe stinal hemorrhage 48473844 K25.4 seeing GI next week for scopy and ERCP Dr. Chava puckett. [id number] BOO GACRIA PA-C [facility] ([facility]) [address] [place] [address] 11/02/2024 14:26:10 11/02/2024 16:01:55 Health Concerns Section Related Observation LastModified by Organization Detai ls LastModified Time None Recorded Concern Status LastModified by Organization Details LastModified Time None Recorded Advance Directives Directive None Recorded Payers Insurance Date Sequence Insurance Name Policy Number Policy Rivera Covered Member ID Rivera Member ID Guarantor Name 10/15/2024 [place] - [place] - PART A - [facility] (MEDICARE) Darinda S Ranew [id number] Darinda Ranew 10/30/2024 2 [employer] (MEDICARE SUPPLEMENT) Darinda Ranew [id number] Darinda Ranew 10/15/2024 1 [place] Darinda S Ranew [id number] Darinda Rancary Notes Date Note Type Note Provider Name and Address Organization Details Recorded Time 06/14/19 25 text/htm l Musculoskeletal PainReported by PatientHPIFor quality, patient reportssharp,tingling, anddull. For severity, patient reportsinterferes with sleepandinterferes with work/school. For location, patient reportsbilateral neck. For duration, patient reportspresent <1 month. For timing, patient reportsconstantandpain at night. For alleviating factors, patient reportschanging position. For aggravating factors, patient reportsmovement/positioning ,bending over, andtwisting. having her pacreatic stent this friSeeing vascular surgeon next weekFeeling much better on the dose reduction of Requip. less twitchy and feeling like skin is crawling. BOO GARCIA PA-C [address] [place] [address], [phone], [facility] 06/16/2024 10:53:56 07/07/19 25 text/htm l DyspneaReported by PatientHPIFor quality, patient reportspressure,can't catch breath,breathlessness, andinability to take a deep breath. For context, patient reportsanxiety. For aggravating factors, patient reportsactivity. For associated symptoms, patient reportsfatigue,weakness, anddecrease in exercise capacity. For severity, patient reportsmoderate. For onset/timing, patient reportswith exertion. For alleviating factors, patient reportsrestandsitting up.has been diuresising more the last 2 daysoccasional sharp mid chest pain.Noticing more dyspnea on exertion and decrease in exercise toleratnce. I have a new vascular surgeon with [facility] she stopped the eliquis. I am taking baclofen tid instead of bid boo said that was okVenous reflux CBD stent put in. clamped some varices and pantoprazole. Goes back in August. no cancer. sludge cleaned out of CBD BOO GARCIA PA-C [address] [place], [address], [facility] 07/10/2024 12:12:56 07/25/19 25 text/htm l CoughReported by PatientHPIFor severity, patient reportsworseningbut reportssevere. For associated symptoms, patient reportschest pain,wheezing, andshortness of breathbut reportsno fever. For onset/timing, patient reportssudden.ROS as noted in the HPI Patient presents with c/o cough and sob/wheezing that started yesterday. Has been using her inhalers and neb treatments at home. Feels like she can't get a full breath. Her chest hurts when coughing. Cough is mostly dry but sometimes productive of yellow sputum. denies fever. MALIK BRUSH [address] [place], [address], [facility] 07/24/2024 16:08:07 08/24/19 25 text/htm l CoughReported by PatientHPIFor severity, patient reportsworseningandpain with coughbut reportsmoderate. For associated symptoms, patient reportsagitation,wheezing,s hortness of breath,throat clearing,tiredness, anddepression. For quality, patient reportsproductive. For duration, patient reportssubacute (3-8 weeks). For onset/timing, patient reportssudden. For context, patient reportshistory of bronchitis. Musculoskeletal PainReported by PatientHPIFor quality, patient reportssharp,tingling, anddull. For severity, patient reportsworsening. For associated symptoms, patient reportsweak limbs. For location, patient reportsbilateral neck. For duration, patient reportspresent <1 month. For timing, patient reportsconstant,pain at night, andgradual. For aggravating factors, patient reportsmovement/positioning ,bending over, andtwisting. For adls affected, patient reportswalking,sweeping,mop ping,bathing,dressing, andclimbing stairs. HOSPITAL FOLLOW UP [facility], HAS AN APPT FOR COLONOSCOPY ON 09-01-24 [place], WORE BRACE FROM DR HENRY AND FELT SOMETHIING POP IN NECK NOW NECK HURTS.JUST FINISHED ANTIBIOTICS FROM THEM DOXY? seeing vascular 08/30seeing GI to check on clip in [place] 09/01 and be scoped again. lavern GARCIA PA-C [address] [place], [address], [facility] 08/23/2024 15:38:13 11/03/19 25 text/htm l [place] f/u for jerking and passing outshe started the jerking after starting venlafaxine. she had been in [facility] for 13 days just prior to her ER visit Dr. Michele did a capusule endoscopy and Dr. Michele saw a espophagous Not Available Not Available Not Available OBGyn Episode No OBEpisode recorded.
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
--- OUTSIDE RECORDS SUMMARY | 2024-11-04 04:07 | XMS_ITS | Patient Health Record ---
Author Organization [facility] Address [address] [place] [address] Care Team Providers Care Oil Separator Name Role Phone Desiree Gaming MD Primary Care Provider Unavailab Srinivasan Wilcox Unavailable [phone] Reason For Referral No Information Medications Medication [...] 50 MG Tablet Oral 03/23/2017 Active Creon 52918 UNIT Capsule Delayed Release Particles Oral 04/07/2017 Active Creon 69580 UNIT Capsule Delayed Release Particles Oral 02/18/2017 [...] End Date Medicare [place] MC01 [address] [place] [address] [id number] BARRY VAN Self - patient is the insured Medical (General) History Surgical History Surgery Date(Month/Year) Foot Surgery ,Status : Resolved Appendectomy ,Status : Resolved Cataract Surgery ,Status : Resolved Cholecystectomy ,Status : Resolved Eye Surgery ,Status : Resolved Gastric Surgery ,Status : Resolved Breast Surgery ,Status : Resolved Hysterectomy ,Status : Resolved
--- OUTSIDE RECORDS SUMMARY | 2024-11-04 04:07 | XMS_ITS | Data Portability ---
Author Organization [facility] Physician Gurjit mancuso [facility] Internal Medicine Address [address] [place] [address] Assessment Encounter Date Assessment Date Assessment LastModified [...] Lab valproic acid, total, serum 2017 018 [place] Not available 8 13:00:18 levetirac etam, serum 2017 018 [place] Not available 8 05:45:48 Referral None recorded. Procedures None recorded. Surgeries None recorded. Imaging XR, wrist 2017 018 [facility] (Imaging Orders Only), [address], [place], [address], 8 15:08:13 XR, wrist 2017 018 [facility] (Imaging Orders Only), [address] [place], [address], 8 08:46:00 Medication Orders Keppra 1,000 mg tablet 2017 018 [email or web address] [facility]70318, [address] [place] [address], [id number], 8 11:06:21 Depakote 500 mg tablet,de layed release 2017 018 INTERFACE [facility] #39682, [address] [place] [address] [place], [id number], 8 11:29:55 Patient TargetsNo targets recorded. Patient InstructionsNo instructions recorded. Reason for Referral None Reported. Results Created Date Observation Date Name Description Value Unit Range Abnormal Flag Note LastModifiedBy Organization Detail LastModifiedTime 09/18/19 18 09/17/2017 valpr oic acid, total , serum valproic acid(depaken e) 94.9 ug/mL 50.0-1 00.0 Not Available [facility] (Lab Orders Only) [address] [place], [address], 09/17/2017 13:00:18 09/18/19 18 09/17/2017 levet irace [...] [facility] [place]. It has not been clear ed or appro anil by the U.S. Food and Drug Admin istra tion. This assay has been valid ated pursu ant to the CLIA regul ation s and is used for clini roselia purpo ses. TEST PERFO RMED AT: [facility] [address], [place] PETE LAM MD,P HD Not Available [facility] (Lab Orders Only) [address] [place], [address], 09/23/2017 05:45:48 09/16/19 18 09/01/2017 CT, head, w/o contr ast No observ ation record ed. [email or web address] Not Available 2017 09:41:26 09/18/19 18 09/17/2017 [...] KEYES MD Date: 2017 3:06 PM [email or web address] [facility] (Imaging Orders Only) [address] [place], [address], 09/28/2017 13:07:40 09/18/19 18 09/17/2017 XR, wrist [...] ALEXIS KEYES MD Date: 2017 3:[address] (Imaging Orders Only) [address] [facility] [place], [address], 09/28/2017 13:07:40 Result Notes Documentation Provider Name [...] 09/17/2017 3:06 PM DALLAS COLINDRES MD [address] [facility] [place] [place], [address], [facility] Physician Practices 09/28/2017 13:07:40 Xr, Wrist [...] Date: 09/17/2017 3:06 PM DALLAS COLINDRES MD [address] [place] [address], [address], [facility] Physician Practices 09/28/2017 13:07:40 Problems Name Problem SNOMED Code Status Onset Date Resolution Date Notes Provider Name and Address Organization Details Recorded Time Seizure 47273839 Active 2017 Vanessa Mendoza null, [facility] Physician Practices 8 10:44:08 Hypothyroidism 18048576 Active 2017 Vanessa Mendoza null, [facility] Physician Practices 8 10:44:30 Pancreatitis 92901197 Active 2017 Vanessa Mendoza null, [facility] Physician Practices 8 10:44:41 Problem Notes None recorded. Procedures Surgical History Date Name Laterality Status Provider Name and Address Organization Details Recorded Time Appendectomy completed Vanessa Mendoza [facility] Physician Practices 09/03/2017 10:45:36 Caesarean Section completed Vanessa Glove r [facility] Physician Practices 09/03/2017 10:45:40 Hysterectomy completed Vanessa Mendoza [facility] Physician Practices 09/03/2017 10:45:45 Breast Biopsy completed Vanessa Mendoza [facility] Physician Practices 09/03/2017 10:45:50 Ankle Surgery completed Vanessa Mendoza [facility] Physician Practices 09/03/2017 10:46:00 Gallbladder Surgery completed Vanessa Mendoza [facility] Physician Practices 09/03/2017 10:46:04 Imaging Results None recorded. Procedure Notes None recorded. Medical Equipment None Reported. Allergies Allergen ID Allergen Name Allergen Category Reaction Reaction Severity Criticality Documentation Date Start Date Code Code System Note Provider Name and Address Organization Details Recorded Time 44177 Benadryl medicatio n Not available Not available Not available 09/03/2017 36210 7 RxNorm Vanessa Mendoza null, [facility] Physician Practices 8 10:42:10 85068 Elavil medicatio n Not available Not available Not available 09/03/2017 94462 RxNorm Vanessa Mendoza null, [facility] Physician Practices 8 10:42:19 Medications Name Sig [...] Updated DateTime 8 170.18 cm 23.4 kg/m2 90258.4 2 g 68 /min 97 % 97 % 18 /min 131/78 mm[Hg] Vanessa Mendoza [place] - [facility] Physician Practices 8 10:41:51 Social History None recorded. Functional Status None recorded. Mental Status None recorded. Family History Relationship Description Onset Age of this Age Resolved Age Notes LastModified by Organization Details LastModified Time Mother Heart disease [email or web address] Not available 2017 10:45:05 Medical History Condition Response Hypotension Y Seizures/Epilepsy Y Gynecological HistoryNo gynecological history recorded. Obstetrics History GPAL:G 0 P 0 0 0 0 Past Encounters Encounter ID Performer Location Encounter Start Date Encounter Closed Date Diagnosis/Indication Diagnosis SNOMED-CT Code Diagnosis ICD10 Code Diagnosis Note [id number] DALLAS Youngblood MD [facility] [address] [place] [address] 09/03/2017 10:11:57 09/03/2017 11:07:42 CT of head abnormal 044977628 R93.0 [facility] - Radiology Report Patient Name: BARRY PERRY Date: 1955 Sex: F Exam Date : 09-01-2017 Accession Number: [id number] Procedure Code/Descr iption: 2208 / CT HEAD [...] pa rtial seizure with impairment of consciousness 9541654 R55 Pain of wrist region 566 43254 M25.532 M25.531 Long-term drug therapy 592752759 Z79.899 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 She states that she went to [facility] on 09/01/2017 and she was prescribed depakote. She states is also taking keppa 1000 mg twice a day. She states that she has dilantin in the past and she had to stop taking this medication d/t her liver enzymes being elevated. She states that she was been seeing Dr. Vikram Gunderson in [place], [place] until her recent move to [place]. the patient reports she was first started [...] seen a neurosurgeon at [facility] in [place] and he has opted not to do surgery at this time DALLAS COLINDRES MD [address] [place] [address], [address], [facility] Physician Practices 09/03/2017 11:10:06 OBGyn Episode No OBEpisode recorded.
--- OUTSIDE RECORDS SUMMARY | 2024-11-04 04:07 | XMS_ITS | Data Portability ---
Author Organization ANNIE Bao [facility], [facility] Address [address] [place] [address] Assessment Encounter Date Assessment Date Assessment LastModified [...] have provided her with a prescription for Rowlett 5 #20 with no refills. This will be the final pain medicine prescription given. If she does not improve, I would give consideration to further imaging with MRI. She will contact me if any problems or questions arise. The patient understands and is in agreement with the plan. All questions were addressed and answered. [email or web address] Not available 01/21/2022 12:06:18 Plan of Treatment Reminders Order Date Submit Date Provider Last Modified By Organization Details Last Modified Time Details Appointments None recorded. Lab drug screen, urine 2021 022 CHRISTIANO [facility], [address] [facility] [address], [place], [address], 22:35:46 Referral radiologist referral - MRI Lumbar Spine Without Contrast 2021 022 [email or web address] Not available 07:30:15 radiologist referral - MRI left Shoulder Without Contrast 2021 022 [email or web address] Not available 07:30:15 rheumatolog ist referral - Patient recently moved from [place] where she was being treated for RA. Needing to continue treatment. 2021 [email or web address] Not available 10:34:10 physical therapist referral 2021 [email or web address] Not available 12:14:46 Procedures None recorded. Surgeries None recorded. Imaging XR, lumbosacral spine, 2 or 3 view - RM 4 bring back to room 2021 [email or web address] [facility] [place], [address] [place], [address], 16:58:41 XR, shoulder, 2 or more view - c1 2021 [email or web address] [facility] [place], [address] [place], [address], 13:51:58 Medication Orders oxycodone 5 mg tablet 2021 022 [email or web address] Not available 10:00:06 hydrocodone 5 mg-acetamin ophen 325 mg tablet 2021 022 [email or web address] 4 Not available 09:49:06 Patient TargetsNo targets recorded. Patient Instructions Encounter Date Encounter Id Patient Instructions Last Modified By Organization Details Last Modified Time 01/20/2022 [id number] weight managemen t education [email or web address] Not available 01/20/2022 09:49:06 fall risk assessment* [email or web address] Not available 06/10/2022 16:22:54 Reason for Referral Physical Therapist Referral for Bilateral shoulder joint pain Referring Physician: Juan Yee, Orthopedic Surgery, Encounter Date: 01/20/2022 Radiologist Referral for Lum bar radiculopathy MRI Lumbar Spine Without Contrast Referring Physician: Jai Delaney, Pain Management, Encounter Date: 02/12/2022 Field Worker Referral for Rheumatoid arthritis Patient recently moved from [place] where she was being treated for RA. [...] on 7-ami noclo nazep am 174 EXPEC OTILIO ng/mg creat 7-ami noclo nazep am is an expec otilio metab olite of clona zepam . Sourc e of clona zepam is a sched uled presc ripti on medic ation . Modesto codon e 499 EXPEC OTILIO ng/mg creat [place] morph one 45 EXPEC OTILIO ng/mg creat Dihyd rocod eine 69 EXPEC OTILIO ng/mg creat Norhy droco done 1283 EXPEC OTILIO ng/mg creat Sourc es of hydro codon e inclu de sched uled presc ripti on medic ation s. Modesto morph one, dihyd rocod eine and norhy droco done are expec otilio metab olite s of hydro codon e. Modesto morph one and dihyd rocod eine are [...] medic ation s: Clona zepam Codei ne [place] codon e Oxyco done Not e: The [...] roselia consu ltati on, pleas e call [phone]. ===== ===== ===== ===== ===== ===== ===== ===== ===== ===== ===== ===== ===== === Not Available [facility] ([facility]) [address] [facility], [place], [address], 02/17/2022 22:35:46 02/13/20 22 02/17/2022 TOXAS SURE SELEC T 13 () pdf . Not Available [facility] ([facility]) [address], [place], [address], 02/17/2022 22:35:46 Result Notes None recorded. Procedures Surgical History Date Name Laterality Status Provider Name and Address Organization Details Recorded Time 01/21/20 22 INJ Left Subacromial Kenalog completed [facility] 01/21/2022 12:03:44 01/21/20 INJ Right Subacromial Kenalog completed [facility] 01/21/2022 12:03:23 Imaging Results None recorded. Procedure Notes None recorded. Medical Equipment None Reported. Allergies Allergen ID Allergen Name Allergen Category Reaction Reaction Severity Criticality Documentation Date Start Date Code Code System Note Provider Name and Address Organization Details Recorded Time 70433 Imitrex medicatio n Not available Not available Not available 01/20/2022 41237 3 RxNorm Juana Wisdom janay [facility] 2 09:19:22 67820 Benadryl medicatio n Not available Not available Not available 01/20/2022 90944 7 RxNorm Juana Molinamally gustafson [facility] 2 09:19:30 Medications Name Sig Start [...] Updated DateTime 01/20/2022 165.1 cm 23.1 kg/m2 28754.34 g Juana Wisdom [facility] 01/20/2022 09:19:12 Date Recorded Body height Body mass index (BMI) Body weight Provider Name and Address Organization Details Last Updated DateTime 02/12/2022 165.1 cm 23.1 kg/m2 28196.34 g Suzan Rigo [facility] 02/12/2022 08:57:38 Social History Question Answer Notes LastModified by [employer] Details LastModified Time Tobacco Smoking Status Former Smoker Juana gustafson [facility] 01/20/2022 09:22:50 What Was The Date Of Your Most Recent Tobacco Screening? 02/12/2022 [email or web address] Information not available 02/12/2022 Has Tobacco Cessation Counseling Been Provided? Yes [email or web address] Information not available 02/12/2022 On What Date Was Tobacco Cessation Counseling Provided? 02/12/2022 [email or web address] Information not available 02/12/2022 Sex: Unknown Functional Status Question Answer Note LastModified by [employer] Details LastModified Time Do you use any illicit or recreational drugs? No [email or web address] Information not available 02/12/2022 Do you or have you ever used any other forms of tobacco or nicotine? Yes [email or web address] Information not available 02/12/2022 Do you or have you ever used smokeless tobacco? Never used smokeless tobacco Information not available 02/12/2022 Do you or have you ever used e-cigarettes or vape? Never used electronic cigarettes [email or web address] Information not available 02/12/2022 Mental Status None [...] SNOMED-CT Code Diagnosis ICD10 Code Diagnosis Note [id number] MD Enrico [address] [place] [address] 01/20/2022 08:59:19 01/20/2022 13:51:58 Bilateral shoulder joint pain 0995176000 6220263 M25.511 M25.512 [id number] MD Enrico [address] [place] [address] 02/12/2022 08:46:46 02/12/2022 16:58:40 Low back pain 366390248 M54.59 x rays Lumbar radiculopathy 128 115761 M54.16 will get mri Chronic pain syndrome 37 0897477 G89.4 oxyocodone bid Long-term drug therapy 247550472 Z79.899 Z51.81 G89.4 Z79.891 uds Rheumatoid arthritis 698 73582 M06.9 refer to specialias t Pain of le ft shoulder joint 7163663222 8562065 M25.512 mri Health Concerns Section Related Observation LastModified by Organization Detai ls LastModified Time None Recorded Concern Status LastModified by Organization Details LastModified Time None Recorded Advance Directives Directive None Recorded Payers Insurance Date Sequence Insurance Name Policy Number Policy Rivera Covered Member ID Rivera Member ID Guarantor Name 09/18/2022 1 [place] Tosha Perry [id number] Tosha Geronimo [place] 09/15/2019 1 [employer] (MEDICARE REPLACEMENT/AD VANTAGE - PPO) Tosha Enamorado [place] [id number] Tosha Geronimo [place] 02/14/2022 2 UNSPECIFIED REMIT PAYOR Tosha Geronimo [place] 09/18/2022 2 [employer] [place] (MEDICARE SUPPLEMENT) Tosha Enamorado [place] [id number] Tosha Geronimo [place] 12/17/2021 1 [employer] (MEDICARE REPLACEMENT/AD VANTAGE - PPO) [id number] Tosha Geronimo [place] [id number] Tosha Ariascary Notes Date Note Type Note [...] flare in 5 years. Juan Yee MD [address] [place] [address], [address], [place] - [facility] 01/21/2022 12:20:15 02/12/2022 text/html Ms. Perry who [...] is appropriate. She has been taking some Rowlett. This is upset her stomach. She has taken oxycodone in the past which has been effective without side effects. She must stop her clonazepam. I hope to not be on opioids long-term. Jai Delaney MD [address] [place], [address], [facility] 02/12/2022 11:58:51 OBGyn Episode No OBEpisode recorded.
--- OUTSIDE RECORDS SUMMARY | 2024-11-04 04:07 | XMS_ITS | Patient Health Record ---
Author Organization El Gonsalves D.O., [facility] Address [address] [place] [address] Care Team Providers Care Obstetrics Gyn Physician Name Role Phone MariuszMadelinene Primary Care Provider El Brewer [phone] Allergies Allergen (clinical drug ingredient) Drug/Non Drug [...] Status Risk Notes Problem Shortness of breath (202502604) Shortness of breath (R06.02) Active confirmed Problem Anxiety (00927043) Anxiety (F41.9) Active confirmed Problem Abnormal PFT: MV V reduced disproportionate to FEV1 (R94.2) Active confirmed Problem Peripheral edema (61428076) Peripheral edema (R60.9) Active confirmed Problem Restless legs syndrome (76465940) Restless leg syndrome (G25.81) Active confirmed Problem Pulmonary hypertension (68400409) Pulmonary hypertension (I27.20) Active confirmed Problem Benign neoplasm of cerebral meninges (96236078) Meningioma (D32.9) Active confirmed Problem Hypokalemia (90603616) 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
--- NOTE | 2024-11-04 05:07 | XRR_ITS ---
PROCEDURE INFORMATION: Exam: XR Chest Exam date and time: 11/04/2024 5:07 AM Age: 69 years old Clinical indication: Chest pressure; Prior surgery; Surgery date: 6+ months; Surgery type: Cervical fusion. Gb; C/O chest pain. Hypertensive. ; Additional info: Cp TECHNIQUE: Imaging protocol: Radiologic exam of the chest. Views: 1 view. COMPARISON: CR XR chest 1V portable [id number] 10/23/2024 2:52 PM FINDINGS: Lungs: Unremarkable. No consolidation. Pleural spaces: Unremarkable. No pleural effusion. No pneumothorax. Heart/Mediastinum: Unremarkable. No cardiomegaly. Bones/joints: Prior cervicothoracic spine fusion. XR/XR chest 1V portable [id number] IMPRESSION: No acute findings.
--- NOTE | 2024-11-04 05:08 | W.ED.CHESTPA ---
Documented by User: Ty Fall Yemi, 11/04/24 15:24 HPI - Chest Pain General: Chief Complaint: Chest Pain Stated Complaint: CP Time Seen by Provider: 11/04/24 04:44 History of Present Illness: 69-year-old female well-known to the emergency department. She arrives by ambulance complaining of chest discomfort. She complains to me that she has had a cough with some phlegm production as well. No definite fever. She is resting comfortably on my exam and interview. She does have a history of COPD. She does not have known history of coronary disease. Related Data Home Medications ?Medication ?Instructions ?Recorded ?Confirmed fluticasone propionate 50 1 spray intranasal BID PRN 09/27/23 11/04/24 mcg/actuation nasal allergies spray,suspension gabapentin 300 mg capsule 300 mg PO TID 09/27/23 11/04/24 oxycodone 10 mg tablet 10 mg PO Q8H PRN Pain 12/29/23 11/04/24 furosemide 80 mg tablet 80 mg PO DAILY 10/24/24 11/04/24 venlafaxine 75 mg capsule,extended 75 mg PO DAILY 10/24/24 11/04/24 release 24 hr clopidogrel 75 mg tablet 75 mg PO DAILY 11/04/24 11/04/24 promethazine 12.5 mg tablet 12.5 mg PO Q8H PRN Nausea 11/04/24 11/04/24 Previous Rx's ?Medication ?Instructions ?Recorded levothyroxine 112 mcg tablet 112 mcg PO QAM low thyroid #90 tabs 10/15/22 Bone growth stimulator #1 ea 01/22/23 Bone growth stimulator #1 ea 02/05/23 tens unit for cervical #1 ea 12/16/23 albuterol sulfate 90 mcg/actuation 1 puff inhalation Q6H PRN 12/20/23 aerosol inhaler Shortness Of Breath #6.7 grams insulin syringes (disposable) 1 mL #25 ea 05/30/24 methotrexate sodium 25 mg/mL 20 mg (0.8 mL) SUBCUT .Q7days #10 05/30/24 injection solution mL baclofen 10 mg tablet 5 mg (1/2 x 10 mg) PO Q6H PRN 10/25/24 Muscle Spasm #30 tabs potassium chloride 20 mEq 40 meq (2 x 20 mEq) PO DAILY #30 10/25/24 tablet,extended release tabs ropinirole 5 mg tablet 5 mg PO BID #270 tabs 10/25/24 Allergies Allergy/AdvReac Type Severity Reaction Status Date / Time ibuprofen Allergy Unknown ADR-Anxiety Verified 09/23/24 04:24 tizanidine Allergy Unknown Unknown Verified 09/23/24 04:24 acetaminophen Allergy ADR-Anxiety Verified 09/23/24 04:24 amitriptyline Allergy ADR-Agitate Verified 09/23/24 04:24 d diphenhydramine (From Allergy ADR-Agitate Verified 09/23/24 04:24 Benadryl) d morphine Allergy ADR-Halluci Verified 09/23/24 04:24 nating prochlorperazine (From Allergy Unknown Verified 09/23/24 04:24 Compazine) leflunomide AdvReac Intermediate GI adverse Verified 09/23/24 04:24 reactions sulfasalazine AdvReac Intermediate ADR-Nausea Verified 09/23/24 04:24 and acid reflux [facility] ED PFSH: Medical History DVT (deep venous thrombosis) Acute GI bleeding History of deep vein thrombosis GERD (gastroesophageal reflux disease) Pre-operative clearance Pneumonia Acute anemia Hematoma complicating a procedure Cervical adenopathy GI bleed Osteoarthritis, shoulder Cervical spondylosis with myelopathy GERD with esophagitis Allergic rhinitis due to allergen RLS (restless legs syndrome) Substance or medication-induced sleep disorder, insomnia type Anxiety and depression High risk medication use Seropositive rheumatoid arthritis of multiple sites Extrapyramidal and movement disorder CKD (chronic kidney disease) stage 3, GFR 30-59 ml/min Lung nodule, solitary Prediabetes Hyperlipidemia Iron deficiency anemia Hypothyroidism Surgical History S/P insertion of IVC (inferior vena caval) filter Status post cervical spinal fusion History of cholecystectomy History of appendectomy History of delivery History of hysterectomy with bilateral oophorectomy History of ankle surgery left Previous back surgery Social History Smoking and tobacco/nicotine status: former use of tobacco/nicotine Quit status (tobacco/nicotine): has quit using Year quit tobacco: 2009 Former quit date comment: Smoked for 9 months Alcohol intake: current Alcohol intake frequency: holidays/special occasions only Substance/Drug Use: never Physical Exam Const: GENERAL APPEARANCE: cooperative HENMT: COMMON NORMALS: normocephalic, atraumatic and Normal external nose present HEAD & SCALP: normocephalic and atraumatic FACE & SINUS: normal facial exam and face symmetric NOSE: Normal external nose present Eye: COMMON NORMALS: Equal, round and reactive pupils present and EOMs intact bilaterally PUPIL: Yes Equal, round and reactive pupils present Neck/C-Spine: GENERAL: Yes trachea midline Chest: CHEST: Yes Symmetrical chest wall rise Resp: COMMON NORMALS: normal respiratory effort, No retractions, No use of accessory muscles and clear to auscultation bilaterally AUSCULTATION: clear to auscultation bilaterally Cardio: COMMON NORMALS: regular rate and regular rhythm RATE: regular rate RHYTHM: regular rhythm GI: COMMON NORMALS: Normal to inspection, nondistended, normoactive bowel sounds present Extremity: COMMON NORMALS: no pedal edema Neuro: DORA COMA SCALE: document GCS findings Dora coma scale eye opening: Spontaneous [place] coma scale verbal response: Orientated [place]ora coma scale motor response: Obey commands [place] coma scale total score: 15 SENSORY EXAM: Yes extremities (intact) Psych: COMMON NORMALS: speech normal SPEECH: Yes normal speech Skin: COMMON NORMALS: no rashes or lesions noted GENERAL SKIN EXAM: no rashes or lesions noted Course Vital Signs: Vital signs: Vital Signs Temperature 97.4 F L 11/04/24 12:00 Pulse Rate 45 L 11/04/24 12:00 Respiratory Rate 22 H 11/04/24 12:00 Blood Pressure 110/49 11/04/24 12:00 Pulse Oximetry 99 11/04/24 12:00 Oxygen Delivery Me thod Room Air 11/04/24 12:00 MDM - Chest Pain Medical Decision Making 69-year-old female complaining of chest discomfort and cough. Her chest x-ray is negative. Her hemoglobin is 7.7. She has chronic anemia. EKG shows no acute ST wave changes. Awaiting further labs. Lab Data 11/04/24 05:56 11/04/24 05:56 Radiology Impressions Chest X-Ray 11/04/24 05:07 IMPRESSION: No acute findings. Abdomen/Pelvis CT 11/04/24 07:58 IMPRESSION: 1. No acute abnormality identified . 2. Hiatal hernia. Thickened gastric wall which is nonspecific. 3. Status post cholecystectomy. 4. Status post hysterectomy. 5. Status post appendectomy COMMENTS: For patients with an IVC filter, recommend assessment for a management plan for the patient's IVC filter. If there is no established management plan, recommend referral to an interventional clinician on a nonemergent basis for evaluation. Head CT 11/04/24 10:26 IMPRESSION: No acute intracranial abnormality. Stable findings. Laboratory Results WBC 5.19 10^3/uL (3.29-11.43) 11/04/24 05:56 RBC 2.93 10^6/uL (3.85-5.65) L 11/04/24 05:56 Hgb 7.70 g/dL (11.27-16.99) L 11/04/24 05:56 Hct 25.5 % (36-47) L 11/04/24 05:56 MCV 87.0 fl (85-98) 11/04/24 05:56 MCH 26.3 pg (27-33) L 11/04/24 05:56 MCHC 30.2 g/dL (30-55) 11/04/24 05:56 RDW 21.0 % (12.1-15.1) H 11/04/24 05:56 Plt Count 345 10^3/cmm (157-399) 11/04/24 05:56 MPV 10.1 fL (7.4-10.4) 11/04/24 05:56 Neut % (Auto) 37.8 % 11/04/24 05:56 Lymph % (Auto) 35.6 % 11/04/24 05:56 Leon % (Auto) 20.8 % 11/04/24 05:56 Eos % (Auto) 5.0 % 11/04/24 05:56 Baso % (Auto) 0.4 % 11/04/24 05:56 Reticulocyte % (Auto) 3.6 % (0.5-2.0) H 11/04/24 05:56 Neut # (Auto) 1.96 10^3/uL (1.8-7.7) 11/04/24 05:56 Lymph # (Auto) 1.9 10^3/uL (0.8-4.8) 11/04/24 05:56 Leon # (Auto) 1.1 10^3/uL (0.2-0.9) H 11/04/24 05:56 Eos # (Auto) 0.3 10^3/uL (0.0-0.8) 11/04/24 05:56 Baso # (Auto) 0.0 10^3/uL (0.0-0.1) 11/04/24 05:56 Nucleated RBC % (auto) 0 % 11/04/24 05:56 Nucleated RBCs # 0.0 /100WBC 11/04/24 05:56 PT 14.70 SECONDS (12.1-14.9) 11/04/24 05:56 INR 1.07 (0.8-1.2) 11/04/24 05:56 APTT 38.9 SECONDS (23.9-36.7) H 11/04/24 05:56 Sodium 141 mmol/L (136-145) 11/04/24 05:56 Potassium 3.2 mmol/L (3.5-5.1) L 11/04/24 05:56 Chloride 101 mmol/L (98-107) 11/04/24 05:56 Carbon Dioxide 24 mmol/L (22-29) 11/04/24 05:56 Anion Gap 19.2 (5-19) H 11/04/24 05:56 BUN 27 mg/dL (8-23) H 11/04/24 05:56 Creatinine 1.6 mg/dL (0.5-0.9) H 11/04/24 05:56 GFR Calculation 31.9 mL/min (90-130) L 11/04/24 05:56 Glucose 94 mg/dL (65-115) 11/04/24 05:56 Estimat Average Glucose 120 11/04/24 05:56 Hemoglobin A1c 5.8 % (4.0-6.0) 11/04/24 05:56 Calculated Osmolality 297 mOsm/kg (285-295) H 11/04/24 05:56 Calcium 8.6 mg/dL (8.5-10.5) 11/04/24 05:56 Iron 32 ug/dL (37-145) L 11/04/24 05:56 TIBC 204 mcg/dl 11/04/24 05:56 % Saturation 15.6 % (20-50) L 11/04/24 05:56 Unsat Iron Binding 172 ug/dL (112-347) 11/04/24 05:56 Ferritin 854 ng/mL (15-150) H 11/04/24 05:56 Total Bilirubin 0.2 mg/dL (0.15-1.2) 11/04/24 05:56 AST 29 U/L (0-32) 11/04/24 05:56 ALT 12 U/L (0-33) 11/04/24 05:56 Alkaline Phosphatase 108 U/L (35-105) H 11/04/24 05:56 Troponin T Baseline 21 ng/L (0-10) H 11/04/24 05:56 Troponin T 120 Minute 19.46 ng/L (0-10) H 11/04/24 07:20 Delta Troponin T -1.54 ABS# (0-10) L 11/04/24 07:20 C-Reactive Protein 38.7 mg/L (0.0-4.9) H 11/04/24 05:56 NT-Pro-B Natriuret Pep 5072 pg/mL (0-125) H 11/04/24 05:56 Total Protein 6.4 g/dL (6.6-8.7) L 11/04/24 05:56 Albumin 3.6 g/dL (3.5-5.2) 11/04/24 05:56 Globulin 2.8 g/dL (1.3-4.6) 11/04/24 05:56 Triglycerides 116 mg/dL (0-150) 11/04/24 05:56 Cholesterol 150 mg/dL (0-200) 11/04/24 05:56 LDL Cholesterol, Calc 87 mg/dL (50-129) 11/04/24 05:56 HDL Cholesterol 40 mg/dL (60-100) L 11/04/24 05:56 LDL/HDL Ratio 2.18 RATIO (0.00-3.22) 11/04/24 05:56 Cholesterol/HDL Ratio 3.75 mg/dL (0.0-4.40) 11/04/24 05:56 Procalcitonin 0.16 ng/mL (0-0.5) 11/04/24 05:56 TSH 1.32 uIU/mL (0.27-4.20) 11/04/24 05:56 Urine Color Yellow (Yellow) 11/04/24 06:57 Urine Appearance Clear (CLEAR) 11/04/24 06:57 Urine pH 5.5 (5-7) 11/04/24 06:57 Ur Specific [place] 1.012 (1.005-1.030) 11/04/24 06:57 Urine Protein Neg (Negative) 11/04/24 06:57 Urine Glucose (UA) Norm (Normal) 11/04/24 06:57 Urine Ketones Negative (Negative) 11/04/24 06:57 Urine Blood Neg (Negative) 11/04/24 06:57 Urine Nitrate Negative (Negative) 11/04/24 06:57 Urine Bilirubin Neg (Negative) 11/04/24 06:57 Urine Urobilinogen 0.2 mg/dL (Negative) 11/04/24 06:57 Ur Leukocyte Esterase Trace (Negative) 11/04/24 06:57 Urine RBC 0-2 /hpf (0-2) 11/04/24 06:57 Urine WBC 21-50 /hpf (0-5) H 11/04/24 06:57 Ur Squamous Epith Cells 0-5 /hpf (0-5) 11/04/24 06:57 Amorphous Sediment Not Reportable 11/04/24 06:57 Urine Bacteria 4+ /hpf (NONE) H 11/04/24 06:57 Hyaline Casts 0.4 /lpf 11/04/24 06:57 Urine Opiates Screen Negative ng/mL (Negative) 11/04/24 06:57 Ur Barbiturates Screen Negative ng/mL (Negative) 11/04/24 06:57 Ur Phencyclidine Scrn Negative ng/mL (Negative) 11/04/24 06:57 Ur Amphetamines Screen Negative ng/mL (Negative) 11/04/24 06:57 U Benzodiazepines Scrn Positive ng/mL (Negative) H 11/04/24 06:57 Urine Cocaine Screen Negative ng/mL (Negative) 11/04/24 06:57 U Marijuana (THC) Screen Positive ng/mL (Negative) H 11/04/24 06:57 Blood Type O Positive 11/04/24 08:05 Rho(D) Type Rh positive 11/04/24 08:05 Antibody Screen Negative 11/04/24 08:05 Crossmatch See Detail 11/04/24 08:05 Discharge Plan Discharge Patient Disposition: Placed in Observation Admit Provider: Bernard Ray Clinical Impression: Chest pain, Anemia, Congestive heart failure, ZAHRA (acute kidney injury), Cystitis Sign Out Sign Out Data: Patient Sign Out occurred on 11/04/24 at 06:39. Patient's care was discussed, and care was transferred from Ty Bragg DO to Sammy Plaza DO. Coding Level of Care Code ED Paralegal for Chg Fwd Documented by User: Sammy Plaza DO 11/04/24 09:01 HPI - Chest Pain General: Chief Complaint: Chest Pain Stated Complaint: CP Time Seen by Provider: 11/04/24 04:44 Related Data Home Medications ?Medication ?Instructions ?Recorded ?Confirmed fluticasone propionate 50 1 spray intranasal BID PRN 09/27/23 11/04/24 mcg/actuation nasal allergies spray,suspension gabapentin 300 mg capsule 300 mg PO TID 09/27/23 11/04/24 oxycodone 10 mg tablet 10 mg PO Q8H PRN Pain 12/29/23 11/04/24 furosemide 80 mg tablet 80 mg PO DAILY 10/24/24 11/04/24 venlafaxine 75 mg capsule,extended 75 mg PO DAILY 10/24/24 11/04/24 release 24 hr clopidogrel 75 mg tablet 75 mg PO DAILY 11/04/24 11/04/24 promethazine 12.5 mg tablet 12.5 mg PO Q8H PRN Nausea 11/04/24 11/04/24 Previous Rx's ?Medication ?Instructions ?Recorded levothyroxine 112 mcg tablet 112 mcg PO QAM low thyroid #90 tabs 10/15/22 Bone growth stimulator #1 ea 01/22/23 Bone growth stimulator #1 ea 02/05/23 tens unit for cervical #1 ea 12/16/23 albuterol sulfate 90 mcg/actuation 1 puff inhalation Q6H PRN 12/20/23 aerosol inhaler Shortness Of Breath #6.7 grams insulin syringes (disposable) 1 mL #25 ea 05/30/24 methotrexate sodium 25 mg/mL 20 mg (0.8 mL) SUBCUT .Q7days #10 05/30/24 injection solution mL baclofen 10 mg tablet 5 mg (1/2 x 10 mg) PO Q6H PRN 10/25/24 Muscle Spasm #30 tabs potassium chloride 20 mEq 40 meq (2 x 20 mEq) PO DAILY #30 10/25/24 tablet,extended release tabs ropinirole 5 mg tablet 5 mg PO BID #270 tabs 10/25/24 Allergies Allergy/AdvReac Type Severity Reaction Status Date / Time ibuprofen Allergy Unknown ADR-Anxiety Verified 09/23/24 04:24 tizanidine Allergy Unknown Unknown Verified 09/23/24 04:24 acetaminophen Allergy ADR-Anxiety Verified 09/23/24 04:24 amitriptyline Allergy ADR-Agitate Verified 09/23/24 04:24 d diphenhydramine (From Allergy ADR-Agitate Verified 09/23/24 04:24 Benadryl) d morphine Allergy ADR-Halluci Verified 09/23/24 04:24 nating prochlorperazine (From Allergy Unknown Verified 09/23/24 04:24 Compazine) leflunomide AdvReac Intermediate GI adverse Verified 09/23/24 04:24 reactions sulfasalazine AdvReac Intermediate ADR-Nausea Verified 09/23/24 04:24 and acid reflux [facility] ED PFSH: Medical History DVT (deep venous thrombosis) Acute GI bleeding History of deep vein thrombosis GERD (gastroesophageal reflux disease) Pre-operative clearance Pneumonia Acute anemia Hematoma complicating a procedure Cervical adenopathy GI bleed Osteoarthritis, shoulder Cervical spondylosis with myelopathy GERD with esophagitis Allergic rhinitis due to allergen RLS (restless legs syndrome) Substance or medication-induced sleep disorder, insomnia type Anxiety and depression High risk medication use Seropositive rheumatoid arthritis of multiple sites Extrapyramidal and movement disorder CKD (chronic kidney disease) stage 3, GFR 30-59 ml/min Lung nodule, solitary Prediabetes Hyperlipidemia Iron deficiency anemia Hypothyroidism Surgical History S/P insertion of IVC (inferior vena caval) filter Status post cervical spinal fusion History of cholecystectomy History of appendectomy History of delivery History of hysterectomy with bilateral oophorectomy History of ankle surgery left Previous back surgery Social History Smoking and tobacco/nicotine status: former use of tobacco/nicotine Quit status (tobacco/nicotine): has quit using Year quit tobacco: 2009 Former quit date comment: Smoked for 9 months Alcohol intake: current Alcohol intake frequency: holidays/special occasions only Substance/Drug Use: never Physical Exam Neuro: DORA COMA SCALE: document GCS findings [place] coma scale total score: 15 Course Vital Signs: Vital signs: Vital Signs Temperature 97.4 F L 11/04/24 12:00 Pulse Rate 45 L 11/04/24 12:00 Respiratory Rate 22 H 11/04/24 12:00 Blood Pressure 110/49 11/04/24 12:00 Pulse Oximetry 99 11/04/24 12:00 Oxygen Delivery Me thod Room Air 11/04/24 12:00 MDM - Chest Pain Medical Decision Making 69-year-old female complaining of chest discomfort and cough. Her chest x-ray is negative. Her hemoglobin is 7.7. She has chronic anemia. EKG shows no acute ST wave changes. Awaiting further labs. Care assumed at change of shift patient further responsive now has been a little bit hypotensive given normal saline bolus of 500 blood pressure improved to 103 systolic. She also been bradycardic. Reevaluated patient. Exam is benign but sure if she is still not responsive bradycardic and mildly hypotensive. Her MAP is still above 65. Her troponins have trended negative. She is anemic which is been trending down throughout this month she is previously been on Eliquis for DVT is not currently on it but still is on Plavix. Secondary finding of a cystitis for which she was given Rocephin. Chest x-ray no acute findings. CT of the abdomen pelvis is still pending results for read. Prior to getting Zyprexa she was awake and interactive believe her sedation is and nonresponsiveness are due to the Zyprexa. Medical Records I reviewed the patient's medical records. Lab Data I reviewed the patient's lab results. 11/04/24 05:56 11/04/24 05:56 Radiology Impressions Chest X-Ray 11/04/24 05:07 IMPRESSION: No acute findings. Abdomen/Pelvis CT 11/04/24 07:58 IMPRESSION: 1. No acute abnormality identified . 2. Hiatal hernia. Thickened gastric wall which is nonspecific. 3. Status post cholecystectomy. 4. Status post hysterectomy. 5. Status post appendectomy COMMENTS: For patients with an IVC filter, recommend assessment for a management plan for the patient's IVC filter. If there is no established management plan, recommend referral to an interventional clinician on a nonemergent basis for evaluation. Head CT 11/04/24 10:26 IMPRESSION: No acute intracranial abnormality. Stable findings. Laboratory Results WBC 5.19 10^3/uL (3.29-11.43) 11/04/24 05:56 RBC 2.93 10^6/uL (3.85-5.65) L 11/04/24 05:56 Hgb 7.70 g/dL (11.27-16.99) L 11/04/24 05:56 Hct 25.5 % (36-47) L 11/04/24 05:56 MCV 87.0 fl (85-98) 11/04/24 05:56 MCH 26.3 pg (27-33) L 11/04/24 05:56 MCHC 30.2 g/dL (30-55) 11/04/24 05:56 RDW 21.0 % (12.1-15.1) H 11/04/24 05:56 Plt Count 345 10^3/cmm (157-399) 11/04/24 05:56 MPV 10.1 fL (7.4-10.4) 11/04/24 05:56 Neut % (Auto) 37.8 % 11/04/24 05:56 Lymph % (Auto) 35.6 % 11/04/24 05:56 Leon % (Auto) 20.8 % 11/04/24 05:56 Eos % (Auto) 5.0 % 11/04/24 05:56 Baso % (Auto) 0.4 % 11/04/24 05:56 Reticulocyte % (Auto) 3.6 % (0.5-2.0) H 11/04/24 05:56 Neut # (Auto) 1.96 10^3/uL (1.8-7.7) 11/04/24 05:56 Lymph # (Auto) 1.9 10^3/uL (0.8-4.8) 11/04/24 05:56 Leon # (Auto) 1.1 10^3/uL (0.2-0.9) H 11/04/24 05:56 Eos # (Auto) 0.3 10^3/uL (0.0-0.8) 11/04/24 05:56 Baso # (Auto) 0.0 10^3/uL (0.0-0.1) 11/04/24 05:56 Nucleated RBC % (auto) 0 % 11/04/24 05:56 Nucleated RBCs # 0.0 /100WBC 11/04/24 05:56 PT 14.70 SECONDS (12.1-14.9) 11/04/24 05:56 INR 1.07 (0.8-1.2) 11/04/24 05:56 APTT 38.9 SECONDS (23.9-36.7) H 11/04/24 05:56 Sodium 141 mmol/L (136-145) 11/04/24 05:56 Potassium 3.2 mmol/L (3.5-5.1) L 11/04/24 05:56 Chloride 101 mmol/L (98-107) 11/04/24 05:56 Carbon Dioxide 24 mmol/L (22-29) 11/04/24 05:56 Anion Gap 19.2 (5-19) H 11/04/24 05:56 BUN 27 mg/dL (8-23) H 11/04/24 05:56 Creatinine 1.6 mg/dL (0.5-0.9) H 11/04/24 05:56 GFR Calculation 31.9 mL/min (90-130) L 11/04/24 05:56 Glucose 94 mg/dL (65-115) 11/04/24 05:56 Estimat Average Glucose 120 11/04/24 05:56 Hemoglobin A1c 5.8 % (4.0-6.0) 11/04/24 05:56 Calculated Osmolality 297 mOsm/kg (285-295) H 11/04/24 05:56 Calcium 8.6 mg/dL (8.5-10.5) 11/04/24 05:56 Iron 32 ug/dL (37-145) L 11/04/24 05:56 TIBC 204 mcg/dl 11/04/24 05:56 % Saturation 15.6 % (20-50) L 11/04/24 05:56 Unsat Iron Binding 172 ug/dL (112-347) 11/04/24 05:56 Ferritin 854 ng/mL (15-150) H 11/04/24 05:56 Total Bilirubin 0.2 mg/dL (0.15-1.2) 11/04/24 05:56 AST 29 U/L (0-32) 11/04/24 05:56 ALT 12 U/L (0-33) 11/04/24 05:56 Alkaline Phosphatase 108 U/L (35-105) H 11/04/24 05:56 Troponin T Baseline 21 ng/L (0-10) H 11/04/24 05:56 Troponin T 120 Minute 19.46 ng/L (0-10) H 11/04/24 07:20 Delta Troponin T -1.54 ABS# (0-10) L 11/04/24 07:20 C-Reactive Protein 38.7 mg/L (0.0-4.9) H 11/04/24 05:56 NT-Pro-B Natriuret Pep 5072 pg/mL (0-125) H 11/04/24 05:56 Total Protein 6.4 g/dL (6.6-8.7) L 11/04/24 05:56 Albumin 3.6 g/dL (3.5-5.2) 11/04/24 05:56 Globulin 2.8 g/dL (1.3-4.6) 11/04/24 05:56 Triglycerides 116 mg/dL (0-150) 11/04/24 05:56 Cholesterol 150 mg/dL (0-200) 11/04/24 05:56 LDL Cholesterol, Calc 87 mg/dL (50-129) 11/04/24 05:56 HDL Cholesterol 40 mg/dL (60-100) L 11/04/24 05:56 LDL/HDL Ratio 2.18 RATIO (0.00-3.22) 11/04/24 05:56 Cholesterol/HDL Ratio 3.75 mg/dL (0.0-4.40) 11/04/24 05:56 Procalcitonin 0.16 ng/mL (0-0.5) 11/04/24 05:56 TSH 1.32 uIU/mL (0.27-4.20) 11/04/24 05:56 Urine Color Yellow (Yellow) 11/04/24 06:57 Urine Appearance Clear (CLEAR) 11/04/24 06:57 Urine pH 5.5 (5-7) 11/04/24 06:57 Ur Specific [place] 1.012 (1.005-1.030) 11/04/24 06:57 Urine Protein Neg (Negative) 11/04/24 06:57 Urine Glucose (UA) Norm (Normal) 11/04/24 06:57 Urine Ketones Negative (Negative) 11/04/24 06:57 Urine Blood Neg (Negative) 11/04/24 06:57 Urine Nitrate Negative (Negative) 11/04/24 06:57 Urine Bilirubin Neg (Negative) 11/04/24 06:57 Urine Urobilinogen 0.2 mg/dL (Negative) 11/04/24 06:57 Ur Leukocyte Esterase Trace (Negative) 11/04/24 06:57 Urine RBC 0-2 /hpf (0-2) 11/04/24 06:57 Urine WBC 21-50 /hpf (0-5) H 11/04/24 06:57 Ur Squamous Epith Cells 0-5 /hpf (0-5) 11/04/24 06:57 Amorphous Sediment Not Reportable 11/04/24 06:57 Urine Bacteria 4+ /hpf (NONE) H 11/04/24 06:57 Hyaline Casts 0.4 /lpf 11/04/24 06:57 Urine Opiates Screen Negative ng/mL (Negative) 11/04/24 06:57 Ur Barbiturates Screen Negative ng/mL (Negative) 11/04/24 06:57 Ur Phencyclidine Scrn Negative ng/mL (Negative) 11/04/24 06:57 Ur Amphetamines Screen Negative ng/mL (Negative) 11/04/24 06:57 U Benzodiazepines Scrn Positive ng/mL (Negative) H 11/04/24 06:57 Urine Cocaine Screen Negative ng/mL (Negative) 11/04/24 06:57 U Marijuana (THC) Screen Positive ng/mL (Negative) H 11/04/24 06:57 Blood Type O Positive 11/04/24 08:05 Rho(D) Type Rh positive 07/26/25 08:05 Antibody Screen Negative 11/04/24 08:05 Crossmatch See Detail 11/04/24 08:05 All radiology interpretation(s) finalized by discharge Discharge Plan Discharge Patient Disposition: Placed in Observation Admit Provider: Bernard Ray Clinical Impression: Chest pain, Anemia, Congestive heart failure, ZAHRA (acute kidney injury), Cystitis Sign Out Sign Out Data: Patient Sign Out occurred on 11/04/24 at 06:39. Patient's care was discussed, and care was transferred from Ty Bragg DO to Sammy Plaza DO. Coding Level of Care Code ED Paralegal for Maribel Sweet
[2024-11-04 06:02] LABS: Hematocrit 25.5 % (36-47); Hemoglobin 7.70 g/dL (11.27-16.99); Mean Corpuscular HGB Conc 30.2 g/dL (30-55); Mean Corpuscular Hemoglobin 26.3 pg (27-33); Mean Corpuscular Volume 87.0 fl (85-98); Nucleated Red Blood Cells % 0 %; Platelet Count 345 10^3/cmm (157-399); Red Blood Count 2.93 10^6/uL (3.85-5.65); White Blood Count 5.19 10^3/uL (3.29-11.43)
[2024-11-04 06:14] LABS: INR 1.07 (0.8-1.2); Prothrombin Time 14.70 SECONDS (12.1-14.9)
[2024-11-04 06:15] LABS: Partial Thromboplastin Time 38.9 SECONDS (23.9-36.7)
--- NOTE | 2024-11-04 06:19 | ECG_ITS ---
[facility] Pat Name: Tosha Perry Department: Room: Gender: Female [employer]: : 1955 Requested By: Ty Fall Order Number: [id number] Mirela MD: Chava Mckinley M.D. Measurements Intervals [place] Rate: 53 P: 60 NH: 178 QRS: 35 QRSD: 93 T: 51 QT: 474 QTc: 448 Interpretive Statements SINUS BRADYCARDIA LOW QRS VOLTAGE IN PRECORDIAL LEADS [QRS DEFLECTION < 1.0 mV IN CHEST LEADS] Compared to ECG 11/04/2024 03:58:02 Sinus rhythm no longer present Ventricular premature complex(es) no longer present Electronically Signed On 11-04-2024 08:42:27 CDT by Chava Mckinley M.D. [email or web address]
[2024-11-04 06:27] LABS: Troponin(5th) Baseline 21 ng/L (0-10)
[2024-11-04 06:34] LABS: Alanine Aminotransferase 12 U/L (0-33); Albumin Level 3.6 g/dL (3.5-5.2); Alkaline Phosphatase 108 U/L (35-105); Anion Gap 19.2 (5-19); Aspartate Amino Transferase 29 U/L (0-32); Blood Urea Nitrogen 27 mg/dL (8-23); Calcium 8.6 mg/dL (8.5-10.5); Carbon Dioxide 24 mmol/L (22-29); Chloride 101 mmol/L (98-107); Globulin 2.8 g/dL (1.3-4.6); Glucose 94 mg/dL (65-115); NT Pro B Type Natriuretic Pept 5072 pg/mL (0-125); Osmolality Calculated 297 mOsm/kg (285-295); Potassium 3.2 mmol/L (3.5-5.1); Sodium 141 mmol/L (136-145); Total Protein 6.4 g/dL (6.6-8.7)
[2024-11-04 06:35] LABS: Creatinine Clr Calc Pharmacy 30.6898
[2024-11-04 07:26] LABS: PCP Screen Urine Negative (Negative)
[2024-11-04 07:39] LABS: Glucose Urine UA Norm (Normal); Specific Gravity, Urine 1.012 (1.005-1.030)
[2024-11-04 07:40] LABS: Add Urine Microscopic? YES; Nitrate Urine Negative (Negative)
[2024-11-04 07:52] LABS: Troponin 5 2HR 19.46 ng/L (0-10)
--- NOTE | 2024-11-04 07:55 | PC.NURSE ---
pt b/p 86/42; 500mL NS bolus infused, Dr. Plaza notified
[2024-11-04 07:56] LABS: Troponin 5 2HR Delta -1.54 ABS# (0-10)
--- NOTE | 2024-11-04 07:58 | CTR_ITS ---
PROCEDURE INFORMATION: Exam: CT Abdomen And Pelvis Without Contrast Exam date and time: 11/04/2024 8:12 AM Age: 69 years old Clinical indication: Abdominal pain; Generalized TECHNIQUE: Imaging protocol: Computed tomography of the abdomen and pelvis without contrast. Radiation optimization: All CT scans at this facility use at least one of these dose optimization techniques: automated exposure control; mA and/or kV adjustment per patient size (includes targeted exams where dose is matched to clinical indication); or iterative reconstruction. COMPARISON: CT abdomen pelvis wo con [id number] 12/29/2023 2:00 PM RADIATION DOSE METRICS: Total DLP (mGy-cm): 430.06 FINDINGS: Lungs: There is mild interstitial prominence in the lung bases. Improved since the prior examination. Diaphragm: There is a hiatal hernia. Liver: Unremarkable. No mass. Gallbladder and biliary ducts: Status post cholecystectomy. Pancreas: There is atrophy of the pancreas. Spleen: Normal. No splenomegaly. Adrenal glands: Normal. No mass. Kidneys and ureters: Normal. No hydronephrosis. Stomach and bowel: The gastric wall is thickened. This is nonspecific as the stomach is not distended. No obstruction. No mucosal thickening. Appendix: No evidence of appendicitis. History of appendectomy. Intraperitoneal space: Unremarkable. No free air. No significant fluid collection. Vasculature: IVC filter is present with the tip at the level of the renal vessels. There is atherosclerosis of the aorta and branch vessels. There is a stent present in the left common femoral artery. Lymph nodes: Unremarkable. No enlarged lymph nodes. Urinary bladder: Unremarkable as visualized. Reproductive: The uterus is surgically absent. Bones/joints: Kyphoplasty changes are present in L4 and L5. Degenerative changes are present in the lumbar spine. There is a grade 1 retrolisthesis of L2 on L3. Significant disc space narrowing with marginal osteophytes is present. This is without significant change since prior examination. Soft tissues: Unremarkable. CT/CT abdomen pelvis wo con [id number] IMPRESSION: 1. No acute abnormality identified . 2. Hiatal hernia. Thickened gastric wall which is nonspecific. 3. Status post cholecystectomy. 4. Status post hysterectomy. 5. Status post appendectomy COMMENTS: For patients with an IVC filter, recommend assessment for a management plan for the patient's IVC filter. If there is no established management plan, recommend referral to an interventional clinician on a nonemergent basis for evaluation.
--- NOTE | 2024-11-04 09:06 | PC.NURSE ---
antibiotics delayed d/t pending blood cultures to be obtained
--- NOTE | 2024-11-04 10:00 | PC.NURSE ---
per Blood [facility], pt has a couple units of blood already available d/t hx of antibodies.
--- NOTE | 2024-11-04 10:05 | PC.NURSE ---
attempted report x2 times, Disbursing Officer took report; attempted to call CSU to take patient to floor x2 times, was told to bring patient, during transport CSU Account Specialist called and states to not bring patient, nurse was not ready. UC states pt's nurse was giving medication in another room.
--- NOTE | 2024-11-04 10:26 | CTR_ITS ---
PROCEDURE INFORMATION: Exam: CT Head Without Contrast Exam date and time: 11/04/2024 2:08 PM Age: 69 years old Clinical indication: Altered mental status/memory loss; Additional info: AMS TECHNIQUE: Imaging protocol: Computed tomography of the head without contrast. Radiation optimization: All CT scans at this facility use at least one of these dose optimization techniques: automated exposure control; mA and/or kV adjustment per patient size (includes targeted exams where dose is matched to clinical indication); or iterative reconstruction. COMPARISON: CT head wo con* [id number] 10/23/2024 4:25 PM RADIATION DOSE METRICS: Total DLP (mGy-cm): 1050.98 FINDINGS: Brain: Normal. No hemorrhage. Unremarkable white matter. No mass effect. Cerebral ventricles: No ventriculomegaly. Paranasal sinuses: Visualized sinuses are unremarkable. No fluid levels. Mastoid air cells: Visualized mastoid air cells are well aerated. Bones: Unremarkable. No acute fracture. Soft tissues: Unremarkable. CT/CT head wo con* [id number] IMPRESSION: No acute intracranial abnormality. Stable findings.
--- NOTE | 2024-11-04 10:57 | ECG_ITS ---
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 Measurements Intervals [place] Rate: 46 P: 62 CO: 185 QRS: 29 QRSD: 101 T: 51 QT: 543 QTc: 476 Interpretive Statements SINUS BRADYCARDIA LOW QRS VOLTAGE IN PRECORDIAL LEADS [QRS DEFLECTION < 1.0 mV IN CHEST LEADS] Compared to ECG 11/04/2024 06:03:50 QTC INTERVAL HAS MILDLY INCREASED Electronically Signed On 11-04-2024 14:26:39 CDT by Veronica [email or web address]
[2024-11-04 11:05] LABS: Estmated Average Glucose 120; Hemoglobin A1C 5.8 % (4.0-6.0)
[2024-11-04 11:07] LABS: Procalcitonin 0.16 ng/mL (0-0.5); Thyroid Stimulating Hormone 1.32 uIU/mL (0.27-4.20)
[2024-11-04 11:19] LABS: Cholesterol 150 mg/dL (0-200); Ferritin 854 ng/mL (15-150); HDL Cholesterol 40 mg/dL (60-100); Iron 32 ug/dL (37-145); Total Iron Binding Capacity 204 mcg/dl; Triglycerides 116 mg/dL (0-150); Unsaturated Iron Binding 172 ug/dL (112-347)
--- NOTE | 2024-11-04 11:49 | PM.HP ---
Providers/Chief Complaint Admitting Physician: Bernard Ray MD Primary Care Provider: Diana Garcia Chief Complaint: CP History of Present Illness Tosha Perry is a 69 year old female with a past medical history of anemia, history of GI bleed, history of DVT, history of IVC filter, history of restless leg syndrome,, history of hypothyroidism, is on multiple medications such as oxycodone/gabapentin/Requip, who presents [facility] for chest pain. Currently patient is alert to person, she knows that she is in the hospital does not oriented to time, per my conversation with her she easily falls back asleep, she is on room air, telemetry monitoring shows sinus bradycardia she is normotensive, no family members at bedside. Patient reports chest discomfort, but is not able to elaborate as during my conversation she falls back asleep, she denies any shortness of breath, no abdominal pain, no headache, unfortunately cannot get much history from her as she can be truly falls asleep during our conversation Review of Systems Const: Denies: fever(s) or chills Card: Reports: chest pain Resp: Reports: dyspnea Medications/Allergies Home Medications ?Medication ?Instructions ?Recorded ?Confirmed ?Last Taken ?Type levothyroxine 112 mcg tablet 112 mcg PO QAM low thyroid #90 tabs 10/15/22 11/04/24 11/03/24 Rx Bone growth stimulator #1 ea 01/22/23 11/04/24 Unknown Rx Bone growth stimulator #1 ea 02/05/23 11/04/24 Unknown Rx fluticasone propionate 50 1 spray intranasal BID PRN 09/27/23 11/04/24 12/29/23 History mcg/actuation nasal allergies spray,suspension gabapentin 300 mg capsule 300 mg PO TID 09/27/23 11/04/24 11/03/24 History tens unit for cervical #1 ea 12/16/23 11/04/24 Unknown Rx albuterol sulfate 90 mcg/actuation 1 puff inhalation Q6H PRN 12/20/23 11/04/24 Unknown Rx aerosol inhaler Shortness Of Breath #6.7 grams oxycodone 10 mg tablet 10 mg PO Q8H PRN Pain 12/29/23 11/04/24 11/03/24 History insulin syringes (disposable) 1 mL #25 ea 05/30/24 11/04/24 Unknown Rx methotrexate sodium 25 mg/mL 20 mg (0.8 mL) SUBCUT .Q7days #10 05/30/24 11/04/24 10/30/24 Rx injection solution mL furosemide 80 mg tablet 80 mg PO DAILY 10/24/24 11/04/24 11/03/24 History venlafaxine 75 mg capsule,extended 75 mg PO DAILY 10/24/24 11/04/24 11/03/24 History release 24 hr baclofen 10 mg tablet 5 mg (1/2 x 10 mg) PO Q6H PRN 10/25/24 11/04/24 10/21/24 Rx Muscle Spasm #30 tabs potassium chloride 20 mEq 40 meq (2 x 20 mEq) PO DAILY #30 10/25/24 11/04/24 11/03/24 Rx tablet,extended release tabs ropinirole 5 mg tablet 5 mg PO BID #270 tabs 10/25/24 11/04/24 11/03/24 Rx clopidogrel 75 mg tablet 75 mg PO DAILY 11/04/24 11/04/24 11/03/24 History promethazine 12.5 mg tablet 12.5 mg PO Q8H PRN Nausea 11/04/24 11/04/24 Unknown History Allergies Allergy/AdvReac Type Severity Reaction Status Date / Time ibuprofen Allergy Unknown ADR-Anxiety Verified 09/23/24 04:24 tizanidine Allergy Unknown Unknown Verified 09/23/24 04:24 acetaminophen Allergy ADR-Anxiety Verified 09/23/24 04:24 amitriptyline Allergy ADR-Agitate Verified 09/23/24 04:24 d diphenhydramine (From Allergy ADR-Agitate Verified 09/23/24 04:24 Benadryl) d morphine Allergy ADR-Halluci Verified 09/23/24 04:24 nating prochlorperazine (From Allergy Unknown Verified 09/23/24 04:24 Compazine) leflunomide AdvReac Intermediate GI adverse Verified 09/23/24 04:24 reactions sulfasalazine AdvReac Intermediate ADR-Nausea Verified 09/23/24 04:24 and acid reflux PFSH Acute PFSH: Medical History DVT (deep venous thrombosis) Acute GI bleeding History of deep vein thrombosis GERD (gastroesophageal reflux disease) Pre-operative clearance Pneumonia Acute anemia Hematoma complicating a procedure Cervical adenopathy GI bleed Osteoarthritis, shoulder Cervical spondylosis with myelopathy GERD with esophagitis Allergic rhinitis due to allergen RLS (restless legs syndrome) Substance or medication-induced sleep disorder, insomnia type Anxiety and depression High risk medication use Seropositive rheumatoid arthritis of multiple sites Extrapyramidal and movement disorder CKD (chronic kidney disease) stage 3, GFR 30-59 ml/min Lung nodule, solitary Prediabetes Hyperlipidemia Iron deficiency anemia Hypothyroidism Surgical History S/P insertion of IVC (inferior vena caval) filter Status post cervical spinal fusion History of cholecystectomy History of appendectomy History of delivery History of hysterectomy with bilateral oophorectomy History of ankle surgery left Previous back surgery Social History Smoking and tobacco/nicotine status: former use of tobacco/nicotine Quit status (tobacco/nicotine): has quit using Year quit tobacco: 2009 Former quit date comment: Smoked for 9 months Alcohol intake: current Alcohol intake frequency: holidays/special occasions only Substance/Drug Use: never Vitals/I&O/Wt Last Vital Signs Temp 97.4 F L 11/04/24 10:09 Pulse 60 11/04/24 10:09 Resp 18 11/04/24 10:09 BP 135/56 11/04/24 10:09 Pulse Ox 95 11/04/24 10:22 O2 Del Method Room Air 11/04/24 10:22 11/03/24 11/04/24 11/04/24 22:59 06:59 14:59 Intake Total 500 / 500 Output Total 700 / 700 Balance -200 / -200 Weight last 48 hrs Weight 63.049 kg Physical Exam Const: COMMON NORMALS: no acute distress ORIENTATION/CONSCIOUSNESS: Yes awake, Yes oriented to person, Yes oriented to place and Yes confused; not oriented to time HENMT: COMMON NORMALS: normocephalic HEAD & SCALP: normocephalic Eye: COMMON NORMALS: Equal, round and reactive pupils present Resp: COMMON NORMALS: normal respiratory effort, No retractions, No use of accessory muscles and clear to auscultation bilaterally AUSCULTATION: clear to auscultation bilaterally Cardio: COMMON NORMALS: no JVD, regular rate, regular rhythm, S1 normal heart sound present and S2 normal heart sound present RATE: regular rate RHYTHM: regular rhythm HEART SOUNDS: S1 normal heart sound present and S2 normal heart sound present GI: COMMON NORMALS: Normal to inspection, nondistended, normoactive bowel sounds present, Soft to palpation and non-tender Extremity: COMMON NORMALS: no calf tenderness and no pedal edema Neuro: COMMON NORMALS: moves all extremities and no focal motor deficits OTHER: Moves bilateral upper and lower extremities, spontaneously, withdraws from pain, localizes pain, but easily falls back asleep during conversations Psych: COMMON NORMALS: mental status grossly normal Data 11/04/24 05:56 11/04/24 05:56 Micro: Microbiology 11/04/24 09:31 Blood Culture - Preliminary Blood SPECIMEN COLLECTED 11/04/24 09:20 Blood Culture - Preliminary Blood SPECIMEN COLLECTED A&P Assessment and plan 1. DVT (deep venous thrombosis): 2. Chest pain: 3. GERD (gastroesophageal reflux disease): 4. Cystitis: 5. ZAHRA (acute kidney injury): 6. Anemia: 7. GI bleed: Plan: Acute encephalopathy - Etiology unclear - Component related to UTI - Component related to Zyprexa use - Component related to marijuana positivity in the urine, benzodiazepine positivity - Neurochecks - NIH stroke scale - Seizure precautions - Aspiration precautions - CT head - Ammonia levels Chest pain - Serial EKGs, serial troponins, telemetry monitoring Echocardiogram 10/29/2024 CONCLUSIONS Normal left ventricular size and systolic function, EF 60%mild left ventricular hypertrophy. No regional wall motion abnormalities. Grade III/IV diastolic dysfunction (restrictive filling pattern), severely elevated filling pressures. Mildly increased left atrial size. Thickened mitral valve. Mild mitral annular calcification. Thickened aortic valve. Mild tricuspid valve regurgitation. Estimated pulmonary artery peak systolic pressure 33 mmHg. There is no pericardial effusion. There are no intracardiac masses. No similar previous studies are available for comparison - Will hold off on Plavix given acute anemia - Statin -Nitro as needed - Continue monitoring for chest pain Acute anemia - History of GI bleed - History of IVC filter - History of requiring capsule endoscopy - Iron studies, ferritin, reticulocyte count - Hemoglobin 7.7 repeat this afternoon - Transfuse if hemoglobin less than 7 - Monitor hemoglobin every 6 hours - Protonix, Carafate Acute kidney injury, creatinine 1.6, monitor Urinary tract infection, IV Rocephin Multiple medications including propranolol, oxycodone, gabapentin PDMP PDMP Reviewed: Not Reviewed Attestations Medical Necessity Statement*: Patient requires hospitalization, inpatient, greater than 2 midnights for acute encephalopathy, acute anemia, chest pain Diagnoses DVT (deep venous thrombosis) I82.409 Chest pain R07.9 GERD (gastroesophageal reflux disease) K21.9 Cystitis N30.90 ZAHRA (acute kidney injury) N17.9 Anemia D64.9 GI bleed K92.2
[2024-11-04 12:28] LABS: ABG PCO2 43.2 mmHg (35-45); ABG PH Result 7.41 (7.35-7.45); Arterial Blood Gas Hematocrit 24.5 % (37-47); Blood Gas Allen Test Pos; Blood Gas Operator Identificat WALCI; Blood Gas Sample Site Radial, left; Blood Gas Sample Type Arterial; HCO3 ABG 27.6 mmol/L (22-26); PO2 ABG 75.2 mmHg (80.0-100.0); PO2 FiO2 Ratio Arterial Blood 358
[2024-11-04] MEDS: pantoprazole 40 mg SDV IVP ×2 (14:32→21:35)
[2024-11-04] MEDS: sucralfate 1 gm/10 mL Oral Liq UDC PO ×2 (14:32→21:35)
--- NOTE | 2024-11-04 15:20 | PC.NURSE ---
Dr Ray notified that patient was bradying down to 32. Patient asleep. Dr Ray ordered to get an EKG and monitor.
--- NOTE | 2024-11-04 15:21 | PC.NURSE ---
per Dr Ray, do not transfuse blood. Cancel order. Nurse cannot cancel order.
[2024-11-04] MEDS: albumin 25 G/100 ML VIAL IV (16:48)
[2024-11-04 17:17] LABS: Hematocrit 24.4 % (36-47); Hemoglobin 7.60 g/dL (11.27-16.99)
[2024-11-04 17:30] LABS: INR 1.08 (0.8-1.2); Prothrombin Time 14.70 SECONDS (12.1-14.9)
[2024-11-04 17:31] LABS: Partial Thromboplastin Time 31.0 SECONDS (23.9-36.7)
[2024-11-04 17:41] LABS: Magnesium 1.9 mg/dL (1.7-2.3)
[2024-11-04 17:42] LABS: Ammonia 28 umol/L (11-51); Troponin 5 6HR 19.48 ng/L (0-10)
[2024-11-04 17:49] LABS: Lactic Sepsis W/Reflex 8.9 mmol/L (0.5-2.2)
--- NOTE | 2024-11-04 17:52 | CTR_ITS ---
PROCEDURE INFORMATION: Exam: CT Chest Without Contrast; Diagnostic Exam date and time: 11/04/2024 7:40 PM Age: 69 years old Clinical indication: Shortness of breath and other: Sepsis; Prior surgery; Surgery date: 6+ months; Surgery type: Gb; C/O SOB. Sepsis with highly elevated lactic acid. History of copd. ; Additional info: Septic shock? TECHNIQUE: Imaging protocol: Diagnostic computed tomography of the chest without contrast. Radiation optimization: All CT scans at this facility use at least one of these dose optimization techniques: automated exposure control; mA and/or kV adjustment per patient size (includes targeted exams where dose is matched to clinical indication); or iterative reconstruction. COMPARISON: CT chest wo con [id number] 12/29/2023 6:20 PM RADIATION DOSE METRICS: Total DLP (mGy-cm): 335.59 FINDINGS: Lungs: Lung windows demonstrate bibasilar infiltrate with atelectasis along with mild bronchiectasis. Previously noted nodular patchy infiltrate with prior exam 12/29/2023 appears resolved. Pleural spaces: No pleural effusion or pneumothorax. Heart: No significant cardiomegaly or pericardial effusion. Extensive coronary artery calcification. Lymph nodes: No significant lymph node enlargement or lymphadenopathy. Vasculature: Arteriosclerosis of the thoracic aorta. Diaphragm: Gaen-[id number]-fyvmwcnc hiatal hernia again noted. Suggestion of increased esophageal thickening. Gallbladder and biliary ducts: Images through the upper-most abdomen demonstrate previous cholecystectomy with chronic prominence of the common hepatic/bile duct post cholecystectomy, as noted with prior exam. Bones/joints: Bone windows demonstrate spondylotic change thoracic spine and partially visualized cervicothoracic fusion hardware, as noted with prior exam.. Soft tissues: Unremarkable. CT/CT chest wo con [id number] IMPRESSION: 1. Bibasilar infiltrate with atelectasis along with mild bronchiectasis, predominantly within the posterior lung bases. Findings suggest bibasilar pneumonia. 2. Wmtw-wh-[id number] hiatal hernia and suggestion of esophageal thickening. 3. Arteriosclerosis thoracic aorta and coronary artery calcification.
[2024-11-04] MEDS: DOPamine drip 400 MG/250 ML PREMIX 7.15 MG IV (18:01)
--- NOTE | 2024-11-04 18:02 | ECG_ITS ---
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 Measurements Intervals [place] Rate: 55 P: 81 VA: 192 QRS: 43 QRSD: 74 T: 72 QT: 416 QTc: 400 Interpretive Statements SINUS BRADYCARDIA LOW QRS VOLTAGE IN PRECORDIAL LEADS [QRS DEFLECTION < 1.0 mV IN CHEST LEADS] MODERATE ST DEPRESSION [0.05+ mV ST DEPRESSION] Compared to ECG 11/04/2024 10:57:57 no change Electronically Signed On 11-05-2024 15:51:02 CDT by Veronica [email or web address]
[2024-11-04 18:07] LABS: Troponin 5 6HR Delta -1.52 ng/L (0-12)
[2024-11-04 18:23] LABS: Hematocrit 29.0 % (36-47); Hemoglobin 9.00 g/dL (11.27-16.99)
[2024-11-04 18:48] LABS: Troponin(5th) Baseline 20 ng/L (0-10)
[2024-11-04 18:49] LABS: Blood Urea Nitrogen 20 mg/dL (8-23); Calcium 8.0 mg/dL (8.5-10.5); Carbon Dioxide 25 mmol/L (22-29); Chloride 103 mmol/L (98-107); Creatinine Clr Calc Pharmacy 41.0682; Glucose 118 mg/dL (65-115); Osmolality Calculated 298 mOsm/kg (285-295); Sodium 142 mmol/L (136-145)
[2024-11-04 18:50] LABS: Anion Gap 17.1 (5-19); Potassium 3.1 mmol/L (3.5-5.1)
[2024-11-04 18:51] LABS: Reflex Lactate Order REFLEX LACTIC ORDERD
[2024-11-04 18:51] LABS: Lactate (Lactic Acid level) 0.9 mmol/L (0.5-2.2)
--- NOTE | 2024-11-04 20:01 | ECG_ITS ---
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 Measurements Intervals [place] Rate: 57 P: 67 GA: 172 QRS: 28 QRSD: 92 T: 52 QT: 440 QTc: 430 Interpretive Statements SINUS BRADYCARDIA LOW QRS VOLTAGE IN PRECORDIAL LEADS [QRS DEFLECTION < 1.0 mV IN CHEST LEADS] Compared to ECG 11/04/2024 18:06:09 no change Electronically Signed On 11-05-2024 16:01:04 CDT by Veronica [email or web address]
--- NOTE | 2024-11-04 20:03 | PC.NURSE ---
Patient arrived to ICU at 194. Alert and oriented. Denies chest pain, dizziness or shortness of breath.
[2024-11-04 20:49] LABS: Lactic Acid level (Lactate) 1.0 mmol/L (0.5-2.2)
[2024-11-04 20:50] LABS: Acetaminophen < 5.0 ug/mL (10-30); Salicylate < 0.3 mg/dL (3-10)
[2024-11-04 20:51] LABS: Troponin 5 2HR 18.85 ng/L (0-10)
[2024-11-04 20:52] LABS: Troponin 5 2HR Delta -1.15 ABS# (0-10)
[2024-11-04] MEDS: piperacillin-tazobactam 3.375 GM in sodium chloride 0.9% (plus) 50 ML IV (21:01)
[2024-11-04] MEDS: norepinephrine 4 MG/250 ML BAG 7.5 MG IV (21:35)
--- NOTE | 2024-11-04 22:57 | PM.ACPR ---
Procedure/Consent Time out: Time Out Performed: Yes Consent: Consent for Procedure: Consent obtained from patient Acute Procedures Central Line Placement: Right Femoral: Time out performed: Yes Patient placed on monitor/pulse ox: Yes MD prep: mask, gown and gloves Central line prep: Povidone-Iodine 1%, Chlorhexidine scrub and sterile drapes applied Local anesthesia used: lidocaine 1% Amount of anesthesia used (ml): 5 Ultrasound used for placement: Yes Central line lumen inserted: triple Post procedure: sutured in place, good blood return, all ports aspirated, flushed, capped and sterile dressing applied Post procedure x-ray: other (not indicated) Patient tolerated procedure: well and no complications Complications: none Epistaxis Control: Time out performed: Yes
[2024-11-04] MEDS: oxyCODONE 5 mg IR Tab/Cap PO (23:28)
[2024-11-05] VITALS (94 sets, daily range): BP systolic 95–154; BP diastolic 44–82; PULSE 50–142; RESP 12–33; TEMP 36.5–37.2; O2SAT 90–100
[2024-11-05] MEDS: albumin 25 G/100 ML VIAL IV ×2 (00:50→08:18)
[2024-11-05 01:02] LABS: Hematocrit 28.5 % (36-47); Hemoglobin 8.80 g/dL (11.27-16.99)
[2024-11-05 01:26] LABS: Troponin 5 6HR 16.60 ng/L (0-10)
[2024-11-05 01:27] LABS: Troponin 5 6HR Delta -3.40 ng/L (0-12)
--- NOTE | 2024-11-05 02:00 | PC.NURSE ---
Upon arrival to unit the only IV access was a 20 g in the right chest with the catheter partially out, an ultrasound guided IV was placed in the left ac. Patient's blood pressure remained low with maps in the 50s and lower 60s, heart rate remained stable. Dr. Castañeda notified of blood pressure and ordered a [facility] hemodynamic assessment with fluid bolus, test performed and results sent to Dr. Castañeda. Dr. Castañeda ordered a levophed drip. Dr. Castañeda notified that patient only one peripheral IV but unable to obtain a second one for additional medications ordered. Dr. Brumfield came to the bedside to see patient and decision was made to place a central line. Consent was obtained and a central line was placed in the right groin by Dr. Brumfield with no complications.
[2024-11-05] MEDS: piperacillin-tazobactam 3.375 GM in sodium chloride 0.9% (plus) 50 ML IV ×3 (04:01→20:07)
[2024-11-05] MEDS: sucralfate 1 gm/10 mL Oral Liq UDC PO ×4 (04:02→21:50)
[2024-11-05 05:54] LABS: Hematocrit 26.7 % (36-47); Hemoglobin 8.20 g/dL (11.27-16.99); Mean Corpuscular HGB Conc 30.7 g/dL (30-55); Mean Corpuscular Hemoglobin 26.5 pg (27-33); Mean Corpuscular Volume 86.1 fl (85-98); Nucleated Red Blood Cells % 0 %; Platelet Count 384 10^3/cmm (157-399); Red Blood Count 3.10 10^6/uL (3.85-5.65); White Blood Count 4.03 10^3/uL (3.29-11.43)
[2024-11-05 06:11] LABS: Lactate (Lactic Acid level) 1.2 mmol/L (0.5-2.2)
[2024-11-05 06:12] LABS: Alanine Aminotransferase 10 U/L (0-33); Albumin Level 3.6 g/dL (3.5-5.2); Alkaline Phosphatase 92 U/L (35-105); Aspartate Amino Transferase 24 U/L (0-32); Blood Urea Nitrogen 16 mg/dL (8-23); Calcium 8.1 mg/dL (8.5-10.5); Carbon Dioxide 23 mmol/L (22-29); Chloride 106 mmol/L (98-107); Creatinine Clr Calc Pharmacy 45.2260; Globulin 2.4 g/dL (1.3-4.6); Glucose 129 mg/dL (65-115); Osmolality Calculated 301 mOsm/kg (285-295); Sodium 144 mmol/L (136-145); Total Protein 6.0 g/dL (6.6-8.7)
[2024-11-05 06:13] LABS: Anion Gap 18.2 (5-19); Potassium 3.2 mmol/L (3.5-5.1)
[2024-11-05 06:51] LABS: NT Pro B Type Natriuretic Pept 3547 pg/mL (0-125)
--- NOTE | 2024-11-05 07:42 | PHA.VACGOAL ---
Vancomycin Goal - Goal Vancomycin Goal:: 15-20 mg/L Vancomycin Indication:: Other (SEPSIS) - Therapy Current therapy:: Pip/Tazo Day of therpy:: Day 1 of [] . Actual body weight (kg): 143 lb 4.8 oz - Data Labs: WBC 4.03 10^3/uL (3.29-11.43) 11/05/24 04:35 RBC 3.10 10^6/uL (3.85-5.65) L 11/05/24 04:35 Hgb 8.20 g/dL (11.27-16.99) L 11/05/24 04:35 Hgb Cancelled 11/05/24 04:35 Hct 26.7 % (36-47) L 11/05/24 04:35 Hct Cancelled 11/05/24 04:35 MCV 86.1 fl (85-98) 11/05/24 04:35 MCH 26.5 pg (27-33) L 11/05/24 04:35 MCHC 30.7 g/dL (30-55) 11/05/24 04:35 RDW 21.9 % (12.1-15.1) H 11/05/24 04:35 Sodium 144 mmol/L (136-145) 11/05/24 04:35 Potassium 3.2 mmol/L (3.5-5.1) L 11/05/24 04:35 Chloride 106 mmol/L (98-107) 11/05/24 04:35 Carbon Dioxide 23 mmol/L (22-29) 11/05/24 04:35 Anion Gap 18.2 (5-19) 11/05/24 04:35 BUN 16 mg/dL (8-23) 11/05/24 04:35 Creatinine 1.1 mg/dL (0.5-0.9) H 11/05/24 04:35 GFR Calculation 49.1 mL/min (90-130) L 11/05/24 04:35 Last dialysis session:: N/A Treatment plan:: new consult Regimen:: LOADING DOSE OF 1250 MG X 1 GIVEN. MAINTENANCE DOSE OF 750 MG Q24H. Follow up:: WILL CONTINUE TO MONITOR AND FOLLOW UP DAILY
[2024-11-05 09:09] LABS: Hematocrit 27.3 % (36-47); Hemoglobin 8.60 g/dL (11.27-16.99)
[2024-11-05] MEDS: oxyCODONE 5 mg IR Tab/Cap PO ×2 (10:02→20:07)
--- NOTE | 2024-11-05 10:02 | P.PN_ITS ---
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[facility], UTI - Chest CT shows pneumonia she is on bro ad-spectrum antibiotic therapy - She likely developed sepsis yesterday as her lactic acid was 8.9, which now has come down to 1.2, - Plan is to wean her off dopamine drip, continue IV antibiotics, monitor her closely - Watch cardiac enzymes, repeat cardiac echo - She has no complaints otherwise except she is on venlafaxine, and gabapentin, and then continue to hold them as there is concerns for QT prolongation Vitals/I&O/Wt Last Vital Signs Temp 97.7 F 11/05/24 09:15 Pulse 62 11/05/24 09:31 Resp 21 H 11/05/24 09:15 BP 106/50 11/05/24 09:15 Pulse Ox 94 11/05/24 09:31 O2 Del Method Room Air 11/05/24 09:31 11/04/24 11/05/24 11/05/24 22:59 06:59 14:59 Intake Total 1210 / 1710 1076.042 / 2786.042 456.058 / 456.058 Balance 1210 / 1010 1076.042 / 2086.042 456.058 / 456.058 Weight last 48 hrs Weight 65 kg Weight 63.588 kg Weight 63.049 kg Physical Exam 2 Const: COMMON NORMALS: no acute distress and patient oriented x3 Resp: COMMON NORMALS: normal respiratory effort, No retractions, No use of accessory muscles and clear to auscultation bilaterally AUSCULTATION: clear to auscultation bilaterally Cardio: COMMON NORMALS: regular rate, regular rhythm, S1 normal heart sound present and S2 normal heart sound present RATE: regular rate RHYTHM: r egular rhythm HEART SOUNDS: S1 normal heart sound present and S2 normal heart sound present GI: COMMON NORMALS: Normal to inspection, nondistended, normoactive bowel sounds present and non-tender Extremity: COMMON NORMALS: no pedal edema Neuro: COMMON NORMALS: patient oriented x3 Psych: COMMON NORMALS: mental status grossly normal Skin: COMMON NORMALS: turgor normal GENERAL SKIN EXAM: turgor normal Quick SOFA Score: Respiratory Rate: 18 Blood Pressure: 106/50 [place] Coma Scale: 15 qSOFA Score: 0 If qSOFA score 2 or greater, continue: PaO2/FiO2 Ratio (mmHg): 358 Blood Pressure Mean: 68 Bilirubin (mg/dl): 0.3 Platelets (x10?/ml): 384 C reatinine (mg/dl): 1.1 SOFA Score: 2 Evaluation: Current stage of sepsis: sepsis Sepsis stage criteria used: [facility] Sep-1 and Sepsis-3 Crystalloid fluids: 30 mL/kg crystalloid fluids ordered and initiated within 3 hours Blood cultures ordered: Yes Possible source: pulmonary and genitourinary Focused Exam: Vital signs: Temp Pulse Resp BP Pulse Ox O2 Del Method O2 Del Method 11/05/24 10:02 18 11/05/24 09:31 62 94 Room Air 11/05/24 09:15 97.7 F 76 21 H 106/50 96 Room Air 11/05/24 09:00 67 14 134/62 97 Room Air 11/05/24 08:45 71 15 135/64 97 Room Air 11/05/24 08:30 112 H 17 132/59 98 Room Air 11/05/24 08:15 111 H 21 H 117/52 95 Room Air 11/05/24 08:00 22 H 123/56 94 Room Air 11/05/24 07:45 65 16 126/58 94 Room Air 11/05/24 07:30 16 118/59 95 Room Air 11/05/24 07:15 64 17 126/58 96 Room Air 11/05/24 07:00 26 H 117/55 97 Room Air 11/05/24 05:47 61 11/05/24 05:15 98.9 F 11/05/24 04:30 58 L 122/56 96 11/05/24 04:16 91 97/70 91 11/05/24 04:00 123/59 98 11/05/24 03:45 58 L 128/60 96 11/05/24 03:30 61 116/54 95 11/05/24 03:15 58 L 131/58 95 11/05/24 03:00 70 117/63 94 11/05/24 02:45 63 138/58 93 11/05/24 02:30 59 L 16 113/51 92 11/05/24 02:15 61 14 105/48 91 11/05/24 02:00 59 L 14 106/48 91 11/05/24 01:45 65 14 101/48 90 11/05/24 01:30 58 L 16 98/44 93 11/05/24 01:15 59 L 14 128/60 93 11/05/24 01:00 66 17 134/57 95 11/05/24 00:45 71 23 H 147/62 94 11/05/24 00:30 63 26 H 114/51 95 11/05/24 00:15 63 15 112/49 91 11/05/24 00:00 65 14 126/52 90 11/04/24 23:45 61 13 141/48 93 11/04/24 23:30 157 H 18 118/57 92 11/04/24 23:28 20 H Respiratory exam: CTA bilaterally Cardiovascular exam: regular rate, regular rhythm, S1 normal heart sound and S2 normal heart sound Capillary refill: < 3 Seconds Peripheral pulse strength: 2+ Slightly Diminished P eripheral pulse location: Radial and Pedal Skin exam: turgor normal Date exam was performed: 11/05/24 Time exam was performed: 10:11 2 Sepsis Screen No Definite Risk 11/04/24, 09:15 Respiratory Rate, (12 - 18) 18 breaths/min Today, 10:02 Blood Pressure 106/50 mmHg Today, 09:15 [place] Coma Scale Score 15 Today, 08:00 Quick SOFA Score 0 11/04/24, 09:15 SOFA Score: 2 ABG PO2/FiO2 Ratio 358 11/04/24, 12:17 Dora Coma Scale Score 15 Today, 08:00 Blood Pressure Mean 68 mmHg Today, 09:15 Total Bilirubin, (0.15-1.2) 0.3 mg/dL Today, 04:35 Platelet Count, (157-399) 384 10^3/cmm Today, 04:35 Creatinine, (0.5-0.9) 1.1 mg/dL H Today, 04:35 Data 11/05/24 08:49 11/05/24 04:35 Micro: Microbiology 11/04/24 09:20 Blood Culture - Preliminary Blood NEGATIVE TO DATE 11/04/24 09:31 Blood Culture - Preliminary Blood NEGATIVE TO DATE A&P Assessment and plan 1. DVT (deep venous thrombosis): 2. Chest pain: 3. GERD (gastroesophageal reflux disease): 4. Cystitis: 5. ZAHRA (acute kidney injury): 6. Anemia: 7. GI bleed: 8. Sepsis: 9. Bradycardia: 10. Pneumonia: Plan: Acute encephalopathy - Multifactorial - Component related to UTI - Component related to Zyprexa use -Pneumonia - Component related to marijuana positivity in the urine, benzodiazepine positivity - Neurochecks - NIH stroke scale - Seizure precautions - Aspiration precautions - CT head no acute findings - Ammonia levels, within normal limits Sepsis, pneumonia CT/CT chest wo con [id number] IMPRESSION: 1. Bibasilar infiltrate with atelectasis along with mild bronchiectasis, predominantly within the posterior lung bases. Findings suggest bibasilar pneumonia. 2. Ctvj-cp-lhlzuges hiatal hernia and suggestion of esophageal thickening. 3. Arteriosclerosis thoracic aorta and coronary artery calcification. Plan - Blood cultures - Vancomycin - Zosyn - Currently on dopamine drip wean off - Right groin central line in place, off Levophed Hypotension, with bradycardia - EKG showing sinus bradycardia - Likely secondary to sepsis, pneumonia, UTI, Zyprexa - We currently on dopamine drip - Will wean off - Maintain MAP more than 65 Lactic acidosis - Lactic acidosis, lactic acid 8.9 - Secondary to UTI, pneumonia Chest pain - Serial EKGs, serial troponins, telemetry monitoring Echocardiogram 10/29/2024 CONCLUSIONS Normal left ventricular size and systolic function, EF 60%mild left ventricular hypertrophy. No regional wall motion abnormalities. Grade III/IV diastolic dysfunction (restrictive filling pattern), severely elevated filling pressures. Mildly increased left atrial size. Thickened mitral valve. Mild mitral annular calcification. Thickened aortic valve. Mild tricuspid valve regurgitation. Estimated pulmonary artery peak systolic pressure 33 mmHg. There is no pericardial effusion. There are no intracardiac masses. No similar previous studies are available for comparison - Will hold off on Plavix given acute anemia - Statin -Nitro as needed - Continue monitoring for chest pain - Will consider stress testing based on clinical progress Acute anemia - History of GI bleed - History of IVC filter - History of requiring capsule endoscopy - Iron studies 32, ferritin 854, reticulocyte count 3.6 - Hemoglobin 7., repeat 8.6 - Transfuse if hemoglobin less than 7 - Monitor hemoglobin - Protonix, Carafate - Continue to hold blood thinners, hold Plavix Acute kidney injury, creatinine 11, monitor Urinary tract infection, IV Zosyn Multiple medications including propranolol, oxycodone, gabapentin PDMP PDMP Reviewed: Not Reviewed Attestations 2 Medical Necessity Statement*: Patient requires hospitalization for hypotension, bradycardia, sepsis, pneumonia, UTI, encephalopathy, ZAHRA Diagnoses DVT (deep venous thrombosis) I82.409 Chest pain R07.9 GERD (gastroesophageal reflux disease) K21.9 Cystitis N30.90 ZAHRA (acute kidney injury) N17.9 Anemia D64.9 GI bleed K92.2 Sepsis A41.9 Bradycardia R00.1 Pneumonia J18.9
[2024-11-05] MEDS: pantoprazole 40 mg SDV IVP ×2 (10:36→21:50)
[2024-11-05 13:00] LABS: Hematocrit 25.2 % (36-47); Hemoglobin 7.80 g/dL (11.27-16.99)
[2024-11-05] MEDS: albumin 25 G/100 ML BAG 60 G IV ×2 (16:43→23:51)
[2024-11-05 17:11] LABS: Hematocrit 25.3 % (36-47); Hemoglobin 7.80 g/dL (11.27-16.99)
[2024-11-05] MEDS: HYDROmorphone 0.5 MG/0.5 ML INJ IVP ×2 (17:48→23:51)
--- NOTE | 2024-11-05 17:54 | USCV_ITS ---
Tosha Perry Age: 69 Gender: F : 1955 Exam Date: 11/05/2024 07:46 Ordering Phys: Bernard Ray MD Technologist: Rafat Powell Exam Location: [facility] [place] Indication: sob BP: 126 / 58 HR: Rhythm: Sinus Technical Quality: Adequate MEASUREMENTS (Male / Female) Normal Values 2D ECHO LV Diastolic Diameter PLAX 5.1 cm 4.2 - 5.9 / 3.9 - 5.3 cm IVS Diastolic Thickness 1.0 cm 0.6 - 1.0 / 0.6 - 0.9 cm IVS Systolic Thickness 1.4 cm LVPW Diastolic Thickness 1.1 cm 0.6 - 1.0 / 0.6 - 0.9 cm LVPW Systolic Thickness 1.1 cm LVOT Diameter 2.0 cm LV Ejection Fraction 2D Teich 69.6 % LV Ejection Fraction MOD 4C 77.0 % LV Ejection Fraction MOD 2C 75.6 % LV Ejection Fraction 2C AL 75.9 % LA Diameter 3.0 cm RA Systolic Volume 4C AL 57.0 ml RA Systolic Volume 4C MOD 46.7 ml LA Sys Volume AL 60.1 cm cubed LA Sys Volume Index AL 35.1 cm cubed/m squared Aorta at Sinotubular Diameter 2.4 cm IVC Diameter 2.0 cm M-MODE LA Ao Ratio MM 1.8 AV Cusp Separation MM 1.8 cm FINDINGS Left Ventricle Normal left ventricular size, wall thickness and systolic function. EF 70%. Right Ventricle Normal right ventricular size and systolic function. Right Atrium Left Atrium Mitral Valve Aortic Valve Tricuspid Valve Pulmonic Valve Pericardium Aorta IVC CONCLUSIONS 1. This study was ordered as a limited echo 2. Normal left ventricular and right ventricular size and systolic function, LV EF 70% Clovis Martin MD (Electronically Signed) Final Date: 05 November 2024 15:02 S
[2024-11-05 21:13] LABS: Hematocrit 24.4 % (36-47); Hemoglobin 7.50 g/dL (11.27-16.99)
[2024-11-06] VITALS (33 sets, daily range): BP systolic 112–164; BP diastolic 52–87; PULSE 48–117; RESP 12–20; TEMP 36.6–37.1; O2SAT 92–100
[2024-11-06 01:21] LABS: Hematocrit 24.1 % (36-47); Hemoglobin 7.40 g/dL (11.27-16.99); Mean Corpuscular HGB Conc 30.7 g/dL (30-55); Mean Corpuscular Hemoglobin 26.9 pg (27-33); Mean Corpuscular Volume 87.6 fl (85-98); Nucleated Red Blood Cells % 0 %; Platelet Count 326 10^3/cmm (157-399); Red Blood Count 2.75 10^6/uL (3.85-5.65); White Blood Count 4.40 10^3/uL (3.29-11.43)
[2024-11-06 01:39] LABS: Alanine Aminotransferase 7 U/L (0-33); Albumin Level 3.8 g/dL (3.5-5.2); Alkaline Phosphatase 74 U/L (35-105); Anion Gap 15.4 (5-19); Aspartate Amino Transferase 14 U/L (0-32); Blood Urea Nitrogen 8 mg/dL (8-23); Calcium 8.4 mg/dL (8.5-10.5); Carbon Dioxide 23 mmol/L (22-29); Chloride 108 mmol/L (98-107); Creatinine Clr Calc Pharmacy 55.2762; Globulin 2.4 g/dL (1.3-4.6); Glucose 99 mg/dL (65-115); Osmolality Calculated 296 mOsm/kg (285-295); Sodium 144 mmol/L (136-145); Total Protein 6.2 g/dL (6.6-8.7)
[2024-11-06 01:50] LABS: Potassium 2.4 mmol/L (3.5-5.1)
--- NOTE | 2024-11-06 01:53 | PC.NURSE ---
Notified Dr. Brumfield regarding patient HR dropping down into the high 40's. Received orders to restart dopamine if HR drops below 35 or she develops AMS or hypotension. As notified her of the critical potassium of 2.4 awaiting reply.
[2024-11-06] MEDS: lidocaine 1% 5 ML in potassium chloride premix 100 ML 26.25 ML IV ×2 (02:22→06:12)
[2024-11-06] MEDS: sucralfate 1 gm/10 mL Oral Liq UDC PO ×4 (04:26→21:55)
[2024-11-06] MEDS: piperacillin-tazobactam 3.375 GM in sodium chloride 0.9% (plus) 50 ML IV ×3 (04:26→20:41)
[2024-11-06] MEDS: oxyCODONE 5 mg IR Tab/Cap PO ×3 (04:28→22:01)
[2024-11-06] MEDS: HYDROmorphone 0.5 MG/0.5 ML INJ IVP ×3 (06:11→20:42)
[2024-11-06 07:02] LABS: NT Pro B Type Natriuretic Pept 3430 pg/mL (0-125)
[2024-11-06] MEDS: albumin 25 G/100 ML BAG 60 G IV (08:50)
[2024-11-06] MEDS: ondansetron 2 mg/ML SDV 2 mL 4 MG IVP ×2 (08:50→22:01)
[2024-11-06] MEDS: pantoprazole 40 mg SDV IVP ×2 (10:08→21:55)
--- NOTE | 2024-11-06 11:08 | PC.SOCIAL ---
IMM Update pg 2 of IMM Updated and reviewed w/ patient. Copy provided and copy dated, initialed and placed in chart.
[2024-11-06 12:43] LABS: Anion Gap 14.4 (5-19); Blood Urea Nitrogen 6 mg/dL (8-23); Calcium 8.8 mg/dL (8.5-10.5); Carbon Dioxide 23 mmol/L (22-29); Chloride 109 mmol/L (98-107); Creatinine Clr Calc Pharmacy 64.2381; Glucose 117 mg/dL (65-115); Osmolality Calculated 295 mOsm/kg (285-295); Potassium 3.4 mmol/L (3.5-5.1); Sodium 143 mmol/L (136-145)
--- NOTE | 2024-11-06 13:47 | P.PN_ITS ---
Subjective 2 Subjective: Seen this morning. Hemoglobin 7.4. Potassium 3.4. Patient has been off of dopamine drip and Levophed. BNP 3400. Limited echo shows LVEF 70% Patient states she has always been anemic and she has been told in the past it was due to her rheumatoid arthritis. She says she has received multiple blood transfusions in the past. Her last 1 being 2022. States she was slightly nauseous this morning however feeling better now. She is eating her breakfast. Sitting up in the chair. Urine culture shows Klebsiella pneumonia pansensitive Vitals/I&O/Wt Last Vital Signs Temp 98.1 F 11/06/24 10:00 Pulse 71 11/06/24 12:00 Resp 16 11/06/24 13:23 BP 143/64 11/06/24 12:00 Pulse Ox 97 11/06/24 13:23 O2 Del Method Room Air 11/06/24 12:00 11/05/24 11/06/24 11/06/24 22:59 06:59 14:59 Intake Total 991.833 / 2382.891 650.625 / 3033.516 995 / 995 Output Total 551 / 551 Balance 440.833 / 1831.891 650.625 / 2482.516 995 / 995 Weight last 48 hrs Weight 69.967 kg Weight 65 kg Physical Exam 2 Const: COMMON NORMALS: no acute distress and patient oriented x3 Resp: COMMON NORMALS: normal respiratory effort, No retractions, No use of accessory muscles and clear to auscultation bilaterally AUSCULTATION: clear to auscultation bilaterally Cardio: COMMON NORMALS: regular rate, regular rhythm, S1 normal heart sound present and S2 normal heart sound present RATE: regular rate RHYTHM: r egular rhythm HEART SOUNDS: S1 normal heart sound present and S2 normal heart sound present GI: COMMON NORMALS: Normal to inspection, nondistended, normoactive bowel sounds present and non-tender Extremity: COMMON NORMALS: no pedal edema Neuro: COMMON NORMALS: patient oriented x3 Psych: COMMON NORMALS: mental status grossly normal Skin: COMMON NORMALS: turgor normal GENERAL SKIN EXAM: turgor normal Data 11/06/24 01:13 11/06/24 12:00 Micro: Microbiology 11/04/24 06:57 Urine Culture - Final Urine,Clean Catch Klebsiella pneumoniae 11/04/24 09:20 Blood Culture - Preliminary Blood NEGATIVE TO DATE 11/04/24 09:31 Blood Culture - Preliminary Blood NEGATIVE TO DATE A&P Assessment and plan 1. DVT (deep venous thrombosis): 2. Chest pain: 3. GERD (gastroesophageal reflux disease): 4. Cystitis: 5. ZAHRA (acute kidney injury): 6. Anemia: 7. GI bleed: 8. Sepsis: 9. Bradycardia: 10. Pneumonia: Plan: Acute encephalopathy - Multifactorial - Component related to UTI - Component related to Zyprexa use -Pneumonia - Component related to marijuana positivity in the urine, benzodiazepine positivity - Neurochecks - NIH stroke scale - Seizure precautions - Aspiration precautions - CT head no acute findings - Ammonia levels, within normal limits Sepsis, pneumonia CT/CT chest wo con [id number] IMPRESSION: 1. Bibasilar infiltrate with atelectasis along with mild bronchiectasis, predominantly within the posterior lung bases. Findings suggest bibasilar pneumonia. 2. Wjjp-bg-utcthpuc hiatal hernia and suggestion of esophageal thickening. 3. Arteriosclerosis thoracic aorta and coronary artery calcification. Plan - Blood cultures - Vancomycin - Zosyn - Currently on dopamine drip wean off - Right groin central line in place, off Levophed Hypotension, with bradycardia - EKG showing sinus bradycardia - Likely secondary to sepsis, pneumonia, UTI, Zyprexa - We currently on dopamine drip - Will wean off - Maintain MAP more than 65 Lactic acidosis - Lactic acidosis, lactic acid 8.9 - Secondary to UTI, pneumonia Chest pain - Serial EKGs, serial troponins, telemetry monitoring Echocardiogram 10/29/2024 CONCLUSIONS Normal left ventricular size and systolic function, EF 60%mild left ventricular hypertrophy. No regional wall motion abnormalities. Grade III/IV diastolic dysfunction (restrictive filling pattern), severely elevated filling pressures. Mildly increased left atrial size. Thickened mitral valve. Mild mitral annular calcification. Thickened aortic valve. Mild tricuspid valve regurgitation. Estimated pulmonary artery peak systolic pressure 33 mmHg. There is no pericardial effusion. There are no intracardiac masses. No similar previous studies are available for comparison - Will hold off on Plavix given acute anemia - Statin -Nitro as needed - Continue monitoring for chest pain - Will consider stress testing based on clinical progress Acute anemia - History of GI bleed - History of IVC filter - History of requiring capsule endoscopy - Iron studies 32, ferritin 854, reticulocyte count 3.6 - Hemoglobin 7., repeat 8.6 - Transfuse if hemoglobin less than 7 - Monitor hemoglobin - Protonix, Carafate - Continue to hold blood thinners, hold Plavix Acute kidney injury, creatinine 11, monitor Urinary tract infection, IV Zosyn Multiple medications including propranolol, oxycodone, gabapentin 11/06/2024 Urine culture showing Klebsiella pneumoniae pansensitive. Patient on vancomycin and Zosyn since 11/04. Apparently was given 20 of Zyprexa in ER. She was hypotensive bradycardic thereafter. Component of sepsis pneumonia UTI. Patient did require a dopamine drip. Patient states that in the past she was told she needed a pacemaker however that was never done. Cardiology notes reviewed. Intervention was held off secondary to patient being asymptomatic and having bradycardia. Event monitor was ordered. In 2022 heart rate was noted to be 30-40 rate. She was having ongoing lethargy weakness. No history of coronary artery disease at that time. She was also found to be anemic with hemoglobin 8.5. She did receive a blood transfusion. After blood transfusion heart rate improved. He has also been seen by oncology in October 2022. She has a known history of iron deficiency anemia. Iron deficiency anemia most likely secondary to rheumatoid arthritis. Patient was seen outpatient in and had EGD which showed no evidence of active bleeding. Patient had a repeat endoscopy later on in 2022 which did show a single superficial unspecified ulcer however no sign of bleeding from ulcer. Mild patchy inflammation seen in second part of duodenum. No mucosal bleeding. IVC filter was placed in May 2023. Patient is on baclofen every 6 hours as needed at home, methotrexate, oxycodone, ropinirole. Dopamine has been off. Heart rate is 60s to 70s. Will transfuse for hemoglobin less than 7. Plavix held secondary to anemia. Continue IV antibiotics for UTI/pneumonia. I would complete 10-day course total. Patient was recently discharged from the hospital on 10/25 at which point patient presented with chest pain, possible syncopal episode with bradycardia and a run of V. tach that was not sustained. Medication adjustments were made and she was discharged home. Ramelteon was stopped at previous hospitalization. Ropinirole was decreased to 5 mg at 2 PM and 8 PM. Baclofen was decreased to 5 mg 4 times a day. Requires continued observation on telemetry during hospitalization. May transfer from ICU to [facility]SU today. PDMP PDMP Reviewed: Not Reviewed Attestations 2 Medical Necessity Statement*: Patient requires hospitalization for hypotension, bradycardia, sepsis, pneumonia, UTI, encephalopathy, ZAHRA Diagnoses DVT (deep venous thrombosis) I82.409 Chest pain R07.9 GERD (gastroesophageal reflux disease) K21.9 Cystitis N30.90 ZAHRA (acute kidney injury) N17.9 Anemia D64.9 GI bleed K92.2 Sepsis A41.9 Bradycardia R00.1 Pneumonia J18.9
--- NOTE | 2024-11-06 14:37 | PC.NURSE ---
Report was given to SAMRA Gay in [facility]. Patient was successfully transferred to [facility] without any complications.
--- NOTE | 2024-11-06 14:39 | PC.NURSE ---
Report received from SAMRA Ryder. Patient is alert and oriented to room. VS stable. Patient complains of nausea and requesting nausea medication. Physician notified of transfer.
--- NOTE | 2024-11-06 15:28 | PC.NURSE ---
Patient refuses reglan. States that it makes her restless legs worse.
[2024-11-06] MEDS: albumin 12.5 G/50 ML VIAL IV (16:02)
--- NOTE | 2024-11-06 16:53 | ECG_ITS ---
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 Measurements Intervals Leslie Rate: 62 P: 60 NM: 162 QRS: 5 QRSD: 93 T: 16 QT: 428 QTc: 437 Interpretive Statements SINUS RHYTHM LOW QRS VOLTAGE IN PRECORDIAL LEADS [QRS DEFLECTION < 1.0 mV IN CHEST LEADS] Compared to ECG 11/04/2024 20:19:40 Sinus bradycardia no longer present Electronically Signed On 11-09-2024 10:27:41 CDT by Chava Mckinley M.D. [email or web address]
[2024-11-07] VITALS (9 sets, daily range): BP systolic 138–165; BP diastolic 65–97; PULSE 60–89; RESP 12–24; TEMP 36.7–37.1; O2SAT 93–97
[2024-11-07] MEDS: sucralfate 1 gm/10 mL Oral Liq UDC PO ×2 (02:36→08:27)
[2024-11-07] MEDS: HYDROmorphone 0.5 MG/0.5 ML INJ IVP ×2 (02:36→08:27)
[2024-11-07] MEDS: piperacillin-tazobactam 3.375 GM in sodium chloride 0.9% (plus) 50 ML IV (02:36)
--- NOTE | 2024-11-07 02:44 | PC.NURSE ---
Patient requesting home dose of Xanax. Notified hospitalist of patients request, given one time order for Xanax 0.25mg PO Once.
[2024-11-07 05:38] LABS: Hematocrit 28.7 % (36-47); Hemoglobin 8.90 g/dL (11.27-16.99); Mean Corpuscular HGB Conc 31.0 g/dL (30-55); Mean Corpuscular Hemoglobin 27.5 pg (27-33); Mean Corpuscular Volume 88.6 fl (85-98); Nucleated Red Blood Cells % 0 %; Platelet Count 319 10^3/cmm (157-399); Red Blood Count 3.24 10^6/uL (3.85-5.65); White Blood Count 5.72 10^3/uL (3.29-11.43)
[2024-11-07 06:02] LABS: Alanine Aminotransferase 7 U/L (0-33); Albumin Level 3.8 g/dL (3.5-5.2); Alkaline Phosphatase 81 U/L (35-105); Anion Gap 15.2 (5-19); Aspartate Amino Transferase 18 U/L (0-32); Blood Urea Nitrogen 6 mg/dL (8-23); Calcium 8.7 mg/dL (8.5-10.5); Carbon Dioxide 23 mmol/L (22-29); Chloride 108 mmol/L (98-107); Creatinine Clr Calc Pharmacy 56.9422; Globulin 2.5 g/dL (1.3-4.6); Glucose 104 mg/dL (65-115); Osmolality Calculated 294 mOsm/kg (285-295); Potassium 3.2 mmol/L (3.5-5.1); Sodium 143 mmol/L (136-145); Total Protein 6.3 g/dL (6.6-8.7)
[2024-11-07 06:21] LABS: NT Pro B Type Natriuretic Pept 5200 pg/mL (0-125)
[2024-11-07] MEDS: pantoprazole 40 mg SDV IVP (08:27)
[2024-11-07] MEDS: ondansetron 2 mg/ML SDV 2 mL 4 MG IVP (08:36)
--- NOTE | 2024-11-07 13:47 | PC.NURSE ---
patient refuses noon giuliano, stating she just wants to go home
--- NOTE | 2024-11-07 13:50 | P.CONIM_ITS ---
<Statement entered by Chava Mckinley M.D - 11/07/24 17:23> Patient did not stay for stress testing. Was discharged before I could see patient. Cardiology nurse practitioner did see the patient and mentioned to her risks of not having further cardiac testing done as she had chest pain and significant bradycardia without clear reason. Providers/Reason For Consult 2 Consulting Physician/Specialty*: Dr Mckinley, cardiology Reason for Consult*: chest pain, bradycardia Requesting Physician: Dolores Vargas MD Attending Physician: Dolores Vargas MD Primary Care Provider: Diana Garcia History of Present Illness History of Present Illness Tosha Perry is a 69 year old female with past medical history of DVT, iron deficiency anemia, GI bleed, IVC filter in place, COPD. She presented to the emergency room 11/04/2024 for chest pain and productive cough. EKG did not show any ST or T wave changes. Troponin series: 21 -> 19 -> 19. Hemoglobin 7.7. While in the emergency room she developed some hypotension and bradycardia, found to have cystitis and treated with antibiotics, urine drug screen positive for marijuana. She initially went to [facility] but was transferred to ICU due to sinus bradycardia in the 40s with hypotension requiring dopamine infusion. Lactic acid was elevated and she was treated for sepsis. Echocardiogram 10/29/2024: LVEF 60%, mild LVH, grade 3 diastolic dysfunction, mild tricuspid regurgitation. Plavix initially held and she was transfused 1 unit yesterday. She has been pursuing workup with capsule endoscopy, it is the reason that she no showed a stress test scheduled for 10/06 as an outpatient. She has not had any chest pain since the blood transfusion yesterday. Multiple EKGs were done on 11/04, as well as 11/05 and 11/06. No acute ST or T wave changes were noted, EKG on 11/04/24 showed sinus bradycardia heart rate 46 bpm, no ischemic changes. Since then she has not had any symptomatic bradycardia, some heart rates around 54 bpm during exam. Review of Systems 2 Const: Denies: fever(s), chills, change in weight, fatigue or diaphoresis Eyes: Denies: change in vision ENMT: Denies: epistaxis Card: Denies: chest pain, palpitations, irregular heart rhythm, edema, syncope, pre-syncope, dyspnea on exertion, orthopnea or leg pain with exertion Resp: Denies: dyspnea, productive cough or wheezing GI: Denies: nausea, vomiting, hematemesis, hematochezia or melena : Denies: hematuria Musc: Denies: extremity swelling Jl/Lymph: Denies: easy bruising or easy bleeding Medications/Allergies Home Medications ?Medication ?Instructions ?Recorded ?Confirmed ?Last Taken ?Type levothyroxine 112 mcg tablet 112 mcg PO QAM low thyroi d #90 tabs 10/15/22 11/04/24 11/03/24 Rx Bone growth stimulator #1 ea 01/22/23 11/04/24 Unkn own Rx Bone growth stimulator #1 ea 02/05/23 11/04/24 Unkn own Rx fluticasone propionate 50 1 spray intranasal BID PRN 0 09/27/23 11/04/24 12/29/23 History mcg/actuation nasal allergies spray,suspension gabapentin 300 mg capsule 300 mg PO TID 09/27/2311/0411/03/24 History tens unit for cervical #1 ea 12/16/23 11/04/24 Unkn own Rx albuterol sulfate 90 mcg/actuation 1 puff inhalation Q 6H PRN 12/20/23 11/04/24 Unknown Rx aerosol inhaler Shortness Of Breath #6.7 gra ms oxycodone 10 mg tablet 10 mg PO Q8H PRN Pain 11/04/24 11/03/24 History insulin syringes (disposable) 1 mL #25 ea 05/30/24 Unknown Rx methotrexate sodium 25 mg/mL 20 mg (0.8 mL) SUBCUT .Q7 days #10 05/30/24 11/04/24 10/30/24 Rx injection solution mL venlafaxine 75 mg capsule,extended 75 mg PO DAILY 10/1011/04/24 11/03/24 History release 24 hr ropinirole 5 mg tablet 5 mg PO BID #270 tabs 11/04/24 11/03/24 Rx clopidogrel 75 mg tablet 75 mg PO DAILY 11/04/24 07/10/0411/03/24 History promethazine 12.5 mg tablet 12.5 mg PO Q8H PRN Nausea 11/04/24 11/04/24 Unknown History baclofen 10 mg tablet 5 mg (1/2 x 10 mg) PO Q12H P RN 11/07/24 11/04/24 10/21/24 Rx Muscle Spasm #30 tabs cefdinir 300 mg capsule 300 mg PO BID 5 days #10 cap s 11/07/24 Unknown Rx furosemide 80 mg tablet 40 mg (1/2 x 80 mg) PO DAILY #30 11/07/24 11/04/24 11/03/24 Rx tabs pantoprazole 40 mg tablet,delayed 40 mg PO DAILY #30 t abs 11/07/24 Unknown Rx release (Protonix) potassium chloride 20 mEq 20 meq PO DAILY #30 tabs 11/04/24 11/03/24 Rx tablet,extended release sucralfate 1 gram tablet 1 g PO BID 8 weeks #112 tabs 11/07/24 Unknown Rx Allergies Allergy/AdvReac Type Severity Reaction Status Date / Time ibuprofen Allergy Unknown ADR-Anxiety Verified 09/23/24 04:24 tizanidine Allergy Unknown Unknown Verified 09/23/24 04:24 acetaminophen Allergy ADR-Anxiety Verified 09/23/24 04:24 amitriptyline Allergy ADR-Agitate Verified 09/23/24 04:24 d diphenhydramine (From Allergy ADR-Agitate Verified 09/23/24 04:24 Benadryl) d morphine Allergy ADR-Halluci Verified 09/23/24 04:24 nating prochlorperazine (From Allergy Unknown Verified 09/23/24 04:24 Compazine) leflunomide AdvReac Intermediate GI adverse Verified 09/23/24 04:24 reactions sulfasalazine AdvReac Intermediate ADR-Nausea Verified 09/23/24 04:24 and acid reflux Current Medications Generic Name Dose Route Start Last Admin Trade Name Freq PRN Reason Stop Dose Admin Piperacillin Sod/Tazobactam 50 mls @ 12.5 mls/hr 11/04/24 20:00 11/07/24 13:46 Sod 3.375 gm/ Sodium Chloride IV Not Given Q8H KIM Vancomycin HCl 750 mg/ Sodium 250 mls @ 250 mls/hr 11/05/24 18:00 11/06/24 18:32 Chloride IV Infused Q24H KIM Infusion Levothyroxine Sodium 112 mcg 11/05/24 06:00 11/07/24 06:06 Levothyroxine 112 Mcg Tablet PO 112 mcg QAM KIM Administration Ondansetron HCl 4 mg 11/04/24 10:07 11/07/24 08:36 Ondansetron 2 Mg/Ml Sdv 2 Ml IVP 4 mg Q8H PRN Administration vomiting, or N/V if npo Pantoprazole Sodium 40 mg 11/04/24 10:15 11/07/24 08:27 Pantoprazole 40 Mg Sdv IVP 40 mg Q12H KIM Administration Ropinirole HCl 5 mg 11/05/24 09:00 11/07/24 08:28 Ropinirole 1 Mg Tablet PO 5 mg BID KIM Administration Sucralfate 1 gm 11/04/24 10:15 11/07/24 08:27 Sucralfate 1 Gm/10 Ml Oral Liq Udc PO 1 gm Q6H KIM Administration PFSH Acute 2 PFSH: Medical History (Updated 11/07/24 @ 15:02 by MALIK Ulloa) Pneumonia DVT (deep venous thrombosis) Acute GI bleeding History of deep vein thrombosis GERD (gastroesophageal reflux disease) Pre-operative clearance Acute anemia Hematoma complicating a procedure Cervical adenopathy GI bleed Osteoarthritis, shoulder Cervical spondylosis with myelopathy GERD with esophagitis Allergic rhinitis due to allergen RLS (restless legs syndrome) Substance or medication-induced sleep disorder, insomnia type Anxiety and depression High risk medication use Seropositive rheumatoid arthritis of multiple sites Extrapyramidal and movement disorder CKD (chronic kidney disease) stage 3, GFR 30-59 ml/min Lung nodule, solitary Prediabetes Hyperlipidemia Iron deficiency anemia Hypothyroidism Surgical History S/P insertion of IVC (inferior vena caval) filter Status post cervical spinal fusion History of cholecystectomy History of appendectomy History of delivery History of hysterectomy with bilateral oophorectomy History of ankle surgery left Previous back surgery Social History Smoking and tobacco/nicotine status: former use of tobacco/nicotine Quit status (tobacco/nicotine): has quit using Year quit tobacco: 2009 Former quit date comment: Smoked for 9 months Alcohol intake: current Alcohol intake frequency: holidays/special occasions only Substance/Drug Use: never Vitals/I&O/Wt Last Vital Signs Temp 98.1 F 11/07/24 08:00 Pulse 60 11/07/24 10:35 Resp 21 H 11/07/24 10:35 BP 153/68 11/07/24 10:35 Pulse Ox 96 11/07/24 10:35 O2 Del Method Room Air 11/07/24 02:39 11/06/24 11/07/24 11/07/24 22:59 06:59 14:59 Intake Total 1200 / 3495 300 / 3495 240 / 240 Output Total 150 / 150 Balance 1050 / 3345 300 / 3345 240 / 240 Weight last 48 hrs Weight 153 lb 4.8 oz Weight 154 lb 4 oz Physical Exam 2 Const: COMMON NORMALS: no acute distress and patient oriented x3 GENERAL APPEARANCE: cooperative and comfortable ORIENTATION/CONSCIOUSNESS: Yes awake, Yes oriented to person, Yes oriented to place and Yes oriented to time Chest: COMMONS NORMALS: normal inspection of the chest and normal palpation of entire chest wall CHEST: Yes Symmetrical chest wall rise Resp: COMMON NORMALS: normal respiratory effort, No retractions, No use of accessory muscles and clear to auscultation bilaterally EFFORT & INSPECTION: Yes symmetric chest movement AUSCULTATION: clear to auscultation bilaterally Cardio: COMMON NORMALS: regular rate, regular rhythm, S1 normal heart sound present, S2 normal heart sound present, No gallops present (Cardio), No clicks present (Cardio), No murmurs present (Cardio) and No rub (Cardio) RATE: r egular rate RHYTHM: regular rhythm HEART SOUNDS: S1 normal heart sound present and S2 normal heart sound present PERIPHERAL PULSES: radial pulses present Extremity: COMMON NORMALS: no pedal edema Neuro: COMMON NORMALS: patient oriented x3 and moves all extremities S ENSORIUM/ORIENTATION: Yes oriented to person, Yes oriented to place and Yes oriented to time Data 11/07/24 03:01 11/07/24 03:01 Micro: Microbiology 11/04/24 06:57 Urine Culture - Final Urine,Clean Catch Klebsiella pneumoniae A&P Assessment and plan 1. Chest pain: 2. Bradycardia: 3. Diastolic congestive heart failure: Plan: The reason for the bradycardia is not clear. Given that she had chest pain yesterday, Lexiscan stress testing was recommended however patient became very upset at that because she was set on going home this afternoon. She was advised the reason for the test and completely declined to stay for testing. She is aware of the risks of heart attack if she does not complete the testing. She can have this rearranged as an outpatient. PDMP PDMP Reviewed: Not Reviewed Coding Level of Care Code Acute Code for Chg Fwd Diagnoses Chest pain R07.9 Bradycardia R00.1 Diastolic congestive heart failure I50.30
--- NOTE | 2024-11-07 13:56 | PM.DCS ---
Discharge Providers Date of Admission: 11/04/24 08:39 Date of Discharge: November 07, 2024 Attending Provider at Admission: Bernard Ray MD Attending Provider at Discharge: Dolores Vargas MD Primary Care Provider: Diana Garcia Diagnoses at Discharge Discharge Diagnosis 1. DVT (deep venous thrombosis): 2. Chest pain: 3. GERD (gastroesophageal reflux disease): 4. Cystitis: 5. ZAHRA (acute kidney injury): 6. Anemia: 7. GI bleed: 8. Sepsis: 9. Bradycardia: 10. Pneumonia: Reason for Visit Reason for Visit: CP Hospital Course Hospital Course Tosha Perry is a 69 year old female with a past medical history of anemia, history of GI bleed, history of DVT, history of IVC filter, history of restless leg syndrome,, history of hypothyroidism, is on multiple medications such as oxycodone/gabapentin/Requip, who presents [facility] for chest pain. Currently patient is alert to person, she knows that she is in the hospital does not oriented to time, per my conversation with her she easily falls back asleep, she is on room air, telemetry monitoring shows sinus bradycardia she is normotensive, no family members at bedside. Patient reports chest discomfort, but is not able to elaborate as during my conversation she falls back asleep, she denies any shortness of breath, no abdominal pain, no headache, unfortunately cannot get much history from her as she can be truly falls asleep during our conversation (per Dr. Ray) She was admitted with heart rates in the low 40s sinus bradycardia with soft blood pressures with MAP around 65. She was given albumin IV fluid bolus. Lactic acid was high at 8.9. She was given broad-spectrum antibiotics vancomycin and Zosyn. There was concerns for UTI. CT abdomen pelvis did not show any obstructive uropathy. Patient did have a UTI with urine culture positive and pansensitive. Bradycardia resolved. She did require dopamine drip during ICU stay. She did have nonspecific chest pain as well. She says that she has a lot of anxiety and this happens at home as well. She requested a Xanax which improved her chest pain. EKG at that time did not show any T wave changes or ST elevations. Chest pain was only a one-time episode. Cardiology was consulted who recommended stress testing to be done as an inpatient. Patient became quite upset and stated that she wanted to go home. She was not willing to stay for a stress test at this time. Earlier in September stress test was ordered as an outpatient as well at which point patient did not complete that either. Patient was explained the risks of leaving the hospital however she wanted to go home. Cardiology recommended at this point to have stress test done as an outpatient to which patient agreed. At this time of discharge patient is not having any chest pain and feels okay. She did receive 1 unit of packed RBCs during hospitalization. She was given repeat labs to do as an outpatient. Cardiology will follow this up. There is no active source of bleeding. No hematochezia no hematuria noted. He has a longstanding history of anemia and does have an IVC filter in place. Initially Plavix was held during hospitalization however it has been restarted after discussion with cardiology. She will see cardiology outpatient. I did advise her earlier this morning that if she has any worsening symptoms to come back to the hospital right away to which she was agreeable to. Patient stress test was set up for the patient. Physical Exam Const: COMMON NORMALS: no acute distress and patient oriented x3 Resp: COMMON NORMALS: normal respiratory effort, No retractions, No use of accessory muscles and clear to auscultation bilaterally AUSCULTATION: clear to auscultation bilaterally Cardio: COMMON NORMALS: regular rate, regular rhythm, S1 normal heart sound present and S2 normal heart sound present RATE: regular rate RHYTHM: regular rhythm HEART SOUNDS: S1 normal heart sound present and S2 normal heart sound present GI: COMMON NORMALS: Normal to inspection, nondistended, normoactive bowel sounds present and non-tender Extremity: COMMON NORMALS: no pedal edema Neuro: COMMON NORMALS: patient oriented x3 Psych: COMMON NORMALS: mental status grossly normal Skin: COMMON NORMALS: turgor normal GENERAL SKIN EXAM: turgor normal Discharge Data Studies Completed and Pending Completed Studies During Hospitalization Category Date Time Status CT abdomen pelvis wo con [id number] Stat Cat Scan 11/04/24 07:[address] chest wo con [id number] Routine Cat Scan 11/04/24 17:[address] head wo con* [id number] Routine Cat Scan 11/04/24 10:26 Completed XR chest 1V portable [id number] Stat Exams 11/04/24 05:07 Completed CV. echo limited [id number] Routine Ultrasound 11/05/24 17:54 Completed Pending at discharge Category Date Time Status Blood Culture Stat Lab 11/04/24 09:31 Results Leukocyte Reduced RBC Routine Lab 11/04/24 08:05 Results Type and Screen Routine Lab 11/04/24 08:05 Results Radiology Impressions Chest X-Ray 11/04/24 05:07 IMPRESSION: No acute findings. Abdomen/Pelvis CT 11/04/24 07:58 IMPRESSION: 1. No acute abnormality identified . 2. Hiatal hernia. Thickened gastric wall which is nonspecific. 3. Status post cholecystectomy. 4. Status post hysterectomy. 5. Status post appendectomy COMMENTS: For patients with an IVC filter, recommend assessment for a management plan for the patient's IVC filter. If there is no established management plan, recommend referral to an interventional clinician on a nonemergent basis for evaluation. Head CT 11/04/24 10:26 IMPRESSION: No acute intracranial abnormality. Stable findings. Chest CT 11/04/24 17:52 IMPRESSION: 1. Bibasilar infiltrate with atelectasis along with mild bronchiectasis, predominantly within the posterior lung bases. Findings suggest bibasilar pneumonia. 2. Rbpm-[id number]-[id number] hiatal hernia and suggestion of esophageal thickening. 3. Arteriosclerosis thoracic aorta and coronary artery calcification. Laboratory Results WBC 5.72 10^3/uL (3.29-11.43) 11/07/24 03:01 RBC 3.24 10^6/uL (3.85-5.65) L 11/07/24 03:01 Hgb 8.90 g/dL (11.27-16.99) L 11/07/24 03:01 Hct 28.7 % (36-47) L 11/07/24 03:01 MCV 88.6 fl (85-98) 11/07/24 03:01 MCH 27.5 pg (27-33) 11/07/24 03:01 MCHC 31.0 g/dL (30-55) 11/07/24 03:01 RDW 21.0 % (12.1-15.1) H 11/07/24 03:01 Plt Count 319 10^3/cmm (157-399) 11/07/24 03:01 MPV 9.9 fL (7.4-10.4) 11/07/24 03:01 Neut % (Auto) 48.6 % 11/07/24 03:01 Lymph % (Auto) 24.1 % 11/07/24 03:01 [place] % (Auto) 21.0 % 11/07/24 03:01 Eos % (Auto) 5.1 % 11/07/24 03:01 Baso % (Auto) 0.7 % 11/07/24 03:01 Reticulocyte % (Auto) 3.6 % (0.5-2.0) H 11/04/24 05:56 Neut # (Auto) 2.78 10^3/uL (1.8-7.7) 11/07/24 03:01 Lymph # (Auto) 1.4 10^3/uL (0.8-4.8) 11/07/24 03:01 [place] # (Auto) 1.2 10^3/uL (0.2-0.9) H 11/07/24 03:01 Eos # (Auto) 0.3 10^3/uL (0.0-0.8) 11/07/24 03:01 Baso # (Auto) 0.0 10^3/uL (0.0-0.1) 11/07/24 03:01 Nucleated RBC % (auto) 0 % 11/07/24 03:01 Nucleated RBCs # 0.0 /100WBC 11/07/24 03:01 PT 14.70 SECONDS (12.1-14.9) 11/04/24 16:45 INR 1.08 (0.8-1.2) 11/04/24 16:45 APTT 31.0 SECONDS (23.9-36.7) 11/04/24 16:45 Specimen Type Arterial 11/04/24 12:17 Sample Site Radial, left 11/04/24 12:17 ABG pH 7.41 (7.35-7.45) 11/04/24 12:17 ABG pCO2 43.2 mmHg (35-45) 11/04/24 12:17 ABG pO2 75.2 mmHg (80.0-100.0) L 11/04/24 12:17 ABG PO2/FiO2 Ratio 358 11/04/24 12:17 ABG HCO3 27.6 mmol/L (22-26) H 11/04/24 12:17 ABG Base Excess 2.7 mmol/L (-2.0-2.0) H 11/04/24 12:17 Shahzad Test Pos 11/04/24 12:17 Hematocrit 24.5 % (37-47) L 11/04/24 12:17 O2 Delivery Device Room air 11/04/24 12:17 FiO2 21.0 % 11/04/24 12:17 Account Installation Specialist ID Tejinder 11/04/24 12:17 Sodium 143 mmol/L (136-145) 11/07/24 03:01 Potassium 3.2 mmol/L (3.5-5.1) L 11/07/24 03:01 Chloride 108 mmol/L (98-107) H 11/07/24 03:01 Carbon Dioxide 23 mmol/L (22-29) 11/07/24 03:01 Anion Gap 15.2 (5-19) 11/07/24 03:01 BUN 6 mg/dL (8-23) L 11/07/24 03:01 Creatinine 0.9 mg/dL (0.5-0.9) 11/07/24 03:01 GFR Calculation 61.9 mL/min (90-130) L 11/07/24 03:01 Glucose 104 mg/dL (65-115) 11/07/24 03:01 Estimat Average Glucose 120 11/04/24 05:56 Hemoglobin A1c 5.8 % (4.0-6.0) 11/04/24 05:56 Calculated Osmolality 294 mOsm/kg (285-295) 11/07/24 03:01 Lactic Acid 8.9 mmol/L (0.5-2.2) H* 11/04/24 16:45 Lactic Acid (Sepsis) 1.0 mmol/L (0.5-2.2) 11/04/24 20:10 Lactate 1.2 mmol/L (0.5-2.2) 11/05/24 04:35 Calcium 8.7 mg/dL (8.5-10.5) 11/07/24 03:01 Magnesium 1.9 mg/dL (1.7-2.3) 11/04/24 16:45 Iron 32 ug/dL (37-145) L 11/04/24 05:56 TIBC 204 mcg/dl 11/04/24 05:56 % Saturation 15.6 % (20-50) L 11/04/24 05:56 Unsat Iron Binding 172 ug/dL (112-347) 11/04/24 05:56 Ferritin 854 ng/mL (15-150) H 11/04/24 05:56 Total Bilirubin 0.9 mg/dL (0.15-1.2) 11/07/24 03:01 AST 18 U/L (0-32) 11/07/24 03:01 ALT 7 U/L (0-33) 11/07/24 03:01 Alkaline Phosphatase 81 U/L (35-105) 11/07/24 03:01 Ammonia 28 umol/L (11-51) 11/04/24 16:45 Troponin T Baseline 20 ng/L (0-10) H 11/04/24 18:13 Troponin T 120 Minute 18.85 ng/L (0-10) H 11/04/24 20:10 Delta Troponin T -1.15 ABS# (0-10) L 11/04/24 20:10 Troponin T Hi Sens 6Hr 16.60 ng/L (0-10) H 11/05/24 00:38 Troponin T Hi Sens 6Hr Delta -3.40 ng/L (0-12) L 11/05/24 00:38 C-Reactive Protein 38.7 mg/L (0.0-4.9) H 11/04/24 05:56 NT-Pro-B Natriuret Pep 5200 pg/mL (0-125) H 11/07/24 03:01 Total Protein 6.3 g/dL (6.6-8.7) L 11/07/24 03:01 Albumin 3.8 g/dL (3.5-5.2) 11/07/24 03:01 Globulin 2.5 g/dL (1.3-4.6) 11/07/24 03:01 Triglycerides 116 mg/dL (0-150) 11/04/24 05:56 Cholesterol 150 mg/dL (0-200) 11/04/24 05:56 LDL Cholesterol, Calc 87 mg/dL (50-129) 11/04/24 05:56 HDL Cholesterol 40 mg/dL (60-100) L 11/04/24 05:56 LDL/HDL Ratio 2.18 RATIO (0.00-3.22) 11/04/24 05:56 Cholesterol/HDL Ratio 3.75 mg/dL (0.0-4.40) 11/04/24 05:56 Procalcitonin 0.16 ng/mL (0-0.5) 11/04/24 05:56 TSH 1.32 uIU/mL (0.27-4.20) 11/04/24 05:56 Urine Color Yellow (Yellow) 11/04/24 06:57 Urine Appearance Clear (CLEAR) 11/04/24 06:57 Urine pH 5.5 (5-7) 11/04/24 06:57 Ur Specific [place] 1.012 (1.005-1.030) 11/04/24 06:57 Urine Protein Neg (Negative) 11/04/24 06:57 Urine Glucose (UA) Norm (Normal) 11/04/24 06:57 Urine Ketones Negative (Negative) 11/04/24 06:57 Urine Blood Neg (Negative) 11/04/24 06:57 Urine Nitrate Negative (Negative) 11/04/24 06:57 Urine Bilirubin Neg (Negative) 11/04/24 06:57 Urine Urobilinogen 0.2 mg/dL (Negative) 11/04/24 06:57 Ur Leukocyte Esterase Trace (Negative) 11/04/24 06:57 Urine RBC 0-2 /hpf (0-2) 11/04/24 06:57 Urine WBC 21-50 /hpf (0-5) H 11/04/24 06:57 Ur Squamous Epith Cells 0-5 /hpf (0-5) 11/04/24 06:57 Amorphous Sediment Not Reportable 11/04/24 06:57 Urine Bacteria 4+ /hpf (NONE) H 11/04/24 06:57 Hyaline Casts 0.4 /lpf 11/04/24 06:57 Salicylates < 0.3 mg/dL (3-10) L 11/04/24 20:10 Urine Opiates Screen Negative ng/mL (Negative) 11/04/24 06:57 Acetaminophen < 5.0 ug/mL (10-30) L 11/04/24 20:10 Ur Barbiturates Screen Negative ng/mL (Negative) 11/04/24 06:57 Ur Phencyclidine Scrn Negative ng/mL (Negative) 11/04/24 06:57 Ur Amphetamines Screen Negative ng/mL (Negative) 11/04/24 06:57 U Benzodiazepines Scrn Positive ng/mL (Negative) H 11/04/24 06:57 Urine Cocaine Screen Negative ng/mL (Negative) 11/04/24 06:57 U Marijuana (THC) Screen Positive ng/mL (Negative) H 11/04/24 06:57 Blood Type O Positive 11/04/24 08:05 Rho(D) Type Rh positive 11/04/24 08:05 Antibody Screen Negative 11/04/24 08:05 Crossmatch See Detail 11/04/24 08:05 Vitals Last Vital Signs Temp 98.1 F 11/07/24 08:00 Pulse 60 11/07/24 10:35 Resp 21 H 11/07/24 10:35 BP 153/68 11/07/24 10:35 Pulse Ox 96 11/07/24 10:35 O2 Del Method Room Air 11/07/24 02:39 Discharge Plan Discharge Patient Disposition: Home Condition: Stable Prescriptions: New sucralfate 1 gram tablet 1 g PO BID 56 Days Qty: 112 0RF pantoprazole [Protonix] 40 mg tablet,delayed release (DR/EC) 40 mg PO DAILY Qty: 30 0RF cefdinir 300 mg capsule 300 mg PO BID 5 Days Qty: 10 0RF Continued (DME) tens unit for cervical See Rx Instructions .Route .MEDSUPPLY Qty: 1 0RF Rx Instructions: As directed levothyroxine 112 mcg tablet 112 mcg PO QAM Qty: 90 1RF (DME) Bone growth stimulator See Rx Instructions .Route .MEDSUPPLY Qty: 1 0RF Rx Instructions: As directed (DME) Bone growth stimulator See Rx Instructions .Route .MEDSUPPLY Qty: 1 0RF Rx Instructions: As directed albuterol sulfate 90 mcg/actuation HFA aerosol inhaler 1 puff inhalation Q6H PRN (Reason: Shortness Of Breath) Qty: 6.7 0RF (DME) insulin syringes (disposable) 1 mL syringe See Rx Instructions .ROUTE .MEDSUPPLY Qty: 25 3RF Rx Instructions: As directed methotrexate sodium 25 mg/mL solution 20 mg SUBCUT .Q7days Qty: 10 1RF Rx Instructions: ON MONDAYS oxycodone 10 mg tablet 10 mg PO Q8H PRN (Reason: Pain) venlafaxine 75 mg capsule,extended release 24hr 75 mg PO DAILY ropinirole 5 mg tablet 5 mg PO BID Qty: 270 0RF gabapentin 300 mg capsule 300 mg PO TID fluticasone propionate 50 mcg/actuation spray,suspension 1 spray INTRANASAL BID PRN (Reason: allergies) promethazine 12.5 mg tablet 12.5 mg PO Q8H PRN (Reason: Nausea) clopidogrel 75 mg tablet 75 mg PO DAILY Changed baclofen 10 mg tablet 5 mg PO Q12H PRN (Reason: Muscle Spasm) Qty: 30 0RF furosemide 80 mg tablet 40 mg PO DAILY Qty: 30 0RF potassium chloride 20 mEq tablet extended release 20 meq PO DAILY Qty: 30 0RF Rx Instructions: take with your furosemide 80 mg Discharge Order = DC NOW: Discharge Order (Routine); Ordered 11/07/24 Ordered By: Dolores Vargas Other Ambulatory Orders: Complete Blood Count w/Auto (Routine) Timeframe: 3 Days Location: Determined by Patient Ordered By: Dolores Vargas Sestamibi Stress Test Request (Routine) Timeframe: 1 Day Facility: [facility] - Location: Cardiac Diagnostic Laboratory Ordered By: Dolores Vargas Referrals: Chava Mckinley M.D [Physician, Cardiology] - 11/13/24 3:30 pm Hallie Glass FNP [Nurse Practitioner, Cardiology] - 4-7 days Diana Garcia PA [Primary Care Provider, [facility]] - 11/15/24 9:40 am Discharge Diet: Cardiac Discharge Activity: Resume usual activity Patient Instructions: Sucralfate (By mouth), Cefdinir (By mouth), Pantoprazole (By mouth), Opioid Safety, Patient Portal & Cece Instructions Discharge Attestations Time Spent in Discharge Care*: greater than 30 min Status at Discharge: Cognitive status at discharge: cognitively intact, Behavioral status at discharge: cooperative, Quality Metrics Clinical Quality Measures [ No reported AMI, CVA or VTE this stay] Coding Level of Care Code Acute Code for Chg Fwd Diagnoses DVT (deep venous thrombosis) I82.409 Chest pain R07.9 GERD (gastroesophageal reflux disease) K21.9 Cystitis N30.90 ZAHRA (acute kidney injury) N17.9 Anemia D64.9 GI bleed K92.2 Sepsis A41.9 Bradycardia R00.1 Pneumonia J18.9
== END 2024-11-07 14:48 | disposition home or self-care (01) | DRG 871 ==
LOC: ER 09:01 → CSU 09:27 → ICU 19:45 → CSU 11-06 14:23
PROVIDERS: Emergency Medicine; Admitting Provider Family Medicine; Emergency Provider Family Medicine; PCP Physician Assistant; Visit Provider Internal Medicine
DX: A41.9 Sepsis, unspecified organism (principal); G93.41 Metabolic encephalopathy; J18.9 Pneumonia, unspecified organism; N17.9 Acute kidney failure, unspecified; J44.0 Chronic obstructive pulmonary disease with (acute) lower respiratory infection; E87.20 Acidosis, unspecified; R07.9 Chest pain, unspecified; K21.9 Gastro-esophageal reflux disease without esophagitis; N30.90 Cystitis, unspecified without hematuria; D50.9 Iron deficiency anemia, unspecified; R00.1 Bradycardia, unspecified; G25.81 Restless legs syndrome; E03.9 Hypothyroidism, unspecified; B96.1 Klebsiella pneumoniae [K. pneumoniae] as the cause of diseases classified elsewhere; I50.9 Heart failure, unspecified; R94.31 Abnormal electrocardiogram [ECG] [EKG]; E78.5 Hyperlipidemia, unspecified; N18.30 Chronic kidney disease, stage 3 unspecified; M05.9 Rheumatoid arthritis with rheumatoid factor, unspecified; F32.A Depression, unspecified; F41.9 Anxiety disorder, unspecified; Z79.891 Long term (current) use of opiate analgesic; Z79.02 Long term (current) use of antithrombotics/antiplatelets; Z86.718 Personal history of other venous thrombosis and embolism; Z95.828 Presence of other vascular implants and grafts; Z87.01 Personal history of pneumonia (recurrent)
CPT/HCPCS: 36415; 36430; 36592; 36600; 70450; 71045; 71250; 74176; 80048; 80053; 80061; 80306; 80307; 81001; 82140; 82728; 82803; 83036; 83540; 83550; 83605; 83735; 83880; 84145; 84443; 84484; 85014; 85018; 85025; 85045; 85610; 85730; 86140; 86850; 86900; 86920; 87040; 87077; 87086; 87186; 93005; 93308; 94664; 96374; 99285; C1751; J1171; J1265; J2405; J2470; J2543; J3373; J3480; J7030; J7040; J7050; J7120; J9999; P9016; P9046; P9047; Q0169

== ENCOUNTER 2024-12-24 06:34 | Inpatient (IN) | payer MEDICARE, OTHER, SELFPAY ==
--- OUTSIDE RECORDS SUMMARY | 2024-07-17 04:30 | XMS_ITS ---
Author Organization [facility] Address [address] [place] [address] Care Team Providers Care Print Production Coordinator Name Role Phone Diana Galvan Primary Care Provider Mode Leavitt Unavailable [phone] Paxton Nobles Unavailable [phone] REASON FOR VISIT wants new mri Encounters Encounter Location Date Provider Diagnosis [facility] [place] [address] [place] [address] 07/17/2024 Paxton Nobles Plan Of Treatment Next Appt Details Provider Name:Mode Cabello, 01/31/2025 01:20:00 PM, [address] [place], [address], Progress Notes * BARRY VAN SDOB:[birth year] (69 yo F)Acc No.[id number]:07/17/2024 Progress Notes Patient: BARRY LIVINGSTON Provider: Rosalia Nobles APRN :1955 A ge:69 Y S ex:Female Date:07/17/2024 Address:[address] [place] [address] [place] [id number] Pcp:SHIV Chong Subjective: * Chief Complaints: * W ants new mri Billing Information: * Procedure Codes: Care Plan Details* * Electronic signature of Will MALIK Donald on 12/24/2024 at 06:39 AM CDT Sign off status: Pending * Provider: Rosalia Nobles APRN Date: 0 07/17/2024 Generated for Shen lindo/Sindy/Chandler on: 0 12/24/2024 06:39 AM CDT
[2024-12-24] VITALS (46 sets, daily range): BP systolic 85–149; BP diastolic 42–80; PULSE 38–64; RESP 9–25; TEMP 36.4–36.9; O2SAT 92–100; BMI 24.1
--- NOTE | 2024-12-24 06:35 | ECG_ITS ---
[facility]24[facility]24 Pat Name: Tosha Perry Department: Room: Gender: Female [employer]: : 1955 Requested By: Coral Oconnor Order Number: [id number] Mirela MD: Clovis Martin M.D. Measurements Intervals [place] Rate: 48 P: 15 DC: 101 QRS: 38 QRSD: 88 T: 44 QT: 450 QTc: 404 Interpretive Statements SINUS BRADYCARDIA WITH SHORT DC INTERVAL Compared to ECG 11/06/2024 17:01:20 Short DC interval now present Electronically Signed On 12-24-2024 20:16:56 CDT by Clovis Martin M.D. [email or web address]
--- NOTE | 2024-12-24 06:35 | XRR_ITS ---
PROCEDURE INFORMATION: Exam: XR Chest Exam date and time: 12/24/2024 6:40 AM Age: 69 years old Clinical indication: Chest pressure; Prior surgery; Surgery date: 6+ months; Surgery type: Cervical fusion. Gb; C/O chest pain; Additional info: Cp TECHNIQUE: Imaging protocol: Radiologic exam of the chest. Views: 1 view. COMPARISON: CT chest con [id number] 11/04/2024 7:40 PM FINDINGS: Lungs: Mild interstitial prominence. Pleural spaces: Unremarkable. No pleural effusion. No pneumothorax. Heart/Mediastinum: Small hiatal hernia. Bones/joints: Anterior and posterior cervical fusion. XR/XR chest 1V portable [id number] IMPRESSION: No acute findings.
--- NOTE | 2024-12-24 06:40 | CTR_ITS ---
PROCEDURE INFORMATION: Exam: CT Abdomen And Pelvis With Contrast Exam date and time: 12/24/2024 7:35 AM Age: 69 years old Clinical indication: Nausea and vomiting; Abdominal pain; Localized; Upper; Prior surgery; Surgery date: 6+ months; Surgery type: Ivc filter, gb, kyphoplasty; Additional info: Abd pain TECHNIQUE: Imaging protocol: Computed tomography of the abdomen and pelvis with contrast. Radiation optimization: All CT scans at this facility use at least one of these dose optimization techniques: automated exposure control; mA and/or kV adjustment per patient size (includes targeted exams where dose is matched to clinical indication); or iterative reconstruction. Contrast material: OMNIPAQUE 350; Contrast volume: 100 ml; Contrast route: INTRAVENOUS (IV); COMPARISON: CT abdomen pelvis wo con [id number] 11/04/2024 8:12 AM RADIATION DOSE METRICS: Total DLP (mGy-cm): 410.7 FINDINGS: Diaphragm: Small/moderate hiatal hernia. Liver: Normal. No mass. Gallbladder and biliary ducts: Cholecystectomy. Stable intra and extrahepatic biliary prominence probably related to reservoir effect. Pancreas: Normal. No ductal dilation. Spleen: Normal. No splenomegaly. Adrenal glands: Normal. No mass. Kidneys and ureters: Normal. No hydronephrosis. Stomach and bowel: Diverticulosis without evidence of diverticulitis. Appendix: No evidence of appendicitis. Intraperitoneal space: Unremarkable. No free air. No significant fluid collection. Vasculature: IVC filter. Lymph nodes: Unremarkable. No enlarged lymph nodes. Urinary bladder: Unremarkable as visualized. Reproductive: Hysterectomy. Bones/joints: Multilevel kyphoplasty. Soft tissues: Unremarkable. CT/CT abdomen pelvis w con* [id number] IMPRESSION: No acute subdiaphragmatic pathology. COMMENTS: For patients with an IVC filter, recommend assessment for a management plan for the patient's IVC filter. If there is no established management plan, recommend referral to an interventional clinician on a nonemergent basis for evaluation.
--- OUTSIDE RECORDS SUMMARY | 2024-12-24 06:40 | XMS_ITS | Patient Health Record ---
Author Organization El Gonsalves D.O., [facility] Address [address] [place] [address] Care Team Providers Care Senior Support Analyst Name Role Phone VeeMadeline myersne Primary Care Provider El Brewer [phone] Allergies Allergen (clinical drug ingredient) Drug/Non Drug [...] Status Risk Notes Problem Shortness of breath (208576860) Shortness of breath (R06.02) Active confirmed Problem Anxiety (02846403) Anxiety (F41.9) Active confirmed Problem Abnormal PFT: MV V reduced disproportionate to FEV1 (R94.2) Active confirmed Problem Peripheral edema (66179815) Peripheral edema (R60.9) Active confirmed Problem Restless legs syndrome (08026654) Restless leg syndrome (G25.81) Active confirmed Problem Pulmonary hypertension (62540885) Pulmonary hypertension (I27.20) Active confirmed Problem Benign neoplasm of cerebral meninges (53941798) Meningioma (D32.9) Active confirmed Problem Hypokalemia (77851613) 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
--- OUTSIDE RECORDS SUMMARY | 2024-12-24 06:40 | XMS_ITS ---
Author Organization Unknown Immunizations Date Vaccine DateAdministered TimeAdministered VaccineCode Dose Strength Unit Medical Terminologist DueDate CptCode CvxCode ManufacturerCode LocationCode AdministeredBy Custom 2024 12:00 :00 AM Pneumoco ccal conjugat e PCV20, polysacc haride [id number] conjugat e, adjuvant , PF 05/24/2024 12:00:00 AM 1617 0.500 000 mL mL 216 [email or web address] 2024 12:00 :00 AM influenz a, seasonal , injectab le, preserva tive free 03/07/2024 12:00:00 AM 0000 0.500 000 mL mL 140
--- OUTSIDE RECORDS SUMMARY | 2024-12-24 06:40 | XMS_ITS | Patient Health Record ---
Author Organization [facility] Address [address] [place] [address] Care Team Providers Care Lion Hunter Name Role Phone Diana Galvan Primary Care Provider UnavailMode Estevez Unavailable [phone] Rajesh Serna Unavailable [phone] Paxton Nobles Unavailable [phone] Migration, Provider Unavailable Unavailable Judah Shelton Unavailable [phone] Desiree Cox Unavailable [phone] Deedee Villarreal Unavailable [phone] Allergies Allergen (clinical drug ingredient) Drug/Non Drug Allergy documented on EMR Reaction Allergy Type Onset Date Status diphenhydramine Benadryl Unknown Drug Allergy A ctive sumatriptan Imitrex Unknown Drug Allergy Activ e Results Component Value Reference Range Flag Notes Schedule Confirmation (Not y et reviewed by provider) Interpretation: Performing Lab: Notes/Report: Schedule Confirmation (Not y et reviewed by provider) Interpretation: Performing Lab: Notes/Report: Schedule Confirmation (Not y et reviewed by provider) Interpretation: Performing Lab: Notes/Report: Schedule Confirmation (Not y et reviewed by provider) Interpretation: Performing Lab: Notes/Report: Urine Drug Screen (cup read) - [id number] Reviewed date:06/22/2024 01:19:32 PM Interpretation:Positive Performing Lab: Notes/Report: Positive OXY + Urine Drug Screen (cup read) - [id number] Reviewed date:11/27/2024 02:11:57 PM Interpretation: Performing Lab: Notes/Report: OXY + IPMA Saliva Drug Screen Reviewed date:09/01/2024 10:27:02 AM Interpretation: Performing Lab: Notes/Report: Urine Confirmation Panel (in strument) - [id number] Reviewed date:12/05/2024 02:47:57 PM Interpretation: Performing Lab: Notes/Report: 6-Acetylmorphine 0 [...] the U.S. Food and Drug Administration. Oxycodone >2500.0 <37.5 ng/mL > This test was developed and its performance characteristics determined by [facility]. It has not been cleared or approved by the U.S. Food and Drug Administration. Oxymorphone 312 <75 ng/mL H This test was developed [...] the U.S. Food and Drug Administration. Tramadol 2 <75 ng/mL N This test was developed and its performance characteristics determined by [facility]. It has not been cleared or approved by the U.S. Food and Drug Administration. Norhydrocodone 0 <75 ng/mL N This test was [...] the U.S. Food and Drug Administration. Gabapentin >16337 <225 ng/mL > This test was developed [...] the U.S. Food and Drug Administration. Urine Confirmation Panel (in strument) - [id number] Reviewed date:06/28/2024 02:49:57 PM Interpretation: Performing Lab: [...] the U.S. Food and Drug Administration. Gabapentin >60401 <225 ng/mL > This test was developed [...] by the U.S. Food and Drug Administration. zzzUrine Drug Screen (confir mation by instrument) - 41213 Reviewed date:04/06/2024 12:03:00 PM Interpretation: Performing Lab: Notes/Report: Urine Drug Screen (cup read) - [id number] Reviewed date:03/30/2024 03:52:14 PM Interpretation: Performing Lab: Notes/Report: OXY + Urine Drug Screen (cup read) - [id number] Reviewed date:10/05/2024 10:34:03 AM Interpretation: Performing Lab: Notes/Report: BZO + OPI + zzzCT Outside CD (Not yet re viewed by provider) Interpretation: Performing Lab: Notes/Report: rpw=[id number]&org=iSite Tox Results Reviewed date:06/28/2024 02:49:57 PM Interpretation: Performing Lab: Notes/Report: Tox Results Reviewed date:12/05/2024 02:35:33 PM Interpretation: Performing Lab: Notes/Report: Reason For Referral Reason PVD - OZH 10/24/2023 : The left common femoral artery 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 Also thrombus within the right common femoral vein (IVC filter in place) Diagnosis 1 Peripheral vascular disease (I73.9) Referring Provider First Name Mode Referring Provider Last Name Irineo Referring Provider Speciality Interventi onal Pain Medicine Referred Organization [facility] Referred Provider Corby Mena Referred Address [address] [place] [address] [address],[place], [place],[address], Referred Provider Specialty Vascular [facility] faith General Notes Pamella Marlow 11/23/19 04:10:15 PM >Please schedule with Dr. Shelton or Wilmer Mena Brittany M 11/23/2023 04:37:14 PM >Called patient Ang PANDYAKiley braun 11/29/2023 02:10:10 PM >Appointment scheduled on 12/01 @ 2Kashmir Lisa 12/09/2023 08:14:16 AM >patient canceled due to being sick and will reschedule Kiley Guillen 12/09/2023 11:24:41 AM >Called patient YA Kiley Guillen 12/22/2023 10:24:17 AM >Called patient Wilmer PANDYAKiley 12/29/2023 08:17:23 AM >Called patient Ang PANDYAKiley braun 12/29/2023 08:56:59 AM >Appointment scheduled on 01.12 @ 2:30Kashmir Lisa 01/14/2024 07:57:51 AM >being followed by a in [place] Clinical Notes Hermelinda Genao 03:39:32 PM >More information to come, Hermelinda Genao 11/05/2023 09:04:39 AM >US and CT shows thrombus in right common femoral vein and IVC filter in place, 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 Referral Priority Routine Reason Please order cervica l spine x-ray in [place] Diagnosis 1 Arthrodesis status ( Z98.1) Referral Organization [facility] [place] Referring Provider First Name Paxton Referring Provider Last Name Giuliano Referring Provider Speciality Neurosurge tahmina Referral Priority Routine Reason Dr Garcia / Sam Spine x ray Diagnosis 1 Cervical pain (neck) (M54.2) Referral Organization [facility] Referring Provider First Name Paxton Referring Provider Last Name Giuliano Referring Provider Speciality Neurosurge tahmina Referral Priority Routine Reason EMG/NCV study of the bilateral upper extremities Diagnosis 1 Pain in right upper arm (M79.621) Diagnosis 2 Pain in left upper a rm (M79.622) Diagnosis 3 Cervical radiculopat hy (M54.12) Diagnosis 4 Cervical paraspinal muscle spasm (M62.838) Referral Organization [facility] Referring Provider First Name Rajesh Referring Provider Last Name Kareem Referring Provider Speciality Neurosurge tahmina Referred Provider [facility] ([facility]) Referred Provider Specialty Physical The rapist Referral Priority Routine Reason EMG/NCV Bilateral Up per Extremities Diagnosis 1 Pain in right upper arm (M79.621) Diagnosis 2 Pain in left upper a rm (M79.622) Diagnosis 3 Cervical radiculopat hy (M54.12) Diagnosis 4 Degenerative disc di sease, cervical (M50.30) Diagnosis 5 Cervical paraspinal muscle spasm (M62.838) Referral Organization [facility] [place] Referring Provider First Name Rajesh Referring Provider Last Name Kareem Referring Provider Speciality Neurosurge tahmina Referred Provider [facility] ([facility]) Referred Provider Specialty Physical The rapist Referral Priority Routine Reason Evaluation of a cerv ical spinal cord stimulator Diagnosis 1 Cervical paraspinal muscle spasm (M62.838) Diagnosis 2 Chronic pain syndrom e (G89.4) Diagnosis 3 Arthrodesis status ( Z98.1) Referring Provider First Name Rajesh Referring Provider Last Name Kareem Referring Provider Speciality Neurosurge tahmina Referred Organization [facility] Referred Provider Mode Cabello Referred Address [address] [facility],[address], General Notes Rico Alissa Do 0 05/19/2024 03:03:09 PM >ATC to schedule. Referral Priority Routine Reason Evaluation of a cerv ical spinal cord stimulator Diagnosis 1 Chronic pain syndrom e (G89.4) Diagnosis 2 Cervical paraspinal muscle spasm (M62.838) Diagnosis 3 Arthrodesis status ( Z98.1) Referral Organization [facility] [place] Referring Provider First Name Rajesh Referring Provider Last Name Kareem Referring Provider Speciality Neurosurge tahmina Referred Provider Mode Cabello Referred Provider Specialty Intervention al Pain Medicine Referral Priority Routine Medications Medication SIG (Take, Route, Frequency, Duration) Notes Start Date End Date Status oxyCODONE HCl 10 MG Tablet 1 tablet Orally every 8 hrs; Duration: 30 days As needed Do not exceed 3 per day Fill on 12/08/2024 11/27/2024 01/07/2025 Active Social History Social History Additional Details [...] Status Risk Notes Problem Chronic pain syndrome (113525094) Chronic pain syndrome (G89.4) 09/15/19 24 Active confirmed Problem Cervical spondylosis without myelopathy (117215348) Other spondylosis with radiculopathy, cervical region (M47.22) 09/15/19 24 Active confirmed Problem Degeneration of cervical intervertebral disc (67664569) Other cervical disc degeneration, unspecified cervical region (M50.30) 09/15/19 24 Active confirmed Problem Post-laminectomy syndrome (76022748) Postlaminectomy syndrome, not elsewhere classified (M96.1) 09/15/19 24 Active confirmed Problem Abnormal gait (21501197) Unspecified abnormalities of gait and mobility (R26.9) 09/15/19 24 Active confirmed Problem High risk drug monitoring status (489671237) USP (current) use of opiate analgesic (Z79.891) 09/15/19 24 Active confirmed Problem Cervical radiculopathy (78871737) Cervical radiculopathy (M54.12) Active confirmed Problem Degeneration of cervical intervertebral disc (63196484) Degenerative disc disease, cervical (M50.30) Active confirmed Problem 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29 kg/m2 11/27/2024 Encounters Encounter Location Date Provider Diagnosis [facility] [address] [address] 02/17/2024 Deedee Villarreal [facility] [address] [address] 01/13/2024 Deedee Villarreal [facility] [address] [place] [address] 01/31/2024 Paxton Nobles Arthrodesis status Z98.1 ; Cervical pain (neck) M54.2 ; Degenerative disc disease, cervical M50.30 ; Facet arthropathy, cervical M46.92 and Paraspinal muscle spasm M62.830 [facility] [place] [address] [place] [phone] 02/15/2024 Rajesh Serna Cervical radiculopathy M54.12 ; Cervical paraspinal muscle spasm M62.838 ; Arthrodesis status Z98.1 ; Pain in right upper arm M79.621 ; Pain in left upper arm M79.622 and Loosening of hardware in spine T84.498A [facility] [place] [address] [place] [address] 03/30/2024 Deedee Villarreal Chronic pain syndrom e G89.4 ; Other cervical disc degeneration, unspecified cervical region M50.30 ; Other spondylosis with radiculopathy, cervical region M47.22 ; Postlaminectomy syndrome, not elsewhere classified M96.1 ; Myalgia of auxiliary muscles, head and neck M79.12 ; Unspecified abnormalities of gait and mobility R26.9 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 [facility] [place] [address] [place] [phone] 04/26/2024 Mode Cabello Chronic pain syndrom e G89.4 ; Other spondylosis with radiculopathy, cervical region M47.22 ; Other cervical disc degeneration, unspecified cervical region M50.30 ; Myalgia of auxiliary muscles, head and neck M79.12 ; Postlaminectomy syndrome, not elsewhere classified M96.1 ; Unspecified abnormalities of gait and mobility R26.9 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 [facility] [place] [address] [place] [address] 05/04/2024 Rajesh Serna Cervical paraspinal muscle spasm M62.838 ; Chronic pain syndrome G89.4 ; Degenerative disc disease, cervical M50.30 ; Cervical radiculopathy M54.12 and Arthrodesis status Z98.1 [facility] [place] [address] [place] [phone] 05/24/2024 Mode Cabello Chronic pain syndrom e G89.4 ; Other cervical disc degeneration, unspecified cervical region M50.30 ; Other spondylosis with radiculopathy, cervical region M47.22 ; Myalgia of auxiliary muscles, head and neck M79.12 ; Postlaminectomy syndrome, not elsewhere classified M96.1 ; Unspecified abnormalities of gait and mobility R26.9 and USP (current) use of opiate analgesic Z79.891 [facility] [place] [address] [place] [address] 06/22/2024 Deedee Villarreal Chronic pain syndrom e G89.4 ; Other cervical disc degeneration, unspecified cervical region M50.30 ; Other spondylosis with radiculopathy, cervical region M47.22 ; Myalgia of auxiliary muscles, head and neck M79.12 ; Postlaminectomy syndrome, not elsewhere classified M96.1 ; Unspecified abnormalities of gait and mobility R26.9 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 [facility] [address] [address] 08/24/2024 Deedee Villarreal Chronic pain syndrom e G89.4 ; Other spondylosis with radiculopathy, cervical region M47.22 ; Myalgia of auxiliary muscles, head and neck M79.12 ; Unspecified abnormalities of gait and mobility R26.9 ; Postlaminectomy syndrome, not elsewhere classified M96.1 ; Other cervical disc degeneration, unspecified cervical region M50.30 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 [facility] [address] [address] 10/05/2024 Deedee Villarreal Chronic pain syndrom e G89.4 ; Other spondylosis with radiculopathy, cervical region M47.22 ; Myalgia of auxiliary muscles, head and neck M79.12 ; Unspecified abnormalities of gait and mobility R26.9 ; Postlaminectomy syndrome, not elsewhere classified M96.1 ; Other cervical disc degeneration, unspecified cervical region M50.30 and USP (current) use of opiate analgesic Z79.891 [facility] [address] [address] 11/27/2024 Deedee Villarreal Chronic pain syndrom e G89.4 ; Other spondylosis with radiculopathy, cervical region M47.22 ; Myalgia of auxiliary muscles, head and neck M79.12 ; Unspecified abnormalities of gait and mobility R26.9 ; Postlaminectomy syndrome, not elsewhere classified M96.1 ; Other cervical disc degeneration, unspecified cervical region M50.30 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 [address] [place] [address] 01/11/2024 Judah Shelton [facility] [place] [address] [place] [address] 02/08/2024 Paxton Nobles [facility] [place] [address] [place] [address] 03/30/2024 Rajesh Serna [facility] [address] [place] [address] 03/30/2024 Mode Cabello [facility] [place] [address] [place] [address] 04/10/2024 Rajesh Serna Cervical paraspinal muscle spasm M62.838 ; Degenerative disc disease, cervical M50.30 ; Cervical radiculopathy M54.12 ; Pain in left upper arm M79.622 and Pain in right upper arm M79.621 [facility] [place] [address] [place] [address] 05/17/2024 Mode Cabello [facility] [place] [address] [place] [address] 06/05/2024 Mode Cabello Other spondylosis with radiculopathy, cervical region M47.22 [facility] [place] [address] [place] [address] 06/22/2024 Mode Cabello Chronic pain syndrom e G89.4 and Other spondylosis with radiculopathy, cervical region M47.22 [facility] [place] [address] [place] [address] 07/10/2024 Deedee Villarreal [facility] [address] [place] [address] 08/17/2024 Mode Cabello [facility] [place] [address] [place] [address] 08/24/2024 Mode Cabello Other spondylosis with radiculopathy, cervical region M47.22 [facility] [place] [address] [place] [facility] [address] 10/05/2024 Desiree Harrisonutova-Pric e Other spondylosis with radiculopathy, cervical region M47.22 [facility] [place] [address] [facility] [address] 11/27/2024 Desiree Macuksyutova-Pric e Other spondylosis with radiculopathy, cervical region M47.22 [facility] [place] [address] [place] [facility] [address] 04/14/2024 Mode Cabello [facility] [address] [place] [address] 05/30/2024 Deedee Villarreal Assessments Encounter Date Diagnosis (ICD Code) Assessment Notes Treatment Notes Treatment Clinical Notes Section Notes 04/10/2024 Cervical paraspinal muscle spasm (ICD-10 - M62.838) 04/10/2024 Degenerative disc disease, cervical (ICD-10 - M50.30) 04/26/2024 Chronic pain syndrome (ICD-10 - G89.4) [...] with radiculopathy, cervical region (ICD-10 - M47.22) 02/15/2024 Cervical radiculopathy (ICD-10 - M54.12) 02/15/2024 Cervical paraspinal muscle spasm (ICD-10 - M62.838) 03/30/2024 Chronic pain syndrome (ICD-10 - G89.4) I had a nice discussion with the patient today regarding her chronic pain complaints. She continues to have a lot of neck pain and is following with Dr. Srena. She states that she is scheduled for [...] degeneration, unspecified cervical region (ICD-10 - M50.30) 01/31/2024 Arthrodesis status (ICD-10 - Z98.1) 01/31/2024 Cervical pain (neck) (ICD-10 - M54.2) 05/04/2024 Cervical paraspinal muscle spasm (ICD-10 - M62.838) 05/04/2024 Chronic pain syndrome (ICD-10 - G89.4) 05/24/2024 Chronic pain syndrome (ICD-10 - G89.4) [...] effects are noted. Last UDS and [place] TELEPHONE SERVICE REPRESENTATIVE reviewed today. Patient is advised that best [...] with radiculopathy, cervical region (ICD-10 - M47.22) 11/27/2024 Chronic pain syndrome (ICD-10 - G89.4) I had a nice discussion with the patient today regarding her chronic pain complaints. She continues with neck pain as well as myalgia mediated pain. She continues to have a lot of health problems and states all she has been told is that she has syncope. She states they are still doing a lot of testing on her and she has been in and out of the hospital a lot. She still holding off on the spinal cord stimulator until she can get her health problems under control. She is doing reasonably well on her current medication regimen so she will continue that at present level. I did discuss lifestyle modifications as well as a bowel regimen. She denies any other changes since we last seen her any untoward side effects of the medication. She will continue her medication at present level and return to clinic in 2 months to monitor for treatment effectiveness and compliance as well as for biannual appointment with Dr. Cabello. The patient continues with chronic pain requiring [...] effects are noted. Last UDS and [place] TELEPHONE SERVICE REPRESENTATIVE reviewed today. Patient is advised that best [...] to abide by our urine testing policy. 08/24/2024 Chronic pain syndrome (ICD-10 - G89.4) [...] 06/22/2024 Chronic pain syndrome (ICD-10 - G89.4) 11/27/2024 Other spondylosis with radiculopathy, cervical region (ICD-10 - M47.22) 06/22/2024 Other spondylosis with radiculopathy, cervical region (ICD-10 - M47.22) 08/24/2024 Myalgia of auxiliary muscles, head and neck (ICD-10 - M79.12) 11/27/2024 Other spondylosis with radiculopathy, cervical region (ICD-10 - M47.22) 10/05/2024 Other spondylosis with radiculopathy, cervical region (ICD-10 - M47.22) 06/22/2024 Other cervical disc degeneration, unspecified cervical region (ICD-10 - M50.30) 05/24/2024 Other spondylosis with radiculopathy, cervical region (ICD-10 - M47.22) 05/04/2024 Degenerative disc disease, cervical (ICD-10 - M50.30) 01/31/2024 Degenerative disc disease, cervical (ICD-10 - M50.30) 03/30/2024 Other spondylosis with radiculopathy, cervical region (ICD-10 - M47.22) 02/15/2024 Arthrodesis status (ICD-10 - Z98.1) 04/26/2024 Other cervical disc degeneration, unspecified cervical region (ICD-10 - M50.30) 04/10/2024 Cervical radiculopathy (ICD-10 - M54.12) 04/10/2024 Pain in left upper arm (ICD-10 - M79.622) 04/26/2024 Myalgia of auxiliary muscles, head and neck (ICD-10 - M79.12) 02/15/2024 Pain in right upper arm (ICD-10 - M79.621) 03/30/2024 Postlaminectomy syndrome, not elsewhere classified (ICD-10 - M96.1) 01/31/2024 Facet arthropathy, cervical (ICD-10 - M46.92) 05/04/2024 Cervical radiculopathy (ICD-10 - M54.12) 05/24/2024 Myalgia of auxiliary muscles, head and neck (ICD-10 - M79.12) 06/22/2024 Other spondylosis with radiculopathy, cervical region (ICD-10 - M47.22) 10/05/2024 Myalgia of auxiliary muscles, head and neck (ICD-10 - M79.12) 11/27/2024 Myalgia of auxiliary muscles, head and neck (ICD-10 - M79.12) 08/24/2024 Unspecified abnormalities of gait and mobility (ICD-10 - R26.9) 08/24/2024 Postlaminectomy syndrome, not elsewhere classified (ICD-10 - M96.1) 11/27/2024 Unspecified abnormalities of gait and mobility (ICD-10 - R26.9) 10/05/2024 Unspecified abnormalities of gait and mobility (ICD-10 - R26.9) 06/22/2024 Myalgia of auxiliary muscles, head and neck (ICD-10 - M79.12) 05/24/2024 Postlaminectomy syndrome, not elsewhere classified (ICD-10 [...] the procedure and all questions were answered. 05/04/2024 Arthrodesis status (ICD-10 - Z98.1) 01/31/2024 Paraspinal muscle spasm (ICD-10 - M62.830) 03/30/2024 Myalgia of auxiliary muscles, head and neck (ICD-10 - M79.12) 02/15/2024 Pain in left upper arm (ICD-10 - M79.622) 04/26/2024 Postlaminectomy syndrome, not elsewhere classified (ICD-10 - M96.1) 04/10/2024 Pain in right upper arm (ICD-10 - M79.621) 04/26/2024 Unspecified abnormalities of gait and mobility (ICD-10 - R26.9) 02/15/2024 Loosening of hardware in spine (ICD-10 - T84.498A) 03/30/2024 Unspecified abnormalities of gait and mobility (ICD-10 - R26.9) 05/24/2024 Unspecified abnormalities of gait and mobility (ICD-10 - R26.9) 06/22/2024 Postlaminectomy syndrome, not elsewhere classified (ICD-10 - M96.1) 10/05/2024 Postlaminectomy syndrome, not elsewhere classified (ICD-10 - M96.1) 11/27/2024 Postlaminectomy syndrome, not elsewhere classified (ICD-10 - M96.1) 08/24/2024 Other cervical disc degeneration, unspecified cervical region (ICD-10 - M50.30) 08/24/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 Last UDS and [place] TELEPHONE SERVICE REPRESENTATIVE reviewed today. Patient is advised that best [...] to abide by our urine testing policy. 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 She will plan to follow-up in [place] as per her request in approximately 2 [...] per Dr. Abhishek Canela, Vacular Surgeon in [place] after stent placement in the lower extremities. ROS reviewed I Alissa Mcconnell LPN am scribing for, and in the presence of Rajesh Serna MD. Rajesh Crabtree, personally performed the services described in this documentation, as scribed by Alissa Mcconnell LPN in my presence, and it is both accurate and complete. 04/26/2024 Other Michael Crabtree am scribing for Dr. Mode Cabello. I, [...] in the presence of Rajesh Serna MD. Rajesh Crabtree, personally performed the services described in this documentation, as scribed by Alissa Mcconnell LPN in my presence, and it is both accurate and complete. 05/24/2024 Other Michael Crabtree am scribing for Dr. Mode Cabello. I, Dr. Mode Cabello, personally performed the services described in this documentation, as scribed by Michael Payne, and it is both accurate and complete. Plan Of Treatment Pending Test Test Name Order Date Cervical Spine AP/Lat 2-3 [id number] zzzCT Outside CD 06/20/2024 Schedule Confirmation 03/06/2024 Schedule Confirmation 03/06/2024 Schedule Confirmation 04/25/2024 Schedule Confirmation 04/25/2024 Future Test Test Name Order Date Implant Spinal Cord Stimulator Trial - 6 3650 05/25/2024 Next Appt Details Provider Name:Mode Cabello, 01/31/2025 01:20:00 PM, [address] [facility] [place], [address], Insurance Providers Payer Name Payer Address Payer Phone Subscriber Number Group Number Insured Name Patient Relationship to Insured Coverage Start Date Coverage End Date [place] [address] [place] [phone] [id number] BARRY VAN Self - patient is the insured [place] [address] [place] [phone] [id number] BARRY VAN Self - patient is the insured [place] Medicare [address] [address] [place] [address] [id number] BARRY VAN Self - patient is the insured Medical (General) History Surgical History Surgery Date(Month/Year) appendectomy Breast biopsy section Hernia surgery Hysterectomy Jaw surgeries left ankle surgery Neck surgeries
--- OUTSIDE RECORDS SUMMARY | 2024-12-24 06:40 | XMS_ITS | Patient Health Record ---
Author Organization [facility] [employer] Address [address] [facility] [address] [place] [address] Support Name Relationship Address Phone BARRY VAN Guarantor Unknown [phone] Allergies Allergen (clinical drug ingredient) Drug/Non Drug [...] TWICE A DAY WITH FOOD FOR 30 DAYS; Duration: 30 Active Levothyroxine Sodium 112 MCG TAKE 1 TABLET IN THE MORNING ON AN EMPTY STOMACH ORALLY ONCE A DAY; Duration: 30 Active Ondansetron HCl 4 MG TAKE 1 TABLET BY MO UT EVERY DAY NEEDED FOR 30 DAYS; Duration: 30 Active clonazePAM 1 MG 1 tablet Orally Once a day Not-Taking FLUoxetine HCl 20 MG TAKE 1 CAPSULE BY MOUTH EVERY DAY; Duration: 30 Active Baclofen 10 MG TAKE 1 TABLET BY ANTHONY TH TWICE A DAY NEEDED FOR 30 DAYS Active Gabapentin 300 MG TAKE ONE CAPSULE BY MOUTH 3 TIMES A DAY; Duration: 30 Active oxyCODONE HCl 5 MG 1 tablet as needed Orally One bid Active rOPINIRole HCl 3 MG 1 tablet 1 to 3 hour s before bedtime Orally Once a day Active Furosemide 40 MG TAKE 1 TABLET BY ANTHONY TH EVERY DAY; Duration: 30 Active Pantoprazole Sodium 40 MG TAKE 1 TABLET BY MOUTH EVERY DAY FOR 30 DAYS; Duration: 90 Active Social History Tobacco Use: Social [...] Problem Status W/U Status Risk Notes Problem Hypothyroidism (50356054) Other specified hypothyroidism (E03.8) Active confirmed Problem Chronic pancreatitis (168013554) Other chronic pancreatitis (K86.1) Active confirmed Problem Sciatica (20980428) Lumbago with sciatica, right side (M54.41) Active confirmed Problem Sciatica (25846588) Lumbago with sciatica, left side (M54.42) Active confirmed Problem Anxiety (75194542) Anxiety (F41.9) Active confirmed Problem Posttraumatic stress disorder (80774192) PTSD (post-traumatic stress disorder) (F43.10) Active confirmed Problem Heart failure (38000410) Other congestive heart failure (I50.9) Active confirmed Problem Chronic pain due to injury (306058579) 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) Active confirmed Plan Of [...] Coverage End Date [place]ARE [place], [address] [address] GABI BRIZUELA [phone] [id number] BARRY VAN Self - patient is the insured [employer] [address] [place] [address] [place] [phone] [id number] BARRY VAN Self - patient is the insured Medical (General) History Medical History History ICD Code Hypothyroidism head injury with seizures multiple traumatic injuries from [facility] back surgery pancreatitis cataract pneumonia depression GERD Surgical History Surgery Date(Month/Year) back surgery 2014 Hospitalization History Reason Date(Month/Year) Pneumonia and hand infection. 11/2021
--- OUTSIDE RECORDS SUMMARY | 2024-12-24 06:40 | XMS_ITS | Clinical Summary ---
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
--- OUTSIDE RECORDS SUMMARY | 2024-12-24 06:40 | XMS_ITS | Patient Health Record ---
Author Organization [facility] Address [address] [facility] [address] [place] [address] Care Team Providers Care Process Coordinator Name Role Phone Desiree Gaming MD Primary Care Provider Unavailab Srinivasan Wilcox Unavailable [phone] Reason For Referral No Information Medications Medication [...] 50 MG Tablet Oral 03/23/2017 Active Creon 52856 UNIT Capsule Delayed Release Particles Oral 04/07/2017 Active Creon 12954 UNIT Capsule Delayed Release Particles Oral 02/18/2017 [...] End Date Medicare [place] MC01 [address] [place] [address] [id number] BARRY VAN Self - patient is the insured Medical (General) History Surgical History Surgery Date(Month/Year) Hysterectomy ,Status : Resolved Breast Surgery ,Status : Resolved Gastric Surgery ,Status : Resolved Eye Surgery ,Status : Resolved Foot Surgery ,Status : Resolved Appendectomy ,Status : Resolved Cholecystectomy ,Status : Resolved Cataract Surgery ,Status : Resolved
--- OUTSIDE RECORDS SUMMARY | 2024-12-24 06:40 | XMS_ITS | Patient Health Record ---
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) Active confirmed Problem Wrist joint effusion (795329978) Effusion, right wrist (M25.431) Active confirmed Problem 306476665 Dyslipidemia (E78.5) Active confirmed Problem 44734833 Seizures (R56.9) Active confirmed Problem 57000058 Heart murmur (R01.1) Active confirmed Problem 348069082 Diabetes mellitu s type 2 in nonobese (E11.9) Active confirmed Problem 527719789 GERD without esophagitis (K21.9) Active confirmed Problem 306353552 Hypothyroidism (acquired) (E03.9) Active confirmed Problem 9660891033887 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) Active confirmed Problem 56502489 Depression, unspecified depression type (F32.9) Active confirmed Problem 128130339 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) Active confirmed Problem 509512753 Cataract of left eye, unspecified cataract type (H26.9) Active confirmed Plan Of Treatment Pending Test Test Name Order Date Hemoglobin A1c ([id number]) 11/12/2016 MRI- BRAIN WO CONTRAST (96340)(HEAFH-BRA O) 01/22/2017 XRAY- ABDOMEN-KUB 1V (63917)(HEH-ABDK1 ) 01/21/2017 Insurance Providers Payer Name Payer Address Payer Phone Subscriber Number Group Number Insured Name Patient Relationship to Insured Coverage Start Date Coverage End Date MEDICARE [place] PART B [address] [facility] [place] [id number] Tosha Perry Self - patient is the insured 1 [address] [facility] SUPPLEMENT [id number] [facility], [place] [id number] Tosha Perry Self - patient is the [...]
--- NOTE | 2024-12-24 06:47 | W.ED.CHESTPA ---
HPI - Chest Pain General: Chief Complaint: Chest Pain Stated Complaint: cp, n/v Time Seen by Provider: 12/24/24 06:35 Source: patient and EMS Mode of arrival: EMS Limitations: no limitations History of Present Illness: 69-year-old female who states she has been having chest pains been going on for 2 weeks. She states the pain has been sharp in nature she has also had vomiting over the last 2 days. She rates her pain a 6 out of 10 currently she denies any shortness of breath denies any cough denies any fever. Denies any worse improved factors Associated symptoms: Deny abdominal pain, dyspnea, fever(s), nausea or vomiting Related Data Home Medications ?Medication ?Instructions ?Recorded ?Confirmed fluticasone propionate 50 1 spray intranasal BID PRN 09/27/23 11/04/24 mcg/actuation nasal allergies spray,suspension gabapentin 300 mg capsule 300 mg PO TID 09/27/23 11/04/24 oxycodone 10 mg tablet 10 mg PO Q8H PRN Pain 12/29/23 11/04/24 venlafaxine 75 mg capsule,extended 75 mg PO DAILY 10/24/24 11/04/24 release 24 hr clopidogrel 75 mg tablet 75 mg PO DAILY 11/04/24 11/04/24 promethazine 12.5 mg tablet 12.5 mg PO Q8H PRN Nausea 11/04/24 11/04/24 Previous Rx's ?Medication ?Instructions ?Recorded levothyroxine 112 mcg tablet 112 mcg PO QAM low thyroid #90 tabs 10/15/22 Bone growth stimulator #1 ea 01/22/23 Bone growth stimulator #1 ea 02/05/23 tens unit for cervical #1 ea 12/16/23 albuterol sulfate 90 mcg/actuation 1 puff inhalation Q6H PRN 12/20/23 aerosol inhaler Shortness Of Breath #6.7 grams insulin syringes (disposable) 1 mL #25 ea 05/30/24 methotrexate sodium 25 mg/mL 20 mg (0.8 mL) SUBCUT .Q7days #10 05/30/24 injection solution mL ropinirole 5 mg tablet 5 mg PO BID #270 tabs 10/25/24 baclofen 10 mg tablet 5 mg (1/2 x 10 mg) PO Q12H PRN 11/07/24 Muscle Spasm #30 tabs furosemide 80 mg tablet 40 mg (1/2 x 80 mg) PO DAILY #30 11/07/24 tabs pantoprazole 40 mg tablet,delayed 40 mg PO DAILY #30 tabs 11/07/24 release (Protonix) potassium chloride 20 mEq 20 meq PO DAILY #30 tabs 11/07/24 tablet,extended release sucralfate 1 gram tablet 1 g PO BID 8 weeks #112 tabs 11/07/24 Allergies Allergy/AdvReac Type Severity Reaction Status Date / Time ibuprofen Allergy Unknown ADR-Anxiety Verified 09/23/24 04:24 tizanidine Allergy Unknown Unknown Verified 09/23/24 04:24 acetaminophen Allergy ADR-Anxiety Verified 09/23/24 04:24 amitriptyline Allergy ADR-Agitate Verified 09/23/24 04:24 d diphenhydramine (From Allergy ADR-Agitate Verified 09/23/24 04:24 Benadryl) d morphine Allergy ADR-Halluci Verified 09/23/24 04:24 nating prochlorperazine (From Allergy Unknown Verified 09/23/24 04:24 Compazine) leflunomide AdvReac Intermediate GI adverse Verified 09/23/24 04:24 reactions sulfasalazine AdvReac Intermediate ADR-Nausea Verified 09/23/24 04:24 and acid reflux Review of Systems Const: Denies: fever(s), chills, body aches or change in appetite ENMT: Denies: throat pain or dental pain Card: Reports: chest pain Resp: Denies: dyspnea GI: Denies: abdominal pain, nausea, vomiting or diarrhea Musc: Denies: neck pain or back pain Skin/Breast: Denies: rash Neuro: Denies: headache(s) PFSH ED PFSH: Medical History Pneumonia DVT (deep venous thrombosis) Acute GI bleeding History of deep vein thrombosis GERD (gastroesophageal reflux disease) Pre-operative clearance Acute anemia Hematoma complicating a procedure Cervical adenopathy GI bleed Osteoarthritis, shoulder Cervical spondylosis with myelopathy GERD with esophagitis Allergic rhinitis due to allergen RLS (restless legs syndrome) Substance or medication-induced sleep disorder, insomnia type Anxiety and depression High risk medication use Seropositive rheumatoid arthritis of multiple sites Extrapyramidal and movement disorder CKD (chronic kidney disease) stage 3, GFR 30-59 ml/min Lung nodule, solitary Prediabetes Hyperlipidemia Iron deficiency anemia Hypothyroidism Surgical History S/P insertion of IVC (inferior vena caval) filter Status post cervical spinal fusion History of cholecystectomy History of appendectomy History of delivery History of hysterectomy with bilateral oophorectomy History of ankle surgery left Previous back surgery Social History Smoking and tobacco/nicotine status: former use of tobacco/nicotine Quit status (tobacco/nicotine): has quit using Year quit tobacco: 2009 Former quit date comment: Smoked for 9 months Alcohol intake: current Alcohol intake frequency: holidays/special occasions only Substance/Drug Use: never Physical Exam Const: COMMON NORMALS: patient oriented x3 HENMT: COMMON NORMALS: normocephalic and atraumatic HEAD & SCALP: normocephalic and atraumatic Eye: COMMON NORMALS: Equal, round and reactive pupils present and EOMs intact bilaterally PUPIL: Yes Equal, round and reactive pupils present Neck/C-Spine: COMMON NORMALS: full ROM and supple Chest: COMMONS NORMALS: normal inspection of the chest and normal palpation of entire chest wall Resp: COMMON NORMALS: normal respiratory effort, No retractions, No use of accessory muscles and clear to auscultation bilaterally AUSCULTATION: clear to auscultation bilaterally Cardio: COMMON NORMALS: regular rate, regular rhythm and No murmurs present (Cardio) RATE: regular rate RHYTHM: regular rhythm GI: COMMON NORMALS: Normal to inspection, nondistended, normoactive bowel sounds present, Soft to palpation, non-tender and no masses PALPATION: Yes Soft to palpation Extremity: COMMON NORMALS: normal to inspection and full ROM Neuro: COMMON NORMALS: patient oriented x3, moves all extremities and no focal motor deficits Psych: COMMON NORMALS: mental status grossly normal, Normal thought process present and cooperative THOUGHT PROCESS: Normal thought process present Skin: COMMON NORMALS: no rashes or lesions noted and no wounds GENERAL SKIN EXAM: no rashes or lesions noted Course Vital Signs: Vital signs: Vital Signs Temperature 98.4 F 12/24/24 07:02 Pulse Rate 53 L 12/24/24 08:01 Respiratory Rate 14 12/24/24 08:01 Blood Pressure 128/65 12/24/24 08:01 Pulse Oximetry 99 12/24/24 08:01 Oxygen Delivery Me thod Room Air 12/24/24 08:01 MDM - Chest Pain Medical Decision Making Patient presents here with chest pain 2-hour troponin had a positive delta she had some bradycardia her heart rate now 46 blood pressures been normal did give her Lovenox spoke to hospitalist along with openstack developer and will admit. Medical Records I reviewed the patient's medical records. Lab Data I reviewed the patient's lab results. 12/24/24 06:58 12/24/24 06:58 Radiology Impressions Chest X-Ray 12/24/24 06:35 IMPRESSION: No acute findings. Abdomen/Pelvis CT 12/24/24 06:40 IMPRESSION: No acute subdiaphragmatic pathology. COMMENTS: For patients with an IVC filter, recommend assessment for a management plan for the patient's IVC filter. If there is no established management plan, recommend referral to an interventional clinician on a nonemergent basis for evaluation. Laboratory Results WBC 4.28 10^3/uL (3.29-11.43) 12/24/24 06:58 RBC 4.90 10^6/uL (3.85-5.65) 12/24/24 06:58 Hgb 13.60 g/dL (11.27-16.99) 12/24/24 06:58 Hct 42.8 % (36-47) 12/24/24 06:58 MCV 87.3 fl (85-98) 12/24/24 06:58 MCH 27.8 pg (27-33) 12/24/24 06:58 MCHC 31.8 g/dL (30-55) 12/24/24 06:58 RDW 17.1 % (12.1-15.1) H 12/24/24 06:58 Plt Count 348 10^3/cmm (157-399) 12/24/24 06:58 MPV 9.1 fL (7.4-10.4) 12/24/24 06:58 Neut % (Auto) 29.9 % 12/24/24 06:58 Lymph % (Auto) 47.9 % 12/24/24 06:58 Edmunds % (Auto) 15.0 % 12/24/24 06:58 Eos % (Auto) 5.6 % 12/24/24 06:58 Baso % (Auto) 1.6 % 12/24/24 06:58 Neut # (Auto) 1.28 10^3/uL (1.8-7.7) L 12/24/24 06:58 Lymph # (Auto) 2.1 10^3/uL (0.8-4.8) 12/24/24 06:58 Edmunds # (Auto) 0.6 10^3/uL (0.2-0.9) 12/24/24 06:58 Eos # (Auto) 0.2 10^3/uL (0.0-0.8) 12/24/24 06:58 Baso # (Auto) 0.1 10^3/uL (0.0-0.1) 12/24/24 06:58 Nucleated RBC % (auto) 0 % 12/24/24 06:58 Nucleated RBCs # 0.0 /100WBC 12/24/24 06:58 PT 12.60 SECONDS (12.1-14.9) 12/24/24 06:58 INR 0.88 (0.8-1.2) 12/24/24 06:58 Sodium 136 mmol/L (136-145) 12/24/24 06:58 Potassium 3.6 mmol/L (3.5-5.1) 12/24/24 06:58 Chloride 99 mmol/L (98-107) 12/24/24 06:58 Carbon Dioxide 23 mmol/L (22-29) 12/24/24 06:58 Anion Gap 17.6 (5-19) 12/24/24 06:58 BUN 19 mg/dL (8-23) 12/24/24 06:58 Creatinine 1.2 mg/dL (0.5-0.9) H 12/24/24 06:58 GFR Calculation 44.4 mL/min (90-130) L 12/24/24 06:58 Glucose 100 mg/dL (65-115) 12/24/24 06:58 Calculated Osmolality 284 mOsm/kg (285-295) L 12/24/24 06:58 Calcium 10.2 mg/dL (8.5-10.5) 12/24/24 06:58 Total Bilirubin 0.3 mg/dL (0.15-1.2) 12/24/24 06:58 AST 31 U/L (0-32) 12/24/24 06:58 ALT 14 U/L (0-33) 12/24/24 06:58 Alkaline Phosphatase 192 U/L (35-105) H 12/24/24 06:58 Troponin T Baseline 17 ng/L (0-10) H 12/24/24 06:58 Troponin T 120 Minute 43.45 ng/L (0-10) H 12/24/24 09:09 Delta Troponin T 26.45 ABS# (0-10) H* 12/24/24 09:09 Total Protein 9.5 g/dL (6.6-8.7) H 12/24/24 06:58 Albumin 4.9 g/dL (3.5-5.2) 12/24/24 06:58 Globulin 4.6 g/dL (1.3-4.6) 12/24/24 06:58 Lipase 26 U/L (13-60) 12/24/24 06:58 All radiology interpretation(s) finalized by discharge EKG Data EKG 1: I personally reviewed and interpreted this EKG as follows: EKG interpretation date: 12/24/24 EKG interpretation time: 06:39 Interpretation: sinus paige hr [address] elevation qrs 88 qtc 418 EKG 2: I personally reviewed and interpreted this EKG as follows: EKG interpretation date: 12/24/24 EKG interpretation time: 08:51 Interpretation: sinus paige hr [address] elevation qrs 90 qtc 415 Critical Care Time Critical Care Time: Critical Care Time: Yes Total Critical Care Time: 35 Attestation: The high probability of a clinically significant, sudden or life threatening deterioration of the patient's cv system(s) required my full and direct attention, intervention and personal management. The critical care time is as shown. This time is in addition to time spent performing any reported procedures but includes the following: [x] Data and vital sign review and interpretation [x] Patient assessment, examination and intervention [x] Documentation [x] Medication orders and management Discharge Plan Discharge Patient Disposition: Admitted As Inpatient Clinical Impression: Non-ST elevation NH (NSTEMI), Bradycardia Condition: Stable Coding Level of Care Code ED Rn Cardiac Rehab for tiffanie Sweet
[2024-12-24 07:02] LABS: Hematocrit 42.8 % (36-47); Hemoglobin 13.60 g/dL (11.27-16.99); Mean Corpuscular HGB Conc 31.8 g/dL (30-55); Mean Corpuscular Hemoglobin 27.8 pg (27-33); Mean Corpuscular Volume 87.3 fl (85-98); Nucleated Red Blood Cells % 0 %; Platelet Count 348 10^3/cmm (157-399); Red Blood Count 4.90 10^6/uL (3.85-5.65); White Blood Count 4.28 10^3/uL (3.29-11.43)
[2024-12-24] MEDS: HYDROmorphone 0.5 MG/0.5 ML INJ IVP ×4 (07:05→17:53)
[2024-12-24] MEDS: ondansetron 2 mg/ML SDV 2 mL 4 MG IVP (07:05)
[2024-12-24 07:14] LABS: INR 0.88 (0.8-1.2); Prothrombin Time 12.60 SECONDS (12.1-14.9)
[2024-12-24 07:19] LABS: Troponin(5th) Baseline 17 ng/L (0-10)
[2024-12-24 07:27] LABS: Alanine Aminotransferase 14 U/L (0-33); Albumin Level 4.9 g/dL (3.5-5.2); Alkaline Phosphatase 192 U/L (35-105); Anion Gap 17.6 (5-19); Aspartate Amino Transferase 31 U/L (0-32); Blood Urea Nitrogen 19 mg/dL (8-23); Calcium 10.2 mg/dL (8.5-10.5); Carbon Dioxide 23 mmol/L (22-29); Chloride 99 mmol/L (98-107); Creatinine Clr Calc Pharmacy 41.6820; Globulin 4.6 g/dL (1.3-4.6); Glucose 100 mg/dL (65-115); Lipase 26 U/L (13-60); Osmolality Calculated 284 mOsm/kg (285-295); Potassium 3.6 mmol/L (3.5-5.1); Sodium 136 mmol/L (136-145); Total Protein 9.5 g/dL (6.6-8.7)
[2024-12-24] MEDS: iohexol 350 mg/mL 500 mL Btl (per mL) IV (07:43)
--- NOTE | 2024-12-24 08:35 | ECG_ITS ---
[facility]: 2024-[facility]24 Pat Name: Tosha Perry Department: Room: Gender: Female Cook Ship: : 1955 Requested By: Coral Oconnor Order Number: [id number] Reading MD: Clovis Martin M.D. Measurements Intervals [place] Rate: 37 P: 66 DE: 107 QRS: 39 QRSD: 90 T: 44 QT: 502 QTc: 395 Interpretive Statements SINUS BRADYCARDIA WITH SHORT DE INTERVAL CRITICAL TEST RESULT Compared to ECG 12/24/2024 06:39:29 No significant changes Electronically Signed On 12-24-2024 20:28:06 CDT by Clovis Martin M.D. [email or web address]
[2024-12-24 09:34] LABS: Troponin 5 2HR 43.45 ng/L (0-10)
[2024-12-24 09:44] LABS: Troponin 5 2HR Delta 26.45 ABS# (0-10)
--- NOTE | 2024-12-24 10:20 | USCV_ITS ---
Tosha Perry Age: 69 Gender: F : 1955 Exam Date: 12/24/2024 14:37 Ordering Phys: Bernard Ray MD Technologist: Rafat Powell Exam Location: [facility] [place] Indication: sob BP: 113 / 58 HR: 47 Rhythm: Sinus Technical Quality: Adequate MEASUREMENTS (Male / Female) Normal Values 2D ECHO LV Diastolic Diameter PLAX 4.6 cm 4.2 - 5.9 / 3.9 - 5.3 cm IVS Diastolic Thickness 1.0 cm 0.6 - 1.0 / 0.6 - 0.9 cm IVS Systolic Thickness 1.2 cm LVPW Diastolic Thickness 0.8 cm 0.6 - 1.0 / 0.6 - 0.9 cm LVPW Systolic Thickness 1.4 cm LVOT Diameter 2.0 cm LV Ejection Fraction 2D Teich 70.7 % LV Ejection Fraction MOD 4C 70.8 % LV Ejection Fraction MOD 2C 65.4 % LV Ejection Fraction 2C AL 65.8 % LA Diameter 3.4 cm RA Systolic Volume 4C AL 40.2 ml RA Systolic Volume 4C MOD 40.6 ml LA Sys Volume AL 57.0 cm cubed LA Sys Volume Index AL 32.7 cm cubed/m squared Aorta at Sinotubular Diameter 2.2 cm IVC Diameter 1.8 cm M-MODE LA Ao Ratio MM 1.5 AV Cusp Separation MM 1.8 cm DOPPLER AV Peak Velocity 191.0 cm/s LVOT Peak Velocity 110.0 cm/s AV Area Cont Eq vti 2.0 cm squared AV Area Cont Eq pk 1.8 cm squared MV Peak Velocity 140.0 cm/s MV Area PHT 4.2 cm squared Mitral E to A Ratio 0.9 TR Peak Velocity 427.0 cm/s TR Peak Gradient 72.9 mmHg TR Mean Velocity 342.0 cm/s TR Mean Gradient 49.8 mmHg TR Velocity Time Integral 128.7 cm PV Peak Velocity 101.3 cm/s RV Ejection Time 0.4 s FINDINGS Left Ventricle Normal left ventricular size, systolic function and wall thickness, with no regional wall motion abnormalities. Left ventricular ejection fraction is estimated at 70%.Grade II/IV diastolic dysfunction, moderately elevated filling pressures. Right Ventricle Normal right ventricular size and systolic function. Moderate pulmonary hypertension, RVSP 54mmHg. Right Atrium Normal right atrial size. Left Atrium Normal left atrial size. Mitral Valve Trace mitral valve regurgitation. No mitral valve stenosis. Aortic Valve No aortic valve stenosis. No aortic valve regurgitation. Tricuspid Valve Trace tricuspid valve regurgitation. Pulmonic Valve No pulmonary valve stenosis. No pulmonary valve regurgitation. Pericardium No pericardial effusion. Aorta Normal size aortic root and proximal ascending aorta. IVC Normal inferior vena cava. CONCLUSIONS 1. Normal left ventricular size, systolic function and wall thickness, with no regional wall motion abnormalities. Left ventricular ejection fraction is estimated at 70%. 2. Grade II/IV diastolic dysfunction, moderately elevated filling pressures. 3. Moderate pulmonary hypertension. Clovis Martin MD, FACC (Electronically Signed) Final Date: 24 December 2024 16:24 S
--- NOTE | 2024-12-24 10:20 | USR_ITS ---
PROCEDURE INFORMATION: Exam: US Duplex Lower Extremity Veins, Bilateral Exam date and time: 12/24/2024 11:37 AM Age: 69 years old Clinical indication: Pain; Leg, upper and leg, lower; Bilateral TECHNIQUE: Imaging protocol: Real-time duplex ultrasound of the bilateral extremities with 2-D ayala scale, color Doppler flow and spectral waveform analysis including responses to compression and other maneuvers (when performed) with image documentation. Complete exam focused on the lower extremity veins. COMPARISON: US ROR venous duplex [facility] 09/22/2023 11:24 AM FINDINGS: Right deep veins: Unremarkable. The common femoral, femoral, proximal profunda femoral, popliteal, posterior tibial and peroneal veins are patent without thrombus. Normal Doppler waveforms. Normal compressibility and/or augmentation response. Left deep veins: Unremarkable. The common femoral, femoral, proximal profunda femoral, popliteal, posterior tibial and peroneal veins are patent without thrombus. Normal Doppler waveforms. Normal compressibility and/or augmentation response. Superficial veins: Greater saphenous veins at the saphenofemoral junctions are patent bilaterally without thrombus. Soft tissues: Unremarkable. US/CV venous duplex [facility] [id number] IMPRESSION: No sonographic evidence of deep venous thrombosis.
--- NOTE | 2024-12-24 10:24 | PC.NURSE ---
verbal order given by Dr. Ray to hold enoxaparin, provider is going to order alternate medication.
--- NOTE | 2024-12-24 10:57 | PC.NURSE ---
Patient transferred from ED to CSU via a bed at 1057.
--- NOTE | 2024-12-24 11:04 | PM.HP ---
Providers/Chief Complaint Admitting Physician: Bernard Ray MD Primary Care Provider: Diana Garcia Chief Complaint: cp, n/v History of Present Illness Tosha Perry is a 69 year old female history of hospitalization for sepsis secondary pneumonia, history of bradycardia, history of CAD, history of acute anemia, history of GI bleed, history of DVT, history of requiring IVC filter, history of CKD, history of left lower extremity peripheral vascular disease status post stenting currently on Plavix, who presents to [facility] due to chest pain. Patient reports that for the last 2 weeks she has been having intermittent chest pain, with shortness of breath with nausea, vomiting, no lightheadedness, no dizziness, no diaphoresis. She tells me that the frequency and intensity of the chest pain persist, she is actively having chest pain, in the anterior chest, nonradiating, denies any hemoptysis, does have calf pain, does have a IVC filter in place, she was taken off Eliquis she tells me sometime ago due to her IVC filter and she did not need the blood thinner anymore according to her physician, patient reports to me that she has a history of GI bleeds, history of gastric ulcer requiring cauterization, last back in June, she does report about a week ago she had an episode of hematemesis, it is resolved since then I was upfront and honest with patient that given her NSTEMI her persistent chest pain, she is on Plavix she will likely need to be placed on full dose anticoagulant therapy, aspirin, and her Plavix. Given her history of GI bleeds or complaints of her hematemesis, this does carry significant risks of GI bleeds, and morbidity and mortality associated. However were stuck between a rock and a hard place, as she is having active chest pain, she has elevated troponins, the standard of care would be to put her on aspirin, Plavix, anticoagulant therapy, and monitor her chest pain. What I will do is put her on a heparin drip so we can keep an eye on her PTT closer, place her on IV Protonix, Carafate, monitor hemoglobin every 6 hours. Monitor chest pain, monitor for GI bleed. If she does have a episode of GI bleed, discussed morbidity mortality associated, she voiced understanding, all questions answered, we will then have to have general surgery to potentially do an urgent EGD to potentially cauterize the bleeding or potentially transfer to tertiary level center. Discussed morbidity and mortality, discussed all options, shared decision making, after discussing risks and benefits of all options, she voiced understanding, all questions answered, agreed to proceed with plan. Will wait for cardiology's further recommendations. Given her persistent chest pain I would put her also on a nitroglycerin drip Review of Systems Const: Denies: fever(s) or chills Card: Reports: chest pain Resp: Reports: dyspnea Medications/Allergies Home Medications ?Medication ?Instructions ?Recorded ?Confirmed ?Last Taken ?Type levothyroxine 112 mcg tablet 112 mcg PO QAM low thyroid #90 tabs 10/15/22 11/04/24 11/03/24 Rx Bone growth stimulator #1 ea 01/22/23 11/04/24 Unknown Rx Bone growth stimulator #1 ea 02/05/23 11/04/24 Unknown Rx fluticasone propionate 50 1 spray intranasal BID PRN 09/27/23 11/04/24 12/29/23 History mcg/actuation nasal allergies spray,suspension gabapentin 300 mg capsule 300 mg PO TID 09/27/23 11/04/24 11/03/24 History tens unit for cervical #1 ea 12/16/23 11/04/24 Unknown Rx albuterol sulfate 90 mcg/actuation 1 puff inhalation Q6H PRN 12/20/23 11/04/24 Unknown Rx aerosol inhaler Shortness Of Breath #6.7 grams oxycodone 10 mg tablet 10 mg PO Q8H PRN Pain 12/29/23 11/04/24 11/03/24 History insulin syringes (disposable) 1 mL #25 ea 05/30/24 11/04/24 Unknown Rx methotrexate sodium 25 mg/mL 20 mg (0.8 mL) SUBCUT .Q7days #10 05/30/24 11/04/24 10/30/24 Rx injection solution mL venlafaxine 75 mg capsule,extended 75 mg PO DAILY 10/24/24 11/04/24 11/03/24 History release 24 hr ropinirole 5 mg tablet 5 mg PO BID #270 tabs 10/25/24 11/04/24 11/03/24 Rx clopidogrel 75 mg tablet 75 mg PO DAILY 11/04/24 11/04/24 11/03/24 History promethazine 12.5 mg tablet 12.5 mg PO Q8H PRN Nausea 11/04/24 11/04/24 Unknown History baclofen 10 mg tablet 5 mg (1/2 x 10 mg) PO Q12H PRN 11/07/24 11/04/24 10/21/24 Rx Muscle Spasm #30 tabs furosemide 80 mg tablet 40 mg (1/2 x 80 mg) PO DAILY #30 11/07/24 11/04/24 11/03/24 Rx tabs pantoprazole 40 mg tablet,delayed 40 mg PO DAILY #30 tabs 11/07/24 Unknown Rx release (Protonix) potassium chloride 20 mEq 20 meq PO DAILY #30 tabs 11/07/24 11/04/24 11/03/24 Rx tablet,extended release sucralfate 1 gram tablet 1 g PO BID 8 weeks #112 tabs 11/07/24 Unknown Rx Allergies Allergy/AdvReac Type Severity Reaction Status Date / Time ibuprofen Allergy Unknown ADR-Anxiety Verified 09/23/24 04:24 tizanidine Allergy Unknown Unknown Verified 09/23/24 04:24 acetaminophen Allergy ADR-Anxiety Verified 09/23/24 04:24 amitriptyline Allergy ADR-Agitate Verified 09/23/24 04:24 d diphenhydramine (From Allergy ADR-Agitate Verified 09/23/24 04:24 Benadryl) d morphine Allergy ADR-Halluci Verified 09/23/24 04:24 nating prochlorperazine (From Allergy Unknown Verified 09/23/24 04:24 Compazine) leflunomide AdvReac Intermediate GI adverse Verified 09/23/24 04:24 reactions sulfasalazine AdvReac Intermediate ADR-Nausea Verified 09/23/24 04:24 and acid reflux PFSH Acute PFSH: Medical History Pneumonia DVT (deep venous thrombosis) Acute GI bleeding History of deep vein thrombosis GERD (gastroesophageal reflux disease) Pre-operative clearance Acute anemia Hematoma complicating a procedure Cervical adenopathy GI bleed Osteoarthritis, shoulder Cervical spondylosis with myelopathy GERD with esophagitis Allergic rhinitis due to allergen RLS (restless legs syndrome) Substance or medication-induced sleep disorder, insomnia type Anxiety and depression High risk medication use Seropositive rheumatoid arthritis of multiple sites Extrapyramidal and movement disorder CKD (chronic kidney disease) stage 3, GFR 30-59 ml/min Lung nodule, solitary Prediabetes Hyperlipidemia Iron deficiency anemia Hypothyroidism Surgical History S/P insertion of IVC (inferior vena caval) filter Status post cervical spinal fusion History of cholecystectomy History of appendectomy History of delivery History of hysterectomy with bilateral oophorectomy History of ankle surgery left Previous back surgery Social History Smoking and tobacco/nicotine status: former use of tobacco/nicotine Quit status (tobacco/nicotine): has quit using Year quit tobacco: 2009 Former quit date comment: Smoked for 9 months Alcohol intake: current Alcohol intake frequency: holidays/special occasions only Substance/Drug Use: never Vitals/I&O/Wt Last Vital Signs Temp 98.4 F 12/24/24 07:02 Pulse 53 L 12/24/24 08:01 Resp 14 12/24/24 08:01 BP 128/65 12/24/24 08:01 Pulse Ox 99 12/24/24 08:01 O2 Del Method Room Air 12/24/24 08:01 12/23/24 12/24/24 12/24/24 22:59 06:59 14:59 Intake Total 0 / 0 Balance 0 / 0 Weight last 48 hrs Weight 65.816 kg Physical Exam Const: COMMON NORMALS: no acute distress and patient oriented x3 Eye: COMMON NORMALS: Equal, round and reactive pupils present and EOMs intact bilaterally Resp: COMMON NORMALS: normal respiratory effort, No retractions, No use of accessory muscles and clear to auscultation bilaterally AUSCULTATION: clear to auscultation bilaterally Cardio: COMMON NORMALS: no JVD, regular rate, regular rhythm, S1 normal heart sound present and S2 normal heart sound present RATE: regular rate RHYTHM: regular rhythm HEART SOUNDS: S1 normal heart sound present and S2 normal heart sound present GI: COMMON NORMALS: Normal to inspection, nondistended, normoactive bowel sounds present, Soft to palpation and non-tender Extremity: COMMON NORMALS: no calf tenderness and no pedal edema Neuro: COMMON NORMALS: patient oriented x3, CN's II-XII intact bilaterally and moves all extremities Psych: COMMON NORMALS: mental status grossly normal Data 12/24/24 06:58 12/24/24 06:58 A&P Assessment and plan 1. Unstable angina: 2. Bradycardia: 3. Non-ST elevation SC (NSTEMI): Plan: Unstable angina - NSTEMI -With bradycardia - Patient has a history of GI bleed, reported hematemesis a week ago Plan - Nitroglycerin drip - Heparin drip - Aspirin - Statin - Hold beta-kavin - Plavix - Cardiac echo - Monitor hemoglobin every 6 hours - Protonix - Carafate - Serial EKGs, serial troponins, telemetry monitoring - Dilaudid for pain control - Full code - Heparin drip for DVT prophylaxis PDMP PDMP Reviewed: Not Reviewed Attestations Medical Necessity Statement*: Patient requires hospitalization, inpatient, greater than 2 midnights, for unstable angina, NSTEMI Diagnoses Unstable angina I20.0 Bradycardia R00.1 Non-ST elevation SC (NSTEMI) I21.4
--- NOTE | 2024-12-24 11:10 | PC.NURSE ---
Provider is updated that patient is having 9/10 chest pain. Provider ordered EKG,
--- NOTE | 2024-12-24 11:12 | ECG_ITS ---
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 Measurements Intervals [place] Rate: 41 P: 54 DC: 174 QRS: 16 QRSD: 101 T: 21 QT: 493 QTc: 411 Interpretive Statements SINUS BRADYCARDIA LOW QRS VOLTAGE IN PRECORDIAL LEADS [QRS DEFLECTION < 1.0 mV IN CHEST LEADS] Compared to ECG 12/24/2024 08:51:15 Low QRS voltage now present Short DC interval no longer present Electronically Signed On 12-24-2024 20:14:55 CDT by Clovis Martin M.D. [email or web address]
[2024-12-24] MEDS: heparin 5,000 unit/mL INJ 1 mL IVP (11:15)
[2024-12-24] MEDS: heparin drip 25,000 UNIT/500 ML PREMIX 23.69 UNIT IV (11:16)
[2024-12-24] MEDS: pantoprazole 40 mg SDV IVP ×2 (11:30→22:48)
[2024-12-24] MEDS: sucralfate 1 gm/10 mL Oral Liq UDC PO ×3 (11:30→22:48)
--- NOTE | 2024-12-24 11:47 | PM.CONSULT ---
Providers/Reason For Consult Consulting Physician/Specialty*: Clovis Martin MD Reason for Consult*: Chest pain Requesting Physician: Bernard Ray MD Attending Physician: Benrard Ray MD Primary Care Provider: Diana Garcia History of Present Illness History of Present Illness Tosha Perry is a 69 year old female with a history of DVT, GI bleed, iron deficient anemia, IVC filter placement, sinus bradycardia, diastolic chf, here for intermittent chest pressure with associated nausea and vomiting for 2 weeks with mildly elevated troponins. Review of Systems Card: Reports: chest pain; Denies: swelling of feet/ankles or lightheadedness Medications/Allergies Home Medications ?Medication ?Instructions ?Recorded ?Confirmed ?Last Taken ?Type levothyroxine 112 mcg tablet 112 mcg PO QAM low thyroid #90 tabs 10/15/22 12/24/24 11/03/24 Rx Bone growth stimulator #1 ea 01/22/23 12/24/24 Unknown Rx Bone growth stimulator #1 ea 02/05/23 12/24/24 Unknown Rx fluticasone propionate 50 1 spray intranasal BID PRN 09/27/23 12/24/24 12/23/24 History mcg/actuation nasal allergies spray,suspension gabapentin 300 mg capsule 300 mg PO TID 09/27/23 12/24/24 11/03/24 History tens unit for cervical #1 ea 12/16/23 12/24/24 Unknown Rx albuterol sulfate 90 mcg/actuation 1 puff inhalation Q6H PRN 12/20/23 12/24/24 Unknown Rx aerosol inhaler Shortness Of Breath #6.7 grams oxycodone 10 mg tablet 10 mg PO Q8H PRN Pain 12/29/23 12/24/24 12/23/24 History insulin syringes (disposable) 1 mL #25 ea 05/30/24 12/24/24 Unknown Rx methotrexate sodium 25 mg/mL 20 mg (0.8 mL) SUBCUT .Q7days #10 05/30/24 12/24/24 10/30/24 Rx injection solution mL venlafaxine 75 mg capsule,extended 75 mg PO DAILY 10/24/24 12/24/24 12/23/24 History release 24 hr ropinirole 5 mg tablet 5 mg PO BID #270 tabs 10/25/24 12/24/24 12/23/24 Rx clopidogrel 75 mg tablet 75 mg PO DAILY 11/04/24 12/24/24 12/23/24 History promethazine 12.5 mg tablet 12.5 mg PO Q8H PRN Nausea 11/04/24 12/24/24 Unknown History baclofen 10 mg tablet 5 mg (1/2 x 10 mg) PO Q12H PRN 11/07/24 12/24/24 12/23/24 Rx Muscle Spasm #30 tabs furosemide 80 mg tablet 40 mg (1/2 x 80 mg) PO DAILY #30 11/07/24 12/24/24 12/23/24 Rx tabs pantoprazole 40 mg tablet,delayed 40 mg PO DAILY #30 tabs 11/07/24 12/24/24 12/23/24 Rx release (Protonix) potassium chloride 20 mEq 20 meq PO DAILY #30 tabs 11/07/24 12/24/24 12/23/24 Rx tablet,extended release sucralfate 1 gram tablet 1 g PO BID 8 weeks #112 tabs 11/07/24 12/24/24 Unknown Rx furosemide 80 mg tablet 80 mg PO DAILY 12/24/24 12/24/24 12/23/24 History ramelteon 8 mg tablet 8 mg PO BEDTIME 12/24/24 12/24/24 12/23/24 History Allergies Allergy/AdvReac Type Severity Reaction Status Date / Time ibuprofen Allergy Unknown ADR-Anxiety Verified 09/23/24 04:24 tizanidine Allergy Unknown Unknown Verified 09/23/24 04:24 acetaminophen Allergy ADR-Anxiety Verified 09/23/24 04:24 amitriptyline Allergy ADR-Agitate Verified 09/23/24 04:24 d diphenhydramine (From Allergy ADR-Agitate Verified 09/23/24 04:24 Benadryl) d morphine Allergy ADR-Halluci Verified 09/23/24 04:24 nating prochlorperazine (From Allergy Unknown Verified 09/23/24 04:24 Compazine) leflunomide AdvReac Intermediate GI adverse Verified 09/23/24 04:24 reactions sulfasalazine AdvReac Intermediate ADR-Nausea Verified 09/23/24 04:24 and acid reflux Current Medications Generic Name Dose Route Start Last Admin Trade Name Freq PRN Reason Stop Dose Admin Aspirin 81 mg 12/24/24 10:56 12/24/24 11:30 Aspirin 81 Mg Ec Tablet PO 81 mg DAILY KIM Administration Clopidogrel Bisulfate 75 mg 12/24/24 10:56 12/24/24 11:30 Clopidogrel 75 Mg Tablet PO 75 mg DAILY KIM Administration Hydromorphone HCl 0.5 mg 12/24/24 11:01 12/24/24 11:29 Hydromorphone 0.5 Mg/0.5 Ml Inj IVP 0.5 mg Q4H PRN Administration PAIN Heparin Sodium/Sodium Chloride 25,000 unit in 500 mls @ 0 mls/hr 12/24/24 10:56 12/24/24 11:16 Heparin Drip IV 18 unit/kg/hr CONT KIM 23.69 mls/hr Protocol Administration Per Protocol Pantoprazole Sodium 40 mg 12/24/24 10:56 12/24/24 11:30 Pantoprazole 40 Mg Sdv IVP 40 mg Q12H KIM Administration Sucralfate 1 gm 12/24/24 10:56 12/24/24 11:30 Sucralfate 1 Gm/10 Ml Oral Liq Udc PO 1 gm Q6H KIM Administration PFSH Acute PFSH: Medical History (Updated 12/24/24 @ 11:07 by Bernard Ray MD) Pneumonia DVT (deep venous thrombosis) Acute GI bleeding History of deep vein thrombosis GERD (gastroesophageal reflux disease) Pre-operative clearance Acute anemia Hematoma complicating a procedure Cervical adenopathy GI bleed Osteoarthritis, shoulder Cervical spondylosis with myelopathy GERD with esophagitis Allergic rhinitis due to allergen RLS (restless legs syndrome) Substance or medication-induced sleep disorder, insomnia type Anxiety and depression High risk medication use Seropositive rheumatoid arthritis of multiple sites Extrapyramidal and movement disorder CKD (chronic kidney disease) stage 3, GFR 30-59 ml/min Lung nodule, solitary Prediabetes Hyperlipidemia Iron deficiency anemia Hypothyroidism Surgical History S/P insertion of IVC (inferior vena caval) filter Status post cervical spinal fusion History of cholecystectomy History of appendectomy History of delivery History of hysterectomy with bilateral oophorectomy History of ankle surgery left Previous back surgery Social History Smoking and tobacco/nicotine status: former use of tobacco/nicotine Quit status (tobacco/nicotine): has quit using Year quit tobacco: 2009 Former quit date comment: Smoked for 9 months Alcohol intake: current Alcohol intake frequency: holidays/special occasions only Substance/Drug Use: never Vitals/I&O/Wt Last Vital Signs Temp 98.4 F 12/24/24 07:02 Pulse 38 L 12/24/24 10:50 Resp 17 12/24/24 09:00 BP 127/59 12/24/24 10:50 Pulse Ox 99 12/24/24 10:50 O2 Del Method Room Air 12/24/24 08:01 12/23/24 12/24/24 12/24/24 22:59 06:59 14:59 Intake Total 0 / 0 Balance 0 / 0 Weight last 48 hrs Weight 145 lb 1.6 oz Physical Exam Narrative: General: In no acute distress Neck: No jugular venous distention or carotid bruits Heart: Normal S1 and S2 with mild bradycardia Lungs: Normal respiratory effort with no use of intercostal muscles, clear lungs sounds to auscultation Extremities: No lower extremity edema Neuro: Alert and oriented x 3 Data 12/24/24 06:58 12/24/24 06:58 Other data: echo 10/2024: Normal left ventricular size and systolic function, EF 60%mild left ventricular hypertrophy. No regional wall motion abnormalities. Grade III/IV diastolic dysfunction (restrictive filling pattern), severely elevated filling pressures. Mildly increased left atrial size. Thickened mitral valve. Mild mitral annular calcification. Thickened aortic valve. Mild tricuspid valve regurgitation. Estimated pulmonary artery peak systolic pressure 33 mmHg. There is no pericardial effusion. There are no intracardiac masses. No similar previous studies are available for comparison A&P Assessment and plan 1. Bradycardia: possibly symptomatic sinus paige May need pacemaker eventually 2. Chest pain: c/w angina 3. Non-ST elevation NE (NSTEMI): no ST - T changes on EKG pain free on IV nitro now 4. ZAHRA (acute kidney injury): on high dose diuretic for chornic HFnEF Appears euvolemic 5. Diastolic congestive heart failure: compensated Plan: - hold lasix - give 1L NS at 75 cc/hour to prep for LHC - continue plavix 75mg daily - start atorvastatin 40mg qhs - start ASA 81mg daily - change IV heparin to SC heparin due to difficult blood draws - diligent monitoring of heart rate when on IV nitro in setting of known sinus bradycardia with HRs intermittently in the 40s - will schedule C. We will see if can it done tomorrow. PDMP PDMP Reviewed: Not Reviewed Coding Level of Care Code 92977 Diagnoses Bradycardia R00.1 Chest pain R07.9 Non-ST elevation NE (NSTEMI) I21.4 ZAHRA (acute kidney injury) N17.9 Diastolic congestive heart failure I50.30
[2024-12-24] MEDS: nitroglycerin drip 50 MG/250 ML PREMIX IV (11:48)
[2024-12-24 11:55] LABS: Estmated Average Glucose 111; Hemoglobin A1C 5.5 % (4.0-6.0)
--- NOTE | 2024-12-24 11:56 | PC.NURSE ---
Provider is updated that patient is complaining of 9/10 chest pain, she just got here from ED. Provider ordered an EKG. She said that she takes xanax 0.5mg BID at home. She is asking for one. Provider ordered to resume it BID PRN.
[2024-12-24 12:04] LABS: Cholesterol 328 mg/dL (0-200); HDL Cholesterol 54 mg/dL (60-100); NT Pro B Type Natriuretic Pept 153 pg/mL (0-125); Thyroid Stimulating Hormone 3.28 uIU/mL (0.27-4.20); Triglycerides 270 mg/dL (0-150)
[2024-12-24 12:20] LABS: Hematocrit 35.8 % (36-47); Hemoglobin 11.50 g/dL (11.27-16.99); Platelet Count 327 10^3/cmm (157-399)
[2024-12-24 12:49] LABS: Partial Thromboplastin Time > 250.0 SECONDS (23.9-36.7); Troponin 5 6HR 110.3 ng/L (0-10); Troponin 5 6HR Delta 93.3 ng/L (0-12)
--- NOTE | 2024-12-24 12:51 | PC.NURSE ---
Addendum entered by Juana Barnes RN 12/24/24 13:59: no new orders. Original Note: Provider is called Tosha Perry, lab just called with her 6 hour trop of 110.3, delta 93.3. and her PTT is over 250 - her heparin drip has been stopped.
--- NOTE | 2024-12-24 13:02 | ECG_ITS ---
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 Measurements Intervals [place] Rate: 40 P: 42 NV: 183 QRS: -4 QRSD: 87 T: 15 QT: 485 QTc: 400 Interpretive Statements SINUS BRADYCARDIA CRITICAL TEST RESULT Compared to ECG 12/24/2024 11:12:37 No significant changes Electronically Signed On 12-24-2024 20:23:49 CDT by Clovis Martin M.D. [email or web address]
--- NOTE | 2024-12-24 14:59 | PC.NURSE ---
Provider is updated that Dr. Pérez just saw her and he is going to take her to [facility] today instead of Wednesday since she continues to have chest pain.
--- NOTE | 2024-12-24 15:10 | PC.NURSE ---
Dr Pérez gave nursing order to run NS at 250ml/hr for 250ml.
--- NOTE | 2024-12-24 15:26 | PC.NURSE ---
Patient transferred to general labor from CSU at 1527. SAMRA Giron is updated on her medications and allergy's and her pain level.
--- NOTE | 2024-12-24 15:48 | W.PM.OPSUD ---
Surgery/Procedure H&P Update DATE OF PROCEDURE: December 24, 2024 DATE H&P PERFORMED: 12/24/24 H&P UPDATE INFORMATION: I have reviewed H&P completed within last 30 days, I have examined patient prior to procedure and No changes to prior documentation CHANGES TO PREVIOUS DOCUMENTATION: [id number] Unstable because of recurrent chest pain PATIENT REASSESSED PRIOR TO SEDATION, WITH NO CHANGE NOTED: Yes PHYSICAL EXAM: alert, oriented x 3, clear to auscultation bilaterally, regular rate & rhythm and operative site marked AIRWAY EVAL/ANESTHESIA PLAN: ASA II, Risks, benefits & alternatives of sedation and/or procedure discussed and Patient agrees to continue as planned ADDITIONAL INFORMATION: Patient has been explained all risk-benefit and alternative for the procedure. Patient understand 2% risk of stroke major bleed. Patient understands 5% risk of minor bleeding bruising infection hematoma urgent or emergent vascular bypass surgery and contrast-induced nephropathy. Patient agrees to it and would like to proceed with
--- NOTE | 2024-12-24 17:20 | PM.PROC ---
Procedure Note: Date of procedure: 12/24/24 Pre-procedure diagnosis: [id number] CA Post-procedure diagnosis: same Procedure: Left heart catheter was performed Left main: No significant disease LAD: No significant disease with luminal irregularity LCx is a dominant vessel with high-grade 99% mid tandem stenosis, obtuse marginal 1 is a moderate size and caliber long branch with ostial moderate stenosis. RCA is nondominant small caliber vessel with a mid 50% stenosis Culprit vessel is mid 99% occluded circumflex. It was treated with 2 overlapping drug-eluting stents, we have to jailed the obtuse marginal branch because of the extension of lesion into it. We again recross with a wire into the jailed branch and dilated the ostium of the obtuse marginal 1 as well. Excellent angiographic result with DARRYN-3 flow was confirmed at the end of the case. Plan: Radial band as per protocol Patient will continuing aspirin and Plavix for at least 1 year Continue rest of medications Continue IV fluid 100 mL/h for 10 hours Full note to be dictated Coding Level of Care Code Acute Code for Maribel Sweet
--- NOTE | 2024-12-24 17:25 | PC.NURSE ---
Provider is updated, sleep lab technologist just called and they put 2 stents to her mid circ. Dr. Pérez wants the nitro drip to stay on because she is still having some chest pain.
--- NOTE | 2024-12-24 17:27 | PC.NURSE ---
Patient is returning to [facility] from [facility] with a right radial TR-Band. Per Dr. Pérez nitro drip is to continue and NS at 100ml/hr x 10 hours.
--- NOTE | 2024-12-24 17:47 | ECG_ITS ---
[employer] slinkset Test Date: 2024-12-24 Pat Name: Tosha Perry Department: Room: 103 Gender: Female Pediatric Dentist: : 1955 Requested By: Rika Pérez Order Number: [id number] Dietz MD: Clovis Martin M.D. Measurements Intervals [place] Rate: 54 P: 61 W[place]: 172 QRS: 32 QRSD: 90 T: 58 QT: 451 QTc: 428 Interpretive Statements SINUS BRADYCARDIA LOW QRS VOLTAGE IN PRECORDIAL LEADS [QRS DEFLECTION < 1.0 mV IN CHEST LEADS] MARKED ST ELEVATION, CONSIDER INFERIOR INJURY [MARKED ST ELEVATION W/O NORMALLY INFLECTED T-WAVE IN II/aVF] WITH POSSIBLE POSTERIOR EXTENSION ACUTE AK ST depression in the lateral leads, consistent with ischemia Compared to ECG 12/24/2024 13:02:44 Low QRS voltage now present ST findings are new Myocardial infarct finding now present Electronically Signed On 12-24-2024 20:08:30 CDT by Clovis Martin M.D. [id number]
[2024-12-24 18:50] LABS: Hematocrit 34.5 % (36-47); Hemoglobin 11.20 g/dL (11.27-16.99)
[2024-12-24 19:11] LABS: Partial Thromboplastin Time 109.9 SECONDS (23.9-36.7)
[2024-12-25] VITALS (10 sets, daily range): BP systolic 92–121; BP diastolic 46–77; PULSE 48–62; RESP 15–23; TEMP 36.2–36.8; O2SAT 94–99
[2024-12-25 00:59] LABS: Hematocrit 33.4 % (36-47); Hemoglobin 10.70 g/dL (11.27-16.99)
--- NOTE | 2024-12-25 02:26 | PC.NURSE ---
Assumed care of patient around 2345. The promixal TR had slowly been relieved of air and about 6 ml of air relieved from distal TR band. Around 0110 patient complained of 9/10 hand and neck pain. Patient SBP has been 85-90 with MAPs of 56-65. Received information from primary nurse that the linoleum printer was made aware of the low BP. Notified Dr. Millan regarding pain and not being comfortable giving dilaudid with a low BP. Requesting another pain medication if avaliable. Received orders from Dr. Millan to give a 1L bolus of NS followed with 75ml/hr and call back for pain meds after bolus. This nurse did let Dr. Millan aware that Dr. Pérez was aware of low BP. At this time NS is not available so the remainding maintance fluids were given as a bolus while house wirer went to get more fluids.
[2024-12-25] MEDS: HYDROmorphone 0.5 MG/0.5 ML INJ IVP (03:19)
[2024-12-25 04:44] LABS: Hematocrit 36.7 % (36-47); Hemoglobin 11.00 g/dL (11.27-16.99); Mean Corpuscular HGB Conc 30.0 g/dL (30-55); Mean Corpuscular Hemoglobin 27.8 pg (27-33); Mean Corpuscular Volume 92.7 fl (85-98); Nucleated Red Blood Cells % 0 %; Platelet Count 283 10^3/cmm (157-399); Red Blood Count 3.96 10^6/uL (3.85-5.65); White Blood Count 3.97 10^3/uL (3.29-11.43)
[2024-12-25 04:53] LABS: Alanine Aminotransferase 11 U/L (0-33); Albumin Level 3.6 g/dL (3.5-5.2); Alkaline Phosphatase 144 U/L (35-105); Anion Gap 13.7 (5-19); Aspartate Amino Transferase 42 U/L (0-32); Blood Urea Nitrogen 13 mg/dL (8-23); Calcium 8.5 mg/dL (8.5-10.5); Carbon Dioxide 22 mmol/L (22-29); Chloride 109 mmol/L (98-107); Globulin 3.0 g/dL (1.3-4.6); Glucose 120 mg/dL (65-115); Osmolality Calculated 293 mOsm/kg (285-295); Potassium 3.7 mmol/L (3.5-5.1); Sodium 141 mmol/L (136-145); Total Protein 6.6 g/dL (6.6-8.7)
[2024-12-25 04:59] LABS: Creatinine Clr Calc Pharmacy 45.4577
[2024-12-25] MEDS: sucralfate 1 gm/10 mL Oral Liq UDC PO ×4 (05:31→23:12)
[2024-12-25] MEDS: venlafaxine ER (24HR) 75 mg Capsule PO (07:47)
[2024-12-25] MEDS: oxyCODONE 5 mg IR Tab/Cap 10 MG PO ×2 (08:50→18:07)
--- NOTE | 2024-12-25 08:52 | P.PN_ITS ---
<Statement entered by Clovis Martin MD - 12/25/24 18:08> Patient was evaluated and cared for in conjunction with an advanced practice practitioner. I personally saw the patient and reviewed the chart and all pertinent data. I discussed the patient in detail with the advanced practice practitioner. Please see their note for complete assessment and agreed upon plan of care for the patient. BP running on the low side Encourage PO fluids Ambulate today Nearing discharge Recommend 14 day heart monitor at discharge Subjective 2 Subjective: No chest pain, feeling better overall. She has some chronic neck pain. Right hand swollen with a nodule in the right lateral wrist. Vitals/I&O/Wt Last Vital Signs Temp 98.2 F 12/25/24 07:08 Pulse 54 L 12/25/24 07:42 Resp 23 H 12/25/24 08:50 BP 92/46 12/25/24 07:08 Pulse Ox 99 12/25/24 08:50 O2 Del Method Room Air 12/25/24 07:42 FiO2 21 12/25/24 07:42 12/24/24 12/25/24 12/25/24 22:59 06:59 14:59 Intake Total 1010.475 / 2669.105 1615 / 2669.105 480 / 480 Balance 1010.475 / 2419.105 1615 / 2419.105 480 / 480 Weight last 48 hrs Weight 153 lb 1.6 oz Weight 145 lb Weight 145 lb 1.6 oz Physical Exam 2 Const: COMMON NORMALS: no acute distress and patient oriented x3 GENERAL APPEARANCE: cooperative ORIENTATION/CONSCIOUSNESS: Yes awake, Yes oriented to person, Yes oriented to place and Yes oriented to time Chest: COMMONS NORMALS: normal inspection of the chest and normal palpation of entire chest wall CHEST: Yes Symmetrical chest wall rise Resp: COMMON NORMALS: normal respiratory effort, No retractions, No use of accessory muscles and clear to auscultation bilaterally AUSCULTATION: clear to auscultation bilaterally Cardio: COMMON NORMALS: regular rate, regular rhythm, S1 normal heart sound present, S2 normal heart sound present, No gallops present (Cardio), No clicks present (Cardio), No murmurs present (Cardio) and No rub (Cardio) RATE: r egular rate RHYTHM: regular rhythm HEART SOUNDS: S1 normal heart sound present and S2 normal heart sound present PERIPHERAL PULSES: radial pulses present positive right 2+ and femoral pulses present positive right 2+ Neuro: COMMON NORMALS: patient oriented x3 and moves all extremities S ENSORIUM/ORIENTATION: Yes oriented to person, Yes oriented to place and Yes oriented to time Skin: WOUNDS: Yes surgical site (no hematoma palpable) Details: no odor Data 12/25/24 04:26 12/25/24 04:26 A&P Assessment and plan 1. Bradycardia: 2. Non-ST elevation [place] (NSTEMI): 3. Coronary artery disease: 4. Diastolic congestive heart failure: Plan: Chest pain resolved. Observing bradycardia, appears to be more prominent (HR in the 40's) during sleep, otherwise maintaining 50-60 bpm. No hematoma at right radial cath site. Renal function looks good this morning, creatinine 1.1. She states she is supposed to have evaluation for sleep apnea. May need event monitor prior to discharge. PDMP PDMP Reviewed: Not Reviewed Attestations 2 Medical Necessity Statement*: post stent circumflex, bradycardia Coding Level of Care Code Acute Code for [facility] Diagnoses Bradycardia R00.1 Non-ST elevation [place] (NSTEMI) I21.4 Coronary artery disease I25.10 Diastolic congestive heart failure I50.30
--- NOTE | 2024-12-25 09:27 | PC.CHAP ---
Pastoral Care Encounter/Spiritual Assessment Type of Contact [] Declined administrative services manager visit [] Patient/Family/Request visit [] Outpatient visit [] Follow-up visit [] Physician referral [] Code/Alert [x] Routine visit [] Staff referral [] Actively dying [] Patient sleeping [] Family support [] [] Out of room [] Palliative care [] [] Receiving care in room [] Pre-surgical visit [] Trauma [] Long length of stay [] ICU visit [] Other: Relational/Emotional Strength [] Patient feels connected with others/family/visitors/staff [] Distress [] Loneliness/isolation [] Abandonment Spirituality of Patient [x] Person of Shaina [] Attends Buddhism of their Shaina [x] Believes in Prayer [] Reads Bible or Catholic materials [] There are Spiritual issues to be addressed Assistant Printer Floor Covering Interventions [x] Prayer [x] Active listening [] Non-anxious presence [] Spiritual/emotional support [] Crisis/trauma care [] Spiritual counseling [] Bereavement support [] Provided bereavement packet [x] Provided Bible/devotional materials [] Provided toy/stuffed animal, coloring book to patient or family member [] Provided Communion [] Anointing/[place] [] Salvation [x] Completed spiritual assessment [] Other: Impact on Illness or Injury [] Angry [] Fearful [] Anxious [] Often cries [] Exhaustion [] Unable to work [] Unable to attend anabaptist [] Unable to walk/stand [] Unable to read [] Unable to drive [] Unable to eat/drink [] Unable to sleep [] Unable to be with family [] Patient intubated [] Other: Summary Time spent with patient 5 min
[2024-12-25] MEDS: pantoprazole 40 mg SDV IVP ×2 (12:09→23:12)
[2024-12-25] MEDS: HYDROmorphone 0.5 MG/0.5 ML INJ 1 MG IVP (12:41)
[2024-12-25 13:32] LABS: Hematocrit 32.2 % (36-47); Hemoglobin 9.90 g/dL (11.27-16.99)
--- NOTE | 2024-12-25 14:18 | P.PN_ITS ---
Subjective 2 Subjective: Patient was seen this morning, she is status post cardiac cath and stenting yesterday evening, no chest pain overnight, no fevers, no chills, no nausea, no vomiting, no bloody or black stools, no hematemesis, no hemoptysis Vitals/I&O/Wt Last Vital Signs Temp 97.2 F L 12/25/24 11:05 Pulse 57 L 12/25/24 11:05 Resp 18 12/25/24 11:05 BP 94/56 12/25/24 11:05 Pulse Ox 98 12/25/24 11:05 O2 Del Method Room Air 12/25/24 11:05 FiO2 21 12/25/24 07:42 12/24/24 12/25/24 12/25/24 22:59 06:59 14:59 Intake Total 1010.475 / 5204.882 7504 / 2669.105 1713.333 / 1713.333 Balance 1010.475 / 744.257 2675 / 2419.105 1713.333 / 1713.333 Weight last 48 hrs Weight 69.445 kg Weight 65.771 kg Weight 65.816 kg Physical Exam 2 Const: COMMON NORMALS: no acute distress and patient oriented x3 Resp: COMMON NORMALS: normal respiratory effort, No retractions, No use of accessory muscles and clear to auscultation bilaterally AUSCULTATION: clear to auscultation bilaterally Cardio: COMMON NORMALS: regular rate, regular rhythm, S1 normal heart sound present and S2 normal heart sound present RATE: regular rate RHYTHM: r egular rhythm HEART SOUNDS: S1 normal heart sound present and S2 normal heart sound present GI: COMMON NORMALS: Normal to inspection, nondistended, normoactive bowel sounds present and non-tender Extremity: COMMON NORMALS: no calf tenderness and no pedal edema Neuro: COMMON NORMALS: patient oriented x3 Psych: COMMON NORMALS: mental status grossly normal Data 12/25/24 13:17 12/25/24 04:26 A&P Assessment and plan 1. Unstable angina: 2. Bradycardia: 3. Non-ST elevation [place] (NSTEMI): Plan: Unstable angina - NSTEMI -With bradycardia - Patient has a history of GI bleed, reported hematemesis a week ago - Status post coronary angiography, mid 99% occluded circumflex, status post 2 overlapping drug-eluting stent, tolerated procedure well Cardiac echo CONCLUSIONS 1. Normal left ventricular size, systolic function and wall thickness, with no regional wall motion abnormalities. Left ventricular ejection fraction is estimated at 70%. 2. Grade II/IV diastolic dysfunction, moderately elevated filling pressures. 3. Moderate pulmonary hypertension. Plan - Aspirin - Statin - Plavix - Cardiac echo - Monitor hemoglobin closely - Protonix - Carafate - Serial EKGs, serial troponins, telemetry monitoring - Dilaudid for pain control - Full code - Lovenox for DVT prophylaxis PDMP PDMP Reviewed: Last Reviewed 12/25/24 08:24 by Bernard Ray MD Attestations 2 Medical Necessity Statement*: Patient requires hospitalization for unstable angina, status post stenting Diagnoses Unstable angina I20.0 Bradycardia R00.1 Non-ST elevation [place] (NSTEMI) I21.4
[2024-12-25 15:46] LABS: Glucose Urine UA Negative (Normal); Nitrate Urine Negative (Negative)
[2024-12-25 15:51] LABS: Add Urine Microscopic? YES
[2024-12-25 16:19] LABS: Specific Gravity, Urine 1.054 (1.005-1.030)
[2024-12-25 18:13] LABS: Hematocrit 35.2 % (36-47); Hemoglobin 10.70 g/dL (11.27-16.99)
[2024-12-26] VITALS: BP 94/51; PULSE 62; RESP 21; TEMP 36.8
[2024-12-26] MEDS: HYDROmorphone 0.5 MG/0.5 ML INJ 1 MG IVP (00:23)
[2024-12-26 03:33] LABS: Hematocrit 33.9 % (36-47); Hemoglobin 10.40 g/dL (11.27-16.99); Mean Corpuscular HGB Conc 30.7 g/dL (30-55); Mean Corpuscular Hemoglobin 27.6 pg (27-33); Mean Corpuscular Volume 89.9 fl (85-98); Nucleated Red Blood Cells % 0 %; Platelet Count 247 10^3/cmm (157-399); Red Blood Count 3.77 10^6/uL (3.85-5.65); White Blood Count 3.41 10^3/uL (3.29-11.43)
[2024-12-26 03:35] VITALS: BP 91/52; PULSE 55; RESP 17; TEMP 36.5; O2SAT 96
[2024-12-26 03:52] LABS: Anion Gap 13.5 (5-19); Blood Urea Nitrogen 16 mg/dL (8-23); Calcium 8.8 mg/dL (8.5-10.5); Carbon Dioxide 22 mmol/L (22-29); Chloride 106 mmol/L (98-107); Creatinine Clr Calc Pharmacy 56.9088; Glucose 104 mg/dL (65-115); Osmolality Calculated 287 mOsm/kg (285-295); Potassium 3.5 mmol/L (3.5-5.1); Sodium 138 mmol/L (136-145)
[2024-12-26] MEDS: sucralfate 1 gm/10 mL Oral Liq UDC PO ×2 (05:13→11:14)
[2024-12-26] MEDS: oxyCODONE 5 mg IR Tab/Cap 10 MG PO (05:13)
[2024-12-26 05:24] VITALS: BMI 25.3
[2024-12-26 07:08] VITALS: BP 119/63; PULSE 61; RESP 17; TEMP 36.5; O2SAT 96
--- NOTE | 2024-12-26 08:28 | P.PN_ITS ---
Subjective 2 Subjective: She is doing well this morning, plan to discharge home today with event monitor. No chest pain. Vitals/I&O/Wt Last Vital Signs Temp 97.7 F 12/26/24 07:08 Pulse 61 12/26/24 07:08 Resp 17 12/26/24 07:08 BP 119/63 12/26/24 07:08 Pulse Ox 96 12/26/24 07:08 O2 Del Method Room Air 12/26/24 07:08 FiO2 21 12/25/24 07:42 12/25/24 12/26/24 12/26/24 22:59 06:59 14:59 Intake Total 476.667 / 2190.000 Balance 476.667 / 2190.000 Weight last 48 hrs Weight 152 lb 4.8 oz Weight 153 lb 1.6 oz Weight 145 lb Physical Exam 2 Const: COMMON NORMALS: no acute distress and patient oriented x3 GENERAL APPEARANCE: cooperative ORIENTATION/CONSCIOUSNESS: Yes awake, Yes oriented to person, Yes oriented to place and Yes oriented to time Chest: COMMONS NORMALS: normal inspection of the chest and normal palpation of entire chest wall CHEST: Yes Symmetrical chest wall rise Resp: COMMON NORMALS: normal respiratory effort, No retractions, No use of accessory muscles and clear to auscultation bilaterally AUSCULTATION: clear to auscultation bilaterally Cardio: COMMON NORMALS: regular rate, regular rhythm, S1 normal heart sound present, S2 normal heart sound present, No gallops present (Cardio), No clicks present (Cardio), No murmurs present (Cardio) and No rub (Cardio) RATE: r egular rate RHYTHM: regular rhythm HEART SOUNDS: S1 normal heart sound present and S2 normal heart sound present PERIPHERAL PULSES: radial pulses present positive right 2+ and femoral pulses present positive right 2+ Neuro: COMMON NORMALS: patient oriented x3 and moves all extremities S ENSORIUM/ORIENTATION: Yes oriented to person, Yes oriented to place and Yes oriented to time Skin: WOUNDS: Yes surgical site (no hematoma palpable) Details: no odor Data 12/26/24 02:52 12/26/24 02:52 A&P Assessment and plan 1. Non-ST elevation [place] (NSTEMI): 2. Bradycardia: 3. Coronary artery disease: 4. Diastolic congestive heart failure: Plan: S/P TOMMIE x2 to circumflex. Chest pain resolved. She is unable to undergo planned endoscopy due to recent stents requiring DAPT. This was discussed in detail with patient this morning. Hospitalist service is increasing her PPI. Due to sinus bradycardia, recommending event monitor at discharge. PDMP PDMP Reviewed: Not Reviewed Attestations 2 Medical Necessity Statement*: ks home Coding Level of Care Code Acute Code for [facility] Diagnoses Non-ST elevation [place] (NSTEMI) I21.4 Bradycardia R00.1 Coronary artery disease I25.10 Diastolic congestive heart failure I50.30
--- NOTE | 2024-12-26 08:31 | PC.NURSE ---
Provider asked nursing to enter lasix 20mg IVP once.
[2024-12-26] MEDS: FUROsemide 10 mg/mL SDV 2mL 20 MG IVP (08:46)
[2024-12-26 11:10] VITALS: BP 113/54; PULSE 56; RESP 17; TEMP 36.5; O2SAT 94
[2024-12-26] MEDS: pantoprazole 40 mg SDV IVP (11:14)
--- NOTE | 2024-12-26 11:28 | P.DS_ITS ---
Discharge Providers Date of Admission: 12/24/24 09:56 Date of Discharge: December 26, 2024 Attending Provider at Admission: Bernard Ray MD Attending Provider at Discharge: Bernard Ray MD Primary Care Provider: Diana Garcia Diagnoses at Discharge Discharge Diagnosis 1. Non-ST elevation [place] (NSTEMI): 2. Bradycardia: 3. Coronary artery disease: 4. Diastolic congestive heart failure: Reason for Visit Reason for Visit: cp, n/v Hospital Course Hospital Course Tosha Perry is a 69 year old female history of hospitalization for sepsis secondary pneumonia, history of bradycardia, history of CAD, history of acute anemia, history of GI bleed, history of DVT, history of requiring IVC filter, history of CKD, history of left lower extremity peripheral vascular disease status post stenting currently on Plavix, who presents to [facility] due to chest pain. Patient reports that for the last 2 weeks she has been having intermittent chest pain, with shortness of breath with nausea, vomiting, no lightheadedness, no dizziness, no diaphoresis. She tells me that the frequency and intensity of the chest pain persist, she is actively having chest pain, in the anterior chest, nonradiating, denies any hemoptysis, does have calf pain, does have a IVC filter in place, she was taken off Eliquis she tells me sometime ago due to her IVC filter and she did not need the blood thinner anymore according to her physician, patient reports to me that she has a history of GI bleeds, history of gastric ulcer requiring cauterization, last back in June, she does report about a week ago she had an episode of hematemesis, it is resolved since then I was upfront and honest with patient that given her NSTEMI her persistent chest pain, she is on Plavix she will likely need to be placed on full dose anticoagulant therapy, aspirin, and her Plavix. Given her history of GI bleeds or complaints of her hematemesis, this does carry significant risks of GI bleeds, and morbidity and mortality associated. However were stuck between a rock and a hard place, as she is having active chest pain, she has elevated troponins, the standard of care would be to put her on aspirin, Plavix, anticoagulant therapy, and monitor her chest pain. What I will do is put her on a heparin drip so we can keep an eye on her PTT closer, place her on IV Protonix, Carafate, monitor hemoglobin every 6 hours. Monitor chest pain, monitor for GI bleed. If she does have a episode of GI bleed, discussed morbidity mortality associated, she voiced understanding, all questions answered, we will then have to have general surgery to potentially do an urgent EGD to potentially cauterize the bleeding or potentially transfer to tertiary level center. Discussed morbidity and mortality, discussed all options, shared decision making, after discussing risks and benefits of all options, she voiced understanding, all questions answered, agreed to proceed with plan. Will wait for cardiology's further recommendations. Given her persistent chest pain I would put her also on a nitroglycerin drip Patient was admitted to [facility] unstable angina - NSTEMI -With bradycardia - Patient has a history of GI bleed, reported hematemesis a week ago -Cardiology consulted - Status post coronary angiography, mid 99% occluded circumflex, status post 2 overlapping drug-eluting stent, tolerated procedure well -No evidence of bloody or black stools during hospitalization, hemoglobin has been stable Cardiac echo CONCLUSIONS 1. Normal left ventricular size, systolic function and wall thickness, with no regional wall motion abnormalities. Left ventricular ejection fraction is estimated at 70%. 2. Grade II/IV diastolic dysfunction, moderately elevated filling pressures. 3. Moderate pulmonary hypertension. - Was managed with aspirin, Plavix, statin, - No recurrent chest pain - Patient was advised if she were to have any recurrent chest pain to go to emergency room - Given her history of gastric ulcer, will be discharged on Protonix and Carafate - Patient was advised that if she develops any bloody or black stool or blood in vomit to immediately go to the emergency room or call [phone] -Discussed morbid and mortality associated with GI bleed, she voiced underst anding, all questions answered - Discussed with patient to not stopping aspirin, Plavix unless she is told to by cardiology or her physician - She has a follow-up with GI for consideration of EGD, discussed that she should continue to follow-up with her GI specialist, however her EGD and cauterization might be delayed given that she needs to be on aspirin and Plavix, and for now it cannot be held given her cardiac stent placements Physical Exam Const: COMMON NORMALS: no acute distress and patient oriented x3 Resp: COMMON NORMALS: normal respiratory effort, No retractions, No use of accessory muscles and clear to auscultation bilaterally AUSCULTATION: clear to auscultation bilaterally Cardio: COMMON NORMALS: regular rate, regular rhythm, S1 normal heart sound present and S2 normal heart sound present RATE: regular rate RHYTHM: regular rhythm HEART SOUNDS: S1 normal heart sound present and S2 normal heart sound present GI: COMMON NORMALS: Normal to inspection, nondistended, normoactive bowel sounds present and non-tender Extremity: COMMON NORMALS: no pedal edema Neuro: COMMON NORMALS: patient oriented x3 Psych: COMMON NORMALS: mental status grossly normal Discharge Data Studies Completed and Pending Completed Studies During Hospitalization Category Date Time Status CT abdomen pelvis w con* [id number] Stat Cat Scan 12/24/24 06:40 Completed XR chest 1V portable [id number] Stat Exams 12/24/24 06:35 [place] [id number] Routine Ultrasound 12/24/24 10:20 Completed CV. 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 Abdomen/Pelvis CT 12/24/24 06:40 IMPRESSION: No acute subdiaphragmatic pathology. COMMENTS: For patients with an IVC filter, recommend assessment for a management plan for the patient's IVC filter. If there is no established management plan, recommend referral to an interventional clinician on a nonemergent basis for evaluation. Venous Duplex 12/24/24 10:20 IMPRESSION: No sonographic evidence of deep venous thrombosis. Laboratory Results WBC 3.41 10^3/uL (3.29-11.43) 12/26/24 02:52 RBC 3.77 10^6/uL (3.85-5.65) L 12/26/24 02:52 Hgb 10.40 g/dL (11.27-16.99) L 12/26/24 02:52 Hct 33.9 % (36-47) L 12/26/24 02:52 MCV 89.9 fl (85-98) 12/26/24 02:52 MCH 27.6 pg (27-33) 12/26/24 02:52 MCHC 30.7 g/dL (30-55) 12/26/24 02:52 RDW 17.3 % (12.1-15.1) H 12/26/24 02:52 Plt Count 247 10^3/cmm (157-399) 12/26/24 02:52 MPV 9.5 fL (7.4-10.4) 12/26/24 02:52 Neut % (Auto) 31.4 % 12/26/24 02:52 Lymph % (Auto) 39.9 % 12/26/24 02:52 [place] % (Auto) 20.5 % 12/26/24 02:52 Eos % (Auto) 7.0 % 12/26/24 02:52 Baso % (Auto) 0.6 % 12/26/24 02:52 Neut # (Auto) 1.07 10^3/uL (1.8-7.7) L 12/26/24 02:52 Lymph # (Auto) 1.4 10^3/uL (0.8-4.8) 12/26/24 02:52 [place] # (Auto) 0.7 10^3/uL (0.2-0.9) 12/26/24 02:52 Eos # (Auto) 0.2 10^3/uL (0.0-0.8) 12/26/24 02:52 Baso # (Auto) 0.0 10^3/uL (0.0-0.1) 12/26/24 02:52 Nucleated RBC % (auto) 0 % 12/26/24 02:52 Nucleated RBCs # 0.0 /100WBC 12/26/24 02:52 PT 12.60 SECONDS (12.1-14.9) 12/24/24 06:58 INR 0.88 (0.8-1.2) 12/24/24 06:58 APTT 109.9 SECONDS (23.9-36.7) H D 12/24/24 18:17 D-Dimer 1.58 ug/mLFEU (0-0.59) H 12/24/24 06:58 Sodium 138 mmol/L (136-145) 12/26/24 02:52 Potassium 3.5 mmol/L (3.5-5.1) 12/26/24 02:52 Chloride 106 mmol/L (98-107) 12/26/24 02:52 Carbon Dioxide 22 mmol/L (22-29) 12/26/24 02:52 Anion Gap 13.5 (5-19) 12/26/24 02:52 BUN 16 mg/dL (8-23) 12/26/24 02:52 Creatinine 0.9 mg/dL (0.5-0.9) 12/26/24 02:52 GFR Calculation 61.9 mL/min (90-130) L 12/26/24 02:52 Glucose 104 mg/dL (65-115) 12/26/24 02:52 Estimat Average Glucose 111 12/24/24 06:58 Hemoglobin A1c 5.5 % (4.0-6.0) 12/24/24 06:58 Calculated Osmolality 287 mOsm/kg (285-295) 12/26/24 02:52 Calcium 8.8 mg/dL (8.5-10.5) 12/26/24 02:52 Total Bilirubin 0.3 mg/dL (0.15-1.2) 12/25/24 04:26 AST 42 U/L (0-32) H 12/25/24 04:26 ALT 11 U/L (0-33) 12/25/24 04:26 Alkaline Phosphatase 144 U/L (35-105) H 12/25/24 04:26 Troponin T Baseline 17 ng/L (0-10) H 12/24/24 06:58 Troponin T 120 Minute 43.45 ng/L (0-10) H 12/24/24 09:09 Delta Troponin T 26.45 ABS# (0-10) H* 12/24/24 09:09 Troponin T Hi Sens 6Hr 110.3 ng/L (0-10) H 12/24/24 12:15 Troponin T Hi Sens 6Hr Delta 93.3 ng/L (0-12) H* 12/24/24 12:15 NT-Pro-B Natriuret Pep 153 pg/mL (0-125) H 12/24/24 06:58 Total Protein 6.6 g/dL (6.6-8.7) D 12/25/24 04:26 Albumin 3.6 g/dL (3.5-5.2) 12/25/24 04:26 Globulin 3.0 g/dL (1.3-4.6) 12/25/24 04:26 Triglycerides 270 mg/dL (0-150) H 12/24/24 06:58 Cholesterol 328 mg/dL (0-200) H 12/24/24 06:58 LDL Cholesterol, Calc 220 mg/dL (50-129) H 12/24/24 06:58 HDL Cholesterol 54 mg/dL (60-100) L 12/24/24 06:58 LDL/HDL Ratio 4.07 RATIO (0.00-3.22) H 12/24/24 06:58 Cholesterol/HDL Ratio 6.07 mg/dL (0.0-4.40) H 12/24/24 06:58 Lipase 26 U/L (13-60) 12/24/24 06:58 TSH 3.28 uIU/mL (0.27-4.20) 12/24/24 06:58 Urine Color Yellow (Yellow) 12/25/24 15:14 Urine Appearance Clear (CLEAR) 12/25/24 15:14 Urine pH 7.0 (5-7) 12/25/24 15:14 Ur Specific [place] 1.054 (1.005-1.030) H 12/25/24 15:14 Urine Protein 1+ (Negative) A 12/25/24 15:14 Urine Glucose (UA) Negative (Normal) 12/25/24 15:14 Urine Ketones Negative (Negative) 12/25/24 15:14 Urine Blood Negative (Negative) 12/25/24 15:14 Urine Nitrate Negative (Negative) 12/25/24 15:14 Urine Bilirubin Negative (Negative) 12/25/24 15:14 Urine Urobilinogen 0.2 mg/dL (Negative) 12/25/24 15:14 Ur Leukocyte Esterase Negative (Negative) 12/25/24 15:14 Urine RBC 0-2 /hpf (0-2) 12/25/24 15:14 Urine WBC 6-10 /hpf (0-5) 12/25/24 15:14 Ur Squamous Epith Cells 0-5 /hpf (0-5) 12/25/24 15:14 Amorphous Sediment Not Reportable 12/25/24 15:14 Urine Bacteria None seen /hpf (NONE) 12/25/24 15:14 Hyaline Casts 0-4 /lpf H 12/25/24 15:14 Vitals Last Vital Signs Temp 97.7 F 12/26/24 11:10 Pulse 56 L 12/26/24 11:10 Resp 17 12/26/24 11:10 BP 113/54 12/26/24 11:10 Pulse Ox 94 12/26/24 11:10 O2 Del Method Room Air 12/26/24 11:10 FiO2 21 12/25/24 07:42 Discharge Plan Discharge Patient Disposition: Home Health Service Condition: Stable Prescriptions: New atorvastatin 40 mg Tablet 40 mg PO BEDTIME 30 Days Qty: 30 0RF aspirin 81 mg Tablet,Delayed Release (Dr/Ec) 81 mg PO DAILY 30 Days Qty: 30 0RF nitroglycerin 0.4 mg Tablet, Sublingual 0.4 mg sublingual Q5M PRN (Reason: Chest Pain) 30 Days Qty: 30 0RF Continued levothyroxine 112 mcg tablet 112 mcg PO QAM Qty: 90 1RF albuterol sulfate 90 mcg/actuation HFA aerosol inhaler 1 puff inhalation Q6H PRN (Reason: Shortness Of Breath) Qty: 6.7 0RF methotrexate sodium 25 mg/mL solution 20 mg SUBCUT .Q7days Qty: 10 1RF Rx Instructions: ON MONDAYS oxycodone 10 mg tablet 10 mg PO Q8H PRN (Reason: Pain) venlafaxine 75 mg capsule,extended release 24hr 75 mg PO DAILY ropinirole 5 mg tablet 5 mg PO BID Qty: 270 0RF ramelteon 8 mg tablet 8 mg PO BEDTIME sucralfate 1 gram tablet 1 g PO BID 30 Days Qty: 60 0RF clopidogrel 75 mg tablet 75 mg PO DAILY 30 Days Qty: 30 0RF gabapentin 300 mg capsule 300 mg PO TID fluticasone propionate 50 mcg/actuation spray,suspension 1 spray INTRANASAL BID PRN (Reason: allergies) promethazine 12.5 mg tablet 12.5 mg PO Q8H PRN (Reason: Nausea) baclofen 10 mg tablet 5 mg PO Q12H PRN (Reason: Muscle Spasm) Qty: 30 0RF furosemide 80 mg tablet 40 mg PO DAILY Qty: 30 0RF potassium chloride 20 mEq tablet extended release 20 meq PO DAILY Qty: 30 0RF Changed pantoprazole [Protonix] 40 mg tablet,delayed release (DR/EC) 40 mg PO Q12H 30 Days Qty: 60 0RF Discontinued furosemide 80 mg tablet 80 mg PO DAILY No Action (DME) tens unit for cervical See Rx Instructions .Route .MEDSUPPLY Qty: 1 0RF Rx Instructions: As directed (DME) Bone growth stimulator See Rx Instructions .Route .MEDSUPPLY Qty: 1 0RF Rx Instructions: As directed (DME) Bone growth stimulator See Rx Instructions .Route .MEDSUPPLY Qty: 1 0RF Rx Instructions: As directed (DME) insulin syringes (disposable) 1 mL syringe See Rx Instructions .ROUTE .MEDSUPPLY Qty: 25 3RF Rx Instructions: As directed Work Station Support Specialist OK for DC: Cardiology Referrals: [facility] [Outside] Chava Mckinley M.D [Physician, Cardiology] - 01/01/25 3:00 pm Diana Garcia PA [Primary Care Provider, Physicians Operations Planner] - 12/29/24 10:40 am Discharge Diet: Cardiac Discharge Activity: Resume usual activity Patient Instructions: Nitroglycerin (By mouth), Aspirin (By mouth), Atorvastatin (By mouth), Opioid Safety, Patient Portal & Cece Instructions Activity Restrictions/Additional Instructions: - Take aspirin, Plavix, please do not stop taking these medications - If you have bloody or black stools or hematemesis go to emergency room - Take Protonix, Carafate, for GI protection - Follow-up with cardiology -Follow-up with GI Discharge Attestations Time Spent in Discharge Care*: greater than 30 min Status at Discharge: Cognitive status at discharge: cognitively intact , Behavioral status at discharge: cooperative , Quality Metrics Clinical Quality Measures [ No reported AMI, CVA or VTE this stay] Coding Level of Care Code 83836 Total time (in minutes) for Discharge: 45 Diagnoses Non-ST elevation [place] (NSTEMI) I21.4 Bradycardia R00.1 Coronary artery disease I25.10 Diastolic congestive heart failure I50.30
--- NOTE | 2024-12-26 12:36 | PC.NURSE ---
Provider is updated that Tosha Perry she has ambulated about 300 [address] hallway. No chest pain or shortness of breath. She has had over 1400 out since the lasix. We are waiting on [id number] for her also.
[2024-12-26 12:49] VITALS: BP 113/54; PULSE 56; RESP 17; TEMP 36.5; O2SAT 94
--- NOTE | 2024-12-26 14:07 | PC.NURSE ---
Provider is reminded that he was going to send in a PX for xanax to [facility] for her on discharge. Provider said that he would send it in.
== END 2024-12-26 13:40 | disposition home health service (06) | DRG 322 ==
LOC: ER 10:05 → CSU 10:12
PROVIDERS: Internal Medicine Cardiovascular Disease; Admitting Provider Family Medicine; Emergency Provider Emergency Medicine; PCP Physician Assistant; Visit Provider Family Medicine
PROC: 027035Z Dilation of Coronary Artery, One Artery with Two Drug-eluting Intraluminal Devices, Percutaneous Approach (ICD-10-PCS; principal; 2024-12-24 15:30)
PROC: 027035Z Dilation of Coronary Artery, One Artery with Two Drug-eluting Intraluminal Devices, Percutaneous Approach (ICD-10-PCS; 2024-12-24 15:30)
DX: I21.4 Non-ST elevation (NSTEMI) myocardial infarction (principal); I50.32 Chronic diastolic (congestive) heart failure; R00.1 Bradycardia, unspecified; I25.10 Atherosclerotic heart disease of native coronary artery without angina pectoris; N18.30 Chronic kidney disease, stage 3 unspecified; R73.03 Prediabetes; I73.9 Peripheral vascular disease, unspecified; K21.9 Gastro-esophageal reflux disease without esophagitis; G25.81 Restless legs syndrome; I27.20 Pulmonary hypertension, unspecified; E03.9 Hypothyroidism, unspecified; D50.9 Iron deficiency anemia, unspecified; F32.A Depression, unspecified; F41.9 Anxiety disorder, unspecified; M05.9 Rheumatoid arthritis with rheumatoid factor, unspecified; Z79.891 Long term (current) use of opiate analgesic; Z79.02 Long term (current) use of antithrombotics/antiplatelets; Z87.01 Personal history of pneumonia (recurrent); Z86.718 Personal history of other venous thrombosis and embolism; Z95.828 Presence of other vascular implants and grafts; Z95.820 Peripheral vascular angioplasty status with implants and grafts; Z98.1 Arthrodesis status; Z87.891 Personal history of nicotine dependence
CPT/HCPCS: 36415; 71045; 74177; 80048; 80053; 80061; 81001; 83036; 83690; 83880; 84443; 84484; 85014; 85018; 85025; 85049; 85378; 85610; 85730; 92920; 93005; 93306; 93454; 93970; 94664; 96372; 96374; 96375; 96376; 99152; 99153; 99285; C1725; C1769; C1874; C1887; C1894; C9600; J0461; J1171; J1644; J1650; J1938; J2250; J2405; J2470; J3010; J3490; J7030; J9999; Q9967

== ENCOUNTER 2024-12-27 08:54 | Inpatient (IN) | payer MEDICARE, OTHER, SELFPAY ==
--- OUTSIDE RECORDS SUMMARY | 2024-07-17 04:30 | XMS_ITS ---
Author Organization [facility] Address [address] [place] [address] Care Team Providers Care Vehicle Maintenance Technician Name Role Phone Diana Galvan Primary Care Provider Mode Leavitt Unavailable [phone] Paxton Nobles Unavailable [phone] REASON FOR VISIT wants new mri Encounters Encounter Location Date Provider Diagnosis [facility] [place] [address] [place] [address] 07/17/2024 Paxton Nobles Plan Of Treatment Next Appt Details Provider Name:Mode Cabello, 01/31/2025 01:20:00 PM, [address] [place], [address], Progress Notes * BARRY VAN SDOB:[birth year] (69 yo F)Acc No.[id number]:07/17/2024 Progress Notes Patient: BARRY LIVINGSTON Provider: Rosalia Nobles APRN :1955 A ge:69 Y S ex:Female Date:07/17/2024 Address:[address] [place] [address] [place] [phone] Pcp:SHIV Chong Subjective: * Chief Complaints: * W ants new mri Billing Information: * Procedure Codes: Care Plan Details* * Electronic signature of Will MALIK Donald on 12/27/2024 at 09:02 AM CDT Sign off status: Pending * Provider: Rosalia Nobles APRN Date: 0 07/17/2024 Generated for Shen lindo/Sindy/Chandler on: 0 12/27/2024 09:02 AM CDT
[2024-12-27] VITALS (25 sets, daily range): BP systolic 92–148; BP diastolic 44–103; PULSE 50–71; RESP 11–29; TEMP 36.6–36.8; O2SAT 93–100; BMI 23.8; BMI 27.1
--- NOTE | 2024-12-27 08:58 | ECG_ITS ---
[facility]: 2024-12[facility]27 Pat Name: Tosha Perry Department: Room: Gender: Female Coding Specialist: : [id number] Requested By: Sammy Khoury Order Number: [id number] Mirela MD: Sherine Greene M.D. Measurements Intervals Cameron Rate: 64 P: 52 MS: 202 QRS: 13 QRSD: 75 T: 12 QT: 405 QTc: 421 Interpretive Statements SINUS RHYTHM LOW QRS VOLTAGE IN PRECORDIAL LEADS [QRS DEFLECTION < 1.0 mV IN CHEST LEADS] SEPTAL MYOCARDIAL INFARCTION , PROBABLY OLD [40+ ms Q WAVE IN V1/V2] Compared to ECG 12/24/2024 17:57:17 Sinus bradycardia no longer present ST (T wave) deviation no longer present Possible ischemia no longer present Myocardial infarct finding still present Electronically Signed On 12-27-2024 13:43:19 CDT by Sherine Greene M.D. [email or web address]
--- NOTE | 2024-12-27 09:00 | XR_ITS ---
WS: [id number] XR chest 1V portable [id number] REASON FOR EXAM: chest pain FINDINGS: The chest is unchanged compared to 12/24/2024. Mild tortuosity of the thoracic aorta. Mild calcification of the aortic arch. Mild cardiomegaly. Mild central pulmonary venous congestion. Coronary artery stent. Hiatal hernia. No acute pulmonary parenchymal or pleural abnormality. Mild degenerative spondylosis in the mid thoracic spine. XR/XR chest 1V portable [id number] IMPRESSION: Stable chest without acute abnormality. Mild cardiomegaly
--- OUTSIDE RECORDS SUMMARY | 2024-12-27 09:02 | XMS_ITS | Patient Health Record ---
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) Active confirmed Problem Wrist joint effusion (500829349) Effusion, right wrist (M25.431) Active confirmed Problem 942462308 Dyslipidemia (E78.5) Active confirmed Problem 01383416 Seizures (R56.9) Active confirmed Problem 44972381 Heart murmur (R01.1) Active confirmed Problem 400987768 Diabetes mellitu s type 2 in nonobese (E11.9) Active confirmed Problem 129082927 GERD without esophagitis (K21.9) Active confirmed Problem 711659320 Hypothyroidism (acquired) (E03.9) Active confirmed Problem 7891896308008 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) Active confirmed Problem 13293089 Depression, unspecified depression type (F32.9) Active confirmed Problem 673781223 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) Active confirmed Problem 143881774 Cataract of left eye, unspecified cataract type (H26.9) Active confirmed Plan Of Treatment Pending Test Test Name Order Date Hemoglobin A1c ([id number]) 11/12/2016 MRI- BRAIN WO CONTRAST (14817)(HEAFH-BRA O) 01/22/2017 XRAY- ABDOMEN-KUB 1V (94134)(HEH-ABDK1 ) 01/21/2017 Insurance Providers Payer Name Payer Address Payer Phone Subscriber Number Group Number Insured Name Patient Relationship to Insured Coverage Start Date Coverage End Date MEDICARE [place] PART B [address] [facility] [place] [id number] Tosha Perry Self - patient is the insured [facility] [id number] [facility], [place] [id number] Tosha Perry Self - patient is the [...]
--- OUTSIDE RECORDS SUMMARY | 2024-12-27 09:02 | XMS_ITS | Patient Health Record ---
Author Organization [facility] [employer] Address [address] [facility] [address] [place] [address] Support Name Relationship Address Phone BARRY VAN Guarantor Unknown [phone] Allergies Allergen (clinical drug ingredient) Drug/Non Drug [...] Status W/U Status Risk Notes Problem Hypothyroidism (38820810) Other specified hypothyroidism (E03.8) Active confirmed Problem Chronic pancreatitis (736228768) Other chronic pancreatitis (K86.1) Active confirmed Problem Sciatica (61302458) Lumbago with sciatica, right side (M54.41) Active confirmed Problem Sciatica (29016926) Lumbago with sciatica, left side (M54.42) Active confirmed Problem Anxiety (46678328) Anxiety (F41.9) Active confirmed Problem Posttraumatic stress disorder (55281897) PTSD (post-traumatic stress disorder) (F43.10) Active confirmed Problem Heart failure (87697270) Other congestive heart failure (I50.9) Active confirmed Problem Chronic pain due to injury (736440253) 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) Active [...] End Date [place]ARE [place], [place] [address] [address] GABI BRIZUELA [id number] [phone] [id number] BARRY VAN Self - patient is the insured [employer] [address] [place] [address] [place] [id number] BARRY VAN Self - patient is the insured Medical (General) History Medical History History ICD Code Hypothyroidism head injury with seizures multiple traumatic injuries from [facility] back surgery pancreatitis cataract pneumonia depression GERD Surgical History Surgery Date(Month/Year) back surgery 2014 Hospitalization History Reason Date(Month/Year) Pneumonia and hand infection. 11/2021
--- OUTSIDE RECORDS SUMMARY | 2024-12-27 09:02 | XMS_ITS | Patient Health Record ---
Author Organization [facility] Address [address] [place] [address] Care Team Providers Care Entry Operator Name Role Phone Diana Galvan Primary Care Provider UnavailMode Estevez Unavailable [phone] Rajesh Serna Unavailable [phone] Paxton Nobles Unavailable [phone] Migration, Provider Unavailable Unavailable Judah Shelton Unavailable [phone] Desiree Cox Unavailable Deedee Villarreal Unavailable [phone] Allergies Allergen (clinical drug ingredient) Drug/Non Drug Allergy documented on EMR Reaction Allergy Type Onset Date Status diphenhydramine Benadryl Unknown Drug Allergy A ctive sumatriptan Imitrex Unknown Drug Allergy Activ e Results Component Value Reference Range Flag Notes zzzCT Outside CD (Not yet re viewed by provider) Interpretation: Performing Lab: Notes/Report: [id number]&org=iSite Schedule Confirmation (Not y et reviewed by provider) Interpretation: Performing Lab: Notes/Report: Schedule Confirmation (Not y et reviewed by provider) Interpretation: Performing Lab: Notes/Report: Schedule Confirmation (Not y et reviewed by provider) Interpretation: Performing Lab: Notes/Report: Schedule Confirmation (Not y et reviewed by provider) Interpretation: Performing Lab: Notes/Report: Urine Drug Screen (cup read) - [id number] Reviewed date:10/05/2024 10:34:03 AM Interpretation: Performing Lab: Notes/Report: BZO + OPI + Urine Drug Screen (cup read) - 45894 Reviewed date:06/22/2024 01:19:32 PM Interpretation:Positive Performing Lab: Notes/Report: Positive OXY + Urine Drug Screen (cup read) - [id number] Reviewed date:03/30/2024 03:52:14 PM Interpretation: Performing Lab: Notes/Report: OXY + Urine Drug Screen (cup read) - 74132 Reviewed date:11/27/2024 02:11:57 PM Interpretation: Performing Lab: Notes/Report: OXY + IPMA Saliva Drug Screen Reviewed date:09/01/2024 10:27:02 AM Interpretation: Performing Lab: Notes/Report: zzzUrine Drug Screen (confir mation by instrument) - [id number] Reviewed date:04/06/2024 12:03:00 PM Interpretation: Performing Lab: Notes/Report: Urine Confirmation Panel (in strument) - [id number] Reviewed date:12/05/2024 02:47:57 PM Interpretation: Performing Lab: [...] the U.S. Food and Drug Administration. Gabapentin >58888 <225 ng/mL > This test was developed [...] Administration. Urine Confirmation Panel (in strument) - 23519 Reviewed date:06/28/2024 02:49:57 PM Interpretation: Performing Lab: [...] the U.S. Food and Drug Administration. Gabapentin >16070 <225 ng/mL > This test was developed [...] by the U.S. Food and Drug Administration. Tox Results Reviewed date:12/05/2024 02:35:33 PM Interpretation: Performing Lab: Notes/Report: Tox Results Reviewed date:06/28/2024 02:49:57 PM Interpretation: Performing Lab: Notes/Report: Reason For Referral Reason PVD - OZH 10/24/2023 : The left common femoral artery 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 Also thrombus within the right common femoral vein (IVC filter in place) Diagnosis 1 Peripheral vascular disease (I73.9) Referring Provider First Name Mode Referring Provider Last Name Irineo Referring Provider Speciality Interventi onal Pain Medicine Referred Organization [facility] Referred Provider Corby Mena Referred Address [address] [place] [address] [address],[place], [place],[address], Referred Provider Specialty Vascular [facility] faith General Notes Pamella Marlow 11/23/19 04:10:15 PM >Please schedule with Dr. Shelton or Wilmer Mena Brittany M 11/23/2023 04:37:14 PM >Called patient Ang PANDYAKiley braun 11/29/2023 02:10:10 PM >Appointment scheduled on 12/01 @ 2Kashmir Lisa 12/09/2023 08:14:16 AM >patient canceled due to being sick and will reschedule Kiley Guillen 12/09/2023 11:24:41 AM >Called patient Ang PANDYAKiley braun 12/22/2023 10:24:17 AM >Called patient Wilmer PANDYAKiley 12/29/2023 08:17:23 AM >Called patient Ang PANDYAKiley braun 12/29/2023 08:56:59 AM >Appointment scheduled on 01.12 @ 2:30Kashmir Lisa 01/14/2024 07:57:51 AM >being followed by a in [place] Clinical Notes Hermelinda Genao 03:39:32 PM >More information to come, Hermelinda Genao 11/05/2023 09:04:39 AM >US and CT shows thrombus in right common femoral vein and IVC filter in place, 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 Referral Priority Routine Reason Please order cervica l spine x-ray in [place] Diagnosis 1 Arthrodesis status ( Z98.1) Referral Organization [facility] [place] Referring Provider First Name Paxton Referring Provider Last Name Giuliano Referring Provider Speciality Neurosurge tahmina Referral Priority Routine Reason Dr Garcia / Sam Spine x ray Diagnosis 1 Cervical pain (neck) (M54.2) Referral Organization [facility]ine [facility] Referring Provider First Name Paxton Referring Provider Last Name Giuliano Referring Provider Speciality Neurosurge tahmina Referral Priority Routine Reason EMG/NCV study of the bilateral upper extremities Diagnosis 1 Pain in right upper arm (M79.621) Diagnosis 2 Pain in left upper a rm (M79.622) Diagnosis 3 Cervical radiculopat hy (M54.12) Diagnosis 4 Cervical paraspinal muscle spasm (M62.838) Referral Organization [facility] Referring Provider First Name Rajesh Referring Provider Last Name Kareem Referring Provider Speciality Neurosurge tahmina Referred Provider [facility], Physi roselia Therapy (Main) Referred Provider Specialty Physical The rapist Referral Priority Routine Reason EMG/NCV Bilateral Up per Extremities Diagnosis 1 Pain in right upper arm (M79.621) Diagnosis 2 Pain in left upper a rm (M79.622) Diagnosis 3 Cervical radiculopat hy (M54.12) Diagnosis 4 Degenerative disc di sease, cervical (M50.30) Diagnosis 5 Cervical paraspinal muscle spasm (M62.838) Referral Organization [facility] [place] Referring Provider First Name Rajesh Referring Provider Last Name Kareem Referring Provider Speciality Neurosurge tahmina Referred Provider [facility], Physi roselia Therapy ([facility]) Referred Provider Specialty Physical The rapist Referral Priority Routine Reason Evaluation of a cerv ical spinal cord stimulator Diagnosis 1 Cervical paraspinal muscle spasm (M62.838) Diagnosis 2 Chronic pain syndrom e (G89.4) Diagnosis 3 Arthrodesis status ( Z98.1) Referring Provider First Name Rajesh Referring Provider Last Name Kareem Referring Provider Speciality Neurosurge tahmina Referred Organization [facility] Referred Provider Mode Cabello Referred Address [address] [facility] [facility],[address], General Notes Rico Alissa Do 0 05/19/2024 03:03:09 PM >ATC to schedule. Referral Priority Routine Reason Evaluation of a cerv ical spinal cord stimulator Diagnosis 1 Chronic pain syndrom e (G89.4) Diagnosis 2 Cervical paraspinal muscle spasm (M62.838) Diagnosis 3 Arthrodesis status ( Z98.1) Referral Organization [facility] Neur [facility] [place] Referring Provider First Name Rajesh Referring Provider [...] Status Risk Notes Problem Chronic pain syndrome (148120861) Chronic pain syndrome (G89.4) 09/15/19 24 Active confirmed Problem Cervical spondylosis without myelopathy (299534482) Other spondylosis with radiculopathy, cervical region (M47.22) 09/15/19 24 Active confirmed Problem Degeneration of cervical intervertebral disc (59789589) Other cervical disc degeneration, unspecified cervical region (M50.30) 09/15/19 24 Active confirmed Problem Post-laminectomy syndrome (50591847) Postlaminectomy syndrome, not elsewhere classified (M96.1) 09/15/19 24 Active confirmed Problem Abnormal gait (87578542) Unspecified abnormalities of gait and mobility (R26.9) 09/15/19 24 Active confirmed Problem High risk drug monitoring status (111001629) USP (current) use of opiate analgesic (Z79.891) 09/15/19 24 Active confirmed Problem Cervical radiculopathy (14635783) Cervical radiculopathy (M54.12) Active confirmed Problem Degeneration of cervical intervertebral disc (96892175) Degenerative disc disease, cervical (M50.30) Active confirmed Problem 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) (971106121) Facet arthropathy, 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) Active confirmed Problem Neck pain (21582602) Cervical pain (neck) (M54.2) Active confirmed Problem Peripheral vascular disease (793697317) Peripheral vascular disease (I73.9) Active confirmed Vital Signs Heart Rate 68 /min 05/04/2024 Temperature 98.2 degrees Fahrenheit 05/04/2024 Respiratory Rate 20 /min 05/04/2024 Blood pressure diastolic 64 mm Hg 05/04/2024 Oximetry 96 % 05/04/2024 Height-cm 165.1 cm 11/27/2024 Weight-kg 63.5 kg 11/27/2024 Height 65 in 11/27/2024 Blood pressure systolic 122 mm Hg 05/04/2024 Weight 140 lbs 11/27/2024 BMI 23.29 kg/m2 11/27/2024 Encounters Encounter Location Date Provider Diagnosis [facility] [address] [address] 02/17/2024 Deedee Villarreal [facility] [address] [address] 01/13/2024 Deedee Villarreal [facility] [address] [place] [address] 01/31/2024 Paxton Nobles Arthrodesis status Z98.1 ; Cervical pain (neck) M54.2 ; Degenerative disc disease, cervical M50.30 ; Facet arthropathy, cervical M46.92 and Paraspinal muscle spasm M62.830 [facility] [address] [address] 02/15/2024 Rajesh Serna Cervical radiculopathy M54.12 ; Cervical paraspinal muscle spasm M62.838 ; Arthrodesis status Z98.1 ; Pain in right upper arm M79.621 ; Pain in left upper arm M79.622 and Loosening of hardware in spine T84.498A [facility] [place] [address] [place] [address] 03/30/2024 Deedee Villarreal Chronic pain syndrom e G89.4 ; Other cervical disc degeneration, unspecified cervical region M50.30 ; Other spondylosis with radiculopathy, cervical region M47.22 ; Postlaminectomy syndrome, not elsewhere classified M96.1 ; Myalgia of auxiliary muscles, head and neck M79.12 ; Unspecified abnormalities of gait and mobility R26.9 and buttermaker continuous churn (current) use of opiate analgesic Z79.891 [facility] [place] [address] [place] [address] 04/26/2024 Mode Cabello Chronic pain syndrom e G89.4 ; Other spondylosis with radiculopathy, cervical region M47.22 ; Other cervical disc degeneration, unspecified cervical region M50.30 ; Myalgia of auxiliary muscles, head and neck M79.12 ; Postlaminectomy syndrome, not elsewhere classified M96.1 ; Unspecified abnormalities of gait and mobility R26.9 and buttermaker continuous churn (current) use of opiate analgesic Z79.891 [facility] [place] [address] [place] [address] 05/04/2024 Rajesh Serna Cervical paraspinal muscle spasm M62.838 ; Chronic pain syndrome G89.4 ; Degenerative disc disease, cervical M50.30 ; Cervical radiculopathy M54.12 and Arthrodesis status Z98.1 [facility] [place] [address] [place] [address] 05/24/2024 Mode Cabello Chronic pain syndrom e G89.4 ; Other cervical disc degeneration, unspecified cervical region M50.30 ; Other spondylosis with radiculopathy, cervical region M47.22 ; Myalgia of auxiliary muscles, head and neck M79.12 ; Postlaminectomy syndrome, not elsewhere classified M96.1 ; Unspecified abnormalities of gait and mobility R26.9 and USP (current) use of opiate analgesic Z79.891 [facility] [place] [address] [place] [address] 06/22/2024 Deedee Villarreal Chronic pain syndrom e G89.4 ; Other cervical disc degeneration, unspecified cervical region M50.30 ; Other spondylosis with radiculopathy, cervical region M47.22 ; Myalgia of auxiliary muscles, head and neck M79.12 ; Postlaminectomy syndrome, not elsewhere classified M96.1 ; Unspecified abnormalities of gait and mobility R26.9 and buttermaker continuous churn (current) use of opiate analgesic Z79.891 [facility] [address] [address] 08/24/2024 Deedee Villarreal Chronic pain syndrom e G89.4 ; Other spondylosis with radiculopathy, cervical region M47.22 ; Myalgia of auxiliary muscles, head and neck M79.12 ; Unspecified abnormalities of gait and mobility R26.9 ; Postlaminectomy syndrome, not elsewhere classified M96.1 ; Other cervical disc degeneration, unspecified cervical region M50.30 and buttermaker continuous churn (current) use of opiate analgesic Z79.891 [facility] [address] [address] 10/05/2024 Deedee Villarreal Chronic pain syndrom e G89.4 ; Other spondylosis with radiculopathy, cervical region M47.22 ; Myalgia of auxiliary muscles, head and neck M79.12 ; Unspecified abnormalities of gait and mobility R26.9 ; Postlaminectomy syndrome, not elsewhere classified M96.1 ; Other cervical disc degeneration, unspecified cervical region M50.30 and USP (current) use of opiate analgesic Z79.891 [facility] [address] [address] 11/27/2024 Deedee Villarreal Chronic pain syndrom e G89.4 ; Other spondylosis with radiculopathy, cervical region M47.22 ; Myalgia of auxiliary muscles, head and neck M79.12 ; Unspecified abnormalities of gait and mobility R26.9 ; Postlaminectomy syndrome, not elsewhere classified M96.1 ; Other cervical disc degeneration, unspecified cervical region M50.30 and buttermaker continuous churn (current) use of opiate analgesic Z79.891 [facility] 0 02/05/2024 Provider Migration [facility] 0 0 02/06/2024 Provider Migration [facility] [address] [place] [address] 01/11/2024 Judah Shelton [facility] [place] [address] [address] 02/08/2024 Paxton Nobles [facility] [place] [address] [address] 03/30/2024 Rajesh Serna [facility] [address] [place] [address] 03/30/2024 Mode Cabello [facility] [place] [address] [address] 04/10/2024 Rajesh Serna Cervical paraspinal muscle spasm M62.838 ; Degenerative disc disease, cervical M50.30 ; Cervical radiculopathy M54.12 ; Pain in left upper arm M79.622 and Pain in right upper arm M79.621 [facility] [place] [address] [place] [address] 05/17/2024 Mode Cabello [facility] [place] [address] [place] [address] 06/05/2024 Mode Cabello Other spondylosis with radiculopathy, cervical region M47.22 [facility] [place] [address] [place] [address] 06/22/2024 Mode Cabello Chronic pain syndrom e G89.4 and Other spondylosis with radiculopathy, cervical region M47.22 [facility] [place] [address] [place] [address] 07/10/2024 Deedee Villarreal [facility] [address] [place] [address] 08/17/2024 Mode Cabello [facility] [place] [address] [place] [address] 08/24/2024 Mode Cabello Other spondylosis with radiculopathy, cervical region M47.22 [facility] [place] [address] [place] [facility] [address] 10/05/2024 Desiree Harrisonutova-Pric e Other spondylosis with radiculopathy, cervical region M47.22 [facility] [place] [address] [place] [facility] [address] 11/27/2024 Desiree Macuksyutova-Pric e Other spondylosis with radiculopathy, cervical region M47.22 [facility] [place] [address] [place] [facility] [address] 04/14/2024 Mode Cabello [facility] [address] [place] [address] 05/30/2024 Deedee Villarreal Assessments Encounter Date Diagnosis [...] effects are noted. Last UDS and [place] DRY PRESS OPERATOR HELPER reviewed today. Patient is advised that best [...] effects are noted. Last UDS and [place] DRY PRESS OPERATOR HELPER reviewed today. Patient is advised that best [...] unspecified cervical region (ICD-10 - M50.30) 08/24/2024 buttermaker continuous churn (current) use of opiate analgesic (ICD-10 - [...] effects are noted. Last UDS and [place] DRY PRESS OPERATOR HELPER reviewed today. Patient is advised that best [...] of opiate analgesic (ICD-10 - Z79.891) 06/22/2024 buttermaker continuous churn (current) use of opiate analgesic (ICD-10 - [...] of opiate analgesic (ICD-10 - Z79.891) 11/27/2024 buttermaker continuous churn (current) use of opiate analgesic (ICD-10 - [...] appointment. She will plan to follow-up in [place] as per her request in approximately 2 [...] per Dr. Abhishek Canela, Vacular Surgeon in [place] after stent placement in the lower extremities. [...] Name Order Date Cervical Spine AP/Lat 2-3 Views-20196 zzzCT Outside CD 06/20/2024 Schedule Confirmation 03/06/2024 Schedule Confirmation 03/06/2024 Schedule Confirmation 04/25/2024 Schedule Confirmation 04/25/2024 Future Test Test Name Order Date Implant Spinal Cord Stimulator Trial - 6 3650 05/25/2024 Next Appt Details Provider Name:Mode Cabello, 01/31/2025 01:20:00 PM, [address] [facility] [place], [address], Insurance Providers Payer Name Payer Address Payer Phone Subscriber Number Group Number Insured Name Patient Relationship to Insured Coverage Start Date Coverage End Date [place] Medicare [address] [place] [phone] [id number] BARRY VAN Self - patient is the insured [place] [address] [place] [phone] [id number] BARRY VAN Self - patient is the insured [place] Medicare [address] [address] [place] [address] [phone] [id number] BARRY VAN Self - patient is the insured Medical (General) History Surgical History Surgery Date(Month/Year) appendectomy Breast biopsy section Hernia surgery Hysterectomy Jaw surgeries left ankle surgery Neck surgeries
--- OUTSIDE RECORDS SUMMARY | 2024-12-27 09:02 | XMS_ITS | Clinical Summary ---
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
--- OUTSIDE RECORDS SUMMARY | 2024-12-27 09:03 | XMS_ITS | Patient Health Record ---
Author Organization 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 Name Role Phone VeeMadeline myersne Primary Care Provider El Brewer [phone] Allergies Allergen (clinical drug ingredient) Drug/Non Drug [...] Status Risk Notes Problem Shortness of breath (908835990) Shortness of breath (R06.02) Active confirmed Problem Anxiety (32140090) Anxiety (F41.9) Active confirmed Problem Abnormal PFT: MV V reduced disproportionate to FEV1 (R94.2) Active confirmed Problem Peripheral edema (47853955) Peripheral edema (R60.9) Active confirmed Problem Restless legs syndrome (21851976) Restless leg syndrome (G25.81) Active confirmed Problem Pulmonary hypertension (14302513) Pulmonary hypertension (I27.20) Active confirmed Problem Benign neoplasm of cerebral meninges (58653889) Meningioma (D32.9) Active confirmed Problem Hypokalemia (76334894) 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) Active confirmed Problem 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
--- OUTSIDE RECORDS SUMMARY | 2024-12-27 09:03 | XMS_ITS | Patient Health Record ---
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 Name Role Phone Desiree Gaming MD Primary Care Provider Unavailab Srinivasan Wilcox Unavailable [phone] Reason For Referral No Information Medications Medication [...] 50 MG Tablet Oral 03/23/2017 Active Creon 57859 UNIT Capsule Delayed Release Particles Oral 04/07/2017 Active Creon 87406 UNIT Capsule Delayed Release Particles Oral 02/18/2017 [...] End Date Medicare [place] MC01 [address] [place] [address] [id number] BARRY VAN Self - patient is the insured Medical (General) History Surgical History Surgery Date(Month/Year) Hysterectomy ,Status : Resolved Gastric Surgery ,Status : Resolved Cataract Surgery ,Status : Resolved Appendectomy ,Status : Resolved Foot Surgery ,Status : Resolved Cholecystectomy ,Status : Resolved Eye Surgery ,Status : Resolved Breast Surgery ,Status : Resolved
--- NOTE | 2024-12-27 09:16 | W.ED.CHESTPA ---
HPI - Chest Pain General: Chief Complaint: Chest Pain Stated Complaint: CP brodericks in 12/25 SOB Time Seen by Provider: 12/27/24 08:59 History of Present Illness: 69-year-old female with known history of coronary disease recently had angiography with overlapping stents in the circumflex resulting in a jailed obtuse marginal branch because of the character of the lesion. She has been taking her anticoagulation including her Plavix regularly which she developed chest pain this morning after awakening she had some mild relief with nitro. She is still having some chest discomfort. Associated symptoms: Deny abdominal pain, dyspnea or fever(s) Related Data Home Medications ?Medication ?Instructions ?Recorded ?Confirmed fluticasone propionate 50 1 spray intranasal BID PRN 09/27/23 12/27/24 mcg/actuation nasal allergies spray,suspension gabapentin 300 mg capsule 300 mg PO TID 09/27/23 12/27/24 oxycodone 10 mg tablet 10 mg PO Q8H PRN Pain 12/29/23 12/27/24 promethazine 12.5 mg tablet 12.5 mg PO Q8H PRN Nausea 11/04/24 12/27/24 ramelteon 8 mg tablet 8 mg PO BEDTIME 12/24/24 12/27/24 alprazolam 0.25 mg tablet (Xanax) 0.5 mg PO DAILY PRN anxiety 12/27/24 12/27/24 furosemide 80 mg tablet 80 mg PO DAILY 12/27/24 12/27/24 levothyroxine 125 mcg tablet 125 mcg PO DAILY 12/27/24 12/27/24 Previous Rx's ?Medication ?Instructions ?Recorded Bone growth stimulator #1 ea 01/22/23 Bone growth stimulator #1 ea 02/05/23 tens unit for cervical #1 ea 12/16/23 albuterol sulfate 90 mcg/actuation 1 puff inhalation Q6H PRN 12/20/23 aerosol inhaler Shortness Of Breath #6.7 grams insulin syringes (disposable) 1 mL #25 ea 05/30/24 methotrexate sodium 25 mg/mL 20 mg (0.8 mL) SUBCUT .Q7days #10 05/30/24 injection solution mL ropinirole 5 mg tablet 5 mg PO BID #270 tabs 10/25/24 baclofen 10 mg tablet 5 mg (1/2 x 10 mg) PO Q12H PRN 11/07/24 Muscle Spasm #30 tabs aspirin 81 mg tablet,delayed 81 mg PO DAILY 30 days #30 tabs 12/26/24 release atorvastatin 40 mg tablet 40 mg PO BEDTIME 30 days #30 tabs 12/26/24 clopidogrel 75 mg tablet 75 mg PO DAILY 30 days #30 tabs 12/26/24 nitroglycerin 0.4 mg sublingual 0.4 mg sublingual Q5M PRN Chest 12/26/24 tablet Pain 30 days #30 tabs pantoprazole 40 mg tablet,delayed 40 mg PO Q12H 30 days #60 tabs 12/26/24 release (Protonix) potassium chloride 20 mEq 20 meq PO DAILY #30 tabs 12/26/24 tablet,extended release sucralfate 1 gram tablet 1 g PO BID 30 days #60 tabs 12/26/24 Allergies Allergy/AdvReac Type Severity Reaction Status Date / Time venlafaxine (From Effexor) Allergy Severe ADR-Agitate Verified 12/27/24 13:57 d ibuprofen Allergy Unknown ADR-Anxiety Verified 09/23/24 04:24 tizanidine Allergy Unknown Unknown Verified 09/23/24 04:24 acetaminophen Allergy ADR-Anxiety Verified 09/23/24 04:24 amitriptyline Allergy ADR-Agitate Verified 09/23/24 04:24 d diphenhydramine (From Allergy ADR-Agitate Verified 09/23/24 04:24 Benadryl) d morphine Allergy ADR-Halluci Verified 09/23/24 04:24 nating prochlorperazine (From Allergy Unknown Verified 09/23/24 04:24 Compazine) leflunomide AdvReac Intermediate GI adverse Verified 09/23/24 04:24 reactions sulfasalazine AdvReac Intermediate ADR-Nausea Verified 09/23/24 04:24 and acid reflux Review of Systems Const: Denies: fever(s) or chills Card: Denies: chest pain Resp: Denies: dyspnea GI: Denies: abdominal pain : Denies: dysuria, urinary frequency or urinary urgency Musc: Denies: neck pain or back pain Skin/Breast: Denies: rash PFSH ED PFSH: Medical History Coronary artery disease Pneumonia DVT (deep venous thrombosis) Acute GI bleeding History of deep vein thrombosis GERD (gastroesophageal reflux disease) Pre-operative clearance Acute anemia Hematoma complicating a procedure Cervical adenopathy GI bleed Osteoarthritis, shoulder Cervical spondylosis with myelopathy GERD with esophagitis Allergic rhinitis due to allergen RLS (restless legs syndrome) Substance or medication-induced sleep disorder, insomnia type Anxiety and depression High risk medication use Seropositive rheumatoid arthritis of multiple sites Extrapyramidal and movement disorder CKD (chronic kidney disease) stage 3, GFR 30-59 ml/min Lung nodule, solitary Prediabetes Hyperlipidemia Iron deficiency anemia Hypothyroidism Surgical History S/P insertion of IVC (inferior vena caval) filter Status post cervical spinal fusion History of cholecystectomy History of appendectomy History of delivery History of hysterectomy with bilateral oophorectomy History of ankle surgery left Previous back surgery Social History Smoking and tobacco/nicotine status: former use of tobacco/nicotine Quit status (tobacco/nicotine): has quit using Year quit tobacco: 2009 Former quit date comment: Smoked for 9 months Alcohol intake: current Alcohol intake frequency: holidays/special occasions only Substance/Drug Use: never Physical Exam Const: COMMON NORMALS: no acute distress GENERAL APPEARANCE: cooperative and comfortable ORIENTATION/CONSCIOUSNESS: Yes awake, Yes oriented to person, Yes oriented to place and Yes oriented to time HENMT: COMMON NORMALS: normocephalic, atraumatic and hearing grossly normal bilaterally HEAD & SCALP: normocephalic and atraumatic Resp: COMMON NORMALS: normal respiratory effort, No retractions, No use of accessory muscles and clear to auscultation bilaterally AUSCULTATION: clear to auscultation bilaterally Cardio: COMMON NORMALS: regular rate, regular rhythm and No murmurs present (Cardio) RATE: regular rate RHYTHM: regular rhythm GI: COMMON NORMALS: Soft to palpation and No hepatosplenomegaly present AUSCULTATION: Yes normoactive bowel sounds PALPATION: Yes Soft to palpation, No Tenderness to palpation present (GI), No Guarding due to palpation present (GI) and Yes No hepatosplenomegaly present Extremity: COMMON NORMALS: normal to inspection, capillary refill normal, no clubbing, cyanosis or edema, no calf tenderness and no pedal edema Neuro: SENSORIUM/ORIENTATION: Yes oriented to person, Yes oriented to place and Yes oriented to time Skin: COMMON NORMALS: no rashes or lesions noted GENERAL SKIN EXAM: no rashes or lesions noted Course Vital Signs: Vital signs: Vital Signs Temperature 97.8 F 12/27/24 09:00 Pulse Rate 63 12/27/24 10:42 Respiratory Rate 22 H 12/27/24 10:15 Blood Pressure 124/59 12/27/24 10:42 Pulse Oximetry 99 12/27/24 10:42 Oxygen Delivery Me thod Room Air 12/27/24 10:15 MDM - Chest Pain Medical Decision Making Patient did have improvement with nitro but still has some residual chest pain initial troponin 805 which is markedly elevated which she had previously. Patient was placed on heparin drip and nitro drip. Discussed with Dr. Ibarra and consulted him given the patient's lab findings. EKGs did not show any acute changes. Dr. Mckinley is seen the patient in the emergency room and is recommending going directly to the Pulp Machine Operator for unstable angina with an NSTEMI. Medical Records Date of procedure: 12/24/24 Pre-procedure diagnosis: [id number] ME Post-procedure diagnosis: same Procedure: Left heart catheter was performed Left main: No significant disease LAD: No significant disease with luminal irregularity LCx is a dominant vessel with high-grade 99% mid tandem stenosis, obtuse marginal 1 is a moderate size and caliber long branch with ostial moderate stenosis. RCA is nondominant small caliber vessel with a mid 50% stenosis Culprit vessel is mid 99% occluded circumflex. It was treated with 2 overlapping drug-eluting stents, we have to jailed the obtuse marginal branch because of the extension of lesion into it. We again recross with a wire into the jailed branch and dilated the ostium of the obtuse marginal 1 as well. Excellent angiographic result with DARRYN-3 flow was confirmed at the end of the case. Lab Data 12/27/24 09:15 12/27/24 09:15 Radiology Impressions Chest X-Ray 12/27/24 09:00 IMPRESSION: Stable chest without acute abnormality. Mild cardiomegaly Laboratory Results WBC 4.45 10^3/uL (3.29-11.43) 12/27/24 09:15 RBC 3.89 10^6/uL (3.85-5.65) 12/27/24 09:15 Hgb 10.80 g/dL (11.27-16.99) L 12/27/24 09:15 Hct 33.5 % (36-47) L 12/27/24 09:15 MCV 86.1 fl (85-98) 12/27/24 09:15 MCH 27.8 pg (27-33) 12/27/24 09:15 MCHC 32.2 g/dL (30-55) 12/27/24 09:15 RDW 17.1 % (12.1-15.1) H 12/27/24 09:15 Plt Count 245 10^3/cmm (157-399) 12/27/24 09:15 MPV 9.5 fL (7.4-10.4) 12/27/24 09:15 Neut % (Auto) 42.2 % 12/27/24 09:15 Lymph % (Auto) 33.7 % 12/27/24 09:15 [place] % (Auto) 18.7 % 12/27/24 09:15 Eos % (Auto) 4.3 % 12/27/24 09:15 Baso % (Auto) 0.9 % 12/27/24 09:15 Neut # (Auto) 1.88 10^3/uL (1.8-7.7) 12/27/24 09:15 Lymph # (Auto) 1.5 10^3/uL (0.8-4.8) 12/27/24 09:15 [place] # (Auto) 0.8 10^3/uL (0.2-0.9) 12/27/24 09:15 Eos # (Auto) 0.2 10^3/uL (0.0-0.8) 12/27/24 09:15 Baso # (Auto) 0.0 10^3/uL (0.0-0.1) 12/27/24 09:15 Nucleated RBC % (auto) 0 % 12/27/24 09:15 Nucleated RBCs # 0.0 /100WBC 12/27/24 09:15 Sodium 141 mmol/L (136-145) 12/27/24 09:15 Potassium 4.0 mmol/L (3.5-5.1) 12/27/24 09:15 Chloride 105 mmol/L (98-107) 12/27/24 09:15 Carbon Dioxide 24 mmol/L (22-29) 12/27/24 09:15 Anion Gap 16.0 (5-19) 12/27/24 09:15 BUN 19 mg/dL (8-23) 12/27/24 09:15 Creatinine 1.0 mg/dL (0.5-0.9) H 12/27/24 09:15 GFR Calculation 54.8 mL/min (90-130) L 12/27/24 09:15 Glucose 101 mg/dL (65-115) 12/27/24 09:15 Calculated Osmolality 294 mOsm/kg (285-295) 12/27/24 09:15 Calcium 8.5 mg/dL (8.5-10.5) 12/27/24 09:15 Total Bilirubin 0.2 mg/dL (0.15-1.2) 12/27/24 09:15 AST 13 U/L (0-32) 12/27/24 09:15 ALT 13 U/L (0-33) 12/27/24 09:15 Alkaline Phosphatase 147 U/L (35-105) H 12/27/24 09:15 Troponin T Baseline 803 ng/L (0-10) H* 12/27/24 09:15 Total Protein 7.1 g/dL (6.6-8.7) 12/27/24 09:15 Albumin 3.8 g/dL (3.5-5.2) 12/27/24 09:15 Globulin 3.3 g/dL (1.3-4.6) 12/27/24 09:15 All radiology interpretation(s) finalized by discharge EKG Data EKG 1: Interpretation: 12/27/2024 858 sinus rhythm rate of 64 [place] interval [address]Tc [address] No acute ST changes. There is inverted T waves in [address] elevation or depression. EKG 2: Interpretation: 12/27/2024 858 sinus rhythm with a rate of 64 QT C421. Inverted T waves in 2 and aVF. There is slight ST depression in V4 and 5. Discharge Plan Discharge Patient Disposition: Admitted As Inpatient Admit Provider: Chava Mckinley Clinical Impression: Non-ST elevation [place] (NSTEMI), Unstable angina Condition: Stable Coding Level of Care Code ED [employer] Station Supervisor for Maribel Sweet
[2024-12-27 09:25] LABS: Hematocrit 33.5 % (36-47); Hemoglobin 10.80 g/dL (11.27-16.99); Mean Corpuscular HGB Conc 32.2 g/dL (30-55); Mean Corpuscular Hemoglobin 27.8 pg (27-33); Mean Corpuscular Volume 86.1 fl (85-98); Nucleated Red Blood Cells % 0 %; Platelet Count 245 10^3/cmm (157-399); Red Blood Count 3.89 10^6/uL (3.85-5.65); White Blood Count 4.45 10^3/uL (3.29-11.43)
[2024-12-27] MEDS: ondansetron 2 mg/ML SDV 2 mL 4 MG IVP (09:38)
[2024-12-27] MEDS: morphine 4 mg/mL SDV 1 mL 2 MG IVP ×2 (09:40→10:07)
[2024-12-27] MEDS: nitroglycerin 1 gm/inch oint Pkt 0.5 INCH TOPICAL (09:41)
[2024-12-27 09:44] LABS: Alanine Aminotransferase 13 U/L (0-33); Albumin Level 3.8 g/dL (3.5-5.2); Alkaline Phosphatase 147 U/L (35-105); Blood Urea Nitrogen 19 mg/dL (8-23); Calcium 8.5 mg/dL (8.5-10.5); Carbon Dioxide 24 mmol/L (22-29); Chloride 105 mmol/L (98-107); Creatinine Clr Calc Pharmacy 47.9633; Globulin 3.3 g/dL (1.3-4.6); Glucose 101 mg/dL (65-115); Osmolality Calculated 294 mOsm/kg (285-295); Sodium 141 mmol/L (136-145); Total Protein 7.1 g/dL (6.6-8.7)
[2024-12-27 09:45] LABS: Troponin(5th) Baseline 803 ng/L (0-10)
[2024-12-27 09:47] LABS: Anion Gap 16.0 (5-19); Aspartate Amino Transferase 13 U/L (0-32); Potassium 4.0 mmol/L (3.5-5.1)
--- NOTE | 2024-12-27 09:56 | PC.NURSE ---
removed nitro paste & cleansed area @[phone]
[2024-12-27] MEDS: nitroglycerin drip 50 MG/250 ML PREMIX IV (10:09)
[2024-12-27] MEDS: heparin 5,000 unit/mL INJ 1 mL IVP (10:11)
[2024-12-27] MEDS: heparin drip 25,000 UNIT/500 ML PREMIX 17 UNIT IV (10:14)
--- NOTE | 2024-12-27 10:28 | P.HP_ITS ---
<Statement entered by Chava Mckinley M.D - 12/30/24 10:16> Patient was cared for in conjunction with an advanced practice practitioner.? I reviewed the chart and all pertinent data including imaging, telemetry, and laboratory results.? I discussed the patient in detail with the advanced practice practitioner.? Please see?their note for history and physical, testing results and agreed upon plan of care for the patient. Providers/Chief Complaint 2 Admitting Physician: Dr Mckinley, interventional cardiology Primary Care Provider: Diana Garcia Chief Complaint: CP nancy in 12/25 SOB History of Present Illness Tosha Perry is a 69 year old female with past medical history of IVC filter, GI bleed, DVT, PAD s/p left leg stent, iron deficiency anemia, CKD, hypothyroidism, spinal stenosis with chronic posterior neck pain, CAD admitted 12/24/24 with chest pain elevated troponin (peak 110) underwent TOMMIE x 2 to the left circumflex, jailed the OM, treated with ostial OM1 balloon angioplasty. She recovered well after procedure, chest pain had resolved until last night when she began having a sharp burning pain in the left chest. It resolved for a time and returned again this morning, with radiation up into the jaw, and is present now. She has some ST depression in the lateral leads, baseline troponin 803. She has heparin and nitroglycerin infusion running now. LVEF last admission was 70%. Review of Systems 2 Const: Denies: fever(s), chills, change in weight, fatigue or diaphoresis Eyes: Denies: change in vision ENMT: Denies: epistaxis Card: Reports: chest pain; Denies: palpitations, irregular heart rhythm, edema, syncope, pre-syncope, dyspnea on exertion, orthopnea or leg pain with exertion Resp: Denies: dyspnea, productive cough or wheezing GI: Denies: nausea, vomiting, hematemesis, hematochezia or melena : Denies: hematuria Musc: Denies: extremity swelling Jl/Lymph: Denies: easy bruising or easy bleeding Medications/Allergies Home Medications ?Medication ?Instructions ?Recorded ?Confirmed ?Last Taken ?Type levothyroxine 112 mcg tablet 112 mcg PO QAM low thyroi d #90 tabs 10/15/22 12/24/24 11/03/24 Rx Bone growth stimulator #1 ea 01/22/23 12/24/24 Unkn own Rx Bone growth stimulator #1 ea 02/05/23 12/24/24 Unkn own Rx fluticasone propionate 50 1 spray intranasal BID PRN 0 09/27/23 12/24/24 12/23/24 History mcg/actuation nasal allergies spray,suspension gabapentin 300 mg capsule 300 mg PO TID 09/27/2312/2411/03/24 History tens unit for cervical #1 ea 12/16/23 12/24/24 Unkn own Rx albuterol sulfate 90 mcg/actuation 1 puff inhalation Q 6H PRN 12/20/23 12/24/24 Unknown Rx aerosol inhaler Shortness Of Breath #6.7 gra ms oxycodone 10 mg tablet 10 mg PO Q8H PRN Pain 12/24/24 12/23/24 History insulin syringes (disposable) 1 mL #25 ea 05/30/24 Unknown Rx methotrexate sodium 25 mg/mL 20 mg (0.8 mL) SUBCUT .Q7 days #10 05/30/24 12/24/24 10/30/24 Rx injection solution mL venlafaxine 75 mg capsule,extended 75 mg PO DAILY 10/1012/24/24 12/23/24 History release 24 hr ropinirole 5 mg tablet 5 mg PO BID #270 tabs 12/24/24 12/23/24 Rx promethazine 12.5 mg tablet 12.5 mg PO Q8H PRN Nausea 11/04/24 12/24/24 Unknown History baclofen 10 mg tablet 5 mg (1/2 x 10 mg) PO Q12H P RN 11/07/24 12/24/24 12/23/24 Rx Muscle Spasm #30 tabs furosemide 80 mg tablet 40 mg (1/2 x 80 mg) PO DAILY #30 11/07/24 12/24/24 12/23/24 Rx tabs ramelteon 8 mg tablet 8 mg PO BEDTIME 12/24/2412/23/24 History alprazolam 0.25 mg tablet (Xanax) 0.25 mg PO DAILY PRN anxiety 5 12/26/24 Unknown Rx days #5 tabs aspirin 81 mg tablet,delayed 81 mg PO DAILY 30 days #3 0 tabs 12/26/24 Unknown Rx release atorvastatin 40 mg tablet 40 mg PO BEDTIME 30 days #30 tabs 12/26/24 Unknown Rx clopidogrel 75 mg tablet 75 mg PO DAILY 30 days #30 t abs 12/26/24 Unknown Rx nitroglycerin 0.4 mg sublingual 0.4 mg sublingual Q5M PRN Chest 12/26/24 Unknown Rx tablet Pain 30 days #30 tabs pantoprazole 40 mg tablet,delayed 40 mg PO Q12H 30 day s #60 tabs 12/26/24 Unknown Rx release (Protonix) potassium chloride 20 mEq 20 meq PO DAILY #30 tabs 12/24/24 12/23/24 Rx tablet,extended release sucralfate 1 gram tablet 1 g PO BID 30 days #60 tabs 12/26/24 Unknown Rx Allergies Allergy/AdvReac Type Severity Reaction Status Date / Time ibuprofen Allergy Unknown ADR-Anxiety Verified 09/23/24 04:24 tizanidine Allergy Unknown Unknown Verified 09/23/24 04:24 acetaminophen Allergy ADR-Anxiety Verified 09/23/24 04:24 amitriptyline Allergy ADR-Agitate Verified 09/23/24 04:24 d diphenhydramine (From Allergy ADR-Agitate Verified 09/23/24 04:24 Benadryl) d morphine Allergy ADR-Halluci Verified 09/23/24 04:24 nating prochlorperazine (From Allergy Unknown Verified 09/23/24 04:24 Compazine) leflunomide AdvReac Intermediate GI adverse Verified 09/23/24 04:24 reactions sulfasalazine AdvReac Intermediate ADR-Nausea Verified 09/23/24 04:24 and acid reflux PFSH Acute 2 PFSH: Medical History Coronary artery disease Pneumonia DVT (deep venous thrombosis) Acute GI bleeding History of deep vein thrombosis GERD (gastroesophageal reflux disease) Pre-operative clearance Acute anemia Hematoma complicating a procedure Cervical adenopathy GI bleed Osteoarthritis, shoulder Cervical spondylosis with myelopathy GERD with esophagitis Allergic rhinitis due to allergen RLS (restless legs syndrome) Substance or medication-induced sleep disorder, insomnia type Anxiety and depression High risk medication use Seropositive rheumatoid arthritis of multiple sites Extrapyramidal and movement disorder CKD (chronic kidney disease) stage 3, GFR 30-59 ml/min Lung nodule, solitary Prediabetes Hyperlipidemia Iron deficiency anemia Hypothyroidism Surgical History S/P insertion of IVC (inferior vena caval) filter Status post cervical spinal fusion History of cholecystectomy History of appendectomy History of delivery History of hysterectomy with bilateral oophorectomy History of ankle surgery left Previous back surgery Social History Smoking and tobacco/nicotine status: former use of tobacco/nicotine Quit status (tobacco/nicotine): has quit using Year quit tobacco: 2009 Former quit date comment: Smoked for 9 months Alcohol intake: current Alcohol intake frequency: holidays/special occasions only Substance/Drug Use: never Vitals/I&O/Wt Last Vital Signs Temp 97.8 F 12/27/24 09:00 Pulse 50 L 12/27/24 10:15 Resp 22 H 12/27/24 10:15 BP 124/59 12/27/24 10:15 Pulse Ox 96 12/27/24 10:15 O2 Del Method Room Air 12/27/24 10:15 Weight last 48 hrs Weight 139 lb Physical Exam 2 Const: COMMON NORMALS: no acute distress and patient oriented x3 GENERAL APPEARANCE: cooperative and comfortable ORIENTATION/CONSCIOUSNESS: Yes awake, Yes oriented to person, Yes oriented to place and Yes oriented to time Chest: COMMONS NORMALS: normal inspection of the chest and normal palpation of entire chest wall CHEST: Yes Symmetrical chest wall rise Resp: COMMON NORMALS: normal respiratory effort, No retractions, No use of accessory muscles and clear to auscultation bilaterally EFFORT & INSPECTION: Yes symmetric chest movement AUSCULTATION: clear to auscultation bilaterally Cardio: COMMON NORMALS: regular rate, regular rhythm, S1 normal heart sound present, S2 normal heart sound present, No gallops present (Cardio), No clicks present (Cardio), No murmurs present (Cardio) and No rub (Cardio) RATE: b radycardic RHYTHM: regular rhythm HEART SOUNDS: S1 normal heart sound present and S2 normal heart sound present PERIPHERAL PULSES: radial pulses present Extremity: COMMON NORMALS: no pedal edema Neuro: COMMON NORMALS: patient oriented x3 and moves all extremities S ENSORIUM/ORIENTATION: Yes oriented to person, Yes oriented to place and Yes oriented to time Data 12/27/24 09:15 12/27/24 09:15 A&P Assessment and plan 1. Unstable angina: 2. Coronary artery disease: 3. Non-ST elevation [place] (NSTEMI): 4. Bradycardia: 5. Diastolic congestive heart failure: 6. Anemia: Plan: She has NSTEMI with unstable angina presentation, acute ST changes, active chest pain. Will proceed with coronary angiogram urgently, risks and benefits of procedure including risk of bleeding and contrast induced nephropathy, she is willing to proceed. Continue heparin and nitroglycerin. Will consult hospitalist for medical management of other noncardiac medical problems. Plan limited echocardiogram to assess LVEF. PDMP PDMP Reviewed: Not Reviewed Attestations 2 Medical Necessity Statement*: high risk NSTEMI, unstable angina, [facility] Coding Level of Care Code Acute Code for [facility] Fwd Diagnoses Unstable angina I20.0 Coronary artery disease I25.10 Non-ST elevation [place] (NSTEMI) I21.4 Bradycardia R00.1 Diastolic congestive heart failure I50.30 Anemia D64.9
--- NOTE | 2024-12-27 10:41 | PC.NURSE ---
heparin gtt discontinued by CCL team
--- NOTE | 2024-12-27 10:43 | PC.PHAR ---
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
--- NOTE | 2024-12-27 10:46 | W.PM.OPSUD ---
Surgery/Procedure H&P Update DATE OF PROCEDURE: December 27, 2024 DATE H&P PERFORMED: 12/27/24 H&P UPDATE INFORMATION: I have reviewed H&P completed within last 30 days, I have examined patient prior to procedure and No changes to prior documentation PREOP DIAGNOSIS: NSTEMI PRIMARY INDICATION FOR PROCEDURE: NSTEMI PLANNED PROCEDURE: Left heart cath with possible percutaneous coronary intervention PATIENT REASSESSED PRIOR TO SEDATION, WITH NO CHANGE NOTED: Yes PHYSICAL EXAM: alert, oriented x 3, clear to auscultation bilaterally and regular rate & rhythm AIRWAY EVAL/ANESTHESIA PLAN: normal airway, ASA III, Local Anesthesia, Risks, benefits & alternatives of sedation and/or procedure discussed and Patient agrees to continue as planned ADDITIONAL INFORMATION: Moderate sedation
--- NOTE | 2024-12-27 11:00 | ECG_ITS ---
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 Measurements Intervals [place] Rate: 55 P: 50 NE: 198 QRS: 16 QRSD: 73 T: 3 QT: 435 QTc: 419 Interpretive Statements SINUS BRADYCARDIA LOW QRS VOLTAGE IN PRECORDIAL LEADS [QRS DEFLECTION < 1.0 mV IN CHEST LEADS] SEPTAL MYOCARDIAL INFARCTION , OF INDETERMINATE AGE [40+ ms Q WAVE IN V1/V2] Compared to ECG 12/27/2024 08:58:39 Sinus rhythm no longer present Myocardial infarct finding still present Electronically Signed On 12-27-2024 13:54:51 CDT by Sherine Greene M.D. [email or web address]
--- NOTE | 2024-12-27 12:30 | PM.PROC ---
Procedure Note: Date of procedure: 12/27/24 Pre-procedure diagnosis: NSTEMI Post-procedure diagnosis: other Procedure: Patent prior left circumflex artery stents. LAD has moderate 50-60% stenosis. S/p iFR that was abnormal with step up in proximal to mid vessel. S/p PCI with 2 stents, optimized with IVUS. Dual antiplatelet therapy with aspirin and plavix High intensity statin therapy Performing Provider: Chava Mckinley Complications: None Condition: stable Disposition: floor Coding Level of Care Code Acute Code for Maribel Sweet
--- NOTE | 2024-12-27 12:44 | PM.CONSULT ---
Providers/Reason For Consult Consulting Physician/Specialty*: Hospitalist Reason for Consult*: Medical management Attending Physician: Chava Mckinley M.D Primary Care Provider: Diana Garcia History of Present Illness History of Present Illness Tosha Perry is a 69 year old female with a history of coronary artery disease with recent percutaneous coronary intervention (PCI) to the left circumflex artery (LCX), deep vein thrombosis (DVT), gastrointestinal (GI) bleed/peptic ulcer disease (PUD), chronic kidney disease (CKD), hyperlipidemia (HLD), gastroesophageal reflux disease (GERD), restless legs syndrome (RLS), anxiety and depression, seropositive rheumatoid arthritis, prediabetes, and iron deficiency anemia, presents with persistent chest pain this morning that did not resolve with nitroglycerin. Describes the chest pain as feeling like ?an elephant sitting on my chest,? persistent since waking, not clearly worsened by breathing or coughing. Reports a very tender spot on the chest when pressed. Notes right arm pain at the site of a prior IV infiltration with a ?knot? that has been improving with massage. Reports inability to urinate despite the urge. Endorses significant anxiety. Reports vomiting last night. Denies fever, chills, sore throat, sneezing, cough-related worsening today (though notes coughing episodes previously), nausea at the time of interview, or diarrhea. States no recent fall. Reports prior leg swelling and a history of a ?black clot? in the knee after neck surgeries approximately two years ago, with a stent placed in the left leg. Denies current smoking, alcohol, or illicit drug use; former smoker (previously about one pack every three weeks, quit long ago). No home oxygen use. Possible obstructive sleep apnea has been suspected; reports poor sleep. Review of Systems Const: Denies: fever(s), chills, body aches or malaise ENMT: Denies: throat pain Card: Reports: chest pain; Denies: edema, pre-syncope or dyspnea on exertion Resp: Reports: productive cough; Denies: dyspnea, change in phlegm color or hemoptysis GI: Denies: abdominal pain, nausea, vomiting, diarrhea, constipation, hematochezia or melena : Reports: urinary urgency; Denies: flank pain or hematuria Musc: Reports: back pain and extremity pain (R forearm at infiltrated IV); Denies: joint swelling or joint redness Skin/Breast: Denies: rash or new lesions Neuro: Reports: headache(s); Denies: confusion Medications/Allergies Home Medications ?Medication ?Instructions ?Recorded ?Confirmed ?Last Taken ?Type levothyroxine 112 mcg tablet 112 mcg PO QAM low thyroid #90 tabs 10/15/22 12/24/24 11/03/24 Rx Bone growth stimulator #1 ea 01/22/23 12/24/24 Unknown Rx Bone growth stimulator #1 ea 02/05/23 12/24/24 Unknown Rx fluticasone propionate 50 1 spray intranasal BID PRN 09/27/23 12/24/24 12/23/24 History mcg/actuation nasal allergies spray,suspension gabapentin 300 mg capsule 300 mg PO TID 09/27/23 12/24/24 11/03/24 History tens unit for cervical #1 ea 12/16/23 12/24/24 Unknown Rx albuterol sulfate 90 mcg/actuation 1 puff inhalation Q6H PRN 12/20/23 12/24/24 Unknown Rx aerosol inhaler Shortness Of Breath #6.7 grams oxycodone 10 mg tablet 10 mg PO Q8H PRN Pain 12/29/23 12/24/24 12/23/24 History insulin syringes (disposable) 1 mL #25 ea 05/30/24 12/24/24 Unknown Rx methotrexate sodium 25 mg/mL 20 mg (0.8 mL) SUBCUT .Q7days #10 05/30/24 12/24/24 10/30/24 Rx injection solution mL venlafaxine 75 mg capsule,extended 75 mg PO DAILY 10/24/24 12/24/24 12/23/24 History release 24 hr ropinirole 5 mg tablet 5 mg PO BID #270 tabs 10/25/24 12/24/24 12/23/24 Rx promethazine 12.5 mg tablet 12.5 mg PO Q8H PRN Nausea 11/04/24 12/24/24 Unknown History baclofen 10 mg tablet 5 mg (1/2 x 10 mg) PO Q12H PRN 11/07/24 12/24/24 12/23/24 Rx Muscle Spasm #30 tabs furosemide 80 mg tablet 40 mg (1/2 x 80 mg) PO DAILY #30 11/07/24 12/24/24 12/23/24 Rx tabs ramelteon 8 mg tablet 8 mg PO BEDTIME 12/24/24 12/24/24 12/23/24 History alprazolam 0.25 mg tablet (Xanax) 0.25 mg PO DAILY PRN anxiety 5 12/26/24 Unknown Rx days #5 tabs aspirin 81 mg tablet,delayed 81 mg PO DAILY 30 days #30 tabs 12/26/24 Unknown Rx release atorvastatin 40 mg tablet 40 mg PO BEDTIME 30 days #30 tabs 12/26/24 Unknown Rx clopidogrel 75 mg tablet 75 mg PO DAILY 30 days #30 tabs 12/26/24 Unknown Rx nitroglycerin 0.4 mg sublingual 0.4 mg sublingual Q5M PRN Chest 12/26/24 Unknown Rx tablet Pain 30 days #30 tabs pantoprazole 40 mg tablet,delayed 40 mg PO Q12H 30 days #60 tabs 12/26/24 Unknown Rx release (Protonix) potassium chloride 20 mEq 20 meq PO DAILY #30 tabs 12/26/24 12/24/24 12/23/24 Rx tablet,extended release sucralfate 1 gram tablet 1 g PO BID 30 days #60 tabs 12/26/24 Unknown Rx Allergies Allergy/AdvReac Type Severity Reaction Status Date / Time ibuprofen Allergy Unknown ADR-Anxiety Verified 09/23/24 04:24 tizanidine Allergy Unknown Unknown Verified 09/23/24 04:24 acetaminophen Allergy ADR-Anxiety Verified 09/23/24 04:24 amitriptyline Allergy ADR-Agitate Verified 09/23/24 04:24 d diphenhydramine (From Allergy ADR-Agitate Verified 09/23/24 04:24 Benadryl) d morphine Allergy ADR-Halluci Verified 09/23/24 04:24 nating prochlorperazine (From Allergy Unknown Verified 09/23/24 04:24 Compazine) leflunomide AdvReac Intermediate GI adverse Verified 09/23/24 04:24 reactions sulfasalazine AdvReac Intermediate ADR-Nausea Verified 09/23/24 04:24 and acid reflux Current Medications Generic Name Dose Route Start Last Admin Trade Name Freq PRN Reason Stop Dose Admin Nitroglycerin/Dextrose 50 mg in 250 mls @ 0 mls/hr 12/27/24 10:00 12/27/24 10:09 Nitroglycerin Drip IV 10 mcg/min .Q0M KIM 3 mls/hr Protocol Administration Per Protocol Heparin Sodium/Sodium Chloride 25,000 unit in 500 mls @ 0 mls/hr 12/27/24 10:15 12/27/24 10:41 Heparin Drip IV Infused CONT KIM Titration Protocol Per Protocol PFSH Acute PFSH: Medical History Coronary artery disease Pneumonia DVT (deep venous thrombosis) Acute GI bleeding History of deep vein thrombosis GERD (gastroesophageal reflux disease) Pre-operative clearance Acute anemia Hematoma complicating a procedure Cervical adenopathy GI bleed Osteoarthritis, shoulder Cervical spondylosis with myelopathy GERD with esophagitis Allergic rhinitis due to allergen RLS (restless legs syndrome) Substance or medication-induced sleep disorder, insomnia type Anxiety and depression High risk medication use Seropositive rheumatoid arthritis of multiple sites Extrapyramidal and movement disorder CKD (chronic kidney disease) stage 3, GFR 30-59 ml/min Lung nodule, solitary Prediabetes Hyperlipidemia Iron deficiency anemia Hypothyroidism Surgical History S/P insertion of IVC (inferior vena caval) filter Status post cervical spinal fusion History of cholecystectomy History of appendectomy History of delivery History of hysterectomy with bilateral oophorectomy History of ankle surgery left Previous back surgery Social History Smoking and tobacco/nicotine status: former use of tobacco/nicotine Quit status (tobacco/nicotine): has quit using Year quit tobacco: 2009 Former quit date comment: Smoked for 9 months Alcohol intake: current Alcohol intake frequency: holidays/special occasions only Substance/Drug Use: never Vitals/I&O/Wt Last Vital Signs Temp 97.8 F 12/27/24 09:00 Pulse 63 12/27/24 10:42 Resp 22 H 12/27/24 10:15 BP 124/59 12/27/24 10:42 Pulse Ox 99 12/27/24 10:42 O2 Del Method Room Air 12/27/24 10:15 12/26/24 12/27/24 12/27/24 22:59 06:59 14:59 Intake Total 7.65 / 7.65 Balance 7.65 / 7.65 Weight last 48 hrs Weight 63.049 kg Physical Exam Narrative: Accompanied by her Const: COMMON NORMALS: patient oriented x3 and alert GENERAL APPEARANCE: cooperative ORIENTATION/CONSCIOUSNESS: Yes awake HENMT: COMMON NORMALS: oropharynx normal Neck/C-Spine: COMMON NORMALS: no JVD Chest: OTHER: Chest wall tender particularly over the left chest and anterior axillary line Resp: COMMON NORMALS: normal respiratory effort and clear to auscultation bilaterally AUSCULTATION: clear to auscultation bilaterally Cardio: COMMON NORMALS: no JVD, regular rhythm, S1 normal heart sound present, S2 normal heart sound present and No murmurs present (Cardio) RHYTHM: regular rhythm HEART SOUNDS: S1 normal heart sound present and S2 normal heart sound present GI: COMMON NORMALS: Normal to inspection, nondistended, normoactive bowel sounds present, Soft to palpation and non-tender PALPATION: Yes Soft to palpation Extremity: COMMON NORMALS: no joint enlargement and no pedal edema OTHER: Right forearm with area of swelling, no mottling or cyanosis, noted some bruising. Hand is perfused. Neuro: COMMON NORMALS: patient oriented x3 and moves all extremities SENSORIUM/ORIENTATION: Yes alert Skin: COMMON NORMALS: no rashes or lesions noted GENERAL SKIN EXAM: no rashes or lesions noted Data 12/27/24 09:15 12/27/24 09:15 A&P Assessment and plan 1. Non-ST elevation NM (NSTEMI): Persistent chest discomfort since waking; described as heavy pressure (?elephant on chest?); focal chest wall tenderness noted on palpation. - Continue nitroglycerin infusion at 10 mcg/min (per current setting). - Monitor vital signs and blood pressure. - Monitor for any worsening headache. - Additional pain control provided with a dose of Dilaudid; may continue Dilaudid as needed. - Resume home hydrocodone for pain control. - Apply lidocaine patch to the most tender area of the left chest. - If pain persists, discuss and consider CT angiogram of the chest as per cardiology. - Monitor on telemetry for arrhythmia risk. 2. Unstable angina: As above. 3. Coronary artery disease: Coronary artery disease status post percutaneous coronary intervention : Prior LCX stents patent on today?s evaluation; moderate LAD stenosis abnormal by instantaneous wave-free ratio (iFR) treated with PCI with two stents; continuing secondary prevention. - Continue dual antiplatelet therapy (DAPT). - Continue high-intensity statin. - Monitor telemetry. 4. Chest pain: 5. IV infiltration: Right arm intravenous infiltration : Right arm pain and swelling at site of prior IV infiltration; improving; very tender area reported. - Elevate the affected arm. - Avoid blood pressure measurements on the affected arm. - Provide extra pillows for arm support. 6. Urine retention: Urinary retention : Reports urge to void but unable to urinate. - urinary catheter placement for inability to void (team to arrange). - UA Plan: Anxiety : Reports significant anxiety. - Xanax as needed Nausea and vomiting : Vomiting occurred last night. Zofran as needed Peptic ulcer disease with prior gastrointestinal bleeding : History of bleeding ulcers and prior GI bleed. - Continue proton pump inhibitor (PPI). - Continue sucralfate. Seropositive rheumatoid arthritis : Known seropositive RA. - Hold methotrexate for now. Restless legs syndrome : Known RLS. - Continue ropinirole. Hypothyroidism : Known hypothyroidism. - Continue levothyroxine. Chronic pain : Chronic pain acknowledged; uses multiple home medications for pain/neuropathic symptoms. - Continue venlafaxine, gabapentin, and baclofen for chronic pain. - Resume home hydrocodone. PDMP PDMP Reviewed: Not Reviewed Consult Attestations Medical Necessity Statement: She has been placed in observation for additional assessment and management of NSTEMI after presenting with unstable angina with underlying coronary disease recent stenting. Diagnoses Non-ST elevation NM (NSTEMI) I21.4 Unstable angina I20.0 Coronary artery disease I25.10 Chest pain R07.9 IV infiltration T80.1XXA Urine retention R33.9
[2024-12-27] MEDS: HYDROmorphone 0.5 MG/0.5 ML INJ IVP ×2 (12:57→13:23)
--- NOTE | 2024-12-27 13:39 | CTR_ITS ---
PROCEDURE INFORMATION: Exam: CTA Chest With Contrast Exam date and time: 12/27/2024 3:37 PM Age: 69 years old Clinical indication: Sternal or substernal pain; Prior surgery; Surgery date: Post-operative (0-2 days); Surgery type: Cardiac stents; Additional info: Persistent chest pain, assess for dissection or large pe. Persistent chest pain. PT had 2 stents placed 12/24/24 and again today had 2 stents placed. TECHNIQUE: Imaging protocol: Computed tomographic angiography of the chest with contrast. Exam focused on the arteries. 3D rendering (Not supervised by radiologist): MIP and/or 3D reconstructed images were created by the technologist. Radiation optimization: All CT scans at this facility use at least one of these dose optimization techniques: automated exposure control; mA and/or kV adjustment per patient size (includes targeted exams where dose is matched to clinical indication); or iterative reconstruction. Contrast material: OMNI 350; Contrast volume: 100 ml; Contrast route: INTRAVENOUS (IV); COMPARISON: CT angio chest PE protcl [id number] 05/13/2023 10:00 PM RADIATION DOSE METRICS: Total DLP (mGy-cm): 827.88 FINDINGS: Pulmonary arteries: No evidence of pulmonary embolism. Aorta: Scattered atherosclerotic plaquing of the thoracic aorta with more dense plaquing in the distal aspect of the descending thoracic aorta. No aneurysmal dilatation. Lungs: Extensive subsegmental atelectatic changes in the posterior basal segments of both lower lobes with mild dependent atelectatic changes on the left as well. Pleural spaces: No pleural effusions or pneumothorax. Heart: Mild cardiomegaly. Coronary arteries: Extensive atherosclerotic coronary artery calcifications. Lymph nodes: Unremarkable. No enlarged lymph nodes. Diaphragm: Moderately sized hiatal hernia. Bones/joints: Unremarkable. No acute fracture. Soft tissues: Unremarkable. Other findings: No suspicious masses or nodules. Surgically absent gallbladder. Atrophic pancreas. CT/CT angio chest [id number] IMPRESSION: 1. No evidence of pulmonary embolism. 2. No aortic aneurysm or dissection. 3. Extensive subsegmental atelectatic changes in the posterior basal segments of both lower lobes with mild dependent atelectatic changes on the left as well. 4. Mild cardiomegaly. 5. Extensive atherosclerotic coronary artery calcifications. 6. Moderately sized hiatal hernia.
[2024-12-27] MEDS: HYDROmorphone 0.5 MG/0.5 ML INJ 1 MG IVP ×2 (13:47→20:41)
[2024-12-27 15:20] LABS: Glucose Urine UA Negative (Normal); Nitrate Urine Negative (Negative)
--- NOTE | 2024-12-27 15:23 | PC.PHAR ---
Addendum entered by Vanessa Tirado 12/27/24 15:25: Pt uses [facility] mail order pharmacy for some of her medications. Original Note: Pt states no longer takes Effexor 75mg-side effect of extreme hypertension. Removed from med list.
[2024-12-27 15:25] LABS: Add Urine Microscopic? YES
[2024-12-27 15:32] LABS: Specific Gravity, Urine 1.076 (1.005-1.030)
[2024-12-27] MEDS: iohexol 350 mg/mL 500 mL Btl (per mL) IV (15:43)
[2024-12-27 16:09] LABS: Partial Thromboplastin Time 215.6 SECONDS (23.9-36.7)
--- NOTE | 2024-12-27 16:26 | PC.NURSE ---
received from cardiac lab tester via bed at 1230.report received.right femoral arterial sheath intact to pressurized system.drsg is dry and intact.no hematoma noted.right leg is warm to touch and with brisk capillary refill.palpable dp pulse noted.pt instructed in activity restrictions s/p femorqal artery procedure...and instructed to notifoncerns at [facility] for any bleeding,sob,or for any concerns at all.pt verb understanding of instructions.pt is c/o severe 10/[address] amaro [address] robison also in to see pt and is aware of severe pain.nitro drip is on at 10 mcg/hr.dilaudid given as ordered..pain relieved down to 2
[2024-12-27] MEDS: oxyCODONE 5 mg IR Tab/Cap 10 MG PO (16:32)
[2024-12-27 18:22] LABS: Partial Thromboplastin Time 51.2 SECONDS (23.9-36.7)
[2024-12-27 21:32] LABS: Partial Thromboplastin Time 41.3 SECONDS (23.9-36.7)
--- NOTE | 2024-12-27 22:47 | PC.NURSE ---
Patients ptt resulted at 41.3, sheath was pulled at 2218, pressure held for 20 minutes with no hematoma formation, vital signs stable during procedure, patient tolerated procedure well. Patient educated that she still has to keep leg still for 6 hours and cannot get up.
[2024-12-28] VITALS (10 sets, daily range): BP systolic 96–155; BP diastolic 42–91; PULSE 59–72; RESP 11–25; TEMP 36.6–37.3; O2SAT 92–98
--- OUTSIDE RECORDS SUMMARY | 2024-12-28 01:45 | XMS_ITS | Clinical Summary ---
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
[2024-12-28] MEDS: HYDROmorphone 0.5 MG/0.5 ML INJ 1 MG IVP ×4 (02:23→23:04)
[2024-12-28 03:31] LABS: Hematocrit 28.8 % (36-47); Hemoglobin 8.90 g/dL (11.27-16.99); Mean Corpuscular HGB Conc 30.9 g/dL (30-55); Mean Corpuscular Hemoglobin 27.4 pg (27-33); Mean Corpuscular Volume 88.6 fl (85-98); Nucleated Red Blood Cells % 0 %; Platelet Count 192 10^3/cmm (157-399); Red Blood Count 3.25 10^6/uL (3.85-5.65); White Blood Count 3.54 10^3/uL (3.29-11.43)
[2024-12-28 03:45] LABS: Anion Gap 14.8 (5-19); Blood Urea Nitrogen 16 mg/dL (8-23); Calcium 8.8 mg/dL (8.5-10.5); Carbon Dioxide 24 mmol/L (22-29); Chloride 104 mmol/L (98-107); Creatinine Clr Calc Pharmacy 50.8497; Glucose 101 mg/dL (65-115); Osmolality Calculated 289 mOsm/kg (285-295); Potassium 3.8 mmol/L (3.5-5.1); Sodium 139 mmol/L (136-145)
[2024-12-28 08:13] LABS: Ferritin 171 ng/mL (15-150); Iron 25 ug/dL (37-145); Total Iron Binding Capacity 172 mcg/dl; Unsaturated Iron Binding 147 ug/dL (112-347)
--- NOTE | 2024-12-28 08:37 | P.PN_ITS ---
<Statement entered by Chava Mckinley M.D - 12/30/24 10:43> Patient was cared for in conjunction with an advanced practice practitioner.? I reviewed the chart and all pertinent data including imaging, telemetry, and laboratory results.? I discussed the patient in detail with the advanced practice practitioner.? Please see?their note for progress note, testing results and agreed upon plan of care for the patient. Subjective 2 Subjective: Sitting up in the chair this morning, chest pain improved since restarting nitroglycerin infusion. Will add Ranexa 500 BID this morning. Hemoglobin down to 8.9, possibly dilutional. Showing some signs of volume overload. Vitals/I&O/Wt Last Vital Signs Temp 97.9 F 12/28/24 07:20 Pulse 67 12/28/24 07:20 Resp 24 H 12/28/24 07:20 BP 122/72 12/28/24 07:20 Pulse Ox 94 12/28/24 07:20 O2 Del Method Room Air 12/28/24 03:45 12/27/24 12/28/24 12/28/24 22:59 06:59 14:59 Intake Total 1395.5 / 2903.15 1500 / 2903.15 Output Total 1550 / 1850 300 / 1850 Balance -154.5 / 1053.15 1200 / 1053.15 Weight last 48 hrs Weight 165 lb 12.8 oz Weight 158 lb 4 oz Weight 139 lb Physical Exam 2 Const: COMMON NORMALS: no acute distress and patient oriented x3 GENERAL APPEARANCE: cooperative ORIENTATION/CONSCIOUSNESS: Yes awake, Yes oriented to person, Yes oriented to place and Yes oriented to time Chest: COMMONS NORMALS: normal inspection of the chest and normal palpation of entire chest wall CHEST: Yes Symmetrical chest wall rise Resp: COMMON NORMALS: normal respiratory effort, No retractions and No use of accessory muscles AUSCULTATION: crackles (scattered) Laterality: posterior Cardio: COMMON NORMALS: regular rate, regular rhythm, S1 normal heart sound present, S2 normal heart sound present, No gallops present (Cardio), No clicks present (Cardio), No murmurs present (Cardio) and No rub (Cardio) RATE: r egular rate RHYTHM: regular rhythm HEART SOUNDS: S1 normal heart sound present and S2 normal heart sound present PERIPHERAL PULSES: radial pulses present positive right 2+ and femoral pulses present positive right 2+ Neuro: COMMON NORMALS: patient oriented x3 and moves all extremities S ENSORIUM/ORIENTATION: Yes oriented to person, Yes oriented to place and Yes oriented to time Skin: WOUNDS: Yes surgical site (no hematoma palpable) Details: no odor Urinary Catheter Management: Brandt: Cath Placed During This Visit: yes Reason for Continuing Indwelling Catheter: Acute Urinary Retention or Obstruction Urinary Catheter Date of Insertion: 12/27/24 Urinary Catheter Time of Insertion: 13:25 Data 12/28/24 03:00 12/28/24 03:00 A&P Assessment and plan 1. Coronary artery disease: 2. Non-ST elevation MS (NSTEMI): 3. Diastolic congestive heart failure: 4. Chest pain: Plan: Adding Ranexa for the chest pain, hospitalist service adding diuretic. Will try to wean nitro infusion later today. Blood pressure well controlled. Rechecking CBC at 2PM. PDMP PDMP Reviewed: Not Reviewed Attestations 2 Medical Necessity Statement*: chest pain, s/p PCI Coding Level of Care Code Acute Code for [facility] Fwd Diagnoses Coronary artery disease I25.10 Non-ST elevation MS (NSTEMI) I21.4 Diastolic congestive heart failure I50.30 Chest pain R07.9
[2024-12-28] MEDS: ranolazine (12HR) 500 mg Tablet PO ×2 (08:38→16:26)
--- NOTE | 2024-12-28 09:06 | ECG_ITS ---
[employer] Test Date: 2024-12-28 Pat Name: Tosha Perry Department: Room: 102 Gender: Female Radiation Control Specialist: : [id number] Requested By: Perico Gonzalez Order Number: [id number] Reading MD: Chava Mckinley M.D. Measurements Intervals [place] Rate: 59 P: 41 DE: 191 QRS: 1 QRSD: 104 T: -11 QT: 411 QTc: 410 Interpretive Statements SINUS BRADYCARDIA POSSIBLE ANTERIOR MYOCARDIAL INFARCTION , PROBABLY OLD [30 ms Q WAVE IN V3/V4, OR R < 0.2 mV IN V4] Compared to ECG 12/27/2024 10:13:07 No significant changes Electronically Signed On 12-30-2024 13:12:53 CDT by Chava Mckinley M.D. [email or web address]
[2024-12-28 09:10] LABS: Hemoglobin 9.30 g/dL (11.27-16.99)
--- NOTE | 2024-12-28 09:23 | P.PN_ITS ---
Subjective 2 Subjective: She was having chest heaviness again this morning. Nitroglycerin was restarted. She is also coughing and coughing up some brownish phlegm. Vitals/I&O/Wt Last Vital Signs Temp 97.9 F 12/28/24 07:20 Pulse 67 12/28/24 07:20 Resp 24 H 12/28/24 07:20 BP 122/72 12/28/24 07:20 Pulse Ox 94 12/28/24 07:20 O2 Del Method Room Air 12/28/24 03:45 12/27/24 12/28/24 12/28/24 22:59 06:59 14:59 Intake Total 1395.5 / 1403.15 1500 / 2903.15 Output Total 1550 / 1550 300 / 1850 Balance -154.5 / -146.85 1200 / 1053.15 Weight last 48 hrs Weight 75.206 kg Weight 71.781 kg Weight 63.049 kg Physical Exam 2 Narrative: Accompanied by her Const: COMMON NORMALS: patient oriented x3 and alert GENERAL APPEARANCE: c ooperative ORIENTATION/CONSCIOUSNESS: Yes awake HENMT: COMMON NORMALS: oropharynx normal Neck/C-Spine: COMMON NORMALS: no JVD Chest: OTHER: Chest wall tender particularly over the left chest and anterior axillary line Resp: COMMON NORMALS: normal respiratory effort and clear to auscultation bilaterally AUSCULTATION: clear to auscultation bilaterally Cardio: COMMON NORMALS: no JVD, regular rhythm, S1 normal heart sound present, S2 normal heart sound present and No murmurs present (Cardio) RHYTHM: regular rhythm HEART SOUNDS: S1 normal heart sound present and S2 normal heart sound present GI: COMMON NORMALS: Normal to inspection, nondistended, normoactive bowel sounds present, Soft to palpation and non-tender PALPATION: Yes Soft to palpation Extremity: COMMON NORMALS: no joint enlargement and no pedal edema OTHER: Right forearm with area of swelling, no mottling or cyanosis. Hand is perfused. Neuro: COMMON NORMALS: patient oriented x3 and moves all extremities S ENSORIUM/ORIENTATION: Yes alert Skin: COMMON NORMALS: no rashes or lesions noted GENERAL SKIN EXAM: no rashes or lesions noted Urinary Catheter Management: Brandt: Cath Placed During This Visit: yes Reason for Continuing Indwelling Catheter: Acute Urinary Retention or Obstruction Urinary Catheter Date of Insertion: 12/27/24 Urinary Catheter Time of Insertion: 13:25 Data 12/28/24 09:03 12/28/24 03:00 A&P Assessment and plan 1. Non-ST elevation [place] (NSTEMI): Additional episode of heaviness restarted this morning. Nitroglycerin had been resumed. Continue to monitor on telemetry. Ranexa is being added by cardiology. Plans to wean off nitro drip. Reviewed CTA. Reviewed vitals, CBC, PTT, CMP D/w cardiology. Status post intervention 12/27 Persistent chest discomfort since waking; described as heavy pressure (?elephant on chest?); focal chest wall tenderness noted on palpation. - Additional pain control provided with a dose of Dilaudid; may continue Dilaudid as needed. - Resume home hydrocodone for pain control. - lidocaine patch to the most tender area of the left chest. - Monitor on telemetry for arrhythmia risk. 2. Acute bronchitis: Having cough, productive of brownish appearing sputum. Noted atelectasis on CTA. No suggestion of large PE. Add flutter valve. Robitussin DM. DuoNeb as needed. 3. Atelectasis: Incentive spirometer requested. 4. Anemia: Hemoglobin reviewed, down to 9.3, MCV is 88.6. Requested Hemoccult, iron studies. No obvious outward bleeding. Not had any hematochezia or melena. UA noted with microscopic hematuria, 51-100 RBC. Will need follow-up. Repeat blood counts requested. 5. Unstable angina: As above. 6. Coronary artery disease: Coronary artery disease status post percutaneous coronary intervention : Prior LCX stents patent on today?s evaluation; moderate LAD stenosis abnormal by instantaneous wave-free ratio (iFR) treated with PCI with two stents; continuing secondary prevention. - Continue dual antiplatelet therapy (DAPT). - Continue high-intensity statin. - Monitor telemetry. 7. Chest pain: As above 8. IV infiltration: Right arm intravenous infiltration : Elevated right arm. Avoid blood pressure checks and INR. - Elevate the affected arm. - Avoid blood pressure measurements on the affected arm. - Provide extra pillows for arm support. 9. Urine retention: Urinary retention : Reports urge to void but unable to urinate. - urinary catheter placement for inability to void (team to arrange). - UA reviewed, without suggestion of UTI Noted microscopic hematuria, will need follow-up. Plan: Anxiety : Reports significant anxiety. - Xanax as needed Nausea and vomiting : Resolved. Zofran as needed Peptic ulcer disease with prior gastrointestinal bleeding : History of bleeding ulcers and prior GI bleed. - Continue proton pump inhibitor (PPI). - Continue sucralfate. Seropositive rheumatoid arthritis : Known seropositive RA. - Hold methotrexate for now. Restless legs syndrome : Known RLS. - Continue ropinirole. Hypothyroidism : Known hypothyroidism. - Continue levothyroxine. Chronic pain : Chronic pain acknowledged; uses multiple home medications for pain/neuropathic symptoms. - Continue venlafaxine, gabapentin, and baclofen for chronic pain. - Resume home hydrocodone. PDMP PDMP Reviewed: Not Reviewed Attestations 2 Medical Necessity Statement*: Continue hospitalization for additional assessment and management after NSTEMI, with recurrent chest pain, acute bronchitis, atelectasis after recent respiratory illness. and High MDM includes amount and/or complexity of data reviewed/ordered [ resulted lab(s)/test(s), ordered lab(s)/test(s) and other healthcare professional discussion] as documented Diagnoses Non-ST elevation [place] (NSTEMI) I21.4 Acute bronchitis J20.9 Atelectasis J98.11 Anemia D64.9 Unstable angina I20.0 Coronary artery disease I25.10 Chest pain R07.9 IV infiltration T80.1XXA Urine retention R33.9
[2024-12-28] MEDS: heparin 5,000 unit/mL INJ 1 mL 5000 UNIT SUBCUT ×2 (12:54→20:48)
[2024-12-28 14:13] LABS: Hematocrit 28.1 % (36-47); Hemoglobin 8.70 g/dL (11.27-16.99); Mean Corpuscular HGB Conc 31.0 g/dL (30-55); Mean Corpuscular Hemoglobin 27.8 pg (27-33); Mean Corpuscular Volume 89.8 fl (85-98); Nucleated Red Blood Cells % 0 %; Platelet Count 199 10^3/cmm (157-399); Red Blood Count 3.13 10^6/uL (3.85-5.65); White Blood Count 3.85 10^3/uL (3.29-11.43)
--- NOTE | 2024-12-28 14:45 | PC.NURSE ---
warm prune juice given to patient to try and promote bowel movement.
[2024-12-28] MEDS: ondansetron 2 mg/ML SDV 2 mL 4 MG IVP (15:09)
[2024-12-28] MEDS: alum-mag-hydroxide-sime 30 mL UDC PO (16:49)
--- NOTE | 2024-12-28 16:49 | USCV_ITS ---
Tosha Perry Age: 69 Gender: F : 1955 Exam Date: 12/28/2024 09:51 Ordering Phys: Hallie Glass Technologist: Exam Location: [facility] [place] Indication: chf nstemi BP: 130 / 70 HR: Rhythm: Sinus Technical Quality: Adequate MEASUREMENTS (Male / Female) Normal Values 2D ECHO LV Diastolic Diameter PLAX 3.9 cm 4.2 - 5.9 / 3.9 - 5.3 cm IVS Diastolic Thickness 1.1 cm 0.6 - 1.0 / 0.6 - 0.9 cm IVS Systolic Thickness 1.5 cm LVPW Diastolic Thickness 1.3 cm 0.6 - 1.0 / 0.6 - 0.9 cm LVPW Systolic Thickness 1.4 cm LV Ejection Fraction 2D Teich 66.5 % LV Ejection Fraction MOD 4C 68.1 % LV Ejection Fraction MOD 2C 61.2 % LV Ejection Fraction 2C AL 61.4 % RA Systolic Volume 4C AL 38.2 ml RA Systolic Volume 4C MOD 37.7 ml LA Sys Volume AL 40.2 cm cubed LA Sys Volume Index AL 21.6 cm cubed/m squared FINDINGS Left Ventricle Right Ventricle Right Atrium Left Atrium Mitral Valve Aortic Valve Tricuspid Valve Pulmonic Valve Pericardium Aorta IVC CONCLUSIONS Limited echocardiogram performed to assess LV systolic function LV systolic function is normal with EF of 60-65%. No regional wall motion abnormalities Chava Mckinley MD (Electronically Signed) Final Date: 29 December 2024 13:40 S
--- NOTE | 2024-12-28 23:29 | PC.NURSE ---
patient requesting aspirin for temp of 99.1 upon calling MD CHELSEY said no aspirin due to lowering H&H, patient is allergic to Tylenol, ibuprofen, and Benadryl, received no new orders from MD CHELSEY stated to monitor for now
[2024-12-29] VITALS (9 sets, daily range): BP systolic 115–122; BP diastolic 53–106; PULSE 62–78; RESP 15–23; TEMP 36.6–37.2; O2SAT 91–96
[2024-12-29] MEDS: oxyCODONE 5 mg IR Tab/Cap 10 MG PO (02:23)
[2024-12-29] MEDS: HYDROmorphone 0.5 MG/0.5 ML INJ 1 MG IVP ×5 (03:44→20:52)
[2024-12-29 04:05] LABS: Hematocrit 26.1 % (36-47); Hemoglobin 8.20 g/dL (11.27-16.99); Mean Corpuscular HGB Conc 31.4 g/dL (30-55); Mean Corpuscular Hemoglobin 27.8 pg (27-33); Mean Corpuscular Volume 88.5 fl (85-98); Nucleated Red Blood Cells % 0 %; Platelet Count 171 10^3/cmm (157-399); Red Blood Count 2.95 10^6/uL (3.85-5.65); White Blood Count 3.37 10^3/uL (3.29-11.43)
[2024-12-29 04:29] LABS: Anion Gap 13.5 (5-19); Blood Urea Nitrogen 14 mg/dL (8-23); Calcium 9.0 mg/dL (8.5-10.5); Carbon Dioxide 25 mmol/L (22-29); Chloride 105 mmol/L (98-107); Creatinine Clr Calc Pharmacy 46.0022; Glucose 130 mg/dL (65-115); Osmolality Calculated 292 mOsm/kg (285-295); Potassium 3.5 mmol/L (3.5-5.1); Sodium 140 mmol/L (136-145)
[2024-12-29] MEDS: fixodent 39 gm Tube 1 APPLIC DENTAL (05:38)
[2024-12-29] MEDS: efferdent effervescent 1 EACH DENTAL ×2 (05:38→20:52)
[2024-12-29] MEDS: heparin 5,000 unit/mL INJ 1 mL 5000 UNIT SUBCUT ×3 (05:39→20:52)
[2024-12-29] MEDS: ranolazine (12HR) 500 mg Tablet PO ×2 (08:46→17:36)
[2024-12-29] MEDS: ondansetron 2 mg/ML SDV 2 mL 4 MG IVP ×2 (09:03→14:32)
--- NOTE | 2024-12-29 09:19 | USCV_ITS ---
Tosha Perry Age: 69 Gender: F : 1955 Exam Date: 12/29/2024 11:27 Ordering Phys: Hallie Glass Technologist: Exam Location: [facility] [place]ication: eval for pseudo Risk Factors: Previous Vascular Surgery: Right BP: / Left BP: / RIGHT LEFT PSV PSV (cm/s) (cm/s) Waveform Waveform 138.0 Subclavian Proximal 101.0 Subclavian Distal 93.0 Axillary 107.0 Brachial Proximal 107.0 Brachial Mid 108.0 Brachial at AC 54.0 Radial Proximal 80.0 Radial at Wrist 76.0 Ulnar Proximal 92.0 Ulnar at Wrist FINDINGS Triphasic Doppler waveforms in the right upper extremity arteries. Normal Doppler flow velocities. CONCLUSIONS Normal Doppler waveforms and velocities in the right upper extremity No evidence of any arterial obstruction, based on the above finding Dr Sherine Greene MD [facility] (Electronically Signed) Final Date: 29 December 2024 13:48 S
--- NOTE | 2024-12-29 10:22 | P.PN_ITS ---
<Statement entered by Chava Mckinley M.D - 12/30/24 11:09> Patient was cared for in conjunction with an advanced practice practitioner.? I reviewed the chart and all pertinent data including imaging, telemetry, and laboratory results.? I discussed the patient in detail with the advanced practice practitioner.? Please see?their progress note, testing results and agreed upon plan of care for the patient. No significant chest pain. No features of compartment syndrome at this time. Does have right forearm swelling that has worsened compared to yesterday. She had infiltration of heparin from the IV at time of presentation. Radial pulses palpable and arterial duplex shows no limitation to blood flow. She does have tingling sensation in the fingers. However movement is intact. Feeling is intact. Medicine team has discussed case with Ortho. If there is any worsening of symptoms, they recommend to transfer patient to hand surgery. Patient wants to observe it here and not be transferred. She understands the risks. Given no concern of compartment syndrome at this time, will be observed. Cold compresses started and at later evalution, symptoms/ swelling has improved singnificantly. Subjective 2 Subjective: She is feeling numbness in the right hand. Will order right upper extremity arterial duplex to evaluate for pseudoaneurysm. Vitals/I&O/Wt Last Vital Signs Temp 98.0 F 12/29/24 07:50 Pulse 65 12/29/24 09:03 Resp 20 H 12/29/24 09:03 BP 118/53 12/29/24 07:50 Pulse Ox 94 12/29/24 09:03 O2 Del Method Room Air 12/29/24 09:03 O2 Flow Rate 1 12/29/24 04:00 12/28/24 12/29/24 12/29/24 22:59 06:59 14:59 Intake Total 240 / 840 Output Total 1200 / 1400 200 / 1400 Balance -960 / -560 -200 / -560 Weight last 48 hrs Weight 156 lb 9.6 oz Weight 165 lb 12.8 oz Weight 158 lb 4 oz Physical Exam 2 Const: COMMON NORMALS: no acute distress and patient oriented x3 GENERAL APPEARANCE: cooperative and comfortable ORIENTATION/CONSCIOUSNESS: Yes awake, Yes oriented to person, Yes oriented to place and Yes oriented to time Chest: COMMONS NORMALS: normal inspection of the chest and normal palpation of entire chest wall CHEST: Yes Symmetrical chest wall rise Resp: COMMON NORMALS: normal respiratory effort, No retractions, No use of accessory muscles and clear to auscultation bilaterally EFFORT & INSPECTION: Yes symmetric chest movement AUSCULTATION: clear to auscultation bilaterally Cardio: COMMON NORMALS: regular rate, regular rhythm, S1 normal heart sound present, S2 normal heart sound present, No gallops present (Cardio), No clicks present (Cardio), No murmurs present (Cardio) and No rub (Cardio) RATE: r egular rate RHYTHM: regular rhythm HEART SOUNDS: S1 normal heart sound present and S2 normal heart sound present PERIPHERAL PULSES: radial pulses present Extremity: COMMON NORMALS: no pedal edema Neuro: COMMON NORMALS: patient oriented x3 and moves all extremities S ENSORIUM/ORIENTATION: Yes oriented to person, Yes oriented to place and Yes oriented to time Urinary Catheter Management: Brandt: Cath Placed During This Visit: yes, but has since been removed by the nurse Reason for Continuing Indwelling Catheter: Decision to DC Catheter Urinary Catheter Date of Insertion: 12/27/24 Urinary Catheter Time of Insertion: 13:25 Date Urinary Catheter Removed: 12/29/24 Time Urinary Catheter Discontinued: 03:30 Data 12/29/24 03:29 12/29/24 03:29 Micro: Microbiology 12/27/24 14:30 Urine Culture - Preliminary Urine,Clean Catch A&P Assessment and plan 1. Non-ST elevation [place] (NSTEMI): 2. Coronary artery disease: 3. Diastolic congestive heart failure: Plan: Chest pain is improved, continue Ranexa, statin, aspirin, Plavix. No pseudoaneurysm in the right arm, however she had infiltration of heparin in the right arm IV, and a significant bruise is present. Over the course of the day it is becoming more firm. Discussed with hospitalist today, may need to consult general surgery for possibility of compartment syndrome, she may require transfer if it does continue to worsen. For now, will utilize cold compresses, and monitor closely. PDMP PDMP Reviewed: Not Reviewed Attestations 2 Medical Necessity Statement*: per hospitalist Coding Level of Care Code Acute Code for [facility] Fwd Diagnoses Non-ST elevation [place] (NSTEMI) I21.4 Coronary artery disease I25.10 Diastolic congestive heart failure I50.30
--- NOTE | 2024-12-29 12:07 | PC.SOCIAL ---
IMM Updated Updated pt on IMM. No questions voiced. Provided pt a copy. Initialed, dated, & timed a copy & placed in chart.
--- NOTE | 2024-12-29 14:35 | P.PN_ITS ---
Subjective 2 Subjective: Patient complains of pain over her right hand. Additionally also complains of constipation. She is currently saturating well on room air, denies any dyspnea. She states she feels a fullness in her stomach which she thinks is related to constipation. Medications: Reviewed: Yes Vitals/I&O/Wt Last Vital Signs Temp 97.8 F 12/29/24 12:46 Pulse 78 12/29/24 12:46 Resp 22 H 12/29/24 12:46 BP 115/69 12/29/24 12:46 Pulse Ox 94 12/29/24 09:03 O2 Del Method Room Air 12/29/24 09:03 O2 Flow Rate 1 12/29/24 04:00 12/28/24 12/29/24 12/29/24 22:59 06:59 14:59 Intake Total 240 / 840 Output Total 1200 / 1200 200 / 1400 Balance -960 / -360 -200 / -560 Weight last 48 hrs Weight 71.033 kg Weight 75.206 kg Weight 71.781 kg Physical Exam 2 Narrative: General: No acute distress, AO x3 HEENT: PERRLA, pupils bilaterally equal and reactive, pallors not present Chest: Normal vesicular breath sounds, no added sounds, equal good air entry bilaterally CVS: S1-S2 regular, no murmurs, no tachycardia, no gallops, no rubs Abdomen: Soft, nontender, no organomegaly, bowel sounds present Neuro: No focal deficits, no facial deformity, AO x3, power 5/5 in all limbs Urinary Catheter Management: Brandt: Cath Placed During This Visit: yes, but has since been removed by the nurse Reason for Continuing Indwelling Catheter: Decision to DC Catheter Urinary Catheter Date of Insertion: 12/27/24 Urinary Catheter Time of Insertion: 13:25 Date Urinary Catheter Removed: 12/29/24 Time Urinary Catheter Discontinued: 03:30 Data 12/29/24 03:29 12/29/24 03:29 Micro: Microbiology 12/27/24 14:30 Urine Culture - Preliminary Urine,Clean Catch A&P Assessment and plan 1. Non-ST elevation [place] (NSTEMI): Additional episode of heaviness restarted this morning. Nitroglycerin had been resumed. Continue to monitor on telemetry. Ranexa is being added by cardiology. Plans to wean off nitro drip. Reviewed CTA. Reviewed vitals, CBC, PTT, CMP D/w cardiology. Status post intervention 12/27 Persistent chest discomfort since waking; described as heavy pressure (?elephant on chest?); focal chest wall tenderness noted on palpation. - Additional pain control provided with a dose of Dilaudid; may continue Dilaudid as needed. - Resume home hydrocodone for pain control. - lidocaine patch to the most tender area of the left chest. - Monitor on telemetry for arrhythmia risk. 2. Acute bronchitis: Having cough, productive of brownish appearing sputum. Noted atelectasis on CTA. No suggestion of large PE. Add flutter valve. Robitussin DM. DuoNeb as needed. 3. Atelectasis: Incentive spirometer requested. 4. Anemia: Hemoglobin reviewed, down to 9.3, MCV is 88.6. Requested Hemoccult, iron studies. No obvious outward bleeding. Not had any hematochezia or melena. UA noted with microscopic hematuria, 51-100 RBC. Will need follow-up. Repeat blood counts requested. 5. Unstable angina: As above. 6. Coronary artery disease: Coronary artery disease status post percutaneous coronary intervention : Prior LCX stents patent on today?s evaluation; moderate LAD stenosis abnormal by instantaneous wave-free ratio (iFR) treated with PCI with two stents; continuing secondary prevention. - Continue dual antiplatelet therapy (DAPT). - Continue high-intensity statin. - Monitor telemetry. 7. Chest pain: As above 8. IV infiltration: Right arm intravenous infiltration : Elevated right arm. Avoid blood pressure checks and INR. - Elevate the affected arm. - Avoid blood pressure measurements on the affected arm. - Provide extra pillows for arm support. 9. Urine retention: Urinary retention : Reports urge to void but unable to urinate. - urinary catheter placement for inability to void (team to arrange). - UA reviewed, without suggestion of UTI Noted microscopic hematuria, will need follow-up. Plan: Anxiety : Reports significant anxiety. - Xanax as needed Nausea and vomiting : Resolved. Zofran as needed Peptic ulcer disease with prior gastrointestinal bleeding : History of bleeding ulcers and prior GI bleed. - Continue proton pump inhibitor (PPI). - Continue sucralfate. Seropositive rheumatoid arthritis : Known seropositive RA. - Hold methotrexate for now. Restless legs syndrome : Known RLS. - Continue ropinirole. Hypothyroidism : Known hypothyroidism. - Continue levothyroxine. Chronic pain : Chronic pain acknowledged; uses multiple home medications for pain/neuropathic symptoms. - Continue venlafaxine, gabapentin, and baclofen for chronic pain. - Resume home hydrocodone. December 29, 2024 Chart reviewed.69 year old female with a history of coronary artery disease with recent percutaneous coronary intervention (PCI) to the left circumflex artery (LCX), deep vein thrombosis (DVT), gastrointestinal (GI) bleed/peptic ulcer disease (PUD), chronic kidney disease (CKD), hyperlipidemia (HLD), gastroesophageal reflux disease (GERD), restless legs syndrome (RLS), anxiety and depression, seropositive rheumatoid arthritis, prediabetes, and iron deficiency anemia admitted to the hospital on December 27, 2024 for NSTEMI. She is status post left heart cath on this day Where she was found to have patent prior stents, moderate 50 to 60% stenosis of the LAD, status post PCI with 2 stents. She is currently on aspirin and Plavix dual antiplatelet therapy along with statin for this. Her hospital course has been complicated by development of IV infiltration into the right arm. Noted hematoma over the right medial forearm. The affected arm is elevated. Ice pack has been applied to reduce inflammation. Vascular ultrasound was obtained today which did not show any vascular compromise. Patient reports soreness and some tingling to the wrist and fingers of the affected hand today. There is no vascular compromise at this time. Capillary refill is normal. Currently low suspicion for compartment syndrome, will closely continue to monitor. Case was discussed with orthopedics service, recommended transfer for hand surgery should there be persisting concern for compartment syndrome. Discussed with the patient that we currently do not have hand surgery available at our institution. Patient stated that she would like to wait another 24 hours to see if her arm starts to feel better before agreeing to transfer. At this time given no signs of vascular compromise, stable hematoma, and reassuring ultrasound, we will continue to closely monitor. She reports constipation and has not had a bowel movement in 9 days. She would like to get an enema, declines trial of lactulose and suppository. Hemoglobin at 8.2 today. No hematemesis. Continue PPIs. Respiratory status appears to be improving. Chest is clear to auscultation. Currently on room air saturating 94%. PDMP PDMP Reviewed: Not Reviewed Attestations 2 Medical Necessity Statement*: per admitting Coding Level of Care Code Acute Code for Chg Fwd High MDM includes number and complexity of problems actively addressed during encounter, amount and/or complexity of data reviewed/ordered and described risk of complication, morbidity or mortality of management as documented Diagnoses Non-ST elevation [place] (NSTEMI) I21.4 Acute bronchitis J20.9 Atelectasis J98.11 Anemia D64.9 Unstable angina I20.0 Coronary artery disease I25.10 Chest pain R07.9 IV infiltration T80.1XXA Urine retention R33.9
--- NOTE | 2024-12-29 15:17 | XR_ITS ---
WS: [id number] XR abdomen 1V* [id number] REASON FOR EXAM: assess for SBO FINDINGS: Mild gastric distention. Faint contrast seen in the right, transverse, and left colons. Faint contrast seen within the urinary bladder. No significant small bowel distention is identified. No mass or organomegaly. IVC filter in previous vertebroplasty L4 and L5. XR/XR abdomen 1V* [id number] IMPRESSION: No small bowel distention identified.
[2024-12-29] MEDS: Fleet Enema 133 mL Enema PR (19:07)
[2024-12-30] VITALS (10 sets, daily range): BP systolic 88–128; BP diastolic 51–69; PULSE 62–71; RESP 12–20; TEMP 36.8–37.1; O2SAT 90–97; BMI 27.6
[2024-12-30] MEDS: HYDROmorphone 0.5 MG/0.5 ML INJ 1 MG IVP ×6 (00:18→21:55)
--- NOTE | 2024-12-30 00:30 | PC.NURSE ---
patient is requesting pain medication every three hours for right arm pain, and is refusing to try oral medication before IV. this nurse had discussion with patient about what patient is going to do about pain at home with not being able to have IV medication at home. Patient states that at home she can go eight hours in between doses of oxy IR at home, and states I figured I will take advantage of being able to have the shots while I'm here . This nurse informed the patient that upon going home you will not be able to receive IV medication, we need to try and start back up taking oral medication. Patient states maybe later today I was just so sick yesterday patient has agreed to try the oral oxy IR next time she is in pain since that is the same dose as her home medication
[2024-12-30] MEDS: oxyCODONE 5 mg IR Tab/Cap 10 MG PO (02:14)
[2024-12-30] MEDS: ondansetron 2 mg/ML SDV 2 mL 4 MG IVP ×2 (03:18→14:09)
[2024-12-30 03:44] LABS: Hematocrit 27.6 % (36-47); Hemoglobin 8.80 g/dL (11.27-16.99); Mean Corpuscular HGB Conc 31.9 g/dL (30-55); Mean Corpuscular Hemoglobin 27.5 pg (27-33); Mean Corpuscular Volume 86.3 fl (85-98); Nucleated Red Blood Cells % 0 %; Platelet Count 175 10^3/cmm (157-399); Red Blood Count 3.20 10^6/uL (3.85-5.65); White Blood Count 3.37 10^3/uL (3.29-11.43)
[2024-12-30 03:57] LABS: Alanine Aminotransferase 15 U/L (0-33); Albumin Level 3.3 g/dL (3.5-5.2); Alkaline Phosphatase 147 U/L (35-105); Anion Gap 14.9 (5-19); Aspartate Amino Transferase 28 U/L (0-32); Blood Urea Nitrogen 16 mg/dL (8-23); Calcium 9.0 mg/dL (8.5-10.5); Carbon Dioxide 25 mmol/L (22-29); Chloride 101 mmol/L (98-107); Globulin 2.9 g/dL (1.3-4.6); Glucose 115 mg/dL (65-115); Osmolality Calculated 286 mOsm/kg (285-295); Potassium 3.9 mmol/L (3.5-5.1); Sodium 137 mmol/L (136-145); Total Protein 6.2 g/dL (6.6-8.7)
[2024-12-30 04:02] LABS: Creatinine Clr Calc Pharmacy 46.0022
[2024-12-30] MEDS: heparin 5,000 unit/mL INJ 1 mL 5000 UNIT SUBCUT ×2 (05:00→12:55)
[2024-12-30] MEDS: alum-mag-hydroxide-sime 30 mL UDC PO (08:09)
[2024-12-30] MEDS: ranolazine (12HR) 500 mg Tablet PO ×2 (08:09→17:22)
[2024-12-30] MEDS: polyethylene glycol 3350 Pkt 17 gm PO (08:10)
--- NOTE | 2024-12-30 08:49 | ECG_ITS ---
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 Measurements Intervals [place] Rate: 60 P: 41 VT: 190 QRS: -6 QRSD: 96 T: -1 QT: 435 QTc: 436 Interpretive Statements SINUS RHYTHM LOW QRS VOLTAGE IN PRECORDIAL LEADS [QRS DEFLECTION < 1.0 mV IN CHEST LEADS] POSSIBLE INFERIOR MYOCARDIAL INFARCTION , PROBABLY OLD [30 ms Q WAVE IN II/aVF] Compared to ECG 12/28/2024 09:06:56 Low QRS voltage now present Sinus bradycardia no longer present Myocardial infarct finding still present Electronically Signed On 12-30-2024 13:15:39 CDT by Chava Mckinley M.D. [email or web address]
--- NOTE | 2024-12-30 09:23 | PC.NURSE ---
Approximately 0740 morning assessment completed, patient reported no pain during assessment. At approximately 0750 patient reported chest pain 8/10. This nurse reviewed telemetry, brought patient morning medications and PRN xanax, and maalox for burning pain in chest. Patient refused to take these medications stating, I want my Dilaudid. I am not taking anything until I get it. This nurse informed patient that Dilaudid was due and I would bring it to her. Patient stated she wanted to speak with the charge nurse, and charge nurse Nancy notified. Patient was given morning meds after Dilaudid and nitro tablet, patient reported chest pain at 3/10 at 0810 when agreeing to take PO meds. Dr. Brumfield ordered EKG. Dr. Mckinley assessed patient and ordered to monitor.
--- NOTE | 2024-12-30 09:40 | P.PN_ITS ---
Subjective 2 Subjective: Patient feeling better. Minimal chest discomfort. Arm is looking better today. Tingling sensation has also improved. Vitals/I&O/Wt Last Vital Signs Temp 98.8 F 12/30/24 07:07 Pulse 66 12/30/24 08:00 Resp 13 12/30/24 08:00 BP 88/51 12/30/24 08:00 Pulse Ox 95 12/30/24 08:00 O2 Del Method Room Air 12/30/24 07:58 O2 Flow Rate 1 12/29/24 04:00 12/29/24 12/30/24 12/30/24 22:59 06:59 14:59 Intake Total 960 / 960 Output Total 500 / 500 600 / 1100 Balance -500 / -500 360 / -140 Weight last 48 hrs Weight 161 lb 4.8 oz Weight 156 lb 9.6 oz Physical Exam 2 Narrative: GENERAL: Patient is alert[] HEENT: No cyanosis. No icterus. No pallor. [] HEART: Regular S1 and S2. No murmur, rub or gallop. [] LUNGS: Clear to auscultate bilaterally. [] CENTRAL NERVOUS SYSTEM: Grossly nonfocal. [] EXTREMITIES: Right arm has bruising, pulse palpable. No significant tenderness today. Sensation and movement intact Urinary Catheter Management: Brandt: Cath Placed During This Visit: yes, but has since been removed by the nurse Reason for Continuing Indwelling Catheter: Decision to DC Catheter Urinary Catheter Date of Insertion: 12/27/24 Urinary Catheter Time of Insertion: 13:25 Date Urinary Catheter Removed: 12/29/24 Time Urinary Catheter Discontinued: 03:30 Data 12/30/24 02:18 12/30/24 02:18 Micro: Microbiology 12/27/24 14:30 Urine Culture - Preliminary Urine,Clean Catch A&P Assessment and plan 1. Non-ST elevation NM (NSTEMI): 2. Coronary artery disease: 3. Diastolic congestive heart failure: Plan: Patient has intact radial pulse. Arterial duplex did not show any significant abnormality. Swelling is significantly improved today and pain is better. Continue to monitor. Hgb is stable. Patient had hemeoccult positive stool test. Will need further workup. Continue aspirin and plavix Thank you for involving us with care of this patient. We will continue to follow. Please call with questions PDMP PDMP Reviewed: Not Reviewed Attestations 2 Medical Necessity Statement*: Care expected to cross 2 midnights. Coding Level of Care Code Acute Code for g Fwd Diagnoses Non-ST elevation NM (NSTEMI) I21.4 Coronary artery disease I25.10 Diastolic congestive heart failure I50.30
[2024-12-30] MEDS: albumin 12.5 GM/250 ML VIAL IV (11:35)
--- NOTE | 2024-12-30 12:46 | XRR_ITS ---
PROCEDURE INFORMATION: Exam: XR Chest Exam date and time: 12/30/2024 1:05 PM Age: 69 years old Clinical indication: Other: Assess for edema TECHNIQUE: Imaging protocol: Radiologic exam of the chest. Views: 1 view. COMPARISON: CT angio chest [id number] 12/27/2024 3:37 PM FINDINGS: Lungs: Unremarkable. No consolidation. Pleural spaces: Unremarkable. No pleural effusion. No pneumothorax. Heart/Mediastinum: Heart size is enlarged. Vasculature: There is atherosclerosis of the aorta. Bones/joints: Posterior fusion of the cervical spine is noted. XR/XR chest 1V portable [id number] IMPRESSION: Stable findings.
[2024-12-30] MEDS: pantoprazole 40 mg SDV IVP (14:19)
--- NOTE | 2024-12-30 14:22 | P.PN_ITS ---
Subjective 2 Subjective: patient's arm is much improved, range of motion is much improved. Overnight had one episode of vomiting which she reports had some coffee ground blood in it . She is worried about not getting her lasix Medications: Reviewed: Yes Vitals/I&O/Wt Last Vital Signs Temp 98.8 F 12/30/24 07:07 Pulse 65 12/30/24 12:00 Resp 16 12/30/24 12:00 BP 103/58 12/30/24 12:00 Pulse Ox 97 12/30/24 12:00 O2 Del Method Room Air 12/30/24 12:00 O2 Flow Rate 1 12/29/24 04:00 12/29/24 12/30/24 12/30/24 22:59 06:59 14:59 Intake Total 960 / 960 568 / 568 Output Total 500 / 500 600 / 1100 Balance -500 / -500 360 / -140 568 / 568 Weight last 48 hrs Weight 73.164 kg Weight 71.033 kg Physical Exam 2 Narrative: General: No acute distress, AO x3 HEENT: PERRLA, pupils bilaterally equal and reactive, pallors not present Chest: Normal vesicular breath sounds, no added sounds, equal good air entry bilaterally CVS: S1-S2 regular, no murmurs, no tachycardia, no gallops, no rubs Abdomen: Soft, nontender, no organomegaly, bowel sounds present Neuro: No focal deficits, no facial deformity, AO x3, power 5/5 in all limbs Urinary Catheter Management: Brandt: Cath Placed During This Visit: yes, but has since been removed by the nurse Reason for Continuing Indwelling Catheter: Decision to DC Catheter Urinary Catheter Date of Insertion: 12/27/24 Urinary Catheter Time of Insertion: 13:25 Date Urinary Catheter Removed: 12/29/24 Time Urinary Catheter Discontinued: 03:30 Data 12/30/24 02:18 12/30/24 02:18 Micro: Microbiology 12/27/24 14:30 Urine Culture - Final Urine,Clean Catch A&P Assessment and plan 1. Non-ST elevation NJ (NSTEMI): Additional episode of heaviness restarted this morning. Nitroglycerin had been resumed. Continue to monitor on telemetry. Ranexa is being added by cardiology. Plans to wean off nitro drip. Reviewed CTA. Reviewed vitals, CBC, PTT, CMP D/w cardiology. Status post intervention 12/27 Persistent chest discomfort since waking; described as heavy pressure (?elephant on chest?); focal chest wall tenderness noted on palpation. - Additional pain control provided with a dose of Dilaudid; may continue Dilaudid as needed. - Resume home hydrocodone for pain control. - lidocaine patch to the most tender area of the left chest. - Monitor on telemetry for arrhythmia risk. 2. Acute bronchitis: Having cough, productive of brownish appearing sputum. Noted atelectasis on CTA. No suggestion of large PE. Add flutter valve. Robitussin DM. DuoNeb as needed. 3. Atelectasis: Incentive spirometer requested. 4. Anemia: Hemoglobin reviewed, down to 9.3, MCV is 88.6. Requested Hemoccult, iron studies. No obvious outward bleeding. Not had any hematochezia or melena. UA noted with microscopic hematuria, 51-100 RBC. Will need follow-up. Repeat blood counts requested. 5. Unstable angina: As above. 6. Coronary artery disease: Coronary artery disease status post percutaneous coronary intervention : Prior LCX stents patent on today?s evaluation; moderate LAD stenosis abnormal by instantaneous wave-free ratio (iFR) treated with PCI with two stents; continuing secondary prevention. - Continue dual antiplatelet therapy (DAPT). - Continue high-intensity statin. - Monitor telemetry. 7. Chest pain: As above 8. IV infiltration: Right arm intravenous infiltration : Elevated right arm. Avoid blood pressure checks and INR. - Elevate the affected arm. - Avoid blood pressure measurements on the affected arm. - Provide extra pillows for arm support. 9. Urine retention: Urinary retention : Reports urge to void but unable to urinate. - urinary catheter placement for inability to void (team to arrange). - UA reviewed, without suggestion of UTI Noted microscopic hematuria, will need follow-up. Plan: Anxiety : Reports significant anxiety. - Xanax as needed Nausea and vomiting : Resolved. Zofran as needed Peptic ulcer disease with prior gastrointestinal bleeding : History of bleeding ulcers and prior GI bleed. - Continue proton pump inhibitor (PPI). - Continue sucralfate. Seropositive rheumatoid arthritis : Known seropositive RA. - Hold methotrexate for now. Restless legs syndrome : Known RLS. - Continue ropinirole. Hypothyroidism : Known hypothyroidism. - Continue levothyroxine. Chronic pain : Chronic pain acknowledged; uses multiple home medications for pain/neuropathic symptoms. - Continue venlafaxine, gabapentin, and baclofen for chronic pain. - Resume home hydrocodone. December 29, 2024 Chart reviewed.69 year old female with a history of coronary artery disease with recent percutaneous coronary intervention (PCI) to the left circumflex artery (LCX), deep vein thrombosis (DVT), gastrointestinal (GI) bleed/peptic ulcer disease (PUD), chronic kidney disease (CKD), hyperlipidemia (HLD), gastroesophageal reflux disease (GERD), restless legs syndrome (RLS), anxiety and depression, seropositive rheumatoid arthritis, prediabetes, and iron deficiency anemia admitted to the hospital on December 27, 2024 for NSTEMI. She is status post left heart cath on this day Where she was found to have patent prior stents, moderate 50 to 60% stenosis of the LAD, status post PCI with 2 stents. She is currently on aspirin and Plavix dual antiplatelet therapy along with statin for this. Her hospital course has been complicated by development of IV infiltration into the right arm. Noted hematoma over the right medial forearm. The affected arm is elevated. Ice pack has been applied to reduce inflammation. Vascular ultrasound was obtained today which did not show any vascular compromise. Patient reports soreness and some tingling to the wrist and fingers of the affected hand today. There is no vascular compromise at this time. Capillary refill is normal. Currently low suspicion for compartment syndrome, will closely continue to monitor. Case was discussed with orthopedics service, recommended transfer for hand surgery should there be persisting concern for compartment syndrome. Discussed with the patient that we currently do not have hand surgery available at our institution. Patient stated that she would like to wait another 24 hours to see if her arm starts to feel better before agreeing to transfer. At this time given no signs of vascular compromise, stable hematoma, and reassuring ultrasound, we will continue to closely monitor. She reports constipation and has not had a bowel movement in 9 days. She would like to get an enema, declines trial of lactulose and suppository. Hemoglobin at 8.2 today. No hematemesis. Continue PPIs. Respiratory status appears to be improving. Chest is clear to auscultation. Currently on room air saturating 94%. 12/30/24 her right arm is much better today,swelling improved, range of motion much improved. She had one episode of vomiting last evening which was partially coffee ground. Hb at 8.8, lower compared to admission. Has a h/o ?gastric ulcers- last endoscopy was at [facility] in August 2024 with 3 bleeding ulcers per patint- needed cauterization. Consult general surgery for UGIE. Prior records requested. Transfusion thershold at 8.0. She is worried about being off lasix at this time. Will obtain CXR and start lasix if appears to have signs of pulm edema PDMP PDMP Reviewed: Not Reviewed Attestations 2 Medical Necessity Statement*: per admitting Coding Level of Care Code Acute Code for g Fwd Diagnoses Non-ST elevation NJ (NSTEMI) I21.4 Acute bronchitis J20.9 Atelectasis J98.11 Anemia D64.9 Unstable angina I20.0 Coronary artery disease I25.10 Chest pain R07.9 IV infiltration T80.1XXA Urine retention R33.9
--- NOTE | 2024-12-30 16:40 | PM.CONSULT ---
Providers/Reason For Consult Consulting Physician/Specialty*: General Surgery Reason for Consult*: Upper GI bleeding Attending Physician: Chava Mckinley M.D Primary Care Provider: Dinaa Garcia History of Present Illness History of Present Illness Tosha Perry is a 69 year old female with upper GI bleeding in the setting of recent stent placement on dual anticoagulation. Patient was admitted with NSTEMI, underwent coronary percutaneous intervention with a stent placement 3 days ago, since then she has developed a drop in the hemoglobin and also 1 episode of hematemesis. She has a history of previous GI bleed and according to the patient had a previous EGD with ulcers noted on the stomach. Review of Systems General: Reports: 10 or more systems reviewed and unremarkable except in HPI and below Medications/Allergies Home Medications ?Medication ?Instructions ?Recorded ?Confirmed ?Last Taken ?Type Bone growth stimulator #1 ea 01/22/23 12/27/24 Unknown Rx Bone growth stimulator #1 ea 02/05/23 12/27/24 Unknown Rx fluticasone propionate 50 1 spray intranasal BID PRN 09/27/23 12/27/24 12/23/24 History mcg/actuation nasal allergies spray,suspension gabapentin 300 mg capsule 300 mg PO TID 09/27/23 12/27/24 12/26/24 History tens unit for cervical #1 ea 12/16/23 12/27/24 Unknown Rx albuterol sulfate 90 mcg/actuation 1 puff inhalation Q6H PRN 12/20/23 12/27/24 Unknown Rx aerosol inhaler Shortness Of Breath #6.7 grams oxycodone 10 mg tablet 10 mg PO Q8H PRN Pain 12/29/23 12/27/24 12/26/24 History insulin syringes (disposable) 1 mL #25 ea 05/30/24 12/27/24 Unknown Rx methotrexate sodium 25 mg/mL 20 mg (0.8 mL) SUBCUT .Q7days #10 05/30/24 12/27/24 12/18/24 Rx injection solution mL ropinirole 5 mg tablet 5 mg PO BID #270 tabs 10/25/24 12/27/24 12/26/24 Rx promethazine 12.5 mg tablet 12.5 mg PO Q8H PRN Nausea 11/04/24 12/27/24 Unknown History baclofen 10 mg tablet 5 mg (1/2 x 10 mg) PO Q12H PRN 11/07/24 12/27/24 12/23/24 Rx Muscle Spasm #30 tabs ramelteon 8 mg tablet 8 mg PO BEDTIME 12/24/24 12/27/24 12/26/24 History aspirin 81 mg tablet,delayed 81 mg PO DAILY 30 days #30 tabs 12/26/24 12/27/24 12/26/24 Rx release atorvastatin 40 mg tablet 40 mg PO BEDTIME 30 days #30 tabs 12/26/24 12/27/24 12/26/24 Rx clopidogrel 75 mg tablet 75 mg PO DAILY 30 days #30 tabs 12/26/24 12/27/24 12/26/24 Rx nitroglycerin 0.4 mg sublingual 0.4 mg sublingual Q5M PRN Chest 12/26/24 12/27/24 Unknown Rx tablet Pain 30 days #30 tabs pantoprazole 40 mg tablet,delayed 40 mg PO Q12H 30 days #60 tabs 12/26/24 12/27/24 12/26/24 Rx release (Protonix) potassium chloride 20 mEq 20 meq PO DAILY #30 tabs 12/26/24 12/27/24 12/26/24 Rx tablet,extended release sucralfate 1 gram tablet 1 g PO BID 30 days #60 tabs 12/26/24 12/27/24 12/26/24 Rx alprazolam 0.25 mg tablet (Xanax) 0.5 mg PO DAILY PRN anxiety 12/27/24 12/27/24 12/26/24 History furosemide 80 mg tablet 80 mg PO DAILY 12/27/24 12/27/24 12/26/24 History levothyroxine 125 mcg tablet 125 mcg PO DAILY 12/27/24 12/27/24 12/26/24 History Allergies Allergy/AdvReac Type Severity Reaction Status Date / Time venlafaxine (From Effexor) Allergy Severe ADR-Agitate Verified 12/27/24 13:57 d ibuprofen Allergy Unknown ADR-Anxiety Verified 09/23/24 04:24 tizanidine Allergy Unknown Unknown Verified 09/23/24 04:24 acetaminophen Allergy ADR-Anxiety Verified 09/23/24 04:24 amitriptyline Allergy ADR-Agitate Verified 09/23/24 04:24 d diphenhydramine (From Allergy ADR-Agitate Verified 09/23/24 04:24 Benadryl) d morphine Allergy ADR-Halluci Verified 09/23/24 04:24 nating prochlorperazine (From Allergy Unknown Verified 09/23/24 04:24 Compazine) leflunomide AdvReac Intermediate GI adverse Verified 09/23/24 04:24 reactions sulfasalazine AdvReac Intermediate ADR-Nausea Verified 09/23/24 04:24 and acid reflux Current Medications Generic Name Dose Route Start Last Admin Trade Name Freq PRN Reason Stop Dose Admin Al Hydrox/Mg Hydrox/Simethicone 30 ml 12/27/24 11:03 12/30/24 08:09 Rpta-Ybd-Rebbgpsre-Kristel 30 Ml Udc PO 30 ml Q15M PRN Administration INDIGESTION Alprazolam 0.25 mg 12/27/24 11:03 12/30/24 08:10 Alprazolam 0.5 Mg Tablet PO 0.25 mg TID PRN Administration ANXIETY Aspirin 81 mg 12/28/24 09:00 12/30/24 08:09 Aspirin 81 Mg Ec Tablet PO 81 mg DAILY KIM Administration Atorvastatin Calcium 40 mg 12/27/24 21:00 12/29/24 20:52 Atorvastatin 40 Mg Tablet PO 40 mg BEDTIME KIM Administration Baclofen 5 mg 12/27/24 13:28 12/27/24 20:15 Baclofen 10 Mg Tablet PO 5 mg Q12H PRN Administration Muscle Spasm Clopidogrel Bisulfate 75 mg 12/28/24 09:00 12/30/24 08:10 Clopidogrel 75 Mg Tablet PO 75 mg DAILY KIM Administration Denture Adhesive 1 applic 12/29/24 04:34 12/29/24 05:38 Fixodent 39 Gm Tube DENTAL 1 applic PRN PRN Administration denture adhesive Denture Adhesive 1 each 12/29/24 04:35 12/29/24 20:52 Efferdent Effervescent DENTAL 1 each PRN PRN Administration cleaning Furosemide 20 mg 12/30/24 15:15 12/30/24 15:46 Furosemide 20 Mg Tablet PO 20 mg DAILY@0800 KIM Administration Gabapentin 300 mg 12/27/24 15:00 12/30/24 15:06 Gabapentin 300 Mg Capsule PO 300 mg TID KIM Administration Heparin Sodium (Porcine) 5,000 unit 12/27/24 13:45 12/30/24 12:55 Heparin 5,000 Unit/Ml Inj 1 Ml SUBCUT 5,000 unit Q8H KIM Administration Hydromorphone HCl 1 mg 12/27/24 20:25 12/30/24 16:16 Hydromorphone 0.5 Mg/0.5 Ml Inj IVP 1 mg Q3H PRN Administration SEVERE PAIN Levothyroxine Sodium 112 mcg 12/28/24 06:00 12/30/24 04:55 Levothyroxine 112 Mcg Tablet PO 112 mcg QAM KIM Administration Lidocaine 1 patch 12/27/24 13:35 12/30/24 08:10 Lidocaine 5% Patch TOPICAL 1 patch [id number] KIM Administration Magnesium Hydroxide 30 ml 12/27/24 11:03 12/28/24 15:09 Magnesium Hydroxide 30 Ml Udc PO 30 ml DAILY PRN Administration CONSTIPATION Nitroglycerin 0.4 mg 12/27/24 11:03 12/30/24 08:20 Nitroglycerin 0.4 Mg Sublingual Tablet SUBLINGUAL 0.4 mg Q5M PRN Administration CHEST PAIN Ondansetron HCl 4 mg 12/27/24 13:28 12/30/24 14:09 Ondansetron 2 Mg/Ml Sdv 2 Ml IVP 4 mg Q6H PRN Administration NAUSEA AND VOMITING Oxycodone HCl 10 mg 12/27/24 13:03 12/30/24 02:14 Oxycodone 5 Mg Ir Tab/Cap PO 10 mg Q6H PRN Administration SEVERE PAIN Pantoprazole Sodium 40 mg 12/30/24 13:30 12/30/24 14:19 Pantoprazole 40 Mg Sdv IVP 40 mg Q12H KIM Administration Polyethylene Glycol 17 gm 12/30/24 09:00 12/30/24 08:10 Polyethylene Glycol 3350 Pkt 17 Gm PO 17 gm DAILY KIM Administration Ranolazine 500 mg 12/28/24 09:00 12/30/24 08:09 Ranolazine (12hr) 500 Mg Tablet PO 500 mg BID KIM Administration Ropinirole HCl 5 mg 12/27/24 18:00 12/30/24 08:09 Ropinirole 2 Mg Tablet PO 5 mg BID KIM Administration Sucralfate 1 gm 12/27/24 18:00 12/30/24 08:09 Sucralfate 1 Gm Tablet PO 1 gm BID KIM Administration PFSH Acute PFSH: Medical History (Updated 12/28/24 @ 09:53 by Perico Gonzalez MD) Coronary artery disease Pneumonia DVT (deep venous thrombosis) Acute GI bleeding History of deep vein thrombosis GERD (gastroesophageal reflux disease) Pre-operative clearance Acute anemia Hematoma complicating a procedure Cervical adenopathy GI bleed Osteoarthritis, shoulder Cervical spondylosis with myelopathy GERD with esophagitis Allergic rhinitis due to allergen RLS (restless legs syndrome) Substance or medication-induced sleep disorder, insomnia type Anxiety and depression High risk medication use Seropositive rheumatoid arthritis of multiple sites Extrapyramidal and movement disorder CKD (chronic kidney disease) stage 3, GFR 30-59 ml/min Lung nodule, solitary Prediabetes Hyperlipidemia Iron deficiency anemia Hypothyroidism Surgical History S/P insertion of IVC (inferior vena caval) filter Status post cervical spinal fusion History of cholecystectomy History of appendectomy History of delivery History of hysterectomy with bilateral oophorectomy History of ankle surgery left Previous back surgery Social History Smoking and tobacco/nicotine status: former use of tobacco/nicotine Quit status (tobacco/nicotine): has quit using Year quit tobacco: 2009 Former quit date comment: Smoked for 9 months Alcohol intake: current Alcohol intake frequency: holidays/special occasions only Substance/Drug Use: never Vitals/I&O/Wt Last Vital Signs Temp 98.8 F 12/30/24 07:07 Pulse 62 12/30/24 15:36 Resp 15 12/30/24 15:32 BP 115/59 12/30/24 15:32 Pulse Ox 95 12/30/24 15:32 O2 Del Method Room Air 12/30/24 15:32 O2 Flow Rate 1 12/29/24 04:00 12/30/24 12/30/24 12/30/24 06:59 14:59 22:59 Intake Total 960 / 960 568 / 568 Output Total 600 / 1100 Balance 360 / -140 568 / 568 Weight last 48 hrs Weight 161 lb 4.8 oz Weight 156 lb 9.6 oz Physical Exam Narrative: Patient is alert and oriented, abdomen is soft minimal tenderness in epigastrium nondistended. Urinary Catheter Management: Brandt: Cath Placed During This Visit: yes, but has since been removed by the nurse Reason for Continuing Indwelling Catheter: Decision to DC Catheter Urinary Catheter Date of Insertion: 12/27/24 Urinary Catheter Time of Insertion: 13:25 Date Urinary Catheter Removed: 12/29/24 Time Urinary Catheter Discontinued: 03:30 Data 12/30/24 02:18 12/30/24 02:18 Micro: Microbiology 12/27/24 14:30 Urine Culture - Final Urine,Clean Catch A&P Assessment and plan 1. Nausea & vomitin. Abdominal pain: 3. Anemia: Plan: After complete history, physical examination and review of all available clinical data the following is my assessment. Patient will benefit from an EGD with possible bleeding control for evaluation of suspected upper GI bleeding in the setting of recent increasing anticoagulation. Of note patient cannot stop anticoagulation as she has fresh stents. Therefore we will proceed only with bleeding control and no biopsies during endoscopy. I discussed all recent benefits including the risks of rebleeding, perforation of the esophagus stomach or duodenum requiring surgical intervention transfer to higher level of care, massive bleeding requiring transfusions and IR intervention, need for additional procedures, injury to soft tissue of the mouth and pharynx. I have also Explained to the patient that in the case of brisk bleeding or diffuse bleeding of the mucosa we most likely will have to refer her to GI physician for additional endoscopic therapy, she shows understanding wish to proceed. She will be held n.p.o. after midnight for anticipation for endoscopy tomorrow PDMP PDMP Reviewed: Not Reviewed Coding Level of Care Code Acute Code for Chg Fwd Diagnoses Nausea & vomiting R11.2 Abdominal pain R10.9 Anemia D64.9
[2024-12-31] VITALS (14 sets, daily range): BP systolic 91–119; BP diastolic 41–67; PULSE 53–73; RESP 13–20; TEMP 36.3–37; O2SAT 89–100
[2024-12-31] MEDS: HYDROmorphone 0.5 MG/0.5 ML INJ 1 MG IVP ×5 (01:36→22:09)
[2024-12-31] MEDS: pantoprazole 40 mg SDV IVP ×2 (01:36→15:52)
[2024-12-31 04:53] LABS: Hematocrit 26.4 % (36-47); Hemoglobin 8.30 g/dL (11.27-16.99); Mean Corpuscular HGB Conc 31.4 g/dL (30-55); Mean Corpuscular Hemoglobin 27.6 pg (27-33); Mean Corpuscular Volume 87.7 fl (85-98); Nucleated Red Blood Cells % 0 %; Platelet Count 166 10^3/cmm (157-399); Red Blood Count 3.01 10^6/uL (3.85-5.65); White Blood Count 3.00 10^3/uL (3.29-11.43)
[2024-12-31 05:16] LABS: Alanine Aminotransferase 14 U/L (0-33); Albumin Level 3.4 g/dL (3.5-5.2); Alkaline Phosphatase 144 U/L (35-105); Anion Gap 15.9 (5-19); Aspartate Amino Transferase 26 U/L (0-32); Blood Urea Nitrogen 16 mg/dL (8-23); Calcium 8.9 mg/dL (8.5-10.5); Carbon Dioxide 25 mmol/L (22-29); Chloride 101 mmol/L (98-107); Globulin 3.3 g/dL (1.3-4.6); Glucose 96 mg/dL (65-115); Osmolality Calculated 287 mOsm/kg (285-295); Potassium 3.9 mmol/L (3.5-5.1); Sodium 138 mmol/L (136-145); Total Protein 6.7 g/dL (6.6-8.7)
[2024-12-31 05:17] LABS: Creatinine Clr Calc Pharmacy 42.7557
--- NOTE | 2024-12-31 07:33 | P.PN_ITS ---
Subjective 2 Subjective: Planning to have endoscopy done today. No chest pain. Still has some arm discomfort however swelling has improved. Vitals/I&O/Wt Last Vital Signs Temp 98.6 F 12/31/24 00:36 Pulse 63 12/31/24 04:44 Resp 16 12/31/24 04:44 BP 104/56 12/31/24 04:44 Pulse Ox 94 12/31/24 04:44 O2 Del Method Room Air 12/31/24 04:44 O2 Flow Rate 1 12/29/24 04:00 12/30/24 12/31/24 12/31/24 22:59 06:59 14:59 Intake Total 355 / 923 Output Total 900 / 900 Balance 355 / 923 - / 23 Weight last 48 hrs Weight 151 lb Weight 161 lb 4.8 oz Physical Exam 2 Narrative: GENERAL: Patient is alert[] HEENT: No cyanosis. No icterus. No pallor. [] HEART: Regular S1 and S2. No murmur, rub or gallop. [] LUNGS: Clear to auscultate bilaterally. [] CENTRAL NERVOUS SYSTEM: Grossly nonfocal. [] EXTREMITIES: Right arm has bruising, pulse palpable.Sensation and movement intact Urinary Catheter Management: Brandt: Cath Placed During This Visit: yes, but has since been removed by the nurse Reason for Continuing Indwelling Catheter: Decision to DC Catheter Urinary Catheter Date of Insertion: 12/27/24 Urinary Catheter Time of Insertion: 13:25 Date Urinary Catheter Removed: 12/29/24 Time Urinary Catheter Discontinued: 03:30 Data 01/01/25 04:21 01/01/25 04:21 Micro: Microbiology 12/27/24 14:30 Urine Culture - Final Urine,Clean Catch A&P Assessment and plan 1. Non-ST elevation MD (NSTEMI): 2. Coronary artery disease: 3. Diastolic congestive heart failure: Plan: Plan is for EGD today. Continue aspirin and Plavix. Monitor H&H. Arm discomfort is improving. No signs of compartment syndrome. Patient was offered transfer for hand surgery evaluation, although not acutely needed, however she wanted conservative management here PDMP PDMP Reviewed: Not Reviewed Attestations 2 Medical Necessity Statement*: Care expected to cross 2 midnights. Coding Level of Care Code Acute Code for [facility] Fwd Diagnoses Non-ST elevation MD (NSTEMI) I21.4 Coronary artery disease I25.10 Diastolic congestive heart failure I50.30
--- NOTE | 2024-12-31 08:57 | P.HPUD_ITS ---
Surgery/Procedure H&P Update DATE OF PROCEDURE: December 31, 2024 DATE H&P PERFORMED: 12/30/24 H&P UPDATE INFORMATION: I have reviewed H&P completed within last 30 days, I have examined patient prior to procedure, No changes to prior documentation, H&P is in [facility] EMR on date indicated and Risks and benefits of the procedure reviewed PREOP DIAGNOSIS: NSTEMI PLANNED PROCEDURE: Operation Date: 12/27/24 11:00 Proposed Procedures p Cardiac Catheterization(Not Applicable) - Chava Mckinley M.D Operation Date: 12/31/24 10:45 Proposed Procedures p EGD(Not Applicable) - Maldonado Riddle MD
[2024-12-31] MEDS: ranolazine (12HR) 500 mg Tablet PO ×2 (09:16→18:01)
[2024-12-31] MEDS: polyethylene glycol 3350 Pkt 17 gm PO (09:17)
--- NOTE | 2024-12-31 11:20 | ANES.PREANE2 ---
Pre-Anesthetic Assessment Height/Weight: Height 1.63 m Weight 68.492 kg Temp Pulse Resp BP Pulse Ox O2 Del Method O2 Flow Rate 97.3 F L 53 L 18 106/52 100 Room Air 1 12/31/24 11:12/31/24 11:12/31/24 11:12/31/24 11:12/31/24 11:12/31/24 11:12/29/24 04:00 Preop Diagnosis: NSTEMI Operation Date: 12/27/24 11:00 Proposed Procedures p Cardiac Catheterization(Not Applicable) - Chava Mckinley M.D Operation Date: 12/31/24 10:45 Proposed Procedures p EGD(Not Applicable) - Maldonado Riddle MD Familial anesthetic complications: PONV Was Beta Karlos taken within 24 hours: N/A Was Clonidine taken within 24 hours: N/A Last intake: > 8 hrs Exam alert, oriented x 3, clear to auscultation bilaterally and regular rate & rhythm Airway Mallampati: Class III Dentition: other (none) Pulmonary acute bronchitis CV/HEM Atrial Fibrillation, Coronary Artery Disease, Deep Vein Thrombosis, Hypertension and Myocardial Infarction Chronic Renal Insufficiency GI Gastroesophageal Reflux Disease Metabolic Diabetes Mellitus Anesthetic Plan ASA status: 4 Anesthesia: MAC Risk of > 500 ml blood loss (7ml/kg in children): No Medications/Allergies Home Medications ?Medication ?Instructions ?Recorded ?Confirmed ?Last Taken ?Type Bone growth stimulator #1 ea 01/22/23 12/27/24 Unknown Rx Bone growth stimulator #1 ea 02/05/23 12/27/24 Unknown Rx fluticasone propionate 50 1 spray intranasal BID PRN 09/27/23 12/27/24 12/23/24 History mcg/actuation nasal allergies spray,suspension gabapentin 300 mg capsule 300 mg PO TID 09/27/23 12/27/24 12/26/24 History tens unit for cervical #1 ea 12/16/23 12/27/24 Unknown Rx albuterol sulfate 90 mcg/actuation 1 puff inhalation Q6H PRN 12/20/23 12/27/24 Unknown Rx aerosol inhaler Shortness Of Breath #6.7 grams oxycodone 10 mg tablet 10 mg PO Q8H PRN Pain 12/29/23 12/27/24 12/26/24 History insulin syringes (disposable) 1 mL #25 ea 05/30/24 12/27/24 Unknown Rx methotrexate sodium 25 mg/mL 20 mg (0.8 mL) SUBCUT .Q7days #10 05/30/24 12/27/24 12/18/24 Rx injection solution mL ropinirole 5 mg tablet 5 mg PO BID #270 tabs 10/25/24 12/27/24 12/26/24 Rx promethazine 12.5 mg tablet 12.5 mg PO Q8H PRN Nausea 11/04/24 12/27/24 Unknown History baclofen 10 mg tablet 5 mg (1/2 x 10 mg) PO Q12H PRN 11/07/24 12/27/24 12/23/24 Rx Muscle Spasm #30 tabs ramelteon 8 mg tablet 8 mg PO BEDTIME 12/24/24 12/27/24 12/26/24 History aspirin 81 mg tablet,delayed 81 mg PO DAILY 30 days #30 tabs 12/26/24 12/27/24 12/26/24 Rx release atorvastatin 40 mg tablet 40 mg PO BEDTIME 30 days #30 tabs 12/26/24 12/27/24 12/26/24 Rx clopidogrel 75 mg tablet 75 mg PO DAILY 30 days #30 tabs 12/26/24 12/27/24 12/26/24 Rx nitroglycerin 0.4 mg sublingual 0.4 mg sublingual Q5M PRN Chest 12/26/24 12/27/24 Unknown Rx tablet Pain 30 days #30 tabs pantoprazole 40 mg tablet,delayed 40 mg PO Q12H 30 days #60 tabs 12/26/24 12/27/24 12/26/24 Rx release (Protonix) potassium chloride 20 mEq 20 meq PO DAILY #30 tabs 12/26/24 12/27/24 12/26/24 Rx tablet,extended release sucralfate 1 gram tablet 1 g PO BID 30 days #60 tabs 12/26/24 12/27/24 12/26/24 Rx alprazolam 0.25 mg tablet (Xanax) 0.5 mg PO DAILY PRN anxiety 12/27/24 12/27/24 12/26/24 History furosemide 80 mg tablet 80 mg PO DAILY 12/27/24 12/27/24 12/26/24 History levothyroxine 125 mcg tablet 125 mcg PO DAILY 12/27/24 12/27/24 12/26/24 History Allergies Allergy/AdvReac Type Severity Reaction Status Date / Time venlafaxine (From Effexor) Allergy Severe ADR-Agitate Verified 12/27/24 13:57 d ibuprofen Allergy Unknown ADR-Anxiety Verified 09/23/24 04:24 tizanidine Allergy Unknown Unknown Verified 09/23/24 04:24 acetaminophen Allergy ADR-Anxiety Verified 09/23/24 04:24 amitriptyline Allergy ADR-Agitate Verified 09/23/24 04:24 d diphenhydramine (From Allergy ADR-Agitate Verified 09/23/24 04:24 Benadryl) d morphine Allergy ADR-Halluci Verified 09/23/24 04:24 nating prochlorperazine (From Allergy Unknown Verified 09/23/24 04:24 Compazine) leflunomide AdvReac Intermediate GI adverse Verified 09/23/24 04:24 reactions sulfasalazine AdvReac Intermediate ADR-Nausea Verified 09/23/24 04:24 and acid reflux Current Medications Generic Name Dose Route Start Last Admin Trade Name Freq PRN Reason Stop Dose Admin Al Hydrox/Mg Hydrox/Simethicone 30 ml 12/27/24 11:03 12/30/24 08:09 Kggu-Fny-Rfnxfpajy-Kristel 30 Ml Udc PO 30 ml On Hold: 12/31/24 11:18 Q15M PRN Administration Comment: Order held by Process INDIGESTION Transfer Aspirin 81 mg 12/28/24 09:00 12/31/24 09:16 Aspirin 81 Mg Ec Tablet PO 81 mg On Hold: 12/31/24 11:18 DAILY KIM Administration Comment: Order held by Process Transfer Atorvastatin Calcium 40 mg 12/27/24 21:00 12/30/24 21:04 Atorvastatin 40 Mg Tablet PO 40 mg On Hold: 12/31/24 11:18 BEDTIME KIM Administration Comment: Order held by Process Transfer Baclofen 5 mg 12/27/24 13:28 12/30/24 21:05 Baclofen 10 Mg Tablet PO 5 mg On Hold: 12/31/24 11:18 Q12H PRN Administration Comment: Order held by Process Muscle Spasm Transfer Clopidogrel Bisulfate 75 mg 12/28/24 09:00 12/31/24 09:17 Clopidogrel 75 Mg Tablet PO 75 mg On Hold: 12/31/24 11:18 DAILY KIM Administration Comment: Order held by Process Transfer Denture Adhesive 1 applic 12/29/24 04:34 12/29/24 05:38 Fixodent 39 Gm Tube DENTAL 1 applic On Hold: 12/31/24 11:18 PRN PRN Administration Comment: Order held by Process denture adhesive Transfer Denture Adhesive 1 each 12/29/24 04:35 12/29/24 20:52 Efferdent Effervescent DENTAL 1 each On Hold: 12/31/24 11:18 PRN PRN Administration Comment: Order held by Process cleaning Transfer Furosemide 20 mg 12/30/24 15:15 12/31/24 09:16 Furosemide 20 Mg Tablet PO 20 mg On Hold: 12/31/24 11:18 DAILY@0800 [facility] Administration Comment: Order held by Process Transfer Gabapentin 300 mg 12/27/24 15:00 12/31/24 09:16 Gabapentin 300 Mg Capsule PO 300 mg On Hold: 12/31/24 11:18 TID [facility] Administration Comment: Order held by Process Transfer Heparin Sodium (Porcine) 5,000 unit 12/27/24 13:45 12/31/24 06:17 Heparin 5,000 Unit/Ml Inj 1 Ml SUBCUT Not Given On Hold: 12/31/24 11:18 Q8H [facility] Comment: Order held by Process Transfer Hydromorphone HCl 1 mg 12/27/24 20:25 12/31/24 09:17 Hydromorphone 0.5 Mg/0.5 Ml Inj IVP 1 mg On Hold: 12/31/24 11:18 Q3H PRN Administration Comment: Order held by Process SEVERE PAIN Transfer Levothyroxine Sodium 112 mcg 12/28/24 06:00 12/31/24 06:17 Levothyroxine 112 Mcg Tablet PO 112 mcg On Hold: 12/31/24 11:18 QAM [facility] Administration Comment: Order held by Process Transfer Lidocaine 1 patch 12/27/24 13:35 12/31/24 10:33 Lidocaine 5% Patch TOPICAL Not Given On Hold: 12/31/24 11:18 [id number] [facility] Comment: Order held by Process Transfer Magnesium Hydroxide 30 ml 12/27/24 11:03 12/28/24 15:09 Magnesium Hydroxide 30 Ml Udc PO 30 ml On Hold: 12/31/24 11:18 DAILY PRN Administration Comment: Order held by Process CONSTIPATION Transfer Nitroglycerin 0.4 mg 12/27/24 11:03 12/30/24 08:20 Nitroglycerin 0.4 Mg Sublingual Tablet SUBLINGUAL 0.4 mg On Hold: 12/31/24 11:18 Q5M PRN Administration Comment: Order held by Process CHEST PAIN Transfer Ondansetron HCl 4 mg 12/27/24 13:28 12/30/24 14:09 Ondansetron 2 Mg/Ml Sdv 2 Ml IVP 4 mg On Hold: 12/31/24 11:18 Q6H PRN Administration Comment: Order held by Process NAUSEA AND VOMITING Transfer Oxycodone HCl 10 mg 12/27/24 13:03 12/30/24 02:14 Oxycodone 5 Mg Ir Tab/Cap PO 10 mg On Hold: 12/31/24 11:18 Q6H PRN Administration Comment: Order held by Process SEVERE PAIN Transfer Pantoprazole Sodium 40 mg 12/30/24 13:30 12/31/24 01:36 Pantoprazole 40 Mg Sdv IVP 40 mg On Hold: 12/31/24 11:18 Q12H KIM Administration Comment: Order held by Process Transfer Polyethylene Glycol 17 gm 12/30/24 09:00 12/31/24 09:17 Polyethylene Glycol 3350 Pkt 17 Gm PO 17 gm On Hold: 12/31/24 11:18 DAILY KIM Administration Comment: Order held by Process Transfer Ranolazine 500 mg 12/28/24 09:00 12/31/24 09:16 Ranolazine (12hr) 500 Mg Tablet PO 500 mg On Hold: 12/31/24 11:18 BID KIM Administration Comment: Order held by Process Transfer Ropinirole HCl 5 mg 12/27/24 18:00 12/31/24 09:16 Ropinirole 2 Mg Tablet PO 5 mg On Hold: 12/31/24 11:18 BID KIM Administration Comment: Order held by Process Transfer Sucralfate 1 gm 12/27/24 18:00 12/31/24 09:17 Sucralfate 1 Gm Tablet PO 1 gm On Hold: 12/31/24 11:18 BID KIM Administration Comment: Order held by Process Transfer [facility] Anesthesia Medical History (Updated 12/28/24 @ 09:53 by Perico Gonzalez MD) Coronary artery disease Pneumonia DVT (deep venous thrombosis) Acute GI bleeding History of deep vein thrombosis GERD (gastroesophageal reflux disease) Pre-operative clearance Acute anemia Hematoma complicating a procedure Cervical adenopathy GI bleed Osteoarthritis, shoulder Cervical spondylosis with myelopathy GERD with esophagitis Allergic rhinitis due to allergen RLS (restless legs syndrome) Substance or medication-induced sleep disorder, insomnia type Anxiety and depression High risk medication use Seropositive rheumatoid arthritis of multiple sites Extrapyramidal and movement disorder CKD (chronic kidney disease) stage 3, GFR 30-59 ml/min Lung nodule, solitary Prediabetes Hyperlipidemia Iron deficiency anemia Hypothyroidism Surgical History S/P insertion of IVC (inferior vena caval) filter Status post cervical spinal fusion History of cholecystectomy History of appendectomy History of delivery History of hysterectomy with bilateral oophorectomy History of ankle surgery left Previous back surgery Social History Smoking and tobacco/nicotine status: former use of tobacco/nicotine Quit status (tobacco/nicotine): has quit using Year quit tobacco: 2009 Former quit date comment: Smoked for 9 months Alcohol intake: current Alcohol intake frequency: holidays/special occasions only Substance/Drug Use: never Data Anesthesia 12/31/24 02:44 12/31/24 02:44 Short CBC 12/30/24 12/31/24 Range/Units 02:18 02:44 WBC 3.37 3.00 L (3.29-11.43) 10^3/uL Hgb 8.80 L 8.30 L (11.27-16.99) g/dL Hct 27.6 L 26.4 L (36-47) % MCV 86.3 87.7 (85-98) fl Plt Count 175 166 (157-399) 10^3/cmm Neut % (Auto) 42.4 44.0 % Neut # (Auto) 1.43 L 1.32 L (1.8-7.7) 10^3/uL BMP 12/30/24 12/31/24 02:18 02:44 Sodium 137 138 Potassium 3.9 3.9 Chloride 101 101 Carbon Dioxide 25 25 BUN 16 16 Creatinine 1.1 H 1.2 H Glucose 115 96 Calcium 9.0 8.9 Liver Function 12/30/24 12/31/24 Range/Units 02:18 02:44 Total Bilirubin 0.3 0.4 (0.15-1.2) mg/dL AST 28 26 (0-32) U/L ALT 15 14 (0-33) U/L Alkaline Phosphatase 147 H 144 H (35-105) U/L Albumin 3.3 L 3.4 L (3.5-5.2) g/dL Microbiology 12/27/24 14:30 Urine Culture - Final Urine,Clean Catch Cardiac Studies: Echocardiogram 12/24/24 Echocardiogram Limited Views 12/28/24 Cardiac Event Monitor 07/13/22
--- NOTE | 2024-12-31 11:42 | P.PN_ITS ---
Subjective 2 Subjective: No acute overnight events, patient has remained stable, hemoglobin is stable. Vitals/I&O/Wt Last Vital Signs Temp 98.0 F 12/31/24 11:39 Pulse 61 12/31/24 11:39 Resp 13 12/31/24 11:39 BP 103/50 12/31/24 11:39 Pulse Ox 100 12/31/24 11:39 O2 Del Method Nasal Cannula 12/31/24 11:39 O2 Flow Rate 4 12/31/24 11:39 12/30/24 12/31/24 12/31/24 22:59 06:59 14:59 Intake Total 355 / 923 Output Total 900 / 900 300 / 300 Balance 355 / 923 -900 / 23 -300 / -300 Weight last 48 hrs Weight 151 lb Weight 161 lb 4.8 oz Physical Exam 2 GI: OTHER: Benign abdominal exam abdomen soft and minimally tender in the epigastrium Urinary Catheter Management: Brandt: Cath Placed During This Visit: yes, but has since been removed by the nurse Reason for Continuing Indwelling Catheter: Decision to DC Catheter Urinary Catheter Date of Insertion: 12/27/24 Urinary Catheter Time of Insertion: 13:25 Date Urinary Catheter Removed: 12/29/24 Time Urinary Catheter Discontinued: 03:30 Data 12/31/24 02:44 12/31/24 02:44 Micro: Microbiology 12/27/24 14:30 Urine Culture - Final Urine,Clean Catch A&P Assessment and plan 1. Nausea & vomitin. Abdominal pain: Plan: Upper endoscopy was done today, there is no evidence of active GI bleeding, there is only 1 single erosion in the prepyloric area with no stigmata of bleeding, duodenum is also normal. No additional interventions indicated from the surgical standpoint, patient can be advanced to GI soft diet as tolerated. Additional management per medical team PDMP PDMP Reviewed: Not Reviewed Attestations 2 Medical Necessity Statement*: Per medical team Coding Level of Care Code Acute Code for Chg Fwd Diagnoses Nausea & vomiting R11.2 Abdominal pain R10.9
--- NOTE | 2024-12-31 13:17 | PM.PN ---
Subjective Subjective: Status post EGD today. Hemoglobin stable at 8.3 Medications: Reviewed: Yes Vitals/I&O/Wt Last Vital Signs Temp 98.0 F 12/31/24 11:39 Pulse 57 L 12/31/24 11:51 Resp 16 12/31/24 11:51 BP 100/56 12/31/24 11:51 Pulse Ox 97 12/31/24 11:51 O2 Del Method Room Air 12/31/24 11:51 O2 Flow Rate 4 12/31/24 11:46 12/30/24 12/31/24 12/31/24 22:59 06:59 14:59 Intake Total 355 / 923 620 / 620 Output Total 900 / 900 300 / 300 Balance 355 / 923 -900 / 23 320 / 320 Weight last 48 hrs Weight 68.492 kg Weight 73.164 kg Physical Exam Narrative: General: No acute distress, AO x3 HEENT: PERRLA, pupils bilaterally equal and reactive, pallors not present Chest: Normal vesicular breath sounds, no added sounds, equal good air entry bilaterally CVS: S1-S2 regular, no murmurs, no tachycardia, no gallops, no rubs Abdomen: Soft, nontender, no organomegaly, bowel sounds present Neuro: No focal deficits, no facial deformity, AO x3, power 5/5 in all limbs Urinary Catheter Management: Brandt: Cath Placed During This Visit: yes, but has since been removed by the nurse Reason for Continuing Indwelling Catheter: Decision to DC Catheter Urinary Catheter Date of Insertion: 12/27/24 Urinary Catheter Time of Insertion: 13:25 Date Urinary Catheter Removed: 12/29/24 Time Urinary Catheter Discontinued: 03:30 Data 12/31/24 02:44 12/31/24 02:44 Micro: Microbiology 12/27/24 14:30 Urine Culture - Final Urine,Clean Catch A&P Assessment and plan 1. Non-ST elevation MO (NSTEMI): Additional episode of heaviness restarted this morning. Nitroglycerin had been resumed. Continue to monitor on telemetry. Ranexa is being added by cardiology. Plans to wean off nitro drip. Reviewed CTA. Reviewed vitals, CBC, PTT, CMP D/w cardiology. Status post intervention 12/27 Persistent chest discomfort since waking; described as heavy pressure (?elephant on chest?); focal chest wall tenderness noted on palpation. - Additional pain control provided with a dose of Dilaudid; may continue Dilaudid as needed. - Resume home hydrocodone for pain control. - lidocaine patch to the most tender area of the left chest. - Monitor on telemetry for arrhythmia risk. 2. Acute bronchitis: Having cough, productive of brownish appearing sputum. Noted atelectasis on CTA. No suggestion of large PE. Add flutter valve. Robitussin DM. DuoNeb as needed. 3. Atelectasis: Incentive spirometer requested. 4. Anemia: Hemoglobin reviewed, down to 9.3, MCV is 88.6. Requested Hemoccult, iron studies. No obvious outward bleeding. Not had any hematochezia or melena. UA noted with microscopic hematuria, 51-100 RBC. Will need follow-up. Repeat blood counts requested. 5. Unstable angina: As above. 6. Coronary artery disease: Coronary artery disease status post percutaneous coronary intervention : Prior LCX stents patent on today?s evaluation; moderate LAD stenosis abnormal by instantaneous wave-free ratio (iFR) treated with PCI with two stents; continuing secondary prevention. - Continue dual antiplatelet therapy (DAPT). - Continue high-intensity statin. - Monitor telemetry. 7. Chest pain: As above 8. IV infiltration: Right arm intravenous infiltration : Elevated right arm. Avoid blood pressure checks and INR. - Elevate the affected arm. - Avoid blood pressure measurements on the affected arm. - Provide extra pillows for arm support. 9. Urine retention: Urinary retention : Reports urge to void but unable to urinate. - urinary catheter placement for inability to void (team to arrange). - UA reviewed, without suggestion of UTI Noted microscopic hematuria, will need follow-up. Plan: Anxiety : Reports significant anxiety. - Xanax as needed Nausea and vomiting : Resolved. Zofran as needed Peptic ulcer disease with prior gastrointestinal bleeding : History of bleeding ulcers and prior GI bleed. - Continue proton pump inhibitor (PPI). - Continue sucralfate. Seropositive rheumatoid arthritis : Known seropositive RA. - Hold methotrexate for now. Restless legs syndrome : Known RLS. - Continue ropinirole. Hypothyroidism : Known hypothyroidism. - Continue levothyroxine. Chronic pain : Chronic pain acknowledged; uses multiple home medications for pain/neuropathic symptoms. - Continue venlafaxine, gabapentin, and baclofen for chronic pain. - Resume home hydrocodone. December 29, 2024 Chart reviewed.69 year old female with a history of coronary artery disease with recent percutaneous coronary intervention (PCI) to the left circumflex artery (LCX), deep vein thrombosis (DVT), gastrointestinal (GI) bleed/peptic ulcer disease (PUD), chronic kidney disease (CKD), hyperlipidemia (HLD), gastroesophageal reflux disease (GERD), restless legs syndrome (RLS), anxiety and depression, seropositive rheumatoid arthritis, prediabetes, and iron deficiency anemia admitted to the hospital on December 27, 2024 for NSTEMI. She is status post left heart cath on this day Where she was found to have patent prior stents, moderate 50 to 60% stenosis of the LAD, status post PCI with 2 stents. She is currently on aspirin and Plavix dual antiplatelet therapy along with statin for this. Her hospital course has been complicated by development of IV infiltration into the right arm. Noted hematoma over the right medial forearm. The affected arm is elevated. Ice pack has been applied to reduce inflammation. Vascular ultrasound was obtained today which did not show any vascular compromise. Patient reports soreness and some tingling to the wrist and fingers of the affected hand today. There is no vascular compromise at this time. Capillary refill is normal. Currently low suspicion for compartment syndrome, will closely continue to monitor. Case was discussed with orthopedics service, recommended transfer for hand surgery should there be persisting concern for compartment syndrome. Discussed with the patient that we currently do not have hand surgery available at our institution. Patient stated that she would like to wait another 24 hours to see if her arm starts to feel better before agreeing to transfer. At this time given no signs of vascular compromise, stable hematoma, and reassuring ultrasound, we will continue to closely monitor. She reports constipation and has not had a bowel movement in 9 days. She would like to get an enema, declines trial of lactulose and suppository. Hemoglobin at 8.2 today. No hematemesis. Continue PPIs. Respiratory status appears to be improving. Chest is clear to auscultation. Currently on room air saturating 94%. 12/30/24 her right arm is much better today,swelling improved, range of motion much improved. She had one episode of vomiting last evening which was partially coffee ground. Hb at 8.8, lower compared to admission. Has a h/o ?gastric ulcers- last endoscopy was at [facility] in August 2024 with 3 bleeding ulcers per patint- needed cauterization. Consult general surgery for UGIE. Prior records requested. Transfusion thershold at 8.0. She is worried about being off lasix at this time. Will obtain CXR and start lasix if appears to have signs of pulm edema December 31, 2024 Continues to have improvement over the right arm swelling. Able to move the arm however still complaining of discomfort. No further episodes of vomiting. States she has some nausea. Status post EGD today. Hemoglobin at 8.3. Noted to have a small single localized erosion in the prepyloric area but otherwise no signs of active bleeding were encountered. Can continue DAPT. Continue Protonix 40 mg p.o. twice daily. Transfusion threshold currently at 8.0. Overall clinically stable to improving with regards to her right arm hematoma and GI bleed. PDMP PDMP Reviewed: Not Reviewed Attestations Medical Necessity Statement*: Per admitting Coding Level of Care Code Acute Code for [facility] Diagnoses Non-ST elevation MO (NSTEMI) I21.4 Acute bronchitis J20.9 Atelectasis J98.11 Anemia D64.9 Unstable angina I20.0 Coronary artery disease I25.10 Chest pain R07.9 IV infiltration T80.1XXA Urine retention R33.9
[2024-12-31] MEDS: heparin 5,000 unit/mL INJ 1 mL 5000 UNIT SUBCUT ×2 (15:52→22:08)
[2024-12-31] MEDS: oxyCODONE 5 mg IR Tab/Cap 10 MG PO (18:59)
--- NOTE | 2024-12-31 23:55 | ANE.PACU2 ---
Inpatient post-anesthesia follow up: Airway intact: Yes Vital signs: Temperature 98.0 F Pulse Rate 72 Respiratory Rate 16 Blood Pressure 106/52 Pulse Oximetry 94 Oxygen Delivery Me thod Room Air Oxygen Flow Rate 4 Fraction of Inspir ed Oxygen Hydration adequate: Yes Nausea and vomiting: No Pain level: 1 Mental status: Baseline
[2025-01-01 01:48] VITALS: RESP 20
[2025-01-01] MEDS: oxyCODONE 5 mg IR Tab/Cap 10 MG PO (01:48)
[2025-01-01] MEDS: pantoprazole 40 mg SDV IVP ×2 (01:48→13:50)
[2025-01-01] MEDS: HYDROmorphone 0.5 MG/0.5 ML INJ 1 MG IVP ×2 (04:13→11:00)
[2025-01-01 04:16] VITALS: BP 107/60; PULSE 72; RESP 20; TEMP 37.5; O2SAT 97
[2025-01-01 04:56] LABS: Hematocrit 29.1 % (36-47); Hemoglobin 9.10 g/dL (11.27-16.99); Mean Corpuscular HGB Conc 31.3 g/dL (30-55); Mean Corpuscular Hemoglobin 27.6 pg (27-33); Mean Corpuscular Volume 88.2 fl (85-98); Nucleated Red Blood Cells % 0 %; Platelet Count 179 10^3/cmm (157-399); Red Blood Count 3.30 10^6/uL (3.85-5.65); White Blood Count 2.72 10^3/uL (3.29-11.43)
[2025-01-01 05:34] LABS: Alanine Aminotransferase 12 U/L (0-33); Albumin Level 3.5 g/dL (3.5-5.2); Alkaline Phosphatase 155 U/L (35-105); Anion Gap 14.0 (5-19); Aspartate Amino Transferase 24 U/L (0-32); Blood Urea Nitrogen 18 mg/dL (8-23); Calcium 8.8 mg/dL (8.5-10.5); Carbon Dioxide 26 mmol/L (22-29); Chloride 98 mmol/L (98-107); Creatinine Clr Calc Pharmacy 41.4687; Globulin 3.1 g/dL (1.3-4.6); Glucose 119 mg/dL (65-115); Osmolality Calculated 281 mOsm/kg (285-295); Potassium 4.0 mmol/L (3.5-5.1); Sodium 134 mmol/L (136-145); Total Protein 6.6 g/dL (6.6-8.7)
[2025-01-01] MEDS: heparin 5,000 unit/mL INJ 1 mL 5000 UNIT SUBCUT ×2 (05:54→13:50)
[2025-01-01 08:00] VITALS: BP 118/65; PULSE 72; RESP 20; TEMP 36.7; O2SAT 94
[2025-01-01 08:38] VITALS: O2SAT 94
--- NOTE | 2025-01-01 08:50 | P.PN_ITS ---
Subjective 2 Subjective: Patient was ambulating with physical therapy earlier this morning. She continues to have chronic generalized pain. Right arm hematoma improving and is soft, intact sensation of the hand. Hemoglobin improved to 9.1 today. Vitals/I&O/Wt Last Vital Signs Temp 99.5 F 01/01/25 04:16 Pulse 72 01/01/25 04:16 Resp 20 H 01/01/25 04:16 BP 107/60 01/01/25 04:16 Pulse Ox 94 01/01/25 08:38 O2 Del Method Room Air 01/01/25 08:38 O2 Flow Rate 4 12/31/24 11:46 12/31/24 01/01/25 01/01/25 22:59 06:59 14:59 Output Total 100 / 400 Balance -100 / 220 Weight last 48 hrs Weight 151 lb 7 oz Weight 151 lb Physical Exam 2 Urinary Catheter Management: Brandt: Cath Placed During This Visit: yes, but has since been removed by the nurse Reason for Continuing Indwelling Catheter: Decision to DC Catheter Urinary Catheter Date of Insertion: 12/27/24 Urinary Catheter Time of Insertion: 13:25 Date Urinary Catheter Removed: 12/29/24 Time Urinary Catheter Discontinued: 03:30 Data 01/01/25 04:21 01/01/25 04:21 A&P PDMP PDMP Reviewed: Not Reviewed Coding Level of Care Code Acute Code for Chg Micki
[2025-01-01] MEDS: ondansetron 2 mg/ML SDV 2 mL 4 MG IVP (10:15)
[2025-01-01] MEDS: ranolazine (12HR) 500 mg Tablet PO (10:17)
--- NOTE | 2025-01-01 10:30 | PC.SOCIAL ---
IMM Updated Updated pt on IMM. No questions voiced. Provided pt a copy. Initialed, dated, & timed copy in chart.
--- NOTE | 2025-01-01 10:32 | PC.NURSE ---
took over pt care Introduce this nurse. pt stated she is nauseated. prn zofran given and pt able to take her oral meds. she reports of right arm pain from left heart cath and accessed was on right radial artery. arm is bruised and tender to touch.
[2025-01-01 12:00] VITALS: BP 109/56; PULSE 60; RESP 16; O2SAT 97
--- NOTE | 2025-01-01 13:47 | P.DS_ITS ---
Discharge Providers Date of Admission: 12/27/24 12:32 Date of Discharge: January 01, 2025 Attending Provider at Admission: Chava Mckinley M.D Attending Provider at Discharge: Chava Mckinley M.D Primary Care Provider: Diana Garcia Diagnoses at Discharge Discharge Diagnosis 1. Non-ST elevation MS (NSTEMI): 2. Coronary artery disease: 3. Diastolic congestive heart failure: Reason for Visit Reason for Visit: ISMAEL cruz in 12/25 SOB Brief History: Tosha Perry is a 69 year old female with past medical history of IVC filter, GI bleed, DVT, PAD s/p left leg stent, iron deficiency anemia, CKD, hypothyroidism, spinal stenosis with chronic posterior neck pain, CAD admitted 12/24/24 with chest pain elevated troponin (peak 110) underwent TOMMIE x 2 to the left circumflex, jailed the OM, treated with ostial OM1 balloon angioplasty. She recovered well after procedure, chest pain had resolved until last night when she began having a sharp burning pain in the left chest. It resolved for a time and returned again this morning, with radiation up into the jaw, and is present now. She has some ST depression in the lateral leads, baseline troponin 803. She has heparin and nitroglycerin infusion running now. LVEF last admission was 70%. Hospital Course Hospital Course She underwent coronary angiogram on 12/27/2024 revealing patent previously placed left circumflex stents, LAD stenosis found significant by iFR treated with TOMMIE x 2. She developed swelling in the right arm where the heparin infusion had infiltrated, treated with supportive care elevation and ice, it is improving, hematoma becoming softer and smaller, sensation of the hand normal. She had some vomiting on 12/30/2024 seem to have blood in it. She underwent EGD yesterday, no source of bleeding identified. No drop in hemoglobin, it is 9.1 today, up from 8.3 yesterday. She is requesting to go home today. She ambulated with physical therapy and a walker this morning. She has required lidocaine patches and pain medication for her chronic pain issues, on discharge today she will resume her home medications however I am sending lidocaine patches for her. She can continue Ranexa, aspirin, Plavix, atorvastatin, furosemide dose reduced to 20 mg daily. She will also have home health visit set up. Follow-up in the cardiology clinic in 2 weeks. Physical Exam Const: COMMON NORMALS: no acute distress and patient oriented x3 GENERAL APPEARANCE: cooperative and comfortable ORIENTATION/CONSCIOUSNESS: Yes awake, Yes oriented to person, Yes oriented to place and Yes oriented to time Chest: COMMONS NORMALS: normal inspection of the chest and normal palpation of entire chest wall CHEST: Yes Symmetrical chest wall rise Resp: COMMON NORMALS: normal respiratory effort, No retractions, No use of accessory muscles and clear to auscultation bilaterally EFFORT & INSPECTION: Yes symmetric chest movement AUSCULTATION: clear to auscultation bilaterally Cardio: COMMON NORMALS: regular rate, regular rhythm, S1 normal heart sound present, S2 normal heart sound present, No gallops present (Cardio), No clicks present (Cardio), No murmurs present (Cardio) and No rub (Cardio) RATE: regular rate RHYTHM: regular rhythm HEART SOUNDS: S1 normal heart sound present and S2 normal heart sound present PERIPHERAL PULSES: radial pulses present Extremity: COMMON NORMALS: no pedal edema Neuro: COMMON NORMALS: patient oriented x3 and moves all extremities SENSORIUM/ORIENTATION: Yes oriented to person, Yes oriented to place and Yes oriented to time Urinary Catheter Management: Brandt: Cath Placed During This Visit: yes, but has since been removed by the nurse Reason for Continuing Indwelling Catheter: Decision to DC Catheter Urinary Catheter Date of Insertion: 12/27/24 Urinary Catheter Time of Insertion: 13:25 Date Urinary Catheter Removed: 12/29/24 Time Urinary Catheter Discontinued: 03:30 Discharge Data Studies Completed and Pending Completed Studies During Hospitalization Category Date Time Status CTA thoracic [CT angio chest [id number]] Stat Cat Scan 12/27/24 13:39 Completed XR abdomen 1V* [id number] Routine Exams 12/29/24 15:17 Completed XR chest 1V portable [id number] Routine Exams 12/30/24 12:46 Completed XR chest 1V portable [id number] Stat Exams 12/27/24 09:00 Completed CV. echo limited [id number] Routine Ultrasound 12/28/24 16:49 Completed US arterial duplex upper extremity RT [CV arterial Ultrasound 12/29/24 09:19 [place] [id number]] Routine Pending at discharge Category Date Time Status [employer] request for service Stat Exams 12/27/24 10:31 Taken Occult Blood Stool [Immunochemical Fecal OCB] Routine Lab 12/28/24 07:33 U ncollected Radiology Impressions Chest CTA 12/27/24 13:39 IMPRESSION: 1. No evidence of pulmonary embolism. 2. No aortic aneurysm or dissection. 3. Extensive subsegmental atelectatic changes in the posterior basal segments of both lower lobes with mild dependent atelectatic changes on the left as well. 4. Mild cardiomegaly. 5. Extensive atherosclerotic coronary artery calcifications. 6. Moderately sized hiatal hernia. Abdomen X-Ray 12/29/24 15:17 IMPRESSION: No small bowel distention identified. Chest X-Ray 12/30/24 12:46 IMPRESSION: Stable findings. Laboratory Results WBC 2.72 10^3/uL (3.29-11.43) L 01/01/25 04:21 RBC 3.30 10^6/uL (3.85-5.65) L 01/01/25 04:21 Hgb 9.10 g/dL (11.27-16.99) L 01/01/25 04:21 Hct 29.1 % (36-47) L 01/01/25 04:21 MCV 88.2 fl (85-98) 01/01/25 04:21 MCH 27.6 pg (27-33) 01/01/25 04:21 MCHC 31.3 g/dL (30-55) 01/01/25 04:21 RDW 16.5 % (12.1-15.1) H 01/01/25 04:21 Plt Count 179 10^3/cmm (157-399) 01/01/25 04:21 MPV 10.1 fL (7.4-10.4) 01/01/25 04:21 Neut % (Auto) 37.9 % 01/01/25 04:21 Lymph % (Auto) 31.6 % 01/01/25 04:21 [place] % (Auto) 24.6 % 01/01/25 04:21 Eos % (Auto) 4.8 % 01/01/25 04:21 Baso % (Auto) 0.7 % 01/01/25 04:21 Neut # (Auto) 1.03 10^3/uL (1.8-7.7) L 01/01/25 04:21 Lymph # (Auto) 0.9 10^3/uL (0.8-4.8) 01/01/25 04:21 [place]arro # (Auto) 0.7 10^3/uL (0.2-0.9) 01/01/25 04:21 Eos # (Auto) 0.1 10^3/uL (0.0-0.8) 01/01/25 04:21 Baso # (Auto) 0.0 10^3/uL (0.0-0.1) 01/01/25 04:21 Nucleated RBC % (auto) 0 % 01/01/25 04:21 Nucleated RBCs # 0.0 /100WBC 01/01/25 04:21 APTT 41.3 SECONDS (23.9-36.7) H 12/27/24 20:53 Sodium 134 mmol/L (136-145) L 01/01/25 04:21 Potassium 4.0 mmol/L (3.5-5.1) 01/01/25 04:21 Chloride 98 mmol/L (98-107) 01/01/25 04:21 Carbon Dioxide 26 mmol/L (22-29) 01/01/25 04:21 Anion Gap 14.0 (5-19) 01/01/25 04:21 BUN 18 mg/dL (8-23) 01/01/25 04:21 Creatinine 1.2 mg/dL (0.5-0.9) H 01/01/25 04:21 GFR Calculation 44.4 mL/min (90-130) L 01/01/25 04:21 Glucose 119 mg/dL (65-115) H 01/01/25 04:21 Calculated Osmolality 281 mOsm/kg (285-295) L 01/01/25 04:21 Calcium 8.8 mg/dL (8.5-10.5) 01/01/25 04:21 Iron 25 ug/dL (37-145) L 12/28/24 03:00 TIBC 172 mcg/dl 12/28/24 03:00 % Saturation 14.5 % (20-50) L 12/28/24 03:00 Unsat Iron Binding 147 ug/dL (112-347) 12/28/24 03:00 Ferritin 171 ng/mL (15-150) H 12/28/24 03:00 Total Bilirubin 0.4 mg/dL (0.15-1.2) 01/01/25 04:21 AST 24 U/L (0-32) 01/01/25 04:21 ALT 12 U/L (0-33) 01/01/25 04:21 Alkaline Phosphatase 155 U/L (35-105) H 01/01/25 04:21 Troponin T Baseline 803 ng/L (0-10) H* 12/27/24 09:15 Total Protein 6.6 g/dL (6.6-8.7) 01/01/25 04:21 Albumin 3.5 g/dL (3.5-5.2) 01/01/25 04:21 Globulin 3.1 g/dL (1.3-4.6) 01/01/25 04:21 Urine Color Yellow (Yellow) 12/27/24 14:30 Urine Appearance Clear (CLEAR) 12/27/24 14:30 Urine pH 7.0 (5-7) 12/27/24 14:30 Ur Specific [place] 1.076 (1.005-1.030) H 12/27/24 14:30 Urine Protein Trace (Negative) A 12/27/24 14:30 Urine Glucose (UA) Negative (Normal) 12/27/24 14:30 Urine Ketones Negative (Negative) 12/27/24 14:30 Urine Blood 3+ (Negative) A 12/27/24 14:30 Urine Nitrate Negative (Negative) 12/27/24 14:30 Urine Bilirubin Negative (Negative) 12/27/24 14:30 Urine Urobilinogen 0.2 mg/dL (Negative) 12/27/24 14:30 Ur Leukocyte Esterase Negative (Negative) 12/27/24 14:30 Urine RBC 51-100 /hpf (0-2) H 12/27/24 14:30 Urine WBC 0-5 /hpf (0-5) 12/27/24 14:30 Ur Squamous Epith Cells 0-5 /hpf (0-5) 12/27/24 14:30 Amorphous Sediment Not Reportable 12/27/24 14:30 Urine Bacteria None seen /hpf (NONE) 12/27/24 14:30 Hyaline Casts 0.40 /lpf 12/27/24 14:30 Vitals Last Vital Signs Temp 98.0 F 01/01/25 08:00 Pulse 60 01/01/25 12:00 Resp 16 01/01/25 12:00 BP 109/56 01/01/25 12:00 Pulse Ox 97 01/01/25 12:00 O2 Del Method Room Air 01/01/25 08:38 O2 Flow Rate 4 12/31/24 11:46 Discharge Plan Discharge Patient Disposition: Home Health Service Condition: Stable Prescriptions: New lidocaine 5 % Adhesive Patch,Medicated 1 patch topical [id number] Qty: 10 0RF ranolazine 500 mg Tablet Extended Release 12 Hr 500 mg PO BID Qty: 180 0RF furosemide 20 mg Tablet 20 mg PO DAILY@0800 Qty: 90 0RF Continued (DME) tens unit for cervical See Rx Instructions .Route .MEDSUPPLY Qty: 1 0RF Rx Instructions: As directed (DME) Bone growth stimulator See Rx Instructions .Route .MEDSUPPLY Qty: 1 0RF Rx Instructions: As directed (DME) Bone growth stimulator See Rx Instructions .Route .MEDSUPPLY Qty: 1 0RF Rx Instructions: As directed albuterol sulfate 90 mcg/actuation HFA aerosol inhaler 1 puff inhalation Q6H PRN (Reason: Shortness Of Breath) Qty: 6.7 0RF (DME) insulin syringes (disposable) 1 mL syringe See Rx Instructions .ROUTE .MEDSUPPLY Qty: 25 3RF Rx Instructions: As directed methotrexate sodium 25 mg/mL solution 20 mg SUBCUT .Q7days Qty: 10 1RF Rx Instructions: ON MONDAYS oxycodone 10 mg tablet 10 mg PO Q8H PRN (Reason: Pain) ropinirole 5 mg tablet 5 mg PO BID Qty: 270 0RF ramelteon 8 mg tablet 8 mg PO BEDTIME atorvastatin 40 mg Tablet 40 mg PO BEDTIME 30 Days Qty: 30 0RF aspirin 81 mg Tablet,Delayed Release (Dr/Ec) 81 mg PO DAILY 30 Days Qty: 30 0RF nitroglycerin 0.4 mg Tablet, Sublingual 0.4 mg sublingual Q5M PRN (Reason: Chest Pain) 30 Days Qty: 30 0RF sucralfate 1 gram tablet 1 g PO BID 30 Days Qty: 60 0RF clopidogrel 75 mg tablet 75 mg PO DAILY 30 Days Qty: 30 0RF pantoprazole [Protonix] 40 mg tablet,delayed release (DR/EC) 40 mg PO Q12H 30 Days Qty: 60 0RF potassium chloride 20 mEq tablet extended release 20 meq PO DAILY Qty: 30 0RF gabapentin 300 mg capsule 300 mg PO TID fluticasone propionate 50 mcg/actuation spray,suspension 1 spray INTRANASAL BID PRN (Reason: allergies) promethazine 12.5 mg tablet 12.5 mg PO Q8H PRN (Reason: Nausea) baclofen 10 mg tablet 5 mg PO Q12H PRN (Reason: Muscle Spasm) Qty: 30 0RF alprazolam [Xanax] 0.25 mg tablet 0.5 mg PO DAILY PRN (Reason: anxiety) Rx Instructions: Do not drive or operate heavy machinery or drink while taking medications levothyroxine 125 mcg tablet 125 mcg PO DAILY Qty: 30 0RF Discontinued furosemide 80 mg tablet 80 mg PO DAILY Discharge Order = DC NOW: Discharge Order (Routine); Ordered 01/01/25 Ordered By: Hallie Glass Referrals: [facility] [Outside] Hallie Glass FNP [Nurse Practitioner, Cardiology] - 01/10/25 2:30 pm Diana Garcia PA [Primary Care Provider, [employer]] - 01/05/25 11:40 am Discharge Diet: Cardiac Discharge Activity: Increase activity as tolerated Patient Instructions: Furosemide (By mouth) (Lasix), Lidocaine (On the skin), Coronary Artery Disease (DC), Coronary Angioplasty (DC), Cardiac Rehabilitation (DC), Coronary Intravascular Stent Placement (DC), Chest Pain Stoplight, GI Post Discharge Instructions w/ Anesthesia, Opioid Safety, Post Angiogram Home Care Instructions, Patient Portal & Cece Instructions Activity Restrictions/Additional Instructions: No lifting over 5 pounds with the right arm until seen on follow-up. Discharge Attestations Time Spent in Discharge Care*: less than 30 min Status at Discharge: Cognitive status at discharge: cognitively intact , Behavioral status at discharge: cooperative , Quality Metrics Clinical Quality Measures [ Acute Myocardial Infaction { Clinical Trial Participant: No; Contraindication to aspirin: None; Aspirin prescribed; Contraindication to statin: None; Statin prescribed; Contraindication to PCI: None; PCI performed;}] Coding Level of Care Code Acute Code for [facility] Diagnoses Non-ST elevation MS (NSTEMI) I21.4 Coronary artery disease I25.10 Diastolic congestive heart failure I50.30
[2025-01-01 14:07] VITALS: BP 106/52; PULSE 72; O2SAT 94
--- NOTE | 2025-01-01 14:31 | P.PN_ITS ---
Subjective 2 Subjective: right arm improving, some tingling in fingers. Vitals/I&O/Wt Last Vital Signs Temp 98.0 F 01/01/25 08:00 Pulse 72 01/01/25 14:07 Resp 16 01/01/25 12:00 BP 106/52 01/01/25 14:07 Pulse Ox 94 01/01/25 14:07 O2 Del Method Room Air 01/01/25 08:38 O2 Flow Rate 4 12/31/24 11:46 12/31/24 01/01/25 01/01/25 22:59 06:59 14:59 Intake Total 840 / 840 Output Total 100 / 400 350 / 350 Balance -100 / 220 490 / 490 Weight last 48 hrs Weight 68.691 kg Weight 68.492 kg Physical Exam 2 Const: COMMON NORMALS: no acute distress, average body habitus and patient oriented x3 HENMT: COMMON NORMALS: normocephalic and atraumatic HEAD & SCALP: n ormocephalic and atraumatic Eye: COMMON NORMALS: Equal, round and reactive pupils present and EOMs intact bilaterally PUPIL: Yes Equal, round and reactive pupils present Neck/C-Spine: COMMON NORMALS: full ROM, no lymphadenopathy, supple and no JVD Lymph: LYMPHATIC: no lymphadenopathy noted Resp: COMMON NORMALS: normal respiratory effort, No retractions and clear to auscultation bilaterally AUSCULTATION: clear to auscultation bilaterally Cardio: COMMON NORMALS: no JVD, regular rate, regular rhythm, S1 normal heart sound present and S2 normal heart sound present RATE: regular rate RHYTHM: regular rhythm HEART SOUNDS: S1 normal heart sound present and S2 normal heart sound present GI: COMMON NORMALS: Soft to palpation, non-tender and No hepatosplenomegaly present PALPATION: Yes Soft to palpation and Yes No hepatosplenomegaly present Extremity: NARRATIVE EXTREMITY EXAM: right forearm with minimal swelling, ecchymosis appears to be resolving. Able to make a fist, having some tingling in fingers. Pulses intact. Neuro: COMMON NORMALS: patient oriented x3 Urinary Catheter Management: Brandt: Cath Placed During This Visit: yes, but has since been removed by the nurse Reason for Continuing Indwelling Catheter: Decision to DC Catheter Urinary Catheter Date of Insertion: 12/27/24 Urinary Catheter Time of Insertion: 13:25 Date Urinary Catheter Removed: 12/29/24 Time Urinary Catheter Discontinued: 03:30 Data 01/01/25 04:21 01/01/25 04:21 A&P Assessment and plan 1. IV infiltration: 2. Unstable angina: 3. Non-ST elevation WY (NSTEMI): Plan: 69 year old female presenting with NSTEMI 1. Non-ST elevation WY (NSTEMI): - s/p PCI on 12/27 per groin (not wrist) - patent prior stents, moderate 50 to 60% stenosis of the LAD, status post PCI with 2 stents. - cont. DAPT. - cont. Ranexa for anginal pain, resolved this AM. - CTA without PE. - Resume home hydrocodone for pain control. 2. Acute bronchitis: Having cough, productive of brownish appearing sputum. - Noted atelectasis on CTA. No suggestion of large PE. Add flutter valve. Robitussin DM. DuoNeb as needed. - appears resolved 3. Atelectasis: Incentive spirometer requested. 4. Anemia: Hemoglobin reviewed, down to 9.3, MCV is 88.6. Requested Hemoccult, iron studies. No obvious outward bleeding. Not had any hematochezia or melena. UA noted with microscopic hematuria, 51-100 RBC. Will need follow-up. Repeat blood counts requested. 5. Unstable angina: As above. 6. Coronary artery disease: Coronary artery disease status post percutaneous coronary intervention : Prior LCX stents patent on today?s evaluation; moderate LAD stenosis abnormal by instantaneous wave-free ratio (iFR) treated with PCI with two stents; continuing secondary prevention. - Continue dual antiplatelet therapy (DAPT). - Continue high-intensity statin. - Monitor telemetry. 7. Chest pain: As above 8. IV infiltration: Right arm intravenous infiltration: Elevated right arm. Avoid blood pressure checks and INR. - did not have radial cath. - Elevate the affected arm. - Avoid blood pressure measurements on the affected arm. - Provide extra pillows for arm support. - ecchymosis looks improved, no edema. - having some tingling in finger tips. Able to make a fist, radial pulse intact. - continue hand exercises, ball squeezing, etc. - Vascular ultrasound was obtained today which did not show any vascular compromise. - Status post EGD this admission. - Hemoglobin at 9.10. - Noted to have a small single localized erosion in the prepyloric area but otherwise no signs of active bleeding were encountered. Can continue DAPT. 9. Urine retention: Urinary retention: Reports urge to void but unable to urinate. - urinary catheter placement for inability to void, now removed. - UA reviewed, without suggestion of UTI - Noted microscopic hematuria, will need follow-up as outpatient. Anxiety : Reports significant anxiety. - Xanax as needed Nausea and vomiting : Resolved. Zofran as needed Peptic ulcer disease with prior gastrointestinal bleeding : History of bleeding ulcers and prior GI bleed. - Continue proton pump inhibitor (PPI). - Continue sucralfate. Seropositive rheumatoid arthritis : Known seropositive RA. - Hold methotrexate for now. Restless legs syndrome : Known RLS. - Continue ropinirole. Hypothyroidism : Known hypothyroidism. - Continue levothyroxine. Chronic pain : Chronic pain acknowledged; uses multiple home medications for pain/neuropathic symptoms. - Continue venlafaxine, gabapentin, and baclofen for chronic pain. - Resume home hydrocodone. Constipation - bowel regimen started - had BM Disposition - able to D/C home when OK with cardiology - follow up with cardiology as indicated PDMP PDMP Reviewed: Not Reviewed Attestations 2 Medical Necessity Statement*: Discharge per cardiology when ready. Time Spent in Patient Care: 16 - 35 minutes (>than 50% of time sp ent in counselling and/or direct pt care on unit) . Coding Level of Care Code Acute Code for [facility] Diagnoses IV infiltration T80.1XXA Unstable angina I20.0 Non-ST elevation WY (NSTEMI) I21.4
--- NOTE | 2025-01-01 15:03 | PC.NURSE ---
Discharge Note Patient discharged to home via private vehicle accompanied by . Discharge instructions reviewed with patient and/or client account representative. Mobile pharmacy medications and/or prescriptions provided. Belongings/home medications returned. Educated pt on new meds dosing,instructed on enrolling in the cardiac rehab. discharge packet provided.
== END 2025-01-01 15:00 | disposition home health service (06) | DRG 322 ==
LOC: ER 09:20 → CCL 10:38 → CSU 20:28
PROVIDERS: Internal Medicine; Nurse Practitioner Family; Student in an Organized Health Care Education/Training Program; Surgery; Admitting Provider Internal Medicine; Emergency Provider Family Medicine; PCP Physician Assistant; Visit Provider Internal Medicine
PROC: 027035Z Dilation of Coronary Artery, One Artery with Two Drug-eluting Intraluminal Devices, Percutaneous Approach (ICD-10-PCS; principal; 2024-12-27 11:00)
PROC: 0DJ08ZZ Inspection of Upper Intestinal Tract, Via Natural or Artificial Opening Endoscopic (ICD-10-PCS; principal; 2024-12-31 10:45)
DX: I21.4 Non-ST elevation (NSTEMI) myocardial infarction (principal); J98.11 Atelectasis; I50.32 Chronic diastolic (congestive) heart failure; J20.9 Acute bronchitis, unspecified; I25.10 Atherosclerotic heart disease of native coronary artery without angina pectoris; T80.89XA Other complications following infusion, transfusion and therapeutic injection, initial encounter; Y82.9 Unspecified medical devices associated with adverse incidents; R33.9 Retention of urine, unspecified; F41.9 Anxiety disorder, unspecified; K21.9 Gastro-esophageal reflux disease without esophagitis; M05.9 Rheumatoid arthritis with rheumatoid factor, unspecified; G25.81 Restless legs syndrome; E03.9 Hypothyroidism, unspecified; R10.9 Unspecified abdominal pain; R11.2 Nausea with vomiting, unspecified; G89.29 Other chronic pain; M48.00 Spinal stenosis, site unspecified; D63.1 Anemia in chronic kidney disease; N18.30 Chronic kidney disease, stage 3 unspecified; D50.9 Iron deficiency anemia, unspecified; I73.9 Peripheral vascular disease, unspecified; K59.00 Constipation, unspecified; Z79.02 Long term (current) use of antithrombotics/antiplatelets; Z79.891 Long term (current) use of opiate analgesic; Z79.4 Long term (current) use of insulin; Z95.820 Peripheral vascular angioplasty status with implants and grafts; Z87.01 Personal history of pneumonia (recurrent); Z87.891 Personal history of nicotine dependence; Z86.718 Personal history of other venous thrombosis and embolism; Z95.5 Presence of coronary angioplasty implant and graft; Z95.828 Presence of other vascular implants and grafts
CPT/HCPCS: 36415; 43235; 51702; 71045; 71275; 74018; 80048; 80053; 81001; 82728; 83540; 83550; 84484; 85018; 85025; 85347; 85730; 87086; 92978; 93005; 93308; 93571; 93931; 96365; 96367; 96372; 96375; 99152; 99153; 99285; C1725; C1753; C1769; C1874; C1887; C1894; C9600; J1171; J1644; J2250; J2270; J2405; J2470; J2704; J3490; J7030; J7120; J9999; P9045; Q9967

== ENCOUNTER 2025-01-03 07:04 | Emergency (ER) | payer MEDICARE, OTHER, SELFPAY ==
[2025-01-03] VITALS (8 sets, daily range): BP systolic 96–134; BP diastolic 49–84; PULSE 57–70; RESP 16–22; TEMP 36.7; O2SAT 90–95; BMI 24.9
--- NOTE | 2025-01-03 07:04 | ECG_ITS ---
[facility] Test Date: 2025-01-03 Pat Name: Tosha Perry Department: Room: Gender: Female [employer]: : [id number] Requested By: Sammy Khoury Order Number: [id number] Mirela MD: Clovis Martin M.D. Measurements Intervals Jay Rate: 71 P: 66 DC: 185 QRS: 37 QRSD: 88 T: 48 QT: 412 QTc: 451 Interpretive Statements SINUS RHYTHM Compared to ECG 12/30/2024 10:02:07 Myocardial infarct finding no longer present Electronically Signed On 01-03-2025 21:01:16 CDT by Clovis Martin M.D. [id number]
--- NOTE | 2025-01-03 07:06 | XRR_ITS ---
PROCEDURE INFORMATION: Exam: XR Chest Exam date and time: 01/03/2025 7:19 AM Age: 69 years old Clinical indication: Pain; Angina pectoris; Prior surgery; Surgery date: 6+ months; Surgery type: Cardiac stents; Additional info: Chest pain TECHNIQUE: Imaging protocol: Radiologic exam of the chest. Views: 1 view. COMPARISON: CR (CHEST, ) 12/30/2024 1:05 PM FINDINGS: Lungs: Low lung volumes. Minimal streaky bibasilar atelectasis seen. Pleural spaces: Unremarkable. No pleural effusion. No pneumothorax. Heart/Mediastinum: Stable cardiomediastinal silhouette. Vasculature: An IVC filter is in place. Bones/joints: Cervicothoracic spine fusion hardware re-identified. Organs: Cholecystectomy clips project over the right upper quadrant. XR/XR chest 1V portable [id number] IMPRESSION: No evidence of active cardiopulmonary disease.
[2025-01-03 07:42] LABS: Troponin(5th) Baseline 44 ng/L (0-10)
[2025-01-03 07:46] LABS: Alanine Aminotransferase 14 U/L (0-33); Albumin Level 3.7 g/dL (3.5-5.2); Alkaline Phosphatase 162 U/L (35-105); Anion Gap 22.4 (5-19); Aspartate Amino Transferase 29 U/L (0-32); Blood Urea Nitrogen 24 mg/dL (8-23); Calcium 9.2 mg/dL (8.5-10.5); Carbon Dioxide 20 mmol/L (22-29); Chloride 97 mmol/L (98-107); Creatinine Clr Calc Pharmacy 34.9022; Globulin 4.3 g/dL (1.3-4.6); Glucose 115 mg/dL (65-115); Osmolality Calculated 287 mOsm/kg (285-295); Potassium 3.4 mmol/L (3.5-5.1); Sodium 136 mmol/L (136-145); Total Protein 8.0 g/dL (6.6-8.7)
--- NOTE | 2025-01-03 07:57 | W.ED.CHESTPA ---
HPI - Chest Pain General: Chief Complaint: Chest Pain Stated Complaint: cp Time Seen by Provider: 01/03/25 07:05 History of Present Illness: This 69-year-old female who presents to the emergency room with chest pain. Patient was hospitalized on 2 separate occasions earlier this month she initially had 2 stents placed in the circumflex return the day after discharge and I had a second NSTEMI and had 2 stents placed in the LAD. She returns today with onset of chest pain this morning while at rest. Associated symptoms: Deny abdominal pain, dyspnea or fever(s) Related Data Home Medications ?Medication ?Instructions ?Recorded ?Confirmed fluticasone propionate 50 1 spray intranasal BID PRN 09/27/23 01/03/25 mcg/actuation nasal allergies spray,suspension gabapentin 300 mg capsule 300 mg PO TID 09/27/23 01/03/25 oxycodone 10 mg tablet 10 mg PO Q8H PRN Pain 12/29/23 01/03/25 ramelteon 8 mg tablet 8 mg PO BEDTIME 12/24/24 01/03/25 alprazolam 0.25 mg tablet (Xanax) 0.5 mg PO DAILY PRN anxiety 12/27/24 01/03/25 folic acid 1 mg tablet 1 mg PO DAILY 01/03/25 01/03/25 furosemide 80 mg tablet 80 mg PO DAILY 01/03/25 01/03/25 promethazine 25 mg tablet 25 mg PO Q6H PRN Nausea 01/03/25 01/03/25 sucralfate 1 gram tablet 1 g PO BID 01/03/25 01/03/25 Previous Rx's ?Medication ?Instructions ?Recorded Bone growth stimulator #1 ea 01/22/23 Bone growth stimulator #1 ea 02/05/23 tens unit for cervical #1 ea 12/16/23 albuterol sulfate 90 mcg/actuation 1 puff inhalation Q6H PRN 12/20/23 aerosol inhaler Shortness Of Breath #6.7 grams insulin syringes (disposable) 1 mL #25 ea 05/30/24 methotrexate sodium 25 mg/mL 20 mg (0.8 mL) SUBCUT .Q7days #10 05/30/24 injection solution mL ropinirole 5 mg tablet 5 mg PO BID #270 tabs 10/25/24 baclofen 10 mg tablet 5 mg (1/2 x 10 mg) PO Q12H PRN 11/07/24 Muscle Spasm #30 tabs aspirin 81 mg tablet,delayed 81 mg PO DAILY 30 days #30 tabs 12/26/24 release atorvastatin 40 mg tablet 40 mg PO BEDTIME 30 days #30 tabs 12/26/24 clopidogrel 75 mg tablet 75 mg PO DAILY 30 days #30 tabs 12/26/24 nitroglycerin 0.4 mg sublingual 0.4 mg sublingual Q5M PRN Chest 12/26/24 tablet Pain 30 days #30 tabs pantoprazole 40 mg tablet,delayed 40 mg PO Q12H 30 days #60 tabs 12/26/24 release (Protonix) potassium chloride 20 mEq 20 meq PO DAILY #30 tabs 12/26/24 tablet,extended release levothyroxine 125 mcg tablet 125 mcg PO DAILY #30 tabs 01/01/25 ranolazine 500 mg tablet,extended 500 mg PO BID #180 tabs 01/01/25 release,12 hr lidocaine 5 % topical patch 1 patch topical [id number] #10 ea 01/02/25 albuterol sulfate 90 mcg/actuation 2 inh inhalation Q4H PRN shortness 01/03/25 aerosol inhaler of breath or wheezing #18 grams doxycycline hyclate 100 mg capsule 100 mg PO BID 10 days #20 caps 01/03/25 methylprednisolone 4 mg tablets in See Rx Instructions PO .COMPLEX 01/03/25 a dose pack (Medrol (See)) #21 ea Allergies Allergy/AdvReac Type Severity Reaction Status Date / Time venlafaxine (From Effexor) Allergy Severe ADR-Agitate Verified 12/27/24 13:57 d ibuprofen Allergy Unknown ADR-Anxiety Verified 09/23/24 04:24 tizanidine Allergy Unknown Unknown Verified 09/23/24 04:24 acetaminophen Allergy ADR-Anxiety Verified 09/23/24 04:24 amitriptyline Allergy ADR-Agitate Verified 09/23/24 04:24 d diphenhydramine (From Allergy ADR-Agitate Verified 09/23/24 04:24 Benadryl) d morphine Allergy ADR-Halluci Verified 09/23/24 04:24 nating prochlorperazine (From Allergy Unknown Verified 09/23/24 04:24 Compazine) leflunomide AdvReac Intermediate GI adverse Verified 09/23/24 04:24 reactions sulfasalazine AdvReac Intermediate ADR-Nausea Verified 09/23/24 04:24 and acid reflux Review of Systems Const: Denies: fever(s) or chills Card: Denies: chest pain Resp: Denies: dyspnea GI: Denies: abdominal pain : Denies: dysuria, urinary frequency or urinary urgency Musc: Denies: neck pain or back pain Skin/Breast: Denies: rash PFSH ED PFSH: Medical History Coronary artery disease Pneumonia DVT (deep venous thrombosis) Acute GI bleeding History of deep vein thrombosis GERD (gastroesophageal reflux disease) Pre-operative clearance Acute anemia Hematoma complicating a procedure Cervical adenopathy GI bleed Osteoarthritis, shoulder Cervical spondylosis with myelopathy GERD with esophagitis Allergic rhinitis due to allergen RLS (restless legs syndrome) Substance or medication-induced sleep disorder, insomnia type Anxiety and depression High risk medication use Seropositive rheumatoid arthritis of multiple sites Extrapyramidal and movement disorder CKD (chronic kidney disease) stage 3, GFR 30-59 ml/min Lung nodule, solitary Prediabetes Hyperlipidemia Iron deficiency anemia Hypothyroidism Surgical History S/P insertion of IVC (inferior vena caval) filter Status post cervical spinal fusion History of cholecystectomy History of appendectomy History of delivery History of hysterectomy with bilateral oophorectomy History of ankle surgery left Previous back surgery Social History Smoking and tobacco/nicotine status: former use of tobacco/nicotine Quit status (tobacco/nicotine): has quit using Year quit tobacco: 2009 Former quit date comment: Smoked for 9 months Alcohol intake: current Alcohol intake frequency: holidays/special occasions only Substance/Drug Use: never Physical Exam Const: ORIENTATION/CONSCIOUSNESS: Yes awake, Yes oriented to person, Yes oriented to place and Yes oriented to time HENMT: COMMON NORMALS: normocephalic, atraumatic and hearing grossly normal bilaterally HEAD & SCALP: normocephalic and atraumatic Resp: COMMON NORMALS: normal respiratory effort, No retractions, No use of accessory muscles and clear to auscultation bilaterally AUSCULTATION: clear to auscultation bilaterally Cardio: COMMON NORMALS: regular rate, regular rhythm and No murmurs present (Cardio) RATE: regular rate RHYTHM: regular rhythm GI: COMMON NORMALS: Soft to palpation and No hepatosplenomegaly present AUSCULTATION: Yes normoactive bowel sounds PALPATION: Yes Soft to palpation, No Tenderness to palpation present (GI), No Guarding due to palpation present (GI) and Yes No hepatosplenomegaly present Extremity: COMMON NORMALS: normal to inspection, capillary refill normal, no clubbing, cyanosis or edema, no calf tenderness and no pedal edema Neuro: SENSORIUM/ORIENTATION: Yes oriented to person, Yes oriented to place and Yes oriented to time Skin: COMMON NORMALS: no rashes or lesions noted GENERAL SKIN EXAM: no rashes or lesions noted Course Vital Signs: Vital signs: Vital Signs Temperature 98.1 F 01/03/25 07:13 Pulse Rate 65 01/03/25 11:25 Respiratory Rate 16 01/03/25 11:25 Blood Pressure 114/84 01/03/25 11:24 Pulse Oximetry 95 01/03/25 11:25 Oxygen Delivery Me thod Room Air 01/03/25 11:25 Fraction of Inspir ed Oxygen 21 01/03/25 11:25 MDM - Chest Pain Medical Decision Making Cardiac enzymes unchanged EKG did not show any acute changes patient. Previous angiograms reviewed no further disease present the last time she return to there was some known stenosis that had not been treated because was not previously a culprit lesion that was of concern that was stented at the second time there is no other coronary artery disease at that time she tells me she has been regularly taking her medications. Her pain is improved at the time of discharge she having no further discomfort. Chest x-ray was unremarkable there is no sign of decompensated failure discharge patient home return if she has further symptoms. Medical Records I reviewed the patient's medical records. Lab Data I reviewed the patient's lab results. 01/03/25 08:30 01/03/25 07:13 Radiology Impressions Chest X-Ray 01/03/25 07:06 IMPRESSION: No evidence of active cardiopulmonary disease. Laboratory Results WBC 5.93 10^3/uL (3.29-11.43) 01/03/25 08:30 Corrected WBC Cancelled 01/03/25 07:13 RBC 3.36 10^6/uL (3.85-5.65) L 01/03/25 08:30 Hgb 9.40 g/dL (11.27-16.99) L 01/03/25 08:30 Hct 28.7 % (36-47) L 01/03/25 08:30 MCV 85.4 fl (85-98) 01/03/25 08:30 MCH 28.0 pg (27-33) 01/03/25 08:30 MCHC 32.8 g/dL (30-55) 01/03/25 08:30 RDW 16.4 % (12.1-15.1) H 01/03/25 08:30 Plt Count 171 10^3/cmm (157-399) 01/03/25 08:30 MPV 10.1 fL (7.4-10.4) 01/03/25 08:30 Gran % Cancelled 01/03/25 07:13 Neut % (Auto) 62.3 % 01/03/25 08:30 Lymph % (Auto) 18.7 % 01/03/25 08:30 [place] % (Auto) 16.9 % 01/03/25 08:30 Eos % (Auto) 1.3 % 01/03/25 08:30 Baso % (Auto) 0.5 % 01/03/25 08:30 Neut # (Auto) 3.69 10^3/uL (1.8-7.7) 01/03/25 08:30 Lymph # (Auto) 1.1 10^3/uL (0.8-4.8) 01/03/25 08:30 [place] # (Auto) 1.0 10^3/uL (0.2-0.9) H 01/03/25 08:30 Eos # (Auto) 0.1 10^3/uL (0.0-0.8) 01/03/25 08:30 Baso # (Auto) 0.0 10^3/uL (0.0-0.1) 01/03/25 08:30 Absolute Gran (auto) Cancelled 01/03/25 07:13 Nucleated RBC % (auto) 0 % 01/03/25 08:30 Nucleated RBCs # 0.0 /100WBC 01/03/25 08:30 Sodium 136 mmol/L (136-145) 01/03/25 07:13 Potassium 3.4 mmol/L (3.5-5.1) L 01/03/25 07:13 Chloride 97 mmol/L (98-107) L 01/03/25 07:13 Carbon Dioxide 20 mmol/L (22-29) L 01/03/25 07:13 Anion Gap 22.4 (5-19) H 01/03/25 07:13 BUN 24 mg/dL (8-23) H 01/03/25 07:13 Creatinine 1.4 mg/dL (0.5-0.9) H 01/03/25 07:13 GFR Calculation 37.2 mL/min (90-130) L 01/03/25 07:13 Glucose 115 mg/dL (65-115) 01/03/25 07:13 Calculated Osmolality 287 mOsm/kg (285-295) 01/03/25 07:13 Calcium 9.2 mg/dL (8.5-10.5) 01/03/25 07:13 Total Bilirubin 0.7 mg/dL (0.15-1.2) 01/03/25 07:13 AST 29 U/L (0-32) 01/03/25 07:13 ALT 14 U/L (0-33) 01/03/25 07:13 Alkaline Phosphatase 162 U/L (35-105) H 01/03/25 07:13 Troponin T Baseline 44 ng/L (0-10) H 01/03/25 07:13 Troponin T 120 Minute 39.33 ng/L (0-10) H 01/03/25 09:26 Delta Troponin T -4.67 ABS# (0-10) L 01/03/25 09:26 NT-Pro-B Natriuret Pep 1797 pg/mL (0-125) H 01/03/25 07:13 Total Protein 8.0 g/dL (6.6-8.7) 01/03/25 07:13 Albumin 3.7 g/dL (3.5-5.2) 01/03/25 07:13 Globulin 4.3 g/dL (1.3-4.6) 01/03/25 07:13 All radiology interpretation(s) finalized by discharge EKG Data EKG 1: Interpretation: EKG 01/03/2025 7:04 AM sinus rhythm with a rate of 71 parable 185 QTc [address] changes noted compared to EKG from 12/30/2024 EKG 2: Interpretation: EKG 01/03/2025 9:02 AM sinus bradycardia rate of 58 OK interval 198 QTc 432. Significant artifact at baseline no apparent acute ST elevation. Given baseline difficult to read EKG was repeated EKG 3: Interpretation: EKG 01/03/2025 9:06 AM sinus bradycardia rate of 59 OK interval 188 QTc 432 baseline significantly improved from EKG done at just a few minutes prior no signs of acute ST elevation at this time. Discharge Plan Discharge Patient Disposition: Home Clinical Impression: Acute exacerbation of chronic obstructive pulmonary disease, Atypical chest pain Condition: Stable Prescriptions: New doxycycline hyclate 100 mg capsule 100 mg PO BID 10 Days Qty: 20 0RF methylprednisolone [Medrol (See)] 4 mg tablets,dose pack See Rx Instructions .ROUTE .COMPLEX Qty: 21 0RF Rx Instructions: orally per package directions albuterol sulfate 90 mcg/actuation HFA aerosol inhaler 2 inh INHALATION Q4H PRN (Reason: shortness of breath or wheezing) Qty: 18 0RF No Action (DME) tens unit for cervical See Rx Instructions .Route .MEDSUPPLY Qty: 1 0RF Rx Instructions: As directed (DME) Bone growth stimulator See Rx Instructions .Route .MEDSUPPLY Qty: 1 0RF Rx Instructions: As directed (DME) Bone growth stimulator See Rx Instructions .Route .MEDSUPPLY Qty: 1 0RF Rx Instructions: As directed albuterol sulfate 90 mcg/actuation HFA aerosol inhaler 1 puff inhalation Q6H PRN (Reason: Shortness Of Breath) Qty: 6.7 0RF (DME) insulin syringes (disposable) 1 mL syringe See Rx Instructions .ROUTE .MEDSUPPLY Qty: 25 3RF Rx Instructions: As directed methotrexate sodium 25 mg/mL solution 20 mg SUBCUT .Q7days Qty: 10 1RF Rx Instructions: ON MONDAYS lidocaine 5 % adhesive patch,medicated 1 patch topical Qty: 10 0RF oxycodone 10 mg tablet 10 mg PO Q8H PRN (Reason: Pain) ropinirole 5 mg tablet 5 mg PO BID Qty: 270 0RF ramelteon 8 mg tablet 8 mg PO BEDTIME atorvastatin 40 mg Tablet 40 mg PO BEDTIME 30 Days Qty: 30 0RF aspirin 81 mg Tablet,Delayed Release (Dr/Ec) 81 mg PO DAILY 30 Days Qty: 30 0RF nitroglycerin 0.4 mg Tablet, Sublingual 0.4 mg sublingual Q5M PRN (Reason: Chest Pain) 30 Days Qty: 30 0RF clopidogrel 75 mg tablet 75 mg PO DAILY 30 Days Qty: 30 0RF pantoprazole [Protonix] 40 mg tablet,delayed release (DR/EC) 40 mg PO Q12H 30 Days Qty: 60 0RF potassium chloride 20 mEq tablet extended release 20 meq PO DAILY Qty: 30 0RF sucralfate 1 gram tablet 1 g PO BID furosemide 80 mg tablet 80 mg PO DAILY promethazine 25 mg tablet 25 mg PO Q6H PRN (Reason: Nausea) folic acid 1 mg tablet 1 mg PO DAILY gabapentin 300 mg capsule 300 mg PO TID fluticasone propionate 50 mcg/actuation spray,suspension 1 spray INTRANASAL BID PRN (Reason: allergies) baclofen 10 mg tablet 5 mg PO Q12H PRN (Reason: Muscle Spasm) Qty: 30 0RF alprazolam [Xanax] 0.25 mg tablet 0.5 mg PO DAILY PRN (Reason: anxiety) Rx Instructions: Do not drive or operate heavy machinery or drink while taking medications ranolazine 500 mg Tablet Extended Release 12 Hr 500 mg PO BID Qty: 180 0RF levothyroxine 125 mcg tablet 125 mcg PO DAILY Qty: 30 0RF Discharge Orders: Discharge ED (Routine); Ordered 01/03/25 Ordered By: Sammy Plaza Referrals: Diana Garcia PA [Primary Care Provider, [facility]] Patient Instructions: Opioid Safety, Pain Management, Patient Portal & Cece Instructions Activity Restrictions/Additional Instructions: Thank you for choosing [facility] for your healthcare needs today. It is very important that you follow up as instructed or that you return to the Emergency Department should you have concerns or if your condition changes or worsens in any way. Emergency department visits are focused on emergent conditions, in some cases you may require further evaluation on an outpatient basis. You were seen in the emergency room with complaint of chest comfort your cardiac enzymes and EKG did not show any acute changes chest x-ray was normal. He would have a slight bit of wheezing will discharge home with a steroid taper and a course of doxycycline. Continue all of your medications. Particularly your aspirin and clopidogrel. (Please note that included in your discharge packet is information concerning opioid safety and pain management. This information is given to all patients were discharged from the ER regardless of their discharge diagnosis or the medicines they usually take or are prescribed.) Print Language: New Zealander Coding Level of Care Code ED Humidifier Operator for Maribel Sweet
[2025-01-03] MEDS: nitroglycerin 1 gm/inch oint Pkt 0.5 INCH TOPICAL (08:05)
[2025-01-03 08:30] LABS: NT Pro B Type Natriuretic Pept 1797 pg/mL (0-125)
[2025-01-03 08:43] LABS: Hematocrit 28.7 % (36-47); Hemoglobin 9.40 g/dL (11.27-16.99); Mean Corpuscular HGB Conc 32.8 g/dL (30-55); Mean Corpuscular Hemoglobin 28.0 pg (27-33); Mean Corpuscular Volume 85.4 fl (85-98); Nucleated Red Blood Cells % 0 %; Platelet Count 171 10^3/cmm (157-399); Red Blood Count 3.36 10^6/uL (3.85-5.65); White Blood Count 5.93 10^3/uL (3.29-11.43)
[2025-01-03 09:01] LABS: Slide Review Slide Review Perform
[2025-01-03] MEDS: ondansetron 2 mg/ML SDV 2 mL 4 MG IVP (09:01)
--- NOTE | 2025-01-03 09:02 | ECG_ITS ---
[facility] Date: 2025[facility]03 Pat Name: Tosha Perry Department: Room: Gender: Female Business Support Professional: : 1955 Requested By: Sammy Khoury Order Number: [id number] Mirela MD: Clovis Martin M.D. Measurements Intervals [place] Rate: 58 P: 80 [place]: 190 QRS: 54 QRSD: 93 T: 86 QT: 439 QTc: 432 Interpretive Statements SINUS BRADYCARDIA LOW QRS VOLTAGE IN PRECORDIAL LEADS ABNORMAL ECG Electronically Signed On 01-03-2025 22:25:41 CDT by Clovis Martin M.D. [email or web address]
[2025-01-03] MEDS: morphine 4 mg/mL SDV 1 mL 2 MG IVP ×2 (09:04→10:31)
[2025-01-03 09:51] LABS: Troponin 5 2HR 39.33 ng/L (0-10); Troponin 5 2HR Delta -4.67 ABS# (0-10)
--- NOTE | 2025-01-03 10:12 | PC.NURSE ---
nitro paste removed by ED provider @[id number]
--- NOTE | 2025-01-03 11:23 | PC.NURSE ---
discharge delayed d/t breathing tx ordered; pending resp admin
[2025-01-03] MEDS: methylPREDNISolone sod succ 125 mg/2 mL INJ IVP (11:28)
--- NOTE | 2025-01-03 11:42 | PC.NURSE ---
truck technician removed IV, catheter intact.
--- NOTE | 2025-01-03 13:06 | ECG_ITS ---
[facility]: [facility]25[facility]03 Pat Name: Tosha Perry Department: Room: Gender: Female License Issuer: : 1955 Requested By: Sammy Khoury Order Number: [id number] Mirela MD: Clovis Martin M.D. Measurements Intervals [place] Rate: 59 P: 67 [place]: 188 QRS: 42 QRSD: 90 T: 11 QT: 436 QTc: 432 Interpretive Statements SINUS BRADYCARDIA LOW QRS VOLTAGE IN PRECORDIAL LEADS [QRS DEFLECTION < 1.0 mV IN CHEST LEADS] NONSPECIFIC T WAVE ABNORMALITY Compared to ECG 01/03/2025 09:02:35 NO SIGNIFICANT CHANGE Electronically Signed On 01-03-2025 22:27:54 CDT by Clovis Martin M.D. [id number]
== END 2025-01-03 11:42 | disposition home or self-care (01) ==
PROVIDERS: Emergency Provider Family Medicine; PCP Physician Assistant
DX: J44.1 Chronic obstructive pulmonary disease with (acute) exacerbation (principal); R07.89 Other chest pain; Z79.82 Long term (current) use of aspirin; Z79.02 Long term (current) use of antithrombotics/antiplatelets; Z87.891 Personal history of nicotine dependence; E78.5 Hyperlipidemia, unspecified; I25.10 Atherosclerotic heart disease of native coronary artery without angina pectoris; N18.30 Chronic kidney disease, stage 3 unspecified
CPT/HCPCS: 36415; 71045; 80053; 83880; 84484; 85025; 93005; 94640; 96361; 96374; 96375; 99285; J2270; J2405; J2919; J7040; J9999

== ENCOUNTER 2025-01-05 07:55 | Observation (INO) | payer MEDICARE, OTHER, SELFPAY ==
--- OUTSIDE RECORDS SUMMARY | 2025-01-01 09:48 | XMS_ITS ---
Author Organization [facility] Address [address] [place] [address] Care Team Providers Care Ankle Patch Molder Name Role Phone Diana Galvan Primary Care Provider Mode Leavitt [phone] REASON FOR VISIT WP-MO 2nd Month ERx Medications Medication SIG (Take, Route, Frequency, Duration) Notes Start Date End Date Status oxyCODONE HCl 10 MG Tablet 1 tablet Orally every 8 hrs; Duration: 30 days As needed Do not exceed 3 per day Fill on 01/07/2025 01/01/2025 02/06/2025 Active Encounters Encounter Location Date Provider Diagnosis [facility] [place] [address] [facility] [place] [address] 01/01/2025 Mode Cabello Other spondylosis with radiculopathy, cervical region M47.22 Assessments Encounter Date Diagnosis (ICD Code) Assessment Notes Treatment Notes Treatment Clinical Notes Section Notes 01/01/2025 Other spondylosis with radiculopathy, cervical region (ICD-10 - M47.22) Plan Of Treatment Medication Medication Name Sig Start Date Stop Date Notes oxyCODONE HCl 10 MG Tablet 1 tablet Orally every 8 hrs; Duration: 30 days 01/01/2025 02/06/2025 Fill on 01/07/2025 Next Appt Details Provider Name:Mode Cabello, 01/31/2025 01:20:00 PM, [address] [place], [address], Progress Notes * BARRY VANOB:[birth year] (69 yo F)Acc No.[id number]:01/01/2025 Patient: BARRY LIVINGSTON :1955 A ge:69 Y S ex:Female Address:[address] [place] [address], [id number] * Refills Continue oxyCODONE HCl Tablet, 10 MG, Orally, 90 Tablet, 1 tablet, every 8 hrs, As needed Do not exceed 3 per day, 30 days, Refills=0 Subjective: * Chief Complaints: * W P-MO 2nd Month ERx Assessment: * Assessment: 1. O ther spondylosis with radiculopathy, cervical region - M47.22 Plan: * Treatment: * true * Date: Generated for Shen lindo/Sindy/Chandler on: 0 01/05/2025 08:06 AM CDT
[2025-01-05] VITALS (11 sets, daily range): BP systolic 102–148; BP diastolic 46–96; PULSE 58–98; RESP 16–28; TEMP 36.9–37.1; O2SAT 91–98; BMI 24.0
--- NOTE | 2025-01-05 07:56 | XR_ITS ---
WS: [id number] Exam: XR chest 1V portable [id number] Date/Time of Exam: 01/05/2025 7:57 AM Reason For Exam: chest pain Comparison 01/03/2025. Lungs are fully expanded and clear. Cardiomediastinal silhouette is unremarkable for technique. No pleural effusions. Signs of coronary artery stenting. Probable hiatal hernia. Fusion hardware partially visualized in the upper T-spine. IVC filter noted. XR/XR chest 1V portable [id number] IMPRESSION: 1. No acute cardiopulmonary finding.
--- NOTE | 2025-01-05 07:56 | ECG_ITS ---
[facility] Date: 2025-[facility]05 Pat Name: Tosha Perry Department: Room: Gender: Female Shot Bagger: : 1955 Requested By: Mindy Khoury Order Number: [id number] Reading MD: TESSA AZEVEDO Measurements Intervals [place] Rate: 80 P: 62 [place]: 172 QRS: 14 QRSD: 200 T: 76 QT: 507 QTc: 587 Interpretive Statements SINUS RHYTHM WITH OCCASIONAL VENTRICULAR PREMATURE COMPLEXES INTRAVENTRICULAR CONDUCTION DELAY [130+ ms QRS DURATION] PROBABLE INFERIOR MYOCARDIAL INFARCTION , PROBABLY OLD [35 ms Q WAVE IN II/aVF] Compared to ECG 01/03/2025 09:06:18 Ventricular premature complex(es) now present Intraventricular conduction delay now present Myocardial infarct finding now present Sinus bradycardia no longer present T-wave abnormality no longer present Electronically Signed On 01-06-2025 21:35:35 CDT by TESSA AZEVEDO [email or web address]
--- NOTE | 2025-01-05 08:00 | W.ED.CHESTPA ---
HPI - Chest Pain General: Chief Complaint: Chest Pain Stated Complaint: chest pain - SOB Time Seen by Provider: 01/05/25 07:55 History of Present Illness: 69-year-old female with a history of coronary artery disease status post PCI around 9 days ago where she was found to have patent stents from the past and 50 to 60% stenosis of the LAD and new stents to the circumflex, DVT, GI bleed, chronic kidney disease, hyperlipidemia, GERD, restless leg syndrome, anxiety and depression, rheumatoid arthritis who presents emergency room today by ambulance with chest pain. Says this has been going on all night. Related Data Home Medications ?Medication ?Instructions ?Recorded ?Confirmed fluticasone propionate 50 1 spray intranasal BID PRN 09/27/23 01/05/25 mcg/actuation nasal allergies spray,suspension gabapentin 300 mg capsule 300 mg PO TID 09/27/23 01/05/25 oxycodone 10 mg tablet 10 mg PO Q8H PRN Pain 12/29/23 01/05/25 ramelteon 8 mg tablet 8 mg PO BEDTIME 12/24/24 01/05/25 alprazolam 0.25 mg tablet (Xanax) 0.5 mg PO DAILY PRN anxiety 12/27/24 01/05/25 folic acid 1 mg tablet 1 mg PO DAILY 01/03/25 01/05/25 furosemide 80 mg tablet 80 mg PO DAILY 01/03/25 01/05/25 promethazine 25 mg tablet 25 mg PO Q6H PRN Nausea 01/03/25 01/05/25 sucralfate 1 gram tablet 1 g PO BID 01/03/25 01/05/25 lidocaine 5 % topical patch 1 patch topical [id number] PRN Pain 01/05/25 01/05/25 Previous Rx's ?Medication ?Instructions ?Recorded Bone growth stimulator #1 ea 01/22/23 Bone growth stimulator #1 ea 02/05/23 tens unit for cervical #1 ea 12/16/23 insulin syringes (disposable) 1 mL #25 ea 05/30/24 methotrexate sodium 25 mg/mL 20 mg (0.8 mL) SUBCUT .Q7days #10 05/30/24 injection solution mL ropinirole 5 mg tablet 5 mg PO BID #270 tabs 10/25/24 baclofen 10 mg tablet 5 mg (1/2 x 10 mg) PO Q12H PRN 11/07/24 Muscle Spasm #30 tabs aspirin 81 mg tablet,delayed 81 mg PO DAILY 30 days #30 tabs 12/26/24 release atorvastatin 40 mg tablet 40 mg PO BEDTIME 30 days #30 tabs 12/26/24 clopidogrel 75 mg tablet 75 mg PO DAILY 30 days #30 tabs 12/26/24 nitroglycerin 0.4 mg sublingual 0.4 mg sublingual Q5M PRN Chest 12/26/24 tablet Pain 30 days #30 tabs pantoprazole 40 mg tablet,delayed 40 mg PO Q12H 30 days #60 tabs 12/26/24 release (Protonix) potassium chloride 20 mEq 20 meq PO DAILY #30 tabs 12/26/24 tablet,extended release levothyroxine 125 mcg tablet 125 mcg PO DAILY #30 tabs 01/01/25 ranolazine 500 mg tablet,extended 500 mg PO BID #180 tabs 01/01/25 release,12 hr albuterol sulfate 90 mcg/actuation 2 inh inhalation Q4H PRN shortness 01/03/25 aerosol inhaler of breath or wheezing #18 grams doxycycline hyclate 100 mg capsule 100 mg PO BID 10 days #20 caps 01/03/25 methylprednisolone 4 mg tablets in See Rx Instructions PO .COMPLEX 01/03/25 a dose pack (Medrol (See)) #21 ea Allergies Allergy/AdvReac Type Severity Reaction Status Date / Time venlafaxine (From Effexor) Allergy Severe ADR-Agitate Verified 12/27/24 13:57 d ibuprofen Allergy Unknown ADR-Anxiety Verified 09/23/24 04:24 tizanidine Allergy Unknown Unknown Verified 09/23/24 04:24 acetaminophen Allergy ADR-Anxiety Verified 09/23/24 04:24 amitriptyline Allergy ADR-Agitate Verified 09/23/24 04:24 d diphenhydramine (From Allergy ADR-Agitate Verified 09/23/24 04:24 Benadryl) d morphine Allergy ADR-Halluci Verified 09/23/24 04:24 nating prochlorperazine (From Allergy Unknown Verified 09/23/24 04:24 Compazine) leflunomide AdvReac Intermediate GI adverse Verified 09/23/24 04:24 reactions sulfasalazine AdvReac Intermediate ADR-Nausea Verified 09/23/24 04:24 and acid reflux [facility] ED PFS: Medical History (Updated 01/05/25 @ 10:26 by Mindy Rodarte MD) Coronary artery disease Pneumonia DVT (deep venous thrombosis) Acute GI bleeding History of deep vein thrombosis GERD (gastroesophageal reflux disease) Pre-operative clearance Acute anemia Hematoma complicating a procedure Cervical adenopathy GI bleed Osteoarthritis, shoulder Cervical spondylosis with myelopathy GERD with esophagitis Allergic rhinitis due to allergen RLS (restless legs syndrome) Substance or medication-induced sleep disorder, insomnia type Anxiety and depression High risk medication use Seropositive rheumatoid arthritis of multiple sites Extrapyramidal and movement disorder CKD (chronic kidney disease) stage 3, GFR 30-59 ml/min Lung nodule, solitary Prediabetes Hyperlipidemia Iron deficiency anemia Hypothyroidism Surgical History S/P insertion of IVC (inferior vena caval) filter Status post cervical spinal fusion History of cholecystectomy History of appendectomy History of delivery History of hysterectomy with bilateral oophorectomy History of ankle surgery left Previous back surgery Social History Smoking and tobacco/nicotine status: former use of tobacco/nicotine Quit status (tobacco/nicotine): has quit using Year quit tobacco: 2009 Former quit date comment: Smoked for 9 months Alcohol intake: current Alcohol intake frequency: holidays/special occasions only Substance/Drug Use: never Physical Exam Narrative: EXAM NARRATIVE: General: no acute distress. Skin: Warm, dry. Head: Normocephalic, atraumatic. Neck: Supple, trachea midline. Eye: Extraocular movements are intact. Ears, nose, mouth and throat: mucosa moist. Cardiovascular: Regular, Normal peripheral perfusion. Respiratory: Lungs are clear to auscultation, respirations are non-labored, breath sounds are equal, Symmetrical chest wall expansion. Gastrointestinal: Soft, Nontender, Non distended Musculoskeletal: Normal ROM, no deformity. Neurological: oriented, No focal neurological deficit observed. Patient with frequent twitching. Appears somnolent Psychiatric: Cooperative, appropriate mood & affect. Course Vital Signs: Vital signs: Vital Signs Temperature 98.5 F 01/05/25 07:56 Pulse Rate 94 01/05/25 11:25 Respiratory Rate 28 H 01/05/25 10:28 Blood Pressure 103/68 01/05/25 11:25 Pulse Oximetry 96 01/05/25 11:25 Oxygen Delivery Me thod Room Air 01/05/25 07:56 MDM - Chest Pain Medical Decision Making Differential diagnosis for patient with chest pain includes but is not limited to and based on the above HPI, review of systems and physical exam: Pneumonia. unstable angina. angina. Acute coronary syndrome / NV. Pulmonary embolism. Costochondritis / musculoskeletal. Pleurisy. Pericarditis. Esophageal spasm. Pancreatis. Cholecystitis. Orders placed to evaluate differential diagnosis based on the above differential, HPI and physical exam EKG: Time 800. Rate 80. Extensive interference from patient twitching but no obvious ST elevation. Normal sinus rhythm, This was reviewed and interpreted by myself the ER physician at 8:05 AM Repeat EKG: Time 1014. Rate 54. Sinus bradycardia, No ST-T changes, no ectopy, normal MS & QRS intervals, This was reviewed and interpreted by myself the ER physician at 10:20 AM serial cardiac markers are at her baseline at 34 and 33 with no delta. Chest x-ray: No acute process. No infiltrate. No pneumothorax. This was reviewed and interpreted by myself the emergency room physician. I also reviewed the radiology report. Lab Review: Laboratory results were reviewed and interpreted by myself the emergency room physician. No leukocytosis. Stable anemia. Stable chronic renal insufficiency. I reviewed the patient's medical record. 69-year-old female with a history of coronary artery disease status post PCI around 9 days ago where she was found to have patent stents from the past and 50 to 60% stenosis of the LAD and new stents to the circumflex, DVT, GI bleed, chronic kidney disease, hyperlipidemia, GERD, restless leg syndrome, anxiety and depression, rheumatoid arthritis. Reviewed notes and discharge summary from her hospital stay recently. Was discharged on . Also seen in the emergency room on 01/03 Reexamination: When I reentered the patient's room to discuss findings she was sound asleep. It took me a second to wake her up. When she woke up she continued to complain of chest pain. No oxygen requirements. No increased work of breathing. She continues to complain of chest pain and saying she will if she does not go home. Given her risk factors I will observe her to the hospitalist service Consultation: I spoke with Dr. White who is on-call for the hospital service who agrees to admission to observation Assessment and plan: Noncardiac chest pain -I discussed the patient with the hospitalist on-call who is admitting the patient. - Discussed findings and plan with patient. Answered any questions. - All laboratory values were reviewed and interpreted personally by myself, the ER physician - All imaging was reviewed and interpreted personally by myself, the ER physician. - Evaluation and treatment of this problem were appropriate in the emergency setting Lab Data 01/05/25 08:44 01/05/25 08:44 Radiology Impressions Chest X-Ray 01/05/25 07:56 IMPRESSION: 1. No acute cardiopulmonary finding. Laboratory Results WBC 4.83 10^3/uL (3.29-11.43) 01/05/25 08:44 RBC 3.54 10^6/uL (3.85-5.65) L 01/05/25 08:44 Hgb 9.60 g/dL (11.27-16.99) L 01/05/25 08:44 Hct 29.9 % (36-47) L 01/05/25 08:44 MCV 84.5 fl (85-98) L 01/05/25 08:44 MCH 27.1 pg (27-33) 01/05/25 08:44 MCHC 32.1 g/dL (30-55) 01/05/25 08:44 RDW 16.1 % (12.1-15.1) H 01/05/25 08:44 Plt Count 232 10^3/cmm (157-399) 01/05/25 08:44 MPV 9.3 fL (7.4-10.4) 01/05/25 08:44 Neut % (Auto) 67.9 % 01/05/25 08:44 Lymph % (Auto) 19.5 % 01/05/25 08:44 [place] % (Auto) 10.1 % 01/05/25 08:44 Eos % (Auto) 1.7 % 01/05/25 08:44 Baso % (Auto) 0.4 % 01/05/25 08:44 Neut # (Auto) 3.28 10^3/uL (1.8-7.7) 01/05/25 08:44 Lymph # (Auto) 0.9 10^3/uL (0.8-4.8) 01/05/25 08:44 [place] # (Auto) 0.5 10^3/uL (0.2-0.9) 01/05/25 08:44 Eos # (Auto) 0.1 10^3/uL (0.0-0.8) 01/05/25 08:44 Baso # (Auto) 0.0 10^3/uL (0.0-0.1) 01/05/25 08:44 Nucleated RBC % (auto) 0 % 01/05/25 08:44 Nucleated RBCs # 0.0 /100WBC 01/05/25 08:44 Sodium 144 mmol/L (136-145) 01/05/25 08:44 Potassium 2.9 mmol/L (3.5-5.1) L 01/05/25 08:44 Chloride 102 mmol/L (98-107) 01/05/25 08:44 Carbon Dioxide 25 mmol/L (22-29) 01/05/25 08:44 Anion Gap 19.9 (5-19) H 01/05/25 08:44 BUN 38 mg/dL (8-23) H 01/05/25 08:44 Creatinine 1.4 mg/dL (0.5-0.9) H 01/05/25 08:44 GFR Calculation 37.2 mL/min (90-130) L 01/05/25 08:44 Glucose 106 mg/dL (65-115) 01/05/25 08:44 Calculated Osmolality 307 mOsm/kg (285-295) H 01/05/25 08:44 Calcium 9.2 mg/dL (8.5-10.5) 01/05/25 08:44 Total Bilirubin 0.7 mg/dL (0.15-1.2) 01/05/25 08:44 AST 34 U/L (0-32) H 01/05/25 08:44 ALT 14 U/L (0-33) 01/05/25 08:44 Alkaline Phosphatase 151 U/L (35-105) H 01/05/25 08:44 Troponin T Baseline 34 ng/L (0-10) H 01/05/25 08:44 Troponin T 120 Minute 32.27 ng/L (0-10) H 01/05/25 09:49 Delta Troponin T -1.73 ABS# (0-10) L 01/05/25 09:49 Total Protein 8.5 g/dL (6.6-8.7) 01/05/25 08:44 Albumin 4.1 g/dL (3.5-5.2) 01/05/25 08:44 Globulin 4.4 g/dL (1.3-4.6) 01/05/25 08:44 Gastric Occult Blood Positive (Negative) H 01/05/25 11:00 All radiology interpretation(s) finalized by discharge Discharge Plan Discharge Patient Disposition: Placed in Observation Clinical Impression: Non-cardiac chest pain Discharge Diet: Usual diet Discharge Activity: Increase activity as tolerated Coding Level of Care Code 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
--- OUTSIDE RECORDS SUMMARY | 2025-01-05 08:05 | XMS_ITS | Patient Health Record ---
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) Active confirmed Problem Wrist joint effusion (463525370) Effusion, right wrist (M25.431) Active confirmed Problem 265448178 Dyslipidemia (E78.5) Active confirmed Problem 52691258 Seizures (R56.9) Active confirmed Problem 96533672 Heart murmur (R01.1) Active confirmed Problem 826706173 Diabetes mellitu s type 2 in nonobese (E11.9) Active confirmed Problem 699613424 GERD without esophagitis (K21.9) Active confirmed Problem 893011029 Hypothyroidism (acquired) (E03.9) Active confirmed Problem 2237669290422 Coronary artery disease involving belkofski coronary artery of belkofski heart with angina pectoris (I25.119) Active confirmed Problem 68219958 Depression, unspecified depression type (F32.9) Active confirmed Problem 584047932 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) Active confirmed Problem 522493474 Cataract of left eye, unspecified cataract type (H26.9) Active confirmed Plan Of Treatment Pending Test Test Name Order Date Hemoglobin A1c ([id number]) 11/12/2016 MRI- BRAIN WO CONTRAST (87176)(HEAFH-BRA O) 01/22/2017 XRAY- ABDOMEN-KUB 1V (52983)(HEH-ABDK1 ) 01/21/2017 Insurance Providers Payer Name Payer Address Payer Phone Subscriber Number Group Number Insured Name Patient Relationship to Insured Coverage Start Date Coverage End Date [place]ICARE [place] PART B [address] [facility] [id number] Tosha Perry Self - patient is the insured 1 [facility] [id number] [facility] [place] [id number] Tosha Perry Self - patient is the [...]
--- OUTSIDE RECORDS SUMMARY | 2025-01-05 08:06 | XMS_ITS | Clinical Summary ---
Author Organization [facility] Address [address] [place] [address] Phone Care Team Providers Care [place] 

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
--- OUTSIDE RECORDS SUMMARY | 2025-01-05 08:07 | XMS_ITS | Patient Health Record ---
Author Organization [facility] Address [address] [place] [address] Care Team Providers Care Potato Bucker Name Role Phone VeeMadeline myersne Primary Care Provider El Brewer [phone] Allergies Allergen (clinical drug ingredient) Drug/Non Drug [...] Status Risk Notes Problem Shortness of breath (284685125) Shortness of breath (R06.02) Active confirmed Problem Anxiety (25636337) Anxiety (F41.9) Active confirmed Problem Abnormal PFT: MV V reduced disproportionate to FEV1 (R94.2) Active confirmed Problem Peripheral edema (35282112) Peripheral edema (R60.9) Active confirmed Problem Restless legs syndrome (38522607) Restless leg syndrome (G25.81) Active confirmed Problem Pulmonary hypertension (28723712) Pulmonary hypertension (I27.20) Active confirmed Problem Benign neoplasm of cerebral meninges (88477972) Meningioma (D32.9) Active confirmed Problem Hypokalemia (82992761) 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) Active confirmed 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
[2025-01-05 08:49] LABS: Hematocrit 29.9 % (36-47); Hemoglobin 9.60 g/dL (11.27-16.99); Mean Corpuscular HGB Conc 32.1 g/dL (30-55); Mean Corpuscular Hemoglobin 27.1 pg (27-33); Mean Corpuscular Volume 84.5 fl (85-98); Nucleated Red Blood Cells % 0 %; Platelet Count 232 10^3/cmm (157-399); Red Blood Count 3.54 10^6/uL (3.85-5.65); White Blood Count 4.83 10^3/uL (3.29-11.43)
[2025-01-05 09:09] LABS: Troponin(5th) Baseline 34 ng/L (0-10)
[2025-01-05 09:11] LABS: Alanine Aminotransferase 14 U/L (0-33); Albumin Level 4.1 g/dL (3.5-5.2); Alkaline Phosphatase 151 U/L (35-105); Anion Gap 19.9 (5-19); Aspartate Amino Transferase 34 U/L (0-32); Blood Urea Nitrogen 38 mg/dL (8-23); Calcium 9.2 mg/dL (8.5-10.5); Carbon Dioxide 25 mmol/L (22-29); Chloride 102 mmol/L (98-107); Creatinine Clr Calc Pharmacy 34.3667; Globulin 4.4 g/dL (1.3-4.6); Glucose 106 mg/dL (65-115); Osmolality Calculated 307 mOsm/kg (285-295); Sodium 144 mmol/L (136-145); Total Protein 8.5 g/dL (6.6-8.7)
[2025-01-05 09:13] LABS: Potassium 2.9 mmol/L (3.5-5.1)
--- NOTE | 2025-01-05 09:26 | PC.PHAR ---
Pt took all medications yesterday 01/04/25 and has not taken anything yet this morning.
[2025-01-05] MEDS: potassium chloride oral liq 20 mEq/15 mL UDC 40 MEQ PO (09:37)
--- NOTE | 2025-01-05 09:56 | ECG_ITS ---
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: : 1955 Requested By: Mindy Khoury Order Number: [id number] Reading MD: TESSA AZEVEDO Measurements Intervals [place] Rate: 54 P: 66 NV: 154 QRS: 36 QRSD: 85 T: -12 QT: 364 QTc: 348 Interpretive Statements SINUS BRADYCARDIA WITH SINUS ARRHYTHMIA NONSPECIFIC T-WAVE ABNORMALITY Compared to ECG 01/05/2025 08:00:36 T-wave abnormality now present Sinus rhythm no longer present Ventricular premature complex(es) no longer present Intraventricular conduction delay no longer present Myocardial infarct finding no longer present Electronically Signed On 01-06-2025 21:41:08 CDT by TESSA AZEVEDO [id number] [id number]
[2025-01-05 10:19] LABS: Troponin 5 2HR 32.27 ng/L (0-10)
[2025-01-05 10:20] LABS: Troponin 5 2HR Delta -1.73 ABS# (0-10)
[2025-01-05] MEDS: HYDROmorphone 0.5 MG/0.5 ML INJ 1 MG IVP ×2 (10:42→21:30)
--- NOTE | 2025-01-05 10:57 | PC.NURSE ---
pt discharge delayed d/t pain medications at d/c
[2025-01-05 11:32] LABS: Gastricult Occult Blood Positive (Negative); Gastricult Occult PH 4.0 PH (1.5-3.5)
--- NOTE | 2025-01-05 12:26 | PM.HP ---
Providers/Chief Complaint Admitting Physician: Medardo Montgomery MD Primary Care Provider: Diana Garcia Chief Complaint: chest pain - SOB History of Present Illness Tosha Perry is a 69 year old female with extensive history of coronary artery disease underwent last procedure selective coronary angiogram 12/27/[address] Chava Mckinley and underwent PCI with 2 stents in the LAD optimized by intravascular ultrasound. The patient had history of prior circumflex stents x 2 on 12/24/[address] Pérez. There was a transiently jailed obtuse marginal which was dilated. Patient is on Plavix and aspirin for these procedures for at least a year of dual antiplatelet therapy. Patient was seen by Dr. Plaza on 01/03/2025 with chest pain but enzymes and EKG were stable so she was discharged home after discomfort improved. She returns again today and seen by Dr. Rodarte complaining of severe pain being admitted for observation vital signs stable chest x-ray no infiltrate cardiac enzymes 34 and 33. Suspicion for noncardiac chest pain Potassium is 2.9 and she has received 40 mill colons in the ER as well as 1 mg of hydromorphone for pain. Troponins have run at the time of last evaluation in the emergency department but was 803 on 12/27/2024 at time of her last NSTEMI. EKG shows sinus bradycardia and lots of artifact no acute ST-T wave abnormality Patient has a history of IVC filter placed by Dr. Mckinley 05/15/2023 Patient had an EGD on 12/31/2024 showed 1 single erosion in the prepyloric area with no stigmata of bleeding. Last CT scan of the abdomen was 12/24/2024 and patient had IVC filter and then also intra and extrahepatic biliary prominence consistent with reservoir effect but a normal-looking pancreas without duct dilatation. I reviewed the record and IVC filter was placed 05/15/2023 for 4 contraindication anticoagulation and a small nonocclusive DVT. Follow-up imaging 12/24/2024 no lower extremity DVTs . Patient has been seen multiple times for chest pain in the ER. She did have the NSTEMI 12/24/2024 additionally she had hematoma in her arm from IV infiltration and requested pain meds. She is requesting pain meds now. 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 Patient states she has constipation and has bowel movements about once a week Medications/Allergies Home Medications ?Medication ?Instructions ?Recorded ?Confirmed ?Last Taken ?Type Bone growth stimulator #1 ea 01/22/23 01/05/25 Unknown Rx Bone growth stimulator #1 ea 02/05/23 01/05/25 Unknown Rx fluticasone propionate 50 1 spray intranasal BID PRN 09/27/23 01/05/25 12/23/24 History mcg/actuation nasal allergies spray,suspension gabapentin 300 mg capsule 300 mg PO TID 09/27/23 01/05/25 12/26/24 History tens unit for cervical #1 ea 12/16/23 01/05/25 Unknown Rx oxycodone 10 mg tablet 10 mg PO Q8H PRN Pain 12/29/23 01/05/25 01/04/25 History insulin syringes (disposable) 1 mL #25 ea 05/30/24 01/05/25 Unknown Rx methotrexate sodium 25 mg/mL 20 mg (0.8 mL) SUBCUT .Q7days #10 05/30/24 01/05/25 01/01/25 Rx injection solution mL ropinirole 5 mg tablet 5 mg PO BID #270 tabs 10/25/24 01/05/25 01/04/25 Rx baclofen 10 mg tablet 5 mg (1/2 x 10 mg) PO Q12H PRN 11/07/24 01/05/25 12/23/24 Rx Muscle Spasm #30 tabs ramelteon 8 mg tablet 8 mg PO BEDTIME 12/24/24 01/05/25 01/04/25 History aspirin 81 mg tablet,delayed 81 mg PO DAILY 30 days #30 tabs 12/26/24 01/05/25 01/04/25 Rx release atorvastatin 40 mg tablet 40 mg PO BEDTIME 30 days #30 tabs 12/26/24 01/05/25 01/04/25 Rx clopidogrel 75 mg tablet 75 mg PO DAILY 30 days #30 tabs 12/26/24 01/05/25 01/04/25 Rx nitroglycerin 0.4 mg sublingual 0.4 mg sublingual Q5M PRN Chest 12/26/24 01/05/25 Unknown Rx tablet Pain 30 days #30 tabs pantoprazole 40 mg tablet,delayed 40 mg PO Q12H 30 days #60 tabs 12/26/24 01/05/25 01/04/25 Rx release (Protonix) potassium chloride 20 mEq 20 meq PO DAILY #30 tabs 12/26/24 01/05/25 01/04/25 Rx tablet,extended release alprazolam 0.25 mg tablet (Xanax) 0.5 mg PO DAILY PRN anxiety 12/27/24 01/05/25 01/04/25 History levothyroxine 125 mcg tablet 125 mcg PO DAILY #30 tabs 01/01/25 01/05/25 01/04/25 Rx ranolazine 500 mg tablet,extended 500 mg PO BID #180 tabs 01/01/25 01/05/25 01/04/25 Rx release,12 hr albuterol sulfate 90 mcg/actuation 2 inh inhalation Q4H PRN shortness 01/03/25 01/05/25 01/04/25 Rx aerosol inhaler of breath or wheezing #18 grams doxycycline hyclate 100 mg capsule 100 mg PO BID 10 days #20 caps 01/03/25 01/05/25 01/04/25 Rx folic acid 1 mg tablet 1 mg PO DAILY 01/03/25 01/05/25 01/04/25 History furosemide 80 mg tablet 80 mg PO DAILY 01/03/25 01/05/25 01/04/25 History methylprednisolone 4 mg tablets in See Rx Instructions PO .COMPLEX 01/03/25 01/05/25 01/04/25 Rx a dose pack (Medrol (See)) #21 ea promethazine 25 mg tablet 25 mg PO Q6H PRN Nausea 01/03/25 01/05/25 Unknown History sucralfate 1 gram tablet 1 g PO BID 01/03/25 01/05/25 01/04/25 History lidocaine 5 % topical patch 1 patch topical [id number] PRN Pain 01/05/25 01/05/25 Unknown History Allergies Allergy/AdvReac Type Severity Reaction Status Date / Time venlafaxine (From Effexor) Allergy Severe ADR-Agitate Verified 12/27/24 13:57 d ibuprofen Allergy Unknown ADR-Anxiety Verified 09/23/24 04:24 tizanidine Allergy Unknown Unknown Verified 09/23/24 04:24 acetaminophen Allergy ADR-Anxiety Verified 09/23/24 04:24 amitriptyline Allergy ADR-Agitate Verified 09/23/24 04:24 d diphenhydramine (From Allergy ADR-Agitate Verified 09/23/24 04:24 Benadryl) d morphine Allergy ADR-Halluci Verified 09/23/24 04:24 nating prochlorperazine (From Allergy Unknown Verified 09/23/24 04:24 Compazine) leflunomide AdvReac Intermediate GI adverse Verified 09/23/24 04:24 reactions sulfasalazine AdvReac Intermediate ADR-Nausea Verified 09/23/24 04:24 and acid reflux PFSH Acute PFSH: Medical History (Updated 01/05/25 @ 10:26 by Mindy Rodarte MD) Coronary artery disease Pneumonia DVT (deep venous thrombosis) Acute GI bleeding History of deep vein thrombosis GERD (gastroesophageal reflux disease) Pre-operative clearance Acute anemia Hematoma complicating a procedure Cervical adenopathy GI bleed Osteoarthritis, shoulder Cervical spondylosis with myelopathy GERD with esophagitis Allergic rhinitis due to allergen RLS (restless legs syndrome) Substance or medication-induced sleep disorder, insomnia type Anxiety and depression High risk medication use Seropositive rheumatoid arthritis of multiple sites Extrapyramidal and movement disorder CKD (chronic kidney disease) stage 3, GFR 30-59 ml/min Lung nodule, solitary Prediabetes Hyperlipidemia Iron deficiency anemia Hypothyroidism Surgical History (Updated 01/05/25 @ 13:24 by Medardo Montgomery MD) S/P insertion of IVC (inferior vena caval) filter Status post cervical spinal fusion History of cholecystectomy History of appendectomy History of delivery History of hysterectomy with bilateral oophorectomy History of ankle surgery left Previous back surgery Social History (Updated 01/05/25 @ 13:17 by Medardo Montgomery MD) Smoking and tobacco/nicotine status: former use of tobacco/nicotine Quit status (tobacco/nicotine): has quit using Year quit tobacco: 2009 Former quit date comment: Smoked for 9 months Alcohol intake: current Alcohol intake frequency: holidays/special occasions only Substance/Drug Use: never Additional social history: Patient tells me that after her accident she is chronically on oxycodone 10 mg 3 times daily. She is recently full code on 12/24/2024 admission Vitals/I&O/Wt Last Vital Signs Temp 98.5 F 01/05/25 07:56 Pulse 67 01/05/25 11:51 Resp 21 H 01/05/25 11:51 BP 102/60 01/05/25 11:51 Pulse Ox 91 01/05/25 11:51 O2 Del Method Room Air 01/05/25 07:56 Weight last 48 hrs Weight 63.503 kg Physical Exam Narrative: General well-developed well-nourished female sleeping upon my arrival. She awakens and has twitching rhythmic motions. She states that she has restless legs and when she does not get her medications and is sick it extends to her whole body. Speech is clear she moves all extremities symmetrically CV regular rate and rhythm no loud murmur Lungs clear to auscultation bilaterally Abdomen positive bowel tones soft diffuse tenderness without point tenderness. Calves no tenderness cords pretrip edema Sure it is with evidence of brown emesis Data 01/05/25 08:44 01/05/25 08:44 A&P Assessment and plan 1. Atypical chest pain: Cardiac enzymes 35 and 34 stable EKG with artifact but otherwise unremarkable 2. Coronary artery disease: Status post 2 stents to the circumflex in 2-3 LAD within the last 2 months she is on antiplatelet therapy with Plavix and anticoagulation with 3. S/P insertion of IVC (inferior vena caval) filter: Patient with no DVTs currently. This should be scheduled with Dr. Mckinley for reevaluation and potentially removal 4. Abdominal pain: Patient will have lipase performed and GI cocktail. Monitoring in the hospital for possibility of bleeding. Resume proton pump inhibitor and Carafate monitor hematocrit PDMP PDMP Reviewed: Not Reviewed Attestations Medical Necessity Statement*: Patient is observed in the hospital for atypical chest pain and abdominal pain unclear etiology. Avoid excessive imaging as she has had lots of imaging most recent CT of the abdomen just 12 days ago. Anticipate discharge home in 1 to 2 days Coding Level of Care Code 26083 Diagnoses Atypical chest pain R07.89 Coronary artery disease I25.10 S/P insertion of IVC (inferior vena caval) filter Z95.828 Abdominal pain R10.9 Time Spent (min) 70
--- NOTE | 2025-01-05 12:34 | PC.NURSE ---
provided pt with ice water, repositioned in bed.
--- NOTE | 2025-01-05 13:25 | PC.NURSE ---
pt had urinary incontinent episode, full bed change provided, pt changed into gown.
[2025-01-05 13:38] LABS: Lipase 14 U/L (13-60)
--- NOTE | 2025-01-05 14:08 | ECG_ITS ---
[facility] Date: 2025[facility]05 Pat Name: Tosha Perry Department: Room: ED Gender: Female Sheet Heater: : 1955 Requested By: Mindy Khoury Order Number: [id number] Mirela MD: TESSA AZEVEDO Measurements Intervals [place] Rate: 60 P: 42 WV: 173 QRS: 0 QRSD: 88 T: -3 QT: 431 QTc: 431 Interpretive Statements SINUS RHYTHM Compared to ECG 01/05/2025 10:14:04 Sinus bradycardia no longer present Sinus arrhythmia no longer present T-wave abnormality no longer present Electronically Signed On 01-06-2025 21:40:06 CDT by TESSA AZEVEDO [email or web address] [id number]
[2025-01-05] MEDS: lidocaine 2% viscous 15 ML, aluminum-mag hydrox-simethicon 30 ML, sucralfate oral liq 1 GM PO (15:27)
[2025-01-05 15:52] LABS: Troponin 5 6HR 30.54 ng/L (0-10); Troponin 5 6HR Delta -3.46 ng/L (0-12)
[2025-01-05] MEDS: ranolazine (12HR) 500 mg Tablet PO (18:03)
[2025-01-05] MEDS: oxyCODONE 5 mg IR Tab/Cap 10 MG PO (18:06)
[2025-01-05] MEDS: ondansetron 2 mg/ML SDV 2 mL 4 MG IVP (21:05)
[2025-01-06] VITALS (11 sets, daily range): BP systolic 115–144; BP diastolic 54–72; PULSE 58–67; RESP 17–19; TEMP 36.4–37; O2SAT 90–97
[2025-01-06] MEDS: HYDROmorphone 0.5 MG/0.5 ML INJ 1 MG IVP ×4 (02:34→15:37)
[2025-01-06] MEDS: ondansetron 2 mg/ML SDV 2 mL 4 MG IVP ×2 (08:29→15:37)
[2025-01-06] MEDS: ranolazine (12HR) 500 mg Tablet PO ×2 (08:30→17:19)
[2025-01-06] MEDS: fixodent 39 gm Tube 1 APPLIC DENTAL (11:34)
--- NOTE | 2025-01-06 11:56 | PC.CHAP ---
Pastoral Care Encounter/Spiritual Assessment Type of Contact [] Declined repairer general visit [] Patient/Family/Request visit [] Outpatient visit [] Follow-up visit [] Physician referral [] Code/Alert [x] Routine visit [] Staff referral [] Actively dying [] Patient sleeping [] Family support [] [] Out of room [] Palliative care [] [] Receiving care in room [] Pre-surgical visit [] Trauma [] Long length of stay [] ICU visit [] Other: Relational/Emotional Strength [x] Patient feels connected with others/family/visitors/staff [x] Distress [] Loneliness/isolation [] Abandonment Spirituality of Patient [x] Person of Shaina [] Attends Holiness of their Shaina [x] Believes in Prayer [] Reads Bible or Latter Day materials [] There are Spiritual issues to be addressed Service Plumber Interventions [x] Prayer [x] Active listening [] Non-anxious presence [] Spiritual/emotional support [] Crisis/trauma care [] Spiritual counseling [] Bereavement support [] Provided bereavement packet [] Provided Bible/devotional materials [] Provided toy/stuffed animal, coloring book to patient or family member [] Provided Communion [] Anointing/Petroleum [] Salvation [] Completed spiritual assessment [] Other: Impact on Illness or Injury [] Angry [] Fearful [] Anxious [] Often cries [] Exhaustion [] Unable to work [] Unable to attend yazidi [] Unable to walk/stand [] Unable to read [] Unable to drive [] Unable to eat/drink [] Unable to sleep [] Unable to be with family [] Patient intubated [] Other: Summary Prayer, severe Nausea short visit Time spent with patient 10
--- NOTE | 2025-01-06 16:04 | P.PN_ITS ---
Subjective 2 Subjective: 69-year-old female upon awaken ing from sleep tells me she is in severe pain. She states she cannot go home and has been vomiting all day and all night. Kenna RN confirms the patient had 1 episode of vomiting today but also had episode of vomiting yesterday evening and received Zofran Vitals/I&O/Wt Last Vital Signs Temp 98.2 F 01/06/25 15:26 Pulse 65 01/06/25 15:26 Resp 18 01/06/25 15:26 BP 125/62 01/06/25 15:26 Pulse Ox 92 01/06/25 15:26 O2 Del Method Room Air 01/06/25 15:26 01/06/25 01/06/25 01/06/25 06:59 14:59 22:59 Intake Total 480 / 480 Balance 480 / 480 Weight last 48 hrs Weight 65.635 kg Weight 63.503 kg Weight 63.503 kg Physical Exam 2 Narrative: General well-developed well-nourished female sleeping upon my arrival. She is sleeping and in no distress. I observed this for about 30 seconds. Patient arouses spontaneously and tells me that she is in severe pain with right arm pain left head and bilateral temples. She reports visual anomaly. I discussed with her that she was sleeping peacefully so does not appear to be in pain but she states that she has syncope but she spells it out instead of saying the word syncope. Speech is clear she moves all extremities but right when she has on a towel and reports significant pain around the elbow. This is the arm that had the bruising and does show some fading bruising. There is mild tenderness to touch CV regular rate and rhythm no loud murmur Lungs clear to auscultation bilaterally Abdomen positive bowel tones minimal diffuse tenderness. Soft no rebound tenderness. Calves no tenderness cords pretibial edema Patient's nurse Kenna tells me that the patient did vomit early yesterday shift and vomited a couple times today Data 01/05/25 08:44 01/05/25 08:44 A&P Assessment and plan 1. Atypical chest pain: Cardiac enzymes 35 and 34 and 30 stable EKG with artifact but otherwise unremarkable 2. Coronary artery disease: Status post 2 stents to the circumflex in 2-3 LAD within the last 2 months she is on antiplatelet therapy with Plavix and aspirin 3. S/P insertion of IVC (inferior vena caval) filter: Patient with no DVTs currently. This should be scheduled with Dr. Mckinley for reevaluation and potentially removal. Patient had nonocclusive DVT last year but had 3 stomach ulcers at the time as well 4. Abdominal pain: Patient will have lipase performed and GI cocktail. Monitoring in the hospital for possibility of bleeding. Resume proton pump inhibitor and Carafate monitor hematocrit 5. Head ache: Unclear etiology but with vision complaints worship pain and elevated sed rate and C-reactive protein I am considering the diagnosis of giant cell arteritis. Patient tells me she has had abdominal pain and rheumatoid arthritis. Will check ESR and CRP and consider treating with steroids. She had Gastroccult positive emesis, chronic anemia, CKD The patient does not have fever and she has not had weight loss she does have anemia but it is iron deficiency anemia. Will repeat sed rate and CRP PDMP PDMP Reviewed: Not Reviewed Attestations 2 Medical Necessity Statement*: Patient remains in hospital for treatment of symptoms of nausea with Zofran IV fluids acid suppression and will require an additional midnight Coding Level of Care Code 30644 Diagnoses Atypical chest pain R07.89 Coronary artery disease I25.10 S/P insertion of IVC (inferior vena caval) filter Z95.828 Abdominal pain R10.9 Head ache R51.9 Time Spent (min) 35
[2025-01-06] MEDS: oxyCODONE 5 mg IR Tab/Cap 10 MG PO (17:19)
[2025-01-07] VITALS (9 sets, daily range): BP systolic 108–142; BP diastolic 54–66; PULSE 62–78; RESP 15–20; TEMP 36.6–36.9; O2SAT 90–94
[2025-01-07] MEDS: oxyCODONE 5 mg IR Tab/Cap 10 MG PO ×2 (03:17→11:30)
[2025-01-07] MEDS: ranolazine (12HR) 500 mg Tablet PO (08:03)
--- NOTE | 2025-01-07 11:39 | PM.DCS ---
Discharge Providers Date of Admission: 01/05/25 13:28 Date of Discharge: January 07, 2025 Attending Provider at Admission: Medardo Montgomery MD Attending Provider at Discharge: Medardo Montgomery MD Consults: None Primary Care Provider: [facility] Diagnoses at Discharge Discharge Diagnosis 1. Atypical chest pain: Details from hospital stay: Cardiac enzymes stable at 34 dropping to 30 over the 6 hours and EKG sinus rhythm. No significant ST-T wave abnormality. Recent LAD and left circumflex stents 2. Coronary artery disease: Details from hospital stay: Stable 3. 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 She is on Plavix and history of GI bleeding. Follow-up with your PCP to determine if this should remain or potentially be removed 4. Abdominal pain: Details from hospital stay: Resolved lipase normal 5. Head ache: Details from hospital stay: Patient with report of vision loss and she states is worse on the left. Temporal arteries with normal pulses. Sed rate and C-reactive protein elevated despite being on methotrexate Patient has significant increased warmth and synovitis in the right elbow, wrist and hand. I treated her with Decadron 4 mg p.o. x 1 in the hospital and 4 mg daily for 5 days on discharge. Decrease dose to 2 mg a day if unable to sleep Patient is on multiple medications and lots of somatic complaints that she wants more medication for including IV Dilaudid in the hospital and something for sleep. I do find her right elbow and wrist to be inflamed and will treat as above 6. Rheumatoid arthritis flare: Details from hospital stay: Treating with Decadron 4 mg daily for 5 days. Follow-up with Dr. Pan. Patient has some symptoms with vision complaints headache in the temples elevated sed rate and C-reactive protein despite being methotrexate potentially concerning for giant cell arteritis. She states she has an eye exam tomorrow with Dr. Giordano and follow-up with Dr. Pan. She states she has a vascular surgeon in [place] Please evaluate her response to the Decadron and see if there is concerns for this diagnosis 7. Diastolic congestive heart failure: Details from hospital stay: Patient with prerenal azotemia and hypokalemia on admission. Decrease furosemide to 40 mg daily Reason for Visit Reason for Visit: chest pain - SOB Brief History: Tosha Perry is a 69 year old female with extensive history of coronary artery disease underwent last procedure selective coronary angiogram 12/27/[address] Chava Mckinley and underwent PCI with 2 stents in the LAD optimized by intravascular ultrasound. The patient had history of prior circumflex stents x 2 on 12/24/[address] Pérez. There was a transiently jailed obtuse marginal which was dilated. Patient is on Plavix and aspirin for these procedures for at least a year of dual antiplatelet therapy. Patient was seen by Dr. Plaza on 01/03/2025 with chest pain but enzymes and EKG were stable so she was discharged home after discomfort improved. She returns again today and seen by Dr. Rodarte complaining of severe pain being admitted for observation vital signs stable chest x-ray no infiltrate cardiac enzymes 34 and 33. Suspicion for noncardiac chest pain Potassium is 2.9 and she has received 40 mill colons in the ER as well as 1 mg of hydromorphone for pain. Troponins have run at the time of last evaluation in the emergency department but was 803 on 12/27/2024 at time of her last NSTEMI. EKG shows sinus bradycardia and lots of artifact no acute ST-T wave abnormality Patient has a history of IVC filter placed by Dr. Mckinley 05/15/2023 Patient had an EGD on 12/31/2024 showed 1 single erosion in the prepyloric area with no stigmata of bleeding. Last CT scan of the abdomen was 12/24/2024 and patient had IVC filter and then also intra and extrahepatic biliary prominence consistent with reservoir effect but a normal-looking pancreas without duct dilatation. I reviewed the record and IVC filter was placed 05/15/2023 for 4 contraindication anticoagulation and a small nonocclusive DVT. Follow-up imaging 12/24/2024 no lower extremity DVTs . Patient has been seen multiple times for chest pain in the ER. She did have the NSTEMI 12/24/2024 additionally she had hematoma in her arm from IV infiltration and requested pain meds. She is requesting pain meds now. She denies narcotic abuse or addiction but states she is on long-term oxycodone 10 mg 3 times daily Hospital Course Hospital Course Patient was admitted and treated with pain control, steroids and rest. She is still with multiple somatic complaints. Cardiac enzymes and EKGs were reassuring regarding her atypical chest pain and she is discharged to follow-up with her PCP, environmental field technician, biomedical electronics technician and vascular surgeon regarding potential diagnosis of giant cell arteritis in addition to her rheumatoid arthritis flare. Patient also has an IVC filter placed last year and is on Plavix but not on anticoagulation. I reviewed last ultrasound of the legs which showed that her DVT had resolved Physical Exam Narrative: General well-developed well-nourished female antalgic but less distress today CV regular rate and rhythm Lungs patient trace crackles in the bases improved with deep breaths Abdomen positive bowel tones soft Bilateral temples nontender and with normal temporal artery pulse Right arm with synovitis at the elbow wrist and fingers and wrist with increased warmth Discharge Data Studies Completed and Pending Completed Studies During Hospitalization Category Date Time Status XR chest 1V portable [id number] Stat Exams 01/05/25 07:56 Completed Radiology Impressions Chest X-Ray 01/05/25 07:56 IMPRESSION: 1. No acute cardiopulmonary finding. Laboratory Results WBC 4.83 10^3/uL (3.29-11.43) 01/05/25 08:44 RBC 3.54 10^6/uL (3.85-5.65) L 01/05/25 08:44 Hgb 9.60 g/dL (11.27-16.99) L 01/05/25 08:44 Hct 29.9 % (36-47) L 01/05/25 08:44 MCV 84.5 fl (85-98) L 01/05/25 08:44 MCH 27.1 pg (27-33) 01/05/25 08:44 MCHC 32.1 g/dL (30-55) 01/05/25 08:44 RDW 16.1 % (12.1-15.1) H 01/05/25 08:44 Plt Count 232 10^3/cmm (157-399) 01/05/25 08:44 MPV 9.3 fL (7.4-10.4) 01/05/25 08:44 Neut % (Auto) 67.9 % 01/05/25 08:44 Lymph % (Auto) 19.5 % 01/05/25 08:44 Gillespie % (Auto) 10.1 % 01/05/25 08:44 Eos % (Auto) 1.7 % 01/05/25 08:44 Baso % (Auto) 0.4 % 01/05/25 08:44 Neut # (Auto) 3.28 10^3/uL (1.8-7.7) 01/05/25 08:44 Lymph # (Auto) 0.9 10^3/uL (0.8-4.8) 01/05/25 08:44 Gillespie # (Auto) 0.5 10^3/uL (0.2-0.9) 01/05/25 08:44 Eos # (Auto) 0.1 10^3/uL (0.0-0.8) 01/05/25 08:44 Baso # (Auto) 0.0 10^3/uL (0.0-0.1) 01/05/25 08:44 Nucleated RBC % (auto) 0 % 01/05/25 08:44 Nucleated RBCs # 0.0 /100WBC 01/05/25 08:44 ESR 44 mm/hr (0-15) H 01/06/25 17:33 Sodium 144 mmol/L (136-145) 01/05/25 08:44 Potassium 2.9 mmol/L (3.5-5.1) L 01/05/25 08:44 Chloride 102 mmol/L (98-107) 01/05/25 08:44 Carbon Dioxide 25 mmol/L (22-29) 01/05/25 08:44 Anion Gap 19.9 (5-19) H 01/05/25 08:44 BUN 38 mg/dL (8-23) H 01/05/25 08:44 Creatinine 1.4 mg/dL (0.5-0.9) H 01/05/25 08:44 GFR Calculation 37.2 mL/min (90-130) L 01/05/25 08:44 Glucose 106 mg/dL (65-115) 01/05/25 08:44 Calculated Osmolality 307 mOsm/kg (285-295) H 01/05/25 08:44 Calcium 9.2 mg/dL (8.5-10.5) 01/05/25 08:44 Total Bilirubin 0.7 mg/dL (0.15-1.2) 01/05/25 08:44 AST 34 U/L (0-32) H 01/05/25 08:44 ALT 14 U/L (0-33) 01/05/25 08:44 Alkaline Phosphatase 151 U/L (35-105) H 01/05/25 08:44 Troponin T Baseline 34 ng/L (0-10) H 01/05/25 08:44 Troponin T 120 Minute 32.27 ng/L (0-10) H 01/05/25 09:49 Delta Troponin T -1.73 ABS# (0-10) L 01/05/25 09:49 Troponin T Hi Sens 6Hr 30.54 ng/L (0-10) H 01/05/25 15:01 Troponin T Hi Sens 6Hr Delta -3.46 ng/L (0-12) L 01/05/25 15:01 C-Reactive Protein 47.8 mg/L (0.0-4.9) H 01/06/25 17:33 Total Protein 8.5 g/dL (6.6-8.7) 01/05/25 08:44 Albumin 4.1 g/dL (3.5-5.2) 01/05/25 08:44 Globulin 4.4 g/dL (1.3-4.6) 01/05/25 08:44 Lipase 14 U/L (13-60) 01/05/25 12:57 Gastric Occult Blood Positive (Negative) H 01/05/25 11:00 Vitals Last Vital Signs Temp 98.5 F 01/07/25 11:28 Pulse 78 01/07/25 11:28 Resp 15 01/07/25 11:30 BP 142/66 01/07/25 11:28 Pulse Ox 92 01/07/25 11:30 O2 Del Method Room Air 01/07/25 11:28 Discharge Plan Discharge Patient Disposition: Home Condition: Stable Prescriptions: New dexamethasone 4 mg tablet 4 mg PO DAILY Qty: 5 0RF Rx Instructions: if insomnia take 2mg instead Continued (DME) tens unit for cervical See Rx Instructions .Route .MEDSUPPLY Qty: 1 0RF Rx Instructions: As directed (DME) Bone growth stimulator See Rx Instructions .Route .MEDSUPPLY Qty: 1 0RF Rx Instructions: As directed (DME) Bone growth stimulator See Rx Instructions .Route .MEDSUPPLY Qty: 1 0RF Rx Instructions: As directed (DME) insulin syringes (disposable) 1 mL syringe See Rx Instructions .ROUTE .MEDSUPPLY Qty: 25 3RF Rx Instructions: As directed methotrexate sodium 25 mg/mL solution 20 mg SUBCUT .Q7days Qty: 10 1RF Rx Instructions: ON MONDAYS oxycodone 10 mg tablet 10 mg PO Q8H PRN (Reason: Pain) ropinirole 5 mg tablet 5 mg PO BID Qty: 270 0RF ramelteon 8 mg tablet 8 mg PO BEDTIME atorvastatin 40 mg Tablet 40 mg PO BEDTIME 30 Days Qty: 30 0RF aspirin 81 mg Tablet,Delayed Release (Dr/Ec) 81 mg PO DAILY 30 Days Qty: 30 0RF nitroglycerin 0.4 mg Tablet, Sublingual 0.4 mg sublingual Q5M PRN (Reason: Chest Pain) 30 Days Qty: 30 0RF clopidogrel 75 mg tablet 75 mg PO DAILY 30 Days Qty: 30 0RF pantoprazole [Protonix] 40 mg tablet,delayed release (DR/EC) 40 mg PO Q12H 30 Days Qty: 60 0RF potassium chloride 20 mEq tablet extended release 20 meq PO DAILY Qty: 30 0RF promethazine 25 mg tablet 25 mg PO Q6H PRN (Reason: Nausea) folic acid 1 mg tablet 1 mg PO DAILY doxycycline hyclate 100 mg capsule 100 mg PO BID 10 Days Qty: 20 0RF albuterol sulfate 90 mcg/actuation HFA aerosol inhaler 2 inh INHALATION Q4H PRN (Reason: shortness of breath or wheezing) Qty: 18 0RF lidocaine 5 % adhesive patch,medicated 1 patch topical [id number] PRN (Reason: Pain) gabapentin 300 mg capsule 300 mg PO TID fluticasone propionate 50 mcg/actuation spray,suspension 1 spray INTRANASAL BID PRN (Reason: allergies) baclofen 10 mg tablet 5 mg PO Q12H PRN (Reason: Muscle Spasm) Qty: 30 0RF alprazolam [Xanax] 0.25 mg tablet 0.5 mg PO DAILY PRN (Reason: anxiety) Rx Instructions: Do not drive or operate heavy machinery or drink while taking medications ranolazine 500 mg Tablet Extended Release 12 Hr 500 mg PO BID Qty: 180 0RF levothyroxine 125 mcg tablet 125 mcg PO DAILY Qty: 30 0RF Changed sucralfate 1 gram tablet 1 g PO AC Qty: 90 0RF furosemide 80 mg tablet 40 mg PO DAILY Qty: 1 0RF Discontinued methylprednisolone [Medrol (See)] 4 mg tablets,dose pack See Rx Instructions .ROUTE .COMPLEX Qty: 21 0RF Rx Instructions: Take as directed per package directions Discharge Order = DC NOW: Discharge Order (Routine); Ordered 01/07/25 Ordered By: Medardo Montgomery Referrals: Nick Pan MD [Physician, Rheumatology] - 1 week Referral Note: We have notified your physician's clinic of the need for a follow-up appointment to be scheduled. If you have not heard from them within the next 2 business days, please call them directly. Diana Garcia PA [Primary Care Provider, [facility] [employer]] - 1 week Referral Note: You will need to call your primary care Wednesday to get a hosptial discharge follow up in 1 week. Discharge Diet: Cardiac Discharge Activity: Increase activity as tolerated Patient Instructions: Dexamethasone (By mouth), Noncardiac Chest Pain (ED), Opioid Safety, Pain Management, Patient Portal & Cece Instructions Activity Restrictions/Additional Instructions: Take Decadron 4 mg each morning but if you have insomnia at night you can cut it down to 2 mg each morning Follow-up with Dr. Pan and Dr. Giordano. If they see any signs of vasculitis based on their evaluation or eye exam you should be considered for the diagnosis of giant cell arteritis. Your vascular surgeon would be the person to see to have a temporal artery biopsy. Because of your inflamed right arm wrist and fingers I treated you with Decadron 4 mg daily for 5 days. Follow-up with Dr. 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
--- NOTE | 2025-01-07 12:50 | PC.NURSE ---
Discharge paperwork discussed with patient and significant other. Written prescription was handed to patient and patient educated she could pick it up at any pharmacy. Patient educated she already had a dose of the medication via IV so she did not need to take it today. Patient understood the need to call provider tomorrow to set up a follow-up appointment. All questions were answered. IV was removed. Patient taken to exit by LUCERO Magana via wheelchair at 1252.
== END 2025-01-07 12:52 | disposition home or self-care (01) ==
LOC: ER 11:43 → ER IP 13:28 → MEDSURG 14:13
PROVIDERS: Admitting Provider Internal Medicine; Emergency Provider Emergency Medicine; PCP Physician Assistant; Visit Provider Internal Medicine
DX: I25.10 Atherosclerotic heart disease of native coronary artery without angina pectoris (principal); I50.30 Unspecified diastolic (congestive) heart failure; R51.9 Headache, unspecified; M06.9 Rheumatoid arthritis, unspecified; K21.9 Gastro-esophageal reflux disease without esophagitis; Z79.82 Long term (current) use of aspirin; Z79.891 Long term (current) use of opiate analgesic; Z79.4 Long term (current) use of insulin; R73.03 Prediabetes; Z86.718 Personal history of other venous thrombosis and embolism; N18.30 Chronic kidney disease, stage 3 unspecified; E78.5 Hyperlipidemia, unspecified; E03.9 Hypothyroidism, unspecified; D50.9 Iron deficiency anemia, unspecified; Z87.891 Personal history of nicotine dependence; Z95.5 Presence of coronary angioplasty implant and graft; F41.8 Other specified anxiety disorders
CPT/HCPCS: 36415; 71045; 80053; 82271; 83690; 84484; 85025; 85651; 86140; 93005; 96374; 96375; 96376; 99285; G0378; J1100; J1171; J2405; J9999; Q0169

== ENCOUNTER → 2025-01-10 15:53 | Outpatient (BNVA) | payer MEDICARE, OTHER, SELFPAY | PROVIDERS: PCP Physician Assistant; Visit Provider Nurse Practitioner Family | DX: R06.02 Shortness of breath (principal); J43.8 Other emphysema; Z95.828 Presence of other vascular implants and grafts; Z90.49 Acquired absence of other specified parts of digestive tract; Z98.890 Other specified postprocedural states; R07.89 Other chest pain; I25.10 Atherosclerotic heart disease of native coronary artery without angina pectoris; I50.30 Unspecified diastolic (congestive) heart failure; R60.9 Edema, unspecified; M79.603 Pain in arm, unspecified; Z87.891 Personal history of nicotine dependence; Z95.5 Presence of coronary angioplasty implant and graft | CPT/HCPCS: 71046; 99214 ==

== ENCOUNTER → 2025-01-18 12:45 | Outpatient (BNVA) | payer MEDICARE, OTHER, SELFPAY | PROVIDERS: PCP Physician Assistant; Visit Provider Internal Medicine Rheumatology | DX: M05.79 Rheumatoid arthritis with rheumatoid factor of multiple sites without organ or systems involvement (principal); Z79.899 Other long term (current) drug therapy; Z71.85 Encounter for immunization safety counseling; Z98.1 Arthrodesis status; Z98.890 Other specified postprocedural states | CPT/HCPCS: 99214 ==

== ENCOUNTER 2025-02-14 06:32 | Emergency (ER) | payer MEDICARE, OTHER, SELFPAY ==
--- OUTSIDE RECORDS SUMMARY | 2024-05-02 07:00 | XMS_ITS ---
Author Organization [facility] Address [address] [place] [address] Care Team Providers Care Emergency Communications Operator Name Role Phone Diana Galvan Primary Care Provider Mode Leavitt Unavailable [phone] Rajesh Serna Unavailable [phone] REASON FOR VISIT 2 month f/u cervicalgia/lumbar radiculopathy Encounters Encounter Location Date Provider Diagnosis [facility] [place] [address] [address] 05/02/2024 Rajesh Serna Plan Of Treatment Next Appt Details Provider Name:Deedee Mynor guan, 02/16/2025 10:20:00 AM, [address] [place], [address], Progress Notes * BARRY VAN SDOB:[birth year] (69 yo F)Acc No.[id number]:05/02/2024 Progress Notes Patient: BARRY LIVINGSTON Provider: Iraida Serna MD :1955 A ge:69 Y S ex:Female Date:05/02/2024 Address:[address] [place] [address] [place] [id number] Pcp:SHIV Chong Subjective: * Chief Complaints: * 2 month f/u cervicalgia/lumbar radiculopathy Billing Information: * Procedure Codes: Care Plan Details* * Electronic signature of Dylan Serna MD on 02/14/2025 at 06:37 AM ORNAMENT STITCHER Sign off status: Pending * Provider: Iraida Serna MD Date: 0 05/02/2024 Generated for Shen lindo/Sindy/Chandler on: 04/16/2024 06:37 AM ORNAMENT STITCHER
--- OUTSIDE RECORDS SUMMARY | 2024-07-17 03:30 | XMS_ITS ---
Author Organization [facility] Address [address] [place] [address] Care Team Providers Care Head Men'S Golf Coach Name Role Phone Diana Galvan Primary Care Provider Mode Leavitt Unavailable [phone] Paxton Nobles Unavailable [phone] REASON FOR VISIT wants new mri Encounters Encounter Location Date Provider Diagnosis [facility] [place] [address] [address] 07/17/2024 Paxton Nobles Plan Of Treatment Next Appt Details Provider Name:Deedee Mynor guan, 02/16/2025 10:20:00 AM, [address] [place], [address], Progress Notes * BARRY VAN SDOB:[birth year] (69 yo F)Acc No.[id number]:07/17/2024 Progress Notes Patient: EVELIO LIVINGSTONMynor Fei Provider: Rosalia Nobles APRN :1955 A ge:69 Y S ex:Female Date:07/17/2024 Address:[address] [place] [phone] Pcp:SHIV Chong Subjective: * Chief Complaints: * W ants new mri Billing Information: * Procedure Codes: Care Plan Details* * Electronic signature of Will MALKI Donald on 02/14/2025 at 06:36 AM FIRE BOAT ENGINEER Sign off status: Pending * Provider: Rosalia Nobles APRN Date: 0 07/17/2024 Generated for Shen Faith/Chandler on: 1 04/16/2024 06:36 AM FIRE BOAT ENGINEER
[2025-02-14] VITALS (8 sets, daily range): BP systolic 109–126; BP diastolic 47–88; PULSE 61–87; RESP 16–25; TEMP 37.1; O2SAT 91–96; BMI 27.4
--- OUTSIDE RECORDS SUMMARY | 2025-02-14 06:36 | XMS_ITS | Patient Health Record ---
Author Organization [facility] Address [address] [place] [address] Care Team Providers Care Slitter And Rewinder Name Role Phone Diana Galvan Primary Care Provider UnavailMode Estevez Unavailable [phone] Rajesh Serna Unavailable [phone] Paxton Nobles Unavailable [phone] Desiree Cox Unavailable Deedee Villarreal Unavailable [phone] Allergies Allergen (clinical drug ingredient) Drug/Non Drug Allergy documented on EMR Reaction Allergy Type Onset Date Status diphenhydramine Benadryl Unknown Drug Allergy A ctive sumatriptan Imitrex Unknown Drug Allergy Activ e Results Component Value Reference Range Flag Notes Urine Confirmation Panel (in strument) - [id number] Reviewed date:12/05/2024 02:47:57 PM Interpretation: Performing Lab: [...] the U.S. Food and Drug Administration. Gabapentin >07188 <225 ng/mL > This test was developed [...] Administration. Urine Drug Screen (cup read) - 76253 Reviewed date:11/27/2024 02:11:57 PM Interpretation: Performing Lab: Notes/Report: OXY + Urine Drug Screen (cup read) - [id number] Reviewed date:03/30/2024 03:52:14 PM Interpretation: Performing Lab: Notes/Report: OXY + zzzUrine Drug Screen (confir mation by instrument) - [id number] Reviewed date:04/06/2024 12:03:00 PM Interpretation: Performing Lab: Notes/Report: Tox Results Reviewed date:12/05/2024 02:35:33 PM Interpretation: Performing Lab: Notes/Report: Schedule Confirmation (Not y et reviewed by provider) Interpretation: Performing Lab: Notes/Report: IPMA Saliva Drug Screen Reviewed date:09/01/2024 10:27:02 AM Interpretation: Performing Lab: Notes/Report: Schedule Confirmation (Not y et reviewed by provider) Interpretation: Performing Lab: Notes/Report: Schedule Confirmation (Not y et reviewed by provider) Interpretation: Performing Lab: Notes/Report: Schedule Confirmation (Not y et reviewed by provider) Interpretation: Performing Lab: Notes/Report: Urine Confirmation Panel (in strument) - [id number] Reviewed date:06/28/2024 02:49:57 PM Interpretation: Performing Lab: [...] the U.S. Food and Drug Administration. Gabapentin >12882 <225 ng/mL > This test was developed [...] Administration. Urine Drug Screen (cup read) - 25949 Reviewed date:06/22/2024 01:19:32 PM Interpretation:Positive Performing Lab: Notes/Report: Positive OXY + zzzCT Outside CD (Not yet re viewed by provider) Interpretation: Performing Lab: Notes/Report: [id number] Tox Results Reviewed date:06/28/2024 02:49:57 PM Interpretation: Performing Lab: Notes/Report: Urine Drug Screen (cup read) - 32886 Reviewed date:10/05/2024 10:34:03 AM Interpretation: Performing Lab: Notes/Report: BZO + OPI + Reason For Referral Reason EMG/NCV study of the bilateral upper extremities Diagnosis 1 Pain in right upper arm (M79.621) Diagnosis 2 Pain in left upper a rm (M79.622) Diagnosis 3 Cervical radiculopat hy (M54.12) Diagnosis 4 Cervical paraspinal muscle spasm (M62.838) Referral Organization [facility] [place] Referring Provider First Name Rajesh Referring Provider Last Name Kareem Referring Provider Speciality Neurosurge ry Referred Provider [facility] (Main) Referred Provider Specialty Physical The rapist Referral Priority Routine Reason EMG/NCV Bilateral Up per Extremities Diagnosis 1 Pain in right upper arm (M79.621) Diagnosis 2 Pain in left upper a rm (M79.622) Diagnosis 3 Cervical radiculopat hy (M54.12) Diagnosis 4 Degenerative disc di sease, cervical (M50.30) Diagnosis 5 Cervical paraspinal muscle spasm (M62.838) Referral Organization [facility] Referring Provider First Name Rajesh Referring Provider Last Name Kareem Referring Provider Speciality Neurosurge ry [facility] Referred Provider Specialty Physical The rapist Referral Priority Routine Reason Evaluation of a cerv ical spinal cord stimulator Diagnosis 1 Cervical paraspinal muscle spasm (M62.838) Diagnosis 2 Chronic pain syndrom e (G89.4) Diagnosis 3 Arthrodesis status ( Z98.1) Referring Provider First Name Rajesh Referring Provider Last Name Kareem Referring Provider Speciality Neurosurge tahmina Referred Organization [facility] Referred Provider Mode Cabello Referred Address [address] [facility],[address], General Notes Alissa Myrick 0 05/19/2024 03:03:09 PM >ATC to schedule. Referral Priority Routine Reason Evaluation of a cerv ical spinal cord stimulator Diagnosis 1 Chronic pain syndrom e (G89.4) Diagnosis 2 Cervical paraspinal muscle spasm (M62.838) Diagnosis 3 Arthrodesis status ( Z98.1) Referral Organization [facility] [place] Referring Provider First Name Rajesh Referring Provider Last Name Kareem Referring Provider Speciality Neurosurge tahmina Referred Provider Mode Cabello Referred Provider Specialty Intervention al Pain Medicine Referral Priority Routine Medications Medication SIG (Take, Route, Frequency, Duration) Notes Start Date End Date Status oxyCODONE HCl 10 MG Tablet 1 tablet Orally every 8 hrs; Duration: 7 days As needed Do not exceed 3 per day Fill on 02/07/2025 02/02/2025 02/14/2025 Active Social History Social History Additional Details [...] Status Risk Notes Problem Chronic pain syndrome (258420496) Chronic pain syndrome (G89.4) 09/15/19 24 Active confirmed Problem Cervical spondylosis without myelopathy (988812235) Other spondylosis with radiculopathy, cervical region (M47.22) 09/15/19 24 Active confirmed Problem Degeneration of cervical intervertebral disc (58284214) Other cervical disc degeneration, unspecified cervical region (M50.30) 09/15/19 24 Active confirmed Problem Post-laminectomy syndrome (66769701) Postlaminectomy syndrome, not elsewhere classified (M96.1) 09/15/19 24 Active confirmed Problem Abnormal gait (58058606) Unspecified abnormalities of gait and mobility (R26.9) 09/15/19 24 Active confirmed Problem High risk drug monitoring status (002173430) MCFP (current) use of opiate analgesic (Z79.891) 09/15/19 24 Active confirmed Problem Cervical radiculopathy (70121549) Cervical radiculopathy (M54.12) Active confirmed Problem Peripheral vascular disease (049352268) Peripheral vascular disease (I73.9) Active confirmed Problem Neck pain (52235528) Cervical pain (neck) (M54.2) Active confirmed Problem 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) (922648375) Facet arthropathy, 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) Active confirmed Problem Degeneration of cervical intervertebral disc (84548750) Degenerative disc disease, cervical (M50.30) Active confirmed Vital Signs Heart Rate 68 /min 05/04/2024 Temperature 98.2 degrees Fahrenheit 05/04/2024 Respiratory Rate 20 /min 05/04/2024 Blood pressure diastolic 64 mm Hg 05/04/2024 Oximetry 96 % 05/04/2024 Height-cm 165.1 cm 11/27/2024 Weight-kg 63.5 kg 11/27/2024 Height 65 in 11/27/2024 Blood pressure systolic 122 mm Hg 05/04/2024 Weight 140 lbs 11/27/2024 BMI 23.29 kg/m2 11/27/2024 Encounters Encounter Location Date Provider Diagnosis [facility] [address] [address] 02/17/2024 Deedee Villarreal [facility] [address] [address] 11/27/2024 Deedee Villarreal Chronic pain syndrom e G89.4 ; Other spondylosis with radiculopathy, cervical region M47.22 ; Myalgia of auxiliary muscles, head and neck M79.12 ; Unspecified abnormalities of gait and mobility R26.9 ; Postlaminectomy syndrome, not elsewhere classified M96.1 ; Other cervical disc degeneration, unspecified cervical region M50.30 and 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 (current) 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 of opiate analgesic Z79.891 [facility] [address] [address] 10/05/2024 Deedee Villarreal Chronic pain syndrom e G89.4 ; Other spondylosis with radiculopathy, cervical region M47.22 ; Myalgia of auxiliary muscles, head and neck M79.12 ; Unspecified abnormalities of gait and mobility R26.9 ; Postlaminectomy syndrome, not elsewhere classified M96.1 ; Other cervical disc degeneration, unspecified cervical region M50.30 and 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 (current) use of opiate analgesic Z79.891 [facility] [address] [address] 08/24/2024 Deedee Villarreal Chronic pain syndrom e G89.4 ; Other spondylosis with radiculopathy, cervical region M47.22 ; Myalgia of auxiliary muscles, head and neck M79.12 ; Unspecified abnormalities of gait and mobility R26.9 ; Postlaminectomy syndrome, not elsewhere classified M96.1 ; Other cervical disc degeneration, unspecified cervical region M50.30 and 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 (current) use of opiate analgesic Z79.891 [facility] [address] [address] 06/22/2024 Deedee Villarreal Chronic pain syndrom e G89.4 ; Other cervical disc degeneration, unspecified cervical region M50.30 ; Other spondylosis with radiculopathy, cervical region M47.22 ; Myalgia of auxiliary muscles, head and neck M79.12 ; Postlaminectomy syndrome, not elsewhere classified M96.1 ; Unspecified abnormalities of gait and mobility R26.9 and MCFP (current) use of opiate analgesic Z79.891 [facility] [address] [address] 05/24/2024 Mode Cabello Chronic pain syndrom e G89.4 ; Other cervical disc degeneration, unspecified cervical region M50.30 ; Other spondylosis with radiculopathy, cervical region M47.22 ; Myalgia of auxiliary muscles, head and neck M79.12 ; Postlaminectomy syndrome, not elsewhere classified M96.1 ; Unspecified abnormalities of gait and mobility R26.9 and 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 (current) use of opiate analgesic Z79.891 [facility] [address] [place] [address] 05/04/2024 Rajesh Serna Cervical paraspinal muscle spasm M62.838 ; Chronic pain syndrome G89.4 ; Degenerative disc disease, cervical M50.30 ; Cervical radiculopathy M54.12 and Arthrodesis status Z98.1 [facility] [address] [address] 04/26/2024 Mode Cabello Chronic pain syndrom e G89.4 ; Other spondylosis with radiculopathy, cervical region M47.22 ; Other cervical disc degeneration, unspecified cervical region M50.30 ; Myalgia of auxiliary muscles, head and neck M79.12 ; Postlaminectomy syndrome, not elsewhere classified M96.1 ; Unspecified abnormalities of gait and mobility R26.9 and MCFP (current) use of opiate analgesic Z79.891 [facility] [place] [address] [place] [address] 03/30/2024 Deedee Villarreal Chronic pain syndrom e G89.4 ; Other cervical disc degeneration, unspecified cervical region M50.30 ; Other spondylosis with radiculopathy, cervical region M47.22 ; Postlaminectomy syndrome, not elsewhere classified M96.1 ; Myalgia of auxiliary muscles, head and neck M79.12 ; Unspecified abnormalities of gait and mobility R26.9 and 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 (current) use of opiate analgesic Z79.891 [facility] [address] [address] 02/15/2024 Rajesh Serna Cervical radiculopat hy M54.12 ; Cervical paraspinal muscle spasm M62.838 ; Arthrodesis status Z98.1 ; Pain in right upper arm M79.621 ; Pain in left upper arm M79.622 and Loosening of hardware in spine T84.498A [facility] [place] [address] [place] [address] 04/10/2024 Rajesh Serna Cervical paraspinal muscle spasm M62.838 ; Degenerative disc disease, cervical M50.30 ; Cervical radiculopathy M54.12 ; Pain in left upper arm M79.622 and Pain in right upper arm M79.621 [facility] [address] [facility] [place] [address] 03/30/2024 Mode Cabello [facility] [place] [address] [place] [address] 03/30/2024 Rajesh Serna [facility] [address] [facility] [place] [address] 05/30/2024 Deedee Villarreal [facility] [address] [place] [address] 04/14/2024 Mode Cabello [facility] [place] [address] [place] [facility] [address] 02/02/2025 Desiree Macuksyutova-Margi ce Other spondylosis with radiculopathy, cervical region M47.22 [facility] [place] [address] [place] [facility] [address] 01/01/2025 Mode Cabello Other spondylosis wi th radiculopathy, cervical region M47.22 [facility] [place] [address] [place] [facility] [address] 11/27/2024 Desiree Lyuksyutova-Margi ce Other spondylosis with radiculopathy, cervical region M47.22 [facility] [place] [address] [place] [facility] [address] 10/05/2024 Desiree Lyuksyutova-Margi ce Other spondylosis with radiculopathy, cervical region M47.22 [facility] [place] [address] [place] [facility] [address] 08/24/2024 Mode Cabello Other spondylosis wi th radiculopathy, cervical region M47.22 [facility] [address] [place] [address], [place] [address] 08/17/2024 Mode Cabello [facility] [place] [address] [place] [facility] [address] 07/10/2024 Deedee Villarreal [facility] [place] [address] [place] [facility] [address] 06/22/2024 Mode Cabello Chronic pain syndrom e G89.4 and Other spondylosis with radiculopathy, cervical region M47.22 [facility] [place] [address] [place] [facility] [address] 06/05/2024 Mode Cabello Other spondylosis wi th radiculopathy, cervical region M47.22 [facility] [place] [address] [place] [address] 05/17/2024 Mode Cabello Assessments Encounter Date Diagnosis (ICD Code) Assessment Notes Treatment Notes Treatment Clinical Notes Section Notes 04/10/2024 Cervical paraspinal muscle spasm (ICD-10 - M62.838) 04/10/2024 Degenerative disc disease, cervical (ICD-10 - M50.30) 05/24/2024 Other cervical disc degeneration, unspecified cervical region (ICD-10 - M50.30) 05/24/2024 Chronic pain syndrome (ICD-10 - G89.4) [...] effects are noted. Last UDS and [employer] RO[employer] SUPERVISOR OF ENGINES reviewed today. Patient is advised that best long-term goals include increased activity, core strengthening, proper weight management, coping strategies, avoidance of painful triggers, and targeted interventional therapy. We will see the patient for routine follow up in accordance with all clinic policies. We did remind patient today of current guidelines to decrease opioid when possible. We will continue to stress nonopioid treatment. 05/04/2024 Chronic pain syndrome (ICD-10 - G89.4) 05/04/2024 Cervical paraspinal muscle spasm (ICD-10 - M62.838) 02/15/2024 Cervical radiculopathy (ICD-10 - M54.12) 02/15/2024 Cervical paraspinal muscle spasm (ICD-10 - M62.838) 02/02/2025 Other spondylosis with radiculopathy, cervical region (ICD-10 - M47.22) 04/26/2024 Chronic pain syndrome (ICD-10 - G89.4) [...] radiculopathy, cervical region (ICD-10 - M47.22) 03/30/2024 Chronic pain syndrome (ICD-10 - G89.4) I had a nice discussion with the patient today regarding her chronic pain complaints. She continues to have a lot of neck pain and is following with Dr. eSrna. She states that she is scheduled for [...] degeneration, unspecified cervical region (ICD-10 - M50.30) 11/27/2024 Other spondylosis with radiculopathy, cervical region (ICD-10 - M47.22) 06/05/2024 Other spondylosis with radiculopathy, cervical region [...] to monitor for treatment effectiveness and compliance. 01/01/2025 Other spondylosis with radiculopathy, cervical region [...] effects are noted. Last UDS and [facility] [employer] SUPERVISOR OF [employer]ES reviewed today. Patient is advised that best [...] by our urine testing policy. 10/05/2024 Other spondylosis with radiculopathy, cervical region [...] as for biannual appointment with Dr. Cabello. 08/24/2024 Other spondylosis with radiculopathy, cervical region [...] Chronic pain syndrome (ICD-10 - G89.4) 06/22/2024 Other spondylosis with radiculopathy, cervical region (ICD-10 - M47.22) 10/05/2024 Other spondylosis with radiculopathy, cervical region (ICD-10 - M47.22) 11/27/2024 Other spondylosis with radiculopathy, cervical region (ICD-10 - M47.22) 06/22/2024 Other cervical disc degeneration, unspecified cervical region (ICD-10 - M50.30) 03/30/2024 Other spondylosis with radiculopathy, cervical region (ICD-10 - M47.22) 02/15/2024 Arthrodesis status (ICD-10 - Z98.1) 04/26/2024 Other cervical disc degeneration, unspecified cervical region (ICD-10 - M50.30) 05/04/2024 Degenerative disc disease, cervical (ICD-10 - M50.30) 05/24/2024 Other spondylosis with radiculopathy, cervical region (ICD-10 - M47.22) 08/24/2024 Myalgia of auxiliary muscles, head and neck (ICD-10 - M79.12) 04/10/2024 Cervical radiculopathy (ICD-10 - M54.12) 05/24/2024 Myalgia of auxiliary muscles, head and neck (ICD-10 - M79.12) 05/04/2024 Cervical radiculopathy (ICD-10 - M54.12) 02/15/2024 Pain in right upper arm (ICD-10 - M79.621) 04/10/2024 Pain in left upper arm (ICD-10 - M79.622) 04/26/2024 Myalgia of auxiliary muscles, head and neck (ICD-10 - M79.12) 03/30/2024 Postlaminectomy syndrome, not elsewhere classified (ICD-10 - M96.1) 06/22/2024 Other spondylosis with radiculopathy, cervical region (ICD-10 - M47.22) 08/24/2024 Unspecified abnormalities of gait and mobility (ICD-10 - R26.9) 10/05/2024 Myalgia of auxiliary muscles, head and neck (ICD-10 - M79.12) 11/27/2024 Myalgia of auxiliary muscles, head and neck (ICD-10 - M79.12) 11/27/2024 Unspecified abnormalities of gait and mobility (ICD-10 - R26.9) 08/24/2024 Postlaminectomy syndrome, not elsewhere classified (ICD-10 - M96.1) 10/05/2024 Unspecified abnormalities of gait and mobility (ICD-10 - R26.9) 03/30/2024 Myalgia of auxiliary muscles, head and neck (ICD-10 - M79.12) 06/22/2024 Myalgia of auxiliary muscles, head and neck (ICD-10 - M79.12) 04/10/2024 Pain in right upper arm (ICD-10 - M79.621) 04/26/2024 Postlaminectomy syndrome, not elsewhere classified (ICD-10 - M96.1) 02/15/2024 Pain in left upper arm (ICD-10 - M79.622) 05/04/2024 Arthrodesis status (ICD-10 - Z98.1) 05/24/2024 Postlaminectomy syndrome, not elsewhere classified (ICD-10 [...] the procedure and all questions were answered. 05/24/2024 Unspecified abnormalities of gait and mobility (ICD-10 - R26.9) 02/15/2024 Loosening of hardware in spine (ICD-10 - T84.498A) 04/26/2024 Unspecified abnormalities of gait and mobility (ICD-10 - R26.9) 03/30/2024 Unspecified abnormalities of gait and mobility (ICD-10 - R26.9) 06/22/2024 Postlaminectomy syndrome, not elsewhere classified (ICD-10 - M96.1) 11/27/2024 Postlaminectomy syndrome, not elsewhere classified (ICD-10 - M96.1) 10/05/2024 Postlaminectomy syndrome, not elsewhere classified (ICD-10 - M96.1) 08/24/2024 Other cervical disc degeneration, unspecified cervical region (ICD-10 - M50.30) 08/24/2024 MCFP (current) use of opiate analgesic (ICD-10 - [...] effects are noted. Last UDS and [facility] [employer] SUPERVISOR OF ENGINES reviewed today. 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 Abhishek Canela, Vacular Surgeon in [place] after stent placement in the lower extremities. JUAN C reviewed I Alissa Mcconnell LPN [...] Name Order Date Cervical Spine AP/Lat 2-3 [id number] zzzCT Outside CD 06/20/2024 Schedule Confirmation 03/06/2024 Schedule Confirmation 03/06/2024 Schedule Confirmation 04/25/2024 Schedule Confirmation 04/25/2024 Next Appt Details Provider Name:Deedee Mynor guan, 02/16/2025 10:20:00 AM, [address] [place], [address], Insurance Providers Payer Name Payer Address Payer Phone Subscriber Number Group Number Insured Name Patient Relationship to Insured Coverage Start Date Coverage End Date [place] [address] [place] [phone] [id number] BARRY VAN Self - patient is the insured [place] [address] [phone] [id number] [place] VAN Self - patient is the insured [place] [address] [address] [place] [address] [phone] [id number] [place] VAN Self - patient is the insured Medical (General) History Surgical History Surgery Date(Month/Year) Neck surgeries Jaw surgeries left ankle surgery Hysterectomy Hernia surgery section Breast biopsy appendectomy
--- OUTSIDE RECORDS SUMMARY | 2025-02-14 06:36 | XMS_ITS | Patient Health Record ---
Author Organization [facility] Address [address] [facility] [address] [place] [address] Support Name Relationship Address Phone BARRY VAN Guarantor Unknown [phone] Allergies Allergen (clinical drug ingredient) Drug/Non Drug [...] Status W/U Status Risk Notes Problem Hypothyroidism (95280802) Other specified hypothyroidism (E03.8) Active confirmed Problem Chronic pancreatitis (521195119) Other chronic pancreatitis (K86.1) Active confirmed Problem Sciatica (83824856) Lumbago with sciatica, right side (M54.41) Active confirmed Problem Sciatica (20831630) Lumbago with sciatica, left side (M54.42) Active confirmed Problem Anxiety (74726946) Anxiety (F41.9) Active confirmed Problem Posttraumatic stress disorder (88408582) PTSD (post-traumatic stress disorder) (F43.10) Active confirmed Problem Heart failure (56359132) Other congestive heart failure (I50.9) Active confirmed Problem Chronic pain due to injury (321614681) 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) Active [...] End Date [place], [address] [address] GABI BRIZUELA [phone] [id number] BARRY VAN Self - patient is the insured [employer] [address] [place] [address] [place] [phone] [id number] BARRY VAN Self - patient is the insured Medical (General) History Medical History History ICD Code Hypothyroidism head injury with seizures multiple traumatic injuries from [facility] back surgery pancreatitis cataract pneumonia depression GERD Surgical History Surgery Date(Month/Year) back surgery 2014 Hospitalization History Reason Date(Month/Year) Pneumonia and hand infection. 11/2021
--- OUTSIDE RECORDS SUMMARY | 2025-02-14 06:36 | XMS_ITS | Clinical Summary ---
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
--- OUTSIDE RECORDS SUMMARY | 2025-02-14 06:36 | XMS_ITS | Patient Health Record ---
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) Active confirmed Problem Wrist joint effusion (271006614) Effusion, right wrist (M25.431) Active confirmed Problem 286951292 Dyslipidemia (E78.5) Active confirmed Problem 57771956 Seizures (R56.9) Active confirmed Problem 72379520 Heart murmur (R01.1) Active confirmed Problem 025337712 Diabetes mellitu s type 2 in nonobese (E11.9) Active confirmed Problem 572015849 GERD without esophagitis (K21.9) Active confirmed Problem 616092998 Hypothyroidism (acquired) (E03.9) Active confirmed Problem 8197859180842 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) Active confirmed Problem 79042444 Depression, unspecified depression type (F32.9) Active confirmed Problem 643173954 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 [place] [id number] Tosha Perry Self - patient is the insured 1 9 [facility] SUPPLEMENT [id number] [facility], [place] [id number] Tosha Perry Self - patient is the [...]
--- OUTSIDE RECORDS SUMMARY | 2025-02-14 06:37 | XMS_ITS | Data Portability ---
Author Organization [facility] Address [address] [address] Care Team Providers Care Baggage Checker Name Role Phone DIANA GARCIA Primary Care Provider Unavailabl e Assessment No assessment recorded. Plan of Treatment Reminders Order Date Submit Date Provider Last Modified By Organization Details Last Modified Time Details Appointments LAB 2024 01:30P M LAB Not available Not available Not available OFFICE VISIT 20 2024 01:20P M DIANA GARCIA PA-C Not available Not available Not available Lab CBC [address]24 [id number] [facility], [address] [facility], [facility], [place], [address], 02/13/2025 15:17:46 BMP, serum or plasma 2024 [id number], [address] [facility], [facility], [place], [address], 02/13/2025 15:16:42 BMP, serum or plasma [address] [facility], [address] [facility], [place], [address], 12/11/2024 15:14:32 CBC [email or web address] [place], [place] [address]ek Lab, [address] [facility] [address], [place], [address], 12/11/2024 15:14:32 Referral physical therapist referral 2024 025 [email or web address] [id number] [facility], [address], [place], [address], 12/06/2024 15:40:29 physical therapist referral [address], [address] [place], [address], 01/02/2025 15:03:25 Procedures None recorded. Surgeries None recorded. Imaging None recorded. Medication Orders atorvasta tin 40 mg tablet [address] [facility]Pharmacy #[id number], [address], [facility], [place], [address], 02/13/2025 15:20:22 ranolazin e ER 500 mg tablet,ex tended release,1 2 hr [address] [facility]/Pharmacy #[id number], [address], [facility], [place], [address], 02/13/2025 15:20:22 furosemid e 40 mg tablet [address] [facility]/Pharmacy #[id number], [address], [facility], [place], [address], 02/13/2025 15:16:44 potassium chloride 40 mEq/15 mL oral liquid 2024 [address] [facility]/Pharmacy #[id number], [address], [facility], [place], [address], 02/13/2025 15:16:44 gabapenti n 300 mg capsule [id number]/Pharmacy #[id number], [address], [facility], [place], [address], 12/01/2024 09:30:07 ramelteon 8 mg tablet 2024 025 [id number] [address], [address], [place], [address], 12/01/2024 09:30:10 promethaz ine 25 mg tablet 2024 025 [id number], [address], [address], [place], [address], 12/18/2024 05:01:36 folic acid 1 mg tablet 2024 025 [id number], [address], [address], [place], [address], 12/01/2024 09:30:09 pantopraz ole 40 mg tablet,de layed release [id number]/Pharmacy #[id number], [address], [address], [place], [address], 12/01/2024 09:30:07 Patient TargetsNo targets recorded. Patient InstructionsNo instructions recorded. Reason for Referral Physical Therapist Referral for Lymphedema Referring Physician: [facility], Encounter Date: 12/01/2024 Physical Therapist Referral for Chronic neck pain Referring Physician: [facility], Encounter Date: 12/01/2024 Problems Name Problem SNOMED Code Status Onset Date Resolution Date Notes Provider Name and Address Organization Details Recorded Time Hand pain 59743929 Completed 202205/14/2024 NICOLE gustafson PA Neftali [facility] 07:55:21 Hand pain 37262007 Completed 202205/14/2024 NICOLE gustafson PA Neftali [facility] 07:55:15 Low back pain 645418699 Completed 202305/14/2024 NICOLE gustafson, [facility], LHarjeetLHarjeetCHarjeet 5 18:20:21 Deep venous thrombosi s of lower extremity 369501958 Completed 202305/14/2024 at [facility] non occlusi ve. IVC placed due to no able to take blood thinner s. NICOLE gustafson, [facility], RodgerLHarjeetCHarjeet 5 07:54:08 Chronic pain 72173382 Active 2023 NICOLE gustafson, [facility], RodgerLHarjeetCHarjeet 5 07:54:43 Hospital inpatient stay within past 30 days 89568915977 06 Completed 202305/14/2024 NICOLE gustafson [facility], RodgerLHarjeetCHarjeet 5 07:55:38 History of cervical spine fusion 31981709568 Completed 202305/14/2024 NICOLE gustafson, [facility], LHarjeetL.CHarjeet 5 07:55:29 Hypothyro idism 80407351 Active 2023 NICOLE gustafson, [facility], LHarjeetL.CHarjeet 5 07:55:43 Depressiv e disorder 32549963 Active 2023 NICOLE gustafson, [facility], LHarjeetL.CHarjeet 5 07:54:53 Gastroeso phageal reflux disease without esophagit is 510814478 Active 2023 NICOLE gustafson, [facility], LHarjeetL.CHarjeet 5 07:55:09 Anxiety 01164355 Active 2023 NICOLE gustafson [facility], LHarjeetLHarjeetCHarjeet 5 07:54:40 Rib pain 349731672 Completed 202305/14/2024 NICOLE HAEFFNER null, [facility] 5 07:57:21 Nausea 752146963 Completed 202305/14/2024 NICOLE HAEFFNER null, [facility] 5 07:55:56 Peptic ulcer 93187383 Completed 202305/14/2024 NICOLE HAEFFNER null, [facility] 5 07:57:13 Pain in bilateral legs 37833830546 927820 Completed 202305/14/2024 NICOLE HAEFFNER null, [facility] 5 07:56:52 Pain in left lower limb 055102815 Completed 202305/14/2024 [facility] 07:57:01 Acquired dilation of bile duct 88821406412 36534 Completed 202305/14/2024 NICOLE HAEFFNER null, [facility] 5 07:54:30 Deep venous thrombosi s 562546687 Completed 202305/14/2024 NICOLE HAEFFNER null, [facility] 5 07:54:50 Anemia 195794093 Active 2023 NICOLE HAEFFNER null, [facility] 5 07:54:37 Pain in right arm 299831152 Completed 202305/14/2024 NICOLE HAEFFNER null, [facility] 5 07:57:07 Right upper quadrant pain 798757573 Completed 202305/14/2024 NICOLE CRANE [facility] 5 07:57:36 Nausea and vomiting 41828718 Completed 202305/14/2024 NICOLE gustafson, [facility] 5 07:56:02 Edema 491507017 Completed 202305/14/2024 NICOLE CRANE [facility] 5 07:54:58 Rheumatoi d arthritis 02989716 Active 2024 NICOLE CRANE [facility] 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 08:05:04 Low back pain 851368846 Active 2024 NICOLE CRANE [facility] 5 18:20:21 Restless legs syndrome 94057861 Active 2024 [facility] 18:20:23 Chronic insomnia 156303832 Active 2024 NICOLE CRANE [facility] 5 18:31:19 Problem Notes None recorded. Procedures Surgical History Date Name Laterality Status Provider Name and Address Organization Details Recorded Time 2024 fluoroscopic angiography of coronary artery with contrast and insertion of stent completed NICOLE CRANE [facility] L.L.CH[facility]jeet 5 18:02:58 2024 plain X-ray of chest completed PAULETTE JASON [facility] 5 00:10:[address] of abdomen and pelvis completed PAULETTE JASON [facility] 5 00:12:33 2023 insertion of arterial stent completed JER GARCIA PA-C [address] [place], [address], [facility] 4 15:12:39 2023 colonoscopy completed DIANA GARCIA PA-C [address] [place], [address], [facility] 4 17:29:05 2023 esophagogastroduodenoscopy completed DIANA GARCIA PA-C [address] [place], [address], [facility] 4 17:08:01 2023 ultrasonography of liver completed NICOLE CRANE [facility] 4 16:43:05 2023 primary posterior decompression cervical cord and fusion completed DIANA GARCIA PA-C [address] [place], [address], [facility] 4 13:58:12 2023 insertion of inferior vena caval filter completed DIANA GARCIA PA-C [address] [place], [address], [facility] 4 13:58:28 2022 primary fusion of cervical spine completed DIANA GARCIA PA-C [address] [place], [address], [facility] 3 12:50:26 Imaging Results None recorded. Procedure Notes None recorded. Medical Equipment None Reported. Allergies Allergen ID Allergen Name Allergen Category Reaction Reaction Severity Criticality Documentation Date Start Date Code Code System Note Provider Name and Address Organization Details Recorded Time 88243 Benadryl medicatio n Not available Not available Not available 03/12/2023 77292 7 RxNorm NICOLE gustafson [facility], Job 3 12:01:01 68350 amitripty line medicatio n Not available Not available Not available 03/12/2023 704 RxNorm NICOLE gustafson [facility], Job 3 12:01:37 94776 tizanidin e medicatio n Not available Not available Not available 03/12/2023 37468 RxNorm NICOLE gustafson [facility], RodgerLIgnacio 3 12:08:21 43511 morphine medicatio n confusion Not available [facility] 09/02/2023 7052 RxNorm DIANA GARCIA PA-C [address] [place] [address], [phone] , [facility], Job 4 15:15:03 47424 venlafaxi ne medicatio n itching Not available Not available 02/13/2025 78590 RxNorm NICOLE gustafson [facility], LHarjeetLIgnacio 5 14:50:24 Medications Name Sig Start Date Stop Date Status Note LastModified by Organization Details LastModified Time fluoxetine 40 mg capsule TAKE 1 CAPSULE BY MOUTH EVERY MORNING 03/12 completed Not Available Not Available Not Available furosemide 40 mg tablet Take 1 tablet every day by oral route as needed. 2024 active Not Available Not Available Not Avai lable latanopros t 0.005 % eye drops PLACE 1 DROP INTO BOTH EYES AT BEDTIME 12/13 completed Not Available Not Available Not Available fluconazol e 100 mg tablet TAKE 1 TABLET BY MOUTH EVERY DAY FOR 14 DAYS 06/02 completed Not Available Not Available Not Available atorvastat in 40 mg tablet TAKE ONE TABLET BY MOUTH AT BEDTIME 2024 active Not Available Not Available Not Avai lable prednisone 10 mg tablet 1 qod 04/15 completed Not Available Not Available Not Available venlafaxin e ER 75 mg capsule,ex tended release 24 hr TAKE 1 CAPSULE BY MOUTH DAILY ANXIETY AND CATAPLEXY 02/13 completed Not Available Not Available Not Available gabapentin 600 mg tablet 1 tid [...] Not Available sucralfate 1 gram tablet TAKE ONE TABLET BY MOUTH TWICE DAILY active Not Available Not Available No t Available promethazi ne 12.5 mg tablet TAKE [...] Not Available prednisone 20 mg tablet TAKE 1 OR 2 TABS DAILY UP TO 7 DAYS NEEDED FOR JOINT PAIN FLARE 02/13 completed Not Available Not Available Not Available [...] Available clopidogre l 75 mg tablet TAKE ONE TABLET BY MOUTH DAILY active Not Available Not Available No t Available methotrexa te sodium 25 mg/mL injection solution INJECT 20 MG (0.8 ML) SUBCUTANE OUSLY EVERY 7 DAYS ON Mondays completed Not Available Not Available Not Available sulfametho xazole 800 mg-trimeth oprim 160 [...] completed Not Available Not Available Not Available aspirin 81 mg tablet,del ayed release TAKE ONE TABLET BY MOUTH DAILY active Not Available Not Available No t Available leflunomid e 20 mg tablet TAKE [...] TAKE 1 TABLET BY MOUTH EVERY DAY 12/26 completed Not Available Not Available Not Available dicyclomin e 20 mg tablet TAKE [...] TABLET BY MOUTH THREE TIMES A DAY NEEDED FOR 90 DAYS active Not Available Not Available No t Available potassium chloride 40 mEq/15 mL oral liquid Take 7.5 mL every day by oral route for 30 days. 2024 active Not Available Not Available Not Avai lable pantoprazo le 40 mg tablet,del ayed release TAKE ONE TABLET BY MOUTH EVERY TWELVE HOURS active Not Available Not Available No t Available levothyrox ine 125 mcg tablet TAKE 1 TABLET BY MOUTH EVERY DAY 12/26 completed Not Available Not Available Not Available dexamethas one 4 mg tablet TAKE 1 TABLET BY MOUTH DAILY 02/13 completed Not Available Not Available Not Available promethazi ne 25 mg/mL injection solution 10/25 completed Not Available Not Available Not Available lidocaine 5 % topical patch APPLY 1 PATCH TOPICALLY ON 12 HOURS, OFF 12 HOURS active Not Available Not Available No t Available promethazi ne 25 mg tablet TAKE 1 TABLET BY MOUTH EVERY 4 HOURS NEEDED FOR NAUSEA OR VOMITING active Not Available Not Available No t Available brimonidin e 0.2 % eye drops active Not Available Not Available No t Available BD Luer-Eloise Syringe 3 mL 25 gauge x 1 DIRECTED 12/26 completed Not Available Not Available Not Available nitroglyce rin 0.4 mg sublingual tablet DISSOLVE 1 TABLET UNDER THE TONGUE EVERY 5 MINUTES NEEDED FOR CHEST PAIN. DO NOT EXCEED A TOTAL OF 3 DOSES IN 15 MINUTES. active Not Available Not Available No t Available docusate sodium 100 mg capsule 12/13 completed Not Available Not Available Not Available gabapentin 300 mg capsule TAKE 1 CAPSULE BY MOUTH TWICE A DAY FOR 30 DAYS active Not Available [...] Not Available Not Available Not Available furosemide 20 mg tablet TAKE 1 TABLET BY MOUTH EVERY DAY AT 8AM 02/13 completed Not Available Not Available Not Available [...] Not Available No t Available ondansetro n 4 mg disintegra ting tablet DISSOLVE ONE TABLET BY MOUTH EVERY DAY NEEDED FOR NAUSEA AND VOMITING 03/12 completed Not Available Not Available Not Available cefdinir 300 mg capsule TAKE 1 CAPSULE BY MOUTH TWICE DAILY FOR 5 DAYS 12/01 completed Not Available Not Available Not Available [...] day by oral route for 90 days. 2024 active Not Available Not Available Not Avai lable amoxicilli n 875 mg-potassi um clavulanat e [...] oral route as needed for 30 days. 12/26 completed Not Available Not Available Not Available ramelteon 8 mg tablet TAKE 1 TABLET BY MOUTH EVERY DAY AT BEDTIME active Not Available Not Available No t Available aspirin 81 MG QD 02/13 completed Not Available Not Available Not Available ranolazine ER 500 mg tablet,ext ended release,12 hr Take 1 tablet twice a day by oral route for 30 days. 2024 active Not Available Not Available Not Avai lable oxycodone 10 mg tablet TAKE 1 TABLET BY MOUTH EVERY 8 HOURS NEEDED. DO NOT EXCEED 3 PER DAY active Not Available Not Available No [...] day by oral route for 30 days. 02/13 completed Not Available Not Available Not Available Movantik 12.5 mg tablet TAKE 1 [...] Updated DateTime 5 163.83 cm 23.8 kg/m2 46245.5 2 g 99 % 99 % 76 /min 18 /min 97 [degF] 136/80 mm[Hg] NICOLE SCHAFFEREDD [facility]jeet 5 14:52:39 Date Recorded Body height Body mass index (BMI) Body weight Oxygen saturation Oxygen saturation in Arterial blood by Pulse oximetry Heart rate Respiratory rate Body temperature Systolic And Diastolic Provider Name and Address Organization Details Last Updated DateTime 5 163.83 cm 24.2 kg/m2 51607.7 1 g 94 % 94 % 82 /min 20 /min 96.4 [degF] 114/60 mm[Hg] Meera Bowden [facility] L.LHarjeetCHarjeet 5 14:33:12 Date Recorded Body height Body mass index (BMI) Body weight Oxygen saturation Oxygen saturation in Arterial blood by Pulse oximetry Heart rate Respiratory rate Body temperature Systolic And Diastolic Provider Name and Address Organization Details Last Updated DateTime 5 163.83 cm 24.5 kg/m2 30921.8 9 g 95 % 95 % 80 /min 18 /min 97 [degF] 126/80 mm[Hg] NICOLE CRANE [facility] 5 08:55:39 Date Recorded Body height Body mass index (BMI) Body weight Oxygen saturation Oxygen saturation in Arterial blood by Pulse oximetry Heart rate Respiratory rate Body temperature Systolic And Diastolic Provider Name and Address Organization Details Last Updated DateTime 5 163.83 cm 23.5 kg/m2 25890.3 4 g 95 % 95 % 70 /min 18 /min 97.9 [degF] 120/70 mm[Hg] NICOLE CRANE [facility] 14:19:08 Date Recorded Body height Body mass index (BMI) Body weight Oxygen saturation Oxygen saturation in Arterial blood by Pulse oximetry Heart rate Respiratory rate Body temperature Systolic And Diastolic Provider Name and Address Organization Details Last Updated DateTime 5 163.83 cm 25.2 kg/m2 41192.2 6 g 96 % 96 % 78 /min 20 /min 98 [degF] 130/80 mm[Hg] NICOLE CRANE [facility] 14:41:35 Social History Question Answer Notes LastModified by ZIIBRA Details LastModified Time Tobacco Smoking Status Former Smoker [facility] 09/05/2023 15:56:32 Which Illicit Or Recreational Drugs Have You Used? Leilani [email or web address] Information not available 11/02/2024 What Was The Date Of Your Most Recent Tobacco Screening? 11/02/2024 [email or web address] Information not available 11/02/2024 At What Age Did You Start Smoking Tobacco? 49 For 3 Weeks Only [email or web address] Information not available 11/02/2024 Sex: Unknown Functional Status Question Answer Note LastModified by ZIIBRA Details LastModified Time Do you use any illicit or recreational drugs? Yes [email or web address] Information not available 11/02/2024 What is your level of alcohol consumption? None [email or web address] Information not available 11/02/2024 Mental Status None recorded. Family History Nothing Reported. Medical History No medical history recorded. Gynecological HistoryNo gynecological history recorded. Obstetrics History GPAL:G 0 P 0 0 0 0 Immunizations Vaccine Type Date Status Note Provider Nam e and Address Organization Details Recorded Time COVID-19, mRNA, LNP-S, PF, errol-sucrose, 30 mcg/0.3 mL 4 completed Gracie gustafson, [facility] 11/12/2023 15:11:33 Influenza, split virus, trivalent, PF 4 completed Not Available [facility] 02/13/2025 14:28:04 Pneumococcal conjugate PCV20, polysaccharide JJV411 conjugate, adjuvant, PF 5 completed NICOLE gustafson, [facility] 05/24/2024 16:17:51 Past Encounters Encounter ID Performer Location Encounter Start Date Encounter Closed Date Diagnosis/Indication Diagnosis SNOMED-CT Code Diagnosis ICD10 Code Diagnosis IMO Codes Diagnosis Note [id number] DIANA GARCIA PA-C [facility] ([facility]) [address] [place] [id number] 03/12/2023 11:51:10 03/15/2023 10:06:45 Pain of right hand 0645716942 19124 M79.641 Ganglion c yst of right wrist 1956530888 35771 M67.431 Acute urin albert tract infection 568044255 N39.0 Cervical spondylosis 387 725805 M47.812 C3/[address] Hung Oct Chronic low back pain 27 0838477 M54.50 Gallstone pancreatitis 88782443 K85.10 Has enlarge CBD on CT 14.5 mm. GB is absent Administra tion of viral vaccine 58352989 Z23 Rheumatoid arthritis [address] Crabtree [employer] form filled out during today's office visit [id number] DIANA GARCIA PA-C [facility] ([facility]) [address] [place] [phone] 04/15/2023 14:41:58 04/15/2023 16:52:11 Neuropathy 172793352 G62.9 Candidiasis of mouth 797 53865 B37.0 will tx with oral meds with suspiscion she may have some esophageal candidiasi s. Nausea and vomiting 1693 1999 R11.2 Iron defic iency anemia 57158017 D50.9 Hypothyroidism 24050037 E03.9 Rheumatoid arthritis [address] Crabtree [employer] form filled out during today's office visit Low back pain 584246379 M54.50 [id number] DIANA GARCIA PA-C [facility] ([facility]) [address] [place] [id number] 5 05/19/2023 13:23:55 05/25/2023 12:39:49 History of cervical spine fusion 0805244218 101 Z98.1 2.2.24 Posterior C2-T1 with Dr. Hung (3 neck surgeries in total) Upper gastrointestinal bleeding 94868992 K92.89 scope 03/[address] Ruiz. Deep venou s thrombosis 252304931 I82.409 found 2.2.24 not a candidate for anticoat due to recent GI bleed so IVC placed. Generalize d anxiety disorder 89022673 F41.1 monitor Benzo requests. Has several rxes xanax, valium and clonazepam from [facility] PCP, Dr. Hung ortho, and Dr. Gomes saw in SNF. Chronic pain syndrome 37 4720959 G89.4 Oxcontin 7.[address] Lisa. Recently increased to 10mg q 4 hrs from recent surgery. (temporary rx for [place] given waiting for Oxy to come in then d/margaret 2.8.24 KM) Anemia 652404219 D64.9 cbc, cmp on Wednesday [id number] Srinivasan Gomes DO [facility] ([facility]) [address] [place] [id number] 5 05/25/2023 08:03:34 05/31/2023 12:19:42 Hospital inpatient stay within past 30 days 4867314392 106 Z76.89 History of cervical spine fusion 0567160473 101 Z98.1 Hypothyroidism 23367784 E03.9 Chronic pain 80466637 G8 9.29 Depressive disorder 3548 9007 F32.A Gastroesop hageal reflux disease without esophagitis 844815812 K21.9 [id number] Srinivasan Gomes DO [facility] ([facility]) [address] [place] [id number] 5 06/01/2023 09:36:24 06/09/2023 06:46:40 Anxiety 31772070 F41.9 Chronic pain 22296925 G8 9.29 History of cervical spine fusion 6305675845 101 Z98.1 [id number] Srinivasan Gomes DO [facility] ([facility]) [address] [place] [id number] 5 06/08/2023 08:37:13 06/10/2023 16:36:08 History of cervical spine fusion 3561867845 101 Z98.1 Anxiety 09523663 F41.9 Chronic pain 32942677 G8 9.29 Depressive disorder 3548 9007 F32.A [id number] Srinivasan Gomes DO [facility] ([facility]) [address] [place] [id number] 5 06/15/2023 09:21:43 06/28/2023 15:09:18 History of cervical spine fusion 0875167823 101 Z98.1 Low back pain 223698382 M54.50 Depressive disorder 3548 9007 F32.A [id number] Ulysses Rivera MD [facility] ([facility]) [address] [place] [id number] 5 06/24/2023 12:59:38 06/27/2023 18:03:54 Anxiety 12483575 F41.9 Refill provided for medication . Rib pain 225937826 R07.8 1 Patient has pain along her [...] over the next 4 to 8 weeks. [id number] DIANA GARCIA PA-C [facility] ([facility]) [address] [place] [id number] 5 07/02/2023 09:48:49 07/02/2023 10:43:55 Spinal stenosis in cervical region 42308537 M48.02 Hospital i npatient stay within past 30 days 4015608759 106 Z76.89 Generalize d anxiety disorder 99653953 F41.1 monitor Benzo requests. Has several rxes xanax, valium and clonazepam from [facility] PCP, Dr. Anabell house, and Dr. Gomes saw in SNF. Opioid dependence 737522 00 F11.20 post cervical surgery 06/05. Getting in to Dr. Hung. [id number] DIANA GARCIA PA-C [facility] ([facility]) [address] [place] [id number] 5 08/03/2023 15:31:05 08/07/2023 08:56:13 Peptic ulcer 58971956 K27.9 EGD 11.1.23 neg H.pylori then Deep venou s thrombosis 867780850 I82.409 found 2.2.24 not a candidate for anticoat due to recent GI bleed so IVC placed. Abdominal pain 50397116 R10.9 Anemia 995547519 D64.9 Chronic pain 46341179 G8 9.29 dose drops from 600 to 300 to see if helps with her nausea [id number] DIANA GARCIA PA-C [facility] ([facility]) [address] [place] [id number] 5 09/02/2023 14:20:34 09/02/2023 17:34:26 Abdominal pain 46115486 R10.9 since pt is in the worst pain of her life I recommend she go to ER to get work up of her abd pain and get pain control for her chronic cervical stenosis with recent surgery that so far has not been helpful. 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 69876400 M48.02 [id number] MALIK BRUSH [facility] ([facility]) [address] [place] [id number] 5 09/05/2023 15:44:16 09/06/2023 13:27:43 Middle ear effusion 2878944966 H74.8X9 Discussed use of antibiotic the full 7 days. May take tylenol/mo rima for discomfort .Return if you develop worsening pain, drainage from the ear or concerns arise. Vertigo 726985715 R42 [id number] DIANA GARCIA PA-C [facility] ([facility]) [address] [place] [id number] 5 09/20/2023 11:54:13 09/20/2023 16:12:14 [id number] Williams Valerio DO [facility] ([facility]) [address] [place] [address] [phone] 5 09/20/2023 12:40:32 09/20/2023 13:56:13 Anxiety 12618033 F41.9 Acute sero us otitis media of bilateral ears 2397575841 835051 H65.03 [id number] DIANA GARCIA PA-C [facility] ([facility]) [address] [place], [place] [phone] 5 09/22/2023 11:55:06 09/23/2023 12:29:54 [id number] Srinivasan Gomes DO [facility] ([facility]) [address] [place], [place] [phone] 5 10/05/2023 08:21:33 10/06/2023 08:39:15 [id number] DIANA GARCIA PA-C [facility] ([facility]) [address] [place], [place] [phone] 5 10/06/2023 12:17:06 10/20/2023 08:37:19 Pain in right arm 642394864 M79.[address] HENRY, MRI , Anemia 260582686 D64.9 HEMOCCULT x3 due to persistant anemia. GI appt TOMORROW in [facility] Right uppe r quadrant pain 073265319 R10.11 [id number] CLAIRE KILLIAN APRN [facility] ([facility]) [address] [place], [place] [address] 10/09/2023 14:01:50 10/09/2023 14:43:26 Dysuria 21735661 R30.0 Acute urin albert tract infection 108954985 N39.0 [id number] DIANA GARCIA PA-C [facility] ([facility]) [address] [place] [address] 94716-483 5 10/13/2023 14:26:50 11/02/2023 17:06:17 Nausea and vomiting 21083787 R11.2 will see what GI finds on scopes Anemia 013686280 D64.9 INJECTIFER 750MG X 2, Acute urin albert tract infection 128976968 N39.0 MACROBID 100MG BID [id number] DIANA GARCIA PA-C [facility] ([facility]) [address] [place] [address] 02366-040 5 10/20/2023 11:55:15 10/20/2023 14:08:06 Low back pain 508428521 M54.50 d/c to home with current meds and out pt ordersF/U with me in office next week. Constipation 44627569 K5 9.00 Obstructio n of common bile duct 605154985 K83.1 thickening of CMB no CT and U/S. intermitan t emesis with white stools. [id number] DIANA GARCIA PA-C [facility] ([facility]) [address] [place] [address] 79584-911 5 10/26/2023 15:17:52 10/26/2023 17:51:16 Peripheral arterial occlusive disease 846990613 I73.9 Left common femoral artery occluded on CT scan with MADONNA .7 on the LeftHas an IVC filter in place.Toda y no evidence of critical limb ischemia. To ER if increased pain/numbn ess in leg, change in temperatur e or color Deep venou s thrombosis of lower extremity 252419635 I82.409 thrombus in R common femoral vein . IVC filter in place. Pt with recent GI bleed.Not able to anticoagul ate at this time. Iron defic iency anemia 90240490 D50.9 INJECTIFER 750MG X 2 doses 7 days apart.Hgb 8.3 at [facility] 7. recent EGD/colono scopy 7 with lavern Blanchard. Acute gastrointestinal hemorrhage 38329088 K92.2 cauterizat ion in small intestine on last EGD? per waiting on notes. Chronic pain 75897829 G8 9.29 Chronic neck pain 073116 5488 107 M54.2 Hospital i npatient stay within past 30 days 5534937575 106 Z76.89 meds reconciled . non changed today last ER records CT and labs reviewedSp juanita with Faith Morris MA and she is to fax us her records and we are to fax her last CT, U/S liver and labs. [id number] DIANA GARCIA PA-C [facility] ([facility]) [address] [place] [address] [phone] 5 11/03/2023 14:57:45 11/03/2023 17:25:44 Iron deficiency anemia 78208746 D50.9 INJECTIFER 750MG X 2 doses 7 days apart.Hgb 8.3 at [facility] 10.23.24. recent EGD/colono scopy 10.22.23 with lavern Blanchard. Dysuria 96787461 R30.0 Tinnitus o f vascular origin 631338295 H93.A9 Deep venou s thrombosis of lower extremity 084402647 I82.409 thrombus in R common femoral vein . IVC filter in place. Pt with recent GI bleed.Not able to anticoagul ate at this time. Peripheral arterial occlusive disease 671473919 I73.9 Left common femoral artery occluded on CT scan with MADONNA .7 on the LeftHas an IVC filter in place.Toda y no evidence of critical limb ischemia. To ER if increased pain/numbn ess in leg, change in temperatur e or color [id number] DIANA GARCIA PA-C [facility] ([facility]) [address] [place] [address] 64670-747 5 11/09/2023 13:55:02 12/14/2023 07:04:25 Acquired cystic dilatation of common bile duct 650308883 K83.5 Iron defic iency anemia 21031454 D50.9 Set up for injectafer on for first dose.Hgb 8.3 at [facility] 10.24.23. recent EGD/colono scopy 10.22.23 with lavern Blanchard. [id number] DIANA GARCIA PA-C [facility] ([facility]) [address] [place] [address] [phone] 5 11/10/2023 12:49:56 11/10/2023 17:31:37 [id number] DIANA GARCIA PA-C [facility] ([facility]) [address] [place] [address] 5 11/25/2023 14:58:08 12/14/2023 07:10:16 Deep venous thrombosis of lower extremity 303811579 I82.409 thrombus in R common femoral vein . IVC filter in place. Pt with recent GI bleed Hgb are rising.I will have her to a hemoccult card. If Hgb going up and hemoccult Neg I think if ok with vascular, it would be time to try anticoagul ation with close monitoring of cbcs Iron defic iency anemia 54408181 D50.9 Set up for injectafer Hgb 8.3 at [facility] 10.24.23. recent EGD/colono scopy 10.22.23 with lavern Blanchard. [id number] DIANA GARCIA PA-C [facility] ([facility]) [address] [place] [address] 72215-438 5 12/14/2023 15:13:11 12/14/2023 17:27:18 Anemia 510336320 D64.9 Had one iron infusion needs to schedule her next one. Deep venou s thrombosis 024132992 I82.409 started Eliquis 11.30.23 Restless l egs syndrome 57846958 G25.81 Hypothyroidism 22317067 E03.9 [id number] DIANA GARCIA PA-C [facility] ([facility]) [address] [place] [address] [phone] 5 01/11/2024 11:50:16 01/17/2024 09:34:21 Cervical radiculitis 00899817 M54.12 Pain of ri ght shoulder joint 3263909666 0945229 M25.511 Peripheral vascular disease 408752653 I73.9 Dr. Dawn moreno managing her arterial disease on the L leg, her chronic DVT on the R leg and her richelle filter.05.05 he still wants her on low dose Eliquis Iron defic iency anemia 18888766 D50.9 Her injectafer is helping Last HGb 10.3 at [facility] 01/06/24.re cent EGD/colono scopy 10.22.23 with lavern Blanchard. fixed upper GI bleed. Repeat eGD 2 months later was resolved. Hospital i npatient stay within past 30 days 7686933212 106 Z76.89 meds reconciled . her eliquis was restarted. [id number] Ulysses Rivera MD [facility] ([facility]) [address] [place] [address] [phone] 5 01/20/2024 16:13:53 01/20/2024 16:54:14 [id number] DIANA GARCIA PA-C [facility] ([facility]) [address] [place] [address] [phone] 5 02/08/2024 14:21:48 02/08/2024 15:38:37 Hematemesis 6718878 K92.0 Peripheral vascular disease 353625666 I73.9 Dr. Dawn moreno managing her arterial disease on the L leg, her chronic DVT on the R leg and her richelle filter.keron faith stented her L left. check right leg. no clots. left filter in place and wants her on the Eliquis. Pneumonia 963124091 J18. 9 Hospital i npatient stay within past 30 days 6276123164 106 Z76.89 meds reconciled . her eliquis was restarted. Iron defic iency anemia 52100140 D50.9 Her injectafer is helping Last HGb 10.3 at [facility] 01/06/24.re cent EGD/colono scopy 10.22.23 with lavern Blanchard. fixed upper GI bleed. Repeat eGD 2 months later was resolved. [id number] DIANA GARCIA PA-C [facility] ([facility]) [address] [place] [address] [phone] 5 03/14/2024 12:48:46 04/04/2024 12:28:10 Anemia 473476805 D64.9 Had one iron infusion needs to schedule her next one. Acquired d ilation of bile duct 4169830850 434119 K83.8 Peripheral vascular disease 603518639 I73.9 Dr. Dawn moreno managing her arterial disease on the L leg, her chronic DVT on the R leg and her richelle filter.keron faith stented her L left. check right leg. no clots. left filter in place and wants her on the Eliquis. 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 89747431 M48.02 [id number] DIANA GARCIA PA-C [facility] ([facility]) [address] [place] [address] 38267-587 5 04/11/2024 11:03:08 04/13/2024 12:31:09 Stasis dermatitis of lower limb due to chronic peripheral venous hypertension 275928227 I87.399 Drug-induc ed constipation 52699206 K59.03 Edema 657131669 R60.9 Idiopathic peripheral neuropathy 05865675 G60.9 Hypothyroidism 20842283 E03.9 [id number] DIANA GARCIA PA-C [facility] ([facility]) [address] [place] [address] 32141-733 5 04/19/2024 14:34:02 04/24/2024 09:23:08 Obstruction of common bile duct 223074099 K83.1 thickening of CMB no CT and U/S. intermitan t emesis with white stools. Rheumatoid arthritis [address] Crabtree [employer] form filled out during today's office visit Opioid dependence 678044 00 F11.20 post cervical surgery 06/05. Getting in to Dr. Hung. Anemia 762070744 D64.9 Had one iron infusion needs to schedule her next one. Hypothyroidism 06997036 E03.9 Anxiety disorder 8339791 06 F41.9 Chronic pain syndrome 37 6525607 G89.4 Oxcontin 7.[address] Lisa. Recently increased to 10mg q 4 hrs from recent surgery. (temporary rx for [place] given waiting for Oxy to come in then d/margaret 2.8.24 KM) Peripheral vascular disease 447483780 I73.9 Dr. Dawn moreno managing her arterial disease on the L leg, her chronic DVT on the R leg and her richelle filter.keron faith stented her L left. check right leg. no clots. left filter in place and wants her on the Eliquis. [id number] DIANA GARCIA PA-C [facility] ([facility]) [address] [place] [address] [phone] 5 05/24/2024 14:51:15 05/24/2024 16:00:13 Chronic neck pain 2971453323 107 M54.2 getting nerve stim with DR. Grider in Jun 06 Atopic dermatitis 324439 01 L20.9 Obstructio n of common bile duct 444131525 K83.1 thickening of CMB no CT and U/S. intermitan t emesis with white stools. Administra tion of pneumococcal vaccine 81198805 Z23 Edema 116272309 R60.9 Restless l egs syndrome 17898877 G25.81 I looked up meds that can cause formicatio n and her requip is listed which she is on very high doses of. She agrees to back down from tid to bid. Chronic insomnia 5259738 04 F51.04 [id number] DIANA GARCIA PA-C [facility] ([facility]) [address] [place] [address] 16514-076 5 06/13/2024 12:25:24 06/16/2024 11:56:31 Atopic dermatitis 78965808 L20.9 lower legs. likely from venous stasus Restless l egs syndrome 16833283 G25.81 I looked up meds that can cause formicatio n and her requip is listed which she is on very high doses of. She agrees to back down from 5 mg tid to bid.06/13/24 drop her from 5 mg bid to 3 mg po bid. [id number] DIANA GARCIA PA-C [facility] ([facility]) [address] [place] [address] [phone] 5 07/06/2024 14:47:05 07/10/2024 15:08:00 Peripheral venous insufficiency 86025476 I87.[address] Tate Chronic neck pain 320421 7712 107 M54.2 getting nerve stim with DR. Grider Chest pain 06001961 R07. 9 Hx PAD. will refer to cardiology for consult and testing to see of she has CAD and stable angina [id number] MALIK BRUSH [facility] ([facility]) [address] [place] [address] 86922-635 5 07/24/2024 11:36:22 07/24/2024 14:50:48 Wheezing 89268330 R06.2 Discussed use of prescribed medication s. VSS. If you develop new/worsen ing s/s then return for re-evaluat ion. [id number] DIANA GARCIA PA-C [facility] ([facility]) [address] [place] [address] 01913-551 5 08/23/2024 14:47:46 08/23/2024 15:42:54 Acute thoracic back pain 247653367 M54.6 33439779 30 min spent with pt Chronic neck pain 283425 1983 107 M54.2 G89.29 457446 getting nerve stim with DR. Madison Grider tomorrow 08/24/24 Gastrointe stinal hemorrhage 58906827 K25.4 66468411 seeing GI next week for scopy and ERCP Dr. Chava puckett. [id number] DIANA GARCIA PA-C [facility] ([facility]) [address] [place] [address] 15196-942 5 11/02/2024 14:26:10 11/02/2024 16:01:55 Cataplexy 74369513 G47.411 56416 ok to continue Effexor. Adverse re action to drug 38879979 T50.905D 69156968 she may be trying to stop her chronic use of baclofen to fast. will taper more slowly with dropping a dose a week.I would like to slowly get her off all her [employer] affecting meds and see if causing her reactions. Will slowly taper her off her gabapentin as wellI suspect pt has histrionic personalit y disorder. REviewed her hospital records and they did a very good job of ruling out any physcial cause of her jerking.It would be ideal to get psych involved to help sort out her symptoms. Post-disch arge follow-up 098722647 Z09 926714 Anemia due to blood loss 444736750 D50.0 336079 recent capsule endoscopy. Dr. Larsen is working up [id number] DIANA GARCIA PA-C [facility] ([facility]) [address] [place] [address] 11924-764 5 12/01/2024 08:51:12 12/01/2024 09:46:50 Gastroesophageal reflux disease 915169405 K21.9 20123614 Primary insomnia 5425503 F51.01 64373 Peptic ulcer 23689654 K2 7.9 Chronic pain 68646669 G8 9.29 Lymphedema 518783559 I89 .0 04148 Chronic neck pain 554708 6713 107 M54.2 G89.29 1053387 getting nerve stim with DR. Madison Grider tomorrow 08/24/24 Vascular insufficiency 54789328 I87.[id number] Tate manages looking to do some venous repair.Enc ouraged compressio n stockings and elevation until she can get some wraps. [id number] DIANA GARCIA PA-C [facility] ([facility]) [address] [place] [address] [phone] 5 01/11/2025 14:06:00 01/12/2025 08:44:46 Multi vessel coronary artery disease 729777052 I25.10 2411592 recent stents x 2 back to back. 01/04 need one year of dual plt asa and plavix therapy for 1 yr. Post-disch arge follow-up 120599508 Z09 900394 Exposure t o SARS-CoV-2 533121606 Z20.822 7175644093 pt left without being tested. Upper gastrointestinal bleeding 22513173 K92.2 398099 scope 03/[address] Ruiz. Scope 01/05/25 at [facility] small area of bleeding. needs plavix and ASA due to stent on 12/27/24 [id number] DIANA GARCIA PA-C [facility] ([facility]) [address] [place] [address] [phone] 5 02/13/2025 14:26:45 02/13/2025 15:27:07 Edema 257688039 R60.9 Upper gastrointestinal bleeding 74034983 K92.2 915874 scope 03/[address] Ruiz. Scope 01/05/25 at [facility] small area of bleeding. needs plavix and ASA due to stent on 12/27/24 Stented co ronary artery 930492883 I25.10 Z95.5 42283914 Health Concerns Section Related Observation LastModified by Organization Detai ls LastModified Time None Recorded Concern Status LastModified by Organization Details LastModified Time None Recorded Advance Directives Directive None Recorded Payers Insurance Date Sequence Insurance Name Policy Number Policy Rivera Covered Member ID Rivera Member ID Guarantor Name 02/10/2025 [place] - [facility] (MEDICARE) Tosha Perry [id number] 1 [id number] Tosha Perry 02/10/2025 2 [employer] (MEDICARE SUPPLEMENT) Tosha Perry [id number] Tosha Perry 02/10/2025 1 [place] Tosha Perry [id number] Tosha Perry Notes Date Note Type Note Provider Name and Address Organization Details Recorded Time 5 text/html CoughReported by PatientHPIFor severity, patient reportsworseningandpain with [...] reportswalking,sweeping,mop ping,bathing,dressing, andclimbing stairs. HOSPITAL FOLLOW UP [facility], HAS AN APPT FOR COLONOSCOPY ON 09-01-24 [place], WORE BRACE FROM DR HENRY AND FELT SOMETHIING POP IN NECK NOW NECK HURTS.JUST FINISHED ANTIBIOTICS FROM THEM DOXY? seeing vascular 08/30seeing GI to check on clip in [place] 09/01 and be scoped again. lavern GARCIA PA-C [address] [place] [address], [phone], [facility], Job 08/23/2024 15:38:13 5 text/html ER waka f/u for jerking and passing outshe started the jerking after starting venlafaxine. she had been in [facility] for 13 days just prior to her ER visitthey did a very thruough workup including head CT and neck CT. neurosurg did not think her neck was causing any of her jerking sympoms She even had EEG and was negative for any seizure activityShe was released with dx of Cataplexy and seems to fitThey tried dropping back her pain meds but jerking continuedShe agreed to stop the remeron and back to bid muscle relaxorShe states what really helps her is taking a Xanax. stops all her jerking. Today with me she is writhing and jerking everywhere. states she was not doing this at home but getting worse when she got to office and even worse when she started taking to me. Dr. Michele did a capusule endoscopy and Dr. Michele saw a espophagous Pt DIANA GARCIA PA-C [address] [place], [address], [facility], [facility]. 11/07/2024 21:53:33 5 text/html EdemaReported by PatientHPIFor context, patient reportsprior history of edema,prior history of deep vein thrombosis,taking new medications, andrecent travel. For associated symptoms, patient reportsshortness of breath,weight gain 8 lbs, andcough. For location, patient reportsbleandfeet. For quality, patient reportslegs swell equallyandimproves overnight. For severity, patient reportsmoderate. For duration, patient reportsconstant. For onset/timing, patient reportsstarted 2 weeks ago. For modifying factors, patient reportsprescription medication. I have been taking 80 mg of lasix and still swelling. vascular hx legs. Hx DVT with richelle filter 2.24 due to chronic GI bleedArterial stent in L leg 01/2024 Dr. Rola Puckett. appt with personal injury litigation paralegal in [place] 9.5, Seeing vein specialist as wellDr. Pelayo GI appt 9.25 for GI bleed f/u [facility] hospital stay: Needed a blood transfusion her in [place] before she went to [place]. Also had UTI and pneumonia at [facility] Was in hospital in [place] and had an upper GI bleed. Got a scope Hgb was 11. Has not been taking her EffexorBack down on her baclofen to BID and says she just taking her OXy BID as well and gabapentin BID. Much less shakingSays her shaking went almost all the way away after getting her blood transfusion DIANA GARCIA PA-C [address] [place], [address], [facility], Do. 12/01/2024 09:40:36 5 text/html jr chest pain hpiReported by PatientHPIFor quality, patient reportspressure,squeezing,t ightness,heaviness, andsharp. For severity, patient reportsvery limitingbut reportsmoderate. For context, patient reportsat restandwakes from sleep. For associated symptoms, patient reportschest discomfort,shortness of breath,exertional dyspnea,decrease in exercise capacity,fatigue, andweakness. For location, patient reportsupper substernalandsubsternal on the left. For onset/timing, patient reportsstarted 3weeks ago. For alleviating factors, patient reportsnitroglycerin. Upper Respiratory SymptomsReported by PatientUpper Respiratory SymptomsFor quality, patient reportsproductive coughandcongested. For context, patient reportssick contactandcopdbut reportsno foreign travelandnon-smoker. For location, patient reportschest. For severity, patient reportsmoderate. For duration, patient reportssymptoms lasting over 2 weeks. For onset/timing, patient reportsgradual. hospital follow up 12-27-24, she required 2 stents. readmitted day after discharge for another stent. Has been back to ER several times with cp and sOB and workups have been normalRescoped 01/05/25 with small area of bleeding.she has remained on plavix and ASA. Hgb stable at 9.4 has no taste, father in law tested positive for covid yesterday had a chest x ray at cardiac lab yesterday and they saw no pneumonia DIANA GARCIA PA-C [address] [place], [address], [facility], Do. 01/11/2025 18:13:05 5 text/html EdemaReported by PatientHPIFor quality, patient reportspainfulbut reportslegs swell equallyandimproves overnight. For associated symptoms, patient reportsshortness of breath,shortness of breath with exertion, andchest pain. For location, patient reportsrle,ble, andarms. For severity, patient reportsmoderate. For duration, patient reportsconstant. For onset/timing, patient reportsabrupt onset. For modifying factors, patient reportsprescription medication. has seen blood in her vomit and her stools have been white again. She has appt for GI in [place] but has a call into her GI doc. 10.28 DIANA GARCIA PA-C [address] [place] [address], [phone], [facility], Job 02/13/2025 15:25:18 OBGyn Episode No OBEpisode recorded.
--- OUTSIDE RECORDS SUMMARY | 2025-02-14 06:37 | XMS_ITS | Patient Health Record ---
Author Organization [facility] Address [address] [facility] [address] [place] [address] Care Team Providers Care Meat Seafood Associate Name Role Phone Desiree Gaming MD Primary Care Provider Unavailab Srinivasan Wilcox Unavailable [phone] Reason For Referral No Information Medications Medication [...] 50 MG Tablet Oral 03/23/2017 Active Creon 66715 UNIT Capsule Delayed Release Particles Oral 04/07/2017 Active Creon 89570 UNIT Capsule Delayed Release Particles Oral 02/18/2017 [...] Start Date Coverage End Date Medicare [place] MC37 [address] [place] [address] [id number] BARRY VAN Self - patient is the insured Medical (General) History Surgical History Surgery Date(Month/Year) Hysterectomy ,Status : Resolved Breast Surgery ,Status : Resolved Gastric Surgery ,Status : Resolved Eye Surgery ,Status : Resolved Cholecystectomy ,Status : Resolved Cataract Surgery ,Status : Resolved Appendectomy ,Status : Resolved Foot Surgery ,Status : Resolved
--- OUTSIDE RECORDS SUMMARY | 2025-02-14 06:37 | XMS_ITS | Continuity of Care Document ---
Author Organization [facility], [facility] ([facility]) Address [address] [place] [address] Care Team Providers Care Supervisor Claims Name Role Phone KIERAN VO Primary Care Provider Unavailabl e Assessment No assessment recorded. Plan of Treatment Reminders Order Date Submit Date Provider Last Modified By Organization Details Last Modified Time Details Appointments LAB 2024 01:30P M LAB Not available Not available Not available OFFICE VISIT 20 2024 01:20P M KIERAN VO PA-C Not available Not available Not available Lab CBC 2024 025 [email or web address] [facility], [address], [facility] [address], [place], [address], 02/13/2025 15:17:46 BMP, serum or plasma 2024 025 [email or web address] [facility], [address], [facility] [address], [place], [address], 02/13/2025 15:16:42 Referral None recorded. Procedures None recorded. Surgeries None recorded. Imaging None recorded. Medication Orders atorvasta tin 40 mg tablet 2024 025 [facility]armacy #[id number], [address], [place], [address], 02/13/2025 15:20:22 ranolazin e ER 500 mg tablet,ex tended release,1 2 hr 2024 025 [facility]/Pharmacy #[id number], [address], [address], [place], [address], 02/13/2025 15:20:22 furosemid e 40 mg tablet 2024 025 [facility]/Pharmacy #[id number], [address], [address], [place], [address], 02/13/2025 15:16:44 potassium chloride 40 mEq/15 mL oral liquid 2024 025 [facility]/Pharmacy #[id number], [address], [address], [place], [address], 02/13/2025 15:16:44 Patient TargetsNo targets recorded. Patient InstructionsNo instructions recorded. Reason for Referral None Reported. Problems Name Problem SNOMED Code Status Onset Date Resolution Date Notes Provider Name and Address Organization Details Recorded Time Hand pain 05423895 Completed 202205/14/2024 NICOLE gustafson [facility], LHarjeetLHarjeetCHarjeet 5 07:55:21 Hand pain 95474084 Completed 202205/14/2024 NICOLE gustafson [facility], L.L.CHarjeet 5 07:55:15 Low back pain 371286531 Completed 202305/14/2024 NICOLE gustafson [facility], L.LHarjeetCHarjeet 5 18:20:21 Deep venous thrombosi s of lower extremity 540782424 Completed 202305/14/[address] [facility] non occlusi ve. IVC placed due to no able to take blood thinner sHarjeet gustafson [facility], LHarjeetLHarjeetCHarjeet 5 07:54:08 Chronic pain 18453759 Active 2023 NICOLE gustafson [facility] 5 07:54:43 Hospital inpatient stay within past 30 days 45546073089 06 Completed 202305/14/2024 NICOLE CRANE null, [facility] 5 07:55:38 History of cervical spine fusion 21524948450 01 Completed 202305/14/2024 NICOLE CRANE null, [facility] 5 07:55:29 Hypothyro idism 00236315 Active 2023 NICOLE CRANE null, [facility] 5 07:55:43 Depressiv e disorder 88600404 [facility] 20[facility] 07:54:53 Gastroeso phageal reflux disease without esophagit is 389157474 Active 2023 NICOLE CRANE null, [facility] 5 07:55:09 Anxiety 29300275 Active 2023 NICOLE ROSA MARIA null, [facility] 5 07:54:40 Rib pain 622857013 Completed 202305/14/2024 NICOLE ROSA MARIA null, [facility] 5 07:57:21 Nausea 475752132 Completed 202305/14/2024 NICOLE ROSA MARIA null, [facility] 5 07:55:56 Peptic ulcer 27556536 Completed 202305/14/2024 NICOLE CRANE null, [facility] 5 07:57:13 Pain in bilateral legs 38314063150 870364 Completed 202305/14/2024 NICOLE ROSA MARIA null, [facility] 5 07:56:52 Pain in left lower limb 368982847 Completed 202305/14/2024 NICOLE HADENISE null, [facility] 5 07:57:01 Acquired dilation of bile duct 56082954140 74918 Completed 202305/14/2024 NICLOE HADENISE null, [facility] 5 07:54:30 Deep venous thrombosi s 066376451 Completed 202305/14/2024 [facility] 5 07:54:50 Anemia 502221880 Active 2023 NICOLE HADENISE null, [facility] 5 07:54:37 Pain in right arm 392223193 Completed 202305/14/2024 NICOLE HADENISE null, [facility] 5 07:57:07 Right upper quadrant pain 171381305 Completed 202305/14/2024 NICOLE HALESLYFEDD null, [facility] 5 07:57:36 Nausea and vomiting 26047272 Completed 202305/14/2024 NICOLE HADENISE null, [facility] 5 07:56:02 Edema 862771851 Completed 202305/14/2024 NICOLE HALESLYFEDD null, [facility] 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 Procedures Surgical History Date Name Laterality Status Provider Name and Address Organization Details Recorded Time 2024 fluoroscopic angiography of coronary artery with contrast and insertion of stent completed NICOLE CRANE [facility], LHarjeetL.CHarjeet 5 18:02:58 2024 plain X-ray of chest completed PAULETTE JASON [facility], Job 5 00:10:[address] of abdomen and pelvis completed PAULETTE JASON [facility], RodgerLHarjeetCHarjeet 5 00:12:33 2023 insertion of arterial stent completed JER VO PA-C [address] [place], [address], [facility], RodgerL.CHarjeet 4 15:12:39 2023 colonoscopy completed KIERAN VO PA-C [address] [place], [address], [facility] 4 17:29:05 2023 esophagogastroduodenoscopy completed KIERAN VO PA-C [address] [place], [address], [facility] 4 17:08:01 2023 ultrasonography of liver completed NICOLE CRANE [facility] 4 16:43:05 2023 primary posterior decompression cervical cord and fusion completed KIERAN VO PA-C [address] [place], [address], [facility] 4 13:58:12 2023 insertion of inferior vena caval filter completed KIERAN VO PA-C [address] [place], [address], [facility] 4 13:58:28 2022 primary fusion of cervical spine completed KIERAN VO PA-C [address] [place], [address], [facility] 3 12:50:26 Imaging Results None recorded. Procedure Notes None recorded. Medical Equipment None Reported. Allergies Allergen ID Allergen Name Allergen Category Reaction Reaction Severity Criticality Documentation Date Start Date Code Code System Note Provider Name and Address Organization Details Recorded Time 12607 Benadryl medicatio n Not available Not available Not available 03/12/2023 43998 7 RxNorm NICOLE gustafsno [facility] 3 12:01:01 45490 amitripty line medicatio n Not available Not available Not available 03/12/2023 704 RxNorm NICOLE gustafson [facility] 3 12:01:37 33193 tizanidin e medicatio n Not available Not available Not available 03/12/2023 95803 RxNorm NICOLE gustafson, [facility] 3 12:08:21 41174 morphine medicatio n confusion Not available [facility] 09/02/2023 7052 RxNorm KIERAN VO PA-C [address] [place], [address], [facility] 4 15:15:03 20738 venlafaxi ne medicatio n itching Not available Not available 02/13/2025 50893 RxNorm NICOLE gustafson, [facility] 5 14:50:24 Medications Name Sig Start Date [...] Updated DateTime 5 163.83 cm 25.2 kg/m2 38886.2 6 g 96 % 96 % 78 /min 20 /min 98 [degF] 130/80 mm[Hg] NICOLE CRANE [facility] 5 14:41:35 Social History Question Answer Notes LastModified by [employer] Details LastModified Time Tobacco Smoking Status Former Sm[facility] 09/05/2023 15:56:32 Which Illicit Or Recreational Drugs Have You Used? Nyaalexa [email or web address] Information not available 11/02/2024 What Was The Date Of Your Most Recent Tobacco Screening? 11/02/2024 [email or web address] Information not available 11/02/2024 At What Age Did You Start Smoking Tobacco? 49 For 3 Weeks Only [email or web address] Information not available 11/02/2024 Sex: Unknown Functional Status Question Answer Note LastModified by [employer] ion Details LastModified Time Do you use any illicit or recreational drugs? Yes [email or web address] Information not available 11/02/2024 What is your level of alcohol consumption? None [email or web address] Information not available 11/02/2024 Mental Status None recorded. Family History Nothing Reported. Medical History No medical history recorded. Gynecological HistoryNo gynecological history recorded. Obstetrics History GPAL:G 0 P 0 0 0 0 Immunizations Vaccine Type Date Status Note Provider Nam e and Address Organization Details Recorded Time COVID-19, mRNA, LNP-S, PF, errol-sucrose, 30 mcg/0.3 mL 4 completed Gracie gustafson [facility] 11/12/2023 15:11:33 Influenza, split virus, trivalent, PF 4 completed Not Available [employer] 02/13/2025 14:28:04 Pneumococcal conjugate PCV20, polysaccharide HDM832 conjugate, adjuvant, PF 5 completed NICOLE gustafson [facility] 05/24/2024 16:17:51 Past Encounters Encounter ID Performer Location Encounter Start Date Encounter Closed Date Diagnosis/Indication Diagnosis SNOMED-CT Code Diagnosis ICD10 Code Diagnosis IMO Codes Diagnosis Note [id number] KIERAN VO PA-C [facility] ([facility]) [address] [place] [address] 02/13/2025 14:26:45 02/13/2025 15:27:07 Edema 901228552 R60.9 Upper gastrointestinal bleeding 35764898 K92.2 990023 scope 03/[address] Ruiz. Scope 01/05/[address] [facility] small area of bleeding. needs plavix and ASA due to stent on 12/27/24 Stented co ronary artery 949022174 I25.10 Z95.5 46978030 Health Concerns Section Related Observation LastModified by Organization Detai ls LastModified Time None Recorded Concern Status LastModified by Organization Details LastModified Time None Recorded Payers Encounter Date Sequence Insurance Name Policy Number Policy Rivera Covered Member ID Rivera Member ID Guarantor Name 02/13/2025 1 [place]ICARE [place]: [employer] Tosha Perry [id number] Tosha Perry 02/13/2025 2 [employer] (MEDICARE SUPPLEMENT) Tosha Perry [id number] Tosha Perry Notes Date Note Type Note Provider Name and Address Organization Details Recorded Time 5 text/html EdemaReported by PatientHPIFor quality, patient [...] a call into her GI doc. 10.28 KIERAN VO PA-C [address] [place] [address], [phone], [facility] [place] [facility], Job 02/13/2025 15:25:18 OBGyn Episode No OBEpisode recorded.
--- OUTSIDE RECORDS SUMMARY | 2025-02-14 06:37 | XMS_ITS | Patient Health Record ---
Author Organization El Gonsalves D.O., [facility] Address [address] [place] [address] Care Team Providers Care Spice Mixer Name Role Phone VeeMadeline myersne Primary Care Provider El Brewer [phone] Allergies Allergen (clinical drug ingredient) Drug/Non Drug [...] Status Risk Notes Problem Shortness of breath (028862408) Shortness of breath (R06.02) Active confirmed Problem Anxiety (26644678) Anxiety (F41.9) Active confirmed Problem Abnormal PFT: MV V reduced disproportionate to FEV1 (R94.2) Active confirmed Problem Peripheral edema (79870324) Peripheral edema (R60.9) Active confirmed Problem Restless legs syndrome (15724469) Restless leg syndrome (G25.81) Active confirmed Problem Pulmonary hypertension (41824873) Pulmonary hypertension (I27.20) Active confirmed Problem Benign neoplasm of cerebral meninges (86949993) Meningioma (D32.9) Active confirmed Problem Hypokalemia (99056670) 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
--- NOTE | 2025-02-14 06:40 | XRR_ITS ---
PROCEDURE INFORMATION: Exam: XR Chest Exam date and time: 02/14/2025 6:48 AM Age: 69 years old Clinical indication: Shortness of breath; Prior surgery; Surgery date: 6+ months; Surgery type: Cad with stents; Additional info: Copd, cad with stents, recurrent syncope, chest pain, SOB TECHNIQUE: Imaging protocol: Radiologic exam of the chest. Views: 1 view. COMPARISON: CR XR chest 2V* [id number] 01/10/2025 4:00 PM FINDINGS: Lungs: Mild interstitial prominence. Pleural spaces: Unremarkable. No pleural effusion. No pneumothorax. Heart/Mediastinum: See Vasculature finding. Vasculature: Mild cardiomegaly and uncoiling of the thoracic aorta. Bones/joints: Prior anterior and posterior cervical fusion. Soft tissues: Likely diaphragmatic hernia. XR/XR chest 1V portable [id number] IMPRESSION: No acute cardiopulmonary disease.
--- NOTE | 2025-02-14 06:45 | XRR_ITS ---
PROCEDURE INFORMATION: Exam: XR Bilateral Hips Exam date and time: 02/14/2025 6:50 AM Age: 69 years old Clinical indication: Injury or trauma; Fall; Blunt trauma (contusions or hematomas); Bilateral; Hip and pelvic region; Additional info: B/l hip pain S/P syncopal fall TECHNIQUE: Imaging protocol: Radiologic exam of the bilateral hips. Views: 2 views of hips with pelvis when performed. COMPARISON: CT abdomen pelvis w con* [id number] 12/24/2024 7:35 AM FINDINGS: Bones/joints: Left femoral stent. No acute fracture or dislocation. [id number]-[id number] bilateral hip osteoarthritis with joint space narrowing and subarticular sclerosis. Soft tissues: Unremarkable. Vasculature: Scattered vascular calcifications. Calcified pelvic phleboliths. XR/XR hip BI 3-4V wo/w pel [id number] IMPRESSION: No acute osseous findings.
--- NOTE | 2025-02-14 06:48 | ECG_ITS ---
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 Measurements Intervals [place] Rate: 58 P: -4 IN: 114 QRS: 12 QRSD: 92 T: 21 QT: 423 QTc: 417 Interpretive Statements SINUS BRADYCARDIA WITH SHORT IN INTERVAL Compared to ECG 01/05/2025 14:08:01 Short IN interval now present Sinus rhythm no longer present Electronically Signed On 02-14-2025 23:47:26 RESIDENT CARE ASSOCIATE by Sherine Greene M.D. [email or web address]
--- NOTE | 2025-02-14 07:02 | PC.NURSE ---
THIS NURSE ASSUMED CARE @ 2952.
[2025-02-14 07:50] LABS: Hematocrit 28.9 % (36-47); Hemoglobin 9.30 g/dL (11.27-16.99); Mean Corpuscular HGB Conc 32.2 g/dL (30-55); Mean Corpuscular Hemoglobin 27.4 pg (27-33); Mean Corpuscular Volume 85.3 fl (85-98); Nucleated Red Blood Cells % 0 %; Platelet Count 249 10^3/cmm (157-399); Red Blood Count 3.39 10^6/uL (3.85-5.65); White Blood Count 5.25 10^3/uL (3.29-11.43)
[2025-02-14] MEDS: ondansetron 2 mg/ML SDV 2 mL 4 MG IVP (07:57)
--- NOTE | 2025-02-14 07:59 | W.ED.GENADLT ---
HPI - General Adult General: Chief complaint: General Medical Stated complaint: sob Time Seen by Provider: 02/14/25 06:35 History of Present Illness: 69-year-old female past medical history significant for DVT status post IVC filter placement, GI bleed, iron deficiency anemia, diastolic heart failure, status post catheterization in December 24 and additional catheterization on the with a total of 4 stents placed, patient subsequently readmitted to the hospital with noncardiac chest pain on the and discharged on 07 January, presenting to the emergency department now with a 1 to 2-day history of multiple symptoms, reports a fall this morning preceded by dizziness with an episode of passing out, reports multiple episodes of near syncope over the last few days, also reports headache, chest pain, bilateral hip pain which started after the fall, right arm pain which she has had persistently since the last catheterization in december, as well as several episodes vomit, she reports being on Plavix, she is not on true anticoagulation due to the history of GI bleed, she denies fever. Related Data Home Medications ?Medication ?Instructions ?Recorded ?Confirmed fluticasone propionate 50 1 spray intranasal BID PRN 09/27/23 02/14/25 mcg/actuation nasal allergies spray,suspension gabapentin 300 mg capsule 300 mg PO TID 09/27/23 02/14/25 oxycodone 10 mg tablet 10 mg PO Q8H PRN Pain 12/29/23 02/14/25 ramelteon 8 mg tablet 8 mg PO BEDTIME 12/24/24 02/14/25 alprazolam 0.25 mg tablet (Xanax) 0.5 mg PO DAILY PRN anxiety 12/27/24 02/14/25 promethazine 25 mg tablet 25 mg PO Q6H PRN Nausea 01/03/25 02/14/25 lidocaine 5 % topical patch 1 patch topical [id number] PRN Pain 01/05/25 02/14/25 aspirin 81 mg tablet,delayed 81 mg PO DAILY 02/14/25 02/14/25 release atorvastatin 40 mg tablet 40 mg PO BEDTIME 02/14/25 02/14/25 folic acid 1 mg tablet 1 mg PO DAILY 02/14/25 02/14/25 furosemide 20 mg tablet 40 mg PO QAM 02/14/25 02/14/25 nitroglycerin 0.4 mg sublingual See Rx Instructions .Route .COMPLEX 02/14/25 02/14/25 tablet Previous Rx's ?Medication ?Instructions ?Recorded Bone growth stimulator #1 ea 01/22/23 Bone growth stimulator #1 ea 02/05/23 tens unit for cervical #1 ea 12/16/23 insulin syringes (disposable) 1 mL #25 ea 05/30/24 ropinirole 5 mg tablet 5 mg PO BID #270 tabs 10/25/24 baclofen 10 mg tablet 5 mg (1/2 x 10 mg) PO Q12H PRN 11/07/24 Muscle Spasm #30 tabs clopidogrel 75 mg tablet 75 mg PO DAILY 30 days #30 tabs 12/26/24 pantoprazole 40 mg tablet,delayed 40 mg PO Q12H 30 days #60 tabs 12/26/24 release (Protonix) potassium chloride 20 mEq 20 meq PO DAILY #30 tabs 12/26/24 tablet,extended release ranolazine 500 mg tablet,extended 500 mg PO BID #180 tabs 01/01/25 release,12 hr albuterol sulfate 90 mcg/actuation 2 inh inhalation Q4H PRN shortness 01/03/25 aerosol inhaler of breath or wheezing #18 grams sucralfate 1 gram tablet 1 g PO AC #90 tabs 01/07/25 prednisone 20 mg tablet See Rx Instructions PO DAILY #30 01/18/25 tabs adalimumab 40 mg/0.4 mL 40 mg (0.4 mL) SUBCUT Q14D #2 ea 02/07/25 subcutaneous syringe kit (Humira(CF)) levothyroxine 125 mcg tablet 125 mcg PO DAILY #30 tabs 02/13/25 oxycodone-acetaminophen 5 mg-325 1 tab PO Q6H PRN pain 3 days #12 02/14/25 mg tablet (Percocet) tabs Allergies Allergy/AdvReac Type Severity Reaction Status Date / Time venlafaxine (From Effexor) Allergy Severe ADR-Agitate Verified 01/18/25 12:50 d ibuprofen Allergy Unknown ADR-Anxiety Verified 01/18/25 12:50 tizanidine Allergy Unknown Unknown Verified 01/18/25 12:50 acetaminophen Allergy ADR-Anxiety Verified 01/18/25 12:50 amitriptyline Allergy ADR-Agitate Verified 01/18/25 12:50 d diphenhydramine (From Allergy ADR-Agitate Verified 01/18/25 12:50 Benadryl) d morphine Allergy ADR-Halluci Verified 01/18/25 12:50 nating prochlorperazine (From Allergy Unknown Verified 01/18/25 12:50 Compazine) leflunomide AdvReac Intermediate GI adverse Verified 01/18/25 12:50 reactions sulfasalazine AdvReac Intermediate ADR-Nausea Verified 01/18/25 12:50 and acid reflux PFSH ED PFSH: Medical History Rheumatoid arthritis flare Coronary artery disease Pneumonia DVT (deep venous thrombosis) Acute GI bleeding History of deep vein thrombosis GERD (gastroesophageal reflux disease) Pre-operative clearance Acute anemia Hematoma complicating a procedure Cervical adenopathy GI bleed Osteoarthritis, shoulder Cervical spondylosis with myelopathy GERD with esophagitis Allergic rhinitis due to allergen RLS (restless legs syndrome) Substance or medication-induced sleep disorder, insomnia type Anxiety and depression High risk medication use Seropositive rheumatoid arthritis of multiple sites Extrapyramidal and movement disorder CKD (chronic kidney disease) stage 3, GFR 30-59 ml/min Lung nodule, solitary Prediabetes Hyperlipidemia Iron deficiency anemia Hypothyroidism Surgical History S/P insertion of IVC (inferior vena caval) filter Status post cervical spinal fusion History of cholecystectomy History of appendectomy History of delivery History of hysterectomy with bilateral oophorectomy History of ankle surgery left Previous back surgery Social History Smoking and tobacco/nicotine status: former use of tobacco/nicotine Quit status (tobacco/nicotine): has quit using Year quit tobacco: 2009 Former quit date comment: Smoked for 9 months Alcohol intake: current Alcohol intake frequency: holidays/special occasions only Substance/Drug Use: never Additional social history: Patient tells me that after her accident she is chronically on oxycodone 10 mg 3 times daily. She is recently full code on 12/24/2024 admission Physical Exam Narrative: EXAM NARRATIVE: Gen: A&Ox4, no acute distress, nontoxic appearing HEENT: Normocephalic, atraumatic, no scleral icterus, external ears normal, moist mucous membranes Neck: Supple, full range of motion, no observable masses Lungs: No Respiratory distress, Lungs clear to auscultation bilaterally no rales, rhonchi, wheezing CV: Regular rate and rhythm, no murmur, no pitting edema to lower extremities bilaterally Abdomen: Soft, nondistended, mildly tender to palpation in the epigastrium, no diffuse abdominal tenderness rigidity or guarding MSK: No joint swelling, FROM all 4 extremities, does have some pain with passive range of motion of the bilateral hips but no obvious swelling, no tenderness palpation of the bilateral hip regions, no limb length discrepancies or external rotation there is tenderness to the bilateral paralumbar and midline lumbar region Skin: No rashes, petechiae, lesions. Normal color per patient. Neuro: Alert and oriented, no slurred speech, sensation and strength grossly intact all 4 extremities, no slurred speech, no facial asymmetry, no gaze deviation, visual [place] intact, pupils equal and reactive to light bilaterally Psych: Appropriate for situation. Course Reevaluation(s): Reevaluation #1: Patient reassessed, still complaining of low back pain and also reporting that she has been having difficulty urinating since the fall yesterday, given this finding will obtain bladder scan, rule out acute urinary retention as a possible contributing factor to the pain, and obtain CT lumbar spine to assess for acute spinal fracture patient assisted to commode, unable to produce urine, bladder scan showing 900cc in bladder, kim to be inserted Time: 11:35 Reevaluation #2: Patient reassessed at this time, CT lumbar spine negative, patient with improving pain after Kim placement, no evidence of infection on the urinalysis, will be discharged with Kim in place to be removed by PCP for trial of void, also will refer to outpatient urology for further evaluation. Time: 14:05 Vital Signs: Vital signs: Vital Signs Temperature 98.8 F 02/14/25 07:40 Pulse Rate 64 02/14/25 14:08 Respiratory Rate 16 02/14/25 14:08 Blood Pressure 126/52 02/14/25 14:08 Pulse Oximetry 91 02/14/25 14:08 Oxygen Delivery Me thod Room Air 02/14/25 14:08 MDM - General Adult Medical Decision Making 69-year-old female with an extensive medical history consisting of GI bleed, DVT with an IVC filter, CAD/diastolic CHF with 4 stents placed in mid December secondary to chest pain and syncope, presenting the emergency department with recurrent near syncope and an episode of syncope today with a fall, subsequently now with new onset hip pain, also complaining of chest/epigastric pain and headache over the last couple of days nonspecifically. No focal neurologic deficits on exam, physical exam of the hips shows relatively low concern for fracture given preserved range of motion and no discrepancies to limb length, will obtain EKG, cardiac enzymes, labs, IV Protonix, CT brain r/o SAH., reassess for disposition Lab Data Labs significant for chronic anemia 9.3 at baseline, creatinine 1.8 slightly increased from prior baseline 1.4, normal electrolytes, normal lactate, venous blood gas without hypercapnia or acidosis, INR normal, LFTs normal, troponin minimally elevated 17 stable on repeat 18, proBNP indeterminate to 22, urinalysis without evidence of infection 02/14/25 07:36 02/14/25 07:36 Radiology Impressions Chest X-Ray 02/14/25 06:40 IMPRESSION: No acute cardiopulmonary disease. Hip/Pelvis X-Ray 02/14/25 06:45 IMPRESSION: No acute osseous findings. Head CT 02/14/25 08:27 IMPRESSION: 1. No evidence of intracranial hemorrhage or mass effect. 2. No acute intracranial findings. Lumbar Spine CT 02/14/25 11:34 IMPRESSION: 1. No acute fractures. Prior kyphoplasty changes L4 and L5 2. Stable moderate central canal stenosis L3-L4 and L4-L5 Laboratory Results WBC 5.25 10^3/uL (3.29-11.43) 02/14/25 07:36 RBC 3.39 10^6/uL (3.85-5.65) L 02/14/25 07:36 Hgb 9.30 g/dL (11.27-16.99) L 02/14/25 07:36 Hct 28.9 % (36-47) L 02/14/25 07:36 MCV 85.3 fl (85-98) 02/14/25 07:36 MCH 27.4 pg (27-33) 02/14/25 07:36 MCHC 32.2 g/dL (30-55) 02/14/25 07:36 RDW 14.6 % (12.1-15.1) 02/14/25 07:36 Plt Count 249 10^3/cmm (157-399) 02/14/25 07:36 MPV 9.3 fL (7.4-10.4) 02/14/25 07:36 Neut % (Auto) 54.6 % 02/14/25 07:36 Lymph % (Auto) 24.4 % 02/14/25 07:36 Howard % (Auto) 13.5 % 02/14/25 07:36 Eos % (Auto) 6.5 % 02/14/25 07:36 Baso % (Auto) 0.6 % 02/14/25 07:36 Neut # (Auto) 2.87 10^3/uL (1.8-7.7) 02/14/25 07:36 Lymph # (Auto) 1.3 10^3/uL (0.8-4.8) 02/14/25 07:36 Howard # (Auto) 0.7 10^3/uL (0.2-0.9) 02/14/25 07:36 Eos # (Auto) 0.3 10^3/uL (0.0-0.8) 02/14/25 07:36 Baso # (Auto) 0.0 10^3/uL (0.0-0.1) 02/14/25 07:36 Nucleated RBC % (auto) 0 % 02/14/25 07:36 Nucleated RBCs # 0.0 /100WBC 02/14/25 07:36 PT 13.10 SECONDS (12.1-14.9) 02/14/25 07:36 INR 0.92 (0.8-1.2) 02/14/25 07:36 APTT 37.0 SECONDS (23.9-36.7) H 02/14/25 07:36 Specimen Type Venous 02/14/25 08:15 Shahzad Test N/a 02/14/25 08:15 VBG pH 7.42 (7.32-7.42) 02/14/25 08:15 VBG pCO2 46.4 mmHg (41-51) 02/14/25 08:15 VBG pO2 33.1 mmHg (25-40) 02/14/25 08:15 VBG HCO3 30.2 mmol/L (24-28) H 02/14/25 08:15 VBG Base Excess 5.1 mmol/L (-3.0-3.0) H 02/14/25 08:15 VBG Hematocrit 28.9 % (37-47) L 02/14/25 08:15 O2 Delivery Device Nc 02/14/25 08:15 Ladle Operator ID Tejinder 02/14/25 08:15 Sodium 139 mmol/L (136-145) 02/14/25 07:36 Potassium 3.6 mmol/L (3.5-5.1) 02/14/25 07:36 Chloride 99 mmol/L (98-107) 02/14/25 07:36 Carbon Dioxide 26 mmol/L (22-29) 02/14/25 07:36 Anion Gap 17.6 (5-19) 02/14/25 07:36 BUN 35 mg/dL (8-23) H 02/14/25 07:36 Creatinine 1.8 mg/dL (0.5-0.9) H 02/14/25 07:36 GFR Calculation 27.8 mL/min (90-130) L 02/14/25 07:36 Glucose 118 mg/dL (65-115) H 02/14/25 07:36 Calculated Osmolality 297 mOsm/kg (285-295) H 02/14/25 07:36 Lactic Acid 1.4 mmol/L (0.5-2.2) 02/14/25 07:36 Calcium 9.0 mg/dL (8.5-10.5) 02/14/25 07:36 Magnesium 2.1 mg/dL (1.7-2.3) 02/14/25 07:36 Total Bilirubin 0.3 mg/dL (0.15-1.2) 02/14/25 07:36 AST 26 U/L (0-32) 02/14/25 07:36 ALT 10 U/L (0-33) 02/14/25 07:36 Alkaline Phosphatase 136 U/L (35-105) H 02/14/25 07:36 Creatine Kinase 70 U/L (26-192) 02/14/25 07:36 Troponin T Baseline 17 ng/L (0-10) H 02/14/25 07:36 Troponin T 120 Minute 18.20 ng/L (0-10) H 02/14/25 09:37 Delta Troponin T 1.20 ABS# (0-10) 02/14/25 09:37 NT-Pro-B Natriuret Pep 222 pg/mL (0-125) H 02/14/25 07:36 Total Protein 7.8 g/dL (6.6-8.7) 02/14/25 07:36 Albumin 4.0 g/dL (3.5-5.2) 02/14/25 07:36 Globulin 3.8 g/dL (1.3-4.6) 02/14/25 07:36 Lipase 29 U/L (13-60) 02/14/25 07:36 Urine Color Yellow (Yellow) 02/14/25 07:56 Urine Appearance Clear (CLEAR) 02/14/25 07:56 Urine pH 7.0 (5-7) 02/14/25 07:56 Ur Specific [place] 1.016 (1.005-1.030) 02/14/25 07:56 Urine Protein 1+ (Negative) A 02/14/25 07:56 Urine Glucose (UA) Negative (Normal) 02/14/25 07:56 Urine Ketones Negative (Negative) 02/14/25 07:56 Urine Blood Negative (Negative) 02/14/25 07:56 Urine Nitrate Negative (Negative) 02/14/25 07:56 Urine Bilirubin Negative (Negative) 02/14/25 07:56 Urine Urobilinogen 0.2 mg/dL (Negative) 02/14/25 07:56 Ur Leukocyte Esterase Negative (Negative) 02/14/25 07:56 Urine RBC 0-2 /hpf (0-2) 02/14/25 07:56 Urine WBC 0-5 /hpf (0-5) 02/14/25 07:56 Ur Squamous Epith Cells 0-5 /hpf (0-5) 02/14/25 07:56 Amorphous Sediment Not Reportable 02/14/25 07:56 Urine Bacteria None seen /hpf (NONE) 02/14/25 07:56 Hyaline Casts 2.87 /lpf 02/14/25 07:56 All radiology interpretation(s) finalized by discharge ED provider radiology interpretation(s): Chest x-ray negative for pulmonary edema, hip x-ray and pelvis x-ray negative for acute fracture, CT brain negative for acute intracranial hemorrhage or skull fracture, CT lumbar spine with prior kyphoplasty L4-L5, no acute fracture EKG Data EKG 1: I personally reviewed and interpreted this EKG as follows: EKG interpretation date: 02/14/25 EKG interpretation time: 08:11 Prior EKG tracings: available for review Interpretation: EKG performed at 6:48 AM showing sinus bradycardia with a short [place] interval at 58 bpm, no STEMI, no ectopy, QTc 419 ms Computer generated interpretation: Chest X-Ray 02/14/25 06:40 IMPRESSION: No acute cardiopulmonary disease. Hip/Pelvis X-Ray 02/14/25 06:45 IMPRESSION: No acute osseous findings. Head CT 02/14/25 08:27 IMPRESSION: 1. No evidence of intracranial hemorrhage or mass effect. 2. No acute intracranial findings. Lumbar Spine CT 02/14/25 11:34 IMPRESSION: 1. No acute fractures. Prior kyphoplasty changes L4 and L5 2. Stable moderate central canal stenosis L3-L4 and L4-L5 EKG 2: I personally reviewed and interpreted this EKG as follows: EKG interpretation date: 02/14/25 EKG interpretation time: 08:51 Prior EKG tracings: available for review Interpretation: EKG performed at 8:47 AM showing sinus bradycardia at 54 bpm, no STEMI, no ectopy, QTc 435 ms Computer generated interpretation: Chest X-Ray 02/14/25 06:40 IMPRESSION: No acute cardiopulmonary disease. Hip/Pelvis X-Ray 02/14/25 06:45 IMPRESSION: No acute osseous findings. Head CT 02/14/25 08:27 IMPRESSION: 1. No evidence of intracranial hemorrhage or mass effect. 2. No acute intracranial findings. Lumbar Spine CT 02/14/25 11:34 IMPRESSION: 1. No acute fractures. Prior kyphoplasty changes L4 and L5 2. Stable moderate central canal stenosis L3-L4 and L4-L5 Discharge Plan Discharge Patient Disposition: Home Clinical Impression: Acute urinary retention Syncope Qualifiers: Syncope type: unspecified Qualified Code(s): R55 - Syncope and collapse Contusion of hip Qualifiers: Encounter type: initial encounter Laterality: left Qualified Code(s): S70.02XA - Contusion of left hip, initial encounter Condition: Stable Prescriptions: New oxycodone-acetaminophen [Percocet] 5-325 mg tablet 1 tab PO Q6H PRN (Reason: pain) 3 Days Qty: 12 0RF No Action (DME) tens unit for cervical See Rx Instructions .Route .MEDSUPPLY Qty: 1 0RF Rx Instructions: As directed prednisone 20 mg tablet See Rx Instructions PO DAILY Qty: 30 1RF Rx Instructions: Take 1 or 2 tablets daily up to 7 days as needed for joint pain flare. (DME) Bone growth stimulator See Rx Instructions .Route .MEDSUPPLY Qty: 1 0RF Rx Instructions: As directed (DME) Bone growth stimulator See Rx Instructions .Route .MEDSUPPLY Qty: 1 0RF Rx Instructions: As directed (DME) insulin syringes (disposable) 1 mL syringe See Rx Instructions .ROUTE .MEDSUPPLY Qty: 25 3RF Rx Instructions: As directed Humira(CF) 40 mg/0.4 mL syringe kit 40 mg SUBCUT Q14D Qty: 2 5RF levothyroxine 125 mcg tablet 125 mcg PO DAILY Qty: 30 0RF oxycodone 10 mg tablet 10 mg PO Q8H PRN (Reason: Pain) ropinirole 5 mg tablet 5 mg PO BID Qty: 270 0RF ramelteon 8 mg tablet 8 mg PO BEDTIME clopidogrel 75 mg tablet 75 mg PO DAILY 30 Days Qty: 30 0RF pantoprazole [Protonix] 40 mg tablet,delayed release (DR/EC) 40 mg PO Q12H 30 Days Qty: 60 0RF potassium chloride 20 mEq tablet extended release 20 meq PO DAILY Qty: 30 0RF promethazine 25 mg tablet 25 mg PO Q6H PRN (Reason: Nausea) albuterol sulfate 90 mcg/actuation HFA aerosol inhaler 2 inh INHALATION Q4H PRN (Reason: shortness of breath or wheezing) Qty: 18 0RF lidocaine 5 % adhesive patch,medicated 1 patch topical [id number] PRN (Reason: Pain) sucralfate 1 gram tablet 1 g PO AC Qty: 90 0RF furosemide 20 mg tablet 40 mg PO QAM atorvastatin 40 mg tablet 40 mg PO BEDTIME aspirin 81 mg tablet,delayed release (DR/EC) 81 mg PO DAILY nitroglycerin 0.4 mg tablet, sublingual See Rx Instructions .ROUTE .COMPLEX Rx Instructions: DISSOLVE 1 TABLET UNDER THE TONGUE EVERY 5 MINUTES NEEDED FOR CHEST PAIN. DO NOT EXCEED A TOTAL OF 3 DOSES IN 15 MINUTES. folic acid 1 mg tablet 1 mg PO DAILY gabapentin 300 mg capsule 300 mg PO TID fluticasone propionate 50 mcg/actuation spray,suspension 1 spray INTRANASAL BID PRN (Reason: allergies) baclofen 10 mg tablet 5 mg PO Q12H PRN (Reason: Muscle Spasm) Qty: 30 0RF alprazolam [Xanax] 0.25 mg tablet 0.5 mg PO DAILY PRN (Reason: anxiety) Rx Instructions: Do not drive or operate heavy machinery or drink while taking medications ranolazine 500 mg Tablet Extended Release 12 Hr 500 mg PO BID Qty: 180 0RF Discharge Orders: Discharge ED (Routine); Ordered 02/14/25 Ordered By: Brandon Acevedo Referrals: [facility] [Outside] Maldonado Barnes MD [Referring, Urology] Diana Garcia PA [Primary Care Provider, [facility] [employer]] Patient Instructions: Dehydration (DC), Syncope (DC), Acute Low Back Pain (ED), Patient Portal & Cece Instructions Print Language: Hong Konger Coding Level of Care Code ED Group Rooms Coordinator for Maribel Sweet
[2025-02-14 08:07] LABS: INR 0.92 (0.8-1.2); Prothrombin Time 13.10 SECONDS (12.1-14.9)
[2025-02-14 08:08] LABS: Partial Thromboplastin Time 37.0 SECONDS (23.9-36.7)
[2025-02-14 08:11] LABS: Glucose Urine UA Negative (Normal); Nitrate Urine Negative (Negative); Specific Gravity, Urine 1.016 (1.005-1.030)
[2025-02-14 08:15] LABS: Lactic Sepsis W/Reflex 1.4 mmol/L (0.5-2.2)
[2025-02-14 08:16] LABS: Add Urine Microscopic? YES
[2025-02-14 08:21] LABS: Alanine Aminotransferase 10 U/L (0-33); Albumin Level 4.0 g/dL (3.5-5.2); Alkaline Phosphatase 136 U/L (35-105); Anion Gap 17.6 (5-19); Aspartate Amino Transferase 26 U/L (0-32); Blood Urea Nitrogen 35 mg/dL (8-23); Calcium 9.0 mg/dL (8.5-10.5); Carbon Dioxide 26 mmol/L (22-29); Chloride 99 mmol/L (98-107); Creatinine Clr Calc Pharmacy 28.3956; Globulin 3.8 g/dL (1.3-4.6); Glucose 118 mg/dL (65-115); Lipase 29 U/L (13-60); Magnesium 2.1 mg/dL (1.7-2.3); NT Pro B Type Natriuretic Pept 222 pg/mL (0-125); Osmolality Calculated 297 mOsm/kg (285-295); Potassium 3.6 mmol/L (3.5-5.1); Sodium 139 mmol/L (136-145); Total Protein 7.8 g/dL (6.6-8.7)
[2025-02-14 08:23] LABS: Base Excess VBG 5.1 mmol/L (-3.0-3.0); Blood Gas Operator Identificat WALCI; Blood Gas Sample Type Venous; HCO3 VBG 30.2 mmol/L (24-28); PCO2 VBG 46.4 mmHg (41-51); PO2 VBG 33.1 mmHg (25-40); Venous Blood Gas Hematocrit 28.9 % (37-47); pH VBG 7.42 (7.32-7.42)
[2025-02-14 08:25] LABS: Troponin(5th) Baseline 17 ng/L (0-10)
--- NOTE | 2025-02-14 08:27 | CT_ITS ---
WS: [id number] CT HEAD TECHNIQUE: Noncontrast CT of the head obtained from the skullbase to the vertex. CLINICAL INFORMATION: headache COMPARISON: 11/04/2024 DLP: 1257.[address] scans at [facility] use at least one of these dose optimization techniques: automated exposure control; mA and/or kV adjustment per patient size (includes targeted exams where dose is matched to clinical indication); or iterative reconstruction. FINDINGS: No evidence of intracranial hemorrhage or mass effect. Ventricular system and basal cisterns are patent. Mild small vessel changes with mild parenchymal volume loss. No extra-axial fluid collections. No evidence of mass or mass effect. Vascular calcification. Benign basal ganglia calcifications. Mild mucosal thickening in the ethmoid air cells. Paranasal sinuses are well aerated. Mastoid air cells are well aerated. CT/CT head wo con* [id number] IMPRESSION: 1. No evidence of intracranial hemorrhage or mass effect. 2. No acute intracranial findings.
--- NOTE | 2025-02-14 08:47 | ECG_ITS ---
[facility]: 2025-02-14 Pat Name: Tosha Perry Department: Room: Gender: Female Director Nursing Service: : 1955 Requested By: Brandon Acevedo Order Number: [id number] Dietz MD: Sherine Greene M.D. Measurements Intervals Doon Rate: 54 P: 66 AZ: 182 QRS: 52 QRSD: 93 T: 55 QT: 450 QTc: 428 Interpretive Statements SINUS BRADYCARDIA LOW QRS VOLTAGE IN EXTREMITY LEADS [QRS DEFLECTION < 0.5 mV IN LIMB LEADS] Compared to ECG 02/14/2025 06:48:48 Low QRS voltage now present Short [place] interval no longer present Electronically Signed On 02-14-2025 23:54:15 TOMBSTONE ERECTOR by Sherine Greene M.D. [email or web address]
[2025-02-14] MEDS: pantoprazole 40 mg SDV 80 MG IVP (08:58)
[2025-02-14 10:05] LABS: Troponin 5 2HR 18.20 ng/L (0-10); Troponin 5 2HR Delta 1.20 ABS# (0-10)
[2025-02-14] MEDS: HYDROmorphone 0.5 MG/0.5 ML INJ IVP (10:32)
--- NOTE | 2025-02-14 11:34 | CT_ITS ---
WS: [id number] CT LUMBAR SPINE TECHNIQUE: Noncontrast CT of the lumbar spine with coronal and sagittal reformatted images. CLINICAL INFORMATION: low back pain s/p fall COMPARISON: 2022 DLP: 590.[address] scans at [facility] use at least one of these dose optimization techniques: automated exposure control; mA and/or kV adjustment per patient size (includes targeted exams where dose is matched to clinical indication); or iterative reconstruction. FINDINGS: Osteoporosis. Prior kyphoplasty L4 and L5. IVC filter. Dense vascular calcification. Grade 1 anterolisthesis L5 on S1. Disc space narrowing L2-3. Advanced emphysematous changes in the lung bases. Moderate esophageal hiatal hernia. Cholecystectomy clips. Degenerative arthritis sacroiliac joints. L3-L4: Mild disc bulging. Moderate central canal stenosis with narrowing of the subarticular recess. Moderate facet arthropathy and ligamentum flavum hypertrophy. Moderate bilateral bony foraminal narrowing with moderate facet arthropathy. L4-L5: Mild disc bulging with moderate central canal stenosis. Advanced facet arthropathy with ligamentum flavum hypertrophy. Moderate bilateral foraminal narrowing. L5-S1: Grade 1 anterolisthesis. Disc bulging with slight narrowing of the LEFT subarticular recess. Advanced facet arthropathy. Mild to moderate LEFT and no significant RIGHT foraminal narrowing. Visualized pelvic bony structures: Normal. Paravertebral soft tissues: Normal. CT/CT lumbar spine wo con* [id number] IMPRESSION: 1. No acute fractures. Prior kyphoplasty changes L4 and L5 2. Stable moderate central canal stenosis L3-L4 and L4-L5
== END 2025-02-14 14:31 | disposition home or self-care (01) ==
PROVIDERS: Emergency Provider Student in an Organized Health Care Education/Training Program; PCP Physician Assistant
DX: R33.8 Other retention of urine (principal); R55 Syncope and collapse; S70.02XA Contusion of left hip, initial encounter; Z79.82 Long term (current) use of aspirin; Z87.891 Personal history of nicotine dependence; I25.10 Atherosclerotic heart disease of native coronary artery without angina pectoris; E78.5 Hyperlipidemia, unspecified; N18.30 Chronic kidney disease, stage 3 unspecified; W19.XXXA Unspecified fall, initial encounter
CPT/HCPCS: 36415; 51702; 51798; 70450; 71045; 72131; 73522; 80053; 81001; 82550; 82803; 83605; 83690; 83735; 83880; 84484; 85025; 85610; 85730; 87040; 93005; 96361; 96374; 96375; 99285; J1171; J2405; J2470; J7030

== ENCOUNTER 2025-03-06 02:27 | Emergency (ER) | payer MEDICARE, OTHER, SELFPAY ==
[2025-03-06 02:28] VITALS: BP 145/69; PULSE 58; RESP 20; TEMP 36.5; O2SAT 97; BMI 23.1
--- OUTSIDE RECORDS SUMMARY | 2025-03-06 02:35 | XMS_ITS | Continuity of Care Document ---
Author Organization [facility] Sharita, Job, [facility] ([facility]) Address [address] [place] [address] Care Team Providers Care Recreation Officer Name Role Phone KIERAN VO Primary Care Provider Unavailabl e Assessment No assessment recorded. Plan of Treatment Reminders Order Date Submit Date Provider Last Modified By Organization Details Last Modified Time Details Appointments OFFICE VISIT 20 2024 01:20P Anny VO PA-C Not available Not available Not available Lab [facility] 2024 [facility]25 [facility], [address], [place], [address], 02/27/2025 03:03:52 BMP, serum or plasma 2024 025 [facility], [address], [place], [address], 02/27/2025 03:03:52 Referral None recorded. Procedures None recorded. Surgeries None recorded. Imaging None recorded. Medication Orders atorvasta tin 40 mg tablet 2024 025 [facility] #[id number], [address], [place], [address], 02/13/2025 15:20:22 ranolazin e ER 500 mg tablet,ex tended release,1 2 hr 2024 025 [facility] #[id number], [address], [place], [address], 02/13/2025 15:20:22 furosemid e 40 mg tablet 2024 025 [facility] #[id number], [address], [place], [address], 02/13/2025 15:16:44 potassium chloride 40 mEq/15 mL oral liquid 2024 025 [facility]acy #[id number], [address], [place], [address], 02/13/2025 15:16:44 Patient TargetsNo targets recorded. Patient InstructionsNo instructions recorded. Reason for Referral None Reported. Problems Name Problem SNOMED Code Status Onset Date Resolution Date Notes Provider Name and Address Organization Details Recorded Time Hand pain 71506592 Completed 202205/14/2024 NICOLE gustafson [facility], [facility] 5 07:55:21 Hand pain 41635343 Completed 202205/14/2024 NICOLE gustafson [facility], [facility]LHarjeet[facility]jeet 5 07:55:15 Low back pain 778348558 Completed 202305/14/2024 NICOLE gustafson [facility], [facility] 5 18:20:21 Deep venous thrombosi s of lower extremity 960076556 Completed 202305/14/2024 at [facility] non occlusi ve. IVC placed due to no able to take blood thinner sherry gustafson [facility], Job 5 07:54:08 Chronic pain 03812685 Active 2023 [facility] 07:54:43 Hospital inpatient stay within past 30 days 06110938640 06 Completed 202305/14/2024 NICOLE CRANE null, [facility] 5 07:55:38 History of cervical spine fusion 34666187172 01 Completed 202305/14/2024 NICOLE HADENISE null, [facility] 5 07:55:29 Hypothyro idism 09277143 Active 2023 NICOLE HADENISE null, [facility] 5 07:55:43 Depressiv e disorder 77907949 Active 2023 NICOLE HADENISE null, [facility] 5 07:54:53 Gastroeso phageal reflux disease without esophagit is 511383015 Active 2023 NICOLE HAEFFEDD null, [facility] 5 07:55:09 Anxiety 88462414 Active 2023 NICOLE HADENISE null, [facility] 5 07:54:40 Rib pain 746008950 Completed 202305/14/2024 NICOLE HADENISE null, [facility] 5 07:57:21 Nausea 278392266 Completed 202305/14/2024 NICOLE HAEFFNER null, [facility] 5 07:55:56 Peptic ulcer 91508858 Completed 202305/14/2024 NICOLE HAEFFNER null, [facility] 5 07:57:13 Pain in bilateral legs 64329682032 297405 Completed 202305/14/2024 NICOLE HAEFFNER null, [facility] 5 07:56:52 Pain in left lower limb 645233589 Completed 202305/14/2024 NICOLE HAEFFNER null, [facility] 5 07:57:01 Acquired dilation of bile duct 30987894706 11740 Completed 202305/14/2024 NICOLE HAEFFNER null, [facility] 5 07:54:30 Deep venous thrombosi s 356707036 Completed 202305/14/2024 NICOLE HAEFFNER null, [facility] 5 07:54:50 Anemia 446483648 Active 2023 NICOLE HAEFFNER null, [facility] 5 07:54:37 Pain in right arm 557848726 Completed 202305/14/2024 NICOLE HAEFFNER null, [facility] 5 07:57:07 Right upper quadrant pain 090632747 Completed 202305/14/2024 NICOLE HAEFFNER null, [facility] 5 07:57:36 Nausea and vomiting 53251135 Completed 202305/14/2024 NICOLE HAEFFNER null, [facility] 5 07:56:02 Edema 337474436 Completed 202305/14/2024 NICOLE HAEFFNER null, [facility] 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 5 08:05:04 Low back pain 978500476 Active 2024 NICOLE CRANE [facility] 5 18:20:21 Restless legs syndrome 38451146 Active 2024 NICOLE SCHAFFEREDD [facility] 5 18:20:23 Chronic insomnia 429523135 Active 2024 NICOLEHOLLAND CRANE [facility] 5 18:31:19 Retention of urine 374013380 [facility] 2024 [facility] 5 14:49:35 Problem Notes None recorded. Procedures Surgical History Date Name Laterality Status Provider Name and Address Organization Details Recorded Time 2024 fluoroscopic angiography of coronary artery with contrast and insertion of stent completed NICOLE CRANE [facility], RodgerL.Tyshawn 5 18:02:58 2024 plain X-ray of chest completed PAULETTE JASON [facility], [facility]et[facility] 5 00:10:[address] of abdomen and pelvis completed [facility] 5 00:12:33 2023 insertion of arterial stent completed JER VO PA-C [address] [place] [address], [phone], [facility], Job 4 15:12:39 2023 colonoscopy completed KIERAN VO PA-C [address] [place], [address], [facility] 4 17:29:05 2023 esophagogastroduodenoscopy completed KIERAN VO PA-C [address] [place], [address], [facility] 4 17:08:01 2023 ultrasonography of liver completed NICOLE CRANE [facility] 4 16:43:05 2023 primary posterior decompression cervical cord and fusion completed KIERAN VO PA-C [address] [place], [address], [facility] 4 13:58:12 2023 insertion of inferior vena caval filter completed KIERAN VO PA-C [address] [place], [address], [facility] 4 13:58:28 2022 primary fusion of cervical spine completed IKERAN VO PA-C [address] [place], [address], [facility] 3 12:50:26 Imaging Results None recorded. Procedure Notes None recorded. Medical Equipment None Reported. Allergies Allergen ID Allergen Name Allergen Category Reaction Reaction Severity Criticality Documentation Date Start Date Code Code System Note Provider Name and Address Organization Details Recorded Time 40848 Benadryl medicatio n Not available Not available Not available 03/12/2023 80725 7 RxNorm NICOLE gustafson [facility] 3 12:01:01 28233 amitripty line medicatio n Not available Not available Not available 03/12/2023 704 RxNorm NICOLE ROSA MARIA gustafson, [facility] 3 12:01:37 96429 tizanidin e medicatio n Not available Not available Not available 03/12/2023 08800 RxNorm NICOLE CRANE null, [facility] 3 12:08:21 84386 morphine medicatio n confusion Not available [facility] 09/02/2023 7052 RxNorm KIERAN VO PA-C [address] [place] [address], [address], [facility] 4 15:15:03 67239 venlafaxi ne medicatio n itching Not available Not available 02/13/2025 37679 RxNorm NICOLE gustafson, [facility] 5 14:50:24 05817 ibuprofen medicatio n Not available Not available [facility] 02/23/2025 5640 RxNorm Not Available wanda - External Data Service - prod 5 09:45:37 31520 acetamino phen medicatio n Not available Not available [facility] 02/23/2025 161 RxNorm Not Available wanda - External Data Service - prod 5 09:45:37 49708 prochlorp erazine medicatio n Not available Not available [facility] 02/23/2025 8704 RxNorm Not Available wanda - External Data Service - prod 5 09:45:37 23859 diphenhyd ramine medicatio n Not available Not available [facility] 02/23/2025 3498 RxNorm unrec ogniz ed react ion (text : Hyper activ e behav ior (find ing), code: 46703 000) (from exter nal sour e) Not Available wanda - External Data Service - prod 5 09:45:37 88339 leflunomi de medicatio n Not available Not available [facility] 02/23/20252024 11182 RxNorm Not Available slade - External Data Service - prod 5 09:45:40 08852 sulfasala zine medicatio n Not available Not available [facility] 02/23/20252024 9524 RxNorm Not Available [facility] External Data Service - [facility] 5 09:45:40 Medications Name Sig Start Date Stop Date Status Note LastModified by Organization Details LastModified Time fluoxetine 40 mg capsule TAKE 1 CAPSULE BY MOUTH EVERY MORNING 03/12 completed Not Available Not Available Not Available furosemide 40 mg tablet TAKE 1 TABLET BY MOUTH EVERY DAY NEEDED. active Not Available Not Available No t Available latanopros t 0.005 % eye drops PLACE 1 DROP INTO BOTH EYES AT BEDTIME 12/13 completed Not Available Not Available Not Available fluconazol e 100 mg tablet TAKE 1 TABLET BY MOUTH EVERY DAY FOR 14 DAYS 06/02 completed Not Available Not Available Not Available atorvastat in 40 mg tablet TAKE 1 TABLET BY MOUTH EVERYDAY AT BEDTIME active Not Available Not Available No t Available prednisone 10 mg tablet 1 qod [...] oxycodone- acetaminop hen 5 mg-325 mg tablet TAKE 1 TABLET BY MOUTH EVERY 6 HOURS NEEDED FOR PAIN FOR 3 DAYS active Not Available Not Available No t Available alprazolam 0.5 mg tablet Take 1 [...] completed Not Available Not Available Not Available tamsulosin 0.4 mg capsule TAKE 1 CAPSULE BY MOUTH [...] potassium chloride 40 mEq/15 mL oral liquid TAKE 7.5 ML EVERY DAY BY ORAL ROUTE FOR 30 DAYS. DILUTE BEFORE TAKING. active Not Available Not Available No t Available pantoprazo le 40 mg tablet,del ayed release TAKE ONE TABLET BY MOUTH EVERY TWELVE HOURS active Not Available Not Available No t Available levothyrox ine 125 mcg tablet TAKE 1 TABLET BY MOUTH EVERY DAY active Not Available Not Available No t Available dexamethas one 4 mg tablet TAKE [...] TABLET BY MOUTH EVERY DAY AT BEDTIME FOR 30 DAYS active Not Available Not Available No t Available aspirin 81 MG QD 02/13 completed Not Available Not Available Not Available ranolazine ER 500 mg tablet,ext ended release,12 hr TAKE 1 TABLET BY MOUTH TWICE A [...] mass index (BMI) Body weight Oxygen saturation Heart rate Respiratory rate Body temperature Systolic And Diastolic Provider Name and Address Organization Details Last Updated DateTime 163.83 cm 25.2 kg/m2 45081.2 6 g 96 % 78 /min 20 /min 98 [degF] 130/80 mm[Hg] NICOLE CRANE [facility] 14:41:35 Social History Question Answer Notes LastModified by Organizat ion Details LastModified Time Tobacco Smoking Status Former Smoker Irene gustafson [facility] 09/05/2023 15:56:32 Which Illicit Or Recreational Drugs Have You Used? Marjiana [email or web address] Information not available 11/02/2024 What Was The Date Of Your Most Recent Tobacco Screening? 11/02/2024 [email or web address] Information not available 11/02/2024 At What Age Did You Start Smoking Tobacco? 49 For 3 Weeks Only [email or web address] Information not available 11/02/2024 Sex: Unknown Functional Status Question Answer Note LastModified by Organizat ion Details LastModified Time Do you use any illicit or recreational drugs? Yes Information not available 11/02/2024 What is your level of alcohol consumption? None [email or web address] Information not available 11/02/2024 Mental Status None recorded. Family History Nothing Reported. Medical History No medical history recorded. Gynecological HistoryNo gynecological history recorded. Obstetrics History GPAL:G 0 P 0 0 0 0 Immunizations Vaccine Type Date Status Note Provider Nam e and Address Organization Details Recorded Time COVID-19, mRNA, LNP-S, PF, errol-sucrose, 30 mcg/0.3 mL 4 completed Gracie [facility] 11/12/2023 15:11:33 Influenza, split virus, trivalent, PF 4 completed Not Available [facility] 02/13/2025 14:28:04 Pneumococcal conjugate PCV20, polysaccharide LTY399 conjugate, adjuvant, PF 5 [facility] 05/[facility]24 16:17:51 Past Encounters Encounter ID Performer Location Encounter Start Date Encounter Closed Date Diagnosis/Indication Diagnosis SNOMED-CT Code Diagnosis ICD10 Code Diagnosis IMO Codes Diagnosis Note [id number] KIERAN VO PA-C [facility] ([facility]) [address] [place] [address] 02/13/2025 14:26:45 02/13/2025 15:27:07 Edema 810390060 R60.9 Upper gastrointestinal bleeding 56310469 K92.2 841062 scope 03/[address] Ruiz. Scope 01/05/25 at [facility] small area of bleeding. needs plavix and ASA due to stent on 12/27/24 Stented co ronary artery 827622895 I25.10 Z95.5 23903780 Health Concerns Section Related Observation LastModified by Organization Detai ls LastModified Time None Recorded Concern Status LastModified by Organization Details LastModified Time None Recorded Payers Encounter Date Sequence Insurance Name Policy Number Policy Rivera Covered Member ID Rivera Member ID Guarantor Name 02/13/2025 1 [place]IC[place]: [place] Tosha Perry [id number] Tosha Perry 02/13/2025 2 [employer] (MEDICARE SUPPLEMENT) Tosha Rancary [id number] Tosha Perry Notes Date Note Type Note [...] her GI doc. 10.28 KIERAN VO PA-C [address] [place] [address], [address], [facility] 02/13/2025 15:25:18 OBGyn Episode No OBEpisode recorded.
--- OUTSIDE RECORDS SUMMARY | 2025-03-06 02:36 | XMS_ITS | Continuity of Care Document ---
Author Organization [facility] [place], Job, [facility] ([facility]) Address [address] [place] [address] Care Team Providers Care Oceanology Teacher Name Role Phone KIERAN VO Primary Care Provider Unavailabl e Assessment No assessment recorded. Plan of Treatment Reminders Order Date Submit Date Provider Last Modified By Organization Details Last Modified Time Details Appointments OFFICE VISIT 2024 01:20P M KIERAN VO PA-C Not available Not available Not available Lab None recorded . Referral None recorded . Procedures None recorded . Surgeries None recorded . Imaging None recorded . Medication Orders None recorded . Patient TargetsNo targets recorded. Patient InstructionsNo instructions recorded. Reason for Referral None Reported. Problems Name Problem SNOMED Code Status Onset Date Resolution Date Notes Provider Name and Address Organization Details Recorded Time Hand pain 67347660 Completed 202205/14/2024 [facility] 07:[facility]21 Hand pain 07988519 Completed 202205/14/2024 NICOLE gustafson [facility] LHarjeetLHarjeetCHarjeet 5 07:55:15 Low back pain 323186115 Completed 202305/14/2024 [facility] 5 18:20:21 Deep venous thrombosi s of lower extremity 473334825 Completed 202305/14/2024 at [facility] non occlusi ve. IVC placed due to no able to take blood thinner s. NICOLE gustafson, [facility] 5 07:54:08 Chronic pain 15035501 Active 2023 NICOLE ROSA MARIA null, [facility] 5 07:54:43 Hospital inpatient stay within past 30 days 89532162015 06 Completed 202305/14/2024 NICOLE CRANE null, [facility] 5 07:55:38 History of cervical spine fusion 21816254819 01 Completed 202305/14/2024 NICOLE CRANE null, [facility] 5 07:55:29 Hypothyro idism 44763990 Active 2023 NICOLE CRANE null, [facility] 5 07:55:43 Depressiv e disorder 27605977 Active 2023 NICOLE CRANE null, [facility] 5 07:54:53 Gastroeso phageal reflux disease without esophagit is 842133407 Active 2023 NICOLE CRANE null, [facility] 5 07:55:09 Anxiety 95745289 Active 2023 NICOLE ROSA MARIA null, [facility] 5 07:54:40 Rib pain 696943481 Completed 202305/14/2024 NICOLE CRANE null, [facility] 5 07:57:21 Nausea 650609464 Completed 202305/14/2024 NICOLE CRANE null, [facility] 5 07:55:56 Peptic ulcer 13593034 Completed 202305/14/2024 NICOLE ROSA MARIA null, [facility] 5 07:57:13 Pain in bilateral legs 02458886968 076156 Completed 202305/14/2024 [facility] 5 07:56:52 Pain in left lower limb 521581782 Completed 202305/14/2024 NICOLE gustafson, [facility], LHarjeetL.C. 5 07:57:01 Acquired dilation of bile duct 75934850590 66472 Completed 202305/14/2024 NICOLE CRANE null, [facility] 5 07:54:30 Deep venous thrombosi s 179370042 Completed 202305/14/2024 NICOLE ROSA MARIA null, [facility] 5 07:54:50 Anemia 920748026 Active 2023 NICOLE ROSA MARIA null, [facility] 5 07:54:37 Pain in right arm 643728613 Completed 202305/14/2024 NICOLE HALESLYFEDD null, [facility] 5 07:57:07 Right upper quadrant pain 984986001 Completed 202305/14/2024 NICOLE ROSA MARIA null, [facility] 5 07:57:36 Nausea and vomiting 80492857 Completed 202305/14/2024 NICOLE SARBJITFEDD null, [facility], L.L.CHarjeet 5 07:56:02 Edema 813545111 Completed 202305/14/2024 [facility] 5 07:54:58 Rheumatoi d arthritis 93852046 Active 2024 NICOLE CRANE [facility], Job 5 08:03:54 Chronic deep venous thrombosi s of lower extremity 84259503842 9106 Active 2024 NICOLE CRANE [facility], Job 5 08:05:04 Low back pain 235202176 Active 2024 NICOLE CRANE [facility], Job 5 18:20:21 Restless legs syndrome 53313753 Active 2024 NICOLE CRANE [facility], DianeCHarjeet 5 18:20:23 Chronic insomnia 362484501 Active 2024 [facility] DianeCH[facility]jeet 5 18:31:19 Retention of urine 611773133 Active 2024 NICOLE CRANE [facility], DianeCHarjeet 5 14:49:35 Problem Notes None recorded. Procedures Surgical History Date Name Laterality Status Provider Name and Address Organization Details Recorded Time 2024 fluoroscopic angiography of coronary artery with contrast and insertion of stent completed [facility] 18:02:58 2024 plain X-ray of chest completed [facility]E [facility]AS[facility] 00:[facility] of abdomen and pelvis completed PAULETTE JASON [facility] 5 00:12:33 2023 insertion of arterial stent completed JER VO PA-C [address] [place], [address], [facility] 4 15:12:39 2023 colonoscopy completed KIERAN VO PA-C [address] [place], [address], [facility] 4 17:29:05 2023 esophagogastroduodenoscopy completed KIERAN VO PA-C [address] [place], [address], [facility] 4 17:08:01 2023 ultrasonography of liver completed NICOLE CRANE [facility] 4 16:43:05 2023 primary posterior decompression cervical cord and fusion completed KIERAN VO PA-C [address] [place], [address], [facility] 4 13:58:12 2023 insertion of inferior vena caval filter completed KIERAN VO PA-C [address] [place], [address], [facility] 4 13:58:28 2022 primary fusion of cervical spine completed KIERAN VO PA-C [address] [place], [address], [facility] 3 12:50:26 Imaging Results None recorded. Procedure Notes None recorded. Medical Equipment None Reported. Allergies Allergen ID Allergen Name Allergen Category Reaction Reaction Severity Criticality Documentation Date Start Date Code Code System Note Provider Name and Address Organization Details Recorded Time 61556 Benadryl medicatio n Not available Not available Not available 03/12/2023 19954 7 RxNorm NICOLE DEJESUSEDD gustafson, [facility] 3 12:01:01 96781 amitripty line medicatio n Not available Not available Not available 03/12/2023 704 RxNorm NICOLE DEJESUSEDD gustafson, [facility] 3 12:01:37 99814 tizanidin e medicatio n Not available Not available Not available 03/12/2023 83806 RxNorm NICOLE DEJESUSEDD gustafson, [facility] 3 12:08:21 35828 morphine medicatio n confusion Not available [facility] 09/02/2023 7052 RxNorm KIERAN VO PA-C [address] [place] [address], [address] [place] [address], L.L.C. 4 15:15:03 19183 venlafaxi ne medicatio n itching Not available Not available 02/13/2025 15828 RxNorm [facility] 5 14:50:24 13618 ibuprofen medicatio n Not available Not available [facility] 02/23/2025 5640 RxNorm Not Available [facility] - External Data Service - prod 5 09:45:37 55675 acetamino phen medicatio n Not available [facility] 02/23/2025 161 RxNorm Not Available wanda - External Data Service - prod 5 09:45:37 30649 prochlorp erazine medicatio n Not available [facility] 02/23/2025 8704 RxNorm Not Available wanda - External Data Service - prod 5 09:45:37 55318 diphenhyd ramine medicatio n Not available Not available [facility] 02/23/2025 3498 RxNorm unrec ogniz ed react ion (text : Hyper activ e behav ior (find ing), code: 29874 000) (from [facility]) Not Available [facility] External Data Service - prod 5 09:45:37 14957 leflunomi de medicatio n Not available Not available [facility] 02/23/20252024 56743 RxNorm Not Available [facility] External Data Service - prod 5 09:45:40 24015 sulfasala zine medicatio n Not available Not available [facility] 02/23/20252024 9524 RxNorm Not Available [facility] External Data Service - [facility] 09:45:40 Medications Name Sig Start Date Stop [...] Organization Details Last Updated DateTime 163.83 cm 23.5 kg/m2 40741.3 4 g 95 % 70 /min 18 /min 97.9 [degF] 120/70 mm[Hg] NICOLE CRANE [facility] 5 14:19:08 Social History Question Answer Notes LastModified by Organizat ion Details LastModified Time Tobacco Smoking Status Former Smoker Irene Naylor janay [facility] 09/05/2023 15:56:32 Which Illicit Or Recreational Drugs Have You Used? Leilani [email or web address] Information not available 11/02/2024 What Was The Date Of Your Most Recent Tobacco Screening? 11/02/2024 Information not available 11/02/2024 At What Age Did You Start Smoking Tobacco? 49 For 3 Weeks Only [email or web address] Information not available 11/02/2024 Sex: Unknown Functional Status Question Answer Note LastModified by Organizat ion Details LastModified Time Do you use any illicit or recreational drugs? Yes [email or web address] Information not available 11/02/2024 What is your level of alcohol consumption? None [email or web address] Information not available 11/02/2024 Mental Status None recorded. Family History Nothing Reported. Medical History No medical history recorded. Gynecological HistoryNo gynecological history recorded. Obstetrics History GPAL:G 0 P 0 0 0 0 Immunizations Vaccine Type Date Status Note Provider Nam e and Address Organization Details Recorded Time COVID-19, mRNA, LNP-S, PF, errol-sucrose, 30 mcg/0.3 mL 4 completed Gracie gustafson [facility] 11/12/2023 15:11:33 Influenza, split virus, trivalent, PF 4 completed Not Available [facility] 02/13/2025 14:28:04 Pneumococcal conjugate PCV20, polysaccharide [id number] conjugate, adjuvant, PF 5 completed NICOLE gustafson [facility] 05/24/2024 16:17:51 Past Encounters Encounter ID Performer Location Encounter Start Date Encounter Closed Date Diagnosis/Indication Diagnosis SNOMED-CT Code Diagnosis ICD10 Code Diagnosis IMO Codes Diagnosis Note [id number] KIERAN VO PA-C [facility] ([facility]) [address] [place] [address] 01/11/2025 14:06:00 01/12/2025 08:44:46 Multi vessel coronary artery disease 054155839 I25.10 6396608 recent stents x 2 back to back. 01/04 need one year of dual plt asa and plavix therapy for 1 yr. Post-disch arge follow-up 237763960 Z09 308374 Exposure t o SARS-CoV-2 340440015 Z20.822 4727032135 pt left without being tested. Upper gastrointestinal bleeding 99568419 K92.2 750351 scope 03/[address] Ruiz. Scope 01/05/25 at [facility] small area of bleeding. needs plavix and ASA due to stent on 12/27/24 Health Concerns Section Related Observation LastModified by Organization Detai ls LastModified Time None Recorded Concern Status LastModified by Organization Details LastModified Time None Recorded Payers Encounter Date Sequence Insurance Name Policy Number Policy Rivera Covered Member ID Rivera Member ID Guarantor Name 01/11/2025 1 MEDICARE [place]: [employer] Tosha Perry [id number] Tosha Perry 01/11/2025 2 [employer] (MEDICARE SUPPLEMENT) Tosha Perry [id number] Tosha Perry Notes Date Note Type Note Provider Name and Address Organization Details Recorded Time 5 text/html jr chest pain hpiReported by [...] lab yesterday and they saw no pneumonia KIERAN VO PA-C [address] [place], [address], [facility], Job 01/11/2025 18:13:05 OBGyn Episode No OBEpisode recorded.
--- OUTSIDE RECORDS SUMMARY | 2025-03-06 02:36 | XMS_ITS | Clinical Summary ---
Author Organization 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
--- OUTSIDE RECORDS SUMMARY | 2025-03-06 02:36 | XMS_ITS | Data Portability ---
Author Organization [place] [facility] Address [address] [address] Care Team Providers Care [place] Attendant Name Role Phone DIANA GARCIA Primary Care Provider Unavailabl e Assessment No assessment recorded. Plan of Treatment Reminders Order Date Submit Date Provider Last Modified By Organization Details Last Modified Time Details Appointments OFFICE VISIT 20 2024 01:20P Anny GARCIA PA-C Not available Not available Not available Lab CBC 2024 025 [facility], [address], [place], [address], 02/27/2025 03:03:52 BMP, serum or plasma 2024 025 [facility], [address], [address], [place], [address], 02/27/2025 03:03:52 BMP, serum or plasma [address] [facility], [address], [address], [place], [address], 12/11/2024 15:14:32 CBC 2024 025 [email or web address], [address], [address], [place], [address], 12/11/2024 15:14:32 Referral physical therapist referral 2024 025 [place] [address] [facility], [address], [place], [address], 12/06/2024 15:40:29 physical therapist referral [address], [address] [place], [address], 01/02/2025 15:03:25 Procedures None recorded. Surgeries None recorded. Imaging None recorded. Medication Orders atorvasta tin 40 mg tablet 2024 [facility]/Pharmacy #[id number], [address], [facility], [place], [address], 02/13/2025 15:20:22 ranolazin e ER 500 mg tablet,ex tended release,1 2 hr 2024 025 [facility]/Pharmacy #[id number], [address], [facility], [place], [address], 02/13/2025 15:20:22 furosemid e 40 mg tablet 2024 025 [facility]/Pharmacy #[id number], [address], [facility], [place], [address], 02/13/2025 15:16:44 potassium chloride 40 mEq/15 mL oral liquid 2024 025 [facility]/Pharmacy #[id number], [address], [facility], [place], [address], 02/13/2025 15:16:44 gabapenti n 300 mg capsule [address]/Pharmacy #[id number], [address], [address], [place], [address], 12/01/2024 09:30:07 ramelteon 8 mg tablet 2024 025 [facility]/Pharmacy #[id number], [address], [address], [place], [address], 12/01/2024 09:30:10 promethaz ine 25 mg tablet 2024 025 [facility]/Pharmacy #[id number], [address], [address], [place], [address], 12/18/2024 05:01:36 folic acid 1 mg tablet 2024 025 [facility]/Pharmacy #[id number], [address], [address], [place], [address], 12/01/2024 09:30:09 pantopraz ole 40 mg tablet,de layed release [email or web address]/Pharmacy #[id number], [address], [address], [place], [address], 12/01/2024 09:30:07 Patient TargetsNo targets recorded. Patient [...] Address Organization Details Recorded Time Hand pain 48263292 Completed 202205/14/2024 NICOLE gustafson [place] [facility] 07[facility]21 Hand pain 03190634 Completed 202205/14/2024 [place] [facility] 07:55[facility]15 Low back pain 947066231 Completed 202305/14/2024 NICOLE gustafson, [facility] 5 18:20:21 Deep venous thrombosi s of lower extremity 596341110 Completed 202305/14/2024 at [facility] non occlusi ve. IVC placed due to no able to take blood thinner s. NICOLE gustafson, [facility] 5 07:54:08 Chronic pain 86880617 Active 2023 NICOLE CRANE null, [facility] 5 07:54:43 Hospital inpatient stay within past 30 days 63748684527 06 Completed 202305/14/2024 NICOLE gustafson, [facility] 5 07:55:38 History of cervical spine fusion 11973520158 Completed 202305/14/2024 NICOLE CRANE null, [facility] 5 07:55:29 Hypothyro idism 69773955 Active 2023 NICOLE CRANE null, [facility] 5 07:55:43 Depressiv e disorder 78771916 Active 2023 NICOLE CRANE null, [facility] 5 07:54:53 Gastroeso phageal reflux disease without esophagit is 236463931 Active 2023 NICOLE CRANE null, [facility] 5 07:55:09 Anxiety 81984981 Active 2023 NICOLE CRANE null, [facility] 5 07:54:40 Rib pain 362213385 Completed 202305/14/2024 NICOLE HAEFFNER null, [facility] 5 07:57:21 Nausea 469290610 Completed 202305/14/2024 NICOLE HAEFFNER null, [facility] 5 07:55:56 Peptic ulcer 50038093 Completed 202305/14/2024 NICOLE HAEFFNER null, [facility] 5 07:57:13 Pain in bilateral legs 76993672247 056878 Completed 202305/14/2024 NICOLE HADENISE null, [facility] 07:56:52 Pain in left lower limb 699188162 Completed 202305/14/2024 [facility] 07:57:01 Acquired dilation of bile duct 36776819401 92633 Completed 202305/14/2024 NICOLE HADENISE null, [facility] 5 07:54:30 Deep venous thrombosi s 589007231 Completed 202305/14/2024 NICOLE HALESLYFEDD null, [facility] 5 07:54:50 Anemia 811839744 Active 2023 NICOLE HAEFFNER null, [facility] 5 07:54:37 Pain in right arm 080482706 Completed 202305/14/2024 NICOLE HALESLYFEDD null, [facility] 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 Procedures Surgical History Date Name Laterality Status Provider Name and Address Organization Details Recorded Time 2024 fluoroscopic angiography of coronary artery with contrast and insertion of stent completed NICOLE CRANE [facility] 5 18:02:58 2024 plain X-ray of chest completed PAULETTE JASON [facility] 5 00:10:[address] of abdomen and pelvis completed PAULETTE JASON [facility] 5 00:12:33 2023 insertion of arterial stent completed JER GARCIA PA-C [address] [place], [address], [facility] 4 15:12:39 2023 colonoscopy completed DIANA GARCIA PA-C [address] [place], [address], [facility] 4 17:29:05 2023 esophagogastroduodenoscopy completed DIANA GARCIA PA-C [address] [place], [address], [facility] 4 17:08:01 2023 ultrasonography of liver completed NICOLE RCANE [facility] 4 16:43:05 2023 primary posterior decompression cervical cord and fusion completed DIANA GARCIA PA-C [address] [place], [address], [facility] 4 13:58:12 2023 insertion of inferior vena caval filter completed DIANA GARCIA PA-C [address] [place], [address], [facility] 4 13:58:28 2022 primary fusion of cervical spine completed DIANA GARCIA PA-C [address] [place], [address], [facility] 3 12:50:26 Imaging Results None recorded. Procedure Notes None recorded. Medical Equipment None Reported. Allergies Allergen ID Allergen Name Allergen Category Reaction Reaction Severity Criticality Documentation Date Start Date Code Code System Note Provider Name and Address Organization Details Recorded Time 95978 Benadryl medicatio n Not available Not available Not available 03/12/2023 02269 7 RxNorm NICOLE [facility]JESUSEDD [facility] 3 12:01:01 78033 amitripty line medicatio n Not available Not available Not available 03/12/2023 704 RxNorm NICOLE SCHAFFEREMORY [facility] 3 12:01:37 41140 tizanidin e medicatio n Not available Not available Not available 03/12/2023 19345 RxNorm NICOLEMynor DEJESUSEDD [facility], [facility] 3 12:08:21 55373 morphine medicatio n confusion Not available [facility] 09/02/2023 7052 RxNorm DIANA GARCIA PA-C [address] [place] [address], [address], [facility] 4 15:15:03 82157 venlafaxi ne medicatio n itching Not available Not available 02/13/2025 44556 RxNorm NICOLE DEJESUSEDD [facility] 5 14:50:24 02713 ibuprofen medicatio n Not available Not available [facility] 02/23/2025 5640 RxNorm Not Available [place] - External Data Service - prod 5 09:45:37 33456 acetamino phen medicatio n Not available Not available [facility] 02/23/2025 161 RxNorm Not Available [place] - External Data Service - prod 5 09:45:37 60507 prochlorp erazine medicatio n Not available [facility] 02/23/2025 8704 RxNorm Not Available [facility] External Data Service - [facility] 5 09:45:37 72252 diphenhyd ramine medicatio n Not available Not [facility] 02/23/2025 3498 RxNorm unrec ogniz ed react ion (text : Hyper activ e behav ior (find ing), code: 13958 000) (from exter nal sourc e) Not Available [facility] External Data Service - [facility] 5 09:45:37 60132 leflunomi de medicatio n Not available Not available [facility] 02/23/20252024 80304 RxNorm Not Available [facility] External Data Service [facility] 5 09:45:40 46248 sulfasala zine medicatio n Not available Not available [facility] 02/23/20252024 9524 RxNorm Not Available [facility] External Data Service [facility] 5 09:45:40 Medications Name Sig Start Date [...] Updated DateTime 5 163.83 cm 23.8 kg/m2 27505.5 2 g 99 % 76 /min 18 /min 97 [degF] 136/80 mm[Hg] [facility] 14:52:39 Date Recorded Body height Body mass index (BMI) Body weight Oxygen saturation Heart rate Respiratory rate Body temperature Systolic And Diastolic Provider Name and Address Organization Details Last Updated DateTime 5 163.83 cm 24.2 kg/m2 20441.7 1 g 94 % 82 /min 20 /min 96.4 [degF] 114/60 mm[Hg] Meera Kal [facility] 5 14:33:12 Date Recorded Body height Body mass index (BMI) Body weight Oxygen saturation Heart rate Respiratory rate Body temperature Systolic And Diastolic Provider Name and Address Organization Details Last Updated DateTime 5 163.83 cm 24.5 kg/m2 24957.8 9 g 95 % 80 /min 18 /min 97 [degF] 126/80 mm[Hg] [facility] 5 08:55:39 Date Recorded Body height Body mass index (BMI) Body weight Oxygen saturation Heart rate Respiratory rate Body temperature Systolic And Diastolic Provider Name and Address Organization Details Last Updated DateTime 5 163.83 cm 23.5 kg/m2 98324.3 4 g 95 % 70 /min 18 /min 97.9 [degF] 120/70 mm[Hg] [facility] 5 14:19:08 Date Recorded Body height Body mass index (BMI) Body weight Oxygen saturation Heart rate Respiratory rate Body temperature Systolic And Diastolic Provider Name and Address Organization Details Last Updated DateTime 5 163.83 cm 25.2 kg/m2 41187.2 6 g 96 % 78 /min 20 /min 98 [degF] 130/80 mm[Hg] [facility] 5 14:41:35 Social History Question Answer Notes LastModified by Organizat ion Details LastModified Time Tobacco Smoking Status Former Smoker Irene Naylor janay [facility] 09/05/2023 15:56:32 Which Illicit Or Recreational Drugs Have You Used? Leilani Information not available 11/02/2024 What Was The Date Of Your Most Recent Tobacco Screening? 11/02/2024 [email or web address] Information not available 11/02/2024 At What Age Did You Start Smoking Tobacco? 49 For 3 Weeks Only [email or web address] Information not available 11/02/2024 Sex: Unknown Functional Status Question Answer Note LastModified by Organizat ion Details LastModified Time Do you use any illicit or recreational drugs? Yes [email or web address] Information not available 11/02/2024 What is your level of alcohol consumption? None [email or web address] Information not available 11/02/2024 Mental Status None recorded. Family History Nothing Reported. Medical History No medical history recorded. Gynecological HistoryNo gynecological history recorded. Obstetrics History GPAL:G 0 P 0 0 0 0 Immunizations Vaccine Type Date Status Note Provider Nam e and Address Organization Details Recorded Time COVID-19, mRNA, LNP-S, PF, errol-sucrose, 30 mcg/0.3 mL 4 completed Gracie gustafson [facility] 11/12/2023 15:11:33 Influenza, split virus, trivalent, PF 4 completed Not Available [facility] 02/13/2025 14:28:04 Pneumococcal conjugate PCV20, polysaccharide UYT457 conjugate, adjuvant, PF 5 completed NICOLE CRANE [facility] 05/24/2024 16:17:51 Past Encounters Encounter ID Performer Location Encounter Start Date Encounter Closed Date Diagnosis/Indication Diagnosis SNOMED-CT Code Diagnosis ICD10 Code Diagnosis IMO Codes Diagnosis Note [id number] DIANA GARCIA PA-C [facility] ([facility]) [address] [place] [phone] 03/12/2023 11:51:10 03/15/2023 10:06:45 Pain of right hand 9849287965 19186 M79.641 Ganglion c yst of right wrist 3431005880 80314 M67.431 Acute urin albert tract infection 105231800 N39.0 Cervical spondylosis 387 515461 M47.812 C3/[address] Hung Feb 01 Chronic low back pain 27 4522609 M54.50 Gallstone pancreatitis 96967356 K85.10 Has enlarge CBD on CT 14.5 mm. GB is absent Administra tion of viral vaccine 57959797 Z23 Rheumatoid arthritis [address] Crabtree CCA form filled out during today's office visit [id number] DIANA GARCIA PA-C [facility] ([facility]) [address] [place] [phone] 04/15/2023 14:41:58 04/15/2023 16:52:11 Neuropathy 314791957 G62.9 Candidiasis of mouth 797 66314 B37.0 will tx with oral meds with suspiscion she may have some esophageal candidiasi s. Nausea and vomiting 1691999 R11.2 Iron defic iency anemia 89451355 D50.9 Hypothyroidism 90929114 E03.9 Rheumatoid arthritis [address] Crabtree CCA form filled out during today's office visit Low back pain 749142889 M54.50 [id number] DIANA GARCIA PA-C [facility] ([facility]) [address] [place] [phone] 5 05/19/2023 13:23:55 05/25/2023 12:39:49 History of cervical spine fusion 0926668247 101 Z98.1 2.2.24 Posterior C2-T1 with Dr. Hung (3 neck surgeries in total) Upper gastrointestinal bleeding 83485475 K92.89 scope 03/[address] Ruiz. Deep venou s thrombosis 698208843 I82.409 found 2.2.24 not a candidate for anticoat due to recent GI bleed so IVC placed. Generalize d anxiety disorder 10593242 F41.1 monitor Benzo requests. Has several rxes xanax, valium and clonazepam from [facility] PCP, Dr. Anabell house, and Dr. Gomes saw in SNF. Chronic pain syndrome 37 6879123 G89.4 Oxcontin 7.[address] Lisa. Recently increased to 10mg q 4 hrs from recent surgery. (temporary rx for [place] given waiting for Oxy to come in then d/margaret 2.8.24 KM) Anemia 074577276 D64.9 cbc, cmp on Wednesday [id number] Srinivasan Gomes DO [facility] ([facility]) [address] [place] [address] 5 05/25/2023 08:03:34 05/31/2023 12:19:42 Hospital inpatient stay within past 30 days 0000353447 106 Z76.89 History of cervical spine fusion 4410081856 101 Z98.1 Hypothyroidism 26913627 E03.9 Chronic pain 26904711 G8 9.29 Depressive disorder 3548 9007 F32.A Gastroesop hageal reflux disease without esophagitis 537126047 K21.9 [id number] Srinivasan Gomes DO [facility]) [address] [place] [address] 5 06/01/2023 09:36:24 06/09/2023 06:46:40 Anxiety 21840546 F41.9 Chronic pain 48965387 G8 9.29 History of cervical spine fusion 8546231322 101 Z98.1 [id number] Srinivasan Gomes DO [facility] ([facility]) [address] [place] [address] 5 06/08/2023 08:37:13 06/10/2023 16:36:08 History of cervical spine fusion 2480275399 101 Z98.1 Anxiety 21551280 F41.9 Chronic pain 03998415 G8 9.29 Depressive disorder 3548 9007 F32.A [id number] Srinivasan Gomes DO [facility]) [address] [place] [address] 5 06/15/2023 09:21:43 06/28/2023 15:09:18 History of cervical spine fusion 6810470743 101 Z98.1 Low back pain 750189119 M54.50 Depressive disorder 3548 9007 F32.A [id number] Ulysses Rivera MD [facility] ([facility]) [address] [place] [phone] 06/24/2023 12:59:38 06/27/2023 18:03:54 Anxiety 34114801 F41.9 Refill provided for medication . Rib pain 616485722 R07.8 1 Patient has pain along her [...] over the next 4 to 8 weeks. [id number] DIANA GARCIA PA-C [facility] ([facility]) [address] [place] [id number] 5 07/02/2023 09:48:49 07/02/2023 10:43:55 Spinal stenosis in cervical region 52624402 M48.02 Hospital i npatient stay within past 30 days 1052481765 106 Z76.89 Generalize d anxiety disorder 32179537 F41.1 monitor Benzo requests. Has several rxes xanax, valium and clonazepam from [facility]CP, Dr. Hung ortho, and Dr. Gomes saw in SNF. Opioid dependence 884190 00 F11.20 post cervical surgery 06/05. Getting in to Dr. Hung. [id number] DIANA GARCIA PA-C [facility] ([facility]) [address] [place] [id number] 08/03/2023 15:31:05 08/07/2023 08:56:13 Peptic ulcer 87020715 K27.9 EGD 11.1.23 neg H.pylori then Deep venou s thrombosis 605558753 I82.409 found 2.2.24 not a candidate for anticoat due to recent GI bleed so IVC placed. Abdominal pain 80730356 R10.9 Anemia 977697084 D64.9 Chronic pain 40689938 G8 9.29 dose drops from 600 to 300 to see if helps with her nausea [id number] DIANA GARCIA PA-C [facility] ([facility]) [address] [place] [id number] 5 09/02/2023 14:20:34 09/02/2023 17:34:26 Abdominal pain 31410826 R10.9 since pt is in the worst pain of her life I recommend she go to ER to get work up of her abd pain and get pain control for her chronic cervical stenosis with recent surgery that so far has not been helpful. 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 94014626 M48.02 [id number] MALIK BRUSH [facility] ([facility]) [address] [place] [id number] 5 09/05/2023 15:44:16 09/06/2023 13:27:43 Middle ear effusion 1090862477 H74.8X9 Discussed use of antibiotic the full 7 days. May take tylenol/mo rima for discomfort .Return if you develop worsening pain, drainage from the ear or concerns arise. Vertigo 068150497 R42 [id number] DIANA GARCIA PA-C [facility] ([facility]) [address] [place] [phone] 5 09/20/2023 11:54:13 09/20/2023 16:12:14 [id number] Williams Valerio DO [facility] ([facility]) [address] [place] [phone] 5 09/20/2023 12:40:32 09/20/2023 13:56:13 Anxiety 71015059 F41.9 Acute sero us otitis media of bilateral ears 5441782164 611979 H65.03 [id number] DIANA GARCIA PA-C [facility] ([facility]) [address] [place] [id number] 5 09/22/2023 11:55:06 09/23/2023 12:29:54 [id number] Srinivasan Gomes DO [facility] ([facility]) [address] [place] [phone] 5 10/05/2023 08:21:33 10/06/2023 08:39:15 [id number] DIANA GARCIA PA-C [facility] ([facility]) [address] [place] [id number] 5 10/06/2023 12:17:06 10/20/2023 08:37:19 Pain in right arm 813078621 M79.[address] HENRY, MRI ,US Anemia 131429254 D64.9 HEMOCCULT x3 due to persistant anemia. GI appt TOMORROW in [facility] Right uppe r quadrant pain 447581159 R10.11 [id number] CLAIRE KILLIAN APRN [facility] ([facility]) [address] [place] [address] 5 10/09/2023 14:01:50 10/09/2023 14:43:26 Dysuria 80415582 R30.0 Acute urin albert tract infection 988191143 N39.0 [id number] DIANA GARCIA PA-C [facility] ([facility]) [address] [place] [address] 5 10/13/2023 14:26:50 11/02/2023 17:06:17 Nausea and vomiting 37546333 R11.2 will see what GI finds on scopes Anemia 882197073 D64.9 INJECTIFER 750MG X 2, Acute urin albert tract infection 082253824 N39.0 MACROBID 100MG BID [id number] DIANA GARCIA PA-C [facility] ([facility]) [address] [place] [id number] 5 10/20/2023 11:55:15 10/20/2023 14:08:06 Low back pain 133666610 M54.50 d/c to home with current meds and out pt ordersF/U with me in office next week. Constipation 96674401 K5 9.00 Obstructio n of common bile duct 445071965 K83.1 thickening of CMB no CT and U/S. intermitan t emesis with white stools. [id number] DIANA GARCIA PA-C [facility] ([facility]) [address] [place] [phone] 5 10/26/2023 15:17:52 10/26/2023 17:51:16 Peripheral arterial occlusive disease 847615190 I73.9 Left common femoral artery occluded on CT scan with MADONNA .7 on the LeftHas an IVC filter in place.Toda y no evidence of critical limb ischemia. To ER if increased pain/numbn ess in leg, change in temperatur e or color Deep venou s thrombosis of lower extremity 583684879 I82.409 thrombus in R common femoral vein . IVC filter in place. Pt with recent GI bleed.Not able to anticoagul ate at this time. Iron defic iency anemia 67042936 D50.9 INJECTIFER 750MG X 2 doses 7 days apart.Hgb 8.3 at [facility] 724. recent EGD/colono scopy 10.22.23 with lavern Blanchard. Acute gastrointestinal hemorrhage 05582750 K92.2 cauterizat ion in small intestine on last EGD? per waiting on notes. Chronic pain 92873136 G8 9.29 Chronic neck pain 732553 3292 107 M54.2 Hospital i npatient stay within past 30 days 3482616952 106 Z76.89 meds reconciled . non changed today last ER records CT and labs reviewedSp juanita with Faith Morris MA and she is to fax us her records and we are to fax her last CT, U/S liver and labs. [id number] DIANA GARCIA PA-C [facility] ([facility]) [address] [place] [id number] 5 11/03/2023 14:57:45 11/03/2023 17:25:44 Iron deficiency anemia 27043508 D50.9 INJECTIFER 750MG X 2 doses 7 days apart.Hgb 8.3 at [facility] 10.24.23. recent EGD/colono scopy 10.22.23 with lavern Blanchard. Dysuria 79048795 R30.0 Tinnitus o f vascular origin 177706148 H93.A9 Deep venou s thrombosis of lower extremity [id number] I82.409 thrombus in R common femoral vein . IVC filter in place. Pt with recent GI bleed.Not able to anticoagul ate at this time. Peripheral arterial occlusive disease 143117021 I73.9 Left common femoral artery occluded on CT scan with MADONNA .7 on the LeftHas an IVC filter in place.Toda y no evidence of critical limb ischemia. To ER if increased pain/numbn ess in leg, change in temperatur e or color [id number] DIANA GARCIA PA-C [facility] ([facility]) [address] [place] [address] [phone] 5 11/09/2023 13:55:02 12/14/2023 07:04:25 Acquired cystic dilatation of common bile duct 873913231 K83.5 Iron defic iency anemia 46440555 D50.9 Set up for injectafer on Thurs for first dose.Hgb 8.3 at [facility] 724. recent EGD/colono scopy 10.22.23 with lavern Blanchard. [id number] DIANA GARCIA PA-C [facility] ([facility]) [address] [place] [address] [phone] 5 11/10/2023 12:49:56 11/10/2023 17:31:37 [id number] DIANA GARCIA PA-C [facility] ([facility]) [address] [place] [address] [phone] 5 11/25/2023 14:58:08 12/14/2023 07:10:16 Deep venous thrombosis of lower extremity 004750082 I82.409 thrombus in R common femoral vein . IVC filter in place. Pt with recent GI bleed Hgb are rising.I will have her to a hemoccult card. If Hgb going up and hemoccult Neg I think if ok with vascular, it would be time to try anticoagul ation with close monitoring of cbcs Iron defic iency anemia 83048754 D50.9 Set up for injectafer Hgb 8.3 at [facility] 10.24.23. recent EGD/colono scopy 10.22.23 with lavern Blanchard. [id number] DIANA GARCIA PA-C [facility] ([facility]) [address] [place] [address] [phone] 5 12/14/2023 15:13:11 12/14/2023 17:27:18 Anemia 293836539 D64.9 Had one iron infusion needs to schedule her next one. Deep venou s thrombosis 271304052 I82.409 started Eliquis 8..24 Restless l egs syndrome 60674911 G25.81 Hypothyroidism 23034258 E03.9 [id number] DIANA GARCIA PA-C [facility] ([facility]) [address] [place] [address] [phone] 5 01/11/2024 11:50:16 01/17/2024 09:34:21 Cervical radiculitis 10318785 M54.12 Pain of ri ght shoulder joint 4269703682 0509302 M25.511 Peripheral vascular disease 784393034 I73.9 Dr. Dawn moreno managing her arterial disease on the L leg, her chronic DVT on the R leg and her richelle filter.05.05 he still wants her on low dose Eliquis Iron defic iency anemia 62991098 D50.9 Her injectafer is helping Last HGb 10.3 at [facility] 01/06/24.re cent EGD/colono scopy 10.22.23 with lavern Blanchard. fixed upper GI bleed. Repeat eGD 2 months later was resolved. Hospital i npatient stay within past 30 days [id number] 106 Z76.89 meds reconciled . her eliquis was restarted. [id number] Ulysses Rivera MD [facility] ([facility]) [address] [place] [address] [phone] 5 01/20/2024 16:13:53 01/20/2024 16:54:14 [id number] DIANA GARCIA PA-C [facility] ([facility]) [address] [place] [address] [phone] 5 02/08/2024 14:21:48 02/08/2024 15:38:37 Hematemesis 3283194 K92.0 Peripheral vascular disease 002860479 I73.9 Dr. Dawn moreno managing her arterial disease on the L leg, her chronic DVT on the R leg and her richelle filter.keron faith stented her L left. check right leg. no clots. left filter in place and wants her on the Eliquis. Pneumonia 775559718 J18. 9 Hospital i npatient stay within past 30 days 0155358505 106 Z76.89 meds reconciled . her eliquis was restarted. Iron defic iency anemia 75999036 D50.9 Her injectafer is helping Last HGb 10.3 at [facility] 01/06/24.re cent EGD/colono scopy 10.22.23 with lavern Blanchard. fixed upper GI bleed. Repeat eGD 2 months later was resolved. [id number] DIANA GARCIA PA-C [facility] ([facility]) [address] [place] [address] [phone] 5 03/14/2024 12:48:46 04/04/2024 12:28:10 Anemia 652629291 D64.9 Had one iron infusion needs to schedule her next one. Acquired d ilation of bile duct 8368207336 121762 K83.8 Peripheral vascular disease 966850524 I73.9 Dr. Dawn moreno managing her arterial disease on the L leg, her chronic DVT on the R leg and her richelle filter.keron faith stented her L left. check right leg. no clots. left filter in place and wants her on the Eliquis. 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 96143724 M48.02 [id number] DIANA GARCIA PA-C [facility] ([facility]) [address] [place] [address] [phone] 5 04/11/2024 11:03:08 04/13/2024 12:31:09 Stasis dermatitis of lower limb due to chronic peripheral venous hypertension 321576216 I87.399 Drug-induc ed constipation 75548353 K59.03 Edema 693029366 R60.9 Idiopathic peripheral neuropathy 61322348 G60.9 Hypothyroidism 20456336 E03.9 [id number] DIANA GARCIA PA-C [facility] ([facility]) [address] [place] [address] [phone] 5 04/19/2024 14:34:02 04/24/2024 09:23:08 Obstruction of common bile duct 675984204 K83.1 [address] no CT and U/S. intermitan t emesis with white stools. Rheumatoid arthritis [address] Crabtree [employer] form filled out during today's office visit Opioid dependence 505336 00 F11.20 post cervical surgery 06/05. Getting in to Dr. Hung. Anemia 744269510 D64.9 Had one iron infusion needs to schedule her next one. Hypothyroidism 50813608 E03.9 Anxiety disorder 4257977 06 F41.9 Chronic pain syndrome 37 8772872 G89.4 Oxcontin 7.[address] Lisa. Recently increased to 10mg q 4 hrs from recent surgery. (temporary rx for [place] given waiting for Oxy to come in then d/margaret 2.8.24 KM) Peripheral vascular disease 858951205 I73.9 Dr. Dawn moreno managing her arterial disease on the L leg, her chronic DVT on the R leg and her richelle filter.keron faith stented her L left. check right leg. no clots. left filter in place and wants her on the Eliquis. [id number] DIANA GARCIA PA-C [facility] ([facility]) [address] [place] [address] [phone] 5 05/24/2024 14:51:15 05/24/2024 16:00:13 Chronic neck pain 7902408202 107 M54.2 getting nerve stim with DR. Grider in Jun 06 Atopic dermatitis 976123 01 L20.9 Obstructio n of common bile duct 962245656 K83.1 thickening of CMB no CT and U/S. intermitan t emesis with white stools. Administra tion of pneumococcal vaccine 54949341 Z23 Edema 311290970 R60.9 Restless l egs syndrome 64423149 G25.81 I looked up meds that can cause formicatio n and her requip is listed which she is on very high doses of. She agrees to back down from tid to bid. Chronic insomnia 7743613 04 F51.04 [id number] DIANA GARCIA PA-C [facility] ([facility]) [address] [place] [address] [phone] 5 06/13/2024 12:25:24 06/16/2024 11:56:31 Atopic dermatitis 15166578 L20.9 lower legs. likely from venous stasus Restless l egs syndrome 06117175 G25.81 I looked up meds that can cause formicatio n and her requip is listed which she is on very high doses of. She agrees to back down from 5 mg tid to bid.06/13/24 drop her from 5 mg bid to 3 mg po bid. [id number] DIANA GARCIA PA-C [facility] ([facility]) [address] [place] [address] [phone] 5 07/06/2024 14:47:05 07/10/2024 15:08:00 Peripheral venous insufficiency 34459275 I87.2 Lavern Tate Chronic neck pain 798853 0364 107 M54.2 getting nerve stim with DR. Grider Chest pain 92074453 R07. 9 Hx PAD. will refer to cardiology for consult and testing to see of she has CAD and stable angina [id number] MALIK BRUSH [facility] ([facility]) [address] [place] [address] [phone] 5 07/24/2024 11:36:22 07/24/2024 14:50:48 Wheezing 27892332 R06.2 Discussed use of prescribed medication s. VSS. If you develop new/worsen ing s/s then return for re-evaluat ion. [id number] DIANA GARCIA PA-C [facility] ([facility]) [address] [place] [address] [phone] 5 08/23/2024 14:47:46 08/23/2024 15:42:54 Acute thoracic back pain 138581980 M54.6 95435933 30 min spent with pt Chronic neck pain 631633 9832 107 M54.2 G89.29 635278 getting nerve stim with DR. Madison Grider tomorrow 08/24/24 Gastrointe stinal hemorrhage 90777775 K25.4 18743253 seeing GI next week for scopy and ERCP Dr. Chava puckett. [id number] DIANA GARCIA PA-C [facility] ([facility]) [address] [place] [address] [phone] 5 11/02/2024 14:26:10 11/02/2024 16:01:55 Cataplexy 59041045 G47.411 07804 ok to continue Effexor. Adverse re action to drug 32435013 T50.905D 03056679 she may be trying to stop her chronic use of baclofen to fast. 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 Will slowly taper her off her gabapentin as wellI suspect pt has histrionic personalit y disorder. REviewed her hospital records and they did a very good job of ruling out any physcial cause of her jerking.It would be ideal to get psych involved to help sort out her symptoms. Post-disch arge follow-up 799591084 Z09 030417 Anemia due to blood loss 508871229 D50.0 [address]82 recent capsule endoscopy. Dr. Larsen is working up [id number] DIANA GARCIA PA-C [facility] ([facility]) [address] [place] [address] [phone] 5 12/01/2024 08:51:12 12/01/2024 09:46:50 Gastroesophageal reflux disease 677506313 K21.9 99887492 Primary insomnia 0053578 F51.01 05633 Peptic ulcer 59641600 K2 7.9 Chronic pain 62107744 G8 9.29 Lymphedema 209841718 I89 .0 86391 Chronic neck pain 471714 3439 107 M54.2 G89.29 0209790 getting nerve stim with DR. Madison Grider tomorrow 08/24/24 Vascular insufficiency 67025103 I87.[id number] Tate manages looking to do some venous repair.Enc ouraged compressio n stockings and elevation until she can get some wraps. [id number] DIANA GARCIA PA-C [facility] ([facility]) [address] [place] [address] [phone] 5 01/11/2025 14:06:00 01/12/2025 08:44:46 Multi vessel coronary artery disease 977228097 I25.10 6450760 recent stents x 2 back to back. 01/04 need one year of dual plt asa and plavix therapy for 1 yr. Post-disch arge follow-up 474798492 Z09 697312 Exposure t o SARS-CoV-2 915266416 Z20.822 3470428406 pt left without being tested. Upper gastrointestinal bleeding 29016325 K92.2 750382 scope 03/[address] Ruiz. Scope 01/05/25 at [facility] small area of bleeding. needs plavix and ASA due to stent on 12/27/24 [id number] DIANA GARCIA PA-C [facility] ([facility]) [address] [place] [address] 02/13/2025 14:26:45 02/13/2025 15:27:07 Edema 277232172 R60.9 Upper gastrointestinal bleeding 33948739 K92.2 481868 scope 03/[address] Ruiz. Scope 01/05/25 at [facility] small area of bleeding. needs plavix and ASA due to stent on 12/27/24 Stented co ronary artery 675550531 I25.10 Z95.5 72559572 Health Concerns Section Related Observation LastModified by Organization Detai ls LastModified Time None Recorded Concern Status LastModified by Organization Details LastModified Time None Recorded Advance Directives Directive None Recorded Payers Insurance Date Sequence Insurance Name Policy Number Policy Rivera Covered Member ID Rivera Member ID Guarantor Name 02/10/2025 [place] - [place] - [facility] (MEDICARE) Darinda S Ranew [id number] Darinda Ranew 02/24/2025 2 [employer] (MEDICARE SUPPLEMENT) Darinda Ranew [id number] Darinda Ranew 02/10/2025 1 [place] Darinda S Ranew [id number] Darinda Ranew Notes Date Note Type Note Provider [...] reportswalking,sweeping,mop ping,bathing,dressing, andclimbing stairs. HOSPITAL FOLLOW UP [facility], HAS AN APPT FOR COLONOSCOPY ON 09-01-24 IN [place], WORE BRACE FROM DR HENRY AND FELT SOMETHIING POP IN NECK NOW NECK HURTS.JUST FINISHED ANTIBIOTICS FROM THEM DOXY? seeing vascular 08/30seeing GI to check on clip in [place] 09/01 and be scoped again. lavern GARCIA PA-C [address] [place], [address], [facility] 08/23/2024 15:38:13 5 text/html [place] f/u for jerking and passing outshe started the jerking after starting venlafaxine. she had been in [facility] for 13 days just prior to her [...] saw a espophagous Pt DIANA GARCIA PA-C [address] [place], [address], [facility] 11/07/2024 21:53:33 5 text/html EdemaReported by PatientHPIFor [...] hx legs. Hx DVT with richelle filter 2. due to chronic GI bleedArterial stent in L leg 01/2024 Dr. Rola Puckett. 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 Pelayo GI appt 01.04 for GI bleed f/u [facility] hospital stay: Needed a blood transfusion her in [place] before she went to [place]. Also had UTI and pneumonia at [facility] Was in hospital in [place] and had an upper GI bleed. Got a scope Hgb was 11. Has not been taking her EffexorBack down on her baclofen to BID and says she just taking her OXy BID as well and gabapentin BID. Much less shakingSays her shaking went almost all the way away after getting her blood transfusion DIANA GARCIA PA-C [address] [place], [address], [facility], Job 12/01/2024 09:40:36 5 text/html jr chest pain [...] they saw no pneumonia DIANA GARCIA PA-C [address] [place], [address], [facility] 01/11/2025 18:13:05 5 text/html EdemaReported by PatientHPIFor [...] her GI doc. 10.28 DIANA GARCIA PA-C [address] [place], [address], [facility] 02/13/2025 15:25:18 OBGyn Episode No OBEpisode recorded.
--- NOTE | 2025-03-06 02:41 | W.ED.HA ---
HPI - Headache General: Chief Complaint: Headache Stated Complaint: head pain Time Seen by Provider: 03/06/25 02:30 History of Present Illness: 70-year-old female who presents to the emergency room when I first came to the room she is sleeping is very difficult to arouse. I woke her up she tells me she has not slept in several days that she has had severe pain she relates pain to her head and into her neck. Denies chest pain or abdominal pain. EMS reported there is an open bottle of oxycodone nearby when they arrived. Patient admits to having taken oxycodone earlier states she needs something stronger. She has a history of chronic pain particularly chronic neck pain. Patient denies any new trauma or falls. Associated symptoms: Deny chest pain, fever(s) or rash Related Data Home Medications ?Medication ?Instructions ?Recorded ?Confirmed fluticasone propionate 50 1 spray intranasal BID PRN 09/27/23 02/14/25 mcg/actuation nasal allergies spray,suspension gabapentin 300 mg capsule 300 mg PO TID 09/27/23 02/14/25 oxycodone 10 mg tablet 10 mg PO Q8H PRN Pain 12/29/23 02/14/25 ramelteon 8 mg tablet 8 mg PO BEDTIME 12/24/24 02/14/25 alprazolam 0.25 mg tablet (Xanax) 0.5 mg PO DAILY PRN anxiety 12/27/24 02/14/25 promethazine 25 mg tablet 25 mg PO Q6H PRN Nausea 01/03/25 02/14/25 lidocaine 5 % topical patch 1 patch topical [id number] PRN Pain 01/05/25 02/14/25 aspirin 81 mg tablet,delayed 81 mg PO DAILY 02/14/25 02/14/25 release atorvastatin 40 mg tablet 40 mg PO BEDTIME 02/14/25 02/14/25 folic acid 1 mg tablet 1 mg PO DAILY 02/14/25 02/14/25 furosemide 20 mg tablet 40 mg PO QAM 02/14/25 02/14/25 nitroglycerin 0.4 mg sublingual See Rx Instructions .Route .COMPLEX 02/14/25 02/14/25 tablet Previous Rx's ?Medication ?Instructions ?Recorded Bone growth stimulator #1 ea 01/22/23 Bone growth stimulator #1 ea 02/05/23 tens unit for cervical #1 ea 12/16/23 insulin syringes (disposable) 1 mL #25 ea 05/30/24 ropinirole 5 mg tablet 5 mg PO BID #270 tabs 10/25/24 baclofen 10 mg tablet 5 mg (1/2 x 10 mg) PO Q12H PRN 11/07/24 Muscle Spasm #30 tabs clopidogrel 75 mg tablet 75 mg PO DAILY 30 days #30 tabs 12/26/24 pantoprazole 40 mg tablet,delayed 40 mg PO Q12H 30 days #60 tabs 12/26/24 release (Protonix) potassium chloride 20 mEq 20 meq PO DAILY #30 tabs 12/26/24 tablet,extended release ranolazine 500 mg tablet,extended 500 mg PO BID #180 tabs 01/01/25 release,12 hr albuterol sulfate 90 mcg/actuation 2 inh inhalation Q4H PRN shortness 01/03/25 aerosol inhaler of breath or wheezing #18 grams sucralfate 1 gram tablet 1 g PO AC #90 tabs 01/07/25 prednisone 20 mg tablet See Rx Instructions PO DAILY #30 01/18/25 tabs adalimumab 40 mg/0.4 mL 40 mg (0.4 mL) SUBCUT Q14D #2 ea 02/07/25 subcutaneous syringe kit (Humira(CF)) levothyroxine 125 mcg tablet 125 mcg PO DAILY #30 tabs 02/13/25 Allergies Allergy/AdvReac Type Severity Reaction Status Date / Time venlafaxine (From Effexor) Allergy Severe ADR-Agitate Verified 01/18/25 12:50 d ibuprofen Allergy Unknown ADR-Anxiety Verified 01/18/25 12:50 tizanidine Allergy Unknown Unknown Verified 01/18/25 12:50 acetaminophen Allergy ADR-Anxiety Verified 01/18/25 12:50 amitriptyline Allergy ADR-Agitate Verified 01/18/25 12:50 d diphenhydramine (From Allergy ADR-Agitate Verified 01/18/25 12:50 Benadryl) d morphine Allergy ADR-Halluci Verified 01/18/25 12:50 nating prochlorperazine (From Allergy Unknown Verified 01/18/25 12:50 Compazine) leflunomide AdvReac Intermediate GI adverse Verified 01/18/25 12:50 reactions sulfasalazine AdvReac Intermediate ADR-Nausea Verified 01/18/25 12:50 and acid reflux Review of Systems Const: Denies: fever(s) or chills Card: Denies: chest pain Resp: Denies: dyspnea GI: Denies: abdominal pain : Denies: dysuria, urinary frequency or urinary urgency Musc: Reports: neck pain; Denies: back pain Skin/Breast: Denies: rash Neuro: Reports: headache(s) PFSH ED PFSH: Medical History Rheumatoid arthritis flare Coronary artery disease Pneumonia DVT (deep venous thrombosis) Acute GI bleeding History of deep vein thrombosis GERD (gastroesophageal reflux disease) Pre-operative clearance Acute anemia Hematoma complicating a procedure Cervical adenopathy GI bleed Osteoarthritis, shoulder Cervical spondylosis with myelopathy GERD with esophagitis Allergic rhinitis due to allergen RLS (restless legs syndrome) Substance or medication-induced sleep disorder, insomnia type Anxiety and depression High risk medication use Seropositive rheumatoid arthritis of multiple sites Extrapyramidal and movement disorder CKD (chronic kidney disease) stage 3, GFR 30-59 ml/min Lung nodule, solitary Prediabetes Hyperlipidemia Iron deficiency anemia Hypothyroidism Surgical History S/P insertion of IVC (inferior vena caval) filter Status post cervical spinal fusion History of cholecystectomy History of appendectomy History of delivery History of hysterectomy with bilateral oophorectomy History of ankle surgery left Previous back surgery Social History Smoking and tobacco/nicotine status: former use of tobacco/nicotine Quit status (tobacco/nicotine): has quit using Year quit tobacco: 2009 Former quit date comment: Smoked for 9 months Alcohol intake: current Alcohol intake frequency: holidays/special occasions only Substance/Drug Use: never Additional social history: Patient tells me that after her accident she is chronically on oxycodone 10 mg 3 times daily. She is recently full code on 12/24/2024 admission Physical Exam Const: COMMON NORMALS: no acute distress GENERAL APPEARANCE: cooperative and comfortable ORIENTATION/CONSCIOUSNESS: Yes awake, Yes oriented to person, Yes oriented to place and Yes oriented to time HENMT: COMMON NORMALS: normocephalic, atraumatic and hearing grossly normal bilaterally HEAD & SCALP: normocephalic and atraumatic Resp: COMMON NORMALS: normal respiratory effort, No retractions, No use of accessory muscles and clear to auscultation bilaterally AUSCULTATION: clear to auscultation bilaterally Cardio: COMMON NORMALS: regular rate, regular rhythm and No murmurs present (Cardio) RATE: regular rate RHYTHM: regular rhythm GI: COMMON NORMALS: Soft to palpation and No hepatosplenomegaly present AUSCULTATION: Yes normoactive bowel sounds PALPATION: Yes Soft to palpation, No Tenderness to palpation present (GI), No Guarding due to palpation present (GI) and Yes No hepatosplenomegaly present Extremity: COMMON NORMALS: normal to inspection, capillary refill normal, no clubbing, cyanosis or edema, no calf tenderness and no pedal edema Neuro: SENSORIUM/ORIENTATION: Yes oriented to person, Yes oriented to place and Yes oriented to time OTHER: No focal neurologic deficits no ataxia. No facial asymmetry Skin: COMMON NORMALS: no rashes or lesions noted GENERAL SKIN EXAM: no rashes or lesions noted Course Vital Signs: Vital signs: Vital Signs Temperature 97.7 F 03/06/25 02:28 Pulse Rate 52 L 03/06/25 03:30 Respiratory Rate 20 H 03/06/25 02:28 Blood Pressure 125/85 03/06/25 03:30 Pulse Oximetry 93 03/06/25 03:30 Oxygen Delivery Me thod Room Air 03/06/25 02:28 MDM - Headache Medical Decision Making Medical decision making Social determinants: I reviewed the patient's medical record. I reviewed the patient's current home meds Alternate historians: Differential diagnosis Lab Review: Imaging: Assessment of risk: Level of risk: Hospitalization considerations: Reexamination: Assessment and plan: Medical Records I reviewed the patient's medical records. Lab Data I reviewed the patient's lab results. 03/06/25 04:10 03/06/25 04:10 Laboratory Results WBC 3.32 10^3/uL (3.29-11.43) 03/06/25 04:10 RBC 3.81 10^6/uL (3.85-5.65) L 03/06/25 04:10 Hgb 10.40 g/dL (11.27-16.99) L 03/06/25 04:10 Hct 32.6 % (36-47) L 03/06/25 04:10 MCV 85.6 fl (85-98) 03/06/25 04:10 MCH 27.3 pg (27-33) 03/06/25 04:10 MCHC 31.9 g/dL (30-55) 03/06/25 04:10 RDW 13.9 % (12.1-15.1) 03/06/25 04:10 Plt Count 271 10^3/cmm (157-399) 03/06/25 04:10 MPV 9.8 fL (7.4-10.4) 03/06/25 04:10 Neut % (Auto) 32.6 % 03/06/25 04:10 Lymph % (Auto) 36.1 % 03/06/25 04:10 [place] % (Auto) 19.3 % 03/06/25 04:10 Eos % (Auto) 11.1 % 03/06/25 04:10 Baso % (Auto) 0.9 % 03/06/25 04:10 Neut # (Auto) 1.08 10^3/uL (1.8-7.7) L 03/06/25 04:10 Lymph # (Auto) 1.2 10^3/uL (0.8-4.8) 03/06/25 04:10 [place] # (Auto) 0.6 10^3/uL (0.2-0.9) 03/06/25 04:10 Eos # (Auto) 0.4 10^3/uL (0.0-0.8) 03/06/25 04:10 Baso # (Auto) 0.0 10^3/uL (0.0-0.1) 03/06/25 04:10 Nucleated RBC % (auto) 0 % 03/06/25 04:10 Nucleated RBCs # 0.0 /100WBC 03/06/25 04:10 Sodium 140 mmol/L (136-145) 03/06/25 04:10 Potassium 3.1 mmol/L (3.5-5.1) L 03/06/25 04:10 Chloride 98 mmol/L (98-107) 03/06/25 04:10 Carbon Dioxide 31 mmol/L (22-29) H 03/06/25 04:10 Anion Gap 14.1 (5-19) 03/06/25 04:10 BUN 37 mg/dL (8-23) H 03/06/25 04:10 Creatinine 1.8 mg/dL (0.5-0.9) H 03/06/25 04:10 GFR Calculation Not Reportable 03/06/25 04:10 Glucose 116 mg/dL (65-115) H 03/06/25 04:10 Calculated Osmolality 300 mOsm/kg (285-295) H 03/06/25 04:10 Calcium 9.6 mg/dL (8.5-10.5) 03/06/25 04:10 Total Bilirubin 0.4 mg/dL (0.15-1.2) 03/06/25 04:10 AST 18 U/L (0-32) 03/06/25 04:10 ALT 7 U/L (0-33) 03/06/25 04:10 Alkaline Phosphatase 171 U/L (35-105) H 03/06/25 04:10 Total Protein 9.0 g/dL (6.6-8.7) H 03/06/25 04:10 Albumin 4.4 g/dL (3.5-5.2) 03/06/25 04:10 Globulin 4.6 g/dL (1.3-4.6) 03/06/25 04:10 Urine Color Yellow (Yellow) 03/06/25 03:22 Urine Appearance Clear (CLEAR) 03/06/25 03:22 Urine pH 6.5 (5-7) 03/06/25 03:22 Ur Specific [place] 1.007 (1.005-1.030) 03/06/25 03:22 Urine Protein Negative (Negative) 03/06/25 03:22 Urine Glucose (UA) Negative (Normal) 03/06/25 03:22 Urine Ketones Negative (Negative) 03/06/25 03:22 Urine Blood Negative (Negative) 03/06/25 03:22 Urine Nitrate Negative (Negative) 03/06/25 03:22 Urine Bilirubin Negative (Negative) 03/06/25 03:22 Urine Urobilinogen 0.2 mg/dL (Negative) 03/06/25 03:22 Ur Leukocyte Esterase Negative (Negative) 03/06/25 03:22 Urine RBC 0-2 /hpf (0-2) 03/06/25 03:22 Urine WBC 0-5 /hpf (0-5) 03/06/25 03:22 Ur Squamous Epith Cells 0-5 /hpf (0-5) 03/06/25 03:22 Amorphous Sediment Not Reportable 03/06/25 03:22 Urine Bacteria 3+ /hpf (NONE) H 03/06/25 03:22 Hyaline Casts 0.81 /lpf 03/06/25 03:22 Urine Opiates Screen Positive ng/mL (Negative) H 03/06/25 03:22 Ur Barbiturates Screen Negative ng/mL (Negative) 03/06/25 03:22 Ur Phencyclidine Scrn Negative ng/mL (Negative) 03/06/25 03:22 Ur Amphetamines Screen Negative ng/mL (Negative) 03/06/25 03:22 U Benzodiazepines Scrn Positive ng/mL (Negative) H 03/06/25 03:22 Urine Cocaine Screen Negative ng/mL (Negative) 03/06/25 03:22 U Marijuana (THC) Screen Positive ng/mL (Negative) H 03/06/25 03:22 No radiology studies performed this visit EKG Data EKG 1: I personally reviewed and interpreted this EKG as follows: Discharge Plan Discharge Patient Disposition: Home Clinical Impression: Headache, Chronic neck pain, Anemia, Chronic pain Condition: Stable Prescriptions: No Action (DME) tens unit for cervical See Rx Instructions .Route .MEDSUPPLY Qty: 1 0RF Rx Instructions: As directed prednisone 20 mg tablet See Rx Instructions PO DAILY Qty: 30 1RF Rx Instructions: Take 1 or 2 tablets daily up to 7 days as needed for joint pain flare. (DME) Bone growth stimulator See Rx Instructions .Route .MEDSUPPLY Qty: 1 0RF Rx Instructions: As directed (DME) Bone growth stimulator See Rx Instructions .Route .MEDSUPPLY Qty: 1 0RF Rx Instructions: As directed (DME) insulin syringes (disposable) 1 mL syringe See Rx Instructions .ROUTE .MEDSUPPLY Qty: 25 3RF Rx Instructions: As directed Humira(CF) 40 mg/0.4 mL syringe kit 40 mg SUBCUT Q14D Qty: 2 5RF levothyroxine 125 mcg tablet 125 mcg PO DAILY Qty: 30 0RF oxycodone 10 mg tablet 10 mg PO Q8H PRN (Reason: Pain) ropinirole 5 mg tablet 5 mg PO BID Qty: 270 0RF ramelteon 8 mg tablet 8 mg PO BEDTIME clopidogrel 75 mg tablet 75 mg PO DAILY 30 Days Qty: 30 0RF pantoprazole [Protonix] 40 mg tablet,delayed release (DR/EC) 40 mg PO Q12H 30 Days Qty: 60 0RF potassium chloride 20 mEq tablet extended release 20 meq PO DAILY Qty: 30 0RF promethazine 25 mg tablet 25 mg PO Q6H PRN (Reason: Nausea) albuterol sulfate 90 mcg/actuation HFA aerosol inhaler 2 inh INHALATION Q4H PRN (Reason: shortness of breath or wheezing) Qty: 18 0RF lidocaine 5 % adhesive patch,medicated 1 patch topical [id number] PRN (Reason: Pain) sucralfate 1 gram tablet 1 g PO AC Qty: 90 0RF furosemide 20 mg tablet 40 mg PO QAM atorvastatin 40 mg tablet 40 mg PO BEDTIME aspirin 81 mg tablet,delayed release (DR/EC) 81 mg PO DAILY nitroglycerin 0.4 mg tablet, sublingual See Rx Instructions .ROUTE .COMPLEX Rx Instructions: DISSOLVE 1 TABLET UNDER THE TONGUE EVERY 5 MINUTES NEEDED FOR CHEST PAIN. DO NOT EXCEED A TOTAL OF 3 DOSES IN 15 MINUTES. folic acid 1 mg tablet 1 mg PO DAILY gabapentin 300 mg capsule 300 mg PO TID fluticasone propionate 50 mcg/actuation spray,suspension 1 spray INTRANASAL BID PRN (Reason: allergies) baclofen 10 mg tablet 5 mg PO Q12H PRN (Reason: Muscle Spasm) Qty: 30 0RF alprazolam [Xanax] 0.25 mg tablet 0.5 mg PO DAILY PRN (Reason: anxiety) Rx Instructions: Do not drive or operate heavy machinery or drink while taking medications ranolazine 500 mg Tablet Extended Release 12 Hr 500 mg PO BID Qty: 180 0RF Discharge Orders: Discharge ED (Routine); Ordered 03/06/25 Ordered By: Sammy Plaza Referrals: Diana Garcia PA [Primary Care Provider, Phys[facility] Seat Pack Inspector] Patient Instructions: Opioid Safety, Pain Management, Patient Portal & Cece Instructions Activity Restrictions/Additional Instructions: Thank you for choosing [facility] for your healthcare needs today. It is very important that you follow up as instructed or that you return to the Emergency Department should you have concerns or if your condition changes or worsens in any way. Emergency department visits are focused on emergent conditions, in some cases you may require further evaluation on an outpatient basis. You were seen in the emergency room with complaints headache and neck pain. These have been chronic issues for you in the past. Your laboratory test did not show any clinically significant new findings. You do have an elevated alk phosphatase however this has been chronically elevated in the past as well. You are given IV fluids and a dose of ketorolac in the emergency room continue to take your previously prescribed medications for chronic pain and follow-up with primary care doctor for long-term current chronic pain management. (Please note that included in your discharge packet is information concerning opioid safety and pain management. This information is given to all patients were discharged from the ER regardless of their discharge diagnosis or the medicines they usually take or are prescribed.) Print Language: French Coding Level of Care Code ED Delinquent Notice Machine Operator for Maribel Sweet
[2025-03-06 03:30] VITALS: BP 125/85; PULSE 52; O2SAT 93
[2025-03-06 03:38] LABS: Glucose Urine UA Negative (Normal); Nitrate Urine Negative (Negative); Specific Gravity, Urine 1.007 (1.005-1.030)
[2025-03-06 03:41] LABS: Add Urine Microscopic? YES
[2025-03-06 03:44] LABS: PCP Screen Urine Negative (Negative)
[2025-03-06 04:21] LABS: Hematocrit 32.6 % (36-47); Hemoglobin 10.40 g/dL (11.27-16.99); Mean Corpuscular HGB Conc 31.9 g/dL (30-55); Mean Corpuscular Hemoglobin 27.3 pg (27-33); Mean Corpuscular Volume 85.6 fl (85-98); Nucleated Red Blood Cells % 0 %; Platelet Count 271 10^3/cmm (157-399); Red Blood Count 3.81 10^6/uL (3.85-5.65); White Blood Count 3.32 10^3/uL (3.29-11.43)
[2025-03-06 04:41] LABS: Alanine Aminotransferase 7 U/L (0-33); Albumin Level 4.4 g/dL (3.5-5.2); Alkaline Phosphatase 171 U/L (35-105); Anion Gap 14.1 (5-19); Aspartate Amino Transferase 18 U/L (0-32); Blood Urea Nitrogen 37 mg/dL (8-23); Calcium 9.6 mg/dL (8.5-10.5); Carbon Dioxide 31 mmol/L (22-29); Chloride 98 mmol/L (98-107); Globulin 4.6 g/dL (1.3-4.6); Glucose 116 mg/dL (65-115); Osmolality Calculated 300 mOsm/kg (285-295); Potassium 3.1 mmol/L (3.5-5.1); Sodium 140 mmol/L (136-145); Total Protein 9.0 g/dL (6.6-8.7)
== END 2025-03-06 05:50 | disposition home or self-care (01) ==
PROVIDERS: Emergency Provider Family Medicine; PCP Physician Assistant
DX: R51.9 Headache, unspecified (principal); M54.2 Cervicalgia; G89.29 Other chronic pain; D64.9 Anemia, unspecified; Z79.02 Long term (current) use of antithrombotics/antiplatelets; Z79.82 Long term (current) use of aspirin; Z87.891 Personal history of nicotine dependence; I25.10 Atherosclerotic heart disease of native coronary artery without angina pectoris; E78.5 Hyperlipidemia, unspecified; N18.30 Chronic kidney disease, stage 3 unspecified
CPT/HCPCS: 80053; 80306; 81001; 85025; 96361; 96374; 99284; J1885; J7030

== ENCOUNTER 2025-03-07 05:36 | Inpatient (IN) | payer MEDICARE, OTHER, SELFPAY ==
--- OUTSIDE RECORDS SUMMARY | 2024-07-17 03:30 | XMS_ITS ---
Author Organization [facility] Address [address] [place] [address] Care Team Providers Care Condenser Operator Name Role Phone Diana Galvan Primary Care Provider Deedee Osei Unavailable [phone] Paxton Nobles Unavailable [phone] REASON FOR VISIT wants new mri Social History Sex Assigned At : Social History Observation Description Sex Assigned At Female Encounters Encounter Location Date Provider Diagnosis [facility] [place] [address] [place] [address] 07/17/2024 Paxton Nobles Plan Of Treatment Next Appt Details Provider Name:Mode Cabello, 04/11/2025 01:40:00 PM, [address] [place], [address], Progress Notes * BARRY VAN SDOB:[birth year] (70 yo F)Acc No.[id number]:07/17/2024 Progress Notes Patient: BARRY LIVINGSTON Provider: Rosalia Nobles APRN :1955 A ge:69 Y S ex:Female Date:07/17/2024 Address:[address] [place] [address] [address], [place], [phone] Pcp:SHIV Chong Subjective: * Chief Complaints: * W ants new mri Billing Information: * Procedure Codes: Care Plan Details* * Electronic signature of Syed Nobles CHRONIC CONDITION NURSE on 03/07/2025 at 05:42 AM DIRECTOR MARKETING Sign off status: Pending * Provider: Rosalia Nobles APRN Date: 0 07/17/2024 Generated for Shen lindo/Sindy/Chandler on: 05/07/2024 05:42 AM DIRECTOR MARKETING
[2025-03-07] VITALS (14 sets, daily range): BP systolic 93–153; BP diastolic 35–87; PULSE 52–75; RESP 16–20; TEMP 36.2–37.1; O2SAT 94–99; BMI 26.7; BMI 23.9
--- NOTE | 2025-03-07 05:41 | XRR_ITS ---
PROCEDURE INFORMATION: Exam: XR Chest Exam date and time: 03/07/2025 5:56 AM Age: 70 years old Clinical indication: Cough and dyspnea; Prior surgery; Surgery date: 6+ months; Surgery type: Cardiac stents; Additional info: Dyspnea/cough TECHNIQUE: Imaging protocol: Radiologic exam of the chest. Views: 1 view. COMPARISON: CR (CHEST, ) 02/14/2025 6:48 AM FINDINGS: Lungs: Mild emphysematous changes. Pleural spaces: Unremarkable. No pleural effusion. No pneumothorax. Heart/Mediastinum: Small hiatal hernia. Borderline cardiomegaly. Bones/joints: Posterior cervical fusion. XR/XR chest 1V portable [id number] IMPRESSION: No acute findings.
--- OUTSIDE RECORDS SUMMARY | 2025-03-07 05:42 | XMS_ITS | Patient Health Record ---
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) Active confirmed Problem Wrist joint effusion (373552953) Effusion, right wrist (M25.431) Active confirmed Problem 239971201 Dyslipidemia (E78.5) Active confirmed Problem 01061167 Seizures (R56.9) Active confirmed Problem 19798430 Heart murmur (R01.1) Active confirmed Problem 389406122 Diabetes mellitu s type 2 in nonobese (E11.9) Active confirmed Problem 207312411 GERD without esophagitis (K21.9) Active confirmed Problem 455522137 Hypothyroidism (acquired) (E03.9) Active confirmed Problem 8400518432649 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) Active confirmed Problem 37005014 Depression, unspecified depression type (F32.9) Active confirmed Problem 207842312 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) Active confirmed Problem 806684387 Cataract of left eye, unspecified cataract type (H26.9) Active confirmed Plan Of Treatment Pending Test Test Name Order Date Hemoglobin A1c ([id number]) 11/12/2016 MRI- BRAIN WO CONTRAST (87586)(HEAFH-BRA O) 01/22/2017 XRAY- ABDOMEN-KUB 1V (21715)(HEH-ABDK1 ) 01/21/2017 Insurance Providers Payer Name Payer Address Payer Phone Subscriber Number Group Number Insured Name Patient Relationship to Insured Coverage Start Date Coverage End Date [place]ICARE [place] PART B [address] [facility] SHIV [place] [id number] Tosha Perry Self - patient is the insured 1 9 [facility] SUPP[facility] [id number] [facility], [place] [id number] Tosha Perry Self - patient is the [...]
--- OUTSIDE RECORDS SUMMARY | 2025-03-07 05:42 | XMS_ITS | Patient Health Record ---
Author Organization [facility] [employer] Address [address] [facility] [address] [place] [address] Support Name Relationship Address Phone BARRY VAN Guarantor Unknown [phone] Allergies Allergen (clinical drug ingredient) Drug/Non Drug [...] Status W/U Status Risk Notes Problem Hypothyroidism (26386182) Other specified hypothyroidism (E03.8) Active confirmed Problem Chronic pancreatitis (627611741) Other chronic pancreatitis (K86.1) Active confirmed Problem Sciatica (95514437) Lumbago with sciatica, right side (M54.41) Active confirmed Problem Sciatica (60395501) Lumbago with sciatica, left side (M54.42) Active confirmed Problem Anxiety (13988139) Anxiety (F41.9) Active confirmed Problem Posttraumatic stress disorder (24090984) PTSD (post-traumatic stress disorder) (F43.10) Active confirmed Problem Heart failure (51447577) Other congestive heart failure (I50.9) Active confirmed Problem Chronic pain due to injury (218880021) 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) Active [...] End Date [place]ARE [place], [place] [address] [address] GABI BRIZUELA [id number] [phone] [id number] BARRY VAN Self - patient is the insured [employer] [address] [place] [address] [place] [phone] [id number] BARRY VAN Self - patient is the insured Medical (General) History Medical History History ICD Code Hypothyroidism head injury with seizures multiple traumatic injuries from [facility] back surgery pancreatitis cataract pneumonia depression GERD Surgical History Surgery Date(Month/Year) back surgery 2014 Hospitalization History Reason Date(Month/Year) Pneumonia and hand infection. 11/2021
--- OUTSIDE RECORDS SUMMARY | 2025-03-07 05:42 | XMS_ITS | Clinical Summary ---
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
--- OUTSIDE RECORDS SUMMARY | 2025-03-07 05:42 | XMS_ITS | Patient Health Record ---
Author Organization [facility] Address [address] [place] [address] Care Team Providers Care Supervisor Baking Name Role Phone Diana Galvan Primary Care Provider UnavailDeedee Vickers Unavailable [phone] Rajesh Serna Unavailable [phone] Paxton Nobles Unavailable [phone] Mode Cabello Unavailable [phone] Desiree Cox Unavailable Allergies Allergen (clinical drug ingredient) Drug/Non Drug Allergy documented on EMR Reaction Allergy Type Onset Date Status diphenhydramine Benadryl Unknown Drug Allergy A ctive sumatriptan Imitrex Unknown Drug Allergy Activ e Results Component Value Reference Range Flag Notes Schedule Confirmation Reviewed date:02/27/2025 02:32:50 PM Interpretation: Performing Lab: Notes/Report: zzzCT Outside CD Reviewed date:02/27/2025 02:32:50 PM Interpretation: Performing Lab: Notes/Report: [id number] Tox Results Reviewed date:12/05/2024 02:35:33 PM Interpretation: Performing Lab: Notes/Report: zzzUrine Drug Screen (confir mation by instrument) - [id number] Reviewed date:04/06/2024 12:03:00 PM Interpretation: Performing Lab: Notes/Report: Urine Drug Screen (cup read) - 87085 Reviewed date:03/30/2024 03:52:14 PM Interpretation: Performing Lab: Notes/Report: OXY + Urine Confirmation Panel (in strument) - [id number] Reviewed date:12/05/2024 02:47:57 PM Interpretation: Performing Lab: [...] the U.S. Food and Drug Administration. Gabapentin >00372 <225 ng/mL > This test was developed [...] Administration. Urine Drug Screen (cup read) - 29039 Reviewed date:11/27/2024 02:11:57 PM Interpretation: Performing Lab: Notes/Report: OXY + Urine Drug Screen (cup read) - 12086 Reviewed date:06/22/2024 01:19:32 PM Interpretation:Positive Performing Lab: Notes/Report: Positive OXY + Urine Confirmation Panel (in strument) - 99812 Reviewed date:06/28/2024 02:49:57 PM Interpretation: Performing Lab: [...] the U.S. Food and Drug Administration. Gabapentin >88937 <225 ng/mL > This test was developed [...] by the U.S. Food and Drug Administration. IPMA Saliva Drug Screen Reviewed date:09/01/2024 10:27:02 AM Interpretation: Performing Lab: Notes/Report: Schedule Confirmation Reviewed date:02/27/2025 02:32:50 PM Interpretation: Performing Lab: Notes/Report: Tox Results Reviewed date:06/28/2024 02:49:57 PM Interpretation: Performing Lab: Notes/Report: Urine Drug Screen (cup read) - [id number] Reviewed date:10/05/2024 10:34:03 AM Interpretation: Performing Lab: Notes/Report: BZO + OPI + Reason For Referral Reason EMG/NCV Bilateral Up per Extremities Diagnosis 1 Pain in right upper arm (M79.621) Diagnosis 2 Pain in left upper a rm (M79.622) Diagnosis 3 Cervical radiculopat hy (M54.12) Diagnosis 4 Degenerative disc di sease, cervical (M50.30) Diagnosis 5 Cervical paraspinal muscle spasm (M62.838) Referral Organization [facility] [place] Referring Provider First Name Rajesh Referring Provider Last Name Kareem Referring Provider Speciality Neurosurge tahmina Referred Provider [facility], Physi roselia Therapy (Main) Referred Provider Specialty Physical The rapist Referral Priority Routine Reason Evaluation of a cerv ical spinal cord stimulator Diagnosis 1 Cervical paraspinal muscle spasm (M62.838) Diagnosis 2 Chronic pain syndrom e (G89.4) Diagnosis 3 Arthrodesis status ( Z98.1) Referring Provider First Name Rajesh Referring Provider Last Name Kareem Referring Provider Speciality Neurosurge tahmina Referred Organization [facility] Referred Provider Mode Cabello Referred Address [address] [place] [id number], General Notes Alissa Myrick 0 05/19/2024 03:03:09 PM >ATC to schedule. Referral Priority Routine Reason Evaluation of a cerv ical spinal cord stimulator Diagnosis 1 Chronic pain syndrom e (G89.4) Diagnosis 2 Cervical paraspinal muscle spasm (M62.838) Diagnosis 3 Arthrodesis status ( Z98.1) Referral Organization [facility] [place] Referring Provider First Name Rajesh Referring Provider [...] not exceed 3 per day Fill on 02/16/2025 02/16/2025 03/18/2025 Active oxyCODONE HCl 10 MG Tablet 1 tablet Orally every 8 hrs; Duration: 30 days As needed Do not exceed 3 per day Fill on 03/18/2025 02/16/2025 04/17/2025 Active Social History Sex Assigned At : Social History Observation Description Sex Assigned At Female Social History Additional Details Category Social Info [...] Status Risk Notes Problem Chronic pain syndrome (696041706) Chronic pain syndrome (G89.4) 09/15/19 Active confirmed Problem Cervical spondylosis without myelopathy (216270904) Other spondylosis with radiculopathy, cervical region (M47.22) 09/15/19 Active confirmed Problem Degeneration of cervical intervertebral disc (25181768) Other cervical disc degeneration, unspecified cervical region (M50.30) 09/15/19 Active confirmed Problem Post-laminectomy syndrome (53037381) Postlaminectomy syndrome, not elsewhere classified (M96.1) 09/15/19 Active confirmed Problem Abnormal gait (28144288) Unspecified abnormalities of gait and mobility (R26.9) 09/15/19 24 Active confirmed Problem High risk drug monitoring status (106373479) halfway (current) use of opiate analgesic (Z79.891) 09/15/19 Active confirmed Problem Cervical radiculopathy (70296492) Cervical radiculopathy (M54.12) Active confirmed Problem Degeneration of cervical intervertebral disc (52091871) Degenerative disc disease, cervical (M50.30) Active confirmed Problem 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) (764816559) Facet arthropathy, 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) Active confirmed Problem Neck pain (85745425) Cervical pain (neck) (M54.2) Active confirmed Problem Peripheral vascular disease (108897768) Peripheral vascular disease (I73.9) Active confirmed Vital Signs Heart Rate 68 /min 05/04/2024 Temperature 98.2 degrees Fahrenheit 05/04/2024 Respiratory Rate 20 /min 05/04/2024 Blood pressure diastolic 64 mm Hg 05/04/2024 Oximetry 96 % 05/04/2024 Height-cm 165.1 cm 02/16/2025 Weight-kg 67.59 kg 02/16/2025 Height 65 in 02/16/2025 Blood pressure systolic 122 mm Hg 05/04/2024 Weight 149 lbs 02/16/2025 BMI 24.79 kg/m2 02/16/2025 Encounters Encounter Location Date Provider Diagnosis [facility] [address] [address] 02/16/2025 Deedee Villarreal Chronic pain syndrom e G89.4 ; Other spondylosis with radiculopathy, cervical region M47.22 ; Myalgia of auxiliary muscles, head and neck M79.12 ; Postlaminectomy syndrome, not elsewhere classified M96.1 ; Other cervical disc degeneration, unspecified cervical region M50.30 ; halfway (current) use of opiate analgesic Z79.891 and Unspecified abnormalities of gait and mobility R26.9 [facility] [address] [address] 11/27/2024 Deedee Villarreal Chronic pain syndrom e G89.4 ; Other spondylosis with radiculopathy, cervical region M47.22 ; Myalgia of auxiliary muscles, head and neck M79.12 ; Unspecified abnormalities of gait and mobility R26.9 ; Postlaminectomy syndrome, not elsewhere classified M96.1 ; Other cervical disc degeneration, unspecified cervical region M50.30 and halfway (current) use of opiate analgesic Z79.891 [facility] [address] [address] 10/05/2024 Deedee Villarreal Chronic pain syndrom e G89.4 ; Other spondylosis with radiculopathy, cervical region M47.22 ; Myalgia of auxiliary muscles, head and neck M79.12 ; Unspecified abnormalities of gait and mobility R26.9 ; Postlaminectomy syndrome, not elsewhere classified M96.1 ; Other cervical disc degeneration, unspecified cervical region M50.30 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 Z79.891 [facility] [address] [address] 08/24/2024 Deedee Villarreal Chronic pain syndrom e G89.4 ; Other spondylosis with radiculopathy, cervical region M47.22 ; Myalgia of auxiliary muscles, head and neck M79.12 ; Unspecified abnormalities of gait and mobility R26.9 ; Postlaminectomy syndrome, not elsewhere classified M96.1 ; Other cervical disc degeneration, unspecified cervical region M50.30 and halfway (current) use of opiate analgesic Z79.891 [facility] [address] [address] 06/22/2024 Deedee Villarreal Chronic pain syndrom e G89.4 ; Other cervical disc degeneration, unspecified cervical region M50.30 ; Other spondylosis with radiculopathy, cervical region M47.22 ; Myalgia of auxiliary muscles, head and neck M79.12 ; Postlaminectomy syndrome, not elsewhere classified M96.1 ; Unspecified abnormalities of gait and mobility R26.9 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 [place] [address] 05/04/2024 Rajesh Serna Cervical paraspinal muscle spasm M62.838 ; Chronic pain syndrome G89.4 ; Degenerative disc disease, cervical M50.30 ; Cervical radiculopathy M54.12 and Arthrodesis status Z98.1 [facility] [address] [address] 04/26/2024 Mode Cabello Chronic pain syndrom e G89.4 ; Other spondylosis with radiculopathy, cervical region M47.22 ; Other cervical disc degeneration, unspecified cervical region M50.30 ; Myalgia of auxiliary muscles, head and neck M79.12 ; Postlaminectomy syndrome, not elsewhere classified M96.1 ; Unspecified abnormalities of gait and mobility R26.9 and halfway (current) use of opiate analgesic Z79.891 [facility] [place] [address] [place] [address] 03/30/2024 Deedee Villarreal Chronic pain syndrom e G89.4 ; Other cervical disc degeneration, unspecified cervical region M50.30 ; Other spondylosis with radiculopathy, cervical region M47.22 ; Postlaminectomy syndrome, not elsewhere classified M96.1 ; Myalgia of auxiliary muscles, head and neck M79.12 ; Unspecified abnormalities of gait and mobility R26.9 and halfway (current) use of opiate analgesic Z79.891 [facility] [place] [address] [address] 04/10/2024 Rajesh Serna Cervical paraspinal muscle spasm M62.838 ; Degenerative disc disease, cervical M50.30 ; Cervical radiculopathy M54.12 ; Pain in left upper arm M79.622 and Pain in right upper arm M79.621 [facility] [address] [facility] [place] [address] 03/30/2024 Mode Cabello [facility] [address] [address] 03/30/2024 Rajesh Serna [facility] [address] [facility] [place] [address] 05/30/2024 Deedee Villarreal [facility] [place] [address] [place] [address] 04/14/2024 Mode Cabello [facility] [place] [address] [place] [address] 02/16/2025 Mode Cabello Other spondylosis wi th radiculopathy, cervical region M47.22 [facility] [place] [address] [place] [address] 02/02/2025 Desiree Lyuksyutova-Margi ce Other spondylosis with radiculopathy, cervical region M47.22 [facility] [place] [address] [place] [address] 01/01/2025 Mode Cabello Other spondylosis wi th radiculopathy, cervical region M47.22 [facility] [place] [address] [place] [address] 11/27/2024 Desiree Lyuksyutova-Margi ce Other spondylosis with radiculopathy, cervical region M47.22 [facility] [place] [address] [place] [address] 10/05/2024 Desiree Lyuksyutova-Margi ce Other spondylosis with radiculopathy, cervical region M47.22 [facility] [place] [address] [place] [address] 08/24/2024 Mode Cabello Other spondylosis wi th radiculopathy, cervical region M47.22 [facility] [address] [address] 08/17/2024 Mode Cabello [facility] [place] [address] [place] [address] 07/10/2024 Deedee Villarreal [facility] [place] [address] [place] [address] 06/22/2024 Mode Cabello Chronic pain syndrom e G89.4 and Other spondylosis with radiculopathy, cervical region M47.22 [facility] [place] [address] [place] [address] 06/05/2024 Mode Cabello Other spondylosis wi th radiculopathy, cervical region M47.22 [facility] [place] [address] [place] [address] 05/17/2024 Mode Cabello Assessments Encounter Date Diagnosis [...] how bad her anxiety has been lately. 04/10/2024 Degenerative disc disease, cervical (ICD-10 - M50.30) 05/04/2024 Cervical paraspinal muscle spasm (ICD-10 - M62.838) 05/24/2024 Other cervical disc degeneration, unspecified cervical region (ICD-10 - M50.30) 05/04/2024 Chronic pain syndrome (ICD-10 - G89.4) 06/22/2024 [...] to monitor for treatment effectiveness and compliance. 06/05/2024 Other spondylosis with radiculopathy, cervical region [...] effects are noted. Last UDS and [place] SWEAT BAND SEWER reviewed today. Patient is advised that best long-term goals include increased activity, core strengthening, proper weight management, coping strategies, avoidance of painful triggers, and targeted interventional therapy. We will see the patient for routine follow up in accordance with all clinic policies. We did remind patient today of current guidelines to decrease opioid when possible. We will continue to stress nonopioid treatment. 02/16/2025 Other spondylosis with radiculopathy, cervical region (ICD-10 - M47.22) 02/02/2025 Other spondylosis with radiculopathy, cervical region [...] effects are noted. Last UDS and AR SWEAT BAND SEWER reviewed today. Patient is advised that best [...] cervical region (ICD-10 - M47.22) 03/30/2024 Other cervical disc degeneration, unspecified cervical region (ICD-10 - M50.30) 02/16/2025 Chronic pain syndrome (ICD-10 - G89.4) I had a long discussion with the patient today regarding her chronic pain complaints. She continues with neck pain as well as myalgia mediated pain. However, she continues to have a multitude of health problems right now. She was seeing cardiology and states that she had syncope as she was passing out a lot. She states since she seen us last she had a heart attack and had 4 stents placed. She states that the syncope went away for a little while but has since restarted. I did advise her to follow-up with cardiology. She states she fell on Wednesday and was in the ER. She states they did a CT scan of her abdomen and her lower back. We will request those records. She reports that she is also vomiting blood occasionally. She states that she has been referred to gastroenterology. She has a Brandt catheter in place today and when I questioned about this she states that she was told that she has kidney failure and is supposed to be referred to nephrology and/or urology but has not heard about anything for an appointment yet. I advised her to follow-up on this. I did recommend a bowel regimen for her today. She denies any other changes since we last seen her any untoward side effects of the medication. She does state that they did have her stop her pain medication for a little while to ensure her not being able to urinate was not in any way due to the pain medication. She will return to clinic in 2 months to monitor for treatment effectiveness and compliance. The patient continues with chronic pain requiring [...] effects are noted. Last UDS and [place] SWEAT BAND SEWER reviewed today. Patient is advised that best long-term goals include increased activity, core strengthening, proper weight management, coping strategies, avoidance of painful triggers, and targeted interventional therapy. We will see the patient for routine follow up in accordance with all clinic policies. We did remind patient today of current guidelines to decrease opioid when possible. We will continue to stress nonopioid treatment. 02/16/2025 Patient left without giving UDS sample, conf was to be ordered 02/16/2025 Other spondylosis with radiculopathy, cervical region (ICD-10 [...] with radiculopathy, cervical region (ICD-10 - M47.22) 02/16/2025 Myalgia of auxiliary muscles, head and neck (ICD-10 - M79.12) 04/26/2024 Other cervical disc degeneration, unspecified cervical region (ICD-10 - M50.30) 10/05/2024 Other spondylosis with radiculopathy, cervical region (ICD-10 - M47.22) 11/27/2024 Other spondylosis with radiculopathy, cervical region (ICD-10 - M47.22) 05/24/2024 Other spondylosis with radiculopathy, cervical region (ICD-10 - M47.22) 08/24/2024 Myalgia of auxiliary muscles, head and neck (ICD-10 - M79.12) 06/22/2024 Other cervical disc degeneration, unspecified cervical region (ICD-10 - M50.30) 06/22/2024 Other spondylosis with radiculopathy, cervical region (ICD-10 - M47.22) 05/04/2024 Degenerative disc disease, cervical (ICD-10 - M50.30) 04/10/2024 Cervical radiculopathy (ICD-10 - M54.12) 03/30/2024 Other spondylosis with radiculopathy, cervical region (ICD-10 - M47.22) 04/10/2024 Pain in left upper arm (ICD-10 - M79.622) 05/24/2024 Myalgia of auxiliary muscles, head and neck (ICD-10 - M79.12) 05/04/2024 Cervical radiculopathy (ICD-10 - M54.12) 06/22/2024 Other spondylosis with radiculopathy, cervical region (ICD-10 - M47.22) 10/05/2024 Myalgia of auxiliary muscles, head and neck (ICD-10 - M79.12) 08/24/2024 Unspecified abnormalities of gait and mobility (ICD-10 - R26.9) 11/27/2024 Myalgia of auxiliary muscles, head and neck (ICD-10 - M79.12) 03/30/2024 Postlaminectomy syndrome, not elsewhere classified (ICD-10 - M96.1) 02/16/2025 Postlaminectomy syndrome, not elsewhere classified (ICD-10 - M96.1) 04/26/2024 Myalgia of auxiliary muscles, head and neck (ICD-10 - M79.12) 03/30/2024 Myalgia of auxiliary muscles, head and neck (ICD-10 - M79.12) 04/26/2024 Postlaminectomy syndrome, not elsewhere classified (ICD-10 - M96.1) 02/16/2025 Other cervical disc degeneration, unspecified cervical region (ICD-10 - M50.30) 10/05/2024 Unspecified abnormalities of gait and mobility (ICD-10 - R26.9) 11/27/2024 Unspecified abnormalities of gait and mobility (ICD-10 - R26.9) 08/24/2024 Postlaminectomy syndrome, not elsewhere classified (ICD-10 - M96.1) 06/22/2024 Myalgia of auxiliary muscles, head and neck (ICD-10 - M79.12) 05/04/2024 Arthrodesis status (ICD-10 - Z98.1) 05/24/2024 [...] the procedure and all questions were answered. 04/10/2024 Pain in right upper arm (ICD-10 - M79.621) 05/24/2024 Unspecified abnormalities of gait and mobility (ICD-10 - R26.9) 06/22/2024 Postlaminectomy syndrome, not elsewhere classified (ICD-10 - M96.1) 11/27/2024 Postlaminectomy syndrome, not elsewhere classified (ICD-10 - M96.1) 10/05/2024 Postlaminectomy syndrome, not elsewhere classified (ICD-10 - M96.1) 08/24/2024 Other cervical disc degeneration, unspecified cervical region (ICD-10 - M50.30) 03/30/2024 Unspecified abnormalities of gait and mobility (ICD-10 - R26.9) 04/26/2024 Unspecified abnormalities of gait and mobility (ICD-10 - R26.9) 02/16/2025 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 (ICD-10 - Z79.891) 02/16/2025 Unspecified abnormalities of gait and mobility (ICD-10 - R26.9) 04/26/2024 halfway (current) use of opiate analgesic (ICD-10 - Z79.891) 03/30/2024 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 Last UDS and [place] SWE[employer] B[employer] SEWER reviewed today. Patient is advised that best [...] abide by our urine testing policy. 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 11/27/2024 halfway (current) use of opiate analgesic (ICD-10 - Z79.891) 10/05/2024 halfway (current) use of opiate analgesic (ICD-10 - Z79.891) 04/26/2024 Other I, Michael Payne, am scribing [...] Name Order Date Cervical Spine AP/Lat 2-3 [id number] Next Appt Details Provider Name:Mode Cabello, 04/11/2025 01:40:00 PM, [address] [place], [address], Insurance Providers Payer Name Payer Address Payer Phone Subscriber Number Group Number Insured Name Patient Relationship to Insured Coverage Start Date Coverage End Date [place] [address] [place] [phone] [id number] BARRY VAN Self - patient is the insured [place] [address] [place] [phone] [id number] BARRY VAN Self - patient is the insured [place] Medicare [address] [address] [place] [address] [phone] [id number] BARRY VAN Self - patient is the insured Medical (General) History Surgical History Surgery Date(Month/Year) appendectomy Breast biopsy section Hernia surgery Hysterectomy Jaw surgeries left ankle surgery Neck surgeries
--- OUTSIDE RECORDS SUMMARY | 2025-03-07 05:43 | XMS_ITS | Patient Health Record ---
Author Organization [facility] Address [address] [address] [place] [address] Care Team Providers Care Mangle Roll Operator Name Role Phone Desiree Gaming MD Primary Care Provider Unavailab Srinivasan Wilcox Unavailable [phone] Reason For Referral No Information Medications Medication [...] 50 MG Tablet Oral 03/23/2017 Active Creon 19922 UNIT Capsule Delayed Release Particles Oral 04/07/2017 Active Creon 53283 UNIT Capsule Delayed Release Particles Oral 02/18/2017 [...] End Date Medicare [place] MC37 [address] [place] [address] [phone] [id number] BARRY VAN Self - patient is the insured Medical (General) History Surgical History Surgery Date(Month/Year) Foot Surgery ,Status : Resolved Appendectomy ,Status : Resolved Cataract Surgery ,Status : Resolved Cholecystectomy ,Status : Resolved Eye Surgery ,Status : Resolved Gastric Surgery ,Status : Resolved Breast Surgery ,Status : Resolved Hysterectomy ,Status : Resolved
--- OUTSIDE RECORDS SUMMARY | 2025-03-07 05:43 | XMS_ITS | Patient Health Record ---
Author Organization El Gonsalves D.O., [facility] Address [address] [place] [address] Care Team Providers Care Sap Pi Developer Name Role Phone VeeMadeline myersne Primary Care Provider El Brewer [phone] Allergies Allergen (clinical drug ingredient) Drug/Non Drug [...] Status Risk Notes Problem Shortness of breath (412809384) Shortness of breath (R06.02) Active confirmed Problem Anxiety (54731944) Anxiety (F41.9) Active confirmed Problem Abnormal PFT: MV V reduced disproportionate to FEV1 (R94.2) Active confirmed Problem Peripheral edema (90664301) Peripheral edema (R60.9) Active confirmed Problem Restless legs syndrome (26402701) Restless leg syndrome (G25.81) Active confirmed Problem Pulmonary hypertension (80221199) Pulmonary hypertension (I27.20) Active confirmed Problem Benign neoplasm of cerebral meninges (32512519) Meningioma (D32.9) Active confirmed Problem Hypokalemia (40084809) 

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
[2025-03-07 06:03] LABS: Hematocrit 32.1 % (36-47); Hemoglobin 10.50 g/dL (11.27-16.99); Mean Corpuscular HGB Conc 32.7 g/dL (30-55); Mean Corpuscular Hemoglobin 27.3 pg (27-33); Mean Corpuscular Volume 83.6 fl (85-98); Nucleated Red Blood Cells % 0 %; Platelet Count 291 10^3/cmm (157-399); Red Blood Count 3.84 10^6/uL (3.85-5.65); White Blood Count 4.72 10^3/uL (3.29-11.43)
--- NOTE | 2025-03-07 06:09 | CTR_ITS ---
PROCEDURE INFORMATION: Exam: CT Abdomen And Pelvis With Contrast Exam date and time: 03/07/2025 6:40 AM Age: 70 years old Clinical indication: Abdominal pain; Additional info: Abd pain TECHNIQUE: Imaging protocol: Computed tomography of the abdomen and pelvis with contrast. Radiation optimization: All CT scans at this facility use at least one of these dose optimization techniques: automated exposure control; mA and/or kV adjustment per patient size (includes targeted exams where dose is matched to clinical indication); or iterative reconstruction. Contrast material: OMNI 350; Contrast volume: 100 ml; Contrast route: INTRAVENOUS (IV); COMPARISON: CT abdomen pelvis w con* [id number] 12/24/2024 7:35 AM RADIATION DOSE METRICS: Total DLP (mGy-cm): 631.51 FINDINGS: Coronary arteries: Coronary artery calcifications. Diaphragm: Small/moderate hiatal hernia. Liver: Normal. No mass. Gallbladder and biliary ducts: Cholecystectomy. Pancreas: Normal. No ductal dilation. Spleen: Normal. No splenomegaly. Adrenal glands: Normal. No mass. Kidneys and ureters: Normal. No hydronephrosis. Stomach and bowel: Unremarkable. No obstruction. No mucosal thickening. Appendix: No evidence of appendicitis. Intraperitoneal space: Unremarkable. No free air. No significant fluid collection. Vasculature: IVC filter. Lymph nodes: Unremarkable. No enlarged lymph nodes. Urinary bladder: Unremarkable as visualized. Reproductive: Hysterectomy. Bones/joints: Unremarkable. No acute fracture. Soft tissues: Unremarkable. CT/CT abdomen pelvis w con* [id number] IMPRESSION: No acute findings. COMMENTS: For patients with an IVC filter, recommend assessment for a management plan for the patient's IVC filter. If there is no established management plan, recommend referral to an interventional clinician on a nonemergent basis for evaluation.
[2025-03-07 06:15] LABS: INR 0.91 (0.8-1.2); Prothrombin Time 13.00 SECONDS (12.1-14.9)
[2025-03-07 06:16] LABS: Partial Thromboplastin Time 36.5 SECONDS (23.9-36.7)
--- NOTE | 2025-03-07 06:16 | ECG_ITS ---
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 Measurements Intervals [place] Rate: 52 P: 45 CO: 195 QRS: 3 QRSD: 96 T: 15 QT: 380 QTc: 353 Interpretive Statements SINUS BRADYCARDIA LOW QRS VOLTAGE IN PRECORDIAL LEADS [QRS DEFLECTION < 1.0 mV IN CHEST LEADS] NONSPECIFIC T-WAVE ABNORMALITY Compared to ECG 02/14/2025 08:47:04 T-wave abnormality now present Electronically Signed On 03-08-2025 17:40:35 CRM SOLUTION ARCHITECT by Jasmin Elise M.D. [email or web address]
[2025-03-07 06:20] LABS: Alanine Aminotransferase 8 U/L (0-33); Albumin Level 4.7 g/dL (3.5-5.2); Alkaline Phosphatase 176 U/L (35-105); Anion Gap 18.2 (5-19); Aspartate Amino Transferase 21 U/L (0-32); Blood Urea Nitrogen 42 mg/dL (8-23); Calcium 9.7 mg/dL (8.5-10.5); Carbon Dioxide 29 mmol/L (22-29); Chloride 96 mmol/L (98-107); Globulin 4.6 g/dL (1.3-4.6); Glucose 105 mg/dL (65-115); Lipase 21 U/L (13-60); Osmolality Calculated 301 mOsm/kg (285-295); Potassium 3.2 mmol/L (3.5-5.1); Sodium 140 mmol/L (136-145); Total Protein 9.3 g/dL (6.6-8.7)
[2025-03-07 06:44] LABS: Glucose Urine UA Negative (Normal); Nitrate Urine Negative (Negative); Specific Gravity, Urine 1.010 (1.005-1.030)
[2025-03-07] MEDS: iohexol 350 mg/mL 500 mL Btl (per mL) IV (06:48)
[2025-03-07 06:49] LABS: Add Urine Microscopic? YES
[2025-03-07 07:13] LABS: UA Slide Review UA Slide Review Perf
[2025-03-07 07:20] LABS: Gastricult Occult Blood Positive (Negative)
[2025-03-07 07:21] LABS: Gastricult Occult PH 5.0 PH (1.5-3.5)
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
[2025-03-07] MEDS: cefTRIAXone 1,000 mg SDV 1000 MG IVP (08:29)
[2025-03-07] MEDS: pantoprazole 40 mg SDV 80 MG IVP (09:03)
[2025-03-07] MEDS: potassium chloride premix 100 ML 50 MEQ IV ×2 (09:41→16:08)
[2025-03-07 09:52] LABS: Add On to Lab Order(s) Added
[2025-03-07 10:06] LABS: Iron 43 ug/dL (37-145); Magnesium 2.3 mg/dL (1.7-2.3); Total Iron Binding Capacity 332 mcg/dl; Unsaturated Iron Binding 289 ug/dL (112-347)
[2025-03-07 10:22] LABS: Vitamin B12 379 pg/mL (232-1245)
[2025-03-07 12:09] LABS: Add On to Lab Order(s) Added
[2025-03-07 12:51] LABS: Thyroid Stimulating Hormone 1.05 uIU/mL (0.27-4.20)
[2025-03-07] MEDS: dextrose 5%-sod chloride 0.45% 1,000 ML 75 ML IV (13:48)
--- NOTE | 2025-03-07 14:02 | PC.NURSE ---
Notified Lincoln Clayton NP to please restart patients Oxycodone. Medication taken 3 times daily and has not had any since 03-06-25 @ 1300. Patients left side of head hurts and right ear hurting.
[2025-03-07 14:46] LABS: Hematocrit 30.6 % (36-47); Hemoglobin 10.10 g/dL (11.27-16.99); Mean Corpuscular HGB Conc 33.0 g/dL (30-55); Mean Corpuscular Hemoglobin 27.4 pg (27-33); Mean Corpuscular Volume 83.2 fl (85-98); Platelet Count 268 10^3/cmm (157-399); Red Blood Count 3.68 10^6/uL (3.85-5.65); White Blood Count 3.32 10^3/uL (3.29-11.43)
[2025-03-07 15:04] LABS: Blood Urea Nitrogen 31 mg/dL (8-23); Calcium 9.0 mg/dL (8.5-10.5); Carbon Dioxide 25 mmol/L (22-29); Chloride 102 mmol/L (98-107); Glucose 101 mg/dL (65-115); Osmolality Calculated 299 mOsm/kg (285-295); Sodium 141 mmol/L (136-145)
[2025-03-07 15:12] LABS: Absolute Segmented Neutrophil 1.1 10/cmm (1.6-7.1); Atypical Lymphs 1.0 % (0-5); Band Neutrophils Absolute 0.0 10^3/cmm (0.0-1.2); Total Cells Counted 100 (0-100)
[2025-03-07 15:43] LABS: Anion Gap 16.9 (5-19)
[2025-03-07 15:44] LABS: Potassium 2.9 mmol/L (3.5-5.1)
[2025-03-07] MEDS: oxyCODONE 5 mg IR Tab/Cap 10 MG PO (16:06)
[2025-03-07] MEDS: pantoprazole 40 mg SDV IVP (22:25)
[2025-03-08] VITALS (11 sets, daily range): BP systolic 109–138; BP diastolic 49–78; PULSE 56–66; RESP 16–18; TEMP 36.3–36.9; O2SAT 96–98
[2025-03-08] MEDS: oxyCODONE 5 mg IR Tab/Cap 10 MG PO ×3 (03:47→21:17)
[2025-03-08 04:41] LABS: Hematocrit 28.1 % (36-47); Hemoglobin 8.80 g/dL (11.27-16.99); Mean Corpuscular HGB Conc 31.3 g/dL (30-55); Mean Corpuscular Hemoglobin 26.8 pg (27-33); Mean Corpuscular Volume 85.7 fl (85-98); Platelet Count 243 10^3/cmm (157-399); Red Blood Count 3.28 10^6/uL (3.85-5.65); White Blood Count 3.54 10^3/uL (3.29-11.43)
[2025-03-08 04:58] LABS: Alanine Aminotransferase 6 U/L (0-33); Albumin Level 3.6 g/dL (3.5-5.2); Alkaline Phosphatase 134 U/L (35-105); Anion Gap 13.9 (5-19); Aspartate Amino Transferase 18 U/L (0-32); Blood Urea Nitrogen 21 mg/dL (8-23); Calcium 8.9 mg/dL (8.5-10.5); Carbon Dioxide 24 mmol/L (22-29); Chloride 107 mmol/L (98-107); Globulin 3.7 g/dL (1.3-4.6); Glucose 94 mg/dL (65-115); Magnesium 2.0 mg/dL (1.7-2.3); Osmolality Calculated 295 mOsm/kg (285-295); Potassium 3.9 mmol/L (3.5-5.1); Sodium 141 mmol/L (136-145); Total Protein 7.3 g/dL (6.6-8.7)
[2025-03-08 05:34] LABS: Absolute Segmented Neutrophil 1.6 10/cmm (1.6-7.1); Total Cells Counted 100 (0-100)
[2025-03-08 05:35] LABS: Atypical Lymphs 2.0 % (0-5)
[2025-03-08] MEDS: pantoprazole 40 mg SDV IVP ×2 (08:07→21:18)
--- NOTE | 2025-03-08 12:26 | PM.CONSULT ---
Providers/Reason For Consult Consulting Physician/Specialty*: Clovis Martin MD Reason for Consult*: GI bleeding on DAPT for CAD Requesting Physician: Brooke Patel MD Attending Physician: Brooke Patel MD Primary Care Provider: Diana Garcia History of Present Illness History of Present Illness Tosha Perry is a 70 year old female with PMHx of CAD s/p 2 TOMMIE to Cx 12/24/2024 and 2 drug-eluting stents to the LAD on 12/27/2024, PVD s/p endovascular stenting, HLD, pre-diabetes, CKD 3, prior DVT s/p IVC filter (not on true AC), prior GIB from gastric ulcers admitted 01/05/25 for dark stool and hematemisis. Gen surgery has seen the patient and EGD not performed per patient's 's preference for medical therapy trial first. She has had no recurrence of hematemisis since admission. Hgb has mildly decreased from 10 to 8.8. Patient has constipated but after medication has had a large amount of defecation. Patient feeling better today and would like to eat. No CP, SOB, lightheadedness. EKG personally interpreted 03/07/2025: Sinus bradycardia heart rate 54 bpm. Otherwise normal EKG. Compared to EKG on 02/14/2025, there is no significant change. Echo 12/24/24: 1. Normal left ventricular size, systolic function and wall thickness, with no regional wall motion abnormalities. Left ventricular ejection fraction is estimated at 70%. 2. Grade II/IV diastolic dysfunction, moderately elevated filling pressures. 3. Moderate pulmonary hypertension. Medications/Allergies Home Medications ?Medication ?Instructions ?Recorded ?Confirmed ?Last Taken ?Type Bone growth stimulator #1 ea 01/22/23 03/07/25 Unknown Rx Bone growth stimulator #1 ea 02/05/23 03/07/25 Unknown Rx fluticasone propionate 50 1 spray intranasal BID PRN 09/27/23 03/07/25 03/06/25 History mcg/actuation nasal allergies spray,suspension gabapentin 300 mg capsule 300 mg PO TID 09/27/23 03/07/25 03/05/25 History tens unit for cervical #1 ea 12/16/23 03/07/25 Unknown Rx oxycodone 10 mg tablet 10 mg PO Q8H PRN Pain 0903/07/25 01/04/25 History insulin syringes (disposable) 1 mL #25 ea 05/30/24 03/07/25 Unknown Rx ropinirole 5 mg tablet 5 mg PO BID #270 tabs 10/25/24 03/07/25 03/06/25 Rx baclofen 10 mg tablet 5 mg (1/2 x 10 mg) PO Q12H PRN 11/07/24 03/07/25 03/05/25 Rx Muscle Spasm #30 tabs ramelteon 8 mg tablet 8 mg PO BEDTIME 12/24/24 03/07/25 03/05/25 20:00 History clopidogrel 75 mg tablet 75 mg PO DAILY 30 days #30 tabs 12/26/24 03/07/25 02/13/25 Rx pantoprazole 40 mg tablet,delayed 40 mg PO Q12H 30 days #60 tabs 12/26/24 03/07/25 03/05/25 Rx release (Protonix) potassium chloride 20 mEq 20 meq PO DAILY #30 tabs 12/26/24 03/07/25 02/13/25 Rx tablet,extended release ranolazine 500 mg tablet,extended 500 mg PO BID #180 tabs 01/01/25 03/07/25 03/05/25 Rx release,12 hr albuterol sulfate 90 mcg/actuation 2 inh inhalation Q4H PRN shortness 01/03/25 03/07/25 01/04/25 Rx aerosol inhaler of breath or wheezing #18 grams promethazine 25 mg tablet 25 mg PO Q6H PRN Nausea 01/03/25 03/07/25 Unknown History lidocaine 5 % topical patch 1 patch topical [id number] PRN Pain 01/05/25 03/07/25 Unknown History adalimumab 40 mg/0.4 mL 40 mg (0.4 mL) SUBCUT Q14D #2 ea 02/07/25 03/07/25 02/07/25 Rx subcutaneous syringe kit (Humira(CF)) levothyroxine 125 mcg tablet 125 mcg PO DAILY #30 tabs 02/13/25 03/07/25 03/05/25 Rx aspirin 81 mg tablet,delayed 81 mg PO DAILY 02/14/25 03/07/25 03/05/25 History release atorvastatin 40 mg tablet 40 mg PO BEDTIME 02/14/25 03/07/2503/04/25 20:00 History folic acid 1 mg tablet 1 mg PO DAILY 02/14/25 03/07/25 03/05/25 History furosemide 20 mg tablet 40 mg PO QAM 02/14/25 03/07/25 02/13/25 History nitroglycerin 0.4 mg sublingual See Rx Instructions .Route .COMPLEX 02/14/25 03/07/25 Unknown History tablet furosemide 40 mg tablet 40 mg PO DAILY 03/07/25 03/07/25 03/06/25 History Allergies Allergy/AdvReac Type Severity Reaction Status Date / Time venlafaxine (From Effexor) Allergy Severe ADR-Agitate Verified 01/18/25 12:50 d ibuprofen Allergy Unknown ADR-Anxiety Verified 01/18/25 12:50 tizanidine Allergy Unknown Unknown Verified 01/18/25 12:50 acetaminophen Allergy ADR-Anxiety Verified 01/18/25 12:50 amitriptyline Allergy ADR-Agitate Verified 01/18/25 12:50 d diphenhydramine (From Allergy ADR-Agitate Verified 01/18/25 12:50 Benadryl) d morphine Allergy ADR-Halluci Verified 01/18/25 12:50 nating prochlorperazine (From Allergy Unknown Verified 01/18/25 12:50 Compazine) leflunomide AdvReac Intermediate GI adverse Verified 01/18/25 12:50 reactions sulfasalazine AdvReac Intermediate ADR-Nausea Verified 01/18/25 12:50 and acid reflux Current Medications Generic Name Dose Route Start Last Admin Trade Name Freq PRN Reason Stop Dose Admin Amoxicillin/Clavulanate Potassium 1 tab 03/07/25 21:00 03/08/25 04:11 Amoxicillin-Clav 875-125 Mg Tablet PO 03/12/25 20:59 1 tab BID KIM Administration Protocol Aspirin 81 mg 03/07/25 12:50 03/08/25 04:12 Aspirin 81 Mg Ec Tablet PO 81 mg DAILY KIM Administration Atorvastatin Calcium 40 mg 03/07/25 21:00 03/07/25 22:25 Atorvastatin 40 Mg Tablet PO 40 mg BEDTIME KIM Administration Clopidogrel Bisulfate 75 mg 03/07/25 12:50 03/08/25 04:12 Clopidogrel 75 Mg Tablet PO 75 mg DAILY KIM Administration Gabapentin 300 mg 03/07/25 21:00 03/08/25 12:12 Gabapentin 300 Mg Capsule PO 300 mg TID KIM Administration Lactated Ringer's 1,000 mls @ 75 mls/hr 03/08/25 09:30 03/08/25 09:44 Lactated Ringers IV 75 mls/hr .[id number] KIM Administration Levothyroxine Sodium 125 mcg 03/08/25 05:00 03/08/25 04:12 Levothyroxine 125 Mcg Tablet PO 125 mcg DAILY KIM Administration Oxycodone HCl 10 mg 03/07/25 14:19 03/08/25 12:12 Oxycodone 5 Mg Ir Tab/Cap PO 10 mg Q8H PRN Administration SEVERE PAIN Pantoprazole Sodium 40 mg 03/07/25 20:00 03/08/25 08:07 Pantoprazole 40 Mg Sdv IVP 40 mg Q12H KIM Administration Ropinirole HCl 5 mg 03/07/25 21:00 03/08/25 04:11 Ropinirole 2 Mg Tablet PO 5 mg BID KIM Administration Sucralfate 1 gm 03/08/25 09:30 03/08/25 09:43 Sucralfate 1 Gm Tablet PO 1 gm Q6H KIM Administration PFSH Acute PFSH: Medical History (Updated 03/08/25 @ 12:39 by Clovis Martin MD) Rheumatoid arthritis flare Coronary artery disease Pneumonia DVT (deep venous thrombosis) Acute GI bleeding History of deep vein thrombosis GERD (gastroesophageal reflux disease) Pre-operative clearance Acute anemia Hematoma complicating a procedure Cervical adenopathy GI bleed Osteoarthritis, shoulder Cervical spondylosis with myelopathy GERD with esophagitis Allergic rhinitis due to allergen RLS (restless legs syndrome) Substance or medication-induced sleep disorder, insomnia type Anxiety and depression High risk medication use Seropositive rheumatoid arthritis of multiple sites Extrapyramidal and movement disorder CKD (chronic kidney disease) stage 3, GFR 30-59 ml/min Lung nodule, solitary Prediabetes Hyperlipidemia Iron deficiency anemia Hypothyroidism Surgical History S/P insertion of IVC (inferior vena caval) filter Status post cervical spinal fusion History of cholecystectomy History of appendectomy History of delivery History of hysterectomy with bilateral oophorectomy History of ankle surgery left Previous back surgery Social History Smoking and tobacco/nicotine status: former use of tobacco/nicotine Quit status (tobacco/nicotine): has quit using Year quit tobacco: 2009 Former quit date comment: Smoked for 9 months Alcohol intake: current Alcohol intake frequency: holidays/special occasions only Substance/Drug Use: never Additional social history: Patient tells me that after her accident she is chronically on oxycodone 10 mg 3 times daily. She is recently full code on 12/24/2024 admission Vitals/I&O/Wt Last Vital Signs Temp 97.4 F L 03/08/25 11:14 Pulse 56 L 03/08/25 11:14 Resp 17 03/08/25 12:12 BP 125/56 03/08/25 11:14 Pulse Ox 96 03/08/25 11:14 O2 Del Method Room Air 03/08/25 11:14 03/07/25 03/08/25 03/08/25 22:59 06:59 14:59 Intake Total 200 / 2200 1000 / 3200 20 / 20 Output Total 400 / 400 Balance 200 / 1000 1000 / 2000 -380 / -380 Weight last 48 hrs Weight 144 lb Weight 139 lb 7 oz Weight 156 lb Physical Exam Narrative: General: In no acute distress Neck: No jugular venous distention or carotid bruits Heart: Normal S1 and S2 with a regular rate and rhythm, no cardiac murmurs Lungs: Normal respiratory effort with no use of intercostal muscles, clear lungs sounds to auscultation Extremities: No lower extremity edema Neuro: Alert and oriented x 3 Data 03/08/25 03:53 03/08/25 03:53 Micro: Microbiology 03/07/25 06:22 Urine Culture - Preliminary Urine Catheterized A&P Assessment and plan 1. Coronary artery disease: 2. PAD (peripheral artery disease): 3. Upper GI bleed: 4. Sinus bradycardia: 5. Chronic heart failure with preserved ejection fraction: Plan: - Patient is currently hemodynamically and cardiovascularly stable. No signs of active bleeding the last day but should continue with serial Hgbs to make sure not drifting down further - Due to recent coronary stenting with 4 Jayla in 12/2024, I would not stop her DAPT at this time. - continue with current cardiac medical regimen including asa, clopidogrel, statin - due to chronic HFpEF, would discharge on prn lasix. Agree with holding lasix currently due to evidence of ZAHRA PDMP PDMP Reviewed: Not Reviewed Coding Level of Care Code 10072 Diagnoses Coronary artery disease I25.10 PAD (peripheral artery disease) I73.9 Upper GI bleed K92.2 Sinus bradycardia R00.1 Chronic heart failure with preserved ejection fraction I50.32
--- NOTE | 2025-03-08 14:34 | P.PN_ITS ---
Subjective 2 Subjective: the patient was seen in the morning, reported she is doing well. no more nausea or any hematemesis. she is able to tolerate clear liquid diet and to advance to GI soft diet. cbc reviewed mild low Hb. however she was having some rash on both feets before coming to the hospital, which is itchy and also along her web spaces with some tracks?, could be scabies, no such rashes any where else and no bites recalled by the patient Vitals/I&O/Wt Last Vital Signs Temp 97.4 F L 03/08/25 11:14 Pulse 56 L 03/08/25 11:14 Resp 17 03/08/25 12:12 BP 125/56 03/08/25 11:14 Pulse Ox 96 03/08/25 11:14 O2 Del Method Room Air 03/08/25 11:14 03/07/25 03/08/25 03/08/25 22:59 06:59 14:59 Intake Total 200 / 2200 1000 / 3200 20 / 20 Output Total 400 / 400 Balance 200 / 1000 1000 / 2000 -380 / -380 Weight last 48 hrs Weight 65.317 kg Weight 63.248 kg Weight 70.76 kg Physical Exam 2 Narrative: General: Alert and oriented, lying comfortably without any distress HEENT: Normocephalic, atraumatic, grossly unremarkable exam Cardio: normal rate rhythm, normal S1-S2 without any murmurs, rubs, or gallops and JVD normal Respiratory: normal vascular breathing on auscultation without any wheezes, stridor, rhonchi GI: Abdomen soft, nontender, nondistended, normoactive bowel sounds present all 4 quadrants, Neuro: intact cranial nerves motor and sensory and cerebellar/coordination function without any focal neurological deficit Behavior: Appropriate and cooperative Extremities: Adequate palpable pulses, mild pallor, no icterus, mild trace Data 03/08/25 03:53 03/08/25 03:53 Micro: Microbiology 03/07/25 06:22 Urine Culture - Preliminary Urine Catheterized A&P Assessment and plan 1. Hematemesis with nausea: Gastric fluid occult positive patient Plavix and ASA (hx of recent cardiac stents) and to continue since the bleeding is not life threatening Hemodynamically stable No further episodes of hematemesis since admission - Seen by general surgery (Dr. Vail), EGD was offered, patient is declining at this time in lieu of risks, and surgery signed off - Consider CTA of abdomen if continues to have hematemesis - PPI bid - CBC [id number] and if stable then consider discharge Continue PPI, ordered pantoprazole 40 mg IV BID - cards onboard and to cont DAPT and statins - monitor hemodynamics and maintain MAP above 65mmhg 2. Microcytic anemia: anemia work up reviewed likely acute on chronic blood loss anemia considering hematemsis? cont monitoring CBC 3. ZAHRA (acute kidney injury): currently improving, likely dehydration since Osmol was high adequate hydration and encourage oral intake monitor renal parameters and electrolytes with correction accordingly 4. Scabies: Patient reported having active foot lesions which were itchy and there were tracking clark along the webspaces Possible scabies? Permethrin once application Contact isolation Dermatology referral at the time of discharge 5. PAD (peripheral artery disease): patient having severe PAD cont DAPT and statins outpatient cards followup 6. S/P insertion of IVC (inferior vena caval) filter: stable, had a past medical history of GI bleed and ulcers, and left leg DVT as per retrospect notes review not on full dose anticoagulation, as it seems from retrospect notes that the patient had GI bleed therefore was discontinued patient not fully aware of it fu with the pcp/cards at the time of discharge 7. Chronic heart failure with preserved ejection fraction: patient is euvolemic resumed patient ranolazine and nitro as needed for chest pain Continue aspirin statin and Plavix hold lasix at the moment gentle hydration to cont and to monitor her o2 sats, if signs of fluid load then to hold fluids Telemetry 8. Coronary artery disease involving [place] coronary artery of [place] heart without angina pectoris: Continue dual antiplatelet therapy patient is s/p stenting Cardiology on board Rest of the plan as mentioned above 9. Right otitis media: as per the previous admitting MASTIC [employer]ER and physician, to be treated with augmentin and to continue 10. COPD (chronic obstructive pulmonary disease): duonebs scheduled q6hrly monitor O2 sats 11. Chronic neck pain: Patient having chronic neck pain back pain Gabapentin reduced dose 100 mg 3 times daily and baclofen to continue Adequate analgesia as needed 12. Hypothyroidism: Continue home dose levothyroxine 125 mcg daily Plan: VTE Ppx: SCDs only. No pharmacological prophylaxis due to active hematemesis. PDMP PDMP Reviewed: Not Reviewed Attestations 2 Medical Necessity Statement*: Patient will stay overnight to establish stability of her hemoglobin since having GI bleed history and hematemesis and further optimization of her chronic comorbidities, Time Spent in Patient Care: 16 - 35 minutes (>than 50% of time sp ent in counselling and/or direct pt care on unit) . Other Attestations: Patient condition has been discussed at length with the patient/family, I have independently reviewed the chart labs imaging/diagnostics/EKG. the goals of care and code status with the patient/family/NOK/legal parts counter representative, and documented accordingly. The management has been done according to the current clinical condition with respect to patient goals of care and based on recommendations/guidelines. The patient/family has been informed about the current condition and further plan of care. Agreed with the plan of care and understood without any language barrier. Every effort was made to ensure accuracy of fuel cell engineer. Any obvious errors or omissions should be clarified with the author of the document. Coding Level of Care Code Acute Code for Chg Fwd Diagnoses Hematemesis with nausea K92.0 Nausea presence: with nausea Microcytic anemia D50.9 ZAHRA (acute kidney injury) N17.9 Scabies B86 PAD (peripheral artery disease) I73.9 S/P insertion of IVC (inferior vena caval) filter Z95.828 Chronic heart failure with preserved ejection fraction I50.32 Coronary artery disease involving [place] coronary artery of [place] heart without angina pectoris I25.10 Coronary Disease-Associated Artery/Lesion type: [place] artery Associated angina: without angina [place] vs. transplanted heart: king salmon heart Right otitis media H66.91 COPD (chronic obstructive pulmonary disease) J44.9 Chronic neck pain M54.2; G89.29 Hypothyroidism E03.9
--- NOTE | 2025-03-08 15:08 | PM.PN ---
Subjective Subjective: No acute events overnight No hematochezia no melena Vitals/I&O/Wt Last Vital Signs Temp 97.4 F L 03/08/25 11:14 Pulse 56 L 03/08/25 11:14 Resp 17 03/08/25 12:12 BP 125/56 03/08/25 11:14 Pulse Ox 96 03/08/25 11:14 O2 Del Method Room Air 03/08/25 11:14 03/08/25 03/08/25 03/08/25 06:59 14:59 22:59 Intake Total 1000 / 3200 Output Total 400 / 400 Balance 999 / 1999 -380 / -380 Weight last 48 hrs Weight 144 lb Weight 139 lb 7 oz Weight 156 lb Physical Exam Narrative: Chest: Unlabored breathing room air. No lymphadenopathy. Heart: Regular rate and rhythm. Abdomen: Soft, nontender, nondistended. No masses or lymphadenopathy. Data 03/08/25 03:53 03/08/25 03:53 Micro: Microbiology 03/07/25 06:22 Urine Culture - Preliminary Urine Catheterized A&P Assessment and plan 1. Upper GI bleed: Plan: 70-year-old female whom surgery was consulted to rule out upper GI bleed. No clinical evidence of upper GI bleed. Will sign off. PDMP PDMP Reviewed: Not Reviewed Attestations Medical Necessity Statement*: N/A Coding Level of Care Code 25600 Diagnoses Upper GI bleed K92.2
[2025-03-08] MEDS: ranolazine (12HR) 500 mg Tablet PO (16:15)
[2025-03-08] MEDS: permethrin cream 5% 60 gm 1 APPLIC TOPICAL (16:16)
[2025-03-09] VITALS (8 sets, daily range): BP systolic 136–147; BP diastolic 64–80; PULSE 49–67; RESP 16–17; TEMP 36.4–36.9; O2SAT 95–98
[2025-03-09] MEDS: ranolazine (12HR) 500 mg Tablet PO (04:37)
[2025-03-09] MEDS: oxyCODONE 5 mg IR Tab/Cap 10 MG PO ×2 (06:10→13:07)
[2025-03-09] MEDS: pantoprazole 40 mg SDV IVP (08:39)
[2025-03-09 09:29] LABS: Hematocrit 28.8 % (36-47); Hemoglobin 9.30 g/dL (11.27-16.99); Mean Corpuscular HGB Conc 32.3 g/dL (30-55); Mean Corpuscular Hemoglobin 27.9 pg (27-33); Mean Corpuscular Volume 86.5 fl (85-98); Nucleated Red Blood Cells % 0 %; Platelet Count 245 10^3/cmm (157-399); Red Blood Count 3.33 10^6/uL (3.85-5.65); White Blood Count 3.56 10^3/uL (3.29-11.43)
[2025-03-09 09:54] LABS: Alanine Aminotransferase 7 U/L (0-33); Albumin Level 3.4 g/dL (3.5-5.2); Alkaline Phosphatase 129 U/L (35-105); Anion Gap 12.5 (5-19); Aspartate Amino Transferase 19 U/L (0-32); Blood Urea Nitrogen 15 mg/dL (8-23); Calcium 9.0 mg/dL (8.5-10.5); Carbon Dioxide 24 mmol/L (22-29); Chloride 103 mmol/L (98-107); Globulin 3.7 g/dL (1.3-4.6); Glucose 119 mg/dL (65-115); Osmolality Calculated 284 mOsm/kg (285-295); Potassium 3.5 mmol/L (3.5-5.1); Sodium 136 mmol/L (136-145); Total Protein 7.1 g/dL (6.6-8.7)
--- NOTE | 2025-03-09 12:40 | P.PN_ITS ---
Subjective 2 Subjective: Feeling better. Took shower and feels ready to go home. No CP, SOB, melena, hematochezia over the last 48 hours Vitals/I&O/Wt Last Vital Signs Temp 97.7 F 03/09/25 12:06 Pulse 53 L 03/09/25 12:06 Resp 17 03/09/25 12:06 BP 143/64 03/09/25 12:06 Pulse Ox 98 03/09/25 12:06 O2 Del Method Room Air 03/09/25 12:06 03/08/25 03/09/25 03/09/25 22:59 06:59 14:59 Intake Total 240 / 260 1120 / 1380 120 / 120 Balance 240 / -140 1120 / 980 120 / 120 Weight last 48 hrs Weight 156 lb 8 oz Weight 144 lb Physical Exam 2 Narrative: General: In no acute distress Neck: No jugular venous distention or carotid bruits Heart: Normal S1 and S2 with a regular rate and rhythm, no cardiac murmurs Lungs: Normal respiratory effort with no use of intercostal muscles, clear lungs sounds to auscultation Extremities: No lower extremity edema Neuro: Alert and oriented x 3 Data 03/09/25 08:43 03/09/25 08:43 Micro: Microbiology 03/07/25 06:22 Urine Culture - Final Urine Catheterized A&P Assessment and plan 1. Coronary artery disease: 2. PAD (peripheral artery disease): 3. Upper GI bleed: 4. Sinus bradycardia: 5. Chronic heart failure with preserved ejection fraction: Plan: - Patient is cardiovascularly stable. No signs of active bleeding the last 2 days and hemaglobin improved from 8.8 to 9.3 today - continue current medical regimen including DAPT - lasix held due to ZAHRA. Cr improved. Weigh daily and if gains 3 pounds or develops edema, restart lasix at 20mg daily dose - can be discharged from Cardiology standpoint - scheduled to see Rn [facility] Dr. Mckinley in office this week PDMP PDMP Reviewed: Not Reviewed Attestations 2 Medical Necessity Statement*: being dishcarged Coding Level of Care Code 60314 Diagnoses Coronary artery disease I25.10 PAD (peripheral artery disease) I73.9 Upper GI bleed K92.2 Sinus bradycardia R00.1 Chronic heart failure with preserved ejection fraction I50.32
--- NOTE | 2025-03-09 15:35 | PM.DCS ---
Discharge Providers Date of Admission: 03/07/25 09:33 Date of Discharge: March 09, 2025 Attending Provider at Admission: Perico Gonzalez Attending Provider at Discharge: Brooke Patel MD Primary Care Provider: Diana Garcia Diagnoses at Discharge Discharge Diagnosis 1. Coronary artery disease involving pilot point coronary artery of pilot point heart without angina pectoris: 2. PAD (peripheral artery disease): 3. Upper GI bleed: 4. Sinus bradycardia: 5. Chronic heart failure with preserved ejection fraction: Reason for Visit Reason for Visit: Hallucinations/ Dark Brown Emesis Brief History: As per the previous retrospective notes review at the time of admission: HPI was obtained via direct patient interview. Patient is an inconsistent/unreliable historian. Tosha Perry is a 70 year old female with PMHx of CAD s/p TOMMIE, PVD s/p endovascular stenting, HLD, pre-diabetes, CKD 3, prior DVT s/p IVC filter (not on true AC), hypothyroidism, GERD, SHAUNNA, prior GIB, RLS, RA, anxiety and depression. Patient presented to [facility] ED on 03/07/25 out of concern for coffee-ground emesis started yesterday morning (03/06/25). Reports vomiting blood repeatedly, filling up a container chcf full. Notes associated symptoms of severe diffuse abdominal pain and sensation of abdominal distention and bloating. Notes increased flatulence. Describes abdominal pain as both intermittent and constant. Pain is characterized as severe, sharp and cramping, which at times radiates to the right shoulder blade. Pain exacerbated with food intake, last eaten 2 days ago. She has been able to tolerate oral fluids intermittently (mostly alexa priscilla over ice). Reports presence of constipation, last BM wednesday (03/02/25), which she describes as a tiny rabbit turds. Denies melena and hematochezia. Reports prior diagnosis of gastric ulcers on upper endoscopy. Reports adherence with home protonix and sucrulfate. Denies fever, chills, URI symptoms, chest pain, SOA (except when climbing stairs), palpitations and change in micturition. Reports presence of a headached that has been ongoing for months. Reports sinus pressure, congestion and drainage, as well as right ear pain (recent started 3 days ago). Hospital Course Hospital Course During patient hospital stay she was monitored for any further hemoglobin drop. Surgery consulted however the patient did not wanted to proceed with endoscopy. She was kept on Protonix twice daily and sucralfate and no concerning hematemesis or melena episode happened during her hospital stay. And her CBC did not drop significantly and remained stable at the time of discharge. Cardiology consulted considering the patient had previous history of GI bleed and currently she is s/p stenting and is on dual antiplatelets which could be the trigger of hematemesis. She has past medical history of GI ulcers. Based on her current clinical condition and weighing the risk and benefits she was continued on dual antiplatelet therapy with adequate GI prophylaxis. She had microcytic anemia and anemia workup was done and discharged on iron supplements considering GI ulcers for possible blood loss. He had ZAHRA and it resolved after adequate hydration and treatment. The patient also was documented to have right otitis media therefore discharged on Augmentin for 3 to 5 days. She had reported some rash on her both feet that was itchy and involving the toe webspaces. There was concern of scabies therefore permethrin was provided with adequate contact isolation. And it was better. Therefore to follow-up with the primary care physician after discharge. She remained stable her diet was advanced gradually. He had mild sinus bradycardia which was at rest however it gradually improved when she moves around. It was asymptomatic. After clearance from cardiology involving surgery recommendation, the patient was given outpatient referral to the geek squad manager, surgery and cardiology for follow-up. Stability was established before discharge. Medication reconciled after confirmation and adequate referrals were provided. Patient condition has been discussed at length with the patient/family, I have independently reviewed the chart labs imaging/diagnostics/EKG. the goals of care and code status with the patient/family/NOK/legal retail account representative, and documented accordingly. The management has been done according to the current clinical condition with respect to patient goals of care and based on recommendations/guidelines. The patient/family has been informed about the current condition and further plan of care. Agreed with the plan of care and understood without any language barrier. Every effort was made to ensure accuracy of insurance adviser. Any obvious errors or omissions should be clarified with the author of the document. Physical Exam Narrative: General: Alert and oriented, lying comfortably without any distress, came out of the shower and feeling comfortable no hematemesis. HEENT: Normocephalic, atraumatic, grossly unremarkable exam Cardio: normal rate rhythm, normal S1-S2 without any murmurs, rubs, or gallops and JVD normal Respiratory: normal vascular breathing on auscultation without any wheezes, stridor, rhonchi GI: Abdomen soft, nontender, nondistended, normoactive bowel sounds present all 4 quadrants, Neuro: intact cranial nerves motor and sensory and cerebellar/coordination function without any focal neurological deficit Behavior: Appropriate and cooperative Extremities: Adequate palpable pulses, mild pallor, no icterus, mild trace Discharge Data Studies Completed and Pending Completed Studies During Hospitalization Category Date Time Status CT abdomen pelvis w con* [id number] Stat Cat Scan 03/07/25 06:09 Completed XR chest 1V portable [id number] Stat Exams 03/07/25 05:41 Completed Radiology Impressions Chest X-Ray 03/07/25 05:41 IMPRESSION: No acute findings. Abdomen/Pelvis CT 03/07/25 06:09 IMPRESSION: No acute findings. COMMENTS: For patients with an IVC filter, recommend assessment for a management plan for the patient's IVC filter. If there is no established management plan, recommend referral to an interventional clinician on a nonemergent basis for evaluation. Laboratory Results WBC 3.56 10^3/uL (3.29-11.43) 03/09/25 08:43 RBC 3.33 10^6/uL (3.85-5.65) L 03/09/25 08:43 Hgb 9.30 g/dL (11.27-16.99) L 03/09/25 08:43 Hct 28.8 % (36-47) L 03/09/25 08:43 MCV 86.5 fl (85-98) 03/09/25 08:43 MCH 27.9 pg (27-33) 03/09/25 08:43 MCHC 32.3 g/dL (30-55) 03/09/25 08:43 RDW 14.4 % (12.1-15.1) 03/09/25 08:43 Plt Count 245 10^3/cmm (157-399) 03/09/25 08:43 MPV 9.8 fL (7.4-10.4) 03/09/25 08:43 Neut % (Auto) 35.6 % 03/09/25 08:43 Lymph % (Auto) 38.5 % 03/09/25 08:43 [place] % (Auto) 16.0 % 03/09/25 08:43 Eos % (Auto) 9.0 % 03/09/25 08:43 Baso % (Auto) 0.6 % 03/09/25 08:43 Neut # (Auto) 1.27 10^3/uL (1.8-7.7) L 03/09/25 08:43 Lymph # (Auto) 1.4 10^3/uL (0.8-4.8) 03/09/25 08:43 [place] # (Auto) 0.6 10^3/uL (0.2-0.9) 03/09/25 08:43 Eos # (Auto) 0.3 10^3/uL (0.0-0.8) 03/09/25 08:43 Baso # (Auto) 0.0 10^3/uL (0.0-0.1) 03/09/25 08:43 Nucleated RBC % (auto) 0 % 03/09/25 08:43 Total Counted 100 (0-100) 03/08/25 03:53 Atypical Lymphs % 2.0 % (0-5) 03/08/25 03:53 Absolute Neutrophils 1.1 10^3/cmm (1.4-6.5) L 03/07/25 14:25 Segmented Neutrophils 45 % 03/08/25 03:53 Band Neutrophils Not Reportable 03/08/25 03:53 Absolute Lymphocytes 1.3 10^3/cmm (1.2-3.4) 03/08/25 03:53 Lymphocytes (Manual) 35 % 03/08/25 03:53 Monocytes (Manual) 13.0 % 03/08/25 03:53 Absolute Monocytes 0.5 10^3/cmm (0.1-0.6) 03/08/25 03:53 Eosinophils (Manual) 5 % 03/08/25 03:53 Absolute Eosinophils 0.2 10^3/cmm (0.0-0.7) 03/08/25 03:53 Basophils (Manual) 0.0 % 03/08/25 03:53 Absolute Basophils 0.0 10^3/cmm (0.0-0.2) 03/08/25 03:53 Nucleated RBCs # 0.0 /100WBC 03/09/25 08:43 Platelet Estimate Normal (Normal) 03/08/25 03:53 PT 13.00 SECONDS (12.1-14.9) 03/07/25 05:54 INR 0.91 (0.8-1.2) 03/07/25 05:54 APTT 36.5 SECONDS (23.9-36.7) 03/07/25 05:54 Sodium 136 mmol/L (136-145) 03/09/25 08:43 Potassium 3.5 mmol/L (3.5-5.1) 03/09/25 08:43 Chloride 103 mmol/L (98-107) 03/09/25 08:43 Carbon Dioxide 24 mmol/L (22-29) 03/09/25 08:43 Anion Gap 12.5 (5-19) 03/09/25 08:43 BUN 15 mg/dL (8-23) 03/09/25 08:43 Creatinine 1.1 mg/dL (0.5-0.9) H 03/09/25 08:43 GFR Calculation Not Reportable 03/09/25 08:43 Glucose 119 mg/dL (65-115) H 03/09/25 08:43 Calculated Osmolality 284 mOsm/kg (285-295) L 03/09/25 08:43 Calcium 9.0 mg/dL (8.5-10.5) 03/09/25 08:43 Magnesium 2.0 mg/dL (1.7-2.3) 03/08/25 03:53 Iron 43 ug/dL (37-145) 03/07/25 05:54 TIBC 332 mcg/dl 03/07/25 05:54 % Saturation 12.9 % (20-50) L 03/07/25 05:54 Unsat Iron Binding 289 ug/dL (112-347) 03/07/25 05:54 Total Bilirubin 0.3 mg/dL (0.15-1.2) 03/09/25 08:43 AST 19 U/L (0-32) 03/09/25 08:43 ALT 7 U/L (0-33) 03/09/25 08:43 Alkaline Phosphatase 129 U/L (35-105) H 03/09/25 08:43 Creatine Kinase 69 U/L (26-192) 03/07/25 05:54 Total Protein 7.1 g/dL (6.6-8.7) 03/09/25 08:43 Albumin 3.4 g/dL (3.5-5.2) L 03/09/25 08:43 Globulin 3.7 g/dL (1.3-4.6) 03/09/25 08:43 Lipase 21 U/L (13-60) 03/07/25 05:54 Vitamin B12 379 pg/mL (232-1245) 03/07/25 05:54 Folate > 20.0 ng/mL (4.8-37.3) 03/07/25 05:54 TSH 1.05 uIU/mL (0.27-4.20) 03/07/25 05:54 Urine Color Yellow (Yellow) 03/07/25 06:22 Urine Appearance Clear (CLEAR) 03/07/25 06:22 Urine pH 6.0 (5-7) 03/07/25 06:22 Ur Specific Ethel 1.010 (1.005-1.030) 03/07/25 06:22 Urine Protein Trace (Negative) A 03/07/25 06:22 Urine Glucose (UA) Negative (Normal) 03/07/25 06:22 Urine Ketones Negative (Negative) 03/07/25 06:22 Urine Blood Negative (Negative) 03/07/25 06:22 Urine Nitrate Negative (Negative) 03/07/25 06:22 Urine Bilirubin Negative (Negative) 03/07/25 06:22 Urine Urobilinogen 0.2 mg/dL (Negative) 03/07/25 06:22 Ur Leukocyte Esterase Negative (Negative) 03/07/25 06:22 Urine RBC 0-2 /hpf (0-2) 03/07/25 06:22 Urine WBC 0-5 /hpf (0-5) 03/07/25 06:22 Ur Squamous Epith Cells 0-5 /hpf (0-5) 03/07/25 06:22 Amorphous Sediment Not Reportable 03/07/25 06:22 Urine Bacteria 4+ /hpf (NONE) H 03/07/25 06:22 Hyaline Casts 2.87 /lpf 03/07/25 06:22 Gastric Occult Blood Positive (Negative) H 03/07/25 05:52 Blood Type O Positive 03/07/25 05:54 Rho(D) Type Rh positive 03/07/25 05:54 Antibody Screen Negative 03/07/25 05:54 Vitals Last Vital Signs Temp 97.7 F 03/09/25 13:53 Pulse 53 L 03/09/25 13:53 Resp 17 03/09/25 13:53 BP 143/64 03/09/25 13:53 Pulse Ox 98 03/09/25 13:53 O2 Del Method Room Air 03/09/25 12:06 Discharge Plan Discharge Patient Disposition: Home Condition: Stable Prescriptions: New amoxicillin-pot clavulanate 875-125 mg Tablet 1 tab PO BID 3 Days Qty: 6 0RF sucralfate 1 gram Tablet 1 g PO Q6H 60 Days Qty: 240 0RF ferrous sulfate [Iron (ferrous sulfate)] 325 mg (65 mg iron) tablet 325 mg PO DAILY Qty: 90 0RF Continued Humira(CF) 40 mg/0.4 mL syringe kit 40 mg SUBCUT Q14D Qty: 2 5RF levothyroxine 125 mcg tablet 125 mcg PO DAILY Qty: 30 0RF oxycodone 10 mg tablet 10 mg PO Q8H PRN (Reason: Pain) ropinirole 5 mg tablet 5 mg PO BID Qty: 270 0RF ramelteon 8 mg tablet 8 mg PO BEDTIME clopidogrel 75 mg tablet 75 mg PO DAILY 30 Days Qty: 30 0RF pantoprazole [Protonix] 40 mg tablet,delayed release (DR/EC) 40 mg PO Q12H 30 Days Qty: 60 0RF potassium chloride 20 mEq tablet extended release 20 meq PO DAILY Qty: 30 0RF promethazine 25 mg tablet 25 mg PO Q6H PRN (Reason: Nausea) albuterol sulfate 90 mcg/actuation HFA aerosol inhaler 2 inh INHALATION Q4H PRN (Reason: shortness of breath or wheezing) Qty: 18 0RF lidocaine 5 % adhesive patch,medicated 1 patch topical [id number] PRN (Reason: Pain) furosemide 20 mg tablet 40 mg PO QAM atorvastatin 40 mg tablet 40 mg PO BEDTIME aspirin 81 mg tablet,delayed release (DR/EC) 81 mg PO DAILY nitroglycerin 0.4 mg tablet, sublingual See Rx Instructions .ROUTE .COMPLEX Rx Instructions: DISSOLVE 1 TABLET UNDER THE TONGUE EVERY 5 MINUTES NEEDED FOR CHEST PAIN. DO NOT EXCEED A TOTAL OF 3 DOSES IN 15 MINUTES. folic acid 1 mg tablet 1 mg PO DAILY furosemide 40 mg tablet 40 mg PO DAILY fluticasone propionate 50 mcg/actuation spray,suspension 1 spray INTRANASAL BID PRN (Reason: allergies) baclofen 10 mg tablet 5 mg PO Q12H PRN (Reason: Muscle Spasm) Qty: 30 0RF ranolazine 500 mg Tablet Extended Release 12 Hr 500 mg PO BID Qty: 180 0RF Changed gabapentin 300 mg capsule 200 mg PO TID 90 Days Qty: 180 0RF No Action (DME) tens unit for cervical See Rx Instructions .Route .MEDSUPPLY Qty: 1 0RF Rx Instructions: As directed (DME) Bone growth stimulator See Rx Instructions .Route .MEDSUPPLY Qty: 1 0RF Rx Instructions: As directed (DME) Bone growth stimulator See Rx Instructions .Route .MEDSUPPLY Qty: 1 0RF Rx Instructions: As directed (DME) insulin syringes (disposable) 1 mL syringe See Rx Instructions .ROUTE .MEDSUPPLY Qty: 25 3RF Rx Instructions: As directed Telephone Sales Agent OK for DC: Cardiology and Surgery Discharge Order = DC NOW: Discharge Order (Routine); Ordered 03/09/25 Ordered By: Brooke Patel Referrals: Juan C Judge MD [Physician, General Surgery] - 2 weeks Referral Note: Patient having history of GI bleed, denied scope, on dual antiplatelet therapy postdischarge follow-up We have notified your physician's clinic of the need for a follow-up appointment to be scheduled. If you have not heard from them within the next 2 business days, please call them directly. Marco A Judd MD [Occupational Therapist, Gastroenterology] Referral Note: h/o GI bleed and no scope done in the past, post discharge stable, for follow up on DAPT therapy for CAD s/p stenting We have notified your physician's clinic of the need for a follow-up appointment to be scheduled. If you have not heard from them within the next 2 business days, please call them directly. Chava Mckinley M.D [Physician, Cardiology] Referral Note: h/o CAD s/p stenting for followup We have notified your physician's clinic of the need for a follow-up appointment to be scheduled. If you have not heard from them within the next 2 business days, please call them directly. Diana Garcia PA [Primary Care Provider, Physicians Lathe Operator] Referral Note: Postdischarge follow-up, was admitted as a case of GI bleed We have notified your physician's clinic of the need for a follow-up appointment to be scheduled. If you have not heard from them within the next 2 business days, please call them directly. Discharge Diet: Advance as tolerated, Cardiac and GI Soft Discharge Activity: Resume usual activity and Increase activity as tolerated Patient Instructions: Iron Supplements (By mouth), Sucralfate (By mouth), Amoxicillin/Clavulanate Potassium (By mouth) (Augmentin, Augmentin..., Gastrointestinal Bleeding (DC), Scabies (DC), COPD (Chronic Obstructive Pulmonary Disease) (DC), Opioid Safety, Pain Management, Patient Portal & Cece Instructions Discharge Attestations Time Spent in Discharge Care*: greater than 30 min Specific Discharge Activities: educating patient, educating and/or supporting family/caregiver, discussing with pcp/other providers, discussing with residential case manager/social workers/dc planners, documenting/other paperwork and evaluating patient/reviewing data Status at Discharge: Cognitive status at discharge: cognitively intact, Behavioral status at discharge: cooperative, Functional status at discharge: independent ambulation, Overall status at discharge: patient is back to baseline Quality Metrics Clinical Quality Measures [ No reported AMI, CVA or VTE this stay] Coding Level of Care Code Acute Code for Chg Fwd Diagnoses Coronary artery disease involving pilot point coronary artery of pilot [place] heart without angina pectoris I25.10 Coronary Disease-Associated Artery/Lesion type: pilot [place] artery [place] vs. transplanted heart: pilot point heart Associated angina: without angina PAD (peripheral artery disease) I73.9 Upper GI bleed K92.2 Sinus bradycardia R00.1 Chronic heart failure with preserved ejection fraction I50.32
== END 2025-03-09 13:45 | DRG 378 ==
LOC: ER 07:46 → MEDSURG 09:34
PROVIDERS: Family Medicine; Nurse Practitioner Gerontology; Admitting Provider Internal Medicine; Emergency Provider Emergency Medicine; PCP Physician Assistant; Visit Provider Student in an Organized Health Care Education/Training Program
DX: K92.2 Gastrointestinal hemorrhage, unspecified (principal); I50.32 Chronic diastolic (congestive) heart failure; N17.9 Acute kidney failure, unspecified; I25.10 Atherosclerotic heart disease of native coronary artery without angina pectoris; I73.9 Peripheral vascular disease, unspecified; R00.1 Bradycardia, unspecified; N18.30 Chronic kidney disease, stage 3 unspecified; E78.5 Hyperlipidemia, unspecified; R73.03 Prediabetes; E03.9 Hypothyroidism, unspecified; K21.9 Gastro-esophageal reflux disease without esophagitis; D50.9 Iron deficiency anemia, unspecified; G25.81 Restless legs syndrome; M05.9 Rheumatoid arthritis with rheumatoid factor, unspecified; F41.9 Anxiety disorder, unspecified; R33.9 Retention of urine, unspecified; J32.9 Chronic sinusitis, unspecified; H66.91 Otitis media, unspecified, right ear; E87.6 Hypokalemia; R19.5 Other fecal abnormalities; I95.9 Hypotension, unspecified; B86 Scabies; K59.00 Constipation, unspecified; F32.A Depression, unspecified; Z98.1 Arthrodesis status; Z79.82 Long term (current) use of aspirin; Z79.02 Long term (current) use of antithrombotics/antiplatelets; Z87.01 Personal history of pneumonia (recurrent); Z87.11 Personal history of peptic ulcer disease; Z86.718 Personal history of other venous thrombosis and embolism; Z95.828 Presence of other vascular implants and grafts; Z95.5 Presence of coronary angioplasty implant and graft; Z95.820 Peripheral vascular angioplasty status with implants and grafts
CPT/HCPCS: 36415; 51798; 71045; 74177; 80048; 80053; 81001; 82271; 82550; 82607; 82746; 83540; 83550; 83690; 83735; 84443; 85007; 85025; 85027; 85610; 85730; 86850; 86900; 87086; 93005; 94762; 96361; 96374; 96375; 99285; J0696; J2470; J3480; J7030; J7120; J7799; J9999

== ENCOUNTER 2025-03-15 05:28 | Emergency (ER) | payer MEDICARE, OTHER, SELFPAY ==
--- OUTSIDE RECORDS SUMMARY | 2024-07-17 03:30 | XMS_ITS ---
Author Organization [facility] Address [address] [place] [address] Care Team Providers Care Trimming Assembler Name Role Phone Diana Galvan Primary Care Provider Deedee Osei Unavailable [phone] Paxton Nobles Unavailable [phone] REASON FOR VISIT wants new mri Social History Sex Assigned At : Social History Observation Description Sex Assigned At Female Encounters Encounter Location Date Provider Diagnosis [facility] [place] [address] [place] [address] 07/17/2024 Paxton Nobles Plan Of Treatment Next Appt Details Provider Name:Mode Cabello, 04/11/2025 01:40:00 PM, [address] [place], [address], Progress Notes * BARRY VAN SDOB:[birth year] (70 yo F)Acc No.[id number]:07/17/2024 Progress Notes Patient: BARRY LIVINGSTON Provider: Rosalia Nobles APRN :1955 A ge:69 Y S ex:Female Date:07/17/2024 Address:[address] [place] [address] [address], [phone] Pcp:SHIV Chong Subjective: * Chief Complaints: * W ants new mri Billing Information: * Procedure Codes: Care Plan Details* * Electronic signature of Syed Nobles INSULATION INSPECTOR on 03/15/2025 at 05:38 AM ACTIVITIES MANAGER Sign off status: Pending * Provider: Rosalia Nobles APRN Date: 0 07/17/2024 Generated for Shen lindo/Sindy/Chandler on: 1 05/16/2024 05:38 AM ACTIVITIES MANAGER
[2025-03-15] VITALS (8 sets, daily range): BP systolic 88–126; BP diastolic 49–67; PULSE 49–71; RESP 12–22; TEMP 36.4; O2SAT 91–98
--- NOTE | 2025-03-15 05:30 | XR_ITS ---
WS: [id number] Exam: XR chest 1V portable [id number] Date/Time of Exam: 03/15/2025 5:30 AM Reason For Exam: chest pain, hx chf/cad Comparison 03/07/2025. Lungs are fully inflated and clear. Normal cardiomediastinal silhouette. Signs of coronary artery stenting. No pleural effusions. Bony structures are intact. Fusion hardware in the upper thoracic and visualized cervical spine. XR/XR chest 1V portable [id number] IMPRESSION: 1. No acute cardiopulmonary finding.
--- NOTE | 2025-03-15 05:30 | CTR_ITS ---
PROCEDURE INFORMATION: Exam: CT Head Without Contrast Exam date and time: 03/15/2025 5:39 AM Age: 70 years old Clinical indication: Injury or trauma; Other: Head trauma, R sided WALLER; Additional info: Head trauma, R sided WALLER, on dapt TECHNIQUE: Imaging protocol: Computed tomography of the head without contrast. Radiation optimization: All CT scans at this facility use at least one of these dose optimization techniques: automated exposure control; mA and/or kV adjustment per patient size (includes targeted exams where dose is matched to clinical indication); or iterative reconstruction. COMPARISON: CT head wo con* [id number] 02/14/2025 8:36 AM RADIATION DOSE METRICS: Total DLP (mGy-cm): 1128.48 FINDINGS: Brain: Normal. No hemorrhage. Unremarkable white matter. No mass effect. Cerebral ventricles: No ventriculomegaly. Paranasal sinuses: Visualized sinuses are unremarkable. No fluid levels. Mastoid air cells: Visualized mastoid air cells are well aerated. Bones: Unremarkable. No acute fracture. Soft tissues: Unremarkable. CT/CT head wo con* [id number] IMPRESSION: No acute intracranial abnormality.
--- NOTE | 2025-03-15 05:34 | ECG_ITS ---
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 Measurements Intervals [place] Rate: 64 P: 49 VT: 180 QRS: -7 QRSD: 90 T: 0 QT: 431 QTc: 446 Interpretive Statements SINUS RHYTHM LOW QRS VOLTAGE IN PRECORDIAL LEADS [QRS DEFLECTION < 1.0 mV IN CHEST LEADS] Compared to ECG 03/07/2025 06:16:44 Sinus bradycardia no longer present T-wave abnormality no longer present Electronically Signed On 03-16-2025 18:48:20 PERSONNEL ASSOCIATE by Sherine Greene M.D. [id number]
--- OUTSIDE RECORDS SUMMARY | 2025-03-15 05:38 | XMS_ITS | Patient Health Record ---
Author Organization [facility] Address [address] [place] [address] Care Team Providers Care Hatchery Manager Name Role Phone Desiree Gaming MD Primary Care Provider Unavailab Srinivasan Wilcox Unavailable [phone] Reason For Referral No Information Medications Medication [...] 50 MG Tablet Oral 03/23/2017 Active Creon 65623 UNIT Capsule Delayed Release Particles Oral 04/07/2017 Active Creon [id number] UNIT Capsule Delayed Release Particles Oral 02/18/2017 [...] End Date Medicare [place] MC37 [address] [place] [address] [id number] BARRY VAN Self - patient is the insured Medical (General) History Surgical History Surgery Date(Month/Year) Hysterectomy ,Status : Resolved Appendectomy ,Status : Resolved Foot Surgery ,Status : Resolved Cataract Surgery ,Status : Resolved Cholecystectomy ,Status : Resolved Eye Surgery ,Status : Resolved Gastric Surgery ,Status : Resolved Breast Surgery ,Status : Resolved
--- OUTSIDE RECORDS SUMMARY | 2025-03-15 05:38 | XMS_ITS | Data Portability ---
Author Organization [place] [facility] Address [address] [facility] [address] [place] [address] Care Team Providers Care Adapted Physical Education Aide Name Role Phone DIANA GARCIA Primary Care Provider Unavailabl e Assessment No assessment recorded. Plan of Treatment Reminders Order Date Submit Date Provider Last Modified By Organization Details Last Modified Time Details Appointments OFFICE VISIT 20 2024 01:20P Anny GARCIA PA-C Not available Not available Not available Lab CBC 2024 025 [email or web address] [facility], [address], [place], [address], 03/06/2025 08:07:27 BMP, serum or plasma 2024 025 [email or web address] [facility], [address], [place], [address], 03/06/2025 08:07:27 BMP, serum or plasma 2024 025 [email or web address], [address], [address], [place], [address], 12/11/2024 15:14:32 CBC 2024 025 [email or web address] [facility], [address], [address], [place], [address], 12/11/2024 15:14:32 Referral physical therapist referral 2024 025 [email or web address] [facility], [address], [place], [address], 12/06/2024 15:40:29 physical therapist referral [address], [address] [place], [address], 01/02/2025 15:03:25 Procedures None recorded. Surgeries None recorded. Imaging None recorded. Medication Orders atorvasta tin 40 mg tablet 2024 [id number], [address] [facility], [facility] [address], [address], 02/13/2025 15:20:22 ranolazin e ER 500 mg tablet,ex tended release,1 2 hr 2024 [facility]acy #[id number], [address] [facility], [address], [address], 02/13/2025 15:20:22 furosemid e 40 mg tablet 2024 025 [id number], [address] [facility], [facility], [place], [address], 02/13/2025 15:16:44 potassium chloride 40 mEq/15 mL oral liquid 2024 025 [id number], [address] [facility], [facility], [place], [address], 02/13/2025 15:16:44 gabapenti n 300 mg capsule [address]/Pharmacy #[id number], [address] [facility], [facility], [place], [address], 12/01/2024 09:30:07 ramelteon 8 mg tablet 2024 025 [facility]/Pharmacy #[id number], [address], [place], [address], 12/01/2024 09:30:10 promethaz ine 25 mg tablet 2024 025 [facility]/Pharmacy #[id number], [address], [address], [place], [address], 12/18/2024 05:01:36 folic acid 1 mg tablet 2024 025 [facility]/Pharmacy #[id number], [address], [address], [place], [address], 12/01/2024 09:30:09 pantopraz ole 40 mg tablet,de layed release [email or web address]/Pharmacy #[id number], [address], [address], [place], [address], 12/01/2024 09:30:07 Patient TargetsNo targets recorded. Patient [...] Address Organization Details Recorded Time Hand pain 95142452 Completed 202205/14/2024 NICOLE gustafson [place] Neft[facility] 07:55:21 Hand pain 70957806 Completed 202205/14/2024 NICOLE [place]afson [place] [facility] 07:55:15 Low back pain 625681178 Completed 202305/14/2024 NICOLE CRANE null, [facility] 5 18:20:21 Deep venous thrombosi s of lower extremity 452983324 Completed 202305/14/2024 at [facility] non occlusi ve. IVC placed due to no able to take blood thinner s. NICOLE gustafson, [facility] 5 07:54:08 Chronic pain 37849157 Active 2023 NICOLE CRANE null, [facility] 5 07:54:43 Hospital inpatient stay within past 30 days 95982559597 06 Completed 202305/14/2024 NICOLE gustafson, [facility] 5 07:55:38 History of cervical spine fusion 45327399689 Completed 202305/14/2024 NICOLE CRANE null, [facility] 5 07:55:29 Hypothyro idism 64231328 Active 2023 NICOLE CRANE null, [facility] 5 07:55:43 Depressiv e disorder 97712464 Active 2023 NICOLE CRANE null, [facility] 5 07:54:53 Gastroeso phageal reflux disease without esophagit is 670570483 Active 2023 NICOLE gustafson, [facility] 5 07:55:09 Anxiety 91686667 Active 2023 NICOLE CRANE null, [facility] 5 07:54:40 Rib pain 503703668 Completed 202305/14/2024 NICOLE HALESLYFNER null, [facility] 5 07:57:21 Nausea 723766855 Completed 202305/14/2024 NICOLE HAEFFNER null, [facility] 5 07:55:56 Peptic ulcer 51180337 Completed 202305/14/2024 NICOLE HAEFFNER null, [facility] 5 07:57:13 Pain in bilateral legs 96326682385 913578 Completed 202305/14/2024 NICOLE HAEFFNER null, [facility] 07:56:52 Pain in left lower limb 752213569 Completed 202305/14/2024 [facility] 07:57:01 Acquired dilation of bile duct 31464517047 43366 Completed 202305/14/2024 NICOLE HAEFFNER null, [facility] 07:54:30 Deep venous thrombosi s 439311914 Completed 202305/14/2024 NICOLE HALESLYFEDD null, [facility] 5 07:54:50 Anemia 481160434 Active 2023 NICOLE HAEFFNER null, [facility] 5 07:54:37 Pain in right arm 065952069 Completed 202305/14/2024 NICOLE HAEFFNER null, [facility] 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 Procedures Surgical History Date Name Laterality Status Provider Name and Address Organization Details Recorded Time 2024 fluoroscopic angiography of coronary artery with contrast and insertion of stent completed NICOLE CRANE [facility] 5 18:02:58 2024 plain X-ray of chest completed PAULETTE JASON [facility]et[facility] 5 00:10:[address] of abdomen and pelvis completed PAULETTE EREN [facility] 5 00:12:33 2023 insertion of arterial stent completed JER GARCIA PA-C [address] [place], [address], [facility] 4 15:12:39 2023 colonoscopy completed DIANA GARCIA PA-C [address] [place], [address], [facility] 4 17:29:05 2023 esophagogastroduodenoscopy completed DIANA GARCIA PA-C [address] [place], [address], [facility] 4 17:08:01 2023 ultrasonography of liver completed NICOLE CRANE [facility] 4 16:43:05 2023 primary posterior decompression cervical cord and fusion completed DIANA GARCIA PA-C [address] [place], [address], [facility] 4 13:58:12 2023 insertion of inferior vena caval filter completed DIANA GARCIA PA-C [address] [place], [address], [facility] 4 13:58:28 2022 primary fusion of cervical spine completed DIANA GARCIA PA-C [address] [place], [address], [facility] 3 12:50:26 Imaging Results None recorded. Procedure Notes None recorded. Medical Equipment None Reported. Allergies Allergen ID Allergen Name Allergen Category Reaction Reaction Severity Criticality Documentation Date Start Date Code Code System Note Provider Name and Address Organization Details Recorded Time 95045 Benadryl medicatio n Not available Not available Not available 03/12/2023 62715 7 RxNorm NICOLE SRIDHARLESLYEMORY ugstafson, [facility] 3 12:01:01 83804 amitripty line medicatio n Not available Not available Not available 03/12/2023 704 RxNorm NICOLEHOLLAND gustafson, [facility] 3 12:01:37 90398 tizanidin e medicatio n Not available Not available Not available 03/12/2023 21986 RxNorm NICOLE ROSA MARIA gustafson, [facility] 3 12:08:21 18625 morphine medicatio n confusion Not available [facility] 09/02/2023 7052 RxNorm DIANA GARCIA PA-C [address] [place], [address], [facility] 4 15:15:03 09288 venlafaxi ne medicatio n itching Not available Not available 02/13/2025 28856 RxNorm NICOLEMynor DEJESUSEDD gustafson, [facility] 5 14:50:24 00640 ibuprofen medicatio n Not available Not available [facility] 02/23/2025 5640 RxNorm Not Available wanda - External Data Service - prod 5 09:45:37 59274 acetamino phen medicatio n Not available Not available [facility] 02/23/2025 161 RxNorm Not Available wanda - External Data Service - prod 5 09:45:37 38125 prochlorp erazine medicatio n Not available Not available [facility] 02/23/2025 8704 RxNorm Not Available [facility] External Data Service - [facility] 5 09:45:37 16767 diphenhyd ramine medicatio n Not available Not available [facility] 02/23/2025 3498 RxNorm unrec ogniz ed react ion (text : Hyper activ e behav ior (find ing), code: 76982 000) (from exter nal sour e) Not Available [facility] External Data Service - [facility] 5 09:45:37 70600 leflunomi de medicatio n Not available Not available [facility] 02/23/20252024 31195 RxNorm Not Available [facility] External Data Service - [facility] 5 09:45:40 78369 sulfasala zine medicatio n Not available Not available [facility] 02/23/20252024 9524 RxNorm Not Available [facility] External Data Service - [facility] 5 09:45:40 19217 metoclopr amide Not available Not available Not available Not available 03/12/2025 6915 RxNorm Not Available [facility] External Data Service - [facility] 5 15:33:31 Medications Name Sig Start Date Stop Date [...] Updated DateTime 5 163.83 cm 23.8 kg/m2 20311.5 2 g 99 % 76 /min 18 /min 97 [degF] 136/80 mm[Hg] [facility] 14:52:39 Date Recorded Body height Body mass index (BMI) Body weight Oxygen saturation Heart rate Respiratory rate Body temperature Systolic And Diastolic Provider Name and Address Organization Details Last Updated DateTime 5 163.83 cm 24.2 kg/m2 67054.7 1 g 94 % 82 /min 20 /min 96.4 [degF] 114/60 mm[Hg] Meera Bowden [facility] 5 14:33:12 Date Recorded Body height Body mass index (BMI) Body weight Oxygen saturation Heart rate Respiratory rate Body temperature Systolic And Diastolic Provider Name and Address Organization Details Last Updated DateTime 5 163.83 cm 24.5 kg/m2 68032.8 9 g 95 % 80 /min 18 /min 97 [degF] 126/80 mm[Hg] [facility] 08:55:39 Date Recorded Body height Body mass index (BMI) Body weight Oxygen saturation Heart rate Respiratory rate Body temperature Systolic And Diastolic Provider Name and Address Organization Details Last Updated DateTime 5 163.83 cm 23.5 kg/m2 33712.3 4 g 95 % 70 /min 18 /min 97.9 [degF] 120/70 mm[Hg] [facility] 14:19:08 Date Recorded Body height Body mass index (BMI) Body weight Oxygen saturation Heart rate Respiratory rate Body temperature Systolic And Diastolic Provider Name and Address Organization Details Last Updated DateTime 5 163.83 cm 25.2 kg/m2 44454.2 6 g 96 % 78 /min 20 /min 98 [degF] 130/80 mm[Hg] NICOLE CRANE [facility] 5 14:41:35 Social History Question Answer Notes LastModified by Organizat ion Details LastModified Time Tobacco Smoking Status Former Smoker Irene Naylor janay [facility] 09/05/2023 15:56:32 Which Illicit Or Recreational Drugs Have You Used? Leilani [email or web address] Information not available 11/02/2024 What Was The Date Of Your Most Recent Tobacco Screening? 11/02/2024 [email or web address] Information not available 11/02/2024 At What Age Did You Start Smoking Tobacco? 49 For 3 Weeks Only Information not available 11/02/2024 Sex: Unknown Functional Status Question Answer Note LastModified by Organizat ion Details LastModified Time Do you use any illicit or recreational drugs? Yes [email or web address] Information not available 11/02/2024 What is your level of alcohol consumption? None [email or web address] Information not available 11/02/2024 Mental Status None recorded. Family History Nothing Reported. Medical History No medical history recorded. Gynecological HistoryNo gynecological history recorded. Obstetrics History GPAL:G 0 P 0 0 0 0 Immunizations Vaccine Type Date Status Note Provider Nam e and Address Organization Details Recorded Time COVID-19, mRNA, LNP-S, PF, errol-sucrose, 30 mcg/0.3 mL 4 completed Gracie gustafson [facility] 11/12/2023 15:11:33 Influenza, split virus, trivalent, PF 4 completed Not Available [facility] 02/13/2025 14:28:04 Pneumococcal conjugate PCV20, polysaccharide ICG034 conjugate, adjuvant, PF 5 completed NICOLE gustafson [facility] 05/24/2024 16:17:51 Past Encounters Encounter ID Performer Location Encounter Start Date Encounter Closed Date Diagnosis/Indication Diagnosis SNOMED-CT Code Diagnosis ICD10 Code Diagnosis IMO Codes Diagnosis Note [id number] DIANA GARCIA PA-C [facility] [address] [place] [address] 03/12/2023 11:51:10 03/15/2023 10:06:45 Pain of right hand 2453769397 47860 M79.641 Ganglion c yst of right wrist 7795737874 98670 M67.431 Acute urin albert tract infection 407556953 N39.0 Cervical spondylosis 387 934627 M47.812 C3/[address] Hung Feb 01 Chronic low back pain 27 5415155 M54.50 Gallstone pancreatitis 54604630 K85.10 Has enlarge CBD on CT 14.5 mm. GB is absent Administra tion of viral vaccine 76077884 Z23 Rheumatoid arthritis [address] Crabtree CCA form filled out during today's office visit [id number] DIANA GARCIA PA-C [facility] ([facility]) [address] [place] [phone] 04/15/2023 14:41:58 04/15/2023 16:52:11 Neuropathy 902921610 G62.9 Candidiasis of mouth 797 66811 B37.0 will tx with oral meds with suspiscion she may have some esophageal candidiasi s. Nausea and vomiting 1692 1999 R11.2 Iron defic iency anemia 77447199 D50.9 Hypothyroidism 98369537 E03.9 Rheumatoid arthritis [address] Crabtree CCA form filled out during today's office visit Low back pain 512905442 M54.50 [id number] DIANA GARCIA PA-C [facility] ([facility]) [address] [place] [phone] 05/19/2023 13:23:55 05/25/2023 12:39:49 History of cervical spine fusion 0326399230 101 Z98.1 2.2.24 Posterior C2-T1 with Dr. Hung (3 neck surgeries in total) Upper gastrointestinal bleeding 71058301 K92.89 scope 03/[address] Ruiz. Deep venou s thrombosis 035672695 I82.409 found 2.2.24 not a candidate for anticoat due to recent GI bleed so IVC placed. Generalize d anxiety disorder 24785516 F41.1 monitor Benzo requests. Has several rxes xanax, valium and clonazepam from [facility] PCP, Dr. Anabell house, and Dr. Gomes saw in SNF. Chronic pain syndrome 37 8438750 G89.4 Oxcontin 7.[address] Lisa. Recently increased to 10mg q 4 hrs from recent surgery. (temporary rx for [employer] given waiting for Oxy to come in then d/margaret 2.8.24 KM) Anemia 898268186 D64.9 cbc, cmp on Wednesday [id number] Srinivasan Gomes DO [facility] ([facility]) [address] [place] [address] 5 05/25/2023 08:03:34 05/31/2023 12:19:42 Hospital inpatient stay within past 30 days 7485625840 106 Z76.89 History of cervical spine fusion 7525270459 101 Z98.1 Hypothyroidism 92792253 E03.9 Chronic pain 47116411 G8 9.29 Depressive disorder 3548 9007 F32.A Gastroesop hageal reflux disease without esophagitis 762054811 K21.9 [id number] Srinivasan Gomes DO [facility] ([facility]) [address] [place] [address] 5 06/01/2023 09:36:24 06/09/2023 06:46:40 Anxiety 28613872 F41.9 Chronic pain 82374650 G8 9.29 History of cervical spine fusion 7024409750 101 Z98.1 [id number] Srinivasan Gomes DO [facility] ([facility]) [address] [place] [address] 5 06/08/2023 08:37:13 06/10/2023 16:36:08 History of cervical spine fusion 5848392802 101 Z98.1 Anxiety 46324151 F41.9 Chronic pain 92508059 G8 9.29 Depressive disorder 3548 9007 F32.A [id number] Srinivasan Gomes DO [facility] ([facility]) [address] [place] [address] 5 06/15/2023 09:21:43 06/28/2023 15:09:18 History of cervical spine fusion 7436942487 101 Z98.1 Low back pain 426937159 M54.50 Depressive disorder 3548 9007 F32.A [id number] Ulysses Rivera MD [facility] ([facility]) [address] [place] [id number] 06/24/2023 12:59:38 06/27/2023 18:03:54 Anxiety 11492241 F41.9 Refill provided for medication . Rib pain 254129589 R07.8 1 Patient has pain along her [...] over the next 4 to 8 weeks. [id number] DIANA GARCIA PA-C [facility] ([facility]) [address] [place] [id number] 07/02/2023 09:48:49 07/02/2023 10:43:55 Spinal stenosis in cervical region 75943659 M48.02 Hospital i npatient stay within past 30 days 2881506387 106 Z76.89 Generalize d anxiety disorder 56899991 F41.1 monitor Benzo requests. Has several rxes xanax, valium and clonazepam from [facility] PCP, Dr. Hung ortho, and Dr. Gomes saw in SNF. Opioid dependence 382629 00 F11.20 post cervical surgery 06/05. Getting in to Dr. Hung. [id number] DIANA GARCIA PA-C [facility] ([facility]) [address] [place] [id number] 08/03/2023 15:31:05 08/07/2023 08:56:13 Peptic ulcer 29327154 K27.9 EGD 11.1.23 neg H.pylori then Deep venou s thrombosis 933122874 I82.409 found 2.2.24 not a candidate for anticoat due to recent GI bleed so IVC placed. Abdominal pain 19587115 R10.9 Anemia 180745843 D64.9 Chronic pain 17023117 G8 9.29 dose drops from 600 to 300 to see if helps with her nausea [id number] DIANA GARCIA PA-C [facility] ([facility]) [address] [place] [id number] 09/02/2023 14:20:34 09/02/2023 17:34:26 Abdominal pain 34868906 R10.9 since pt is in the worst pain of her life I recommend she go to ER to get work up of her abd pain and get pain control for her chronic cervical stenosis with recent surgery that so far has not been helpful. 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 23831542 M48.02 [id number] MALIK BRUSH [facility] ([facility]) [address] [place] [address] 09/05/2023 15:44:16 09/06/2023 13:27:43 Middle ear effusion 8507264936 H74.8X9 Discussed use of antibiotic the full 7 days. May take tylenol/mo rima for discomfort .Return if you develop worsening pain, drainage from the ear or concerns arise. Vertigo 723904477 R42 [id number] DIANA GARCIA PA-C [facility] ([facility]) [address] [place] [id number] 09/20/2023 11:54:13 09/20/2023 16:12:14 [id number] Williams Valerio DO [facility] ([facility]) [address] [place] [phone] 5 09/20/2023 12:40:32 09/20/2023 13:56:13 Anxiety 70561199 F41.9 Acute sero us otitis media of bilateral ears 4651200957 770318 H65.03 [id number] DIANA GARCIA PA-C [facility] ([facility]) [address] [place] [address] 5 09/22/2023 11:55:06 09/23/2023 12:29:54 [id number] Srinivasan Gomes DO [facility]) [address] [place] [address] 10/05/2023 08:21:33 10/06/2023 08:39:15 [id number] DIANA GARCIA PA-C [facility] ([facility]) [address] [place] [id number] 5 10/06/2023 12:17:06 10/20/2023 08:37:19 Pain in right arm 848182330 M79.[address] HENRY, MRI , Anemia 949413848 D64.9 HEMOCCULT x3 due to persistant anemia. GI appt TOMORROW in [facility] Right uppe r quadrant pain 200743055 R10.11 [id number] CLAIRE KILLIAN APRN [facility]) [address] [place] [address] 10/09/2023 14:01:50 10/09/2023 14:43:26 Dysuria 08800911 R30.0 Acute urin albert tract infection 631430430 N39.0 [id number] DIANA GARCIA PA-C [facility] ([facility]) [address] [place] [address] 5 10/13/2023 14:26:50 11/02/2023 17:06:17 Nausea and vomiting 89078127 R11.2 will see what GI finds on scopes Anemia 057335582 D64.9 INJECTIFER 750MG X 2, Acute urin albert tract infection 360479611 N39.0 MACROBID 100MG BID [id number] DIANA GARCIA PA-C [facility] ([facility]) [address] [place] [address] 5 10/20/2023 11:55:15 10/20/2023 14:08:06 Low back pain 539316240 M54.50 d/c to home with current meds and out pt ordersF/U with me in office next week. Constipation 43226003 K5 9.00 Obstructio n of common bile duct 754553099 K83.1 thickening of CMB no CT and U/S. intermitan t emesis with white stools. [id number] DIANA GARCIA PA-C [facility] ([facility]) [address] [place] [phone] 10/26/2023 15:17:52 10/26/2023 17:51:16 Peripheral arterial occlusive disease 903555394 I73.9 Left common femoral artery occluded on CT scan with MADONNA .7 on the LeftHas an IVC filter in place.Toda y no evidence of critical limb ischemia. To ER if increased pain/numbn ess in leg, change in temperatur e or color Deep venou s thrombosis of lower extremity 055291622 I82.409 thrombus in R common femoral vein . IVC filter in place. Pt with recent GI bleed.Not able to anticoagul ate at this time. Iron defic iency anemia 22286484 D50.9 INJECTIFER 750MG X 2 doses 7 days apart.Hgb 8.3 at [facility] 7..24. recent EGD/colono scopy 10.22.23 with lavern Blanchard. Acute gastrointestinal hemorrhage 86236936 K92.2 cauterizat ion in small intestine on last EGD? per waiting on notes. Chronic pain 04578249 G8 9.29 Chronic neck pain 212407 3260 107 M54.2 Hospital i npatient stay within past 30 days 5463426234 106 Z76.89 meds reconciled . non changed today last ER records CT and labs reviewedSp juanita with Faith Morris MA and she is to fax us her records and we are to fax her last CT, U/S liver and labs. [id number] DIANA GARCIA PA-C [facility] ([facility]) [address] [place] [id number] 11/03/2023 14:57:45 11/03/2023 17:25:44 Iron deficiency anemia 87538475 D50.9 INJECTIFER 750MG X 2 doses 7 days apart.Hgb 8.3 at [facility] 7.24. recent EGD/colono scopy 10.22.23 with lavern Blanchard. Dysuria 98392803 R30.0 Tinnitus o f vascular origin 216680116 H93.A9 Deep venou s thrombosis of lower extremity 213360664 I82.409 thrombus in R common femoral vein . IVC filter in place. Pt with recent GI bleed.Not able to anticoagul ate at this time. Peripheral arterial occlusive disease [id number] I73.9 Left common femoral artery occluded on CT scan with MADONNA .7 on the LeftHas an IVC filter in place.Toda y no evidence of critical limb ischemia. To ER if increased pain/numbn ess in leg, change in temperatur e or color [id number] DIANA GARCIA PA-C [facility] ([facility]) [address] [place] [address] [phone] 5 11/09/2023 13:55:02 12/14/2023 07:04:25 Acquired cystic dilatation of common bile duct 019671395 K83.5 Iron defic iency anemia 02832607 D50.9 Set up for injectafer on for first dose.Hgb 8.3 at [facility] 10.24.23. recent EGD/colono scopy 10.22.23 with lavern Blanchard. [id number] DIANA GARCIA PA-C [facility] ([facility]) [address] [place] [address] [phone] 5 11/10/2023 12:49:56 11/10/2023 17:31:37 [id number] DIANA GARCIA PA-C [facility] ([facility]) [address] [place] [address] 01172-044 5 11/25/2023 14:58:08 12/14/2023 07:10:16 Deep venous thrombosis of lower extremity 619331677 I82.409 thrombus in R common femoral vein . IVC filter in place. Pt with recent GI bleed Hgb are rising.I will have her to a hemoccult card. If Hgb going up and hemoccult Neg I think if ok with vascular, it would be time to try anticoagul ation with close monitoring of cbcs Iron defic iency anemia 31350647 D50.9 Set up for injectafer Hgb 8.3 at [facility] 10.24.23. recent EGD/colono scopy 10.22.23 with lavern Blanchard. [id number] DIANA GARCIA PA-C [facility] ([facility]) [address] [place] [address] 10450-703 5 12/14/2023 15:13:11 12/14/2023 17:27:18 Anemia 005674688 D64.9 Had one iron infusion needs to schedule her next one. Deep venou s thrombosis 474728307 I82.409 started Eliquis 11.30.23 Restless l egs syndrome 02985463 G25.81 Hypothyroidism 70153933 E03.9 [id number] DIANA GARCIA PA-C [facility] ([facility]) [address] [place], [place] 62693775-204 5 01/11/2024 11:50:16 01/17/2024 09:34:21 Cervical radiculitis 00297682 M54.12 Pain of ri ght shoulder joint 8604912079 4174487 M25.511 Peripheral vascular disease 864129496 I73.9 Dr. Dawn moreno managing her arterial disease on the L leg, her chronic DVT on the R leg and her richelle filter.05.05 he still wants her on low dose Eliquis Iron defic iency anemia 03784834 D50.9 Her injectafer is helping Last HGb 10.3 at [facility] 01/06/24.re cent EGD/colono scopy 10.22.23 with lavern Blanchard. fixed upper GI bleed. Repeat eGD 2 months later was resolved. Hospital i npatient stay within past 30 days 7009168122 106 Z76.89 meds reconciled . her eliquis was restarted. [id number] Ulysses Rivera MD [facility] ([facility]) [address] [place] [address] 5 01/20/2024 16:13:53 01/20/2024 16:54:14 [id number] DIANA GARCIA PA-C [facility] ([facility]) [address] [place] [address] [phone] 5 02/08/2024 14:21:48 02/08/2024 15:38:37 Hematemesis 9413124 K92.0 Peripheral vascular disease 588215528 I73.9 Dr. Dawn moreno managing her arterial disease on the L leg, her chronic DVT on the R leg and her richelle filter.keron faith stented her L left. check right leg. no clots. left filter in place and wants her on the Eliquis. Pneumonia 506092160 J18. 9 Hospital i npatient stay within past 30 days 8175013027 106 Z76.89 meds reconciled . her eliquis was restarted. Iron defic iency anemia 27244277 D50.9 Her injectafer is helping Last HGb 10.3 at [facility] 01/06/24.re cent EGD/colono scopy 10.22.23 with lavern Blanchard. fixed upper GI bleed. Repeat eGD 2 months later was resolved. [id number] DIANA GARCIA PA-C [facility] ([facility]) [address] [place] [address] [phone] 5 03/14/2024 12:48:46 04/04/2024 12:28:10 Anemia 819363981 D64.9 Had one iron infusion needs to schedule her next one. Acquired d ilation of bile duct 3155578990 290406 K83.8 Peripheral vascular disease 759118455 I73.9 Dr. Dawn moreno managing her arterial disease on the L leg, her chronic DVT on the R leg and her richelle filter.[employer] stented her L left. check right leg. no clots. left filter in place and wants her on the Eliquis. 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 22692466 M48.02 [id number] DIANA GARCIA PA-C [facility] ([facility]) [address] [place] [address] 34429-762 5 04/11/2024 11:03:08 04/13/2024 12:31:09 Stasis dermatitis of lower limb due to chronic peripheral venous hypertension 167190602 I87.399 Drug-induc ed constipation 37816248 K59.03 Edema 469789598 R60.9 Idiopathic peripheral neuropathy 64191459 G60.9 Hypothyroidism 36367497 E03.9 [id number] DIANA GARCIA PA-C [facility] ([facility]) [address] [place] [address] 79509-362 5 04/19/2024 14:34:02 04/24/2024 09:23:08 Obstruction of common bile duct 102125492 K83.1 thickening of CMB no CT and U/S. intermitan t emesis with white stools. Rheumatoid arthritis [address] Crabtree [employer] form filled out during today's office visit Opioid dependence 606461 00 F11.20 post cervical surgery 06/05. Getting in to Dr. Hung. Anemia 873663427 D64.9 Had one iron infusion needs to schedule her next one. Hypothyroidism 10141845 E03.9 Anxiety disorder 8155709 06 F41.9 Chronic pain syndrome 37 8599148 G89.4 Oxcontin 7.[address] Lisa. Recently increased to 10mg q 4 hrs from recent surgery. (temporary rx for [employer] given waiting for Oxy to come in then d/margaret 2.8.24 KM) Peripheral vascular disease 080768041 I73.9 Dr. Dawn moreno managing her arterial disease on the L leg, her chronic DVT on the R leg and her richelle filter.keron faith stented her L left. check right leg. no clots. left filter in place and wants her on the Eliquis. [id number] DIANA GARCIA PA-C [facility] ([facility]) [address] [place] [address] 71773-685 5 05/24/2024 14:51:15 05/24/2024 16:00:13 Chronic neck pain 9629026287 107 M54.2 getting nerve stim with DR. Grider in Jun 06 Atopic dermatitis 447181 01 L20.9 Obstructio n of common bile duct 694262716 K83.[address] CMB no CT and U/S. intermitan t emesis with white stools. Administra tion of pneumococcal vaccine 74475898 Z23 Edema 614098665 R60.9 Restless l egs syndrome 95778946 G25.81 I looked up meds that can cause formicatio n and her requip is listed which she is on very high doses of. She agrees to back down from tid to bid. Chronic insomnia 2268028 04 F51.04 [id number] DIANA GARCIA PA-C [facility] ([facility]) [address] [place] [address] [phone] 5 06/13/2024 12:25:24 06/16/2024 11:56:31 Atopic dermatitis 27901793 L20.9 lower legs. likely from venous stasus Restless l egs syndrome 95639292 G25.81 I looked up meds that can cause formicatio n and her requip is listed which she is on very high doses of. She agrees to back down from 5 mg tid to bid.06/13/24 drop her from 5 mg bid to 3 mg po bid. [id number] DIANA GARCIA PA-C [facility] ([facility]) [address] [place] [address] [phone] 5 07/06/2024 14:47:05 07/10/2024 15:08:00 Peripheral venous insufficiency 18149346 I87.2 Lavern Tate Chronic neck pain 991928 3265 107 M54.2 getting nerve stim with DR. Grider Chest pain 65909570 R07. 9 Hx PAD. will refer to cardiology for consult and testing to see of she has CAD and stable angina [id number] MALIK BRUSH [facility] ([facility]) [address] [place] [address] [phone] 5 07/24/2024 11:36:22 07/24/2024 14:50:48 Wheezing 40179598 R06.2 Discussed use of prescribed medication s. VSS. If you develop new/worsen ing s/s then return for re-evaluat ion. [id number] DIANA GARCIA PA-C [facility] ([facility]) [address] [place] [address] [phone] 5 08/23/2024 14:47:46 08/23/2024 15:42:54 Acute thoracic back pain 124462992 M54.6 09880808 30 min spent with pt Chronic neck pain 907819 8242 107 M54.2 G89.29 810639 getting nerve stim with DR. Madison Grider tomorrow 08/24/24 Gastrointe stinal hemorrhage 01097380 K25.4 [id number] seeing GI next week for scopy and ERCP Dr. Chava puckett. [id number] DIANA GARCIA PA-C [facility] ([facility]) [address] [place] [address] 88120-778 5 11/02/2024 14:26:10 11/02/2024 16:01:55 Cataplexy 21431429 G47.411 60206 ok to continue Effexor. Adverse re action to drug 78109594 T50.905D 87421414 she may be trying to stop her chronic use of baclofen to fast. will taper more slowly with dropping a dose a week.I would like to slowly get her off all her [employer] affecting meds and see if causing her reactions. Will slowly taper her off her gabapentin as wellI suspect pt has histrionic personalit y disorder. REviewed her hospital records and they did a very good job of ruling out any physcial cause of her jerking.It would be ideal to get psych involved to help sort out her symptoms. Post-disch arge follow-up 592288810 Z09 057715 Anemia due to blood loss 714247094 D50.0 779412 recent capsule endoscopy. Dr. Larsen is working up [id number] DIANA GARCIA PA-C [facility] ([facility]) [address] [place] [address] [phone] 5 12/01/2024 08:51:12 12/01/2024 09:46:50 Gastroesophageal reflux disease 963329109 K21.9 74311124 Primary insomnia 0729792 F51.01 36662 Peptic ulcer 81771202 K2 7.9 Chronic pain 05260270 G8 9.29 Lymphedema 067721880 I89 .0 43953 Chronic neck pain 533711 8040 107 M54.2 G89.29 7281858 getting nerve stim with DR. Madison Grider tomorrow 08/24/24 Vascular insufficiency 02798971 I87.[id number] Tate manages looking to do some venous repair.Enc ouraged compressio n stockings and elevation until she can get some wraps. [id number] DIANA GARCIA PA-C [facility] ([facility]) [address] [place] [address] [phone] 5 01/11/2025 14:06:00 01/12/2025 08:44:46 Multi vessel coronary artery disease 533887795 I25.10 2549171 recent stents x 2 back to back. 01/04 need one year of dual plt asa and plavix therapy for 1 yr. Post-disch arge follow-up 741035487 Z09 998988 Exposure t o SARS-CoV-2 794049544 Z20.822 0144441651 pt left without being tested. Upper gastrointestinal bleeding 87052155 K92.2 831572 scope 03/[address] Ruiz. Scope 01/05/25 at [facility] small area of bleeding. needs plavix and ASA due to stent on 12/27/24 [id number] DIANA GARCIA PA-C [facility] ([facility]) [address] [place] [address] 5 02/13/2025 14:26:45 02/13/2025 15:27:07 Edema 401822296 R60.9 Upper gastrointestinal bleeding 46180819 K92.2 653053 scope 03/[address] Ruiz. Scope 01/05/25 at [facility] small area of bleeding. needs plavix and ASA due to stent on 12/27/24 Stented co ronary artery 545149187 I25.10 Z95.5 23726706 Health Concerns Section Related Observation LastModified by Organization Detai ls LastModified Time None Recorded Concern Status LastModified by Organization Details LastModified Time None Recorded Advance Directives Directive None Recorded Payers Insurance Date Sequence Insurance Name Policy Number Policy Rivera Covered Member ID Rivera Member ID Guarantor Name 03/12/2025 [place] - [facility] (MEDICARE) Carmena S Ranew [id number] Darinda Ranew 03/12/2025 2 [facility] (MEDICARE SUPPLEMENT) Darinda Ranew [id number] Darinda Ranew 03/12/2025 1 [place] Carmena S Ranew [id number] Darinda Ranew Notes Date Note Type [...] reportswalking,sweeping,mop ping,bathing,dressing, andclimbing stairs. HOSPITAL FOLLOW UP [facility] TOY, HAS AN APPT FOR COLONOSCOPY ON 09-01-24 IN [place], WORE BRACE FROM DR HENRY AND FELT SOMETHIING POP IN NECK NOW NECK HURTS.JUST FINISHED ANTIBIOTICS FROM THEM DOXY? seeing vascular 08/30seeing GI to check on clip in [place] 09/01 and be scoped again. lavern GARCIA PA-C [address] [place], [address], [facility], L.LHarjeetCHarjeet 08/23/2024 15:38:13 5 text/html ER buxton f/u for jerking and passing outshe started the jerking after starting venlafaxine. she had been in [facility] for 13 days just prior to [...] saw a espophagous Pt DIANA GARCIA PA-C [address] [place], [address], [facility], Do. 11/07/2024 21:53:33 5 text/html EdemaReported by PatientHPIFor [...] leg 01/2024 Dr. Rola Puckett. 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 Pelayo GI appt . for GI bleed f/u [facility] hospital stay: Needed a blood transfusion her in [place] before she went to [place]. Also had UTI and pneumonia at [facility] Was in hospital in [place] and had an upper GI bleed. Got a scope Hgb was 11. Has not been taking her EffexorBack down on her baclofen to BID and says she just taking her OXy BID as well and gabapentin BID. Much less shakingSays her shaking went almost all the way away after getting her blood transfusion DIANA GARCIA PA-C [address] [place], [address], [facility], [facility]. 12/01/2024 09:40:36 5 [...] they saw no pneumonia DIANA GARCIA PA-C [address] [place], [address], [facility] 01/11/2025 18:13:05 5 text/html EdemaReported by [...] her GI doc. 10.28 DIANA GARCIA PA-C [address] [place], [address], [facility] 02/13/2025 15:25:18 OBGyn Episode No OBEpisode recorded.
--- OUTSIDE RECORDS SUMMARY | 2025-03-15 05:38 | XMS_ITS | Continuity of Care Document ---
Author Organization [facility], Job, [facility] ([facility]) Address [address] [place] [address] Care Team Providers Care Catcher Filter Tip Name Role Phone KIERAN VO Primary Care Provider Unavailabl e Assessment No assessment recorded. Plan of Treatment Reminders Order Date Submit Date Provider Last Modified By Organization Details Last Modified Time Details Appointments OFFICE VISIT 20 2024 01:20P Anny VO PA-C Not available Not available Not available Lab CBC [address] [facility], [address] [facility] [address], [address], [place], [address], 03/06/2025 08:07:27 BMP, serum or plasma [address] [facility], [address], [facility], [place], [address], 03/06/2025 08:07:27 Referral None recorded. Procedures None recorded. Surgeries None recorded. Imaging None recorded. Medication Orders atorvasta tin 40 mg tablet 2024 025 [facility]/Pharmacy #[id number], [address], [address], [place], [address], 02/13/2025 15:20:22 ranolazin e ER 500 mg tablet,ex tended release,1 2 hr 2024 025 [facility]/Pharmacy #[id number], [address], [address], [place], [address], 02/13/2025 15:20:22 furosemid e 40 mg tablet 2024 025 [id number], [address] [address], [address], [place], [address], 02/13/2025 15:16:44 potassium chloride 40 mEq/15 mL oral liquid 2024 025 [id number], [address], [address], [place], [address], 02/13/2025 15:16:44 Patient TargetsNo targets recorded. Patient InstructionsNo instructions recorded. Reason for Referral None Reported. Problems Name Problem SNOMED Code Status Onset Date Resolution Date Notes Provider Name and Address Organization Details Recorded Time Hand pain 80059391 Completed 202205/14/2024 NICOLE gustafson [facility], L.LHarjeetCHarjeet 5 07:55:21 Hand pain 18475075 Completed 202205/14/2024 NICOLE gustafson [facility], L.LHarjeetCHarjeet 5 07:55:15 Low back pain 238523541 Completed 202305/14/2024 NICOLE gustafson [facility], L.LHarjeetCHarjeet 5 18:20:21 Deep venous thrombosi s of lower extremity 816994877 Completed 202305/14/[address] [facility] non occlusi ve. IVC placed due to no able to take blood thinner sHarjeet gustafson [facility], RodgerLHarjeetCHarjeet 5 07:54:08 Chronic pain 27817780 Active 2023 NICOLE gustafson [facility], LHarjeetL.C. 5 07:54:43 Hospital inpatient stay within past 30 days 38308859452 06 Completed 202305/14/2024 NICOLE CRANE null, [facility] 5 07:55:38 History of cervical spine fusion 70711116650 Completed 202305/14/2024 NICOLE CRANE null, [facility] 5 07:55:29 Hypothyro idism 44746826 Active 2023 NICOLE ROSA MARIA null, [facility] 5 07:55:43 Depressiv e disorder 23543752 Active 2023 NICOLE CRANE null, [facility] 5 07:54:53 Gastroeso phageal reflux disease without esophagit is 051827265 Active 2023 NICOLE ROSA MARIA null, [facility] 5 07:55:09 Anxiety 36247784 Active 2023 NICOLE ROSA MARIA null, [facility] 5 07:54:40 Rib pain 979457037 Completed 202305/14/2024 NICOLE ROSA MARIA null, [facility] 5 07:57:21 Nausea 766103754 Completed 202305/14/2024 NICOLE ROSA MARIA null, [facility] 5 07:55:56 Peptic ulcer 70287471 Completed 202305/14/2024 NICOLE CRANE null, [facility] 5 07:57:13 Pain in bilateral legs 02009868279 697377 Completed 202305/14/2024 NICOLE HAEFFNER null, [facility] 5 07:56:52 Pain in left lower limb 909826067 Completed 202305/14/2024 NICOLE HAEFFNER null, [facility] 5 07:57:01 Acquired dilation of bile duct 91769624490 05896 Completed 202305/14/2024 NICOLE HAEFFNER null, [facility] 5 07:54:30 Deep venous thrombosi s 303212131 Completed 202305/14/2024 NICOLE HAEFFNER null, [facility] 5 07:54:50 Anemia 526797634 Active 2023 NICOLE HAEFFNER null, [facility] 5 07:54:37 Pain in right arm 779417738 Completed 202305/14/2024 NICOLE HAEFFNER null, [facility] 5 07:57:07 Right upper quadrant pain 880536070 Completed 202305/14/2024 NICOLE HAEFFNER null, [facility] 5 07:57:36 Nausea and vomiting 95601253 Completed 202305/14/2024 NICOLE HAEFFNER null, [facility] 5 07:56:02 Edema 008538813 Completed 202305/14/2024 NICOLE HAEFFNER null, [facility] 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 Procedures Surgical History Date Name Laterality Status Provider Name and Address Organization Details Recorded Time 2024 fluoroscopic angiography of coronary artery with contrast and insertion of stent completed NICOLE CRANE [facility], LHarjeetL.CHarjeet 5 18:02:58 2024 plain X-ray of chest completed PAULETTE JASON [facility], LHarjeetLHarjeetCHarjeet 5 00:10:[address] of abdomen and pelvis completed PAULETTE JASON [facility], RodgerLIgnacio 5 00:12:33 2023 insertion of arterial stent completed JER VO PA-C [address] [place] [address], [phone] , [facility], Job 4 15:12:39 2023 colonoscopy completed KIERAN VO PA-C [address] [place], [address], [facility] 4 17:29:05 2023 esophagogastroduodenoscopy completed KIERAN VO PA-C [address] [place], [address], [facility] 4 17:08:01 2023 ultrasonography of liver completed NICOLE CRANE [facility], LHarjeetL.C. 4 16:43:05 2023 primary posterior decompression cervical cord and fusion completed KIERAN VO PA-C [address] [place], [address], [facility] 4 13:58:12 2023 insertion of inferior vena caval filter completed KIERAN VO PA-C [address] [place], [address], [facility] 4 13:58:28 2022 primary fusion of cervical spine completed KIERAN VO PA-C [address] [place], [address], [facility] 3 12:50:26 Imaging Results None recorded. Procedure Notes None recorded. Medical Equipment None Reported. Allergies Allergen ID Allergen Name Allergen Category Reaction Reaction Severity Criticality Documentation Date Start Date Code Code System Note Provider Name and Address Organization Details Recorded Time 55900 Benadryl medicatio n Not available Not available Not available 03/12/202333201 [address] [facility], LHarjeetL.C. 3 12:01:01 45255 amitripty line medicatio n Not available Not available Not available 03/12/2023 704 RxNorm NICOLE ROSA MARIA null, [facility] 3 12:01:37 25962 tizanidin e medicatio n Not available Not available Not available 03/12/2023 53619 RxNorm NICOLE ROSA MARIA null, [facility] 3 12:08:21 49405 morphine medicatio n confusion Not available [facility] 09/02/2023 7052 RxNorm KIERAN VO PA-C [address] [place] [address], [address] , [facility] 4 15:15:03 38087 venlafaxi ne medicatio n itching Not available Not available 02/13/2025 71175 RxNorm NICOLE CRANE null, [facility] 5 14:50:24 85860 ibuprofen medicatio n Not available Not available [facility] 02/23/2025 5640 RxNorm Not Available wanda - External Data Service - prod 5 09:45:37 34268 acetamino phen medicatio n Not available Not available [facility] 02/23/2025 161 RxNorm Not Available wanda - External Data Service - prod 5 09:45:37 81831 prochlorp erazine medicatio n Not available [facility] 02/23/2025 8704 RxNorm Not Available wanda - External Data Service - prod 5 09:45:37 64032 diphenhyd ramine medicatio n Not available [facility] 02/23/2025 3498 RxNorm unrec ogniz ed react ion (text : Hyper activ e behav ior (find ing), code: 67551 000) (from [facility] e) Not Available wanda - External Data Service - prod 5 09:45:37 10533 leflunomi de medicatio n Not available Not available [facility] 02/23/20252024 77051 RxNorm Not Available wanda - External Data Service - [facility] 5 09:45:40 73629 sulfasala zine medicatio n Not available Not available [facility] 02/23/20252024 9524 RxNorm Not Available wanda - External Data Service - [facility] 5 09:45:40 79185 metoclopr amide Not available Not available Not available Not available 03/12/2025 6915 RxNorm Not Available [facility] External Data Service - [facility] 5 15:33:31 Medications Name Sig Start Date [...] Last Updated DateTime 163.83 cm 25.2 kg/m2 58197.2 6 g 96 % 78 /min 20 /min 98 [degF] 130/80 mm[Hg] NICOLE CRANE [facility], [facility]. 14:41:35 Social History Question Answer Notes LastModified by Organizat ion Details LastModified Time Tobacco Smoking Status Former Smoker Irene Naylor janay, [facility] 09/05/2023 15:56:32 Which Illicit Or Recreational Drugs Have You Used? Leilani Information not available 11/02/2024 What Was The Date Of Your Most Recent Tobacco Screening? 11/02/2024 [email or web address] Information not available 11/02/2024 At What Age Did You Start Smoking Tobacco? 49 For 3 Weeks Only [email or web address] Information not available 11/02/2024 Sex: Unknown Functional Status Question Answer Note LastModified by Organizat ion Details LastModified Time Do you use any illicit or recreational drugs? Yes [email or web address] Information not available 11/02/2024 What is your level of alcohol consumption? None [email or web address] Information not available 11/02/2024 Mental Status None recorded. Family History Nothing Reported. Medical History No medical history recorded. Gynecological HistoryNo gynecological history recorded. Obstetrics History GPAL:G 0 P 0 0 0 0 Immunizations Vaccine Type Date Status Note Provider Nam e and Address Organization Details Recorded Time COVID-19, mRNA, LNP-S, PF, errol-sucrose, 30 mcg/0.3 mL 4 completed Gracie gustafson [facility] 11/12/2023 15:11:33 Influenza, split virus, trivalent, PF 4 completed [facility] Available [facility] 02/13/2025 14:28:04 Pneumococcal conjugate PCV20, polysaccharide [id number] conjugate, adjuvant, PF 5 completed NICOLE gustafson [facility] 05/24/2024 16:17:51 Past Encounters Encounter ID Performer Location Encounter Start Date Encounter Closed Date Diagnosis/Indication Diagnosis SNOMED-CT Code Diagnosis ICD10 Code Diagnosis IMO Codes Diagnosis Note [id number] KIERAN VO PA-C [facility] ([facility]) [address] [place] [address] 02/13/2025 14:26:45 02/13/2025 15:27:07 Edema 326170918 R60.9 Upper gastrointestinal bleeding 36303195 K92.2 321525 scope 03/[address] Ruiz. Scope 01/05/[address] [facility] small area of bleeding. needs plavix and ASA due to stent on 12/27/24 Stented co ronary artery 327223568 I25.10 Z95.5 25114961 Health Concerns Section Related Observation LastModified by Organization Detai ls LastModified Time None Recorded Concern Status LastModified by Organization Details LastModified Time None Recorded Payers Encounter Date Sequence Insurance Name Policy Number Policy Rivera Covered Member ID Rivera Member ID Guarantor Name 02/13/2025 1 [place] Tosha S Ranew [id number] Tosha Rancray 02/13/2025 2 [employer] (MEDICARE SUPPLEMENT) Tosha Rancary [id number] Tosha Orlando Notes Date Note Type Note Provider Name [...] her GI doc. 10.28 KIERAN VO PA-C [address] [place], [address], [facility], Job 02/13/2025 15:25:18 OBGyn Episode No OBEpisode recorded.
--- OUTSIDE RECORDS SUMMARY | 2025-03-15 05:38 | XMS_ITS | Clinical Summary ---
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
--- OUTSIDE RECORDS SUMMARY | 2025-03-15 05:38 | XMS_ITS | Patient Health Record ---
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) Active confirmed Problem Wrist joint effusion (065074369) Effusion, right wrist (M25.431) Active confirmed Problem 721478514 Dyslipidemia (E78.5) Active confirmed Problem 51418651 Seizures (R56.9) Active confirmed Problem 59978476 Heart murmur (R01.1) Active confirmed Problem 006018881 Diabetes mellitu s type 2 in nonobese (E11.9) Active confirmed Problem 779479430 GERD without esophagitis (K21.9) Active confirmed Problem 948128082 Hypothyroidism (acquired) (E03.9) Active confirmed Problem 7891107565683 Coronary artery disease involving [place] coronary artery of [place] heart with angina pectoris (I25.119) Active confirmed Problem 50197002 Depression, unspecified depression type (F32.9) Active confirmed Problem 614522547 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) Active confirmed Problem 138060010 Cataract of left eye, unspecified cataract type (H26.9) Active confirmed Plan Of Treatment Pending Test Test Name Order Date Hemoglobin A1c (L-595854) 11/12/2016 MRI- BRAIN WO CONTRAST (25031)(HEAFH-BRA O) 01/22/2017 XRAY- ABDOMEN-KUB 1V (41902)(HEH-ABDK1 ) 01/21/2017 Insurance Providers Payer Name Payer Address Payer Phone Subscriber Number Group Number Insured Name Patient Relationship to Insured Coverage Start Date Coverage End Date MEDICARE [place] PART B [address] [facility] SHIV [place] [id number] Tosha Perry Self - patient is the insured 1 9 [facility] SUPPLEMENT [address] [facility], [place] [id number] Tosha Perry Self - patient is the [...]
--- OUTSIDE RECORDS SUMMARY | 2025-03-15 05:38 | XMS_ITS | Patient Health Record ---
Author Organization [facility] Address [address] [place] [address] Care Team Providers Care Trencher Driver Name Role Phone Diana Galvan Primary Care Provider UnavailDeedee Vickers Unavailable [phone] Rajesh Serna Unavailable [phone] Paxton Nobles Unavailable [phone] Mode Cabello Unavailable [phone] Desiree Cox Unavailable Allergies Allergen (clinical drug ingredient) Drug/Non Drug Allergy documented on EMR Reaction Allergy Type Onset Date Status diphenhydramine Benadryl Unknown Drug Allergy A ctive sumatriptan Imitrex Unknown Drug Allergy Activ e Results Component Value Reference Range Flag Notes Urine Drug Screen (cup read) - 44025 Reviewed date:11/27/2024 02:11:57 PM Interpretation: Performing Lab: Notes/Report: OXY + Urine Confirmation Panel (in strument) - [id number] Reviewed date:12/05/2024 02:47:57 PM Interpretation: Performing Lab: [...] the U.S. Food and Drug Administration. Gabapentin >79481 <225 ng/mL > This test was developed [...] Administration. Urine Drug Screen (cup read) - 60638 Reviewed date:03/30/2024 03:52:14 PM Interpretation: Performing Lab: Notes/Report: OXY + zzzUrine Drug Screen (confir mation by instrument) - 55187 Reviewed date:04/06/2024 12:03:00 PM Interpretation: Performing Lab: Notes/Report: Schedule Confirmation Reviewed date:02/27/2025 02:32:50 PM Interpretation: Performing Lab: Notes/Report: Tox Results Reviewed date:06/28/2024 02:49:57 PM Interpretation: Performing Lab: Notes/Report: IPMA Saliva Drug Screen Reviewed date:09/01/2024 10:27:02 AM Interpretation: Performing Lab: Notes/Report: zzzCT Outside CD Reviewed date:02/27/2025 02:32:50 PM Interpretation: Performing Lab: Notes/Report: [id number] Urine Confirmation Panel (in strument) - [id number] Reviewed date:06/28/2024 02:49:57 PM Interpretation: Performing Lab: [...] the U.S. Food and Drug Administration. Gabapentin >51019 <225 ng/mL > This test was developed [...] Administration. Urine Drug Screen (cup read) - 07503 Reviewed date:06/22/2024 01:19:32 PM Interpretation:Positive Performing Lab: Notes/Report: Positive OXY + Tox Results Reviewed date:12/05/2024 02:35:33 PM Interpretation: Performing Lab: Notes/Report: Schedule Confirmation Reviewed date:02/27/2025 02:32:50 PM Interpretation: Performing Lab: Notes/Report: Urine Drug Screen (cup read) - 20539 Reviewed date:10/05/2024 10:34:03 AM Interpretation: Performing Lab: Notes/Report: BZO + OPI + Reason For Referral Reason EMG/NCV Bilateral Up per Extremities Diagnosis 1 Pain in right upper arm (M79.621) Diagnosis 2 Pain in left upper a rm (M79.622) Diagnosis 3 Cervical radiculopat hy (M54.12) Diagnosis 4 Degenerative disc di sease, cervical (M50.30) Diagnosis 5 Cervical paraspinal muscle spasm (M62.838) Referral Organization [facility] [place] Referring Provider First Name Rajesh Referring Provider Last Name Kareem Referring Provider Speciality Neurosurge tahmina Referred Provider [facility], Physi ro[facility] ([facility]) Referred Provider Specialty Physical The rapist Referral Priority Routine Reason Evaluation of a cerv ical spinal cord stimulator Diagnosis 1 Cervical paraspinal muscle spasm (M62.838) Diagnosis 2 Chronic pain syndrom e (G89.4) Diagnosis 3 Arthrodesis status ( Z98.1) Referring Provider First Name Rajesh Referring Provider Last Name Kareem Referring Provider Speciality Neurosurge tahmina Referred Organization [facility] Referred Provider Mode Cabello Referred Address [address] [place] [id number], General Notes Alissa Myrick 0 05/19/2024 03:03:09 PM >ATC to schedule. Referral Priority Routine Reason Evaluation of a cerv ical spinal cord stimulator Diagnosis 1 Chronic pain syndrom e (G89.4) Diagnosis 2 Cervical paraspinal muscle spasm (M62.838) Diagnosis 3 Arthrodesis status ( Z98.1) Referral Organization [facility] [place] Referring Provider First Name Rajesh Referring Provider [...] Status Risk Notes Problem Chronic pain syndrome (006183463) Chronic pain syndrome (G89.4) 09/15/19 Active confirmed Problem Cervical spondylosis without myelopathy (206995079) Other spondylosis with radiculopathy, cervical region (M47.22) 09/15/19 Active confirmed Problem Degeneration of cervical intervertebral disc (16109836) Other cervical disc degeneration, unspecified cervical region (M50.30) 09/15/19 Active confirmed Problem Post-laminectomy syndrome (81832047) Postlaminectomy syndrome, not elsewhere classified (M96.1) 09/15/19 Active confirmed Problem Abnormal gait (13800232) Unspecified abnormalities of gait and mobility (R26.9) 09/15/19 24 Active confirmed Problem High risk drug monitoring status (280238848) intermediate frame tender (current) use of opiate analgesic (Z79.891) 09/15/19 Active confirmed Problem Cervical radiculopathy (28710909) Cervical radiculopathy (M54.12) Active confirmed Problem Degeneration of cervical intervertebral disc (52512096) Degenerative disc disease, cervical (M50.30) Active confirmed Problem 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) (747694594) Facet arthropathy, 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) Active confirmed Problem Neck pain (12242329) Cervical pain (neck) (M54.2) Active confirmed Problem Peripheral vascular disease (020160947) Peripheral vascular disease (I73.9) Active confirmed Vital Signs Heart Rate 68 /min 05/04/2024 Temperature 98.2 degrees Fahrenheit 05/04/2024 Respiratory Rate 20 /min 05/04/2024 Oximetry 96 % 05/04/2024 Blood pressure diastolic 64 mm Hg 05/04/2024 Height-cm 165.1 cm 02/16/2025 Weight-kg 67.59 kg 02/16/2025 Height 65 in 02/16/2025 Blood pressure systolic 122 mm Hg 05/04/2024 Weight 149 lbs 02/16/2025 BMI 24.79 kg/m2 02/16/2025 Encounters Encounter Location Date Provider Diagnosis [facility] [address] [address] 02/16/2025 Deedee Villarreal Chronic pain syndrom e G89.4 ; Other spondylosis with radiculopathy, cervical region M47.22 ; Myalgia of auxiliary muscles, head and neck M79.12 ; Postlaminectomy syndrome, not elsewhere classified M96.1 ; Other cervical disc degeneration, unspecified cervical region M50.30 ; halfway (current) use of opiate analgesic Z79.891 and Unspecified abnormalities of gait and mobility R26.9 [facility] [address] [address] 11/27/2024 Deedee Villarreal Chronic pain syndrom e G89.4 ; Other spondylosis with radiculopathy, cervical region M47.22 ; Myalgia of auxiliary muscles, head and neck M79.12 ; Unspecified abnormalities of gait and mobility R26.9 ; Postlaminectomy syndrome, not elsewhere classified M96.1 ; Other cervical disc degeneration, unspecified cervical region M50.30 and halfway (current) use of opiate analgesic Z79.891 [facility] [address] [address] 10/05/2024 Deedee Villarreal Chronic pain syndrom e G89.4 ; Other spondylosis with radiculopathy, cervical region M47.22 ; Myalgia of auxiliary muscles, head and neck M79.12 ; Unspecified abnormalities of gait and mobility R26.9 ; Postlaminectomy syndrome, not elsewhere classified M96.1 ; Other cervical disc degeneration, unspecified cervical region M50.30 and intermediate frame tender (current) use of opiate analgesic Z79.891 [facility] [address] [address] 08/24/2024 Deedee Villarreal Chronic pain syndrom e G89.4 ; Other spondylosis with radiculopathy, cervical region M47.22 ; Myalgia of auxiliary muscles, head and neck M79.12 ; Unspecified abnormalities of gait and mobility R26.9 ; Postlaminectomy syndrome, not elsewhere classified M96.1 ; Other cervical disc degeneration, unspecified cervical region M50.30 and intermediate frame tender (current) use of opiate analgesic Z79.891 [facility] [address] [address] 06/22/2024 Deedee Villarreal Chronic pain syndrom e G89.4 ; Other cervical disc degeneration, unspecified cervical region M50.30 ; Other spondylosis with radiculopathy, cervical region M47.22 ; Myalgia of auxiliary muscles, head and neck M79.12 ; Postlaminectomy syndrome, not elsewhere classified M96.1 ; Unspecified abnormalities of gait and mobility R26.9 and intermediate frame tender (current) use of opiate analgesic Z79.891 [facility] [address] [address] 05/24/2024 Mode Cabello Chronic pain syndrom e G89.4 ; Other cervical disc degeneration, unspecified cervical region M50.30 ; Other spondylosis with radiculopathy, cervical region M47.22 ; Myalgia of auxiliary muscles, head and neck M79.12 ; Postlaminectomy syndrome, not elsewhere classified M96.1 ; Unspecified abnormalities of gait and mobility R26.9 and intermediate frame tender (current) use of opiate analgesic Z79.891 [facility] [place] [address] [place] [address] 05/04/2024 Rajesh Senra Cervical paraspinal muscle spasm M62.838 ; Chronic pain syndrome G89.4 ; Degenerative disc disease, cervical M50.30 ; Cervical radiculopathy M54.12 and Arthrodesis status Z98.1 [facility] [address] [address] 04/26/2024 Mode Cabello Chronic pain syndrom e G89.4 ; Other spondylosis with radiculopathy, cervical region M47.22 ; Other cervical disc degeneration, unspecified cervical region M50.30 ; Myalgia of auxiliary muscles, head and neck M79.12 ; Postlaminectomy syndrome, not elsewhere classified M96.1 ; Unspecified abnormalities of gait and mobility R26.9 and intermediate frame tender (current) use of opiate analgesic Z79.891 [facility] [place] [address] [place] [place] [address] 03/30/2024 Deedee Villarreal Chronic pain syndrom e G89.4 ; Other cervical disc degeneration, unspecified cervical region M50.30 ; Other spondylosis with radiculopathy, cervical region M47.22 ; Postlaminectomy syndrome, not elsewhere classified M96.1 ; Myalgia of auxiliary muscles, head and neck M79.12 ; Unspecified abnormalities of gait and mobility R26.9 and intermediate frame tender (current) use of opiate analgesic Z79.891 [facility] [place] [address] [address] 04/10/2024 Rajesh Serna Cervical paraspinal muscle spasm M62.838 ; Degenerative disc disease, cervical M50.30 ; Cervical radiculopathy M54.12 ; Pain in left upper arm M79.622 and Pain in right upper arm M79.621 [facility] [address] [facility] [place] [address] 03/30/2024 Mode Cabello [facility] [place] [address] [address] 03/30/2024 Rajesh Serna [facility] [address] [facility] [place] [address] 05/30/2024 Deedee Villarreal [facility] [place] [address] [place] [place] [address] 04/14/2024 Mode Cabello [facility] [place] [address] [place] [place] [address] 02/16/2025 Mode Cabello Other spondylosis wi th radiculopathy, cervical region M47.22 [facility] [place] [address] [place] [place] [address] 02/02/2025 Desiree Lyuksyutova-Margi ce Other spondylosis with radiculopathy, cervical region M47.22 [facility] [place] [address] [place] [place] [address] 01/01/2025 Mode Cabello Other spondylosis wi th radiculopathy, cervical region M47.22 [facility] [place] [address] [place] [place] [address] 11/27/2024 Desiree Lyuksyutova-Margi ce Other spondylosis with radiculopathy, cervical region M47.22 [facility] [place] [address] [place] [place] [address] 10/05/2024 Desiree Lyuksyutova-Margi ce Other spondylosis with radiculopathy, cervical region M47.22 [facility] [place] [address] [place] [place] [address] 08/24/2024 Mode Cabello Other spondylosis wi th radiculopathy, cervical region M47.22 [facility] [address] [address] 08/17/2024 Mode Cabello [facility] [place] [address] [place] [address] 07/10/2024 Deedee Villarreal [facility] [place] [address] [place] [address] 06/22/2024 Mode Cabello Chronic pain syndrom e G89.4 and Other spondylosis with radiculopathy, cervical region M47.22 [facility] [place] [address] [place] [address] 06/05/2024 Mode Cabello Other spondylosis wi th radiculopathy, cervical region M47.22 [facility] [place] [address] [place] [address] 05/17/2024 Mode Cabello Assessments Encounter Date Diagnosis (ICD Code) Assessment Notes Treatment Notes Treatment Clinical Notes Section Notes 04/10/2024 Cervical paraspinal muscle spasm (ICD-10 - M62.838) 02/16/2025 Other spondylosis with radiculopathy, cervical region [...] effects are noted. Last UDS and AR CARD CUTTER HELPER reviewed today. Patient is advised that [...] how bad her anxiety has been lately. 05/04/2024 Chronic pain syndrome (ICD-10 - G89.4) 05/04/2024 Cervical paraspinal muscle spasm (ICD-10 - M62.838) 08/24/2024 Other spondylosis with radiculopathy, cervical region (ICD-10 - M47.22) 02/16/2025 Chronic pain syndrome (ICD-10 - G89.4) [...] effects are noted. Last UDS and AR CARD CUTTER HELPER reviewed today. Patient is advised that [...] as for biannual appointment with Dr. Cabello. 06/22/2024 Chronic pain syndrome (ICD-10 - G89.4) [...] the cervical trial. This will be a [employer] device as we will try the closed-loop [...] effects are noted. Last UDS and AR CARD CUTTER HELPER reviewed today. Patient is advised that [...] continue to stress nonopioid treatment. 05/24/2024 Other spondylosis with radiculopathy, cervical region (ICD-10 - M47.22) 06/22/2024 Other cervical disc degeneration, unspecified cervical region (ICD-10 - M50.30) 06/22/2024 Other spondylosis with radiculopathy, cervical region (ICD-10 - M47.22) 10/05/2024 Other spondylosis with radiculopathy, cervical region (ICD-10 - M47.22) 02/16/2025 Myalgia of auxiliary muscles, head and neck (ICD-10 - M79.12) 05/04/2024 Degenerative disc disease, cervical (ICD-10 - M50.30) 03/30/2024 Other spondylosis with radiculopathy, cervical region (ICD-10 - M47.22) 11/27/2024 Other spondylosis with radiculopathy, cervical region (ICD-10 - M47.22) 04/26/2024 Other cervical disc degeneration, unspecified cervical region (ICD-10 - M50.30) 08/24/2024 Myalgia of auxiliary muscles, head and neck (ICD-10 - M79.12) 04/10/2024 Cervical radiculopathy (ICD-10 - M54.12) 04/10/2024 Pain in left upper arm (ICD-10 - M79.622) 08/24/2024 Unspecified abnormalities of gait and mobility (ICD-10 - R26.9) 04/26/2024 Myalgia of auxiliary muscles, head and neck (ICD-10 - M79.12) 11/27/2024 Myalgia of auxiliary muscles, head and neck (ICD-10 - M79.12) 05/04/2024 Cervical radiculopathy (ICD-10 - M54.12) 03/30/2024 Postlaminectomy syndrome, not elsewhere classified (ICD-10 - M96.1) 02/16/2025 Postlaminectomy syndrome, not elsewhere classified (ICD-10 - M96.1) 10/05/2024 Myalgia of auxiliary muscles, head and neck (ICD-10 - M79.12) 06/22/2024 Other spondylosis with radiculopathy, cervical region (ICD-10 - M47.22) 05/24/2024 Myalgia of auxiliary muscles, head and neck (ICD-10 - M79.12) 04/10/2024 Pain in right upper arm (ICD-10 - M79.621) 05/24/2024 Postlaminectomy syndrome, not elsewhere classified (ICD-10 [...] gait and mobility (ICD-10 - R26.9) 02/16/2025 Other cervical disc degeneration, unspecified cervical region (ICD-10 - M50.30) 05/04/2024 Arthrodesis status (ICD-10 - Z98.1) 03/30/2024 Myalgia of auxiliary muscles, head and neck (ICD-10 - M79.12) 11/27/2024 Unspecified abnormalities of gait and mobility (ICD-10 - R26.9) 08/24/2024 Postlaminectomy syndrome, not elsewhere classified (ICD-10 - M96.1) 04/26/2024 Postlaminectomy syndrome, not elsewhere classified (ICD-10 - M96.1) 06/22/2024 Myalgia of auxiliary muscles, head and neck (ICD-10 - M79.12) 08/24/2024 Other cervical disc degeneration, unspecified cervical region (ICD-10 - M50.30) 04/26/2024 Unspecified abnormalities of gait and mobility (ICD-10 - R26.9) 11/27/2024 Postlaminectomy syndrome, not elsewhere classified (ICD-10 - M96.1) 03/30/2024 Unspecified abnormalities of gait and mobility (ICD-10 - R26.9) 02/16/2025 intermediate frame tender (current) use of opiate analgesic (ICD-10 - Z79.891) 10/05/2024 Postlaminectomy syndrome, not elsewhere classified (ICD-10 - M96.1) 06/22/2024 Postlaminectomy syndrome, not elsewhere classified (ICD-10 - M96.1) 05/24/2024 Unspecified abnormalities of gait and mobility (ICD-10 - R26.9) 05/24/2024 intermediate frame tender (current) use of opiate analgesic (ICD-10 - Z79.891) 06/22/2024 Unspecified abnormalities of gait and mobility (ICD-10 - R26.9) 10/05/2024 Other cervical disc degeneration, unspecified cervical region (ICD-10 - M50.30) 02/16/2025 Unspecified abnormalities of gait and mobility (ICD-10 - R26.9) 03/30/2024 halfway (current) use of opiate analgesic (ICD-10 - Z79.891) 11/27/2024 Other cervical disc degeneration, unspecified cervical region (ICD-10 - M50.30) 04/26/2024 intermediate frame tender (current) use of opiate analgesic (ICD-10 - Z79.891) 08/24/2024 intermediate frame tender (current) use of opiate analgesic (ICD-10 - [...] effects are noted. Last UDS and AR CARD CUTTER HELPER reviewed today. Patient is advised that [...] abide by our urine testing policy. 11/27/2024 intermediate frame tender (current) use of opiate analgesic (ICD-10 - Z79.891) 10/05/2024 halfway (current) use of opiate analgesic (ICD-10 - Z79.891) 06/22/2024 halfway (current) use of opiate analgesic (ICD-10 [...] to abide by our urine testing policy. 04/26/2024 Other I, Michael Payne, am scribing [...] Name Order Date Cervical Spine AP/Lat 2-3 Views-[id number] Next Appt Details Provider Name:Mode Cabello, 04/11/2025 01:40:00 PM, [address] [place], [address], Insurance Providers Payer Name Payer Address Payer Phone Subscriber Number Group Number Insured Name Patient Relationship to Insured Coverage Start Date Coverage End Date [place] Medicare [address] [place] [phone] [id number] BARRY VAN Self - patient is the insured [place] [employer] [place] [address] [place] [address] [phone] [id number] BARRY VAN Self - patient is the insured [place] [address] [address] [place] [address] [id number] BARRY VAN Self - patient is the insured Medical (General) History Surgical History Surgery Date(Month/Year) Neck surgeries left ankle surgery Jaw surgeries Hysterectomy Hernia surgery section Breast biopsy appendectomy
--- OUTSIDE RECORDS SUMMARY | 2025-03-15 05:38 | XMS_ITS | Patient Health Record ---
Author Organization [facility] Address [address] [place] [address] Support Name Relationship Address Phone BARRY VAN Guarantor Unknown [phone] Allergies Allergen (clinical drug ingredient) Drug/Non Drug [...] Status W/U Status Risk Notes Problem Hypothyroidism (09285326) Other specified hypothyroidism (E03.8) Active confirmed Problem Chronic pancreatitis (984062092) Other chronic pancreatitis (K86.1) Active confirmed Problem Sciatica (62467673) Lumbago with sciatica, right side (M54.41) Active confirmed Problem Sciatica (94159445) Lumbago with sciatica, left side (M54.42) Active confirmed Problem Anxiety (16481521) Anxiety (F41.9) Active confirmed Problem Posttraumatic stress disorder (90232115) PTSD (post-traumatic stress disorder) (F43.10) Active confirmed Problem Heart failure (55161925) Other congestive heart failure (I50.9) Active confirmed Problem Chronic pain due to injury (571221872) 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) Active [...] End Date [place], [address] [address] [place] [phone] [id number] BARRY VAN Self - patient is the insured [employer] [address] [place] [address] [place] [id number] BARRY VAN Self - patient is the insured Medical (General) History Medical History History ICD Code Hypothyroidism head injury with seizures multiple traumatic injuries from [facility] back surgery pancreatitis cataract pneumonia depression GERD Surgical History Surgery Date(Month/Year) back surgery 2014 Hospitalization History Reason Date(Month/Year) Pneumonia and hand infection. 11/2021
--- OUTSIDE RECORDS SUMMARY | 2025-03-15 05:38 | XMS_ITS | Continuity of Care Document ---
Author Organization [facility] Sharita, Job, [facility] ([facility]) Address [address] [place] [address] Care Team Providers Care Packer And Carry Out Name Role Phone KIERAN VO Primary Care [...] Address Organization Details Recorded Time Hand pain 36128424 Completed 202205/14/2024 [facility] 5 07:55:21 Hand pain 22335678 Completed 202205/14/2024 NICOLE gustafson [facility] LHarjeetLHarjeetCHarjeet 5 07:55:15 Low back pain 888430899 Completed 202305/14/2024 [facility]ICOLE [facility]son [facility] CenterRodgerLIgnacio 5 18:20:21 Deep venous thrombosi s of lower extremity 164269986 Completed 202305/14/2024 at [facility] non occlusi ve. IVC placed due to no able to take blood thinner s. NICOLE gustafson, [facility], [facility] 5 07:54:08 Chronic pain 52169851 Active 2023 NICOLE ROSA MARIA null, [facility], [facility] 5 07:54:43 Hospital inpatient stay within past 30 days 07881404003 06 Completed 202305/14/2024 NICOLE CRANE null, [facility], [facility] 5 07:55:38 History of cervical spine fusion 68994044367 01 Completed 202305/14/2024 NICOLE CRANE null, [facility] 5 07:55:29 Hypothyro idism 91421228 Active 2023 NICOLE CRANE null, [facility] 5 07:55:43 Depressiv e disorder 39505569 Active 2023 NICOLE CRANE null, [facility], [facility] 5 07:54:53 Gastroeso phageal reflux disease without esophagit is 015164963 Active 2023 NICOLE CRANE null, [facility], [facility] 5 07:55:09 Anxiety 05260131 Active 2023 NICOLE ROSA MARIA null, [facility], [facility] 5 07:54:40 Rib pain 021368619 Completed 202305/14/2024 NICOLE CRANE null, [facility] 5 07:57:21 Nausea 888122103 Completed 202305/14/2024 NICOLE CRANE null, [facility], [facility] 5 07:55:56 Peptic ulcer 12948269 Completed 202305/14/2024 NICOLE ROSA MARIA null, [facility], [facility] 5 07:57:13 Pain in bilateral legs 41473913004 269642 Completed 202305/14/2024 [facility] 5 07:56:52 Pain in left lower limb 805138380 Completed 202305/14/2024 NICOLE gustafson, [facility], LHarjeetL.C. 5 07:57:01 Acquired dilation of bile duct 93620071842 71232 Completed 202305/14/2024 NICOLE CRANE null, [facility], [facility] 5 07:54:30 Deep venous thrombosi s 761067408 Completed 202305/14/2024 NICOLE ROSA MARIA null, [facility] 5 07:54:50 Anemia 268682136 Active 2023 NICOLE ROSA MARIA null, [facility] 5 07:54:37 Pain in right arm 378796873 Completed 202305/14/2024 NICOLE HALESLYFEDD null, [facility], [facility] 5 07:57:07 Right upper quadrant pain 523136180 Completed 202305/14/2024 NICOLE ROSA MARIA null, [facility] 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 Procedures Surgical History Date Name Laterality Status Provider Name and Address Organization Details Recorded Time 2024 fluoroscopic angiography of coronary artery with contrast and insertion of stent completed [facility]ICOLE CRANE [facility] 5 18:02:58 2024 plain X-ray of chest completed PAULETTE JASON [facility] 5 00:10:[address] of abdomen and pelvis completed PAULETTE JASON [facility], [facility] 5 00:12:33 2023 insertion of arterial stent completed JER VO PA-C [address] [place], [address], [facility], [facility] 4 15:12:39 2023 colonoscopy completed KIERAN VO PA-C [address] [place], [address], [facility], [facility] 4 17:29:05 2023 esophagogastroduodenoscopy completed KIERAN VO PA-C [address] [place], [address], [facility], [facility] 4 17:08:01 2023 ultrasonography of liver completed NICOLE CRANE [facility], [facility] 4 16:43:05 2023 primary posterior decompression cervical cord and fusion completed KIERAN VO PA-C [address] [place], [address], [facility], [facility] 4 13:58:12 2023 insertion of inferior vena caval filter completed KIERAN VO PA-C [address] [place], [address], [facility], [facility] 4 13:58:28 2022 primary fusion of cervical spine completed KIERAN VO PA-C [address] [place], [address], [facility], [facility] 3 12:50:26 Imaging Results None recorded. Procedure Notes None recorded. Medical Equipment None Reported. Allergies Allergen ID Allergen Name Allergen Category Reaction Reaction Severity Criticality Documentation Date Start Date Code Code System Note Provider Name and Address Organization Details Recorded Time 14298 Benadryl medicatio n Not available Not available Not available 03/12/2023 68633 7 RxNorm NICOLE DEJESUSEDD gustafson, [facility], [facility] 3 12:01:01 43750 amitripty line medicatio n Not available Not available Not available 03/12/2023 704 RxNorm NICOLE DEJESUSEDD gustafson, [facility], [facility] 3 12:01:37 72264 tizanidin e medicatio n Not available Not available Not available 03/12/2023 45160 RxNorm NICOLE DEJESUSEDD gustafson, [facility], [facility] 3 12:08:21 89784 morphine medicatio n confusion Not available [facility] 09/02/2023 7052 RxNorm KIERAN VO PA-C [address] [place] [address], [address] [place] [address], L.L.C. 4 15:15:03 68100 venlafaxi ne medicatio n itching Not available Not available 02/13/2025 69636 RxNorm [facility] 5 14:50:24 93168 ibuprofen medicatio n Not available Not available [facility] 02/23/2025 5640 RxNorm Not Available dyer - External Data Service - prod 5 09:45:37 36977 acetamino phen medicatio n Not available Not [facility] 02/23/2025 161 RxNorm Not Available wanda - External Data Service - prod 5 09:45:37 74226 prochlorp erazine medicatio n Not available Not available [facility] 02/23/2025 8704 RxNorm Not Available wanda - External Data Service - prod 5 09:45:37 90722 diphenhyd ramine medicatio n Not available Not available unabletoasse 02/23/2025 3498 RxNorm unrec ogniz ed react ion (text : Hyper activ e behav ior (find ing), code: [id number]) ([facility]) Not Available [facility] External Data Service - prod 5 09:45:37 12829 leflunomi de medicatio n Not available Not available [facility] 02/23/20252024 75570 RxNorm Not Available wanda - External Data Service - [facility] 5 09:45:40 89425 sulfasala zine medicatio n Not available Not available [facility] 02/23/20252024 9524 RxNorm Not Available [facility] External Data Service - [facility] 5 09:45:40 47516 metoclopr amide Not available Not available Not available Not available 03/12/2025 6915 RxNorm Not Available [facility] External Data Service - [facility] 15:33:31 Medications Name Sig Start Date Stop [...] and Address Organization Details Last Updated DateTime 10/02/202 5 163.83 cm 23.5 kg/m2 20741.3 4 g 95 % 70 /min 18 /min 97.9 [degF] 120/70 mm[Hg] NICOLE CRANE [facility], [facility] 5 14:19:08 Social History Question Answer Notes LastModified by Organizat ion Details LastModified Time Tobacco Smoking Status Former Smoker Irene Naylor janay [facility] 09/05/2023 15:56:32 Which Illicit Or Recreational Drugs Have You Used? Leilani [email or web address] Information not available 11/02/2024 What Was The Date Of Your Most Recent Tobacco Screening? 11/02/2024 [email or web address] Information not available 11/02/2024 At What Age Did You Start Smoking Tobacco? 49 For 3 Weeks Only [email or web address] Information not available 11/02/2024 Sex: Unknown Functional Status Question Answer Note LastModified by Organizat ion Details LastModified Time Do you use any illicit or recreational drugs? Yes Information not available 11/02/2024 What is your level of alcohol consumption? None [email or web address] Information not available 11/02/2024 Mental Status None recorded. Family History Nothing Reported. Medical History No medical history recorded. Gynecological HistoryNo gynecological history recorded. Obstetrics History GPAL:G 0 P 0 0 0 0 Immunizations Vaccine Type Date Status Note Provider Nam e and Address Organization Details Recorded Time COVID-19, mRNA, LNP-S, PF, errol-sucrose, 30 mcg/0.3 mL 4 completed Gracie gustafson [facility] 11/12/2023 15:11:33 Influenza, split virus, trivalent, PF 4 completed Not Available [facility] 02/13/2025 14:28:04 Pneumococcal conjugate PCV20, polysaccharide BFY825 conjugate, adjuvant, PF 5 completed NICOLE gustafson [facility] 05/24/2024 16:17:51 Past Encounters Encounter ID Performer Location Encounter Start Date Encounter Closed Date Diagnosis/Indication Diagnosis SNOMED-CT Code Diagnosis ICD10 Code Diagnosis IMO Codes Diagnosis Note [id number] KIERAN VO PA-C [facility] ([facility]) [address] [place] [address] 01/11/2025 14:06:00 01/12/2025 08:44:46 Multi vessel coronary artery disease 188304688 I25.10 6027904 recent stents x 2 back to back. 01/04 need one year of dual plt asa and plavix therapy for 1 yr. Post-disch arge follow-up 091135803 Z09 095518 Exposure t o SARS-CoV-2 220524605 Z20.822 8795432469 pt left without being tested. Upper gastrointestinal bleeding 65275066 K92.2 394575 scope 03/[address] Ruiz. Scope 01/05/25 at [facility] small area of bleeding. needs plavix and ASA due to stent on 12/27/24 Health Concerns Section Related Observation LastModified by Organization Detai ls LastModified Time None Recorded Concern Status LastModified by Organization Details LastModified Time None Recorded Payers Encounter Date Sequence Insurance Name Policy Number Policy Rivera Covered Member ID Rivera Member ID Guarantor Name 01/11/2025 1 [place] Carmena S [place] [id number] Tosha Perry 01/11/2025 2 [facility] [facility] (MEDICARE SUPPLEMENT) Tosha Rancary [id number] Tosha Perry Notes Date Note Type Note [...] saw no pneumonia KIERAN VO PA-C [address] [place], [address], [facility] [place] [facility], Job 01/11/2025 18:13:05 OBGyn Episode No OBEpisode recorded.
--- OUTSIDE RECORDS SUMMARY | 2025-03-15 05:39 | XMS_ITS | Patient Health Record ---
Author Organization El Gonsalves D.O., [facility] Address [address] [place] [address] Care Team Providers Care Service Person Name Role Phone VeeChayo myers Primary Care Provider Unavailabl e El Gonsalves Unavailable [phone] Allergies Allergen (clinical drug ingredient) Drug/Non Drug Allergy documented on EMR Reaction Allergy Type Onset Date Status Information temporarily unavailable IV Contrast (uncoded) Uticaria Allergy Active Information temporarily unavailable Benadryl Hyperactivity Drug Allergy Active Information temporarily unavailable Amitriptyline Hyperactivity Drug Allergy Active Reason For [...] Problem Status W/U Status Risk Notes Problem Information temporarily unavailable Shortness of breath (R06.02) Active confirmed Problem Information temporarily unavailable Anxiety (F41.9) Active confirmed Problem Information temporarily unavailable Abnormal PFT: MVV reduced disproportionate to FEV1 (R94.2) Active confirmed Problem Information temporarily unavailable Peripheral edema (R60.9) Active confirmed Problem Information temporarily unavailable Restless leg syndrome (G25.81) Active confirmed Problem Information temporarily unavailable Pulmonary hypertension (I27.20) Active confirmed Problem Information temporarily unavailable Meningioma (D32.9) Active confirmed Problem Information temporarily unavailable 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) Active confirmed Problem Information temporarily unavailable 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 Plan Of Treatment Pending Test Test Name Order Date JAMES IFA SCREEN W/REFL TO TITER AND SUSHMA CABRALES, IFA 10/25/2020 Split Night Sleep Study 10/25/2020 Split Night Sleep Study 11/28/2020 Split Night Sleep Study 02/18/2021 Split Night Sleep Study 06/18/2021 MRI Brain with and without IV contrast 0 11/28/2020 Insurance Providers Payer Name Payer Address Payer Phone Subscriber Number Group Number Insured Name Patient Relationship to Insured Coverage Start Date Coverage End Date [employer] [place] [employer] [address] [address] [place] [address] [id number] Tosha Perry Self - patient is the insured [place], [place] [id number] Tosha Perry Self - patient is the [...]
--- NOTE | 2025-03-15 05:43 | CTR_ITS ---
PROCEDURE INFORMATION: Exam: CT Cervical Spine Without Contrast Exam date and time: 03/15/2025 5:46 AM Age: 70 years old Clinical indication: Injury or trauma; Other: Fall neck pain; Additional info: Fall, neck pain, HX of cervical surgery remotely TECHNIQUE: Imaging protocol: Computed tomography of the cervical spine without contrast. Radiation optimization: All CT scans at this facility use at least one of these dose optimization techniques: automated exposure control; mA and/or kV adjustment per patient size (includes targeted exams where dose is matched to clinical indication); or iterative reconstruction. COMPARISON: MR cervical spin wo con* [id number] 02/03/2024 8:11 AM RADIATION DOSE METRICS: Total DLP (mGy-cm): 365.07 FINDINGS: Bones: Extensive prior surgery. Posterior fusion C2 through T2, anterior fusion C3 through C6. Multilevel laminectomy. No evidence of malalignment. Intact hardware. Lungs: Lung apices are normal. Soft tissues: Unremarkable. CT/CT cervical spin wo con* [id number] IMPRESSION: 1. No acute cervical spine fracture. 2. Extensive postsurgical findings.
--- NOTE | 2025-03-15 05:51 | W.ED.CHESTPA ---
Documented by User: Brandon Acevedo MD 03/15/25 05:58 HPI - Chest Pain General: Chief Complaint: Chest Pain Stated Complaint: FALL Time Seen by Provider: 03/15/25 05:30 History of Present Illness: 70-year-old female with a past medical history significant for hypertension, DVT, heart failure, CAD with stents placed most recently in December and January of this year, recent admission for possible upper GI bleed, COPD, presenting to the emergency department today with a fall overnight sustaining right-sided head trauma with loss of consciousness and 10 out of 10 right-sided headache, reports that more recently this morning around 4 AM she developed onset of severe 10 out of 10 left-sided chest pain radiating to the left arm, she also complains of associated neck pain that started with head trauma event, she denies fever, denies weakness numbness or tingling to the extremities. Related Data Home Medications ?Medication ?Instructions ?Recorded ?Confirmed fluticasone propionate 50 1 spray intranasal BID PRN 09/27/23 03/15/25 mcg/actuation nasal allergies spray,suspension oxycodone 10 mg tablet 10 mg PO Q8H PRN Pain 12/29/23 03/15/25 ramelteon 8 mg tablet 8 mg PO BEDTIME 12/24/24 03/15/25 promethazine 25 mg tablet 25 mg PO Q6H PRN Nausea 01/03/25 03/15/25 lidocaine 5 % topical patch 1 patch topical [id number] PRN Pain 01/05/25 03/15/25 aspirin 81 mg tablet,delayed 81 mg PO DAILY 02/14/25 03/15/25 release atorvastatin 40 mg tablet 40 mg PO BEDTIME 02/14/25 03/15/25 folic acid 1 mg tablet 1 mg PO DAILY 02/14/25 03/15/25 furosemide 20 mg tablet 40 mg PO QAM 02/14/25 03/15/25 nitroglycerin 0.4 mg sublingual See Rx Instructions .Route .COMPLEX 02/14/25 03/15/25 tablet furosemide 40 mg tablet 40 mg PO DAILY 03/07/25 03/15/25 Previous Rx's ?Medication ?Instructions ?Recorded Bone growth stimulator #1 ea 01/22/23 Bone growth stimulator #1 ea 02/05/23 tens unit for cervical #1 ea 12/16/23 insulin syringes (disposable) 1 mL #25 ea 05/30/24 ropinirole 5 mg tablet 5 mg PO BID #270 tabs 10/25/24 baclofen 10 mg tablet 5 mg (1/2 x 10 mg) PO Q12H PRN 11/07/24 Muscle Spasm #30 tabs clopidogrel 75 mg tablet 75 mg PO DAILY 30 days #30 tabs 12/26/24 pantoprazole 40 mg tablet,delayed 40 mg PO Q12H 30 days #60 tabs 12/26/24 release (Protonix) potassium chloride 20 mEq 20 meq PO DAILY #30 tabs 12/26/24 tablet,extended release ranolazine 500 mg tablet,extended 500 mg PO BID #180 tabs 01/01/25 release,12 hr albuterol sulfate 90 mcg/actuation 2 inh inhalation Q4H PRN shortness 01/03/25 aerosol inhaler of breath or wheezing #18 grams adalimumab 40 mg/0.4 mL 40 mg (0.4 mL) SUBCUT Q14D #2 ea 02/07/25 subcutaneous syringe kit (Humira(CF)) levothyroxine 125 mcg tablet 125 mcg PO DAILY #30 tabs 02/13/25 ferrous sulfate 325 mg (65 mg 325 mg PO DAILY #90 tabs 03/09/25 iron) tablet (Iron (ferrous sulfate)) gabapentin 300 mg capsule 200 mg (0.6667 x 300 mg) PO TID 90 03/09/25 days #180 caps sucralfate 1 gram tablet 1 g PO Q6H 60 days #240 tabs 03/09/25 buspirone 7.5 mg tablet 7.5 mg PO BID #60 tabs 03/15/25 Allergies Allergy/AdvReac Type Severity Reaction Status Date / Time venlafaxine (From Effexor) Allergy Severe ADR-Agitate Verified 01/18/25 12:50 d ibuprofen Allergy Unknown ADR-Anxiety Verified 01/18/25 12:50 tizanidine Allergy Unknown Unknown Verified 01/18/25 12:50 acetaminophen Allergy ADR-Anxiety Verified 01/18/25 12:50 amitriptyline Allergy ADR-Agitate Verified 01/18/25 12:50 d diphenhydramine (From Allergy ADR-Agitate Verified 01/18/25 12:50 Benadryl) d metoclopramide (From Reglan) Allergy ADR-Agitate Verified 03/15/25 08:01 d morphine Allergy ADR-Halluci Verified 01/18/25 12:50 nating prochlorperazine (From Allergy Unknown Verified 01/18/25 12:50 Compazine) leflunomide AdvReac Intermediate GI adverse Verified 01/18/25 12:50 reactions sulfasalazine AdvReac Intermediate ADR-Nausea Verified 01/18/25 12:50 and acid reflux PFSH ED PFSH: Medical History Hypothyroidism Rheumatoid arthritis flare Coronary artery disease involving [place] coronary artery of [place] heart without angina pectoris Pneumonia DVT (deep venous thrombosis) Acute GI bleeding History of deep vein thrombosis GERD (gastroesophageal reflux disease) Pre-operative clearance Acute anemia Hematoma complicating a procedure Cervical adenopathy GI bleed Osteoarthritis, shoulder Cervical spondylosis with myelopathy GERD with esophagitis Allergic rhinitis due to allergen RLS (restless legs syndrome) Substance or medication-induced sleep disorder, insomnia type Anxiety and depression High risk medication use Seropositive rheumatoid arthritis of multiple sites Extrapyramidal and movement disorder CKD (chronic kidney disease) stage 3, GFR 30-59 ml/min Lung nodule, solitary Prediabetes Hyperlipidemia Iron deficiency anemia Surgical History S/P insertion of IVC (inferior vena caval) filter Status post cervical spinal fusion History of cholecystectomy History of appendectomy History of delivery History of hysterectomy with bilateral oophorectomy History of ankle surgery left Previous back surgery Social History Smoking and tobacco/nicotine status: former use of tobacco/nicotine Quit status (tobacco/nicotine): has quit using Year quit tobacco: 2009 Former quit date comment: Smoked for 9 months Alcohol intake: current Alcohol intake frequency: holidays/special occasions only Substance/Drug Use: never Additional social history: Patient tells me that after her accident she is chronically on oxycodone 10 mg 3 times daily. She is recently full code on 12/24/2024 admission Physical Exam Narrative: EXAM NARRATIVE: Gen: A&Ox4, no acute distress, nontoxic appearing HEENT: Normocephalic, atraumatic, no scleral icterus, external ears normal, moist mucous membranes, no scalp hematoma or laceration, no periorbital ecchymosis, no Leija sign, ranging neck in all directions without discomfort Neck: Supple, full range of motion, no observable masses Lungs: No Respiratory distress, Lungs clear to auscultation bilaterally no rales, rhonchi, wheezing CV: Regular rate and rhythm, no murmur, 1+ pitting edema to the bilateral lower extremities with symmetric bilateral lower extremity erythema and tenderness to palpation Abdomen: Soft, nondistended, nontender to palpation MSK: No joint swelling, FROM all 4 extremities Skin: No rashes, petechiae, lesions. Normal color per patient. Neuro: Alert and oriented, no slurred speech, sensation and strength grossly intact all 4 extremities Psych: Appropriate for situation. Course Reevaluation(s): Reevaluation #1: Patient to be signed out to oncoming morning physician pending evaluation of ordered workup and reassessment for appropriate disposition. Time: 05:56 Vital Signs: Vital signs: Vital Signs Temperature 97.6 F 03/15/25 05:26 Pulse Rate 65 03/15/25 10:24 Respiratory Rate 18 03/15/25 10:24 Blood Pressure 108/55 03/15/25 10:24 Pulse Oximetry 96 03/15/25 10:24 Oxygen Delivery Me thod Room Air 03/15/25 10:24 MDM - Chest Pain Medical Decision Making 70-year-old female presenting to the emergency department with syncopal fall with right sided head trauma and severe right-sided headache as well as more recently developed 1 hour prior to arrival severe left-sided chest pain rating to the left arm, patient has extensive medical history consisting of cardiac issues and was recently admitted for upper GI bleed in the setting of dual antiplatelet therapy that was continued given labs were stable while hospitalized and no significant bleeding was visualized, offered endoscopy but declined at that time, on arrival to the ER patient with stable vital signs, she appears to be in significant pain with wandering complaints but is otherwise nonfocal from a neurologic perspective, moving all extremities spontaneously, no external signs of trauma, will obtain CT head and cervical spine to rule out intracranial hemorrhage or cervical spine injury, cardiac evaluation with serial enzymes and EKG, trial of IV Tylenol, Benadryl, Reglan for headache and chest pain given patient with multiple allergies that do not appear consistent with true allergies, for example she reports an anxiety reaction to Tylenol as well as agitation secondary to Benadryl, do not meet criteria for IgE mediated allergic reaction so we will attempt these medications given opioids not indicated in my initial medical judgment. Reassess for disposition Lab Data 03/15/25 08:22 03/15/25 08:22 Radiology Impressions Chest X-Ray 03/15/25 05:30 IMPRESSION: 1. No acute cardiopulmonary finding. Head CT 03/15/25 05:30 IMPRESSION: No acute intracranial abnormality. Cervical Spine CT 03/15/25 05:43 IMPRESSION: 1. No acute cervical spine fracture. 2. Extensive postsurgical findings. Laboratory Results WBC 4.25 10^3/uL (3.29-11.43) 03/15/25 08:22 Corrected WBC Cancelled 03/15/25 07:40 RBC 3.55 10^6/uL (3.85-5.65) L 03/15/25 08:22 Hgb 9.60 g/dL (11.27-16.99) L 03/15/25 08:22 Hct 31.1 % (36-47) L 03/15/25 08:22 MCV 87.6 fl (85-98) 03/15/25 08:22 MCH 27.0 pg (27-33) 03/15/25 08:22 MCHC 30.9 g/dL (30-55) 03/15/25 08:22 RDW 14.3 % (12.1-15.1) 03/15/25 08:22 Plt Count 240 10^3/cmm (157-399) 03/15/25 08:22 MPV 9.2 fL (7.4-10.4) 03/15/25 08:22 Gran % Cancelled 03/15/25 07:40 Neut % (Auto) 37.4 % 03/15/25 08:22 Lymph % (Auto) 34.6 % 03/15/25 08:22 [place] % (Auto) 17.4 % 03/15/25 08:22 Eos % (Auto) 9.9 % 03/15/25 08:22 Baso % (Auto) 0.5 % 03/15/25 08:22 Neut # (Auto) 1.59 10^3/uL (1.8-7.7) L 03/15/25 08:22 Lymph # (Auto) 1.5 10^3/uL (0.8-4.8) 03/15/25 08:22 [place] # (Auto) 0.7 10^3/uL (0.2-0.9) 03/15/25 08:22 Eos # (Auto) 0.4 10^3/uL (0.0-0.8) 03/15/25 08:22 Baso # (Auto) 0.0 10^3/uL (0.0-0.1) 03/15/25 08:22 Absolute Gran (auto) Cancelled 03/15/25 07:40 Nucleated RBC % (auto) 0 % 03/15/25 08:22 Nucleated RBCs # 0.0 /100WBC 03/15/25 08:22 PT 13.00 SECONDS (12.1-14.9) 03/15/25 08:22 INR 0.92 (0.8-1.2) 03/15/25 08:22 APTT 25.3 SECONDS (23.9-36.7) 03/15/25 08:22 Sodium 141 mmol/L (136-145) 03/15/25 08:22 Potassium 2.9 mmol/L (3.5-5.1) L 03/15/25 08:22 Chloride 102 mmol/L (98-107) 03/15/25 08:22 Carbon Dioxide 25 mmol/L (22-29) 03/15/25 08:22 Anion Gap 16.9 (5-19) 03/15/25 08:22 BUN 20 mg/dL (8-23) 03/15/25 08:22 Creatinine 1.5 mg/dL (0.5-0.9) H 03/15/25 08:22 GFR Calculation Not Reportable 03/15/25 08:22 Glucose 98 mg/dL (65-115) 03/15/25 08:22 Calculated Osmolality 295 mOsm/kg (285-295) 03/15/25 08:22 Calcium 9.2 mg/dL (8.5-10.5) 03/15/25 08:22 Magnesium 1.9 mg/dL (1.7-2.3) 03/15/25 08:22 Total Bilirubin 0.3 mg/dL (0.15-1.2) 03/15/25 08:22 AST 21 U/L (0-32) 03/15/25 08:22 ALT 8 U/L (0-33) 03/15/25 08:22 Alkaline Phosphatase 157 U/L (35-105) H 03/15/25 08:22 Troponin T Baseline 17 ng/L (0-10) H 03/15/25 08:22 Troponin T 120 Minute 17.13 ng/L (0-10) H 03/15/25 10:14 Delta Troponin T 0.13 ABS# (0-10) 03/15/25 10:14 NT-Pro-B Natriuret Pep 475 pg/mL (0-125) H 03/15/25 08:22 Total Protein 7.6 g/dL (6.6-8.7) 03/15/25 08:22 Albumin 4.0 g/dL (3.5-5.2) 03/15/25 08:22 Globulin 3.6 g/dL (1.3-4.6) 03/15/25 08:22 XR interpretation done by ED provider, pending radiology final review EKG Data EKG 1: I personally reviewed and interpreted this EKG as follows: EKG interpretation date: 03/15/25 EKG interpretation time: 05:55 Interpretation: Sinus rhythm at 64 bpm, no STEMI, no ectopy, inferior Q waves, QTc 440 ms Discharge Plan Discharge Patient Disposition: Home Clinical Impression: Chest pain, atypical, Anxiety, At risk for dissatisfaction with healthcare Fall Qualifiers: Encounter type: initial encounter Qualified Code(s): W19.XXXA - Unspecified fall, initial encounter Anemia Qualifiers: Anemia type: iron deficiency Iron deficiency anemia type: unspecified iron deficiency Qualified Code(s): D50.9 - Iron deficiency anemia, unspecified Chronic pain Qualifiers: Chronic pain type: chronic pain syndrome Qualified Code(s): G89.4 - Chronic pain syndrome Condition: Stable Prescriptions: New buspirone 7.5 mg tablet 7.5 mg PO BID Qty: 60 0RF No Action (DME) tens unit for cervical See Rx Instructions .Route .MEDSUPPLY Qty: 1 0RF Rx Instructions: As directed (DME) Bone growth stimulator See Rx Instructions .Route .MEDSUPPLY Qty: 1 0RF Rx Instructions: As directed (DME) Bone growth stimulator See Rx Instructions .Route .MEDSUPPLY Qty: 1 0RF Rx Instructions: As directed (DME) insulin syringes (disposable) 1 mL syringe See Rx Instructions .ROUTE .MEDSUPPLY Qty: 25 3RF Rx Instructions: As directed Humira(CF) 40 mg/0.4 mL syringe kit 40 mg SUBCUT Q14D Qty: 2 5RF levothyroxine 125 mcg tablet 125 mcg PO DAILY Qty: 30 0RF oxycodone 10 mg tablet 10 mg PO Q8H PRN (Reason: Pain) ropinirole 5 mg tablet 5 mg PO BID Qty: 270 0RF ramelteon 8 mg tablet 8 mg PO BEDTIME clopidogrel 75 mg tablet 75 mg PO DAILY 30 Days Qty: 30 0RF pantoprazole [Protonix] 40 mg tablet,delayed release (DR/EC) 40 mg PO Q12H 30 Days Qty: 60 0RF potassium chloride 20 mEq tablet extended release 20 meq PO DAILY Qty: 30 0RF promethazine 25 mg tablet 25 mg PO Q6H PRN (Reason: Nausea) albuterol sulfate 90 mcg/actuation HFA aerosol inhaler 2 inh INHALATION Q4H PRN (Reason: shortness of breath or wheezing) Qty: 18 0RF lidocaine 5 % adhesive patch,medicated 1 patch topical [id number] PRN (Reason: Pain) furosemide 20 mg tablet 40 mg PO QAM atorvastatin 40 mg tablet 40 mg PO BEDTIME aspirin 81 mg tablet,delayed release (DR/EC) 81 mg PO DAILY nitroglycerin 0.4 mg tablet, sublingual See Rx Instructions .ROUTE .COMPLEX Rx Instructions: DISSOLVE 1 TABLET UNDER THE TONGUE EVERY 5 MINUTES NEEDED FOR CHEST PAIN. DO NOT EXCEED A TOTAL OF 3 DOSES IN 15 MINUTES. folic acid 1 mg tablet 1 mg PO DAILY furosemide 40 mg tablet 40 mg PO DAILY sucralfate 1 gram Tablet 1 g PO Q6H 60 Days Qty: 240 0RF gabapentin 300 mg capsule 200 mg PO TID 90 Days Qty: 180 0RF ferrous sulfate [Iron (ferrous sulfate)] 325 mg (65 mg iron) tablet 325 mg PO DAILY Qty: 90 0RF fluticasone propionate 50 mcg/actuation spray,suspension 1 spray INTRANASAL BID PRN (Reason: allergies) baclofen 10 mg tablet 5 mg PO Q12H PRN (Reason: Muscle Spasm) Qty: 30 0RF ranolazine 500 mg Tablet Extended Release 12 Hr 500 mg PO BID Qty: 180 0RF Discharge Orders: Discharge ED (Routine); Ordered 03/15/25 Ordered By: Sammy Plaza Referrals: Diana Garcia PA [Primary Care Provider, [facility]] Patient Instructions: Chest Pain (ED), Opioid Safety, Pain Management, Patient Portal & Cece Instructions Activity Restrictions/Additional Instructions: [facility] [place] [facility]. It is very important that you follow up as instructed or that you return to the Emergency Department should you have concerns or if your condition changes or worsens in any way. Emergency department visits are focused on emergent conditions, in some cases you may require further evaluation on an outpatient basis. You were seen in the emergency room after a fall. Imaging was negative. You also complained of some chest discomfort your cardiac enzymes EKGs were normal. Will discharge you home. You can continue to use medications that have been previously prescribed for your chronic pain issues. Will also make an appointment for you to follow-up with cardiology. (Please note that included in your discharge packet is information concerning opioid safety and pain management. This information is given to all patients were discharged from the ER regardless of their discharge diagnosis or the medicines they usually take or are prescribed.) Print Language: [place] Sign Out Sign Out Data: Patient Sign Out occurred on 03/15/25 at 07:20. Patient's care was discussed, and care was transferred from Brandon Acevedo MD to Sammy Plaza DO. Coding Level of Care Code ED [employer] Machine for Chg Fwd Heart Score HEART Score Components History: Slightly Suspicous EKG: Non-specific Changes Age: 65 or more yrs Risk Factors: >/=3 Risk Factors Troponin: Baseline Trop <16 ng/L HEART Score RESULT HEART Score: 5 Documented by User: Sammy Plaza DO 03/15/25 11:54 HPI - Chest Pain General: Chief Complaint: Chest Pain Stated Complaint: FALL Time Seen by Provider: 03/15/25 05:30 Related Data Home Medications ?Medication ?Instructions ?Recorded ?Confirmed fluticasone propionate 50 1 spray intranasal BID PRN 09/27/23 03/15/25 mcg/actuation nasal allergies spray,suspension oxycodone 10 mg tablet 10 mg PO Q8H PRN Pain 12/29/23 03/15/25 ramelteon 8 mg tablet 8 mg PO BEDTIME 12/24/24 03/15/25 promethazine 25 mg tablet 25 mg PO Q6H PRN Nausea 01/03/25 03/15/25 lidocaine 5 % topical patch 1 patch topical [id number] PRN Pain 01/05/25 03/15/25 aspirin 81 mg tablet,delayed 81 mg PO DAILY 02/14/25 03/15/25 release atorvastatin 40 mg tablet 40 mg PO BEDTIME 02/14/25 03/15/25 folic acid 1 mg tablet 1 mg PO DAILY 02/14/25 03/15/25 furosemide 20 mg tablet 40 mg PO QAM 02/14/25 03/15/25 nitroglycerin 0.4 mg sublingual See Rx Instructions .Route .COMPLEX 02/14/25 03/15/25 tablet furosemide 40 mg tablet 40 mg PO DAILY 03/07/25 03/15/25 Previous Rx's ?Medication ?Instructions ?Recorded Bone growth stimulator #1 ea 01/22/23 Bone growth stimulator #1 ea 02/05/23 tens unit for cervical #1 ea 12/16/23 insulin syringes (disposable) 1 mL #25 ea 05/30/24 ropinirole 5 mg tablet 5 mg PO BID #270 tabs 10/25/24 baclofen 10 mg tablet 5 mg (1/2 x 10 mg) PO Q12H PRN 11/07/24 Muscle Spasm #30 tabs clopidogrel 75 mg tablet 75 mg PO DAILY 30 days #30 tabs 12/26/24 pantoprazole 40 mg tablet,delayed 40 mg PO Q12H 30 days #60 tabs 12/26/24 release (Protonix) potassium chloride 20 mEq 20 meq PO DAILY #30 tabs 12/26/24 tablet,extended release ranolazine 500 mg tablet,extended 500 mg PO BID #180 tabs 01/01/25 release,12 hr albuterol sulfate 90 mcg/actuation 2 inh inhalation Q4H PRN shortness 01/03/25 aerosol inhaler of breath or wheezing #18 grams adalimumab 40 mg/0.4 mL 40 mg (0.4 mL) SUBCUT Q14D #2 ea 02/07/25 subcutaneous syringe kit (Humira(CF)) levothyroxine 125 mcg tablet 125 mcg PO DAILY #30 tabs 02/13/25 ferrous sulfate 325 mg (65 mg 325 mg PO DAILY #90 tabs 03/09/25 iron) tablet (Iron (ferrous sulfate)) gabapentin 300 mg capsule 200 mg (0.6667 x 300 mg) PO TID 90 03/09/25 days #180 caps sucralfate 1 gram tablet 1 g PO Q6H 60 days #240 tabs 03/09/25 buspirone 7.5 mg tablet 7.5 mg PO BID #60 tabs 03/15/25 Allergies Allergy/AdvReac Type Severity Reaction Status Date / Time venlafaxine (From Effexor) Allergy Severe ADR-Agitate Verified 01/18/25 12:50 d ibuprofen Allergy Unknown ADR-Anxiety Verified 01/18/25 12:50 tizanidine Allergy Unknown Unknown Verified 01/18/25 12:50 acetaminophen Allergy ADR-Anxiety Verified 01/18/25 12:50 amitriptyline Allergy ADR-Agitate Verified 01/18/25 12:50 d diphenhydramine (From Allergy ADR-Agitate Verified 01/18/25 12:50 Benadryl) d metoclopramide (From Reglan) Allergy ADR-Agitate Verified 03/15/25 08:01 d morphine Allergy ADR-Halluci Verified 01/18/25 12:50 nating prochlorperazine (From Allergy Unknown Verified 01/18/25 12:50 Compazine) leflunomide AdvReac Intermediate GI adverse Verified 01/18/25 12:50 reactions sulfasalazine AdvReac Intermediate ADR-Nausea Verified 01/18/25 12:50 and acid reflux PFS ED PFSH: Medical History Hypothyroidism Rheumatoid arthritis flare Coronary artery disease involving [place] coronary artery of [place] heart without angina pectoris Pneumonia DVT (deep venous thrombosis) Acute GI bleeding History of deep vein thrombosis GERD (gastroesophageal reflux disease) Pre-operative clearance Acute anemia Hematoma complicating a procedure Cervical adenopathy GI bleed Osteoarthritis, shoulder Cervical spondylosis with myelopathy GERD with esophagitis Allergic rhinitis due to allergen RLS (restless legs syndrome) Substance or medication-induced sleep disorder, insomnia type Anxiety and depression High risk medication use Seropositive rheumatoid arthritis of multiple sites Extrapyramidal and movement disorder CKD (chronic kidney disease) stage 3, GFR 30-59 ml/min Lung nodule, solitary Prediabetes Hyperlipidemia Iron deficiency anemia Surgical History S/P insertion of IVC (inferior vena caval) filter Status post cervical spinal fusion History of cholecystectomy History of appendectomy History of delivery History of hysterectomy with bilateral oophorectomy History of ankle surgery left Previous back surgery Social History Smoking and tobacco/nicotine status: former use of tobacco/nicotine Quit status (tobacco/nicotine): has quit using Year quit tobacco: 2009 Former quit date comment: Smoked for 9 months Alcohol intake: current Alcohol intake frequency: holidays/special occasions only Substance/Drug Use: never Additional social history: Patient tells me that after her accident she is chronically on oxycodone 10 mg 3 times daily. She is recently full code on 12/24/2024 admission Course Vital Signs: Vital signs: Vital Signs Temperature 97.6 F 03/15/25 05:26 Pulse Rate 65 03/15/25 10:24 Respiratory Rate 18 03/15/25 10:24 Blood Pressure 108/55 03/15/25 10:24 Pulse Oximetry 96 03/15/25 10:24 Oxygen Delivery Me thod Room Air 03/15/25 10:24 MDM - Chest Pain Medical Decision Making 70-year-old female presenting to the emergency department with syncopal fall with right sided head trauma and severe right-sided headache as well as more recently developed 1 hour prior to arrival severe left-sided chest pain rating to the left arm, patient has extensive medical history consisting of cardiac issues and was recently admitted for upper GI bleed in the setting of dual antiplatelet therapy that was continued given labs were stable while hospitalized and no significant bleeding was visualized, offered endoscopy but declined at that time, on arrival to the ER patient with stable vital signs, she appears to be in significant pain with wandering complaints but is otherwise nonfocal from a neurologic perspective, moving all extremities spontaneously, no external signs of trauma, will obtain CT head and cervical spine to rule out intracranial hemorrhage or cervical spine injury, cardiac evaluation with serial enzymes and EKG, trial of IV Tylenol, Benadryl, Reglan for headache and chest pain given patient with multiple allergies that do not appear consistent with true allergies, for example she reports an anxiety reaction to Tylenol as well as agitation secondary to Benadryl, do not meet criteria for IgE mediated allergic reaction so we will attempt these medications given opioids not indicated in my initial medical judgment. Reassess for disposition Care assumed at change of shift. Extended ER stay due to difficulty with blood draws. It was 3 hours [id number] to get her first labs back. Reviewing chart patient has had 3 echocardiograms within the last 6 months no significant valvular disease. 1 did show some diastolic dysfunction. Ejection fraction is otherwise normal no significant aortic valvular disease. Cardiac event monitor done December of this year was also normal. Patient does have chronic pain issues. She was last prescribed oxycodone on January 16 for a 30-day supply. She does have some mild hypokalemia which was corrected with oral potassium replacement. Patient states she is also very anxious and wants something for anxiety we will start her on BuSpar 7.5 twice daily encouraged her to follow-up with her primary care doctor. Additionally we will refer her to cardiology clinic. Medical Records I reviewed the patient's medical records. Lab Data I reviewed the patient's lab results. 03/15/25 08:22 03/15/25 08:22 Radiology Impressions Chest X-Ray 03/15/25 05:30 IMPRESSION: 1. No acute cardiopulmonary finding. Head CT 03/15/25 05:30 IMPRESSION: No acute intracranial abnormality. Cervical Spine CT 03/15/25 05:43 IMPRESSION: 1. No acute cervical spine fracture. 2. Extensive postsurgical findings. Laboratory Results WBC 4.25 10^3/uL (3.29-11.43) 03/15/25 08:22 Corrected WBC Cancelled 03/15/25 07:40 RBC 3.55 10^6/uL (3.85-5.65) L 03/15/25 08:22 Hgb 9.60 g/dL (11.27-16.99) L 03/15/25 08:22 Hct 31.1 % (36-47) L 03/15/25 08:22 MCV 87.6 fl (85-98) 03/15/25 08:22 MCH 27.0 pg (27-33) 03/15/25 08:22 MCHC 30.9 g/dL (30-55) 03/15/25 08:22 RDW 14.3 % (12.1-15.1) 03/15/25 08:22 Plt Count 240 10^3/cmm (157-399) 03/15/25 08:22 MPV 9.2 fL (7.4-10.4) 03/15/25 08:22 Gran % Cancelled 03/15/25 07:40 Neut % (Auto) 37.4 % 03/15/25 08:22 Lymph % (Auto) 34.6 % 03/15/25 08:22 [place] % (Auto) 17.4 % 03/15/25 08:22 Eos % (Auto) 9.9 % 03/15/25 08:22 Baso % (Auto) 0.5 % 03/15/25 08:22 Neut # (Auto) 1.59 10^3/uL (1.8-7.7) L 03/15/25 08:22 Lymph # (Auto) 1.5 10^3/uL (0.8-4.8) 03/15/25 08:22 [place] # (Auto) 0.7 10^3/uL (0.2-0.9) 03/15/25 08:22 Eos # (Auto) 0.4 10^3/uL (0.0-0.8) 03/15/25 08:22 Baso # (Auto) 0.0 10^3/uL (0.0-0.1) 03/15/25 08:22 Absolute Gran (auto) Cancelled 03/15/25 07:40 Nucleated RBC % (auto) 0 % 03/15/25 08:22 Nucleated RBCs # 0.0 /100WBC 03/15/25 08:22 PT 13.00 SECONDS (12.1-14.9) 03/15/25 08:22 INR 0.92 (0.8-1.2) 03/15/25 08:22 APTT 25.3 SECONDS (23.9-36.7) 03/15/25 08:22 Sodium 141 mmol/L (136-145) 03/15/25 08:22 Potassium 2.9 mmol/L (3.5-5.1) L 03/15/25 08:22 Chloride 102 mmol/L (98-107) 03/15/25 08:22 Carbon Dioxide 25 mmol/L (22-29) 03/15/25 08:22 Anion Gap 16.9 (5-19) 03/15/25 08:22 BUN 20 mg/dL (8-23) 03/15/25 08:22 Creatinine 1.5 mg/dL (0.5-0.9) H 03/15/25 08:22 GFR Calculation Not Reportable 03/15/25 08:22 Glucose 98 mg/dL (65-115) 03/15/25 08:22 Calculated Osmolality 295 mOsm/kg (285-295) 03/15/25 08:22 Calcium 9.2 mg/dL (8.5-10.5) 03/15/25 08:22 Magnesium 1.9 mg/dL (1.7-2.3) 03/15/25 08:22 Total Bilirubin 0.3 mg/dL (0.15-1.2) 03/15/25 08:22 AST 21 U/L (0-32) 03/15/25 08:22 ALT 8 U/L (0-33) 03/15/25 08:22 Alkaline Phosphatase 157 U/L (35-105) H 03/15/25 08:22 Troponin T Baseline 17 ng/L (0-10) H 03/15/25 08:22 Troponin T 120 Minute 17.13 ng/L (0-10) H 03/15/25 10:14 Delta Troponin T 0.13 ABS# (0-10) 03/15/25 10:14 NT-Pro-B Natriuret Pep 475 pg/mL (0-125) H 03/15/25 08:22 Total Protein 7.6 g/dL (6.6-8.7) 03/15/25 08:22 Albumin 4.0 g/dL (3.5-5.2) 03/15/25 08:22 Globulin 3.6 g/dL (1.3-4.6) 03/15/25 08:22 Discharge Plan Discharge Patient Disposition: Home Clinical Impression: Chest pain, atypical, Anxiety, At risk for dissatisfaction with healthcare Fall Qualifiers: Encounter type: initial encounter Qualified Code(s): W19.XXXA - Unspecified fall, initial encounter Anemia Qualifiers: Anemia type: iron deficiency Iron deficiency anemia type: unspecified iron deficiency Qualified Code(s): D50.9 - Iron deficiency anemia, unspecified Chronic pain Qualifiers: Chronic pain type: chronic pain syndrome Qualified Code(s): G89.4 - Chronic pain syndrome Condition: Stable Prescriptions: New buspirone 7.5 mg tablet 7.5 mg PO BID Qty: 60 0RF No Action (DME) tens unit for cervical See Rx Instructions .Route .MEDSUPPLY Qty: 1 0RF Rx Instructions: As directed (DME) Bone growth stimulator See Rx Instructions .Route .MEDSUPPLY Qty: 1 0RF Rx Instructions: As directed (DME) Bone growth stimulator See Rx Instructions .Route .MEDSUPPLY Qty: 1 0RF Rx Instructions: As directed (DME) insulin syringes (disposable) 1 mL syringe See Rx Instructions .ROUTE .MEDSUPPLY Qty: 25 3RF Rx Instructions: As directed Humira(CF) 40 mg/0.4 mL syringe kit 40 mg SUBCUT Q14D Qty: 2 5RF levothyroxine 125 mcg tablet 125 mcg PO DAILY Qty: 30 0RF oxycodone 10 mg tablet 10 mg PO Q8H PRN (Reason: Pain) ropinirole 5 mg tablet 5 mg PO BID Qty: 270 0RF ramelteon 8 mg tablet 8 mg PO BEDTIME clopidogrel 75 mg tablet 75 mg PO DAILY 30 Days Qty: 30 0RF pantoprazole [Protonix] 40 mg tablet,delayed release (DR/EC) 40 mg PO Q12H 30 Days Qty: 60 0RF potassium chloride 20 mEq tablet extended release 20 meq PO DAILY Qty: 30 0RF promethazine 25 mg tablet 25 mg PO Q6H PRN (Reason: Nausea) albuterol sulfate 90 mcg/actuation HFA aerosol inhaler 2 inh INHALATION Q4H PRN (Reason: shortness of breath or wheezing) Qty: 18 0RF lidocaine 5 % adhesive patch,medicated 1 patch topical [id number] PRN (Reason: Pain) furosemide 20 mg tablet 40 mg PO QAM atorvastatin 40 mg tablet 40 mg PO BEDTIME aspirin 81 mg tablet,delayed release (DR/EC) 81 mg PO DAILY nitroglycerin 0.4 mg tablet, sublingual See Rx Instructions .ROUTE .COMPLEX Rx Instructions: DISSOLVE 1 TABLET UNDER THE TONGUE EVERY 5 MINUTES NEEDED FOR CHEST PAIN. DO NOT EXCEED A TOTAL OF 3 DOSES IN 15 MINUTES. folic acid 1 mg tablet 1 mg PO DAILY furosemide 40 mg tablet 40 mg PO DAILY sucralfate 1 gram Tablet 1 g PO Q6H 60 Days Qty: 240 0RF gabapentin 300 mg capsule 200 mg PO TID 90 Days Qty: 180 0RF ferrous sulfate [Iron (ferrous sulfate)] 325 mg (65 mg iron) tablet 325 mg PO DAILY Qty: 90 0RF fluticasone propionate 50 mcg/actuation spray,suspension 1 spray INTRANASAL BID PRN (Reason: allergies) baclofen 10 mg tablet 5 mg PO Q12H PRN (Reason: Muscle Spasm) Qty: 30 0RF ranolazine 500 mg Tablet Extended Release 12 Hr 500 mg PO BID Qty: 180 0RF Discharge Orders: Discharge ED (Routine); Ordered 03/15/25 Ordered By: Sammy Plaza Referrals: Diana Garcia PA [Primary Care Provider, [facility]] Patient Instructions: Chest Pain (ED), Opioid Safety, Pain Management, Patient Portal & Cece Instructions Activity Restrictions/Additional Instructions: Thank you for choosing [facility] for your healthcare needs today. It is very important that you follow up as instructed or that you return to the Emergency Department should you have concerns or if your condition changes or worsens in any way. Emergency department visits are focused on emergent conditions, in some cases you may require further evaluation on an outpatient basis. You were seen in the emergency room after a fall. Imaging was negative. You also complained of some chest discomfort your cardiac enzymes EKGs were normal. Will discharge you home. You can continue to use medications that have been previously prescribed for your chronic pain issues. Will also make an appointment for you to follow-up with cardiology. (Please note that included in your discharge packet is information concerning opioid safety and pain management. This information is given to all patients were discharged from the ER regardless of their discharge diagnosis or the medicines they usually take or are prescribed.) Print Language: Uruguayan Sign Out Sign Out Data: Patient Sign Out occurred on 03/15/25 at 07:20. Patient's care was discussed, and care was transferred from Brandon Acevedo MD to Sammy Plaza DO. Coding Level of Care Code ED Sand Mixer Machine for Chg Fwd Heart Score HEART Score RESULT HEART Score: 5
[2025-03-15 08:34] LABS: Hematocrit 31.1 % (36-47); Hemoglobin 9.60 g/dL (11.27-16.99); Mean Corpuscular HGB Conc 30.9 g/dL (30-55); Mean Corpuscular Hemoglobin 27.0 pg (27-33); Mean Corpuscular Volume 87.6 fl (85-98); Nucleated Red Blood Cells % 0 %; Platelet Count 240 10^3/cmm (157-399); Red Blood Count 3.55 10^6/uL (3.85-5.65); White Blood Count 4.25 10^3/uL (3.29-11.43)
[2025-03-15 08:56] LABS: Troponin(5th) Baseline 17 ng/L (0-10)
[2025-03-15 09:06] LABS: Alanine Aminotransferase 8 U/L (0-33); Albumin Level 4.0 g/dL (3.5-5.2); Alkaline Phosphatase 157 U/L (35-105); Anion Gap 16.9 (5-19); Aspartate Amino Transferase 21 U/L (0-32); Blood Urea Nitrogen 20 mg/dL (8-23); Calcium 9.2 mg/dL (8.5-10.5); Carbon Dioxide 25 mmol/L (22-29); Chloride 102 mmol/L (98-107); Globulin 3.6 g/dL (1.3-4.6); Glucose 98 mg/dL (65-115); NT Pro B Type Natriuretic Pept 475 pg/mL (0-125); Osmolality Calculated 295 mOsm/kg (285-295); Sodium 141 mmol/L (136-145); Total Protein 7.6 g/dL (6.6-8.7)
[2025-03-15 09:11] LABS: Potassium 2.9 mmol/L (3.5-5.1)
[2025-03-15 09:38] LABS: Magnesium 1.9 mg/dL (1.7-2.3)
[2025-03-15 10:00] LABS: INR 0.92 (0.8-1.2); Partial Thromboplastin Time 25.3 SECONDS (23.9-36.7); Prothrombin Time 13.00 SECONDS (12.1-14.9)
[2025-03-15] MEDS: potassium chloride oral liq 20 mEq/15 mL UDC 40 MEQ PO (10:13)
--- NOTE | 2025-03-15 10:23 | PC.NURSE ---
pt given a 496 mL cup of water for oral fluids per MD.
--- NOTE | 2025-03-15 11:30 | ECG_ITS ---
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 Measurements Intervals [place] Rate: 66 P: 240 TN: 250 QRS: -19 QRSD: 105 T: 34 QT: 377 QTc: 397 Interpretive Statements ELECTRONIC ATRIAL PACEMAKER SEPTAL MYOCARDIAL INFARCTION , PROBABLY OLD [40+ ms Q WAVE IN V1/V2] Compared to ECG 03/15/2025 05:34:38 Myocardial infarct finding now present Sinus rhythm no longer present Electronically Signed On 03-16-2025 19:02:32 SHORER by Sherine Greene M.D. [email or web address]
== END 2025-03-15 11:31 | disposition home or self-care (01) ==
PROVIDERS: Student in an Organized Health Care Education/Training Program; Emergency Provider Family Medicine; PCP Physician Assistant
DX: R07.89 Other chest pain (principal); F41.9 Anxiety disorder, unspecified; Z91.89 Other specified personal risk factors, not elsewhere classified; D50.9 Iron deficiency anemia, unspecified; G89.4 Chronic pain syndrome; Z79.02 Long term (current) use of antithrombotics/antiplatelets; Z79.82 Long term (current) use of aspirin; I25.10 Atherosclerotic heart disease of native coronary artery without angina pectoris; E78.5 Hyperlipidemia, unspecified; I13.0 Hypertensive heart and chronic kidney disease with heart failure and stage 1 through stage 4 chronic kidney disease, or unspecified chronic kidney disease; N18.30 Chronic kidney disease, stage 3 unspecified; I50.9 Heart failure, unspecified; Z87.891 Personal history of nicotine dependence
CPT/HCPCS: 36415; 70450; 71045; 72125; 80053; 83735; 83880; 84484; 85025; 85610; 85730; 93005; 99214; 99285; J9999

== ENCOUNTER 2025-03-27 05:04 | Emergency (ER) | payer MEDICARE, OTHER, SELFPAY ==
--- OUTSIDE RECORDS SUMMARY | 2024-07-17 03:30 | XMS_ITS ---
Author Organization [facility] Address [address] [place] [address] Care Team Providers Care Courier Name Role Phone Diana Galvan Primary Care Provider Deedee Osei Unavailable [phone] Paxton Nobles Unavailable [phone] REASON FOR VISIT wants new mri Social History Sex Assigned At : Social History Observation Description Sex Assigned At Female Encounters Encounter Location Date Provider Diagnosis [facility] [place] [address] [address] 07/17/2024 Paxton Nobles Plan Of Treatment Next Appt Details Provider Name:Mode Cabello, 04/11/2025 01:40:00 PM, [address] [place], [address], Progress Notes * BARRY VAN SDOB:[birth year] (70 yo F)Acc No.[id number]:07/17/2024 Progress Notes Patient: BARRY LIVINGSTON Provider: Rosalia Nobles APRN :1955 A ge:69 Y S ex:Female Date:07/17/2024 Address:[address] [place] [address] [address], [place], [place] Pcp:SHIV Chong Subjective: * Chief Complaints: * W ants new mri Billing Information: * Procedure Codes: Care Plan Details* * Electronic signature of Syed Nobles PEDIATRIC NEPHROLOGIST on 03/27/2025 at 05:12 AM SOFTWARE QUALITY ASSURANCE ANALYST Sign off status: Pending * Provider: Rosalia Nobles APRN Date: 0 07/17/2024 Generated for Shen lindo/Sindy/Chandler on: 1 05/28/2024 05:12 AM SOFTWARE QUALITY ASSURANCE ANALYST
[2025-03-27 05:04] VITALS: BP 127/68; PULSE 72; RESP 22; TEMP 36.8; O2SAT 96; BMI 23.8
--- NOTE | 2025-03-27 05:11 | XRR_ITS ---
PROCEDURE INFORMATION: Exam: XR Chest Exam date and time: 03/27/2025 5:56 AM Age: 70 years old Clinical indication: Pain; Other: Cp TECHNIQUE: Imaging protocol: Radiologic exam of the chest. Views: 1 view. COMPARISON: CR (CHEST, ) 03/15/2025 5:56 AM FINDINGS: Lungs: Unremarkable. No consolidation. Pleural spaces: Unremarkable. No pleural effusion. No pneumothorax. Heart/Mediastinum: Unremarkable. No cardiomegaly. Bones/joints: Unremarkable. XR/XR chest 1V portable [id number] IMPRESSION: No acute findings.
--- OUTSIDE RECORDS SUMMARY | 2025-03-27 05:11 | XMS_ITS | Patient Health Record ---
Author Organization [facility] Billing Info Address [address] [place] [address] [place] [address] Phone [phone] Care Team Providers Care Welder/Fabricator Name Role Phone ABDOUL ARMANDOGAVINO Unavailable [phone] JITENDRA PFEIFFER Unavailable Unavailable Allergies Allergen (clinical drug ingredient) Drug/Non Drug Allergy documented on EMR Reaction Allergy Type Onset Date Status diphenhydramine Benadryl Unknown Drug Allergy A ctive metoclopramide Reglan Unknown Drug Allergy Ac tive Elavil Unknown Drug Allergy Active Reason For Referral No Information Medications Medication SIG (Take, Route, Frequency, Duration) Notes Start Date End Date Diagnosis (ICD Code) Status Requip 3 MG Unspecified 1 TABLET TID ORALLY 90 DAYS; Duration: 90 Active Neurontin 600 MG Tablet 1 tablet Orally Three times a day Active Creon 08954 UNIT Capsule Delayed Release Particles 2 Orally TID before meals; Duration: 30 days 02/17/2017 Active Lexapro 20 MG Tablet 2 tablets Orally Once a day Active Keppra 1000 MG Tablet 1 tablet Orally Twice a day; Duration: 90 days Active Tramadol HCl 50 MG Tablet 1 tablet as needed Orally every 6 hrs Active Aldactone 50 MG Tablet 1 tablet Orally Twice a day Active Dilantin 100 MG Capsule 1 capsule Orally Three times a day Active Lumigan 0.03 % Solution 1 drop into affected eye in the evening Ophthalmic Once a day Active Ropinirole HCl 3 MG Tablet TAKE 1 TABLET BY MOUTH THREE TIMES DAILY; Duration: 90 Active PredniSONE 20 MG Tablet 1 tablet Orally Once a day; Duration: 7 days 11/12/2016 Effusion, right wrist (ICD_10 - M25.431) Active Ranitidine HCl 150 MG Tablet 1 tablet at bedtime Orally Once a day; Duration: 10 days 01/11/2017 GERD without esophagitis (ICD_10 - K21.9) Active Omeprazole 40 MG Capsule Delayed Release 1 capsule Orally Once a day Active Atorvastatin Calcium Dyslipidemia (ICD_10 - E78.5) Active Requip 3 MG Tablet 1 tablet Orally TID; Duration: 90 days Active Synthroid 112 MCG Tablet 1 tablet on an empty stomach in the morning Orally Once a day Hypothyroidism (acquired) (ICD_10 - E03.9) Active Ondansetron HCl 4 MG Tablet 2 tablets Orally Once a day; Duration: 10 days 01/11/2017 Nausea (ICD_10 - R11.0) Active Social History Tobacco Use: Social History Observation Description Date Details (start date - stop date) Former Smoker NA - NA Sex Observation Social History Observation Description Sex Observation Female Social History Social History Social Info Question Answer Notes Tobacco Status: Patient is a former smoker 1 pack pe r week Quit in: 11/2016 Illicit Drug Use: Patient/Family reports: No illicit d rug use Alcohol Use: Patient does not use alcohol Quit 04/17/2012 Additional Details Category Social Info Options Details Social History Occupation/Work: retired Exercise: no routine exerc ise Caffeine: per day, coffee, tea, soda Children: yes, 1 son Marital Status: Drugs: marijuana Education/School: college Logist ics degree Personal Information: Her son is living at [facility] due to Meth addiction. She is now living at the same facility. 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) Added On:11/12 Active confirmed Problem Wrist joint effusion (568329738) Effusion, right wrist (M25.431) Added On:11/12 Active confirmed Problem Dyslipidemia (333413481) Dyslipidemia (E78.5) Added On:11/12 Active confirmed Problem Seizure (89145912) Seizures (R56.9) Added On:11/12 Active confirmed Problem Heart murmur (32717689) Heart murmur (R01.1) Added On:11/12 Active confirmed Problem Diabetes mellitus type 2 in nonobese (842077104) Diabetes mellitus type 2 in nonobese (E11.9) Added On:11/12 Active confirmed Problem Gastroesophageal reflux disease (652175388) GERD without esophagitis (K21.9) Added On:11/12 Active confirmed Problem Hypothyroidism (16407596) Hypothyroidism (acquired) (E03.9) Added On:11/12 Active confirmed Problem Angina (485057448) 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) Added On:11/12 Active confirmed Problem Depressive disorder (disorder) (21970789) Depression, unspecified depression type (F32.9) Added On:11/12 Active confirmed Problem Vestibular schwannoma (673915371) 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) Added On:11/12 Active confirmed Problem Cataract (847230103) Cataract of left eye, unspecified cataract type (H26.9) Added On:11/18 Active confirmed Plan Of Treatment Pending Test Test Name Order Date Hemoglobin A1c ([id number]) 11/12/2016 MRI- BRAIN WO CONTRAST (43130)([facility]) 01/22/2017 XRAY- ABDOMEN-KUB 1V (53435)([facility]-ABDK1 ) 01/21/2017 Insurance Providers Payer Name Payer Address Payer Phone Subscriber Number Group Number Insured Name Patient Relationship to Insured Coverage Start Date Coverage End Date [place]ARE [place] PART B [address] [facility] [place] [id number] Tosha Perry Self - patient is the insured [address] [facility] SU[facility] [id number] [facility] [place] [id number] [phone] [id number] Tosha Perry Self - patient is the [...] surgery 08/2015 Hospitalization History Reason Date(Month/Year) Pancreatitis 2012 Pancreatitis 12/2016
--- OUTSIDE RECORDS SUMMARY | 2025-03-27 05:11 | XMS_ITS | Continuity of Care Document ---
Author Organization [facility], Job, [facility] ([facility]) Address [address] [place] [address] Care Team Providers Care Office Technologist Name Role Phone KIERAN VO Primary Care Provider Unavailabl e Assessment No assessment recorded. Plan of Treatment Reminders Order Date Submit Date Provider Last Modified By Organization Details Last Modified Time Details Appointments OFFICE VISIT 20 2025 02:00P Anny VO PA-C Not available Not available Not available Lab CBC [address] [facility], [address] [facility] [address], [place], [address], 03/06/2025 08:07:27 BMP, serum or plasma [address] [facility], [address], [facility], [place], [address], 03/06/2025 08:07:27 Referral None recorded. Procedures None recorded. Surgeries None recorded. Imaging None recorded. Medication Orders atorvasta tin 40 mg tablet 2024 025 [facility]/Pharmacy #[id number], [address], [address], [place], [address], 02/13/2025 15:20:22 ranolazin e ER 500 mg tablet,ex tended release,1 2 hr 2024 025 [facility]/Pharmacy #[id number], [address], [address], [place], [address], 02/13/2025 15:20:22 furosemid e 40 mg tablet 2024 025 [id number], [address] [facility], [address], [place], [address], 02/13/2025 15:16:44 potassium chloride 40 mEq/15 mL oral liquid 2024 025 [id number], [address] [facility] [address], [place], [address], 02/13/2025 15:16:44 Patient TargetsNo targets recorded. Patient InstructionsNo instructions recorded. Reason for Referral None Reported. Results Created Date Observation Date Name Description Value Unit Range Abnormal Flag Note LastModifiedBy Organization Detail LastModifiedTime 03/23/2003/22/2025 XR, hand, 3 or more view No observ ation record ed. [facility] [address], [place], [address], 03/25/2025 12:54:51 Result Notes None recorded. Problems Name Problem SNOMED Code Status Onset Date Resolution Date Notes Provider Name and Address Organization Details Recorded Time Hand pain 54210730 Completed 202205/14/2024 [facility] Hand pain 17701834 Completed 202205/14/2024 [facility] 07:55:15 Low back pain 624682916 Completed 202305/14/2024 [facility] 18:20:21 Deep venous thrombosi s of lower extremity 893731973 Completed 202305/14/2024 at [facility] non occlusi ve. IVC placed due to no able to take blood thinner s. NICOLE gustafson, [facility] 5 07:54:08 Chronic pain 36434731 Active 2023 NICOLE CRANE null, [facility] 5 07:54:43 Hospital inpatient stay within past 30 days 95710553462 06 Completed 202305/14/2024 NICOLE CRANE null, [facility] 5 07:55:38 History of cervical spine fusion 83642537673 01 Completed 202305/14/2024 NICOLE CRANE null, [facility] 5 07:55:29 Hypothyro idism 56756275 Active 2023 NICOLE CRANE null, [facility] 5 07:55:43 Depressiv e disorder 11162340 Active 2023 NICOLE CRANE null, [facility] 5 07:54:53 Gastroeso phageal reflux disease without esophagit is 073749459 Active 2023 NICOLE CRANE null, [facility] 5 07:55:09 Anxiety 16288589 Active 2023 NICOLE CRANE null, [facility] 5 07:54:40 Rib pain 371839009 Completed 202305/14/2024 NICOLE CRANE null, [facility] 5 07:57:21 Nausea 092700825 Completed 202305/14/2024 NIOCLE HAEFFNER null, [facility] 5 07:55:56 Peptic ulcer 34919619 Completed 202305/14/2024 NICOLE HAEFFNER null, [facility] 5 07:57:13 Pain in bilateral legs 00745410240 539967 Completed 202305/14/2024 NICOLE HAEFFNER null, [facility] 5 07:56:52 Pain in left lower limb 586755811 Completed 202305/14/2024 NICOLE HAEFFNER null, [facility] 5 07:57:01 Acquired dilation of bile duct 08752695349 92158 Completed 202305/14/2024 NICOLE HAEFFNER null, [facility] 5 07:54:30 Deep venous thrombosi s 929842517 Completed 202305/14/2024 NICOLE HAEFFNER null, [facility] 5 07:54:50 Anemia 248774566 Active 2023 NICOLE HAEFFNER null, [facility] 5 07:54:37 Pain in right arm 441883795 Completed 202305/14/2024 NICOLE HAEFFNER null, [facility] 5 07:57:07 Right upper quadrant pain 678943257 Completed 202305/14/2024 NICOLE HAEFFNER null, [facility] 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 Procedures Surgical History Date Name Laterality Status Provider Name and Address Organization Details Recorded Time 2024 fluoroscopic angiography of coronary artery with contrast and insertion of stent completed NICOLE CRANE [facility] 5 18:02:58 2024 plain X-ray of chest completed PAULETTE JASON [facility], Job 5 00:10:[address] of abdomen and pelvis completed PAULETTE JASON [facility] 5 00:12:33 2023 insertion of arterial stent completed JER VO PA-C [address] [place], [address], [facility] 4 15:12:39 2023 colonoscopy completed KIERAN VO PA-C [address] [place], [address], [facility] 4 17:29:05 2023 esophagogastroduodenoscopy completed KIERAN VO PA-C [address] [place], [address], [facility] 4 17:08:01 2023 ultrasonography of liver completed NICOLE CRANE [facility] 4 16:43:05 2023 primary posterior decompression cervical cord and fusion completed KIERAN VO PA-C [address] [place], [address], [facility] 4 13:58:12 2023 insertion of inferior vena caval filter completed KIERAN VO PA-C [address] [place], [address], [facility] 4 13:58:28 2022 primary fusion of cervical spine completed KIERAN VO PA-C [address] [place], [address], [facility] 3 12:50:26 Imaging Results None recorded. Procedure Notes None recorded. Medical Equipment None Reported. Allergies Allergen ID Allergen Name Allergen Category Reaction Reaction Severity Criticality Documentation Date Start Date Code Code System Note Provider Name and Address Organization Details Recorded Time 74677 Benadryl medicatio n Not available Not available Not available 03/12/2023 71771 7 RxNorm NICOLE gustafson, [facility] 3 12:01:01 05019 amitripty line medicatio n Not available Not available Not available 03/12/2023 704 RxNorm [facility]ICOLE [facility], [facility] 3 12:01:37 22049 tizanidin e medicatio n Not available Not available Not available 03/12/2023 87688 RxNorm [facility]LE DEJESUSEDD [facility], [facility] 3 12:08:21 98915 morphine medicatio n confusion Not available [facility] 09/02/2023 7052 RxNorm KIERAN VO PA-C [address] [place], [address] , [facility] 4 15:15:03 65230 venlafaxi ne medicatio n itching Not available Not available 02/13/2025 73704 RxNorm NICOLE DEJESUSEDD [facility] 5 14:50:24 35130 ibuprofen medicatio n Not available Not available [facility] 02/23/2025 5640 RxNorm Not Available wanda - External Data Service - prod 5 09:45:37 35974 acetamino phen medicatio n Not available Not available [facility] 02/23/2025 161 RxNorm Not Available [facility] External Data Service - prod 5 09:45:37 18172 prochlorp erazine medicatio n Not available Not available [facility] 02/23/2025 8704 RxNorm Not Available [facility] External Data Service - prod 5 09:45:37 81828 diphenhyd ramine medicatio n Not available Not available [facility] 02/23/2025 3498 RxNorm unrec ogniz ed react ion (text : Hyper activ e behav ior (find ing), code: [id number]) (from [facility]) Not Available [facility] External Data Service - [facility] 5 09:45:37 27589 leflunomi de medicatio n Not available Not available [facility] 02/23/20252024 38426 RxNorm Not Available [facility] External Data Service - [facility] 5 09:45:40 55409 sulfasala zine medicatio n Not available Not available [facility] 02/23/20252024 9524 RxNorm Not Available [facility] External Data Service - [facility] 5 09:45:40 58179 metoclopr amide Not available Not available Not available Not available 03/12/2025 6915 RxNorm Not Available [facility] External Data Service - [facility] 5 15:33:31 70504 sumatript an medicatio n Not available Not available Not available 03/15/2025 36931 RxNorm Not Available [facility] External Data Service - [facility] 5 07:31:55 Medications Name Sig Start Date Stop Date Status Note LastModified by Organization Details LastModified Time Prescripti on - Renewal 03/22 completed Not Available Not Available Not Available fluoxetine 40 mg capsule TAKE 1 CAPSULE [...] completed Not Available Not Available Not Available metolazone 5 mg tablet TAKE 1 TABLET EVERY DAY BY MOUTH FOR 3 DAYS, TAKE 30 MIN BEFORE LASIX.. active Not Available Not Available No t Available permethrin 5 % topical cream THOROUGHL Y MASSAGE INTO SKIN FROM HEAD TO FOOT SOLES ONCE&LEAV E FOR 8-14 HOURS THEN THOROUGHL Y WASH active Not Available Not Available No t Available [facility] 12.5 mg tablet Take 1 tablet 3 times a day by oral route as needed. 03/22 completed Not Available Not Available Not Available [...] APPLY THIN COAT TO AFFECTED AREA TWICE A DAY active [...] Available Not Available tamsulosin 0.4 mg capsule Take 1 capsule every day by oral route. 2024 active Not Available Not Available Not Avai lable furosemide 80 mg tablet TAKE 1 TABLET BY MOUTH EVERY DAY 12/26 completed Not Available Not Available Not Available dicyclomin e 20 mg tablet TAKE 1 TABLET BY MOUTH THREE TIMES DAILY NEEDED FOR PAIN 04/15 completed Not Available Not Available Not Available betamethas one valerate 0.1 % topical cream APPLY A THIN LAYER TO THE AFFECTED AREA(S) BY TOPICAL ROUTE ONCE DAILY 03/22 completed Not Available Not Available Not Available baclofen 10 mg tablet TAKE 1 [...] 4 HOURS NEEDED FOR NAUSEA OR VOMITING 03/22 completed Not Available Not Available Not Available brimonidin e 0.2 % eye drops active Not Available Not Available No t Available BD Luer-Eloise Syringe 3 mL 25 gauge x 1 DIRECTED 12/26 completed Not Available Not Available Not Available fluoxetine 10 mg capsule Take 1 capsule every day by oral route for 30 days. 2024 active Not Available Not Available Not Avai lable nitroglyce rin 0.4 mg sublingual tablet DISSOLVE [...] day by oral route for 90 days. 03/22 completed Not Available Not Available Not Available amoxicilli n 875 mg-potassi um clavulanat e 125 mg tablet TAKE 1 TABLET BY MOUTH TWICE A DAY FOR 3 DAYS 03/15 completed Not Available Not Available Not Available [...] Last Updated DateTime 163.83 cm 25.2 kg/m2 09602.2 6 g 96 % 78 /min 20 /min 98 [degF] 130/80 mm[Hg] NICOLE CRANE [facility] 14:41:35 Social History Question Answer Notes LastModified by [email or web address] ion Details LastModified Time Tobacco Smoking Status Former Smoker Irene gustafson [facility] 09/05/2023 15:56:32 Which Illicit Or Recreational Drugs Have You Used? Leilani [email or web address] Information not available 11/02/2024 What Was The Date Of Your Most Recent Tobacco Screening? 03/22/2025 [email or web address] Information not available 03/22/2025 At What Age Did You Start Smoking Tobacco? 49 For 3 Weeks Only [email or web address] Information not available 11/02/2024 Sex: Unknown Functional Status Question Answer Note LastModified by Organizat ion Details LastModified Time Do you use any illicit or recreational drugs? Yes [email or web address] Information not available 11/02/2024 What is your level of alcohol consumption? None [email or web address] Information not available 11/02/2024 Mental Status None recorded. Family History Nothing Reported. Medical History No medical history recorded. Gynecological HistoryNo gynecological history recorded. Obstetrics History GPAL:G 0 P 0 0 0 0 Immunizations Vaccine Type Date Status Note Provider Nam e and Address Organization Details Recorded Time COVID-19, mRNA, LNP-S, PF, errol-sucrose, 30 mcg/0.3 mL 4 completed [facility], [facility] 11/12/2023 15:11:33 Influenza, split virus, trivalent, PF 4 completed Not Available [facility] 03/15/2025 14:19:55 Influenza, adjuvanted, trivalent, PF 5 completed Not Available [facility] 03/15/2025 14:19:55 Pneumococcal conjugate PCV20, polysaccharide QAL168 conjugate, adjuvant, PF 5 completed NICOLE gustafson, [facility] 05/24/2024 16:17:51 Past Encounters Encounter ID Performer Location Encounter Start Date Encounter Closed Date Diagnosis/Indication Diagnosis SNOMED-CT Code Diagnosis ICD10 Code Diagnosis IMO Codes Diagnosis Note [id number] KIERAN VO PA-C [facility] ([facility]) [address] [place] [address] 02/13/2025 14:26:45 02/13/2025 15:27:07 Edema 605805297 R60.9 Upper gastrointestinal bleeding 81629958 K92.2 002033 scope 03/[address] Ruiz. Scope 01/05/25 at [facility] small area of bleeding. needs plavix and ASA due to stent on 12/27/24 Stented co ronary artery 972712390 I25.10 Z95.5 94121994 Health Concerns Section Related Observation LastModified by Organization Detai ls LastModified Time None Recorded Concern Status LastModified by Organization Details LastModified Time None Recorded Payers Encounter Date Sequence Insurance Name Policy Number Policy Rivera Covered Member ID Rivera Member ID Guarantor Name 02/13/2025 1 MEDICARE [place]: [employer] Tosha Perry [id number] Tosha Perry 02/13/2025 2 [facility] ([facility]IC[facility] SUPPLEMENT) Tosha Perry [id number] Tosha Perry Notes Date Note Type Note [...] her GI doc. 10.28 KIERAN VO PA-C [address] [place] [address], [address], [facility], Job 02/13/2025 15:25:18 OBGyn Episode No OBEpisode recorded.
--- NOTE | 2025-03-27 05:12 | ECG_ITS ---
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 Measurements Intervals [place] Rate: 69 P: 58 GA: 179 QRS: 19 QRSD: 91 T: 41 QT: 333 QTc: 359 Interpretive Statements SINUS RHYTHM LOW QRS VOLTAGE IN PRECORDIAL LEADS [QRS DEFLECTION < 1.0 mV IN CHEST LEADS] NONSPECIFIC T-WAVE ABNORMALITY Compared to ECG 03/15/2025 08:39:41 Low QRS voltage now present T-wave abnormality now present Atrial-paced complex(es) or rhythm no longer present Myocardial infarct finding no longer present Electronically Signed On 03-27-2025 21:24:19 CAR DROPPER by Sherine Greene M.D. [email or web address]
--- OUTSIDE RECORDS SUMMARY | 2025-03-27 05:12 | XMS_ITS | Data Portability ---
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 Plan of Treatment Reminders Order Date Submit Date Provider Last Modified By Organization Details Last Modified Time Details Appointments OFFICE VISIT 20 2025 02:00P Anny GARCIA PA-C Not available Not available Not available Lab CBC 2024 025 [email or web address] [facility], [address], [place], [address], 03/06/2025 08:07:27 BMP, serum or plasma 2024 025 [email or web address] [facility], [address], [place], [address], 03/06/2025 08:07:27 BMP, serum or plasma 2024 025 [email or web address], [address], [place], [address], 12/11/2024 15:14:32 CBC 2024 025 [email or web address] [facility], [address], [place], [address], 12/11/2024 15:14:32 Referral physical therapist referral 2024 [email or web address] [facility], [address], [place], [address], 12/06/2024 15:40:29 physical therapist referral [address], [address] [place], [address], 01/02/2025 15:03:25 Procedures None recorded. Surgeries None recorded. Imaging MRI, cervical spine, w/o contrast 2024 [facility], [address] [place], [address], 03/26/2025 15:10:41 Medication Orders fluoxetin e 10 mg capsule 2024 [facility] #[id number], [address] [facility], [facility] [address], [address], 03/15/2025 15:23:47 atorvasta tin 40 mg tablet 2024 [id number], [address] [facility], [facility] [address], [address], 02/13/2025 15:20:22 ranolazin e ER 500 mg tablet,ex tended release,1 2 hr 2024 [facility]/Pharmacy #[id number], [address], [facility] [address], [place], [address], 02/13/2025 15:20:22 furosemid e 40 mg tablet 2024 [facility]armacy #[id number], [address], [facility] [address], [address], 02/13/2025 15:16:44 potassium chloride 40 mEq/15 mL oral liquid 2024 025 [id number], [address], [place], [address], 02/13/2025 15:16:44 gabapenti n 300 mg capsule 2024 [address]25 [id number], [address], [address], [place], [address], 12/01/2024 09:30:07 ramelteon 8 mg tablet 2024 025 [id number], [address], [address], [place], [address], 12/01/2024 09:30:10 promethaz ine 25 mg tablet 2024 025 [id number], [address], [address], [place], [address], 03/22/2025 16:12:11 folic acid 1 mg tablet 2024 025 [id number], [address], [address], [place], [address], 12/01/2024 09:30:09 pantopraz ole 40 mg tablet,de layed release 2024 025 [id number], [address], [address], [place], [address], 12/01/2024 09:30:07 Patient TargetsNo targets recorded. Patient InstructionsNo instructions recorded. Reason for Referral Physical Therapist Referral for Lymphedema Referring Physician: [facility], Encounter Date: 12/01/2024 Physical Therapist Referral for Chronic neck pain Referring Physician: [facility], Encounter Date: 12/01/2024 Results Created Date Observation Date Name Description Value Unit Range Abnormal Flag Note LastModifiedBy Organization Detail LastModifiedTime 03/23/20 25 03/22/2025 XR, hand, 3 or more view No observ ation record ed. [facility], [place] [address] [place], [address], 03/25/2025 12:54:51 Result Notes None recorded. Problems Name Problem SNOMED Code Status Onset Date Resolution Date Notes Provider Name and Address Organization Details Recorded Time Hand pain 99428265 Completed 202205/14/2024 NICOLE gustafson [facility] 5 07:55:21 Hand pain 79870862 Completed 202205/14/2024 NICOLE gustafson [facility] 5 07:55:15 Low back pain 925771955 Completed 202305/14/2024 NICOLE gustafson [facility] 5 18:20:21 Deep venous thrombosi s of lower extremity 848453241 Completed 202305/14/2024 at [facility] non occlusi ve. IVC placed due to no able to take blood thinner s. NICOLE gustafson [facility] 5 07:54:08 Chronic pain 54402403 Active 2023 NICOLE gustafson [facility] 5 07:54:43 Hospital inpatient stay within past 30 days 00405951401 06 Completed 202305/14/2024 NICOLE gustafson [facility] 5 07:55:38 History of cervical spine fusion 87670401655 Completed 202305/14/2024 NICOLE gustafson [facility] 5 07:55:29 Hypothyro idism 34179499 Active 2023 NICOLE HALESLYFEDD null, [facility] 5 07:55:43 Depressiv e disorder 67464916 Active 2023 NICOLE HAEFFNER null, [facility] 5 07:54:53 Gastroeso phageal reflux disease without esophagit is 712610203 Active 2023 NICOLE HAEFFNER null, [facility] 5 07:55:09 Anxiety 45614868 Active 2023 NICOLE HAEFFNER null, [facility] 5 07:54:40 Rib pain 167114958 Completed 202305/14/2024 NICOLE HAEFFNER null, [facility] 5 07:57:21 Nausea 305133938 Completed 202305/14/2024 [facility] 07:55:56 Peptic ulcer 32398979 Completed 202305/14/2024 NICOLE HAEFFNER null, [facility] 5 07:57:13 Pain in bilateral legs 11100330534 956540 Completed 202305/14/2024 NICOLE HAEFFNER null, [facility] 5 07:56:52 Pain in left lower limb 202562884 Completed 202305/14/2024 [facility] 07:57:01 Acquired dilation of bile duct 17753482140 35764 Completed 202305/14/2024 NICOLE HAEFFEDD null, [facility] 5 07:54:30 Deep venous thrombosi s 777346245 Completed 202305/14/2024 NICOLE HAEFFNER null, [facility] 5 07:54:50 Anemia 368506963 Active 2023 NICOLE HAEFFNER null, [facility] 5 07:54:37 Pain in right arm 005689718 Completed 202305/14/2024 NICOLE HALESLYFEDD null, [facility] 5 07:57:07 Right upper quadrant pain 104825739 Completed 202305/14/2024 NICOLE HAEFFNER null, [facility] 5 07:57:36 Nausea and vomiting 83889781 Completed 202305/14/2024 NICOLE HAEFFNER null, [facility] 5 07:56:02 Edema 791260525 Completed 202305/14/2024 NICOLE HADENISE null, [facility] 5 07:54:58 Rheumatoi d arthritis 60619742 Active 2024 NICOLE HAEFFNER null, [facility] 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 5 08:05:04 Low back pain 156418619 Active 2024 NICOLE HAEFFNER null, [facility] 5 18:20:21 Restless legs syndrome 12680611 Active 2024 NICOLE gustafson [facility] 5 18:20:23 Chronic insomnia 376052896 Active 2024 NICOLE gustafson [facility] 5 18:31:19 Retention of urine 589130586 Active 2024 NICOLE CRANE [facility] 14:49:35 Problem Notes None recorded. Procedures Surgical History Date Name Laterality Status Provider Name and Address Organization Details Recorded Time 2024 fluoroscopic angiography of coronary artery with contrast and insertion of stent completed NICOLE CRANE [facility] 5 18:02:58 2024 plain X-ray of chest completed PAULETTE JASON [facility] 5 00:10:[address] of abdomen and pelvis completed PAULETTE JASON [facility] 5 00:12:33 2023 insertion of arterial stent completed JER GARCIA PA-C [address] [place], [address], [facility] 4 15:12:39 2023 colonoscopy completed DIANA GARCIA PA-C [address] [place], [address], [facility] 4 17:29:05 2023 esophagogastroduodenoscopy completed DIANA GARCIA PA-C [address] [place], [address], [facility] 4 17:08:01 2023 ultrasonography of liver completed NICOLE CRANE [facility] 4 16:43:05 2023 primary posterior decompression cervical cord and fusion completed DIANA GARCIA PA-C [address] [place], [address], [facility] 4 13:58:12 2023 insertion of inferior vena caval filter completed DIANA GARCIA PA-C [address] [place], [address], [facility] 4 13:58:28 2022 primary fusion of cervical spine completed DIANA GARCIA PA-C [address] [place], [address], [facility] 3 12:50:26 Imaging Results None recorded. Procedure Notes None recorded. Medical Equipment None Reported. Allergies Allergen ID Allergen Name Allergen Category Reaction Reaction Severity Criticality Documentation Date Start Date Code Code System Note Provider Name and Address Organization Details Recorded Time 60988 Benadryl medicatio n Not available Not available Not available 03/12/2023 36578 7 RxNorm NICOLE gustafson [facility] 3 12:01:01 62892 amitripty line medicatio n Not available Not available Not available 03/12/2023 704 RxNorm NICOLE gustafson [facility] 3 12:01:37 39334 tizanidin e medicatio n Not available Not available Not available 03/12/2023 52979 RxNorm NICOLE gustafson [facility] 3 12:08:21 23658 morphine medicatio n confusion Not available [facility] 09/02/2023 7052 RxNorm DIANA GARCIA PA-C [address] [place], [address], [facility] 4 15:15:03 07761 venlafaxi ne medicatio n itching Not available Not available 02/13/2025 04884 RxNorm NICOLE SRIDHARDENISE [facility] 5 14:50:24 60215 ibuprofen medicatio n Not available Not available [facility] 02/23/2025 5640 RxNorm Not Available wanda - External Data Service - prod 5 09:45:37 36589 acetamino phen medicatio n Not available Not [facility] 02/23/2025 161 RxNorm Not Available wanda - External Data Service - prod 5 09:45:37 44074 prochlorp erazine medicatio n Not available Not available [facility] 02/23/2025 8704 RxNorm Not Available wanda - External Data Service - prod 5 09:45:37 55546 diphenhyd ramine medicatio n Not available Not available unabletoasse 02/23/2025 3498 RxNorm unrec ogniz ed react ion (text : Hyper activ e behav ior (find ing), code: 91232 000) ([facility]) Not Available wanda - External Data Service - prod 5 09:45:37 54375 leflunomi de medicatio n Not available Not available [facility] 02/23/20252024 74588 RxNorm Not Available wanda - External Data Service - prod 5 09:45:40 48261 sulfasala zine medicatio n Not available Not available [facility] 02/23/20252024 9524 RxNorm Not Available wanda - External Data Service - prod 5 09:45:40 36113 metoclopr amide Not available Not available Not available Not available 03/12/2025 6915 RxNorm Not Available wanda - External Data Service - prod 5 15:33:31 50801 sumatript an medicatio n Not available Not available Not available 03/15/2025 42859 RxNorm Not Available [facility] External Data Service - prod 5 07:31:55 Medications Name Sig Start Date [...] Not Available Not Available No t Available meclizine 12.5 mg tablet Take 1 [...] and Address Organization Details Last Updated DateTime 08/22/202 5 163.83 cm 24.5 kg/m2 95232.8 9 g 95 % 80 /min 18 /min 97 [degF] 126/80 mm[Hg] [facility] 5 08:55:39 Date Recorded Body height Body mass index (BMI) Body weight Oxygen saturation Heart rate Respiratory rate Body temperature Systolic And Diastolic Provider Name and Address Organization Details Last Updated DateTime 5 163.83 cm 23.5 kg/m2 27021.3 4 g 95 % 70 /min 18 /min 97.9 [degF] 120/70 mm[Hg] [facility] 5 14:19:08 Date Recorded Body height Body mass index (BMI) Body weight Oxygen saturation Heart rate Respiratory rate Body temperature Systolic And Diastolic Provider Name and Address Organization Details Last Updated DateTime 5 163.83 cm 25.2 kg/m2 38706.2 6 g 96 % 78 /min 20 /min 98 [degF] 130/80 mm[Hg] [facility] 5 14:41:35 Date Recorded Body height Body mass index (BMI) Body weight Oxygen saturation Heart rate Respiratory rate Body temperature Systolic And Diastolic Provider Name and Address Organization Details Last Updated DateTime 5 163.83 cm 24.3 kg/m2 89041.3 g 98 % 72 /min 18 /min 98 [degF] 136/80 mm[Hg] NICOLE [facility] 5 14:34:09 Date Recorded Body height Body mass index (BMI) Body weight Oxygen saturation Heart rate Body temperature Systolic And Diastolic Provider Name and Address Organization Details Last Updated DateTime 5 163.83 cm 25.2 kg/m2 82413.2 6 g 98 % 75 /min 98.6 [degF] 146/70 mm[Hg] Paulette Alvares [facility] 5 16:14:48 Social History Question Answer Notes LastModified by Organizat ion Details LastModified Time Tobacco Smoking Status Former Smoker rIene Naylor janay [facility] 09/05/2023 15:56:32 Which Illicit Or Recreational Drugs Have You Used? Leilani [email or web address] Information not available 11/02/2024 What Was The Date Of Your Most Recent Tobacco Screening? 03/22/2025 [email or web address] Information not available 03/22/2025 At What Age Did You Start Smoking Tobacco? 49 For 3 Weeks Only [email or web address] Information not available 11/02/2024 Sex: Unknown Functional Status Question Answer Note LastModified by Organizat ion Details LastModified Time Do you use any illicit or recreational drugs? Yes [email or web address] Information not available 11/02/2024 What is your level of alcohol consumption? None [email or web address] Information not available 11/02/2024 Mental Status None recorded. Family History Nothing Reported. Medical History No medical history recorded. Gynecological HistoryNo gynecological history recorded. Obstetrics History GPAL:G 0 P 0 0 0 0 Immunizations Vaccine Type Date Status Note Provider Nam e and Address Organization Details Recorded Time COVID-19, mRNA, LNP-S, PF, errol-sucrose, 30 mcg/0.3 mL 4 completed Gracie gutsafson [facility] 11/12/2023 15:11:33 Influenza, split virus, trivalent, PF 4 completed Not Available [facility] 03/15/2025 14:19:55 Influenza, adjuvanted, trivalent, PF 5 completed Not Available [facility] 03/15/2025 14:19:55 Pneumococcal conjugate PCV20, polysaccharide OYS802 conjugate, adjuvant, PF 5 completed NICOLE gustafson [facility] 05/24/2024 16:17:51 Past Encounters Encounter ID Performer Location Encounter Start Date Encounter Closed Date Diagnosis/Indication Diagnosis SNOMED-CT Code Diagnosis ICD10 Code Diagnosis IMO Codes Diagnosis Note [id number] DIANA GARCIA PA-C [facility] ([facility]) [address] [place] [address] 03/12/2023 11:51:10 03/15/2023 10:06:45 Pain of right hand 5563518969 94154 M79.641 Ganglion c yst of right wrist 2578041663 78209 M67.431 Acute urin albert tract infection 440486984 N39.0 Cervical spondylosis 387 501918 M47.812 C3/[address] Hung Feb 01 Chronic low back pain 27 8405297 M54.50 Gallstone pancreatitis 04143465 K85.10 Has enlarge CBD on CT 14.5 mm. GB is absent Administra tion of viral vaccine 60529738 Z23 Rheumatoid arthritis [address] Crabtree CCA form filled out during today's office visit [id number] DIANA GARCIA PA-C [facility] ([facility]) [address] [place] [address] 04/15/2023 14:41:58 04/15/2023 16:52:11 Neuropathy 209403786 G62.9 Candidiasis of mouth 797 85845 B37.0 will tx with oral meds with suspiscion she may have some esophageal candidiasi s. Nausea and vomiting 1693 1999 R11.2 Iron defic iency anemia 67133597 D50.9 Hypothyroidism 56054409 E03.9 Rheumatoid arthritis [address] Crabtree CCA form filled out during today's office visit Low back pain 377472331 M54.50 [id number] DIANA GARCIA PA-C [facility] ([facility]) [address] [place] [address] 05/19/2023 13:23:55 05/25/2023 12:39:49 History of cervical spine fusion 0394091167 101 Z98.1 2.2.24 Posterior C2-T1 with Dr. Hnug (3 neck surgeries in total) Upper gastrointestinal bleeding 43426109 K92.89 scope 03/[address] Ruiz. Deep venou s thrombosis 582131437 I82.409 found 2.2.24 not a candidate for anticoat due to recent GI bleed so IVC placed. Generalize d anxiety disorder 43140304 F41.1 monitor Benzo requests. Has several rxes xanax, valium and clonazepam from [facility], Dr. Anabell house, and Dr. Gomes saw in SNF. Chronic pain syndrome 37 9384354 G89.4 Oxcontin 7.[address] Lisa. Recently increased to 10mg q 4 hrs from recent surgery. (temporary rx for [place] given waiting for Oxy to come in then d/margaret 2.8.24 KM) Anemia 049770800 D64.9 cbc, cmp on Wednesday [id number] Srinivasan Gomes DO [facility] ([facility]) [address] [place], [place] [address] 05/25/2023 08:03:34 05/31/2023 12:19:42 Hospital inpatient stay within past 30 days 2385102619 106 Z76.89 History of cervical spine fusion 2879823828 101 Z98.1 Hypothyroidism 68414790 E03.9 Chronic pain 96776405 G8 9.29 Depressive disorder 3548 9007 F32.A Gastroesop hageal reflux disease without esophagitis 243847601 K21.9 [id number] Srinivasan Gomes DO [facility] ([facility]) [address] [place], [place] [address] 06/01/2023 09:36:24 06/09/2023 06:46:40 Anxiety 91271703 F41.9 Chronic pain 78628883 G8 9.29 History of cervical spine fusion 5962928419 101 Z98.1 [id number] Srinivasan Gomes DO [facility]) [address] [place], [place] [address] 06/08/2023 08:37:13 06/10/2023 16:36:08 History of cervical spine fusion 5960799847 101 Z98.1 Anxiety 71174395 F41.9 Chronic pain 57564542 G8 9.29 Depressive disorder 3548 9007 F32.A [id number] Srinivasan Gomes [facility] ([facility]) [address] [place], [place] [address] 06/15/2023 09:21:43 06/28/2023 15:09:18 History of cervical spine fusion 3159596526 101 Z98.1 Low back pain 730151868 M54.50 Depressive disorder 3548 9007 F32.A [id number] Ulysses Rivera MD [facility] ([facility]) [address] [place] [address] 06/24/2023 12:59:38 06/27/2023 18:03:54 Anxiety 90552549 F41.9 Refill provided for medication . Rib pain 665296858 R07.8 1 Patient has pain along her [...] over the next 4 to 8 weeks. [id number] DIANA GARCIA PA-C [facility] ([facility]) [address] [place] [address] 07/02/2023 09:48:49 07/02/2023 10:43:55 Spinal stenosis in cervical region 36011078 M48.02 Hospital i npatient stay within past 30 days 5780463313 106 Z76.89 Generalize d anxiety disorder 35116905 F41.1 monitor Benzo requests. Has several rxes xanax, valium and clonazepam from [facility] P[facility], Dr. Anabell house, and Dr. Gomes saw in SNF. Opioid dependence 028502 00 F11.20 post cervical surgery 06/05. Getting in to Dr. Hung. [id number] DIANA GARCIA PA-C [facility] ([facility]) [address] [place] [address] 08/03/2023 15:31:05 08/07/2023 08:56:13 Peptic ulcer 50612458 K27.9 EGD 11.1.23 neg H.pylori then Deep venou s thrombosis 849214514 I82.409 found 2.2.24 not a candidate for anticoat due to recent GI bleed so IVC placed. Abdominal pain 97231837 R10.9 Anemia 474056509 D64.9 Chronic pain 75680044 G8 9.29 dose drops from 600 to 300 to see if helps with her nausea [id number] DIANA GARCIA PA-C [facility] ([facility]) [address] [place] [address] 09/02/2023 14:20:34 09/02/2023 17:34:26 Abdominal pain 53193200 R10.9 since pt is in the worst pain of her life I recommend she go to ER to get work up of her abd pain and get pain control for her chronic cervical stenosis with recent surgery that so far has not been helpful. 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 10112255 M48.02 [id number] MALIK BRUSH [facility] ([facility]) [address] [place] [address] 09/05/2023 15:44:16 09/06/2023 13:27:43 Middle ear effusion 9363091155 H74.8X9 Discussed use of antibiotic the full 7 days. May take tylenol/mo rima for discomfort .Return if you develop worsening pain, drainage from the ear or concerns arise. Vertigo 506413918 R42 [id number] DIANA GARCIA PA-C [facility] ([facility]) [address] [place] [address] 09/20/2023 11:54:13 09/20/2023 16:12:14 [id number] Williams Valerio DO [facility] ([facility]) [address] [place] [address] 09/20/2023 12:40:32 09/20/2023 13:56:13 Anxiety 58404684 F41.9 Acute sero us otitis media of bilateral ears 1558469278 708155 H65.03 [id number] DIANA GARCIA PA-C [facility] ([facility]) [address] [place] [address] 09/22/2023 11:55:06 09/23/2023 12:29:54 [id number] Srinivasan Gomes DO [facility] ([facility]) [address] [place] [address] 10/05/2023 08:21:33 10/06/2023 08:39:15 [id number] DIANA GARCIA PA-C [facility] ([facility]) [address] [place] [address] 10/06/2023 12:17:06 10/20/2023 08:37:19 Pain in right arm 837913379 M79.[address] HENRY, [facility] , Anemia 499025847 D64.9 HEMOCCULT x3 due to persistant anemia. GI appt TOMORROW in [facility] Right uppe r quadrant pain 017356756 R10.11 [id number] CLAIRE KILLIAN APRN [facility] ([facility]) [address] [place] [address] 10/09/2023 14:01:50 10/09/2023 14:43:26 Dysuria 79722130 R30.0 Acute urin albert tract infection 231820906 N39.0 [id number] DIANA GARCIA PA-C [facility] ([facility]) [address] [place] [address] 10/13/2023 14:26:50 11/02/2023 17:06:17 Nausea and vomiting 47603256 R11.2 will see what GI finds on scopes Anemia 173824423 D64.9 INJECTIFER 750MG X 2, Acute urin albert tract infection 876141998 N39.0 MACROBID 100MG BID [id number] DIANA GARCIA PA-C [facility] ([facility]) [address] [place] [address] 10/20/2023 11:55:15 10/20/2023 14:08:06 Low back pain 903680521 M54.50 d/c to home with current meds and out pt ordersF/U with me in office next week. Constipation 88456393 K5 9.00 Obstructio n of common bile duct 791185185 K83.1 thickening of CMB no CT and U/S. intermitan t emesis with white stools. [id number] DIANA GARCIA PA-C [facility] [facility] [address] [place] [address] [phone] 5 10/26/2023 15:17:52 10/26/2023 17:51:16 Peripheral arterial occlusive disease 092376023 I73.9 Left common femoral artery occluded on CT scan with MADONNA .7 on the LeftHas an IVC filter in place.Toda y no evidence of critical limb ischemia. To ER if increased pain/numbn ess in leg, change in temperatur e or color Deep venou s thrombosis of lower extremity 347673214 I82.409 thrombus in R common femoral vein . IVC filter in place. Pt with recent GI bleed.Not able to anticoagul ate at this time. Iron defic iency anemia 89814564 D50.9 INJECTIFER 750MG X 2 doses 7 days apart.Hgb 8.3 at [facility] 7. recent EGD/colono scopy 10.22.23 with lavern Blanchard. Acute gastrointestinal hemorrhage 14179353 K92.2 cauterizat ion in small intestine on last EGD? per waiting on notes. Chronic pain 28559012 G8 9.29 Chronic neck pain 380840 0426 107 M54.2 Hospital i npatient stay within past 30 days 2939002383 106 Z76.89 meds reconciled . non changed today last ER [facility] and she is to fax us her records and we are to fax her last CT, U/S liver and labs. [id number] DIANA GARCIA PA-C [facility] ([facility]) [address] [place] [address] [phone] 5 11/03/2023 14:57:45 11/03/2023 17:25:44 Iron deficiency anemia 94173258 D50.9 INJECTIFER 750MG X 2 doses 7 days apart.Hgb 8.3 at [facility] 10.24.23. recent EGD/colono scopy 10.22.23 with lavern Blanchard. Dysuria 65669386 R30.0 Tinnitus o f vascular origin 867334958 H93.A9 Deep venou s thrombosis of lower extremity 257099218 I82.409 thrombus in R common femoral vein . IVC filter in place. Pt with recent GI bleed.Not able to anticoagul ate at this time. Peripheral arterial occlusive disease 648302848 I73.9 Left common femoral artery occluded on CT scan with MADONNA .7 on the LeftHas an IVC filter in place.Toda y no evidence of critical limb ischemia. To ER if increased pain/numbn ess in leg, change in temperatur e or color [id number] DIANA GARCIA PA-C [facility] ([facility]) [address] [place] [address] [phone] 5 11/09/2023 13:55:02 12/14/2023 07:04:25 Acquired cystic dilatation of common bile duct 617880249 K83.5 Iron defic iency anemia 05604635 D50.9 Set up for injectafer on for first dose.Hgb 8.3 at [facility] 10.24.23. recent EGD/colono scopy 10.22.23 with lavern Blanchard. [id number] DIANA GARCIA PA-C [facility] ([facility]) [address] [place] [address] [phone] 5 11/10/2023 12:49:56 11/10/2023 17:31:37 [id number] DIANA GARCIA PA-C [facility] ([facility]) [address] [place] [address] [phone] 5 11/25/2023 14:58:08 12/14/2023 07:10:16 Deep venous thrombosis of lower extremity 256429450 I82.409 thrombus in R common femoral vein . IVC filter in place. Pt with recent GI bleed Hgb are rising.I will have her to a hemoccult card. If Hgb going up and hemoccult Neg I think if ok with vascular, it would be time to try anticoagul ation with close monitoring of cbcs Iron defic iency anemia 58227784 D50.9 Set up for injectafer Hgb 8.3 at [facility] 24. recent EGD/colono scopy 10.22.23 with lavern Blanchard. [id number] DIANA GARCIA PA-C [facility] ([facility]) [address] [place] [address] 74764-293 5 12/14/2023 15:13:11 12/14/2023 17:27:18 Anemia 953670219 D64.9 Had one iron infusion needs to schedule her next one. Deep venou s thrombosis 646791324 I82.409 started Eliquis 8.24 Restless l egs syndrome 48697587 G25.81 Hypothyroidism 66272260 E03.9 [id number] DIANA GARCIA PA-C [facility] ([facility]) [address] [place] [address] [phone] 5 01/11/2024 11:50:16 01/17/2024 09:34:21 Cervical radiculitis 64821716 M54.12 Pain of ri ght shoulder joint 9250294189 1356101 M25.511 Peripheral vascular disease 329676445 I73.9 Dr. Dawn moreno managing her arterial disease on the L leg, her chronic DVT on the R leg and her richelle filter.105.05 he still wants her on low dose Eliquis Iron defic iency anemia 02378983 D50.9 Her injectafer is helping Last HGb 10.3 at [facility] 01/06/24.re cent EGD/colono scopy 10.22.23 with lavern Blanchard. fixed upper GI bleed. Repeat eGD 2 months later was resolved. Hospital i npatient stay within past 30 days 1728758577 106 Z76.89 meds reconciled . her eliquis was restarted. [id number] Ulysses Rivera MD [facility] ([facility]) [address] [place] [address] [phone] 5 01/20/2024 16:13:53 01/20/2024 16:54:14 [id number] DIANA GARCIA PA-C [facility] ([facility]) [address] [place], [place] [phone] 5 02/08/2024 14:21:48 02/08/2024 15:38:37 Hematemesis 2979528 K92.0 Peripheral vascular disease 706058983 I73.9 Dr. Dawn moreno managing her arterial disease on the L leg, her chronic DVT on the R leg and her richelle filter.keron faith stented her L left. check right leg. no clots. left filter in place and wants her on the Eliquis. Pneumonia 638170338 J18. 9 Hospital i npatient stay within past 30 days 0982557050 106 Z76.89 meds reconciled . her eliquis was restarted. Iron defic iency anemia 52611961 D50.9 Her injectafer is helping Last HGb 10.3 at [facility] 01/06/24.re cent EGD/colono scopy 10.22.23 with lavern Blanchard. fixed upper GI bleed. Repeat eGD 2 months later was resolved. [id number] DIANA GARCIA PA-C [facility] ([facility]) [address] [place] [address] [phone] 5 03/14/2024 12:48:46 04/04/2024 12:28:10 Anemia 902909480 D64.9 Had one iron infusion needs to schedule her next one. Acquired d ilation of bile duct 7394666509 128418 K83.8 Peripheral vascular disease 650292975 I73.9 Dr. Dawn moreno managing her arterial disease on the L leg, her chronic DVT on the R leg and her richelle filter.keron faith stented her L left. check right leg. no clots. left filter in place and wants her on the Eliquis. 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 38269588 M48.02 [id number] DIANA GARCIA PA-C [facility] ([facility]) [address] [place] [address] [phone] 5 04/11/2024 11:03:08 04/13/2024 12:31:09 Stasis dermatitis of lower limb due to chronic peripheral venous hypertension 946464656 I87.399 Drug-induc ed constipation 76124345 K59.03 Edema 463004722 R60.9 Idiopathic peripheral neuropathy 55839520 G60.9 Hypothyroidism 83528849 E03.9 [id number] DIANA GARCIA PA-C [facility] ([facility]) [address] [place] [address] [phone] 5 04/19/2024 14:34:02 04/24/2024 09:23:08 Obstruction of common bile duct 625681742 K83.1 thickening of CMB no CT and U/S. intermitan t emesis with white stools. Rheumatoid arthritis [address] Crabtree [employer] form filled out during today's office visit Opioid dependence 545860 00 F11.20 post cervical surgery 06/05. Getting in to Dr. Hung. Anemia 210686312 D64.9 Had one iron infusion needs to schedule her next one. Hypothyroidism 04700677 E03.9 Anxiety disorder 9783208 06 F41.9 Chronic pain syndrome 37 8994076 G89.4 Oxcontin 7.[address] Lisa. Recently increased to 10mg q 4 hrs from recent surgery. (temporary rx for [place] given waiting for Oxy to come in then d/margaret 2.8.24 KM) Peripheral vascular disease 791553393 I73.9 Dr. Dawn moreno managing her arterial disease on the L leg, her chronic DVT on the R leg and her richelle filter.keron cuevas stented her L left. check right leg. no clots. left filter in place and [facility] [id number] DIANA GARCIA PA-C [facility]) [address] [place] [address] [phone] 5 05/24/2024 14:51:15 05/24/2024 16:00:13 Chronic neck pain 3583676766 107 M54.2 getting nerve stim with DR. Grider in Jun 06 Atopic dermatitis 858336 01 L20.9 Obstructio n of common bile duct 790021414 K83.[address] thickening of CMB no CT and U/S. intermitan t emesis with white stools. Administra tion of pneumococcal vaccine 17723106 Z23 Edema 908783344 R60.9 Restless l egs syndrome 33058515 G25.81 I looked up meds that can cause formicatio n and her requip is listed which she is on very high doses of. She agrees to back down from tid to bid. Chronic insomnia 9290403 04 F51.04 [id number] DIANA GARCIA PA-C [facility] ([facility]) [address] [place] [address] [phone] 5 06/13/2024 12:25:24 06/16/2024 11:56:31 Atopic dermatitis 00278429 L20.9 lower legs. likely from venous stasus Restless l egs syndrome 77059575 G25.81 I looked up meds that can cause formicatio n and her requip is listed which she is on very high doses of. She agrees to back down from 5 mg tid to bid.06/13/24 drop her from 5 mg bid to 3 mg po bid. [id number] DIANA GARCIA PA-C [facility] ([facility]) [address] [place] [address] [phone] 5 07/06/2024 14:47:05 07/10/2024 15:08:00 Peripheral venous insufficiency 43523208 I87.2 Lavern Tate Chronic neck pain 764890 6405 107 M54.2 getting nerve stim with DR. Grider Chest pain 54568392 R07. 9 Hx PAD. will refer to cardiology for consult and testing to see of she has CAD and stable angina [id number] MALIK BRUSH [facility] ([facility]) [address] [place] [address] [phone] 5 07/24/2024 11:36:22 07/24/2024 14:50:48 Wheezing 15158110 R06.2 Discussed use of prescribed medication s. VSS. If you develop new/worsen ing s/s then return for re-evaluat ion. [id number] DIANA GARCIA PA-C [facility]) [address] [place] [address] [phone] 5 08/23/2024 14:47:46 08/23/2024 15:42:54 Acute thoracic back pain 933604687 M54.6 52152975 30 min spent with pt Chronic neck pain 301710 9987 107 M54.2 G89.29 889405 getting nerve stim with DR. Madison Grider tomorrow 08/24/24 Gastrointe stinal hemorrhage 75604022 K25.4 79969063 seeing GI next week for scopy and ERCP Dr. Chava puckett. [id number] DIANA GARCIA PA-C [facility]) [address] [place] [address] 02621-346 5 11/02/2024 14:26:10 11/02/2024 16:01:55 Cataplexy 64819521 G47.411 83339 ok to continue Effexor. Adverse re action to drug 36383478 T50.905D 38262731 she may be trying to stop her chronic use of baclofen to fast. 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 Will slowly taper her off her gabapentin as wellI suspect pt has histrionic personalit y disorder. REviewed her hospital records and they did a very good job of ruling out any physcial cause of her jerking.It would be ideal to get psych involved to help sort out her symptoms. Post-disch arge follow-up 407462513 Z09 424164 Anemia due to blood loss 131475509 D50.0 715934 recent capsule endoscopy. Dr. Larsen is working up [id number] DIANA GARCIA PA-C [facility]) [address] [place] [address] 08810-497 5 12/01/2024 08:51:12 12/01/2024 09:46:50 Gastroesophageal reflux disease 014876900 K21.9 98179453 Primary insomnia 7446982 F51.01 44771 Peptic ulcer 81481595 K2 7.9 Chronic pain 92462099 G8 9.29 Lymphedema 109003296 I89 .0 66496 Chronic neck pain 821193 0146 107 M54.2 G89.29 8278843 getting nerve stim with DR. Madison Grider tomorrow 08/24/24 Vascular insufficiency 05963395 I87.[id number] Tate manages looking to do some venous repair.Enc ouraged compressio n stockings and elevation until she can get some wraps. [id number] DIANA GARCIA PA-C [facility]) [address] [place] [address] [phone] 5 01/11/2025 14:06:00 01/12/2025 08:44:46 Multi vessel coronary artery disease 238482881 I25.10 2574619 recent stents x 2 back to back. 01/04 need one year of dual plt asa and plavix therapy for 1 yr. Post-disch arge follow-up 283470878 Z09 907528 Exposure t o SARS-CoV-2 206414479 Z20.822 1652305871 pt left without being tested. Upper gastrointestinal bleeding 38021099 K92.2 613722 scope 03/[address] Ruiz. Scope 01/05/25 at [facility] small area of bleeding. needs plavix and ASA due to stent on 12/27/24 [id number] DIANA GARCIA PA-C [facility]) [address] [place] [address] 02/13/2025 14:26:45 02/13/2025 15:27:07 Edema 308161080 R60.9 Upper gastrointestinal bleeding 50373783 K92.2 594729 scope 03/[address] Ruiz. Scope 01/05/25 at [facility] small area of bleeding. needs plavix and ASA due to stent on 12/27/24 Stented co ronary artery 168434573 I25.10 Z95.5 09138822 [id number] DIANA GARCIA PA-C [facility]) [address] [place] [address] 03/15/2025 14:19:35 03/19/2025 10:38:07 Generalized anxiety disorder 42198316 F41.1 036754 monitor Benzo requests. Has several rxes xanax, valium and clonazepam from [facility] PCP, Nerve root disorder 7227 4001 M54.12 205469 hx of the fusion C2 to t1. with new and worseing neck pain and nerve pain into the right shoulder pains. Hypokalemia 97317656 E87 .6 9791 on Kcl. was 2.9 at ER today recheck BMP in 2 weeks. Health Concerns Section Related Observation LastModified by Organization Detai ls LastModified Time None Recorded Concern Status LastModified by Organization Details LastModified Time None Recorded Advance Directives Directive None Recorded Payers Insurance Date Sequence Insurance Name Policy Number Policy Rivera Covered Member ID Rivera Member ID Guarantor Name 03/12/2025 [place] - [place] - [facility] (MEDICARE) Tosha Perry [id number] Tosha Perry 03/19/2025 2 [employer] (MEDICARE SUPPLEMENT) Tosha Perry [id number] Carmena Orlando 03/22/2025 1 [place]IC[place] B[place] [employer] Tosha Ariasew [id number] Tosha Perry Notes Date Note Type Note Provider Name and Address Organization Details Recorded Time 12/02/19 25 text/htm l EdemaReported by PatientHPIFor context, patient reportsprior history [...] leg 01/2024 Dr. Rola Puckett. appt with event designer in [place] 9., Seeing vein specialist as wellDr. Pelayo GI appt 01.04 for GI bleed f/u [facility] hospital stay: Needed a blood transfusion her in [place] before she went to [place]. Also had UTI and pneumonia at [facility] Was in hospital in [place] and had an upper GI bleed. Got a scope Hgb was 11. Has not been taking her EffexorBack down on her baclofen to BID and says she just taking her OXy BID as well and gabapentin BID. Much less shakingSays her shaking went almost all the way away after getting her blood transfusion DIANA GARCIA PA-C [address] [place] [address], [phone], [facility] 12/01/2024 09:40:36 01/12/20 25 text/htm l jr chest pain hpiReported by PatientHPIFor quality, [...] they saw no pneumonia DIANA GARCIA PA-C [address] [place], [address], [facility] 01/11/2025 18:13:05 02/14/20 25 text/htm l EdemaReported by PatientHPIFor quality, patient reportspainfulbut reportslegs [...] her GI doc. 10.28 DIANA GARCIA PA-C [address] [place], [address], [facility] 02/13/2025 15:25:18 03/15/20 25 text/htm l Fall UCReported by PatientHPIFor location of injury, patient reportshead. For severity of pain, patient reportsmoderate. For context, patient reportsfell from standing positionandreports hitting head. Anxiety/DepressionReported by PatientHPIFor severity, patient reportsincreased anxietybut reportsdenies suicidal ideations,able to maintain relationships, anddoes not interfere with activities of daily living. For context, patient reportsrecent medical event. For associated symptoms, patient reportsanxietybut reportsdenies homicidal ideations,no significant weight gain,no significant weight loss, andno visual/auditory hallucinations. For duration, patient reportschronic. For onset/timing, patient reportsgradual. er follow up 03-15-25 chest pain. I need something for anxiety the er dr said my pcp can get a dr to get me something for it. I fell a couple nights ago and hit my head now my neck feel like its grinding. DIANA GARCIA PA-C [address] [place], [address], [facility], Job 03/18/2025 21:21:13 03/22/20 25 text/htm l ROS as noted in the HPI Walk inRash, all over body. Recent stay in hospital where she was told she had scabbies. Was treated for this but it has gotten worse. Patient complains of vomiting starting about 1 hour ago. Not Available Not Available Not Available OBGyn Episode No OBEpisode recorded.
--- OUTSIDE RECORDS SUMMARY | 2025-03-27 05:12 | XMS_ITS | Patient Health Record ---
Author Organization Dr Desiree gordon [facility] Address [address] [facility] [address] [place] [address] Support Name Relationship Address Phone BARRY VAN Guarantor Unknown [phone] Allergies Allergen (clinical drug ingredient) Drug/Non Drug Allergy documented on EMR Reaction Allergy Type Onset Date Status diphenhydramine Benadryl Unknown Drug Allergy A ctive sumatriptan Imitrex Unknown Drug Allergy Activ e Compazine Unknown Drug Allergy Active Reason For Referral No Information Medications Medication SIG (Take, Route, Frequency, Duration) Notes Start Date End Date Status Potassium Chloride ER 10 MEQ Tablet Extended Release TAKE 1 TABLET BY MOUTH TWICE A DAY WITH FOOD FOR 30 DAYS; Duration: 30 Active Levothyroxine Sodium 112 MCG Tablet TAKE 1 TABLET IN THE MORNING ON AN EMPTY STOMACH ORALLY ONCE A DAY; Duration: 30 Active Ondansetron HCl 4 MG Tablet TAKE 1 TABLET BY MOUTH EVERY DAY NEEDED FOR 30 DAYS; Duration: 30 Active clonazePAM 1 MG Tablet 1 tablet Orally O nce a day Not-Taking FLUoxetine HCl 20 MG Capsule TAKE 1 CAPSULE BY MOUTH EVERY DAY; Duration: 30 Active Baclofen 10 MG Tablet TAKE 1 TABLET BY M OUTH TWICE A DAY NEEDED FOR 30 DAYS Active Gabapentin 300 MG Capsule TAKE ONE CAPSU LE BY MOUTH 3 TIMES A DAY; Duration: 30 Active oxyCODONE HCl 5 MG Tablet 1 tablet as ne eded Orally One bid Active rOPINIRole HCl 3 MG Tablet 1 tablet 1 to 3 hours before bedtime Orally Once a day Active Furosemide 40 MG Tablet TAKE 1 TABLET BY MOUTH EVERY DAY; Duration: 30 Active Pantoprazole Sodium 40 MG Tablet Delayed Release TAKE 1 TABLET BY MOUTH EVERY DAY FOR 30 DAYS; Duration: 90 Active Social History Tobacco Use: Social History Observation Description Date Details (start date - stop date) Never Smoker NA - NA Social History Drugs/Alcohol: Social Info Question Answer Notes Alcohol Screen (Audit-C) Did you have a drink containing alcohol in the past year? No Points 0 Interpretation Negative Drugs Have you used drugs other than those for medical reasons in the past 12 months? No Caffeine Intake: 1-2 cups per day Tobacco Use: Social Info Question Answer Notes Tobacco Use/Smoking Are you a nonsmoker Problems Problem Type SNOMED Code ICD Code Onset Dates Problem Status W/U Status Risk Notes Problem Hypothyroidism (12868003) Other specified hypothyroidism (E03.8) Active confirmed Problem Chronic pancreatitis (284644256) Other chronic pancreatitis (K86.1) Active confirmed Problem Sciatica (33637126) Lumbago with sciatica, right side (M54.41) Active confirmed Problem Sciatica (05140675) Lumbago with sciatica, left side (M54.42) Active confirmed Problem Anxiety (92628777) Anxiety (F41.9) Active confirmed Problem Posttraumatic stress disorder (01184658) PTSD (post-traumatic stress disorder) (F43.10) Active confirmed Problem Heart failure (41326688) Other congestive heart failure (I50.9) Active confirmed Problem Chronic pain due to injury (328402194) 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) Active [...] End Date MEDICARE [place], [place] [address] [address] GABI [place]RIZUEL[place] [id number] [id number] BARRY VAN Self - patient is the insured [employer] [facility] [place] [id number] BARRY VAN Self - patient is the insured Medical (General) History Medical History History ICD Code Hypothyroidism head injury with seizures multiple traumatic injuries from [facility] back surgery pancreatitis cataract pneumonia depression GERD Surgical History Surgery Date(Month/Year) back surgery 2015 Hospitalization History Reason Date(Month/Year) Pneumonia and hand infection. 11/2021
--- OUTSIDE RECORDS SUMMARY | 2025-03-27 05:12 | XMS_ITS | Patient Health Record ---
Author Organization [facility] Address [address] [place] [address] Care Team Providers Care Emergency Communications Officer Name Role Phone Diana Galvan Primary Care Provider UnavailDeedee Vickers Unavailable [phone] Rajesh Serna Unavailable [phone] Paxton Nobles Unavailable [phone] Mode Cabello Unavailable [phone] Desiree Cox Unavailable Allergies Allergen (clinical drug ingredient) Drug/Non Drug Allergy documented on EMR Reaction Allergy Type Onset Date Status diphenhydramine Benadryl Unknown Drug Allergy A ctive sumatriptan Imitrex Unknown Drug Allergy Activ e Results Component Value Reference Range Flag Notes Urine Drug Screen (cup read) - 80807 Reviewed date:06/22/2024 01:19:32 PM Interpretation:Positive Performing Lab: Notes/Report: Positive OXY + Tox Results Reviewed date:06/28/2024 02:49:57 PM Interpretation: Performing Lab: Notes/Report: Urine Drug Screen (cup read) - 69803 Reviewed date:11/27/2024 02:11:57 PM Interpretation: Performing Lab: Notes/Report: OXY + Urine Confirmation Panel (in strument) - 33372 Reviewed date:12/05/2024 02:47:57 PM Interpretation: Performing Lab: [...] the U.S. Food and Drug Administration. Gabapentin >65754 <225 ng/mL > This test was developed [...] Administration. Urine Confirmation Panel (in strument) - [id number] Reviewed date:06/28/2024 02:49:57 PM Interpretation: Performing Lab: [...] the U.S. Food and Drug Administration. Gabapentin >22967 <225 ng/mL > This test was developed [...] Notes/Report: Urine Drug Screen (cup read) - 99100 Reviewed date:10/05/2024 10:34:03 AM Interpretation: Performing Lab: Notes/Report: BZO + OPI + IPMA Saliva Drug Screen Reviewed date:09/01/2024 10:27:02 AM Interpretation: Performing Lab: Notes/Report: Schedule Confirmation Reviewed date:02/27/2025 02:32:50 PM Interpretation: Performing Lab: Notes/Report: zzzCT Outside CD Reviewed date:02/27/2025 02:32:50 PM Interpretation: Performing Lab: Notes/Report: [id number] zzzUrine Drug Screen (confir mation by instrument) - [id number] Reviewed date:04/06/2024 12:03:00 PM Interpretation: Performing Lab: Notes/Report: Urine Drug Screen (cup read) - 05690 Reviewed date:03/30/2024 03:52:14 PM Interpretation: Performing Lab: Notes/Report: OXY + Reason For Referral Reason EMG/NCV Bilateral Up per Extremities Diagnosis 1 Pain in right upper arm (M79.621) Diagnosis 2 Pain in left upper a rm (M79.622) Diagnosis 3 Cervical radiculopat hy (M54.12) Diagnosis 4 Degenerative disc di sease, cervical (M50.30) Diagnosis 5 Cervical paraspinal muscle spasm (M62.838) Referral Organization [facility] [place] Referring Provider First Name Rajesh Referring Provider Last Name Kareem Referring Provider Speciality Neurosurge tahmina Referred Provider [facility] ([facility]) Referred Provider Specialty Physical The rapist Referral Priority Routine Reason Evaluation of a cerv ical spinal cord stimulator Diagnosis 1 Cervical paraspinal muscle spasm (M62.838) Diagnosis 2 Chronic pain syndrom e (G89.4) Diagnosis 3 Arthrodesis status ( Z98.1) Referring Provider First Name Rajesh Referring Provider Last Name Kareem Referring Provider Speciality Neurosurge tahmina Referred Organization [facility] Referred Provider Mode Cabello Referred Address [address] [place] [id number], General Notes Alissa Myrick 0 05/19/2024 03:03:09 PM >ATC to schedule. Referral Priority Routine Reason Evaluation of a cerv ical spinal cord stimulator Diagnosis 1 Chronic pain syndrom e (G89.4) Diagnosis 2 Cervical paraspinal muscle spasm (M62.838) Diagnosis 3 Arthrodesis status ( Z98.1) Referral Organization [facility] [place] Referring Provider First Name Rajesh Referring Provider Last Name Kareem Referring Provider Speciality Neurosurge tahmina Referred Provider Moed Cabello Referred Provider Specialty Intervention al Pain [...] Status Risk Notes Problem Chronic pain syndrome (232581502) Chronic pain syndrome (G89.4) 09/15/19 Active confirmed Problem Cervical spondylosis without myelopathy (105398014) Other spondylosis with radiculopathy, cervical region (M47.22) 09/15/19 Active confirmed Problem Degeneration of cervical intervertebral disc (47078868) Other cervical disc degeneration, unspecified cervical region (M50.30) 09/15/19 Active confirmed Problem Post-laminectomy syndrome (02805390) Postlaminectomy syndrome, not elsewhere classified (M96.1) 09/15/19 Active confirmed Problem Abnormal gait (88728373) Unspecified abnormalities of gait and mobility (R26.9) 09/15/19 Active confirmed Problem High risk drug monitoring status (712414744) long-term (current) use of opiate analgesic (Z79.891) 09/15/19 Active confirmed Problem Cervical radiculopathy (23883105) Cervical radiculopathy (M54.12) Active confirmed Problem Degeneration of cervical intervertebral disc (12403798) Degenerative disc disease, cervical (M50.30) Active confirmed Problem 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) (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) Facet arthropathy, 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) Active confirmed Problem Neck pain (87756185) Cervical pain (neck) (M54.2) Active confirmed Problem Peripheral vascular disease (482381979) Peripheral vascular disease (I73.9) Active confirmed Vital [...] 02/16/2025 Encounters Encounter Location Date Provider Diagnosis [facility] [place] [address] [place] [address] 03/30/2024 Deedee Villarreal Chronic pain syndrom e G89.4 ; Other cervical disc degeneration, unspecified cervical region M50.30 ; Other spondylosis with radiculopathy, cervical region M47.22 ; Postlaminectomy syndrome, not elsewhere classified M96.1 ; Myalgia of auxiliary muscles, head and neck M79.12 ; Unspecified abnormalities of gait and mobility R26.9 and long-term (current) use of opiate analgesic Z79.891 [facility] [place] [address] [place] [address] 04/26/2024 Mode Cabello Chronic pain syndrom e G89.4 ; Other spondylosis with radiculopathy, cervical region M47.22 ; Other cervical disc degeneration, unspecified cervical region M50.30 ; Myalgia of auxiliary muscles, head and neck M79.12 ; Postlaminectomy syndrome, not elsewhere classified M96.1 ; Unspecified abnormalities of gait and mobility R26.9 and long-term (current) use of opiate analgesic Z79.891 [facility] [place] [address] [place] [address] 05/04/2024 Rajesh Serna Cervical paraspinal muscle spasm M62.838 ; Chronic pain syndrome G89.4 ; Degenerative disc disease, cervical M50.30 ; Cervical radiculopathy M54.12 and Arthrodesis status Z98.1 [facility] [place] [address] [place] [address] 05/24/2024 Mode Cabello Chronic pain syndrom e G89.4 ; Other cervical disc degeneration, unspecified cervical region M50.30 ; Other spondylosis with radiculopathy, cervical region M47.22 ; Myalgia of auxiliary muscles, head and neck M79.12 ; Postlaminectomy syndrome, not elsewhere classified M96.1 ; Unspecified abnormalities of gait and mobility R26.9 and long-term (current) use of opiate analgesic Z79.891 [facility] [place] [address] [place] [address] 06/22/2024 Deeede Villarreal Chronic pain syndrom e G89.4 ; Other cervical disc degeneration, unspecified cervical region M50.30 ; Other spondylosis with radiculopathy, cervical region M47.22 ; Myalgia of auxiliary muscles, head and neck M79.12 ; Postlaminectomy syndrome, not elsewhere classified M96.1 ; Unspecified abnormalities of gait and mobility R26.9 and long-term (current) use of opiate analgesic Z79.891 [facility] [place] [address] [place] [address] 08/24/2024 Deedee Villarreal Chronic pain syndrom e G89.4 ; Other spondylosis with radiculopathy, cervical region M47.22 ; Myalgia of auxiliary muscles, head and neck M79.12 ; Unspecified abnormalities of gait and mobility R26.9 ; Postlaminectomy syndrome, not elsewhere classified M96.1 ; Other cervical disc degeneration, unspecified cervical region M50.30 and predatory animal exterminator (current) use of opiate analgesic Z79.891 [facility] [place] [address] [place] [address] 10/05/2024 Deedee Villarreal Chronic pain syndrom e G89.4 ; Other spondylosis with radiculopathy, cervical region M47.22 ; Myalgia of auxiliary muscles, head and neck M79.12 ; Unspecified abnormalities of gait and mobility R26.9 ; Postlaminectomy syndrome, not elsewhere classified M96.1 ; Other cervical disc degeneration, unspecified cervical region M50.30 and long-term (current) use of opiate analgesic Z79.891 [facility] [place] [address] [place] [address] 11/27/2024 Deedee Villarreal Chronic pain syndrom e G89.4 ; Other spondylosis with radiculopathy, cervical region M47.22 ; Myalgia of auxiliary muscles, head and neck M79.12 ; Unspecified abnormalities of gait and mobility R26.9 ; Postlaminectomy syndrome, not elsewhere classified M96.1 ; Other cervical disc degeneration, unspecified cervical region M50.30 and predatory animal exterminator (current) use of opiate analgesic Z79.891 [facility] [place] [address] [place] [address] 02/16/2025 Deedee Villarreal Chronic pain syndrom e G89.4 ; Other spondylosis with radiculopathy, cervical region M47.22 ; Myalgia of auxiliary muscles, head and neck M79.12 ; Postlaminectomy syndrome, not elsewhere classified M96.1 ; Other cervical disc degeneration, unspecified cervical region M50.30 ; predatory animal exterminator (current) use of opiate analgesic Z79.891 and Unspecified abnormalities of gait and mobility R26.9 [facility] [place] [address] [place] [address] 03/30/2024 Rajesh Serna [facility] [address] [place] [address] 03/30/2024 Mode Cabello [facility] [place] [address] [place] [address] 04/10/2024 Rajesh Serna Cervical paraspinal muscle spasm M62.838 ; Degenerative disc disease, cervical M50.30 ; Cervical radiculopathy M54.12 ; Pain in left upper arm M79.622 and Pain in right upper arm M79.621 [facility] [place] [address] [place] [address] 05/17/2024 Mode Cabello [facility] [place] [address] [place] [address] 06/05/2024 Mode Cabello Other spondylosis wi th radiculopathy, cervical region M47.22 [facility] [place] [address] [place] [address] 06/22/2024 Mode Cabello Chronic pain syndrom e G89.4 and Other spondylosis with radiculopathy, cervical region M47.22 [facility] [place] [address] [place] [address] 07/10/2024 Deedee Villarreal [facility] [address] [place] [address] 08/17/2024 Mode Cabello [facility] [place] [address] [place] [place] [place] [address] 08/24/2024 Mode Cabello Other spondylosis wi th radiculopathy, cervical region M47.22 [facility] [place] [address] [place] [place] [place] [address] 10/05/2024 Desiree Lyuksyutova-Margi ce Other spondylosis with radiculopathy, cervical region M47.22 [facility] [place] [address] [place] [place] [address] 11/27/2024 Desiree Lyuksyutova-Margi ce Other spondylosis with radiculopathy, cervical region M47.22 [facility] [place] [address] [place] [place] [address] 01/01/2025 Mode Cabello Other spondylosis wi th radiculopathy, cervical region M47.22 [facility] [place] [address] [place] [address] 02/02/2025 Desiree Lyuksyutova-Margi ce Other spondylosis with radiculopathy, cervical region M47.22 [facility] [place] [address] [place] [address] 02/16/2025 Mode Cabello Other spondylosis wi th radiculopathy, cervical region M47.22 [facility] [place] [address] [place] [place] [address] 04/14/2024 Mode Cabello [facility] [address] [facility] [place] [address] 05/30/2024 Deedee Villarreal Assessments Encounter Date Diagnosis [...] bad her anxiety has been lately. 05/04/2024 Cervical paraspinal muscle spasm (ICD-10 - M62.838) 03/30/2024 Other cervical disc degeneration, unspecified cervical [...] monitor for treatment effectiveness and compliance. 05/04/2024 Chronic pain syndrome (ICD-10 - G89.4) 04/10/2024 Degenerative disc disease, cervical (ICD-10 - M50.30) 02/16/2025 Chronic pain syndrome [...] effects are noted. Last UDS and AR CEMENT SACK BREAKER reviewed today. Patient is advised that best [...] effects are noted. Last UDS and AR CEMENT SACK BREAKER reviewed today. Patient is advised that best [...] 06/22/2024 Chronic pain syndrome (ICD-10 - G89.4) 06/05/2024 Other spondylosis with radiculopathy, cervical region [...] the cervical trial. This will be a [employer] device as we will try the closed-loop [...] effects are noted. Last UDS and AR CEMENT SACK BREAKER reviewed today. Patient is advised that best [...] unspecified cervical region (ICD-10 - M50.30) 02/16/2025 Other spondylosis with radiculopathy, cervical region [...] head and neck (ICD-10 - M79.12) 05/24/2024 Other spondylosis with radiculopathy, cervical region [...] M47.22) 04/10/2024 Cervical radiculopathy (ICD-10 - M54.12) 04/10/2024 Pain in left upper arm (ICD-10 - M79.622) 05/04/2024 Cervical radiculopathy (ICD-10 - M54.12) 03/30/2024 Postlaminectomy syndrome, not elsewhere classified (ICD-10 - M96.1) 06/22/2024 Other spondylosis with radiculopathy, cervical region (ICD-10 - M47.22) 04/26/2024 Myalgia of auxiliary muscles, head and neck (ICD-10 - M79.12) 02/16/2025 Postlaminectomy syndrome, not elsewhere classified (ICD-10 - M96.1) 11/27/2024 Myalgia of auxiliary muscles, head and neck (ICD-10 - M79.12) 10/05/2024 Myalgia of auxiliary muscles, head and neck (ICD-10 - M79.12) 08/24/2024 Unspecified abnormalities of gait and mobility (ICD-10 - R26.9) 05/24/2024 Myalgia of auxiliary muscles, head and [...] the procedure and all questions were answered. 08/24/2024 Postlaminectomy syndrome, not elsewhere classified (ICD-10 - M96.1) 04/26/2024 Postlaminectomy syndrome, not elsewhere classified (ICD-10 - M96.1) 10/05/2024 Unspecified abnormalities of gait and mobility (ICD-10 - R26.9) 11/27/2024 Unspecified abnormalities of gait and mobility (ICD-10 - R26.9) 02/16/2025 Other cervical disc degeneration, unspecified cervical region (ICD-10 - M50.30) 06/22/2024 Myalgia of auxiliary muscles, head and neck (ICD-10 - M79.12) 05/04/2024 Arthrodesis status (ICD-10 - Z98.1) 04/10/2024 Pain in right upper arm (ICD-10 - M79.621) 03/30/2024 Myalgia of auxiliary muscles, head and neck (ICD-10 - M79.12) 03/30/2024 Unspecified abnormalities of gait and mobility (ICD-10 - R26.9) 06/22/2024 Postlaminectomy syndrome, not elsewhere classified (ICD-10 - M96.1) 02/16/2025 long-term (current) use of opiate analgesic (ICD-10 - Z79.891) 11/27/2024 Postlaminectomy syndrome, not elsewhere classified (ICD-10 - M96.1) 10/05/2024 Postlaminectomy syndrome, not elsewhere classified (ICD-10 - M96.1) 08/24/2024 Other cervical disc degeneration, unspecified cervical region (ICD-10 - M50.30) 04/26/2024 Unspecified abnormalities of gait and mobility (ICD-10 - R26.9) 05/24/2024 Unspecified abnormalities of gait and mobility (ICD-10 - R26.9) 05/24/2024 predatory animal exterminator (current) use of opiate analgesic (ICD-10 - Z79.891) 08/24/2024 predatory animal exterminator (current) use of opiate analgesic (ICD-10 - [...] effects are noted. Last UDS and AR CEMENT SACK BREAKER reviewed today. Patient is advised that best [...] abide by our urine testing policy. 04/26/2024 predatory animal exterminator (current) use of opiate analgesic (ICD-10 - Z79.891) 10/05/2024 Other cervical disc degeneration, unspecified cervical region (ICD-10 - M50.30) 11/27/2024 Other cervical disc degeneration, unspecified cervical region (ICD-10 - M50.30) 02/16/2025 Unspecified abnormalities of gait and mobility (ICD-10 - R26.9) 06/22/2024 Unspecified abnormalities of gait and mobility (ICD-10 - R26.9) 03/30/2024 predatory animal exterminator (current) use of opiate analgesic (ICD-10 - Z79.891) 06/22/2024 predatory animal exterminator (current) use of opiate analgesic (ICD-10 - [...] abide by our urine testing policy. 11/27/2024 long-term (current) use of opiate analgesic (ICD-10 - Z79.891) 10/05/2024 long-term (current) use of opiate analgesic (ICD-10 - [...] Name Order Date Cervical Spine AP/Lat 2-3 [id number] Next Appt Details Provider Name:Mode Cabello, 04/11/2025 01:40:00 PM, [address] [place], [address], Insurance Providers Payer Name Payer Address Payer Phone Subscriber Number Group Number Insured Name Patient Relationship to Insured Coverage Start Date Coverage End Date [place] Medicare [address] [place] [phone] [id number] BARRY VAN Self - patient is the insured [place] [address] [place] [address] [id number] BARRY VAN Self - patient is the insured [place] Medicare [address] [address] [place] [address] [phone] [id number] BARRY VAN Self - patient is the insured Medical (General) History Surgical History Surgery Date(Month/Year) Neck surgeries left ankle surgery Jaw surgeries Hysterectomy Hernia surgery section Breast biopsy appendectomy
--- OUTSIDE RECORDS SUMMARY | 2025-03-27 05:12 | XMS_ITS | Clinical Summary ---
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
--- OUTSIDE RECORDS SUMMARY | 2025-03-27 05:13 | XMS_ITS | Continuity of Care Document ---
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 Plan of Treatment Reminders Order Date Submit Date Provider Last Modified By Organization Details Last Modified Time Details Appointments OFFICE VISIT 2025 02:00P Anyn VO PA-C Not available Not available Not available Lab None recorded. Referral None recorded. Procedures None recorded. Surgeries None recorded. Imaging MRI, cervical spine, w/o contrast 2024 025 [facility] Orders, [address] [place], [address], 03/26/2025 15:10:41 Medication Orders fluoxetin e 10 mg capsule 2024 025 [facility] #[id number], [address] [facility], [facility] [address], [place], [address], 03/15/2025 15:23:47 Patient TargetsNo targets recorded. Patient InstructionsNo instructions recorded. Reason for Referral None Reported. Results Created Date Observation Date Name Description Value Unit Range Abnormal Flag Note LastModifiedBy Organization Detail LastModifiedTime 03/23/2003/22/2025 XR, hand, 3 or more view No observ ation record ed. [facility] [address] [place], [address], 03/25/2025 12:54:51 Result Notes None recorded. Problems Name Problem SNOMED Code Status Onset Date Resolution Date Notes Provider Name and Address Organization Details Recorded Time Hand pain 83347775 Completed 202205/14/[address] [facility], RodgerL.CHarjeet 5 07:55:21 Hand pain 16721903 Completed 202205/14/[address] [facility], LHarjeetL.CHarjeet 5 07:55:15 Low back pain 800962748 Completed 202305/14/[address] [facility], RodgerL.CHarjeet 5 18:20:21 Deep venous thrombosi s of lower extremity 399547441 Completed 202305/14/2024 at [facility] non occlusi ve. IVC placed due to no able to take blood thinner s. NICOLE gustafson [facility], L.L.CHarjeet 5 07:54:08 Chronic pain 35521391 Active [address] [facility] 5 07:54:43 Hospital inpatient stay within past 30 days 46163610088 06 Completed 202305/14/[address] [facility], L.L.CHarjeet 5 07:55:38 History of cervical spine fusion 88592660009 Completed 202305/14/[address] [facility], RodgerL.CHarjeet 5 07:55:29 Hypothyro idism 29194945 Active [address] [facility], RodgerLHarjeetCHarjeet 5 07:55:43 Depressiv e disorder 11067099 Active 2023 NICOLE HAEFFNER null, [facility] 5 07:54:53 Gastroeso phageal reflux disease without esophagit is 406469814 Active 2023 NICOLE HAEFFNER null, [facility] 5 07:55:09 Anxiety 07141771 Active 2023 NICOLE HAEFFNER null, [facility] 5 07:54:40 Rib pain 194682132 Completed 202305/14/2024 NICOLE HAEFFNER null, [facility] 5 07:57:21 Nausea 133122567 Completed 202305/14/2024 NICOLE HAEFFNER null, [facility] 5 07:55:56 Peptic ulcer 16981664 Completed 202305/14/2024 NICOLE HAEFFNER null, [facility] 5 07:57:13 Pain in bilateral legs 39161577413 689749 Completed 202305/14/2024 NICOLE HAEFFNER null, [facility] 5 07:56:52 Pain in left lower limb 643375905 Completed 202305/14/2024 NICOLE HAEFFNER null, [facility] 5 07:57:01 Acquired dilation of bile duct 03577842538 36239 Completed 202305/14/2024 NICOLE HAEFFNER null, [facility] 5 07:54:30 Deep venous thrombosi s 154557050 Completed 202305/14/2024 NICOLE HAEFFEDD null, [facility] 5 07:54:50 Anemia 208991754 Active 2023 NICOLE HADENISE null, [facility] 5 07:54:37 Pain in right arm 304654423 Completed 202305/14/2024 NICOLE HADENISE null, [facility] 5 07:57:07 Right upper quadrant pain 854855764 Completed 202305/14/2024 NICOLE ROSA MARIA null, [facility] 5 07:57:36 Nausea and vomiting 93481179 Completed 202305/14/2024 NICOLE ROSA MARIA null, [facility] 5 07:56:02 Edema 511234588 Completed 202305/14/2024 NICOLE HADENISE null, [facility] 5 07:54:58 Rheumatoi d arthritis 82730280 Active 2024 NICOLE ROSA MARIA null, [facility] 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 5 08:05:04 Low back pain 095588318 Active 2024 NICOLE HADENISE null, [facility] 5 18:20:21 Restless legs syndrome 83776734 Active 2024 NICOLE HADENISE null, [facility] 5 18:20:23 Chronic insomnia 080746117 Active [address] 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, Job 5 14:49:35 Problem Notes None recorded. Procedures Surgical History Date Name Laterality Status Provider Name and Address Organization Details Recorded Time 2024 fluoroscopic angiography of coronary artery with contrast and insertion of stent completed NICOLE CRANE [facility], Job 5 18:02:58 2024 plain X-ray of chest completed PAULETTE EREN [facility], Job 5 00:10:[address] of abdomen and pelvis completed [facility], RodgerLIgnacio 5 00:12:33 2023 insertion of arterial stent completed JER VO PA-C [address] [place], [address], [facility], RodgerLHarjeetCHarjeet 4 15:12:39 2023 colonoscopy completed KIERAN VO PA-C [address] [place], [address], [facility], LHarjeetLIgnacio 4 17:29:05 2023 esophagogastroduodenoscopy completed KIERAN VO PA-C [address] [place], [address], [facility], Job 4 17:08:01 2023 ultrasonography of liver [facility] 4 16:43:05 2023 primary posterior decompression cervical cord and fusion completed KIERAN VO PA-C [address] [place], [address], [facility], RodgerLHarjeetCHarjeet 4 13:58:12 2023 insertion of inferior vena caval filter completed KIERAN VO PA-C [address] [place], [address], [facility], RodgerLHarjeetCHarjeet 4 13:58:28 2022 primary fusion of cervical spine completed KIERAN VO PA-C [address] [place], [address], [facility], LHarjeetLHarjeetCHarjeet 3 12:50:26 Imaging Results None recorded. Procedure Notes None recorded. Medical Equipment None Reported. Allergies Allergen ID Allergen Name Allergen Category Reaction Reaction Severity Criticality Documentation Date Start Date Code Code System Note Provider Name and Address Organization Details Recorded Time 67803 Benadryl medicatio n Not available Not available Not available 03/12/2023 [address] [facility] L.L.CHarjeet 3 12:01:01 66068 amitripty line medicatio n Not available Not available Not available 03/12/2023 [address] [facility] L.L.CHarjeet 3 12:01:37 97134 tizanidin e medicatio n Not available Not available Not available 03/12/2023 [address] [facility] L.L.CHarjeet 3 12:08:21 22724 morphine medicatio n confusion Not available [facility] 09/02/2023 7052 RxNorm KIERAN VO PA-C [address] [place], [address], [facility], L.L.CHarjeet 4 15:15:03 12250 venlafaxi ne medicatio n itching Not available Not available 02/13/2025 [address] [facility] 5 14:50:24 68166 ibuprofen medicatio n Not available Not available unabletoasse 02/23/2025 5640 RxNorm Not Available wanda - External [employer] - prod 5 09:45:37 76309 acetamino phen medicatio n Not available Not available unabletoasse 02/23/2025 161 RxNorm Not Available wanda - External Data Service - prod 5 09:45:37 67561 prochlorp erazine medicatio n Not available [facility] 02/23/2025 8704 RxNorm Not Available wanda - External Data Service - prod 5 09:45:37 82053 diphenhyd ramine medicatio n Not available Not available unabletoasse 02/23/2025 3498 RxNorm unrec ogniz ed react ion (text : Hyper activ e behav ior (find ing), code: 70774 000) (from exter nal [facility] e) Not Available wanda - External Data Service - prod 5 09:45:37 54838 leflunomi de medicatio n Not available Not available [facility] 02/23/20252024 25327 RxNorm Not Available wanda - External Data Service - prod 5 09:45:40 87311 sulfasala zine medicatio n Not available Not available [facility] 02/23/20252024 9524 RxNorm Not Available wanda - External Data Service - prod 5 09:45:40 56157 metoclopr amide Not available Not available Not available Not available 03/12/2025 6915 RxNorm Not Available wanda - External Data [employer] - prod 5 15:33:31 77331 sumatript an medicatio n Not available Not available Not available 03/15/2025 55734 RxNorm Not Available wanda - External Data [employer] - prod 07:31:55 Medications Name Sig Start Date Stop [...] Updated DateTime 5 163.83 cm 24.3 kg/m2 10849.3 g 98 % 72 /min 18 /min 98 [degF] 136/80 mm[Hg] NICOLE CRANE [facility] L.L.CH[facility]jeet 5 14:34:09 Social History Question Answer Notes LastModified by Organizat ion Details LastModified Time Tobacco Smoking Status Former Smoker Irene Naylor janay [facility] 09/05/2023 15:56:32 Which Illicit Or Recreational Drugs Have You Used? Leilani [email or web address] Information not available 11/02/2024 What Was The Date Of Your Most Recent Tobacco Screening? 03/22/2025 [email or web address] Information not available 03/22/2025 At What Age Did You Start Smoking Tobacco? 49 For 3 Weeks Only [email or web address] Information not available 11/02/2024 Sex: Unknown Functional Status Question Answer Note LastModified by Organizat ion Details LastModified Time Do you use any illicit or recreational drugs? Yes Information not available 11/02/2024 What is your level of alcohol consumption? None [email or web address] Information not available 11/02/2024 Mental Status None recorded. Family History Nothing Reported. Medical History No medical history recorded. Gynecological HistoryNo gynecological history recorded. Obstetrics History GPAL:G 0 P 0 0 0 0 Immunizations Vaccine Type Date Status Note Provider Nam e and Address Organization Details Recorded Time COVID-19, mRNA, LNP-S, PF, errol-sucrose, 30 mcg/0.3 mL [address] [facility] 11/12/2023 15:11:33 Influenza, split virus, trivalent, PF 4 completed [facility] 03/15/2025 14:19:55 Influenza, adjuvanted, trivalent, PF 5 completed [facility] 03/15/2025 14:19:55 Pneumococcal conjugate PCV20, polysaccharide GAA655 conjugate, adjuvant, PF [address] [facility] 05/24/2024 16:17:51 Past Encounters Encounter ID Performer Location Encounter Start Date Encounter Closed Date Diagnosis/Indication Diagnosis SNOMED-CT Code Diagnosis ICD10 Code Diagnosis IMO Codes Diagnosis Note [id number] KIERAN VO PA-C [facility] [address] [place] [address] 02/13/2025 14:26:45 02/13/2025 15:27:07 Edema 807433077 R60.9 Upper gastrointestinal bleeding 23502044 K92.2 052371 scope 03/[address] Ruiz. Scope 01/05/25 at [facility] small area of bleeding. needs plavix and ASA due to stent on 12/27/24 Stented co ronary artery 890600260 I25.10 Z95.5 61631467 [id number] KIERAN VO PA-C [facility] [address] [place] [address] 03/15/2025 14:19:35 03/19/2025 10:38:07 Generalized anxiety disorder 80021981 F41.1 296861 monitor Benzo requests. Has several rxes xanax, valium and clonazepam from [facility] PCP, Nerve root disorder 7227 4001 M54.12 084558 hx of the fusion C2 to t1. with new and worseing neck pain and nerve pain into the right shoulder pains. Hypokalemia 76645821 E87 .6 9791 on Kcl. was 2.9 at ER today recheck BMP in 2 weeks. Health Concerns Section Related Observation LastModified by Organization Detai ls LastModified Time None Recorded Concern Status LastModified by Organization Details LastModified Time None Recorded Payers Encounter Date Sequence Insurance Name Policy Number Policy Rivera Covered Member ID Rivera Member ID Guarantor Name 03/15/2025 1 [place]IC[place] Tosha Peryr [id number] Tosha Perry 03/15/2025 2 [employer] [place] (MEDICARE SUPPLEMENT) Tosha Perry [id number] Tosha Perry Notes Date Note Type Note Provider Name and Address Organization Details Recorded Time 03/15/2025 text/html Fall UCReported by PatientHPIFor location of injury, patient reportshead. For severity of pain, patient reportsmoderate. For context, patient reportsfell from standing positionandreports hitting head. Anxiety/DepressionRepor amilcar by PatientHPIFor severity, patient reportsincreased anxietybut reportsdenies [...] now my neck feel like its grinding. KIERAN VO PA-C [address] [place], [address], [facility] [place] [facility] [place]. 03/18/2025 21:21:13 OBGyn Episode No OBEpisode recorded.
--- OUTSIDE RECORDS SUMMARY | 2025-03-27 05:13 | XMS_ITS | Patient Health Record ---
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 Name Role Phone Desiree Gaming MD Primary Care Provider Trip Wilcox MD, Srinivasan [facility] Reason For Referral No Information Medications Medication SIG (Take, Route, Frequency, Duration) Notes Start Date End Date Diagnosis (ICD Code) Status Ondansetron 8 MG Tablet Disintegrating TAKE 1 TABLET EVERY 6-8 HOURS PRN nausea Oral Active Omeprazole-Sodium Bicarbonate 40-1100 MG Capsule TK 1 C PO QD OES Oral 04/06/20 17 Active Dexilant 60 MG Capsule Delayed Release TAKE 1 CAPSULE DAILY Oral 02/11/20 18 Active Vimpat 50 MG Tablet Oral 03/23/20 17 Active Creon 05573 UNIT Capsule Delayed Release Particles Oral 04/07/20 17 Active Creon 15149 UNIT Capsule Delayed Release Particles Oral 02/19/20 17 Active Omeprazole 40 MG Capsule Delayed Release Oral 02/12/20 17 Active Gabapentin 600 MG Tablet TK 1 T PO TID Oral 09/03/19 17 Active Nitrofurantoin Monohyd Macro 100 MG Capsule Oral 12/10/19 18 Active BD TB Syringe 25G X 5/8 1 ML Does Not Apply *please review for potential update for e-prescription and drug interaction check* 02/04/20 18 Active Gabapentin 300 MG Capsule TAKE 1 CAPSULE 3 TIMES DAILY. Oral Active rOPINIRole HCl 5 MG Tablet Oral 10/05/19 20 Active Furosemide 40 MG Tablet Oral 03/02/20 17 Active rOPINIRole HCl 3 MG Tablet TAKE 1 TABLET 3 TIMES DAILY. Oral Active Folic Acid 1 MG Tablet TAKE 1 TABLET DAILY. Oral Active Voltaren 1 % Gel Transdermal 07/14/19 18 Active Ferrous Sulfate 324 (65 Fe) MG Tablet Delayed Release Oral 01/12/20 18 Active Ferrous Sulfate 325 (65 Fe) MG Tablet TAKE 1 TABLET TWICE DAILY Oral Active Doxycycline Hyclate 100 MG Capsule Oral 05/23/19 18 Active Naproxen 500 MG Tablet TK 1 T PO Q 8 H PRN P Oral 08/24/19 18 Active methylPREDNISolone 4 MG Tablet Therapy Pack Oral 10/01/19 19 Active Lumigan 0.01 % Solution Ophthalmic 06/29/19 18 Active Levothyroxine Sodium 112 MCG Tablet TAKE 1 TABLET DAILY DIRECTED. Oral Active traMADol HCl 50 MG Tablet TAKE 1 TABLET BY MOUTH EVERY 6 HOURS NEEDED FOR PAIN Oral Active Divalproex Sodium 500 MG Tablet Delayed Release Oral 11/05/19 18 Active Dicyclomine HCl 10 MG Capsule TAKE 1 CAPSULE EVERY 6 HOURS NEEDED. Oral 08/15/19 Active Topiramate 50 MG Tablet TAKE 1 TABLET TWICE DAILY. Oral Active Dicyclomine HCl 20 MG Tablet Oral 11/26/19 19 Active Depakote 500 MG Tablet Delayed Release TAKE 1 TABLET TWICE DAILY WITH MEALS. Oral Active tiZANidine HCl 4 MG Tablet TK 1 T PO TID PRN FOR MUSCLE SPASMS Oral 08/24/19 18 Active Cyclobenzaprine HCl 10 MG Tablet TAKE 1 TABLET TWICE DAILY NEEDED. Oral Active Clindamycin HCl 300 MG Capsule Oral 06/22/19 18 Active Citalopram Hydrobromide 40 MG Tablet Oral 03/02/20 17 Active Cephalexin 500 MG Capsule Oral 07/14/19 19 Active Spironolactone 25 MG Tablet Oral 03/02/20 17 Active Simvastatin 20 MG Tablet TAKE 1/2 TABLET DAILY. Oral Active Azithromycin 250 MG Tablet Oral 04/20/19 18 Active Atorvastatin Calcium 40 MG Tablet Oral 03/02/20 17 Active Promethazine HCl 25 MG Tablet TAKE 1 TABLET EVERY 8 HOURS PRN nausea Oral Active predniSONE 5 MG Tablet Oral 06/02 19 Active Amoxicillin 500 MG Capsule Oral 03/07/20 18 Active predniSONE 10 MG Tablet Oral 02/04/20 18 Active ALPRAZolam 0.5 MG Tablet Oral 11/05/19 18 Active ALPRAZolam 1 MG Tablet TAKE 1 TABLET EVERY 12 HOURS NEEDED. Oral Active levETIRAcetam 1000 MG Tablet Oral 02/18/20 17 Active predniSONE 20 MG Tablet Oral 05/23/19 18 Active levETIRAcetam 500 MG Tablet Oral 02/12/20 17 Active Lasix 40 MG Tablet TAKE 1 TABLET DAILY. Oral Active Allopurinol 300 MG Tablet Oral 03/02/20 17 Active Ibuprofen 600 MG Tablet Oral 08/23/19 20 Active Potassium Chloride 10 MEQ Tablet Extended Release TAKE 1 TABLET DAILY WITH FOOD. Oral *please review for potential update for e-prescription and drug interaction check* Active Phenytoin Sodium Extended 100 MG Capsule Oral 03/02/20 17 Active PEG 3350-KCl-Na Bicarb-NaCl 420 GM Solution Reconstituted Oral 05/06/19 18 Active Pantoprazole Sodium 40 MG Tablet Delayed Release Oral 01/12/20 18 Active Acetaminophen-Codeine #3 300-30 MG Tablet TK 1 T PO Q 6 H PRN P Oral 08/24/19 18 Active oxyCODONE-Acetaminophe n 7.5-325 MG Tablet Oral 09/21/19 20 Active oxyCODONE-Acetaminophe n 10-325 MG Tablet Oral 03/23/20 17 Active Ondansetron HCl 4 MG Tablet Oral 11/26/19 19 Active Ondansetron 4 MG Tablet Disintegrating Oral 04/06/20 17 Active HYDROcodone-Acetaminop hen 5-325 MG Tablet Oral 07/09/19 18 Active Potassium Chloride ER 10 MEQ Tablet Extended Release Oral 01/21/20 18 Active HYDROcodone-Acetaminop hen 10-325 MG Tablet Oral 06/16/19 18 Active Methotrexate Sodium (PF) 50 MG/2ML Solution Injection 02/04/20 18 Active Social History Sex Observation Social History Observation Description Sex Observation Female Plan Of Treatment No Information Insurance Providers Payer Name Payer Address Payer Phone Subscriber Number Group Number Insured Name Patient Relationship to Insured Coverage Start Date Coverage End Date Medicare [place] [id number] [address] [place] [phone] [id number] BARRY VAN Self - patient is the insured Medical (General) History Surgical History Surgery Date(Month/Year) Hysterectomy ,Status : Resolved Breast Surgery ,Status : Resolved Gastric Surgery ,Status : Resolved Eye Surgery ,Status : Resolved Cholecystectomy ,Status : Resolved Cataract Surgery ,Status : Resolved Appendectomy ,Status : Resolved Foot Surgery ,Status : Resolved
--- OUTSIDE RECORDS SUMMARY | 2025-03-27 05:13 | XMS_ITS | Patient Health Record ---
Author Organization [facility] D[facility] Address [address] [place] [address] Care Team Providers Care Credit Control Clerk Name Role Phone Mariusz Chayo Primary Care Provider El Brewer [phone] Allergies Allergen (clinical drug ingredient) Drug/Non Drug [...] Status Risk Notes Problem Shortness of breath (585726094) Shortness of breath (R06.02) Active confirmed Problem Anxiety (43207456) Anxiety (F41.9) Active confirmed Problem Abnormal PFT: MV V reduced disproportionate to FEV1 (R94.2) Active confirmed Problem Peripheral edema (16785991) Peripheral edema (R60.9) Active confirmed Problem Restless legs syndrome (05626472) Restless leg syndrome (G25.81) Active confirmed Problem Pulmonary hypertension (29535214) Pulmonary hypertension (I27.20) Active confirmed Problem Benign neoplasm of cerebral meninges (03923631) Meningioma (D32.9) Active confirmed Problem Hypokalemia (10915030) 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
--- OUTSIDE RECORDS SUMMARY | 2025-03-27 05:13 | XMS_ITS | Continuity of Care Document ---
Author Organization [facility] Job Sheriff, [facility] ([facility]) Address [address] [place] [address] Care Team Providers Care Skilled Nursing Facilities Professional Name Role Phone KIERAN VO Primary Care Provider Unavailabl e Assessment No assessment recorded. Plan of Treatment Reminders Order Date Submit Date Provider Last Modified By Organization Details Last Modified Time Details Appointments OFFICE VISIT 2025 02:00P Anny VO PA-C Not available [...] more view No observ ation record ed. [facility] [address] [place], [address], 03/25/2025 12:54:51 Result Notes None recorded. Problems Name Problem SNOMED Code Status Onset Date Resolution Date Notes Provider Name and Address Organization Details Recorded Time Hand pain 28803225 Completed 202205/14/[address] [facility] 07:55:21 Hand pain 07928725 Completed 202205/14/[address] [facility] 07:55:15 Low back pain 467378338 Completed 202305/14/2024 NICOLE gustafson, [facility], DianeCHarjeet 5 18:20:21 Deep venous thrombosi s of lower extremity 495784240 Completed 202305/14/2024 at [facility] non occlusi ve. IVC placed due to no able to take blood thinner s. NICOLE gustafson, [facility], RodgerLHarjeetCHarjeet 5 07:54:08 Chronic pain 91496402 Active 2023 NICOLE gustafson, [facility], DianeCHarjeet 5 07:54:43 Hospital inpatient stay within past 30 days [id number] 06 Completed 202305/14/2024 NICOLE gustafson, [facility], RodgerLHarjeetCHarjeet 5 07:55:38 History of cervical spine fusion 38831277377 01 Completed 202305/14/2024 NICOLE gustafson, [facility], RodgerLHarjeetCHarjeet 5 07:55:29 Hypothyro idism 26878160 Active [address] [facility], RodgerLHarjeetCHarjeet 5 07:55:43 Depressiv e disorder 10580999 Active 2023 NICOLE gustafson, [facility], LHarjeetL.CHarjeet 5 07:54:53 Gastroeso phageal reflux disease without esophagit is 122194644 Active 2023 NICOLE gustafson, [facility], LHarjeetL.CHarjeet 5 07:55:09 Anxiety 21723002 Active [address] [facility], LHarjeetL.C. 5 07:54:40 Rib pain 211138410 Completed 202305/14/2024 NICOLE HADENISE null, [facility] 5 07:57:21 Nausea 792176196 Completed 202305/14/2024 [facility] 07:55:56 Peptic ulcer 38642668 Completed 202305/14/2024 NICOLE HAEFFEDD null, [facility] 5 07:57:13 Pain in bilateral legs 73889735179 019758 Completed 202305/14/2024 [facility]D [facility] 5 07:56:52 Pain in left lower limb 847376755 Completed 202305/14/2024 NICOLE HAEFFNER null, [facility] 5 07:57:01 Acquired dilation of bile duct 34290557568 97025 Completed 202305/14/2024 NICOLE HAEFFEDD null, [facility] 5 07:54:30 Deep venous thrombosi s 020941084 Completed 202305/14/2024 NICOLE HAEFFNER null, [facility] 5 07:54:50 Anemia 039183517 Active 2023 NICOLE HAEFFEDD null, [facility] 5 07:54:37 Pain in right arm 617903615 Completed 202305/14/2024 NICOLE HAEFFEDD null, [facility] 5 07:57:07 Right upper quadrant pain 747559104 Completed 202305/14/2024 NICOLE gustafson, [facility] 5 07:57:36 Nausea and vomiting 34834619 Completed 202305/14/20[facility] 07:56:02 Edema 307716707 Completed 202305/14/2024 NICOLE CRANE null, [facility] 5 07:54:58 Rheumatoi d arthritis 16810965 [facility] 20[facility] 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 5 08:05:04 Low back pain 970046685 [facility] 20[facility] 5 18:20:21 Restless legs syndrome 10856208 Active 2024 NICOLE gustafson, [facility] 5 18:20:23 Chronic insomnia 091587170 Active 2024 NICOLE ROSA MARIA null, [facility] 5 18:31:19 Retention of urine 543037165 Active 2024 [facility] 5 14:49:35 Problem Notes None recorded. Procedures Surgical History Date Name Laterality Status Provider Name and Address Organization Details Recorded Time 09/14/ 2025 fluoroscopic angiography of coronary artery with contrast and insertion of stent completed NICOLE CRANE [facility] L[facility]CH[facility]et 5 18:02:58 2024 plain X-ray of chest completed PAULETTE EREN [facility], LHarjeetL.CHarjeet 5 00:10:[address] of abdomen and pelvis completed PAULETTE JASON [facility] L.L.CH[facility]jeet 5 00:12:33 2023 insertion of arterial stent completed JER VO PA-C [address] [place], [address], [facility] 4 15:12:39 2023 colonoscopy completed KIERAN VO PA-C [address] [place], [address], [facility] 4 17:29:05 2023 esophagogastroduodenoscopy completed KIERAN VO PA-C [address] [place], [address], [facility] 4 17:08:01 2023 ultrasonography of liver completed NICOLE CRANE [facility] 4 16:43:05 2023 primary posterior decompression cervical cord and fusion completed KIERAN VO PA-C [address] [place], [address], [facility] 4 13:58:12 2023 insertion of inferior vena caval filter completed KIERAN VO PA-C [address] [place], [address], [facility] 4 13:58:28 2022 primary fusion of cervical spine completed KIERAN VO PA-C [address] [place], [address], [facility] L.L.CHarjeet 3 12:50:26 Imaging Results None recorded. Procedure Notes None recorded. Medical Equipment None Reported. Allergies Allergen ID Allergen Name Allergen Category Reaction Reaction Severity Criticality Documentation Date Start Date Code Code System Note Provider Name and Address Organization Details Recorded Time 63203 Benadryl medicatio n Not available Not available Not available 03/12/2023 [address] [facility]et 3 12:01:01 81396 amitripty line medicatio n Not available Not available Not available 03/12/[address] [facility] L[facility]L.CH[facility]jeet 3 12:01:37 91669 tizanidin e medicatio n Not available Not available Not available 03/12/[address] [facility] 3 12:08:21 09857 morphine medicatio n confusion Not available [facility] 09/02/2023 7052 RxNorm KIERAN VO PA-C [address] [place], [address], [facility] L.L.CHarjeet 4 15:15:03 49117 venlafaxi ne medicatio n itching Not available Not available 02/13/2025 29540 RxNorm NICOLE ROSA MARIA gustafson [facility] 5 14:50:24 91142 ibuprofen medicatio n Not available Not available unabletoasse ss 02/23/2025 5640 RxNorm Not Available wanda - External Data Service - prod 5 09:45:37 54362 acetamino phen medicatio n Not available Not available unabletoasse ss 02/23/2025 161 RxNorm Not Available wanda - External Data Service - [facility] 5 09:45:37 27753 prochlorp erazine medicatio n Not available Not available [facility] 02/23/2025 8704 RxNorm Not Available wanda - External Data Service - [facility] 5 09:45:37 93247 diphenhyd ramine medicatio n Not available [facility] 02/23/2025 3498 RxNorm unrec ogniz ed react ion (text : Hyper activ e behav ior (find ing), code: 54576 000) (from exter nal sour e) Not Available [facility] External Data Service - [facility] 5 09:45:37 50422 leflunomi de medicatio n Not available Not available [facility] 02/23/20252024 51920 RxNorm Not Available wanda - External Data Service - [facility] 5 09:45:40 16980 sulfasala zine medicatio n Not available Not available [facility] 02/23/20252024 9524 RxNorm Not Available wanda - External Data Service - [facility] 5 09:45:40 19944 metoclopr amide Not available Not available Not available Not available 03/12/2025 6915 RxNorm Not Available [facility] External Data Service - [facility] 5 15:33:31 33411 sumatript an medicatio n Not available Not available Not available 03/15/2025 30004 RxNorm Not Available [facility] External Data Service - [facility] 5 07:31:55 Medications Name Sig Start Date [...] Last Updated DateTime 163.83 cm 23.5 kg/m2 37099.3 4 g 95 % 70 /min 18 /min 97.9 [degF] 120/70 mm[Hg] NICOLE CRANE [facility] 14:19:08 Social History Question Answer Notes LastModified by Organizat ion Details LastModified Time Tobacco Smoking Status Former Smoker Irene gustafson [facility] 09/05/2023 15:56:32 Which Illicit Or Recreational Drugs Have You Used? Leilani [email or web address] Information not available 11/02/2024 What Was The Date Of Your Most Recent Tobacco Screening? 03/22/2025 [email or web address] Information not available 03/22/2025 At What Age Did You Start Smoking Tobacco? 49 For 3 Weeks Only [email or web address] Information not available 11/02/2024 Sex: Unknown Functional Status Question Answer Note LastModified by Organizat ion Details LastModified Time Do you use any illicit or recreational drugs? Yes [email or web address] Information not available 11/02/2024 What is your level of alcohol consumption? None [email or web address] Information not available 11/02/2024 Mental Status None recorded. Family History Nothing Reported. Medical History No medical history recorded. Gynecological HistoryNo gynecological history recorded. Obstetrics History GPAL:G 0 P 0 0 0 0 Immunizations Vaccine Type Date Status Note Provider Nam e and Address Organization Details Recorded Time COVID-19, mRNA, LNP-S, PF, errol-sucrose, 30 mcg/0.3 mL [address] [facility] 11/12/2023 15:11:33 Influenza, split virus, trivalent, PF 4 completed Not Available [facility] 03/15/2025 14:19:55 Influenza, adjuvanted, trivalent, PF 5 completed Not Available [facility] 03/15/2025 14:19:55 Pneumococcal conjugate PCV20, polysaccharide [id number] conjugate, adjuvant, PF [address] [facility] 05/24/2024 16:17:51 Past Encounters Encounter ID Performer Location Encounter Start Date Encounter Closed Date Diagnosis/Indication Diagnosis SNOMED-CT Code Diagnosis ICD10 Code Diagnosis IMO Codes Diagnosis Note [id number] KIERAN VO PA-C [facility] ([facility]) [address] [place] [address] 01/11/2025 14:06:00 01/12/2025 08:44:46 Multi vessel coronary artery disease 617807638 I25.10 9476820 recent stents x 2 back to back. 01/04 need one year of dual plt asa and plavix therapy for 1 yr. Post-disch arge follow-up 935984398 Z09 179904 Exposure t o SARS-CoV-2 583614048 Z20.822 8110923671 pt left without being tested. Upper gastrointestinal bleeding 97172043 K92.2 626196 scope 03/[address] Ruiz. Scope 01/05/25 at [facility] small area of bleeding. needs plavix and ASA due to stent on 12/27/24 Health Concerns Section Related Observation LastModified by Organization Detai ls LastModified Time None Recorded Concern Status LastModified by Organization Details LastModified Time None Recorded Payers Encounter Date Sequence Insurance Name Policy Number Policy Rivera Covered Member ID Rivera Member ID Guarantor Name 01/11/2025 1 [place] [employer] Tosha Enamorado Ranew [id number] Tosha Rancary 01/11/2025 2 [employer] (MEDICARE SUPPLEMENT) Tosha Ranew [id number] Tosha Perry Notes Date Note Type Note [...] they saw no pneumonia KIERAN VO PA-C [address] [place], [address], [place] [facility] 01/11/2025 18:13:05 OBGyn Episode No OBEpisode recorded.
[2025-03-27] MEDS: ondansetron 2 mg/ML SDV 2 mL 4 MG IVP (05:44)
[2025-03-27 05:55] LABS: Hematocrit 29.5 % (36-47); Hemoglobin 9.60 g/dL (11.27-16.99); Mean Corpuscular HGB Conc 32.5 g/dL (30-55); Mean Corpuscular Hemoglobin 27.0 pg (27-33); Mean Corpuscular Volume 82.9 fl (85-98); Nucleated Red Blood Cells % 0 %; Platelet Count 289 10^3/cmm (157-399); Red Blood Count 3.56 10^6/uL (3.85-5.65); White Blood Count 6.09 10^3/uL (3.29-11.43)
[2025-03-27 06:00] VITALS: BP 96/70; PULSE 62; O2SAT 95
[2025-03-27 06:12] LABS: Troponin(5th) Baseline 30 ng/L (0-10)
[2025-03-27 06:13] LABS: Lactic Sepsis W/Reflex 1.7 mmol/L (0.5-2.2)
--- NOTE | 2025-03-27 06:15 | W.ED.CHESTPA ---
HPI - Chest Pain General: Chief Complaint: Chest Pain Stated Complaint: chest pain Time Seen by Provider: 03/27/25 05:08 Source: patient Mode of arrival: ambulatory Limitations: no limitations History of Present Illness: 70-year-old female states she started having chest pain at 3:30 AM. Patient has a history of multiple medical issues is well-known to the ER. States pains sharp pain in the center of her chest has been having some vomiting as well. She denies any shortness of breath denies any worsening improving factors denies any cough or fever Related Data Home Medications ?Medication ?Instructions ?Recorded ?Confirmed fluticasone propionate 50 1 spray intranasal BID PRN 09/27/23 03/15/25 mcg/actuation nasal allergies spray,suspension oxycodone 10 mg tablet 10 mg PO Q8H PRN Pain 12/29/23 03/15/25 ramelteon 8 mg tablet 8 mg PO BEDTIME 12/24/24 03/15/25 promethazine 25 mg tablet 25 mg PO Q6H PRN Nausea 01/03/25 03/15/25 lidocaine 5 % topical patch 1 patch topical [id number] PRN Pain 01/05/25 03/15/25 aspirin 81 mg tablet,delayed 81 mg PO DAILY 02/14/25 03/15/25 release atorvastatin 40 mg tablet 40 mg PO BEDTIME 02/14/25 03/15/25 folic acid 1 mg tablet 1 mg PO DAILY 02/14/25 03/15/25 furosemide 20 mg tablet 40 mg PO QAM 02/14/25 03/15/25 nitroglycerin 0.4 mg sublingual See Rx Instructions .Route .COMPLEX 02/14/25 03/15/25 tablet furosemide 40 mg tablet 40 mg PO DAILY 03/07/25 03/15/25 Previous Rx's ?Medication ?Instructions ?Recorded Bone growth stimulator #1 ea 01/22/23 Bone growth stimulator #1 ea 02/05/23 tens unit for cervical #1 ea 12/16/23 insulin syringes (disposable) 1 mL #25 ea 05/30/24 ropinirole 5 mg tablet 5 mg PO BID #270 tabs 10/25/24 baclofen 10 mg tablet 5 mg (1/2 x 10 mg) PO Q12H PRN 11/07/24 Muscle Spasm #30 tabs clopidogrel 75 mg tablet 75 mg PO DAILY 30 days #30 tabs 12/26/24 pantoprazole 40 mg tablet,delayed 40 mg PO Q12H 30 days #60 tabs 12/26/24 release (Protonix) potassium chloride 20 mEq 20 meq PO DAILY #30 tabs 12/26/24 tablet,extended release ranolazine 500 mg tablet,extended 500 mg PO BID #180 tabs 01/01/25 release,12 hr albuterol sulfate 90 mcg/actuation 2 inh inhalation Q4H PRN shortness 01/03/25 aerosol inhaler of breath or wheezing #18 grams adalimumab 40 mg/0.4 mL 40 mg (0.4 mL) SUBCUT Q14D #2 ea 02/07/25 subcutaneous syringe kit (Humira(CF)) levothyroxine 125 mcg tablet 125 mcg PO DAILY #30 tabs 02/13/25 ferrous sulfate 325 mg (65 mg 325 mg PO DAILY #90 tabs 03/09/25 iron) tablet (Iron (ferrous sulfate)) gabapentin 300 mg capsule 200 mg (0.6667 x 300 mg) PO TID 90 03/09/25 days #180 caps sucralfate 1 gram tablet 1 g PO Q6H 60 days #240 tabs 03/09/25 buspirone 7.5 mg tablet 7.5 mg PO BID #60 tabs 03/15/25 ondansetron 4 mg disintegrating 4 mg PO Q6H PRN nausea and 03/27/25 tablet vomiting #14 tabs potassium chloride 40 mEq/15 mL 40 meq (15 mL) PO BID 5 days #150 03/27/25 oral liquid mL Allergies Allergy/AdvReac Type Severity Reaction Status Date / Time venlafaxine (From Effexor) Allergy Severe ADR-Agitate Verified 01/18/25 12:50 d ibuprofen Allergy Unknown ADR-Anxiety Verified 01/18/25 12:50 tizanidine Allergy Unknown Unknown Verified 01/18/25 12:50 acetaminophen Allergy ADR-Anxiety Verified 01/18/25 12:50 amitriptyline Allergy ADR-Agitate Verified 01/18/25 12:50 d diphenhydramine (From Allergy ADR-Agitate Verified 01/18/25 12:50 Benadryl) d metoclopramide (From Reglan) Allergy ADR-Agitate Verified 03/15/25 08:01 d morphine Allergy ADR-Halluci Verified 01/18/25 12:50 nating prochlorperazine (From Allergy Unknown Verified 01/18/25 12:50 Compazine) leflunomide AdvReac Intermediate GI adverse Verified 01/18/25 12:50 reactions sulfasalazine AdvReac Intermediate ADR-Nausea Verified 01/18/25 12:50 and acid reflux Review of Systems Card: Reports: chest pain PFS ED PFSH: Medical History (Updated 03/27/25 @ 09:30 by Coral Oconnor MD) Hypothyroidism Rheumatoid arthritis flare Coronary artery disease involving [place] coronary artery of [place] heart without angina pectoris Pneumonia DVT (deep venous thrombosis) Acute GI bleeding History of deep vein thrombosis GERD (gastroesophageal reflux disease) Pre-operative clearance Acute anemia Hematoma complicating a procedure Cervical adenopathy GI bleed Osteoarthritis, shoulder Cervical spondylosis with myelopathy GERD with esophagitis Allergic rhinitis due to allergen RLS (restless legs syndrome) Substance or medication-induced sleep disorder, insomnia type Anxiety and depression High risk medication use Seropositive rheumatoid arthritis of multiple sites Extrapyramidal and movement disorder CKD (chronic kidney disease) stage 3, GFR 30-59 ml/min Lung nodule, solitary Prediabetes Hyperlipidemia Iron deficiency anemia Surgical History S/P insertion of IVC (inferior vena caval) filter Status post cervical spinal fusion History of cholecystectomy History of appendectomy History of delivery History of hysterectomy with bilateral oophorectomy History of ankle surgery left Previous back surgery Social History Smoking and tobacco/nicotine status: former use of tobacco/nicotine Quit status (tobacco/nicotine): has quit using Year quit tobacco: 2009 Former quit date comment: Smoked for 9 months Alcohol intake: current Alcohol intake frequency: holidays/special occasions only Substance/Drug Use: never Additional social history: Patient tells me that after her accident she is chronically on oxycodone 10 mg 3 times daily. She is recently full code on 12/24/2024 admission Physical Exam Const: COMMON NORMALS: no acute distress, patient oriented x3 and healthy appearing HENMT: COMMON NORMALS: normocephalic and atraumatic HEAD & SCALP: normocephalic and atraumatic Eye: COMMON NORMALS: Equal, round and reactive pupils present and EOMs intact bilaterally PUPIL: Yes Equal, round and reactive pupils present Neck/C-Spine: COMMON NORMALS: full ROM and supple Chest: COMMONS NORMALS: normal inspection of the chest and normal palpation of entire chest wall Resp: COMMON NORMALS: normal respiratory effort, No retractions, No use of accessory muscles and clear to auscultation bilaterally AUSCULTATION: clear to auscultation bilaterally Cardio: COMMON NORMALS: regular rate, regular rhythm and No murmurs present (Cardio) RATE: regular rate RHYTHM: regular rhythm GI: COMMON NORMALS: Normal to inspection, nondistended, normoactive bowel sounds present, Soft to palpation, non-tender and no masses PALPATION: Yes Soft to palpation Extremity: COMMON NORMALS: normal to inspection and full ROM Neuro: COMMON NORMALS: patient oriented x3, moves all extremities and no focal motor deficits Psych: COMMON NORMALS: mental status grossly normal, Normal thought process present and cooperative THOUGHT PROCESS: Normal thought process present Skin: COMMON NORMALS: no rashes or lesions noted and no wounds GENERAL SKIN EXAM: no rashes or lesions noted Course Vital Signs: Vital signs: Vital Signs Temperature 98.3 F 03/27/25 05:04 Pulse Rate 49 L 03/27/25 07:08 Respiratory Rate 16 03/27/25 07:08 Blood Pressure 87/43 03/27/25 07:08 Pulse Oximetry 90 03/27/25 07:08 Oxygen Delivery Me thod Room Air 03/27/25 06:43 MDM - Chest Pain Medical Decision Making 30-year-old female presents here with chest pain differential includes ACS, pulm emboli, aortic section, pneumothorax. Chest x-ray was interpreted by me showed no acute findings. Patient's 2-hour delta was negative her labs are at her baseline had some mild hypokalemia at 2.7 did give her a dose of potassium here and will prescribe her potassium supplement for home. Her chest pain is atypical in nature no signs of ACS here. She has no signs of pulm emboli her pain has improved she stable for discharge follow-up PCP return if worsening. EKG interpreted by me at 0513 normal sinus rhythm heart rate [address] elevation QRS 88 QTc 363 Medical Records I reviewed the patient's medical records. Lab Data I reviewed the patient's lab results. 03/27/25 05:48 03/27/25 06:27 Radiology Impressions Chest X-Ray 03/27/25 05:11 IMPRESSION: No acute findings. Laboratory Results WBC 6.09 10^3/uL (3.29-11.43) 03/27/25 05:48 RBC 3.56 10^6/uL (3.85-5.65) L 03/27/25 05:48 Hgb 9.60 g/dL (11.27-16.99) L 03/27/25 05:48 Hct 29.5 % (36-47) L 03/27/25 05:48 MCV 82.9 fl (85-98) L 03/27/25 05:48 MCH 27.0 pg (27-33) 03/27/25 05:48 MCHC 32.5 g/dL (30-55) 03/27/25 05:48 RDW 14.4 % (12.1-15.1) 03/27/25 05:48 Plt Count 289 10^3/cmm (157-399) 03/27/25 05:48 MPV 10.2 fL (7.4-10.4) 03/27/25 05:48 Neut % (Auto) 64.7 % 03/27/25 05:48 Lymph % (Auto) 23.5 % 03/27/25 05:48 Swift % (Auto) 9.5 % 03/27/25 05:48 Eos % (Auto) 1.8 % 03/27/25 05:48 Baso % (Auto) 0.3 % 03/27/25 05:48 Neut # (Auto) 3.94 10^3/uL (1.8-7.7) 03/27/25 05:48 Lymph # (Auto) 1.4 10^3/uL (0.8-4.8) 03/27/25 05:48 Swift # (Auto) 0.6 10^3/uL (0.2-0.9) 03/27/25 05:48 Eos # (Auto) 0.1 10^3/uL (0.0-0.8) 03/27/25 05:48 Baso # (Auto) 0.0 10^3/uL (0.0-0.1) 03/27/25 05:48 Nucleated RBC % (auto) 0 % 03/27/25 05:48 Nucleated RBCs # 0.0 /100WBC 03/27/25 05:48 Sodium 135 mmol/L (136-145) L 03/27/25 06:27 Potassium 2.7 mmol/L (3.5-5.1) L* 03/27/25 06:27 Chloride 88 mmol/L (98-107) L 03/27/25 06:27 Carbon Dioxide 28 mmol/L (22-29) 03/27/25 06:27 Anion Gap 21.7 (5-19) H 03/27/25 06:27 BUN 42 mg/dL (8-23) H 03/27/25 06:27 Creatinine 2.6 mg/dL (0.5-0.9) H 03/27/25 06:27 GFR Calculation Not Reportable 03/27/25 06:27 Glucose 115 mg/dL (65-115) 03/27/25 06:27 Calculated Osmolality 291 mOsm/kg (285-295) 03/27/25 06:27 Lactic Acid 1.7 mmol/L (0.5-2.2) 03/27/25 05:48 Calcium 8.6 mg/dL (8.5-10.5) 03/27/25 06:27 Phosphorus 4.1 mg/dL (2.5-4.5) 03/27/25 06:27 Magnesium 2.1 mg/dL (1.7-2.3) 03/27/25 06:27 Total Bilirubin 0.5 mg/dL (0.15-1.2) 03/27/25 06:27 AST 33 U/L (0-32) H 03/27/25 06:27 ALT 9 U/L (0-33) 03/27/25 06:27 Alkaline Phosphatase 148 U/L (35-105) H 03/27/25 06:27 Troponin T Baseline 30 ng/L (0-10) H 03/27/25 05:48 Troponin T 60 Minute 27.84 ng/L (0-10) H 03/27/25 06:27 Delta Troponin T -2.16 ABS# (0-10) L 03/27/25 06:27 C-React Prot High Sens 8.600 mg/dL (0.0-0.3) H 12/16/25 06:27 NT-Pro-B Natriuret Pep 1324 pg/mL (0-125) H 03/27/25 06:27 Total Protein 8.0 g/dL (6.6-8.7) 03/27/25 06:27 Albumin 4.0 g/dL (3.5-5.2) 03/27/25 06:27 Globulin 4.0 g/dL (1.3-4.6) 03/27/25 06:27 Lipase 16 U/L (13-60) 03/27/25 06:27 All radiology interpretation(s) finalized by discharge Discharge Plan Discharge Patient Disposition: Home Clinical Impression: Atypical chest pain, Hypokalemia Condition: Stable Prescriptions: New potassium chloride 40 mEq/15 mL liquid 40 meq PO BID 5 Days Qty: 150 0RF ondansetron 4 mg tablet,disintegrating 4 mg PO Q6H PRN (Reason: nausea and vomiting) Qty: 14 0RF No Action (DME) tens unit for cervical See Rx Instructions .Route .MEDSUPPLY Qty: 1 0RF Rx Instructions: As directed (DME) Bone growth stimulator See Rx Instructions .Route .MEDSUPPLY Qty: 1 0RF Rx Instructions: As directed (DME) Bone growth stimulator See Rx Instructions .Route .MEDSUPPLY Qty: 1 0RF Rx Instructions: As directed (DME) insulin syringes (disposable) 1 mL syringe See Rx Instructions .ROUTE .MEDSUPPLY Qty: 25 3RF Rx Instructions: As directed Humira(CF) 40 mg/0.4 mL syringe kit 40 mg SUBCUT Q14D Qty: 2 5RF levothyroxine 125 mcg tablet 125 mcg PO DAILY Qty: 30 0RF oxycodone 10 mg tablet 10 mg PO Q8H PRN (Reason: Pain) ropinirole 5 mg tablet 5 mg PO BID Qty: 270 0RF ramelteon 8 mg tablet 8 mg PO BEDTIME clopidogrel 75 mg tablet 75 mg PO DAILY 30 Days Qty: 30 0RF pantoprazole [Protonix] 40 mg tablet,delayed release (DR/EC) 40 mg PO Q12H 30 Days Qty: 60 0RF potassium chloride 20 mEq tablet extended release 20 meq PO DAILY Qty: 30 0RF promethazine 25 mg tablet 25 mg PO Q6H PRN (Reason: Nausea) albuterol sulfate 90 mcg/actuation HFA aerosol inhaler 2 inh INHALATION Q4H PRN (Reason: shortness of breath or wheezing) Qty: 18 0RF lidocaine 5 % adhesive patch,medicated 1 patch topical [id number] PRN (Reason: Pain) furosemide 20 mg tablet 40 mg PO QAM atorvastatin 40 mg tablet 40 mg PO BEDTIME aspirin 81 mg tablet,delayed release (DR/EC) 81 mg PO DAILY nitroglycerin 0.4 mg tablet, sublingual See Rx Instructions .ROUTE .COMPLEX Rx Instructions: DISSOLVE 1 TABLET UNDER THE TONGUE EVERY 5 MINUTES NEEDED FOR CHEST PAIN. DO NOT EXCEED A TOTAL OF 3 DOSES IN 15 MINUTES. folic acid 1 mg tablet 1 mg PO DAILY furosemide 40 mg tablet 40 mg PO DAILY sucralfate 1 gram Tablet 1 g PO Q6H 60 Days Qty: 240 0RF gabapentin 300 mg capsule 200 mg PO TID 90 Days Qty: 180 0RF ferrous sulfate [Iron (ferrous sulfate)] 325 mg (65 mg iron) tablet 325 mg PO DAILY Qty: 90 0RF fluticasone propionate 50 mcg/actuation spray,suspension 1 spray INTRANASAL BID PRN (Reason: allergies) baclofen 10 mg tablet 5 mg PO Q12H PRN (Reason: Muscle Spasm) Qty: 30 0RF ranolazine 500 mg Tablet Extended Release 12 Hr 500 mg PO BID Qty: 180 0RF buspirone 7.5 mg tablet 7.5 mg PO BID Qty: 60 0RF Discharge Orders: Discharge ED (Routine); Ordered 03/27/25 Ordered By: Coral Oconnor Referrals: Diana Garcia PA [Primary Care Provider, [facility]] Discharge Diet: Advance as tolerated Discharge Activity: Resume usual activity Patient Instructions: Chest Pain (ED), Hypokalemia (ED) Print Language: French Coding Level of Care Code ED Hospitality Specialist for Chg Fwd Heart Score HEART Score Components History: Slightly Suspicous EKG: Normal Age: 65 or more yrs Risk Factors: 1 or 2 Risk Factors Troponin: Baseline Trop 16-45 ng/L HEART Score RESULT HEART Score: 4
[2025-03-27 06:43] VITALS: BP 101/60; PULSE 53; O2SAT 91
[2025-03-27 07:05] LABS: Lipase 16 U/L (13-60); Magnesium 2.1 mg/dL (1.7-2.3); NT Pro B Type Natriuretic Pept 1324 pg/mL (0-125)
[2025-03-27 07:08] VITALS: BP 87/43; PULSE 49; RESP 16; O2SAT 90
[2025-03-27 07:44] LABS: CRP High Sensitivity Cardiac 8.600 mg/dL (0.0-0.3)
[2025-03-27] MEDS: LORazepam 2 mg/mL INJ 1 mL 1 MG IVP (08:27)
[2025-03-27 08:30] VITALS: BP 104/56; PULSE 68; O2SAT 92
[2025-03-27 08:30] LABS: Alanine Aminotransferase 9 U/L (0-33); Albumin Level 4.0 g/dL (3.5-5.2); Alkaline Phosphatase 148 U/L (35-105); Blood Urea Nitrogen 42 mg/dL (8-23); Calcium 8.6 mg/dL (8.5-10.5); Carbon Dioxide 28 mmol/L (22-29); Chloride 88 mmol/L (98-107); Globulin 4.0 g/dL (1.3-4.6); Glucose 115 mg/dL (65-115); Osmolality Calculated 291 mOsm/kg (285-295); Sodium 135 mmol/L (136-145); Total Protein 8.0 g/dL (6.6-8.7)
[2025-03-27 08:32] LABS: Anion Gap 21.7 (5-19); Aspartate Amino Transferase 33 U/L (0-32)
[2025-03-27 08:33] LABS: Potassium 2.7 mmol/L (3.5-5.1)
[2025-03-27] MEDS: HYDROcodone-acetaminophen 5-325 mg Tablet 1 TAB PO (10:32)
[2025-03-27 10:42] VITALS: BP 108/89; PULSE 59; O2SAT 96
--- NOTE | 2025-03-27 10:59 | PC.NURSE ---
attempted to d/c pt, as this RN was administering patients po k+ pt asked for pain medication. this RN told patient that provider was in a critical situation and i would discuss this with him as soon as possible and pt states 'im critical too, ugh i just want to strangle him.'
== END 2025-03-27 10:42 | disposition home or self-care (01) ==
PROVIDERS: Student in an Organized Health Care Education/Training Program; Emergency Provider Emergency Medicine; PCP Physician Assistant
DX: R07.89 Other chest pain (principal); E87.6 Hypokalemia; Z79.02 Long term (current) use of antithrombotics/antiplatelets; Z79.82 Long term (current) use of aspirin; Z87.891 Personal history of nicotine dependence; I25.10 Atherosclerotic heart disease of native coronary artery without angina pectoris; E78.5 Hyperlipidemia, unspecified; N18.30 Chronic kidney disease, stage 3 unspecified
CPT/HCPCS: 36415; 71045; 80053; 83605; 83690; 83735; 83880; 84100; 84484; 85025; 86141; 93005; 96361; 96374; 96375; 99285; J2060; J2405; J7030; J9999

== ENCOUNTER 2025-04-08 06:17 | Emergency (ER) | payer MEDICARE, OTHER, SELFPAY ==
--- OUTSIDE RECORDS SUMMARY | 2019-11-06 03:51 | XMS_ITS | Continuity of Care Document ---
Author Organization [facility] Address [address] [place] [phone] Phone Care Team Providers Care Warehouse Associate Driver Name Role Phone Ponce Betts Unavailable Unavailable [...] - Active Procedures Procedure Date OFFICE/OUTPATIENT VISIT, [facility] INITIAL HOSPITAL CARE SUBSEQUENT HOSPITAL CARE EXTREMITY STUDY OFFICE/OUTPATIENT VISIT, EST PROTHROMBIN TIME EXTREMITY STUDY EXTREMITY STUDY INPATIENT CONSULTATION SUBSEQUENT HOSPITAL CARE Advance Directives Directive Yes / No Effective Date File Name No Information Encounters Encounter Description Practice Location Reason(s) For Visit Diagnoses Date Provider Providers Copied on Encounter [facility], [facility] [address], [id number], [place] tel: [phone] [facility] No Information 0 Alpesh Serra. [facility]0 [facility], [facility] [address], [place], [id number] , [place]. tel: [phone] Referring Provider: Deedee Lee, [facility], [place], [address]. tel:[phone] OFFICE/OUTPAT IENT VISIT, NEW [facility], [facility] [address], [id number], [place] tel: [phone] [facility] Left leg pain - ? vascular (chief complaint) Iron deficiency anemia due to chronic blood lossLower extremity pain, leftEssential hypertensionCh ronic dental caries extending to pulp 8 Milind Hernandez. [address] [facility], [address] [facility], [place], [place], [id number] , [place]. tel: [phone] Referring Provider: Deedee Lee, [address] [facility], [place], [address]. tel:[phone] [facility], [facility]0 [facility] [address], [id number], [place] tel:[phone] [facility] DiabetesBenign essential HTNTobacco use disorder 5 Kareem Kim . [address] [facility], [facility] [address], [place], [id number] , [place]. tel: [phone] Referring Provider: Otilio North, [address] [place] [address], [place], [address]. tel:[phone] [facility] [place], [facility]0 [facility] [address], [place], [id number], [place] tel: [phone] [facility] No Information 4 Milind Hernandez. [address] [facility], [address], [id number] , [place]. tel: [phone] INITIAL HOSPITAL CARE [facility], [address] [place] [address], [place], [place], [id number], [place] tel: [phone] [facility] Surgery No Information 2 Milind Hernandez. [facility] [address], [id number] , [place]. tel: [phone] Referring Provider: David Mccormick, [address] [place] [address], [place], [address]. tel: [phone] [facility], [address] [place] [address], [id number], [place] tel: [phone] [facility] No Information 1 Marino agudelo. [address] [place] [address], [id number] , [place]. tel: [phone] Referring Provider: Boyd Khoury, [facility]0 [place] [address], [place], [address]. tel: [phone] [facility], [address] [place] [address], [id number], [place] tel: [phone] [facility] No Information 1 Milind Hernandez. [facility] [address], [id number] , [place]. tel: [phone] Referring Provider: David Mccormick, [facility] [address], [address]. tel:[phone] OFFICE/OUTPAT IENT VISIT, EST [facility], [address] [place] [address], [id number], [place] tel:[phone] [facility] No Information 6201 0 Kareem Kim . [facility], [place] [address] [place] [address], [id number] , . tel: [phone] Referring Provider: David Mccormick, [address] [place] [address] [place] [address], [address]. tel:[phone] [facility], [address] [place] [address], [id number], tel:[phone] [facility] No Information 0 Milind Hernandez. [address] [place] [address], [id number] , . tel: [phone] Referring Provider: David Mccormick, [address] [place] [address], [address]. tel:[phone] [facility], [address] [place] [address], [id number], tel:[phone] [facility] No Information 0 Milind Hernandez. [address] [place] [address], [id number] , . tel: [phone] Referring Provider: Aramis Su, [address], [address]. tel:[phone] Family History Family Member Type Diagnosis Age At Onset Mother Problem (finding) hypertension Problem (finding) Family history of Cardiovascular disease / Mother Brother Problem (finding) Diabetes mellitus Problem (finding) Family history of coronary arteriosclerosis Payers Payer name Insurance type Covered constitution party ID Authoriza tion(s) [employer] Choice Medicare Plan [id number] Social History Type Description Quantity Date Captured Comments Alcohol Use Details Unknown Caffeine Use Details Unknown Tobacco Use Status No Information Smoking Status No Information Sex Female Chief Complaint And Reason For Visit No Information Reason For Referral Reason For Referral No Information Plan Of Treatment Date Type Action Status Goal Urinalysis . Due on due Goal ECG. Due on due Goal BMP. Due on due Goal Urine microalbumin. Due on due Goal Pneumococcal vaccine. Due on due Goal Influenza vaccine. Due on due Goal GFR. Due on due Goal Dilated eye exam. Due on Oct due Goal Depression screening. Due on due Goal Dental exam. Due on due Goal Lipid panel. Due on due Goal Foot exam. Due on 0 due Goal Hemoglobin A1C. Due on due Goal BMP. Due on due Goal Lipid panel. Due on 018 due Goal Foot exam. Due on 8 due Goal Hemoglobin A1C. Due on due Patient Education Heart-Healthy Diet: [...] ago after a car ride back to [place] from [facility]. Pain unrelenting - rest or walking radiating [...]
--- OUTSIDE RECORDS SUMMARY | 2024-07-17 03:30 | XMS_ITS ---
Author Organization [facility] Address [address] [place] [address] Care Team Providers Care Fraud Analyst Name Role Phone Diana Galvan Primary Care Provider Deedee Osei Unavailable [phone] Paxton Nobles Unavailable [phone] REASON FOR VISIT wants new mri Social History Sex Assigned At : Social History Observation Description Sex Assigned At Female Encounters Encounter Location Date Provider Diagnosis [facility] [place] [address] [address] 07/17/2024 Paxton Nobles Plan Of Treatment Next Appt Details Provider Name:Mode Cabello, 04/18/2025 09:00:00 AM, [address] [place], [address], Progress Notes * BARRY VAN SDOB:[birth year] (70 yo F)Acc No.[id number]:07/17/2024 Progress Notes Patient: BARRY LIVINGSTON Provider: Rosalia Nobles APRN :1955 A ge:69 Y S ex:Female Date:07/17/2024 Address:[address] [place] [address] [address], [place], [phone] Pcp:SHIV Chong Subjective: * Chief Complaints: * W ants new mri Billing Information: * Procedure Codes: Care Plan Details* * Electronic signature of Syed Nobles PARISH WORKER on 04/08/2025 at 06:23 AM INFUSION PHARMACIST Sign off status: Pending * Provider: Rosalia Nobles APRN Date: 0 07/17/2024 Generated for Shen lindo/Sindy/Chandler on: 1 06/09/2024 06:23 AM INFUSION PHARMACIST
--- OUTSIDE RECORDS SUMMARY | 2025-04-03 04:00 | XMS_ITS ---
Author Organization [facility] Address [address] [place] [address] Care Team Providers Care Bunch Maker Hand Name Role Phone Diana Galvan Primary Care Provider Deedee Osei Unavailable [phone] Mode Cabello Unavailable [phone] REASON FOR VISIT 2 month f/u with RK Medications Medication SIG (Take, Route, Frequency, Duration) Notes Start Date End Date Status oxyCODONE HCl 10 MG Tablet 1 tablet Orally every 8 hrs; Duration: 30 days As needed Do not exceed 3 per day Fill on 03/18/2025 02/16/2025 04/17/2025 Active Social History Sex Assigned At : Social History Observation Description Sex Assigned At Female Encounters Encounter Location Date Provider Diagnosis [facility] [address] [id number] 04/03/2025 Mode Cabello Chronic pain syndrom e G89.4 ; Other cervical disc degeneration, unspecified cervical region M50.30 ; Other spondylosis with radiculopathy, cervical region M47.22 ; Myalgia of auxiliary muscles, head and neck M79.12 ; Postlaminectomy syndrome, not elsewhere classified M96.1 ; Unspecified abnormalities of gait and mobility R26.9 and 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 Z79.891 Assessments Encounter Date Diagnosis (ICD Code) Assessment Notes Treatment Notes Treatment Clinical Notes Section Notes 04/03/2025 Chronic pain syndrome (ICD-10 - G89.4) 04/03/2025 Other cervical disc degeneration, unspecified cervical region (ICD-10 - M50.30) 04/03/2025 Other spondylosis with radiculopathy, cervical region (ICD-10 - M47.22) 04/03/2025 Myalgia of auxiliary muscles, head and neck (ICD-10 - M79.12) 04/03/2025 Postlaminectomy syndrome, not elsewhere classified (ICD-10 - M96.1) 04/03/2025 Unspecified abnormalities of gait and mobility (ICD-10 - R26.9) 04/03/2025 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 Patient is awake, alert and oriented to person, place and time with recent/ remote memory intact. , in no acute distress. Respiratory: Visual Inspection: breathing equal bilaterally, trachea midline. HEENT: Atraumatic, Normocephalic. Pupils grossly normal on inspection. Cardiovascular: Cardiac rhythm is regular. Gastrointestinal: Abdomen grossly normal. No obvious firmness, tenderness or masses noted. Cervical Spine: Cervical Spine is grossly stable, supple with loss of normal curvature noted. Anterior and Posterior scars well healed. Palpation Cervical Spine: bilateral palpation of cervical paraspinals was painful. Cervical ROM: generalized reduced ROM. Cervical facet loading maneuvers of lateral flexion reproduced characteristic neck pain bilaterally. Pain noted with anterior neck flexion. There is pain with extension of cervical spine. There was pain while patient was made to do left lateral rotation. Left lateral flexion causes pain. Painful right lateral rotation. Right lateral flexion is associated with pain. Tightness in paraspinal, trapezius and sternocleidomastoid muscles with multiple trigger points Spurlings test is positive B/L. Strength/ tone : normal Joints- Hips/ SI Joint: SI Joint Palpation : No noted issues. Neurology - Mental Status: Mood and affect are grossly normal. Neurology - Coordination: Antalgic gait. Neurology - Motor Strength: Left UE strength - Flexors: 4+/5. Right UE strength - Flexors: 4+/5. Left UE strength - Extensors: 4+/5. Right UE strength - Extensors: 4+/5. Left UE Tone: Normal. Right UE Tone: Normal. Left LE strength - Flexors: 4+/5. Right LE strength - Flexors: 4+/5. Left LE strength - Extensors: 4+/5. Right LE strength - Extensors: 4+/5. Left LE Tone: Normal. Right LE Tone: Normal. Neurology - Sensation: B/L C6-7 paresthesias Neurology - Deep Tendon Reflexes: Left biceps (DTR): 2. Right biceps (DTR): 2. Left triceps (DTR): 2. Right triceps (DTR): 2. Left brachioradialis (DTR): 2. Right brachioradialis (DTR): 2. Left patellar (DTR): 2. Right patellar (DTR): 2. Left achilles (DTR): 1. Right achilles (DTR): 1.- Yee's b/l Skin: Inspection: edema of b/l LE, with scattered erythema Progress Notes * BARRY VAN SDOB:[birth year] (70 yo F)Acc No.[id number]:04/03/2025 Progress Notes Patient: BARRY LIVINGSTON Provider: Ford Cabello D.O. :1955 A ge:70 Y S ex:Female Date:04/03/2025 Address:[address] [place], [place] [id number] Pcp:SHIV Chong Subjective: * Chief Complaints: * 2 month f/u with RK * Medications: T akingoxyCODONE HCl 10 MG Tablet 1 tablet Orally every 8 hrs As needed Do not exceed 3 per day, stop date 04/17/2025, Notes to Pharmacist: Fill on 03/18/2025Taking oxyCODONE HCl 10 MG Tablet 1 tablet Orally every 8 hrs As needed Do not exceed 3 per day, stop date 04/17/2025, Notes to Pharmacist: Fill on 03/18/2025 Objective: * Examination: G eneral Examination: Constitutional: Patient appears to be appropriate looking for stated age. Patient is awake, alert and oriented to person, place and time with recent/ remote memory intact. , in no acute distress. R espiratory: Visual Inspection: breathing equal bilaterally, trachea midline. H EENT: Atraumatic, Normocephalic. Pupils grossly normal on inspection. C ardiovascular: Cardiac rhythm is regular. G astrointestinal: Abdomen grossly normal. No obvious firmness, tenderness or masses noted. C ervical Spine: Cervical Spine is grossly stable, supple with loss of normal curvature noted. Anterior and Posterior scars well healed. Palpation Cervical Spine: bilateral palpation of cervical paraspinals was painful. Cervical ROM: generalized reduced ROM. Cervical facet loading maneuvers of lateral flexion reproduced characteristic neck pain bilaterally. Pain noted with anterior neck flexion. There is pain with extension of cervical spine. There was pain while patient was made to do left lateral rotation. Left lateral flexion causes pain. Painful right lateral rotation. Right lateral flexion is associated with pain. Tightness in paraspinal, trapezius and sternocleidomastoid muscles with multiple trigger points Spurlings test is positive B/L. Strength/ tone : normal J oints- Hips/ SI Joint: SI Joint Palpation : No noted issues. N eurology - Mental Status: Mood and affect are grossly normal. N eurology - Coordination: Antalgic gait. N eurology - Motor Strength: Left UE strength - Flexors: 4+/5. Right UE strength - Flexors: 4+/5. Left UE strength - Extensors: 4+/5. Right UE strength - Extensors: 4+/5. Left UE Tone: Normal. Right UE Tone: Normal. Left LE strength - Flexors: 4+/5. Right LE strength - Flexors: 4+/5. Left LE strength - Extensors: 4+/5. Right LE strength - Extensors: 4+/5. Left LE Tone: Normal. Right LE Tone: Normal. N eurology - Sensation: B/L C6-7 paresthesias N eurology - Deep Tendon Reflexes: Left biceps (DTR): 2. Right biceps (DTR): 2. Left triceps (DTR): 2. Right triceps (DTR): 2. Left brachioradialis (DTR): 2. Right brachioradialis (DTR): 2. Left patellar (DTR): 2. Right patellar (DTR): 2. Left achilles (DTR): 1. Right achilles (DTR): 1.- Yee's b/l S kin: Inspection: edema of b/l LE, with scattered erythema. Assessment: * Assessment: 1. C hronic pain syndrome - G89.4 (Primary) 2 . O ther cervical disc degeneration, unspecified cervical region - M50.30 3 . O ther spondylosis with radiculopathy, cervical region - M47.22 4 . M yalgia of auxiliary muscles, head and neck - M79.12 5 . P ostlaminectomy syndrome, not elsewhere classified - M96.1 ? 6 . U nspecified abnormalities of gait and mobility - R26.9 7 . L [place] term (current) use of opiate analgesic - Z79.891 Billing Information: * Procedure Codes: Care Plan Details* * Electronic signature of Mode Cabello DO on 04/08/2025 at 06:24 AM GAS TRANSFER OPERATOR Sign off status: Pending * Provider: Ford Cabello D.O. Date: 06/04/2024 Generated for Shen lindo/Sindy/Chandler on: 06/09/2024 06:24 AM GAS TRANSFER OPERATOR
[2025-04-08 06:17] VITALS: BP 132/63; PULSE 57; RESP 18; TEMP 36.4; O2SAT 92; BMI 29.2
--- NOTE | 2025-04-08 06:22 | W.ED.GENADLT ---
HPI - General Adult General: Chief complaint: Wound/Laceration Stated complaint: BUG BITES Time Seen by Provider: 04/08/25 06:19 Source: patient and EMS Mode of arrival: EMS Limitations: no limitations History of Present Illness: 70-year-old female well-known to the ER states she has multiple bug bites that she has been itching until they bleed. Has had a history of scabies in the past denies any worse improving factors has no pain at this time. Related Data Home Medications ?Medication ?Instructions ?Recorded ?Confirmed fluticasone propionate 50 1 spray intranasal BID PRN 09/27/23 03/15/25 mcg/actuation nasal allergies spray,suspension oxycodone 10 mg tablet 10 mg PO Q8H PRN Pain 12/29/23 03/15/25 ramelteon 8 mg tablet 8 mg PO BEDTIME 12/24/24 03/15/25 promethazine 25 mg tablet 25 mg PO Q6H PRN Nausea 01/03/25 03/15/25 lidocaine 5 % topical patch 1 patch topical [id number] PRN Pain 01/05/25 03/15/25 aspirin 81 mg tablet,delayed 81 mg PO DAILY 02/14/25 03/15/25 release atorvastatin 40 mg tablet 40 mg PO BEDTIME 02/14/25 03/15/25 folic acid 1 mg tablet 1 mg PO DAILY 02/14/25 03/15/25 furosemide 20 mg tablet 40 mg PO QAM 02/14/25 03/15/25 nitroglycerin 0.4 mg sublingual See Rx Instructions .Route .COMPLEX 02/14/25 03/15/25 tablet furosemide 40 mg tablet 40 mg PO DAILY 03/07/25 03/15/25 Previous Rx's ?Medication ?Instructions ?Recorded Bone growth stimulator #1 ea 01/22/23 Bone growth stimulator #1 ea 02/05/23 tens unit for cervical #1 ea 12/16/23 insulin syringes (disposable) 1 mL #25 ea 05/30/24 ropinirole 5 mg tablet 5 mg PO BID #270 tabs 10/25/24 baclofen 10 mg tablet 5 mg (1/2 x 10 mg) PO Q12H PRN 11/07/24 Muscle Spasm #30 tabs clopidogrel 75 mg tablet 75 mg PO DAILY 30 days #30 tabs 12/26/24 pantoprazole 40 mg tablet,delayed 40 mg PO Q12H 30 days #60 tabs 12/26/24 release (Protonix) potassium chloride 20 mEq 20 meq PO DAILY #30 tabs 12/26/24 tablet,extended release ranolazine 500 mg tablet,extended 500 mg PO BID #180 tabs 01/01/25 release,12 hr albuterol sulfate 90 mcg/actuation 2 inh inhalation Q4H PRN shortness 01/03/25 aerosol inhaler of breath or wheezing #18 grams adalimumab 40 mg/0.4 mL 40 mg (0.4 mL) SUBCUT Q14D #2 ea 02/07/25 subcutaneous syringe kit (Humira(CF)) levothyroxine 125 mcg tablet 125 mcg PO DAILY #30 tabs 02/13/25 ferrous sulfate 325 mg (65 mg 325 mg PO DAILY #90 tabs 03/09/25 iron) tablet (Iron (ferrous sulfate)) gabapentin 300 mg capsule 200 mg (0.6667 x 300 mg) PO TID 90 03/09/25 days #180 caps sucralfate 1 gram tablet 1 g PO Q6H 60 days #240 tabs 03/09/25 buspirone 7.5 mg tablet 7.5 mg PO BID #60 tabs 03/15/25 ondansetron 4 mg disintegrating 4 mg PO Q6H PRN nausea and 03/27/25 tablet vomiting #14 tabs permethrin 5 % topical cream 1 applic topical Q14D 2 doses #60 04/08/25 (Elimite) grams Allergies Allergy/AdvReac Type Severity Reaction Status Date / Time venlafaxine (From Effexor) Allergy Severe ADR-Agitate Verified 04/08/25 06:24 d ibuprofen Allergy Unknown ADR-Anxiety Verified 04/08/25 06:24 tizanidine Allergy Unknown Unknown Verified 04/08/25 06:24 acetaminophen Allergy ADR-Anxiety Verified 04/08/25 06:24 amitriptyline Allergy ADR-Agitate Verified 04/08/25 06:24 d diphenhydramine (From Allergy ADR-Agitate Verified 04/08/25 06:24 Benadryl) d metoclopramide (From Reglan) Allergy ADR-Agitate Verified 04/08/25 06:24 d morphine Allergy ADR-Halluci Verified 04/08/25 06:24 nating prochlorperazine (From Allergy Unknown Verified 04/08/25 06:24 Compazine) leflunomide AdvReac Intermediate GI adverse Verified 04/08/25 06:24 reactions sulfasalazine AdvReac Intermediate ADR-Nausea Verified 04/08/25 06:24 and acid reflux PFSH ED PFSH: Medical History Hypothyroidism Rheumatoid arthritis flare Coronary artery disease involving [place] coronary artery of [place] heart without angina pectoris Pneumonia DVT (deep venous thrombosis) Acute GI bleeding History of deep vein thrombosis GERD (gastroesophageal reflux disease) Pre-operative clearance Acute anemia Hematoma complicating a procedure Cervical adenopathy GI bleed Osteoarthritis, shoulder Cervical spondylosis with myelopathy GERD with esophagitis Allergic rhinitis due to allergen RLS (restless legs syndrome) Substance or medication-induced sleep disorder, insomnia type Anxiety and depression High risk medication use Seropositive rheumatoid arthritis of multiple sites Extrapyramidal and movement disorder CKD (chronic kidney disease) stage 3, GFR 30-59 ml/min Lung nodule, solitary Prediabetes Hyperlipidemia Iron deficiency anemia Surgical History S/P insertion of IVC (inferior vena caval) filter Status post cervical spinal fusion History of cholecystectomy History of appendectomy History of delivery History of hysterectomy with bilateral oophorectomy History of ankle surgery left Previous back surgery Social History Smoking and tobacco/nicotine status: former use of tobacco/nicotine Quit status (tobacco/nicotine): has quit using Year quit tobacco: 2009 Former quit date comment: Smoked for 9 months Alcohol intake: current Alcohol intake frequency: holidays/special occasions only Substance/Drug Use: never Additional social history: Patient tells me that after her accident she is chronically on oxycodone 10 mg 3 times daily. She is recently full code on 12/24/2024 admission Physical Exam Const: COMMON NORMALS: no acute distress, patient oriented x3 and healthy appearing HENMT: COMMON NORMALS: normocephalic and atraumatic HEAD & SCALP: normocephalic and atraumatic Eye: COMMON NORMALS: conjunctivae normal CONJUNCTIVA: Yes conjunctivae normal Neck/C-Spine: COMMON NORMALS: full ROM and supple Chest: COMMONS NORMALS: normal inspection of the chest and normal palpation of entire chest wall Resp: COMMON NORMALS: normal respiratory effort, No retractions, No use of accessory muscles and clear to auscultation bilaterally AUSCULTATION: clear to auscultation bilaterally Cardio: COMMON NORMALS: regular rate, regular rhythm and No murmurs present (Cardio) RATE: regular rate RHYTHM: regular rhythm GI: COMMON NORMALS: Normal to inspection, nondistended, normoactive bowel sounds present, Soft to palpation, non-tender and no masses PALPATION: Yes Soft to palpation Extremity: COMMON NORMALS: normal to inspection and full ROM Neuro: COMMON NORMALS: patient oriented x3, moves all extremities and no focal motor deficits Psych: COMMON NORMALS: mental status grossly normal, Normal thought process present and cooperative THOUGHT PROCESS: Normal thought process present Skin: COMMON NORMALS: no wounds NARRATIVE SKIN EXAM: Multiple sores to body likely bug bites. Possible scabies [facility] - General Adult Medical Decision Making Patient presents here with multiple sores on her body and likely bug bites could be scabies. No active bleeding at this time we will start her on Elimite she is stable for discharge follow-up PCP return if worsening. No radiology studies performed this visit Discharge Plan Discharge Patient Disposition: Home Clinical Impression: Scabies Condition: Stable Prescriptions: New permethrin [Elimite] 5 % cream 1 applic topical Q14D Qty: 60 0RF Rx Instructions: apply second treatment 14 days after first treatment if live lice remain No Action (DME) tens unit for cervical See Rx Instructions .Route .MEDSUPPLY Qty: 1 0RF Rx Instructions: As directed (DME) Bone growth stimulator See Rx Instructions .Route .MEDSUPPLY Qty: 1 0RF Rx Instructions: As directed (DME) Bone growth stimulator See Rx Instructions .Route .MEDSUPPLY Qty: 1 0RF Rx Instructions: As directed (DME) insulin syringes (disposable) 1 mL syringe See Rx Instructions .ROUTE .MEDSUPPLY Qty: 25 3RF Rx Instructions: As directed Humira(CF) 40 mg/0.4 mL syringe kit 40 mg SUBCUT Q14D Qty: 2 5RF levothyroxine 125 mcg tablet 125 mcg PO DAILY Qty: 30 0RF oxycodone 10 mg tablet 10 mg PO Q8H PRN (Reason: Pain) ropinirole 5 mg tablet 5 mg PO BID Qty: 270 0RF ramelteon 8 mg tablet 8 mg PO BEDTIME clopidogrel 75 mg tablet 75 mg PO DAILY 30 Days Qty: 30 0RF pantoprazole [Protonix] 40 mg tablet,delayed release (DR/EC) 40 mg PO Q12H 30 Days Qty: 60 0RF potassium chloride 20 mEq tablet extended release 20 meq PO DAILY Qty: 30 0RF promethazine 25 mg tablet 25 mg PO Q6H PRN (Reason: Nausea) albuterol sulfate 90 mcg/actuation HFA aerosol inhaler 2 inh INHALATION Q4H PRN (Reason: shortness of breath or wheezing) Qty: 18 0RF lidocaine 5 % adhesive patch,medicated 1 patch topical [id number] PRN (Reason: Pain) furosemide 20 mg tablet 40 mg PO QAM atorvastatin 40 mg tablet 40 mg PO BEDTIME aspirin 81 mg tablet,delayed release (DR/EC) 81 mg PO DAILY nitroglycerin 0.4 mg tablet, sublingual See Rx Instructions .ROUTE .COMPLEX Rx Instructions: DISSOLVE 1 TABLET UNDER THE TONGUE EVERY 5 MINUTES NEEDED FOR CHEST PAIN. DO NOT EXCEED A TOTAL OF 3 DOSES IN 15 MINUTES. folic acid 1 mg tablet 1 mg PO DAILY furosemide 40 mg tablet 40 mg PO DAILY sucralfate 1 gram Tablet 1 g PO Q6H 60 Days Qty: 240 0RF gabapentin 300 mg capsule 200 mg PO TID 90 Days Qty: 180 0RF ferrous sulfate [Iron (ferrous sulfate)] 325 mg (65 mg iron) tablet 325 mg PO DAILY Qty: 90 0RF ondansetron 4 mg tablet,disintegrating 4 mg PO Q6H PRN (Reason: nausea and vomiting) Qty: 14 0RF fluticasone propionate 50 mcg/actuation spray,suspension 1 spray INTRANASAL BID PRN (Reason: allergies) baclofen 10 mg tablet 5 mg PO Q12H PRN (Reason: Muscle Spasm) Qty: 30 0RF ranolazine 500 mg Tablet Extended Release 12 Hr 500 mg PO BID Qty: 180 0RF buspirone 7.5 mg tablet 7.5 mg PO BID Qty: 60 0RF Discharge Orders: Discharge ED (Routine); Ordered 04/08/25 Ordered By: Coral Oconnor Referrals: Diana Garcia PA [Primary Care Provider, [facility]] - 4-7 days Discharge Diet: Advance as tolerated Discharge Activity: Resume usual activity Patient Instructions: Scabies (ED) Print Language: Setswana Coding Level of Care Code ED Surgical Scrub Technician for Maribel Sweet
--- OUTSIDE RECORDS SUMMARY | 2025-04-08 06:23 | XMS_ITS | Patient Health Record ---
Author Organization [facility] Address [address] [place] [address] Care Team Providers Care Service Secretary Name Role Phone Diana Galvan Primary Care Provider UnavailDeedee Vickers Unavailable [phone] Rajesh Serna Unavailable [phone] Paxton Nobles Unavailable [phone] Mode Cabello Unavailable [phone] Desiree Cox Unavailable Allergies Allergen (clinical drug ingredient) Drug/Non Drug Allergy documented on EMR Reaction Allergy Type Onset Date Status diphenhydramine Benadryl Unknown Drug Allergy A ctive sumatriptan Imitrex Unknown Drug Allergy Activ e Results Component Value Reference Range Flag Notes Urine Drug Screen (cup read) - [id number] Reviewed date:06/22/2024 01:19:32 PM Interpretation:Positive Performing Lab: Notes/Report: Positive OXY + Urine Confirmation Panel (in strument) - [id number] Reviewed date:06/28/2024 02:49:57 PM Interpretation: Performing Lab: [...] the U.S. Food and Drug Administration. Gabapentin >67393 <225 ng/mL > This test was developed [...] Administration. Urine Drug Screen (cup read) - 97495 Reviewed date:11/27/2024 02:11:57 PM Interpretation: Performing Lab: Notes/Report: OXY + Urine Confirmation Panel (in strument) - 79956 Reviewed date:12/05/2024 02:47:57 PM Interpretation: Performing Lab: [...] the U.S. Food and Drug Administration. Gabapentin >47447 <225 ng/mL > This test was developed [...] date:02/27/2025 02:32:50 PM Interpretation: Performing Lab: Notes/Report: Schedule Confirmation Reviewed date:02/27/2025 02:32:50 PM Interpretation: Performing Lab: Notes/Report: zzzCT Outside CD Reviewed date:02/27/2025 02:32:50 PM Interpretation: Performing Lab: Notes/Report: mjx=[id number]&org=iSite Tox Results Reviewed date:06/28/2024 02:49:57 PM Interpretation: Performing Lab: Notes/Report: IPMA Saliva Drug Screen Reviewed date:09/01/2024 10:27:02 AM Interpretation: Performing Lab: Notes/Report: Urine Drug Screen (cup read) - 05895 Reviewed date:10/05/2024 10:34:03 AM Interpretation: Performing Lab: Notes/Report: BZO + OPI + Reason For Referral Reason EMG/NCV Bilateral Up per Extremities Diagnosis 1 Pain in right upper arm (M79.621) Diagnosis 2 Pain in left upper a rm (M79.622) Diagnosis 3 Cervical radiculopat hy (M54.12) Diagnosis 4 Degenerative disc di sease, cervical (M50.30) Diagnosis 5 Cervical paraspinal muscle spasm (M62.838) Referral Organization [facility] [place] Referring Provider First Name Rajesh Referring Provider Last Name Kareem Referring Provider Speciality Neurosurge ry Referred Provider [facility], Physi roselia Therapy (Main) Referred Provider Specialty Physical The rapist Referral Priority Routine Reason Evaluation of a cerv ical spinal cord stimulator Diagnosis 1 Cervical paraspinal muscle spasm (M62.838) Diagnosis 2 Chronic pain syndrom e (G89.4) Diagnosis 3 Arthrodesis status ( Z98.1) Referring Provider First Name Rajesh Referring Provider Last Name Kareem Referring Provider Speciality Neurosurge tahmina Referred Organization [facility] Referred Provider Mode Cabello Referred Address [address] [facility],[address], General Notes Alissa Myrick 0 05/19/2024 03:03:09 PM >ATC to schedule. Referral Priority Routine Reason Evaluation of a cerv ical spinal cord stimulator Diagnosis 1 Chronic pain syndrom e (G89.4) Diagnosis 2 Cervical paraspinal muscle spasm (M62.838) Diagnosis 3 Arthrodesis status ( Z98.1) Referral Organization [facility] [place] Referring Provider First Name Rajesh Referring Provider [...] Status Risk Notes Problem Chronic pain syndrome (645948092) Chronic pain syndrome (G89.4) 09/15/19 24 Active confirmed Problem Cervical spondylosis without myelopathy (677963593) Other spondylosis with radiculopathy, cervical region (M47.22) 09/15/19 24 Active confirmed Problem Degeneration of cervical intervertebral disc (97273036) Other cervical disc degeneration, unspecified cervical region (M50.30) 09/15/19 24 Active confirmed Problem Post-laminectomy syndrome (27694074) Postlaminectomy syndrome, not elsewhere classified (M96.1) 09/15/19 Active confirmed Problem Abnormal gait (31934313) Unspecified abnormalities of gait and mobility (R26.9) 09/15/19 Active confirmed Problem High risk drug monitoring status (207482605) terminal block assembler (current) use of opiate analgesic (Z79.891) 09/15/19 Active confirmed Problem Cervical radiculopathy (51232722) Cervical radiculopathy (M54.12) Active confirmed Problem Degeneration of cervical intervertebral disc (99389263) Degenerative disc disease, cervical (M50.30) Active confirmed Problem 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) (843068841) Facet arthropathy, 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) Active confirmed Problem Neck pain (86104857) Cervical pain (neck) (M54.2) Active confirmed Problem Peripheral vascular disease (961403404) Peripheral vascular disease (I73.9) Active confirmed Vital [...] 02/16/2025 Encounters Encounter Location Date Provider Diagnosis [facility] [address] [place] [address] 02/16/2025 Deedee Villarreal Chronic pain syndrom e G89.4 ; Other spondylosis with radiculopathy, cervical region M47.22 ; Myalgia of auxiliary muscles, head and neck M79.12 ; Postlaminectomy syndrome, not elsewhere classified M96.1 ; Other cervical disc degeneration, unspecified cervical region M50.30 ; intermediate (current) use of opiate analgesic Z79.891 and Unspecified abnormalities of gait and mobility R26.9 [facility] [address] [address] 11/27/2024 Deedee Villarreal Chronic pain syndrom e G89.4 ; Other spondylosis with radiculopathy, cervical region M47.22 ; Myalgia of auxiliary muscles, head and neck M79.12 ; Unspecified abnormalities of gait and mobility R26.9 ; Postlaminectomy syndrome, not elsewhere classified M96.1 ; Other cervical disc degeneration, unspecified cervical region M50.30 and intermediate (current) use of opiate analgesic Z79.891 [facility] [address] [address] 10/05/2024 Deedee Villarreal Chronic pain syndrom e G89.4 ; Other spondylosis with radiculopathy, cervical region M47.22 ; Myalgia of auxiliary muscles, head and neck M79.12 ; Unspecified abnormalities of gait and mobility R26.9 ; Postlaminectomy syndrome, not elsewhere classified M96.1 ; Other cervical disc degeneration, unspecified cervical region M50.30 and terminal block assembler (current) use of opiate analgesic Z79.891 [facility] [address] [address] 08/24/2024 Deedee Villarreal Chronic pain syndrom e G89.4 ; Other spondylosis with radiculopathy, cervical region M47.22 ; Myalgia of auxiliary muscles, head and neck M79.12 ; Unspecified abnormalities of gait and mobility R26.9 ; Postlaminectomy syndrome, not elsewhere classified M96.1 ; Other cervical disc degeneration, unspecified cervical region M50.30 and terminal block assembler (current) use of opiate analgesic Z79.891 [facility] [address] [address] 06/22/2024 Deedee Villarreal Chronic pain syndrom e G89.4 ; Other cervical disc degeneration, unspecified cervical region M50.30 ; Other spondylosis with radiculopathy, cervical region M47.22 ; Myalgia of auxiliary muscles, head and neck M79.12 ; Postlaminectomy syndrome, not elsewhere classified M96.1 ; Unspecified abnormalities of gait and mobility R26.9 and terminal block assembler (current) use of opiate analgesic Z79.891 [facility] [address] [address] 05/24/2024 Mode Cabello Chronic pain syndrom e G89.4 ; Other cervical disc degeneration, unspecified cervical region M50.30 ; Other spondylosis with radiculopathy, cervical region M47.22 ; Myalgia of auxiliary muscles, head and neck M79.12 ; Postlaminectomy syndrome, not elsewhere classified M96.1 ; Unspecified abnormalities of gait and mobility R26.9 and intermediate (current) use of opiate analgesic Z79.891 [facility] [place] [address] [address] 05/04/2024 Rajesh Serna Cervical paraspinal muscle spasm M62.838 ; Chronic pain syndrome G89.4 ; Degenerative disc disease, cervical M50.30 ; Cervical radiculopathy M54.12 and Arthrodesis status Z98.1 [facility] [address] [address] 04/26/2024 Mode Cabello Chronic pain syndrom e G89.4 ; Other spondylosis with radiculopathy, cervical region M47.22 ; Other cervical disc degeneration, unspecified cervical region M50.30 ; Myalgia of auxiliary muscles, head and neck M79.12 ; Postlaminectomy syndrome, not elsewhere classified M96.1 ; Unspecified abnormalities of gait and mobility R26.9 and terminal block assembler (current) use of opiate analgesic Z79.891 [facility] [place] [address] [place] [address] 04/10/2024 Rajesh Serna Cervical paraspinal muscle spasm M62.838 ; Degenerative disc disease, cervical M50.30 ; Cervical radiculopathy M54.12 ; Pain in left upper arm M79.622 and Pain in right upper arm M79.621 [facility] [address] [place] [address] 05/30/2024 Deedee Villarreal [facility] [address] [place] [address] 04/14/2024 Mode Cabello [facility] [address] [place] [address] 02/16/2025 Mode Cabello Other spondylosis wi th radiculopathy, cervical region M47.22 [facility] [address] [place] [address] 02/02/2025 Desiree Lyuksyutova-Margi ce Other spondylosis with radiculopathy, cervical region M47.22 [facility] [address] [place] [address] 01/01/2025 Mode Cabello Other spondylosis wi th radiculopathy, cervical region M47.22 [facility] [address] [place] [address] 11/27/2024 Desiree Lyuksyutova-Margi ce Other spondylosis with radiculopathy, cervical region M47.22 [facility] [address] [place] [address] 10/05/2024 Desiree Lyuksyutova-Margi ce Other spondylosis with radiculopathy, cervical region M47.22 [facility] [address] [place] [address] 08/24/2024 Mode Cabello Other spondylosis wi th radiculopathy, cervical region M47.22 [facility] [address] [place] [address] 08/17/2024 Mode Cabello [facility] [address] [place] [address] 07/10/2024 Deedee Villarreal [facility] [address] [facility] [place] [address] 06/22/2024 Mode Cabello Chronic pain syndrom e G89.4 and Other spondylosis with radiculopathy, cervical region M47.22 [facility] [address] [facility] [place] [address] 06/05/2024 Mode Cabello Other spondylosis wi th radiculopathy, cervical region M47.22 [facility] [address] [place] [address] 05/17/2024 Mode Cabello Assessments Encounter Date Diagnosis (ICD Code) Assessment Notes Treatment Notes Treatment Clinical Notes Section Notes 04/10/2024 Cervical paraspinal muscle spasm (ICD-10 - M62.838) 04/10/2024 Degenerative disc disease, cervical (ICD-10 - M50.30) 11/27/2024 Other spondylosis with [...] monitor for treatment effectiveness and compliance. 05/24/2024 Chronic pain syndrome (ICD-10 - G89.4) [...] effects are noted. Last UDS and AR GLUE DRIER OPERATOR reviewed today. Patient is advised that best [...] effects are noted. Last UDS and AR GLUE DRIER OPERATOR reviewed today. Patient is advised that best [...] effects are noted. Last UDS and AR GLUE DRIER OPERATOR reviewed today. Patient is advised that best [...] radiculopathy, cervical region (ICD-10 - M47.22) 02/16/2025 Other spondylosis with radiculopathy, cervical region [...] for biannual appointment with Dr. Cabello. 08/24/2024 Chronic pain syndrome (ICD-10 - G89.4) [...] Chronic pain syndrome (ICD-10 - G89.4) 08/24/2024 Myalgia of auxiliary muscles, head and [...] M50.30) 04/10/2024 Cervical radiculopathy (ICD-10 - M54.12) 05/04/2024 Degenerative disc disease, cervical (ICD-10 - M50.30) 05/04/2024 Cervical radiculopathy (ICD-10 - M54.12) 04/26/2024 Myalgia of auxiliary muscles, head and neck (ICD-10 - M79.12) 04/10/2024 Pain in left upper arm (ICD-10 - M79.622) 06/22/2024 Other spondylosis with radiculopathy, cervical region [...] M79.12) 05/04/2024 Arthrodesis status (ICD-10 - Z98.1) 04/26/2024 Postlaminectomy syndrome, not elsewhere classified (ICD-10 [...] in right upper arm (ICD-10 - M79.621) 06/22/2024 Postlaminectomy syndrome, not elsewhere classified (ICD-10 - M96.1) 05/24/2024 Unspecified abnormalities of gait and mobility (ICD-10 - R26.9) 04/26/2024 Unspecified abnormalities of gait and mobility (ICD-10 - R26.9) 02/16/2025 intermediate (current) use of opiate analgesic (ICD-10 - Z79.891) 11/27/2024 Postlaminectomy syndrome, not elsewhere classified (ICD-10 - M96.1) 10/05/2024 Postlaminectomy syndrome, not elsewhere classified (ICD-10 - M96.1) 08/24/2024 Other cervical disc degeneration, unspecified cervical region (ICD-10 - M50.30) 08/24/2024 intermediate (current) use of opiate analgesic (ICD-10 - [...] effects are noted. Last UDS and AR GLUE DRIER OPERATOR reviewed today. Patient is advised that best [...] gait and mobility (ICD-10 - R26.9) 04/26/2024 intermediate (current) use of opiate analgesic (ICD-10 - Z79.891) 05/24/2024 terminal block assembler (current) use of opiate analgesic (ICD-10 - Z79.891) 06/22/2024 Unspecified abnormalities of gait and mobility (ICD-10 - R26.9) 06/22/2024 terminal block assembler (current) use of opiate analgesic (ICD-10 - [...] by our urine testing policy. 11/27/2024 intermediate (current) use of opiate analgesic (ICD-10 - Z79.891) 10/05/2024 terminal block assembler (current) use of opiate analgesic (ICD-10 - Z79.891) 04/26/2024 Other Michael Crabtree am scribing for [...] Name Order Date Cervical Spine AP/Lat 2-3 [id number] Next Appt Details Provider Name:Mode Cabello, 04/18/2025 09:00:00 AM, [address] [place], [address], Insurance Providers Payer Name Payer Address Payer Phone Subscriber Number Group Number Insured Name Patient Relationship to Insured Coverage Start Date Coverage End Date [place] [address] [place] [phone] [id number] BARRY VAN Self - patient is the insured [employer] [place] [address] [place], [place] [address] [phone] [id number] BARRY VAN Self - patient is the insured [place] Medicare [address] [address] [place] [address] [phone] [id number] BARRY VAN Self - patient is the insured Medical (General) History Surgical History Surgery Date(Month/Year) Neck surgeries left ankle surgery Jaw surgeries Hysterectomy Hernia surgery section Breast biopsy appendectomy
--- OUTSIDE RECORDS SUMMARY | 2025-04-08 06:23 | XMS_ITS | Clinical Summary ---
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
--- OUTSIDE RECORDS SUMMARY | 2025-04-08 06:23 | XMS_ITS | Patient Health Record ---
Author Organization Dr Desiree gordon [facility] Address [address] [place] [address] Support Name Relationship Address Phone BARRY VAN Guarantor Unknown [phone] Allergies Allergen (clinical drug ingredient) Drug/Non Drug [...] Status W/U Status Risk Notes Problem Hypothyroidism (77653950) Other specified hypothyroidism (E03.8) Active confirmed Problem Chronic pancreatitis (190315328) Other chronic pancreatitis (K86.1) Active confirmed Problem Sciatica (12634419) Lumbago with sciatica, right side (M54.41) Active confirmed Problem Sciatica (28634024) Lumbago with sciatica, left side (M54.42) Active confirmed Problem Anxiety (37512345) Anxiety (F41.9) Active confirmed Problem Posttraumatic stress disorder (96321022) PTSD (post-traumatic stress disorder) (F43.10) Active confirmed Problem Heart failure (56895361) Other congestive heart failure (I50.9) Active confirmed Problem Chronic pain due to injury (609691999) 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) Active [...] End Date [place]ARE [place], [address] [address] GABI BRIZUEL[place] [phone] [id number] BARRY VAN Self - patient is the insured [employer] [facility] [place] [id number] BARRY VAN Self - patient is the insured Medical (General) History Medical History History ICD Code Hypothyroidism head injury with seizures multiple traumatic injuries from [facility] back surgery pancreatitis cataract pneumonia depression GERD Surgical History Surgery Date(Month/Year) back surgery 2015 Hospitalization History Reason Date(Month/Year) Pneumonia and hand infection. 11/2021
--- OUTSIDE RECORDS SUMMARY | 2025-04-08 06:23 | XMS_ITS | Patient Health Record ---
Author Organization [facility] Billing Info Address [address] [place] [address] [place] [address] Phone [phone] Care Team Providers Care Senior Business Development Analyst Name Role Phone ABDOUL ARMANDOGAVINO Unavailable [phone] JITENDRA PFEIFFER Unavailable Unavailable Allergies Allergen (clinical [...] Orally Three times a day Active Creon 95759 UNIT Capsule Delayed Release Particles 2 Orally [...] Information: Her son is living at [facility] due to Meth addiction. She is now living at the same facility. 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) Added On:11/12 Active confirmed Problem Wrist joint effusion (460456463) Effusion, right wrist (M25.431) Added On:11/12 Active confirmed Problem Dyslipidemia (624687716) Dyslipidemia (E78.5) Added On:11/12 Active confirmed Problem Seizure (52737810) Seizures (R56.9) Added On:11/12 Active confirmed Problem Heart murmur (36858159) Heart murmur (R01.1) Added On:11/12 Active confirmed Problem Diabetes mellitus type 2 in nonobese (847987494) Diabetes mellitus type 2 in nonobese (E11.9) Added On:11/12 Active confirmed Problem Gastroesophageal reflux disease (601129166) GERD without esophagitis (K21.9) Added On:11/12 Active confirmed Problem Hypothyroidism (66751964) Hypothyroidism (acquired) (E03.9) Added On:11/12 Active confirmed Problem Angina (948876681) 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.119) Added On:11/12 Active confirmed Problem Depressive disorder (disorder) (38526248) Depression, unspecified depression type (F32.9) Added On:11/12 Active confirmed Problem Vestibular schwannoma (286317404) 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) Added On:11/12 Active confirmed Problem Cataract (133713215) Cataract of left eye, unspecified cataract type (H26.9) Added On:11/18 Active confirmed Plan Of Treatment Pending Test Test Name Order Date Hemoglobin A1c ([id number]) 11/12/2016 MRI- BRAIN WO CONTRAST (67099)([facility]) 01/22/2017 XRAY- ABDOMEN-KUB 1V (23238)([facility] ) 01/21/2017 Insurance Providers Payer Name Payer Address Payer Phone Subscriber Number Group Number Insured Name Patient Relationship to Insured Coverage Start Date Coverage End Date MEDICARE [place] PART B [address] [facility] MICHELE SHIV BLISS [id number] Tosha Perry Self - patient is the insured 1 9 [facility] SUPPLEMENT [id number] [facility] [place] [id number] Tosha Perry Self - patient is the [...]
--- OUTSIDE RECORDS SUMMARY | 2025-04-08 06:24 | XMS_ITS | Continuity of Care Document ---
Author Organization [place] [facility], [facility], [facility] ([facility]) Address [address] [place] [address] Care Team Providers Care [employer] Name Role Phone KIERAN VO Primary Care Provider Unavailabl e Assessment No assessment recorded. Plan of Treatment Reminders Order Date Submit Date Provider Last Modified By Organization Details Last Modified Time Details Appointments OFFICE VISIT 20 2025 02:00P Anny VO PA-C Not available Not available Not available Lab CBC [address] [facility], [address], [place], [address], 03/06/2025 08:07:27 BMP, serum or plasma [address] [facility], [address], [facility], [place], [address], 03/06/2025 08:07:27 Referral None recorded. Procedures None recorded. Surgeries None recorded. Imaging None recorded. Medication Orders atorvasta tin [address] [facility] #[id number], [address], [address], [place], [address], 02/13/2025 15:20:22 ranolazin e ER 500 mg tablet,ex tended release,[address] [facility] #[id number], [address], [address], [place], [address], 02/13/2025 15:20:22 furosemid e 40 mg tablet 2024 025 [id number], [address], [place], [address], 02/13/2025 15:16:44 potassium chloride 40 mEq/15 mL oral liquid 2024 025 [id number], [address], [place], [address], 02/13/2025 15:16:44 Patient TargetsNo targets recorded. Patient InstructionsNo instructions recorded. Reason for Referral None Reported. Results Created Date Observation Date Name Description Value Unit Range Abnormal Flag Note LastModifiedBy Organization Detail LastModifiedTime 03/23/2003/22/2025 XR, hand, 3 or more view No observ ation record ed. [facility] [address], [place], [address], 03/25/2025 12:54:51 Result Notes None recorded. Problems Name Problem SNOMED Code Status Onset Date Resolution Date Notes Provider Name and Address Organization Details Recorded Time Hand pain 45852679 Completed 202205/14/2024 [facility] 07:[facility] Hand pain 72045686 Completed 202205/14/2024 [facility] 07:55:15 Low back pain 595502044 Completed 202305/14/2024 [facility] 18:20:21 Deep venous thrombosi s of lower extremity 794194482 Completed 202305/14/2024 at [facility] non occlusi ve. IVC placed due to no able to take blood thinner s. NICOLE gustafson, [facility] 5 07:54:08 Chronic pain 37268126 Active 2023 NICOLE CRANE null, [facility] 5 07:54:43 Hospital inpatient stay within past 30 days 37112269562 06 Completed 202305/14/2024 NICOLE CRANE null, [facility] 5 07:55:38 History of cervical spine fusion 37268841419 01 Completed 202305/14/2024 NICOLE CRANE null, [facility] 5 07:55:29 Hypothyro idism 42275053 Active 2023 NICOLE CRANE null, [facility] 5 07:55:43 Depressiv e disorder 12560234 Active 2023 NICOLE CRANE null, [facility] 5 07:54:53 Gastroeso phageal reflux disease without esophagit is 473537261 Active 2023 NICOLE CRANE null, [facility] 5 07:55:09 Anxiety 28346288 Active 2023 NICOLE CRANE null, [facility] 5 07:54:40 Rib pain 143857596 Completed 202305/14/2024 NICOLE CRANE null, [facility] 5 07:57:21 Nausea 584378411 Completed 202305/14/2024 NICOLE HAEFFNER null, [facility] 5 07:55:56 Peptic ulcer 98406544 Completed 202305/14/2024 NICOLE HAEFFNER null, [facility] 5 07:57:13 Pain in bilateral legs 95971302277 842598 Completed 202305/14/2024 NICOLE HAEFFNER null, [facility] 5 07:56:52 Pain in left lower limb 037827066 Completed 202305/14/2024 NICOLE HAEFFNER null, [facility] 5 07:57:01 Acquired dilation of bile duct 64374899640 99564 Completed 202305/14/2024 NICOLE HAEFFNER null, [facility] 5 07:54:30 Deep venous thrombosi s 678556856 Completed 202305/14/2024 NICOLE HAEFFNER null, [facility] 5 07:54:50 Anemia 223028197 Active 2023 NICOLE HAEFFNER null, [facility] 5 07:54:37 Pain in right arm 469525682 Completed 202305/14/2024 NICOLE HAEFFNER null, [facility] 5 07:57:07 Right upper quadrant pain 132272847 Completed 202305/14/2024 NICOLE HAEFFNER null, [facility] 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 14216737554 9106 Active 2024 NICOLE CRANE [facility], Job 5 08:05:04 Low back pain 861952746 Active 2024 NICOLE CRANE [facility], RodgerL.CHarjeet 5 18:20:21 Restless legs syndrome 58211162 Active 2024 NICOLE CRANE [facility], LHarjeetL.CHarjeet 5 18:20:23 Chronic insomnia 368679536 Active 2024 NICOLE CRANE [facility], LHarjeetL.CHarjeet 5 18:31:19 Retention of urine 774401501 Active 2024 NICOLE CRANE [facility] L.L.[facility]jeet 5 14:49:35 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 Procedures Surgical History Date Name Laterality Status Provider Name and Address Organization Details Recorded Time 2024 fluoroscopic angiography of coronary artery with contrast and insertion of stent completed NICOLE CRANE [facility] 5 18:02:58 2024 plain X-ray of chest completed PAULETTE JASON [facility] 5 00:10:[address] of abdomen and pelvis completed PAULETTE EREN [facility] 5 00:12:33 2023 insertion of arterial stent completed JER VO PA-C [address] [place], [address], [facility] 4 15:12:39 2023 colonoscopy completed KIERAN VO PA-C [address] [place], [address], [facility] 4 17:29:05 2023 esophagogastroduodenoscopy completed KIERAN VO PA-C [address] [place], [address], [facility] 4 17:08:01 2023 ultrasonography of liver completed NIOCLE CRANE [facility] 4 16:43:05 2023 primary posterior decompression cervical cord and fusion completed KIERAN VO PA-C [address] [place], [address], [facility] 4 13:58:12 2023 insertion of inferior vena caval filter completed KIERAN VO PA-C [address] [place], [address], [facility] 4 13:58:28 2022 primary fusion of cervical spine completed KIERAN VO PA-C [address] [place], [address], [facility] 3 12:50:26 Imaging Results None recorded. Procedure Notes None recorded. Medical Equipment None Reported. Allergies Allergen ID Allergen Name Allergen Category Reaction Reaction Severity Criticality Documentation Date Start Date Code Code System Note Provider Name and Address Organization Details Recorded Time 25080 Benadryl medicatio n Not available Not available Not available 03/12/2023 54060 7 RxNorm NICOLE SRIDHARLESLYEMORY gustafson, [facility] 3 12:01:01 01880 amitripty line medicatio n Not available Not available Not available 03/12/2023 704 RxNorm NICOLEHOLLAND gustafson, [facility] 3 12:01:37 85436 tizanidin e medicatio n Not available Not available Not available 03/12/2023 26254 RxNorm NICOLE SRIDHARLESLYEMORY gustafson, [facility] 3 12:08:21 35699 morphine medicatio n confusion Not available [facility] 09/02/2023 7052 RxNorm KIERAN VO PA-C [address] [place], [address], [facility] 4 15:15:03 49906 venlafaxi ne medicatio n itching Not available Not available 02/13/2025 55057 RxNorm NICOLE DEJESUSEDD gustafson, [facility] 5 14:50:24 94142 ibuprofen medicatio n Not available Not available [facility] 02/23/2025 5640 RxNorm Not Available wanda - External Data Service - prod 5 09:45:37 69880 acetamino phen medicatio n Not available Not available [facility] 02/23/2025 161 RxNorm Not Available wanda - External Data Service - prod 5 09:45:37 74422 prochlorp erazine medicatio n Not available Not available [facility] 02/23/2025 8704 RxNorm Not Available formerly [facility] External Data Service - [facility] 5 09:45:37 52604 diphenhyd ramine medicatio n Not available [facility] 02/23/2025 3498 RxNorm unrec ogniz ed react ion (text : Hyper activ e behav ior (find ing), code: 18139 000) (from exter nal sour e) Not Available formerly [facility] External Data Service - [facility] 5 09:45:37 85461 leflunomi de medicatio n Not available Not available [facility] 02/23/20252024 83640 RxNorm Not Available formerly [facility] External Data Service - [facility] 5 09:45:40 83984 sulfasala zine medicatio n Not available Not available [facility] 02/23/20252024 9524 RxNorm Not Available formerly [facility] External Data Service - [facility] 5 09:45:40 79831 metoclopr amide Not available Not available Not available Not available 03/12/2025 6915 RxNorm Not Available formerly [facility] External Data Service - [facility] 5 15:33:31 58779 sumatript an medicatio n Not available Not available Not available 03/15/2025 25930 RxNorm Not Available formerly [facility] External Data Service - [facility] 5 07:31:55 Medications Name Sig Start [...] BY MOUTH EVERY DAY FOR 14 DAYS 02/21 /2024 completed Not Available Not Available Not Available [...] Available Not Available metolazone 5 mg tablet Take 1 tablet every day by oral route for 3 days, for 30 min before lasix.. 04/01 completed Not Available Not Available Not Available permethrin 5 % topical cream THOROUGHL [...] Not Available Not Available No t Available hydroxyzin e HCl 25 mg tablet Take 1 tablet 3 times a day by oral route as needed. 2024 active Not Available Not Available Not Avai lable morphine ER 15 mg tablet,ext ended release [...] Available Not Available diazepam 5 mg tablet BRING MEDICATIO N TO THE OFFICE WITH YOU, NURSE WILL INSTRUCT WHEN TO TAKE active Not Available Not Available No t Available levothyrox ine 112 mcg tablet Take [...] Last Updated DateTime 163.83 cm 25.2 kg/m2 36108.2 6 g 96 % 78 /min 20 /min 98 [degF] 130/80 mm[Hg] NICOLE CRANE [facility] 14:41:35 Social History Question Answer Notes LastModified by Organizat ion Details LastModified Time Tobacco Smoking Status Former Smoker Irene gustafson [facility] 09/05/2023 15:56:32 Which Illicit Or Recreational Drugs Have You Used? Leilani [email or web address] Information not available 11/02/2024 What Was The Date Of Your Most Recent Tobacco Screening? 03/22/2025 [email or web address] Information not available 03/22/2025 At What Age Did You Start Smoking Tobacco? 49 For 3 Weeks Only [email or web address] Information not available 11/02/2024 Sex: Unknown Functional Status Question Answer Note LastModified by Organizat ion Details LastModified Time Do you use any illicit or recreational drugs? Yes [email or web address] Information not available 11/02/2024 What is your level of alcohol consumption? None [email or web address] Information not available 11/02/2024 Mental Status None recorded. Family History Nothing Reported. Medical History No medical history recorded. Gynecological HistoryNo gynecological history recorded. Obstetrics History GPAL:G 0 P 0 0 0 0 Immunizations Vaccine Type Date Status Note Provider Nam e and Address Organization Details Recorded Time COVID-19, mRNA, LNP-S, PF, errol-sucrose, 30 mcg/0.3 mL 4 completed Gracie New [facility] 11/12/2023 15:11:33 Influenza, split virus, trivalent, PF 4 completed Not Available [facility] 03/15/2025 14:19:55 Influenza, adjuvanted, trivalent, PF 5 completed Not Available [facility] 03/15/2025 14:19:55 Pneumococcal conjugate PCV20, polysaccharide UIT049 conjugate, adjuvant, PF 5 completed NICOLE CRANE [facility] 05/24/2024 16:17:51 Past Encounters Encounter ID Performer Location Encounter Start Date Encounter Closed Date Diagnosis/Indication Diagnosis SNOMED-CT Code Diagnosis ICD10 Code Diagnosis IMO Codes Diagnosis Note [id number] KIERAN VO PA-C [facility] ([facility]) [address] [place] [address] 02/13/2025 14:26:45 02/13/2025 15:27:07 Edema 931945175 R60.9 Upper gastrointestinal bleeding 77714883 K92.2 532616 scope 03/[address] Ruiz. Scope 01/05/25 at [facility] small area of bleeding. needs plavix and ASA due to stent on 12/27/24 Stented co ronary artery 007040929 I25.10 Z95.5 99243635 Health Concerns Section Related Observation LastModified by Organization Detai ls LastModified Time None Recorded Concern Status LastModified by Organization Details LastModified Time None Recorded Payers Encounter Date Sequence Insurance Name Policy Number Policy Rivera Covered Member ID Rivera Member ID Guarantor Name 02/13/2025 1 [place] Tosha Perry [id number] Tosha Perry 02/13/2025 2 [employer] (MEDICARE SUPPLEMENT) Tosha Rancary [id number] Tosha Perry Notes Date Note Type Note Provider Name and Address Organization Details Recorded Time text/html EdemaReported by PatientHPIFor quality, patient reportspainfulbut [...] her GI doc. 10.28 KIERAN VO PA-C [address] [place] [address], [id number], [place] [facility] 02/13/2025 15:25:18 OBGyn Episode No OBEpisode recorded.
--- OUTSIDE RECORDS SUMMARY | 2025-04-08 06:24 | XMS_ITS | Continuity of Care Document ---
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 [address], [place], [address], 03/15/2025 15:23:47 Patient TargetsNo targets recorded. Patient InstructionsNo instructions recorded. Reason for Referral None Reported. Results Created Date Observation Date Name Description Value Unit Range Abnormal Flag Note LastModifiedBy Organization Detail LastModifiedTime 03/23/2003/22/2025 XR, hand, 3 or more view No observ ation record ed. [facility] [address] [place], [address], 03/25/2025 12:54:51 Result Notes None recorded. Problems Name Problem SNOMED Code Status Onset Date Resolution Date Notes Provider Name and Address Organization Details Recorded Time Hand pain 42759199 Completed 202205/14/2024 NICOLE gustafson [facility], RodgerL.CHarjeet 5 07:55:21 Hand pain 43836381 Completed 202205/14/2024 NICOLE gustafson [facility], LHarjeetL.CHarjeet 5 07:55:15 Low back pain 734867745 Completed 202305/14/2024 NICOLE gustafson [facility], RodgerL.CHarjeet 5 18:20:21 Deep venous thrombosi s of lower extremity 227357438 Completed 202305/14/2024 at [facility] non occlusi ve. IVC placed due to no able to take blood thinner s. NICOLE gustafson [facility], L.L.CHarjeet 5 07:54:08 Chronic pain 26525217 Active 2023 NICOLE gustafson [facility] 5 07:54:43 Hospital inpatient stay within past 30 days 08122084312 06 Completed 202305/14/2024 NICOLE gustafson [facility], L.L.CHarjeet 5 07:55:38 History of cervical spine fusion 68854603094 Completed 202305/14/2024 NICOLE gustafson [facility], RodgerL.CH[facility]jeet 5 07:55:29 Hypothyro idism 71378678 Active 2023 NICOLE gustafson [facility], RodgerLHarjeetCHarjeet 5 07:55:43 Depressiv e disorder 12424494 Active 2023 NICOLE HAEFFNER null, [facility] 5 07:54:53 Gastroeso phageal reflux disease without esophagit is 409263011 Active 2023 NICOLE HAEFFNER null, [facility] 5 07:55:09 Anxiety 14773630 Active 2023 NICOLE HAEFFNER null, [facility] 5 07:54:40 Rib pain 249777847 Completed 202305/14/2024 NICOLE HAEFFNER null, [facility] 5 07:57:21 Nausea 978027591 Completed 202305/14/2024 NICOLE HAEFFNER null, [facility] 5 07:55:56 Peptic ulcer 78057781 Completed 202305/14/2024 NICOLE HAEFFNER null, [facility] 5 07:57:13 Pain in bilateral legs 15763179131 320488 Completed 202305/14/2024 NICOLE HAEFFNER null, [facility] 5 07:56:52 Pain in left lower limb 552820628 Completed 202305/14/2024 NICOLE HAEFFNER null, [facility] 5 07:57:01 Acquired dilation of bile duct 19343918557 80278 Completed 202305/14/2024 NICOLE HAEFFNER null, [facility] 5 07:54:30 Deep venous thrombosi s 033397703 Completed 202305/14/2024 NICOLE HAEFFEDD null, [facility] 5 07:54:50 Anemia 560498486 Active 2023 NICOLE HADENISE null, [facility] 5 07:54:37 Pain in right arm 790226029 Completed 202305/14/2024 NICOLE HADENISE null, [facility] 5 07:57:07 Right upper quadrant pain 046052659 Completed 202305/14/2024 NICOLE ROSA MARIA null, [facility] 5 07:57:36 Nausea and vomiting 98728308 Completed 202305/14/2024 NICOLE ROSA MARIA null, [facility] 5 07:56:02 Edema 477950231 Completed 202305/14/2024 NICOLE HADENISE null, [facility] 5 07:54:58 Rheumatoi d arthritis 67343618 Active 2024 NICOLE ROSA MARIA null, [facility] 5 08:03:54 Chronic deep venous thrombosi s of lower extremity 76937504247 9106 Active 2024 NICOLE HADENISE null, [facility] 5 08:05:04 Low back pain 947137794 Active 2024 NICOLE HADENISE null, [facility] 5 18:20:21 Restless legs syndrome 33687578 Active 2024 NICOLE HADENISE null, [facility] 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 Procedures Surgical History Date Name Laterality Status Provider Name and Address Organization Details Recorded Time 2024 fluoroscopic angiography of coronary artery with contrast and insertion of stent completed NICOLE CRANE [facility], Job 5 18:02:58 2024 plain X-ray of chest completed PAULETTE JASON [facility], LHarjeetL.CHarjeet 5 00:10:[address] of abdomen and pelvis completed PAULETTE JASON [facility], RodgerLIgnacio 5 00:12:33 2023 insertion of arterial stent completed JER VO PA-C [address] [place], [address], [facility], L.L.CHarjeet 4 15:12:39 2023 colonoscopy completed KIERAN VO PA-C [address] [place], [address], [facility], RodgerLIgnacio 4 17:29:05 2023 esophagogastroduodenoscopy completed KIERAN VO PA-C [address] [place], [address], [facility], Job 4 17:08:01 2023 ultrasonography of liver completed NICOLE CRANE [facility], Job 4 16:43:05 2023 primary posterior decompression cervical cord and fusion completed KIERAN VO PA-C [address] [place], [address], [facility], Job 4 13:58:12 2023 insertion of inferior vena caval filter completed KIERAN VO PA-C [address] [place], [address], [facility], Job 4 13:58:28 2022 primary fusion of cervical spine completed KIERAN VO PA-C [address] [place], [address], [facility], RodgerLHarjeetCHarjeet 3 12:50:26 Imaging Results None recorded. Procedure Notes None recorded. Medical Equipment None Reported. Allergies Allergen ID Allergen Name Allergen Category Reaction Reaction Severity Criticality Documentation Date Start Date Code Code System Note Provider Name and Address Organization Details Recorded Time 10873 Benadryl medicatio n Not available Not available Not available 03/12/2023 83757 7 RxNorm NICOLE gustafson [facility], RodgerLIgnacio 3 12:01:01 48936 amitripty line medicatio n Not available Not available Not available 03/12/2023 704 RxNorm NICOLE gustafson [facility], LHarjeetLHarjeetCHarjeet 3 12:01:37 99938 tizanidin e medicatio n Not available Not available Not available 03/12/2023 20036 RxNorm NICOLE gustafson [facility], RodgerLHarjeetCHarjeet 3 12:08:21 25067 morphine medicatio n confusion Not available [facility] 09/02/2023 7052 RxNorm KIERAN VO PA-C [address] [place], [address], [facility] 4 15:15:03 96933 venlafaxi ne medicatio n itching Not available Not available 02/13/2025 45895 RxNorm NICOLE CRANE [facility] 5 14:50:24 94721 ibuprofen medicatio n Not available Not available [facility] 02/23/2025 5640 RxNorm Not Available wanda - External Data Service - [facility] 5 09:45:37 80867 acetamino phen medicatio n Not available Not available [facility] 02/23/2025 161 RxNorm Not Available wanda - External Data Service - prod 5 09:45:37 01646 prochlorp erazine medicatio n Not available Not available [facility] 02/23/2025 8704 RxNorm Not Available wanda - External Data Service - [facility] 5 09:45:37 83594 diphenhyd ramine medicatio n Not available Not available [facility] 02/23/2025 3498 RxNorm unrec ogniz ed react ion (text : Hyper activ e behav ior (find ing), code: 31487 000) (from exter nal sour e) Not Available wanda - External Data Service - prod 5 09:45:37 75092 leflunomi de medicatio n Not available Not available [facility] 02/23/20252024 70283 RxNorm Not Available wanda - External Data Service - prod 5 09:45:40 89383 sulfasala zine medicatio n Not available Not available [facility] 02/23/20252024 9524 RxNorm Not Available wanda - External Data Service - prod 5 09:45:40 28925 metoclopr amide Not available Not available Not available Not available 03/12/2025 6915 RxNorm Not Available wanda - External Data Service - prod 5 15:33:31 95877 sumatript an medicatio n Not available Not available Not available 03/15/2025 67077 RxNorm Not Available [facility] External Data Service - prod 5 07:31:55 [...] Updated DateTime 5 163.83 cm 24.3 kg/m2 48413.3 g 98 % 72 /min 18 /min 98 [degF] 136/80 mm[Hg] NICOLE CRANE [facility] 5 14:34:09 Social History Question Answer Notes LastModified by [employer] Details LastModified Time Tobacco Smoking Status Former Smoker Irene Matthewmiracle gustafson [facility] 09/05/2023 15:56:32 Which Illicit Or Recreational Drugs Have You Used? Leilani [email or web address] Information not available 11/02/2024 What Was The Date Of Your Most Recent Tobacco Screening? 03/22/2025 [email or web address] Information not available 03/22/2025 At What Age Did You Start Smoking Tobacco? 49 For 3 Weeks Only [email or web address] Information not available 11/02/2024 Sex: Unknown Functional Status Question Answer Note LastModified by [employer] Details LastModified Time Do you use any illicit or recreational drugs? Yes [email or web address] Information not available 11/02/2024 What is your level of alcohol consumption? None [email or web address] Information not available 11/02/2024 Mental Status None recorded. Family History Nothing Reported. Medical History No medical history recorded. Gynecological HistoryNo gynecological history recorded. Obstetrics History GPAL:G 0 P 0 0 0 0 Immunizations Vaccine Type Date Status Note Provider Nam e and Address Organization Details Recorded Time COVID-19, mRNA, LNP-S, PF, errol-sucrose, 30 mcg/0.3 mL 4 completed Gracie gustafson [facility] 11/12/2023 15:11:33 Influenza, split virus, trivalent, PF 4 completed Not Available [facility] 03/15/2025 14:19:55 Influenza, adjuvanted, trivalent, PF 5 completed Not Available [facility] 03/15/2025 14:19:55 Pneumococcal conjugate PCV20, polysaccharide [id number] conjugate, adjuvant, PF completed NICOLE CRANE [facility], Job 05/24/2024 16:17:51 Past Encounters Encounter ID Performer Location Encounter Start Date Encounter Closed Date Diagnosis/Indication Diagnosis SNOMED-CT Code Diagnosis ICD10 Code Diagnosis IMO Codes Diagnosis Note [id number] KIERAN VO PA-C [facility] ([facility]) [address] [place] [address] 02/13/2025 14:26:45 02/13/2025 15:27:07 Edema 542539409 R60.9 Upper gastrointestinal bleeding 38376966 K92.2 507670 scope 03/[address] Ruiz. Scope 01/05/25 at [facility] small area of bleeding. needs plavix and ASA due to stent on 12/27/24 Stented co ronary artery 518861789 I25.10 Z95.5 [id number] KIERAN VO PA-C [facility] ([facility]) [address] [place] [address] 03/15/2025 14:19:35 03/19/2025 10:38:07 Generalized anxiety disorder 88076071 F41.1 232340 monitor Benzo requests. Has several rxes xanax, valium and clonazepam from [facility] old PCP, Nerve root disorder 7227 4001 M54.12 207115 hx of the fusion C2 to t1. with new and worseing neck pain and nerve pain into the right shoulder pains. Hypokalemia 03667396 E87 .6 9791 on Kcl. was 2.9 at ER today recheck BMP in 2 weeks. Health Concerns Section Related Observation LastModified by Organization Detai ls LastModified Time None Recorded Concern Status LastModified by Organization Details LastModified Time None Recorded Payers Encounter Date Sequence Insurance Name Policy Number Policy Rivera Covered Member ID Rivera Member ID Guarantor Name 03/15/2025 1 [place] Tosha Perry [id number] Tosha Perry 03/15/2025 2 [employer] (MEDICARE SUPPLEMENT) Tosha Perry [id number] Tosha Perry Notes Date Note Type Note [...] like its grinding. KIERAN VO PA-C [address] [place], [address], [place] [facility] 03/18/2025 21:21:13 OBGyn Episode No OBEpisode recorded.
--- OUTSIDE RECORDS SUMMARY | 2025-04-08 06:24 | XMS_ITS | Continuity of Care Document ---
Author Organization [facility] Job Sheriff, [facility] ([facility]) Address [address] [place] [address] Care Team Providers Care Medical Imaging Technician Name Role Phone KIERAN VO Primary Care [...] more view No observ ation record ed. [facility] [address] [place], [address], 03/25/2025 12:54:51 Result Notes None recorded. Problems Name Problem SNOMED Code Status Onset Date Resolution Date Notes Provider Name and Address Organization Details Recorded Time Hand pain 86771026 Completed 202205/14/2024 [facility] 07:55:21 Hand pain 08675188 Completed 202205/14/2024 [facility] 02/02/202 5 07:55:15 Low back pain 923580979 Completed 202305/14/2024 NICOLE gustafson, [facility], DianeCHarjeet 5 18:20:21 Deep venous thrombosi s of lower extremity 606459220 Completed 202305/14/2024 at [facility] non occlusi ve. IVC placed due to no able to take blood thinner s. NICOLE gustafson, [facility], RodgerLHarjeetCHarjeet 5 07:54:08 Chronic pain 29500961 Active 2023 NICOLE gustafson, [facility], DianeCHarjeet 5 07:54:43 Hospital inpatient stay within past 30 days 25392049989 06 Completed 202305/14/2024 NICOLE gustafson, [facility], RodgerLHarjeetCHarjeet 5 07:55:38 History of cervical spine fusion 99514379973 01 Completed 202305/14/2024 NICOLE gustafson, [facility], RodgerLHarjeetCHarjeet 5 07:55:29 Hypothyro idism 85240052 Active 2023 NICOLE gustafson [facility], Rod[facility]LHarjeetCH[facility]jeet 5 07:55:43 Depressiv e disorder 98245916 Active 2023 NICOLE gustafson, [facility], LHarjeetL.CHarjeet 5 07:54:53 Gastroeso phageal reflux disease without esophagit is 656493117 Active 2023 NICOLE gustafson, [facility], LHarjeetL.CHarjeet 5 07:55:09 Anxiety 94682627 Active 2023 NICOLE gustafson [facility], L[facility]jeetL.C. 5 07:54:40 Rib pain 029577082 Completed 202305/14/2024 NICOLE HADENISE null, [facility] 5 07:57:21 Nausea 817696322 Completed 202305/14/2024 [facility] 5 07:55:56 Peptic ulcer 03233681 Completed 202305/14/2024 NICOLE HAEFFEDD null, [facility] 5 07:57:13 Pain in bilateral legs 09928668375 519266 Completed 202305/14/2024 [facility]ITFEDD [facility] 5 07:56:52 Pain in left lower limb 439229444 Completed 202305/14/2024 NICOLE HAEFFNER null, [facility] 5 07:57:01 Acquired dilation of bile duct 07005360613 36856 Completed 202305/14/2024 NICOLE HAEFFEDD null, [facility] 5 07:54:30 Deep venous thrombosi s 593936527 Completed 202305/14/2024 NICOLE HAEFFNER null, [facility] 5 07:54:50 Anemia 420247936 Active 2023 NICOLE HAEFFEDD null, [facility] 5 07:54:37 Pain in right arm 024734682 Completed 202305/14/2024 NICOLE HAEFFEDD null, [facility] 5 07:57:07 Right upper quadrant pain 446649467 Completed 202305/14/2024 NICOLE ROSA MARIA null, [facility] 5 07:57:36 Nausea and vomiting 11605871 Completed 202305/14/2024 [facility] 5 07:56:02 Edema 160742811 Completed 202305/14/2024 NICOLE ROSA MARIA null, [facility] 5 07:54:58 Rheumatoi d arthritis 56548610 Active 2024 NICOLE ROSA MARIA [facility] 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 5 08:05:04 Low back pain 140033626 Active 2024 NICOLE ROSA MARIA null, [facility] 5 18:20:21 Restless legs syndrome 83477240 Active 2024 NICOLE ROSA MARIA null, [facility] 5 18:20:23 Chronic insomnia 915441326 Active 2024 NICOLE HADENISE null, [facility] 5 18:31:19 Retention of urine 694766341 Active 2024 [facility] 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 Procedures Surgical History Date Name Laterality Status Provider Name and Address Organization Details Recorded Time 2024 fluoroscopic angiography of coronary artery with contrast and insertion of stent completed NICOLE CRANE [facility], RodgerLHarjeetCHarjeet 5 18:02:58 2024 plain X-ray of chest completed PAULETTE JASON [facility], DianeCHarjeet 5 00:10:[address] of abdomen and pelvis completed PAULETTE JASON [facility], Job 5 00:12:33 2023 insertion of arterial stent completed JER VO PA-C [address] [place], [address], [facility], RodgerLHarjeetCHarjeet 4 15:12:39 2023 colonoscopy completed KIERAN VO PA-C [address] [place], [address], [facility], RodgerLHarjeetCHarjeet 4 17:29:05 2023 esophagogastroduodenoscopy completed KIERAN VO PA-C [address] [place], [address], [facility], LHarjeetLHarjeetCHarjeet 4 17:08:01 2023 ultrasonography of liver completed NICOLE CRANE [facility], RodgerLIgnacio 4 16:43:05 2023 primary posterior decompression cervical cord and fusion completed KIERAN VO PA-C [address] [place], [address], [facility], Job 4 13:58:12 2023 insertion of inferior vena caval filter completed KIERAN VO PA-C [address] [place], [address], [facility], Job 4 13:58:28 2022 primary fusion of cervical spine completed KIERAN VO PA-C [address] [place], [address], [facility], LHarjeetLHarjeetCHarjeet 3 12:50:26 Imaging Results None recorded. Procedure Notes None recorded. Medical Equipment None Reported. Allergies Allergen ID Allergen Name Allergen Category Reaction Reaction Severity Criticality Documentation Date Start Date Code Code System Note Provider Name and Address Organization Details Recorded Time 54712 Benadryl medicatio n Not available Not available Not available 03/12/2023 53817 7 RxNorm NICOLE gustafson [facility], RodgerLHarjeetCHarjeet 3 12:01:01 39709 amitripty line medicatio n Not available Not available Not available 03/12/2023 704 RxNorm NICOLE gustafson [facility], L.LHarjeetCHarjeet 3 12:01:37 58093 tizanidin e medicatio n Not available Not available Not available 03/12/2023 05856 RxNorm NICOLE gustafson [facility], LHarjeetLHarjeetCHarjeet 3 12:08:21 38460 morphine medicatio n confusion Not available [facility] 09/02/2023 7052 RxNorm KIERAN VO PA-C [address] [place], [address], [facility], LHarjeetLHarjeetCHarjeet 4 15:15:03 83973 venlafaxi ne medicatio n itching Not available Not available 02/13/2025 21544 RxNorm NICOLE gustafson [facility], LHarjeetLHarjeetCHarjeet 5 14:50:24 33896 ibuprofen medicatio n Not available Not available [facility] 02/23/2025 5640 RxNorm Not Available wanda - External Data Service - [facility] 5 09:45:37 39395 acetamino phen medicatio n Not available Not available [facility] 02/23/2025 161 RxNorm Not Available [facility] External Data Service - [facility] 5 09:45:37 80491 prochlorp erazine medicatio n Not available Not available [facility] 02/23/2025 8704 RxNorm Not Available wanda - External Data Service - [facility] 5 09:45:37 95778 diphenhyd ramine medicatio n Not available Not available [facility] 02/23/2025 3498 RxNorm unrec ogniz ed react ion (text : Hyper activ e behav ior (find ing), code: 10935 000) (from [facility]ter [facility] e) Not Available wanda - External Data Service - [facility] 5 09:45:37 47621 leflunomi de medicatio n Not available Not available [facility] 02/23/20252024 66950 RxNorm Not Available wanda - External Data Service - [facility] 5 09:45:40 13162 sulfasala zine medicatio n Not available Not available [facility] 02/23/20252024 9524 RxNorm Not Available [facility] External Data Service - [facility] 5 09:45:40 21363 metoclopr amide Not available Not available Not available Not available 03/12/2025 6915 RxNorm Not Available wanda - External Data Service - prod 5 15:33:31 91535 sumatript an medicatio n Not available Not available Not available 03/15/2025 65887 RxNorm Not Available wanda - External Data Service - [facility] 5 07:31:55 Medications Name Sig Start Date [...] Last Updated DateTime 163.83 cm 23.5 kg/m2 65301.3 4 g 95 % 70 /min 18 /min 97.9 [degF] 120/70 mm[Hg] NICOLE CRANE [facility], [facility] 14:19:08 Social History Question Answer Notes LastModified by Organizat ion Details LastModified Time Tobacco Smoking Status Former Smoker Irene Naylor janay, [facility] 09/05/2023 15:56:32 Which Illicit Or Recreational Drugs Have You Used? Leilani [email or web address] Information not available 11/02/2024 What Was The Date Of Your Most Recent Tobacco Screening? 03/22/2025 [email or web address] Information not available 03/22/2025 At What Age Did You Start Smoking Tobacco? 49 For 3 Weeks Only [email or web address] Information not available 11/02/2024 Sex: Unknown Functional Status Question Answer Note LastModified by Organizat ion Details LastModified Time Do you use any illicit or recreational drugs? Yes [email or web address] Information not available 11/02/2024 What is your level of alcohol consumption? None [email or web address] Information not available 11/02/2024 Mental Status None recorded. Family History Nothing Reported. Medical History No medical history recorded. Gynecological HistoryNo gynecological history recorded. Obstetrics History GPAL:G 0 P 0 0 0 0 Immunizations Vaccine Type Date Status Note Provider Nam e and Address Organization Details Recorded Time COVID-19, mRNA, LNP-S, PF, errol-sucrose, 30 mcg/0.3 mL 4 completed Gracie gustafson [facility] 11/12/2023 15:11:33 Influenza, split virus, trivalent, PF 4 completed Not Available [facility] 03/15/2025 14:19:55 Influenza, adjuvanted, trivalent, PF 5 completed Not Available [facility] 03/15/2025 14:19:55 Pneumococcal conjugate PCV20, polysaccharide [id number] conjugate, adjuvant, PF 5 completed NICOLE gustafson [facility] 05/24/2024 16:17:51 Past Encounters Encounter ID Performer Location Encounter Start Date Encounter Closed Date Diagnosis/Indication Diagnosis SNOMED-CT Code Diagnosis ICD10 Code Diagnosis IMO Codes Diagnosis Note [id number] KIERAN VO PA-C [facility] ([facility]) [address] [place] [address] 01/11/2025 14:06:00 01/12/2025 08:44:46 Multi vessel coronary artery disease 626697924 I25.10 2968902 recent stents x 2 back to back. 01/04 need one year of dual plt asa and plavix therapy for 1 yr. Post-disch arge follow-up 670763669 Z09 930594 Exposure t o SARS-CoV-2 475823234 Z20.822 5910131853 pt left without being tested. Upper gastrointestinal bleeding 87207628 K92.2 646588 scope 03/[address] Ruiz. Scope 01/05/25 at [facility] small area of bleeding. needs plavix and ASA due to stent on 12/27/24 Health Concerns Section Related Observation LastModified by Organization Detai ls LastModified Time None Recorded Concern Status LastModified by Organization Details LastModified Time None Recorded Payers Encounter Date Sequence Insurance Name Policy Number Policy Rivera Covered Member ID Rivera Member ID Guarantor Name 01/11/2025 1 [place]ICARE [place]: [employer] Tosha S [place] [id number] Tosha Perry 01/11/2025 2 [employer] [facility] (MEDICARE SUPPLEMENT) Tosha Perry [id number] Tosha Perry Notes Date Note Type Note [...] saw no pneumonia KIERAN VO PA-C [address] [place], [address], [facility], Job 01/11/2025 18:13:05 OBGyn Episode No OBEpisode recorded.
--- OUTSIDE RECORDS SUMMARY | 2025-04-08 06:24 | XMS_ITS | Data Portability ---
Author Organization [facility] Address [address] [address] Care Team Providers Care Review Trainer Name Role Phone DIANA GARCIA Primary Care Provider Unavailabl e Assessment No assessment recorded. Plan of Treatment Reminders Order Date Submit Date Provider Last Modified By Organization Details Last Modified Time Details Appointments OFFICE VISIT 20 2025 02:00P Anny GARCIA PA-C Not available Not available Not available Lab CBC 2024 025 [email or web address] [facility], [address], [place], [address], 03/06/2025 08:07:27 BMP, serum or plasma 2024 025 [email or web address] [facility], [address], [place], [address], 03/06/2025 08:07:27 BMP, serum or plasma 2024 025 [email or web address], [address], [place], [address], 12/11/2024 15:14:32 CBC 2024 025 [email or web address] [facility], [address], [place], [address], 12/11/2024 15:14:32 Referral physical therapist referral 2024 [place] [address] [facility], [address], [place], [address], 12/06/2024 15:40:29 physical therapist referral [address], [address] [place], [address], 01/02/2025 15:03:25 Procedures None recorded. Surgeries None recorded. Imaging MRI, cervical spine, w/o contrast 2024 [facility], [address] [place], [address], 03/26/2025 15:10:41 Medication Orders fluoxetin e 10 mg capsule 2024 [facility]acy #[id number], [address], [facility] [address], [address], 03/15/2025 15:23:47 atorvasta tin 40 mg tablet 2024 [id number] [address], [facility] [address], [address], 02/13/2025 15:20:22 ranolazin e ER 500 mg tablet,ex tended release,1 2 hr 2024 [facility]/Pharmacy #[id number], [address], [facility], [place], [address], 02/13/2025 15:20:22 furosemid e 40 mg tablet 2024 [facility]/Pharmacy #[id number], [address], [facility] [address], [address], 02/13/2025 15:16:44 potassium chloride 40 mEq/15 mL oral liquid 2024 025 [id number], [address], [place], [address], 02/13/2025 15:16:44 gabapenti n 300 mg capsule 2024 [id number], [address], [address], [place], [address], 12/01/2024 09:30:07 ramelteon 8 mg tablet 2024 025 [id number], [address], [address], [place], [address], 12/01/2024 09:30:10 promethaz ine 25 mg tablet 2024 025 [id number], [address], [address], [place], [address], 03/22/2025 16:12:11 folic acid 1 mg tablet 2024 025 [id number], [address], [address], [place], [address], 12/01/2024 09:30:09 pantopraz ole 40 mg tablet,de layed release 2024 [address]25 [id number], [address], [address], [place], [address], 12/01/2024 09:30:07 Patient TargetsNo targets recorded. Patient [...] more view No observ ation record ed. [facility] [address] [place], [address], 03/25/2025 12:54:51 Result Notes None recorded. Problems Name Problem SNOMED Code Status Onset Date Resolution Date Notes Provider Name and Address Organization Details Recorded Time Hand pain 15622633 Completed 202205/14/2024 NICOLE gustafson [facility] 5 07:55:21 Hand pain 26778417 Completed 202205/14/2024 NICOLE gustafson [facility], L.L.CHarjeet 5 07:55:15 Low back pain 941527969 Completed 202305/14/2024 NICOLE gustafson [facility] 5 18:20:21 Deep venous thrombosi s of lower extremity 852217074 Completed 202305/14/2024 at [facility] non occlusi ve. IVC placed due to no able to take blood thinner s. NICOLE gustafson [facility] 5 07:54:08 Chronic pain 24917792 Active 2023 NICOLE gustafson [facility] 5 07:54:43 Hospital inpatient stay within past 30 days 67293307376 06 Completed 202305/14/2024 NICOLE gustafson [facility] L.L.CHarjeet 5 07:55:38 History of cervical spine fusion 94860142569 Completed 202305/14/2024 NICOLE gustafson [facility] 5 07:55:29 Hypothyro idism 26408745 Active 2023 NICOLE HALESLYFEDD null, [facility] 5 07:55:43 Depressiv e disorder 12574416 Active 2023 NICOLE HAEFFNER null, [facility] 5 07:54:53 Gastroeso phageal reflux disease without esophagit is 582959755 Active 2023 NICOLE HAEFFNER null, [facility] 5 07:55:09 Anxiety 19760706 Active 2023 NICOLE HAEFFNER null, [facility] 5 07:54:40 Rib pain 662640700 Completed 202305/14/2024 NICOLE HAEFFNER null, [facility] 5 07:57:21 Nausea 527475002 Completed 202305/14/2024 [facility] 07:55:56 Peptic ulcer 51572795 Completed 202305/14/2024 NICOLE HAEFFNER null, [facility] 5 07:57:13 Pain in bilateral legs 38148220758 754372 Completed 202305/14/2024 NICOLE HAEFFNER null, [facility] 5 07:56:52 Pain in left lower limb 926073452 Completed 202305/14/2024 [facility] 5 07:57:01 Acquired dilation of bile duct 04460655293 59461 Completed 202305/14/2024 NICOLE HAEFFEDD null, [facility] 5 07:54:30 Deep venous thrombosi s 376346885 Completed 202305/14/2024 NICOLE HAEFFNER null, [facility] 5 07:54:50 Anemia 730496763 Active 2023 NICOLE HAEFFNER null, [facility] 5 07:54:37 Pain in right arm 915556659 Completed 202305/14/2024 NICOLE HALESLYFEDD null, [facility] 5 07:57:07 Right upper quadrant pain 858086878 Completed 202305/14/2024 NICOLE HAEFFNER null, [facility] 5 07:57:36 Nausea and vomiting 76374936 Completed 202305/14/2024 NICOLE HAEFFNER null, [facility] 5 07:56:02 Edema 045178577 Completed 202305/14/2024 NICOLE HADENISE null, [facility] 5 07:54:58 Rheumatoi d arthritis 36014389 Active 2024 NICOLE HAEFFNER null, [facility] 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 5 08:05:04 Low back pain 142524028 Active 2024 NICOLE gustafson [facility].L.CHarjeet 5 18:20:21 Restless legs syndrome 56993505 Active [address] [facility], LHarjeetL.CHarjeet 5 18:20:23 Chronic insomnia 380314020 Active [address] [facility], LHarjeetLHarjeetCHarjeet 5 18:31:19 Retention of urine 904461963 Active 20[address] [facility] [facility], LHarjeetL.CHarjeet 5 14:49:35 Infestati on by Sarcoptes scabiei cruz hominis 913166854 Active [address] [facility], Job 13:29:50 Problem Notes None recorded. Procedures Surgical History Date Name Laterality Status Provider Name and Address Organization Details Recorded Time 2024 fluoroscopic angiography of coronary artery with contrast and insertion of stent completed NICOLE CRANE [facility], RodgerLIgnacio 5 18:02:58 2024 plain X-ray of chest completed PAULETTE JASON [facility] 5 00:10:[address] of abdomen and pelvis completed PAULETTE JASON [facility]et 5 00:12:33 2023 insertion of arterial stent completed JER GARCIA PA-C [address] [place], [address], [facility], Job 4 15:12:39 2023 colonoscopy completed DIANA GARCIA PA-C [address] [place], [address], [facility] 4 17:29:05 2023 esophagogastroduodenoscopy completed DIANA GARCIA PA-C [address] [place], [address], [facility] 4 17:08:01 2023 ultrasonography of liver completed NICOLE CRANE [facility] 4 16:43:05 2023 primary posterior decompression cervical cord and fusion completed DIANA GARCIA PA-C [address] [place], [address], [facility] 4 13:58:12 2023 insertion of inferior vena caval filter completed DIANA GARCIA PA-C [address] [place], [address], [facility] 4 13:58:28 2022 primary fusion of cervical spine completed DIANA GARCIA PA-C [address] [place], [address], [facility] 3 12:50:26 Imaging Results None recorded. Procedure Notes None recorded. Medical Equipment None Reported. Allergies Allergen ID Allergen Name Allergen Category Reaction Reaction Severity Criticality Documentation Date Start Date Code Code System Note Provider Name and Address Organization Details Recorded Time 28748 Benadryl medicatio n Not available Not available Not available 03/12/2023 41927 7 RxNorm NICOLE gustafson [facility], LHarjeetL.CHarjeet 3 12:01:01 48960 amitripty line medicatio n Not available Not available Not available 03/12/2023 704 RxNorm NICOLE gustafson [facility], L.L.CHarjeet 3 12:01:37 55452 tizanidin e medicatio n Not available Not available Not available 03/12/2023 99837 RxNorm NICOLE ROSA MARIA gustafson, [facility] 3 12:08:21 88745 morphine medicatio n confusion Not available [facility] 09/02/2023 7052 RxNorm DIANA GARCIA PA-C [address] [place] [address], [address] , [facility] 4 15:15:03 02746 venlafaxi ne medicatio n itching Not available Not available 02/13/2025 60459 RxNorm NICOLE ROSA MARIA gustafson, [facility] 5 14:50:24 24387 ibuprofen medicatio n Not available Not available [facility] 02/23/2025 5640 RxNorm Not Available wanda - External Data Service - prod 5 09:45:37 64373 acetamino phen medicatio n Not available Not available [facility] 02/23/2025 161 RxNorm Not Available wanda - External Data Service - prod 5 09:45:37 03885 prochlorp erazine medicatio n Not available Not available [facility] 02/23/2025 8704 RxNorm Not Available wanda - External Data Service - prod 5 09:45:37 19467 diphenhyd ramine medicatio n Not available Not available [facility] 02/23/2025 3498 RxNorm unrec ogniz ed react ion (text : Hyper activ e behav ior (find ing), code: 10425 000) (from [facility]) Not Available wanda - External Data Service - prod 5 09:45:37 35458 leflunomi de medicatio n Not available Not available [facility] 02/23/20252024 78056 RxNorm Not Available wanda - External Data Service - prod 5 09:45:40 30274 sulfasala zine medicatio n Not available Not available [facility] 02/23/20252024 9524 RxNorm Not Available wanda - External Data Service - prod 5 09:45:40 90284 metoclopr amide Not available Not available Not available Not available 03/12/2025 6915 RxNorm Not Available wanda - External Data Service - [facility] 5 15:33:31 03786 sumatript an medicatio n Not available Not available Not available 03/15/2025 00934 RxNorm Not Available wanda - External Data Service - [facility] 5 07:31:55 Medications Name Sig Start [...] 8 HOURS NEEDED FOR MUSCLE SPASTICIT Y 12/01 /2023 completed Not Available Not Available Not Available [...] Updated DateTime 5 163.83 cm 24.5 kg/m2 31128.8 9 g 95 % 80 /min 18 /min 97 [degF] 126/80 mm[Hg] [facility] 5 08:55:39 Date Recorded Body height Body mass index (BMI) Body weight Oxygen saturation Heart rate Respiratory rate Body temperature Systolic And Diastolic Provider Name and Address Organization Details Last Updated DateTime 5 163.83 cm 23.5 kg/m2 99463.3 4 g 95 % 70 /min 18 /min 97.9 [degF] 120/70 mm[Hg] [facility] 5 14:19:08 Date Recorded Body height Body mass index (BMI) Body weight Oxygen saturation Heart rate Respiratory rate Body temperature Systolic And Diastolic Provider Name and Address Organization Details Last Updated DateTime 5 163.83 cm 25.2 kg/m2 91106.2 6 g 96 % 78 /min 20 /min 98 [degF] 130/80 mm[Hg] [facility] 5 14:41:35 Date Recorded Body height Body mass index (BMI) Body weight Oxygen saturation Heart rate Respiratory rate Body temperature Systolic And Diastolic Provider Name and Address Organization Details Last Updated DateTime 5 163.83 cm 24.3 kg/m2 85321.3 g 98 % 72 /min 18 /min 98 [degF] 136/80 mm[Hg] [facility] 5 14:34:09 Date Recorded Body height Body mass index (BMI) Body weight Oxygen saturation Heart rate Body temperature Systolic And Diastolic Provider Name and Address Organization Details Last Updated DateTime 5 163.83 cm 25.2 kg/m2 33402.2 6 g 98 % 75 /min 98.6 [degF] 146/70 mm[Hg] Paulette Paredeskristina [facility] 5 16:14:48 Social History Question Answer Notes LastModified by [employer] ion Details LastModified Time Tobacco Smoking Status Former Smoker Irene Matthewmiracle gustafson [facility] 09/05/2023 15:56:32 Which Illicit Or Recreational Drugs Have You Used? Leilani [email or web address] Information not available 11/02/2024 What Was The Date Of Your Most Recent Tobacco Screening? 03/22/2025 [email or web address] Information not available 03/22/2025 At What Age Did You Start Smoking Tobacco? 49 For 3 Weeks Only [email or web address] Information not available 11/02/2024 Sex: Unknown Functional Status Question Answer Note LastModified by [employer] Details LastModified Time Do you use any illicit or recreational drugs? Yes Information not available 11/02/2024 What is your level of alcohol consumption? None [email or web address] Information not available 11/02/2024 Mental Status None recorded. Family History Nothing Reported. Medical History No medical history recorded. Gynecological HistoryNo gynecological history recorded. Obstetrics History GPAL:G 0 P 0 0 0 0 Immunizations Vaccine Type Date Status Note Provider Nam e and Address Organization Details Recorded Time COVID-19, mRNA, LNP-S, PF, errol-sucrose, 30 mcg/0.3 mL 4 completed Gracie gustafson [facility] 11/12/2023 15:11:33 Influenza, split virus, trivalent, PF 4 completed Not Available [facility] 03/15/2025 14:19:55 Influenza, adjuvanted, trivalent, PF 5 completed [facility] Available [facility] 03/15/2025 14:19:55 Pneumococcal conjugate PCV20, polysaccharide [id number] conjugate, adjuvant, PF [address] [facility], [facility] 05/24/2024 16:17:51 Past Encounters Encounter ID Performer Location Encounter Start Date Encounter Closed Date Diagnosis/Indication Diagnosis SNOMED-CT Code Diagnosis ICD10 Code Diagnosis IMO Codes Diagnosis Note [id number] DIANA GARCIA PA-C [facility] ([facility]) [address] [place] [address] 03/12/2023 11:51:10 03/15/2023 10:06:45 Pain of right hand 2784407405 76711 M79.641 Ganglion c yst of right wrist 0556269482 61817 M67.431 Acute urin albert tract infection 236437374 N39.0 Cervical spondylosis 387 822335 M47.812 C3/[address] Hung Feb 01 Chronic low back pain 27 0445954 M54.50 Gallstone pancreatitis 37228925 K85.10 Has enlarge CBD on CT 14.5 mm. GB is absent Administra tion of viral vaccine 15783751 Z23 Rheumatoid arthritis [address] Crabtree CCA form filled out during today's office visit [id number] DIANA GARCIA PA-C [facility] ([facility]) [address] [place] [phone] 04/15/2023 14:41:58 04/15/2023 16:52:11 Neuropathy 668791198 G62.9 Candidiasis of mouth 797 24549 B37.0 will tx with oral meds with suspiscion she may have some esophageal candidiasi s. Nausea and vomiting 1691999 R11.2 Iron defic iency anemia 05009699 D50.9 Hypothyroidism 65463180 E03.9 Rheumatoid arthritis [address] Crabtree CCA form filled out during today's office visit Low back pain 263313087 M54.50 [id number] DIANA GARCIA PA-C [facility] ([facility]) [address] [place] [phone] 05/19/2023 13:23:55 05/25/2023 12:39:49 History of cervical spine fusion 5736998842 101 Z98.1 2.2.24 Posterior C2-T1 with Dr. Hung (3 neck surgeries in total) Upper gastrointestinal bleeding 50844465 K92.89 scope 03/[address] Ruiz. Deep venou s thrombosis 430198628 I82.409 found 2.2.24 not a candidate for anticoat due to recent GI bleed so IVC placed. Generalize d anxiety disorder 33147265 F41.1 monitor Benzo requests. Has several rxes xanax, valium and clonazepam from [facility] mendes PCP, Dr. Hung ortho, and Dr. Gomes saw in SNF. Chronic pain syndrome 37 4582896 G89.4 Oxcontin 7.[address] Lisa. Recently increased to 10mg q 4 hrs from recent surgery. (temporary rx for [place] given waiting for Oxy to come in then d/margaret 2.8.24 KM) Anemia 565148752 D64.9 cbc, cmp on Wednesday [id number] Srinivasan Gomes DO [facility] ([facility]) [address] [place] [address] 5 05/25/2023 08:03:34 05/31/2023 12:19:42 Hospital inpatient stay within past 30 days 0653132222 106 Z76.89 History of cervical spine fusion 4557427448 101 Z98.1 Hypothyroidism 32115370 E03.9 Chronic pain 12763578 G8 9.29 Depressive disorder 3548 9007 F32.A Gastroesop hageal reflux disease without esophagitis 749718205 K21.9 [id number] Srinivasan Gomes DO [facility] ([facility]) [address] [place] [address] 5 06/01/2023 09:36:24 06/09/2023 06:46:40 Anxiety 46531583 F41.9 Chronic pain 31620464 G8 9.29 History of cervical spine fusion 8933853828 101 Z98.1 [id number] Srinivasan Gomes DO [facility] ([facility]) [address] [place], [place] [address] 06/08/2023 08:37:13 06/10/2023 16:36:08 History of cervical spine fusion 6857537797 101 Z98.1 Anxiety 70764644 F41.9 Chronic pain 32241249 G8 9.29 Depressive disorder 3548 9007 F32.A [id number] Srinivasan Gomes DO [facility] ([facility]) [address] [place] [phone] 06/15/2023 09:21:43 06/28/2023 15:09:18 History of cervical spine fusion 0185330196 101 Z98.1 Low back pain 459811409 M54.50 Depressive disorder 3548 9007 F32.A [id number] Ulysses Rivera MD [facility] ([facility]) [address] [place] [phone] 06/24/2023 12:59:38 06/27/2023 18:03:54 Anxiety 68157267 F41.9 Refill provided for medication . Rib pain 800816284 R07.8 1 Patient has pain along her [...] over the next 4 to 8 weeks. [id number] DIANA GARCIA PA-C [facility] ([facility]) [address] [place] [phone] 07/02/2023 09:48:49 07/02/2023 10:43:55 Spinal stenosis in cervical region 84037229 M48.02 Hospital i npatient stay within past 30 days 1371230477 106 Z76.89 Generalize d anxiety disorder 49020666 F41.1 monitor Benzo requests. Has several rxes xanax, valium and clonazepam from [facility] mendes PCP, Dr. Hung ortho, and Dr. Gomes saw in SNF. Opioid dependence 591725 00 F11.20 post cervical surgery 06/05. Getting in to Dr. Hung. [id number] DIANA GARCIA PA-C [facility] ([facility]) [address] [place] [id number] 08/03/2023 15:31:05 08/07/2023 08:56:13 Peptic ulcer 28039392 K27.9 EGD 11.1.23 neg H.pylori then Deep venou s thrombosis 099107200 I82.409 found 2.2.24 not a candidate for anticoat due to recent GI bleed so IVC placed. Abdominal pain 54985727 R10.9 Anemia 686976327 D64.9 Chronic pain 45429065 G8 9.29 dose drops from 600 to 300 to see if helps with her nausea [id number] DIANA GARCIA PA-C [facility] ([facility]) [address] [place] [phone] 09/02/2023 14:20:34 09/02/2023 17:34:26 Abdominal pain 99172928 R10.9 since pt is in the worst pain of her life I recommend she go to ER to get work up of her abd pain and get pain control for her chronic cervical stenosis with recent surgery that so far has not been helpful. 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 54388505 M48.02 [id number] MALIK BRUSH [facility] ([facility]) [address] [place] [id number] 09/05/2023 15:44:16 09/06/2023 13:27:43 Middle ear effusion 7696279969 H74.8X9 Discussed use of antibiotic the full 7 days. May take tylenol/mo rima for discomfort .Return if you develop worsening pain, drainage from the ear or concerns arise. Vertigo 553343658 R42 [id number] DIANA GARCIA PA-C [facility] ([facility]) [address] [place] [address] 5 09/20/2023 11:54:13 09/20/2023 16:12:14 [id number] Williams Valerio DO [facility] ([facility]) [address] [place] [phone] 5 09/20/2023 12:40:32 09/20/2023 13:56:13 Anxiety 80487490 F41.9 Acute sero us otitis media of bilateral ears 7214139220 297778 H65.03 [id number] DIANA GARCIA PA-C [facility] ([facility]) [address] [place] [phone] 5 09/22/2023 11:55:06 09/23/2023 12:29:54 [id number] Srinivasan Gomes DO [facility] ([facility]) [address] [place] [phone] 5 10/05/2023 08:21:33 10/06/2023 08:39:15 [id number] DIANA GARCIA PA-C [facility] ([facility]) [address] [place] [phone] 5 10/06/2023 12:17:06 10/20/2023 08:37:19 Pain in right arm 669714634 M79.[address] HENRY, MRI ,US Anemia 453148971 D64.9 HEMOCCULT x3 due to persistant anemia. GI appt TOMORROW in [facility] Right uppe r quadrant pain 263456814 R10.11 [id number] CLAIRE KILLIAN APRN [facility] ([facility]) [address] [place] [phone] 10/09/2023 14:01:50 10/09/2023 14:43:26 Dysuria 10077080 R30.0 Acute urin albert tract infection 028585031 N39.0 [id number] DIANA GARCIA PA-C [facility] ([facility]) [address] [place] [phone] 5 10/13/2023 14:26:50 11/02/2023 17:06:17 Nausea and vomiting 00239507 R11.2 will see what GI finds on scopes Anemia 912371700 D64.9 INJECTIFER 750MG X 2, Acute urin albert tract infection 407056314 N39.0 MACROBID 100MG BID [id number] DIANA GARCIA PA-C [facility] ([facility]) [address] [place] [phone] 5 10/20/2023 11:55:15 10/20/2023 14:08:06 Low back pain 717725184 M54.50 d/c to home with current meds and out pt ordersF/U with me in office next week. Constipation 78571737 K5 9.00 Obstructio n of common bile duct 680494054 K83.1 thickening of CMB no CT and U/S. intermitan t emesis with white stools. [id number] DIANA GARCIA PA-C [facility] ([facility]) [address] [place] [phone] 5 10/26/2023 15:17:52 10/26/2023 17:51:16 Peripheral arterial occlusive disease 900289669 I73.9 Left common femoral artery occluded on CT scan with MADONNA .7 on the LeftHas an IVC filter in place.Toda y no evidence of critical limb ischemia. To ER if increased pain/numbn ess in leg, change in temperatur e or color Deep venou s thrombosis of lower extremity 121935547 I82.409 thrombus in R common femoral vein . IVC filter in place. Pt with recent GI bleed.Not able to anticoagul ate at this time. Iron defic iency anemia 77919730 D50.9 INJECTIFER 750MG X 2 doses 7 days apart.Hgb 8.3 at [facility] 7.14.24. recent EGD/colono scopy 10.22.23 with lavern Blanchard. Acute gastrointestinal hemorrhage 69706658 K92.2 cauterizat ion in small intestine on last EGD? per waiting on notes. Chronic pain 14446256 G8 9.29 Chronic neck pain 035170 1757 107 M54.2 Hospital i npatient stay within past 30 days 7772108148 106 Z76.89 meds reconciled . non changed today last ER records CT and [facility] with Faith Morris MA and she is to fax us her records and we are to fax her last CT, U/S liver and labs. [id number] DIANA GARCIA PA-C [facility] ([facility]) [address] [place] [address] [phone] 5 11/03/2023 14:57:45 11/03/2023 17:25:44 Iron deficiency anemia 90246195 D50.9 INJECTIFER 750MG X 2 doses 7 days apart.Hgb 8.3 at [facility] 7.14.24. recent EGD/colono scopy 10.22.23 with lavern Blanchard. Dysuria 45605986 R30.0 Tinnitus o f vascular origin 939533674 H93.A9 Deep venou s thrombosis of lower extremity 886983782 I82.409 thrombus in R common femoral vein . IVC filter in place. Pt with recent GI bleed.Not able to anticoagul ate at this time. Peripheral arterial occlusive disease 461687294 I73.9 Left common femoral artery occluded on CT scan with MADONNA .7 on the LeftHas an IVC filter in place.Toda y no evidence of critical limb ischemia. To ER if increased pain/numbn ess in leg, change in temperatur e or color [id number] DIANA GARCIA PA-C [facility] ([facility]) [address] [place] [address] [phone] 5 11/09/2023 13:55:02 12/14/2023 07:04:25 Acquired cystic dilatation of common bile duct 561670613 K83.5 Iron defic iency anemia 33125685 D50.9 Set up for injectafer on for first dose.Hgb 8.3 at [facility] 7. recent EGD/colono scopy 10.22.23 with lavern Blanchard. [id number] DIANA GARCIA PA-C [facility] ([facility]) [address] [place] [address] [phone] 5 11/10/2023 12:49:56 11/10/2023 17:31:37 [id number] DIANA GARCIA PA-C [facility] ([facility]) [address] [place] [address] 24631-441 5 11/25/2023 14:58:08 12/14/2023 07:10:16 Deep venous thrombosis of lower extremity 342214585 I82.409 thrombus in R common femoral vein . IVC filter in place. Pt with recent GI bleed Hgb are rising.I will have her to a hemoccult card. If Hgb going up and hemoccult Neg I think if ok with vascular, it would be time to try anticoagul ation with close monitoring of cbcs Iron defic iency anemia 01064150 D50.9 Set up for injectafer Hgb 8.3 at [facility] 7.14.24. recent EGD/colono scopy 10.22.23 with lavern Blanchard. [id number] DIANA GARCIA PA-C [facility] ([facility]) [address] [place] [address] 43723-765 5 12/14/2023 15:13:11 12/14/2023 17:27:18 Anemia 646338412 D64.9 Had one iron infusion needs to schedule her next one. Deep venou s thrombosis 102041574 I82.409 started Eliquis 11.30.23 Restless l egs syndrome 90502617 G25.81 Hypothyroidism 26846873 E03.9 [id number] DIANA GARCIA PA-C [facility] ([facility]) [address] [place] [address] [phone] 5 01/11/2024 11:50:16 01/17/2024 09:34:21 Cervical radiculitis 06878046 M54.12 Pain of ri ght shoulder joint 1414615342 5833888 M25.511 Peripheral vascular disease 282099562 I73.9 Dr. Dawn moreno managing her arterial disease on the L leg, her chronic DVT on the R leg and her richelle filter.05.05 he still wants her on low dose Eliquis Iron defic iency anemia 10701809 D50.9 Her injectafer is helping Last HGb 10.3 at [facility] 01/06/24.re cent EGD/colono scopy 10.22.23 with lavern Blanchard. fixed upper GI bleed. Repeat eGD 2 months later was resolved. Hospital i npatient stay within past 30 days 4124459799 106 Z76.89 meds reconciled . her eliquis was restarted. [id number] Ulysses Rivera MD [facility] ([facility]) [address] [place] [address] [phone] 5 01/20/2024 16:13:53 01/20/2024 16:54:14 [id number] DIANA GARCIA PA-C [facility] ([facility]) [address] [place] [address] [phone] 5 02/08/2024 14:21:48 02/08/2024 15:38:37 Hematemesis 3465736 K92.0 Peripheral vascular disease 243410259 I73.9 Dr. Dawn moreno managing her arterial disease on the L leg, her chronic DVT on the R leg and her richelle filter.keron faith stented her L left. check right leg. no clots. left filter in place and wants her on the Eliquis. Pneumonia 492554093 J18. 9 Hospital i npatient stay within past 30 days 5203889958 106 Z76.89 meds reconciled . her eliquis was restarted. Iron defic iency anemia 02235383 D50.9 Her injectafer is helping Last HGb 10.3 at [facility] 01/06/24.re cent EGD/colono scopy 10.22.23 with lavern Blanchard. fixed upper GI bleed. Repeat eGD 2 months later was resolved. [id number] DIANA GARCIA PA-C [facility] ([facility]) [address] [place] [address] [phone] 5 03/14/2024 12:48:46 04/04/2024 12:28:10 Anemia 445047639 D64.9 Had one iron infusion needs to schedule her next one. Acquired d ilation of bile duct 1972564191 460639 K83.8 Peripheral vascular disease 646217633 I73.9 Dr. Dawn moreno managing her arterial disease on the L leg, her chronic DVT on the R leg and her richelle filter.keron cuevas stented her L left. check right leg. no clots. left filter in place and wants her on the Eliquis. 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 19617165 M48.02 [id number] DIANA GARCIA PA-C [facility] ([facility]) [address] [place] [address] [phone] 5 04/11/2024 11:03:08 04/13/2024 12:31:09 Stasis dermatitis of lower limb due to chronic peripheral venous hypertension 320173479 I87.399 Drug-induc ed constipation 35398176 K59.03 Edema 184477863 R60.9 Idiopathic peripheral neuropathy 98854593 G60.9 Hypothyroidism 24231989 E03.9 [id number] DIANA GARCIA PA-C [facility] ([facility]) [address] [place] [address] [phone] 5 04/19/2024 14:34:02 04/24/2024 09:23:08 Obstruction of common bile duct 742228100 K83.1 thickening of CMB no CT and U/S. intermitan t emesis with white stools. Rheumatoid arthritis [address] Crabtree [employer] form filled out during today's office visit Opioid dependence 760320 00 F11.20 post cervical surgery 06/05. Getting in to Dr. Hung. Anemia 631618710 D64.9 Had one iron infusion needs to schedule her next one. Hypothyroidism 27296653 E03.9 Anxiety disorder 5116201 06 F41.9 Chronic pain syndrome 37 1722580 G89.4 Oxcontin 7.[address] Lisa. Recently increased to 10mg q 4 hrs from recent surgery. (temporary rx for [place] given waiting for Oxy to come in then d/margaret 2.8.24 KM) Peripheral vascular disease 346236982 I73.9 Dr. Dawn moreno managing her arterial disease on the L leg, her chronic DVT on the R leg and her richelle filter.keron cuevas stented her L left. check right leg. no clots. left filter in place and wants her on the Eliquis. [id number] DIANA GARCIA PA-C [facility] ([facility]) [address] [place] [address] [phone] 5 05/24/2024 14:51:15 05/24/2024 16:00:13 Chronic neck pain 1346069831 107 M54.2 getting nerve stim with DR. Grider in Jun 06 Atopic dermatitis 127868 01 L20.9 Obstructio n of common bile duct 561477324 K83.1 thickening of CMB no CT and U/S. intermitan t emesis with white stools. Administra tion of pneumococcal vaccine 10570522 Z23 Edema 552359784 R60.9 Restless l egs syndrome 38975864 G25.81 I looked up meds that can cause formicatio n and her requip is listed which she is on very high doses of. She agrees to back down from tid to bid. Chronic insomnia 5487283 04 F51.04 [id number] DIANA GARCIA PA-C [facility] ([facility]) [address] [place] [address] [phone] 5 06/13/2024 12:25:24 06/16/2024 11:56:31 Atopic dermatitis 75407871 L20.9 lower legs. likely from venous stasus Restless l egs syndrome 06573414 G25.81 I looked up meds that can cause formicatio n and her requip is listed which she is on very high doses of. She agrees to back down from 5 mg tid to bid.06/13/24 drop her from 5 mg bid to 3 mg po bid. [id number] DIANA GARCIA PA-C [facility] ([facility]) [address] [place] [address] [phone] 5 07/06/2024 14:47:05 07/10/2024 15:08:00 Peripheral venous insufficiency 21062519 I87.2 Lavern Tate Chronic neck pain 397204 0730 107 M54.2 getting nerve stim with DR. Grider Chest pain 55039790 R07. 9 Hx PAD. will refer to cardiology for consult and testing to see of she has CAD and stable angina [id number] MALIK BRUSH [facility] ([facility]) [address] [place] [address] [phone] 5 07/24/2024 11:36:22 07/24/2024 14:50:48 Wheezing 29360227 R06.2 Discussed use of prescribed medication s. VSS. If you develop new/worsen ing s/s then return for re-evaluat ion. [id number] DIANA GARCIA PA-C [facility] ([facility]) [address] [place] [address] [phone] 5 08/23/2024 14:47:46 08/23/2024 15:42:54 Acute thoracic back pain 411707939 M54.6 60981935 30 min spent with pt Chronic neck pain 474181 1130 107 M54.2 G89.29 928711 getting nerve stim with DR. Madison Grider tomorrow 08/24/24 Gastrointe stinal hemorrhage 11302068 K25.4 58652509 seeing GI next week for scopy and ERCP Dr. Chava puckett. [id number] DIANA GARCIA PA-C [facility] ([facility]) [address] [place] [address] [phone] 5 11/02/2024 14:26:10 11/02/2024 16:01:55 Cataplexy 20116787 G47.411 79969 ok to continue Effexor. Adverse re action to drug 25526299 T50.905D 23951216 she may be trying to stop her chronic use of baclofen to fast. 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 Will slowly taper her off her gabapentin as wellI suspect pt has histrionic personalit y disorder. REviewed her hospital records and they did a very good job of ruling out any physcial cause of her jerking.It would be ideal to get psych involved to help sort out her symptoms. Post-disch arge follow-up 083183244 Z09 750037 Anemia due to blood loss 797300864 D50.0 374411 recent capsule endoscopy. Dr. Larsen is working up [id number] DIANA GARCIA PA-C [facility] ([facility]) [address] [place] [address] 07319-546 5 12/01/2024 08:51:12 12/01/2024 09:46:50 Gastroesophageal reflux disease 847753001 K21.9 86211746 Primary insomnia 1954703 F51.01 03612 Peptic ulcer 53913827 K2 7.9 Chronic pain 47561020 G8 9.29 Lymphedema 001303755 I89 .0 48089 Chronic neck pain 816369 5450 107 M54.2 G89.29 0388545 getting nerve stim with DR. Madison Grider tomorrow 08/24/24 Vascular insufficiency 92572636 I87.[address] Tate manages looking to do some venous repair.Enc ouraged compressio n stockings and elevation until she can get some wraps. [id number] DIANA GARCIA PA-C [facility] ([facility]) [address] [place] [address] [phone] 5 01/11/2025 14:06:00 01/12/2025 08:44:46 Multi vessel coronary artery disease 805598874 I25.10 1112382 recent stents x 2 back to back. 01/04 need one year of dual plt asa and plavix therapy for 1 yr. Post-disch arge follow-up 935344351 Z09 890136 Exposure t o SARS-CoV-2 451503100 Z20.822 8159111703 pt left without being tested. Upper gastrointestinal bleeding 63152342 K92.2 838802 scope 03/[address] Ruiz. Scope 01/05/25 at [facility] small area of bleeding. needs plavix and ASA due to stent on 12/27/24 [id number] DIANA GARCIA PA-C [facility] ([facility]) [address] [place] [address] 02/13/2025 14:26:45 02/13/2025 15:27:07 Edema 862062139 R60.9 Upper gastrointestinal bleeding 20492351 K92.2 190047 scope 03/[address] Ruiz. Scope 01/05/25 at [facility] small area of bleeding. needs plavix and ASA due to stent on 12/27/24 Stented co ronary artery 343715037 I25.10 Z95.5 34741625 [id number] DIANA GARCIA PA-C [facility] ([facility]) [address] [place] [address] 03/15/2025 14:19:35 03/19/2025 10:38:07 Generalized anxiety disorder 85066440 F41.1 451548 monitor Benzo requests. Has several rxes xanax, valium and clonazepam from [facility] old PCP, Nerve root disorder 7227 4001 M54.12 313629 hx of the fusion C2 to t1. with new and worseing neck pain and nerve pain into the right shoulder pains. Hypokalemia 56216134 E87 .6 9791 on Kcl. was 2.9 [...] [place] - [place] - [facility] (MEDICARE) Tosha Enamorado Ranew [id number] 1 [id number] Tosha Ranew 03/19/2025 2 [employer] (MEDICARE SUPPLEMENT) Tosha Ranew [id number] Tosha Ranew 03/22/2025 1 [place] Tosha Enamorado Ranew [id number] 1 [id number] 21 Tosha Perry Notes Date Note Type [...] leg 01/2024 Dr. Rola Puckett. 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 Pelayo GI appt 9. for GI bleed f/u [facility] hospital stay: Needed a blood transfusion her in [place] before she went to [place]. Also had UTI and pneumonia at [facility] Was in hospital in [place] and had an upper GI bleed. Got a scope Hgb was 11. Has not been taking her EffexorBack down on her baclofen to BID and says she just taking her OXy BID as well and gabapentin BID. Much less shakingSays her shaking went almost all the way away after getting her blood transfusion DIANA GARCIA PA-C [address] [place], [address], [facility] - [facility], Job 12/01/2024 09:40:36 01/12/20 25 text/htm l jr [...] they saw no pneumonia DIANA GARCIA PA-C [address] [place] [address], [address], [facility] 01/11/2025 18:13:05 02/14/20 25 text/htm l [...] has a call into her GI doc. 02.06 DIANA GARCIA PA-C [address] [place], [address], [facility], DianeC. 02/13/2025 15:25:18 03/15/20 25 text/htm l Fall [...] like its grinding. DIANA GARCIA PA-C [address] [place], [address], [facility] 03/18/2025 21:21:13 03/22/20 25 text/htm l ROS [...]
--- OUTSIDE RECORDS SUMMARY | 2025-04-08 06:25 | XMS_ITS | Patient Health Record ---
Author Organization [facility] Address [address] [address] Phone [phone] Care Team Providers Care Operations Support Representative Name Role Phone Desiree Gaming MD Primary Care Provider Trip Wilcox MD, Srinivasan [facility] Reason For Referral No Information Medications [...] MG Tablet Oral 03/23/20 17 Active Creon 90055 UNIT Capsule Delayed Release Particles Oral 04/07/20 17 Active Creon 45538 UNIT Capsule Delayed Release Particles Oral 02/19/20 [...] End Date Medicare [place] MC37 [address] [place] [address] [id number] BARRY VAN Self - patient is the insured Medical (General) History Surgical History Surgery Date(Month/Year) Foot Surgery ,Status : Resolved Appendectomy ,Status : Resolved Cataract Surgery ,Status : Resolved Cholecystectomy ,Status : Resolved Eye Surgery ,Status : Resolved Gastric Surgery ,Status : Resolved Breast Surgery ,Status : Resolved Hysterectomy ,Status : Resolved
--- OUTSIDE RECORDS SUMMARY | 2025-04-08 06:25 | XMS_ITS | Patient Health Record ---
Author Organization [facility] Address [address] [facility] [address] [place] [address] Care Team Providers Care Annual Giving Director Name Role Phone Mariusz Chayo Primary Care Provider El Brewer [phone] Allergies Allergen (clinical drug ingredient) Drug/Non Drug [...] Status Risk Notes Problem Shortness of breath (021612980) Shortness of breath (R06.02) Active confirmed Problem Anxiety (84821833) Anxiety (F41.9) Active confirmed Problem Abnormal PFT: MV V reduced disproportionate to FEV1 (R94.2) Active confirmed Problem Peripheral edema (08436095) Peripheral edema (R60.9) Active confirmed Problem Restless legs syndrome (89046904) Restless leg syndrome (G25.81) Active confirmed Problem Pulmonary hypertension (69459692) Pulmonary hypertension (I27.20) Active confirmed Problem Benign neoplasm of cerebral meninges (05071480) Meningioma (D32.9) Active confirmed Problem Hypokalemia (65069235) 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) Active confirmed Problem 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
[2025-04-08 06:33] VITALS: BP 118/59; PULSE 47; O2SAT 93
== END 2025-04-08 06:46 | disposition home or self-care (01) ==
PROVIDERS: Emergency Provider Emergency Medicine; PCP Physician Assistant
DX: B86 Scabies (principal); Z79.02 Long term (current) use of antithrombotics/antiplatelets; Z79.82 Long term (current) use of aspirin; Z87.891 Personal history of nicotine dependence; I25.10 Atherosclerotic heart disease of native coronary artery without angina pectoris; E78.5 Hyperlipidemia, unspecified; N18.30 Chronic kidney disease, stage 3 unspecified
CPT/HCPCS: 99283

== ENCOUNTER 2025-04-08 06:47 | Emergency (ER) | payer MEDICARE, OTHER, SELFPAY ==
--- OUTSIDE RECORDS SUMMARY | 2019-11-06 03:51 | XMS_ITS | Continuity of Care Document ---
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 Name Role Phone Ponce Betts Unavailable Unavailable Allergies, Adverse Reactions, Alerts Substance Reaction Status Criticality AMITRIPTYLINE HCL Active No Informa tion ZINC ACETATE Active No Information DIPHENHYDRAMINE HCL Active No Infor mation Medications Medication Instructions Dosage Effective Dates (start - stop) Status Comments hydrocodone 5 mg-acetaminophen 325 mg tablet take 1 tablet by oral route every 6 hours as needed for pain as needed 1.00 tablet - Active Keppra 1,000 mg tablet take 1 tablet by oral route every 12 hours 1000 MG - Active Zofran ODT [address] 1 tablet by translingual route every 6 hours for 2 days on top of the tongue where they will dissolve, then swallow 4 MG - Active ZOCOR (unknown strength) take 1 tablet by oral route every day in the evening Not Available - Active omeprazole 40 mg capsule,delayed release take 1 capsule by oral route every day before a meal 40 MG - Active gabapentin 600 mg tablet take 1 tablet by oral route 3 times every day 600 MG - Active furosemide 40 mg tablet take 1 tablet by oral route every day 40 MG - Active levothyroxine 112 mcg tablet take 1 tablet by oral route every day 112 MCG - Active Requip 3 mg tablet take 1 tablet by oral route every day 3 MG - Active Procedures Procedure Date OFFICE/OUTPATIENT VISIT, [facility] INITIAL HOSPITAL CARE SUBSEQUENT HOSPITAL CARE EXTREMITY STUDY OFFICE/OUTPATIENT VISIT, EST PROTHROMBIN TIME EXTREMITY STUDY EXTREMITY STUDY INPATIENT CONSULTATION SUBSEQUENT HOSPITAL CARE Advance Directives Directive Yes / No Effective Date File Name No Information Encounters Encounter Description Practice Location Reason(s) For Visit Diagnoses Date Provider Providers Copied on Encounter [facility], [facility] [address], [id number], [place] tel: [phone] [facility] No Information [address] [facility], [facility] [address] [place], [id number] , [place]. tel: [phone] Referring Provider: Deedee Lee, [facility], [place], [address]. tel:[phone] OFFICE/OUTPAT IENT VISIT, NEW [facility], [facility] [address], [id number], [place] tel: [phone] [facility] Left leg pain - ? vascular (chief complaint) Iron deficiency anemia due to chronic blood lossLower extremity pain, leftEssential hypertensionCh ronic dental caries extending to pulp 8 Milind Hernandez. [address] [facility], [address] [facility], [place], [place], [id number] , [place]. tel: [phone] Referring Provider: Deedee Lee, [address] [facility], [place], [address]. tel:[phone] [facility], [facility] [address], [id number], [place] tel:[phone] [facility] DiabetesBenign essential HTNTobacco use disorder 5 Kareem Kim . [address] [facility], [facility] [address], [place], [id number] , [place]. tel: [phone] Referring Provider: Otilio North, [address] [place] [address], [place], [address]. tel:[phone] [facility], [facility] [address], [place], [id number], [place] tel: [phone] [facility] No Information 4 Milind Hernandez. [address] [facility], [address], [id number] , [place]. tel: [phone] INITIAL HOSPITAL CARE [facility], [address] [place] [address], [place], [place], [id number], [place] tel: [phone] [facility] No Information [address] [facility] [address], [id number] , [place]. tel: [phone] Referring Provider: David Mccormick, [address] [place] [address], [place], [address]. tel: [phone] SUBSEQUENT HOSPITAL CARE [facility], [address] [place] [address], [id number], [place] tel: [phone] [facility] No Information 1 Marino agudelo. [address] [place] [address], [id number] , [place]. tel: [phone] Referring Provider: Boyd Khoury, [facility]0 [place] [address], [place], [address]. tel: [phone] [facility], [address] [place] [address], [id number], [place] tel: [phone] [facility] No Information [address] [facility] [address], [id number] , [place]. tel: [phone] Referring Provider: David Mccormick, [facility] [address], [address]. tel:[phone] OFFICE/OUTPAT IENT VISIT, EST [facility], [address] [place] [address], [id number], [place] tel:[phone] [facility] No Information 0 Kareem Kim . [facility], [place] [address] [place] [address], [id number] , . tel: [phone] Referring Provider: David Mccormick, [address] [place] [address] [place] [address], [address]. tel:[phone] [facility], [address] [place] [address], [id number], tel:[phone] [facility] No Information 0 Milind Hernandez. [address] [place] [address], [id number] , . tel: [phone] Referring Provider: David Mccormick, [address] [place] [address], [address]. tel:[phone] INPATIENT CONSULTATION [facility], [address] [place] [address], [id number], tel:[phone] [facility] No Information 0 Milind Hernandez. [address] [place] [address], [id number] , . tel: [phone] Referring Provider: Aramis Su, [address], [address]. tel:[phone] Family History Family Member Type Diagnosis Age At Onset Mother Problem (finding) hypertension Problem (finding) Family history of Cardiovascular disease / Mother Brother Problem (finding) Diabetes mellitus Problem (finding) Family history of coronary arteriosclerosis Payers Payer name Insurance type Covered libertarian ID Authoriza tion(s) [employer] Choice Medicare Plan [id number] Social History Type Description Quantity Date Captured Comments Alcohol Use Details Unknown Caffeine Use Details Unknown Tobacco Use Status No Information Smoking Status No Information Sex Female Chief Complaint And Reason For Visit No Information Reason For Referral Reason For Referral No Information Plan Of Treatment Date Type Action Status Goal Hemoglobin A1C. Due on due Goal Foot exam. Due on 0 due Goal Lipid panel. Due on due Goal Dental exam. Due on due Goal Depression screening. Due on due Goal Dilated eye exam. Due on Oct due Goal GFR. Due on due Goal Influenza vaccine. Due on due Goal Pneumococcal vaccine. Due on due Goal Urine microalbumin. Due on due Goal BMP. Due on due Goal ECG. Due on due Goal Urinalysis . Due on due Goal Hemoglobin A1C. Due on due Goal Foot exam. Due on 8 due Goal Lipid panel. Due on 018 due Goal BMP. Due on due Patient Education Heart-Healthy Diet: Car e Instructions completed History Of Present Illness Encounter Date Complaint History Of Prese nt Illness Left leg pain - ? vascular 62 yo female who has remote history of cath assoc left ax subclavian dvt presents to clinic to rule out a vascular etiology of her left leg pain which began several weeks ago after a car ride back to [place] from [facility]. Pain unrelenting - rest or walking radiating down the post lat asp of thigh on to lat aspect of lower leg. No color or temperature change. Intially pain associated with swelling AK and BK left leg but that resolved 48 hours after trip. 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 She denies any history of PAD symptomatology. Functional Status Date Functional Assessmen t No Information Instructions Date Instruction Additional Infor mation No Information Assessments Type Assessment Date No Information Patient Care Teams Name Effective Dates (start - stop) Status Members No Information
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
--- OUTSIDE RECORDS SUMMARY | 2025-04-08 06:54 | XMS_ITS | Clinical Summary ---
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
[2025-04-08 06:56] VITALS: BP 103/60; PULSE 60; RESP 16; TEMP 36.8; O2SAT 96; BMI 23.1
--- NOTE | 2025-04-08 07:04 | W.ED.NAVMDI ---
HPI - Nausea/Vomiting/Diarrhea General: Chief complaint: Nausea/Vomiting/Diarrhea Stated complaint: vomitting Time Seen by Provider: 04/08/25 06:58 Source: patient Mode of arrival: ambulatory Limitations: no limitations History of Present Illness: 70-year-old female who was just seen in the ER and discharged states that when she got to the waiting room she started feeling nauseous she claims that she vomited but there is no vomitus seen in her vomit bag at this time. Has had history of nausea in the past she denies any pain denies any worse improving factors. Associated nausea: Yes Associated symtoms: Reports nausea Related Data Home Medications ?Medication ?Instructions ?Recorded ?Confirmed fluticasone propionate 50 1 spray intranasal BID PRN 09/27/23 03/15/25 mcg/actuation nasal allergies spray,suspension oxycodone 10 mg tablet 10 mg PO Q8H PRN Pain 12/29/23 03/15/25 ramelteon 8 mg tablet 8 mg PO BEDTIME 12/24/24 03/15/25 promethazine 25 mg tablet 25 mg PO Q6H PRN Nausea 01/03/25 03/15/25 lidocaine 5 % topical patch 1 patch topical [id number] PRN Pain 01/05/25 03/15/25 aspirin 81 mg tablet,delayed 81 mg PO DAILY 02/14/25 03/15/25 release atorvastatin 40 mg tablet 40 mg PO BEDTIME 02/14/25 03/15/25 folic acid 1 mg tablet 1 mg PO DAILY 02/14/25 03/15/25 furosemide 20 mg tablet 40 mg PO QAM 02/14/25 03/15/25 nitroglycerin 0.4 mg sublingual See Rx Instructions .Route .COMPLEX 02/14/25 03/15/25 tablet furosemide 40 mg tablet 40 mg PO DAILY 03/07/25 03/15/25 Previous Rx's ?Medication ?Instructions ?Recorded Bone growth stimulator #1 ea 01/22/23 Bone growth stimulator #1 ea 02/05/23 tens unit for cervical #1 ea 12/16/23 insulin syringes (disposable) 1 mL #25 ea 05/30/24 ropinirole 5 mg tablet 5 mg PO BID #270 tabs 10/25/24 baclofen 10 mg tablet 5 mg (1/2 x 10 mg) PO Q12H PRN 11/07/24 Muscle Spasm #30 tabs clopidogrel 75 mg tablet 75 mg PO DAILY 30 days #30 tabs 12/26/24 pantoprazole 40 mg tablet,delayed 40 mg PO Q12H 30 days #60 tabs 12/26/24 release (Protonix) potassium chloride 20 mEq 20 meq PO DAILY #30 tabs 12/26/24 tablet,extended release ranolazine 500 mg tablet,extended 500 mg PO BID #180 tabs 01/01/25 release,12 hr albuterol sulfate 90 mcg/actuation 2 inh inhalation Q4H PRN shortness 01/03/25 aerosol inhaler of breath or wheezing #18 grams adalimumab 40 mg/0.4 mL 40 mg (0.4 mL) SUBCUT Q14D #2 ea 02/07/25 subcutaneous syringe kit (Humira(CF)) levothyroxine 125 mcg tablet 125 mcg PO DAILY #30 tabs 02/13/25 ferrous sulfate 325 mg (65 mg 325 mg PO DAILY #90 tabs 03/09/25 iron) tablet (Iron (ferrous sulfate)) gabapentin 300 mg capsule 200 mg (0.6667 x 300 mg) PO TID 90 03/09/25 days #180 caps sucralfate 1 gram tablet 1 g PO Q6H 60 days #240 tabs 03/09/25 buspirone 7.5 mg tablet 7.5 mg PO BID #60 tabs 03/15/25 ondansetron 4 mg disintegrating 4 mg PO Q6H PRN nausea and 03/27/25 tablet vomiting #14 tabs ondansetron 4 mg disintegrating 4 mg PO Q6H PRN nausea and 04/08/25 tablet vomiting #14 tabs permethrin 5 % topical cream 1 applic topical Q14D 2 doses #60 04/08/25 (Elimite) grams Allergies Allergy/AdvReac Type Severity Reaction Status Date / Time venlafaxine (From Effexor) Allergy Severe ADR-Agitate Verified 04/08/25 06:24 d ibuprofen Allergy Unknown ADR-Anxiety Verified 04/08/25 06:24 tizanidine Allergy Unknown Unknown Verified 04/08/25 06:24 acetaminophen Allergy ADR-Anxiety Verified 04/08/25 06:24 amitriptyline Allergy ADR-Agitate Verified 04/08/25 06:24 d diphenhydramine (From Allergy ADR-Agitate Verified 04/08/25 06:24 Benadryl) d metoclopramide (From Reglan) Allergy ADR-Agitate Verified 04/08/25 06:24 d morphine Allergy ADR-Halluci Verified 04/08/25 06:24 nating prochlorperazine (From Allergy Unknown Verified 04/08/25 06:24 Compazine) leflunomide AdvReac Intermediate GI adverse Verified 04/08/25 06:24 reactions sulfasalazine AdvReac Intermediate ADR-Nausea Verified 04/08/25 06:24 and acid reflux Review of Systems GI: Reports: nausea PFSH ED PFSH: Medical History (Updated 04/08/25 @ 07:05 by Coral Oconnor MD) Hypothyroidism Rheumatoid arthritis flare Coronary artery disease involving [place] coronary artery of [place] heart without angina pectoris Pneumonia DVT (deep venous thrombosis) Acute GI bleeding History of deep vein thrombosis GERD (gastroesophageal reflux disease) Pre-operative clearance Acute anemia Hematoma complicating a procedure Cervical adenopathy GI bleed Osteoarthritis, shoulder Cervical spondylosis with myelopathy GERD with esophagitis Allergic rhinitis due to allergen RLS (restless legs syndrome) Substance or medication-induced sleep disorder, insomnia type Anxiety and depression High risk medication use Seropositive rheumatoid arthritis of multiple sites Extrapyramidal and movement disorder CKD (chronic kidney disease) stage 3, GFR 30-59 ml/min Lung nodule, solitary Prediabetes Hyperlipidemia Iron deficiency anemia Surgical History S/P insertion of IVC (inferior vena caval) filter Status post cervical spinal fusion History of cholecystectomy History of appendectomy History of delivery History of hysterectomy with bilateral oophorectomy History of ankle surgery left Previous back surgery Social History Smoking and tobacco/nicotine status: former use of tobacco/nicotine Quit status (tobacco/nicotine): has quit using Year quit tobacco: 2009 Former quit date comment: Smoked for 9 months Alcohol intake: current Alcohol intake frequency: holidays/special occasions only Substance/Drug Use: never Additional social history: Patient tells me that after her accident she is chronically on oxycodone 10 mg 3 times daily. She is recently full code on 12/24/2024 admission Physical Exam Const: COMMON NORMALS: no acute distress, patient oriented x3 and healthy appearing HENMT: COMMON NORMALS: normocephalic and atraumatic HEAD & SCALP: normocephalic and atraumatic Eye: COMMON NORMALS: conjunctivae normal CONJUNCTIVA: Yes conjunctivae normal Neck/C-Spine: COMMON NORMALS: full ROM and supple Chest: COMMONS NORMALS: normal inspection of the chest Resp: COMMON NORMALS: normal respiratory effort, No retractions, No use of accessory muscles and clear to auscultation bilaterally AUSCULTATION: clear to auscultation bilaterally Cardio: COMMON NORMALS: regular rate, regular rhythm and No murmurs present (Cardio) RATE: regular rate RHYTHM: regular rhythm GI: COMMON NORMALS: Normal to inspection, nondistended, normoactive bowel sounds present, Soft to palpation, non-tender and no masses PALPATION: Yes Soft to palpation Extremity: COMMON NORMALS: full ROM Neuro: COMMON NORMALS: patient oriented x3, moves all extremities and no focal motor deficits Psych: COMMON NORMALS: mental status grossly normal, Normal thought process present and cooperative THOUGHT PROCESS: Normal thought process present Skin: COMMON NORMALS: no wounds Course Vital Signs: Vital signs: Vital Signs Temperature 98.3 F 04/08/25 06:56 Pulse Rate 60 04/08/25 06:56 Respiratory Rate 16 04/08/25 06:56 Blood Pressure 103/60 04/08/25 06:56 Pulse Oximetry 96 04/08/25 06:56 Oxygen Delivery Me thod Room Air 04/08/25 06:56 MDM - Nausea/Vomiting/Diarrhea Medical Decision Making Patient presents here with nausea she has not had any vomiting here she is well-appearing with normal vitals no signs of obstruction or GI bleed. She feels improved after Ativan she is stable for discharge is here to take her home. Medical Records I reviewed the patient's medical records. No radiology studies performed this visit Discharge Plan Discharge Patient Disposition: Home Clinical Impression: Nausea & vomiting Condition: Stable Prescriptions: New ondansetron 4 mg tablet,disintegrating 4 mg PO Q6H PRN (Reason: nausea and vomiting) Qty: 14 0RF No Action (DME) tens unit for cervical See Rx Instructions .Route .MEDSUPPLY Qty: 1 0RF Rx Instructions: As directed (DME) Bone growth stimulator See Rx Instructions .Route .MEDSUPPLY Qty: 1 0RF Rx Instructions: As directed (DME) Bone growth stimulator See Rx Instructions .Route .MEDSUPPLY Qty: 1 0RF Rx Instructions: As directed (DME) insulin syringes (disposable) 1 mL syringe See Rx Instructions .ROUTE .MEDSUPPLY Qty: 25 3RF Rx Instructions: As directed Humira(CF) 40 mg/0.4 mL syringe kit 40 mg SUBCUT Q14D Qty: 2 5RF levothyroxine 125 mcg tablet 125 mcg PO DAILY Qty: 30 0RF oxycodone 10 mg tablet 10 mg PO Q8H PRN (Reason: Pain) ropinirole 5 mg tablet 5 mg PO BID Qty: 270 0RF ramelteon 8 mg tablet 8 mg PO BEDTIME clopidogrel 75 mg tablet 75 mg PO DAILY 30 Days Qty: 30 0RF pantoprazole [Protonix] 40 mg tablet,delayed release (DR/EC) 40 mg PO Q12H 30 Days Qty: 60 0RF potassium chloride 20 mEq tablet extended release 20 meq PO DAILY Qty: 30 0RF promethazine 25 mg tablet 25 mg PO Q6H PRN (Reason: Nausea) albuterol sulfate 90 mcg/actuation HFA aerosol inhaler 2 inh INHALATION Q4H PRN (Reason: shortness of breath or wheezing) Qty: 18 0RF lidocaine 5 % adhesive patch,medicated 1 patch topical [id number] PRN (Reason: Pain) furosemide 20 mg tablet 40 mg PO QAM atorvastatin 40 mg tablet 40 mg PO BEDTIME aspirin 81 mg tablet,delayed release (DR/EC) 81 mg PO DAILY nitroglycerin 0.4 mg tablet, sublingual See Rx Instructions .ROUTE .COMPLEX Rx Instructions: DISSOLVE 1 TABLET UNDER THE TONGUE EVERY 5 MINUTES NEEDED FOR CHEST PAIN. DO NOT EXCEED A TOTAL OF 3 DOSES IN 15 MINUTES. folic acid 1 mg tablet 1 mg PO DAILY furosemide 40 mg tablet 40 mg PO DAILY sucralfate 1 gram Tablet 1 g PO Q6H 60 Days Qty: 240 0RF gabapentin 300 mg capsule 200 mg PO TID 90 Days Qty: 180 0RF ferrous sulfate [Iron (ferrous sulfate)] 325 mg (65 mg iron) tablet 325 mg PO DAILY Qty: 90 0RF ondansetron 4 mg tablet,disintegrating 4 mg PO Q6H PRN (Reason: nausea and vomiting) Qty: 14 0RF permethrin [Elimite] 5 % cream 1 applic topical Q14D Qty: 60 0RF Rx Instructions: apply second treatment 14 days after first treatment if live lice remain fluticasone propionate 50 mcg/actuation spray,suspension 1 spray INTRANASAL BID PRN (Reason: allergies) baclofen 10 mg tablet 5 mg PO Q12H PRN (Reason: Muscle Spasm) Qty: 30 0RF ranolazine 500 mg Tablet Extended Release 12 Hr 500 mg PO BID Qty: 180 0RF buspirone 7.5 mg tablet 7.5 mg PO BID Qty: 60 0RF Discharge Orders: Discharge ED (Routine); Ordered 04/08/25 Ordered By: Coral Oconnor Referrals: Diana Garcia PA [Primary Care Provider, [facility]] Discharge Diet: Advance as tolerated Discharge Activity: Resume usual activity Patient Instructions: Acute Nausea and Vomiting (ED) Print Language: German Coding Level of Care Code ED [employer] for Maribel Sweet
[2025-04-08] MEDS: LORazepam 2 mg/mL INJ 1 mL 1 MG IM (07:06)
== END 2025-04-08 07:19 | disposition home or self-care (01) ==
PROVIDERS: Emergency Provider Emergency Medicine; PCP Physician Assistant
DX: R11.2 Nausea with vomiting, unspecified (principal); Z79.02 Long term (current) use of antithrombotics/antiplatelets; Z79.82 Long term (current) use of aspirin; Z87.891 Personal history of nicotine dependence; I25.10 Atherosclerotic heart disease of native coronary artery without angina pectoris; E78.5 Hyperlipidemia, unspecified; N18.30 Chronic kidney disease, stage 3 unspecified
CPT/HCPCS: 96372; 99284; J2060